=== PATIENT | female | born 1940 ===

== ENCOUNTER 2016-12-21 13:25 | Inpatient (IN) | payer MEDICAID ==
[2016-12-21 13:25] VITALS: BMI 32.8
--- NOTE | 2016-12-21 13:58 | ED PDOC ---
HPI: Female Pain Time Seen by Provider: 12/21/16 13:37 Chief Complaint (Nursing): Female Genitourinary History Per: Patient History/Exam Limitations: no limitations Additional Complaint(s): 76-year-old female, PMHx includes Anemia, Anxiety, Arthritis, Asthma, CAD, CHF, Diabetes, Hypertension, Hypercholesterolemia, Hyperlipidemia, Hypothyroidism, and Peripheral Edema, presents to the emergency department via EMS with complaints of dysuria, and urinary frequency for the past three days. Patient notes a Hx of multiple UTIs in the past. Patient is also complaining of intermittent shortness of breath for the past few days. Denies vomiting, abdominal pain, chest pain, cough, or any other associated symptoms. Past Medical History Reviewed: Historical Data, Nursing Documentation, Vital Signs Vital Signs: Last Vital Signs Temp 99.0 F 12/21/16 13:32 Pulse 63 12/21/16 13:32 Resp 24 12/21/16 13:32 BP 199/77 H 12/21/16 13:32 Pulse Ox 99 12/21/16 13:32 - Medical History PMH: Anemia, Anxiety, Arthritis, Asthma, Back Problems, CAD, CHF, Depression, Diabetes, Gastritis, HTN, Hypercholesterolemia, Hyperlipidemia, Hypothyroidism, Peripheral Edema, Chronic Kidney Disease Denies: COPD, HIV, Rheumatoid Arthritis - Surgical History Surgical History: CABG (x4), Cholecystectomy, Coronary Stent - Family History Family History: States: Unknown Family Hx - Home Medications Home Medications: Ambulatory Orders Medication Instructions Recorded Aspirin [Aspirin EC] 81 mg PO DAILY 12/18/14 Ranolazine [Ranexa] 1,000 mg PO BID 12/18/14 Atorvastatin Calcium [Lipitor] 40 mg PO HS 10/01/15 Nitroglycerin [Nitrostat] 0.4 mg PO Q5MIN PRN 10/01/15 Acetaminophen with Codeine 1 tab PO TID PRN 02/13/16 [Tylenol with Codeine #3 Tablet] Bisacodyl [Correctol] 5 mg PO DAILY 02/13/16 Carvedilol [Coreg] 3.125 mg PO Q12H 02/13/16 Loratadine [Claritin] 10 mg PO DAILY 02/13/16 Levothyroxine [Synthroid] 100 mcg PO DAILY 04/07/16 Lisinopril [Prinivil] 5 mg PO DAILY 04/07/16 ALPRAZolam [Xanax] 0.25 mg PO HS PRN 07/15/16 Albuterol 0.083% [Albuterol 0.083% 3 ml IH Q8H PRN 07/15/16 Inhal Radha (2.5 mg/3 ml) UD] Insulin Human (NPH)/Regular 25 unit SC QAM 07/15/16 [Novolin 70/30 (70/30 units/ml) 10 ml] Torsemide [Demadex] 50 mg PO Q48H 07/15/16 Albuterol/Ipratropium [Duoneb 3 1 ea IH Q4H PRN #0 neb 07/16/16 MG/3 Ml-0.5 MG/3 Ml 3 Ml] Levofloxacin [Levaquin] 500 mg PO DAILY #0 tablet 07/16/16 Promethazine DM [Phenergan DM 5 ml PO Q6H PRN #0 cup 07/16/16 Syrup] Meclizine [Meclizine*] 25 mg PO Q6 PRN #15 tab 11/16/16 Ciprofloxacin HCl [Cipro] 500 mg PO BID #20 tab 12/21/16 - Allergies Allergies/Adverse Reactions: Allergies Allergy/AdvReac Type Severity Reaction Status Date / Time kiwi Allergy Mild RASH Verified 11/16/16 12:14 morphine Allergy Mild RASH Verified 11/16/16 12:14 Penicillins Allergy Mild RASH Verified 11/16/16 12:14 pineapple Allergy Mild RASH Verified 11/16/16 12:14 watermelon Allergy Mild RASH Verified 11/16/16 12:14 Review of Systems ROS Statement: Except As Marked, All Systems Reviewed And Found Negative Constitutional: Negative for: Fever, Chills Cardiovascular: Negative for: Chest Pain Respiratory: Positive for: Shortness of Breath. Negative for: Cough Gastrointestinal: Negative for: Nausea, Vomiting, Abdominal Pain Genitourinary Female: Positive for: Dysuria, Frequency. Negative for: Vaginal Discharge, Vaginal Bleeding Musculoskeletal: Negative for: Back Pain Skin: Negative for: Rash Physical Exam - Reviewed Nursing Documentation Reviewed: Yes Vital Signs Reviewed: Yes - Physical Exam Appears: Positive for: Non-toxic, No Acute Distress Head Exam: Positive for: ATRAUMATIC, NORMOCEPHALIC Skin: Positive for: Warm, Dry. Negative for: Rash Eye Exam: Positive for: Normal appearance Neck: Positive for: Painless ROM Cardiovascular/Chest: Positive for: Regular Rate, Rhythm Respiratory: Positive for: Rales (minimal, B/L bases). Negative for: Accessory Muscle Use, Respiratory Distress Gastrointestinal/Abdominal: Positive for: Soft. Negative for: Tenderness Back: Negative for: L CVA Tenderness, R CVA Tenderness Extremity: Positive for: Normal ROM. Negative for: Pedal Edema Neurologic/Psych: Positive for: Alert, Oriented - ECG O2 Sat by Pulse Oximetry: 99 Medical Decision Making Medical Decision Making: Impression: dysuria, frequency. shortness of breath Plan: * Chest X-Ray * Urinalysis * Reassess and Disposition Scribe Attestation: Documented by Charis Bernal acting as a scribe for Deep De La Garza MD. Provider Attestation: All medical record entries made by the Scribe were at my direction and personally dictated by me. I have reviewed the chart and agree that the record accurately reflects my personal performance of the history, physical exam, medical decision making, and the department course for this patient. I have also personally directed, reviewed, and agree with the discharge instructions and disposition. Disposition - Clinical Impression Clinical Impression: UTI (urinary tract infection) - Patient ED Disposition Is Patient to be Admitted: No Counseled Patient/Family Regarding: Studies Performed, Diagnosis, Need For Followup, Rx Given - Disposition Referrals: Josh Briscoe MD [Medical Doctor] - Disposition: Routine/Home Disposition Time: 16:04 Condition: FAIR Prescriptions: Ciprofloxacin HCl [Cipro] 500 mg PO BID #20 tab Instructions: Urinary Tract Infection in Women (ED)
[2016-12-21] MEDS ORDERED: Ciprofloxacin 400mg/200ml D5W 200 ML IVPB STA (16:23)
--- NOTE | 2016-12-21 16:26 | RAD ---
HISTORY: Shortness of breath COMPARISON: 07/27/2016 TECHNIQUE: Chest PA and lateral FINDINGS: LUNGS: There is mild pulmonary venous congestion. There is no focal consolidation PLEURA: No significant pleural effusion identified. No pneumothorax apparent. CARDIOVASCULAR: The heart is normal in size. Status post CABG. OSSEOUS STRUCTURES: No significant abnormalities. VISUALIZED UPPER ABDOMEN: Normal. OTHER FINDINGS: None. IMPRESSION: Mild pulmonary venous congestion. No active pulmonary disease.
[2016-12-21] MEDS ORDERED: Ciprofloxacin 400mg/200ml D5W 200 ML IVPB ONE (16:50)
[2016-12-21 17:30] LABS: VENOUS BLOOD GAS BASE EXCESS 6.8 mmol/L (0.0-2.0); VENOUS BLOOD GAS MODE ROOM AIR; VENOUS BLOOD GAS PCO2 71 mmHg (40-60); VENOUS BLOOD PH 7.31 (7.32-7.43)
[2016-12-21 17:50] LABS: BASO # 0.1 K/uL (0.0-0.2); BASO % 0.8 % (0.0-2.0); EOS # 0.4 K/uL (0.0-0.7); EOS % 5.4 % (0.0-4.0); HEMATOCRIT 36.5 % (34.0-47.0); LYMPH # 2.1 K/uL (1.0-4.3); LYMPH % 28.6 % (20.0-40.0); MEAN CELL VOLUME 97.3 fl (81.0-99.0); MEAN CORPUSCULAR HEMOGLOBIN 31.6 pg (27.0-31.0); MEAN CORPUSCULAR HGB CONC 32.4 g/dL (33.0-37.0); MONO # 0.5 K/uL (0.0-0.8); NEUT # 4.4 K/uL (1.8-7.0); NEUT % 58.2 % (50.0-75.0); WHITE BLOOD COUNT 7.5 K/uL (4.8-10.8)
[2016-12-21 18:02] LABS: BILIRUBIN,TOTAL 0.7 mg/dl (0.2-1.3); CALCIUM 9.1 mg/dL (8.4-10.2)
[2016-12-21] MEDS ORDERED: Acetaminophen-Codeine 300/30 mg Tab ONE (18:44)
[2016-12-21] MEDS ORDERED: Acetaminophen-Codeine 300/30 mg Tab PO PRN ×3 (18:46→21:36)
[2016-12-21] MEDS ORDERED: Promethazine DM 6.25 mg-15 mg/5 ml Syrup PO PRN (21:01)
[2016-12-21] MEDS ORDERED: Albuterol-Ipratrop 3 mg / 0.5 (3 ml) UD INH PRN (21:06)
[2016-12-21] MEDS: Ciprofloxacin 400mg/200ml D5W 200 ML IVPB SCH (22:27)
[2016-12-22] MEDS: Levothyroxine 100 MCG TAB PO SCH (06:33)
[2016-12-22 07:04] LABS: BILIRUBIN,TOTAL 0.6 mg/dl (0.2-1.3); TOTAL PROTEIN 6.2 G/DL (6.3-8.2)
[2016-12-22 07:05] LABS: HEMATOCRIT 33.9 % (34.0-47.0); MEAN CELL VOLUME 95.8 fl (81.0-99.0); MEAN CORPUSCULAR HGB CONC 33.4 g/dL (33.0-37.0); RED CELL DISTRIBUTION WIDTH 13.9 % (11.5-14.5); WHITE BLOOD COUNT 7.9 K/uL (4.8-10.8)
[2016-12-22 07:23] LABS: T4 9.38 ug/dl (5.5-11.0)
[2016-12-22 07:34] LABS: THYROID STIMULATING HORMONE 3.08 mIU/ML (0.46-4.68)
[2016-12-22 07:42] LABS: POTASSIUM 5.5 MMOL/L (3.6-5.0)
[2016-12-22] MEDS: Albuterol-Ipratrop 3 mg / 0.5 (3 ml) UD INH SCH ×3 (07:48→19:54)
[2016-12-22] MEDS: Bisacodyl 5mg EC Tab PO SCH (08:41)
[2016-12-22] MEDS: Insulin Lispro Mix 75/25 100 units/ml (HumaLog) 10ml SC SCH (08:42)
[2016-12-22] MEDS: Ciprofloxacin 400mg/200ml D5W 200 ML IVPB SCH ×2 (08:51→20:32)
[2016-12-22] MEDS ORDERED: [UNRECOGNIZED DRUG - MIXTURE] SC SCH (09:00)
[2016-12-22] MEDS ORDERED: BISACODYL 5 MG PO SCH (09:00)
[2016-12-22] MEDS ORDERED: Sod Polystyrene Sulf 15 gm/60 ml Oral Susp PO ONE (10:53)
--- NOTE | 2016-12-22 14:09 | CARD ---
APPROVED REPORT EKG Measurement Heart [id number] <Conclusion> Normal sinus rhythm Normal ECG
--- NOTE | 2016-12-22 14:18 | CP.PCM.HP ---
History of Present Illness - History of Present Illness History of Present Illness: CC: Left flank pain. 76y/o F, brought to ER [facility] via EMS for evaluation of L flank pain. As per Pt; Left flank pain associated with pain during urination, feels like burning, pain of moderate to severe intensity 8:10, symptoms have been ongoing for 3 days [employer] with no relief. Aggravated symptoms: Urinary urgency, frequency , weakness, also c/o of intermittent SOB for few days, no cough. Aggravated factor: Pt is wheelchair bound. Pt denied: Fever, chills, n/v/d, syncope, CP,cough, sick contact, recent travel. 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 EKG shows: Normal sinus rhythm. CXR shows: Mild Pulmonary venous congestion. No active disease. U C-S Grand negative jered. In ER: BS= [id number]. Present on Admission - Present on Admission Any Indicators Present on Admission: Yes History of Uncontrolled Diabetes: Yes Review of Systems - Constitutional Constitutional: Weakness (L/E), Other (negative) - EENT Eyes: Loss of Vision (Left) Ears: Decreased Hearing (R side) Nose/Mouth/Throat: Other (negative) - Cardiovascular Cardiovascular: Other (negative) - Respiratory Respiratory: Dyspnea. absent: Cough - Gastrointestinal Gastrointestinal: Other (Left flank pain) - Genitourinary Genitourinary: Dysuria, Urinary Incontinence, Urinary Frequency, Urinary Urgency - Musculoskeletal Musculoskeletal: Back Pain - Integumentary Integumentary: Other (Redness in Sacrum, heels) - Neurological Neurological: Weakness (lower extremities.) - Psychiatric Psychiatric: Anxiety - Endocrine Endocrine: Other (negative) - Hematologic/Lymphatic Hematologic: Other (negative) Past Patient History - Infectious Disease Hx of Infectious Diseases: None - Past Medical History & Family History Past Medical History?: Yes Pertinent Family History: Unknown. 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 - RENAL Hx Chronic Kidney Disease: Yes - ENDOCRINE/METABOLIC Hx Endocrine Disorders: Yes Hx Diabetes Mellitus Type 2: Yes Hx Hypothyroidism: Yes - HEMATOLOGICAL/ONCOLOGICAL Hx Blood Disorders: No Hx AIDS: No Hx Anemia: Yes Hx Human Immunodeficiency Virus (HIV): No - INTEGUMENTARY Hx Dermatological Problems: No - MUSCULOSKELETAL/RHEUMATOLOGICAL Hx Musculoskeletal Disorders: Yes Hx Arthritis: Yes Hx Back Pain: Yes Hx Falls: Yes - GASTROINTESTINAL Hx Gastritis: Yes - GENITOURINARY/GYNECOLOGICAL Hx Genitourinary Disorders: Yes Hx Urinary Tract Infection: Yes - PSYCHIATRIC Hx Psychophysiologic Disorder: Yes Hx Anxiety: Yes Hx Substance Use: No - SURGICAL HISTORY Hx Cholecystectomy: Yes Hx Coronary Artery Bypass Graft: Yes (x4) Hx Coronary Stent: Yes Other/Comment: left TMA - ANESTHESIA Hx Anesthesia: Yes Hx Anesthesia Reactions: No Hx Malignant Hyperthermia: No Meds Home Medications: Home Medication List Medication Instructions Recorded Confirmed Type Ciprofloxacin HCl [Cipro] 500 mg PO BID #20 tab 12/21/16 Rx Allergies/Adverse Reactions: Allergies Allergy/AdvReac Type Severity Reaction Status Date / Time kiwi Allergy Mild RASH Verified 11/16/16 12:14 morphine Allergy Mild RASH Verified 11/16/16 12:14 Penicillins Allergy Mild RASH Verified 11/16/16 12:14 pineapple Allergy Mild RASH Verified 11/16/16 12:14 watermelon Allergy Mild RASH Verified 11/16/16 12:14 Physical Exam - Constitutional Appears: No Acute Distress, Chronically Ill - Head Exam Head Exam: NORMAL INSPECTION - Eye Exam Eye Exam: PERRL (R eye, Left eye legally blind.) - ENT Exam Additional comments: Hard of hearing R side. - Neck Exam Neck exam: Positive for: Normal Inspection - Respiratory Exam Respiratory Exam: Decreased Breath Sounds (at bases) - Cardiovascular Exam Cardiovascular Exam: REGULAR RHYTHM - GI/Abdominal Exam GI & Abdominal Exam: Normal Bowel Sounds, Soft - Extremities Exam Additional comments: L TMA, mild tenderness R-L knee. Redness R-L heel. Ecchymosis U/E. - Back Exam Back exam: tenderness (L-S) Additional comments: Sacrum redness - Neurological Exam Neurological exam: Alert, Oriented x3 Additional comments: Weakness lower extremities, moves well all extremities against gravity, decreased sensation distal legs and feet. - Psychiatric Exam Psychiatric exam: Anxious - Skin Skin Exam: Warm Results - Vital Signs Recent Vital Signs: Last Vital Signs Temp 97.5 F L 12/22/16 09:02 Pulse 61 12/22/16 09:02 Resp 20 12/22/16 09:02 BP 155/67 H 12/22/16 09:02 Pulse Ox 98 12/22/16 09:02 reviewed J.P. - Labs Result Diagrams: 12/23/16 10:05 12/23/16 10:05 Labs: reviewed J.P. - EKG Data EKG comments: Reviewed J.P. - Imaging and Cardiology Chest x-ray Status: Report reviewed by me (Cheryl) Assessment & Plan (1) UTI (urinary tract infection) Status: Acute (2) Diabetes mellitus with hyperglycemia Status: Acute (3) Chronic low back pain Status: Acute (4) COPD (chronic obstructive pulmonary disease) Status: Acute (5) Hypertension Status: Acute (6) Hypothyroidism Status: Acute (7) Hypercholesterolemia Status: Acute (8) Hx of CABG Status: Acute - Assessment and Plan (Free Text) Plan: Continue Cipro, Duoneb, Coreg, Zestril, Humalog Mix 75/25, Lipitor, Lovenox, Synthroid and rest of Tx, f/u Abd/ Pelvis U-s, Renal U-S, Urology consult appreciated. - Date & Time Date: 12/22/16 Time: 11:30
[2016-12-22] MEDS: Enoxaparin 40 mg Syringe SC SCH (14:35)
--- NOTE | 2016-12-22 15:29 | CON ---
DATE: 12/22/2016 A 76-year-old female with recurrent bladder infections. Right now, the patient has a recent culture pending and is on Cipro 500 b.i.d. Because of the recurrent UTIs, CAT scan without contrast was orde red. Awaiting for the results of the culture and the CAT scan and we will follow. Hugh Briscoe MD cc: [id number] TT: 12/22/2016 15:29:03 Confirmation # [id number] Dictation # [id number] tn
--- NOTE | 2016-12-22 15:34 | CT ---
PROCEDURE: CT Abdomen and Pelvis without intravenous contrast HISTORY: Recurrent UTI COMPARISON: Comparison is made to the previous study dated 06/30/2013 TECHNIQUE: Axial and reformatted coronal and sagittal CT images of the abdomen and pelvis were obtained without IV or oral contrast administration.. Contrast Dose: 0 Radiation dose: Total exam DLP = 1105.88 mGy-cm. FINDINGS: LOWER THORAX: Again seen are small opacities at the lung bases may represent scar tissue. LIVER: No significant interval change in the liver noted since the previous exam. GALLBLADDER AND BILE DUCTS: Status post cholecystectomy. PANCREAS: Small size pancreas. No evidence of acute pathology. SPLEEN: Unremarkable. ADRENALS: Unremarkable. No mass. KIDNEYS AND URETERS: No evidence of nephrolithiasis or hydronephrosis. Small vascular calcifications seen in the left side. VASCULATURE: Unremarkable. No aortic aneurysm. BOWEL: Unremarkable. No obstruction. No gross mural thickening. Mild constipation seen. [id number] impacted rectum and sigmoid colon. APPENDIX: There is no evidence of appendicitis. PERITONEUM: Unremarkable. No free fluid. No free air. LYMPH NODES: Unremarkable. No enlarged lymph nodes. BLADDER: Unremarkable. REPRODUCTIVE: The uterus and adnexa are not visualized. BONES: No acute fracture. OTHER FINDINGS: Diffuse vascular calcifications seen. IMPRESSION: No evidence of nephrolithiasis or hydronephrosis. Mildly distended urinary bladder. [id number] constipation. No evidence of acute pathology in the abdomen and pelvis.
[2016-12-22] MEDS: Acetaminophen-Codeine 300/30 mg Tab PO PRN (21:39)
[2016-12-23] MEDS: Albuterol-Ipratrop 3 mg / 0.5 (3 ml) UD INH SCH ×3 (07:44→19:36)
[2016-12-23] MEDS: Levothyroxine 100 MCG TAB PO SCH (07:55)
[2016-12-23] MEDS: Enoxaparin 40 mg Syringe SC SCH (08:46)
[2016-12-23] MEDS: Ciprofloxacin 400mg/200ml D5W 200 ML IVPB SCH ×2 (08:46→22:18)
[2016-12-23] MEDS: Bisacodyl 5mg EC Tab PO SCH (08:47)
[2016-12-23] MEDS: Insulin Lispro Mix 75/25 100 units/ml (HumaLog) 10ml SC SCH (08:52)
--- NOTE | 2016-12-23 09:28 | US ---
HISTORY: Recurrent UTI COMPARISON: None. TECHNIQUE: Sonographic evaluation of the retroperitoneum. FINDINGS: RIGHT KIDNEY:: Measures 9.1 x 4.7cm. Normal echogenicity. No calculus, mass, or hydronephrosis. LEFT KIDNEY:: Measures 8.3 x 3.8cm. Normal echogenicity. No calculus, mass, or hydronephrosis. AORTA:: No aneurysmal dilatation. IVC:: Unremarkable. BLADDER:: Normal wall thickness. Ureteral jets visualized. OTHER FINDINGS: None . IMPRESSION: No significant or acute findings to account for/ related to the clinical presentation.
[2016-12-23 10:24] LABS: MEAN CELL VOLUME 96.4 fl (81.0-99.0); MEAN CORPUSCULAR HEMOGLOBIN 31.6 pg (27.0-31.0); MEAN CORPUSCULAR HGB CONC 32.8 g/dL (33.0-37.0); RED CELL DISTRIBUTION WIDTH 13.9 % (11.5-14.5); WHITE BLOOD COUNT 7.3 K/uL (4.8-10.8)
[2016-12-23 10:34] LABS: CALCIUM 8.6 mg/dL (8.4-10.2); POTASSIUM 4.7 MMOL/L (3.6-5.0)
[2016-12-23] MEDS ORDERED: Dextrose 50% SYRINGE Inj (50 ml) IV PRN (11:10)
[2016-12-23] MEDS ORDERED: Glucagon Recombinant 1 mg Inj IM PRN (11:10)
[2016-12-23] MEDS: Insulin Regular 100 units/ml SC SCH ×3 (12:00→22:27)
--- NOTE | 2016-12-23 12:19 | CP.PCM.PN ---
Subjective - Date & Time of Evaluation Date of Evaluation: 12/23/16 Time of Evaluation: 00:00 - Subjective Subjective: F/U UTI Pt feeling better, still Suprapubic and LLQ discomfort. Objective - Vital Signs/Intake and Output Vital Signs (last 24 hours): Temp Pulse Resp BP Pulse Ox 97.6 F 83 20 149/76 95 12/23/16 08:20 12/23/16 08:47 12/23/16 08:20 12/23/16 08:20 12/23/16 08:20 - Medications Medications: Current Medications Acetaminophen/Codeine Phosphate (Tylenol/Codeine 300 Mg/30 Mg) 1 tab PO Q4 PRN PRN Reason: moderate pain 5-7 Last Admin: 12/22/16 21:39 Dose: 1 tab Acetaminophen/Codeine Phosphate (Tylenol/Codeine 300 Mg/30 Mg) 1 tab PO TID PRN PRN Reason: Pain, severe (8-10) Albuterol/Ipratropium (Duoneb 3 Mg/0.5 Mg (3 Ml) Ud) 3 ml INH RTID [facility] Last Admin: 12/23/16 07:44 Dose: 3 ml Albuterol/Ipratropium (Duoneb 3 Mg/0.5 Mg (3 Ml) Ud) 3 ml INH RQ4 PRN PRN Reason: Shortness of Breath Alprazolam (Xanax) 0.25 mg PO HS PRN PRN Reason: Anxiety Stop: 12/28/16 21:02 Aspirin (Ecotrin) 81 mg PO DAILY [facility] Last Admin: 12/23/16 08:46 Dose: 81 mg Atorvastatin Calcium (Lipitor) 40 mg PO HS [facility] Last Admin: 12/22/16 21:30 Dose: 40 mg Bisacodyl (Dulcolax) 5 mg PO DAILY [facility] Last Admin: 12/23/16 08:47 Dose: 5 mg Carvedilol (Coreg) 3.125 mg PO Q12H [facility] Last Admin: 12/23/16 08:47 Dose: 3.125 mg Dextrose (Glutose 15) 0 gm PO ONCE PRN; Protocol PRN Reason: Hypoglycemia Protocol Dextrose (Dextrose 50% Inj) 0 ml IV STAT PRN; Protocol PRN Reason: Hyglycemia Protocol Enoxaparin Sodium (Lovenox) 40 mg SC DAILY [facility] PRN Reason: Protocol Last Admin: 12/23/16 08:46 Dose: 40 mg Glucagon (Glucagen Diagnostic Kit) 0 mg IM STAT PRN; Protocol PRN Reason: Hypoglycemia Protocol Home Med (Bisacodyl [Correctol]) 5 mg PO DAILY [facility] Home Med (Insulin Human (Nph)/Regular [Novolin 70/30 (70/30 Units/Ml) 10 Ml]) 25 unit SC QAM [facility] Home Med (Ranolazine [Ranexa]) 1,000 mg PO BID [facility] Ciprofloxacin (Cipro 400mg/200ml Dsw) 200 mls @ 200 mls/hr IVPB Q12 [facility] Last Admin: 12/23/16 08:46 Dose: 200 mls/hr Insulin Human Regular (Humulin R) 0 units SC ACHS [facility] PRN Reason: Protocol Last Admin: 12/23/16 12:00 Dose: Not Given Insulin Lispro Protam/Lispro Human (Humalog Mix 75/25) 25 units SC QAM [facility] Last Admin: 12/23/16 08:52 Dose: 25 units Levothyroxine Sodium (Synthroid) 100 mcg PO DAILY@0630 [facility] Last Admin: 12/23/16 07:55 Dose: 100 mcg Lisinopril (Zestril) 5 mg PO DAILY [facility] Last Admin: 12/22/16 08:40 Dose: 5 mg Loratadine (Claritin) 10 mg PO DAILY [facility] Last Admin: 12/23/16 08:46 Dose: 10 mg Meclizine HCl (Antivert) 25 mg PO Q6 PRN PRN Reason: Dizziness Nitroglycerin (Nitrostat Sl Tab) 0.4 mg SL Q5MIN PRN PRN Reason: CHEST PAIN Promethazine HCl/Dextromethorphan (Phenergan Dm Syrup) 5 ml PO Q6H PRN PRN Reason: Cough Torsemide (Demadex) 50 mg PO Q48H [facility] Last Admin: 12/21/16 23:37 Dose: 50 mg - Labs Labs: 12/23/16 10:05 12/23/16 10:05 - Constitutional Appears: No Acute Distress, Chronically Ill - Head Exam Head Exam: NORMAL INSPECTION - Eye Exam Eye Exam: PERRL (R eye. Left eye legally blind) - ENT Exam Additional comments: Hard of hearing R side. - Neck Exam Neck Exam: Normal Inspection - Respiratory Exam Respiratory Exam: Decreased Breath Sounds (at bases) - Cardiovascular Exam Cardiovascular Exam: REGULAR RHYTHM - GI/Abdominal Exam GI & Abdominal Exam: Soft, Normal Bowel Sounds - Extremities Exam Extremities Exam: Tenderness (mid R-L knee.) Additional comments: L TMA, redness R-L heel, Ecchymosis U/E. - Back Exam Back Exam: tenderness (L-S) Additional comments: Sacrum redness. - Neurological Exam Neurological Exam: Alert, Oriented x3 Additional comments: Weakness lower extremities, moves well all extremities against gravity, decreased sensation distal legs and feet. - Psychiatric Exam Psychiatric exam: Anxious - Skin Skin Exam: Warm Assessment and Plan (1) UTI (urinary tract infection) Status: Acute (2) Diabetes mellitus with hyperglycemia Status: Acute (3) Chronic low back pain Status: Acute (4) COPD (chronic obstructive pulmonary disease) Status: Acute (5) Hypertension Status: Acute (6) Hypothyroidism Status: Acute (7) Hypercholesterolemia Status: Acute (8) Hx of CABG Status: Acute - Assessment and Plan (Free Text) Plan: Renal U-S: No abnormal finding. CTAbd/Pelv: Mild distended urinary bladder, no evidence of acute Pathology in abdomen or pelvis. U C-S+ Proteus Mirabilis, continue Cipro, Insulin, Duoneb, Lovenox, Coreg, Zestril and rest of Tx. f/u PT eval
--- NOTE | 2016-12-23 12:56 | US ---
HISTORY: Recurrent UTI COMPARISON: Comparison is made to the previous CT dated 12/22/2016 TECHNIQUE: Transabdominal ultrasound examination of the pelvis was obtained. FINDINGS: This study is suboptimal. The patient's bladder is not full and the patient is complaining of urine incontinence. UTERUS: The uterus was not visualized. . ENDOMETRIUM: The uterus was not visualized. CERVIX: The uterus was not visualized. RIGHT OVARY: Right ovary was not visualized . LEFT OVARY: Left ovary was not visualized. FREE FLUID: No significant free fluid noted. OTHER FINDINGS: None. IMPRESSION: Limited study. The uterus and adnexa were not visualized .
[2016-12-24] MEDS: Levothyroxine 100 MCG TAB PO SCH (06:11)
[2016-12-24] MEDS: Albuterol-Ipratrop 3 mg / 0.5 (3 ml) UD INH SCH ×3 (07:27→19:10)
[2016-12-24] MEDS: Insulin Regular 100 units/ml SC SCH ×4 (07:39→22:56)
[2016-12-24] MEDS: Ciprofloxacin 400mg/200ml D5W 200 ML IVPB SCH ×2 (09:34→20:54)
[2016-12-24] MEDS: Insulin Lispro Mix 75/25 100 units/ml (HumaLog) 10ml SC SCH (09:35)
[2016-12-24] MEDS: Enoxaparin 40 mg Syringe SC SCH (09:35)
[2016-12-24] MEDS: Bisacodyl 5mg EC Tab PO SCH (09:36)
[2016-12-24] MEDS: Acetaminophen-Codeine 300/30 mg Tab PO PRN ×2 (10:08→20:52)
--- NOTE | 2016-12-24 12:31 | CP.PCM.PN ---
Subjective - Date & Time of Evaluation Date of Evaluation: 12/24/16 Time of Evaluation: 11:40 - Subjective Subjective: mild suprapubic pain Objective - Vital Signs/Intake and Output Vital Signs (last 24 hours): Temp Pulse Resp BP Pulse Ox 97.7 F 87 18 111/68 95 12/24/16 08:04 12/24/16 11:17 12/24/16 08:04 12/24/16 09:36 12/24/16 11:17 - Medications Medications: Current Medications Acetaminophen/Codeine Phosphate (Tylenol/Codeine 300 Mg/30 Mg) 1 tab PO Q4 PRN PRN Reason: moderate pain 5-7 Last Admin: 12/24/16 10:08 Dose: 1 tab Acetaminophen/Codeine Phosphate (Tylenol/Codeine 300 Mg/30 Mg) 1 tab PO TID PRN PRN Reason: Pain, severe (8-10) Albuterol/Ipratropium (Duoneb 3 Mg/0.5 Mg (3 Ml) Ud) 3 ml INH RTID [facility] Last Admin: 12/24/16 07:27 Dose: 3 ml Albuterol/Ipratropium (Duoneb 3 Mg/0.5 Mg (3 Ml) Ud) 3 ml INH RQ4 PRN PRN Reason: Shortness of Breath Alprazolam (Xanax) 0.25 mg PO HS PRN PRN Reason: Anxiety Stop: 12/28/16 21:02 Aspirin (Ecotrin) 81 mg PO DAILY [facility] Last Admin: 12/24/16 09:36 Dose: 81 mg Atorvastatin Calcium (Lipitor) 40 mg PO HS [facility] Last Admin: 12/23/16 22:25 Dose: 40 mg Bisacodyl (Dulcolax) 5 mg PO DAILY [facility] Last Admin: 12/24/16 09:36 Dose: 5 mg Carvedilol (Coreg) 3.125 mg PO Q12H [facility] Last Admin: 12/24/16 09:36 Dose: 3.125 mg Dextrose (Glutose 15) 0 gm PO ONCE PRN; Protocol PRN Reason: Hypoglycemia Protocol Dextrose (Dextrose 50% Inj) 0 ml IV STAT PRN; Protocol PRN Reason: Hyglycemia Protocol Enoxaparin Sodium (Lovenox) 40 mg SC DAILY [facility] PRN Reason: Protocol Last Admin: 12/24/16 09:35 Dose: 40 mg Glucagon (Glucagen Diagnostic Kit) 0 mg IM STAT PRN; Protocol PRN Reason: Hypoglycemia Protocol Home Med (Bisacodyl [Correctol]) 5 mg PO DAILY [facility] Home Med (Insulin Human (Nph)/Regular [Novolin 70/30 (70/30 Units/Ml) 10 Ml]) 25 unit SC QAM [facility] Home Med (Ranolazine [Ranexa]) 1,000 mg PO BID [facility] Last Admin: 12/24/16 09:37 Dose: 1,000 mg Ciprofloxacin (Cipro 400mg/200ml Dsw) 200 mls @ 200 mls/hr IVPB Q12 [facility] Last Admin: 12/24/16 09:34 Dose: 200 mls/hr Insulin Human Regular (Humulin R) 0 units SC ACHS [facility] PRN Reason: Protocol Last Admin: 12/24/16 11:37 Dose: Not Given Insulin Lispro Protam/Lispro Human (Humalog Mix 75/25) 25 units SC QAM [facility] Last Admin: 12/24/16 09:35 Dose: 25 units Levothyroxine Sodium (Synthroid) 100 mcg PO DAILY@0630 [facility] Last Admin: 12/24/16 06:11 Dose: 100 mcg Lisinopril (Zestril) 5 mg PO DAILY [facility] Last Admin: 12/22/16 08:40 Dose: 5 mg Loratadine (Claritin) 10 mg PO DAILY [facility] Last Admin: 12/24/16 09:36 Dose: 10 mg Meclizine HCl (Antivert) 25 mg PO Q6 PRN PRN Reason: Dizziness Nitroglycerin (Nitrostat Sl Tab) 0.4 mg SL Q5MIN PRN PRN Reason: CHEST PAIN Promethazine HCl/Dextromethorphan (Phenergan Dm Syrup) 5 ml PO Q6H PRN PRN Reason: Cough Torsemide (Demadex) 50 mg PO Q48H [facility] Last Admin: 12/23/16 22:24 Dose: 50 mg - Labs Labs: 12/23/16 10:05 12/23/16 10:05 - Constitutional Appears: No Acute Distress - Head Exam Head Exam: NORMAL INSPECTION - Eye Exam Eye Exam: PERRL (R Eye , L Eye blind) - ENT Exam ENT Exam: Normal Exam - Neck Exam Neck Exam: Normal Inspection - Respiratory Exam Respiratory Exam: Decreased Breath Sounds (at bases) - Cardiovascular Exam Cardiovascular Exam: REGULAR RHYTHM - GI/Abdominal Exam GI & Abdominal Exam: Soft, Normal Bowel Sounds - Extremities Exam Extremities Exam: Tenderness (mild R L knee , L TMA , ecchymosis U/E) - Back Exam Back Exam: tenderness Additional comments: L-S - Psychiatric Exam Psychiatric exam: Anxious - Skin Skin Exam: Warm Assessment and Plan (1) UTI (urinary tract infection) Status: Acute (2) Diabetes mellitus with hyperglycemia Status: Acute (3) Chronic low back pain Status: Acute (4) COPD (chronic obstructive pulmonary disease) Status: Acute (5) Hypertension Status: Acute (6) Hypothyroidism Status: Acute (7) Hypercholesterolemia Status: Acute (8) Hx of CABG Status: Acute - Assessment and Plan (Free Text) Assessment: Continue Cipro , DuoNeb, Coreg , Demadex and rest of treatment , PT
[2016-12-24] MEDS: Pantoprazole 20 mg EC Tab PO SCH (17:17)
[2016-12-24] MEDS: Lactobacillus Acidophilus 500 MU Cap PO SCH (17:17)
[2016-12-25] MEDS: Levothyroxine 100 MCG TAB PO SCH (06:54)
[2016-12-25] MEDS: Insulin Regular 100 units/ml SC SCH ×4 (06:55→22:00)
[2016-12-25 07:20] LABS: CALCIUM 8.6 mg/dL (8.4-10.2); POTASSIUM 4.5 MMOL/L (3.6-5.0)
[2016-12-25] MEDS: Albuterol-Ipratrop 3 mg / 0.5 (3 ml) UD INH SCH ×3 (07:29→19:52)
[2016-12-25] MEDS: Ciprofloxacin 400mg/200ml D5W 200 ML IVPB SCH ×2 (09:24→23:10)
[2016-12-25] MEDS: Pantoprazole 20 mg EC Tab PO SCH (09:24)
[2016-12-25] MEDS: Lactobacillus Acidophilus 500 MU Cap PO SCH ×2 (09:24→18:42)
[2016-12-25] MEDS: Bisacodyl 5mg EC Tab PO SCH (09:26)
[2016-12-25] MEDS: Enoxaparin 40 mg Syringe SC SCH (09:27)
[2016-12-25] MEDS: Insulin Lispro Mix 75/25 100 units/ml (HumaLog) 10ml SC SCH (09:33)
--- NOTE | 2016-12-25 13:29 | CP.PCM.PN ---
Subjective - Date & Time of Evaluation Date of Evaluation: 12/25/16 Time of Evaluation: 13:20 - Subjective Subjective: F/U UTI Pt with nausea, vomiting today, no able to eat, mild epigastric pain. Objective - Vital Signs/Intake and Output Vital Signs (last 24 hours): Temp Pulse Resp BP Pulse Ox 97.9 F 61 20 96/61 L 100 12/25/16 08:18 12/25/16 09:32 12/25/16 08:18 12/25/16 09:32 12/25/16 08:18 - Medications Medications: Current Medications Acetaminophen/Codeine Phosphate (Tylenol/Codeine 300 Mg/30 Mg) 1 tab PO Q4 PRN PRN Reason: moderate pain 5-7 Last Admin: 12/24/16 20:52 Dose: 1 tab Acetaminophen/Codeine Phosphate (Tylenol/Codeine 300 Mg/30 Mg) 1 tab PO TID PRN PRN Reason: Pain, severe (8-10) Albuterol/Ipratropium (Duoneb 3 Mg/0.5 Mg (3 Ml) Ud) 3 ml INH RTID [facility] Last Admin: 12/25/16 07:29 Dose: 3 ml Albuterol/Ipratropium (Duoneb 3 Mg/0.5 Mg (3 Ml) Ud) 3 ml INH RQ4 PRN PRN Reason: Shortness of Breath Alprazolam (Xanax) 0.25 mg PO HS PRN PRN Reason: Anxiety Stop: 12/28/16 21:02 Aspirin (Ecotrin) 81 mg PO DAILY [facility] Last Admin: 12/25/16 09:24 Dose: 81 mg Atorvastatin Calcium (Lipitor) 40 mg PO HS [facility] Last Admin: 12/24/16 21:01 Dose: 40 mg Bisacodyl (Dulcolax) 5 mg PO DAILY [facility] Last Admin: 12/25/16 09:26 Dose: 5 mg Carvedilol (Coreg) 3.125 mg PO Q12H [facility] Last Admin: 12/25/16 09:32 Dose: Not Given Dextrose (Glutose 15) 0 gm PO ONCE PRN; Protocol PRN Reason: Hypoglycemia Protocol Dextrose (Dextrose 50% Inj) 0 ml IV STAT PRN; Protocol PRN Reason: Hyglycemia Protocol Docusate Sodium (Colace) 100 mg PO BID [facility] Enoxaparin Sodium (Lovenox) 40 mg SC DAILY [facility] PRN Reason: Protocol Last Admin: 12/25/16 09:27 Dose: 40 mg Glucagon (Glucagen Diagnostic Kit) 0 mg IM STAT PRN; Protocol PRN Reason: Hypoglycemia Protocol Home Med (Bisacodyl [Correctol]) 5 mg PO DAILY [facility] Home Med (Insulin Human (Nph)/Regular [Novolin 70/30 (70/30 Units/Ml) 10 Ml]) 25 unit SC QAM [facility] Home Med (Ranolazine [Ranexa]) 1,000 mg PO BID [facility] Last Admin: 12/25/16 09:26 Dose: 1,000 mg Ciprofloxacin (Cipro 400mg/200ml Dsw) 200 mls @ 200 mls/hr IVPB Q12 [facility] Last Admin: 12/25/16 09:24 Dose: 200 mls/hr Insulin Human Regular (Humulin R) 0 units SC ACHS [facility] PRN Reason: Protocol Last Admin: 12/25/16 06:55 Dose: Not Given Insulin Lispro Protam/Lispro Human (Humalog Mix 75/25) 25 units SC QAM [facility] Last Admin: 12/25/16 09:33 Dose: 25 units Lactobacillus Acidophilus (Bacid Acidophilus) 1 cap PO BID [facility] Last Admin: 12/25/16 09:24 Dose: 1 cap Lactulose (Enulose) 10 gm PO DAILY PRN PRN Reason: Constipation Levothyroxine Sodium (Synthroid) 100 mcg PO DAILY@0630 [facility] Last Admin: 12/25/16 06:54 Dose: 100 mcg Lisinopril (Zestril) 5 mg PO DAILY [facility] Last Admin: 12/22/16 08:40 Dose: 5 mg Loratadine (Claritin) 10 mg PO DAILY [facility] Last Admin: 12/25/16 09:31 Dose: 10 mg Meclizine HCl (Antivert) 25 mg PO Q6 PRN PRN Reason: Dizziness Nitroglycerin (Nitrostat Sl Tab) 0.4 mg SL Q5MIN PRN PRN Reason: CHEST PAIN Ondansetron HCl (Zofran Inj) 4 mg IVP Q6 PRN PRN Reason: Nausea/Vomiting Last Admin: 12/25/16 09:38 Dose: 4 mg Pantoprazole Sodium (Protonix Ec Tab) 20 mg PO DAILY [facility] Last Admin: 12/25/16 09:24 Dose: 20 mg Promethazine HCl/Dextromethorphan (Phenergan Dm Syrup) 5 ml PO Q6H PRN PRN Reason: Cough Torsemide (Demadex) 50 mg PO QOD [facility] - Labs Labs: 12/23/16 10:05 12/25/16 05:30 - Constitutional Appears: No Acute Distress - Head Exam Head Exam: NORMAL INSPECTION - Eye Exam Eye Exam: PERRL (R eye, L eye blind) - ENT Exam ENT Exam: Normal Exam - Neck Exam Neck Exam: Normal Inspection - Respiratory Exam Respiratory Exam: Decreased Breath Sounds (at bases) - Cardiovascular Exam Cardiovascular Exam: REGULAR RHYTHM - GI/Abdominal Exam GI & Abdominal Exam: Soft, Tenderness (mild epigastric), Normal Bowel Sounds. absent: Guarding, Rebound - Extremities Exam Extremities Exam: Tenderness (mild R-L knee, L TMA, ecchymosis U/E) - Back Exam Back Exam: tenderness (L-S) - Neurological Exam Neurological Exam: Alert, Oriented x3 - Psychiatric Exam Psychiatric exam: Anxious - Skin Skin Exam: Warm Assessment and Plan (1) UTI (urinary tract infection) Status: Acute (2) Diabetes mellitus with hyperglycemia Status: Acute (3) Chronic low back pain Status: Acute (4) COPD (chronic obstructive pulmonary disease) Status: Acute (5) Hypertension Status: Acute (6) Hypothyroidism Status: Acute (7) Hypercholesterolemia Status: Acute (8) Hx of CABG Status: Acute - Assessment and Plan (Free Text) Plan: Pt begins Zofran, continue Cipro, Duoneb, Coreg, Zestril, Insulin and rest of Tx.
[2016-12-25] MEDS: Lactulose 10 gm/15 ml Syrup PO PRN (14:42)
--- NOTE | 2016-12-25 16:51 | RAD ---
HISTORY: nausea, vomiting COMPARISON: No prior. FINDINGS: BOWEL: No abnormally dilated bowel loops. No evidence of bowel obstruction. Moderate retained feces. BONES: Probable old healed fractures right medial superior and inferior pubic rami. OTHER FINDINGS: None. IMPRESSION: No evidence of bowel obstruction. Retained feces.
[2016-12-26] MEDS: Levothyroxine 100 MCG TAB PO SCH (07:04)
[2016-12-26] MEDS: Insulin Regular 100 units/ml SC SCH ×4 (07:05→22:20)
[2016-12-26] MEDS: Albuterol-Ipratrop 3 mg / 0.5 (3 ml) UD INH SCH ×3 (07:31→19:18)
[2016-12-26] MEDS: Ciprofloxacin 400mg/200ml D5W 200 ML IVPB SCH ×2 (09:25→22:03)
[2016-12-26] MEDS: Lactulose 10 gm/15 ml Syrup PO PRN (09:28)
[2016-12-26] MEDS: Bisacodyl 5mg EC Tab PO SCH (09:28)
[2016-12-26] MEDS: Insulin Lispro Mix 75/25 100 units/ml (HumaLog) 10ml SC SCH (09:28)
[2016-12-26] MEDS: Enoxaparin 40 mg Syringe SC SCH (09:29)
[2016-12-26] MEDS: Pantoprazole 20 mg EC Tab PO SCH (09:29)
[2016-12-26] MEDS: Lactobacillus Acidophilus 500 MU Cap PO SCH ×2 (09:31→17:14)
[2016-12-26] MEDS: Alum-Mag Hydrox-Simethicone Susp (30 mL) PO PRN (18:21)
--- NOTE | 2016-12-26 19:30 | CP.PCM.PN ---
Subjective - Date & Time of Evaluation Date of Evaluation: 12/27/16 Time of Evaluation: 15:30 - Subjective Subjective: Mild suprapubic tenderness Objective - Vital Signs/Intake and Output Vital Signs (last 24 hours): Temp Pulse Resp BP Pulse Ox 98.5 F 65 18 124/67 92 L 12/26/16 17:00 12/26/16 17:00 12/26/16 17:00 12/26/16 17:00 12/26/16 17:00 - Medications Medications: Current Medications Acetaminophen/Codeine Phosphate (Tylenol/Codeine 300 Mg/30 Mg) 1 tab PO Q4 PRN PRN Reason: moderate pain 5-7 Last Admin: 12/24/16 20:52 Dose: 1 tab Acetaminophen/Codeine Phosphate (Tylenol/Codeine 300 Mg/30 Mg) 1 tab PO TID PRN PRN Reason: Pain, severe (8-10) Al Hydrox/Mg Hydrox/Simethicone (Maalox Plus 30 Ml) 30 ml PO Q4 PRN PRN Reason: Indigestion / Heartburn Last Admin: 12/26/16 18:21 Dose: 30 ml Albuterol/Ipratropium (Duoneb 3 Mg/0.5 Mg (3 Ml) Ud) 3 ml INH RTID [facility] Last Admin: 12/26/16 19:18 Dose: Not Given Albuterol/Ipratropium (Duoneb 3 Mg/0.5 Mg (3 Ml) Ud) 3 ml INH RQ4 PRN PRN Reason: Shortness of Breath Alprazolam (Xanax) 0.25 mg PO HS PRN PRN Reason: Anxiety Stop: 12/28/16 21:02 Aspirin (Ecotrin) 81 mg PO DAILY [facility] Last Admin: 12/26/16 09:28 Dose: 81 mg Atorvastatin Calcium (Lipitor) 40 mg PO HS [facility] Last Admin: 12/25/16 23:26 Dose: 40 mg Bisacodyl (Dulcolax) 5 mg PO DAILY [facility] Last Admin: 12/26/16 09:28 Dose: 5 mg Carvedilol (Coreg) 3.125 mg PO Q12H [facility] Last Admin: 12/26/16 12:48 Dose: 3.125 mg Dextrose (Glutose 15) 0 gm PO ONCE PRN; Protocol PRN Reason: Hypoglycemia Protocol Dextrose (Dextrose 50% Inj) 0 ml IV STAT PRN; Protocol PRN Reason: Hyglycemia Protocol Docusate Sodium (Colace) 100 mg PO BID [facility] Last Admin: 12/26/16 17:11 Dose: 100 mg Enoxaparin Sodium (Lovenox) 40 mg SC DAILY [facility] PRN Reason: Protocol Last Admin: 12/26/16 09:29 Dose: 40 mg Glucagon (Glucagen Diagnostic Kit) 0 mg IM STAT PRN; Protocol PRN Reason: Hypoglycemia Protocol Home Med (Bisacodyl [Correctol]) 5 mg PO DAILY [facility] Home Med (Insulin Human (Nph)/Regular [Novolin 70/30 (70/30 Units/Ml) 10 Ml]) 25 unit SC QAM [facility] Home Med (Ranolazine [Ranexa]) 1,000 mg PO BID [facility] Last Admin: 12/26/16 17:12 Dose: 1,000 mg Ciprofloxacin (Cipro 400mg/200ml Dsw) 200 mls @ 200 mls/hr IVPB Q12 [facility] Last Admin: 12/26/16 09:25 Dose: 200 mls/hr Insulin Human Regular (Humulin R) 0 units SC ACHS [facility] PRN Reason: Protocol Last Admin: 12/26/16 17:12 Dose: Not Given Insulin Lispro Protam/Lispro Human (Humalog Mix 75/25) 25 units SC QAM [facility] Last Admin: 12/26/16 09:28 Dose: 25 units Lactobacillus Acidophilus (Bacid Acidophilus) 1 cap PO BID [facility] Last Admin: 12/26/16 17:14 Dose: 1 cap Lactulose (Enulose) 10 gm PO DAILY PRN PRN Reason: Constipation Last Admin: 12/26/16 09:28 Dose: 10 gm Levothyroxine Sodium (Synthroid) 100 mcg PO DAILY@0630 [facility] Last Admin: 12/26/16 07:04 Dose: 100 mcg Lisinopril (Zestril) 5 mg PO DAILY [facility] Last Admin: 12/22/16 08:40 Dose: 5 mg Loratadine (Claritin) 10 mg PO DAILY [facility] Last Admin: 12/26/16 09:26 Dose: 10 mg Meclizine HCl (Antivert) 25 mg PO Q6 PRN PRN Reason: Dizziness Nitroglycerin (Nitrostat Sl Tab) 0.4 mg SL Q5MIN PRN PRN Reason: CHEST PAIN Last Admin: 12/26/16 09:44 Dose: 0.4 mg Ondansetron HCl (Zofran Inj) 4 mg IVP Q6 PRN PRN Reason: Nausea/Vomiting Last Admin: 12/25/16 09:38 Dose: 4 mg Pantoprazole Sodium (Protonix Ec Tab) 20 mg PO DAILY [facility] Last Admin: 12/26/16 09:29 Dose: 20 mg Promethazine HCl/Dextromethorphan (Phenergan Dm Syrup) 5 ml PO Q6H PRN PRN Reason: Cough Torsemide (Demadex) 50 mg PO QOD [facility] - Labs Labs: 12/23/16 10:05 12/25/16 05:30 - Constitutional Appears: No Acute Distress - Head Exam Head Exam: NORMAL INSPECTION - Eye Exam Eye Exam: PERRL (R Eye, L Eye blind) - ENT Exam ENT Exam: Normal Exam - Neck Exam Neck Exam: Normal Inspection - Respiratory Exam Respiratory Exam: Decreased Breath Sounds (at bases), Rhonchi (few at bases) - Cardiovascular Exam Cardiovascular Exam: REGULAR RHYTHM - GI/Abdominal Exam GI & Abdominal Exam: Soft, Normal Bowel Sounds - Extremities Exam Extremities Exam: Tenderness (mild R L knee , L TMA , redness R L heel , ecchymosis U/E) - Back Exam Back Exam: tenderness (L-S , sacrum redness) - Neurological Exam Neurological Exam: Alert, Oriented x3 Additional comments: weakness L/E ,moves well extremities against gravity , decreased sensation distal legs, feet - Psychiatric Exam Psychiatric exam: Anxious - Skin Skin Exam: Warm Assessment and Plan (1) UTI (urinary tract infection) Status: Acute (2) Diabetes mellitus with hyperglycemia Status: Acute (3) Chronic low back pain Status: Acute (4) COPD (chronic obstructive pulmonary disease) Status: Acute (5) Hypertension Status: Acute (6) Hypothyroidism Status: Acute (7) Hypercholesterolemia Status: Acute (8) Hx of CABG Status: Acute - Assessment and Plan (Free Text) Plan: Continue Cipro , Coreg , Torsemide , Duoneb and rest of treatment
[2016-12-27] MEDS: Levothyroxine 100 MCG TAB PO SCH (06:12)
[2016-12-27] MEDS: Albuterol-Ipratrop 3 mg / 0.5 (3 ml) UD INH SCH ×3 (07:51→20:24)
[2016-12-27] MEDS: Ciprofloxacin 400mg/200ml D5W 200 ML IVPB SCH ×2 (09:06→21:13)
[2016-12-27] MEDS: Enoxaparin 40 mg Syringe SC SCH (09:11)
[2016-12-27] MEDS: Bisacodyl 5mg EC Tab PO SCH (09:11)
[2016-12-27] MEDS: Pantoprazole 20 mg EC Tab PO SCH (09:12)
[2016-12-27] MEDS: Lactobacillus Acidophilus 500 MU Cap PO SCH ×2 (09:14→17:00)
[2016-12-27] MEDS: Lactulose 10 gm/15 ml Syrup PO PRN (09:16)
[2016-12-27] MEDS: Insulin Regular 100 units/ml SC SCH ×4 (10:17→21:17)
[2016-12-27] MEDS: Insulin Lispro Mix 75/25 100 units/ml (HumaLog) 10ml SC SCH (10:19)
[2016-12-28] MEDS: Levothyroxine 100 MCG TAB PO SCH (06:35)
[2016-12-28] MEDS: Albuterol-Ipratrop 3 mg / 0.5 (3 ml) UD INH SCH ×2 (08:22→13:17)
[2016-12-28] MEDS ORDERED: Magnesium Hydroxide Susp 30 ml UD PO SCH (09:15)
[2016-12-28] MEDS: Ciprofloxacin 400mg/200ml D5W 200 ML IVPB SCH (09:18)
[2016-12-28] MEDS: Bisacodyl 5mg EC Tab PO SCH (09:18)
[2016-12-28] MEDS: Lactulose 10 gm/15 ml Syrup PO PRN (09:19)
[2016-12-28] MEDS: Insulin Lispro Mix 75/25 100 units/ml (HumaLog) 10ml SC SCH (09:20)
[2016-12-28] MEDS: Enoxaparin 40 mg Syringe SC SCH (09:21)
[2016-12-28] MEDS: Insulin Regular 100 units/ml SC SCH ×2 (09:21→13:07)
[2016-12-28] MEDS: Pantoprazole 20 mg EC Tab PO SCH (09:22)
[2016-12-28] MEDS: Alum-Mag Hydrox-Simethicone Susp (30 mL) PO PRN (09:35)
[2016-12-28] MEDS: Lactobacillus Acidophilus 500 MU Cap PO SCH (09:35)
[2016-12-28 09:36] VITALS: BP 156/67; PULSE 68
[2016-12-28 10:51] LABS: CALCIUM 8.9 mg/dL (8.4-10.2); POTASSIUM 4.6 MMOL/L (3.6-5.0)
[2016-12-28 11:23] VITALS: RESP 18; TEMP 98; O2SAT 97
--- NOTE | 2016-12-28 16:50 | CP.PCM.PN ---
Subjective - Date & Time of Evaluation Date of Evaluation: 12/28/16 Time of Evaluation: 09:00 - Subjective Subjective: F/U UTI. Pt c/o of mild R-L knee pain, minimal suprapubic discomfort. Objective - Vital Signs/Intake and Output Vital Signs (last 24 hours): Temp Pulse Resp BP Pulse Ox 98 F 68 18 156/67 H 97 12/28/16 09:00 12/28/16 09:20 12/28/16 09:00 12/28/16 09:20 12/28/16 09:00 - Medications Medications: Current Medications Acetaminophen/Codeine Phosphate (Tylenol/Codeine 300 Mg/30 Mg) 1 tab PO Q4 PRN PRN Reason: moderate pain 5-7 Last Admin: 12/24/16 20:52 Dose: 1 tab Acetaminophen/Codeine Phosphate (Tylenol/Codeine 300 Mg/30 Mg) 1 tab PO TID PRN PRN Reason: Pain, severe (8-10) Al Hydrox/Mg Hydrox/Simethicone (Maalox Plus 30 Ml) 30 ml PO Q4 PRN PRN Reason: Indigestion / Heartburn Last Admin: 12/28/16 09:35 Dose: 30 ml Albuterol/Ipratropium (Duoneb 3 Mg/0.5 Mg (3 Ml) Ud) 3 ml INH RTID [facility] Last Admin: 12/28/16 13:17 Dose: 3 ml Albuterol/Ipratropium (Duoneb 3 Mg/0.5 Mg (3 Ml) Ud) 3 ml INH RQ4 PRN PRN Reason: Shortness of Breath Alprazolam (Xanax) 0.25 mg PO HS PRN PRN Reason: Anxiety Stop: 12/28/16 21:02 Last Admin: 12/26/16 23:39 Dose: 0.25 mg Aspirin (Ecotrin) 81 mg PO DAILY [facility] Last Admin: 12/28/16 09:19 Dose: 81 mg Atorvastatin Calcium (Lipitor) 40 mg PO HS [facility] Last Admin: 12/27/16 21:18 Dose: 40 mg Bisacodyl (Dulcolax) 5 mg PO DAILY [facility] Last Admin: 12/28/16 09:18 Dose: 5 mg Carvedilol (Coreg) 3.125 mg PO Q12H [facility] Last Admin: 12/28/16 09:20 Dose: 3.125 mg Dextrose (Glutose 15) 0 gm PO ONCE PRN; Protocol PRN Reason: Hypoglycemia Protocol Dextrose (Dextrose 50% Inj) 0 ml IV STAT PRN; Protocol PRN Reason: Hyglycemia Protocol Docusate Sodium (Colace) 100 mg PO BID [facility] Last Admin: 12/28/16 09:20 Dose: 100 mg Enoxaparin Sodium (Lovenox) 40 mg SC DAILY [facility] PRN Reason: Protocol Last Admin: 12/28/16 09:21 Dose: 40 mg Glucagon (Glucagen Diagnostic Kit) 0 mg IM STAT PRN; Protocol PRN Reason: Hypoglycemia Protocol Home Med (Bisacodyl [Correctol]) 5 mg PO DAILY [facility] Home Med (Insulin Human (Nph)/Regular [Novolin 70/30 (70/30 Units/Ml) 10 Ml]) 25 unit SC QAM [facility] Home Med (Ranolazine [Ranexa]) 1,000 mg PO BID [facility] Last Admin: 12/28/16 09:19 Dose: 1,000 mg Ciprofloxacin (Cipro 400mg/200ml Dsw) 200 mls @ 200 mls/hr IVPB Q12 [facility] Last Admin: 12/28/16 09:18 Dose: 200 mls/hr Insulin Human Regular (Humulin R) 0 units SC ACHS [facility] PRN Reason: Protocol Last Admin: 12/28/16 13:07 Dose: Not Given Insulin Lispro Protam/Lispro Human (Humalog Mix 75/25) 25 units SC QAM [facility] Last Admin: 12/28/16 09:20 Dose: 25 units Lactobacillus Acidophilus (Bacid Acidophilus) 1 cap PO BID [facility] Last Admin: 12/28/16 09:35 Dose: 1 cap Lactulose (Enulose) 10 gm PO DAILY PRN PRN Reason: Constipation Last Admin: 12/28/16 09:19 Dose: 10 gm Levothyroxine Sodium (Synthroid) 100 mcg PO DAILY@0630 [facility] Last Admin: 12/28/16 06:35 Dose: 100 mcg Lisinopril (Zestril) 5 mg PO DAILY [facility] Last Admin: 12/22/16 08:40 Dose: 5 mg Loratadine (Claritin) 10 mg PO DAILY [facility] Last Admin: 12/28/16 09:19 Dose: 10 mg Magnesium Hydroxide (Milk Of Magnesia) 30 ml PO DAILY [facility] Last Admin: 12/28/16 09:36 Dose: 30 ml Meclizine HCl (Antivert) 25 mg PO Q6 PRN PRN Reason: Dizziness Nitroglycerin (Nitrostat Sl Tab) 0.4 mg SL Q5MIN PRN PRN Reason: CHEST PAIN Last Admin: 12/26/16 09:44 Dose: 0.4 mg Ondansetron HCl (Zofran Inj) 4 mg IVP Q6 PRN PRN Reason: Nausea/Vomiting Last Admin: 12/26/16 19:35 Dose: 4 mg Pantoprazole Sodium (Protonix Ec Tab) 20 mg PO DAILY [facility] Last Admin: 12/28/16 09:22 Dose: 20 mg Promethazine HCl/Dextromethorphan (Phenergan Dm Syrup) 5 ml PO Q6H PRN PRN Reason: Cough Torsemide (Demadex) 50 mg PO QOD [facility] - Labs Labs: 12/23/16 10:05 12/28/16 10:25 - Constitutional Appears: No Acute Distress - Head Exam Head Exam: NORMAL INSPECTION - Eye Exam Eye Exam: PERRL (R eye, L eye blind.) - ENT Exam ENT Exam: Normal Exam - Neck Exam Neck Exam: Normal Inspection - Respiratory Exam Respiratory Exam: Decreased Breath Sounds (at bases) - Cardiovascular Exam Cardiovascular Exam: REGULAR RHYTHM - GI/Abdominal Exam GI & Abdominal Exam: Soft, Normal Bowel Sounds - Back Exam Back Exam: tenderness (Mild R-L knee, L TMA.) - Neurological Exam Neurological Exam: Alert, Oriented x3 Additional comments: Weakness L/E, moves well all extremities against gravity, decreased sensation distal legs and feet. - Psychiatric Exam Psychiatric exam: Anxious - Skin Skin Exam: Warm Assessment and Plan (1) UTI (urinary tract infection) Assessment & Plan: Improved. Status: Acute (2) Diabetes mellitus with hyperglycemia Status: Acute (3) Chronic low back pain Status: Acute (4) COPD (chronic obstructive pulmonary disease) Status: Acute (5) Hypertension Status: Acute (6) Hypothyroidism Status: Acute (7) Hypercholesterolemia Status: Acute (8) Hx of CABG Status: Acute - Assessment and Plan (Free Text) Plan: Pt improved and stable to be discharged to [facility] at [facility].
== END 2016-12-28 18:39 | DRG 320 ==
LOC: H.ER 13:25 → H.ERHOLD 16:24 → H.MEDSURG1 20:40 → OBSVTOIN 12-22 11:38
PROVIDERS: ADMIT Internal Medicine Pulmonary Disease; ATTEND Internal Medicine Pulmonary Disease
DX: N39.0 Urinary tract infection, site not specified (principal); E11.22 Type 2 diabetes mellitus with diabetic chronic kidney disease; I13.0 Hypertensive heart and chronic kidney disease with heart failure and stage 1 through stage 4 chronic kidney disease, or unspecified chronic kidney disease; E11.65 Type 2 diabetes mellitus with hyperglycemia; I50.9 Heart failure, unspecified; J44.9 Chronic obstructive pulmonary disease, unspecified; N18.9 Chronic kidney disease, unspecified; E03.9 Hypothyroidism, unspecified; E78.00 Pure hypercholesterolemia, unspecified; E78.5 Hyperlipidemia, unspecified; G89.29 Other chronic pain; I25.10 Atherosclerotic heart disease of native coronary artery without angina pectoris; J45.909 Unspecified asthma, uncomplicated; Z95.1 Presence of aortocoronary bypass graft; Z95.5 Presence of coronary angioplasty implant and graft; Z99.3 Dependence on wheelchair; F32.9 Major depressive disorder, single episode, unspecified; K29.70 Gastritis, unspecified, without bleeding; M19.90 Unspecified osteoarthritis, unspecified site; F41.9 Anxiety disorder, unspecified; D64.9 Anemia, unspecified; Z88.5 Allergy status to narcotic agent; Z88.0 Allergy status to penicillin; Z91.018 Allergy to other foods

== ENCOUNTER 2017-01-12 16:47 | Inpatient (IN) | payer MEDICAID ==
[2017-01-12 16:47] VITALS: BMI 32.8
[2017-01-12] MEDS ORDERED: Albuterol-Ipratrop 3 mg / 0.5 (3 ml) UD INH STA (17:28)
--- NOTE | 2017-01-12 17:40 | ED PDOC ---
HPI: General Adult Time Seen by Provider: 01/12/17 17:04 Chief Complaint (Nursing): Female Genitourinary Chief Complaint (Provider): UTI, cough History Per: Patient Additional Complaint(s): Pt. presents with who states pt. was recent admitted to [facility] for UTI. Pt. is currently in [facility]. As per RN report pt. has begun to cough a lot more and developed wheezing. Pt. also c/o back pain and nausea. Denies diarrhea , rash, chest pain. Past Medical History Reviewed: Historical Data, Nursing Documentation, Vital Signs Vital Signs: Last Vital Signs Temp 100.3 F H 01/12/17 16:51 Pulse 87 01/12/17 16:51 Resp 16 01/12/17 16:51 BP 196/76 H 01/12/17 16:51 Pulse Ox 92 L 01/12/17 17:42 - Medical History PMH: Anemia, Anxiety, Arthritis, Asthma, Back Problems, CAD, CHF, Depression, Diabetes, Gastritis, HTN, Hypercholesterolemia, Hyperlipidemia, Hypothyroidism, Peripheral Edema, Chronic Kidney Disease Denies: COPD, HIV, Rheumatoid Arthritis - Surgical History Surgical History: CABG (x4), Cholecystectomy, Coronary Stent - Family History Family History: States: No Known Family Hx - Home Medications Home Medications: Ambulatory Orders Medication Instructions Recorded ALPRAZolam [Xanax] 0.25 mg PO DAILY PRN 01/12/17 Acetaminophen [Tylenol 325mg tab] 650 mg PO Q4H PRN 01/12/17 Acetaminophen [Tylenol 325mg tab] 650 mg PO Q4H PRN 01/12/17 Albuterol/Ipratropium [Duoneb 3 3 ml IH Q4H PRN 01/12/17 mg/0.5 mg (3 ml) UD] Albuterol/Ipratropium [Duoneb 3 3 ml IH TID 01/12/17 mg/0.5 mg (3 ml) UD] Aspirin [Ecotrin] 81 mg PO DAILY 01/12/17 Bisacodyl [Women's Laxative] 5 mg PO DAILY 01/12/17 Carvedilol [Coreg] 3.125 mg PO DAILY 01/12/17 Cefpodoxime [Vantin] 200 mg PO Q12H 01/12/17 Docusate [Colace] 200 mg PO BID 01/12/17 Enoxaparin [Lovenox] 40 unit SC DAILY 01/12/17 Insulin Human (NPH)/Regular 25 unit SC DAILY 01/12/17 [Novolin 70/30 (70/30 units/ml) 10 ml] Insulin Human Regular [HumuLIN R] 2 - 6 unit SC QID 01/12/17 Lactulose [Generlac] 10 gm PO DAILY PRN 01/12/17 Lactulose [Generlac] 30 ml PO DAILY 01/12/17 Levothyroxine [Synthroid] 100 mcg PO DAILY 01/12/17 Meclizine [Meclizine*] 25 mg PO Q6H PRN 01/12/17 Mineral Oil [Fleet Mineral Oil 135 ml TN Q72H PRN 01/12/17 Enema] Nitroglycerin [Nitrostat] 0.4 mg SL Q5MIN PRN 01/12/17 Promethazine DM [Phenergan DM 5 ml PO Q6H PRN 01/12/17 Syrup] Torsemide [Demadex] 40 mg PO TUFR 01/12/17 - Allergies Allergies/Adverse Reactions: Allergies Allergy/AdvReac Type Severity Reaction Status Date / Time kiwi Allergy Mild RASH Verified 01/12/17 16:51 morphine Allergy Mild RASH Verified 01/12/17 16:51 Penicillins Allergy Mild RASH Verified 01/12/17 16:51 pineapple Allergy Mild RASH Verified 01/12/17 16:51 watermelon Allergy Mild RASH Verified 01/12/17 16:51 Review of Systems ROS Statement: Except As Marked, All Systems Reviewed And Found Negative Constitutional: Positive for: Fever Respiratory: Positive for: Cough Physical Exam - Reviewed Nursing Documentation Reviewed: Yes Vital Signs Reviewed: Yes - Physical Exam Appears: Positive for: Well, Non-toxic, No Acute Distress Head Exam: Positive for: ATRAUMATIC, NORMAL INSPECTION, NORMOCEPHALIC Skin: Positive for: Normal Color, Warm. Negative for: Rash Eye Exam: Positive for: EOMI, Normal appearance, PERRL ENT: Positive for: Normal ENT Inspection Neck: Positive for: Normal, Painless ROM Cardiovascular/Chest: Positive for: Regular Rate, Rhythm Respiratory: Positive for: Crackles (LLL), Wheezing (b/l expiratory wheezing). Negative for: Accessory Muscle Use, Rales, Respiratory Distress Gastrointestinal/Abdominal: Positive for: Normal Exam, Bowel Sounds, Soft. Negative for: Tenderness Back: Positive for: Normal Inspection. Negative for: L CVA Tenderness, R CVA Tenderness Extremity: Positive for: Normal ROM Neurologic/Psych: Positive for: Alert, Oriented (x2 (person, place)). Negative for: Aphasia, Facial Droop - Laboratory Results Result Diagrams: 01/12/17 18:25 01/12/17 18:25 - ECG ECG: Positive for: Interpreted By Me ECG Rhythm: Positive for: Sinus Rhythm O2 Sat by Pulse Oximetry: 92 Pulse Ox Interpretation: Abnormal - Radiology X-Ray: Interpreted by Me (CXR; read by PA and Dr. Liu) X-Ray Interpretation: Other (possible LLL infiltrate) - Progress ED Course And Treament: Labs ordered. DuoNeb x 3, solu-medrol 60mg IV, blood culture x 2, urine culture ordered. Case d/w Dr. Oliver and arrangements made for admission. Requests that Rocephin IV, zithromax IV be given. Disposition - Clinical Impression Clinical Impression: Pneumonia - Patient ED Disposition Is Patient to be Admitted: Yes - Disposition Disposition: Routine/Home Disposition Time: 20:10 Condition: STABLE
[2017-01-12 18:32] LABS: BASO # 0.1 K/uL (0.0-0.2); BASO % 0.6 % (0.0-2.0); EOS # 0.5 K/uL (0.0-0.7); EOS % 3.7 % (0.0-4.0); HEMATOCRIT 33.9 % (34.0-47.0); LYMPH % 8.2 % (20.0-40.0); MEAN CELL VOLUME 95.3 fl (81.0-99.0); MEAN CORPUSCULAR HEMOGLOBIN 31.2 pg (27.0-31.0); MEAN CORPUSCULAR HGB CONC 32.7 g/dL (33.0-37.0); MEAN PLATELET VOLUME 7.8 fl (7.2-11.7); MONO # 0.6 K/uL (0.0-0.8); MONO % 4.6 % (0.0-10.0); NEUT # 10.4 K/uL (1.8-7.0); NEUT % 82.9 % (50.0-75.0); PLATELET COUNT 227 K/uL (130-400); RED CELL DISTRIBUTION WIDTH 13.7 % (11.5-14.5); WHITE BLOOD COUNT 12.6 K/uL (4.8-10.8)
[2017-01-12 18:33] LABS: VENOUS BLOOD GAS BASE EXCESS 12.5 mmol/L (0.0-2.0); VENOUS BLOOD GAS PCO2 64 mmHg (40-60)
--- NOTE | 2017-01-12 18:35 | CT ---
PROCEDURE: CT Abdomen and Pelvis without intravenous contrast HISTORY: UTI, back pain COMPARISON: 12/22/2016. TECHNIQUE: Unenhanced study. Neither oral nor intravenous contrast administered. Radiation dose: Total exam DLP = 1038.97 mGy-cm. This CT exam was performed using one or more of the following dose reduction techniques: Automated exposure control, adjustment of the mA and/or kV according to patient size, and/or use of iterative reconstruction technique. FINDINGS: LOWER THORAX: Unremarkable. LIVER: Hepatic steatosis. No focal masses. No intrahepatic bile duct dilatation or perihepatic ascites. GALLBLADDER AND BILE DUCTS: Status post cholecystectomy. No abnormality is seen in the gallbladder fossa. PANCREAS: Unremarkable. No gross lesion or ductal dilatation. SPLEEN: Unremarkable. ADRENALS: Unremarkable. No mass. KIDNEYS AND URETERS: Unremarkable. No hydronephrosis. No solid mass. VASCULATURE: Unremarkable. No aortic aneurysm. BOWEL: Unremarkable. No obstruction. No gross mural thickening. Incidental finding(s):diffuse thickening of the rectal wall. Without an associated inflammatory component. No focal rectal abnormalities. APPENDIX: No abnormalities to suggest acute appendicitis. No right lower quadrant inflammatory processes identified. PERITONEUM: Unremarkable. No free fluid. No free air. LYMPH NODES: Unremarkable. No enlarged lymph nodes. BLADDER: Bladder wall thickening. In part this may be due to decompressed state. However cystitis should also be considered. REPRODUCTIVE: Uterus and adnexa are not visualized presumed prior hysterectomy. BONES: No acute fracture. OTHER FINDINGS: None. IMPRESSION: Bladder wall thickening suspicious for cystitis. No upper tract abnormalities.
[2017-01-12 18:45] LABS: ALB/GLOB RATIO 0.9 (1.0-2.1); ALKALINE PHOSPHATASE 102 U/L (38-126); ALT/SGPT 30 U/L (9-52); AST/SGOT 28 U/L (14-36); BILIRUBIN,TOTAL 0.5 mg/dl (0.2-1.3); BLOOD UREA NITROGEN 16 mg/dl (7-17); CALCIUM 9.2 mg/dL (8.4-10.2); CARBON DIOXIDE 32 mmol/L (22-30); CHLORIDE 99 mmol/L (98-107); GFR AFRICAN-AMERICAN > 60; GLUCOSE,RANDOM 150 mg/dL (65-105); SODIUM 141 mmol/l (132-148)
[2017-01-12] MEDS ORDERED: Albuterol-Ipratrop 3 mg / 0.5 (3 ml) UD ONE (18:58)
[2017-01-12 19:08] LABS: RBC URINE 1 /hpf (0-3); URINE BILIRUBIN NEGATIVE (NEGATIVE); URINE BLOOD NEGATIVE (NEGATIVE); URINE COLOR YELLOW (YELLOW); URINE GLUCOSE (UA) NEG (Normal); URINE KETONE NEGATIVE (NEGATIVE); URINE LEUKOCYTE ESTERASE NEG Leu/uL (Negative); URINE PROTEIN 100 mg/dL (NEGATIVE); URINE UROBILINOGEN 0.2-1.0 mg/dL (0.2-1.0); WBC URINE 1 /hpf (0-5)
[2017-01-12 19:22] LABS: EOSINOPHIL 5 % (0-7); NEUTROPHIL 80 % (42-75); REACTIVE LYMPHOCYTES 1 % (0-0); TOTAL CELLS COUNTED 100
[2017-01-12] MEDS ORDERED: Azithromycin 500 MG in Sodium Chloride 0.9% 250 ML IVPB STA (19:33)
[2017-01-12] MEDS ORDERED: cefTRIAXone (Rocephin) 1 gm Inj ONE (20:07)
[2017-01-12] MEDS ORDERED: Lactulose 10 gm/15 ml (Rectal Use) PR PRN (23:36)
[2017-01-12] MEDS ORDERED: Albuterol-Ipratrop 3 mg / 0.5 (3 ml) UD IH PRN (23:36)
[2017-01-12] MEDS ORDERED: Promethazine DM 6.25 mg-15 mg/5 ml Syrup PO PRN (23:36)
[2017-01-12] MEDS ORDERED: Mineral Oil Enema 135 ml PR PRN (23:36)
[2017-01-13] MEDS: Azithromycin 500 MG in Sodium Chloride 0.9% 250 ML IVPB SCH (00:56)
[2017-01-13] MEDS ORDERED: Lactulose 10 gm/15 ml Syrup PO PRN (03:02)
[2017-01-13] MEDS: Levothyroxine 100 MCG TAB PO SCH (06:11)
[2017-01-13 06:51] LABS: HEMATOCRIT 32.7 % (34.0-47.0); MEAN CELL VOLUME 94.9 fl (81.0-99.0); MEAN CORPUSCULAR HEMOGLOBIN 32.3 pg (27.0-31.0); MEAN CORPUSCULAR HGB CONC 34.1 g/dL (33.0-37.0); RED CELL DISTRIBUTION WIDTH 13.5 % (11.5-14.5); WHITE BLOOD COUNT 10.2 K/uL (4.8-10.8)
[2017-01-13 07:08] LABS: ALB/GLOB RATIO 0.9 (1.0-2.1); ALKALINE PHOSPHATASE 92 U/L (38-126); ALT/SGPT 27 U/L (9-52); AST/SGOT 22 U/L (14-36); BILIRUBIN,TOTAL 0.4 mg/dl (0.2-1.3); BLOOD UREA NITROGEN 20 mg/dl (7-17); CARBON DIOXIDE 30 mmol/L (22-30); CHLORIDE 99 mmol/L (98-107); GFR AFRICAN-AMERICAN > 60; GLUCOSE,RANDOM 270 mg/dL (65-105); PARTIAL THROMBOPLASTIN TIME 29.4 SECONDS (23.3-32.5); SODIUM 142 mmol/l (132-148); TOTAL PROTEIN 6.7 G/DL (6.3-8.2)
[2017-01-13 07:13] LABS: POTASSIUM 5.3 MMOL/L (3.6-5.0)
[2017-01-13] MEDS: Albuterol-Ipratrop 3 mg / 0.5 (3 ml) UD IH SCH ×4 (07:57→19:06)
--- NOTE | 2017-01-13 08:50 | RAD ---
HISTORY: Cough. Portable upright study 18:04. COMPARISON: 12/21/2016. FINDINGS: LUNGS: No active pulmonary disease. PLEURA: No significant pleural effusion identified, no pneumothorax apparent. CARDIOVASCULAR: Cardiomegaly. No evidence of acute, significant cardiovascular disease. Incidental Finding(s): Postoperative changes related to sternotomy. OSSEOUS STRUCTURES: No significant abnormalities. VISUALIZED UPPER ABDOMEN: Normal. OTHER FINDINGS: None. IMPRESSION: No active disease. No significant interval change compared to the prior examination(s).
[2017-01-13] MEDS ORDERED: Lactulose 10 gm/15 ml (Rectal Use) PR SCH (09:00)
[2017-01-13] MEDS ORDERED: [UNRECOGNIZED DRUG - MIXTURE] SC SCH (09:00)
[2017-01-13] MEDS: Patient's Own Med (Ranolazine [Ranexa] 1,000 MG) PO SCH ×2 (09:00→16:36)
[2017-01-13] MEDS: Bisacodyl 5mg EC Tab PO SCH (09:03)
[2017-01-13] MEDS: Insulin Lispro Mix 75/25 100 units/ml (HumaLog) 10ml SC SCH (09:04)
[2017-01-13] MEDS: Enoxaparin 40 mg Syringe SC SCH (09:05)
--- NOTE | 2017-01-13 11:37 | CARD ---
APPROVED REPORT EKG Measurement Heart [id number] <Conclusion> Normal sinus rhythm Normal ECG
--- NOTE | 2017-01-13 13:28 | CP.PCM.HP ---
History of Present Illness - History of Present Illness History of Present Illness: CC: Intractable cough/Chest congestion. 76 y/o F, brought from [facility] to [facility] by EMS to be evaluated for increased cough, non bloody, non productive associated to chest congestion , wheezing for 4-5 days PRODUCTION TECH with no relief. Worsening symptoms: Fever at ER 100.3, nausea, burning pain with urine also begun 4-5 days PRODUCTION TECH, chronic back pain moderate intensity 5:10. Aggravated factor: Pt wheelchair bound, weakness Pt denied: Chills, abdominal pain, vomiting, diarrhea, CP, sick contact. PMHx: Multiple admissions for UTI, last one on 12/22/16, COPD, Asthma, DMII with Hyperglycemia, CAD, CHF, HTN, Hypercholesterolemia, Hypothyroidism, CKD, Gastritis, Chronic back pain 2nd to lumbar disk narrowing at L4-L5 and S1. Anemia, Anxiety. Hx of CABG, Coronary Stent and Left TMA. CT Abd/Pelv shows: Bladder wall thickening, suspicious for Cystitis. No upper track abnormalities. EKG: Normal sinus rhythm. CXR: No active disease. Present on Admission - Present on Admission Any Indicators Present on Admission: Yes History of Uncontrolled Diabetes: Yes Review of Systems - Constitutional Constitutional: Weakness - EENT Eyes: Loss of Vision (left eye) Ears: Decreased Hearing (R side) Nose/Mouth/Throat: Other (negative) - Cardiovascular Cardiovascular: Other - Respiratory Respiratory: Cough, Dyspnea, Wheezing, Chest Congestion - Gastrointestinal Gastrointestinal: Nausea - Genitourinary Genitourinary: Urinary Incontinence - Musculoskeletal Musculoskeletal: Arthralgias, Back Pain, Muscle Weakness - Integumentary Integumentary: Other (Redness Sacral area) - Neurological Neurological: Weakness - Psychiatric Psychiatric: Anxiety - Endocrine Endocrine: Other (negative) - Hematologic/Lymphatic Hematologic: Other Past Patient History - Infectious Disease Hx of Infectious Diseases: None - Past Medical History & Family History Past Medical History?: Yes Pertinent Family History: Unknown - Past Social History Smoking Status: Never Smoked Alcohol: None Drugs: Denies Home Situation {Lives}: With Family - CARDIAC Hx Cardiac Disorders: Yes Hx Angina: Yes Hx Congestive Heart Failure: Yes Hx Hypercholesterolemia: Yes Hx Hypertension: Yes Hx Peripheral Edema: Yes - PULMONARY Hx Respiratory Disorders: Yes Hx Asthma: Yes Hx Chronic Obstructive Pulmonary Disease (COPD): No - NEUROLOGICAL Hx Neurological Disorder: No - HEENT Hx HEENT Problems: Yes Hx Blind: Yes (left eye) Hx Deafness: No - RENAL Hx Chronic Kidney Disease: Yes - ENDOCRINE/METABOLIC Hx Endocrine Disorders: Yes Hx Diabetes Mellitus Type 2: Yes Hx Hypothyroidism: Yes - HEMATOLOGICAL/ONCOLOGICAL Hx Blood Disorders: Yes Hx AIDS: No Hx Anemia: Yes Hx Human Immunodeficiency Virus (HIV): No - INTEGUMENTARY Hx Dermatological Problems: No - MUSCULOSKELETAL/RHEUMATOLOGICAL Hx Musculoskeletal Disorders: Yes Hx Arthritis: Yes Hx Back Pain: Yes Hx Falls: No Hx Rheumatoid Arthritis: No - GASTROINTESTINAL Hx Gastrointestinal Disorders: Yes Hx Gastritis: Yes - GENITOURINARY/GYNECOLOGICAL Hx Genitourinary Disorders: Yes Hx Urinary Tract Infection: Yes - PSYCHIATRIC Hx Psychophysiologic Disorder: Yes Hx Anxiety: Yes Hx Depression: Yes Hx Substance Use: No - SURGICAL HISTORY Hx Surgeries: Yes Hx Cholecystectomy: Yes Hx Coronary Artery Bypass Graft: Yes (x4) Hx Coronary Stent: Yes - ANESTHESIA Hx Anesthesia: Yes Hx Anesthesia Reactions: No Hx Malignant Hyperthermia: No Meds Home Medications: Home Medication List Medication Instructions Recorded Confirmed Type Azithromycin [Zithromax] 500 mg PO DAILY #5 tablet 01/15/17 01/15/17 Rx Enoxaparin [Lovenox] 40 mg SC DAILY syr 01/15/17 01/15/17 Rx cefTRIAXone 1 gm [Rocephin 1 gram 1 gm IVPB DAILY #8 bag 01/15/17 01/15/17 Rx IVPB] levoFLOXacin 750 mg in D5W 750 mg IVPB DAILY #8 bag 01/15/17 01/15/17 Rx [Levaquin 750MG] Allergies/Adverse Reactions: Allergies Allergy/AdvReac Type Severity Reaction Status Date / Time kiwi Allergy Mild RASH Verified 01/12/17 16:51 morphine Allergy Mild RASH Verified 01/12/17 16:51 Penicillins Allergy Mild RASH Verified 01/12/17 16:51 pineapple Allergy Mild RASH Verified 01/12/17 16:51 watermelon Allergy Mild RASH Verified 01/12/17 16:51 Physical Exam - Constitutional Appears: No Acute Distress, Chronically Ill - Head Exam Head Exam: NORMAL INSPECTION - Eye Exam Eye Exam: PERRL (R eye, L eye legally blind) - ENT Exam ENT Exam: Normal Oropharynx Additional comments: Hard of hearing R side - Neck Exam Neck exam: Positive for: Normal Inspection - Respiratory Exam Respiratory Exam: Decreased Breath Sounds (at bases), Rhonchi (scattered), Wheezes - Cardiovascular Exam Cardiovascular Exam: REGULAR RHYTHM - GI/Abdominal Exam GI & Abdominal Exam: Normal Bowel Sounds, Soft - Extremities Exam Extremities exam: Positive for: tenderness (mild R-L knee.) Additional comments: L TMA, Ecchymosis U/E. - Back Exam Additional comments: Sacral redness. - Neurological Exam Additional comments: Oriented , weakness lower extremities, moves well all extremities against gravity, decreased sensation distal legs and feet. - Psychiatric Exam Psychiatric exam: Anxious - Skin Skin Exam: Warm Results - Vital Signs Recent Vital Signs: Last Vital Signs Temp 97.4 F L 01/13/17 13:12 Pulse 89 01/13/17 13:12 Resp 20 01/13/17 13:12 BP 181/76 H 01/13/17 13:12 Pulse Ox 94 L 01/13/17 13:12 reviewed J.P. - Labs Result Diagrams: 01/14/17 04:10 01/14/17 04:10 Labs: Laboratory Results - last 24 hr 01/13/17 01/13/17 01/13/17 04:00 04:45 05:02 WBC 10.2 RBC 3.45 L Hgb 11.2 L Hct 32.7 L MCV 94.9 MCH 32.3 H MCHC 34.1 RDW 13.5 Plt Count 209 PT 10.8 INR 1.04 APTT 29.4 Sodium 142 Potassium 5.3 H Chloride 99 Carbon Dioxide 30 Anion Gap 18 BUN 20 H Creatinine 1.0 Est GFR ( Amer) > 60 Est GFR (Non-Af Amer) 54 POC Glucose (mg/dL) 244 H Random Glucose 270 H Calcium 9.0 Total Bilirubin 0.4 AST 22 ALT 27 Alkaline Phosphatase 92 Total Protein 6.7 Albumin 3.2 L Globulin 3.6 Albumin/Globulin Ratio 0.9 L 01/13/17 11:03 WBC RBC Hgb Hct MCV MCH MCHC RDW Plt Count PT INR APTT Sodium Potassium Chloride Carbon Dioxide Anion Gap BUN Creatinine Est GFR ( Amer) Est GFR (Non-Af Amer) POC Glucose (mg/dL) 448 H* Random Glucose Calcium Total Bilirubin AST ALT Alkaline Phosphatase Total Protein Albumin Globulin Albumin/Globulin Ratio reviewed J.P. - EKG Data EKG comments: reviewed J.P. - Imaging and Cardiology Chest x-ray Status: Report reviewed by me (Cheryl) CT scan - abdomen Status: Report reviewed by me (Cheryl) CT scan - pelvis Status: Report reviewed by me Assessment & Plan (1) COPD exacerbation Status: Acute Priority: High (2) UTI (urinary tract infection) Status: Acute Priority: High (3) Diabetes mellitus with hyperglycemia Status: Chronic Priority: High (4) Chronic low back pain Status: Acute Priority: High (5) Fever Status: Acute (6) Hypercholesterolemia Status: Chronic Priority: Medium (7) Hypertension Status: Chronic Priority: Medium (8) Hypothyroidism Status: Chronic Priority: Medium - Assessment and Plan (Free Text) Plan: F/U CT Chest, Blood and U C-S, continue NC 2 l/m, continue Levaquin IV, Rocephin IV, Zithromax IV, Solumedrol, Duoneb, Promethazine DM, Insulin, Lovenox and rest of Tx. PT eval. - Date & Time Date: 01/13/17 Time: 11:00
[2017-01-13] MEDS: Insulin Lispro (humaLOG) 100 Units/ml Inj SC SCH ×2 (16:37→21:59)
--- NOTE | 2017-01-13 16:44 | CT ---
CT chest without IV contrast Indication: Pneumonia Technique: Contiguous axial images were obtained through the chest without intravenous contrast enhancement. Sagittal and coronal reconstructions were generated and reviewed. This CT exam was performed using 1 or more of the falling dose reduction techniques: Automated exposure control, adjustment of the MAA and/or kV according to patient size, and/or use of iterative reconstruction technique. Radiation dose (DLP): 569.98 MGy-cm. Comparison: Chest x-ray performed 01/12/17 Findings: Limited visualized portions of the inferior thyroid gland appear grossly unremarkable. The unenhanced mediastinal and hilar vascular structures appear grossly unremarkable. Median sternotomy wires. Cardiomegaly. Dense coronary artery calcifications. Atherosclerotic calcifications of the aorta. Sub cm mediastinal/prevascular lymph nodes, nonspecific. Mosaic profusion may be seen in the setting of small vessel/small airways disease. Bilateral dependent consolidations, right greater than left compatible with pneumonia and/or atelectasis. Trace bilateral pleural effusions. No pneumothorax. Small hiatal hernia/distal esophageal wall thickening. Limited visualization of the noncontrast upper abdomen reveals pancreatic atrophy. Cholecystectomy clips. Multilevel degenerative changes. Impression: Mosaic profusion may be seen in the setting of small vessel/small airways disease. Bilateral dependent consolidations, right greater than left compatible with pneumonia and/or atelectasis. Trace bilateral pleural effusions. Cardiomegaly. Median sternotomy wires. Dense coronary artery calcifications. Atherosclerotic calcifications of the aorta. Small hiatal hernia/distal esophageal wall thickening. Pancreatic atrophy. Cholecystectomy clips.
[2017-01-14 05:23] LABS: HEMATOCRIT 29.7 % (34.0-47.0); MEAN CELL VOLUME 95.4 fl (81.0-99.0); MEAN CORPUSCULAR HEMOGLOBIN 31.3 pg (27.0-31.0); MEAN CORPUSCULAR HGB CONC 32.8 g/dL (33.0-37.0); RED CELL DISTRIBUTION WIDTH 13.3 % (11.5-14.5); WHITE BLOOD COUNT 10.7 K/uL (4.8-10.8)
[2017-01-14 05:46] LABS: CALCIUM 9.1 mg/dL (8.4-10.2); POTASSIUM 4.8 MMOL/L (3.6-5.0)
[2017-01-14] MEDS: Levothyroxine 100 MCG TAB PO SCH (06:33)
[2017-01-14] MEDS: Insulin Lispro (humaLOG) 100 Units/ml Inj SC SCH ×4 (06:36→22:00)
[2017-01-14] MEDS: Albuterol-Ipratrop 3 mg / 0.5 (3 ml) UD IH SCH ×3 (09:07→19:00)
[2017-01-14] MEDS: Patient's Own Med (Ranolazine [Ranexa] 1,000 MG) PO SCH ×2 (09:08→16:27)
[2017-01-14] MEDS: Enoxaparin 40 mg Syringe SC SCH (09:09)
[2017-01-14] MEDS: Bisacodyl 5mg EC Tab PO SCH (09:09)
--- NOTE | 2017-01-14 09:09 | PQF CHF ---
This form is a permanent part of the medical record 01/14/17 Please specify the type and acuity of heart failure in your progress notes: Documentation of a history of CHF. Treated with Coreg and Demadex. Clarification of your documentation is requested to better reflect the severity of illness and intensity of treatment of your patient. Indicators present [x] Diagnosis of a history of CHF [] BNP > 200 [] Imaging Finding of Pulmonary Edema /Pleural Effusions [] Fluid/Volume Overload [] Pitting edema [] Ejection Fraction < 40% (Indicative of Systolic Heart Failure) [x] Ejection Fraction > 40% (Indicative of Diastolic Heart Failure) ECHO EF 65-70%, abnormal relaxation pattern [] Dyspnea / Orthopenea / Paroxysmal Nocturnal Dyspnea [] Other: Location in the medical record that reflects the above clinical findings: [x] H& P Treatment Provided: [x]Coreg, Demadex PHYSICIAN'S RESPONSE Based on your medical judgment of the clinical indicators outlined above, are you treating this patient for a known or suspected: [] Acute CHF [] Systolic [] Diastolic [] Combined [] Chronic CHF [] Systolic [] Diastolic [] Combined [] Acute on Chronic CHF []Systolic [] Diastolic [] Combined [] CHF due hypertension [] Acute systolic []Chronic systolic [] Acute /chronic systolic [] Other, please indicate: [] [] If Unable to Determine, please check the box, sign and date. Present On Admission (POA) Indicator: [] Present at the time of admission [] Not present at the time of admission [] Clinically Undetermined In responding to this query, please exercise your independent professional judgment. The fact that a question is asked does not imply that any particular answer is desired or expected. Thank you for your clarification on this documentation. If you have any questions please call:[phone] * Thank you, Vilma Sanon RN CDMP MTDD
[2017-01-14] MEDS: Insulin Lispro Mix 75/25 100 units/ml (HumaLog) 10ml SC SCH (09:10)
--- NOTE | 2017-01-14 12:38 | CP.PCM.PN ---
Subjective - Date & Time of Evaluation Date of Evaluation: 01/14/17 Time of Evaluation: 11:20 - Subjective Subjective: F/U PNA/COPD Exacerbation/UTI/ Cough , chest congestion , Objective - Vital Signs/Intake and Output Vital Signs (last 24 hours): Temp Pulse Resp BP Pulse Ox 97.6 F 92 H 20 162/78 H 94 L 01/14/17 08:07 01/14/17 09:09 01/14/17 08:07 01/14/17 11:06 01/14/17 08:07 - Medications Medications: Current Medications Acetaminophen (Tylenol 325mg Tab) 650 mg PO Q4H PRN PRN Reason: Temp >100 Acetaminophen (Tylenol 325mg Tab) 650 mg PO Q4H PRN PRN Reason: Pain, Mild (1-3) Albuterol/Ipratropium (Duoneb 3 Mg/0.5 Mg (3 Ml) Ud) 3 ml IH Q4H PRN PRN Reason: Shortness of Breath Albuterol/Ipratropium (Duoneb 3 Mg/0.5 Mg (3 Ml) Ud) 3 ml IH TID [facility] Last Admin: 01/13/17 19:06 Dose: 3 ml Alprazolam (Xanax) 0.25 mg PO DAILY PRN PRN Reason: Anxiety Stop: 01/19/17 23:37 Aspirin (Ecotrin) 81 mg PO DAILY [facility] Last Admin: 01/14/17 09:08 Dose: 81 mg Bisacodyl (Dulcolax) 5 mg PO DAILY [facility] Last Admin: 01/14/17 09:09 Dose: 5 mg Carvedilol (Coreg) 3.125 mg PO DAILY [facility] Last Admin: 01/14/17 09:09 Dose: 3.125 mg Docusate Sodium (Colace) 200 mg PO BID [facility] Last Admin: 01/14/17 09:08 Dose: 200 mg Enoxaparin Sodium (Lovenox) 40 mg SC DAILY [facility] PRN Reason: Protocol Last Admin: 01/14/17 09:09 Dose: 40 mg Home Med (Ranolazine [Ranexa]) 1,000 mg PO BID [facility] Last Admin: 01/14/17 09:08 Dose: 1,000 mg Levofloxacin/Dextrose (Levaquin 750mg) 150 mls @ 100 mls/hr IVPB DAILY [facility] Last Admin: 01/14/17 09:11 Dose: 100 mls/hr Ceftriaxone Sodium 1 gm/ (Sodium Chloride) 100 mls @ 100 mls/hr IVPB DAILY [facility] Last Admin: 01/14/17 09:11 Dose: 100 mls/hr Azithromycin 500 mg/ Sodium (Chloride) 250 mls @ 250 mls/hr IVPB Q24H [facility] Last Admin: 01/13/17 00:56 Dose: 250 mls/hr Insulin Human Lispro (Humalog) 0 units SC ACHS [facility] PRN Reason: Protocol Last Admin: 01/14/17 12:27 Dose: 4 units Insulin Lispro Protam/Lispro Human (Humalog Mix 75/25) 25 units SC DAILY [facility] Last Admin: 01/14/17 09:10 Dose: 25 units Lactulose (Enulose) 10 gm PO DAILY PRN PRN Reason: Constipation Levothyroxine Sodium (Synthroid) 100 mcg PO DAILY@0630 [facility] Last Admin: 01/14/17 06:33 Dose: 100 mcg Meclizine HCl (Antivert) 25 mg PO Q6H PRN PRN Reason: Dizziness Last Admin: 01/14/17 09:09 Dose: 25 mg Mineral Oil (Fleet Mineral Oil Enema) 135 ml OR Q72H PRN PRN Reason: Constipation Nitroglycerin (Nitrostat Sl Tab) 0.4 mg SL Q5MIN PRN PRN Reason: chest pain Promethazine HCl/Dextromethorphan (Phenergan Dm Syrup) 5 ml PO Q6H PRN PRN Reason: Cough Torsemide (Demadex) 40 mg PO TUFR [facility] Last Admin: 01/13/17 20:49 Dose: Not Given - Labs Labs: 01/14/17 04:10 01/14/17 04:10 PT 10.8 SECONDS (9.6-11.2) 01/13/17 04:45 INR 1.04 (0.92-1.08) 01/13/17 04:45 APTT 29.4 SECONDS (23.3-32.5) 01/13/17 04:45 - Constitutional Appears: No Acute Distress, Chronically Ill - Head Exam Head Exam: NORMAL INSPECTION - Eye Exam Eye Exam: PERRL (R eye. L eye legally blind) - ENT Exam Additional comments: Hard of hearing R ear - Neck Exam Neck Exam: Normal Inspection - Respiratory Exam Respiratory Exam: Decreased Breath Sounds (at bases), Rhonchi (scattered), Wheezes (few) - Cardiovascular Exam Cardiovascular Exam: REGULAR RHYTHM - GI/Abdominal Exam GI & Abdominal Exam: Soft, Normal Bowel Sounds - Extremities Exam Extremities Exam: Tenderness (Mild R-L knee) Additional comments: L TMA. Ecchymosis U/E. - Back Exam Back Exam: NORMAL INSPECTION - Neurological Exam Additional comments: Oriented, forgetful, weakness lower extremities, moves well all extremities against gravity, decreased sensation distal legs and feet. - Psychiatric Exam Psychiatric exam: Anxious - Skin Skin Exam: Warm Assessment and Plan (1) COPD exacerbation Status: Acute (2) HCAP (healthcare-associated pneumonia) Status: Acute (3) UTI (urinary tract infection) Status: Acute (4) Diabetes mellitus with hyperglycemia Status: Chronic (5) Chronic low back pain Status: Chronic (6) Fever Status: Acute (7) Hypercholesterolemia Status: Chronic (8) Hypertension Status: Chronic (9) Hypothyroidism Status: Chronic - Assessment and Plan (Free Text) Plan: Continue Rocephin , Levaquin , Duo Neb and rest of Tx
[2017-01-15] MEDS: Azithromycin 500 MG in Sodium Chloride 0.9% 250 ML IVPB SCH ×3 (01:44→01:50)
[2017-01-15] MEDS: Levothyroxine 100 MCG TAB PO SCH (06:26)
[2017-01-15] MEDS: Albuterol-Ipratrop 3 mg / 0.5 (3 ml) UD IH SCH ×3 (07:50→21:19)
[2017-01-15] MEDS: Insulin Lispro (humaLOG) 100 Units/ml Inj SC SCH ×3 (08:30→16:45)
[2017-01-15] MEDS: Patient's Own Med (Ranolazine [Ranexa] 1,000 MG) PO SCH ×2 (08:39→16:45)
[2017-01-15] MEDS: Enoxaparin 40 mg Syringe SC SCH (08:40)
[2017-01-15] MEDS: Bisacodyl 5mg EC Tab PO SCH (08:43)
--- NOTE | 2017-01-15 11:55 | CP.PCM.PCO ---
Assessment & Plan - Assessment and Plan (Free Text) Assessment: pneumonia Patient will need 8 days of Levaquin 750 mg iv daily and Rocephin 1gm IVPB Daily
[2017-01-15] MEDS: Insulin Lispro Mix 75/25 100 units/ml (HumaLog) 10ml SC SCH (12:12)
--- NOTE | 2017-01-15 13:07 | CP.PCM.PN ---
Subjective - Date & Time of Evaluation Date of Evaluation: 01/15/17 - Subjective Subjective: F/U PNA, COPD Exacerbation/ UTI Less cough , less Chest congestion Objective - Vital Signs/Intake and Output Vital Signs (last 24 hours): Temp Pulse Resp BP Pulse Ox 98.6 F 92 H 20 130/61 94 L 01/15/17 12:18 01/15/17 12:18 01/15/17 12:18 01/15/17 12:18 01/15/17 12:18 - Medications Medications: Current Medications Acetaminophen (Tylenol 325mg Tab) 650 mg PO Q4H PRN PRN Reason: Temp >100 Acetaminophen (Tylenol 325mg Tab) 650 mg PO Q4H PRN PRN Reason: Pain, Mild (1-3) Albuterol/Ipratropium (Duoneb 3 Mg/0.5 Mg (3 Ml) Ud) 3 ml IH Q4H PRN PRN Reason: Shortness of Breath Albuterol/Ipratropium (Duoneb 3 Mg/0.5 Mg (3 Ml) Ud) 3 ml IH TID [facility] Last Admin: 01/15/17 07:50 Dose: 3 ml Alprazolam (Xanax) 0.25 mg PO DAILY PRN PRN Reason: Anxiety Stop: 01/19/17 23:37 Aspirin (Ecotrin) 81 mg PO DAILY [facility] Last Admin: 01/15/17 08:43 Dose: 81 mg Bisacodyl (Dulcolax) 5 mg PO DAILY [facility] Last Admin: 01/15/17 08:43 Dose: 5 mg Carvedilol (Coreg) 3.125 mg PO DAILY [facility] Last Admin: 01/15/17 08:42 Dose: 3.125 mg Docusate Sodium (Colace) 200 mg PO BID [facility] Last Admin: 01/15/17 08:43 Dose: 200 mg Enoxaparin Sodium (Lovenox) 40 mg SC DAILY [facility] PRN Reason: Protocol Last Admin: 01/15/17 08:40 Dose: 40 mg Home Med (Ranolazine [Ranexa]) 1,000 mg PO BID [facility] Last Admin: 01/15/17 08:39 Dose: 1,000 mg Levofloxacin/Dextrose (Levaquin 750mg) 150 mls @ 100 mls/hr IVPB DAILY [facility] Last Admin: 01/15/17 08:41 Dose: 100 mls/hr Ceftriaxone Sodium 1 gm/ (Sodium Chloride) 100 mls @ 100 mls/hr IVPB DAILY [facility] Last Admin: 01/15/17 08:43 Dose: 100 mls/hr Azithromycin 500 mg/ Sodium (Chloride) 250 mls @ 250 mls/hr IVPB Q24H [facility] Last Admin: 01/15/17 01:50 Dose: 250 mls/hr Insulin Human Lispro (Humalog) 0 units SC ACHS [facility] PRN Reason: Protocol Last Admin: 01/15/17 12:12 Dose: Not Given Insulin Lispro Protam/Lispro Human (Humalog Mix 75/25) 25 units SC DAILY [facility] Last Admin: 01/15/17 12:12 Dose: 25 units Lactulose (Enulose) 10 gm PO DAILY PRN PRN Reason: Constipation Last Admin: 01/15/17 12:14 Dose: 10 gm Lactulose (Enulose) 20 gm PO DAILY PRN PRN Reason: Constipation Levothyroxine Sodium (Synthroid) 100 mcg PO DAILY@0630 [facility] Last Admin: 01/15/17 06:26 Dose: 100 mcg Meclizine HCl (Antivert) 25 mg PO Q6H PRN PRN Reason: Dizziness Last Admin: 01/14/17 09:09 Dose: 25 mg Mineral Oil (Fleet Mineral Oil Enema) 135 ml [place] Q72H PRN PRN Reason: Constipation Nitroglycerin (Nitrostat Sl Tab) 0.4 mg SL Q5MIN PRN PRN Reason: chest pain Promethazine HCl/Dextromethorphan (Phenergan Dm Syrup) 5 ml PO Q6H PRN PRN Reason: Cough Torsemide (Demadex) 40 mg PO TUFR [facility] Last Admin: 01/15/17 08:40 Dose: 40 mg - Labs Labs: 01/14/17 04:10 01/14/17 04:10 PT 10.8 SECONDS (9.6-11.2) 01/13/17 04:45 INR 1.04 (0.92-1.08) 01/13/17 04:45 APTT 29.4 SECONDS (23.3-32.5) 01/13/17 04:45 - Constitutional Appears: No Acute Distress, Chronically Ill (Blind L Eye , ) - Eye Exam Pupil Exam: PERRL (Blind L Eye , AMBROSIO R Eye) - ENT Exam ENT Exam: Normal External Ear Exam Additional comments: hard of hearing R ear - Neck Exam Neck Exam: Normal Inspection - Respiratory Exam Respiratory Exam: Decreased Breath Sounds (at bases), Rhonchi (scattered) - Cardiovascular Exam Cardiovascular Exam: REGULAR RHYTHM - GI/Abdominal Exam GI & Abdominal Exam: Soft, Normal Bowel Sounds - Extremities Exam Extremities Exam: Tenderness (mild R L knee , L TMA ) Additional comments: L TMA - Back Exam Back Exam: NORMAL INSPECTION (mild tenderness) - Neurological Exam Neurological Exam: Alert Additional comments: Alert , no focal motor deficit, moves well extremities against gravity , decreased sensation R L foot - Psychiatric Exam Psychiatric exam: Anxious - Skin Skin Exam: Warm Additional comments: ecchymosis U/E Assessment and Plan (1) HCAP (healthcare-associated pneumonia) Status: Acute (2) COPD exacerbation Status: Acute (3) UTI (urinary tract infection) Status: Acute (4) Diabetes mellitus with hyperglycemia Status: Chronic (5) Chronic low back pain Status: Chronic (6) Fever Status: Acute (7) Hypercholesterolemia Status: Chronic (8) Hypertension Status: Chronic (9) Hypothyroidism Status: Chronic - Assessment and Plan (Free Text) Plan: Continue Rocephin , Levaquin , Duo Neb and rest of medications , evaluate for TCU
[2017-01-15 16:02] VITALS: BP 106/55; PULSE 82; RESP 18; TEMP 97.2; O2SAT 100
--- NOTE | 2017-01-21 10:38 | CP.PCM.DIS ---
Provider - Provider Date of Admission: 01/12/17 19:44 Attending physician: Sridhar Oliver MD Time Spent in preparation of Discharge (in minutes): 25 Diagnosis - Discharge Diagnosis (1) Fever Status: Acute (2) Hypertension Status: Chronic Priority: Medium (3) Diabetes mellitus with hyperglycemia Status: Chronic Priority: High (4) Chronic low back pain Status: Chronic Priority: High (5) Hypothyroidism Status: Chronic Priority: Medium (6) Hypercholesterolemia Status: Chronic Priority: Medium (7) COPD exacerbation Status: Acute Priority: High (8) HCAP (healthcare-associated pneumonia) Status: Acute Hospital Course - Lab Results Lab Results: Most Recent Lab Values WBC 10.7 K/uL (4.8-10.8) 01/14/17 04:10 RBC 3.12 Mil/uL (3.80-5.20) L 01/14/17 04:10 Hgb 9.7 g/dL (12.0-16.0) L 01/14/17 04:10 Hct 29.7 % (34.0-47.0) L 01/14/17 04:10 MCV 95.4 fl (81.0-99.0) 01/14/17 04:10 MCH 31.3 pg (27.0-31.0) H 01/14/17 04:10 MCHC 32.8 g/dL (33.0-37.0) L 01/14/17 04:10 RDW 13.3 % (11.5-14.5) 01/14/17 04:10 Plt Count 221 K/uL (130-400) 01/14/17 04:10 MPV 7.8 fl (7.2-11.7) 01/12/17 18:25 Neut % (Auto) 82.9 % (50.0-75.0) H 01/12/17 18:25 Lymph % (Auto) 8.2 % (20.0-40.0) L 01/12/17 18:25 [place] % (Auto) 4.6 % (0.0-10.0) 01/12/17 18:25 Eos % (Auto) 3.7 % (0.0-4.0) 01/12/17 18:25 Baso % (Auto) 0.6 % (0.0-2.0) 01/12/17 18:25 Neut # 10.4 K/uL (1.8-7.0) H 01/12/17 18:25 Lymph # 1.0 K/uL (1.0-4.3) 01/12/17 18:25 [place] # 0.6 K/uL (0.0-0.8) 01/12/17 18:25 Eos # 0.5 K/uL (0.0-0.7) 01/12/17 18:25 Baso # 0.1 K/uL (0.0-0.2) 01/12/17 18:25 Neutrophils % (Manual) 80 % (42-75) H 01/12/17 18:25 Band Neutrophils % 1 % (0-2) 01/12/17 18:25 Lymphocytes % (Manual) 9 % (20-50) L 01/12/17 18:25 Reactive Lymphs % 1 % (0-0) H 01/12/17 18:25 Monocytes % (Manual) 4 % (0-10) 01/12/17 18:25 Eosinophils % (Manual) 5 % (0-7) 01/12/17 18:25 Platelet Estimate Normal (NORMAL) 01/12/17 18:25 Hypochromasia (manual) Slight 01/12/17 18:25 Anisocytosis (manual) Slight 01/12/17 18:25 Tear Drop Cells Slight 01/12/17 18:25 Ovalocytes Slight 01/12/17 18:25 PT 10.8 SECONDS (9.6-11.2) 01/13/17 04:45 INR 1.04 (0.92-1.08) 01/13/17 04:45 APTT 29.4 SECONDS (23.3-32.5) 01/13/17 04:45 pO2 29 mm/Hg (30-55) L 01/12/17 06:30 VBG pH 7.40 (7.32-7.43) 01/12/17 06:30 VBG pCO2 64 mmHg (40-60) H 01/12/17 06:30 VBG HCO3 33.9 mmol/L 01/12/17 06:30 VBG Total CO2 41.6 mmol/L (22-28) H 01/12/17 06:30 VBG O2 Sat (Calc) 63.1 % (40-65) 01/12/17 06:30 VBG Base Excess 12.5 mmol/L (0.0-2.0) H 01/12/17 06:30 VBG Potassium 4.8 mmol/L (3.6-5.2) 01/12/17 06:30 Sodium 136.0 mmol/L (132-148) 01/12/17 06:30 Chloride 104.0 mmol/L (98-107) 01/12/17 06:30 Glucose 146 mg/dL (65-105) H 01/12/17 06:30 Lactate 0.7 mmol/L (0.7-2.1) 01/12/17 06:30 FiO2 21.0 % 01/12/17 06:30 Sodium 140 mmol/l (132-148) 01/14/17 04:10 Potassium 4.8 MMOL/L (3.6-5.0) 01/14/17 04:10 Chloride 99 mmol/L (98-107) 01/14/17 04:10 Carbon Dioxide 32 mmol/L (22-30) H 01/14/17 04:10 Anion Gap 14 (10-20) 01/14/17 04:10 BUN 30 mg/dl (7-17) H 01/14/17 04:10 Creatinine 1.1 mg/dL (0.7-1.2) 01/14/17 04:10 Est GFR ( Amer) 58 01/14/17 04:10 Est GFR (Non-Af Amer) 48 01/14/17 04:10 POC Glucose (mg/dL) 269 mg/dL (65-110) H 01/15/17 17:45 Random Glucose 235 mg/dL (65-105) H 01/14/17 04:10 Calcium 9.1 mg/dL (8.4-10.2) 01/14/17 04:10 Total Bilirubin 0.4 mg/dl (0.2-1.3) 01/13/17 04:45 AST 22 U/L (14-36) 01/13/17 04:45 ALT 27 U/L (9-52) 01/13/17 04:45 Alkaline Phosphatase 92 U/L (38-126) 01/13/17 04:45 NT-Pro-B Natriuret Pep 1600 pg/ml (0-900) H 01/12/17 18:25 Total Protein 6.7 G/DL (6.3-8.2) 01/13/17 04:45 Albumin 3.2 g/dL (3.5-5.0) L 01/13/17 04:45 Globulin 3.6 gm/dL (2.2-3.9) 01/13/17 04:45 Albumin/Globulin Ratio 0.9 (1.0-2.1) L 01/13/17 04:45 Venous Blood Potassium 4.8 mmol/L (3.6-5.2) 01/12/17 06:30 Urine Color Yellow (YELLOW) 01/12/17 18:45 Urine Clarity Clear (Clear) 01/12/17 18:45 Urine pH 6.0 (5.0-8.0) 01/12/17 18:45 Ur Specific [place] 1.015 (1.003-1.030) 01/12/17 18:45 Urine Protein 100 mg/dL (NEGATIVE) 01/12/17 18:45 Urine Glucose (UA) Neg mg/dL (Normal) 01/12/17 18:45 Urine Ketones Negative mg/dL (NEGATIVE) 01/12/17 18:45 Urine Blood Negative (NEGATIVE) 01/12/17 18:45 Urine Nitrate Negative (NEGATIVE) 01/12/17 18:45 Urine Bilirubin Negative (NEGATIVE) 01/12/17 18:45 Urine Urobilinogen 0.2-1.0 mg/dL (0.2-1.0) 01/12/17 18:45 Ur Leukocyte Esterase Neg [place]/uL (Negative) 01/12/17 18:45 Urine RBC (Auto) 1 /hpf (0-3) 01/12/17 18:45 Urine Microscopic WBC 1 /hpf (0-5) 01/12/17 18:45 Ur Squamous Epith Cells < 1 /hpf (0-5) 01/12/17 18:45 Influenza Typ A,B (EIA) Negative for flu a/b (NEGATIVE) 01/12/17 18:50 - Date & Time of H&P Date of H&P: 01/13/17 Time of H&P: 11:00 Discharge Exam - Head Exam Head Exam: NORMAL INSPECTION Discharge Plan - Discharge Medications Prescriptions: RX: levoFLOXacin 750 mg in D5W [Levaquin 750MG] 750 mg IVPB DAILY #8 bag RX: cefTRIAXone 1 gm [Rocephin 1 gram IVPB] 1 gm IVPB DAILY #8 bag RX: Azithromycin [Zithromax] 500 mg PO DAILY #5 tablet - Follow Up Plan Condition: STABLE Disposition: TRANSF TO SNF Instructions: Pneumonia (DC)
== END 2017-01-15 18:30 | DRG 541 ==
LOC: H.ER 16:47 → H.ERHOLD 19:44 → H.TEL 22:27
PROVIDERS: ADMIT Internal Medicine Pulmonary Disease; ATTEND Internal Medicine Pulmonary Disease
DX: J44.1 Chronic obstructive pulmonary disease with (acute) exacerbation (principal); I50.32 Chronic diastolic (congestive) heart failure; J18.9 Pneumonia, unspecified organism; E11.22 Type 2 diabetes mellitus with diabetic chronic kidney disease; I13.0 Hypertensive heart and chronic kidney disease with heart failure and stage 1 through stage 4 chronic kidney disease, or unspecified chronic kidney disease; E11.65 Type 2 diabetes mellitus with hyperglycemia; N18.9 Chronic kidney disease, unspecified; N39.0 Urinary tract infection, site not specified; J44.0 Chronic obstructive pulmonary disease with (acute) lower respiratory infection; E03.9 Hypothyroidism, unspecified; Y95 Nosocomial condition; E78.00 Pure hypercholesterolemia, unspecified; E78.5 Hyperlipidemia, unspecified; G89.29 Other chronic pain; J45.909 Unspecified asthma, uncomplicated; I25.10 Atherosclerotic heart disease of native coronary artery without angina pectoris; Z95.1 Presence of aortocoronary bypass graft; Z95.5 Presence of coronary angioplasty implant and graft; K29.70 Gastritis, unspecified, without bleeding; F32.9 Major depressive disorder, single episode, unspecified; F41.8 Other specified anxiety disorders

== ENCOUNTER 2017-01-15 16:24 | Inpatient (IN) | payer MEDICAID ==
[2017-01-15 19:03] VITALS: BMI 29.7
[2017-01-15 21:14] VITALS: RESP 20
[2017-01-15] MEDS ORDERED: Mineral Oil Enema 135 ml PR PRN (21:45)
[2017-01-15] MEDS ORDERED: Albuterol-Ipratrop 3 mg / 0.5 (3 ml) UD IH PRN (21:45)
[2017-01-16] MEDS: Levothyroxine 100 MCG TAB PO SCH (05:41)
[2017-01-16] MEDS: Insulin Lispro (humaLOG) 100 Units/ml Inj SC SCH ×2 (06:54→12:23)
[2017-01-16] MEDS: Albuterol-Ipratrop 3 mg / 0.5 (3 ml) UD IH SCH ×4 (07:27→19:37)
[2017-01-16 07:32] LABS: HEMATOCRIT 29.1 % (34.0-47.0); MEAN CELL VOLUME 95.8 fl (81.0-99.0); MEAN CORPUSCULAR HEMOGLOBIN 31.8 pg (27.0-31.0); MEAN CORPUSCULAR HGB CONC 33.2 g/dL (33.0-37.0); RED CELL DISTRIBUTION WIDTH 13.7 % (11.5-14.5); WHITE BLOOD COUNT 8.6 K/uL (4.8-10.8)
[2017-01-16 07:47] LABS: ALB/GLOB RATIO 0.8 (1.0-2.1); BILIRUBIN,TOTAL 0.2 mg/dl (0.2-1.3); CALCIUM 8.6 mg/dL (8.4-10.2); POTASSIUM 4.4 MMOL/L (3.6-5.0); TOTAL PROTEIN 5.9 G/DL (6.3-8.2)
[2017-01-16] MEDS ORDERED: CEFTRIAXONE 1 GM IVPB SCH (09:00)
[2017-01-16] MEDS ORDERED: Enoxaparin 40 mg Syringe SC SCH (09:00)
[2017-01-16] MEDS ORDERED: levoFLOXacin 750 mg in D5W 150 ML BAG IVPB SCH (09:00)
[2017-01-16] MEDS: Enoxaparin 40 mg Syringe SC SCH (09:02)
[2017-01-16] MEDS: Promethazine DM 6.25 mg-15 mg/5 ml Syrup PO PRN (09:03)
[2017-01-16] MEDS: Bisacodyl 5mg EC Tab PO SCH (09:04)
[2017-01-16] MEDS: Insulin Lispro Mix 75/25 100 units/ml (HumaLog) 10ml SC SCH (09:07)
[2017-01-16] MEDS: Patient's Own Med (Ranolazine [Ranexa] 1,000 MG) PO SCH ×2 (09:08→16:13)
[2017-01-16] MEDS ORDERED: Insulin Lispro (humaLOG) 100 Units/ml Inj SC SCH (15:51)
[2017-01-16] MEDS ORDERED: Azithromycin 500 MG in Sodium Chloride 0.9% 250 ML IVPB SCH (17:00)
--- NOTE | 2017-01-16 17:17 | CP.PCM.HP ---
History of Present Illness - History of Present Illness History of Present Illness: 76 y/o F, with multiple chronic medical conditions admitted to [facility] on 01/13/17 for COPD Exacerbation, UTI, DM with Hyperglycemia there after Ct chest showed PNA. On 01/16/17, Blood C-S and Urine C-S negative. Pt condition improved and was transferred to TCU unit to continue abx course, PT,OT. V/S normal, Pt denied: Fever, chills, n/v/d, abdominal pain, CP. Present on Admission - Present on Admission Any Indicators Present on Admission: No Review of Systems - Constitutional Constitutional: Weakness - EENT Eyes: Loss of Vision (L eye) Ears: Decreased Hearing (R ear) Nose/Mouth/Throat: Other (negative) - Cardiovascular Cardiovascular: Other (negative) - Respiratory Respiratory: Cough, Chest Congestion - Gastrointestinal Gastrointestinal: Other (negative) - Genitourinary Genitourinary: Urinary Incontinence - Musculoskeletal Musculoskeletal: Arthralgias, Muscle Weakness - Integumentary Integumentary: Other (Redness sacral area) - Neurological Neurological: Weakness - Psychiatric Psychiatric: Anxiety - Endocrine Endocrine: Other (negative) - Hematologic/Lymphatic Hematologic: Other (negative) Past Patient History - Infectious Disease Hx of Infectious Diseases: None - Past Medical History & Family History Past Medical History?: Yes Pertinent Family History: Unknown - Past Social History Smoking Status: Never Smoked Alcohol: None Drugs: Denies Home Situation {Lives}: With Family - CARDIAC Hx Cardiac Disorders: Yes Hx Angina: Yes Hx Congestive Heart Failure: Yes Hx Hypercholesterolemia: Yes Hx Hypertension: Yes - PULMONARY Hx Respiratory Disorders: Yes Hx Asthma: Yes Hx Chronic Obstructive Pulmonary Disease (COPD): Yes Hx Pneumonia: Yes - NEUROLOGICAL Hx Neurological Disorder: No - HEENT Hx HEENT Problems: Yes Hx Blind: Yes (left eye) Hx Deafness: No - RENAL Hx Chronic Kidney Disease: Yes - ENDOCRINE/METABOLIC Hx Endocrine Disorders: Yes Hx Diabetes Mellitus Type 2: Yes Hx Hypothyroidism: Yes - HEMATOLOGICAL/ONCOLOGICAL Hx Blood Disorders: Yes Hx AIDS: No Hx Anemia: Yes Hx Blood Transfusions: No Hx Human Immunodeficiency Virus (HIV): No - INTEGUMENTARY Hx Dermatological Problems: No - MUSCULOSKELETAL/RHEUMATOLOGICAL Hx Musculoskeletal Disorders: Yes Hx Arthritis: Yes Hx Back Pain: Yes Hx Falls: No - GASTROINTESTINAL Hx Gastrointestinal Disorders: Yes Hx Gastritis: Yes - GENITOURINARY/GYNECOLOGICAL Hx Genitourinary Disorders: Yes Hx Urinary Tract Infection: Yes - PSYCHIATRIC Hx Anxiety: Yes Hx Substance Use: No - SURGICAL HISTORY Hx Surgeries: Yes Hx Cholecystectomy: Yes Hx Coronary Artery Bypass Graft: Yes (x4) Hx Coronary Stent: Yes - ANESTHESIA Hx Anesthesia: Yes Hx Anesthesia Reactions: No Hx Malignant Hyperthermia: No Meds Allergies/Adverse Reactions: Allergies Allergy/AdvReac Type Severity Reaction Status Date / Time kiwi Allergy Mild RASH Verified 01/12/17 16:51 morphine Allergy Mild RASH Verified 01/12/17 16:51 Penicillins Allergy Mild RASH Verified 01/12/17 16:51 pineapple Allergy Mild RASH Verified 01/12/17 16:51 watermelon Allergy Mild RASH Verified 01/12/17 16:51 Physical Exam - Constitutional Appears: No Acute Distress, Chronically Ill - Head Exam Head Exam: NORMAL INSPECTION - Eye Exam Eye Exam: PERRL (R eye, L eye legally blind) - ENT Exam Additional comments: hard of hearing R ear. - Neck Exam Neck exam: Positive for: Normal Inspection - Respiratory Exam Respiratory Exam: Decreased Breath Sounds (at bases), Rhonchi (scattered) - Cardiovascular Exam Cardiovascular Exam: REGULAR RHYTHM - GI/Abdominal Exam GI & Abdominal Exam: Normal Bowel Sounds, Soft - Extremities Exam Extremities exam: Positive for: tenderness (mild R-L knee. L TMA) Additional comments: Ecchymosis U/E. - Back Exam Back exam: NORMAL INSPECTION, tenderness (mild L-S) - Neurological Exam Neurological exam: Alert Additional comments: No focal motor deficit, moves well extremities against gravity, decreased sensation R-L foot , generalized weakness - Psychiatric Exam Psychiatric exam: Anxious - Skin Skin Exam: Warm (Ecchymosis U/E) Results - Vital Signs Recent Vital Signs: Last Vital Signs Temp 97.7 F 01/16/17 16:57 Pulse 82 01/16/17 16:57 Resp 20 01/16/17 16:57 BP 140/73 01/16/17 16:57 Pulse Ox 97 01/16/17 16:57 reviewed Cheryl - Labs Result Diagrams: 01/21/17 14:15 01/22/17 07:43 Labs: Laboratory Results - last 24 hr 01/15/17 01/16/17 01/16/17 21:38 05:56 06:30 WBC 8.6 RBC 3.03 L Hgb 9.7 L Hct 29.1 L MCV 95.8 MCH 31.8 H MCHC 33.2 RDW 13.7 Plt Count 211 Sodium 143 Potassium 4.4 Chloride 103 Carbon Dioxide 32 H Anion Gap 12 BUN 21 H Creatinine 1.3 H Est GFR ( Amer) 48 Est GFR (Non-Af Amer) 40 POC Glucose (mg/dL) 77 99 Random Glucose 107 H Calcium 8.6 Total Bilirubin 0.2 AST 28 ALT 31 Alkaline Phosphatase 71 Total Protein 5.9 L Albumin 2.7 L Globulin 3.2 Albumin/Globulin Ratio 0.8 L 01/16/17 01/16/17 11:04 16:24 WBC RBC Hgb Hct MCV MCH MCHC RDW Plt Count Sodium Potassium Chloride Carbon Dioxide Anion Gap BUN Creatinine Est GFR ( Amer) Est GFR (Non-Af Amer) POC Glucose (mg/dL) 171 H 288 H Random Glucose Calcium Total Bilirubin AST ALT Alkaline Phosphatase Total Protein Albumin Globulin Albumin/Globulin Ratio Reviewed J.P. Assessment & Plan (1) Hypertension Status: Chronic Priority: Medium (2) Chronic low back pain Status: Chronic Priority: High (3) Hypothyroidism Status: Chronic Priority: Medium (4) Hypercholesterolemia Status: Chronic Priority: Medium (5) COPD exacerbation Status: Acute Priority: High (6) HCAP (healthcare-associated pneumonia) Status: Acute (7) Type 2 diabetes mellitus with hyperglycemia Status: Chronic - Assessment and Plan (Free Text) Plan: Continue Levaquin, Rocephin, Duoneb, Phenergan DM, Humalog and rest of Tx, PT, OT. - Date & Time Date: 01/16/17 Time: 17:00
[2017-01-17] MEDS ORDERED: Insulin Lispro (humaLOG) 100 Units/ml Inj SC ONE (00:36)
[2017-01-17] MEDS: Levothyroxine 100 MCG TAB PO SCH (06:10)
[2017-01-17] MEDS: Albuterol-Ipratrop 3 mg / 0.5 (3 ml) UD IH SCH ×3 (07:43→19:12)
[2017-01-17] MEDS: Enoxaparin 40 mg Syringe SC SCH (08:29)
[2017-01-17] MEDS: Patient's Own Med (Ranolazine [Ranexa] 1,000 MG) PO SCH ×2 (08:29→16:51)
[2017-01-17] MEDS: Bisacodyl 5mg EC Tab PO SCH (08:30)
[2017-01-17] MEDS: Insulin Lispro Mix 75/25 100 units/ml (HumaLog) 10ml SC SCH (08:30)
--- NOTE | 2017-01-17 13:48 | CP.PCM.PN ---
Subjective - Date & Time of Evaluation Date of Evaluation: 01/17/17 Time of Evaluation: 12:10 - Subjective Subjective: F/U COPD Exacerbation/ HCAP Dry cough on and off , less chest congestion Objective - Vital Signs/Intake and Output Vital Signs (last 24 hours): Temp Pulse Resp BP Pulse Ox 97.3 F L 77 20 170/77 H 91 L 01/17/17 08:04 01/17/17 08:29 01/17/17 08:04 01/17/17 08:29 01/17/17 08:04 - Medications Medications: Current Medications Acetaminophen (Tylenol 325mg Tab) 650 mg PO Q4H PRN PRN Reason: Temp >100 Acetaminophen (Tylenol 325mg Tab) 650 mg PO Q4H PRN PRN Reason: Pain, Mild (1-3) Last Admin: 01/16/17 21:45 Dose: 650 mg Albuterol/Ipratropium (Duoneb 3 Mg/0.5 Mg (3 Ml) Ud) 3 ml IH RQ4 PRN PRN Reason: Shortness of Breath Albuterol/Ipratropium (Duoneb 3 Mg/0.5 Mg (3 Ml) Ud) 3 ml IH RTID [facility] Last Admin: 01/17/17 07:43 Dose: 3 ml Alprazolam (Xanax) 0.25 mg PO DAILY PRN PRN Reason: Anxiety Stop: 01/22/17 21:46 Aspirin (Ecotrin) 81 mg PO DAILY [facility] Last Admin: 01/17/17 08:29 Dose: 81 mg Bisacodyl (Dulcolax) 5 mg PO DAILY [facility] Last Admin: 01/17/17 08:30 Dose: 5 mg Carvedilol (Coreg) 3.125 mg PO DAILY [facility] Last Admin: 01/17/17 08:29 Dose: 3.125 mg Docusate Sodium (Colace) 200 mg PO BID [facility] Last Admin: 01/17/17 08:29 Dose: 200 mg Enoxaparin Sodium (Lovenox) 40 mg SC DAILY [facility] PRN Reason: Protocol Last Admin: 01/17/17 08:29 Dose: 40 mg Home Med (Ranolazine [Ranexa]) 1,000 mg PO BID [facility] Last Admin: 01/17/17 08:29 Dose: 1,000 mg Ceftriaxone Sodium 1 gm/ (Sodium Chloride) 100 mls @ 100 mls/hr IVPB DAILY@ 0500 [facility] Last Admin: 01/17/17 06:01 Dose: 100 mls/hr Levofloxacin/Dextrose (Levaquin 750mg) 150 mls @ 100 mls/hr IVPB DAILY@1700 [facility] Insulin Lispro Protam/Lispro Human (Humalog Mix 75/25) 25 units SC DAILY [facility] Last Admin: 01/17/17 08:30 Dose: 25 units Lactulose (Enulose) 20 gm PO DAILY PRN PRN Reason: Constipation Levothyroxine Sodium (Synthroid) 100 mcg PO DAILY@0630 [facility] Last Admin: 01/17/17 06:10 Dose: 100 mcg Meclizine HCl (Antivert) 25 mg PO Q6H PRN PRN Reason: Dizziness Mineral Oil (Fleet Mineral Oil Enema) 135 ml [place] Q72H PRN PRN Reason: Constipation Nitroglycerin (Nitrostat Sl Tab) 0.4 mg SL Q5MIN PRN PRN Reason: chest pain Promethazine HCl/Dextromethorphan (Phenergan Dm Syrup) 5 ml PO Q6H PRN PRN Reason: Cough Last Admin: 01/16/17 09:03 Dose: 5 ml Torsemide (Demadex) 40 mg PO TUFR [facility] Last Admin: 01/16/17 00:25 Dose: Not Given - Labs Labs: 01/16/17 06:30 01/16/17 06:30 - Constitutional Appears: No Acute Distress, Chronically Ill - Head Exam Head Exam: NORMAL INSPECTION - Eye Exam Eye Exam: PERRL (R eye, L eye legally blimd.) - ENT Exam Additional comments: Hard of hearing R ear. - Neck Exam Neck Exam: Normal Inspection - Respiratory Exam Respiratory Exam: Decreased Breath Sounds (at bases), Rhonchi (scattered) Additional comments: Crackles at bases. - Cardiovascular Exam Cardiovascular Exam: REGULAR RHYTHM - GI/Abdominal Exam GI & Abdominal Exam: Soft, Normal Bowel Sounds - Extremities Exam Extremities Exam: Tenderness (Mild R-L knee. L TMA) - Back Exam Back Exam: tenderness (mild L-S) - Neurological Exam Neurological Exam: Alert Additional comments: No focal motor deficit, moves well extremities against gravity, decreased sensation R-L foot, generalized weakness - Psychiatric Exam Psychiatric exam: Anxious - Skin Skin Exam: Warm Additional comments: Ecchymosis U/E Assessment and Plan (1) Hypertension Status: Chronic (2) Chronic low back pain Status: Chronic (3) Hypothyroidism Status: Chronic (4) Hypercholesterolemia Status: Chronic (5) COPD exacerbation Status: Acute (6) HCAP (healthcare-associated pneumonia) Status: Acute (7) Type 2 diabetes mellitus with hyperglycemia Status: Chronic - Assessment and Plan (Free Text) Plan: Continue Rocephin , Levaquin , DuoNeb and rest of treatment, Patient very sensitive Insulin with tendency to hypoglicemia , continue Humalog mix 75/35 and accu check coverage
[2017-01-17] MEDS ORDERED: Insulin Regular 100 units/ml SC ONE (23:24)
[2017-01-18] MEDS: Promethazine DM 6.25 mg-15 mg/5 ml Syrup PO PRN (01:11)
[2017-01-18] MEDS: Levothyroxine 100 MCG TAB PO SCH (06:05)
[2017-01-18] MEDS: Albuterol-Ipratrop 3 mg / 0.5 (3 ml) UD IH SCH ×3 (07:31→19:28)
[2017-01-18] MEDS: Insulin Lispro Mix 75/25 100 units/ml (HumaLog) 10ml SC SCH (08:32)
[2017-01-18] MEDS: Enoxaparin 40 mg Syringe SC SCH ×2 (08:34→08:44)
[2017-01-18] MEDS: Patient's Own Med (Ranolazine [Ranexa] 1,000 MG) PO SCH ×2 (08:35→17:19)
[2017-01-18] MEDS: Bisacodyl 5mg EC Tab PO SCH (08:35)
--- NOTE | 2017-01-18 14:53 | CP.PCM.PN ---
Subjective - Date & Time of Evaluation Date of Evaluation: 01/18/17 Time of Evaluation: 12:30 - Subjective Subjective: F/U HCAP Cough and chest congestion improved. Objective - Vital Signs/Intake and Output Vital Signs (last 24 hours): Temp Pulse Resp BP Pulse Ox 98.0 F 74 20 159/71 H 97 01/18/17 08:29 01/18/17 08:35 01/18/17 08:29 01/18/17 08:35 01/18/17 08:29 - Medications Medications: Current Medications Acetaminophen (Tylenol 325mg Tab) 650 mg PO Q4H PRN PRN Reason: Temp >100 Acetaminophen (Tylenol 325mg Tab) 650 mg PO Q4H PRN PRN Reason: Pain, Mild (1-3) Last Admin: 01/16/17 21:45 Dose: 650 mg Albuterol/Ipratropium (Duoneb 3 Mg/0.5 Mg (3 Ml) Ud) 3 ml IH RQ4 PRN PRN Reason: Shortness of Breath Albuterol/Ipratropium (Duoneb 3 Mg/0.5 Mg (3 Ml) Ud) 3 ml IH RTID [facility] Last Admin: 01/18/17 13:33 Dose: 3 ml Alprazolam (Xanax) 0.25 mg PO DAILY PRN PRN Reason: Anxiety Stop: 01/22/17 21:46 Aspirin (Ecotrin) 81 mg PO DAILY [facility] Last Admin: 01/18/17 08:35 Dose: 81 mg Bisacodyl (Dulcolax) 5 mg PO DAILY [facility] Last Admin: 01/18/17 08:35 Dose: 5 mg Carvedilol (Coreg) 3.125 mg PO DAILY [facility] Last Admin: 01/18/17 08:35 Dose: 3.125 mg Docusate Sodium (Colace) 200 mg PO BID [facility] Last Admin: 01/18/17 08:35 Dose: 200 mg Enoxaparin Sodium (Lovenox) 40 mg SC DAILY [facility] PRN Reason: Protocol Last Admin: 01/18/17 08:44 Dose: Not Given Home Med (Ranolazine [Ranexa]) 1,000 mg PO BID [facility] Last Admin: 01/18/17 08:35 Dose: 1,000 mg Ceftriaxone Sodium 1 gm/ (Sodium Chloride) 100 mls @ 100 mls/hr IVPB DAILY@ 0500 [facility] Last Admin: 01/18/17 05:44 Dose: 100 mls/hr Levofloxacin/Dextrose (Levaquin 750mg) 150 mls @ 100 mls/hr IVPB DAILY@1700 [facility] Last Admin: 01/17/17 16:50 Dose: 100 mls/hr Insulin Lispro Protam/Lispro Human (Humalog Mix 75/25) 25 units SC DAILY [facility] Last Admin: 01/18/17 08:32 Dose: 25 units Lactulose (Enulose) 20 gm PO DAILY PRN PRN Reason: Constipation Levothyroxine Sodium (Synthroid) 100 mcg PO DAILY@0630 [facility] Last Admin: 01/18/17 06:05 Dose: 100 mcg Meclizine HCl (Antivert) 25 mg PO Q6H PRN PRN Reason: Dizziness Mineral Oil (Fleet Mineral Oil Enema) 135 ml [place] Q72H PRN PRN Reason: Constipation Nitroglycerin (Nitrostat Sl Tab) 0.4 mg SL Q5MIN PRN PRN Reason: chest pain Promethazine HCl/Dextromethorphan (Phenergan Dm Syrup) 5 ml PO Q6H PRN PRN Reason: Cough Last Admin: 01/18/17 01:11 Dose: 5 ml Torsemide (Demadex) 40 mg PO TUFR [facility] Last Admin: 01/16/17 00:25 Dose: Not Given - Labs Labs: 01/16/17 06:30 01/16/17 06:30 - Constitutional Appears: No Acute Distress, Chronically Ill - Head Exam Head Exam: NORMAL INSPECTION - Eye Exam Eye Exam: PERRL (R eye, L eye legally blind.) - ENT Exam Additional comments: Hard of hearing R ear. - Neck Exam Neck Exam: Normal Inspection - Respiratory Exam Respiratory Exam: Decreased Breath Sounds (at bases), Rhonchi (scattered) Additional comments: Crackles at the bases - Cardiovascular Exam Cardiovascular Exam: REGULAR RHYTHM - GI/Abdominal Exam GI & Abdominal Exam: Soft, Normal Bowel Sounds - Extremities Exam Extremities Exam: Tenderness (mild R-L knee. L TMA) - Back Exam Back Exam: tenderness (mild L-S) - Neurological Exam Neurological Exam: Alert Additional comments: No focal motor deficit, moves well extremities against gravity, decreased sensation R-L foot , generalized weakness. - Psychiatric Exam Psychiatric exam: Anxious - Skin Skin Exam: Warm Assessment and Plan (1) Hypertension Status: Chronic (2) Chronic low back pain Status: Chronic (3) Hypothyroidism Status: Chronic (4) Hypercholesterolemia Status: Chronic (5) COPD exacerbation Status: Acute (6) HCAP (healthcare-associated pneumonia) Status: Acute (7) Type 2 diabetes mellitus with hyperglycemia Status: Chronic - Assessment and Plan (Free Text) Plan: Continue Rocephin, Levaquin, Duoneb and rest of Tx, monitor BS.
[2017-01-18] MEDS ORDERED: Insulin Regular 100 units/ml SC STA (22:54)
[2017-01-19] MEDS: Levothyroxine 100 MCG TAB PO SCH (06:30)
[2017-01-19] MEDS: Albuterol-Ipratrop 3 mg / 0.5 (3 ml) UD IH SCH ×3 (07:34→20:28)
[2017-01-19] MEDS: Patient's Own Med (Ranolazine [Ranexa] 1,000 MG) PO SCH ×2 (08:17→17:42)
[2017-01-19] MEDS: Bisacodyl 5mg EC Tab PO SCH (08:18)
[2017-01-19] MEDS: Enoxaparin 40 mg Syringe SC SCH (08:18)
[2017-01-19] MEDS: Insulin Lispro Mix 75/25 100 units/ml (HumaLog) 10ml SC SCH (08:19)
[2017-01-19 11:14] LABS: MEAN CELL VOLUME 97.4 fl (81.0-99.0); MEAN CORPUSCULAR HEMOGLOBIN 31.8 pg (27.0-31.0); MEAN CORPUSCULAR HGB CONC 32.7 g/dL (33.0-37.0); RED CELL DISTRIBUTION WIDTH 13.6 % (11.5-14.5); WHITE BLOOD COUNT 9.1 K/uL (4.8-10.8)
[2017-01-19 11:21] LABS: BLOOD UREA NITROGEN 15 mg/dl (7-17); CALCIUM 8.9 mg/dL (8.4-10.2); CARBON DIOXIDE 29 mmol/L (22-30); CHLORIDE 104 mmol/L (98-107); GFR AFRICAN-AMERICAN > 60; GLUCOSE,RANDOM 157 mg/dL (65-105); POTASSIUM 4.1 MMOL/L (3.6-5.0); SODIUM 143 mmol/l (132-148)
--- NOTE | 2017-01-19 13:25 | RAD ---
PROCEDURE: Radiographs of the pelvis and bilateral hips HISTORY: pt claims pt fell COMPARISON: None. FINDINGS: BONES: Pelvis: Unremarkable. Right hip:Unremarkable. Left hip:Unremarkable. JOINTS: Right hip: Moderate osteoarthritic changes Left hip: Moderate osteoarthritic changes Sacroiliac Joints: Arthritic changes Pubic symphysis: Arthritic changes SOFT TISSUES: Normal. OTHER FINDINGS: None. IMPRESSION: Moderate osteoarthritic changes.
--- NOTE | 2017-01-19 13:29 | RAD ---
PROCEDURE: Bilateral Knee Radiographs. HISTORY: pt claims pt fell COMPARISON: None. FINDINGS: BONES: Right Knee: No evidence of fracture Left Knee: No evidence of fracture JOINTS: Right Knee: Moderate osteoarthritic change Left knee: Moderate osteoarthritic changes SOFT TISSUES: Right Knee: Soft tissue calcification Left Knee: Soft tissue calcification JOINT EFFUSION: Right Knee: None. Left Knee: None. OTHER FINDINGS: None. IMPRESSION: No evidence of acute fracture or dislocation.
--- NOTE | 2017-01-19 13:44 | CP.PCM.PN ---
Subjective - Date & Time of Evaluation Date of Evaluation: 01/19/17 Time of Evaluation: 12:45 - Subjective Subjective: F/U HCAP Dry cough , chest congestion, Patient slided from chair with her weight full on her L> R knee, She is complaining of pain L knee> R knee , L Hip > R Hip Objective - Vital Signs/Intake and Output Vital Signs (last 24 hours): Temp Pulse Resp BP Pulse Ox 97.7 F 80 20 163/78 H 99 01/19/17 08:12 01/19/17 08:12 01/19/17 08:12 01/19/17 08:12 01/19/17 08:12 - Medications Medications: Current Medications Acetaminophen (Tylenol 325mg Tab) 650 mg PO Q4H PRN PRN Reason: Temp >100 Acetaminophen (Tylenol 325mg Tab) 650 mg PO Q4H PRN PRN Reason: Pain, Mild (1-3) Last Admin: 01/19/17 09:18 Dose: 650 mg Albuterol/Ipratropium (Duoneb 3 Mg/0.5 Mg (3 Ml) Ud) 3 ml IH RQ4 PRN PRN Reason: Shortness of Breath Albuterol/Ipratropium (Duoneb 3 Mg/0.5 Mg (3 Ml) Ud) 3 ml IH RTID [facility] Last Admin: 01/19/17 13:31 Dose: 3 ml Alprazolam (Xanax) 0.25 mg PO DAILY PRN PRN Reason: Anxiety Stop: 01/22/17 21:46 Aspirin (Ecotrin) 81 mg PO DAILY [facility] Last Admin: 01/19/17 08:18 Dose: 81 mg Bisacodyl (Dulcolax) 5 mg PO DAILY [facility] Last Admin: 01/19/17 08:18 Dose: 5 mg Carvedilol (Coreg) 3.125 mg PO DAILY [facility] Last Admin: 01/19/17 08:19 Dose: 3.125 mg Docusate Sodium (Colace) 200 mg PO BID [facility] Last Admin: 01/19/17 08:18 Dose: 200 mg Home Med (Ranolazine [Ranexa]) 1,000 mg PO BID [facility] Last Admin: 01/19/17 08:17 Dose: 1,000 mg Ceftriaxone Sodium 1 gm/ (Sodium Chloride) 100 mls @ 100 mls/hr IVPB DAILY@ 0500 [facility] Last Admin: 01/19/17 05:07 Dose: 100 mls/hr Levofloxacin/Dextrose (Levaquin 750mg) 150 mls @ 100 mls/hr IVPB DAILY@1700 [facility] Last Admin: 01/18/17 17:19 Dose: 100 mls/hr Insulin Lispro Protam/Lispro Human (Humalog Mix 75/25) 25 units SC DAILY [facility] Last Admin: 01/19/17 08:19 Dose: 25 units Lactulose (Enulose) 20 gm PO DAILY PRN PRN Reason: Constipation Levothyroxine Sodium (Synthroid) 100 mcg PO DAILY@0630 [facility] Last Admin: 01/19/17 06:30 Dose: 100 mcg Meclizine HCl (Antivert) 25 mg PO Q6H PRN PRN Reason: Dizziness Mineral Oil (Fleet Mineral Oil Enema) 135 ml [place] Q72H PRN PRN Reason: Constipation Nitroglycerin (Nitrostat Sl Tab) 0.4 mg [place] Q5MIN PRN PRN Reason: chest pain Promethazine HCl/Dextromethorphan (Phenergan Dm Syrup) 5 ml PO Q6H PRN PRN Reason: Cough Last Admin: 01/18/17 01:11 Dose: 5 ml Torsemide (Demadex) 40 mg PO TUFR [facility] Last Admin: 01/16/17 00:25 Dose: Not Given - Labs Labs: 01/19/17 10:56 01/19/17 10:56 PT 11.0 SECONDS (9.6-11.2) 01/19/17 10:56 INR 1.06 (0.92-1.08) 01/19/17 10:56 - Constitutional Appears: No Acute Distress, Chronically Ill - Head Exam Head Exam: NORMAL INSPECTION - Eye Exam Eye Exam: PERRL (R eye, L eye legally blind.) - ENT Exam Additional comments: Hard of hearing R ear.. - Neck Exam Neck Exam: Normal Inspection - Respiratory Exam Respiratory Exam: Decreased Breath Sounds (at bases), Rhonchi, Wheezes (few scattered) Additional comments: Crackles at bases - Cardiovascular Exam Cardiovascular Exam: REGULAR RHYTHM - GI/Abdominal Exam GI & Abdominal Exam: Soft, Normal Bowel Sounds - Extremities Exam Extremities Exam: Tenderness (L knee > R knee , L Hip > R Hip , L TMA) - Back Exam Back Exam: tenderness (L-S) - Neurological Exam Neurological Exam: Awake Additional comments: No focal motor deficit, moves well extremities against gravity, decreased sensation R-L foot , generalized weakness - Psychiatric Exam Psychiatric exam: Anxious - Skin Skin Exam: Abrasion (small L Knee), Warm Assessment and Plan (1) Hypertension Status: Chronic (2) Chronic low back pain Status: Chronic (3) Hypothyroidism Status: Chronic (4) Hypercholesterolemia Status: Chronic (5) COPD exacerbation Status: Acute (6) HCAP (healthcare-associated pneumonia) Status: Acute (7) Type 2 diabetes mellitus with hyperglycemia Status: Chronic - Assessment and Plan (Free Text) Plan: Rocephin , Levaquin, Duoneb , add Mucomyst , Mucinex , and rest of Tx, f/u Hip , Knee X Rays, f/u Sputum C-S, CXR
[2017-01-19] MEDS: Acetylcysteine 10% 4 ML IH SCH (15:45)
[2017-01-19] MEDS ORDERED: Albuterol-Ipratrop 3 mg / 0.5 (3 ml) UD IH SCH (16:00)
[2017-01-19] MEDS: guaiFENesin 600 mg ER Tab PO SCH (22:05)
[2017-01-20] MEDS: Acetaminophen-Codeine 300/30 mg Tab PO PRN ×3 (00:09→18:13)
[2017-01-20] MEDS: Acetylcysteine 10% 4 ML IH SCH ×3 (01:33→19:11)
[2017-01-20] MEDS: Albuterol-Ipratrop 3 mg / 0.5 (3 ml) UD IH SCH ×4 (01:33→19:12)
[2017-01-20] MEDS: Levothyroxine 100 MCG TAB PO SCH (05:43)
[2017-01-20] MEDS: Budesonide 0.5 mg/2 ml Inhal Susp UD IH SCH ×2 (07:38→19:11)
[2017-01-20] MEDS: Insulin Lispro Mix 75/25 100 units/ml (HumaLog) 10ml SC SCH (08:46)
[2017-01-20] MEDS: Patient's Own Med (Ranolazine [Ranexa] 1,000 MG) PO SCH ×3 (08:46→17:48)
[2017-01-20] MEDS: guaiFENesin 600 mg ER Tab PO SCH ×2 (08:46→21:48)
[2017-01-20] MEDS: Bisacodyl 5mg EC Tab PO SCH (08:48)
--- NOTE | 2017-01-20 14:24 | RAD ---
HISTORY: Pneumonia. Portable study 12:25. COMPARISON: 01/12/2017. Single-view chest. 01/13/2017. CT thorax FINDINGS: LUNGS: Atelectatic changes primarily at the right base a new finding. PLEURA: No significant pleural effusion identified, no pneumothorax apparent. CARDIOVASCULAR: No radiographic findings to suggest acute or significant cardiovascular disease. OSSEOUS STRUCTURES: No significant abnormalities. VISUALIZED UPPER ABDOMEN: Normal. OTHER FINDINGS: None. IMPRESSION: New right lower lobe infiltrate/atelectasis.
--- NOTE | 2017-01-20 15:15 | CP.PCM.PN ---
Subjective - Date & Time of Evaluation Date of Evaluation: 01/20/17 Time of Evaluation: 13:00 - Subjective Subjective: F/U COPD Exacerbation. Cough with difficulty to bring up phlegms, chest congestion. Objective - Vital Signs/Intake and Output Vital Signs (last 24 hours): Temp Pulse Resp BP Pulse Ox 97.6 F 74 20 170/76 H 98 01/20/17 07:57 01/20/17 08:45 01/20/17 07:57 01/20/17 08:45 01/20/17 07:57 - Medications Medications: Current Medications Acetaminophen (Tylenol 325mg Tab) 650 mg PO Q4H PRN PRN Reason: Temp >100 Acetaminophen (Tylenol 325mg Tab) 650 mg PO Q4H PRN PRN Reason: Pain, Mild (1-3) Last Admin: 01/19/17 17:48 Dose: 650 mg Acetaminophen/Codeine Phosphate (Tylenol/Codeine 300 Mg/30 Mg) 1 tab PO Q4 PRN PRN Reason: Pain, severe (8-10) Last Admin: 01/20/17 10:48 Dose: 1 tab Acetylcysteine (Mucomyst 10% 4ml) 2 ml IH RQ8 [facility] Last Admin: 01/20/17 07:38 Dose: 2 ml Albuterol/Ipratropium (Duoneb 3 Mg/0.5 Mg (3 Ml) Ud) 3 ml IH RQ4 PRN PRN Reason: Shortness of Breath Last Admin: 01/19/17 15:45 Dose: 3 ml Albuterol/Ipratropium (Duoneb 3 Mg/0.5 Mg (3 Ml) Ud) 3 ml IH RQ6 [facility] Last Admin: 01/20/17 08:48 Dose: Not Given Alprazolam (Xanax) 0.25 mg PO DAILY PRN PRN Reason: Anxiety Stop: 01/22/17 21:46 Aspirin (Ecotrin) 81 mg PO DAILY [facility] Last Admin: 01/20/17 08:46 Dose: 81 mg Bisacodyl (Dulcolax) 5 mg PO DAILY [facility] Last Admin: 01/20/17 08:48 Dose: 5 mg Budesonide (Pulmicort Respules) 0.5 mg IH RBID [facility] Last Admin: 01/20/17 07:38 Dose: 0.5 mg Carvedilol (Coreg) 3.125 mg PO DAILY [facility] Last Admin: 01/20/17 08:45 Dose: 3.125 mg Docusate Sodium (Colace) 200 mg PO BID [facility] Last Admin: 01/20/17 08:45 Dose: 200 mg Guaifenesin (Mucinex La) 600 mg PO Q12 [facility] Last Admin: 01/20/17 08:46 Dose: 600 mg Home Med (Ranolazine [Ranexa]) 1,000 mg PO BID [facility] Last Admin: 01/20/17 08:46 Dose: 1,000 mg Ceftriaxone Sodium 1 gm/ (Sodium Chloride) 100 mls @ 100 mls/hr IVPB DAILY@ 0500 [facility] Last Admin: 01/20/17 04:34 Dose: 100 mls/hr Levofloxacin/Dextrose (Levaquin 750mg) 150 mls @ 100 mls/hr IVPB DAILY@1700 [facility] Last Admin: 01/19/17 17:41 Dose: 100 mls/hr Insulin Lispro Protam/Lispro Human (Humalog Mix 75/25) 25 units SC DAILY [facility] Last Admin: 01/20/17 08:46 Dose: 25 units Lactulose (Enulose) 20 gm PO DAILY PRN PRN Reason: Constipation Levothyroxine Sodium (Synthroid) 100 mcg PO DAILY@0630 [facility] Last Admin: 01/20/17 05:43 Dose: 100 mcg Meclizine HCl (Antivert) 25 mg PO Q6H PRN PRN Reason: Dizziness Mineral Oil (Fleet Mineral Oil Enema) 135 ml [place] Q72H PRN PRN Reason: Constipation Nitroglycerin (Nitrostat Sl Tab) 0.4 mg SL Q5MIN PRN PRN Reason: chest pain Promethazine HCl/Dextromethorphan (Phenergan Dm Syrup) 5 ml PO Q6H PRN PRN Reason: Cough Last Admin: 01/18/17 01:11 Dose: 5 ml Torsemide (Demadex) 40 mg PO TUFR [facility] Last Admin: 01/19/17 22:06 Dose: 40 mg - Labs Labs: 01/19/17 10:56 01/19/17 10:56 PT 11.0 SECONDS (9.6-11.2) 01/19/17 10:56 INR 1.06 (0.92-1.08) 01/19/17 10:56 - Constitutional Appears: No Acute Distress, Chronically Ill - Head Exam Head Exam: NORMAL INSPECTION - Eye Exam Eye Exam: PERRL (R eye. L eye legally blind) - ENT Exam Additional comments: Hard of hearing R ear. - Neck Exam Neck Exam: Normal Inspection - Respiratory Exam Respiratory Exam: Decreased Breath Sounds (at bases), Rhonchi (scattered b/l) Additional comments: crackles at bases - Cardiovascular Exam Cardiovascular Exam: REGULAR RHYTHM - GI/Abdominal Exam GI & Abdominal Exam: Soft, Normal Bowel Sounds - Extremities Exam Extremities Exam: Tenderness (L knee> L knee, L hip > R hip. L TMA. Mild tenderness hands L>R) - Back Exam Back Exam: tenderness (L-S) - Neurological Exam Neurological Exam: Awake Additional comments: No focal motor deficit, moves well extremities against gravity, decreased sensation R-L foot , generalized weakness - Psychiatric Exam Psychiatric exam: Anxious - Skin Skin Exam: Abrasion (small L knee), Warm Assessment and Plan (1) Hypertension Status: Chronic (2) Chronic low back pain Status: Chronic (3) Hypothyroidism Status: Chronic (4) Hypercholesterolemia Status: Chronic (5) COPD exacerbation Status: Acute (6) HCAP (healthcare-associated pneumonia) Status: Acute (7) Type 2 diabetes mellitus with hyperglycemia Status: Chronic - Assessment and Plan (Free Text) Plan: CXR New RLL infiltrate, atelectasis , Hip/Pelv X-Ray: O/A changes, Knees X-Ray : No Fx. or dislocation. Continue Rocephin, Solumedrol, Pulmicort and rest of Tx.
[2017-01-20] MEDS: Artificial Tears Opht Soln OU SCH ×2 (18:11→21:47)
[2017-01-21] MEDS: Albuterol-Ipratrop 3 mg / 0.5 (3 ml) UD IH SCH ×3 (01:09→13:41)
[2017-01-21] MEDS: Acetylcysteine 10% 4 ML IH SCH ×2 (01:10→08:06)
[2017-01-21] MEDS: Levothyroxine 100 MCG TAB PO SCH (05:32)
[2017-01-21] MEDS: Budesonide 0.5 mg/2 ml Inhal Susp UD IH SCH (08:06)
[2017-01-21] MEDS: guaiFENesin 600 mg ER Tab PO SCH ×2 (08:26→20:51)
[2017-01-21] MEDS: Artificial Tears Opht Soln OU SCH ×3 (08:27→16:25)
[2017-01-21] MEDS: Patient's Own Med (Ranolazine [Ranexa] 1,000 MG) PO SCH ×3 (08:27→16:36)
[2017-01-21] MEDS: Bisacodyl 5mg EC Tab PO SCH (08:28)
[2017-01-21] MEDS: Insulin Lispro Mix 75/25 100 units/ml (HumaLog) 10ml SC SCH (08:28)
--- NOTE | 2017-01-21 12:56 | CP.PCM.PN ---
Subjective - Date & Time of Evaluation Date of Evaluation: 01/21/17 Time of Evaluation: 10:30 - Subjective Subjective: F/U COPD Exacerbation Cough with difficulty to bring up phlegms, chest congestion. Objective - Vital Signs/Intake and Output Vital Signs (last 24 hours): Temp Pulse Resp BP Pulse Ox 97.6 F 85 20 139/60 99 01/21/17 08:21 01/21/17 08:28 01/21/17 08:21 01/21/17 08:28 01/21/17 08:21 - Medications Medications: Current Medications Acetaminophen (Tylenol 325mg Tab) 650 mg PO Q4H PRN PRN Reason: Temp >100 Acetaminophen (Tylenol 325mg Tab) 650 mg PO Q4H PRN PRN Reason: Pain, Mild (1-3) Last Admin: 01/21/17 08:39 Dose: 650 mg Acetaminophen/Codeine Phosphate (Tylenol/Codeine 300 Mg/30 Mg) 1 tab PO Q4 PRN PRN Reason: Pain, severe (8-10) Last Admin: 01/20/17 18:13 Dose: 1 tab Acetylcysteine (Mucomyst 10% 4ml) 2 ml IH RQ8 [facility] Last Admin: 01/21/17 08:06 Dose: Not Given Albuterol/Ipratropium (Duoneb 3 Mg/0.5 Mg (3 Ml) Ud) 3 ml IH RQ4 PRN PRN Reason: Shortness of Breath Last Admin: 01/19/17 15:45 Dose: 3 ml Albuterol/Ipratropium (Duoneb 3 Mg/0.5 Mg (3 Ml) Ud) 3 ml IH RQ6 [facility] Last Admin: 01/21/17 08:06 Dose: Not Given Alprazolam (Xanax) 0.25 mg PO DAILY PRN PRN Reason: Anxiety Stop: 01/22/17 21:46 Artificial Tears (Artificial Tears) 2 drop OU TID [facility] Last Admin: 01/21/17 12:19 Dose: 2 drop Aspirin (Ecotrin) 81 mg PO DAILY [facility] Last Admin: 01/21/17 08:27 Dose: 81 mg Bisacodyl (Dulcolax) 5 mg PO DAILY [facility] Last Admin: 01/21/17 08:28 Dose: 5 mg Budesonide (Pulmicort Respules) 0.5 mg IH RBID [facility] Last Admin: 01/21/17 08:06 Dose: Not Given Carvedilol (Coreg) 3.125 mg PO DAILY [facility] Last Admin: 01/21/17 08:28 Dose: 3.125 mg Docusate Sodium (Colace) 200 mg PO BID [facility] Last Admin: 01/21/17 08:27 Dose: 200 mg Guaifenesin (Mucinex La) 600 mg PO Q12 [facility] Last Admin: 01/21/17 08:26 Dose: 600 mg Home Med (Ranolazine [Ranexa]) 1,000 mg PO BID [facility] Last Admin: 01/21/17 08:27 Dose: 1,000 mg Levofloxacin/Dextrose (Levaquin 750mg) 150 mls @ 100 mls/hr IVPB DAILY@1700 [facility] Last Admin: 01/20/17 16:35 Dose: 100 mls/hr Ceftriaxone Sodium 1 gm/ (Sodium Chloride) 100 mls @ 100 mls/hr IVPB 1700 [facility] Insulin Lispro Protam/Lispro Human (Humalog Mix 75/25) 25 units SC DAILY [facility] Last Admin: 01/21/17 08:28 Dose: 25 units Lactulose (Enulose) 20 gm PO DAILY PRN PRN Reason: Constipation Levothyroxine Sodium (Synthroid) 100 mcg PO DAILY@0630 [facility] Last Admin: 01/21/17 05:32 Dose: 100 mcg Meclizine HCl (Antivert) 25 mg PO Q6H PRN PRN Reason: Dizziness Mineral Oil (Fleet Mineral Oil Enema) 135 ml [place] Q72H PRN PRN Reason: Constipation Nitroglycerin (Nitrostat Sl Tab) 0.4 mg SL Q5MIN PRN PRN Reason: chest pain Nystatin (Nystop Topical Powder) 1 applic TOP TID [facility] Ondansetron HCl (Zofran Inj) 4 mg IVP Q4 PRN PRN Reason: Nausea/Vomiting Last Admin: 01/20/17 18:18 Dose: 4 mg Promethazine HCl/Dextromethorphan (Phenergan Dm Syrup) 5 ml PO Q6H PRN PRN Reason: Cough Last Admin: 01/18/17 01:11 Dose: 5 ml Torsemide (Demadex) 40 mg PO TUFR [facility] Last Admin: 01/19/17 22:06 Dose: 40 mg - Labs Labs: 01/19/17 10:56 01/19/17 10:56 PT 11.0 SECONDS (9.6-11.2) 01/19/17 10:56 INR 1.06 (0.92-1.08) 01/19/17 10:56 - Constitutional Appears: No Acute Distress, Chronically Ill - Head Exam Head Exam: NORMAL INSPECTION - Eye Exam Eye Exam: PERRL (R eye, L eye legally blind) - ENT Exam Additional comments: Hard of hearing R ear. - Neck Exam Neck Exam: Normal Inspection - Respiratory Exam Respiratory Exam: Decreased Breath Sounds (at bases), Rales (at bases increased) , Rhonchi (scattered b/l), Wheezes (few scattered) - Cardiovascular Exam Cardiovascular Exam: REGULAR RHYTHM - GI/Abdominal Exam GI & Abdominal Exam: Soft, Normal Bowel Sounds - Extremities Exam Extremities Exam: Tenderness (L knee> R knee, L hip > R hip. L TMA. Mild tenderness hands L> R.) - Back Exam Back Exam: tenderness (L-S) - Neurological Exam Neurological Exam: Awake Additional comments: No focal motor deficit, moves well extremities against gravity, decreased sensation R-L foot , generalized weakness - Psychiatric Exam Psychiatric exam: Anxious - Skin Skin Exam: Warm Assessment and Plan (1) CHF (congestive heart failure) Status: Acute (2) Hypertension Status: Chronic (3) Chronic low back pain Status: Chronic (4) Hypothyroidism Status: Chronic (5) Hypercholesterolemia Status: Chronic (6) COPD exacerbation Status: Acute (7) HCAP (healthcare-associated pneumonia) Status: Acute (8) Type 2 diabetes mellitus with hyperglycemia Status: Chronic (9) CHF (congestive heart failure) Status: Acute - Assessment and Plan (Free Text) Plan: Continue current Tx, feels increased rales at bases 2nd to CHF, f/u Cardiology consult.
[2017-01-21 14:42] LABS: HEMATOCRIT 29.2 % (34.0-47.0); MEAN CELL VOLUME 96.5 fl (81.0-99.0); MEAN CORPUSCULAR HEMOGLOBIN 31.9 pg (27.0-31.0); MEAN CORPUSCULAR HGB CONC 33.1 g/dL (33.0-37.0); RED CELL DISTRIBUTION WIDTH 13.8 % (11.5-14.5); WHITE BLOOD COUNT 9.8 K/uL (4.8-10.8)
[2017-01-21 14:57] LABS: CALCIUM 8.7 mg/dL (8.4-10.2); POTASSIUM 4.5 MMOL/L (3.6-5.0)
[2017-01-22] MEDS: Albuterol-Ipratrop 3 mg / 0.5 (3 ml) UD IH SCH ×3 (01:13→13:03)
[2017-01-22] MEDS: Levothyroxine 100 MCG TAB PO SCH (05:42)
[2017-01-22] MEDS: Budesonide 0.5 mg/2 ml Inhal Susp UD IH SCH (07:50)
[2017-01-22 08:17] VITALS: TEMP 98.1
[2017-01-22 08:22] LABS: CALCIUM 8.6 mg/dL (8.4-10.2); POTASSIUM 4.4 MMOL/L (3.6-5.0)
[2017-01-22] MEDS: Insulin Lispro Mix 75/25 100 units/ml (HumaLog) 10ml SC SCH (09:31)
[2017-01-22] MEDS: Artificial Tears Opht Soln OU SCH ×2 (09:42→12:29)
[2017-01-22] MEDS: Bisacodyl 5mg EC Tab PO SCH (10:28)
[2017-01-22] MEDS: guaiFENesin 600 mg ER Tab PO SCH (10:29)
[2017-01-22] MEDS: Patient's Own Med (Ranolazine [Ranexa] 1,000 MG) PO SCH (11:38)
--- NOTE | 2017-01-22 14:51 | CP.PCM.PN ---
Subjective - Date & Time of Evaluation Date of Evaluation: 01/22/17 Time of Evaluation: 11:30 - Subjective Subjective: F/U COPD Exacerbation Cough,Chest congestion , difficult to bring phlegm , SOB Objective - Vital Signs/Intake and Output Vital Signs (last 24 hours): Temp Pulse Resp BP Pulse Ox 98.1 F 90 20 127/56 L 99 01/22/17 08:16 01/22/17 11:39 01/22/17 08:16 01/22/17 11:39 01/22/17 08:16 - Medications Medications: Current Medications Acetaminophen (Tylenol 325mg Tab) 650 mg PO Q4H PRN PRN Reason: Temp >100 Acetaminophen (Tylenol 325mg Tab) 650 mg PO Q4H PRN PRN Reason: Pain, Mild (1-3) Last Admin: 01/21/17 16:22 Dose: 650 mg Acetaminophen/Codeine Phosphate (Tylenol/Codeine 300 Mg/30 Mg) 1 tab PO Q4 PRN PRN Reason: Pain, severe (8-10) Last Admin: 01/20/17 18:13 Dose: 1 tab Albuterol/Ipratropium (Duoneb 3 Mg/0.5 Mg (3 Ml) Ud) 3 ml IH RQ4 PRN PRN Reason: Shortness of Breath Last Admin: 01/19/17 15:45 Dose: 3 ml Albuterol/Ipratropium (Duoneb 3 Mg/0.5 Mg (3 Ml) Ud) 3 ml IH RQ6 [facility] Last Admin: 01/22/17 07:50 Dose: Not Given Alprazolam (Xanax) 0.25 mg PO DAILY PRN PRN Reason: Anxiety Stop: 01/22/17 21:46 Artificial Tears (Artificial Tears) 2 drop OU TID [facility] Last Admin: 01/22/17 12:29 Dose: 2 drop Aspirin (Ecotrin) 81 mg PO DAILY [facility] Last Admin: 01/22/17 11:40 Dose: 81 mg Bisacodyl (Dulcolax) 5 mg PO DAILY [facility] Last Admin: 01/22/17 10:28 Dose: Not Given Budesonide (Pulmicort Respules) 0.5 mg IH RBID [facility] Last Admin: 01/22/17 07:50 Dose: Not Given Carvedilol (Coreg) 3.125 mg PO DAILY [facility] Last Admin: 01/22/17 11:39 Dose: 3.125 mg Docusate Sodium (Colace) 200 mg PO BID [facility] Last Admin: 01/22/17 10:28 Dose: Not Given Guaifenesin (Mucinex La) 600 mg PO Q12 [facility] Last Admin: 01/22/17 10:29 Dose: Not Given Home Med (Ranolazine [Ranexa]) 1,000 mg PO BID [facility] Last Admin: 01/22/17 11:38 Dose: Not Given Levofloxacin/Dextrose (Levaquin 750mg) 150 mls @ 100 mls/hr IVPB DAILY@1700 [facility] Last Admin: 01/21/17 16:26 Dose: 100 mls/hr Ceftriaxone Sodium 1 gm/ (Sodium Chloride) 100 mls @ 100 mls/hr IVPB 1700 [facility] Last Admin: 01/22/17 05:37 Dose: 100 mls/hr Insulin Lispro Protam/Lispro Human (Humalog Mix 75/25) 25 units SC DAILY [facility] Last Admin: 01/22/17 09:31 Dose: Not Given Lactulose (Enulose) 20 gm PO DAILY PRN PRN Reason: Constipation Levothyroxine Sodium (Synthroid) 100 mcg PO DAILY@0630 [facility] Last Admin: 01/22/17 05:42 Dose: 100 mcg Meclizine HCl (Antivert) 25 mg PO Q6H PRN PRN Reason: Dizziness Mineral Oil (Fleet Mineral Oil Enema) 135 ml [place] Q72H PRN PRN Reason: Constipation Nitroglycerin (Nitrostat Sl Tab) 0.4 mg SL Q5MIN PRN PRN Reason: chest pain Nystatin (Nystop Topical Powder) 1 applic TOP TID [facility] Last Admin: 01/22/17 12:30 Dose: 1 applic Ondansetron HCl (Zofran Inj) 4 mg IVP Q4 PRN PRN Reason: Nausea/Vomiting Last Admin: 01/22/17 09:18 Dose: 4 mg Promethazine HCl/Dextromethorphan (Phenergan Dm Syrup) 5 ml PO Q6H PRN PRN Reason: Cough Last Admin: 01/18/17 01:11 Dose: 5 ml Torsemide (Demadex) 40 mg PO TUFR [facility] Last Admin: 01/19/17 22:06 Dose: 40 mg - Labs Labs: 01/21/17 14:15 01/22/17 07:43 PT 11.0 SECONDS (9.6-11.2) 01/19/17 10:56 INR 1.06 (0.92-1.08) 01/19/17 10:56 - Constitutional Appears: No Acute Distress, Chronically Ill - Head Exam Head Exam: NORMAL INSPECTION - Eye Exam Eye Exam: PERRL (R eye, L eye legally blind.) - ENT Exam ENT Exam: Normal Oropharynx Additional comments: Hard of hearing R ear. - Neck Exam Neck Exam: Normal Inspection - Respiratory Exam Respiratory Exam: Decreased Breath Sounds (at bases), Rales (at bases increased) , Rhonchi, Wheezes (few scattered) - Cardiovascular Exam Cardiovascular Exam: REGULAR RHYTHM - GI/Abdominal Exam GI & Abdominal Exam: Soft, Normal Bowel Sounds - Extremities Exam Extremities Exam: Tenderness (L knee>R knee, L hip > R hip. L TMA. Mild tenderness hands L>R) - Back Exam Back Exam: tenderness (L-S) - Neurological Exam Neurological Exam: Awake Additional comments: No focal motor deficit, moves well extremities agains gravity, decreased sensation R-L foot , generalized weakness - Psychiatric Exam Psychiatric exam: Anxious - Skin Skin Exam: Abrasion (Small L knee), Warm Assessment and Plan (1) CHF (congestive heart failure) Status: Acute (2) Hypertension Status: Chronic (3) Chronic low back pain Status: Chronic (4) Hypothyroidism Status: Chronic (5) Hypercholesterolemia Status: Chronic (6) COPD exacerbation Status: Acute (7) HCAP (healthcare-associated pneumonia) Status: Acute (8) Type 2 diabetes mellitus with hyperglycemia Status: Chronic - Assessment and Plan (Free Text) Plan: I feel PNA is resolved, increased rales at bases with rhonchi , wheezes are 2nd to CHF and COPD, will transfer Patient to ER for further management and treatment
[2017-01-22 15:37] VITALS: BP 139/64; PULSE 83; O2SAT 96
== END 2017-01-22 16:30 | disposition short-term general hospital (02) | DRG 541 ==
LOC: H.TCU 18:45 → UNDOADMIN 19:21
PROVIDERS: ADMIT Internal Medicine Pulmonary Disease; ATTEND Internal Medicine Pulmonary Disease
PROC: F07L0ZZ Range of Motion and Joint Mobility Treatment of Musculoskeletal System - Lower Back / Lower Extremity (ICD-10-PCS; principal; 2017-01-15)
PROC: 5A0955Z Assistance with Respiratory Ventilation, Greater than 96 Consecutive Hours (ICD-10-PCS; 2017-01-15)
PROC: F08Z4ZZ Home Management Treatment (ICD-10-PCS; 2017-01-15)
DX: J44.0 Chronic obstructive pulmonary disease with (acute) lower respiratory infection (principal); J18.9 Pneumonia, unspecified organism; I11.0 Hypertensive heart disease with heart failure; E11.65 Type 2 diabetes mellitus with hyperglycemia; I50.9 Heart failure, unspecified; N39.0 Urinary tract infection, site not specified; J44.1 Chronic obstructive pulmonary disease with (acute) exacerbation; E03.9 Hypothyroidism, unspecified; E78.00 Pure hypercholesterolemia, unspecified; G89.29 Other chronic pain; Z88.5 Allergy status to narcotic agent; Z88.0 Allergy status to penicillin; Z91.018 Allergy to other foods

== ENCOUNTER 2017-01-22 16:40 | Inpatient (IN) | payer MEDICAID ==
[2017-01-22 16:40] VITALS: BMI 29.7
--- NOTE | 2017-01-22 17:10 | ED PDOC ---
HPI: SOB/CHF/COPD Time Seen by Provider: 01/22/17 16:55 Chief Complaint (Nursing): Shortness Of Breath Chief Complaint (Provider): shortness of breath History Per: Patient, Family, Other (medical chart) Current Symptoms Are (Timing): Still Present Associated Symptoms: Productive Cough, Ankle/Leg Swelling. denies: Fever Additional Complaint(s): Pt with shortness of breath for a week, has been hospitalized for pneumonia and then placed in TCU for continued care, but symptoms persist. Sent to ER for further evaluation and management. Past Medical History Reviewed: Historical Data, Nursing Documentation, Vital Signs Vital Signs: Last Vital Signs Temp 99.0 F 01/22/17 16:57 Pulse 83 01/22/17 16:57 Resp 16 01/22/17 16:57 BP 151/70 H 01/22/17 16:57 Pulse Ox 96 01/22/17 16:57 - Medical History PMH: Anemia, Anxiety, Arthritis, Asthma, Back Problems, CAD, CHF, COPD, Depression, Diabetes, Gastritis, HTN, Hypercholesterolemia, Hyperlipidemia, Hypothyroidism, Peripheral Edema, Pneumonia, Chronic Kidney Disease Denies: HIV, Rheumatoid Arthritis - Surgical History Surgical History: CABG (x4), Cholecystectomy, Coronary Stent - Family History Family History: States: Unknown Family Hx - Social History Current smoker - smoking cessation education provided: No - Home Medications Home Medications: Ambulatory Orders Medication Instructions Recorded ALPRAZolam [Xanax] 0.25 mg PO DAILY PRN 01/12/17 Acetaminophen [Tylenol 325mg tab] 650 mg PO Q4H PRN 01/12/17 Acetaminophen [Tylenol 325mg tab] 650 mg PO Q4H PRN 01/12/17 Albuterol/Ipratropium [Duoneb 3 3 ml IH Q4H PRN 01/12/17 mg/0.5 mg (3 ml) UD] Aspirin [Ecotrin] 81 mg PO DAILY 01/12/17 Bisacodyl [Women's Laxative] 5 mg PO DAILY 01/12/17 Carvedilol [Coreg] 3.125 mg PO DAILY 01/12/17 Docusate [Colace] 200 mg PO BID 01/12/17 Insulin Human (NPH)/Regular 25 unit SC DAILY 01/12/17 [Novolin 70/30 (70/30 units/ml) 10 ml] Lactulose [Generlac] 30 ml PO DAILY PRN 01/12/17 Levothyroxine [Synthroid] 100 mcg PO DAILY 01/12/17 Meclizine [Meclizine*] 25 mg PO Q6H PRN 01/12/17 Mineral Oil [Fleet Mineral Oil 135 ml [place] Q72H PRN 01/12/17 Enema] Nitroglycerin [Nitrostat] 0.4 mg SL Q5MIN PRN 01/12/17 Promethazine DM [Phenergan DM 5 ml PO Q6H PRN 01/12/17 Syrup] Ranolazine [Ranexa] 1,000 mg PO BID 01/12/17 Torsemide [Demadex] 40 mg PO TUFR 01/12/17 cefTRIAXone 1 gm [Rocephin 1 gram 1 gm IVPB DAILY #8 bag 01/15/17 IVPB] levoFLOXacin 750 mg in D5W 750 mg IVPB DAILY #8 bag 01/15/17 [Levaquin 750MG] Acetaminophen with Codeine 1 tab PO Q4H PRN 01/22/17 [Tylenol with Codeine #3 Tablet] Albuterol/Ipratropium [Duoneb 3 3 ml IH Q6H 01/22/17 mg/0.5 mg (3 ml) UD] Budesonide [Pulmicort Respules] 2 ml IH BID 01/22/17 Nystatin [Nystop Topical Powder] 1 appl TOP TID 01/22/17 Ondansetron [Zofran Inj] 4 mg IV Q4H PRN 01/22/17 Polyethylene Glycol/Polyvinyl 2 drop OU TID 01/22/17 [Artificial Tears] guaiFENesin [Mucinex LA] 600 mg PO Q12H 01/22/17 - Allergies Allergies/Adverse Reactions: Allergies Allergy/AdvReac Type Severity Reaction Status Date / Time kiwi Allergy Mild RASH Verified 01/12/17 16:51 morphine Allergy Mild RASH Verified 01/12/17 16:51 Penicillins Allergy Mild RASH Verified 01/12/17 16:51 pineapple Allergy Mild RASH Verified 01/12/17 16:51 watermelon Allergy Mild RASH Verified 01/12/17 16:51 Review of Systems ROS Statement: Except As Marked, All Systems Reviewed And Found Negative (and as per HPI) Constitutional: Negative for: Fever, Chills Cardiovascular: Positive for: Edema Respiratory: Positive for: Cough, Shortness of Breath, SOB with Exertion, Sputum Physical Exam - Reviewed Nursing Documentation Reviewed: Yes Vital Signs Reviewed: Yes - Physical Exam Appears: Positive for: Non-toxic (but chronically ill appearing) Skin: Positive for: Warm, Dry, Pallor Eye Exam: Positive for: EOMI, PERRL ENT: Negative for: Pharyngeal Erythema, Tonsillar Exudate Neck: Positive for: Painless ROM, Supple Cardiovascular/Chest: Positive for: Regular Rate, Rhythm, Edema (trace bilateral leg). Negative for: Murmur Respiratory: Positive for: Rales (diffuse). Negative for: Accessory Muscle Use , Respiratory Distress Gastrointestinal/Abdominal: Positive for: Soft. Negative for: Tenderness Back: Positive for: Normal Inspection. Negative for: Muscle Spasm Extremity: Positive for: Normal ROM, Pedal Edema, Other (LEFT foot partial amputation) Lymphatic: Negative for: Adenopathy Neurologic/Psych: Positive for: Alert. Negative for: Motor/Sensory Deficits - ECG ECG: Positive for: Interpreted By Me ECG Rhythm: Positive for: Normal QRS, Normal ST Segment, Sinus Rhythm O2 Sat by Pulse Oximetry: 96 Pulse Ox Interpretation: Normal Disposition - Clinical Impression Clinical Impression: Chr obstructive pulmonary disease w/ acute lower respiratory infxn, CHF ( congestive heart failure) Counseled Patient/Family Regarding: Studies Performed, Diagnosis - Disposition Disposition Time: 17:00 Condition: SERIOUS - POA Present On Arrival: Poor Glycemic Control
[2017-01-22] MEDS ORDERED: Mineral Oil Enema 135 ml PR PRN (22:12)
[2017-01-22] MEDS ORDERED: Acetaminophen-Codeine 300/30 mg Tab PO PRN (22:12)
[2017-01-23 00:19] LABS: BASO # 0.1 K/uL (0.0-0.2); BASO % 1.4 % (0.0-2.0); EOS # 0.3 K/uL (0.0-0.7); EOS % 3.4 % (0.0-4.0); LYMPH # 1.3 K/uL (1.0-4.3); LYMPH % 16.9 % (20.0-40.0); MEAN CELL VOLUME 95.6 fl (81.0-99.0); MEAN CORPUSCULAR HEMOGLOBIN 32.3 pg (27.0-31.0); MEAN CORPUSCULAR HGB CONC 33.8 g/dL (33.0-37.0); MEAN PLATELET VOLUME 7.9 fl (7.2-11.7); MONO # 0.9 K/uL (0.0-0.8); MONO % 11.3 % (0.0-10.0); NEUT # 5.3 K/uL (1.8-7.0); RED CELL DISTRIBUTION WIDTH 13.7 % (11.5-14.5); WHITE BLOOD COUNT 7.9 K/uL (4.8-10.8)
[2017-01-23 00:29] LABS: ALKALINE PHOSPHATASE 99 U/L (38-126); ALT/SGPT 23 U/L (9-52); AST/SGOT 24 U/L (14-36); BILIRUBIN,TOTAL 0.2 mg/dl (0.2-1.3); BLOOD UREA NITROGEN 16 mg/dl (7-17); CALCIUM 8.7 mg/dL (8.4-10.2); CARBON DIOXIDE 31 mmol/L (22-30); CHLORIDE 99 mmol/L (98-107); GFR AFRICAN-AMERICAN 44; GLUCOSE,RANDOM 285 mg/dL (65-105); MAGNESIUM 1.9 MG/DL (1.6-2.3); PHOSPHOROUS 2.8 mg/dl (2.5-4.5); POTASSIUM 4.5 MMOL/L (3.6-5.0); SODIUM 133 mmol/l (132-148); TOTAL PROTEIN 6.2 G/DL (6.3-8.2)
[2017-01-23 00:33] LABS: ALB/GLOB RATIO 0.8 (1.0-2.1)
[2017-01-23 00:42] LABS: PARTIAL THROMBOPLASTIN TIME 31.5 SECONDS (23.3-32.5)
[2017-01-23] MEDS: guaiFENesin 600 mg ER Tab PO SCH ×3 (02:29→21:17)
--- NOTE | 2017-01-23 06:51 | RAD ---
HISTORY: chf copd COMPARISON: No prior. FINDINGS: LUNGS: No active pulmonary disease. PLEURA: No significant pleural effusion identified, no pneumothorax apparent. CARDIOVASCULAR: Normal. Post CABG. OSSEOUS STRUCTURES: No significant abnormalities. VISUALIZED UPPER ABDOMEN: Normal. OTHER FINDINGS: None. IMPRESSION: No active disease.
[2017-01-23 07:03] LABS: HEMATOCRIT 28.3 % (34.0-47.0); MEAN CELL VOLUME 97.2 fl (81.0-99.0); MEAN CORPUSCULAR HEMOGLOBIN 32.3 pg (27.0-31.0); MEAN CORPUSCULAR HGB CONC 33.2 g/dL (33.0-37.0); RED CELL DISTRIBUTION WIDTH 13.5 % (11.5-14.5); WHITE BLOOD COUNT 7.9 K/uL (4.8-10.8)
[2017-01-23 07:56] LABS: ALB/GLOB RATIO 0.8 (1.0-2.1); BILIRUBIN,TOTAL 0.3 mg/dl (0.2-1.3); CALCIUM 8.5 mg/dL (8.4-10.2); POTASSIUM 4.5 MMOL/L (3.6-5.0); TOTAL PROTEIN 5.8 G/DL (6.3-8.2)
[2017-01-23] MEDS: Albuterol-Ipratrop 3 mg / 0.5 (3 ml) UD IH PRN (08:12)
[2017-01-23] MEDS: Budesonide 0.5 mg/2 ml Inhal Susp UD IH SCH ×2 (08:12→19:52)
[2017-01-23] MEDS: Patient's Own Med (Ranolazine [Ranexa] 1,000 MG) PO SCH ×2 (08:33→16:35)
[2017-01-23] MEDS: Artificial Tears Opht Soln OU SCH ×3 (08:33→16:32)
[2017-01-23] MEDS: Levothyroxine 100 MCG TAB PO SCH (08:36)
[2017-01-23] MEDS: Bisacodyl 5mg EC Tab PO SCH (08:39)
[2017-01-23] MEDS: Insulin Lispro Mix 75/25 100 units/ml (HumaLog) 10ml SC SCH (08:41)
--- NOTE | 2017-01-23 11:16 | CARD ---
APPROVED REPORT EXAM: Two-dimensional and M-mode echocardiogram with Doppler and color Doppler. Other Information Quality : AverageRhythm : NSR INDICATION Congestive Heart Failure Surgery/Intervention CABD DIMENSIONS IVSd1.19 (0.7-1.1cm)LVDd3.76 (3.9-5.9cm) LVOT Diameter2.14 (1.8-2.4cm)PWd1.21 (0.7-1.1cm) IVSs1.32 (0.8-1.2cm)LVDs3.03 (2.5-4.0cm) FS (%) 19.5 %PWs1.22 (0.8-1.2cm) M-Mode DIMENSIONS Left Atrium (MM)5.29 (2.5-4.0cm)IVSd1.09 (0.7-1.1cm) Aortic Root3.11 (2.2-3.7cm)LVDd3.94 (4.0-5.6cm) Aortic Cusp Exc.1.52 (1.5-2.0cm)PWd1.03 (0.7-1.1cm) IVSs1.39 cmFS (%) 34 % LVDs2.61 (2.0-3.8cm)PWs1.52 cm Mitral Valve MV E Dlrgmdai13.5cm/sMV DECEL [id number] A Bwvauvdx29.9cm/s MV [id number]/A ratio0.9MVA (PHT)2.33cm2 TDI E/Lateral E'0.0E/Medial E'0.0 Pulmonary Valve PV Peak Yaifelpw51.3cm/s LEFT VENTRICLE The left ventricle is normal size. There is normal left ventricular wall thickness. Left ventricle systolic function is normal. The Ejection Fraction is 60-65%. There is normal LV segmental wall motion. Transmitral Doppler flow pattern is Grade I-abnormal relaxation pattern. RIGHT VENTRICLE The right ventricle is normal size. There is normal right ventricular wall thickness. The right ventricular systolic function is normal. ATRIA The left atrium is mildly dilated. The right atrium size is normal. AORTIC VALVE The aortic valve is normal in structure and function. No aortic regurgitation is present. There is no aortic valvular stenosis. MITRAL VALVE The mitral valve is normal in structure and function. There is no evidence of mitral valve prolapse. There is no mitral valve stenosis. There is no mitral valve regurgitation noted. TRICUSPID VALVE The tricuspid valve is normal in structure and function. There is no tricuspid valve regurgitation noted. PULMONIC VALVE The pulmonary valve is normal in structure and function. There is no pulmonic valvular regurgitation. GREAT VESSELS The aortic root is normal in size. Due to poor image quality, the IVC could not be assessed. PERICARDIAL EFFUSION The pericardium appears normal. <Conclusion> Suboptimal images due to poor window. The left ventricle is normal size. There is normal left ventricular wall thickness. There is normal LV segmental wall motion. Left ventricle systolic function is normal. The Ejection Fraction is 60-65%. Transmitral Doppler flow pattern is Grade I-abnormal relaxation pattern. The left atrium is mildly dilated.
--- NOTE | 2017-01-23 11:23 | CARD ---
APPROVED REPORT EKG Measurement Heart [id number] <Conclusion> Normal sinus rhythm Normal ECG
--- NOTE | 2017-01-23 14:20 | CP.PCM.HP ---
History of Present Illness - History of Present Illness History of Present Illness: CC: SOB. 76 y/o F, with previous admission to [facility] on 01/12/17 Tx for COPD Exacerbation, HCAP, eventually Pt improved and was transferred to TCU unit on 01/16/17 to complete abx Tx. On 01/22/17, while in TCU floor, Pt begins with increased SOB, VILLALOBOS associated to increased dry cough and was sent to ER for evaluation, there after admitted to Telemetry for management of illness. Pt denied: Fever, chills, n/v/d, abdominal pain, CP, sick contact. PMHx: COPD, Asthma, DMII, Hyperglycemia, CHF, CAD, HTN, Hypothyroidism, Hypercholesterolemia, CKD, Gastritis, chronic Back pain, Hx of CABG, Coronary Stent, L TMA, multiple admissions for UTI. CXR shows: No active disease. EKG: Normal sinus rhythm. Echo: LV normal, LVEF 60-65% Present on Admission - Present on Admission Any Indicators Present on Admission: Yes History of Uncontrolled Diabetes: Yes Review of Systems - Constitutional Constitutional: Weakness - EENT Eyes: Loss of Vision (Left eye) Ears: Decreased Hearing (R ear) Nose/Mouth/Throat: Other (negative) - Cardiovascular Cardiovascular: Dyspnea, Leg Edema - Respiratory Respiratory: Cough, Dyspnea, Dyspnea on Exertion, Wheezing - Gastrointestinal Gastrointestinal: Other (negative) - Genitourinary Genitourinary: Urinary Incontinence - Musculoskeletal Musculoskeletal: Arthralgias, Back Pain, Muscle Weakness - Integumentary Integumentary: Other (Sacral redness) - Neurological Neurological: Weakness - Psychiatric Psychiatric: Anxiety - Endocrine Endocrine: Other (negative) - Hematologic/Lymphatic Hematologic: Other ( anemia.) Past Patient History - Infectious Disease Hx of Infectious Diseases: None - Past Medical History & Family History Past Medical History?: Yes Pertinent Family History: Unknown - Past Social History Smoking Status: Never Smoked Alcohol: None Drugs: Denies Home Situation {Lives}: With Family - CARDIAC Hx Cardiac Disorders: Yes Hx Congestive Heart Failure: Yes Hx Hypercholesterolemia: Yes Hx Hypertension: Yes Hx Pacemaker: No Hx Peripheral Edema: Yes Other/Comment: CABG X 4; Stents - PULMONARY Hx Respiratory Disorders: Yes Hx Asthma: Yes Hx Chronic Obstructive Pulmonary Disease (COPD): Yes Hx Pneumonia: Yes - NEUROLOGICAL Hx Neurological Disorder: No - HEENT Hx HEENT Problems: Yes 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) - RENAL Hx Chronic Kidney Disease: Yes - ENDOCRINE/METABOLIC Hx Endocrine Disorders: Yes Hx Diabetes Mellitus Type 2: Yes Hx Hypothyroidism: Yes - HEMATOLOGICAL/ONCOLOGICAL Hx Blood Disorders: Yes Hx Anemia: Yes Hx Human Immunodeficiency Virus (HIV): No - INTEGUMENTARY Hx Dermatological Problems: No - MUSCULOSKELETAL/RHEUMATOLOGICAL Hx Musculoskeletal Disorders: Yes Hx Arthritis: Yes Hx Back Pain: Yes Hx Falls: No Hx Rheumatoid Arthritis: No - GASTROINTESTINAL Hx Gastrointestinal Disorders: Yes Hx Gastritis: Yes - GENITOURINARY/GYNECOLOGICAL Hx Genitourinary Disorders: Yes Hx Incontinence: Yes Hx Urinary Tract Infection: Yes - PSYCHIATRIC Hx Psychophysiologic Disorder: Yes Hx Anxiety: Yes Hx Depression: Yes Hx Substance Use: No - SURGICAL HISTORY Hx Surgeries: Yes Hx Cholecystectomy: Yes Hx Coronary Artery Bypass Graft: Yes (x4) Hx Coronary Stent: Yes - ANESTHESIA Hx Anesthesia: Yes Hx Anesthesia Reactions: No Hx Malignant Hyperthermia: No Meds Home Medications: Home Medication List Medication Instructions Recorded Confirmed Type Furosemide [Lasix] 40 mg PO DAILY #14 [facility] [place] 01/25/17 Rx Allergies/Adverse Reactions: Allergies Allergy/AdvReac Type Severity Reaction Status Date / Time kiwi Allergy Mild RASH Verified 01/12/17 16:51 morphine Allergy Mild RASH Verified 01/12/17 16:51 Penicillins Allergy Mild RASH Verified 01/12/17 16:51 pineapple Allergy Mild RASH Verified 01/12/17 16:51 watermelon Allergy Mild RASH Verified 01/12/17 16:51 Physical Exam - Constitutional Appears: No Acute Distress - Head Exam Head Exam: NORMAL INSPECTION - Eye Exam Eye Exam: PERRL (R eye, L eye blind.) - ENT Exam Additional comments: hard of hearing R ear - Neck Exam Neck exam: Positive for: Normal Inspection - Respiratory Exam Respiratory Exam: Decreased Breath Sounds (at bases), Rhonchi (b/l), Wheezes ( scattered) - Cardiovascular Exam Cardiovascular Exam: REGULAR RHYTHM - GI/Abdominal Exam GI & Abdominal Exam: Normal Bowel Sounds, Soft - Extremities Exam Extremities exam: Positive for: tenderness (Mild R-L knee) Additional comments: Legs trace edema, L TMA - Back Exam Back exam: tenderness (mild L-S) Additional comments: Sacral redness. - Neurological Exam Neurological exam: Alert Additional comments: At times forgetful, moves well all extremities against gravity. decreased sensation R foot. - Psychiatric Exam Psychiatric exam: Anxious - Skin Skin Exam: Warm Additional comments: Ecchymosis U/E Results - Vital Signs Recent Vital Signs: Last Vital Signs Temp 98.5 F 01/23/17 12:35 Pulse 72 01/23/17 12:35 Resp 20 01/23/17 12:35 BP 108/47 L 01/23/17 12:35 Pulse Ox 94 L 01/23/17 12:35 reviewed J.P. - Labs Result Diagrams: 01/25/17 10:00 01/25/17 10:00 Labs: Laboratory Results - last 24 hr 01/23/17 01/23/17 01/23/17 05:00 05:00 05:35 WBC 7.9 RBC 2.91 L Hgb 9.4 L Hct 28.3 L MCV 97.2 MCH 32.3 H MCHC 33.2 RDW 13.5 Plt Count 164 Sodium 134 Potassium 4.5 Chloride 101 Carbon Dioxide 29 Anion Gap 9 L BUN 17 Creatinine 1.3 H Est GFR ( Amer) 48 Est GFR (Non-Af Amer) 40 POC Glucose (mg/dL) 261 H Random Glucose 254 H Calcium 8.5 Total Bilirubin 0.3 AST 37 H D ALT 22 Alkaline Phosphatase 88 NT-Pro-B Natriuret Pep 1190 H Total Protein 5.8 L Albumin 2.7 L Globulin 3.2 Albumin/Globulin Ratio 0.8 L 01/23/17 11:55 WBC RBC Hgb Hct MCV MCH MCHC RDW Plt Count Sodium Potassium Chloride Carbon Dioxide Anion Gap BUN Creatinine Est GFR ( Amer) Est GFR (Non-Af Amer) POC Glucose (mg/dL) 188 H Random Glucose Calcium Total Bilirubin AST ALT Alkaline Phosphatase NT-Pro-B Natriuret Pep Total Protein Albumin Globulin Albumin/Globulin Ratio reviewed J.P. - EKG Data EKG comments: reviewed J.P. - Impressions Impression: Echo= Reviewed J.P. - Imaging and Cardiology Chest x-ray Status: Report reviewed by me (Cheryl) Assessment & Plan (1) COPD exacerbation Status: Acute Priority: High (2) CHF (congestive heart failure) Status: Acute Priority: High (3) Diabetes mellitus with hyperglycemia Status: Chronic Priority: High (4) Hypercholesterolemia Status: Chronic Priority: Medium (5) Hypertension Status: Chronic Priority: Medium (6) Hypothyroidism Status: Chronic Priority: Medium (7) Anxiety Status: Chronic Priority: Medium (8) Chronic low back pain Status: Chronic Priority: Medium (9) Hx of CABG Status: Acute - Assessment and Plan (Free Text) Plan: Continue Duoneb, Phenergan DM, Lasix, Zestril, Lovenox Synthroid and rest of Tx.. Wound care consult. - Date & Time Date: 01/23/17 Time: 12:30
[2017-01-24] MEDS: Budesonide 0.5 mg/2 ml Inhal Susp UD IH SCH (08:10)
[2017-01-24] MEDS: Insulin Lispro Mix 75/25 100 units/ml (HumaLog) 10ml SC SCH (08:42)
[2017-01-24] MEDS: Artificial Tears Opht Soln OU SCH ×3 (08:43→16:22)
[2017-01-24] MEDS: Patient's Own Med (Ranolazine [Ranexa] 1,000 MG) PO SCH ×2 (08:44→16:24)
[2017-01-24] MEDS: Levothyroxine 100 MCG TAB PO SCH (08:46)
[2017-01-24] MEDS: Bisacodyl 5mg EC Tab PO SCH (08:46)
[2017-01-24] MEDS: guaiFENesin 600 mg ER Tab PO SCH ×2 (12:14→21:35)
[2017-01-24] MEDS: Promethazine DM 6.25 mg-15 mg/5 ml Syrup PO PRN ×2 (16:27→22:30)
--- NOTE | 2017-01-24 16:45 | CP.PCM.PN ---
Subjective - Date & Time of Evaluation Date of Evaluation: 01/24/17 - Subjective Subjective: F/U COPD Exacerbation/CHF SOB improved, occasional dry cough, chest congestion, pain in L knee Objective - Vital Signs/Intake and Output Vital Signs (last 24 hours): Temp Pulse Resp BP Pulse Ox 97.7 F 71 20 137/63 95 01/24/17 16:00 01/24/17 16:00 01/24/17 16:00 01/24/17 16:00 01/24/17 16:00 - Medications Medications: Current Medications Acetaminophen (Tylenol 325mg Tab) 650 mg PO Q4H PRN PRN Reason: Temp >100 Last Admin: 01/23/17 02:38 Dose: 650 mg Acetaminophen (Tylenol 325mg Tab) 650 mg PO Q4 PRN PRN Reason: Pain, moderate (4-7) Last Admin: 01/23/17 21:38 Dose: 650 mg Acetaminophen/Codeine Phosphate (Tylenol/Codeine 300 Mg/30 Mg) 1 tab PO Q4H PRN PRN Reason: Pain, severe (8-10) Albuterol/Ipratropium (Duoneb 3 Mg/0.5 Mg (3 Ml) Ud) 3 ml IH Q4H PRN PRN Reason: Shortness of Breath Last Admin: 01/23/17 08:12 Dose: 3 ml Alprazolam (Xanax) 0.25 mg PO DAILY PRN PRN Reason: Anxiety Stop: 01/29/17 22:13 Artificial Tears (Artificial Tears) 2 drop OU TID [facility] Last Admin: 01/24/17 16:22 Dose: 2 drop Aspirin (Ecotrin) 81 mg PO DAILY [facility] Last Admin: 01/24/17 08:46 Dose: 81 mg Bisacodyl (Dulcolax) 5 mg PO DAILY [facility] Last Admin: 01/24/17 08:46 Dose: 5 mg Budesonide (Pulmicort Respules) 0.5 mg IH BID [facility] Last Admin: 01/24/17 08:10 Dose: 0.5 mg Carvedilol (Coreg) 3.125 mg PO Q12 [facility] Last Admin: 01/24/17 08:44 Dose: 3.125 mg Docusate Sodium (Colace) 200 mg PO BID [facility] Last Admin: 01/24/17 16:22 Dose: 200 mg Furosemide (Lasix) 40 mg IVP DAILY [facility] Last Admin: 01/24/17 08:42 Dose: 40 mg Guaifenesin (Mucinex La) 600 mg PO Q12H [facility] Last Admin: 01/24/17 12:14 Dose: 600 mg Home Med (Ranolazine [Ranexa]) 1,000 mg PO BID [facility] Last Admin: 01/24/17 16:24 Dose: 1,000 mg Insulin Lispro Protam/Lispro Human (Humalog Mix 75/25) 25 units SC DAILY [facility] Last Admin: 01/24/17 08:42 Dose: 25 units Lactulose (Enulose) 20 gm PO DAILY PRN PRN Reason: Constipation Levothyroxine Sodium (Synthroid) 100 mcg PO DAILY [facility] Last Admin: 01/24/17 08:46 Dose: 100 mcg Meclizine HCl (Antivert) 25 mg PO Q6H PRN PRN Reason: Dizziness Last Admin: 01/24/17 08:45 Dose: 25 mg Mineral Oil (Fleet Mineral Oil Enema) 135 ml [place] Q72H PRN PRN Reason: Constipation Nitroglycerin (Nitrostat Sl Tab) 0.4 mg SL Q5MIN PRN PRN Reason: chest pain Nystatin (Nystop Topical Powder) 1 applic TOP TID [facility] Last Admin: 01/24/17 16:22 Dose: 1 applic Ondansetron HCl (Zofran Inj) 4 mg IVP Q4H PRN PRN Reason: Nausea/Vomiting Promethazine HCl/Dextromethorphan (Phenergan Dm Syrup) 5 ml PO Q6H PRN PRN Reason: Cough Last Admin: 01/24/17 16:27 Dose: 5 ml - Labs Labs: 01/23/17 05:00 01/23/17 05:00 PT 10.9 SECONDS (9.6-11.2) 01/22/17 00:16 INR 1.05 (0.92-1.08) 01/22/17 00:16 APTT 31.5 SECONDS (23.3-32.5) 01/22/17 00:16 - Constitutional Appears: No Acute Distress - Head Exam Head Exam: NORMAL INSPECTION - Eye Exam Eye Exam: PERRL (R eye, L eye legally blind) - ENT Exam Additional comments: Hard of hearing R ear. - Neck Exam Neck Exam: Normal Inspection - Respiratory Exam Respiratory Exam: Decreased Breath Sounds (at bases), Rhonchi (feaw) Additional comments: Crackles at bases - Cardiovascular Exam Cardiovascular Exam: REGULAR RHYTHM - GI/Abdominal Exam GI & Abdominal Exam: Soft, Normal Bowel Sounds - Extremities Exam Extremities Exam: Tenderness (mild L knee) Additional comments: L TMA - Back Exam Back Exam: tenderness (mild L-S) Additional comments: mild Sacral redness. - Neurological Exam Neurological Exam: Alert Additional comments: Forgetful at times, moves well all extremities against gravity, decreased sensation R foot. - Psychiatric Exam Psychiatric exam: Anxious - Skin Skin Exam: Warm Additional comments: Ecchymosis U/E Assessment and Plan (1) COPD exacerbation Status: Acute (2) CHF (congestive heart failure) Status: Acute (3) Diabetes mellitus with hyperglycemia Status: Chronic (4) Hypercholesterolemia Status: Chronic (5) Hypertension Status: Chronic (6) Hypothyroidism Status: Chronic (7) Anxiety Status: Chronic (8) Left knee pain Status: Acute (9) Hx of CABG Status: Acute - Assessment and Plan (Free Text) Plan: Continue Lasix and rest of tx, agree Pt has Echo in AM,f/u mental health consultant.
[2017-01-25] MEDS: Artificial Tears Opht Soln OU SCH ×3 (08:36→17:16)
[2017-01-25] MEDS: Bisacodyl 5mg EC Tab PO SCH (08:39)
[2017-01-25] MEDS: Levothyroxine 100 MCG TAB PO SCH (08:42)
[2017-01-25] MEDS: Patient's Own Med (Ranolazine [Ranexa] 1,000 MG) PO SCH ×2 (08:42→17:17)
[2017-01-25] MEDS: Insulin Lispro Mix 75/25 100 units/ml (HumaLog) 10ml SC SCH (08:53)
--- NOTE | 2017-01-25 10:16 | CARD ---
APPROVED REPORT EKG Measurement Heart [id number] <Conclusion> Normal sinus rhythm Normal ECG
[2017-01-25 10:19] LABS: HEMATOCRIT 30.5 % (34.0-47.0); MEAN CORPUSCULAR HEMOGLOBIN 31.6 pg (27.0-31.0); MEAN CORPUSCULAR HGB CONC 33.3 g/dL (33.0-37.0); RED CELL DISTRIBUTION WIDTH 13.6 % (11.5-14.5); WHITE BLOOD COUNT 11.3 K/uL (4.8-10.8)
[2017-01-25 10:20] LABS: MEAN CELL VOLUME 94.9 fl (81.0-99.0)
[2017-01-25 10:56] LABS: POTASSIUM 4.3 MMOL/L (3.6-5.0)
[2017-01-25 11:00] LABS: CALCIUM 9.1 mg/dL (8.4-10.2)
[2017-01-25] MEDS: Enoxaparin 30 mg Syringe SC SCH (11:21)
[2017-01-25] MEDS: guaiFENesin 600 mg ER Tab PO SCH ×3 (11:23→22:15)
[2017-01-25] MEDS: Budesonide 0.5 mg/2 ml Inhal Susp UD IH SCH ×2 (13:30→19:19)
--- NOTE | 2017-01-25 16:14 | CP.PCM.PN ---
Subjective - Date & Time of Evaluation Date of Evaluation: 01/25/17 Time of Evaluation: 10:40 - Subjective Subjective: F/U COPD Exacerbation. Pt doing well, no cough, no SOB, no chest congestion. Objective - Vital Signs/Intake and Output Vital Signs (last 24 hours): Temp Pulse Resp BP Pulse Ox 97.6 F 74 20 157/64 H 98 01/25/17 15:45 01/25/17 15:45 01/25/17 15:45 01/25/17 15:45 01/25/17 15:45 - Medications Medications: Current Medications Acetaminophen (Tylenol 325mg Tab) 650 mg PO Q4H PRN PRN Reason: Temp >100 Last Admin: 01/23/17 02:38 Dose: 650 mg Acetaminophen (Tylenol 325mg Tab) 650 mg PO Q4 PRN PRN Reason: Pain, moderate (4-7) Last Admin: 01/24/17 21:42 Dose: 650 mg Acetaminophen/Codeine Phosphate (Tylenol/Codeine 300 Mg/30 Mg) 1 tab PO Q4H PRN PRN Reason: Pain, severe (8-10) Albuterol/Ipratropium (Duoneb 3 Mg/0.5 Mg (3 Ml) Ud) 3 ml IH Q4H PRN PRN Reason: Shortness of Breath Last Admin: 01/23/17 08:12 Dose: 3 ml Alprazolam (Xanax) 0.25 mg PO DAILY PRN PRN Reason: Anxiety Stop: 01/29/17 22:13 Artificial Tears (Artificial Tears) 2 drop OU TID [facility] Last Admin: 01/25/17 13:39 Dose: 2 drop Aspirin (Ecotrin) 81 mg PO DAILY [facility] Last Admin: 01/25/17 08:40 Dose: 81 mg Bisacodyl (Dulcolax) 5 mg PO DAILY [facility] Last Admin: 01/25/17 08:39 Dose: 5 mg Budesonide (Pulmicort Respules) 0.5 mg IH BID [facility] Last Admin: 01/25/17 13:30 Dose: 0.5 mg Carvedilol (Coreg) 3.125 mg PO Q12 [facility] Last Admin: 01/25/17 08:38 Dose: 3.125 mg Docusate Sodium (Colace) 200 mg PO BID [facility] Last Admin: 01/25/17 08:37 Dose: 200 mg Enoxaparin Sodium (Lovenox) 30 mg SC DAILY [facility] PRN Reason: Protocol Last Admin: 01/25/17 11:21 Dose: 30 mg Furosemide (Lasix) 40 mg IVP DAILY [facility] Last Admin: 01/25/17 08:40 Dose: 40 mg Guaifenesin (Mucinex La) 600 mg PO Q12H [facility] Last Admin: 01/25/17 11:23 Dose: 600 mg Home Med (Ranolazine [Ranexa]) 1,000 mg PO BID [facility] Last Admin: 01/25/17 08:42 Dose: 1,000 mg Insulin Lispro Protam/Lispro Human (Humalog Mix 75/25) 25 units SC DAILY [facility] Last Admin: 01/25/17 08:53 Dose: 25 units Lactulose (Enulose) 20 gm PO DAILY PRN PRN Reason: Constipation Levothyroxine Sodium (Synthroid) 100 mcg PO DAILY [facility] Last Admin: 01/25/17 08:42 Dose: 100 mcg Lisinopril (Zestril) 2.5 mg PO DAILY [facility] Last Admin: 01/25/17 11:56 Dose: Not Given Meclizine HCl (Antivert) 25 mg PO Q6H PRN PRN Reason: Dizziness Last Admin: 01/24/17 08:45 Dose: 25 mg Mineral Oil (Fleet Mineral Oil Enema) 135 ml [place] Q72H PRN PRN Reason: Constipation Nitroglycerin (Nitrostat Sl Tab) 0.4 mg SL Q5MIN PRN PRN Reason: chest pain Nystatin (Nystop Topical Powder) 1 applic TOP TID [facility] Last Admin: 01/25/17 13:39 Dose: 1 applic Ondansetron HCl (Zofran Inj) 4 mg IVP Q4H PRN PRN Reason: Nausea/Vomiting Promethazine HCl/Dextromethorphan (Phenergan Dm Syrup) 5 ml PO Q6H PRN PRN Reason: Cough Last Admin: 01/24/17 22:30 Dose: 5 ml - Labs Labs: 01/25/17 10:00 01/25/17 10:00 PT 10.9 SECONDS (9.6-11.2) 01/22/17 00:16 INR 1.05 (0.92-1.08) 01/22/17 00:16 APTT 31.5 SECONDS (23.3-32.5) 01/22/17 00:16 - Constitutional Appears: No Acute Distress - Head Exam Head Exam: NORMAL INSPECTION - Eye Exam Eye Exam: PERRL (R eye, L eye legally blind.) - ENT Exam Additional comments: Hard of hearing R ear. - Neck Exam Neck Exam: Normal Inspection - Respiratory Exam Respiratory Exam: Decreased Breath Sounds (at bases), Rhonchi (few scattered) - Cardiovascular Exam Cardiovascular Exam: REGULAR RHYTHM - GI/Abdominal Exam GI & Abdominal Exam: Soft, Normal Bowel Sounds - Extremities Exam Extremities Exam: Tenderness (L knee) Additional comments: Legs trace edema. L TMA - Back Exam Back Exam: tenderness (mild L-s) - Neurological Exam Neurological Exam: Alert Additional comments: At times forgetful, moves well all extremities against gravity, decreased sensation R foot. - Psychiatric Exam Psychiatric exam: Anxious - Skin Skin Exam: Warm (Ecchymosis U/E) Assessment and Plan (1) COPD exacerbation Status: Acute (2) CHF (congestive heart failure) Status: Acute (3) Diabetes mellitus with hyperglycemia Status: Chronic (4) Hypercholesterolemia Status: Chronic (5) Hypertension Status: Chronic (6) Hypothyroidism Status: Chronic (7) Anxiety Status: Chronic (8) Chronic low back pain Status: Chronic (9) Hx of CABG Status: Acute - Assessment and Plan (Free Text) Plan: PT improved and stable to be discharged, see instruction medication sheet. Addendum: Pt unable to leave hospital due to transportation was not available earlier today.
[2017-01-25] MEDS: Albuterol-Ipratrop 3 mg / 0.5 (3 ml) UD IH PRN (19:19)
[2017-01-25 23:44] VITALS: RESP 18
[2017-01-26] MEDS: Budesonide 0.5 mg/2 ml Inhal Susp UD IH SCH (08:02)
[2017-01-26 08:09] VITALS: TEMP 97.7; O2SAT 96
[2017-01-26] MEDS: Artificial Tears Opht Soln OU SCH (09:10)
[2017-01-26] MEDS: Levothyroxine 100 MCG TAB PO SCH (09:10)
[2017-01-26] MEDS: Patient's Own Med (Ranolazine [Ranexa] 1,000 MG) PO SCH (09:11)
[2017-01-26] MEDS: Enoxaparin 30 mg Syringe SC SCH (09:12)
[2017-01-26] MEDS: Insulin Lispro Mix 75/25 100 units/ml (HumaLog) 10ml SC SCH (09:13)
[2017-01-26] MEDS: Bisacodyl 5mg EC Tab PO SCH (09:14)
[2017-01-26] MEDS: guaiFENesin 600 mg ER Tab PO SCH (09:16)
[2017-01-26 10:25] VITALS: BP 155/69; PULSE 92
--- NOTE | 2017-01-26 17:23 | CP.PCM.PN ---
Subjective - Date & Time of Evaluation Date of Evaluation: 01/26/17 - Subjective Subjective: F/U COPD Exacerbation. Pt with no cough, c/o of chest congestion. Objective - Vital Signs/Intake and Output Vital Signs (last 24 hours): Temp Pulse Resp BP Pulse Ox 97.7 F 92 H 18 155/69 H 96 01/26/17 08:09 01/26/17 10:24 01/26/17 08:09 01/26/17 10:24 01/26/17 08:09 - Labs Labs: 01/25/17 10:00 01/25/17 10:00 PT 10.9 SECONDS (9.6-11.2) 01/22/17 00:16 INR 1.05 (0.92-1.08) 01/22/17 00:16 APTT 31.5 SECONDS (23.3-32.5) 01/22/17 00:16 - Respiratory Exam Respiratory Exam: Rhonchi (b/l) Assessment and Plan (1) COPD exacerbation Status: Acute (2) CHF (congestive heart failure) Status: Acute (3) Diabetes mellitus with hyperglycemia Status: Chronic (4) Hypercholesterolemia Status: Chronic (5) Hypertension Status: Chronic (6) Hypothyroidism Status: Chronic (7) Anxiety Status: Chronic (8) Chronic low back pain Status: Chronic (9) Hx of CABG Status: Acute - Assessment and Plan (Free Text) Plan: Pt improved and stable to be discharged, see instruction medication sheet.
[2017-01-26] MEDS ORDERED: Budesonide 0.5 mg/2 ml Inhal Susp UD IH SCH (20:00)
== END 2017-01-26 12:00 | disposition home health service (06) | DRG 88 ==
LOC: H.ER 16:40 → H.ERHOLD 17:02 → H.TEL 18:22
PROVIDERS: ADMIT Internal Medicine Pulmonary Disease; ATTEND Internal Medicine Pulmonary Disease
PROC: 3E0F73Z Introduction of Anti-inflammatory into Respiratory Tract, Via Natural or Artificial Opening (ICD-10-PCS; principal; 2017-01-22)
DX: J44.0 Chronic obstructive pulmonary disease with (acute) lower respiratory infection (principal); I13.0 Hypertensive heart and chronic kidney disease with heart failure and stage 1 through stage 4 chronic kidney disease, or unspecified chronic kidney disease; I50.9 Heart failure, unspecified; N18.9 Chronic kidney disease, unspecified; E11.22 Type 2 diabetes mellitus with diabetic chronic kidney disease; E11.65 Type 2 diabetes mellitus with hyperglycemia; J44.1 Chronic obstructive pulmonary disease with (acute) exacerbation; E03.9 Hypothyroidism, unspecified; E78.00 Pure hypercholesterolemia, unspecified; E78.5 Hyperlipidemia, unspecified; J45.909 Unspecified asthma, uncomplicated; G89.29 Other chronic pain; M54.5 Low back pain; I25.10 Atherosclerotic heart disease of native coronary artery without angina pectoris; Z95.1 Presence of aortocoronary bypass graft; Z95.5 Presence of coronary angioplasty implant and graft; K29.70 Gastritis, unspecified, without bleeding; Z88.6 Allergy status to analgesic agent; F41.9 Anxiety disorder, unspecified; Z88.0 Allergy status to penicillin; Z91.018 Allergy to other foods; Z79.82 Long term (current) use of aspirin; Z87.440 Personal history of urinary (tract) infections

== ENCOUNTER 2017-02-01 13:48 | Observation (INO) | payer MEDICAID ==
[2017-02-01 13:48] VITALS: BMI 29.7
[2017-02-01] MEDS ORDERED: Sodium Chloride 0.9% 1,000 ML IV STA (14:11)
--- NOTE | 2017-02-01 14:14 | ED PDOC ---
HPI: General Adult Time Seen by Provider: 02/01/17 13:57 Chief Complaint (Nursing): Shortness Of Breath History Per: Patient (Weakness this AM. Checked BP at home found to be low. Also checked glucose at home and was elevated. administered 25 units 70/ 30 Insulin at 9AM. Denies chest pain or SOB.) Onset/Duration Of Symptoms: Days (1) Current Symptoms Are (Timing): Still Present Severity: Mild Pain Scale Rating Of: 0 Past Medical History Vital Signs: Last Vital Signs Temp 98.3 F 02/01/17 14:34 Pulse 73 02/01/17 14:34 Resp 9 L 02/01/17 14:34 BP 134/57 L 02/01/17 14:34 Pulse Ox 100 02/01/17 14:34 - Medical History PMH: Anemia, Anxiety, Arthritis, Asthma, Back Problems, CAD, CHF, COPD, Depression, Diabetes, Gastritis, HTN, Hypercholesterolemia, Hyperlipidemia, Hypothyroidism, Peripheral Edema, Pneumonia, Chronic Kidney Disease Denies: HIV, Rheumatoid Arthritis - Surgical History Surgical History: CABG (x4), Cholecystectomy, Coronary Stent Denies: Pacemaker - Family History Family History: States: Unknown Family Hx - Home Medications Home Medications: Ambulatory Orders Medication Instructions Recorded ALPRAZolam [Xanax] 0.25 mg PO DAILY PRN 01/12/17 Acetaminophen [Tylenol 325mg tab] 650 mg PO Q4H PRN 01/12/17 Acetaminophen [Tylenol 325mg tab] 650 mg PO Q4H PRN 01/12/17 Albuterol/Ipratropium [Duoneb 3 3 ml IH Q4H PRN 01/12/17 mg/0.5 mg (3 ml) UD] Aspirin [Ecotrin] 81 mg PO DAILY 01/12/17 Bisacodyl [Women's Laxative] 5 mg PO DAILY 01/12/17 Carvedilol [Coreg] 3.125 mg PO DAILY 01/12/17 Docusate [Colace] 200 mg PO BID 01/12/17 Insulin Human (NPH)/Regular 25 unit SC DAILY 01/12/17 [Novolin 70/30 (70/30 units/ml) 10 ml] Lactulose [Generlac] 30 ml PO DAILY PRN 01/12/17 Levothyroxine [Synthroid] 100 mcg PO DAILY 01/12/17 Meclizine [Meclizine*] 25 mg PO Q6H PRN 01/12/17 Mineral Oil [Fleet Mineral Oil 135 ml [place] Q72H PRN 01/12/17 Enema] Nitroglycerin [Nitrostat] 0.4 mg SL Q5MIN PRN 01/12/17 Promethazine DM [Phenergan DM 5 ml PO Q6H PRN 01/12/17 Syrup] Ranolazine [Ranexa] 1,000 mg PO BID 01/12/17 Acetaminophen with Codeine 1 tab PO Q4H PRN 01/22/17 [Tylenol with Codeine #3 Tablet] Albuterol/Ipratropium [Duoneb 3 3 ml IH Q6H 01/22/17 mg/0.5 mg (3 ml) UD] Budesonide [Pulmicort Respules] 2 ml IH BID 01/22/17 Nystatin [Nystop Topical Powder] 1 appl TOP TID 01/22/17 Ondansetron [Zofran Inj] 4 mg IV Q4H PRN 01/22/17 Polyethylene Glycol/Polyvinyl 2 drop OU TID 01/22/17 [Artificial Tears] guaiFENesin [Mucinex LA] 600 mg PO Q12H 01/22/17 Furosemide [Lasix] 40 mg PO DAILY [facility]/25/17 - Allergies Allergies/Adverse Reactions: Allergies Allergy/AdvReac Type Severity Reaction Status Date / Time kiwi Allergy Mild RASH Verified 01/12/17 16:51 morphine Allergy Mild RASH Verified 01/12/17 16:51 Penicillins Allergy Mild RASH Verified 01/12/17 16:51 pineapple Allergy Mild RASH Verified 01/12/17 16:51 watermelon Allergy Mild RASH Verified 01/12/17 16:51 Review of Systems ROS Statement: Except As Marked, All Systems Reviewed And Found Negative Constitutional: Positive for: Weakness Physical Exam - Reviewed Nursing Documentation Reviewed: Yes Vital Signs Reviewed: Yes - Physical Exam Appears: Positive for: Non-toxic, No Acute Distress Head Exam: Positive for: ATRAUMATIC, NORMAL INSPECTION, NORMOCEPHALIC Skin: Positive for: Normal Color, Warm, DRY Eye Exam: Positive for: EOMI, Normal appearance, PERRL ENT: Positive for: Normal ENT Inspection Neck: Positive for: Normal, Painless ROM Cardiovascular/Chest: Positive for: Regular Rate, Rhythm Respiratory: Positive for: Rhonchi. Negative for: Accessory Muscle Use, Wheezing, Respiratory Distress Gastrointestinal/Abdominal: Positive for: Normal Exam, Bowel Sounds, Soft Back: Positive for: Normal Inspection Extremity: Negative for: Calf Tenderness, Swelling Neurologic/Psych: Positive for: Alert, Oriented - Laboratory Results Result Diagrams: 02/01/17 14:30 02/01/17 14:30 - ECG O2 Sat by Pulse Oximetry: 96 Disposition - Clinical Impression Clinical Impression: Hypotension, Diabetes mellitus with hyperglycemia - Patient ED Disposition Is Patient to be Admitted: Yes - Disposition Disposition Time: 15:52 Condition: FAIR - Pt Status Changed To: Hospital Disposition Of: Observation - POA Present On Arrival: None
[2017-02-01 14:36] LABS: BASO # 0.1 K/uL (0.0-0.2); BASO % 0.9 % (0.0-2.0); EOS # 0.4 K/uL (0.0-0.7); EOS % 5.7 % (0.0-4.0); HEMATOCRIT 30.6 % (34.0-47.0); LYMPH # 1.9 K/uL (1.0-4.3); MEAN CELL VOLUME 95.1 fl (81.0-99.0); MEAN CORPUSCULAR HGB CONC 33.6 g/dL (33.0-37.0); MEAN PLATELET VOLUME 7.7 fl (7.2-11.7); MONO # 0.8 K/uL (0.0-0.8); MONO % 12.1 % (0.0-10.0); NEUT # 3.5 K/uL (1.8-7.0); NEUT % 52.3 % (50.0-75.0); NRBC % 0.1 % (0.0-0.0); RED CELL DISTRIBUTION WIDTH 13.7 % (11.5-14.5); WHITE BLOOD COUNT 6.7 K/uL (4.8-10.8)
[2017-02-01 14:44] LABS: BILIRUBIN,TOTAL 0.2 mg/dl (0.2-1.3); CALCIUM 8.8 mg/dL (8.4-10.2); POTASSIUM 4.6 MMOL/L (3.6-5.0); TOTAL PROTEIN 6.7 G/DL (6.3-8.2)
--- NOTE | 2017-02-01 15:18 | RAD ---
HISTORY: cough COMPARISON: 01/22/2017 FINDINGS: LUNGS: Poor inspiration with low lung volumes, mild crowded bronchovascular markings and mild bibasilar atelectasis. PLEURA: No significant pleural effusion identified, no pneumothorax apparent. CARDIOVASCULAR: Sternotomy wires and CABG clips. There are coronary artery calcifications are present Heart size appears mildly enlarged. Calcification of the aortic knob. OSSEOUS STRUCTURES: Mild multilevel degenerative spondylosis of the thoracic spine VISUALIZED UPPER ABDOMEN: Normal. OTHER FINDINGS: None. IMPRESSION: Poor inspiration with low lung volumes, mild crowded bronchovascular markings and mild bibasilar atelectasis.
[2017-02-01] MEDS ORDERED: guaiFENesin DM 100 mg-10 mg/5 ml UD PO PRN (23:02)
[2017-02-01] MEDS ORDERED: Albuterol-Ipratrop 3 mg / 0.5 (3 ml) UD IH PRN (23:02)
[2017-02-02 00:23] VITALS: RESP 20
[2017-02-02] MEDS ORDERED: Levothyroxine 100 MCG TAB PO SCH (06:30)
[2017-02-02 06:48] LABS: HEMATOCRIT 32.6 % (34.0-47.0); MEAN CELL VOLUME 96.5 fl (81.0-99.0); MEAN CORPUSCULAR HEMOGLOBIN 31.2 pg (27.0-31.0); MEAN CORPUSCULAR HGB CONC 32.4 g/dL (33.0-37.0); RED CELL DISTRIBUTION WIDTH 13.8 % (11.5-14.5); WHITE BLOOD COUNT 6.9 K/uL (4.8-10.8)
[2017-02-02 06:56] LABS: BILIRUBIN,TOTAL 0.2 mg/dl (0.2-1.3); CALCIUM 8.9 mg/dL (8.4-10.2); POTASSIUM 5.2 MMOL/L (3.6-5.0); TOTAL PROTEIN 6.6 G/DL (6.3-8.2)
[2017-02-02] MEDS ORDERED: [UNRECOGNIZED DRUG - MIXTURE] SC SCH (09:00)
[2017-02-02] MEDS ORDERED: Patient's Own Med (Ranolazine [Ranexa] 1,000 MG) PO SCH (09:00)
[2017-02-02] MEDS ORDERED: Insulin Lispro Mix 75/25 100 units/ml (HumaLog) 10ml SC SCH (09:00)
--- NOTE | 2017-02-02 09:33 | CARD ---
APPROVED REPORT EKG Measurement Heart [id number] [place] [id number] <Conclusion> Normal sinus rhythm Normal ECG
--- NOTE | 2017-02-02 14:35 | CP.PCM.HP ---
History of Present Illness - History of Present Illness History of Present Illness: cC: SOB 76 y/o F, found with respiratory distress by [employer] 1 hr [employer], EMS was called and on field Pt received O2 Treatment with some improvement. Pt was brought to [facility], [place] to be evaluated due to the SOB exacerbation, respiratory rate in 9, associated to intermittent cough non productive, non bloody. Worsening symptoms: Wheezing, weakness. Hx of been discharged in improved and stable condition from [facility] on 01/26/17 after been Tx for COPD Exacerbation. Pt denied: Fever, chills, n/v/d, abdominal pain, CP, palpitation, dizziness, syncope, numbness, sick contact, recent travel. PMHx: COPD, Asthma, DMII with Hyperglycemia, CHF, CAD,HTN, Hx. of CABG, Coronay Stent, L TMA, Hypercholesterolemia, Hypothyroidism, CKD, Gastritis, Chronic back pain, Multiple admissions for UTI, Anxiety. CXR: Normal. EKG: Normal sinus rhythm. BS: 232 BP: 187/71. Present on Admission - Present on Admission Any Indicators Present on Admission: Yes History of Uncontrolled Diabetes: Yes Review of Systems - Constitutional Constitutional: Weakness - EENT Eyes: Loss of Vision (L eye) Ears: Decreased Hearing (R ear) Nose/Mouth/Throat: Other (negative) - Cardiovascular Cardiovascular: Other (negative) - Respiratory Respiratory: Cough, Dyspnea - Gastrointestinal Gastrointestinal: Other (negative) - Genitourinary Genitourinary: Urinary Incontinence - Musculoskeletal Musculoskeletal: Arthralgias, Back Pain, Muscle Weakness - Integumentary Integumentary: Other (ecchymosis U/E) - Neurological Neurological: Other (negative) - Psychiatric Psychiatric: Anxiety - Endocrine Endocrine: Other (negative) - Hematologic/Lymphatic Hematologic: Other (anemia) Past Patient History - Infectious Disease Hx of Infectious Diseases: None - Past Medical History & Family History Past Medical History?: Yes Pertinent Family History: Unknown - Past Social History Smoking Status: Never Smoked Alcohol: None Drugs: Denies Home Situation {Lives}: With Family - CARDIAC Hx Cardiac Disorders: Yes (CHF, Hypercholesterolemia) Hx Congestive Heart Failure: Yes Hx Hypertension: Yes - PULMONARY Hx Respiratory Disorders: Yes (COPD, Hx Pneumonia) Hx Asthma: Yes - NEUROLOGICAL Hx Neurological Disorder: Yes (Vertigo) - HEENT Hx HEENT Problems: Yes Hx Blind: Yes (left eye) - RENAL Hx Chronic Kidney Disease: Yes - ENDOCRINE/METABOLIC Hx Endocrine Disorders: Yes (Type 2 Diabetes) - HEMATOLOGICAL/ONCOLOGICAL Hx AIDS: No Hx Anemia: Yes Hx Human Immunodeficiency Virus (HIV): No - INTEGUMENTARY Hx Dermatological Problems: No - MUSCULOSKELETAL/RHEUMATOLOGICAL Hx Arthritis: Yes Hx Falls: Yes - GASTROINTESTINAL Hx Gastritis: Yes - GENITOURINARY/GYNECOLOGICAL Hx Genitourinary Disorders: Yes (Chronic UTI, Urinary retention) - PSYCHIATRIC Hx Anxiety: Yes Hx Depression: Yes Hx Substance Use: No - SURGICAL HISTORY Hx Cholecystectomy: Yes Hx Coronary Artery Bypass Graft: Yes (x4) Hx Coronary Stent: Yes - ANESTHESIA Hx Anesthesia: Yes Hx Anesthesia Reactions: No Hx Malignant Hyperthermia: No Meds Home Medications: Home Medication List Medication Instructions Recorded Confirmed Type Furosemide [Lasix] 20 mg PO DAILY #0 02/02/17 02/01/17 Rx Allergies/Adverse Reactions: Allergies Allergy/AdvReac Type Severity Reaction Status Date / Time kiwi Allergy Mild RASH Verified 01/12/17 16:51 morphine Allergy Mild RASH Verified 01/12/17 16:51 Penicillins Allergy Mild RASH Verified 01/12/17 16:51 pineapple Allergy Mild RASH Verified 01/12/17 16:51 watermelon Allergy Mild RASH Verified 01/12/17 16:51 Physical Exam - Constitutional Appears: No Acute Distress - Head Exam Head Exam: NORMAL INSPECTION - Eye Exam Eye Exam: PERRL (R eye, L eye blind) - ENT Exam Additional comments: Hard of hearing R ear - Neck Exam Neck exam: Positive for: Normal Inspection - Respiratory Exam Respiratory Exam: Decreased Breath Sounds, Wheezes (few scattered) - Cardiovascular Exam Cardiovascular Exam: REGULAR RHYTHM - GI/Abdominal Exam GI & Abdominal Exam: Normal Bowel Sounds, Soft - Extremities Exam Extremities exam: Positive for: tenderness (mild R-L knee) - Back Exam Back exam: NORMAL INSPECTION - Neurological Exam Neurological exam: Alert, Oriented x3 Additional comments: At times forgetful, moves all extremities against gravity, decreased sensation R foot - Psychiatric Exam Psychiatric exam: Anxious - Skin Skin Exam: Warm (Ecchymosis U/E) Results - Vital Signs Recent Vital Signs: Last Vital Signs Temp 97.5 F L 02/02/17 13:10 Pulse 74 02/02/17 13:10 Resp 20 02/02/17 13:10 BP 165/69 H 02/02/17 13:10 Pulse Ox 96 02/02/17 13:10 reviewed J.P. - Labs Result Diagrams: 02/02/17 05:40 02/02/17 05:40 Labs: Laboratory Results - last 24 hr 02/01/17 02/01/17 02/02/17 16:42 21:11 05:11 WBC RBC Hgb Hct MCV MCH MCHC RDW Plt Count Sodium Potassium Chloride Carbon Dioxide Anion Gap BUN Creatinine Est GFR ( Amer) Est GFR (Non-Af Amer) POC Glucose (mg/dL) 232 H 251 H 211 H Random Glucose Calcium Total Bilirubin AST ALT Alkaline Phosphatase Total Protein Albumin Globulin Albumin/Globulin Ratio 02/02/17 02/02/17 02/02/17 05:40 05:40 11:31 WBC 6.9 RBC 3.38 L Hgb 10.6 L Hct 32.6 L MCV 96.5 MCH 31.2 H MCHC 32.4 L RDW 13.8 Plt Count 248 Sodium 139 Potassium 5.2 H Chloride 106 Carbon Dioxide 28 Anion Gap 10 BUN 18 H Creatinine 1.1 Est GFR ( Amer) 58 Est GFR (Non-Af Amer) 48 POC Glucose (mg/dL) 194 H Random Glucose 216 H Calcium 8.9 Total Bilirubin 0.2 AST 22 ALT 30 Alkaline Phosphatase 119 Total Protein 6.6 Albumin 3.4 L Globulin 3.3 Albumin/Globulin Ratio 1.0 reviewed J.P. - EKG Data EKG comments: reviewed J.P. - Imaging and Cardiology Chest x-ray Status: Report reviewed by me ([email or web address]) Assessment & Plan (1) COPD (chronic obstructive pulmonary disease) Status: Acute Priority: High (2) CHF (congestive heart failure) Status: Chronic Priority: High (3) Diabetes mellitus with hyperglycemia Status: Acute Priority: High - Assessment and Plan (Free Text) Plan: Continue Duoneb, Robitussin DM, Norvasc, Coreg, Lasix, Humalog Mix and rest of Tx. - Date & Time Date: 02/02/17 Time: 11:35
[2017-02-02 16:18] VITALS: BP 133/72; PULSE 67; TEMP 97.6; O2SAT 98
== END 2017-02-02 15:30 | disposition home or self-care (01) ==
LOC: H.ER 13:48 → H.ERHOLD 15:50 → H.TEL 17:51
PROVIDERS: ADMIT Internal Medicine Pulmonary Disease; ATTEND Internal Medicine Pulmonary Disease
DX: J44.9 Chronic obstructive pulmonary disease, unspecified (principal); E03.9 Hypothyroidism, unspecified; E11.22 Type 2 diabetes mellitus with diabetic chronic kidney disease; E78.00 Pure hypercholesterolemia, unspecified; I13.0 Hypertensive heart and chronic kidney disease with heart failure and stage 1 through stage 4 chronic kidney disease, or unspecified chronic kidney disease; I25.10 Atherosclerotic heart disease of native coronary artery without angina pectoris; I50.9 Heart failure, unspecified; N18.9 Chronic kidney disease, unspecified; E11.65 Type 2 diabetes mellitus with hyperglycemia; Z95.1 Presence of aortocoronary bypass graft; Z95.5 Presence of coronary angioplasty implant and graft; G89.29 Other chronic pain; I95.9 Hypotension, unspecified; K29.70 Gastritis, unspecified, without bleeding; E78.5 Hyperlipidemia, unspecified; J45.909 Unspecified asthma, uncomplicated; F41.9 Anxiety disorder, unspecified; Z88.5 Allergy status to narcotic agent; Z88.0 Allergy status to penicillin; Z91.018 Allergy to other foods; D64.9 Anemia, unspecified; F32.9 Major depressive disorder, single episode, unspecified

== ENCOUNTER 2017-03-17 10:24 | Day surgery (SDC) | payer MEDICAID ==
[2017-03-17 11:18] VITALS: RESP 18
[2017-03-17] MEDS ORDERED: Lidocaine 1% Inj (20ml) ONE (11:32)
[2017-03-17] MEDS ORDERED: MethylPREDNISolone Depo 40 mg/ml Inj ONE (11:32)
[2017-03-17] MEDS ORDERED: Bupivacaine HCl 0.25% PF (10 ml) Inj ONE (11:32)
[2017-03-17] MEDS ORDERED: Midazolam 2 MG/2 ML VIAL ONE (11:33)
[2017-03-17] MEDS ORDERED: Iohexol 300 10 ML ONE (11:33)
[2017-03-17] MEDS ORDERED: Lidocaine 1% Inj (20ml) IJ ONE (11:46)
[2017-03-17] MEDS ORDERED: Iohexol 300 10 ML IJ ONE (11:47)
[2017-03-17] MEDS ORDERED: Bupivacaine HCl 0.25% PF (10 ml) Inj IJ ONE (11:50)
[2017-03-17] MEDS ORDERED: MethylPREDNISolone Depo 40 mg/ml Inj IM ONE (11:50)
[2017-03-17] MEDS ORDERED: Naloxone 0.4 mg/ml Inj (Adult) ONE (11:54)
[2017-03-17 11:57] VITALS: BMI 33.6
[2017-03-17] MEDS ORDERED: HYDROmorphone 0.5 mg/0.5 ml ISec IVP PRN (12:06)
[2017-03-17] MEDS ORDERED: Lactated Ringer's 1,000 ML IV SCH (12:06)
[2017-03-17] MEDS ORDERED: Lactated Ringer's 1,000 ML IV ONE (12:08)
--- NOTE | 2017-03-17 13:28 | RAD ---
PROCEDURE: HISTORY: For pain management/pleural epidural spine injection. Please note the physicians nodes performing the procedure COMPARISON: None TECHNIQUE: Total fluoroscopic time utilized during the procedure: 29.0 seconds 8.99 mGy - cumulative dose FINDINGS: Submitted images from the current procedure: 1 IMPRESSION: Less than 1 hour fluoroscopic time utilized during performance of the procedure
[2017-03-17 14:50] VITALS: BP 156/72; PULSE 74; TEMP 97.8; O2SAT 97
--- NOTE | 2017-03-17 16:30 | OP ---
PROCEDURE DATE: 03/17/2017 PREOPERATIVE DIAGNOSIS: Lumbar radiculopathy. POSTOPERATIVE DIAGNOSIS: Lumbar radiculopathy. PROCEDURE: Left L3-L4, L4-L5 transforaminal epidural steroid injection. ANESTHESIOLOGIST: Alessandro Avitia MD SURGEON: Chayito Whiteside MD ANESTHESIA TYPE: Monitored anesthesia care. COMPLICATIONS: None. SPECIMEN: None. PROCEDURE: After re-discussion of the procedure with the patient, including its risks, benefits, alt ernatives, outcome data, possibility of no effect, or increased pain, the patient consented to the pr ocedure. She denies any recent infections, bleeding tendencies, or being on anticoagulants. Decisio n was then made to proceed to the OR. This morning, patient did not receive her usual insulin subcut aneous dosage due to her being n.p.o. As a result, her sugar was at upper 200s this morning. The pa beena's daughter states that with appropriate coverage during the morning, then her sugar is usually in the mid-100s to mid-200s. She would like to proceed and states that she will check her mother's b lood sugar on a regular basis and treat any hyperglycemia accordingly. The patient was then transferred into the OR onto the fluoroscopy bed in a prone position with 2 pill ows underneath her abdomen. The back was prepped and draped in a usual sterile fashion and sterile t echnique used during the entire procedure. The L3 and L4 vertebral levels were first identified in a nterior-posterior view and opened again going towards the left for approximately 20 degrees was obtai maggie to maximize the visualization of the left L3 and L4 pedicles. The skin overlying the 6 o'clock p osition of both pedicles was then infiltrated with 1% lidocaine using a 25-gauge needle. Subsequentl y, a 22-gauge 3-1/2 inch spinal needle was then incrementally advanced under fluoroscopic guidance un til tip of the needle lay within the intervertebral foramen. This was confirmed on the anterior-post erior view and the lateral views. After satisfactory positioning of both needles, approximately 1 mL of Isovue contrast was injected showing appropriate epidural and nerve root spread without any signs of CSF or intravenous involvement. At this point, approximately 3 mL of 0.25% Marcaine and Depo-Med rol mixture was injected. The needle was then removed and the patient's back was cleaned and dried a nd Band-Aids were applied. The patient was then transferred to recovery area in good condition without any signs of [employer] toxicity or any neurological deficits. She will have a followup in the office in approximately 2-4 weeks. En-Vicente Whiteside MD cc: [id number] TT: 03/17/2017 16:29:18 dn
== END 2017-03-17 14:50 | disposition home or self-care (01) ==
LOC: H.OPSURG 10:24
PROVIDERS: ATTEND Anesthesiology
DX: M54.16 Radiculopathy, lumbar region (principal); I11.0 Hypertensive heart disease with heart failure; I50.9 Heart failure, unspecified; E11.9 Type 2 diabetes mellitus without complications; E03.9 Hypothyroidism, unspecified; E78.5 Hyperlipidemia, unspecified

== ENCOUNTER 2017-04-06 12:43 | Inpatient (IN) | payer MEDICAID ==
[2017-04-06 12:43] VITALS: BMI 33.6
--- NOTE | 2017-04-06 13:35 | ED PDOC ---
HPI: Chest Pain Time Seen by Provider: 04/06/17 12:57 Chief Complaint (Nursing): Medical Clearance Chief Complaint (Provider): Chest pain History Per: Patient History/Exam Limitations: no limitations Onset/Duration Of Symptoms: Hrs (Since last night) Current Symptoms Are (Timing): Still Present Additional Complaint(s): Jennifer Crouch is a 76-year-old female with a history of diabetes, CAD, hypertension, hypercholesterolemia, CHF, COPD and anxiety, who was brought to the emergency department via EMS with complaints of chest pain and fatigue, onset last night (04/06/17 at 3 am). Patient denies cough, fever, and shortness of breath. Patient took Nitroglycerin last night, with relief of symptoms, but experienced chest pain again this morning. PMD: Dr. Sridhar Oliver Past Medical History Reviewed: Historical Data, Nursing Documentation, Vital Signs Vital Signs: Last Vital Signs Temp 98.3 F 04/07/17 16:16 Pulse 66 04/07/17 16:16 Resp 20 04/07/17 16:16 BP 148/72 04/07/17 16:16 Pulse Ox 97 04/07/17 16:16 - Medical History PMH: Anemia, Anxiety, Arthritis, Asthma, Back Problems, Bronchitis, CAD, CHF, COPD, Depression, Diabetes, Gastritis, HTN, Hypercholesterolemia, Hyperlipidemia , Hypothyroidism, Peripheral Edema, Pneumonia Denies: HIV, Chronic Kidney Disease, Rheumatoid Arthritis - Surgical History Surgical History: CABG (x4), Cholecystectomy, Coronary Stent Denies: Pacemaker - Family History Family History: States: Unknown Family Hx - Social History Current smoker - smoking cessation education provided: No Alcohol: None Drugs: Denies - Home Medications Home Medications: Ambulatory Orders Medication Instructions Recorded ALPRAZolam [Xanax] 0.25 mg PO HS PRN 01/12/17 Albuterol/Ipratropium [Duoneb 3 3 ml IH Q6H PRN 01/12/17 mg/0.5 mg (3 ml) UD] Aspirin [Ecotrin] 81 mg PO DAILY 01/12/17 Carvedilol [Coreg] 3.125 mg PO Q12H 01/12/17 Insulin Human (NPH)/Regular 25 unit SC DAILY 01/12/17 [Novolin 70/30 (70/30 units/ml) 10 ml] Levothyroxine [Synthroid] 100 mcg PO DAILY 01/12/17 Nitroglycerin [Nitrostat] 0.4 mg SL Q5MIN PRN 01/12/17 Ranolazine [Ranexa] 1,000 mg PO BID 01/12/17 Acetaminophen with Codeine 1 tab PO Q8H PRN 01/22/17 [Tylenol with Codeine #3 Tablet] Atorvastatin [Lipitor] 40 mg PO HS 02/01/17 Loratadine [Claritin] 10 mg PO DAILY 02/01/17 Furosemide [Lasix] 20 mg PO Q48H 03/17/17 Meclizine [Meclizine*] 25 mg PO Q6H PRN 04/06/17 - Allergies Allergies/Adverse Reactions: Allergies Allergy/AdvReac Type Severity Reaction Status Date / Time kiwi Allergy Mild RASH Verified 01/12/17 16:51 morphine Allergy Mild RASH Verified 01/12/17 16:51 Penicillins Allergy Mild RASH Verified 01/12/17 16:51 pineapple Allergy Mild RASH Verified 01/12/17 16:51 watermelon Allergy Mild RASH Verified 01/12/17 16:51 Review of Systems ROS Statement: Except As Marked, All Systems Reviewed And Found Negative Constitutional: Positive for: Other (Fatigue). Negative for: Fever Cardiovascular: Positive for: Chest Pain Respiratory: Negative for: Cough, Shortness of Breath Physical Exam - Reviewed Nursing Documentation Reviewed: Yes Vital Signs Reviewed: Yes - Physical Exam Appears: Positive for: Non-toxic, No Acute Distress Head Exam: Positive for: ATRAUMATIC, NORMAL INSPECTION, NORMOCEPHALIC Skin: Positive for: Normal Color, Warm, Dry Eye Exam: Positive for: Normal appearance Neck: Positive for: Normal, Painless ROM, Supple Cardiovascular/Chest: Positive for: Regular Rate, Rhythm. Negative for: Edema, Murmur Respiratory: Positive for: Crackles (Bibasilar crackles) Gastrointestinal/Abdominal: Positive for: Normal Exam, Bowel Sounds, Soft. Negative for: Tenderness Back: Positive for: Normal Inspection. Negative for: Vertebral Tenderness Rectal: Positive for: Other (No gross blood) Extremity: Positive for: Normal ROM. Negative for: Pedal Edema Neurologic/Psych: Positive for: Alert, Oriented - Laboratory Results Result Diagrams: 04/07/17 05:30 04/07/17 05:30 - ECG Interpretation Of ECG: NSR @ 68, no ST-T changes. O2 Sat by Pulse Oximetry: 98 (NC AB) Pulse Ox Interpretation: Normal - Radiology X-Ray: Read By Radiologist X-Ray Interpretation: No Acute Disease Medical Decision Making Medical Decision Making: Time: 13:02 Initial Impression: Chest pain, Generalized weakness Initial Plan: * EKG * B-type natriuretic peptide * CMP * Troponin I * Urine dipstick * CBC * PTT * Prothrombin time * AccuCheck * Urinalysis * CXR * Reassessment Time: 13:10 Chest X-Ray: FINDINGS: LUNGS: Minimal linear scar/ atelectasis at left base. No focal consolidation. PLEURA: No significant pleural effusion identified, no pneumothorax apparent. CARDIOVASCULAR: Normal heart size. Sternotomy wires peer CABG. OSSEOUS STRUCTURES: No significant abnormalities. VISUALIZED UPPER ABDOMEN: Normal. OTHER FINDINGS: None. IMPRESSION: No active disease. Time: 15:53 * Aspirin 325 mg PO Time: 16:41 * Occult blood stool test stat * ABO/RH type stat * Crossmatch stat * Type and Screen stat * Consulted with patient's PMD Dr. Sridhar Oliver, who agrees with plan for admission and transfusion Scribe Attestation: Documented by Shayla Luna, acting as a scribe for Yissel Liu MD. Provider Scribe Attestation: All medical record entries made by the Scribe were at my direction and personally dictated by me. I have reviewed the chart and agree that the record accurately reflects my personal performance of the history, physical exam, medical decision making, and the department course for this patient. I have also personally directed, reviewed, and agree with the discharge instructions and disposition. Disposition - Clinical Impression Clinical Impression: Chest pain, Symptomatic anemia - Patient ED Disposition Is Patient to be Admitted: Yes - Disposition Disposition Time: 16:43 Condition: STABLE - Pt Status Changed To: Hospital Disposition Of: Inpatient - Admit Certification Admit to Inpatient:: After my assessment, the patient will require hospitalization for at least two midnights. This is because of the severity of symptoms shown, intensity of services needed, and/or the medical risk in this patient being treated as an outpatient. - POA Present On Arrival: None
[2017-04-06 14:19] LABS: PARTIAL THROMBOPLASTIN TIME 21.8 Seconds (25.6-37.1); PROTHROMBIN TIME 11.3 Seconds (9.8-13.1)
[2017-04-06 14:55] LABS: ALB/GLOB RATIO 0.9 (1.0-2.1); ALBUMIN 3.4 g/dL (3.5-5.0); CALCIUM 8.9 mg/dL (8.4-10.2)
--- NOTE | 2017-04-06 15:04 | CARD ---
APPROVED REPORT EKG Measurement Heart [id number] <Conclusion> Normal sinus rhythm Normal ECG
[2017-04-06 15:07] LABS: TROPONIN I 0.012 ng/mL (0.00-0.120)
[2017-04-06 16:16] LABS: BASO # 0.1 K/uL (0.0-0.2); BASO % 1.1 % (0.0-2.0); EOS # 0.4 K/uL (0.0-0.7); EOS % 5.7 % (0.0-4.0); HEMOGLOBIN 8.8 g/dL (12.0-16.0); LYMPH # 1.9 K/uL (1.0-4.3); LYMPH % 29.4 % (20.0-40.0); MEAN CELL VOLUME 92.8 fl (81.0-99.0); MEAN CORPUSCULAR HEMOGLOBIN 29.7 pg (27.0-31.0); MEAN PLATELET VOLUME 8.7 fl (7.2-11.7); MONO # 0.6 K/uL (0.0-0.8); MONO % 9.4 % (0.0-10.0); NEUT # 3.6 K/uL (1.8-7.0); NEUT % 54.4 % (50.0-75.0); NRBC % 0.1 % (0.0-0.0); RBC 2.97 Mil/uL (3.80-5.20); RED CELL DISTRIBUTION WIDTH 14.6 % (11.5-14.5); WHITE BLOOD COUNT 6.6 K/uL (4.8-10.8)
[2017-04-06] MEDS ORDERED: Aspirin 325 mg EC Tablets PO ONE (16:32)
[2017-04-06 18:50] LABS: SQUAMOUS EPITHIAL 4 /hpf (0-5); URINE BACTERIA RARE (<OCC); URINE BILIRUBIN NEGATIVE (NEGATIVE); URINE BLOOD NEGATIVE (NEGATIVE); URINE CLARITY SLIGHTY-CLOUDY (Clear); URINE COLOR YELLOW (YELLOW); URINE GLUCOSE (UA) >=500 mg/dL (Normal); URINE HYALINE CAST 0-2 /hpf (0-2); URINE LEUKOCYTE ESTERASE LARGE Leu/uL (Negative); URINE NITRATE NEGATIVE (NEGATIVE); URINE PROTEIN 30 mg/dL (NEGATIVE); URINE UROBILINOGEN 0.2-1.0 mg/dL (0.2-1.0)
[2017-04-07] MEDS ORDERED: Albuterol-Ipratrop 3 mg / 0.5 (3 ml) UD IH PRN (03:05)
[2017-04-07] MEDS ORDERED: Acetaminophen-Codeine 300/30 mg Tab PO PRN (03:05)
[2017-04-07] MEDS: Levothyroxine 100 MCG TAB PO SCH (06:36)
[2017-04-07 07:11] LABS: BASO % 0.3 % (0.0-2.0); EOS # 0.5 K/uL (0.0-0.7); EOS % 5.5 % (0.0-4.0); LYMPH # 2.1 K/uL (1.0-4.3); LYMPH % 24.8 % (20.0-40.0); MEAN CELL VOLUME 88.9 fl (81.0-99.0); MEAN CORPUSCULAR HEMOGLOBIN 29.6 pg (27.0-31.0); MEAN CORPUSCULAR HGB CONC 33.3 g/dL (33.0-37.0); MEAN PLATELET VOLUME 8.2 fl (7.2-11.7); MONO # 0.6 K/uL (0.0-0.8); MONO % 7.5 % (0.0-10.0); NEUT # 5.3 K/uL (1.8-7.0); NEUT % 61.9 % (50.0-75.0); NRBC % 0.1 % (0.0-0.0); RBC 4.07 Mil/uL (3.80-5.20); RED CELL DISTRIBUTION WIDTH 16.2 % (11.5-14.5); WHITE BLOOD COUNT 8.6 K/uL (4.8-10.8)
[2017-04-07 07:20] LABS: ALB/GLOB RATIO 0.9 (1.0-2.1); ALBUMIN 3.1 g/dL (3.5-5.0); ALT/SGPT 38 U/L (9-52); AST/SGOT 23 U/L (14-36); BLOOD UREA NITROGEN 22 mg/dl (7-17); CALCIUM 8.7 mg/dL (8.4-10.2); GFR AFRICAN-AMERICAN 48; GFR NON-AFRICAN AMERICAN 40
[2017-04-07 07:34] LABS: T4 9.68 ug/dl (5.5-11.0)
[2017-04-07 07:38] LABS: HEMOGLOBIN 12.1 g/dL (12.0-16.0)
[2017-04-07] MEDS ORDERED: [UNRECOGNIZED DRUG - MIXTURE] SC SCH (09:00)
[2017-04-07] MEDS: Patient's Own Med (Ranolazine [Ranexa] 1,000 MG) PO SCH ×2 (09:21→17:45)
[2017-04-07] MEDS: Insulin Lispro Mix 75/25 100 units/ml (HumaLog) 10ml SC SCH (09:22)
--- NOTE | 2017-04-07 10:32 | CARD ---
APPROVED REPORT EKG Measurement Heart [id number] <Conclusion> Sinus bradycardia Otherwise normal ECG
--- NOTE | 2017-04-07 11:07 | CP.PCM.CON ---
History of Present Illness - History of Present Illness History of Present Illness: Jennifer Crouch is a 76-year-old female with a history of diabetes, CAD, hypertension, hypercholesterolemia, CHF, COPD and anxiety, who was brought to the emergency department via EMS with complaints of chest pain and fatigue, onset last night (04/06/17 at 3 am). Patient denies cough, fever, and shortness of breath. Pt's main complaint is fatigue x weeks chest pain is described as tightness/suffocating No pain at present MH: Anemia, Anxiety, Arthritis, Asthma, Back Problems, Bronchitis, CAD, CHF, COPD, Depression, Diabetes, Gastritis, HTN, Hypercholesterolemia, Hyperlipidemia, Hypothyroidism, Pneumonia - Surgical History Surgical History: CABG (x4), Cholecystectomy, Coronary Stent Her Manager Strategy is Dr Rossy Beckett EKG: nnormal Troponin:Neg BNP: 3000 Past Patient History - Infectious Disease Hx of Infectious Diseases: None - Past Medical History & Family History Past Medical History?: Yes - Past Social History Smoking Status: Never Smoked - CARDIAC Hx Cardiac Disorders: Yes Hx Congestive Heart Failure: Yes Hx Hypercholesterolemia: Yes Hx Hypertension: Yes - PULMONARY Hx Respiratory Disorders: Yes Hx Asthma: Yes Hx Bronchitis: Yes Hx Chronic Obstructive Pulmonary Disease (COPD): Yes Hx Pneumonia: Yes - NEUROLOGICAL Hx Neurological Disorder: No - HEENT Hx HEENT Problems: No - RENAL Hx Chronic Kidney Disease: No - ENDOCRINE/METABOLIC Hx Diabetes Mellitus Type 2: Yes Hx Hypothyroidism: Yes - HEMATOLOGICAL/ONCOLOGICAL Hx AIDS: No Hx Anemia: Yes Hx Human Immunodeficiency Virus (HIV): No - INTEGUMENTARY Hx Dermatological Problems: No - MUSCULOSKELETAL/RHEUMATOLOGICAL Hx Arthritis: Yes Hx Falls: Yes (1 year ago) Hx Rheumatoid Arthritis: No - GASTROINTESTINAL Hx Gastritis: Yes - GENITOURINARY/GYNECOLOGICAL Hx Genitourinary Disorders: Yes Hx Incontinence: Yes - PSYCHIATRIC Hx Anxiety: Yes Hx Depression: Yes Hx Substance Use: No - SURGICAL HISTORY Hx Cholecystectomy: Yes Hx Coronary Artery Bypass Graft: Yes (x4) Hx Coronary Stent: Yes - ANESTHESIA Hx Anesthesia: Yes Hx Anesthesia Reactions: No Hx Malignant Hyperthermia: No Has any member of the family had a problem w/ anesthesia?: No Meds Allergies/Adverse Reactions: Allergies Allergy/AdvReac Type Severity Reaction Status Date / Time kiwi Allergy Mild RASH Verified 01/12/17 16:51 morphine Allergy Mild RASH Verified 01/12/17 16:51 Penicillins Allergy Mild RASH Verified 01/12/17 16:51 pineapple Allergy Mild RASH Verified 01/12/17 16:51 watermelon Allergy Mild RASH Verified 01/12/17 16:51 - Medications Medications: Current Medications Acetaminophen/Codeine Phosphate (Tylenol/Codeine 300 Mg/30 Mg) 1 tab PO Q8H PRN PRN Reason: Pain, severe (8-10) Albuterol/Ipratropium (Duoneb 3 Mg/0.5 Mg (3 Ml) Ud) 3 ml IH Q6H PRN PRN Reason: Shortness of Breath Alprazolam (Xanax) 0.25 mg PO HS PRN PRN Reason: Insomnia Stop: 04/14/17 03:06 Aspirin (Ecotrin) 81 mg PO DAILY [facility] Last Admin: 04/07/17 09:21 Dose: 81 mg Atorvastatin Calcium (Lipitor) 40 mg PO [facility] Carvedilol (Coreg) 3.125 mg PO Q12H [facility] Last Admin: 04/07/17 09:22 Dose: 3.125 mg Furosemide (Lasix) 20 mg PO DAILY [facility] Last Admin: 04/07/17 09:21 Dose: 20 mg Home Med (Ranolazine [Ranexa]) 1,000 mg PO BID [facility] Last Admin: 04/07/17 09:21 Dose: 1,000 mg Insulin Lispro Protam/Lispro Human (Humalog Mix 75/25) 25 units SC DAILY [facility] Last Admin: 04/07/17 09:22 Dose: 25 units Levothyroxine Sodium (Synthroid) 100 mcg PO DAILY@0630 [facility] Last Admin: 04/07/17 06:36 Dose: 100 mcg Loratadine (Claritin) 10 mg PO DAILY [facility] Last Admin: 04/07/17 09:21 Dose: 10 mg Meclizine HCl (Antivert) 25 mg PO Q6H PRN PRN Reason: Dizziness Nitroglycerin (Nitrostat Sl Tab) 0.4 mg SL Q5MIN PRN PRN Reason: chest pain Physical Exam - Eye Exam Eye Exam: Normal appearance Pupil Exam: NORMAL ACCOMODATION - ENT Exam ENT Exam: Normal Exam - Neck Exam Neck exam: Positive for: Normal Inspection - Respiratory Exam Respiratory Exam: NORMAL BREATHING PATTERN - Cardiovascular Exam Cardiovascular Exam: REGULAR RHYTHM Results - Vital Signs Recent Vital Signs: Last Vital Signs Temp 97.4 F L 04/07/17 07:51 Pulse 68 04/07/17 09:22 Resp 20 04/07/17 07:51 BP 156/56 H 04/07/17 09:22 Pulse Ox 100 04/07/17 07:51 - Labs Result Diagrams: 04/07/17 05:30 04/07/17 05:30 Labs: Laboratory Results - last 24 hr 04/06/17 04/07/17 04/07/17 18:40 05:15 05:30 WBC 8.6 RBC 4.07 Hgb 12.1 D Hct 36.2 MCV 88.9 D MCH 29.6 MCHC 33.3 RDW 16.2 H Plt Count 203 MPV 8.2 Neut % (Auto) 61.9 Lymph % (Auto) 24.8 [place] % (Auto) 7.5 Eos % (Auto) 5.5 H Baso % (Auto) 0.3 Neut # 5.3 Lymph # 2.1 [place] # 0.6 Eos # 0.5 Baso # 0.0 Sodium Potassium Chloride Carbon Dioxide Anion Gap BUN Creatinine Est GFR ( Amer) Est GFR (Non-Af Amer) POC Glucose (mg/dL) 216 H Random Glucose Calcium Total Bilirubin AST ALT Alkaline Phosphatase Troponin I Total Protein Albumin Globulin Albumin/Globulin Ratio Thyroxine (T4) TSH 3rd Generation Urine Color Yellow Urine Clarity Slighty-cloudy Urine pH 5.0 Ur Specific [place] 1.012 Urine Protein 30 Urine Glucose (UA) >=500 Urine Ketones Negative Urine Blood Negative Urine Nitrate Negative Urine Bilirubin Negative Urine Urobilinogen 0.2-1.0 Ur Leukocyte Esterase Large Urine RBC (Auto) 7 H Urine Microscopic WBC 119 H Ur Squamous Epith Cells 4 Urine Bacteria Rare Hyaline Casts 0-2 04/07/17 05:30 WBC RBC Hgb Hct MCV MCH MCHC RDW Plt Count MPV Neut % (Auto) Lymph % (Auto) [place] % (Auto) Eos % (Auto) Baso % (Auto) Neut # Lymph # [place] # Eos # Baso # Sodium 140 Potassium 5.3 H Chloride 102 Carbon Dioxide 32 H Anion Gap 11 BUN 22 H Creatinine 1.3 H Est GFR ( Amer) 48 Est GFR (Non-Af Amer) 40 POC Glucose (mg/dL) Random Glucose 209 H Calcium 8.7 Total Bilirubin 0.3 AST 23 ALT 38 Alkaline Phosphatase 146 H Troponin I < 0.0120 Total Protein 6.4 Albumin 3.1 L Globulin 3.3 Albumin/Globulin Ratio 0.9 L Thyroxine (T4) 9.68 TSH 3rd Generation 3.10 Urine Color Urine Clarity Urine pH Ur Specific [place] Urine Protein Urine Glucose (UA) Urine Ketones Urine Blood Urine Nitrate Urine Bilirubin Urine Urobilinogen Ur Leukocyte Esterase Urine RBC (Auto) Urine Microscopic WBC Ur Squamous Epith Cells Urine Bacteria Hyaline Casts Assessment & Plan (1) Acute on chronic systolic congestive heart failure Assessment and Plan: Agree with your treatment Status: Acute (2) Chronic chest pain Assessment and Plan: ACS ruled out will follow Status: Acute
--- NOTE | 2017-04-07 12:35 | CP.PCM.HP ---
History of Present Illness - History of Present Illness History of Present Illness: CC: Chest pain. 76 y/o F, brought to ER [facility], [place] by EMS to be evaluated for Chest pain on day [employer]. Pt came to hospital c/o of chest pain while at home on night [employer] associated to fatigue, Pt had NTG s/l with some relief but at 3:00 AM DOA she experienced recurrent moderate chest pain as tightness type and came to hospital for evaluation and Tx, there after Pt was admitted. Worsening symptoms: Anemia, Hgb on 8.8 while evaluated in the ER, after 1 U PRBC and Hgb increased to 12.1, also generalized weakness, Hx of CABG, Coronary stent. Aggravated factor: Non ambulatory. Pt denied: ever, chills, n/v/d, abdominal pain, SOB, cough, palpitations, dizziness, syncope, sick contact, recent travel. PMHx: HTN, CHF, CAD, Hx of CABG x 4, Coronary Stent, COPD, Asthma, L TMA, High Cholesterol, Hypothyroidism, CKD, DMII with Hyperglycemia, Gastritis, Chronic Back pain, Hx UTI, Anxiety. EKG on 04/06 showed: Normal sinus rhythm. In AM today HR was 56 and EKG showed sinus bradycardia but after increased to normal. CXR shows: No active disease. Present on Admission - Present on Admission Any Indicators Present on Admission: No Review of Systems - Constitutional Constitutional: Weakness (generalized), Other (negative.) - EENT Eyes: Requires Corrective Lenses, Loss of Vision (L eye) Ears: Decreased Hearing (R ear) Nose/Mouth/Throat: Other (negative) - Cardiovascular Cardiovascular: Chest Pain - Respiratory Respiratory: Other (negative) - Gastrointestinal Gastrointestinal: Other (negative) - Genitourinary Genitourinary: Urinary Incontinence - Musculoskeletal Musculoskeletal: Arthralgias, Back Pain, Muscle Weakness - Integumentary Integumentary: Other (negative) - Neurological Neurological: Other (negative) - Psychiatric Psychiatric: Anxiety, Depression - Endocrine Endocrine: Other (negative) - Hematologic/Lymphatic Hematologic: Other (anemia.) Past Patient History - Infectious Disease Hx of Infectious Diseases: None - Past Medical History & Family History Past Medical History?: Yes Pertinent Family History: Unknown - Past Social History Smoking Status: Never Smoked Alcohol: None Drugs: Denies Home Situation {Lives}: With Family - CARDIAC Hx Cardiac Disorders: Yes Hx Congestive Heart Failure: Yes Hx Hypercholesterolemia: Yes Hx Hypertension: Yes - PULMONARY Hx Respiratory Disorders: Yes Hx Asthma: Yes Hx Bronchitis: Yes Hx Chronic Obstructive Pulmonary Disease (COPD): Yes Hx Pneumonia: Yes - NEUROLOGICAL Hx Neurological Disorder: No - HEENT Hx HEENT Problems: No - RENAL Hx Chronic Kidney Disease: No - ENDOCRINE/METABOLIC Hx Diabetes Mellitus Type 2: Yes Hx Hypothyroidism: Yes - HEMATOLOGICAL/ONCOLOGICAL Hx AIDS: No Hx Anemia: Yes Hx Human Immunodeficiency Virus (HIV): No - INTEGUMENTARY Hx Dermatological Problems: No - MUSCULOSKELETAL/RHEUMATOLOGICAL Hx Arthritis: Yes Hx Falls: Yes (1 year ago) Hx Rheumatoid Arthritis: No - GASTROINTESTINAL Hx Gastritis: Yes - GENITOURINARY/GYNECOLOGICAL Hx Genitourinary Disorders: Yes Hx Incontinence: Yes - PSYCHIATRIC Hx Anxiety: Yes Hx Depression: Yes Hx Substance Use: No - SURGICAL HISTORY Hx Cholecystectomy: Yes Hx Coronary Artery Bypass Graft: Yes (x4) Hx Coronary Stent: Yes - ANESTHESIA Hx Anesthesia: Yes Hx Anesthesia Reactions: No Hx Malignant Hyperthermia: No Has any member of the family had a problem w/ anesthesia?: No Meds Allergies/Adverse Reactions: Allergies Allergy/AdvReac Type Severity Reaction Status Date / Time kiwi Allergy Mild RASH Verified 01/12/17 16:51 morphine Allergy Mild RASH Verified 01/12/17 16:51 Penicillins Allergy Mild RASH Verified 01/12/17 16:51 pineapple Allergy Mild RASH Verified 01/12/17 16:51 watermelon Allergy Mild RASH Verified 01/12/17 16:51 Physical Exam - Constitutional Appears: No Acute Distress, Chronically Ill - Head Exam Head Exam: NORMAL INSPECTION - Eye Exam Eye Exam: PERRL (R eye, L eye blind.) - ENT Exam ENT Exam: Normal Oropharynx Additional comments: Hard of hearing R ear. - Neck Exam Neck exam: Positive for: Normal Inspection - Respiratory Exam Respiratory Exam: Decreased Breath Sounds (at bases) Additional comments: Crakles R base - Cardiovascular Exam Cardiovascular Exam: REGULAR RHYTHM - GI/Abdominal Exam GI & Abdominal Exam: Normal Bowel Sounds, Soft - Extremities Exam Additional comments: L TMA. - Back Exam Back exam: NORMAL INSPECTION - Neurological Exam Neurological exam: Alert, Oriented x3 Additional comments: At times forgetful, moves all extremities against gravity, generalized weakness. - Psychiatric Exam Psychiatric exam: Anxious - Skin Skin Exam: Warm Results - Vital Signs Recent Vital Signs: Last Vital Signs Temp 97.5 F L 04/07/17 12:32 Pulse 70 04/07/17 12:32 Resp 20 04/07/17 12:32 BP 126/61 04/07/17 12:32 Pulse Ox 97 04/07/17 12:32 Reviewed Cheryl - Labs Result Diagrams: 04/07/17 05:30 04/07/17 05:30 Labs: Laboratory Results - last 24 hr 04/06/17 04/07/17 04/07/17 18:40 05:15 05:30 WBC 8.6 RBC 4.07 Hgb 12.1 D Hct 36.2 MCV 88.9 D MCH 29.6 MCHC 33.3 RDW 16.2 H Plt Count 203 MPV 8.2 Neut % (Auto) 61.9 Lymph % (Auto) 24.8 [place] % (Auto) 7.5 Eos % (Auto) 5.5 H Baso % (Auto) 0.3 Neut # 5.3 Lymph # 2.1 [place] # 0.6 Eos # 0.5 Baso # 0.0 Sodium Potassium Chloride Carbon Dioxide Anion Gap BUN Creatinine Est GFR ( Amer) Est GFR (Non-Af Amer) POC Glucose (mg/dL) 216 H Random Glucose Hemoglobin A1c Calcium Total Bilirubin AST ALT Alkaline Phosphatase Troponin I Total Protein Albumin Globulin Albumin/Globulin Ratio Thyroxine (T4) TSH 3rd Generation Urine Color Yellow Urine Clarity Slighty-cloudy Urine pH 5.0 Ur Specific [place] 1.012 Urine Protein 30 Urine Glucose (UA) >=500 Urine Ketones Negative Urine Blood Negative Urine Nitrate Negative Urine Bilirubin Negative Urine Urobilinogen 0.2-1.0 Ur Leukocyte Esterase Large Urine RBC (Auto) 7 H Urine Microscopic WBC 119 H Ur Squamous Epith Cells 4 Urine Bacteria Rare Hyaline Casts 0-2 04/07/17 04/07/17 04/07/17 05:30 05:30 11:03 WBC RBC Hgb Hct MCV MCH MCHC RDW Plt Count MPV Neut % (Auto) Lymph % (Auto) [place] % (Auto) Eos % (Auto) Baso % (Auto) Neut # Lymph # [place] # Eos # Baso # Sodium 140 Potassium 5.3 H Chloride 102 Carbon Dioxide 32 H Anion Gap 11 BUN 22 H Creatinine 1.3 H Est GFR ( Amer) 48 Est GFR (Non-Af Amer) 40 POC Glucose (mg/dL) 285 H Random Glucose 209 H Hemoglobin A1c 8.3 H Calcium 8.7 Total Bilirubin 0.3 AST 23 ALT 38 Alkaline Phosphatase 146 H Troponin I < 0.0120 Total Protein 6.4 Albumin 3.1 L Globulin 3.3 Albumin/Globulin Ratio 0.9 L Thyroxine (T4) 9.68 TSH 3rd Generation 3.10 Urine Color Urine Clarity Urine pH Ur Specific [place] Urine Protein Urine Glucose (UA) Urine Ketones Urine Blood Urine Nitrate Urine Bilirubin Urine Urobilinogen Ur Leukocyte Esterase Urine RBC (Auto) Urine Microscopic WBC Ur Squamous Epith Cells Urine Bacteria Hyaline Casts reviewed J.P. - EKG Data EKG comments: reviewed J.P. - Imaging and Cardiology Chest x-ray Status: Report reviewed by me (J.P.) Assessment & Plan (1) Acute on chronic systolic congestive heart failure Status: Acute Priority: High (2) Chest pain Status: Chronic Priority: Medium (3) Type 2 diabetes mellitus with hyperglycemia Status: Chronic Priority: High (4) COPD (chronic obstructive pulmonary disease) Status: Chronic Priority: Medium (5) Hypothyroidism Status: Chronic Priority: Medium (6) Anxiety Status: Chronic Priority: Medium - Assessment and Plan (Free Text) Plan: F/U Echo, PT, Continue Coreg, Duoneb Tx prn, Humallog Mix 75/25 and rest of Tx , Cardiology consult appreciated. - Date & Time Date: 04/07/17 Time: 11:00
[2017-04-07 15:35] LABS: IRON 32 ug/dL (37-170)
[2017-04-07 15:48] LABS: % IRON SATURATION 14 % (20-55); TOTAL IRON BINDING CAPACITY 225 ug/dL (250-450)
[2017-04-07 21:55] LABS: FOLATE 6.4 ng/mL
[2017-04-08 02:10] LABS: SQUAMOUS EPITHIAL 1 /hpf (0-5); URINE BACTERIA MANY (<OCC); URINE BILIRUBIN NEGATIVE (NEGATIVE); URINE BLOOD NEGATIVE (NEGATIVE); URINE CLARITY SLIGHTY-CLOUDY (Clear); URINE COLOR YELLOW (YELLOW); URINE GLUCOSE (UA) 50 mg/dL (Normal); URINE LEUKOCYTE ESTERASE TRACE Leu/uL (Negative); URINE NITRATE NEGATIVE (NEGATIVE); URINE PROTEIN NEGATIVE (NEGATIVE); URINE UROBILINOGEN 0.2-1.0 mg/dL (0.2-1.0)
[2017-04-08] MEDS: Levothyroxine 100 MCG TAB PO SCH (06:23)
[2017-04-08 06:30] LABS: HEMOGLOBIN 11.7 g/dL (12.0-16.0); MEAN CELL VOLUME 89.5 fl (81.0-99.0); MEAN CORPUSCULAR HEMOGLOBIN 29.5 pg (27.0-31.0); RBC 3.95 Mil/uL (3.80-5.20); RED CELL DISTRIBUTION WIDTH 15.8 % (11.5-14.5); WHITE BLOOD COUNT 7.9 K/uL (4.8-10.8)
[2017-04-08 07:06] LABS: CALCIUM 8.7 mg/dL (8.4-10.2)
[2017-04-08 08:28] VITALS: RESP 18
[2017-04-08] MEDS: Patient's Own Med (Ranolazine [Ranexa] 1,000 MG) PO SCH ×2 (08:32→16:46)
[2017-04-08] MEDS: Insulin Lispro Mix 75/25 100 units/ml (HumaLog) 10ml SC SCH (08:35)
[2017-04-08] MEDS ORDERED: Insulin Lispro Mix 75/25 100 units/ml (HumaLog) 10ml SC STA (08:35)
--- NOTE | 2017-04-08 10:02 | CARD ---
APPROVED REPORT EXAM: Two-dimensional and M-mode echocardiogram with Doppler and color Doppler. Other Information Quality : AverageRhythm : NSR INDICATION Chest Pain 2D DIMENSIONS IVSd1.47 (0.7-1.1cm)LVDd3.86 (3.9-5.9cm) LVOT Diameter1.97 (1.8-2.4cm)PWd1.11 (0.7-1.1cm) IVSs1.30 (0.8-1.2cm)LVDs2.98 (2.5-4.0cm) FS (%) 22.9 %PWs1.40 (0.8-1.2cm) M-Mode DIMENSIONS Left Atrium (MM)3.85 (2.5-4.0cm)IVSd0.94 (0.7-1.1cm) Aortic Root2.79 (2.2-3.7cm)LVDd5.18 (4.0-5.6cm) Aortic Cusp Exc.1.76 (1.5-2.0cm)PWd1.00 (0.7-1.1cm) IVSs1.47 cmFS (%) 42 % LVDs3.00 (2.0-3.8cm)PWs1.47 cm Mitral Valve MV E Jhvegnpt06.4cm/sMV DECEL [id number] A Cyzictcu49.9cm/s MV [id number]/A ratio0.8MVA (PHT)2.18cm2 TDI E/Lateral E'0.0E/Medial E'0.0 Pulmonary Valve PV Peak Qmhmentr12.3cm/s LEFT VENTRICLE The left ventricle is normal size. There is normal left ventricular wall thickness. Left ventricle systolic function is normal. The Ejection Fraction is 55-60%. There is normal LV segmental wall motion. Transmitral Doppler flow pattern is Grade I-abnormal relaxation pattern. RIGHT VENTRICLE The right ventricle is normal size. There is normal right ventricular wall thickness. The right ventricular systolic function is normal. ATRIA The left atrium size is normal. The right atrium size is normal. AORTIC VALVE The aortic valve is normal in structure and function. No aortic regurgitation is present. There is no aortic valvular stenosis. MITRAL VALVE The mitral valve is normal in structure. There is no evidence of mitral valve prolapse. There is no mitral valve stenosis. Mitral regurgitation is mild. TRICUSPID VALVE The tricuspid valve is normal in structure and function. There is no tricuspid valve regurgitation noted. PULMONIC VALVE The pulmonary valve is normal in structure and function. There is no pulmonic valvular regurgitation. GREAT VESSELS The aortic root is normal in size. The IVC was not visualized. PERICARDIAL EFFUSION The pericardium appears normal. <Conclusion> The left ventricle is normal size. There is normal left ventricular wall thickness. There is normal LV segmental wall motion. Left ventricle systolic function is normal. The Ejection Fraction is 55-60%. Transmitral Doppler flow pattern is Grade I-abnormal relaxation pattern.
[2017-04-08 12:05] VITALS: O2SAT 99
--- NOTE | 2017-04-08 14:29 | PQF GENQUE ---
Dr. Oliver, Current CKD? if in agreement: Please clarify the stage of the chronic kidney disease: Stage 1 Stage 2 (mild) Stage 3 (moderate) Stage 4 (severe) Stage 5 Other (please specify) Clinically unable to determine Unknown OR: Disagree H and P: History of CKD GFR( Amer/Non- Af-Amer): 58/48->48/40->44/36 This form is a permanent part of the medical record Clarification of your documentation is requested to better reflect the severity of illness and intensity of treatment of your patient. Indicators present [] Specify: [] [] Specify: [] [] Specify: [] [] Specify: [] Location in the medical record that reflects the above clinical findings: [] Treatment Provided: [] PHYSICIAN'S RESPONSE Based on your medical judgment of the clinical indicators outlined above please clarify the following: [] Practitioner response [] If unable to determine, please check the box, sign and date. Present On Admission (POA) Indicator: [] Present at the time of admission [] Not present at the time of admission [] Clinically Undetermined In responding to this query, please exercise your independent professional judgment. The fact that a question is asked does not imply that any particular answer is desired or expected. Thank you for your clarification on this documentation. If you have any questions please call. * Thank you, Viji Lopez RN BSN ext. #[phone] MTDD
--- NOTE | 2017-04-08 14:30 | CP.PCM.PN ---
Subjective - Date & Time of Evaluation Date of Evaluation: 04/08/17 Time of Evaluation: 12:20 - Subjective Subjective: F/U Acute on Chronic CHF. Objective - Vital Signs/Intake and Output Vital Signs (last 24 hours): Temp Pulse Resp BP Pulse Ox 97.6 F 65 18 113/72 99 04/08/17 12:04 04/08/17 12:04 04/08/17 12:04 04/08/17 12:04 04/08/17 12:04 - Medications Medications: Current Medications Acetaminophen/Codeine Phosphate (Tylenol/Codeine 300 Mg/30 Mg) 1 tab PO Q8H PRN PRN Reason: Pain, severe (8-10) Albuterol/Ipratropium (Duoneb 3 Mg/0.5 Mg (3 Ml) Ud) 3 ml IH Q6H PRN PRN Reason: Shortness of Breath Alprazolam (Xanax) 0.25 mg PO HS PRN PRN Reason: Insomnia Stop: 04/14/17 03:06 Last Admin: 04/07/17 21:57 Dose: 0.25 mg Aspirin (Ecotrin) 81 mg PO DAILY [facility] Last Admin: 04/08/17 08:31 Dose: 81 mg Atorvastatin Calcium (Lipitor) 40 mg PO HS [facility] Last Admin: 04/07/17 21:08 Dose: 40 mg Carvedilol (Coreg) 3.125 mg PO Q12H [facility] Last Admin: 04/08/17 08:31 Dose: Not Given Furosemide (Lasix) 20 mg IVP BID [facility] Last Admin: 04/08/17 08:32 Dose: 20 mg Home Med (Ranolazine [Ranexa]) 1,000 mg PO BID [facility] Last Admin: 04/08/17 08:32 Dose: 1,000 mg Insulin Lispro Protam/Lispro Human (Humalog Mix 75/25) 25 units SC DAILY [facility] Last Admin: 04/08/17 08:35 Dose: Not Given Levothyroxine Sodium (Synthroid) 100 mcg PO DAILY@0630 [facility] Last Admin: 04/08/17 06:23 Dose: 100 mcg Loratadine (Claritin) 10 mg PO DAILY [facility] Last Admin: 04/08/17 08:30 Dose: 10 mg Meclizine HCl (Antivert) 25 mg PO Q6H PRN PRN Reason: Dizziness Nitroglycerin (Nitrostat Sl Tab) 0.4 mg SL Q5MIN PRN PRN Reason: chest pain - Labs Labs: 04/08/17 05:00 04/08/17 05:00 PT 11.3 Seconds (9.8-13.1) 04/06/17 13:20 INR 1.0 (0.9-1.2) 04/06/17 13:20 APTT 21.8 Seconds (25.6-37.1) L 04/06/17 13:20 - Constitutional Appears: No Acute Distress, Chronically Ill - Head Exam Head Exam: NORMAL INSPECTION - Eye Exam 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 - Neck Exam Neck Exam: Normal Inspection - Respiratory Exam Respiratory Exam: Decreased Breath Sounds (at bases) Additional comments: Crackles R base. - Cardiovascular Exam Cardiovascular Exam: REGULAR RHYTHM - GI/Abdominal Exam GI & Abdominal Exam: Soft, Normal Bowel Sounds - Extremities Exam Additional comments: L TMA - Back Exam Back Exam: NORMAL INSPECTION - Neurological Exam Neurological Exam: Alert, Oriented x3 Additional comments: Forgetful at times, moves all extremities against gravity, generalized weakness. - Psychiatric Exam Psychiatric exam: Anxious - Skin Skin Exam: Warm Assessment and Plan (1) Acute on chronic systolic congestive heart failure Status: Acute (2) Chest pain Status: Chronic (3) Type 2 diabetes mellitus with hyperglycemia Status: Chronic (4) COPD (chronic obstructive pulmonary disease) Status: Chronic (5) Hypothyroidism Status: Chronic (6) Anxiety Status: Chronic
--- NOTE | 2017-04-08 14:43 | PQF GENQUE ---
Dr. Oliver, Please clarify the type of anemia:if known after the work up is completed Blood loss anemia, acute Blood loss anemia, chronic Chronic anemia Deficiency anemia (please specify type) Due to/in/with chronic kidney disease Due to/in/with kidney failure Iron deficiency anemia Macrocytic anemia Microcytic anemia Normocytic anemia Postoperative blood loss anemia Pernicious anemia Other anemia (please specify) Clinically unable to determine Unknown H/H:8.8/27.5->12.1/36.2->11.7/35.4 Stool OB: Negative transfused, iron and TIBC and folate levels pending This form is a permanent part of the medical record Clarification of your documentation is requested to better reflect the severity of illness and intensity of treatment of your patient. Indicators present [] Specify: [] [] Specify: [] [] Specify: [] [] Specify: [] Location in the medical record that reflects the above clinical findings: [] Treatment Provided: [] PHYSICIAN'S RESPONSE Based on your medical judgment of the clinical indicators outlined above please clarify the following: [] Practitioner response [] If unable to determine, please check the box, sign and date. Present On Admission (POA) Indicator: [] Present at the time of admission [] Not present at the time of admission [] Clinically Undetermined In responding to this query, please exercise your independent professional judgment. The fact that a question is asked does not imply that any particular answer is desired or expected. Thank you for your clarification on this documentation. If you have any questions please call. * Thank you, Viji Lopez RN BSN ext. #[phone] MTDD
[2017-04-08 16:27] VITALS: BP 136/90; PULSE 71; TEMP 97.4
--- NOTE | 2017-04-14 12:32 | CP.PCM.DIS ---
Provider - Provider Date of Admission: 04/06/17 16:43 Attending physician: Sridhar Oliver MD Consults: Cardiology Time Spent in preparation of Discharge (in minutes): 25 Diagnosis - Discharge Diagnosis (1) Acute on chronic systolic congestive heart failure Status: Acute Priority: High (2) Chest pain Status: Chronic Priority: Medium (3) Type 2 diabetes mellitus with hyperglycemia Status: Chronic Priority: High (4) COPD (chronic obstructive pulmonary disease) Status: Chronic Priority: Medium (5) Hypothyroidism Status: Chronic Priority: Medium (6) Anxiety Status: Chronic Priority: Medium Hospital Course - Lab Results Lab Results: Most Recent Lab Values WBC 7.9 K/uL (4.8-10.8) 04/08/17 05:00 RBC 3.95 Mil/uL (3.80-5.20) 04/08/17 05:00 Hgb 11.7 g/dL (12.0-16.0) L 04/08/17 05:00 Hct 35.4 % (34.0-47.0) 04/08/17 05:00 MCV 89.5 fl (81.0-99.0) 04/08/17 05:00 MCH 29.5 pg (27.0-31.0) 04/08/17 05:00 MCHC 33.0 g/dL (33.0-37.0) 04/08/17 05:00 RDW 15.8 % (11.5-14.5) H 04/08/17 05:00 Plt Count 199 K/uL (130-400) 04/08/17 05:00 MPV 8.2 fl (7.2-11.7) 04/07/17 05:30 Neut % (Auto) 61.9 % (50.0-75.0) 04/07/17 05:30 Lymph % (Auto) 24.8 % (20.0-40.0) 04/07/17 05:30 Josephine % (Auto) 7.5 % (0.0-10.0) 04/07/17 05:30 Eos % (Auto) 5.5 % (0.0-4.0) H 04/07/17 05:30 Baso % (Auto) 0.3 % (0.0-2.0) 04/07/17 05:30 Neut # 5.3 K/uL (1.8-7.0) 04/07/17 05:30 Lymph # 2.1 K/uL (1.0-4.3) 04/07/17 05:30 Josephine # 0.6 K/uL (0.0-0.8) 04/07/17 05:30 Eos # 0.5 K/uL (0.0-0.7) 04/07/17 05:30 Baso # 0.0 K/uL (0.0-0.2) 04/07/17 05:30 PT 11.3 Seconds (9.8-13.1) 04/06/17 13:20 INR 1.0 (0.9-1.2) 04/06/17 13:20 APTT 21.8 Seconds (25.6-37.1) L 04/06/17 13:20 Sodium 137 mmol/l (132-148) 04/08/17 05:00 Potassium 5.2 MMOL/L (3.6-5.0) H 04/08/17 05:00 Chloride 101 mmol/L (98-107) 04/08/17 05:00 Carbon Dioxide 31 mmol/L (22-30) H 04/08/17 05:00 Anion Gap 10 (10-20) 04/08/17 05:00 BUN 29 mg/dl (7-17) H 04/08/17 05:00 Creatinine 1.4 mg/dL (0.7-1.2) H 04/08/17 05:00 Est GFR ( Amer) 44 04/08/17 05:00 Est GFR (Non-Af Amer) 36 04/08/17 05:00 POC Glucose (mg/dL) 234 mg/dL (65-110) H 04/08/17 16:09 Random Glucose 73 mg/dL (65-105) 04/08/17 05:00 Hemoglobin A1c 8.3 % (4.2-6.5) H 04/07/17 05:30 Calcium 8.7 mg/dL (8.4-10.2) 04/08/17 05:00 Iron 32 ug/dL (37-170) L 04/07/17 15:00 TIBC 225 ug/dL (250-450) L 04/07/17 15:00 % Saturation 14 % (20-55) L 04/07/17 15:00 Ferritin 119.0 ng/mL 04/07/17 15:00 Total Bilirubin 0.3 mg/dl (0.2-1.3) 04/07/17 05:30 AST 23 U/L (14-36) 04/07/17 05:30 ALT 38 U/L (9-52) 04/07/17 05:30 Alkaline Phosphatase 146 U/L (38-126) H 04/07/17 05:30 Troponin I < 0.0120 ng/mL (0.00-0.120) 04/07/17 21:45 NT-Pro-B Natriuret Pep 998 pg/ml (0-900) H 04/08/17 05:00 Total Protein 6.4 G/DL (6.3-8.2) 04/07/17 05:30 Albumin 3.1 g/dL (3.5-5.0) L 04/07/17 05:30 Globulin 3.3 gm/dL (2.2-3.9) 04/07/17 05:30 Albumin/Globulin Ratio 0.9 (1.0-2.1) L 04/07/17 05:30 Vitamin B12 437 pg/mL (239-931) 04/07/17 15:00 Folate 6.4 ng/mL 04/07/17 15:00 Thyroxine (T4) 9.68 ug/dl (5.5-11.0) 04/07/17 05:30 TSH 3rd Generation 3.10 mIU/ML (0.46-4.68) 04/07/17 05:30 Urine Color Yellow (YELLOW) 04/07/17 10:33 Urine Clarity Slighty-cloudy (Clear) 04/07/17 10:33 Urine pH 6.0 (5.0-8.0) 04/07/17 10:33 Ur Specific [place] 1.008 (1.003-1.030) 04/07/17 10:33 Urine Protein Negative mg/dL (NEGATIVE) 04/07/17 10:33 Urine Glucose (UA) 50 mg/dL (Normal) 04/07/17 10:33 Urine Ketones Negative mg/dL (NEGATIVE) 04/07/17 10:33 Urine Blood Negative (NEGATIVE) 04/07/17 10:33 Urine Nitrate Negative (NEGATIVE) 04/07/17 10:33 Urine Bilirubin Negative (NEGATIVE) 04/07/17 10:33 Urine Urobilinogen 0.2-1.0 mg/dL (0.2-1.0) 04/07/17 10:33 Ur Leukocyte Esterase Trace [place]/uL (Negative) 04/07/17 10:33 Urine RBC (Auto) 5 /hpf (0-3) H 04/07/17 10:33 Urine Microscopic WBC 6 /hpf (0-5) H 04/07/17 10:33 Ur Squamous Epith Cells 1 /hpf (0-5) 04/07/17 10:33 Urine Bacteria Many (<OCC) H 04/07/17 10:33 Hyaline Casts 0-2 /hpf (0-2) 04/06/17 18:40 Stool Occult Blood Negative (NEGATIVE) 04/06/17 16:35 Blood Type O POSITIVE 04/06/17 16:35 Antibody Screen Negative 04/06/17 16:35 Crossmatch See Detail 04/06/17 16:35 BBK History Checked Patient has bt 04/06/17 16:35 - Date & Time of H&P Date of H&P: 04/07/17 Time of H&P: 11:00 Discharge Exam - Head Exam Head Exam: NORMAL INSPECTION Discharge Plan - Discharge Medications Prescriptions: ALPRAZolam [Xanax] 0.25 mg PO HS PRN #5 PRN Reason: Insomnia - Follow Up Plan Condition: STABLE Disposition: HOME/ ROUTINE Patient education suggested?: Yes Instructions: Heart Failure (DC), Chest Pain (DC), Anemia (DC) Additional Instructions: patient cleared for discharge to Home today by and Pt. has rx for all meds ( reviewed with patient/ daughter) f/u with , in 1 week Referrals: Sridhar Oliver MD [Family Provider] - Lorelei Trinidad MD [Staff Provider] - Sridhar Beckett MD [Staff Provider] -
== END 2017-04-08 17:42 | disposition home or self-care (01) | DRG 544 ==
LOC: H.ER 12:43 → H.ERHOLD 16:43 → H.TEL 22:54
PROVIDERS: ADMIT Internal Medicine Pulmonary Disease; ATTEND Internal Medicine Pulmonary Disease
PROC: 30233N1 Transfusion of Nonautologous Red Blood Cells into Peripheral Vein, Percutaneous Approach (ICD-10-PCS; principal; 2017-04-07)
DX: I13.0 Hypertensive heart and chronic kidney disease with heart failure and stage 1 through stage 4 chronic kidney disease, or unspecified chronic kidney disease (principal); I50.23 Acute on chronic systolic (congestive) heart failure; E11.65 Type 2 diabetes mellitus with hyperglycemia; J44.9 Chronic obstructive pulmonary disease, unspecified; D50.0 Iron deficiency anemia secondary to blood loss (chronic); N18.3 Chronic kidney disease, stage 3 (moderate); E03.9 Hypothyroidism, unspecified; E78.00 Pure hypercholesterolemia, unspecified; E78.5 Hyperlipidemia, unspecified; F32.9 Major depressive disorder, single episode, unspecified; F41.9 Anxiety disorder, unspecified; G89.29 Other chronic pain; I25.10 Atherosclerotic heart disease of native coronary artery without angina pectoris; K29.70 Gastritis, unspecified, without bleeding; M19.90 Unspecified osteoarthritis, unspecified site; Z95.1 Presence of aortocoronary bypass graft; Z95.5 Presence of coronary angioplasty implant and graft; J45.909 Unspecified asthma, uncomplicated; Z88.5 Allergy status to narcotic agent; Z88.0 Allergy status to penicillin; Z91.018 Allergy to other foods; D50.9 Iron deficiency anemia, unspecified

== ENCOUNTER 2017-05-31 12:05 | Emergency (ER) | payer MEDICAID ==
[2017-05-31 12:05] VITALS: BMI 33.6
[2017-05-31 12:10] VITALS: PULSE 63; RESP 16; TEMP 98.1
[2017-05-31 13:21] LABS: BASO # 0.1 K/uL (0.0-0.2); EOS # 0.4 K/uL (0.0-0.7); EOS % 5.3 % (0.0-4.0); HEMATOCRIT 34.5 % (34.0-47.0); LYMPH # 2.3 K/uL (1.0-4.3); LYMPH % 31.8 % (20.0-40.0); MEAN CELL VOLUME 93.3 fl (81.0-99.0); MEAN CORPUSCULAR HEMOGLOBIN 30.4 pg (27.0-31.0); MEAN CORPUSCULAR HGB CONC 32.6 g/dL (33.0-37.0); MEAN PLATELET VOLUME 8.1 fl (7.2-11.7); MONO # 0.7 K/uL (0.0-0.8); MONO % 9.2 % (0.0-10.0); NEUT # 3.8 K/uL (1.8-7.0); NEUT % 52.7 % (50.0-75.0); RED CELL DISTRIBUTION WIDTH 17.2 % (11.5-14.5); WHITE BLOOD COUNT 7.2 K/uL (4.8-10.8)
[2017-05-31 13:35] LABS: BILIRUBIN,TOTAL 0.5 mg/dl (0.2-1.3); CALCIUM 9.4 mg/dL (8.4-10.2); POTASSIUM 5.2 MMOL/L (3.6-5.0); TOTAL PROTEIN 6.8 G/DL (6.3-8.2)
--- NOTE | 2017-05-31 15:11 | ED PDOC ---
HPI: Female Pain Time Seen by Provider: 05/31/17 12:29 Chief Complaint (Nursing): Female Genitourinary Chief Complaint (Provider): UA History Per: Patient History/Exam Limitations: no limitations Additional Complaint(s): 77yo F in ED for eval of UTI-admits to 2-3 d of suprapubic pain, burning with urniation without fever chills back pain or dizziness. admits to hx of UTI x 1 year and was recently on abx (doens't remember name of ax(). denies vomiting. Past Medical History Reviewed: Historical Data, Nursing Documentation, Vital Signs Vital Signs: Last Vital Signs Temp 98.1 F 05/31/17 12:07 Pulse 63 05/31/17 12:07 Resp 16 05/31/17 12:07 BP 159/62 H 05/31/17 12:07 Pulse Ox 97 05/31/17 12:07 - Medical History PMH: Anemia, Anxiety, Arthritis, Asthma, Back Problems, Bronchitis, CAD, CHF, COPD, Depression, Diabetes, Gastritis, HTN, Hypercholesterolemia, Hyperlipidemia , Hypothyroidism, Peripheral Edema, Pneumonia Denies: HIV, Chronic Kidney Disease, Rheumatoid Arthritis - Surgical History Surgical History: CABG (x4), Cholecystectomy, Coronary Stent Denies: Pacemaker - Family History Family History: States: Unknown Family Hx - Home Medications Home Medications: Ambulatory Orders Medication Instructions Recorded Albuterol/Ipratropium [Duoneb 3 3 ml IH Q6H PRN 01/12/17 mg/0.5 mg (3 ml) UD] Aspirin [Ecotrin] 81 mg PO DAILY 01/12/17 Carvedilol [Coreg] 3.125 mg PO Q12H 01/12/17 Insulin Human (NPH)/Regular 25 unit SC DAILY 01/12/17 [Novolin 70/30 (70/30 units/ml) 10 ml] Levothyroxine [Synthroid] 100 mcg PO DAILY 01/12/17 Nitroglycerin [Nitrostat] 0.4 mg SL Q5MIN PRN 01/12/17 Ranolazine [Ranexa] 1,000 mg PO BID 01/12/17 Acetaminophen with Codeine 1 tab PO Q8H PRN 01/22/17 [Tylenol with Codeine #3 Tablet] Atorvastatin [Lipitor] 40 mg PO HS 02/01/17 Loratadine [Claritin] 10 mg PO DAILY 02/01/17 Furosemide [Lasix] 20 mg PO Q48H 03/17/17 Meclizine [Meclizine*] 25 mg PO Q6H PRN 04/06/17 ALPRAZolam [Xanax] 0.25 mg PO HS PRN #5 04/08/17 Nitrofurantoin Macrocrystals 100 mg PO BID #14 cap 05/31/17 [Macrobid] - Allergies Allergies/Adverse Reactions: Allergies Allergy/AdvReac Type Severity Reaction Status Date / Time kiwi Allergy Mild RASH Verified 01/12/17 16:51 morphine Allergy Mild RASH Verified 01/12/17 16:51 Penicillins Allergy Mild RASH Verified 01/12/17 16:51 pineapple Allergy Mild RASH Verified 01/12/17 16:51 watermelon Allergy Mild RASH Verified 01/12/17 16:51 Review of Systems ROS Statement: Except As Marked, All Systems Reviewed And Found Negative Constitutional: Negative for: Fever, Chills Genitourinary Female: Positive for: Dysuria. Negative for: Hematuria Physical Exam - Reviewed Nursing Documentation Reviewed: Yes Vital Signs Reviewed: Yes - Physical Exam Appears: Positive for: Well, Non-toxic, No Acute Distress Head Exam: Positive for: ATRAUMATIC, NORMAL INSPECTION, NORMOCEPHALIC Skin: Positive for: Normal Color, Warm, DRY Cardiovascular/Chest: Positive for: Regular Rate, Rhythm Respiratory: Positive for: CNT, Normal Breath Sounds Gastrointestinal/Abdominal: Positive for: Bowel Sounds, Soft, Tenderness (mild suprapubic) Back: Positive for: Normal Inspection. Negative for: L CVA Tenderness, R CVA Tenderness Extremity: Positive for: Normal ROM Neurologic/Psych: Positive for: Alert, Oriented - Laboratory Results Result Diagrams: 05/31/17 13:10 05/31/17 13:10 - ECG O2 Sat by Pulse Oximetry: 97 - Progress ED Course And Treament: pt with elevated K+. pt to get EKG. pt with hx of elevated K+. Medical Decision Making Medical Decision Making: UA: shows UTI pt will be d/c on macrobid, but Urine C&S will be sent. Disposition - Clinical Impression Clinical Impression: Urinary tract infection - Patient ED Disposition Is Patient to be Admitted: No Counseled Patient/Family Regarding: Studies Performed, Diagnosis, Need For Followup, Rx Given - Disposition Disposition: Routine/Home Disposition Time: 15:29 Condition: STABLE Prescriptions: Nitrofurantoin Macrocrystals [Macrobid] 100 mg PO BID #14 cap Instructions: Urinary Tract Infection in Women (DC) Forms: [employer] ([place])
[2017-05-31 15:12] LABS: RBC URINE 5 /hpf (0-3); URINE BACTERIA MANY (<OCC); URINE BILIRUBIN NEGATIVE (NEGATIVE); URINE BLOOD NEGATIVE (NEGATIVE); URINE COLOR AMBER (YELLOW); URINE GLUCOSE (UA) 150 mg/dL (Normal); URINE KETONE NEGATIVE (NEGATIVE); URINE LEUKOCYTE ESTERASE MOD Leu/uL (Negative); URINE PROTEIN 30 mg/dL (NEGATIVE); WBC URINE 720 /hpf (0-5)
[2017-05-31 17:21] VITALS: BP 148/88; O2SAT 99
--- NOTE | 2017-06-04 18:40 | CARD ---
APPROVED REPORT EKG Measurement Heart [id number] <Conclusion> Normal sinus rhythm Normal ECG
== END 2017-05-31 17:21 | disposition home or self-care (01) ==
LOC: H.ER 12:05
DX: N39.0 Urinary tract infection, site not specified (principal); E87.5 Hyperkalemia

== ENCOUNTER 2017-06-03 13:40 | Inpatient (IN) | payer MEDICAID ==
[2017-06-03 13:40] VITALS: BMI 33.6
--- NOTE | 2017-06-03 14:48 | ED PDOC ---
HPI: Female Pain Time Seen by Provider: 06/03/17 13:58 Chief Complaint (Nursing): Female Genitourinary Chief Complaint (Provider): Female Genitourinary History Per: Patient History/Exam Limitations: no limitations Onset/Duration Of Symptoms: Persistent (x3 weeks) Current Symptoms Are (Timing): Still Present Additional Complaint(s): Jennifer Crouch is a 77 year old female accompanied by her daughter that presents to the ED with a chief complaint of a UTI that she has been experiencing for the past three weeks. Patient's daughter reports that three weeks ago, patient was diagnosed with a UTI and was started on Bactrim as per Dr. Oliver's nurse practitioner. Patient's urine culture then showed that she was Bactrim-resistant, which prompted her ED visit on 05/31/17. As per the urine culture obtained on 05/31/17, patient showed positive for klebsiella. Additionally , patient's daughter states that they have been changing the patient's diet much more frequently than usual, and that the patient has been complaining of lower back pain, but denies any abdominal pain, vomiting, diarrhea, or fever. Of Note: Patient's daughter was called yesterday, 06/02/17, and was asked to bring patient back to ED, but because the patient had a scheduled MRI of her lower back for today, they came today instead. Past Medical History Reviewed: Historical Data, Nursing Documentation, Vital Signs Vital Signs: Last Vital Signs Temp 96.8 F L 06/03/17 13:51 Pulse 76 06/03/17 14:03 Resp 18 06/03/17 14:03 BP 135/52 L 06/03/17 14:03 Pulse Ox 98 06/03/17 14:03 - Medical History PMH: Anemia, Anxiety, Arthritis, Asthma, Back Problems, Bronchitis, CAD, CHF, COPD, Depression, Diabetes, Gastritis, HTN, Hypercholesterolemia, Hyperlipidemia , Hypothyroidism, Peripheral Edema, Pneumonia Denies: HIV, Chronic Kidney Disease, Rheumatoid Arthritis - Surgical History Surgical History: CABG (x4), Cholecystectomy, Coronary Stent Denies: Pacemaker - Family History Family History: States: Unknown Family Hx - Home Medications Home Medications: Ambulatory Orders Medication Instructions Recorded Albuterol/Ipratropium [Duoneb 3 3 ml IH Q6H PRN 01/12/17 mg/0.5 mg (3 ml) UD] Aspirin [Ecotrin] 81 mg PO DAILY 01/12/17 Carvedilol [Coreg] 3.125 mg PO DAILY 01/12/17 Insulin Human (NPH)/Regular 25 unit SC DAILY 01/12/17 [Novolin 70/30 (70/30 units/ml) 10 ml] Levothyroxine [Synthroid] 100 mcg PO DAILY 01/12/17 Nitroglycerin [Nitrostat] 0.4 mg SL Q5MIN PRN 01/12/17 Ranolazine [Ranexa] 1,000 mg PO BID 01/12/17 Acetaminophen with Codeine 1 tab PO Q8H PRN 01/22/17 [Tylenol with Codeine #3 Tablet] Atorvastatin [Lipitor] 40 mg PO HS 02/01/17 Loratadine [Claritin] 10 mg PO DAILY 02/01/17 Furosemide [Lasix] 20 mg PO Q72H 03/17/17 Meclizine [Meclizine*] 25 mg PO Q6H PRN 04/06/17 ALPRAZolam [Xanax] 0.25 mg PO HS PRN #5 04/08/17 Sulfamethoxazole/Trimethoprim 1 tab PO BID #14 tab 05/31/17 [Bactrim DS 800 mg-160 mg] - Allergies Allergies/Adverse Reactions: Allergies Allergy/AdvReac Type Severity Reaction Status Date / Time kiwi Allergy Mild RASH Verified 01/12/17 16:51 morphine Allergy Mild RASH Verified 01/12/17 16:51 Penicillins Allergy Mild RASH Verified 01/12/17 16:51 pineapple Allergy Mild RASH Verified 01/12/17 16:51 watermelon Allergy Mild RASH Verified 01/12/17 16:51 Review of Systems Constitutional: Negative for: Fever Gastrointestinal: Negative for: Vomiting, Abdominal Pain, Diarrhea Genitourinary Female: Positive for: Other (UTI) Physical Exam - Reviewed Nursing Documentation Reviewed: Yes Vital Signs Reviewed: Yes - Physical Exam Appears: Positive for: Non-toxic, No Acute Distress Head Exam: Positive for: ATRAUMATIC, NORMOCEPHALIC Skin: Positive for: Normal Color, Warm Neck: Positive for: Normal, Painless ROM Cardiovascular/Chest: Positive for: Regular Rate, Rhythm. Negative for: Murmur Respiratory: Positive for: Normal Breath Sounds. Negative for: Wheezing Gastrointestinal/Abdominal: Positive for: Normal Exam, Soft. Negative for: Tenderness Back: Positive for: Normal Inspection. Negative for: L CVA Tenderness, R CVA Tenderness Extremity: Positive for: Normal ROM. Negative for: Tenderness Neurologic/Psych: Positive for: Alert, ruffler II-XII, Oriented. Negative for: Motor/Sensory Deficits - Laboratory Results Result Diagrams: 06/03/17 14:50 06/03/17 14:50 - ECG O2 Sat by Pulse Oximetry: 98 (RA) Pulse Ox Interpretation: Normal Medical Decision Making Medical Decision Making: Impression: UTI Plan: * Chest X-Ray * CT A/P without PO or IV contrast * EKG * CMP * CBC * VBG * Blood Culture * Urine Culture * Urinalysis * Reevaluation 14:20 - Discussed case with Dr. Oliver, stated that patient required admission. He requested Dr. Reilly for Infectious Disease. - Case discussed with Dr. Reilly and reviewed urine C&S report, requested that patient we given Gentamicin 60 mg IV Q12 and that cultures be obtained prior to patient receiving antibiotics. - Dr. Matthews discussed case with Infection Control Jeremie Saldana, patient placed in contact isolation. -Blood culture and urine specimen (straight cath specimen) obtained prior to administration of antibiotics. Scribe Attestation: Documented by Neema Buenrostro, acting as a scribe for Hugh Keita PA-C. Provider Scribe Attestation: All medical record entries made by the Scribe were at my direction and personally dictated by me. I have reviewed the chart and agree that the record accurately reflects my personal performance of the history, physical exam, medical decision making, and the department course for this patient. I have also personally directed, reviewed, and agree with the discharge instructions and disposition. Disposition - Clinical Impression Clinical Impression: UTI (urinary tract infection) - Patient ED Disposition Is Patient to be Admitted: Yes Discussed With DrMelinda: Sridhar Oliver (also dicussed with Dr. Reilly, Dr. Matthews, and Jeremie aSldana Infection Control) - Disposition Disposition Time: 14:31 Condition: STABLE
--- NOTE | 2017-06-03 14:51 | CT ---
PROCEDURE: CT Abdomen and Pelvis without intravenous contrast HISTORY: back pain, UTI COMPARISON: Abdomen pelvis CT examination 01/12/2017. TECHNIQUE: Helical CT of the abdomen pelvis was performed without intravenous contrast as requested per oral contrast also administered. Contrast Dose: None Radiation dose: Total exam DLP = 967 mGy-cm. This CT exam was performed using one or more of the following dose reduction techniques: Automated exposure control, adjustment of the mA and/or kV according to patient size, and/or use of iterative reconstruction technique. FINDINGS: LOWER THORAX: Prior resolution of prior bilateral basilar dependent atelectasis. LIVER: Unremarkable. No gross lesion or ductal dilatation. GALLBLADDER AND BILE DUCTS: Prior cholecystectomy apparent once again. PANCREAS: Unremarkable. No gross lesion or ductal dilatation. SPLEEN: Unremarkable. ADRENALS: Unremarkable. No mass. KIDNEYS AND URETERS: Unremarkable. No hydronephrosis. No solid mass. VASCULATURE: Unremarkable. No aortic aneurysm. BOWEL: The stomach appears mildly distended with retained food. There is relatively prominent AP material scattered throughout the large bowel which is partially compressed the right hemicolon. Consider possible limited constipation. Small bowel loops are grossly nonfocal. Lack of oral contrast limits evaluation the gastrointestinal tract. APPENDIX: It is not identified however there is no definite CT evidence to suggest appendicitis at this time. PERITONEUM: Unremarkable. No free fluid. No free air. LYMPH NODES: Unremarkable. No enlarged lymph nodes. BLADDER: Bladder is poorly distended. The rectal wall appears somewhat thickened, potentially out of the context relatively to the lack of distention of the urinary bladder. Cystitis is not completely excluded as resolved. REPRODUCTIVE: Unremarkable. BONES: Sternotomy wires are incidentally captured the inferior visualized sternum and mild multilevel lumbar spondylosis appreciated. OTHER FINDINGS: Tiny umbilical hernia is again seen containing fat. IMPRESSION: 1. No radiodense urolithiasis or obstructive uropathy bilaterally. Cystitis is not excluded at the urinary bladder however the urine bladder is not fully distended either. Please see discussion above. 2. Prior cholecystectomy. 3. Possible constipation. 4. Prior hysterectomy.
[2017-06-03] MEDS ORDERED: Gentamicin 60mg/50ml NS 60 MG/50 ML BAG IVPB SCH ×2 (15:03→21:00)
[2017-06-03 15:05] LABS: BASO # 0.1 K/uL (0.0-0.2); BASO % 0.8 % (0.0-2.0); EOS # 0.4 K/uL (0.0-0.7); EOS % 3.9 % (0.0-4.0); HEMATOCRIT 35.2 % (34.0-47.0); LYMPH # 2.6 K/uL (1.0-4.3); LYMPH % 28.3 % (20.0-40.0); MEAN CELL VOLUME 93.7 fl (81.0-99.0); MEAN PLATELET VOLUME 8.4 fl (7.2-11.7); MONO # 0.7 K/uL (0.0-0.8); MONO % 7.2 % (0.0-10.0); NEUT # 5.5 K/uL (1.8-7.0); NEUT % 59.8 % (50.0-75.0); RED CELL DISTRIBUTION WIDTH 17.2 % (11.5-14.5); WHITE BLOOD COUNT 9.2 K/uL (4.8-10.8)
[2017-06-03 15:10] LABS: VENOUS BLOOD GAS BASE EXCESS 1.1 mmol/L (0.0-2.0); VENOUS BLOOD GAS PCO2 55 mmHg (40-60); VENOUS BLOOD PH 7.32 (7.32-7.43)
[2017-06-03 15:16] LABS: ALB/GLOB RATIO 1.1 (1.0-2.1); BILIRUBIN,TOTAL 0.5 mg/dl (0.2-1.3); CALCIUM 9.1 mg/dL (8.4-10.2); TOTAL PROTEIN 7.1 G/DL (6.3-8.2)
[2017-06-03 15:22] LABS: RBC URINE 22 /hpf (0-3); URINE BACTERIA MANY (<OCC); URINE BILIRUBIN NEGATIVE (NEGATIVE); URINE BLOOD NEGATIVE (NEGATIVE); URINE COLOR YELLOW (YELLOW); URINE GLUCOSE (UA) NEG (Normal); URINE KETONE NEGATIVE (NEGATIVE); URINE LEUKOCYTE ESTERASE MOD Leu/uL (Negative); URINE PROTEIN 100 mg/dL (NEGATIVE); WBC URINE 4648 /hpf (0-5)
[2017-06-03 15:28] LABS: POTASSIUM 5.5 MMOL/L (3.6-5.0)
--- NOTE | 2017-06-03 15:30 | RAD ---
HISTORY: clearance COMPARISON: 04/06/2017. FINDINGS: LUNGS: No active pulmonary disease. PLEURA: No significant pleural effusion identified, no pneumothorax apparent. CARDIOVASCULAR: No radiographic findings to suggest acute or significant cardiovascular disease. OSSEOUS STRUCTURES: No significant abnormalities. VISUALIZED UPPER ABDOMEN: Normal. OTHER FINDINGS: None. IMPRESSION: No active disease. No significant interval change compared to the prior examination(s).
[2017-06-03] MEDS: Sodium Chloride 0.9% 250 ML IV SCH ×2 (15:45→21:00)
--- NOTE | 2017-06-03 17:37 | CP.PCM.CON ---
History of Present Illness - History of Present Illness History of Present Illness: 77 year old female accompanied by her daughter that presents to the ED with a chief complaint of a UTI that she has been experiencing for the past three weeks. Patient's daughter reports that three weeks ago, patient was diagnosed with a UTI and was started on Bactrim as per Dr. Oliver's nurse practitioner. Patient's urine culture then showed that she was Bactrim-resistant, which prompted her ED visit on 05/31/17. As per the urine culture obtained on 05/31/17, patient showed positive for klebsiella. Additionally, patient's daughter states that they have been changing the patient's diet much more frequently than usual , and that the patient has been complaining of lower back pain, but denies any abdominal pain, vomiting, diarrhea, or fever. Of Note: Patient's daughter was called yesterday, 06/02/17, and was asked to bring patient back to ED, but because the patient had a scheduled MRI of her lower back for today, they came today instead. ID CONSULTED FOR ANTIBIOTIC MANAGEMENT OF ESBL + ECOLI IN A PCN ALLERGIC PT WITH CKD AND RECURRENT UTI - Medical History PMH: Anemia, Anxiety, Arthritis, Asthma, Back Problems, Bronchitis, CAD, CHF, COPD, Depression, Diabetes, Gastritis, HTN, Hypercholesterolemia, Hyperlipidemia , Hypothyroidism, Peripheral Edema, Pneumonia Denies: HIV, Chronic Kidney Disease, Rheumatoid Arthritis - Surgical History Surgical History: CABG (x4), Cholecystectomy, Coronary Stent Denies: Pacemaker Review of Systems - Constitutional Constitutional: As Per HPI - EENT Eyes: absent: As Per HPI, Blind Spots, Blurred Vision, Change in Vision, Decreased Night Vision, Diplopia, Discharge, Dry Eye, Exophthalmos, Floaters, Irritation, Itchy Eyes, Loss of Peripheral Vision, Pain, Photophobia, Requires Corrective Lenses, Sees Flashes, Spots in Vision, Tunnel Vision, Other Visual Disturbances, Loss of Vision, Other Ears: absent: As Per HPI, Decreased Hearing, Ear Discharge, Ear Pain, Tinnitus, Abnormal Hearing, Disequilibrium, Dizziness, Other Nose/Mouth/Throat: absent: As Per HPI, Epistaxis, Nasal Congestion, Nasal Discharge, Nasal Obstruction, Nasal Trauma, Nose Pain, Post Nasal Drip, Sinus Pain, Sinus Pressure, Bleeding Gums, Change in Voice, Dental Pain, Dry Mouth, Dysphagia, Halitosis, Hoarsness, Lip Swelling, Mouth Lesions, Mouth Pain, Odynophagia, Sore Throat, Throat Swelling, Tongue Swelling, Facial Pain, Neck Pain, Neck Mass, Other - Breasts Breasts: absent: As Per HPI, Change in Shape, Mass, Pain, Nipple Discharge, Nipple Inversion, Skin Changes, Swelling, Other - Cardiovascular Cardiovascular: absent: As Per HPI, Acrocyanosis, Chest Pain, Chest Pain at Rest , Chest Pain with Activity, Claudication, Diaphoresis, Dyspnea, Dyspnea on Exertion, Edema, Irregular Heart Rhythm, Pain Radiating to Arm/Neck/Jaw, Leg Edema, Leg Ulcers, Lightheadedness, Orthopnea, Palpitations, Paroxysmal Nocturnal Dyspnea, Pedal Edema, Radiating Pain, Rapid Heart Rate, Slow Heart Rate, Syncope, Other - Respiratory Respiratory: absent: As Per HPI, Cough, Dyspnea, Hemoptysis, Dyspnea on Exertion , Wheezing, Snoring, Stridor, Pain on Inspiration, Chest Congestion, Excessive Mucous Production, Change in Mucous Color, Pain with Coughing, Other - Gastrointestinal Gastrointestinal: absent: As Per HPI, Abdominal Pain, Belching, Bloating, Change in Bowel Habits, Change in Stool Character, Coffee Ground Emesis, Constipation, Cramping, Diarrhea, Dyspepsia, Dysphagia, Early Satiety, Excessive Flatus, Fecal Incontinence, Heartburn, Hematemesis, Hematochezia, Loose Stools, Melena, Nausea, Odynophagia, Temesmus, Vomiting, Other - Genitourinary Genitourinary: As Per HPI - Reproductive: Female Reproductive:Female: absent: As Per HPI, Amenorrhea, Amenorrhea/ Control, Currently Menstual, Cycle <21 Days, Cycle >35 Days, Cycle Variable, Menses 1-7 Days, Menses >/= 8 Days, Menses Variable, Cycle > 4 Weeks Between, No Menses for 6 Months, Heavy Menses, Light Menses, Normal Menses, Spotting Between Cycles , S/P Hysterectomy, Menopausal, Post Menopausal, Premenarche, Abnormal Vaginal Bleeding, Dysmenorrhea, Dyspareunia, Genital Lesions, Genital Pruritis, Pelvic Pain, Prolapse Symptoms, Sexual Dysfunction, Vaginal Discharge, Vaginal Dryness , Vaginal Odor, Vaginal Pruritis, Other - Menstruation Menstruation: absent: As Per HPI, Amenorrhea, Amenorrhea/ Control, Currently Menstual, Cycle <21 Days, Cycle >35 Days, Cycle Variable, Menses 1-7 Days, Menses >/= 8 Days, Menses Variable, Cycle > 4 Weeks Between, No Menses for 6 Months, Heavy Menses, Light Menses, Normal Menses, Spotting Between Cycles , S/P Hysterectomy, Menopausal, Post Menopausal, Premenarche, Abnormal Vaginal Bleeding, Dysmenorrhea, Other - Musculoskeletal Musculoskeletal: absent: As Per HPI, Abnormal Gait, Arthralgias, Atrophy, Back Pain, Deformity, Joint Swelling, Limited Range of Motion, Loss of Height, Muscle Cramps, Muscle Weakness, Myalgias, Neck Pain, Numbness, Radiating Pain into Limb, Stiffness, Tingling, Other - Integumentary Integumentary: absent: As Per HPI, Acne, Alopecia, Bleeding Lesions, Change in Hair, Change in Nails, Change in Pigmentation, Changing Lesions, Dry Skin, Erythema, Furuncle, Hirsutism, Lesions, New Lesions, Non-Healing Lesions, Photosensitivity, Pruritus, Rash, Skin Pain, Skin Ulcer, Sores, Striae, Swelling , Unusual Bruising, Wounds, Jaundice, Other - Neurological Neurological: absent: As Per HPI, Abnormal Gait, Abnormal Hearing, Abnormal Movements, Abnormal Speech, Behavioral Changes, Burning Sensations, Confusion, Convulsions, Disequilibrium, Dizziness, Numbness, Focal Weakness, Frequent Falls , Headaches, Lack of Coordination, Loss of Vision, Memory Loss, Paresthesias, Radicular Pain, Restless Legs, Sensory Deficit, Syncope, Tingling, Tremor, Vertigo, Weakness, Other Visual Disturbances, Other - Psychiatric Psychiatric: absent: As Per HPI, Abnormal Sleep Pattern, Anhedonia, Anxiety, Auditory Hallucinations, Behavioral Changes, Change in Appetite, Change in Libido, Confusion, Depression, Difficulty Concentrating, Hallucinations, Homicidal Ideation, Hopelessness, Irritability, Memory Loss, Mood Swings, Panic Attacks, Paranoia, Suicidal Ideation, Visual Hallucinations, Tactile Hallucinations, Other - Endocrine Endocrine: absent: As Per HPI, Change in Body Appearance, Change in Libido, Cold Intolorance, Deepening of Voice, Excessive Sweating, Fatigue, Flushing, Heat Intolorance, Increase in Ring/Shoe/Hat Size, Palpitations, Polydipsia, Polyphagia, Polyuria, Other - Hematologic/Lymphatic Hematologic: absent: As Per HPI, Easy Bleeding, Easy Bruising, Lymphadenopathy, Other Past Patient History - Infectious Disease Hx of Infectious Diseases: None - Past Medical History & Family History Past Medical History?: Yes - Past Social History Smoking Status: Never Smoked - CARDIAC Hx Cardiac Disorders: Yes (htn,hld,cabgx4, cad,chf) - PULMONARY Hx Respiratory Disorders: Yes (bronchitis,PNA) - NEUROLOGICAL Hx Neurological Disorder: No - HEENT Hx HEENT Problems: No - RENAL Hx Chronic Kidney Disease: No - ENDOCRINE/METABOLIC Hx Endocrine Disorders: Yes (dm,hypothyroid) - HEMATOLOGICAL/ONCOLOGICAL Hx Blood Disorders: Yes (anemia) - INTEGUMENTARY Hx Dermatological Problems: No - MUSCULOSKELETAL/RHEUMATOLOGICAL Hx Musculoskeletal Disorders: Yes (arthritis,backprob) - GASTROINTESTINAL Hx Gastritis: Yes - GENITOURINARY/GYNECOLOGICAL Hx Genitourinary Disorders: No - PSYCHIATRIC Hx Psychophysiologic Disorder: Yes (anxiety) - SURGICAL HISTORY Hx Cholecystectomy: Yes Hx Coronary Artery Bypass Graft: Yes (x4) Hx Coronary Stent: Yes - ANESTHESIA Hx Anesthesia: Yes Hx Anesthesia Reactions: No Hx Malignant Hyperthermia: No Meds Allergies/Adverse Reactions: Allergies Allergy/AdvReac Type Severity Reaction Status Date / Time kiwi Allergy Mild RASH Verified 01/12/17 16:51 morphine Allergy Mild RASH Verified 01/12/17 16:51 Penicillins Allergy Mild RASH Verified 01/12/17 16:51 pineapple Allergy Mild RASH Verified 01/12/17 16:51 watermelon Allergy Mild RASH Verified 01/12/17 16:51 - Medications Medications: Current Medications Gentamicin Sulfate/Sodium Chloride (Gentamicin 60mg/50ml Ns) 60 mg in 50 mls @ 50 mls/hr IVPB Q12 [facility] Last Admin: 06/03/17 15:05 Dose: 50 mls/hr Sodium Chloride (Sodium Chloride 0.9%) 250 mls @ 125 mls/hr IV .Q2H EVA Stop: 06/04/17 15:36 Last Admin: 06/03/17 15:45 Dose: 125 mls/hr Physical Exam - Constitutional Appears: Non-toxic, Chronically Ill - Head Exam Head Exam: NORMOCEPHALIC - Eye Exam Eye Exam: PERRL. absent: Scleral icterus - ENT Exam ENT Exam: Mucous Membranes Dry, Normal External Ear Exam - Neck Exam Neck exam: Negative for: Lymphadenopathy - Respiratory Exam Respiratory Exam: Decreased Breath Sounds - Cardiovascular Exam Cardiovascular Exam: REGULAR RHYTHM - GI/Abdominal Exam GI & Abdominal Exam: Diminished Bowel Sounds - Rectal Exam Rectal Exam: Deferred - Exam Exam: NORMAL INSPECTION - Extremities Exam Extremities exam: Positive for: pedal pulses present. Negative for: calf tenderness, pedal edema, tenderness - Back Exam Back exam: absent: CVA tenderness (L), CVA tenderness (R) - Neurological Exam Neurological exam: Alert, CN II-XII Intact, Oriented x3, Reflexes Normal - Psychiatric Exam Psychiatric exam: Normal Mood - Skin Skin Exam: Dry Results - Vital Signs Recent Vital Signs: Last Vital Signs Temp 97.8 F 06/03/17 17:18 Pulse 74 06/03/17 17:18 Resp 20 06/03/17 17:18 BP 138/78 06/03/17 17:18 Pulse Ox 96 06/03/17 17:18 - Labs Result Diagrams: 06/03/17 14:50 06/03/17 14:50 Labs: Laboratory Results - last 24 hr 06/03/17 06/03/17 06/03/17 14:50 14:50 14:55 WBC 9.2 RBC 3.76 L Hgb 11.6 L Hct 35.2 MCV 93.7 MCH 31.0 MCHC 33.0 RDW 17.2 H Plt Count 176 MPV 8.4 Neut % (Auto) 59.8 Lymph % (Auto) 28.3 [place] % (Auto) 7.2 Eos % (Auto) 3.9 Baso % (Auto) 0.8 Neut # 5.5 Lymph # 2.6 [place] # 0.7 Eos # 0.4 Baso # 0.1 pO2 VBG pH VBG pCO2 VBG HCO3 VBG Total CO2 VBG O2 Sat (Calc) VBG Base Excess VBG Potassium Glucose Lactate FiO2 Sodium 136 Potassium 5.5 H Chloride 104 Carbon Dioxide 22 Anion Gap 16 BUN 37 H Creatinine 1.6 H Est GFR ( Amer) 38 Est GFR (Non-Af Amer) 31 POC Glucose (mg/dL) Random Glucose 214 H Calcium 9.1 Total Bilirubin 0.5 AST 25 ALT 33 Alkaline Phosphatase 122 Total Protein 7.1 Albumin 3.7 Globulin 3.5 Albumin/Globulin Ratio 1.1 Venous Blood Potassium Urine Color Yellow Urine Clarity Turbid Urine pH 5.0 Ur Specific [place] 1.016 Urine Protein 100 Urine Glucose (UA) Neg Urine Ketones Negative Urine Blood Negative Urine Nitrate Negative Urine Bilirubin Negative Urine Urobilinogen 2.0 H Ur Leukocyte Esterase Mod Urine RBC (Auto) 22 H Urine Microscopic WBC 4648 H Ur Squamous Epith Cells 3 Amorphous Sediment Rare H Urine Bacteria Many H 06/03/17 06/03/17 15:00 17:28 WBC RBC Hgb Hct MCV MCH MCHC RDW Plt Count MPV Neut % (Auto) Lymph % (Auto) [place] % (Auto) Eos % (Auto) Baso % (Auto) Neut # Lymph # [place] # Eos # Baso # pO2 34 VBG pH 7.32 VBG pCO2 55 VBG HCO3 24.8 VBG Total CO2 30.0 H VBG O2 Sat (Calc) 68.4 H VBG Base Excess 1.1 VBG Potassium 5.3 H Glucose 229 H Lactate 1.4 FiO2 21.0 Sodium 134.0 Potassium Chloride 103.0 Carbon Dioxide Anion Gap BUN Creatinine Est GFR ( Amer) Est GFR (Non-Af Amer) POC Glucose (mg/dL) 219 H Random Glucose Calcium Total Bilirubin AST ALT Alkaline Phosphatase Total Protein Albumin Globulin Albumin/Globulin Ratio Venous Blood Potassium 5.3 H Urine Color Urine Clarity Urine pH Ur Specific [place] Urine Protein Urine Glucose (UA) Urine Ketones Urine Blood Urine Nitrate Urine Bilirubin Urine Urobilinogen Ur Leukocyte Esterase Urine RBC (Auto) Urine Microscopic WBC Ur Squamous Epith Cells Amorphous Sediment Urine Bacteria Assessment & Plan (1) UTI (urinary tract infection) Status: Acute (2) Acute on chronic systolic congestive heart failure Status: Acute Priority: High (3) CHF (congestive heart failure) Status: Acute (4) CKD (chronic kidney disease) Status: Acute (5) Chr obstructive pulmonary disease w/ acute lower respiratory infxn Status: Acute (6) Chronic chest pain Status: Acute (7) Chronic urinary tract infection Status: Acute (8) DVT prophylaxis Status: Acute (9) Diabetes mellitus with hyperglycemia Status: Acute Priority: High (10) Fever Status: Acute (11) Hx of CABG Status: Acute - Assessment and Plan (Free Text) Assessment: CONT IV GENTA REPEAT CULTURES CONSIDER ICU EVAL FOR MERREM ADMINISTRATION AND OR DESENSITIZATION IF INFECTION DOESNT CLEAR Plan: CONSIDER EVAL / IMAGING
[2017-06-03] MEDS: Gentamicin 80mg/50ml NS 80 MG/50 ML BAG IVPB SCH (17:57)
[2017-06-03] MEDS: Lactobacillus Acidophilus 500 MU Cap PO SCH (18:05)
[2017-06-03] MEDS ORDERED: Acetaminophen-Codeine 300/30 mg Tab PO PRN (20:13)
[2017-06-03] MEDS ORDERED: Albuterol-Ipratrop 3 mg / 0.5 (3 ml) UD IH PRN (20:13)
[2017-06-04] MEDS: Levothyroxine 100 MCG TAB PO SCH (06:31)
[2017-06-04 07:10] LABS: MEAN CELL VOLUME 93.6 fl (81.0-99.0); MEAN CORPUSCULAR HEMOGLOBIN 30.5 pg (27.0-31.0); MEAN CORPUSCULAR HGB CONC 32.6 g/dL (33.0-37.0); RED CELL DISTRIBUTION WIDTH 16.5 % (11.5-14.5); WHITE BLOOD COUNT 7.1 K/uL (4.8-10.8)
[2017-06-04 07:14] LABS: BILIRUBIN,TOTAL 0.4 mg/dl (0.2-1.3); CALCIUM 8.9 mg/dL (8.4-10.2); TOTAL PROTEIN 6.7 G/DL (6.3-8.2)
[2017-06-04 07:30] LABS: POTASSIUM 5.3 MMOL/L (3.6-5.0)
[2017-06-04 07:43] LABS: THYROID STIMULATING HORMONE 2.82 mIU/ML (0.46-4.68)
[2017-06-04] MEDS: Insulin Lispro Mix 75/25 100 units/ml (HumaLog) 10ml SC SCH (09:13)
[2017-06-04] MEDS: Patient's Own Med (Ranolazine [Ranexa] 1,000 MG) PO SCH ×2 (09:16→16:54)
[2017-06-04] MEDS: Lactobacillus Acidophilus 500 MU Cap PO SCH ×2 (09:30→16:51)
--- NOTE | 2017-06-04 11:24 | CARD ---
APPROVED REPORT EKG Measurement Heart [id number] <Conclusion> Normal sinus rhythm Possible Left atrial enlargement Borderline ECG
--- NOTE | 2017-06-04 14:12 | CP.PCM.PN ---
Subjective - Date & Time of Evaluation Date of Evaluation: 06/04/17 Time of Evaluation: 08:00 - Subjective Subjective: ID CONSULTED FOR ANTIBIOTIC MANAGEMENT OF ESBL + ECOLI IN A PCN ALLERGIC PT WITH CKD AND RECURRENT UTI Objective - Vital Signs/Intake and Output Vital Signs (last 24 hours): Temp Pulse Resp BP Pulse Ox 97.5 F L 65 18 148/76 100 06/04/17 07:37 06/04/17 09:12 06/04/17 07:37 06/04/17 09:12 06/04/17 07:37 - Medications Medications: Current Medications Acetaminophen/Codeine Phosphate (Tylenol/Codeine 300 Mg/30 Mg) 1 tab PO Q8H PRN PRN Reason: Pain, severe (8-10) Albuterol/Ipratropium (Duoneb 3 Mg/0.5 Mg (3 Ml) Ud) 3 ml IH Q6H PRN PRN Reason: Shortness of Breath Alprazolam (Xanax) 0.25 mg PO HS PRN PRN Reason: Insomnia Stop: 06/10/17 20:15 Last Admin: 06/03/17 21:40 Dose: 0.25 mg Ascorbic Acid (Vitamin C 500 Mg Tab) 1,000 mg PO BID [facility] Last Admin: 06/04/17 09:16 Dose: 1,000 mg Aspirin (Ecotrin) 81 mg PO DAILY [facility] Last Admin: 06/04/17 09:12 Dose: 81 mg Atorvastatin Calcium (Lipitor) 40 mg PO HS [facility] Last Admin: 06/03/17 22:05 Dose: Not Given Carvedilol (Coreg) 3.125 mg PO DAILY [facility] Last Admin: 06/04/17 09:12 Dose: 3.125 mg Docusate Sodium (Colace) 200 mg PO DAILY [facility] Last Admin: 06/04/17 09:11 Dose: 200 mg Furosemide (Lasix) 20 mg PO Q72H [facility] Heparin Sodium (Porcine) (Heparin) 5,000 units SC Q12 [facility] PRN Reason: Protocol Last Admin: 06/04/17 09:13 Dose: 5,000 units Home Med (Ranolazine [Ranexa]) 1,000 mg PO BID [facility] Last Admin: 06/04/17 09:16 Dose: 1,000 mg Gentamicin Sulfate/Sodium Chloride (Gentamicin 80mg/50ml Ns) 80 mg in 50 mls @ 50 mls/hr IVPB Q24H [facility] Last Admin: 06/03/17 17:57 Dose: Not Given Insulin Lispro Protam/Lispro Human (Humalog Mix 75/25) 25 units SC DAILY [facility] Last Admin: 06/04/17 09:13 Dose: 25 units Lactobacillus Acidophilus (Bacid Acidophilus) 1 cap PO BID [facility] Last Admin: 06/04/17 09:30 Dose: 1 cap Lactulose (Enulose) 20 gm PO DAILY [facility] Last Admin: 06/04/17 09:12 Dose: 20 gm Levothyroxine Sodium (Synthroid) 100 mcg PO DAILY@0630 [facility] Last Admin: 06/04/17 06:31 Dose: 100 mcg Loratadine (Claritin) 10 mg PO DAILY [facility] Last Admin: 06/04/17 09:11 Dose: 10 mg Meclizine HCl (Antivert) 25 mg PO Q6H PRN PRN Reason: Dizziness Nitroglycerin (Nitrostat Sl Tab) 0.4 mg SL Q5MIN PRN PRN Reason: chest pain Nystatin (Nystop Topical Powder) 1 applic TOP TID [facility] Last Admin: 06/04/17 09:15 Dose: 1 applic - Labs Labs: 06/04/17 06:30 06/04/17 07:25 - Constitutional Appears: Non-toxic, Chronically Ill - Head Exam Head Exam: NORMOCEPHALIC - Eye Exam Eye Exam: PERRL - ENT Exam ENT Exam: Mucous Membranes Dry - Neck Exam Neck Exam: absent: Lymphadenopathy - Respiratory Exam Respiratory Exam: Decreased Breath Sounds - Cardiovascular Exam Cardiovascular Exam: REGULAR RHYTHM - GI/Abdominal Exam GI & Abdominal Exam: Distended, Soft - Rectal Exam Rectal Exam: Deferred - Exam Exam: NORMAL INSPECTION - Extremities Exam Extremities Exam: absent: Calf Tenderness, Pedal Edema - Back Exam Back Exam: absent: CVA tenderness (L), CVA tenderness (R) Assessment and Plan (1) UTI (urinary tract infection) Status: Acute (2) Acute on chronic systolic congestive heart failure Status: Acute (3) CHF (congestive heart failure) Status: Acute (4) CKD (chronic kidney disease) Status: Acute (5) Chr obstructive pulmonary disease w/ acute lower respiratory infxn Status: Acute (6) Chronic chest pain Status: Acute (7) Chronic urinary tract infection Status: Acute (8) DVT prophylaxis Status: Acute (9) Diabetes mellitus with hyperglycemia Status: Acute (10) Fever Status: Acute (11) Hx of CABG Status: Acute - Assessment and Plan (Free Text) Assessment: ID CONSULTED FOR ANTIBIOTIC MANAGEMENT OF ESBL + ECOLI IN A PCN ALLERGIC PT WITH CKD AND RECURRENT UTI cont iv antibiotics gu eval recommended
[2017-06-04] MEDS: Gentamicin 80mg/50ml NS 80 MG/50 ML BAG IVPB SCH (16:52)
--- NOTE | 2017-06-04 18:06 | CP.PCM.HP ---
History of Present Illness - History of Present Illness History of Present Illness: CC: UTI 77 y/o F, brought to ER [facility] on 06/03/17 to be admitted for UTI treatment after be found on 06/02/17 with + ESBL Pt with multiple chronic medical condition and with Hx of UTI 3 weeks PEDORTHIST, Tx with Bactrim with no improvement, infection symptoms continue that prompted Pt to ED visit for evaluation on 05/31/17, Pt was Dx. with UTI with resistance to Bactrim, Pt was discharge same day on [facility] and had U C-S done. 2 days after , on 06/02/17, Pt was called to return to hospital to receive IV abx after lab result of U C-S result was positive Klebsiella Pneumoniae. Worsening symptoms: Chronic low back pain, moderate insensitive 4:10, weakness. Aggravating factor: Non ambulatory. Pt denied: Fever, chills, abdominal pain, n/v/d, CP, palpitation, SOB, cough, syncope, sick contact, recent travel. PMHx: Hx of UTI, HTN, CHF, CAD, Hx CABG, Coronary Stent, Anemia, COPD, Asthma, L TMA, Hyperglycemia, Hypothyroidism, CKD, DMII with hyperglycemia, Gastritis, Chronic Lumbago with Radiculopathy, Hx Hysterectomy. CXR shows: No active disease. EKG: Normal sinus rhythm. Possible L atrial enlargement. Abd/Pelv CT shows: Cystitis. Present on Admission - Present on Admission Any Indicators Present on Admission: Yes History of Uncontrolled Diabetes: Yes Review of Systems - Constitutional Constitutional: Weakness - EENT Eyes: Requires Corrective Lenses Ears: Decreased Hearing (R ear) Nose/Mouth/Throat: Other (negative) - Cardiovascular Cardiovascular: Other (negative) - Respiratory Respiratory: Other (negative) - Gastrointestinal Gastrointestinal: Dysphagia - Genitourinary Genitourinary: Dysuria, Urinary Incontinence - Musculoskeletal Musculoskeletal: Arthralgias, Back Pain, Muscle Weakness - Integumentary Integumentary: Other (negative) - Neurological Neurological: Other (negative) - Psychiatric Psychiatric: Anxiety - Endocrine Endocrine: Other (negative) - Hematologic/Lymphatic Hematologic: Other (negative) Past Patient History - Infectious Disease Hx of Infectious Diseases: None - Past Medical History & Family History Past Medical History?: Yes Pertinent Family History: Unknown - Past Social History Smoking Status: Never Smoked Alcohol: None Drugs: Denies Home Situation {Lives}: With Family - CARDIAC Hx Cardiac Disorders: Yes Hx Congestive Heart Failure: Yes Hx Hypercholesterolemia: Yes Hx Hypertension: Yes Hx Pacemaker: No Hx Peripheral Edema: Yes - PULMONARY Hx Respiratory Disorders: Yes Hx Asthma: Yes Hx Bronchitis: Yes Hx Chronic Obstructive Pulmonary Disease (COPD): Yes Hx Pneumonia: Yes - NEUROLOGICAL Hx Neurological Disorder: No - HEENT Hx HEENT Problems: Yes (wear eyeglasses) Other/Comment: Hard of hear R ear. - RENAL Hx Chronic Kidney Disease: No - ENDOCRINE/METABOLIC Hx Endocrine Disorders: Yes Hx Hypothyroidism: Yes - HEMATOLOGICAL/ONCOLOGICAL Hx Blood Disorders: Yes Hx Anemia: Yes Hx Human Immunodeficiency Virus (HIV): No - INTEGUMENTARY Hx Dermatological Problems: No - MUSCULOSKELETAL/RHEUMATOLOGICAL Hx Musculoskeletal Disorders: Yes Hx Arthritis: Yes Hx Back Pain: Yes Hx Falls: Yes Hx Rheumatoid Arthritis: No - GASTROINTESTINAL Hx Gastrointestinal Disorders: Yes Hx Gastritis: Yes - GENITOURINARY/GYNECOLOGICAL Hx Genitourinary Disorders: Yes Hx Incontinence: Yes Hx Urinary Tract Infection: Yes - PSYCHIATRIC Hx Psychophysiologic Disorder: Yes Hx Anxiety: Yes Hx Depression: Yes - SURGICAL HISTORY Hx Surgeries: Yes Hx Cholecystectomy: Yes Hx Coronary Artery Bypass Graft: Yes (x4) Hx Coronary Stent: Yes - ANESTHESIA Hx Anesthesia: Yes Hx Anesthesia Reactions: No Hx Malignant Hyperthermia: No Meds Home Medications: Home Medication List Medication Instructions Recorded Confirmed Type Ascorbic Acid [Vitamin C 500 mg 1,000 mg PO BID tab 06/07/17 Rx Tab] Docusate [Colace] 200 mg PO DAILY cap 06/07/17 Rx Gentamicin 80 mg in 0.9% NS 80 mg IVPB QOTHERDAY #4 bag 06/07/17 Rx [Gentamicin IV 80 mg PREMIX] Lactobacillus Acidophilus [Bacid 1 cap PO BID cap 06/07/17 Rx Acidophilus] Lactulose [Enulose] 20 gm PO DAILY 06/07/17 Rx Nystatin [Nystop Topical Powder] 1 applic TOP TID bottle 06/07/17 Rx Allergies/Adverse Reactions: Allergies Allergy/AdvReac Type Severity Reaction Status Date / Time kiwi Allergy Mild RASH Verified 06/07/17 17:54 morphine Allergy Mild RASH Verified 06/07/17 17:54 Penicillins Allergy Mild RASH Verified 06/07/17 17:54 pineapple Allergy Mild RASH Verified 06/07/17 17:54 watermelon Allergy Mild RASH Verified 06/07/17 17:54 Physical Exam - Constitutional Appears: No Acute Distress, Chronically Ill - Head Exam Head Exam: NORMAL INSPECTION - Eye Exam Eye Exam: PERRL Additional comments: L eye blind - ENT Exam Additional comments: Hard of hear R ear - Neck Exam Neck exam: Positive for: Normal Inspection - Respiratory Exam Respiratory Exam: Decreased Breath Sounds (at bases) - Cardiovascular Exam Cardiovascular Exam: REGULAR RHYTHM - GI/Abdominal Exam GI & Abdominal Exam: Normal Bowel Sounds, Soft - Extremities Exam Additional comments: L TMA - Back Exam Back exam: NORMAL INSPECTION - Neurological Exam Neurological exam: Alert, Oriented x3 Additional comments: Forgetful at times, moves all extremities against gravity, generalized weakness. - Psychiatric Exam Psychiatric exam: Anxious - Skin Skin Exam: Warm Results - Vital Signs Recent Vital Signs: Last Vital Signs Temp 97 F L 06/04/17 16:39 Pulse 72 06/04/17 16:39 Resp 20 06/04/17 16:39 BP 151/73 H 06/04/17 16:39 Pulse Ox 96 06/04/17 16:39 reviewed Cheryl - Labs Result Diagrams: 06/06/17 05:30 06/06/17 04:00 Labs: Laboratory Results - last 24 hr 06/03/17 06/03/17 06/04/17 18:45 21:17 06:14 WBC RBC Hgb Hct MCV MCH MCHC RDW Plt Count Sodium Potassium Chloride Carbon Dioxide Anion Gap BUN Creatinine Est GFR ( Amer) Est GFR (Non-Af Amer) POC Glucose (mg/dL) 286 H 193 H Random Glucose Hemoglobin A1c Calcium Total Bilirubin AST ALT Alkaline Phosphatase Total Protein Albumin Globulin Albumin/Globulin Ratio Triglycerides Cholesterol LDL Cholesterol Direct HDL Cholesterol Procalcitonin 0.06 L Thyroxine (T4) TSH 3rd Generation 06/04/17 06/04/17 06/04/17 06:30 06:30 07:25 WBC 7.1 RBC 3.74 L Hgb 11.4 L Hct 35.0 MCV 93.6 MCH 30.5 MCHC 32.6 L RDW 16.5 H Plt Count 176 Sodium 138 Potassium 5.3 H Chloride 105 Carbon Dioxide 25 Anion Gap 13 BUN 32 H Creatinine 1.5 H Est GFR ( Amer) 41 Est GFR (Non-Af Amer) 33 POC Glucose (mg/dL) Random Glucose 203 H Hemoglobin A1c 8.1 H Calcium 8.9 Total Bilirubin 0.4 AST 21 ALT 31 Alkaline Phosphatase 129 H Total Protein 6.7 Albumin 3.4 L Globulin 3.3 Albumin/Globulin Ratio 1.0 Triglycerides 222 H D Cholesterol 177 LDL Cholesterol Direct 87 HDL Cholesterol 34 Procalcitonin Thyroxine (T4) 10.0 TSH 3rd Generation 2.82 06/04/17 06/04/17 10:50 16:19 WBC RBC Hgb Hct MCV MCH MCHC RDW Plt Count Sodium Potassium Chloride Carbon Dioxide Anion Gap BUN Creatinine Est GFR ( Amer) Est GFR (Non-Af Amer) POC Glucose (mg/dL) 226 H 139 H Random Glucose Hemoglobin A1c Calcium Total Bilirubin AST ALT Alkaline Phosphatase Total Protein Albumin Globulin Albumin/Globulin Ratio Triglycerides Cholesterol LDL Cholesterol Direct HDL Cholesterol Procalcitonin Thyroxine (T4) TSH 3rd Generation reviewed J.P. - EKG Data EKG comments: reviewed J.P. - Imaging and Cardiology Chest x-ray Status: Report reviewed by me (J.P.) CT scan - abdomen Status: Report reviewed by me (J.P.) CT scan - pelvis Status: Report reviewed by me (J.P.) Assessment & Plan (1) UTI (urinary tract infection) Status: Deleted Priority: High Comment: Klebsiella Pneumoniae. (2) Chronic urinary tract infection Status: Acute Priority: High (3) Diabetes mellitus with hyperglycemia Status: Chronic Priority: High (4) CKD (chronic kidney disease) Status: Chronic Priority: Medium (5) COPD (chronic obstructive pulmonary disease) Status: Chronic Priority: Medium (6) Chronic low back pain Status: Chronic Priority: Medium (7) Hx of CABG Status: Chronic Priority: Medium (8) Hypothyroidism Status: Chronic Priority: Medium (9) DVT prophylaxis Status: Chronic Priority: Medium (10) Anxiety Status: Chronic Priority: Medium - Assessment and Plan (Free Text) Plan: Continue Gentamicin and rest of Tx, ID consult appreciated, f/u Nephrology consult. - Date & Time Date: 06/04/17 Time: 11:00
[2017-06-05] MEDS: Levothyroxine 100 MCG TAB PO SCH (06:45)
[2017-06-05] MEDS: Patient's Own Med (Ranolazine [Ranexa] 1,000 MG) PO SCH ×2 (09:17→16:43)
[2017-06-05] MEDS: Lactobacillus Acidophilus 500 MU Cap PO SCH ×2 (09:30→16:41)
[2017-06-05] MEDS: Insulin Lispro Mix 75/25 100 units/ml (HumaLog) 10ml SC SCH (09:31)
--- NOTE | 2017-06-05 13:05 | CP.PCM.PN ---
Subjective - Date & Time of Evaluation Date of Evaluation: 06/05/17 Time of Evaluation: 11:40 - Subjective Subjective: F/U UTI Pt c/o of dysphagia, no c/o of abdominal pain or burning urine. Objective - Vital Signs/Intake and Output Vital Signs (last 24 hours): Temp Pulse Resp BP Pulse Ox 97.5 F L 65 20 136/60 99 06/05/17 07:45 06/05/17 09:22 06/05/17 07:45 06/05/17 09:22 06/05/17 07:45 - Medications Medications: Current Medications Acetaminophen/Codeine Phosphate (Tylenol/Codeine 300 Mg/30 Mg) 1 tab PO Q8H PRN PRN Reason: Pain, severe (8-10) Albuterol/Ipratropium (Duoneb 3 Mg/0.5 Mg (3 Ml) Ud) 3 ml IH Q6H PRN PRN Reason: Shortness of Breath Alprazolam (Xanax) 0.25 mg PO HS PRN PRN Reason: Insomnia Stop: 06/10/17 20:15 Last Admin: 06/04/17 22:23 Dose: 0.25 mg Ascorbic Acid (Vitamin C 500 Mg Tab) 1,000 mg PO BID [facility] Last Admin: 06/05/17 09:17 Dose: 1,000 mg Aspirin (Ecotrin) 81 mg PO DAILY [facility] Last Admin: 06/05/17 09:17 Dose: 81 mg Atorvastatin Calcium (Lipitor) 40 mg PO HS [facility] Last Admin: 06/04/17 22:19 Dose: 40 mg Carvedilol (Coreg) 3.125 mg PO DAILY [facility] Last Admin: 06/05/17 09:22 Dose: 3.125 mg Docusate Sodium (Colace) 200 mg PO DAILY [facility] Last Admin: 06/05/17 09:22 Dose: 200 mg Furosemide (Lasix) 20 mg PO Q72H [facility] Last Admin: 06/05/17 09:20 Dose: 20 mg Heparin Sodium (Porcine) (Heparin) 5,000 units SC Q12 [facility] PRN Reason: Protocol Last Admin: 06/05/17 09:44 Dose: Not Given Home Med (Ranolazine [Ranexa]) 1,000 mg PO BID [facility] Last Admin: 06/05/17 09:17 Dose: 1,000 mg Insulin Lispro Protam/Lispro Human (Humalog Mix 75/25) 25 units SC DAILY [facility] Last Admin: 06/05/17 09:31 Dose: 25 units Lactobacillus Acidophilus (Bacid Acidophilus) 1 cap PO BID [facility] Last Admin: 06/05/17 09:30 Dose: 1 cap Lactulose (Enulose) 20 gm PO DAILY [facility] Last Admin: 06/05/17 09:22 Dose: 20 gm Levothyroxine Sodium (Synthroid) 100 mcg PO DAILY@0630 [facility] Last Admin: 06/05/17 06:45 Dose: 100 mcg Loratadine (Claritin) 10 mg PO DAILY [facility] Last Admin: 06/05/17 09:17 Dose: 10 mg Meclizine HCl (Antivert) 25 mg PO Q6H PRN PRN Reason: Dizziness Nitroglycerin (Nitrostat Sl Tab) 0.4 mg SL Q5MIN PRN PRN Reason: chest pain Nystatin (Nystop Topical Powder) 1 applic TOP TID [facility] Last Admin: 06/05/17 09:16 Dose: 1 applic - Labs Labs: 06/04/17 06:30 06/04/17 07:25 - Constitutional Appears: No Acute Distress, Chronically Ill - Head Exam Head Exam: NORMAL INSPECTION - Eye Exam Eye Exam: PERRL Additional comments: L eye blind - ENT Exam Additional comments: Hard of hear R ear - Neck Exam Neck Exam: Normal Inspection - Respiratory Exam Respiratory Exam: Decreased Breath Sounds (at bases) - Cardiovascular Exam Cardiovascular Exam: REGULAR RHYTHM - GI/Abdominal Exam GI & Abdominal Exam: Soft, Normal Bowel Sounds - Extremities Exam Additional comments: L TMA - Back Exam Back Exam: NORMAL INSPECTION - Neurological Exam Neurological Exam: Alert, Awake, Oriented x3 Additional comments: Forgetful at times, moves all extremities agains gravity, generalized weakness. - Psychiatric Exam Psychiatric exam: Anxious - Skin Skin Exam: Warm Assessment and Plan (1) UTI due to Klebsiella species Status: Acute (2) Chronic urinary tract infection Status: Acute (3) Diabetes mellitus with hyperglycemia Status: Acute (4) Diabetes mellitus with hyperglycemia Status: Chronic (5) Chronic low back pain Status: Chronic (6) CHF (congestive heart failure) Status: Acute (7) Hypothyroidism Status: Chronic (8) COPD (chronic obstructive pulmonary disease) Status: Chronic (9) CKD (chronic kidney disease) Status: Chronic (10) Hx of CABG Status: Chronic (11) Anxiety Status: Chronic (12) DVT prophylaxis Status: Chronic - Assessment and Plan (Free Text) Plan: Ozzy was DC 2nd to high level, U C-S Bacteremia, F/U ID consult.
[2017-06-05 16:00] LABS: ALB/GLOB RATIO 1.1 (1.0-2.1); BILIRUBIN,TOTAL 0.4 mg/dl (0.2-1.3); CALCIUM 9.1 mg/dL (8.4-10.2); TOTAL PROTEIN 6.7 G/DL (6.3-8.2)
[2017-06-05 16:01] LABS: BASO % 0.7 % (0.0-2.0); EOS # 0.3 K/uL (0.0-0.7); HEMATOCRIT 32.5 % (34.0-47.0); LYMPH # 1.6 K/uL (1.0-4.3); MEAN CELL VOLUME 93.6 fl (81.0-99.0); MEAN CORPUSCULAR HEMOGLOBIN 30.5 pg (27.0-31.0); MEAN CORPUSCULAR HGB CONC 32.6 g/dL (33.0-37.0); MEAN PLATELET VOLUME 8.4 fl (7.2-11.7); MONO # 0.6 K/uL (0.0-0.8); MONO % 10.7 % (0.0-10.0); NEUT # 3.3 K/uL (1.8-7.0); NEUT % 56.6 % (50.0-75.0); RED CELL DISTRIBUTION WIDTH 16.9 % (11.5-14.5); WHITE BLOOD COUNT 5.7 K/uL (4.8-10.8)
[2017-06-05] MEDS ORDERED: Sod Polystyrene Sulf 15 gm/60 ml Oral Susp PO ONE (17:00)
[2017-06-05] MEDS: Sodium Chloride 0.45% 1,000 ML IV SCH (17:41)
[2017-06-06] MEDS ORDERED: Sod Polystyrene Sulf 15 gm/60 ml Oral Susp PO ONE (01:00)
[2017-06-06 06:37] LABS: BASO # 0.1 K/uL (0.0-0.2); BASO % 0.8 % (0.0-2.0); EOS # 0.4 K/uL (0.0-0.7); EOS % 5.5 % (0.0-4.0); HEMATOCRIT 33.1 % (34.0-47.0); LYMPH % 30.1 % (20.0-40.0); MEAN CELL VOLUME 93.9 fl (81.0-99.0); MEAN CORPUSCULAR HEMOGLOBIN 31.2 pg (27.0-31.0); MEAN CORPUSCULAR HGB CONC 33.2 g/dL (33.0-37.0); MEAN PLATELET VOLUME 8.3 fl (7.2-11.7); MONO # 0.6 K/uL (0.0-0.8); MONO % 9.3 % (0.0-10.0); NEUT # 3.6 K/uL (1.8-7.0); NEUT % 54.3 % (50.0-75.0); NRBC % 0.1 % (0.0-0.0); RED CELL DISTRIBUTION WIDTH 16.7 % (11.5-14.5); WHITE BLOOD COUNT 6.6 K/uL (4.8-10.8)
[2017-06-06] MEDS: Levothyroxine 100 MCG TAB PO SCH (06:37)
[2017-06-06] MEDS: Sodium Chloride 0.45% 1,000 ML IV SCH (06:37)
[2017-06-06 06:49] LABS: BILIRUBIN,TOTAL 0.4 mg/dl (0.2-1.3); CALCIUM 9.1 mg/dL (8.4-10.2); POTASSIUM 4.6 MMOL/L (3.6-5.0); TOTAL PROTEIN 6.9 G/DL (6.3-8.2)
[2017-06-06] MEDS: Lactobacillus Acidophilus 500 MU Cap PO SCH ×2 (08:33→16:08)
[2017-06-06] MEDS: Patient's Own Med (Ranolazine [Ranexa] 1,000 MG) PO SCH ×2 (08:34→16:09)
[2017-06-06] MEDS: Insulin Lispro Mix 75/25 100 units/ml (HumaLog) 10ml SC SCH (08:36)
[2017-06-06] MEDS ORDERED: Insulin Regular 100 units/ml SC ONE (10:19)
--- NOTE | 2017-06-06 10:55 | CP.PCM.PN ---
Subjective - Date & Time of Evaluation Date of Evaluation: 06/04/17 Time of Evaluation: 18:00 - Subjective Subjective: urology. patient seen for eval of recurrent uti. she said about3 to 4 this year. she siad that she was evaluated by a urogyn and might have been advised of some surgical intervention but was never realized. At this time she has a Klebsiella uti and is being treated with IV gentamycin. She is voiding freely with no dysuria. Post tx she can follow up as an outpatient for continued monitoring Objective - Vital Signs/Intake and Output Vital Signs (last 24 hours): Temp Pulse Resp BP Pulse Ox 98.1 F 78 20 139/73 99 06/06/17 07:56 06/06/17 08:35 06/06/17 07:56 06/06/17 07:56 06/06/17 07:56 - Medications Medications: Current Medications Acetaminophen/Codeine Phosphate (Tylenol/Codeine 300 Mg/30 Mg) 1 tab PO Q8H PRN PRN Reason: Pain, severe (8-10) Albuterol/Ipratropium (Duoneb 3 Mg/0.5 Mg (3 Ml) Ud) 3 ml IH Q6H PRN PRN Reason: Shortness of Breath Alprazolam (Xanax) 0.25 mg PO HS PRN PRN Reason: Insomnia Stop: 06/10/17 20:15 Last Admin: 06/04/17 22:23 Dose: 0.25 mg Ascorbic Acid (Vitamin C 500 Mg Tab) 1,000 mg PO BID [facility] Last Admin: 06/06/17 08:35 Dose: 1,000 mg Aspirin (Ecotrin) 81 mg PO DAILY [facility] Last Admin: 06/06/17 08:34 Dose: 81 mg Atorvastatin Calcium (Lipitor) 40 mg PO HS [facility] Last Admin: 06/05/17 22:39 Dose: 40 mg Carvedilol (Coreg) 3.125 mg PO DAILY [facility] Last Admin: 06/06/17 08:35 Dose: 3.125 mg Docusate Sodium (Colace) 200 mg PO DAILY [facility] Last Admin: 06/06/17 08:34 Dose: Not Given Furosemide (Lasix) 20 mg PO Q72H [facility] Last Admin: 06/05/17 09:20 Dose: 20 mg Heparin Sodium (Porcine) (Heparin) 5,000 units SC Q12 [facility] PRN Reason: Protocol Last Admin: 06/06/17 08:33 Dose: 5,000 units Home Med (Ranolazine [Ranexa]) 1,000 mg PO BID [facility] Last Admin: 06/06/17 08:34 Dose: 1,000 mg Sodium Chloride (Sodium Chloride 0.45%) 1,000 mls @ 80 mls/hr IV .[id number] [facility] Stop: 06/06/17 17:01 Last Admin: 06/06/17 06:37 Dose: 80 mls/hr Insulin Lispro Protam/Lispro Human (Humalog Mix 75/25) 25 units SC DAILY [facility] Last Admin: 06/06/17 08:36 Dose: 25 units Lactobacillus Acidophilus (Bacid Acidophilus) 1 cap PO BID [facility] Last Admin: 06/06/17 08:33 Dose: 1 cap Lactulose (Enulose) 20 gm PO DAILY [facility] Last Admin: 06/06/17 08:35 Dose: Not Given Levothyroxine Sodium (Synthroid) 100 mcg PO DAILY@0630 [facility] Last Admin: 06/06/17 06:37 Dose: 100 mcg Loratadine (Claritin) 10 mg PO DAILY [facility] Last Admin: 06/06/17 08:33 Dose: 10 mg Meclizine HCl (Antivert) 25 mg PO Q6H PRN PRN Reason: Dizziness Nitroglycerin (Nitrostat Sl Tab) 0.4 mg SL Q5MIN PRN PRN Reason: chest pain Nystatin (Nystop Topical Powder) 1 applic TOP TID [facility] Last Admin: 06/06/17 08:34 Dose: 1 applic - Labs Labs: 06/06/17 05:30 06/06/17 04:00
--- NOTE | 2017-06-06 12:30 | CP.PCM.CON ---
History of Present Illness - History of Present Illness History of Present Illness: 77 y/o female with Hx/o recent recurrent UTIs, CAD/CABG,HTN,HLD,Hypothyroidism was admitted for UTI, As an outpatient Pt was treated for UTI with Bactrim. However results of C&S showed Klebsiella that was resistent to Bactrim Since then Pt hs developed Hypekalemia with Creat of 1.6 There is no Hx/o CKD Past Patient History - Infectious Disease Hx of Infectious Diseases: None - Past Medical History & Family History Past Medical History?: Yes - Past Social History Smoking Status: Never Smoked Alcohol: None Drugs: Denies Home Situation {Lives}: With Family - CARDIAC Hx Cardiac Disorders: Yes Hx Congestive Heart Failure: Yes Hx Hypercholesterolemia: Yes Hx Hypertension: Yes Hx Pacemaker: No Hx Peripheral Edema: Yes - PULMONARY Hx Respiratory Disorders: Yes Hx Asthma: Yes Hx Bronchitis: Yes Hx Chronic Obstructive Pulmonary Disease (COPD): Yes Hx Pneumonia: Yes - NEUROLOGICAL Hx Neurological Disorder: No - HEENT Hx HEENT Problems: Yes (wear eyeglasses) Other/Comment: Hard of hear R ear. - RENAL Hx Chronic Kidney Disease: No - ENDOCRINE/METABOLIC Hx Endocrine Disorders: Yes Hx Hypothyroidism: Yes - HEMATOLOGICAL/ONCOLOGICAL Hx Blood Disorders: Yes Hx Anemia: Yes Hx Human Immunodeficiency Virus (HIV): No - INTEGUMENTARY Hx Dermatological Problems: No - MUSCULOSKELETAL/RHEUMATOLOGICAL Hx Musculoskeletal Disorders: Yes Hx Arthritis: Yes Hx Back Pain: Yes Hx Falls: Yes Hx Rheumatoid Arthritis: No - GASTROINTESTINAL Hx Gastrointestinal Disorders: Yes Hx Gastritis: Yes - GENITOURINARY/GYNECOLOGICAL Hx Genitourinary Disorders: Yes Hx Incontinence: Yes Hx Urinary Tract Infection: Yes - PSYCHIATRIC Hx Psychophysiologic Disorder: Yes Hx Anxiety: Yes Hx Depression: Yes - SURGICAL HISTORY Hx Surgeries: Yes Hx Cholecystectomy: Yes Hx Coronary Artery Bypass Graft: Yes (x4) Hx Coronary Stent: Yes - ANESTHESIA Hx Anesthesia: Yes Hx Anesthesia Reactions: No Hx Malignant Hyperthermia: No Meds Allergies/Adverse Reactions: Allergies Allergy/AdvReac Type Severity Reaction Status Date / Time kiwi Allergy Mild RASH Verified 01/12/17 16:51 morphine Allergy Mild RASH Verified 01/12/17 16:51 Penicillins Allergy Mild RASH Verified 01/12/17 16:51 pineapple Allergy Mild RASH Verified 01/12/17 16:51 watermelon Allergy Mild RASH Verified 01/12/17 16:51 - Medications Medications: Current Medications Acetaminophen/Codeine Phosphate (Tylenol/Codeine 300 Mg/30 Mg) 1 tab PO Q8H PRN PRN Reason: Pain, severe (8-10) Albuterol/Ipratropium (Duoneb 3 Mg/0.5 Mg (3 Ml) Ud) 3 ml IH Q6H PRN PRN Reason: Shortness of Breath Alprazolam (Xanax) 0.25 mg PO HS PRN PRN Reason: Insomnia Stop: 06/10/17 20:15 Last Admin: 06/04/17 22:23 Dose: 0.25 mg Ascorbic Acid (Vitamin C 500 Mg Tab) 1,000 mg PO BID [facility] Last Admin: 06/06/17 08:35 Dose: 1,000 mg Aspirin (Ecotrin) 81 mg PO DAILY [facility] Last Admin: 06/06/17 08:34 Dose: 81 mg Atorvastatin Calcium (Lipitor) 40 mg PO HS [facility] Last Admin: 06/05/17 22:39 Dose: 40 mg Carvedilol (Coreg) 3.125 mg PO DAILY [facility] Last Admin: 06/06/17 08:35 Dose: 3.125 mg Docusate Sodium (Colace) 200 mg PO DAILY [facility] Last Admin: 06/06/17 08:34 Dose: Not Given Furosemide (Lasix) 20 mg PO Q72H [facility] Last Admin: 06/05/17 09:20 Dose: 20 mg Heparin Sodium (Porcine) (Heparin) 5,000 units SC Q12 [facility] PRN Reason: Protocol Last Admin: 06/06/17 08:33 Dose: 5,000 units Home Med (Ranolazine [Ranexa]) 1,000 mg PO BID [facility] Last Admin: 06/06/17 08:34 Dose: 1,000 mg Sodium Chloride (Sodium Chloride 0.45%) 1,000 mls @ 80 mls/hr IV .[id number] [facility] Stop: 06/06/17 17:01 Last Admin: 06/06/17 06:37 Dose: 80 mls/hr Insulin Lispro Protam/Lispro Human (Humalog Mix 75/25) 25 units SC DAILY [facility] Last Admin: 06/06/17 08:36 Dose: 25 units Lactobacillus Acidophilus (Bacid Acidophilus) 1 cap PO BID [facility] Last Admin: 06/06/17 08:33 Dose: 1 cap Lactulose (Enulose) 20 gm PO DAILY [facility] Last Admin: 06/06/17 08:35 Dose: Not Given Levothyroxine Sodium (Synthroid) 100 mcg PO DAILY@0630 [facility] Last Admin: 06/06/17 06:37 Dose: 100 mcg Loratadine (Claritin) 10 mg PO DAILY [facility] Last Admin: 06/06/17 08:33 Dose: 10 mg Meclizine HCl (Antivert) 25 mg PO Q6H PRN PRN Reason: Dizziness Nitroglycerin (Nitrostat Sl Tab) 0.4 mg SL Q5MIN PRN PRN Reason: chest pain Nystatin (Nystop Topical Powder) 1 applic TOP TID [facility] Last Admin: 06/06/17 12:06 Dose: 1 applic Physical Exam - Constitutional Appears: No Acute Distress - Head Exam Head Exam: ATRAUMATIC, NORMOCEPHALIC - Eye Exam Additional comments: Sclera anicteric - ENT Exam ENT Exam: Mucous Membranes Moist - Neck Exam Additional comments: JVD negative @ 40 deg - Respiratory Exam Additional comments: Lungs clear - Cardiovascular Exam Cardiovascular Exam: REGULAR RHYTHM - GI/Abdominal Exam GI & Abdominal Exam: Firm Additional comments: No guarding or rebound - Extremities Exam Additional comments: No edema Results - Vital Signs Recent Vital Signs: Last Vital Signs Temp 98.1 F 06/06/17 07:56 Pulse 78 06/06/17 08:35 Resp 20 06/06/17 07:56 BP 139/73 06/06/17 07:56 Pulse Ox 99 06/06/17 07:56 - Labs Result Diagrams: 06/06/17 05:30 06/06/17 04:00 Labs: Laboratory Results - last 24 hr 06/05/17 06/05/17 06/05/17 15:20 15:30 16:13 WBC 5.7 RBC 3.47 L Hgb 10.6 L Hct 32.5 L MCV 93.6 MCH 30.5 MCHC 32.6 L RDW 16.9 H Plt Count 170 MPV 8.4 Neut % (Auto) 56.6 Lymph % (Auto) 27.0 [place] % (Auto) 10.7 H Eos % (Auto) 5.0 H Baso % (Auto) 0.7 Neut # 3.3 Lymph # 1.6 [place] # 0.6 Eos # 0.3 Baso # 0.0 Sodium 134 Potassium 6.0 H Chloride 99 Carbon Dioxide 28 Anion Gap 13 BUN 32 H Creatinine 1.8 H Est GFR ( Amer) 33 Est GFR (Non-Af Amer) 27 POC Glucose (mg/dL) 223 H Random Glucose 219 H Calcium 9.1 Total Bilirubin 0.4 AST 27 ALT 31 Alkaline Phosphatase 113 Total Protein 6.7 Albumin 3.5 Globulin 3.2 Albumin/Globulin Ratio 1.1 06/05/17 06/06/17 06/06/17 20:46 04:00 05:30 WBC 6.6 RBC 3.53 L Hgb 11.0 L Hct 33.1 L MCV 93.9 MCH 31.2 H MCHC 33.2 RDW 16.7 H Plt Count 180 MPV 8.3 Neut % (Auto) 54.3 Lymph % (Auto) 30.1 [place] % (Auto) 9.3 Eos % (Auto) 5.5 H Baso % (Auto) 0.8 Neut # 3.6 Lymph # 2.0 [place] # 0.6 Eos # 0.4 Baso # 0.1 Sodium 139 Potassium 4.6 Chloride 103 Carbon Dioxide 31 H Anion Gap 10 BUN 28 H Creatinine 1.5 H Est GFR ( Amer) 41 Est GFR (Non-Af Amer) 33 POC Glucose (mg/dL) 241 H Random Glucose 239 H Calcium 9.1 Total Bilirubin 0.4 AST 24 ALT 26 Alkaline Phosphatase 114 Total Protein 6.9 Albumin 3.5 Globulin 3.4 Albumin/Globulin Ratio 1.0 06/06/17 06/06/17 06:26 10:41 WBC RBC Hgb Hct MCV MCH MCHC RDW Plt Count MPV Neut % (Auto) Lymph % (Auto) [place] % (Auto) Eos % (Auto) Baso % (Auto) Neut # Lymph # [place] # Eos # Baso # Sodium Potassium Chloride Carbon Dioxide Anion Gap BUN Creatinine Est GFR ( Amer) Est GFR (Non-Af Amer) POC Glucose (mg/dL) 238 H 346 H Random Glucose Calcium Total Bilirubin AST ALT Alkaline Phosphatase Total Protein Albumin Globulin Albumin/Globulin Ratio Assessment & Plan - Assessment and Plan (Free Text) Assessment: [facility] to Bactrim &/or UTI Hyperkalemia secondary to Bactrim use Recurrent UTI CAD HTN Plan: Bactrim is stopped K+ is normal today. Was treated with Kayexalate yesterday Maintain on 2 g K+ diet Continue Lasix which will also help with Kaliuresis
--- NOTE | 2017-06-06 12:33 | CP.PCM.PN ---
Subjective - Date & Time of Evaluation Date of Evaluation: 06/06/17 Time of Evaluation: 05:00 - Subjective Subjective: ID CONSULTED FOR ANTIBIOTIC MANAGEMENT OF ESBL + ECOLI IN A PCN ALLERGIC PT WITH CKD AND RECURRENT UTI latest genta level high bun/creat improving on board IV rx to cont Objective - Vital Signs/Intake and Output Vital Signs (last 24 hours): Temp Pulse Resp BP Pulse Ox 98.1 F 78 20 139/73 99 06/06/17 07:56 06/06/17 08:35 06/06/17 07:56 06/06/17 07:56 06/06/17 07:56 - Medications Medications: Current Medications Acetaminophen/Codeine Phosphate (Tylenol/Codeine 300 Mg/30 Mg) 1 tab PO Q8H PRN PRN Reason: Pain, severe (8-10) Albuterol/Ipratropium (Duoneb 3 Mg/0.5 Mg (3 Ml) Ud) 3 ml IH Q6H PRN PRN Reason: Shortness of Breath Alprazolam (Xanax) 0.25 mg PO HS PRN PRN Reason: Insomnia Stop: 06/10/17 20:15 Last Admin: 06/04/17 22:23 Dose: 0.25 mg Ascorbic Acid (Vitamin C 500 Mg Tab) 1,000 mg PO BID [facility] Last Admin: 06/06/17 08:35 Dose: 1,000 mg Aspirin (Ecotrin) 81 mg PO DAILY [facility] Last Admin: 06/06/17 08:34 Dose: 81 mg Atorvastatin Calcium (Lipitor) 40 mg PO HS [facility] Last Admin: 06/05/17 22:39 Dose: 40 mg Carvedilol (Coreg) 3.125 mg PO DAILY [facility] Last Admin: 06/06/17 08:35 Dose: 3.125 mg Docusate Sodium (Colace) 200 mg PO DAILY [facility] Last Admin: 06/06/17 08:34 Dose: Not Given Furosemide (Lasix) 20 mg PO Q72H [facility] Last Admin: 06/05/17 09:20 Dose: 20 mg Heparin Sodium (Porcine) (Heparin) 5,000 units SC Q12 [facility] PRN Reason: Protocol Last Admin: 06/06/17 08:33 Dose: 5,000 units Home Med (Ranolazine [Ranexa]) 1,000 mg PO BID [facility] Last Admin: 06/06/17 08:34 Dose: 1,000 mg Sodium Chloride (Sodium Chloride 0.45%) 1,000 mls @ 80 mls/hr IV .[id number] [facility] Stop: 06/06/17 17:01 Last Admin: 06/06/17 06:37 Dose: 80 mls/hr Insulin Lispro Protam/Lispro Human (Humalog Mix 75/25) 25 units SC DAILY [facility] Last Admin: 06/06/17 08:36 Dose: 25 units Lactobacillus Acidophilus (Bacid Acidophilus) 1 cap PO BID [facility] Last Admin: 06/06/17 08:33 Dose: 1 cap Lactulose (Enulose) 20 gm PO DAILY [facility] Last Admin: 06/06/17 08:35 Dose: Not Given Levothyroxine Sodium (Synthroid) 100 mcg PO DAILY@0630 [facility] Last Admin: 06/06/17 06:37 Dose: 100 mcg Loratadine (Claritin) 10 mg PO DAILY [facility] Last Admin: 06/06/17 08:33 Dose: 10 mg Meclizine HCl (Antivert) 25 mg PO Q6H PRN PRN Reason: Dizziness Nitroglycerin (Nitrostat Sl Tab) 0.4 mg SL Q5MIN PRN PRN Reason: chest pain Nystatin (Nystop Topical Powder) 1 applic TOP TID [facility] Last Admin: 06/06/17 12:06 Dose: 1 applic - Labs Labs: 06/06/17 05:30 06/06/17 04:00 - Constitutional Appears: Non-toxic, Chronically Ill - Head Exam Head Exam: NORMOCEPHALIC - Eye Exam Eye Exam: PERRL. absent: Scleral icterus - ENT Exam ENT Exam: Mucous Membranes Dry, Normal External Ear Exam - Neck Exam Neck Exam: absent: Lymphadenopathy - Respiratory Exam Respiratory Exam: Decreased Breath Sounds, Clear to Ausculation Bilateral - Cardiovascular Exam Cardiovascular Exam: REGULAR RHYTHM, +S1, +S2 - GI/Abdominal Exam GI & Abdominal Exam: Distended, Soft. absent: Tenderness - Rectal Exam Rectal Exam: Deferred - Exam Exam: NORMAL INSPECTION - Extremities Exam Extremities Exam: absent: Calf Tenderness, Pedal Edema - Back Exam Back Exam: absent: CVA tenderness (L), CVA tenderness (R), paraspinal tenderness - Neurological Exam Neurological Exam: Alert, Awake, Oriented x3 - Psychiatric Exam Psychiatric exam: Depressed - Skin Skin Exam: Dry, Intact Assessment and Plan (1) Acute on chronic systolic congestive heart failure Status: Acute (2) CHF (congestive heart failure) Status: Acute (3) CKD (chronic kidney disease) Status: Chronic (4) Chr obstructive pulmonary disease w/ acute lower respiratory infxn Status: Acute (5) Chronic chest pain Status: Acute (6) Chronic urinary tract infection Status: Acute (7) DVT prophylaxis Status: Chronic (8) Diabetes mellitus with hyperglycemia Status: Acute (9) Fever Status: Acute (10) Hx of CABG Status: Chronic
--- NOTE | 2017-06-06 13:44 | CP.PCM.PN ---
Subjective - Date & Time of Evaluation Date of Evaluation: 06/06/17 Time of Evaluation: 10:40 - Subjective Subjective: F/U UTI Pt c/o of L-S pain radiated to L lower extremity, no abdominal pain. Objective - Vital Signs/Intake and Output Vital Signs (last 24 hours): Temp Pulse Resp BP Pulse Ox 98.1 F 78 20 139/73 99 06/06/17 07:56 06/06/17 08:35 06/06/17 07:56 06/06/17 07:56 06/06/17 07:56 - Medications Medications: Current Medications Acetaminophen/Codeine Phosphate (Tylenol/Codeine 300 Mg/30 Mg) 1 tab PO Q8H PRN PRN Reason: Pain, severe (8-10) Albuterol/Ipratropium (Duoneb 3 Mg/0.5 Mg (3 Ml) Ud) 3 ml IH Q6H PRN PRN Reason: Shortness of Breath Alprazolam (Xanax) 0.25 mg PO HS PRN PRN Reason: Insomnia Stop: 06/10/17 20:15 Last Admin: 06/04/17 22:23 Dose: 0.25 mg Ascorbic Acid (Vitamin C 500 Mg Tab) 1,000 mg PO BID [facility] Last Admin: 06/06/17 08:35 Dose: 1,000 mg Aspirin (Ecotrin) 81 mg PO DAILY [facility] Last Admin: 06/06/17 08:34 Dose: 81 mg Atorvastatin Calcium (Lipitor) 40 mg PO HS [facility] Last Admin: 06/05/17 22:39 Dose: 40 mg Carvedilol (Coreg) 3.125 mg PO DAILY [facility] Last Admin: 06/06/17 08:35 Dose: 3.125 mg Docusate Sodium (Colace) 200 mg PO DAILY [facility] Last Admin: 06/06/17 08:34 Dose: Not Given Furosemide (Lasix) 20 mg PO Q72H [facility] Last Admin: 06/05/17 09:20 Dose: 20 mg Heparin Sodium (Porcine) (Heparin) 5,000 units SC Q12 [facility] PRN Reason: Protocol Last Admin: 06/06/17 08:33 Dose: 5,000 units Home Med (Ranolazine [Ranexa]) 1,000 mg PO BID [facility] Last Admin: 06/06/17 08:34 Dose: 1,000 mg Sodium Chloride (Sodium Chloride 0.45%) 1,000 mls @ 80 mls/hr IV .[id number] [facility] Stop: 06/06/17 17:01 Last Admin: 06/06/17 06:37 Dose: 80 mls/hr Insulin Lispro Protam/Lispro Human (Humalog Mix 75/25) 25 units SC DAILY [facility] Last Admin: 06/06/17 08:36 Dose: 25 units Lactobacillus Acidophilus (Bacid Acidophilus) 1 cap PO BID [facility] Last Admin: 06/06/17 08:33 Dose: 1 cap Lactulose (Enulose) 20 gm PO DAILY [facility] Last Admin: 06/06/17 08:35 Dose: Not Given Levothyroxine Sodium (Synthroid) 100 mcg PO DAILY@0630 [facility] Last Admin: 06/06/17 06:37 Dose: 100 mcg Loratadine (Claritin) 10 mg PO DAILY [facility] Last Admin: 06/06/17 08:33 Dose: 10 mg Meclizine HCl (Antivert) 25 mg PO Q6H PRN PRN Reason: Dizziness Nitroglycerin (Nitrostat Sl Tab) 0.4 mg SL Q5MIN PRN PRN Reason: chest pain Nystatin (Nystop Topical Powder) 1 applic TOP TID [facility] Last Admin: 06/06/17 12:06 Dose: 1 applic - Labs Labs: 06/06/17 05:30 06/06/17 04:00 Assessment and Plan (1) UTI due to Klebsiella species Status: Acute (2) Chronic urinary tract infection Status: Acute (3) Diabetes mellitus with hyperglycemia Status: Acute (4) Chronic low back pain Status: Chronic (5) CHF (congestive heart failure) Status: Acute (6) Hypothyroidism Status: Chronic (7) COPD (chronic obstructive pulmonary disease) Status: Chronic (8) Acute kidney injury superimposed on chronic kidney disease Status: Acute (9) Hx of CABG Status: Chronic (10) Anxiety Status: Chronic (11) DVT prophylaxis Status: Chronic - Assessment and Plan (Free Text) Plan: F/U Renal U-S, 24 hrs urine for total protein and creatinine, , f/u with Genta level, Urology consult appreciated.
--- NOTE | 2017-06-06 14:15 | US ---
PROCEDURE: Ultrasound of the Kidneys HISTORY: abnormal labs COMPARISON: 12/22/2016. TECHNIQUE: Sonogram of the kidneys. FINDINGS: RIGHT KIDNEY: Measures: 4 x 4.6 x 9.3 cm. Normal in size, contour and echogenicity. No stone, solid mass lesion or hydronephrosis visualized. LEFT KIDNEY: Measures: 3.5 x 4.4 x 9.6 cm. Normal in size, contour and echogenicity. No stone, solid mass lesion or hydronephrosis visualized. OTHER FINDINGS: None. IMPRESSION: Unremarkable renal sonogram.No significant interval change compared to the prior examination(s).
[2017-06-06] MEDS ORDERED: Gentamicin 80mg/50ml NS 80 MG/50 ML BAG IVPB ONE (20:00)
[2017-06-06] MEDS ORDERED: Insulin NPH Human 100 Units/ml Inj SC ONE (21:44)
[2017-06-07] MEDS: Levothyroxine 100 MCG TAB PO SCH (06:13)
[2017-06-07 07:55] VITALS: RESP 20
[2017-06-07] MEDS: Insulin Lispro Mix 75/25 100 units/ml (HumaLog) 10ml SC SCH (09:01)
[2017-06-07] MEDS: Patient's Own Med (Ranolazine [Ranexa] 1,000 MG) PO SCH ×2 (09:04→17:08)
[2017-06-07] MEDS: Lactobacillus Acidophilus 500 MU Cap PO SCH ×2 (09:14→17:11)
--- NOTE | 2017-06-07 12:11 | PQF GENQUE ---
Dr. Oliver (1) Acute CHF ruled in or ruled out? (2) COPD with Acute Respiratory Infection ruled in or ruled out? (3) COPD Stable ----- Acute CHF in the ID consult note of 06/03 and the attending progress note of 06/05. H and P and progress note of 06/05/17: PE: Respiratory Exam: Decreased Breath Sounds (at bases) ----- H and P: COPD: Chronic versus ID consult: Chr obstructive pulmonary disease w/ acute lower respiratory infxn Status: Acute CXR:Report: No Active Disease oral Lasix Q 72 hrs and coreg nebs:PRN This form is a permanent part of the medical record Clarification of your documentation is requested to better reflect the severity of illness and intensity of treatment of your patient. Indicators present [] Specify: [] [] Specify: [] [] Specify: [] [] Specify: [] Location in the medical record that reflects the above clinical findings: [] Treatment Provided: [] PHYSICIAN'S RESPONSE Based on your medical judgment of the clinical indicators outlined above please clarify the following: [] Practitioner response [] If unable to determine, please check the box, sign and date. Present On Admission (POA) Indicator: [] Present at the time of admission [] Not present at the time of admission [] Clinically Undetermined In responding to this query, please exercise your independent professional judgment. The fact that a question is asked does not imply that any particular answer is desired or expected. Thank you for your clarification on this documentation. If you have any questions please call. * Thank you, Viji Lopez RN BSN ext. #[phone] MTDD
--- NOTE | 2017-06-07 12:13 | CP.PCM.PN ---
Subjective - Date & Time of Evaluation Date of Evaluation: 06/07/17 Time of Evaluation: 12:10 - Subjective Subjective: Patient and bed No new events reported Daughter and the bedside Objective - Vital Signs/Intake and Output Vital Signs (last 24 hours): Temp Pulse Resp BP Pulse Ox 98.1 F 80 20 125/78 100 06/07/17 07:55 06/07/17 09:05 06/07/17 07:55 06/07/17 09:05 06/07/17 07:55 - Medications Medications: Current Medications Acetaminophen/Codeine Phosphate (Tylenol/Codeine 300 Mg/30 Mg) 1 tab PO Q8H PRN PRN Reason: Pain, severe (8-10) Albuterol/Ipratropium (Duoneb 3 Mg/0.5 Mg (3 Ml) Ud) 3 ml IH Q6H PRN PRN Reason: Shortness of Breath Alprazolam (Xanax) 0.25 mg PO HS PRN PRN Reason: Insomnia Stop: 06/10/17 20:15 Last Admin: 06/06/17 21:46 Dose: 0.25 mg Ascorbic Acid (Vitamin C 500 Mg Tab) 1,000 mg PO BID [facility] Last Admin: 06/07/17 09:03 Dose: 1,000 mg Aspirin (Ecotrin) 81 mg PO DAILY [facility] Last Admin: 06/07/17 09:06 Dose: 81 mg Atorvastatin Calcium (Lipitor) 40 mg PO HS [facility] Last Admin: 06/06/17 20:59 Dose: 40 mg Carvedilol (Coreg) 3.125 mg PO DAILY [facility] Last Admin: 06/07/17 09:05 Dose: 3.125 mg Docusate Sodium (Colace) 200 mg PO DAILY [facility] Last Admin: 06/07/17 09:06 Dose: 200 mg Furosemide (Lasix) 20 mg PO Q72H [facility] Last Admin: 06/05/17 09:20 Dose: 20 mg Heparin Sodium (Porcine) (Heparin) 5,000 units SC Q12 [facility] PRN Reason: Protocol Last Admin: 06/07/17 09:04 Dose: 5,000 units Home Med (Ranolazine [Ranexa]) 1,000 mg PO BID [facility] Last Admin: 06/07/17 09:04 Dose: 1,000 mg Insulin Lispro Protam/Lispro Human (Humalog Mix 75/25) 25 units SC DAILY [facility] Last Admin: 06/07/17 09:01 Dose: 25 units Lactobacillus Acidophilus (Bacid Acidophilus) 1 cap PO BID [facility] Last Admin: 06/07/17 09:14 Dose: 1 cap Lactulose (Enulose) 20 gm PO DAILY [facility] Last Admin: 06/07/17 09:04 Dose: Not Given Levothyroxine Sodium (Synthroid) 100 mcg PO DAILY@0630 [facility] Last Admin: 06/07/17 06:13 Dose: 100 mcg Loratadine (Claritin) 10 mg PO DAILY [facility] Last Admin: 06/07/17 09:07 Dose: 10 mg Meclizine HCl (Antivert) 25 mg PO Q6H PRN PRN Reason: Dizziness Nitroglycerin (Nitrostat Sl Tab) 0.4 mg SL Q5MIN PRN PRN Reason: chest pain Nystatin (Nystop Topical Powder) 1 applic TOP TID [facility] Last Admin: 06/07/17 09:07 Dose: 1 applic - Labs Labs: 06/06/17 05:30 06/06/17 04:00 - Constitutional Appears: No Acute Distress - ENT Exam ENT Exam: Mucous Membranes Moist - Cardiovascular Exam Cardiovascular Exam: absent: JVD, Rubs - GI/Abdominal Exam GI & Abdominal Exam: Soft, Normal Bowel Sounds - Extremities Exam Extremities Exam: absent: Calf Tenderness - Back Exam Back Exam: absent: CVA tenderness (L), CVA tenderness (R) - Neurological Exam Neurological Exam: Alert Assessment and Plan (1) Acute kidney failure, unspecified Assessment & Plan: Acute kidney injury Serum creatinine remains stable about 1.5 not taking Bactrim now Continue monitoring Monitor and adjust antibiotics per renal dose Status: Acute (2) UTI due to Klebsiella species Status: Acute
--- NOTE | 2017-06-07 12:14 | PQF GENQUE ---
Dr. Oliver, Please clarify the stage of the chronic kidney disease: Stage 1 Stage 2 (mild) Stage 3 (moderate) Stage 4 (severe) Stage 5 Other (please specify) Clinically unable to determine Unknown BUN:37->32->28 Creatinine:1.6->1.5->1.8 GFR (/Amer/Non-Af Amer):38/31->41/33->33/ This form is a permanent part of the medical record Clarification of your documentation is requested to better reflect the severity of illness and intensity of treatment of your patient. Indicators present [] Specify: [] [] Specify: [] [] Specify: [] [] Specify: [] Location in the medical record that reflects the above clinical findings: [] Treatment Provided: [] PHYSICIAN'S RESPONSE Based on your medical judgment of the clinical indicators outlined above please clarify the following: [] Practitioner response [] If unable to determine, please check the box, sign and date. Present On Admission (POA) Indicator: [] Present at the time of admission [] Not present at the time of admission [] Clinically Undetermined In responding to this query, please exercise your independent professional judgment. The fact that a question is asked does not imply that any particular answer is desired or expected. Thank you for your clarification on this documentation. If you have any questions please call. * Thank you, Viji Lopez RN BSN ext. #[phone] MTDD
--- NOTE | 2017-06-07 12:51 | CP.PCM.PCO ---
Physician Communication Note - Physician Communication Note Physician Communication Note: Per Dr Reilly, pt to continue IV gentamicin x 7 more days
--- NOTE | 2017-06-07 15:42 | CP.PCM.PN ---
Subjective - Date & Time of Evaluation Date of Evaluation: 06/07/17 Time of Evaluation: 12:20 - Subjective Subjective: F/U UTI Pt c/o of mild suprapubic pain and dysuria. Objective - Vital Signs/Intake and Output Vital Signs (last 24 hours): Temp Pulse Resp BP Pulse Ox 98.1 F 80 20 125/78 100 06/07/17 07:55 06/07/17 09:05 06/07/17 07:55 06/07/17 09:05 06/07/17 07:55 - Medications Medications: Current Medications Acetaminophen/Codeine Phosphate (Tylenol/Codeine 300 Mg/30 Mg) 1 tab PO Q8H PRN PRN Reason: Pain, severe (8-10) Albuterol/Ipratropium (Duoneb 3 Mg/0.5 Mg (3 Ml) Ud) 3 ml IH Q6H PRN PRN Reason: Shortness of Breath Alprazolam (Xanax) 0.25 mg PO HS PRN PRN Reason: Insomnia Stop: 06/10/17 20:15 Last Admin: 06/06/17 21:46 Dose: 0.25 mg Ascorbic Acid (Vitamin C 500 Mg Tab) 1,000 mg PO BID [facility] Last Admin: 06/07/17 09:03 Dose: 1,000 mg Aspirin (Ecotrin) 81 mg PO DAILY [facility] Last Admin: 06/07/17 09:06 Dose: 81 mg Atorvastatin Calcium (Lipitor) 40 mg PO HS [facility] Last Admin: 06/06/17 20:59 Dose: 40 mg Carvedilol (Coreg) 3.125 mg PO DAILY [facility] Last Admin: 06/07/17 09:05 Dose: 3.125 mg Docusate Sodium (Colace) 200 mg PO DAILY [facility] Last Admin: 06/07/17 09:06 Dose: 200 mg Furosemide (Lasix) 20 mg PO Q72H [facility] Last Admin: 06/05/17 09:20 Dose: 20 mg Heparin Sodium (Porcine) (Heparin) 5,000 units SC Q12 [facility] PRN Reason: Protocol Last Admin: 06/07/17 09:04 Dose: 5,000 units Home Med (Ranolazine [Ranexa]) 1,000 mg PO BID [facility] Last Admin: 06/07/17 09:04 Dose: 1,000 mg Insulin Human Lispro (Humalog) 0 units SC [facility] PRN Reason: Protocol Insulin Lispro Protam/Lispro Human (Humalog Mix 75/25) 30 units SC [facility] Insulin Lispro Protam/Lispro Human (Humalog Mix 75/25) 20 units SC [facility] Lactobacillus Acidophilus (Bacid Acidophilus) 1 cap PO BID [facility] Last Admin: 06/07/17 09:14 Dose: 1 cap Lactulose (Enulose) 20 gm PO DAILY [facility] Last Admin: 06/07/17 09:04 Dose: Not Given Levothyroxine Sodium (Synthroid) 100 mcg PO DAILY@0630 [facility] Last Admin: 06/07/17 06:13 Dose: 100 mcg Loratadine (Claritin) 10 mg PO DAILY [facility] Last Admin: 06/07/17 09:07 Dose: 10 mg Meclizine HCl (Antivert) 25 mg PO Q6H PRN PRN Reason: Dizziness Nitroglycerin (Nitrostat Sl Tab) 0.4 mg SL Q5MIN PRN PRN Reason: chest pain Nystatin (Nystop Topical Powder) 1 applic TOP TID [facility] Last Admin: 06/07/17 09:07 Dose: 1 applic - Labs Labs: 06/06/17 05:30 06/06/17 04:00 - Constitutional Appears: No Acute Distress, Chronically Ill - Head Exam Head Exam: NORMAL INSPECTION - Eye Exam Eye Exam: PERRL Additional comments: L eye blind - ENT Exam Additional comments: Hard of hear R ear - Neck Exam Neck Exam: Normal Inspection - Respiratory Exam Respiratory Exam: Decreased Breath Sounds (at bases) - Cardiovascular Exam Cardiovascular Exam: REGULAR RHYTHM - GI/Abdominal Exam GI & Abdominal Exam: Soft, Tenderness (mils suprapubic area.), Normal Bowel Sounds. absent: Guarding, Rebound - Extremities Exam Additional comments: L TMA - Back Exam Back Exam: NORMAL INSPECTION - Neurological Exam Neurological Exam: Alert, Awake, Oriented x3 Additional comments: Forgetful at times, moves all extremities against gravity, generalized weakness. - Psychiatric Exam Psychiatric exam: Anxious - Skin Skin Exam: Warm Assessment and Plan (1) UTI due to Klebsiella species Status: Acute (2) Chronic urinary tract infection Status: Acute (3) Diabetes mellitus with hyperglycemia Status: Acute (4) Chronic low back pain Status: Chronic (5) CHF (congestive heart failure) Status: Acute (6) Hypothyroidism Status: Chronic (7) COPD (chronic obstructive pulmonary disease) Status: Chronic (8) Hx of CABG Status: Chronic (9) Anxiety Status: Chronic (10) DVT prophylaxis Status: Chronic - Assessment and Plan (Free Text) Plan: Pt to be transferred to TCU to complete 7 days of IV Gentamycin. Urology and Nephrology consult appreciated. Endocrinology consult.
[2017-06-07 16:05] VITALS: BP 163/78; PULSE 74; TEMP 97.6; O2SAT 99
[2017-06-07] MEDS ORDERED: Insulin Lispro (humaLOG) 100 Units/ml Inj SC SCH ×2 (16:30)
[2017-06-07] MEDS ORDERED: Insulin Lispro Mix 75/25 100 units/ml (HumaLog) 10ml SC SCH (16:30)
--- NOTE | 2017-06-08 06:34 | CON ---
DATE: ENDOCRINOLOGY CONSULT LOCATION: Room 654. HISTORY OF PRESENT ILLNESS: This is a 77-year-old female admitted with recurrent UTI and now has Klebsiella UTI as noted and is now being referred for endocrine evaluation because of persistent hyperglycemic accelerations as noted thereof. PAST MEDICAL HISTORY: As mentioned above. History of type 2 diabetes and hypertension. Previously on basal and bolus insulin regimen as given. History of diabetic retinopathy, polyneuropathy, and nephropathy as mentioned. Also history of coronary artery disease with previous coronary artery bypass graft surgery with subsequent coronary stent placement as noted. History of chronic obstructive lung disease and previous admission for the same. She also has significant history of peripheral arterial disease and vasculopathy and had prior left transmetatarsal amputation. History of hypothyroidism on low dose levothyroxine replacement therapy. History of lumbar disk disease with chronic lower back pain and radiculopathy as mentioned. FAMILY HISTORY: Positive for hypertension and diabetes. SOCIAL HISTORY: The patient has a supportive family. No known substance use. REVIEW OF SYSTEMS: As mentioned above. Admits to generalized body weakness with easy fatigability and tiredness and suboptimal energy level. Also admits to episodic bouts of dizziness and lightheadedness worse on the day of admission. No chest pain or palpitations, but admits progressive shortness of breath, especially on exertion. Her oral intake is variable and suboptimal with nausea, dyspepsia and episodic vague upper abdominal pain. PHYSICAL EXAMINATION GENERAL: This is an average built female, in no apparent distress. VITAL SIGNS: Blood pressure 140/80, pulse of 70 beats per minute and regular, temperature 98, respirations 20. Height is 5 feet and weight is 183 pounds. HEENT: Head is normocephalic. Eyes; anicteric with pink conjunctivae. Funduscopy not possible at this time. Ears, nose, and throat otherwise normal. NECK: Neck is supple. Thyroid gland is normal in size, no carotid bruits or cervical adenopathy. CARDIOPULMONARY: Adynamic precordium. S1 and S2 is rapid and regular. LUNGS: Clear to auscultation. ABDOMEN: Flat, soft with positive bowel sounds. EXTREMITIES: No peripheral edema. Pulses are +2 bilaterally. LABORATORY DATA: Chemistries shows BUN of 28, sodium 139, potassium 4.6, chloride 103, CO2 is 31, glucose is 239 and creatinine 1.5. Her glucose levels have ranged from 238, 346 and 301 mg/dL. ASSESSMENT: This is a 77-year-old female with recurrent urinary tract infection, currently with Klebsiella infection and also now has uncontrolled type 2 insulin requiring diabetes with subtherapeutic insulin regimen given. She also has diabetic microvascular complications of retinopathy, polyneuropathy, and nephropathy with underlying chronic kidney disease. She also has diabetic macrovascular complications of coronary artery disease with previous coronary artery bypass graft surgery and peripheral arterial disease with prior left transmetatarsal amputation as noted. PLAN OF MANAGEMENT: As discussed with the patient and staff, we will modify her current insulin regimen and switch her over to premixed insulin regimen given twice daily as ordered. We will add Humalog mix 75/25 given as 30 units before breakfast and 20 units before dinner start today. We will also modify the coverage scale to kerry hypoglycemia and low dose Humalog correction scale as given. We will also adjust her levothyroxine dosing with the pending thyroid studies as ordered. We will titrate incrementally as indicated to optimize metabolic control. We will follow and advice accordingly. Nicolette Francis MD
[2017-06-08] MEDS ORDERED: Insulin Lispro Mix 75/25 100 units/ml (HumaLog) 10ml SC SCH (07:30)
[2017-06-08 08:24] LABS: CREATININE, 24 HOUR URINE 0.74 g/24 h (0.63-2.50)
--- NOTE | 2017-06-09 10:11 | CARD ---
APPROVED REPORT EKG Measurement Heart [id number] <Conclusion> Poor data quality, interpretation may be adversely affected Normal sinus rhythm Normal ECG
[2017-06-09 14:54] LABS: GAMMA GLOBULIN 25.5 Relative %
--- NOTE | 2017-06-10 14:00 | CP.PCM.DIS ---
Provider - Provider Date of Admission: 06/03/17 14:31 Attending physician: Sridhar Oliver MD Consults: ID, Endocrinology, Nephrology and Urology. Time Spent in preparation of Discharge (in minutes): 25 Diagnosis - Discharge Diagnosis (1) UTI due to Klebsiella species Status: Acute (2) Chronic urinary tract infection Status: Acute Priority: High (3) Diabetes mellitus with hyperglycemia Status: Acute Priority: High (4) Chronic low back pain Status: Chronic Priority: Medium (5) CHF (congestive heart failure) Status: Acute (6) Hypothyroidism Status: Chronic Priority: Medium (7) COPD (chronic obstructive pulmonary disease) Status: Chronic Priority: Medium (8) Hx of CABG Status: Chronic Priority: Medium (9) Anxiety Status: Chronic Priority: Medium (10) DVT prophylaxis Status: Chronic Priority: Medium Hospital Course - Lab Results Lab Results: Micro Results 06/03/17 15:20 Blood-Venous Blood Culture - Final NO GROWTH AFTER 5 DAYS 06/03/17 15:20 Blood-Venous Gram Stain - Final TEST NOT PERFORMED 06/03/17 14:50 Blood-Venous Blood Culture - Final NO GROWTH AFTER 5 DAYS 06/03/17 14:50 Blood-Venous Gram Stain - Final TEST NOT PERFORMED 06/03/17 14:55 Urine,Catheterized Urine Culture - Final Klebsiella Pneumoniae Ssp Pneu Most Recent Lab Values WBC 6.6 K/uL (4.8-10.8) 06/06/17 05:30 RBC 3.53 Mil/uL (3.80-5.20) L 06/06/17 05:30 Hgb 11.0 g/dL (12.0-16.0) L 06/06/17 05:30 Hct 33.1 % (34.0-47.0) L 06/06/17 05:30 MCV 93.9 fl (81.0-99.0) 06/06/17 05:30 MCH 31.2 pg (27.0-31.0) H 06/06/17 05:30 MCHC 33.2 g/dL (33.0-37.0) 06/06/17 05:30 RDW 16.7 % (11.5-14.5) H 06/06/17 05:30 Plt Count 180 K/uL (130-400) 06/06/17 05:30 MPV 8.3 fl (7.2-11.7) 06/06/17 05:30 Neut % (Auto) 54.3 % (50.0-75.0) 06/06/17 05:30 Lymph % (Auto) 30.1 % (20.0-40.0) 06/06/17 05:30 [place] % (Auto) 9.3 % (0.0-10.0) 06/06/17 05:30 Eos % (Auto) 5.5 % (0.0-4.0) H 06/06/17 05:30 Baso % (Auto) 0.8 % (0.0-2.0) 06/06/17 05:30 Neut # 3.6 K/uL (1.8-7.0) 06/06/17 05:30 Lymph # 2.0 K/uL (1.0-4.3) 06/06/17 05:30 [place] # 0.6 K/uL (0.0-0.8) 06/06/17 05:30 Eos # 0.4 K/uL (0.0-0.7) 06/06/17 05:30 Baso # 0.1 K/uL (0.0-0.2) 06/06/17 05:30 pO2 34 mm/Hg (30-55) 06/03/17 15:00 VBG pH 7.32 (7.32-7.43) 06/03/17 15:00 VBG pCO2 55 mmHg (40-60) 06/03/17 15:00 VBG HCO3 24.8 mmol/L 06/03/17 15:00 VBG Total CO2 30.0 mmol/L (22-28) H 06/03/17 15:00 VBG O2 Sat (Calc) 68.4 % (40-65) H 06/03/17 15:00 VBG Base Excess 1.1 mmol/L (0.0-2.0) 06/03/17 15:00 VBG Potassium 5.3 mmol/L (3.6-5.2) H 06/03/17 15:00 Sodium 134.0 mmol/L (132-148) 06/03/17 15:00 Chloride 103.0 mmol/L (98-107) 06/03/17 15:00 Glucose 229 mg/dL (65-105) H 06/03/17 15:00 Lactate 1.4 mmol/L (0.7-2.1) 06/03/17 15:00 FiO2 21.0 % 06/03/17 15:00 Sodium 139 mmol/l (132-148) 06/06/17 04:00 Potassium 4.6 MMOL/L (3.6-5.0) 06/06/17 04:00 Chloride 103 mmol/L (98-107) 06/06/17 04:00 Carbon Dioxide 31 mmol/L (22-30) H 06/06/17 04:00 Anion Gap 10 (10-20) 06/06/17 04:00 BUN 28 mg/dl (7-17) H 06/06/17 04:00 Creatinine 1.5 mg/dL (0.7-1.2) H 06/06/17 04:00 Est GFR ( Amer) 41 06/06/17 04:00 Est GFR (Non-Af Amer) 33 06/06/17 04:00 POC Glucose (mg/dL) 161 mg/dL (65-110) H 06/07/17 15:27 Random Glucose 239 mg/dL (65-105) H 06/06/17 04:00 Hemoglobin A1c 8.1 % (4.2-6.5) H 06/04/17 06:30 Calcium 9.1 mg/dL (8.4-10.2) 06/06/17 04:00 Total Bilirubin 0.4 mg/dl (0.2-1.3) 06/06/17 04:00 AST 24 U/L (14-36) 06/06/17 04:00 ALT 26 U/L (9-52) 06/06/17 04:00 Alkaline Phosphatase 114 U/L (38-126) 06/06/17 04:00 Total Protein 6.9 G/DL (6.3-8.2) 06/06/17 04:00 Albumin 3.5 g/dL (3.5-5.0) 06/06/17 04:00 Globulin 3.4 gm/dL (2.2-3.9) 06/06/17 04:00 Albumin/Globulin Ratio 1.0 (1.0-2.1) 06/06/17 04:00 Wfoav-1-Skcsvutsu 3.7 Relative % 06/05/17 06:30 Qfaty-6-Ycnnxonni 0.0 Relative % 06/05/17 06:30 Beta Globulins 15.1 Relative % 06/05/17 06:30 Gamma Globulins 25.5 Relative % 06/05/17 06:30 Triglycerides 222 mg/DL (0-149) H D 06/04/17 07:25 Cholesterol 177 mg/dL (0-199) 06/04/17 07:25 LDL Cholesterol Direct 87 mg/dL (0-129) 06/04/17 07:25 HDL Cholesterol 34 MG/DL (30-70) 06/04/17 07:25 Procalcitonin 0.06 NG/ML (0.19-0.49) L 06/03/17 18:45 Thyroxine (T4) 10.0 ug/dl (5.5-11.0) 06/04/17 07:25 TSH 3rd Generation 2.82 mIU/ML (0.46-4.68) 06/04/17 07:25 PTH Intact Whole Molec 113 pg/mL (14-64) H 06/05/17 17:00 Venous Blood Potassium 5.3 mmol/L (3.6-5.2) H 06/03/17 15:00 Urine Color Yellow (YELLOW) 06/03/17 14:55 Urine Clarity Turbid (Clear) 06/03/17 14:55 Urine pH 5.0 (5.0-8.0) 06/03/17 14:55 Ur Specific [place] 1.016 (1.003-1.030) 06/03/17 14:55 Urine Protein 100 mg/dL (NEGATIVE) 06/03/17 14:55 Urine Glucose (UA) Neg mg/dL (Normal) 06/03/17 14:55 Urine Ketones Negative mg/dL (NEGATIVE) 06/03/17 14:55 Urine Blood Negative (NEGATIVE) 06/03/17 14:55 Urine Nitrate Negative (NEGATIVE) 06/03/17 14:55 Urine Bilirubin Negative (NEGATIVE) 06/03/17 14:55 Urine Urobilinogen 2.0 mg/dL (0.2-1.0) H 06/03/17 14:55 Ur Leukocyte Esterase Mod [place]/uL (Negative) 06/03/17 14:55 Urine RBC (Auto) 22 /hpf (0-3) H 06/03/17 14:55 Urine Microscopic WBC 4648 /hpf (0-5) H 06/03/17 14:55 Ur Squamous Epith Cells 3 /hpf (0-5) 06/03/17 14:55 Amorphous Sediment Rare /ul (<OCC) H 06/03/17 14:55 Urine Bacteria Many (<OCC) H 06/03/17 14:55 Urine Osmolality 196 mosm/kg (300-1000) L 06/06/17 18:15 Ur Random Sodium 57 meq/L 06/06/17 18:15 Ur Random Potassium 9.5 mmol/L 06/06/17 18:15 Urine Creatinine 0.30 g/L 06/05/17 06:30 Ur Creatinine 24 Hour 0.74 g/24 h (0.63-2.50) 06/05/17 06:30 Ur Total Protein 24 Hr 713 mg/24 h (<150) H 06/05/17 06:30 Protein/Creat Ratio 24h 957 mg/g creat (</=84) H 06/05/17 06:30 Urine Total Protein 291 mg/L (50-240) H 06/05/17 06:30 Urine Albumin (PEP) 55.7 Relative % 06/05/17 06:30 Ur Protein Fractions See note 06/05/17 06:30 Gentamicin Trough 0.7 ug/mL (0.0-0.9) 06/06/17 05:30 - Date & Time of H&P Date of H&P: 06/04/17 Time of H&P: 11:00 Discharge Exam - Head Exam Head Exam: NORMAL INSPECTION Discharge Plan - Discharge Medications Prescriptions: Gentamicin 80 mg in 0.9% NS [Gentamicin IV 80 mg PREMIX] 80 mg IVPB QOTHERDAY # 4 bag - Follow Up Plan Condition: STABLE Disposition: REHAB FACILITY/REHAB UNIT Instructions: Urinary Tract Infection in Women (GEN), How To Wash Your Hands ( GEN)
== END 2017-06-07 17:39 | DRG 569 ==
LOC: H.ER 13:40 → H.ERHOLD 14:31 → H.MEDSURG1 16:53
PROVIDERS: ADMIT Internal Medicine Pulmonary Disease; ATTEND Internal Medicine Pulmonary Disease
DX: N39.0 Urinary tract infection, site not specified (principal); I50.23 Acute on chronic systolic (congestive) heart failure; N17.9 Acute kidney failure, unspecified; J44.9 Chronic obstructive pulmonary disease, unspecified; E11.42 Type 2 diabetes mellitus with diabetic polyneuropathy; E11.51 Type 2 diabetes mellitus with diabetic peripheral angiopathy without gangrene; E11.319 Type 2 diabetes mellitus with unspecified diabetic retinopathy without macular edema; E11.21 Type 2 diabetes mellitus with diabetic nephropathy; N18.9 Chronic kidney disease, unspecified; B96.1 Klebsiella pneumoniae [K. pneumoniae] as the cause of diseases classified elsewhere; E87.5 Hyperkalemia; T37.0X5A Adverse effect of sulfonamides, initial encounter; H54.42 Blindness, left eye, normal vision right eye; E11.65 Type 2 diabetes mellitus with hyperglycemia; E03.9 Hypothyroidism, unspecified; F41.9 Anxiety disorder, unspecified; I25.10 Atherosclerotic heart disease of native coronary artery without angina pectoris; E78.5 Hyperlipidemia, unspecified; E78.00 Pure hypercholesterolemia, unspecified; M19.90 Unspecified osteoarthritis, unspecified site; K29.70 Gastritis, unspecified, without bleeding; M51.16 Intervertebral disc disorders with radiculopathy, lumbar region; F32.9 Major depressive disorder, single episode, unspecified; D64.9 Anemia, unspecified; Z95.5 Presence of coronary angioplasty implant and graft; Z95.1 Presence of aortocoronary bypass graft; Z79.4 Long term (current) use of insulin; Z79.82 Long term (current) use of aspirin; Z88.0 Allergy status to penicillin

== ENCOUNTER 2017-06-07 14:02 | Inpatient (IN) | payer MEDICAID ==
[2017-06-07 17:55] VITALS: BMI 29.7
[2017-06-07] MEDS ORDERED: Acetaminophen-Codeine 300/30 mg Tab PO PRN (19:59)
[2017-06-07] MEDS ORDERED: Albuterol-Ipratrop 3 mg / 0.5 (3 ml) UD IH PRN (19:59)
[2017-06-08] MEDS: Levothyroxine 100 MCG TAB PO SCH ×2 (05:40→10:25)
[2017-06-08 07:55] LABS: HEMATOCRIT 30.5 % (34.0-47.0); MEAN CELL VOLUME 94.1 fl (81.0-99.0); MEAN CORPUSCULAR HEMOGLOBIN 30.8 pg (27.0-31.0); MEAN CORPUSCULAR HGB CONC 32.7 g/dL (33.0-37.0); RED CELL DISTRIBUTION WIDTH 16.7 % (11.5-14.5); WHITE BLOOD COUNT 7.3 K/uL (4.8-10.8)
[2017-06-08] MEDS: Patient's Own Med (Ranolazine [Ranexa] 1,000 MG) PO SCH ×2 (08:34→16:30)
[2017-06-08 08:36] LABS: BILIRUBIN,TOTAL 0.3 mg/dl (0.2-1.3); CALCIUM 8.7 mg/dL (8.4-10.2); POTASSIUM 4.3 MMOL/L (3.6-5.0); TOTAL PROTEIN 5.9 G/DL (6.3-8.2)
[2017-06-08] MEDS: Lactobacillus Acidophilus 500 MU Cap PO SCH ×2 (08:40→16:29)
[2017-06-08] MEDS ORDERED: Insulin Lispro Mix 75/25 100 units/ml (HumaLog) 10ml SC SCH (09:00)
[2017-06-08] MEDS ORDERED: Apap-Butalbital-Caffeine 325-50-40mg Tab PO PRN (12:08)
--- NOTE | 2017-06-08 13:19 | CP.PCM.PN ---
Subjective - Date & Time of Evaluation Date of Evaluation: 06/08/17 Time of Evaluation: 13:17 - Subjective Subjective: Mrs. Pederson was transferred from the floor to subacute rehabilitation with urinary tract infection and acute kidney injury which has been improving and recovering slowly. Her initial admission and the floor as [id number] y/o female with Hx/o recent recurrent UTIs, CAD/CABG,HTN,HLD,Hypothyroidism was admitted for UTI, As an outpatient Pt was treated for UTI with Bactrim. However results of C&S showed Klebsiella that was resistent to Bactrim Since then Pt hs developed Hypekalemia with Creat of 1.6 There is no Hx/o CKD Objective - Vital Signs/Intake and Output Vital Signs (last 24 hours): Temp Pulse Resp BP Pulse Ox 97.7 F 81 20 139/47 L 100 06/08/17 07:55 06/08/17 08:35 06/08/17 07:55 06/08/17 08:35 06/08/17 07:55 - Medications Medications: Current Medications Acetaminophen/Butalbital/Caffeine (Fioricet) 1 tab PO Q4 PRN PRN Reason: Headache Last Admin: 06/08/17 13:12 Dose: 1 tab Acetaminophen/Codeine Phosphate (Tylenol/Codeine 300 Mg/30 Mg) 1 tab PO Q8H PRN PRN Reason: Pain, severe (8-10) Albuterol/Ipratropium (Duoneb 3 Mg/0.5 Mg (3 Ml) Ud) 3 ml IH Q6H PRN PRN Reason: Shortness of Breath Alprazolam (Xanax) 0.25 mg PO HS PRN PRN Reason: Insomnia Stop: 06/14/17 20:00 Ascorbic Acid (Vitamin C 500 Mg Tab) 1,000 mg PO BID [facility] Last Admin: 06/08/17 08:34 Dose: 1,000 mg Aspirin (Ecotrin) 81 mg PO DAILY [facility] Last Admin: 06/08/17 08:36 Dose: 81 mg Atorvastatin Calcium (Lipitor) 40 mg PO HS [facility] Last Admin: 06/07/17 21:25 Dose: 40 mg Carvedilol (Coreg) 3.125 mg PO DAILY [facility] Last Admin: 06/08/17 08:35 Dose: 3.125 mg Docusate Sodium (Colace) 200 mg PO DAILY [facility] Last Admin: 06/08/17 08:34 Dose: 200 mg Furosemide (Lasix) 20 mg PO Q72H [facility] Last Admin: 06/08/17 08:35 Dose: 20 mg Heparin Sodium (Porcine) (Heparin) 5,000 units SC Q12 [facility] PRN Reason: Protocol Last Admin: 06/08/17 08:36 Dose: 5,000 units Home Med (Ranolazine [Ranexa]) 1,000 mg PO BID [facility] Last Admin: 06/08/17 08:34 Dose: 1,000 mg Insulin Lispro Protam/Lispro Human (Humalog Mix 75/25) 25 units SC DAILY [facility] Last Admin: 06/08/17 08:37 Dose: 25 units Lactobacillus Acidophilus (Bacid Acidophilus) 1 cap PO BID [facility] Last Admin: 06/08/17 08:40 Dose: 1 cap Lactulose (Enulose) 20 gm PO DAILY [facility] Last Admin: 06/08/17 08:36 Dose: 20 gm Levothyroxine Sodium (Synthroid) 100 mcg PO DAILY [facility] Last Admin: 06/08/17 10:25 Dose: Not Given Loratadine (Claritin) 10 mg PO DAILY [facility] Last Admin: 06/08/17 08:36 Dose: 10 mg Meclizine HCl (Antivert) 25 mg PO Q6H PRN PRN Reason: Dizziness Nitroglycerin (Nitrostat Sl Tab) 0.4 mg SL Q5MIN PRN PRN Reason: chest pain Nystatin (Nystop Topical Powder) 1 applic TOP TID [facility] Last Admin: 06/08/17 13:13 Dose: 1 applic - Labs Labs: 06/08/17 07:30 06/08/17 07:30 - Constitutional Appears: No Acute Distress - Respiratory Exam Respiratory Exam: NORMAL BREATHING PATTERN. absent: Chest Wall Tenderness - Cardiovascular Exam Cardiovascular Exam: absent: Rubs - Extremities Exam Extremities Exam: absent: Calf Tenderness - Back Exam Back Exam: absent: CVA tenderness (L), CVA tenderness (R) - Neurological Exam Neurological Exam: Alert Assessment and Plan (1) Acute kidney failure, unspecified Assessment & Plan: Kidney function continued to improve patient is what appeared to be recovering from acute kidney injury Continue monitoring Status: Acute
--- NOTE | 2017-06-08 14:38 | CP.PCM.HP ---
History of Present Illness - History of Present Illness History of Present Illness: cc: dysuria This is a 77-year-old female with a past medical history significant for recurrent urinary tract infections, coronary artery disease status post CABG, hypertension, hyperlipidemia, and hypothyroidism. The patient was diagnosed with a urinary tract infection 3 weeks prior to admission on 06/03/2017 and was given Bactrim at that time. However the patient failed outpatient therapy and was admitted to the hospital for IV anti-biotics and further management on 06/03. She improved during her stay and was transferred to TCU on 06/07/2017 for further IV antibiotics. Today, the patient denies any fever, chills, weakness, nausea, vomiting, diarrhea, or constipation. She is complaining of occipital headache, along with some mild suprapubic pain and dysuria. The patient is to complete 7 days of IV Gentamycin in TCU. Present on Admission - Present on Admission Any Indicators Present on Admission: No Review of Systems - Constitutional Constitutional: Headache. absent: Anorexia, Chills, Fever, Frequent Falls - EENT Eyes: absent: Diplopia, Discharge, Loss of Peripheral Vision, Requires Corrective Lenses Nose/Mouth/Throat: absent: Nasal Congestion, Post Nasal Drip, Sinus Pressure, Bleeding Gums - Respiratory Respiratory: absent: Cough, Dyspnea, Wheezing - Gastrointestinal Gastrointestinal: absent: Abdominal Pain, Belching, Change in Stool Character, Cramping, Diarrhea, Dyspepsia, Excessive Flatus - Genitourinary Genitourinary: Difficulty Urinating, Dysuria. absent: Change in Urinary Stream , Flank Pain, Hematuria - Musculoskeletal Musculoskeletal: absent: Joint Swelling, Limited Range of Motion, Myalgias, Neck Pain, Numbness - Neurological Neurological: Vertigo. absent: Abnormal Gait, Abnormal Hearing, Behavioral Changes, Burning Sensations, Confusion, Numbness, Focal Weakness - Endocrine Endocrine: absent: Deepening of Voice, Excessive Sweating, Heat Intolorance, Increase in Ring/Shoe/Hat Size Past Patient History - Infectious Disease Hx of Infectious Diseases: None - Past Medical History & Family History Past Medical History?: Yes - Past Social History Smoking Status: Never Smoked - CARDIAC Hx Cardiac Disorders: Yes Hx Congestive Heart Failure: Yes Hx Hypercholesterolemia: Yes Hx Hypertension: Yes Hx Pacemaker: No Hx Peripheral Edema: Yes - PULMONARY Hx Respiratory Disorders: Yes Hx Asthma: Yes Hx Bronchitis: Yes Hx Chronic Obstructive Pulmonary Disease (COPD): Yes Hx Pneumonia: Yes - NEUROLOGICAL Hx Neurological Disorder: No - HEENT Hx HEENT Problems: Yes (wear eyeglasses) Other/Comment: Hard of hear R ear., left eye blind - RENAL Hx Chronic Kidney Disease: No - ENDOCRINE/METABOLIC Hx Endocrine Disorders: Yes Hx Hypothyroidism: Yes - HEMATOLOGICAL/ONCOLOGICAL Hx Blood Disorders: Yes Hx AIDS: No Hx Anemia: Yes Hx Human Immunodeficiency Virus (HIV): No - INTEGUMENTARY Hx Dermatological Problems: No - MUSCULOSKELETAL/RHEUMATOLOGICAL Hx Musculoskeletal Disorders: Yes Hx Arthritis: Yes Hx Back Pain: Yes Hx Falls: Yes Hx Rheumatoid Arthritis: No - GASTROINTESTINAL Hx Gastrointestinal Disorders: Yes Hx Gastritis: Yes - GENITOURINARY/GYNECOLOGICAL Hx Genitourinary Disorders: Yes Hx Incontinence: Yes Hx Urinary Tract Infection: Yes - PSYCHIATRIC Hx Psychophysiologic Disorder: Yes Hx Anxiety: Yes Hx Depression: Yes Hx Substance Use: No - SURGICAL HISTORY Hx Surgeries: Yes Hx Cholecystectomy: Yes Hx Coronary Artery Bypass Graft: Yes (x4) Hx Coronary Stent: Yes Other/Comment: left foot tma - ANESTHESIA Hx Anesthesia: Yes Hx Anesthesia Reactions: No Hx Malignant Hyperthermia: No Meds Allergies/Adverse Reactions: Allergies Allergy/AdvReac Type Severity Reaction Status Date / Time kiwi Allergy Mild RASH Verified 06/07/17 17:54 morphine Allergy Mild RASH Verified 06/07/17 17:54 Penicillins Allergy Mild RASH Verified 06/07/17 17:54 pineapple Allergy Mild RASH Verified 06/07/17 17:54 watermelon Allergy Mild RASH Verified 06/07/17 17:54 Physical Exam - Additional Findings Additional findings: EXAM: Vitals stable and reviewed GEN: WDWN, alert, chronically ill-appearing,cooperative HEENT: NCAT, PERRL, EOMI Neck: supple, no lymphadenopathy CARDIO: +S1S2, RRR, NO M/R/G LUNG: CTAB, NO W/R/R ABD: soft, NT, ND, no masses, no HSM EXT: no edema, pedal pulses Neuro: AAOx3, Strength equal, bilateral UE/LE Psych: normal mood, normal affect Results - Vital Signs Recent Vital Signs: Last Vital Signs Temp 97.7 F 06/08/17 07:55 Pulse 81 06/08/17 08:35 Resp 20 06/08/17 07:55 BP 139/47 L 06/08/17 08:35 Pulse Ox 100 06/08/17 07:55 - Labs Result Diagrams: 06/08/17 07:30 06/08/17 07:30 Labs: Laboratory Results - last 24 hr 06/07/17 06/08/17 06/08/17 21:16 05:24 07:30 WBC RBC Hgb Hct MCV MCH MCHC RDW Plt Count Sodium 142 Potassium 4.3 Chloride 103 Carbon Dioxide 31 H Anion Gap 12 BUN 29 H Creatinine 1.4 H Est GFR ( Amer) 44 Est GFR (Non-Af Amer) 36 POC Glucose (mg/dL) 145 H 178 H Random Glucose 147 H Calcium 8.7 Total Bilirubin 0.3 AST 21 ALT 28 Alkaline Phosphatase 110 Total Protein 5.9 L Albumin 3.0 L Globulin 2.9 Albumin/Globulin Ratio 1.0 06/08/17 06/08/17 06/08/17 07:30 09:36 10:45 WBC 7.3 RBC 3.25 L Hgb 10.0 L Hct 30.5 L MCV 94.1 MCH 30.8 MCHC 32.7 L RDW 16.7 H Plt Count 171 Sodium Potassium Chloride Carbon Dioxide Anion Gap BUN Creatinine Est GFR ( Amer) Est GFR (Non-Af Amer) POC Glucose (mg/dL) 290 H 304 H Random Glucose Calcium Total Bilirubin AST ALT Alkaline Phosphatase Total Protein Albumin Globulin Albumin/Globulin Ratio Assessment & Plan - Assessment and Plan (Free Text) Plan: 1) Complicated UTI due to Klebsiella 2) Diabetes mellitus with hyperglycemia 3) Acute kidney injury, improving 4) CHF 6) Hypothyroidism 7) COPD 8) HX of CABG 9) Anxiety 10)DVT prophylaxis - continue Gentamycin for total of 7 days as per ID - Urology and Nephrology consultations appreciated - Endocrinology consultation - Infectious disease consultation - Continue Lasix 20 mg po q 72 hours - Continue ASA - Coreg 3.125 mg po daily - Continue insulin regimen - Continue Synthroid - Added Fioricet PRN for headache - Lipitor 40 mg po HS - DVT prophylaxis with heparin - Date & Time Date: 06/08/17 Time: 10:10
[2017-06-08] MEDS: Insulin Lispro Mix 75/25 100 units/ml (HumaLog) 10ml SC SCH (16:14)
[2017-06-08] MEDS: Insulin Lispro (humaLOG) 100 Units/ml Inj SC SCH ×2 (16:15→22:28)
--- NOTE | 2017-06-08 23:47 | PN ---
ENDOCRINOLOGY FOLLOWUP NOTE LOCATION: She is in room #706, TCU. This is a 77-year-old female with Klebsiella UTI and bacteremia and is now being referred for diabetic evaluation and management because of persistent hyperglycemic accelerations as noted thereof. Her glycemic levels are fluctuating today as noted with glucose values ranging from 290 to 304 mg/dL. The latest chemistry showed a BUN of 29, sodium 142, potassium 4.3, chloride 103, CO2 of 31, glucose 147 and creatinine 1.4. So, at this time, we will modify her current insulin regimen and change the Humalog 75/25, 30 units a.c. breakfast and 20 units a.c. dinner, to start today. We will also modify the coverage scale to kerry hypoglycemia and detailed orders have been given. We will also repeat thyroid studies and adjust her levothyroxine dose accordingly. For now, we will continue the levothyroxine at 100 mcg once daily as ordered. We will obtain serum chemistries and supplement accordingly as needed. We will follow. Nicolette Francis MD
[2017-06-09] MEDS: Levothyroxine 100 MCG TAB PO SCH (05:54)
[2017-06-09] MEDS: Insulin Lispro (humaLOG) 100 Units/ml Inj SC SCH ×4 (06:53→21:47)
[2017-06-09] MEDS: Patient's Own Med (Ranolazine [Ranexa] 1,000 MG) PO SCH ×2 (08:42→16:25)
[2017-06-09] MEDS: Insulin Lispro Mix 75/25 100 units/ml (HumaLog) 10ml SC SCH ×4 (08:45→16:25)
[2017-06-09] MEDS: Lactobacillus Acidophilus 500 MU Cap PO SCH ×2 (08:46→16:22)
--- NOTE | 2017-06-09 12:46 | CP.PCM.CON ---
History of Present Illness - History of Present Illness History of Present Illness: 7-year-old female with a past medical history significant for recurrent urinary tract infections, coronary artery disease status post CABG, hypertension, hyperlipidemia, and hypothyroidism. The patient was diagnosed with a urinary tract infection 3 weeks prior to admission on 06/03/2017 and was given Bactrim at that time. However the patient failed outpatient therapy and was admitted to the hospital for IV anti-biotics and further management on 06/03/2017. She improved during her stay and was transferred to TCU on 06/07/2017 for further IV antibiotics patient allergic to PCN and has CKD Renal on board IV Genta to continue Needs eval Review of Systems - Review of Systems Systems not reviewed;Unavailable: Language Barrier - Constitutional Constitutional: As Per HPI - EENT Eyes: absent: As Per HPI, Blind Spots, Blurred Vision, Change in Vision, Decreased Night Vision, Diplopia, Discharge, Dry Eye, Exophthalmos, Floaters, Irritation, Itchy Eyes, Loss of Peripheral Vision, Pain, Photophobia, Requires Corrective Lenses, Sees Flashes, Spots in Vision, Tunnel Vision, Other Visual Disturbances, Loss of Vision, Other Ears: absent: As Per HPI, Decreased Hearing, Ear Discharge, Ear Pain, Tinnitus, Abnormal Hearing, Disequilibrium, Dizziness, Other Nose/Mouth/Throat: absent: As Per HPI, Epistaxis, Nasal Congestion, Nasal Discharge, Nasal Obstruction, Nasal Trauma, Nose Pain, Post Nasal Drip, Sinus Pain, Sinus Pressure, Bleeding Gums, Change in Voice, Dental Pain, Dry Mouth, Dysphagia, Halitosis, Hoarsness, Lip Swelling, Mouth Lesions, Mouth Pain, Odynophagia, Sore Throat, Throat Swelling, Tongue Swelling, Facial Pain, Neck Pain, Neck Mass, Other - Breasts Breasts: absent: As Per HPI, Change in Shape, Mass, Pain, Nipple Discharge, Nipple Inversion, Skin Changes, Swelling, Other - Cardiovascular Cardiovascular: absent: As Per HPI, Acrocyanosis, Chest Pain, Chest Pain at Rest , Chest Pain with Activity, Claudication, Diaphoresis, Dyspnea, Dyspnea on Exertion, Edema, Irregular Heart Rhythm, Pain Radiating to Arm/Neck/Jaw, Leg Edema, Leg Ulcers, Lightheadedness, Orthopnea, Palpitations, Paroxysmal Nocturnal Dyspnea, Pedal Edema, Radiating Pain, Rapid Heart Rate, Slow Heart Rate, Syncope, Other - Respiratory Respiratory: As Per HPI - Gastrointestinal Gastrointestinal: absent: As Per HPI, Abdominal Pain, Belching, Bloating, Change in Bowel Habits, Change in Stool Character, Coffee Ground Emesis, Constipation, Cramping, Diarrhea, Dyspepsia, Dysphagia, Early Satiety, Excessive Flatus, Fecal Incontinence, Heartburn, Hematemesis, Hematochezia, Loose Stools, Melena, Nausea, Odynophagia, Temesmus, Vomiting, Other - Genitourinary Genitourinary: absent: As Per HPI, Change in Urinary Stream, Difficulty Urinating, Dysuria, Flank Pain, Hematuria, Pyuria, Nocturia, Urinary Incontinence, Urinary Frequency, Urinary Hesitance, Urinary Urgency, Voiding Freq/Small Amts, Freq UTI, Hx Renal/Bladder Calculi, Hx /Renal Surgery, Bladder Distension, Other - Reproductive: Female Reproductive:Female: absent: As Per HPI, Amenorrhea, Amenorrhea/ Control, Currently Menstual, Cycle <21 Days, Cycle >35 Days, Cycle Variable, Menses 1-7 Days, Menses >/= 8 Days, Menses Variable, Cycle > 4 Weeks Between, No Menses for 6 Months, Heavy Menses, Light Menses, Normal Menses, Spotting Between Cycles , S/P Hysterectomy, Menopausal, Post Menopausal, Premenarche, Abnormal Vaginal Bleeding, Dysmenorrhea, Dyspareunia, Genital Lesions, Genital Pruritis, Pelvic Pain, Prolapse Symptoms, Sexual Dysfunction, Vaginal Discharge, Vaginal Dryness , Vaginal Odor, Vaginal Pruritis, Other - Menstruation Menstruation: absent: As Per HPI, Amenorrhea, Amenorrhea/ Control, Currently Menstual, Cycle <21 Days, Cycle >35 Days, Cycle Variable, Menses 1-7 Days, Menses >/= 8 Days, Menses Variable, Cycle > 4 Weeks Between, No Menses for 6 Months, Heavy Menses, Light Menses, Normal Menses, Spotting Between Cycles , S/P Hysterectomy, Menopausal, Post Menopausal, Premenarche, Abnormal Vaginal Bleeding, Dysmenorrhea, Other - Musculoskeletal Musculoskeletal: absent: As Per HPI, Abnormal Gait, Arthralgias, Atrophy, Back Pain, Deformity, Joint Swelling, Limited Range of Motion, Loss of Height, Muscle Cramps, Muscle Weakness, Myalgias, Neck Pain, Numbness, Radiating Pain into Limb, Stiffness, Tingling, Other - Integumentary Integumentary: absent: As Per HPI, Acne, Alopecia, Bleeding Lesions, Change in Hair, Change in Nails, Change in Pigmentation, Changing Lesions, Dry Skin, Erythema, Furuncle, Hirsutism, Lesions, New Lesions, Non-Healing Lesions, Photosensitivity, Pruritus, Rash, Skin Pain, Skin Ulcer, Sores, Striae, Swelling , Unusual Bruising, Wounds, Jaundice, Other - Neurological Neurological: absent: As Per HPI, Abnormal Gait, Abnormal Hearing, Abnormal Movements, Abnormal Speech, Behavioral Changes, Burning Sensations, Confusion, Convulsions, Disequilibrium, Dizziness, Numbness, Focal Weakness, Frequent Falls , Headaches, Lack of Coordination, Loss of Vision, Memory Loss, Paresthesias, Radicular Pain, Restless Legs, Sensory Deficit, Syncope, Tingling, Tremor, Vertigo, Weakness, Other Visual Disturbances, Other - Psychiatric Psychiatric: absent: As Per HPI, Abnormal Sleep Pattern, Anhedonia, Anxiety, Auditory Hallucinations, Behavioral Changes, Change in Appetite, Change in Libido, Confusion, Depression, Difficulty Concentrating, Hallucinations, Homicidal Ideation, Hopelessness, Irritability, Memory Loss, Mood Swings, Panic Attacks, Paranoia, Suicidal Ideation, Visual Hallucinations, Tactile Hallucinations, Other - Endocrine Endocrine: absent: As Per HPI, Change in Body Appearance, Change in Libido, Cold Intolorance, Deepening of Voice, Excessive Sweating, Fatigue, Flushing, Heat Intolorance, Increase in Ring/Shoe/Hat Size, Palpitations, Polydipsia, Polyphagia, Polyuria, Other - Hematologic/Lymphatic Hematologic: absent: As Per HPI, Easy Bleeding, Easy Bruising, Lymphadenopathy, Other Past Patient History - Infectious Disease Hx of Infectious Diseases: None - Past Medical History & Family History Past Medical History?: Yes - Past Social History Smoking Status: Never Smoked - CARDIAC Hx Cardiac Disorders: Yes Hx Congestive Heart Failure: Yes Hx Hypercholesterolemia: Yes Hx Hypertension: Yes - PULMONARY Hx Chronic Obstructive Pulmonary Disease (COPD): Yes Hx Pneumonia: Yes - NEUROLOGICAL Hx Neurological Disorder: No - HEENT Hx HEENT Problems: Yes (wear eyeglasses) Other/Comment: Hard of hear R ear., left eye blind - RENAL Hx Chronic Kidney Disease: No - ENDOCRINE/METABOLIC Hx Hypothyroidism: Yes - HEMATOLOGICAL/ONCOLOGICAL Hx Blood Disorders: Yes Hx AIDS: No Hx Anemia: Yes Hx Human Immunodeficiency Virus (HIV): No - INTEGUMENTARY Hx Dermatological Problems: No - MUSCULOSKELETAL/RHEUMATOLOGICAL Hx Arthritis: Yes Hx Rheumatoid Arthritis: No - GASTROINTESTINAL Hx Gastrointestinal Disorders: Yes Hx Gastritis: Yes - GENITOURINARY/GYNECOLOGICAL Hx Genitourinary Disorders: Yes Hx Incontinence: Yes Hx Urinary Tract Infection: Yes - PSYCHIATRIC Hx Psychophysiologic Disorder: Yes Hx Anxiety: Yes Hx Depression: Yes Hx Substance Use: No - SURGICAL HISTORY Hx Surgeries: Yes Hx Cholecystectomy: Yes Hx Coronary Artery Bypass Graft: Yes (x4) Hx Coronary Stent: Yes Other/Comment: left foot tma - ANESTHESIA Hx Anesthesia: Yes Hx Anesthesia Reactions: No Hx Malignant Hyperthermia: No Meds Allergies/Adverse Reactions: Allergies Allergy/AdvReac Type Severity Reaction Status Date / Time kiwi Allergy Mild RASH Verified 06/07/17 17:54 morphine Allergy Mild RASH Verified 06/07/17 17:54 Penicillins Allergy Mild RASH Verified 06/07/17 17:54 pineapple Allergy Mild RASH Verified 06/07/17 17:54 watermelon Allergy Mild RASH Verified 06/07/17 17:54 - Medications Medications: Current Medications Acetaminophen/Butalbital/Caffeine (Fioricet) 1 tab PO Q4 PRN PRN Reason: Headache Last Admin: 06/08/17 13:12 Dose: 1 tab Acetaminophen/Codeine Phosphate (Tylenol/Codeine 300 Mg/30 Mg) 1 tab PO Q8H PRN PRN Reason: Pain, severe (8-10) Albuterol/Ipratropium (Duoneb 3 Mg/0.5 Mg (3 Ml) Ud) 3 ml IH Q6H PRN PRN Reason: Shortness of Breath Alprazolam (Xanax) 0.25 mg PO HS PRN PRN Reason: Insomnia Stop: 06/14/17 20:00 Ascorbic Acid (Vitamin C 500 Mg Tab) 1,000 mg PO BID [facility] Last Admin: 06/09/17 08:43 Dose: 1,000 mg Aspirin (Ecotrin) 81 mg PO DAILY [facility] Last Admin: 06/09/17 08:44 Dose: 81 mg Atorvastatin Calcium (Lipitor) 40 mg PO HS [facility] Last Admin: 06/08/17 22:32 Dose: 40 mg Carvedilol (Coreg) 3.125 mg PO DAILY [facility] Last Admin: 06/09/17 08:44 Dose: 3.125 mg Docusate Sodium (Colace) 200 mg PO DAILY [facility] Last Admin: 06/09/17 08:43 Dose: 200 mg Furosemide (Lasix) 20 mg PO Q72H [facility] Last Admin: 06/08/17 08:35 Dose: 20 mg Heparin Sodium (Porcine) (Heparin) 5,000 units SC Q12 [facility] PRN Reason: Protocol Last Admin: 06/09/17 08:44 Dose: 5,000 units Home Med (Ranolazine [Ranexa]) 1,000 mg PO BID [facility] Last Admin: 06/09/17 08:42 Dose: 1,000 mg Insulin Human Lispro (Humalog) 0 units SC ACHS [facility] PRN Reason: Protocol Last Admin: 06/09/17 12:41 Dose: Not Given Insulin Lispro Protam/Lispro Human (Humalog Mix 75/25) 30 units SC ACB [facility] Last Admin: 06/09/17 11:20 Dose: 30 units Insulin Lispro Protam/Lispro Human (Humalog Mix 75/25) 20 units SC ACD [facility] Last Admin: 06/08/17 16:14 Dose: 20 units Lactobacillus Acidophilus (Bacid Acidophilus) 1 cap PO BID [facility] Last Admin: 06/09/17 08:46 Dose: 1 cap Lactulose (Enulose) 20 gm PO DAILY [facility] Last Admin: 06/09/17 08:44 Dose: 20 gm Levothyroxine Sodium (Synthroid) 100 mcg PO DAILY@0630 [facility] Last Admin: 06/09/17 05:54 Dose: 100 mcg Loratadine (Claritin) 10 mg PO DAILY [facility] Last Admin: 06/09/17 08:44 Dose: 10 mg Meclizine HCl (Antivert) 25 mg PO Q6H PRN PRN Reason: Dizziness Nitroglycerin (Nitrostat Sl Tab) 0.4 mg SL Q5MIN PRN PRN Reason: chest pain Nystatin (Nystop Topical Powder) 1 applic TOP TID [facility] Last Admin: 06/09/17 12:42 Dose: 1 applic Physical Exam - Constitutional Appears: Non-toxic, Chronically Ill - Head Exam Head Exam: ATRAUMATIC, NORMOCEPHALIC - Eye Exam Eye Exam: PERRL - ENT Exam ENT Exam: Mucous Membranes Dry, Normal External Ear Exam - Neck Exam Neck exam: Negative for: Lymphadenopathy, Thyromegaly - Respiratory Exam Respiratory Exam: Decreased Breath Sounds, Clear to Auscultation Bilateral - Cardiovascular Exam Cardiovascular Exam: REGULAR RHYTHM - GI/Abdominal Exam GI & Abdominal Exam: Diminished Bowel Sounds, Soft. absent: Tenderness - Rectal Exam Rectal Exam: Deferred - Exam Exam: NORMAL INSPECTION - Extremities Exam Extremities exam: Positive for: pedal pulses present. Negative for: calf tenderness, pedal edema, tenderness - Back Exam Back exam: absent: CVA tenderness (L), CVA tenderness (R), paraspinal tenderness - Neurological Exam Neurological exam: Alert, CN II-XII Intact, Oriented x3, Reflexes Normal - Psychiatric Exam Psychiatric exam: Normal Mood - Skin Skin Exam: Dry, Intact Results - Vital Signs Recent Vital Signs: Last Vital Signs Temp 98.1 F 06/09/17 08:06 Pulse 89 06/09/17 08:44 Resp 18 06/09/17 08:06 BP 129/60 06/09/17 08:44 Pulse Ox 100 06/09/17 08:06 - Labs Result Diagrams: 06/08/17 07:30 06/08/17 07:30 Labs: Laboratory Results - last 24 hr 06/08/17 06/08/17 06/08/17 07:30 16:08 20:53 POC Glucose (mg/dL) 364 H 99 Gentamicin Trough 0.6 06/09/17 06/09/17 05:16 09:53 POC Glucose (mg/dL) 80 209 H Gentamicin Trough Assessment & Plan (1) Acute kidney failure, unspecified Status: Acute (2) Acute kidney injury superimposed on chronic kidney disease Status: Acute (3) CHF (congestive heart failure) Status: Acute (4) Chr obstructive pulmonary disease w/ acute lower respiratory infxn Status: Acute (5) Chronic urinary tract infection Status: Acute Priority: High (6) Urinary retention Status: Acute (7) Urinary tract infection Status: Acute - Assessment and Plan (Free Text) Assessment: renal function improving on IV antibiotics cont same will monitor genta levels consider eval and follow up
[2017-06-09] MEDS ORDERED: Gentamicin 80mg/50ml NS 80 MG/50 ML BAG IVPB STA (12:48)
--- NOTE | 2017-06-09 16:10 | CP.PCM.PN ---
Subjective - Date & Time of Evaluation Date of Evaluation: 06/09/17 Time of Evaluation: 16:09 - Subjective Subjective: No new events reported Patient seen and the subacute rehabilitation Vital signs stable Blood work reviewed serum creatinine stable Patient receiving antibiotics as recommended Suggest to adjust to the renal dose Objective - Vital Signs/Intake and Output Vital Signs (last 24 hours): Temp Pulse Resp BP Pulse Ox 97.0 F L 74 20 128/58 L 99 06/09/17 15:52 06/09/17 15:52 06/09/17 15:52 06/09/17 15:52 06/09/17 15:52 - Medications Medications: Current Medications Acetaminophen/Butalbital/Caffeine (Fioricet) 1 tab PO Q4 PRN PRN Reason: Headache Last Admin: 06/08/17 13:12 Dose: 1 tab Acetaminophen/Codeine Phosphate (Tylenol/Codeine 300 Mg/30 Mg) 1 tab PO Q8H PRN PRN Reason: Pain, severe (8-10) Albuterol/Ipratropium (Duoneb 3 Mg/0.5 Mg (3 Ml) Ud) 3 ml IH Q6H PRN PRN Reason: Shortness of Breath Alprazolam (Xanax) 0.25 mg PO HS PRN PRN Reason: Insomnia Stop: 06/14/17 20:00 Ascorbic Acid (Vitamin C 500 Mg Tab) 1,000 mg PO BID [facility] Last Admin: 06/09/17 08:43 Dose: 1,000 mg Aspirin (Ecotrin) 81 mg PO DAILY [facility] Last Admin: 06/09/17 08:44 Dose: 81 mg Atorvastatin Calcium (Lipitor) 40 mg PO HS [facility] Last Admin: 06/08/17 22:32 Dose: 40 mg Carvedilol (Coreg) 3.125 mg PO DAILY [facility] Last Admin: 06/09/17 08:44 Dose: 3.125 mg Docusate Sodium (Colace) 200 mg PO DAILY [facility] Last Admin: 06/09/17 08:43 Dose: 200 mg Furosemide (Lasix) 20 mg PO Q72H [facility] Last Admin: 06/08/17 08:35 Dose: 20 mg Heparin Sodium (Porcine) (Heparin) 5,000 units SC Q12 [facility] PRN Reason: Protocol Last Admin: 06/09/17 08:44 Dose: 5,000 units Home Med (Ranolazine [Ranexa]) 1,000 mg PO BID [facility] Last Admin: 06/09/17 08:42 Dose: 1,000 mg Insulin Human Lispro (Humalog) 0 units SC ACHS [facility] PRN Reason: Protocol Last Admin: 06/09/17 12:41 Dose: Not Given Insulin Lispro Protam/Lispro Human (Humalog Mix 75/25) 30 units SC ACB [facility] Last Admin: 06/09/17 11:20 Dose: 30 units Insulin Lispro Protam/Lispro Human (Humalog Mix 75/25) 20 units SC ACD [facility] Last Admin: 06/08/17 16:14 Dose: 20 units Lactobacillus Acidophilus (Bacid Acidophilus) 1 cap PO BID [facility] Last Admin: 06/09/17 08:46 Dose: 1 cap Lactulose (Enulose) 20 gm PO DAILY [facility] Last Admin: 06/09/17 08:44 Dose: 20 gm Levothyroxine Sodium (Synthroid) 100 mcg PO DAILY@0630 [facility] Last Admin: 06/09/17 05:54 Dose: 100 mcg Loratadine (Claritin) 10 mg PO DAILY [facility] Last Admin: 06/09/17 08:44 Dose: 10 mg Meclizine HCl (Antivert) 25 mg PO Q6H PRN PRN Reason: Dizziness Nitroglycerin (Nitrostat Sl Tab) 0.4 mg SL Q5MIN PRN PRN Reason: chest pain Nystatin (Nystop Topical Powder) 1 applic TOP TID [facility] Last Admin: 06/09/17 12:42 Dose: 1 applic - Labs Labs: 06/08/17 07:30 06/08/17 07:30 Assessment and Plan (1) Acute kidney failure, unspecified Status: Acute
--- NOTE | 2017-06-09 21:31 | PN ---
ENDO FOLLOWUP NOTE LOCATION: In TCU, room 706. SUBJECTIVE: This is a 77-year-old female with recent uncontrolled type 2 insulin-requiring diabetes with recent hyperglycemic accelerations and is now being followed closely for metabolic management. She is also undergoing IV antibiotic therapy for resistant UTI as noted. Her glucose values today have ranged from 80 to 177 and 209 mg/dL. It was 99 to 364 at bedtime last night. The latest chemistries showed a BUN of 29, sodium 142, potassium 4.3, chloride 103, CO2 of 31, glucose 147 and creatinine 1.4. So at this time, we will continue the modified basal and premixed insulin regimen to allow for dose equilibration. We will continue the Humalog 75/25 given as 30 units a.c. breakfast and 20 units a.c. dinner as ordered. We will continue the low-dose correction scale using Humalog insulin as given. We will obtain serial chemistries and supplement accordingly needed. We will follow with you. Nicolette Francis MD
[2017-06-10] MEDS: Levothyroxine 100 MCG TAB PO SCH (06:14)
[2017-06-10] MEDS: Insulin Lispro (humaLOG) 100 Units/ml Inj SC SCH ×4 (06:51→21:50)
[2017-06-10] MEDS: Insulin Lispro Mix 75/25 100 units/ml (HumaLog) 10ml SC SCH ×3 (08:14→17:35)
[2017-06-10] MEDS: Patient's Own Med (Ranolazine [Ranexa] 1,000 MG) PO SCH ×2 (09:31→17:34)
[2017-06-10] MEDS: Lactobacillus Acidophilus 500 MU Cap PO SCH ×2 (09:31→17:29)
--- NOTE | 2017-06-10 11:27 | CP.PCM.PN ---
Subjective - Date & Time of Evaluation Date of Evaluation: 06/10/17 Time of Evaluation: 11:26 - Subjective Subjective: Patient and bed Appeared to be comfortable and the daughter at the bedside Kidney function stable and continued to improve slowly The plan To repeat BNP tomorrow and follow-up on kidney function Objective - Vital Signs/Intake and Output Vital Signs (last 24 hours): Temp Pulse Resp BP Pulse Ox 97.9 F 80 20 154/68 H 99 06/10/17 07:56 06/10/17 07:56 06/10/17 07:56 06/10/17 09:33 06/10/17 07:56 - Medications Medications: Current Medications Acetaminophen/Butalbital/Caffeine (Fioricet) 1 tab PO Q4 PRN PRN Reason: Headache Last Admin: 06/08/17 13:12 Dose: 1 tab Acetaminophen/Codeine Phosphate (Tylenol/Codeine 300 Mg/30 Mg) 1 tab PO Q8H PRN PRN Reason: Pain, severe (8-10) Albuterol/Ipratropium (Duoneb 3 Mg/0.5 Mg (3 Ml) Ud) 3 ml IH Q6H PRN PRN Reason: Shortness of Breath Alprazolam (Xanax) 0.25 mg PO HS PRN PRN Reason: Insomnia Stop: 06/14/17 20:00 Last Admin: 06/09/17 22:30 Dose: 0.25 mg Ascorbic Acid (Vitamin C 500 Mg Tab) 1,000 mg PO BID [facility] Last Admin: 06/10/17 09:31 Dose: 1,000 mg Aspirin (Ecotrin) 81 mg PO DAILY [facility] Last Admin: 06/10/17 09:33 Dose: 81 mg Atorvastatin Calcium (Lipitor) 40 mg PO HS [facility] Last Admin: 06/09/17 21:31 Dose: 40 mg Carvedilol (Coreg) 3.125 mg PO DAILY [facility] Last Admin: 06/10/17 09:33 Dose: 3.125 mg Clotrimazole (Lotrimin Af 1%) 1 applic TOP BID [facility] Last Admin: 06/10/17 09:34 Dose: 1 u Docusate Sodium (Colace) 200 mg PO DAILY [facility] Last Admin: 06/10/17 09:33 Dose: 200 mg Furosemide (Lasix) 20 mg PO Q72H [facility] Last Admin: 06/08/17 08:35 Dose: 20 mg Heparin Sodium (Porcine) (Heparin) 5,000 units SC Q12 [facility] PRN Reason: Protocol Last Admin: 06/10/17 09:34 Dose: 5,000 units Home Med (Ranolazine [Ranexa]) 1,000 mg PO BID [facility] Last Admin: 06/10/17 09:31 Dose: 1,000 mg Insulin Human Lispro (Humalog) 0 units SC ACHS [facility] PRN Reason: Protocol Last Admin: 06/10/17 06:51 Dose: Not Given Insulin Lispro Protam/Lispro Human (Humalog Mix 75/25) 30 units SC ACB [facility] Last Admin: 06/10/17 08:14 Dose: 30 units Insulin Lispro Protam/Lispro Human (Humalog Mix 75/25) 20 units SC ACD [facility] Last Admin: 06/09/17 16:25 Dose: 20 units Lactobacillus Acidophilus (Bacid Acidophilus) 1 cap PO BID [facility] Last Admin: 06/10/17 09:31 Dose: 1 cap Lactulose (Enulose) 20 gm PO DAILY [facility] Last Admin: 06/10/17 09:34 Dose: 20 gm Levothyroxine Sodium (Synthroid) 100 mcg PO DAILY@0630 [facility] Last Admin: 06/10/17 06:14 Dose: 100 mcg Loratadine (Claritin) 10 mg PO DAILY [facility] Last Admin: 06/10/17 09:33 Dose: 10 mg Meclizine HCl (Antivert) 25 mg PO Q6H PRN PRN Reason: Dizziness Nitroglycerin (Nitrostat Sl Tab) 0.4 mg SL Q5MIN PRN PRN Reason: chest pain - Labs Labs: 06/08/17 07:30 06/08/17 07:30 Assessment and Plan (1) Acute kidney failure, unspecified Status: Acute
[2017-06-10 12:46] LABS: CALCIUM 8.9 mg/dL (8.4-10.2); POTASSIUM 4.2 MMOL/L (3.6-5.0)
--- NOTE | 2017-06-10 14:28 | CP.PCM.PN ---
Subjective - Date & Time of Evaluation Date of Evaluation: 06/10/17 Time of Evaluation: 14:00 - Subjective Subjective: Pt seen and examined. Noted to be sleeping, but as per her daughter did not have any complaint. Objective - Vital Signs/Intake and Output Vital Signs (last 24 hours): Temp Pulse Resp BP Pulse Ox 97.9 F 80 20 154/68 H 80 L 06/10/17 07:56 06/10/17 07:56 06/10/17 07:56 06/10/17 09:33 06/10/17 12:42 - Medications Medications: Current Medications Acetaminophen/Butalbital/Caffeine (Fioricet) 1 tab PO Q4 PRN PRN Reason: Headache Last Admin: 06/08/17 13:12 Dose: 1 tab Acetaminophen/Codeine Phosphate (Tylenol/Codeine 300 Mg/30 Mg) 1 tab PO Q8H PRN PRN Reason: Pain, severe (8-10) Albuterol/Ipratropium (Duoneb 3 Mg/0.5 Mg (3 Ml) Ud) 3 ml IH Q6H PRN PRN Reason: Shortness of Breath Alprazolam (Xanax) 0.25 mg PO HS PRN PRN Reason: Insomnia Stop: 06/14/17 20:00 Last Admin: 06/09/17 22:30 Dose: 0.25 mg Ascorbic Acid (Vitamin C 500 Mg Tab) 1,000 mg PO BID [facility] Last Admin: 06/10/17 09:31 Dose: 1,000 mg Aspirin (Ecotrin) 81 mg PO DAILY [facility] Last Admin: 06/10/17 09:33 Dose: 81 mg Atorvastatin Calcium (Lipitor) 40 mg PO HS [facility] Last Admin: 06/09/17 21:31 Dose: 40 mg Carvedilol (Coreg) 3.125 mg PO DAILY [facility] Last Admin: 06/10/17 09:33 Dose: 3.125 mg Clotrimazole (Lotrimin Af 1%) 1 applic TOP BID [facility] Last Admin: 06/10/17 09:34 Dose: 1 u Docusate Sodium (Colace) 200 mg PO DAILY [facility] Last Admin: 06/10/17 09:33 Dose: 200 mg Furosemide (Lasix) 20 mg PO Q72H [facility] Last Admin: 06/08/17 08:35 Dose: 20 mg Heparin Sodium (Porcine) (Heparin) 5,000 units SC Q12 [facility] PRN Reason: Protocol Last Admin: 06/10/17 09:34 Dose: 5,000 units Home Med (Ranolazine [Ranexa]) 1,000 mg PO BID [facility] Last Admin: 06/10/17 09:31 Dose: 1,000 mg Gentamicin Sulfate 80 mg/ (Sterile Water) 7 mls @ 5 mls/hr IVPB ONCE ONE Stop: 06/11/17 10:23 Gentamicin Sulfate 80 mg/ (Sterile Water) 7 mls @ 5 mls/hr IVPB ONCE ONE Stop: 06/13/17 10:23 Insulin Human Lispro (Humalog) 0 units SC ACHS [facility] PRN Reason: Protocol Last Admin: 06/10/17 12:13 Dose: Not Given Insulin Lispro Protam/Lispro Human (Humalog Mix 75/25) 30 units SC ACB [facility] Last Admin: 06/10/17 08:14 Dose: 30 units Insulin Lispro Protam/Lispro Human (Humalog Mix 75/25) 20 units SC ACD [facility] Last Admin: 06/09/17 16:25 Dose: 20 units Lactobacillus Acidophilus (Bacid Acidophilus) 1 cap PO BID [facility] Last Admin: 06/10/17 09:31 Dose: 1 cap Lactulose (Enulose) 20 gm PO DAILY [facility] Last Admin: 06/10/17 09:34 Dose: 20 gm Levothyroxine Sodium (Synthroid) 100 mcg PO DAILY@0630 [facility] Last Admin: 06/10/17 06:14 Dose: 100 mcg Loratadine (Claritin) 10 mg PO DAILY [facility] Last Admin: 06/10/17 09:33 Dose: 10 mg Meclizine HCl (Antivert) 25 mg PO Q6H PRN PRN Reason: Dizziness Nitroglycerin (Nitrostat Sl Tab) 0.4 mg SL Q5MIN PRN PRN Reason: chest pain - Labs Labs: 06/08/17 07:30 06/10/17 12:20 - Constitutional Appears: No Acute Distress - Head Exam Head Exam: ATRAUMATIC - Eye Exam Eye Exam: absent: Scleral icterus - ENT Exam ENT Exam: Mucous Membranes Moist - Neck Exam Neck Exam: absent: Meningismus - Respiratory Exam Respiratory Exam: absent: Rhonchi, Wheezes, Respiratory Distress - Cardiovascular Exam Cardiovascular Exam: REGULAR RHYTHM, +S1, +S2 - GI/Abdominal Exam GI & Abdominal Exam: Soft. absent: Tenderness - Rectal Exam Rectal Exam: Deferred - Skin Skin Exam: Dry, Intact Assessment and Plan - Assessment and Plan (Free Text) Assessment: 77 yo female with history of recurrent UTI, CAD (post CABG), HTN, HLD and Hypothyroidsim had another UTI which was treated with Bactrim as outpatient. Her condition did not improve. She was then admitted and started on IV antibiotics. Urine culture grew Klesiella Pneumonia sensitive to Gentamycin. She improved but had to be transferred to TCU for continuation of IV antibiotics and PT. 1. UTI spoke with Dr Reilly, ID consult. He advised to continue one dose of Gentamycin 80mg IVPB tomorrow (Wednesday) and last one on Wednesday. random Gentamycin level on Wednesday repeat urinalysis 2. DM2 BS relatively controlled Humulog Mix 75/25 30 units SC ACB Humulog Mix 75/25 20 units SC ACD 3. CAD denied SOB and Chest Pain continue Coreg, statin and ASA 4. Acute Kidney Injury renal function improving probably secondary to CHF continue Lasix 20mg PO q 72hrs 5. HTN slightly elevated BP continue Coreg and Lasix
--- NOTE | 2017-06-10 17:31 | CARD ---
APPROVED REPORT EKG Measurement Heart [id number] <Conclusion> Normal sinus rhythm Normal ECG
[2017-06-10 22:46] LABS: RBC URINE 1 /hpf (0-3); URINE BILIRUBIN NEGATIVE (NEGATIVE); URINE BLOOD NEGATIVE (NEGATIVE); URINE COLOR YELLOW (YELLOW); URINE GLUCOSE (UA) NEG (Normal); URINE KETONE NEGATIVE (NEGATIVE); URINE LEUKOCYTE ESTERASE SMALL Leu/uL (Negative); URINE PROTEIN 30 mg/dL (NEGATIVE); URINE UROBILINOGEN 0.2-1.0 mg/dL (0.2-1.0); WBC URINE 8 /hpf (0-5)
[2017-06-11] MEDS: Levothyroxine 100 MCG TAB PO SCH (06:14)
[2017-06-11] MEDS: Insulin Lispro (humaLOG) 100 Units/ml Inj SC SCH ×4 (06:29→21:57)
--- NOTE | 2017-06-11 08:14 | PN ---
ENDO FOLLOWUP NOTE DATE: LOCATION: Room [address] [place] [address] SUBJECTIVE: This is a 77-year-old female with recent uncontrolled type 2 insulin-requiring diabetes, now being followed closely for metabolic management. Her oral intake remains quite variable with preferential food intake from home as noted. Her glycemic levels are fluctuating but improved and have ranged from 141-195 and 253 mg/dL. Her latest chemistry showed a BUN of 29, sodium 142, potassium 4.2, chloride 104, CO2 31, glucose 104 and creatinine 1.3. So at this time, we will continue the same premixed insulin regimen to allow for dose equilibration and keep her on the Humalog 75/25 given as 30 units a.c. breakfast and 20 units a.c. dinner as ordered. We will continue the low-dose correction scale using Humalog insulin as given. We will also continue the same dose of the levothyroxine given as 100 mcg daily as ordered. We will obtain serial chemistries and serial thyroid studies and adjust her dose regimen accordingly. We will follow. Nicolette Francis MD
[2017-06-11] MEDS: Insulin Lispro Mix 75/25 100 units/ml (HumaLog) 10ml SC SCH ×2 (08:56→16:51)
[2017-06-11] MEDS ORDERED: Gentamicin 80mg/50ml NS 80 MG/50 ML BAG IVPB ONE (09:00)
[2017-06-11] MEDS: Patient's Own Med (Ranolazine [Ranexa] 1,000 MG) PO SCH ×2 (09:01→16:56)
[2017-06-11] MEDS: Lactobacillus Acidophilus 500 MU Cap PO SCH ×2 (09:06→16:59)
--- NOTE | 2017-06-11 12:44 | CP.PCM.PN ---
Subjective - Date & Time of Evaluation Date of Evaluation: 06/11/17 Time of Evaluation: 08:00 - Subjective Subjective: tolerating iv rx less bladder pain Objective - Vital Signs/Intake and Output Vital Signs (last 24 hours): Temp Pulse Resp BP Pulse Ox 97.2 F L 71 20 135/72 99 06/11/17 08:05 06/11/17 09:01 06/11/17 08:05 06/11/17 09:01 06/11/17 08:05 - Medications Medications: Current Medications Acetaminophen/Butalbital/Caffeine (Fioricet) 1 tab PO Q4 PRN PRN Reason: Headache Last Admin: 06/08/17 13:12 Dose: 1 tab Acetaminophen/Codeine Phosphate (Tylenol/Codeine 300 Mg/30 Mg) 1 tab PO Q8H PRN PRN Reason: Pain, severe (8-10) Albuterol/Ipratropium (Duoneb 3 Mg/0.5 Mg (3 Ml) Ud) 3 ml IH Q6H PRN PRN Reason: Shortness of Breath Alprazolam (Xanax) 0.25 mg PO HS PRN PRN Reason: Insomnia Stop: 06/14/17 20:00 Last Admin: 06/09/17 22:30 Dose: 0.25 mg Ascorbic Acid (Vitamin C 500 Mg Tab) 1,000 mg PO BID [facility] Last Admin: 06/11/17 09:01 Dose: 1,000 mg Aspirin (Ecotrin) 81 mg PO DAILY [facility] Last Admin: 06/11/17 09:01 Dose: 81 mg Atorvastatin Calcium (Lipitor) 40 mg PO HS [facility] Last Admin: 06/10/17 21:42 Dose: 40 mg Carvedilol (Coreg) 3.125 mg PO DAILY [facility] Last Admin: 06/11/17 09:01 Dose: 3.125 mg Clotrimazole (Lotrimin Af 1%) 1 applic TOP BID [facility] Last Admin: 06/11/17 09:22 Dose: 1 u Docusate Sodium (Colace) 200 mg PO DAILY [facility] Last Admin: 06/11/17 09:00 Dose: 200 mg Furosemide (Lasix) 20 mg PO Q72H [facility] Last Admin: 06/11/17 09:00 Dose: 20 mg Heparin Sodium (Porcine) (Heparin) 5,000 units SC Q12 [facility] PRN Reason: Protocol Last Admin: 06/11/17 08:58 Dose: 5,000 units Home Med (Ranolazine [Ranexa]) 1,000 mg PO BID [facility] Last Admin: 06/11/17 09:01 Dose: 1,000 mg Gentamicin Sulfate/Sodium Chloride (Gentamicin 80mg/50ml Ns) 80 mg in 50 mls @ 50 mls/hr IVPB ONCE ONE Stop: 06/13/17 09:59 Insulin Human Lispro (Humalog) 0 units SC ACHS [facility] PRN Reason: Protocol Last Admin: 06/11/17 12:33 Dose: Not Given Insulin Lispro Protam/Lispro Human (Humalog Mix 75/25) 30 units SC ACB [facility] Last Admin: 06/11/17 08:56 Dose: 30 units Insulin Lispro Protam/Lispro Human (Humalog Mix 75/25) 20 units SC ACD [facility] Last Admin: 06/10/17 17:00 Dose: Not Given Lactobacillus Acidophilus (Bacid Acidophilus) 1 cap PO BID [facility] Last Admin: 06/11/17 09:06 Dose: 1 cap Lactulose (Enulose) 20 gm PO DAILY [facility] Last Admin: 06/11/17 08:58 Dose: 20 gm Levothyroxine Sodium (Synthroid) 100 mcg PO DAILY@0630 [facility] Last Admin: 06/11/17 06:14 Dose: 100 mcg Loratadine (Claritin) 10 mg PO DAILY [facility] Last Admin: 06/11/17 09:01 Dose: 10 mg Meclizine HCl (Antivert) 25 mg PO Q6H PRN PRN Reason: Dizziness Nitroglycerin (Nitrostat Sl Tab) 0.4 mg SL Q5MIN PRN PRN Reason: chest pain - Labs Labs: 06/08/17 07:30 06/10/17 12:20 - Constitutional Appears: Non-toxic, Chronically Ill - Head Exam Head Exam: NORMOCEPHALIC - Eye Exam Eye Exam: absent: Scleral icterus - ENT Exam ENT Exam: Mucous Membranes Dry - Neck Exam Neck Exam: absent: Lymphadenopathy - Respiratory Exam Respiratory Exam: Decreased Breath Sounds, Clear to Ausculation Bilateral - Cardiovascular Exam Cardiovascular Exam: REGULAR RHYTHM - GI/Abdominal Exam GI & Abdominal Exam: Distended, Soft - Rectal Exam Rectal Exam: Deferred - Exam Exam: NORMAL INSPECTION - Extremities Exam Extremities Exam: absent: Calf Tenderness, Pedal Edema - Back Exam Back Exam: absent: CVA tenderness (L), CVA tenderness (R) Assessment and Plan (1) Acute kidney failure, unspecified Status: Acute (2) Acute kidney injury superimposed on chronic kidney disease Status: Acute (3) CHF (congestive heart failure) Status: Acute (4) Chr obstructive pulmonary disease w/ acute lower respiratory infxn Status: Acute (5) Chronic urinary tract infection Status: Acute (6) Urinary retention Status: Acute (7) Urinary tract infection Status: Acute
--- NOTE | 2017-06-11 15:23 | CP.PCM.PN ---
Subjective - Date & Time of Evaluation Date of Evaluation: 06/11/17 Time of Evaluation: 15:22 - Subjective Subjective: No new event reported Vital signs stable Less bladder pain She appeared to respond to antibiotics recovering from acute kidney injury Objective - Vital Signs/Intake and Output Vital Signs (last 24 hours): Temp Pulse Resp BP Pulse Ox 97.2 F L 71 20 135/72 99 06/11/17 08:05 06/11/17 09:01 06/11/17 08:05 06/11/17 09:01 06/11/17 08:05 - Medications Medications: Current Medications Acetaminophen/Butalbital/Caffeine (Fioricet) 1 tab PO Q4 PRN PRN Reason: Headache Last Admin: 06/08/17 13:12 Dose: 1 tab Acetaminophen/Codeine Phosphate (Tylenol/Codeine 300 Mg/30 Mg) 1 tab PO Q8H PRN PRN Reason: Pain, severe (8-10) Albuterol/Ipratropium (Duoneb 3 Mg/0.5 Mg (3 Ml) Ud) 3 ml IH Q6H PRN PRN Reason: Shortness of Breath Alprazolam (Xanax) 0.25 mg PO HS PRN PRN Reason: Insomnia Stop: 06/14/17 20:00 Last Admin: 06/09/17 22:30 Dose: 0.25 mg Ascorbic Acid (Vitamin C 500 Mg Tab) 1,000 mg PO BID [facility] Last Admin: 06/11/17 09:01 Dose: 1,000 mg Aspirin (Ecotrin) 81 mg PO DAILY [facility] Last Admin: 06/11/17 09:01 Dose: 81 mg Atorvastatin Calcium (Lipitor) 40 mg PO HS [facility] Last Admin: 06/10/17 21:42 Dose: 40 mg Carvedilol (Coreg) 3.125 mg PO DAILY [facility] Last Admin: 06/11/17 09:01 Dose: 3.125 mg Clotrimazole (Lotrimin Af 1%) 1 applic TOP BID [facility] Last Admin: 06/11/17 09:22 Dose: 1 u Docusate Sodium (Colace) 200 mg PO DAILY [facility] Last Admin: 06/11/17 09:00 Dose: 200 mg Furosemide (Lasix) 20 mg PO Q72H [facility] Last Admin: 06/11/17 09:00 Dose: 20 mg Heparin Sodium (Porcine) (Heparin) 5,000 units SC Q12 [facility] PRN Reason: Protocol Last Admin: 06/11/17 08:58 Dose: 5,000 units Home Med (Ranolazine [Ranexa]) 1,000 mg PO BID [facility] Last Admin: 06/11/17 09:01 Dose: 1,000 mg Gentamicin Sulfate/Sodium Chloride (Gentamicin 80mg/50ml Ns) 80 mg in 50 mls @ 50 mls/hr IVPB ONCE ONE Stop: 06/13/17 09:59 Insulin Human Lispro (Humalog) 0 units SC ACHS [facility] PRN Reason: Protocol Last Admin: 06/11/17 12:33 Dose: Not Given Insulin Lispro Protam/Lispro Human (Humalog Mix 75/25) 30 units SC ACB [facility] Last Admin: 06/11/17 08:56 Dose: 30 units Insulin Lispro Protam/Lispro Human (Humalog Mix 75/25) 20 units SC ACD [facility] Last Admin: 06/10/17 17:00 Dose: Not Given Lactobacillus Acidophilus (Bacid Acidophilus) 1 cap PO BID [facility] Last Admin: 06/11/17 09:06 Dose: 1 cap Lactulose (Enulose) 20 gm PO DAILY [facility] Last Admin: 06/11/17 08:58 Dose: 20 gm Levothyroxine Sodium (Synthroid) 100 mcg PO DAILY@0630 [facility] Last Admin: 06/11/17 06:14 Dose: 100 mcg Loratadine (Claritin) 10 mg PO DAILY [facility] Last Admin: 06/11/17 09:01 Dose: 10 mg Meclizine HCl (Antivert) 25 mg PO Q6H PRN PRN Reason: Dizziness Nitroglycerin (Nitrostat Sl Tab) 0.4 mg SL Q5MIN PRN PRN Reason: chest pain - Labs Labs: 06/08/17 07:30 06/10/17 12:20 Assessment and Plan (1) Acute kidney failure, unspecified Status: Acute
--- NOTE | 2017-06-12 02:10 | PN ---
ENDOCRINOLOGY FOLLOWUP NOTE DATE: LOCATION: Room 706 SUBJECTIVE: This is a 77-year-old female with recent uncontrolled type 2 insulin-requiring diabetes, now being followed closely for metabolic management. Her glycemic levels are fluctuating, but improved and the latest glucose levels have ranged from 172-200 and 221 mg/dL. Her latest chemistries include a BUN of 29, sodium 142, potassium 4.2, chloride 104, CO2 of 31, glucose 104, and creatinine 1.3. So, at this time, we will continue the same low-dose premixed insulin regimen as given with Humalog 75/25 given as 30 units before breakfast and 20 units before dinner as ordered. We will titrate incrementally as indicated to optimize metabolic control. We will follow and advise accordingly. Nicolette Francis MD
[2017-06-12] MEDS: Levothyroxine 100 MCG TAB PO SCH (06:20)
[2017-06-12] MEDS: Insulin Lispro (humaLOG) 100 Units/ml Inj SC SCH ×4 (06:38→21:40)
[2017-06-12] MEDS: Lactobacillus Acidophilus 500 MU Cap PO SCH ×2 (09:08→17:13)
[2017-06-12] MEDS: Insulin Lispro Mix 75/25 100 units/ml (HumaLog) 10ml SC SCH ×3 (09:10→17:13)
[2017-06-12] MEDS: Patient's Own Med (Ranolazine [Ranexa] 1,000 MG) PO SCH ×2 (09:11→17:14)
--- NOTE | 2017-06-12 20:21 | PN ---
DATE: ENDO FOLLOWUP NOTE LOCATION: Room 706, [facility]. This is a 77-year-old female with recent uncontrolled type 2 insulin-requiring diabetes, now being followed closely for metabolic management. Her oral intake remains quite variable at this time as per the nursing staff and the latest glucose levels have ranged from 110-279 and 312 mg/dL. Her latest chemistry shows a BUN of 29, sodium 142, potassium 4.2, chloride 104, CO2 of 31, glucose 104 and creatinine 1.3. So at this time, we will continue the same basal and bolus insulin regimen because of the variability of her oral intake and keep her on the Humalog 75/25, given as 30 units before breakfast and 20 units before dinner as ordered. We will titrate incremental as indicated to optimize metabolic control. We will follow and advise accordingly. Nicolette Francis MD
[2017-06-13] MEDS: Levothyroxine 100 MCG TAB PO SCH (05:59)
[2017-06-13] MEDS: Insulin Lispro (humaLOG) 100 Units/ml Inj SC SCH ×4 (06:51→21:35)
[2017-06-13] MEDS: Insulin Lispro Mix 75/25 100 units/ml (HumaLog) 10ml SC SCH (07:09)
[2017-06-13 07:13] LABS: BASO % 0.7 % (0.0-2.0); EOS # 0.4 K/uL (0.0-0.7); EOS % 6.1 % (0.0-4.0); HEMATOCRIT 28.4 % (34.0-47.0); LYMPH # 1.6 K/uL (1.0-4.3); LYMPH % 27.1 % (20.0-40.0); MEAN CORPUSCULAR HEMOGLOBIN 31.5 pg (27.0-31.0); MEAN CORPUSCULAR HGB CONC 33.2 g/dL (33.0-37.0); MEAN PLATELET VOLUME 8.5 fl (7.2-11.7); MONO # 0.6 K/uL (0.0-0.8); MONO % 10.4 % (0.0-10.0); NEUT # 3.3 K/uL (1.8-7.0); NEUT % 55.7 % (50.0-75.0); RED CELL DISTRIBUTION WIDTH 16.5 % (11.5-14.5)
[2017-06-13 07:15] LABS: BILIRUBIN,TOTAL 0.3 mg/dl (0.2-1.3); CALCIUM 8.9 mg/dL (8.4-10.2); TOTAL PROTEIN 5.9 G/DL (6.3-8.2)
[2017-06-13 07:32] LABS: POTASSIUM 5.1 MMOL/L (3.6-5.0)
[2017-06-13] MEDS: Lactobacillus Acidophilus 500 MU Cap PO SCH ×2 (08:42→16:56)
[2017-06-13] MEDS: Acetaminophen-Codeine 300/30 mg Tab PO PRN (08:42)
[2017-06-13] MEDS: Patient's Own Med (Ranolazine [Ranexa] 1,000 MG) PO SCH ×2 (08:43→16:54)
[2017-06-13] MEDS ORDERED: Gentamicin 80mg/50ml NS 80 MG/50 ML BAG IVPB ONE (09:00)
--- NOTE | 2017-06-13 14:05 | PN ---
DATE: ENDO FOLLOWUP NOTE LOCATION: Room 706. This is a 77-year-old female with recent uncontrolled type 2 insulin-requiring diabetes now being followed closely for metabolic management. Her oral intake remains quite variable at this time with supervening hyperglycemic accelerations as noted thereof. Her latest glucose levels have ranged from 292 to 293 mg/dL. The latest chemistry showed a BUN of 24, sodium 139, potassium 5.1, chloride 102, CO2 of 31, glucose 266 and creatinine 1.2. So at this time we will continue the low-dose correction scale using Humalog insulin as given. However, we will titrate her premixed insulin regimen and increase the Humalog 75/25 to 34 units before breakfast and 24 units before dinner as ordered. We will also consider the addition of basal insulin with Levemir to be given as 6 units subcu at bedtime daily as given. We will obtain serial chemistry and supplement accordingly as needed. We will follow. Nicolette Francis MD
[2017-06-13] MEDS ORDERED: Insulin Lispro Mix 75/25 100 units/ml (HumaLog) 10ml SC SCH (16:30)
[2017-06-13] MEDS ORDERED: Insulin Detemir 100 Units/ml Inj SC SCH (22:00)
[2017-06-14] MEDS: Levothyroxine 100 MCG TAB PO SCH (06:31)
[2017-06-14] MEDS: Insulin Lispro (humaLOG) 100 Units/ml Inj SC SCH ×4 (06:32→21:47)
[2017-06-14 06:59] LABS: BASO # 0.1 K/uL (0.0-0.2); BASO % 0.8 % (0.0-2.0); EOS # 0.4 K/uL (0.0-0.7); EOS % 6.4 % (0.0-4.0); LYMPH # 2.4 K/uL (1.0-4.3); LYMPH % 34.8 % (20.0-40.0); MEAN CELL VOLUME 95.6 fl (81.0-99.0); MEAN CORPUSCULAR HEMOGLOBIN 31.4 pg (27.0-31.0); MEAN CORPUSCULAR HGB CONC 32.8 g/dL (33.0-37.0); MEAN PLATELET VOLUME 8.6 fl (7.2-11.7); MONO # 0.8 K/uL (0.0-0.8); MONO % 10.8 % (0.0-10.0); NEUT # 3.3 K/uL (1.8-7.0); NEUT % 47.2 % (50.0-75.0); RED CELL DISTRIBUTION WIDTH 16.3 % (11.5-14.5)
[2017-06-14 07:07] LABS: ALB/GLOB RATIO 1.1 (1.0-2.1); BILIRUBIN,TOTAL 0.3 mg/dl (0.2-1.3); CALCIUM 9.2 mg/dL (8.4-10.2)
[2017-06-14 07:08] LABS: POTASSIUM 5.4 MMOL/L (3.6-5.0)
[2017-06-14] MEDS ORDERED: Insulin Lispro Mix 75/25 100 units/ml (HumaLog) 10ml SC SCH (07:30)
[2017-06-14] MEDS: Patient's Own Med (Ranolazine [Ranexa] 1,000 MG) PO SCH ×3 (08:55→16:24)
[2017-06-14] MEDS: Lactobacillus Acidophilus 500 MU Cap PO SCH ×2 (08:57→16:20)
--- NOTE | 2017-06-14 11:40 | CP.PCM.PN ---
Subjective - Date & Time of Evaluation Date of Evaluation: 06/14/17 Time of Evaluation: 11:38 - Subjective Subjective: No significant changes clinically Although serum potassium gone up to 5.4 Suggest to give Kayexalate and discontinue gentamicin Serum creatinine noted Rule out perhaps a fairly acute kidney injury again As noted above DC gentamicin and adjust the medication as per renal function Objective - Vital Signs/Intake and Output Vital Signs (last 24 hours): Temp Pulse Resp BP Pulse Ox 96.4 F L 72 20 139/58 L 97 06/14/17 08:18 06/14/17 08:52 06/14/17 08:18 06/14/17 08:53 06/14/17 08:18 - Medications Medications: Current Medications Acetaminophen/Butalbital/Caffeine (Fioricet) 1 tab PO Q4 PRN PRN Reason: Headache Last Admin: 06/08/17 13:12 Dose: 1 tab Acetaminophen/Codeine Phosphate (Tylenol/Codeine 300 Mg/30 Mg) 1 tab PO Q8H PRN PRN Reason: Pain, moderate (4-7) Last Admin: 06/13/17 08:42 Dose: 1 tab Albuterol/Ipratropium (Duoneb 3 Mg/0.5 Mg (3 Ml) Ud) 3 ml IH Q6H PRN PRN Reason: Shortness of Breath Alprazolam (Xanax) 0.25 mg PO HS PRN PRN Reason: Insomnia Stop: 06/19/17 17:39 Last Admin: 06/13/17 21:42 Dose: 0.25 mg Ascorbic Acid (Vitamin C 500 Mg Tab) 1,000 mg PO BID [facility] Last Admin: 06/14/17 08:52 Dose: 1,000 mg Aspirin (Ecotrin) 81 mg PO DAILY [facility] Last Admin: 06/14/17 08:53 Dose: 81 mg Atorvastatin Calcium (Lipitor) 40 mg PO HS [facility]S [facility] Last Admin: 06/13/17 21:38 Dose: 40 mg Carvedilol (Coreg) 3.125 mg PO DAILY [facility] Last Admin: 06/14/17 08:52 Dose: 3.125 mg Clotrimazole (Lotrimin Af 1%) 1 applic TOP BID [facility]S [facility] Last Admin: 06/14/17 08:54 Dose: 1 u Docusate Sodium (Colace) 200 mg PO DAILY [facility] Last Admin: 06/14/17 08:53 Dose: 200 mg Furosemide (Lasix) 20 mg PO Q72H [facility]S [facility] Last Admin: 06/14/17 08:53 Dose: 20 mg Heparin Sodium (Porcine) (Heparin) 5,000 units SC Q12 [facility] PRN Reason: Protocol Last Admin: 06/14/17 08:54 Dose: Not Given Home Med (Ranolazine [Ranexa]) 1,000 mg PO BID [facility] Insulin Detemir (Levemir) 6 units SC HS [facility] Last Admin: 06/13/17 21:47 Dose: Not Given Insulin Human Lispro (Humalog) 0 units SC ACHS [facility] PRN Reason: Protocol Last Admin: 06/14/17 06:32 Dose: Not Given Insulin Lispro Protam/Lispro Human (Humalog Mix 75/25) 34 units SC ACB [facility] Last Admin: 06/14/17 08:52 Dose: 34 units Insulin Lispro Protam/Lispro Human (Humalog Mix 75/25) 24 units SC ACD [facility] Last Admin: 06/13/17 16:53 Dose: Not Given Lactobacillus Acidophilus (Bacid Acidophilus) 1 cap PO BID [facility] Last Admin: 06/14/17 08:57 Dose: 1 cap Lactulose (Enulose) 20 gm PO DAILY [facility] Last Admin: 06/14/17 08:54 Dose: Not Given Levothyroxine Sodium (Synthroid) 100 mcg PO DAILY@0630 [facility] 234 [facility] Last Admin: 06/14/17 06:31 Dose: 100 mcg Loratadine (Claritin) 10 mg PO DAILY [facility] Last Admin: 06/14/17 08:53 Dose: 10 mg Meclizine HCl (Antivert) 25 mg PO Q6H PRN PRN Reason: Dizziness Nitroglycerin (Nitrostat Sl Tab) 0.4 mg SL Q5MIN PRN PRN Reason: chest pain - Labs Labs: 06/14/17 06:48 06/14/17 06:48 Assessment and Plan (1) Acute kidney failure, unspecified Status: Acute
--- NOTE | 2017-06-14 15:26 | CP.PCM.PN ---
Subjective - Date & Time of Evaluation Date of Evaluation: 06/14/17 Time of Evaluation: 12:00 - Subjective Subjective: RF/U UTI Pt with no c/o, no pain. Objective - Vital Signs/Intake and Output Vital Signs (last 24 hours): Temp Pulse Resp BP Pulse Ox 96.4 F L 72 20 139/58 L 97 06/14/17 08:18 06/14/17 08:52 06/14/17 08:18 06/14/17 08:53 06/14/17 08:18 - Medications Medications: Current Medications Acetaminophen/Butalbital/Caffeine (Fioricet) 1 tab PO Q4 PRN PRN Reason: Headache Last Admin: 06/08/17 13:12 Dose: 1 tab Acetaminophen/Codeine Phosphate (Tylenol/Codeine 300 Mg/30 Mg) 1 tab PO Q8H PRN PRN Reason: Pain, moderate (4-7) Last Admin: 06/13/17 08:42 Dose: 1 tab Albuterol/Ipratropium (Duoneb 3 Mg/0.5 Mg (3 Ml) Ud) 3 ml IH Q6H PRN PRN Reason: Shortness of Breath Alprazolam (Xanax) 0.25 mg PO HS PRN PRN Reason: Insomnia Stop: 06/19/17 17:39 Last Admin: 06/13/17 21:42 Dose: 0.25 mg Ascorbic Acid (Vitamin C 500 Mg Tab) 1,000 mg PO BID [facility] Last Admin: 06/14/17 08:52 Dose: 1,000 mg Aspirin (Ecotrin) 81 mg PO DAILY [facility] Last Admin: 06/14/17 08:53 Dose: 81 mg Atorvastatin Calcium (Lipitor) 40 mg PO HS [facility] Last Admin: 06/13/17 21:38 Dose: 40 mg Carvedilol (Coreg) 3.125 mg PO DAILY [facility] Last Admin: 06/14/17 08:52 Dose: 3.125 mg Clotrimazole (Lotrimin Af 1%) 1 applic TOP BID [facility] Last Admin: 06/14/17 08:54 Dose: 1 u Docusate Sodium (Colace) 200 mg PO DAILY [facility] Last Admin: 06/14/17 08:53 Dose: 200 mg Furosemide (Lasix) 20 mg PO Q72H [facility] Last Admin: 06/14/17 08:53 Dose: 20 mg Heparin Sodium (Porcine) (Heparin) 5,000 units SC Q12 [facility] PRN Reason: Protocol Last Admin: 06/14/17 08:54 Dose: Not Given Home Med (Ranolazine [Ranexa]) 1,000 mg PO BID [facility] Insulin Detemir (Levemir) 8 units SC HS [facility] Insulin Human Lispro (Humalog) 0 units SC ACHS [facility] PRN Reason: Protocol Last Admin: 06/14/17 13:25 Dose: Not Given Insulin Lispro Protam/Lispro Human (Humalog Mix 75/25) 26 units SC ACD [facility] Insulin Lispro Protam/Lispro Human (Humalog Mix 75/25) 38 units SC ACB [facility] Lactobacillus Acidophilus (Bacid Acidophilus) 1 cap PO BID [facility] Last Admin: 06/14/17 08:57 Dose: 1 cap Lactulose (Enulose) 20 gm PO DAILY [facility] Last Admin: 06/14/17 08:54 Dose: Not Given Levothyroxine Sodium (Synthroid) 100 mcg PO DAILY@0630 [facility] Last Admin: 06/14/17 06:31 Dose: 100 mcg Loratadine (Claritin) 10 mg PO DAILY [facility] Last Admin: 06/14/17 08:53 Dose: 10 mg Meclizine HCl (Antivert) 25 mg PO Q6H PRN PRN Reason: Dizziness Nitroglycerin (Nitrostat Sl Tab) 0.4 mg SL Q5MIN PRN PRN Reason: chest pain - Labs Labs: 06/14/17 06:48 06/14/17 06:48 - Constitutional Appears: No Acute Distress, Chronically Ill - Head Exam Head Exam: NORMAL INSPECTION - Eye Exam Eye Exam: PERRL Additional comments: L eye blind - ENT Exam Additional comments: Hard of hear R ear. - Neck Exam Neck Exam: Normal Inspection - Respiratory Exam Respiratory Exam: Decreased Breath Sounds (at bases) - Cardiovascular Exam Cardiovascular Exam: REGULAR RHYTHM - GI/Abdominal Exam GI & Abdominal Exam: Soft, Normal Bowel Sounds. absent: Guarding, Rebound - Extremities Exam Additional comments: L TMA - Back Exam Back Exam: NORMAL INSPECTION - Neurological Exam Neurological Exam: Alert, Awake, Oriented x3 Additional comments: Forgetful at times, moves well all extremities against gravity, generalized weakness. - Psychiatric Exam Psychiatric exam: Anxious - Skin Skin Exam: Warm Assessment and Plan (1) UTI due to Klebsiella species Status: Acute (2) Acute kidney failure, unspecified Status: Acute (3) COPD (chronic obstructive pulmonary disease) Status: Chronic (4) Chronic low back pain Status: Chronic (5) Hypothyroidism Status: Chronic (6) Type 2 diabetes mellitus with hyperglycemia Status: Chronic (7) CHF (congestive heart failure) Status: Acute (8) Hx of CABG Status: Chronic (9) Anxiety Status: Chronic - Assessment and Plan (Free Text) Plan: U/A, U C-S, CBC, CMP, continue Gentamicin, f/u ID.
[2017-06-14] MEDS: Acetaminophen-Codeine 300/30 mg Tab PO PRN (16:20)
[2017-06-14] MEDS: Insulin Lispro Mix 75/25 100 units/ml (HumaLog) 10ml SC SCH (16:22)
--- NOTE | 2017-06-14 18:13 | PN ---
DATE: ENDO FOLLOWUP NOTE In room 706, [facility]. SUBJECTIVE: This is a 77-year-old female with recent uncontrolled type 2 insulin-requiring diabetes now being followed closely for metabolic management. Her glycemic levels are fluctuating, but much improved at this time and the latest glucose levels have ranged from 170-299 mg/dL. Her latest chemistry showed a BUN of 24, sodium 141, potassium 5.4, chloride 104, CO2 of 34, glucose 154, and creatinine 1.3. So at this time we will modify once again her basal and bolus insulin regimen and increase the Humalog 75/25 to 38 units a.c. breakfast and 26 units a.c. dinner to start today. We will also increase her basal insulin with Levemir to be given as 8 units subcu at bedtime daily to start tonight. We will titrate incremental as indicated to optimize metabolic control. We will follow with you. Nicolette Francis MD
[2017-06-14] MEDS: Insulin Detemir 100 Units/ml Inj SC SCH (21:48)
[2017-06-15] MEDS ORDERED: Levothyroxine 100 MCG TAB ONE (05:00)
[2017-06-15] MEDS: Insulin Lispro (humaLOG) 100 Units/ml Inj SC SCH ×3 (06:48→16:22)
[2017-06-15] MEDS: Insulin Lispro Mix 75/25 100 units/ml (HumaLog) 10ml SC SCH ×2 (08:32→16:32)
[2017-06-15] MEDS: Patient's Own Med (Ranolazine [Ranexa] 1,000 MG) PO SCH ×2 (08:35→16:33)
[2017-06-15 09:02] VITALS: RESP 20
[2017-06-15] MEDS: Lactobacillus Acidophilus 500 MU Cap PO SCH ×2 (09:14→16:36)
[2017-06-15] MEDS: Acetaminophen-Codeine 300/30 mg Tab PO PRN (12:13)
--- NOTE | 2017-06-15 13:13 | CP.PCM.PN ---
Subjective - Date & Time of Evaluation Date of Evaluation: 06/15/17 Time of Evaluation: 11:30 - Subjective Subjective: F/U UTI Pt c/o of thoracic and L-S pain, requesting pain medication, no abdominal pain, no dysuria. Objective - Vital Signs/Intake and Output Vital Signs (last 24 hours): Temp Pulse Resp BP Pulse Ox 97.0 F L 74 20 120/70 99 06/15/17 09:01 06/15/17 09:01 06/15/17 09:01 06/15/17 09:01 06/15/17 09:01 - Medications Medications: Current Medications Acetaminophen/Butalbital/Caffeine (Fioricet) 1 tab PO Q4 PRN PRN Reason: Headache Last Admin: 06/08/17 13:12 Dose: 1 tab Acetaminophen/Codeine Phosphate (Tylenol/Codeine 300 Mg/30 Mg) 1 tab PO Q8H PRN PRN Reason: Pain, moderate (4-7) Last Admin: 06/15/17 12:13 Dose: 1 tab Albuterol/Ipratropium (Duoneb 3 Mg/0.5 Mg (3 Ml) Ud) 3 ml IH Q6H PRN PRN Reason: Shortness of Breath Alprazolam (Xanax) 0.25 mg PO HS PRN PRN Reason: Insomnia Stop: 06/19/17 17:39 Last Admin: 06/13/17 21:42 Dose: 0.25 mg Ascorbic Acid (Vitamin C 500 Mg Tab) 1,000 mg PO BID [facility] Last Admin: 06/15/17 08:29 Dose: 1,000 mg Aspirin (Ecotrin) 81 mg PO DAILY [facility] Last Admin: 06/15/17 08:31 Dose: 81 mg Atorvastatin Calcium (Lipitor) 40 mg PO HS [facility] Last Admin: 06/14/17 22:06 Dose: 40 mg Carvedilol (Coreg) 3.125 mg PO DAILY [facility] Last Admin: 06/15/17 08:33 Dose: 3.125 mg Clotrimazole (Lotrimin Af 1%) 1 applic TOP BID [facility] Last Admin: 06/15/17 08:33 Dose: 1 u Docusate Sodium (Colace) 200 mg PO DAILY [facility] Last Admin: 06/15/17 08:29 Dose: 200 mg Furosemide (Lasix) 20 mg PO Q72H [facility] Last Admin: 06/14/17 08:53 Dose: 20 mg Heparin Sodium (Porcine) (Heparin) 5,000 units SC Q12 [facility] PRN Reason: Protocol Last Admin: 06/15/17 08:32 Dose: Not Given Home Med (Ranolazine [Ranexa]) 1,000 mg PO BID [facility] Last Admin: 06/15/17 08:35 Dose: Not Given Insulin Detemir (Levemir) 8 units SC HS [facility] Last Admin: 06/14/17 21:48 Dose: Not Given Insulin Human Lispro (Humalog) 0 units SC ACHS [facility] PRN Reason: Protocol Last Admin: 06/15/17 11:36 Dose: Not Given Insulin Lispro Protam/Lispro Human (Humalog Mix 75/25) 26 units SC ACD [facility] Last Admin: 06/14/17 16:22 Dose: Not Given Insulin Lispro Protam/Lispro Human (Humalog Mix 75/25) 38 units SC ACB [facility] Last Admin: 06/15/17 08:32 Dose: 38 units Lactobacillus Acidophilus (Bacid Acidophilus) 1 cap PO BID [facility] Last Admin: 06/15/17 09:14 Dose: 1 cap Lactulose (Enulose) 20 gm PO DAILY [facility] Last Admin: 06/15/17 08:33 Dose: 20 gm Levothyroxine Sodium (Synthroid) 100 mcg PO DAILY@0630 [facility] Last Admin: 06/14/17 06:31 Dose: 100 mcg Loratadine (Claritin) 10 mg PO DAILY [facility] Last Admin: 06/15/17 08:29 Dose: 10 mg Meclizine HCl (Antivert) 25 mg PO Q6H PRN PRN Reason: Dizziness Nitroglycerin (Nitrostat Sl Tab) 0.4 mg SL Q5MIN PRN PRN Reason: chest pain - Labs Labs: 06/14/17 06:48 06/14/17 06:48 - Constitutional Appears: No Acute Distress, Chronically Ill - Head Exam Head Exam: NORMAL INSPECTION - Eye Exam Eye Exam: PERRL Additional comments: L eye bind. - ENT Exam Additional comments: Hard of hear R ear. - Neck Exam Neck Exam: Normal Inspection - Respiratory Exam Respiratory Exam: Decreased Breath Sounds (at bases) - Cardiovascular Exam Cardiovascular Exam: REGULAR RHYTHM - GI/Abdominal Exam GI & Abdominal Exam: Soft, Normal Bowel Sounds. absent: Guarding, Rebound - Extremities Exam Additional comments: L TMA - Back Exam Back Exam: NORMAL INSPECTION - Neurological Exam Neurological Exam: Awake, Oriented x3 Additional comments: Forgetful at times, moves all extremities against gravity, generalized weakness. - Psychiatric Exam Psychiatric exam: Anxious - Skin Skin Exam: Warm Assessment and Plan (1) UTI due to Klebsiella species Status: Acute (2) Acute kidney failure, unspecified Status: Acute (3) Type 2 diabetes mellitus with hyperglycemia Status: Chronic (4) CHF (congestive heart failure) Status: Acute (5) Chronic low back pain Status: Chronic (6) COPD (chronic obstructive pulmonary disease) Status: Chronic (7) Hypothyroidism Status: Chronic (8) Anxiety Status: Chronic (9) Hx of CABG Status: Chronic - Assessment and Plan (Free Text) Plan: F/U U C-S from yesterday, Renal cardiology consultants recommended DC Gentamicin, f/u with ID.
--- NOTE | 2017-06-15 13:13 | CP.PCM.PN ---
Subjective - Date & Time of Evaluation Date of Evaluation: 06/15/17 Time of Evaluation: 13:12 - Subjective Subjective: Patient is out of bed Appeared to be comfortable Vital signs stable Chest no rales Heart no rubs Abdomen soft Extremity no edema Impression and plan Status post acute kidney injury recovering Follow-up serum potassium and repeat BMP now Objective - Vital Signs/Intake and Output Vital Signs (last 24 hours): Temp Pulse Resp BP Pulse Ox 97.0 F L 74 20 120/70 99 06/15/17 09:01 06/15/17 09:01 06/15/17 09:01 06/15/17 09:01 06/15/17 09:01 - Medications Medications: Current Medications Acetaminophen/Butalbital/Caffeine (Fioricet) 1 tab PO Q4 PRN PRN Reason: Headache Last Admin: 06/08/17 13:12 Dose: 1 tab Acetaminophen/Codeine Phosphate (Tylenol/Codeine 300 Mg/30 Mg) 1 tab PO Q8H PRN PRN Reason: Pain, moderate (4-7) Last Admin: 06/15/17 12:13 Dose: 1 tab Albuterol/Ipratropium (Duoneb 3 Mg/0.5 Mg (3 Ml) Ud) 3 ml IH Q6H PRN PRN Reason: Shortness of Breath Alprazolam (Xanax) 0.25 mg PO HS PRN PRN Reason: Insomnia Stop: 06/19/17 17:39 Last Admin: 06/13/17 21:42 Dose: 0.25 mg Ascorbic Acid (Vitamin C 500 Mg Tab) 1,000 mg PO BID [facility] Last Admin: 06/15/17 08:29 Dose: 1,000 mg Aspirin (Ecotrin) 81 mg PO DAILY [facility] Last Admin: 06/15/17 08:31 Dose: 81 mg Atorvastatin Calcium (Lipitor) 40 mg PO HS [facility] Last Admin: 06/14/17 22:06 Dose: 40 mg Carvedilol (Coreg) 3.125 mg PO DAILY [facility] Last Admin: 06/15/17 08:33 Dose: 3.125 mg Clotrimazole (Lotrimin Af 1%) 1 applic TOP BID [facility] Last Admin: 06/15/17 08:33 Dose: 1 u Docusate Sodium (Colace) 200 mg PO DAILY [facility] Last Admin: 06/15/17 08:29 Dose: 200 mg Furosemide (Lasix) 20 mg PO Q72H [facility] Last Admin: 06/14/17 08:53 Dose: 20 mg Heparin Sodium (Porcine) (Heparin) 5,000 units SC Q12 [facility] PRN Reason: Protocol Last Admin: 06/15/17 08:32 Dose: Not Given Home Med (Ranolazine [Ranexa]) 1,000 mg PO BID [facility] Last Admin: 06/15/17 08:35 Dose: Not Given Insulin Detemir (Levemir) 8 units SC HS [facility] Last Admin: 06/14/17 21:48 Dose: Not Given Insulin Human Lispro (Humalog) 0 units SC ACHS [facility] PRN Reason: Protocol Last Admin: 06/15/17 11:36 Dose: Not Given Insulin Lispro Protam/Lispro Human (Humalog Mix 75/25) 26 units SC ACD [facility] Last Admin: 06/14/17 16:22 Dose: Not Given Insulin Lispro Protam/Lispro Human (Humalog Mix 75/25) 38 units SC ACB [facility] Last Admin: 06/15/17 08:32 Dose: 38 units Lactobacillus Acidophilus (Bacid Acidophilus) 1 cap PO BID [facility] Last Admin: 06/15/17 09:14 Dose: 1 cap Lactulose (Enulose) 20 gm PO DAILY [facility] Last Admin: 06/15/17 08:33 Dose: 20 gm Levothyroxine Sodium (Synthroid) 100 mcg PO DAILY@0630 [facility] Last Admin: 06/14/17 06:31 Dose: 100 mcg Loratadine (Claritin) 10 mg PO DAILY [facility] Last Admin: 06/15/17 08:29 Dose: 10 mg Meclizine HCl (Antivert) 25 mg PO Q6H PRN PRN Reason: Dizziness Nitroglycerin (Nitrostat Sl Tab) 0.4 mg SL Q5MIN PRN PRN Reason: chest pain - Labs Labs: 06/14/17 06:48 06/14/17 06:48 Assessment and Plan (1) Acute kidney failure, unspecified Status: Acute
[2017-06-15 17:44] LABS: CALCIUM 9.5 mg/dL (8.4-10.2)
[2017-06-15 17:56] LABS: POTASSIUM 6.3 MMOL/L (3.6-5.0)
[2017-06-15] MEDS ORDERED: Sod Polystyrene Sulf 15 gm/60 ml Oral Susp PO STA (18:05)
[2017-06-15] MEDS: Insulin Detemir 100 Units/ml Inj SC SCH (20:59)
[2017-06-16] MEDS ORDERED: Sod Polystyrene Sulf 15 gm/60 ml Oral Susp PO ONE (00:01)
[2017-06-16] MEDS: Insulin Lispro (humaLOG) 100 Units/ml Inj SC SCH ×2 (02:09→08:59)
[2017-06-16 06:38] LABS: CALCIUM 8.9 mg/dL (8.4-10.2)
[2017-06-16] MEDS: Levothyroxine 100 MCG TAB PO SCH (06:46)
[2017-06-16 07:46] VITALS: BP 130/54; PULSE 69; TEMP 97.6; O2SAT 99
--- NOTE | 2017-06-16 08:28 | PN ---
ENDOCRINOLOGY FOLLOWUP NOTE LOCATION: [facility] Room 706. The patient is a 77-year-old female with recently uncontrolled type 2 diabetes mellitus followed closely for metabolic management . The latest chemistries showed a BUN of 24 basal and premixed insulin regimen to allow for dose equilibration insulin with Humalog 75/25 given as 30 units a.c. breakfast and 20 units a.c. dinner as ordered. We will continue the low-dose correction scale using Humalog insulin as given. We will titrate incrementally as indicated to optimize metabolic control. . We will follow with you. Nicolette Francis MD
--- NOTE | 2017-06-16 08:54 | CP.PCM.PN ---
Subjective - Date & Time of Evaluation Date of Evaluation: 06/16/17 Time of Evaluation: 08:52 - Subjective Subjective: Patient out of bed Doing much better Vital signs stable Serum potassium was high yesterday patient required to be given 2 doses of Kayexalate Repeat potassium this morning 5.0 Kidney function stable Impression and plan Most likely status post acute kidney injury perhaps from the antibiotics gentamicin which has been discontinued Low potassium diet Repeat BNP as outpatient if she is going home in the day or 2. Objective - Vital Signs/Intake and Output Vital Signs (last 24 hours): Temp Pulse Resp BP Pulse Ox 97.6 F 69 20 130/54 L 99 06/16/17 07:44 06/16/17 07:44 06/16/17 07:44 06/16/17 07:44 06/16/17 07:44 - Medications Medications: Current Medications Acetaminophen/Butalbital/Caffeine (Fioricet) 1 tab PO Q4 PRN PRN Reason: Headache Last Admin: 06/08/17 13:12 Dose: 1 tab Acetaminophen/Codeine Phosphate (Tylenol/Codeine 300 Mg/30 Mg) 1 tab PO Q8H PRN PRN Reason: Pain, moderate (4-7) Last Admin: 06/15/17 12:13 Dose: 1 tab Albuterol/Ipratropium (Duoneb 3 Mg/0.5 Mg (3 Ml) Ud) 3 ml IH Q6H PRN PRN Reason: Shortness of Breath Alprazolam (Xanax) 0.25 mg PO HS PRN PRN Reason: Insomnia Stop: 06/19/17 17:39 Last Admin: 06/15/17 20:52 Dose: 0.25 mg Ascorbic Acid (Vitamin C 500 Mg Tab) 1,000 mg PO BID [facility] Last Admin: 06/15/17 16:34 Dose: 1,000 mg Aspirin (Ecotrin) 81 mg PO DAILY [facility] Last Admin: 06/15/17 08:31 Dose: 81 mg Atorvastatin Calcium (Lipitor) 40 mg PO HS [facility] Last Admin: 06/15/17 22:27 Dose: 40 mg Carvedilol (Coreg) 3.125 mg PO DAILY [facility] Last Admin: 06/15/17 08:33 Dose: 3.125 mg Clotrimazole (Lotrimin Af 1%) 1 applic TOP BID [facility] Last Admin: 06/15/17 16:32 Dose: 1 u Docusate Sodium (Colace) 200 mg PO DAILY [facility] Last Admin: 06/15/17 08:29 Dose: 200 mg Furosemide (Lasix) 20 mg PO Q72H [facility] Last Admin: 06/14/17 08:53 Dose: 20 mg Heparin Sodium (Porcine) (Heparin) 5,000 units SC Q12 [facility] PRN Reason: Protocol Last Admin: 06/15/17 20:58 Dose: Not Given Home Med (Ranolazine [Ranexa]) 1,000 mg PO BID [facility] Last Admin: 06/15/17 16:33 Dose: Not Given Insulin Detemir (Levemir) 8 units SC HS [facility] Last Admin: 06/15/17 20:59 Dose: Not Given Insulin Human Lispro (Humalog) 0 units SC ACHS [facility] PRN Reason: Protocol Last Admin: 06/16/17 02:09 Dose: Not Given Insulin Lispro Protam/Lispro Human (Humalog Mix 75/25) 26 units SC ACD [facility] Last Admin: 06/15/17 16:32 Dose: Not Given Insulin Lispro Protam/Lispro Human (Humalog Mix 75/25) 38 units SC ACB [facility] Last Admin: 06/15/17 08:32 Dose: 38 units Lactobacillus Acidophilus (Bacid Acidophilus) 1 cap PO BID [facility] Last Admin: 06/15/17 16:36 Dose: 1 cap Lactulose (Enulose) 20 gm PO DAILY [facility] Last Admin: 06/15/17 08:33 Dose: 20 gm Levothyroxine Sodium (Synthroid) 100 mcg PO DAILY@0630 [facility] Last Admin: 06/16/17 06:46 Dose: 100 mcg Loratadine (Claritin) 10 mg PO DAILY [facility] Last Admin: 06/15/17 08:29 Dose: 10 mg Meclizine HCl (Antivert) 25 mg PO Q6H PRN PRN Reason: Dizziness Nitroglycerin (Nitrostat Sl Tab) 0.4 mg SL Q5MIN PRN PRN Reason: chest pain - Labs Labs: 06/14/17 06:48 06/16/17 06:10 Assessment and Plan (1) Acute kidney failure, unspecified Status: Acute
[2017-06-16] MEDS: Lactobacillus Acidophilus 500 MU Cap PO SCH (08:58)
[2017-06-16] MEDS: Patient's Own Med (Ranolazine [Ranexa] 1,000 MG) PO SCH (09:00)
[2017-06-16] MEDS: Insulin Lispro Mix 75/25 100 units/ml (HumaLog) 10ml SC SCH (09:02)
--- NOTE | 2017-06-16 16:04 | CP.PCM.PN ---
Subjective - Date & Time of Evaluation Date of Evaluation: 06/16/17 Time of Evaluation: 10:40 - Subjective Subjective: F/U UTI No A/D, VS normal, c/o of constipation. Objective - Vital Signs/Intake and Output Vital Signs (last 24 hours): Temp Pulse Resp BP Pulse Ox 97.6 F 69 20 130/54 L 99 06/16/17 07:44 06/16/17 09:00 06/16/17 07:44 06/16/17 09:00 06/16/17 07:44 - Labs Labs: 06/14/17 06:48 06/16/17 06:10 - Constitutional Appears: No Acute Distress, Chronically Ill - Head Exam Head Exam: NORMAL INSPECTION - Eye Exam Eye Exam: PERRL Additional comments: L eye blind - ENT Exam Additional comments: Hard of hear R ear - Neck Exam Neck Exam: Normal Inspection - Respiratory Exam Respiratory Exam: Decreased Breath Sounds (at bases) - Cardiovascular Exam Cardiovascular Exam: REGULAR RHYTHM - GI/Abdominal Exam GI & Abdominal Exam: Soft, Normal Bowel Sounds - Extremities Exam Additional comments: L TMA - Back Exam Back Exam: NORMAL INSPECTION - Neurological Exam Neurological Exam: Alert, Awake, Oriented x3 Additional comments: Forgetful at times, moves all extremities against gravity, generalized weakness. - Psychiatric Exam Psychiatric exam: Anxious - Skin Skin Exam: Warm Assessment and Plan (1) UTI due to Klebsiella species Status: Acute (2) Acute kidney failure, unspecified Status: Acute (3) Type 2 diabetes mellitus with hyperglycemia Status: Chronic (4) CHF (congestive heart failure) Status: Acute (5) Chronic low back pain Status: Chronic (6) COPD (chronic obstructive pulmonary disease) Status: Chronic (7) Hypothyroidism Status: Chronic (8) Anxiety Status: Chronic (9) Hx of CABG Status: Chronic - Assessment and Plan (Free Text) Plan: Pt improved and stable to be discharged, see instruction medication sheet, f/u PMD in a week and f/u with Nephrology.
--- NOTE | 2017-06-16 19:12 | PN ---
DATE: Location: In room 706. SUBJECTIVE: This is a 77-year-old female with recent uncontrolled type 2 insulin-requiring diabetes now being followed closely for metabolic management. Her glycemic levels are fluctuating, but improved at this time and the latest glucose levels have ranged from 134-147 and 281 mg/dL. Her latest chemistry showed a BUN of 24, sodium 142, potassium 5.0, chloride 105, CO2 of 32, glucose 180 and creatinine 1.3. So at this time, we will continue the same basal and premixed insulin regimen as given with Humalog 75/25 given as 38 units a.c. breakfast and 26 units a.c. dinner as ordered. We will also continue the basal insulin given as Levemir at 8 units subcu at bedtime daily as given. We will titrate incremental as indicated to optimize metabolic control. We will follow and advise accordingly. Nicolette Francis MD
== END 2017-06-16 11:40 | disposition home or self-care (01) | DRG 569 ==
LOC: H.TCU 17:57 → UNDODISIN 06-16 11:40
PROVIDERS: ADMIT Internal Medicine Pulmonary Disease; ATTEND Internal Medicine Pulmonary Disease
PROC: F07Z9FZ Gait Training/Functional Ambulation Treatment using Assistive, Adaptive, Supportive or Protective Equipment (ICD-10-PCS; principal; 2017-06-08)
PROC: F08Z4FZ Home Management Treatment using Assistive, Adaptive, Supportive or Protective Equipment (ICD-10-PCS; 2017-06-08)
DX: N39.0 Urinary tract infection, site not specified (principal); B96.1 Klebsiella pneumoniae [K. pneumoniae] as the cause of diseases classified elsewhere; N17.9 Acute kidney failure, unspecified; Z79.2 Long term (current) use of antibiotics; E11.22 Type 2 diabetes mellitus with diabetic chronic kidney disease; E11.65 Type 2 diabetes mellitus with hyperglycemia; I13.0 Hypertensive heart and chronic kidney disease with heart failure and stage 1 through stage 4 chronic kidney disease, or unspecified chronic kidney disease; I50.9 Heart failure, unspecified; N18.9 Chronic kidney disease, unspecified; J44.9 Chronic obstructive pulmonary disease, unspecified; E03.9 Hypothyroidism, unspecified; F41.9 Anxiety disorder, unspecified; I25.10 Atherosclerotic heart disease of native coronary artery without angina pectoris; E78.5 Hyperlipidemia, unspecified; G89.29 Other chronic pain; M54.5 Low back pain; H54.42 Blindness, left eye, normal vision right eye; Z79.4 Long term (current) use of insulin; Z87.440 Personal history of urinary (tract) infections; Z87.01 Personal history of pneumonia (recurrent); Z95.1 Presence of aortocoronary bypass graft; Z95.5 Presence of coronary angioplasty implant and graft; Z88.0 Allergy status to penicillin

== ENCOUNTER 2017-08-30 06:41 | Inpatient (IN) | payer MEDICAID ==
[2017-08-30 07:02] VITALS: BMI 32.2
--- NOTE | 2017-08-30 07:26 | ED PDOC ---
HPI:STROKE - Time Time: 07:15 - Historian Historian: Patient - Onset Date: 08/30/17 Time: 06:00 Onset: Hours (x2) - Timing Timing: Resolved - Context Context: Home - Location Locate right:: Upper extremity, Lower extremity - Notes: Notes:: Jennifer Crouch is a 77 year old female with a past medical history of anemia, brain tumor, and diabetes who presents to the ED due to numbness and tingling of her RUE and RLE at 06:00 today. Reports symptoms lasted 30 minutes and then resolved. Denies associated headache, weakness, or changes in vision. Patient states she had a similar episode February 2017 and was evaluated at [facility] where she was told she had a mini stroke. Patient says she followed up with her neurologist who told her it wasn't a stroke and the cause of her symptoms was undetermined. Patient has had 3 normal MRIs in February, March, and May. Also had a brain tumor resection in 2001. PMD: Sridhar Oliver MD Past Medical History Reviewed: Historical Data, Nursing Documentation, Vital Signs Vital Signs: Last Vital Signs Temp 97.5 F L 08/30/17 07:03 Pulse 76 08/30/17 07:03 Resp 16 08/30/17 07:03 BP 130/82 08/30/17 07:03 Pulse Ox 96 08/30/17 07:03 - Medical History PMH: Anemia, Anxiety, Arthritis, Asthma, Back Problems, Bronchitis, CAD, CHF, COPD, Depression, Diabetes, Gastritis, HTN, Hypercholesterolemia, Hyperlipidemia , Hypothyroidism, Peripheral Edema, Pneumonia Denies: HIV, Chronic Kidney Disease, Rheumatoid Arthritis - Surgical History Surgical History: CABG (x4), Cholecystectomy, Coronary Stent Denies: Pacemaker Other surgeries: Brain tumor resection (2001) - Family History Family History: States: Unknown Family Hx - Social History Current smoker - smoking cessation education provided: No Alcohol: None Drugs: Denies - Home Medications Home Medications: Ambulatory Orders Medication Instructions Recorded Aspirin [Ecotrin] 81 mg PO DAILY 01/12/17 Carvedilol [Coreg] 3.125 mg PO DAILY 01/12/17 Insulin Human (NPH)/Regular 25 unit SC DAILY 01/12/17 [Novolin 70/30 (70/30 units/ml) 10 ml] Levothyroxine [Synthroid] 100 mcg PO DAILY 01/12/17 Ranolazine [Ranexa] 1,000 mg PO BID 01/12/17 Acetaminophen with Codeine 1 tab PO Q8H PRN 01/22/17 [Tylenol with Codeine #3 Tablet] Atorvastatin [Lipitor] 40 mg PO HS 02/01/17 Loratadine [Claritin] 10 mg PO DAILY 02/01/17 Furosemide [Lasix] 20 mg PO Q72H 03/17/17 ALPRAZolam [Xanax] 0.25 mg PO HS PRN #5 04/08/17 Ascorbic Acid [Vitamin C 500 mg 1,000 mg PO BID tab 06/07/17 Tab] Docusate [Colace] 200 mg PO DAILY cap 06/07/17 Lactulose [Enulose] 20 gm PO DAILY 06/07/17 Nystatin [Nystop Topical Powder] 1 applic TOP TID bottle 06/07/17 ALPRAZolam [Xanax] 0.25 mg PO HS PRN tab 06/16/17 Clotrimazole 1% [Lotrimin AF 1%] 1 applic TOP BID bottle 06/16/17 Insulin Detemir [Levemir] 8 units SC HS vial 06/16/17 Insulin Lispro Mix 75/25 [HumaLog 26 units SC ACD vial 06/16/17 MIX 75/25] Insulin Lispro Mix 75/25 [HumaLog 38 units SC ACB vial 06/16/17 MIX 75/25] - Allergies Allergies/Adverse Reactions: Allergies Allergy/AdvReac Type Severity Reaction Status Date / Time kiwi Allergy Mild RASH Verified 08/30/17 07:04 morphine Allergy Mild RASH Verified 08/30/17 07:04 Penicillins Allergy Mild RASH Verified 08/30/17 07:04 pineapple Allergy Mild RASH Verified 08/30/17 07:04 watermelon Allergy Mild RASH Verified 08/30/17 07:04 Review of Systems ROS Statement: Except As Marked, All Systems Reviewed And Found Negative Eyes: Negative for: Vision Change Neurological: Positive for: Numbness, Other (Tingling). Negative for: Weakness , Headache Physical Exam - Reviewed Nursing Documentation Reviewed: Yes Vital Signs Reviewed: Yes - Physical Exam Appears: Positive for: Well, Non-toxic, No Acute Distress Head Exam: Positive for: ATRAUMATIC, NORMAL INSPECTION, NORMOCEPHALIC Skin: Positive for: Normal Color, Warm, Dry Eye Exam: Positive for: EOMI, Normal appearance, PERRL Neck: Positive for: Normal, Painless ROM, Supple Cardiovascular/Chest: Positive for: Regular Rate, Rhythm. Negative for: Murmur Respiratory: Positive for: Normal Breath Sounds. Negative for: Respiratory Distress Gastrointestinal/Abdominal: Positive for: Normal Exam, Bowel Sounds, Soft. Negative for: Tenderness Back: Positive for: Normal Inspection. Negative for: L CVA Tenderness, R CVA Tenderness, Vertebral Tenderness Extremity: Positive for: Normal ROM. Negative for: Pedal Edema, Deformity Neurologic/Psych: Positive for: Alert, Oriented. Negative for: Motor/Sensory Deficits - ECG O2 Sat by Pulse Oximetry: 96 (RA) Pulse Ox Interpretation: Normal Medical Decision Making Medical Decision Making: Time: 07:20 Initial Impression: Resolved paresthesia Plan: --Reevaluation Scribe Attestation: Documented by Jose Kent acting as a scribe for Yissel Liu MD. Scribe Attestation: All medical record entries made by the Scribe were at my direction and personally dictated by me. I have reviewed the chart and agree that the record accurately reflects my personal performance of the history, physical exam, medical decision making, and the department course for this patient. I have also personally directed, reviewed, and agree with the discharge instructions and disposition. Disposition - Disposition
--- NOTE | 2017-08-30 08:06 | ED PDOC ---
Syncope/Near Syncope/Dizziness Time Seen by Provider: 08/30/17 07:07 Chief Complaint (Nursing): Syncope Chief Complaint (Provider): Syncope History Per: Patient, Family History/Exam Limitations: no limitations Onset/Duration Of Symptoms: Mins (prior to arrival) Current Symptoms Are (Timing): Still Present Additional Complaint(s): Jennifer Crouch is a 77 year old female with a past medical history of dementia who was brought to the ED by family after having a syncopal episode prior to arrival. Patient's states he placed her on a commode to have a bowel movement and she then had a syncopal episode lasting 40 minutes. Patient in ER with baseline mental status. Reports chest pain when she takes a deep breath. Family states patient did not suffer head trauma or fall to the ground. PMD: Sridhar Oliver MD Past Medical History Reviewed: Historical Data, Nursing Documentation, Vital Signs Vital Signs: Last Vital Signs Temp 97.5 F L 08/30/17 07:03 Pulse 76 08/30/17 07:03 Resp 16 08/30/17 07:03 BP 130/82 08/30/17 07:03 Pulse Ox 96 08/30/17 07:03 - Medical History PMH: Anemia, Anxiety, Arthritis, Asthma, Back Problems, Bronchitis, CAD, CHF, COPD, Depression, Diabetes, Gastritis, HTN, Hypercholesterolemia, Hyperlipidemia , Hypothyroidism, Peripheral Edema, Pneumonia Denies: HIV, Chronic Kidney Disease, Rheumatoid Arthritis - Surgical History Surgical History: CABG (x4), Cholecystectomy, Coronary Stent Denies: Pacemaker - Family History Family History: States: Unknown Family Hx - Home Medications Home Medications: Ambulatory Orders Medication Instructions Recorded Aspirin [Ecotrin] 81 mg PO DAILY 01/12/17 Carvedilol [Coreg] 3.125 mg PO DAILY 01/12/17 Levothyroxine [Synthroid] 100 mcg PO DAILY 01/12/17 Ranolazine [Ranexa] 1,000 mg PO BID 01/12/17 Acetaminophen with Codeine 1 tab PO Q8H PRN 01/22/17 [Tylenol with Codeine #3 Tablet] Atorvastatin [Lipitor] 40 mg PO HS 02/01/17 Loratadine [Claritin] 10 mg PO DAILY 02/01/17 Furosemide [Lasix] 20 mg PO Q72H 03/17/17 ALPRAZolam [Xanax] 0.25 mg PO HS PRN tab 06/16/17 Calcium Carbonate/Vitamin D3 1 tab PO DAILY 08/30/17 [Calcium 600 + Vit D Tablet] Docusate [Colace] 100 mg PO DAILY PRN 08/30/17 Gabapentin [Neurontin] 100 mg PO BID PRN 08/30/17 Insulin Human NPH/Reg [HumuLIN 20 - 25 unit SC DAILY 08/30/17 70/30 (NPH/Reg)] Phenazopyridine [Pyridium] 200 mg PO BID PRN 08/30/17 - Allergies Allergies/Adverse Reactions: Allergies Allergy/AdvReac Type Severity Reaction Status Date / Time kiwi Allergy Mild RASH Verified 08/30/17 07:04 morphine Allergy Mild RASH Verified 08/30/17 07:04 Penicillins Allergy Mild RASH Verified 08/30/17 07:04 pineapple Allergy Mild RASH Verified 08/30/17 07:04 watermelon Allergy Mild RASH Verified 08/30/17 07:04 Review of Systems Review Of Systems: ROS cannot be obtained secondary to pt's inabilty to answer questions. (dementia) Physical Exam - Reviewed Nursing Documentation Reviewed: Yes Vital Signs Reviewed: Yes - Physical Exam Appears: Positive for: Well, Non-toxic, No Acute Distress Head Exam: Positive for: ATRAUMATIC, NORMAL INSPECTION, NORMOCEPHALIC Skin: Positive for: Normal Color, Warm, Dry Eye Exam: Positive for: EOMI, Normal appearance, PERRL Neck: Positive for: Normal, Painless ROM, Supple Cardiovascular/Chest: Positive for: Regular Rate, Rhythm. Negative for: Murmur Respiratory: Positive for: Crackles (bilateral) Gastrointestinal/Abdominal: Positive for: Normal Exam, Bowel Sounds, Soft. Negative for: Tenderness Back: Positive for: Normal Inspection. Negative for: L CVA Tenderness, R CVA Tenderness, Vertebral Tenderness Extremity: Positive for: Normal ROM. Negative for: Pedal Edema, Deformity Neurologic/Psych: Negative for: Alert, Oriented, Facial Droop, Other (AAO x3) - Laboratory Results Result Diagrams: 08/31/17 05:00 08/31/17 05:00 - ECG O2 Sat by Pulse Oximetry: 96 (RA) Pulse Ox Interpretation: Normal Medical Decision Making Medical Decision Making: Time: 07:54 Initial Impression: Syncope, CHF Plan: --CT head w/o contrast --EKG --CMP --Troponin I --ED urine dipstick --CBC w/ differential --Partial thromboplastin time --Prothrombin time --X-Ray chest portable --Glucose, Blood, POC --Urinalysis --Reevaluation Time: 09:02 CT Head Findings: HEMORRHAGE: No intracranial hemorrhage. BRAIN: There are severe chronic microangiopathic changes. There is no mass, mass effect or abnormal extra-axial fluid collection. There are coarse atherosclerotic calcifications in the cavernous carotid arteries. VENTRICLES: There is mild age-related global parenchymal volume loss and proportionate enlargement of the ventricles and cortical sulci. CALVARIUM: The skull base and calvarium are normal. PARANASAL SINUSES: There is chronic right posterior ethmoid and left maxillary sinusitis. MASTOID AIR CELLS: Predominantly clear. OTHER FINDINGS: None. IMPRESSION: No acute intracranial abnormality. Severe chronic microangiopathic changes and mild age-related global parenchymal volume loss. Chronic right posterior ethmoid and left maxillary sinusitis. Scribe Attestation: Documented by Jose Kent acting as a scribe for Yissel Liu MD. Scribe Attestation: All medical record entries made by the Scribe were at my direction and personally dictated by me. I have reviewed the chart and agree that the record accurately reflects my personal performance of the history, physical exam, medical decision making, and the department course for this patient. I have also personally directed, reviewed, and agree with the discharge instructions and disposition. Disposition - Clinical Impression Clinical Impression: Syncope, Chest pain - Patient ED Disposition Is Patient to be Admitted: Yes - Disposition Disposition Time: 10:00 Condition: STABLE - Pt Status Changed To: Hospital Disposition Of: Inpatient - Admit Certification Admit to Inpatient:: After my assessment, the patient will require hospitalization for at least two midnights. This is because of the severity of symptoms shown, intensity of services needed, and/or the medical risk in this patient being treated as an outpatient. - POA Present On Arrival: None
[2017-08-30 08:33] LABS: BASO % 0.5 % (0.0-2.0); EOS # 0.3 K/uL (0.0-0.7); EOS % 2.5 % (0.0-4.0); HEMATOCRIT 37.9 % (34.0-47.0); LYMPH # 1.9 K/uL (1.0-4.3); LYMPH % 18.7 % (20.0-40.0); MEAN CELL VOLUME 94.3 fl (81.0-99.0); MEAN CORPUSCULAR HGB CONC 32.9 g/dL (33.0-37.0); MEAN PLATELET VOLUME 8.9 fl (7.2-11.7); MONO # 0.8 K/uL (0.0-0.8); MONO % 8.4 % (0.0-10.0); NEUT % 69.9 % (50.0-75.0); NRBC % 0.1 % (0.0-0.0); RED CELL DISTRIBUTION WIDTH 13.3 % (11.5-14.5)
[2017-08-30 08:55] LABS: ALKALINE PHOSPHATASE 99 U/L (38-126); ALT/SGPT 30 U/L (9-52); AST/SGOT 25 U/L (14-36); BILIRUBIN,TOTAL 0.4 mg/dl (0.2-1.3); BLOOD UREA NITROGEN 23 mg/dl (7-17); CALCIUM 8.6 mg/dL (8.4-10.2); CARBON DIOXIDE 33 mmol/L (22-30); CHLORIDE 105 mmol/L (98-107); GFR AFRICAN-AMERICAN 48; GLUCOSE,RANDOM 199 mg/dL (65-105); POTASSIUM 4.5 MMOL/L (3.6-5.0); SODIUM 143 mmol/l (132-148); TOTAL PROTEIN 6.9 G/DL (6.3-8.2)
--- NOTE | 2017-08-30 09:03 | CT ---
PROCEDURE: CT HEAD WITHOUT CONTRAST. HISTORY: Syncope COMPARISON: 11/16/2016. TECHNIQUE: Axial computed tomography images were obtained through the head/brain without intravenous contrast. Radiation dose: Total exam DLP = 833.42 mGy-cm. This CT exam was performed using one or more of the following dose reduction techniques: Automated exposure control, adjustment of the mA and/or kV according to patient size, and/or use of iterative reconstruction technique. FINDINGS: HEMORRHAGE: No intracranial hemorrhage. BRAIN: There are severe chronic microangiopathic changes. There is no mass, mass effect or abnormal extra-axial fluid collection. There are coarse atherosclerotic calcifications in the cavernous carotid arteries. VENTRICLES: There is mild age-related global parenchymal volume loss and proportionate enlargement of the ventricles and cortical sulci. CALVARIUM: The skull base and calvarium are normal. PARANASAL SINUSES: There is chronic right posterior ethmoid and left maxillary sinusitis. MASTOID AIR CELLS: Predominantly clear. OTHER FINDINGS: None. IMPRESSION: No acute intracranial abnormality. Severe chronic microangiopathic changes and mild age-related global parenchymal volume loss. Chronic right posterior ethmoid and left maxillary sinusitis.
--- NOTE | 2017-08-30 11:56 | RAD ---
HISTORY: Syncope COMPARISON: 06/03/2017. FINDINGS: LUNGS: No active pulmonary disease. PLEURA: No significant pleural effusion identified, no pneumothorax apparent. CARDIOVASCULAR: No radiographic findings to suggest acute or significant cardiovascular disease. Incidental Finding(s): Postoperative changes related to sternotomy. OSSEOUS STRUCTURES: No significant abnormalities. VISUALIZED UPPER ABDOMEN: Normal. OTHER FINDINGS: None. IMPRESSION: No active disease. No significant interval change compared to the prior examination(s).
--- NOTE | 2017-08-30 13:43 | CARD ---
APPROVED REPORT EKG Measurement Heart [id number] <Conclusion> Normal sinus rhythm Normal ECG
--- NOTE | 2017-08-30 16:03 | CT ---
PROCEDURE: CT chest and abdomen HISTORY: chills, cough, fevers of unknown etiology COMPARISON: 06/03/2017 CT abdomen and pelvis 06/06/2017 renal ultrasound. TECHNIQUE: Unenhanced study. Neither oral nor intravenous contrast administered. Radiation dose: Total exam DLP = 1015.70 mGy-cm. This CT exam was performed using one or more of the following dose reduction techniques: Automated exposure control, adjustment of the mA and/or kV according to patient size, and/or use of iterative reconstruction technique. Contrast dose: FINDINGS: CT CHEST WITH CONTRAST: LUNGS: Subsegmental infiltrates/atelectasis lower lung matthew not seen previously. MEDIASTINUM: Unremarkable. Normal caliber aorta and pulmonary arterial trunk. No aortic dissection. Normal size heart. LYMPH NODES: Unremarkable. PLEURA: Unremarkable. No pneumothorax. No pleural fluid. BONES: Unremarkable. OTHER FINDINGS: None. CT ABDOMEN: LIVER: Unremarkable. No gross lesion or ductal dilatation. GALLBLADDER AND BILE DUCTS: Status post cholecystectomy. No abnormality is seen in the gallbladder fossa. PANCREAS: Unremarkable. No gross lesion or ductal dilatation. SPLEEN: Unremarkable. ADRENALS: Unremarkable. No mass. KIDNEYS AND URETERS: Unremarkable. No hydronephrosis. No solid mass. VASCULATURE: Unremarkable. No aortic aneurysm. BOWEL: Constipation without fecal impaction or obstruction. Pelvic loops of small bowel and colon are not visualized, this study was performed of the abdomen APPENDIX: Normal appendix. PERITONEUM: Unremarkable. No free fluid. No free air. LYMPH NODES: Unremarkable. No enlarged lymph nodes. BONES: No acute fracture. OTHER FINDINGS: None. IMPRESSION: Subsegmental infiltrate/atelectasis at the lung bases. The overall pattern in distribution can also be seen with aspiration pneumonia. Additional benign and/or incidental findings described above.
[2017-08-30] MEDS ORDERED: Sodium Chloride 0.45% 1,000 ML IV SCH (16:45)
--- NOTE | 2017-08-30 16:48 | CP.PCM.CON ---
History of Present Illness - History of Present Illness History of Present Illness: Consultation for syncope HPI: 77-year-old female with past medical history significant for hypertension coronary artery disease status post CABG about 10 years ago in 2007 at [facility] who was brought in after she was noted to have a syncopal episode while she was having defecation on the commode. Patient apparently passed out which lasted for about 40 minutes on arrival of the EMS she was noted to have a normal pulse normotensive apparently patient's eat in the ER return her baseline mental status according to the daughter and family at bedside she has been having ongoing episodes of intermittent chest pain described as a pressure-like sensation with relieved by sublingual nitroglycerin she also gets these pains related to arthritis involving the joints of the feet the family says they can differentiate the 2 pains. Patient was apparently supposed to undergo stress test as an outpatient but due to scheduling the daughter could not keep up with that appointment on the last 3 visits. She now complains with these above episodes of chest discomfort she is minimally active over the course of last 2 years and can barely walk with the help of a walker. Past medical history as stated above significant for arthritis asthma anxiety anemia back problem bronchitis CAD status post angioplasty stenting congestive heart failure diastolic dysfunction COPD depression diabetes gastritis hypertension hyperlipidemia hypothyroidism peripheral vascular disease pneumonia. Surgical history significant for CABG 4 cholecystectomy coronary artery stenting. Patient's home medications include aspirin 81 mg daily Coreg 3.125 mg p.o. daily Synthroid 100 mcg p.o. daily Ranexa thousand milligrams p.o. twice daily Lipitor 40 mg p.o. nightly Claritin 10 mg p.o. daily Lasix 20 mg p.o. every other day Xanax 0.25 mg nightly as needed calcium and vitamin D tablets Colace 100 mg p.o. daily Neurontin 100 p.o. twice daily insulin 70 3020 units in the morning and 20 mg in the knee and by edema 200 mg p.o. twice daily as needed. Allergies patient is allergic to kiwi morphine penicillin pineapples and watermelon. . In the emergency room patient underwent a CT of the head which showed severe microangiopathic changes with no acute changes. There was no intra-or acute intracranial abnormality noted. Review of Systems - Review of Systems Systems not reviewed;Unavailable: Acuity of Condition - Constitutional Constitutional: As Per HPI - EENT Eyes: As Per HPI Ears: As Per HPI Nose/Mouth/Throat: As Per HPI - Breasts Breasts: As Per HPI - Cardiovascular Cardiovascular: As Per HPI - Respiratory Respiratory: As Per HPI - Gastrointestinal Gastrointestinal: As Per HPI - Genitourinary Genitourinary: As Per HPI - Reproductive: Female Reproductive:Female: As Per HPI - Menstruation Menstruation: As Per HPI - Musculoskeletal Musculoskeletal: As Per HPI - Integumentary Integumentary: As Per HPI - Neurological Neurological: As Per HPI - Psychiatric Psychiatric: As Per HPI - Endocrine Endocrine: As Per HPI - Hematologic/Lymphatic Hematologic: As Per HPI Past Patient History - Infectious Disease Hx of Infectious Diseases: None - Past Medical History & Family History Past Medical History?: Yes - Past Social History Smoking Status: Never Smoked - CARDIAC Hx Congestive Heart Failure: Yes Hx Hypercholesterolemia: Yes Hx Hypertension: Yes Hx Pacemaker: No Hx Peripheral Edema: Yes - PULMONARY Hx Asthma: Yes Hx Bronchitis: Yes Hx Chronic Obstructive Pulmonary Disease (COPD): Yes Hx Pneumonia: Yes - NEUROLOGICAL Hx Neurological Disorder: No - HEENT Other/Comment: Hard of hear R ear., left eye blind - RENAL Hx Chronic Kidney Disease: No - ENDOCRINE/METABOLIC Hx Hypothyroidism: Yes - HEMATOLOGICAL/ONCOLOGICAL Hx Anemia: Yes Hx Human Immunodeficiency Virus (HIV): No - INTEGUMENTARY Hx Dermatological Problems: No - MUSCULOSKELETAL/RHEUMATOLOGICAL Hx Arthritis: Yes Hx Rheumatoid Arthritis: No - GASTROINTESTINAL Hx Gastritis: Yes - GENITOURINARY/GYNECOLOGICAL Hx Genitourinary Disorders: Yes Hx Incontinence: Yes Hx Urinary Tract Infection: Yes - PSYCHIATRIC Hx Anxiety: Yes Hx Depression: Yes - SURGICAL HISTORY Hx Cholecystectomy: Yes Hx Coronary Artery Bypass Graft: Yes (x4) Hx Coronary Stent: Yes - ANESTHESIA Hx Anesthesia: Yes Hx Anesthesia Reactions: No Hx Malignant Hyperthermia: No Meds Allergies/Adverse Reactions: Allergies Allergy/AdvReac Type Severity Reaction Status Date / Time kiwi Allergy Mild RASH Verified 08/30/17 07:04 morphine Allergy Mild RASH Verified 08/30/17 07:04 Penicillins Allergy Mild RASH Verified 08/30/17 07:04 pineapple Allergy Mild RASH Verified 08/30/17 07:04 watermelon Allergy Mild RASH Verified 08/30/17 07:04 - Medications Medications: Current Medications Acetaminophen (Tylenol 325mg Tab) 650 mg PO Q6 PRN PRN Reason: Fever >100.4 F Alprazolam (Xanax) 0.25 mg PO HS PRN PRN Reason: Insomnia Stop: 09/06/17 12:21 Aspirin (Ecotrin) 81 mg PO DAILY [facility] Atorvastatin Calcium (Lipitor) 40 mg PO HS [facility] Docusate Sodium (Colace) 100 mg PO DAILY PRN PRN Reason: Constipation Enoxaparin Sodium (Lovenox) 30 mg SC DAILY [facility] PRN Reason: Protocol Gabapentin (Neurontin) 100 mg PO BID PRN PRN Reason: Nerve pain/neuropathy Sodium Chloride (Sodium Chloride 0.45%) 1,000 mls @ 80 mls/hr IV .[id number] [facility] Stop: 08/31/17 16:35 Clindamycin Phosphate 600 mg/ (Sodium Chloride) 54 mls @ 50 mls/hr IVPB Q8 VEA PRN Reason: Protocol Insulin Human Regular (Humulin R) 0 units SC ACHS EVA PRN Reason: Protocol Insulin Lispro Protam/Lispro Human (Humalog Mix 75/25) 20 units SC DAILY [facility] Levofloxacin/Dextrose (Levaquin 750mg) 750 mg IVPB DAILY [facility] Levothyroxine Sodium (Synthroid) 100 mcg PO DAILY [facility] Loratadine (Claritin) 10 mg PO DAILY [facility] Ondansetron HCl (Zofran Inj) 4 mg IVP Q6 PRN PRN Reason: Nausea/Vomiting Last Admin: 08/30/17 12:55 Dose: 4 mg Phenazopyridine HCl (Pyridium) 200 mg PO BID PRN PRN Reason: Urinary discomt Physical Exam - Constitutional Appears: Well - Head Exam Head Exam: ATRAUMATIC, NORMAL INSPECTION, NORMOCEPHALIC - Eye Exam Eye Exam: EOMI, Normal appearance, PERRL Pupil Exam: NORMAL ACCOMODATION, PERRL - ENT Exam ENT Exam: Mucous Membranes Moist, Normal Exam - Neck Exam Neck exam: Positive for: Normal Inspection - Respiratory Exam Respiratory Exam: Clear to Auscultation Bilateral, NORMAL BREATHING PATTERN - Cardiovascular Exam Cardiovascular Exam: REGULAR RHYTHM, RRR, +S1, +S2, Systolic Murmur - GI/Abdominal Exam GI & Abdominal Exam: Normal Bowel Sounds, Soft. absent: Tenderness - Extremities Exam Extremities exam: Positive for: normal inspection - Back Exam Back exam: NORMAL INSPECTION - Neurological Exam Neurological exam: Alert, CN II-XII Intact, Normal Gait, Oriented x3, Reflexes Normal - Psychiatric Exam Psychiatric exam: Normal Affect, Normal Mood - Skin Skin Exam: Dry, Intact, Normal Color, Warm Results - Vital Signs Recent Vital Signs: Last Vital Signs Temp 100.3 F H 08/30/17 16:17 Pulse 97 H 08/30/17 16:17 Resp 20 08/30/17 16:17 BP 148/70 08/30/17 16:17 Pulse Ox 96 08/30/17 16:17 - Labs Result Diagrams: 08/31/17 05:00 08/31/17 05:00 Labs: Laboratory Results - last 24 hr 08/30/17 08/30/17 08/30/17 06:45 08:14 08:14 WBC 10.0 RBC 4.02 Hgb 12.5 D Hct 37.9 MCV 94.3 MCH 31.0 MCHC 32.9 L RDW 13.3 Plt Count 180 MPV 8.9 Neut % (Auto) 69.9 Lymph % (Auto) 18.7 L Ransom % (Auto) 8.4 Eos % (Auto) 2.5 Baso % (Auto) 0.5 Neut # 7.0 Lymph # 1.9 Ransom # 0.8 Eos # 0.3 Baso # 0.0 PT INR APTT Sodium 143 Potassium 4.5 Chloride 105 Carbon Dioxide 33 H Anion Gap 10 BUN 23 H Creatinine 1.3 H Est GFR ( Amer) 48 Est GFR (Non-Af Amer) 40 POC Glucose (mg/dL) 206 H Random Glucose 199 H Calcium 8.6 Total Bilirubin 0.4 AST 25 ALT 30 Alkaline Phosphatase 99 Troponin I < 0.0120 Total Protein 6.9 Albumin 3.4 L Globulin 3.5 Albumin/Globulin Ratio 1.0 08/30/17 08/30/17 08:14 12:26 WBC RBC Hgb Hct MCV MCH MCHC RDW Plt Count MPV Neut % (Auto) Lymph % (Auto) Ransom % (Auto) Eos % (Auto) Baso % (Auto) Neut # Lymph # Ransom # Eos # Baso # PT 11.7 INR 1.1 APTT 32.0 Sodium Potassium Chloride Carbon Dioxide Anion Gap BUN Creatinine Est GFR ( Amer) Est GFR (Non-Af Amer) POC Glucose (mg/dL) 276 H Random Glucose Calcium Total Bilirubin AST ALT Alkaline Phosphatase Troponin I Total Protein Albumin Globulin Albumin/Globulin Ratio Assessment & Plan (1) Syncope Assessment and Plan: etiology ? ischemic vs. arrhythmic monitor on telemetry IVF hydration Status: Acute Priority: High (2) Chest pain Assessment and Plan: further w/u with stress test cont home cardiac meds Status: Chronic Priority: Medium (3) CHF (congestive heart failure) Assessment and Plan: cont coreg and lasix Status: Acute (4) Dehydration Status: Acute (5) Dizziness Status: Acute (6) Hx of CABG Status: Chronic Priority: Medium (7) Hypercholesterolemia Assessment and Plan: cont lipitor Status: Chronic Priority: Medium (8) Type 2 diabetes mellitus with hyperglycemia Status: Chronic Priority: High
--- NOTE | 2017-08-30 16:56 | CP.PCM.HP ---
History of Present Illness - History of Present Illness History of Present Illness: CC: Syncope. 77 y/o F with multiple chronic medical conditions was brought to ER [facility], [place] by EMS to be evaluated for syncope, onset 5:30 to 6:00 AM DOA As per , he placed her in the commode to have a BM very early in AM when suddenly she had a witnessed syncope lasting for 35-40 minutes, non injury associated, Pt did not fell in the floor. Worsening symptoms: LOC, after syncope, Pt did not recall Hx of episode, multiple yellowish vomiting/nausea. Aggravated factor: intermittent C/P past several weeks , Pt non ambulatory. Denied: palpitations, SOB, cough, sick contact. CT Head: No acute intracranial abnormality. Present on Admission - Present on Admission Any Indicators Present on Admission: No Review of Systems - Review of Systems Systems not reviewed;Unavailable: Acuity of Condition, Other (forgetful, unable to give reliable answer questions.) Past Patient History - Infectious Disease Hx of Infectious Diseases: None - Past Medical History & Family History Past Medical History?: Yes Pertinent Family History: Unknown - Past Social History Smoking Status: Never Smoked Alcohol: None Drugs: Denies Home Situation {Lives}: With Family - CARDIAC Hx Cardiac Disorders: Yes Hx Congestive Heart Failure: Yes Hx Hypercholesterolemia: Yes Hx Hypertension: Yes Hx Pacemaker: No Hx Peripheral Edema: Yes Hx Peripheral Vascular Disease: Yes Other/Comment: CABG - PULMONARY Hx Respiratory Disorders: Yes Hx Asthma: Yes Hx Bronchitis: Yes Hx Chronic Obstructive Pulmonary Disease (COPD): Yes Hx Pneumonia: Yes - NEUROLOGICAL Hx Neurological Disorder: Yes Other/Comment: Dementia - HEENT Hx HEENT Problems: Yes Other/Comment: Hard of hear R ear., left eye blind - RENAL Hx Chronic Kidney Disease: No - ENDOCRINE/METABOLIC Hx Endocrine Disorders: Yes Hx Diabetes Mellitus Type 2: Yes Hx Hypothyroidism: Yes - HEMATOLOGICAL/ONCOLOGICAL Hx Blood Disorders: Yes Hx Anemia: Yes Hx Human Immunodeficiency Virus (HIV): No - INTEGUMENTARY Hx Dermatological Problems: No - MUSCULOSKELETAL/RHEUMATOLOGICAL Hx Musculoskeletal Disorders: Yes Hx Arthritis: Yes Hx Back Pain: Yes Hx Falls: Yes Hx Rheumatoid Arthritis: No - GASTROINTESTINAL Hx Gastrointestinal Disorders: Yes Hx Gastritis: Yes - GENITOURINARY/GYNECOLOGICAL Hx Genitourinary Disorders: Yes Hx Incontinence: Yes Hx Urinary Tract Infection: Yes - PSYCHIATRIC Hx Psychophysiologic Disorder: Yes Hx Anxiety: Yes Hx Depression: Yes - SURGICAL HISTORY Hx Surgeries: Yes Hx Cholecystectomy: Yes Hx Coronary Artery Bypass Graft: Yes (x4) Hx Coronary Stent: Yes - ANESTHESIA Hx Anesthesia: Yes Hx Anesthesia Reactions: No Hx Malignant Hyperthermia: No Meds Allergies/Adverse Reactions: Allergies Allergy/AdvReac Type Severity Reaction Status Date / Time kiwi Allergy Mild RASH Verified 08/30/17 07:04 morphine Allergy Mild RASH Verified 08/30/17 07:04 Penicillins Allergy Mild RASH Verified 08/30/17 07:04 pineapple Allergy Mild RASH Verified 08/30/17 07:04 watermelon Allergy Mild RASH Verified 08/30/17 07:04 Physical Exam - Constitutional Appears: No Acute Distress, Chronically Ill - Head Exam Head Exam: NORMAL INSPECTION - Eye Exam Eye Exam: PERRL (R eye, L eye blind) - ENT Exam ENT Exam: Normal Exam Additional comments: Hard of hearing R ear - Neck Exam Neck exam: Positive for: Normal Inspection - Respiratory Exam Respiratory Exam: Decreased Breath Sounds (at bases) - Cardiovascular Exam Cardiovascular Exam: REGULAR RHYTHM, Systolic Murmur - GI/Abdominal Exam GI & Abdominal Exam: Normal Bowel Sounds, Soft. absent: Guarding, Rebound - Extremities Exam Additional comments: L TMA - Back Exam Back exam: tenderness - Neurological Exam Additional comments: Forgetful, follows commands, generalized weakness, - Psychiatric Exam Psychiatric exam: Anxious - Skin Skin Exam: Warm Results - Vital Signs Recent Vital Signs: Last Vital Signs Temp 100.3 F H 08/30/17 16:17 Pulse 97 H 08/30/17 16:17 Resp 20 08/30/17 16:17 BP 148/70 08/30/17 16:17 Pulse Ox 96 08/30/17 16:17 reviewed Cheryl - Labs Result Diagrams: 09/03/17 05:40 09/03/17 05:40 Labs: Laboratory Results - last 24 hr 08/30/17 08/30/17 08/30/17 06:45 08:14 08:14 WBC 10.0 RBC 4.02 Hgb 12.5 D Hct 37.9 MCV 94.3 MCH 31.0 MCHC 32.9 L RDW 13.3 Plt Count 180 MPV 8.9 Neut % (Auto) 69.9 Lymph % (Auto) 18.7 L Rabun % (Auto) 8.4 Eos % (Auto) 2.5 Baso % (Auto) 0.5 Neut # 7.0 Lymph # 1.9 Rabun # 0.8 Eos # 0.3 Baso # 0.0 PT INR APTT Sodium 143 Potassium 4.5 Chloride 105 Carbon Dioxide 33 H Anion Gap 10 BUN 23 H Creatinine 1.3 H Est GFR ( Amer) 48 Est GFR (Non-Af Amer) 40 POC Glucose (mg/dL) 206 H Random Glucose 199 H Calcium 8.6 Total Bilirubin 0.4 AST 25 ALT 30 Alkaline Phosphatase 99 Troponin I < 0.0120 Total Protein 6.9 Albumin 3.4 L Globulin 3.5 Albumin/Globulin Ratio 1.0 08/30/17 08/30/17 08/30/17 08:14 12:26 16:39 WBC RBC Hgb Hct MCV MCH MCHC RDW Plt Count MPV Neut % (Auto) Lymph % (Auto) Rabun % (Auto) Eos % (Auto) Baso % (Auto) Neut # Lymph # Rabun # Eos # Baso # PT 11.7 INR 1.1 APTT 32.0 Sodium Potassium Chloride Carbon Dioxide Anion Gap BUN Creatinine Est GFR ( Amer) Est GFR (Non-Af Amer) POC Glucose (mg/dL) 276 H 303 H Random Glucose Calcium Total Bilirubin AST ALT Alkaline Phosphatase Troponin I Total Protein Albumin Globulin Albumin/Globulin Ratio reviewed J.P. - Imaging and Cardiology CT scan - head Status: Report reviewed by me ([email or web address]) Assessment & Plan (1) Syncope Status: Acute Priority: High (2) Aspiration pneumonia Status: Acute (3) Chest pain Status: Acute Priority: Medium (4) CHF (congestive heart failure) Status: Chronic (5) Headache Status: Acute (6) Type 2 diabetes mellitus with hyperglycemia Status: Chronic Priority: High (7) COPD (chronic obstructive pulmonary disease) Status: Chronic Priority: Medium (8) Hypothyroidism Status: Chronic Priority: Medium (9) Anxiety Status: Chronic Priority: Medium (10) Hx of CABG Status: Chronic Priority: Medium (11) Osteoarthritis Status: Chronic (12) Diabetes mellitus Status: Chronic - Assessment and Plan (Free Text) Plan: F/U CT Chest shows Aspiation PNA, Levaquin, Clinda, Neurontin , Zofan, Synthroid, IV fluid and rest of Tx. Cardiology and neuro consult. - Date & Time Date: 08/30/17 Time: 09:00
[2017-08-30] MEDS ORDERED: Clindamycin 600mg/50ml NS 600 MG/50 ML BAG IVPB SCH ×2 (17:00→17:15)
--- NOTE | 2017-08-30 18:44 | US ---
PROCEDURE: Duplex ultrasound of the carotid and vertebral arteries. HISTORY: syncope COMPARISON: 10/06/2013 TECHNIQUE: Grayscale and duplex Doppler evaluation of the cervical carotid and vertebral arteries were performed. The common carotid, carotid bifurcations and cervical ICA and proximal ECA were evaluated. The vertebral arteries were evaluated for gross patency and direction. FINDINGS: RIGHT CAROTID ARTERIES: Common Carotid Artery: Intimal thickening is present Maximal flow velocity of 88.6 cm/s. Carotid Bifurcation: Normal. Internal Carotid Artery:Heterogeneous plaque formation. Maximal flow velocity of 135.2 cm/s. External Carotid Artery (proximal branches): Normal. Maximal flow velocity of 129.8 cm/s. ICA/CCA Ratio: 1.5 LEFT CAROTID ARTERIES: Common Carotid Artery: Intimal thickening is present Maximal flow velocity of 119.4 cm/s. Carotid Bifurcation: Normal. Internal Carotid Artery:Heterogeneous plaque formation. Maximal flow velocity of 106.6 cm/s. External Carotid Artery (proximal branches): Normal. Maximal flow velocity of 206.0 cm/s. ICA/CCA Ratio: 0.9 VERTEBRAL ARTERIES: Right Vertebral Artery: Patent. Antegrade flow. Left Vertebral Artery: Patent. Antegrade flow. OTHER FINDINGS: None. IMPRESSION: Right ICA degree of stenosis: 50- 69%. Left ICA degree of stenosis: Less than 50% Elevated peak systolic velocities in the left external carotid artery. Reference Internal Carotid Artery (ICA) Peak Systolic Velocity (PSV) for above: 1. Less than 50% stenosis less than 125 cm/s peak systolic velocity 2. 50-69% stenosis 125-230cm/s peak systolic velocity 3. Greater than 70% but less than near occlusion greater than 230 cm/s peak systolic velocity
[2017-08-30] MEDS: Insulin Regular 100 units/ml SC SCH ×2 (18:50→22:33)
[2017-08-30] MEDS: Clindamycin 600mg/50ml NS 600 MG/50 ML BAG IVPB SCH (20:00)
[2017-08-30] MEDS: levoFLOXacin 750 mg in D5W 750 MG/150 ML BAG IVPB SCH (21:00)
[2017-08-30] MEDS ORDERED: levoFLOXacin 750 mg in D5W 150 ML BAG IVPB SCH (21:00)
--- NOTE | 2017-08-31 00:26 | CP.PCM.CON ---
History of Present Illness - History of Present Illness History of Present Illness: Evaluated for syncope, She was out of it for 40 minutes. Onset 5:30 to 6:00 AM HIRA Crouch is a 77 year old female with a past medical history of dementia who was brought to the ED by family after having a syncopal episode prior to arrival. Patient's states he placed her on a commode to have a bowel movement and she then had a syncopal episode lasting 40 minutes. She was shaking the whole body and her 4 extremities for 30 min to 40 minutes and they thought she was feeling cold. This was followed by a fever and sleepiness. Patient in ER with baseline mental status. Reports chest pain when she takes a deep breath. Family states patient did not suffer head trauma or fall to the ground. ABG is showing a significant hypercarbia and Hypoxia His was told that there are plans to increase the O2 administered to him. 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 she is not walking since several months and has low back Pain. Denies: HIV, Chronic Kidney Disease, Rheumatoid Arthritis, Cardiac Pacemaker - Surgical History Surgical History: CABG (x4), Cholecystectomy, Coronary Stent Denies: Pacemaker - Family History Family History: States: Unknown Family Hx - Home Medications Home Medications: Ambulatory Orders Medication Instructions Recorded Aspirin [Ecotrin] 81 mg PO DAILY 01/12/17 Carvedilol [Coreg] 3.125 mg PO DAILY 01/12/17 Levothyroxine [Synthroid] 100 mcg PO DAILY 01/12/17 Ranolazine [Ranexa] 1,000 mg PO BID 01/12/17 Acetaminophen with Codeine 1 tab PO Q8H PRN 01/22/17 [Tylenol with Codeine #3 Tablet] Atorvastatin [Lipitor] 40 mg PO HS 02/01/17 Loratadine [Claritin] 10 mg PO DAILY 02/01/17 Furosemide [Lasix] 20 mg PO Q72H 03/17/17 ALPRAZolam [Xanax] 0.25 mg PO HS PRN tab 06/16/17 Calcium Carbonate/Vitamin D3 1 tab PO DAILY 08/30/17 [Calcium 600 + Vit D Tablet] Docusate [Colace] 100 mg PO DAILY PRN 08/30/17 Gabapentin [Neurontin] 100 mg PO BID PRN 08/30/17 Insulin Human NPH/Reg [HumuLIN 20 - 25 unit SC DAILY 08/30/17 70/30 (NPH/Reg)] Phenazopyridine [Pyridium] 200 mg PO BID PRN 08/30/17 - Allergies Allergies/Adverse Reactions: Allergies Allergy/AdvReac Type Severity Reaction Status Date / Time kiwi Allergy Mild RASH Verified 08/30/17 07:04 morphine Allergy Mild RASH Verified 08/30/17 07:04 Penicillins Allergy Mild RASH Verified 08/30/17 07:04 pineapple Allergy Mild RASH Verified 08/30/17 07:04 watermelon Allergy Mild RASH Verified 08/30/17 07:04 Review of Systems Review Of Systems: ROS cannot be obtained secondary to pt's inabilty to answer questions. (dementia) Physical Exam - Reviewed Nursing Documentation Reviewed: Yes Vital Signs Reviewed: Yes - Physical Exam Appears: Positive for: Well, Non-toxic, No Acute Distress Head Exam: Positive for: ATRAUMATIC, NORMAL INSPECTION, NORMOCEPHALIC Skin: Positive for: Normal Color, Warm, Dry Eye Exam: Positive for: EOMI, Normal appearance, PERRL Neck: Positive for: Normal, Painless ROM, Supple Cardiovascular/Chest: Positive for: Regular Rate, Rhythm. Negative for: Murmur Respiratory: Positive for: Crackles (bilateral) Gastrointestinal/Abdominal: Positive for: Normal Exam, Bowel Sounds, Soft. Negative for: Tenderness Back: Positive for: Normal Inspection. Negative for: L CVA Tenderness, R CVA Tenderness, Vertebral Tenderness Extremity: Positive for: Normal ROM. Negative for: Pedal Edema, Deformity Neurologic/Psych: Negative for: Alert, Oriented, Facial Droop, Other (AAO x3) IMPRESSION of CT Brain: No acute intracranial abnormality. Severe chronic microangiopathic changes and mild age-related global parenchymal volume loss. Chronic right posterior ethmoid and left maxillary sinusitis. Past Patient History - Infectious Disease Hx of Infectious Diseases: None - Past Medical History & Family History Past Medical History?: Yes - Past Social History Smoking Status: Never Smoked Alcohol: None Drugs: Denies Home Situation {Lives}: With Family - CARDIAC Hx Cardiac Disorders: Yes Hx Congestive Heart Failure: Yes Hx Hypercholesterolemia: Yes Hx Hypertension: Yes Hx Pacemaker: No Hx Peripheral Edema: Yes - PULMONARY Hx Respiratory Disorders: Yes Hx Asthma: Yes Hx Bronchitis: Yes Hx Chronic Obstructive Pulmonary Disease (COPD): Yes Hx Pneumonia: Yes - NEUROLOGICAL Hx Neurological Disorder: No - HEENT Hx HEENT Problems: Yes Other/Comment: Hard of hear R ear., left eye blind - RENAL Hx Chronic Kidney Disease: No - ENDOCRINE/METABOLIC Hx Endocrine Disorders: Yes Hx Hypothyroidism: Yes - HEMATOLOGICAL/ONCOLOGICAL Hx Blood Disorders: Yes Hx Anemia: Yes Hx Human Immunodeficiency Virus (HIV): No - INTEGUMENTARY Hx Dermatological Problems: No - MUSCULOSKELETAL/RHEUMATOLOGICAL Hx Musculoskeletal Disorders: Yes Hx Arthritis: Yes Hx Falls: Yes Hx Rheumatoid Arthritis: No - GASTROINTESTINAL Hx Gastrointestinal Disorders: Yes Hx Gastritis: Yes - GENITOURINARY/GYNECOLOGICAL Hx Genitourinary Disorders: Yes Hx Incontinence: Yes Hx Urinary Tract Infection: Yes - PSYCHIATRIC Hx Psychophysiologic Disorder: Yes Hx Anxiety: Yes Hx Depression: Yes - SURGICAL HISTORY Hx Surgeries: Yes Hx Cholecystectomy: Yes Hx Coronary Artery Bypass Graft: Yes (x4) Hx Coronary Stent: Yes - ANESTHESIA Hx Anesthesia: Yes Hx Anesthesia Reactions: No Hx Malignant Hyperthermia: No Meds Allergies/Adverse Reactions: Allergies Allergy/AdvReac Type Severity Reaction Status Date / Time kiwi Allergy Mild RASH Verified 08/30/17 07:04 morphine Allergy Mild RASH Verified 08/30/17 07:04 Penicillins Allergy Mild RASH Verified 08/30/17 07:04 pineapple Allergy Mild RASH Verified 08/30/17 07:04 watermelon Allergy Mild RASH Verified 08/30/17 07:04 - Medications Medications: Current Medications Acetaminophen (Tylenol 325mg Tab) 650 mg PO Q6 PRN PRN Reason: Fever >100.4 F Last Admin: 08/30/17 17:18 Dose: 650 mg Alprazolam (Xanax) 0.25 mg PO HS PRN PRN Reason: Insomnia Stop: 09/06/17 12:21 Aspirin (Ecotrin) 81 mg PO DAILY [facility] Atorvastatin Calcium (Lipitor) 40 mg PO HS [facility] Last Admin: 08/30/17 22:30 Dose: 40 mg Docusate Sodium (Colace) 100 mg PO DAILY PRN PRN Reason: Constipation Enoxaparin Sodium (Lovenox) 30 mg SC DAILY [facility] PRN Reason: Protocol Gabapentin (Neurontin) 100 mg PO BID PRN PRN Reason: Nerve pain/neuropathy Sodium Chloride (Sodium Chloride 0.45%) 1,000 mls @ 80 mls/hr IV .[id number] [facility] Stop: 08/31/17 16:35 Last Admin: 08/30/17 17:19 Dose: 80 mls/hr Levofloxacin/Dextrose (Levaquin 750mg) 750 mg in 150 mls @ 150 mls/hr IVPB DAILY [facility] Last Admin: 08/30/17 21:00 Dose: 150 mls/hr Clindamycin Phosphate (Cleocin In Normal Saline) 600 mg in 50 mls @ 50 mls/hr IVPB Q8 [facility] PRN Reason: Protocol Last Admin: 08/30/17 20:00 Dose: 50 mls/hr Insulin Human Regular (Humulin R) 0 units SC ACHS [facility] PRN Reason: Protocol Last Admin: 08/30/17 22:33 Dose: 4 u Insulin Lispro Protam/Lispro Human (Humalog Mix 75/25) 20 units SC DAILY [facility] Levothyroxine Sodium (Synthroid) 100 mcg PO DAILY [facility] Loratadine (Claritin) 10 mg PO DAILY [facility] Ondansetron HCl (Zofran Inj) 4 mg IVP Q6 PRN PRN Reason: Nausea/Vomiting Last Admin: 08/30/17 12:55 Dose: 4 mg Phenazopyridine HCl (Pyridium) 200 mg PO BID PRN PRN Reason: Urinary discomt Physical Exam - Neurological Exam Additional comments: Mental status: Awake alert, did not talk much smiley, her daughter is sitting next to her. She did not answer many questions to test her Orientation or memory Speech: Unable to assess. Cranial Nerves II to XII: Left eye blindness, lost her left eye 17 years ago in a surgery at [facility] for Retinal Detachment according to her daughter Chela Left eye is artificial Right eye pupil is R R 2 to 3 mm Reactive to light Normal Right EOM No facial asymmetry Central tongue Reported to have a scheduled swallowing evaluation. Motor: Normal Tone Power is 4/5 Symmetrically equal. left foot amputation. DTR is 0/4 Right Toes are down going Left Toes are absent Sensory: Reduced sensation peripherally to pain and touch in a glove and stoke Tested by facial reaction to youch Cerebellar: Unable to assess. Results - Vital Signs Recent Vital Signs: Last Vital Signs Temp 98 F 08/30/17 19:55 Pulse 82 08/30/17 19:55 Resp 20 08/30/17 19:55 BP 115/63 08/30/17 19:55 Pulse Ox 95 08/30/17 19:55 - Labs Result Diagrams: 08/30/17 08:14 08/30/17 08:14 Labs: Laboratory Results - last 24 hr 08/30/17 08/30/17 08/30/17 06:45 08:14 08:14 WBC 10.0 RBC 4.02 Hgb 12.5 D Hct 37.9 MCV 94.3 MCH 31.0 MCHC 32.9 L RDW 13.3 Plt Count 180 MPV 8.9 Neut % (Auto) 69.9 Lymph % (Auto) 18.7 L O'Brien % (Auto) 8.4 Eos % (Auto) 2.5 Baso % (Auto) 0.5 Neut # 7.0 Lymph # 1.9 O'Brien # 0.8 Eos # 0.3 Baso # 0.0 PT INR APTT Sodium 143 Potassium 4.5 Chloride 105 Carbon Dioxide 33 H Anion Gap 10 BUN 23 H Creatinine 1.3 H Est GFR ( Amer) 48 Est GFR (Non-Af Amer) 40 POC Glucose (mg/dL) 206 H Random Glucose 199 H Calcium 8.6 Total Bilirubin 0.4 AST 25 ALT 30 Alkaline Phosphatase 99 Troponin I < 0.0120 Total Protein 6.9 Albumin 3.4 L Globulin 3.5 Albumin/Globulin Ratio 1.0 08/30/17 08/30/17 08/30/17 08:14 12:26 16:39 WBC RBC Hgb Hct MCV MCH MCHC RDW Plt Count MPV Neut % (Auto) Lymph % (Auto) O'Brien % (Auto) Eos % (Auto) Baso % (Auto) Neut # Lymph # O'Brien # Eos # Baso # PT 11.7 INR 1.1 APTT 32.0 Sodium Potassium Chloride Carbon Dioxide Anion Gap BUN Creatinine Est GFR ( Amer) Est GFR (Non-Af Amer) POC Glucose (mg/dL) 276 H 303 H Random Glucose Calcium Total Bilirubin AST ALT Alkaline Phosphatase Troponin I Total Protein Albumin Globulin Albumin/Globulin Ratio 08/30/17 21:38 WBC RBC Hgb Hct MCV MCH MCHC RDW Plt Count MPV Neut % (Auto) Lymph % (Auto) O'Brien % (Auto) Eos % (Auto) Baso % (Auto) Neut # Lymph # O'Brien # Eos # Baso # PT INR APTT Sodium Potassium Chloride Carbon Dioxide Anion Gap BUN Creatinine Est GFR ( Amer) Est GFR (Non-Af Amer) POC Glucose (mg/dL) 420 H* Random Glucose Calcium Total Bilirubin AST ALT Alkaline Phosphatase Troponin I Total Protein Albumin Globulin Albumin/Globulin Ratio Assessment & Plan (1) Syncope Assessment and Plan: R/O Cardiac Syncope versus a spell of Seizure Miscellaneous causes of Syncope as SHANNAN, Anemia, Infection are to be ruled out. Status: Acute Priority: High (2) CHF (congestive heart failure) Status: Acute (3) Chr obstructive pulmonary disease w/ acute lower respiratory infxn Status: Acute (4) Chronic chest pain Assessment and Plan: Might be a factor in her Syncope Status: Acute (5) Chronic urinary tract infection Status: Acute Priority: High (6) Seizure Assessment and Plan: Seizures are to be ruled out Status: Acute (7) CVA (cerebral vascular accident) Assessment and Plan: Negative CT Brain. CVA work up is needed due to her preexisting condition. She has CHF, Coronary heart, 4 vessels CABG, high lipid profile, inactivity, dementia. Status: Acute
[2017-08-31] MEDS: Clindamycin 600mg/50ml NS 600 MG/50 ML BAG IVPB SCH ×3 (02:00→17:00)
[2017-08-31 05:30] LABS: HEMATOCRIT 32.4 % (34.0-47.0); MEAN CELL VOLUME 94.5 fl (81.0-99.0); MEAN CORPUSCULAR HEMOGLOBIN 30.6 pg (27.0-31.0); MEAN CORPUSCULAR HGB CONC 32.4 g/dL (33.0-37.0); RED CELL DISTRIBUTION WIDTH 13.2 % (11.5-14.5); WHITE BLOOD COUNT 11.9 K/uL (4.8-10.8)
[2017-08-31 05:37] LABS: POTASSIUM 4.8 MMOL/L (3.6-5.0); URIC ACID 5.9 mg/Dl (2.2-7.5)
[2017-08-31] MEDS: Insulin Regular 100 units/ml SC SCH ×5 (06:57→22:00)
[2017-08-31] MEDS ORDERED: Aminophylline 25 mg/ml Inj ONE (09:37)
[2017-08-31] MEDS: Levothyroxine 100 MCG TAB PO SCH (11:39)
[2017-08-31] MEDS: Enoxaparin 30 mg Syringe SC SCH (11:41)
[2017-08-31] MEDS: levoFLOXacin 750 mg in D5W 750 MG/150 ML BAG IVPB SCH (11:42)
[2017-08-31] MEDS: Insulin Lispro Mix 75/25 100 units/ml (HumaLog) 10ml SC SCH (11:43)
--- NOTE | 2017-08-31 11:57 | MRI ---
PROCEDURE: MRI BRAIN WITHOUT CONTRAST HISTORY: R/O Seizures COMPARISON: Noncontrast head CT from 08/30/2017 TECHNIQUE: Multiplanar, multisequence MR images of the brain were obtained without intravenous contrast enhancement. FINDINGS: HEMORRHAGE: None DWI: No evidence of an acute or early subacute infarction. BRAIN PARENCHYMA: There are severe chronic microangiopathic changes. There is no mass, mass effect or abnormal extra-axial fluid collection. The midline sagittal structures are normal. VENTRICLES: There is moderate age-related global parenchymal volume loss and proportionate enlargement of the ventricles and cortical sulci. CRANIUM: There is normal bone marrow signal pattern. ORBITS: The right orbit is normal in appearance. 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 PARANASAL SINUSES/MASTOIDS: There is chronic pansinusitis, worst in the left maxillary sinus. There is a left mastoid effusion. VASCULAR SYSTEM: Skull base flow voids intact. OTHER FINDINGS: None. IMPRESSION: No acute intracranial abnormality. Severe chronic microangiopathic changes and moderate age-related global parenchymal volume loss.
--- NOTE | 2017-08-31 14:45 | PCM.EEG ---
Electroencephalogram Report - Electroencephalogram Report Procedure Date: 08/30/17 Interpretation: Indication: Syncope. Medications were reviewed. Technical: This is a digitally recorded electroencephalogram. The international 10-20 electrode placement system is used for scalp electrode placement. Eighteen channels of scalp EEG are recorded Another channel was used for for ECG. The data are stored digitally and reviewed in reformatted montages for optimal display. Background: 9 to 10 hertz alpha activity was seen. Maximal over the posterior head region. These activities are symmetric on both sides. Small amount of beta activities are seen. Focal abnormality: Multiple left temporal lobe sharp wave discharges were noted periodically. Mainly over the Left temporal area. Impression: This EEG is abnormal. Epileptiform discharge was seen. This can represent a potential seizure focus. Clinical correlation is needed.
--- NOTE | 2017-08-31 16:43 | CP.PCM.PN ---
Subjective - Date & Time of Evaluation Date of Evaluation: 08/31/17 Time of Evaluation: 11:00 - Subjective Subjective: F/U Syncope/ Asp PNA Pt with no c/o today, returned from Stress Test. Objective - Vital Signs/Intake and Output Vital Signs (last 24 hours): Temp Pulse Resp BP Pulse Ox 98.2 F 74 16 151/67 H 100 08/31/17 15:40 08/31/17 15:40 08/31/17 15:40 08/31/17 15:40 08/31/17 15:40 - Medications Medications: Current Medications Acetaminophen (Tylenol 325mg Tab) 650 mg PO Q6 PRN PRN Reason: Fever >100.4 F Last Admin: 08/30/17 17:18 Dose: 650 mg Alprazolam (Xanax) 0.25 mg PO HS PRN PRN Reason: Insomnia Stop: 09/06/17 12:21 Aspirin (Ecotrin) 81 mg PO DAILY [facility] Last Admin: 08/31/17 11:40 Dose: 81 mg Atorvastatin Calcium (Lipitor) 40 mg PO HS [facility] Last Admin: 08/30/17 22:30 Dose: 40 mg Carvedilol (Coreg) 3.125 mg PO DAILY [facility] Docusate Sodium (Colace) 100 mg PO DAILY PRN PRN Reason: Constipation Enoxaparin Sodium (Lovenox) 30 mg SC DAILY [facility] PRN Reason: Protocol Last Admin: 08/31/17 11:41 Dose: 30 mg Furosemide (Lasix) 20 mg PO Q72H [facility] Gabapentin (Neurontin) 100 mg PO BID PRN PRN Reason: Nerve pain/neuropathy Levofloxacin/Dextrose (Levaquin 750mg) 750 mg in 150 mls @ 150 mls/hr IVPB DAILY [facility] Last Admin: 08/31/17 11:42 Dose: 150 mls/hr Clindamycin Phosphate (Cleocin In Normal Saline) 600 mg in 50 mls @ 50 mls/hr IVPB Q8 [facility] PRN Reason: Protocol Last Admin: 08/31/17 11:41 Dose: 50 mls/hr Insulin Human Regular (Humulin R) 0 units SC ACHS [facility] PRN Reason: Protocol Last Admin: 08/31/17 12:30 Dose: 3 u Insulin Lispro Protam/Lispro Human (Humalog Mix 75/25) 20 units SC DAILY [facility] Last Admin: 08/31/17 11:43 Dose: 20 units Lamotrigine (Lamictal) 25 mg PO BID [facility] Last Admin: 08/31/17 11:40 Dose: 25 mg Levothyroxine Sodium (Synthroid) 100 mcg PO DAILY [facility] Last Admin: 08/31/17 11:39 Dose: 100 mcg Loratadine (Claritin) 10 mg PO DAILY [facility] Last Admin: 08/31/17 11:40 Dose: 10 mg Ondansetron HCl (Zofran Inj) 4 mg IVP Q6 PRN PRN Reason: Nausea/Vomiting Last Admin: 08/30/17 12:55 Dose: 4 mg Phenazopyridine HCl (Pyridium) 200 mg PO BID PRN PRN Reason: Urinary discomt - Labs Labs: 08/31/17 05:00 08/31/17 05:00 PT 11.7 Seconds (9.8-13.1) 08/30/17 08:14 INR 1.1 (0.9-1.2) 08/30/17 08:14 APTT 32.0 Seconds (25.6-37.1) 08/30/17 08:14 - Constitutional Appears: No Acute Distress, Chronically Ill - Head Exam Head Exam: NORMAL INSPECTION - Eye Exam Eye Exam: PERRL (R eye, L eye blind.) - ENT Exam Additional comments: Hard of hearing R ear - Neck Exam Neck Exam: Normal Inspection - Respiratory Exam Respiratory Exam: Decreased Breath Sounds (at bases) - Cardiovascular Exam Cardiovascular Exam: REGULAR RHYTHM, Murmur - GI/Abdominal Exam GI & Abdominal Exam: Soft, Normal Bowel Sounds. absent: Guarding, Rebound - Extremities Exam Additional comments: L TMA - Back Exam Back Exam: NORMAL INSPECTION, tenderness - Neurological Exam Neurological Exam: Awake Additional comments: Forgetful, follows commands, generalized weakness. - Psychiatric Exam Psychiatric exam: Anxious - Skin Skin Exam: Warm Assessment and Plan (1) Syncope Status: Acute (2) Aspiration pneumonia Status: Acute (3) Chest pain Status: Acute (4) CHF (congestive heart failure) Status: Chronic (5) Type 2 diabetes mellitus with hyperglycemia Status: Chronic (6) COPD (chronic obstructive pulmonary disease) Status: Chronic (7) Hypothyroidism Status: Chronic (8) Anxiety Status: Chronic (9) Hx of CABG Status: Chronic (10) Diabetes mellitus Status: Chronic (11) Osteoarthritis Status: Chronic (12) Headache Status: Acute (13) Osteoarthritis Status: Acute (14) Carotid stenosis Status: Acute - Assessment and Plan (Free Text) Plan: F/U Stress test, continue Clinda, Levaquin and rest of Tx., Vascular consult.
[2017-08-31 17:15] LABS: RBC URINE < 1 /hpf (0-3); URINE BILIRUBIN NEGATIVE (NEGATIVE); URINE BLOOD NEGATIVE (NEGATIVE); URINE COLOR YELLOW (YELLOW); URINE GLUCOSE (UA) 150 mg/dL (Normal); URINE KETONE NEGATIVE (NEGATIVE); URINE LEUKOCYTE ESTERASE NEG Leu/uL (Negative); URINE PROTEIN 30 mg/dL (NEGATIVE); URINE UROBILINOGEN 0.2-1.0 mg/dL (0.2-1.0); WBC URINE < 1 /hpf (0-5)
--- NOTE | 2017-08-31 20:19 | CP.PCM.PN ---
Subjective - Date & Time of Evaluation Date of Evaluation: 08/31/17 Time of Evaluation: 20:18 - Subjective Subjective: stress test today Objective - Vital Signs/Intake and Output Vital Signs (last 24 hours): Temp Pulse Resp BP Pulse Ox 98.3 F 72 17 174/96 H 99 08/31/17 18:49 08/31/17 18:49 08/31/17 18:49 08/31/17 18:49 08/31/17 18:49 - Medications Medications: Current Medications Acetaminophen (Tylenol 325mg Tab) 650 mg PO Q6 PRN PRN Reason: Fever >100.4 F Last Admin: 08/30/17 17:18 Dose: 650 mg Alprazolam (Xanax) 0.25 mg PO HS PRN PRN Reason: Insomnia Stop: 09/06/17 12:21 Aspirin (Ecotrin) 81 mg PO DAILY [facility] Last Admin: 08/31/17 11:40 Dose: 81 mg Atorvastatin Calcium (Lipitor) 40 mg PO HS [facility] Last Admin: 08/30/17 22:30 Dose: 40 mg Carvedilol (Coreg) 3.125 mg PO DAILY [facility] Last Admin: 08/31/17 18:48 Dose: 3.125 mg Docusate Sodium (Colace) 100 mg PO DAILY PRN PRN Reason: Constipation Enoxaparin Sodium (Lovenox) 30 mg SC DAILY [facility] PRN Reason: Protocol Last Admin: 08/31/17 11:41 Dose: 30 mg Furosemide (Lasix) 20 mg PO Q72H [facility] Last Admin: 08/31/17 18:48 Dose: 20 mg Gabapentin (Neurontin) 100 mg PO BID PRN PRN Reason: Nerve pain/neuropathy Levofloxacin/Dextrose (Levaquin 750mg) 750 mg in 150 mls @ 150 mls/hr IVPB DAILY [facility] Last Admin: 08/31/17 11:42 Dose: 150 mls/hr Clindamycin Phosphate (Cleocin In Normal Saline) 600 mg in 50 mls @ 50 mls/hr IVPB Q8 [facility] PRN Reason: Protocol Last Admin: 08/31/17 17:00 Dose: 50 mls/hr Insulin Human Regular (Humulin R) 0 units SC ACHS [facility] PRN Reason: Protocol Last Admin: 08/31/17 17:00 Dose: Not Given Insulin Lispro Protam/Lispro Human (Humalog Mix 75/25) 20 units SC DAILY [facility] Last Admin: 08/31/17 11:43 Dose: 20 units Lamotrigine (Lamictal) 25 mg PO BID [facility] Last Admin: 08/31/17 18:45 Dose: 25 mg Levothyroxine Sodium (Synthroid) 100 mcg PO DAILY [facility] Last Admin: 08/31/17 11:39 Dose: 100 mcg Loratadine (Claritin) 10 mg PO DAILY [facility] Last Admin: 08/31/17 11:40 Dose: 10 mg Ondansetron HCl (Zofran Inj) 4 mg IVP Q6 PRN PRN Reason: Nausea/Vomiting Last Admin: 08/30/17 12:55 Dose: 4 mg Phenazopyridine HCl (Pyridium) 200 mg PO BID PRN PRN Reason: Urinary discomt - Labs Labs: 08/31/17 05:00 08/31/17 05:00 PT 11.7 Seconds (9.8-13.1) 08/30/17 08:14 INR 1.1 (0.9-1.2) 08/30/17 08:14 APTT 32.0 Seconds (25.6-37.1) 08/30/17 08:14 - Constitutional Appears: Well - Head Exam Head Exam: ATRAUMATIC, NORMAL INSPECTION, NORMOCEPHALIC - Eye Exam Eye Exam: EOMI, Normal appearance, PERRL Pupil Exam: NORMAL ACCOMODATION, PERRL - ENT Exam ENT Exam: Mucous Membranes Moist, Normal Exam - Neck Exam Neck Exam: Full ROM, Normal Inspection. absent: Lymphadenopathy - Respiratory Exam Respiratory Exam: Clear to Ausculation Bilateral, NORMAL BREATHING PATTERN - Cardiovascular Exam Cardiovascular Exam: REGULAR RHYTHM, RRR, +S1, +S2, Murmur - GI/Abdominal Exam GI & Abdominal Exam: Soft, Normal Bowel Sounds. absent: Tenderness - Extremities Exam Extremities Exam: Full ROM, Normal Capillary Refill, Normal Inspection. absent : Joint Swelling, Pedal Edema - Back Exam Back Exam: NORMAL INSPECTION - Neurological Exam Neurological Exam: Alert, Awake, CN II-XII Intact, Oriented x3 - Psychiatric Exam Psychiatric exam: Normal Affect, Normal Mood - Skin Skin Exam: Dry, Intact, Normal Color, Warm Assessment and Plan (1) Syncope Status: Acute (2) Chest pain Status: Chronic (3) CHF (congestive heart failure) Status: Acute (4) Dehydration Status: Acute (5) Dizziness Status: Acute (6) Hx of CABG Status: Chronic (7) Hypercholesterolemia Status: Chronic (8) Type 2 diabetes mellitus with hyperglycemia Status: Chronic
--- NOTE | 2017-08-31 22:41 | CP.PCM.PN ---
Subjective - Date & Time of Evaluation Date of Evaluation: 08/31/17 Time of Evaluation: 20:00 - Subjective Subjective: Carotid DOPPLER: IS SIGNIFICANT FOR RIGHT INTERNAL CAROTID ARTERY STENOSIS 50 [address]% CT CHEST: SHOWS FINDINGS C/W LUNG ATELECTASIS BILATERALLY. THIS MIGHT BE CONSISTENT WITH ASPIRATION PNEUMONIA. Patient is doing better She is awake alert Oriented X [address], disoriented to time She needs to have Vascular Surgery consult due to Carotid Artery Stenosis. VS are showing high Systolic pressure. IMPRESSION of MRI Brain: No acute intracranial abnormality. Severe chronic microangiopathic changes and moderate age-related global parenchymal volume loss. Objective - Vital Signs/Intake and Output Vital Signs (last 24 hours): Temp Pulse Resp BP Pulse Ox 98.3 F 72 17 174/96 H 99 08/31/17 18:49 08/31/17 21:00 08/31/17 18:49 08/31/17 18:49 08/31/17 18:49 - Medications Medications: Current Medications Acetaminophen (Tylenol 325mg Tab) 650 mg PO Q6 PRN PRN Reason: Fever >100.4 F Last Admin: 08/30/17 17:18 Dose: 650 mg Alprazolam (Xanax) 0.25 mg PO HS PRN PRN Reason: Insomnia Stop: 09/06/17 12:21 Aspirin (Ecotrin) 81 mg PO DAILY [facility] Last Admin: 08/31/17 11:40 Dose: 81 mg Atorvastatin Calcium (Lipitor) 40 mg PO HS [facility] Last Admin: 08/31/17 21:30 Dose: 40 mg Carvedilol (Coreg) 3.125 mg PO DAILY [facility] Last Admin: 08/31/17 18:48 Dose: 3.125 mg Docusate Sodium (Colace) 100 mg PO DAILY PRN PRN Reason: Constipation Enoxaparin Sodium (Lovenox) 30 mg SC DAILY [facility] PRN Reason: Protocol Last Admin: 08/31/17 11:41 Dose: 30 mg Furosemide (Lasix) 20 mg PO Q72H [facility] Last Admin: 08/31/17 18:48 Dose: 20 mg Gabapentin (Neurontin) 100 mg PO BID PRN PRN Reason: Nerve pain/neuropathy Levofloxacin/Dextrose (Levaquin 750mg) 750 mg in 150 mls @ 150 mls/hr IVPB DAILY [facility] Last Admin: 08/31/17 11:42 Dose: 150 mls/hr Clindamycin Phosphate (Cleocin In Normal Saline) 600 mg in 50 mls @ 50 mls/hr IVPB Q8 EVA PRN Reason: Protocol Last Admin: 08/31/17 17:00 Dose: 50 mls/hr Insulin Human Regular (Humulin R) 0 units SC ACHS EVA PRN Reason: Protocol Last Admin: 08/31/17 17:00 Dose: Not Given Insulin Lispro Protam/Lispro Human (Humalog Mix 75/25) 20 units SC DAILY [facility] Last Admin: 08/31/17 11:43 Dose: 20 units Lamotrigine (Lamictal) 25 mg PO BID [facility] Last Admin: 08/31/17 18:45 Dose: 25 mg Levothyroxine Sodium (Synthroid) 100 mcg PO DAILY [facility] Last Admin: 08/31/17 11:39 Dose: 100 mcg Loratadine (Claritin) 10 mg PO DAILY [facility] Last Admin: 08/31/17 11:40 Dose: 10 mg Ondansetron HCl (Zofran Inj) 4 mg IVP Q6 PRN PRN Reason: Nausea/Vomiting Last Admin: 08/30/17 12:55 Dose: 4 mg Phenazopyridine HCl (Pyridium) 200 mg PO BID PRN PRN Reason: Urinary discomt - Labs Labs: 08/31/17 05:00 08/31/17 05:00 PT 11.7 Seconds (9.8-13.1) 08/30/17 08:14 INR 1.1 (0.9-1.2) 08/30/17 08:14 APTT 32.0 Seconds (25.6-37.1) 08/30/17 08:14 Assessment and Plan (1) Syncope Status: Acute (2) CHF (congestive heart failure) Status: Acute (3) Chr obstructive pulmonary disease w/ acute lower respiratory infxn Status: Acute (4) Chronic chest pain Status: Acute (5) Chronic urinary tract infection Status: Acute (6) Seizure Status: Acute (7) CVA (cerebral vascular accident) Status: Acute
[2017-09-01] MEDS: Clindamycin 600mg/50ml NS 600 MG/50 ML BAG IVPB SCH ×3 (00:14→19:08)
[2017-09-01] MEDS: levoFLOXacin 750 mg in D5W 750 MG/150 ML BAG IVPB SCH (08:50)
[2017-09-01] MEDS: Enoxaparin 30 mg Syringe SC SCH (08:55)
[2017-09-01] MEDS: Levothyroxine 100 MCG TAB PO SCH (08:55)
[2017-09-01] MEDS: Insulin Regular 100 units/ml SC SCH ×4 (08:57→22:03)
[2017-09-01] MEDS: Insulin Lispro Mix 75/25 100 units/ml (HumaLog) 10ml SC SCH (08:57)
--- NOTE | 2017-09-01 10:51 | RAD ---
HISTORY: f/u COMPARISON: 08/30/2017. FINDINGS: LUNGS: There is mild pulmonary venous congestion. There is bibasilar atelectasis. No focal consolidation. PLEURA: No significant pleural effusion identified, no pneumothorax apparent. CARDIOVASCULAR: The heart is normal in size. Status post CABG. OSSEOUS STRUCTURES: No significant abnormalities. VISUALIZED UPPER ABDOMEN: Normal. OTHER FINDINGS: None. IMPRESSION: Mild pulmonary venous congestion and bibasilar atelectasis.
[2017-09-01 11:15] LABS: HEMATOCRIT 32.9 % (34.0-47.0); MEAN CELL VOLUME 96.1 fl (81.0-99.0); MEAN CORPUSCULAR HEMOGLOBIN 30.7 pg (27.0-31.0); MEAN CORPUSCULAR HGB CONC 31.9 g/dL (33.0-37.0); WHITE BLOOD COUNT 7.5 K/uL (4.8-10.8)
[2017-09-01 11:31] LABS: CALCIUM 8.1 mg/dL (8.4-10.2)
--- NOTE | 2017-09-01 11:32 | PQF GENQUE ---
, CVA ruled in or ruled out? OR: Other explanation of clinical finding OR: Unable to determine 08/30 Neurology consult diagnoses include: : 7) CVA (cerebral vascular accident) Assessment and Plan: Negative CT Brain. CVA work up is needed due to her preexisting condition. She has CHF, Coronary heart, 4 vessels CABG, high lipid profile, inactivity, dementia. Status: Acute 08/31 Neurology note; (7) CVA (cerebral vascular accident) Status: Acute This form is a permanent part of the medical record Clarification of your documentation is requested to better reflect the severity of illness and intensity of treatment of your patient. Indicators present [] Specify: [] [] Specify: [] [] Specify: [] [] Specify: [] Location in the medical record that reflects the above clinical findings: [] Treatment Provided: [] PHYSICIAN'S RESPONSE Based on your medical judgment of the clinical indicators outlined above please clarify the following: [] Practitioner response [] If unable to determine, please check the box, sign and date. Present On Admission (POA) Indicator: [] Present at the time of admission [] Not present at the time of admission [] Clinically Undetermined In responding to this query, please exercise your independent professional judgment. The fact that a question is asked does not imply that any particular answer is desired or expected. Thank you for your clarification on this documentation. If you have any questions please call. * Thank you, Viji Lopez RN ext. #[phone] MTDH
--- NOTE | 2017-09-01 11:41 | PQF GENQUE ---
Dr. Oliver, Etiology of Syncope? if known after the work up is completed OR: Unable to determine OR:Other explanation of clinical finding CVA ruled in or ruled out? OR: Other explanation of clinical finding OR: Unable to determine 08/30 Neurology consult: Assessment and Plan: (1) Syncope; R/O Cardiac Syncope versus a spell of Seizure Miscellaneous causes of Syncope as SHANNAN, Anemia, Infection are to be ruled out. Assessment and Plan:Might be a factor in her Syncope 08/30 Cardiology consult: (1) Syncope Assessment and Plan: etiology ? ischemic vs. arrhythmic monitor on telemetry IVF hydration Status: Acute This form is a permanent part of the medical record Clarification of your documentation is requested to better reflect the severity of illness and intensity of treatment of your patient. Indicators present [] Specify: [] [] Specify: [] [] Specify: [] [] Specify: [] Location in the medical record that reflects the above clinical findings: [] Treatment Provided: [] PHYSICIAN'S RESPONSE Based on your medical judgment of the clinical indicators outlined above please clarify the following: [] Practitioner response [] If unable to determine, please check the box, sign and date. Present On Admission (POA) Indicator: [] Present at the time of admission [] Not present at the time of admission [] Clinically Undetermined In responding to this query, please exercise your independent professional judgment. The fact that a question is asked does not imply that any particular answer is desired or expected. Thank you for your clarification on this documentation. If you have any questions please call * Thank you, Viji Lopez RN ext. #[phone] MTDD
--- NOTE | 2017-09-01 11:52 | PQF GENQUE ---
Dr. Oliver, Please specify the type and acuity of heart failure in your progress notes: 1. TYPE: Combined systolic and diastolic Diastolic Systolic Other (please specify) Clinically unable to determine Unknown 2. ACUITY: Acute Chronic Acute on chronic Other (please specify) Clinically unable to determine Unknown Cardiology consult 08/30: PMH: CAD status post angioplasty stenting congestive heart failure diastolic dysfunction Asssessment includes: (3) CHF (congestive heart failure) Assessment and Plan:cont coreg and lasix Status: Acute Physician orders include: Lasix 20 mg PO Q 72 hrs and coreg 3.125 mg PO daily 08/30 CXR: IMPRESSION: No active disease. No significant interval change compared to the prior examination(s). 08/30 CT Chest: Impression: Subsegmental infiltrate/atelectasis at the lung bases. The overall pattern in distribution can also be seen with aspiration pneumonia. This form is a permanent part of the medical record Clarification of your documentation is requested to better reflect the severity of illness and intensity of treatment of your patient. Indicators present [] Specify: [] [] Specify: [] [] Specify: [] [] Specify: [] Location in the medical record that reflects the above clinical findings: [] Treatment Provided: [] PHYSICIAN'S RESPONSE Based on your medical judgment of the clinical indicators outlined above please clarify the following: [] Practitioner response [] If unable to determine, please check the box, sign and date. Present On Admission (POA) Indicator: [] Present at the time of admission [] Not present at the time of admission [] Clinically Undetermined In responding to this query, please exercise your independent professional judgment. The fact that a question is asked does not imply that any particular answer is desired or expected. Thank you for your clarification on this documentation. If you have any questions please call. * Thank you, Viji Lopez RN ext. #[phone] MTDD
--- NOTE | 2017-09-01 12:07 | CP.PCM.PN ---
Subjective - Date & Time of Evaluation Date of Evaluation: 09/01/17 Time of Evaluation: 11:20 - Subjective Subjective: F/U Aspiration PNA/ Syncope. no AD Objective - Vital Signs/Intake and Output Vital Signs (last 24 hours): Temp Pulse Resp BP Pulse Ox 96.7 F L 73 20 143/69 98 09/01/17 08:00 09/01/17 08:52 09/01/17 08:00 09/01/17 08:52 09/01/17 08:00 - Medications Medications: Current Medications Acetaminophen (Tylenol 325mg Tab) 650 mg PO Q6 PRN PRN Reason: Fever >100.4 F Last Admin: 08/30/17 17:18 Dose: 650 mg Alprazolam (Xanax) 0.25 mg PO HS PRN PRN Reason: Insomnia Stop: 09/06/17 12:21 Aspirin (Ecotrin) 81 mg PO DAILY [facility] Last Admin: 09/01/17 08:53 Dose: 81 mg Atorvastatin Calcium (Lipitor) 40 mg PO HS [facility] Last Admin: 08/31/17 21:30 Dose: 40 mg Carvedilol (Coreg) 3.125 mg PO DAILY [facility] Last Admin: 09/01/17 08:52 Dose: 3.125 mg Docusate Sodium (Colace) 100 mg PO DAILY PRN PRN Reason: Constipation Enoxaparin Sodium (Lovenox) 30 mg SC DAILY [facility] PRN Reason: Protocol Last Admin: 09/01/17 08:55 Dose: 30 mg Furosemide (Lasix) 20 mg PO Q72H [facility] Last Admin: 08/31/17 18:48 Dose: 20 mg Gabapentin (Neurontin) 100 mg PO BID PRN PRN Reason: Nerve pain/neuropathy Levofloxacin/Dextrose (Levaquin 750mg) 750 mg in 150 mls @ 150 mls/hr IVPB DAILY [facility] Last Admin: 09/01/17 08:50 Dose: 150 mls/hr Clindamycin Phosphate (Cleocin In Normal Saline) 600 mg in 50 mls @ 50 mls/hr IVPB Q8 EVA PRN Reason: Protocol Last Admin: 09/01/17 08:51 Dose: 50 mls/hr Insulin Human Regular (Humulin R) 0 units SC ACHS EVA PRN Reason: Protocol Last Admin: 09/01/17 08:57 Dose: Not Given Insulin Lispro Protam/Lispro Human (Humalog Mix 75/25) 20 units SC DAILY [facility] Last Admin: 09/01/17 08:57 Dose: Not Given Lamotrigine (Lamictal) 25 mg PO BID [facility] Last Admin: 09/01/17 08:55 Dose: 25 mg Levothyroxine Sodium (Synthroid) 100 mcg PO DAILY [facility] Last Admin: 09/01/17 08:55 Dose: 100 mcg Loratadine (Claritin) 10 mg PO DAILY [facility] Last Admin: 09/01/17 08:51 Dose: 10 mg Ondansetron HCl (Zofran Inj) 4 mg IVP Q6 PRN PRN Reason: Nausea/Vomiting Last Admin: 08/30/17 12:55 Dose: 4 mg Phenazopyridine HCl (Pyridium) 200 mg PO BID PRN PRN Reason: Urinary discomt - Labs Labs: 09/01/17 10:40 09/01/17 10:40 PT 11.7 Seconds (9.8-13.1) 08/30/17 08:14 INR 1.1 (0.9-1.2) 08/30/17 08:14 APTT 32.0 Seconds (25.6-37.1) 08/30/17 08:14 - Constitutional Appears: No Acute Distress, Chronically Ill - Head Exam Head Exam: NORMAL INSPECTION - Eye Exam Eye Exam: PERRL (r eye, L eye blind) - ENT Exam Additional comments: Hard of hearing R ear - Neck Exam Neck Exam: Normal Inspection - Respiratory Exam Respiratory Exam: Decreased Breath Sounds (at bases) - Cardiovascular Exam Cardiovascular Exam: REGULAR RHYTHM, Murmur - GI/Abdominal Exam GI & Abdominal Exam: Soft, Normal Bowel Sounds. absent: Guarding, Rebound - Extremities Exam Additional comments: L TMA - Back Exam Back Exam: NORMAL INSPECTION, tenderness - Neurological Exam Neurological Exam: Awake Additional comments: Forgetful, follows commands, generalized weakness. - Psychiatric Exam Psychiatric exam: Anxious - Skin Skin Exam: Warm Assessment and Plan (1) Syncope Status: Acute (2) Aspiration pneumonia Status: Acute (3) Chest pain Status: Acute (4) CHF (congestive heart failure) Status: Chronic (5) Type 2 diabetes mellitus with hyperglycemia Status: Chronic (6) COPD (chronic obstructive pulmonary disease) Status: Chronic (7) Hypothyroidism Status: Chronic (8) Anxiety Status: Chronic (9) Hx of CABG Status: Chronic (10) Diabetes mellitus Status: Chronic (11) Headache Status: Acute (12) PVD (peripheral vascular disease) Status: Chronic (13) Carotid stenosis Status: Chronic - Assessment and Plan (Free Text) Plan: f/u STT , f/u Vascular consult , continue current treatment
--- NOTE | 2017-09-01 13:24 | CARD ---
APPROVED REPORT Protocol: LEXISCAN Test Type: Stress Nuclear Medications: ASA 81mg, Carvedilol 3.125mg, Levothyroxine 100 mcg, Ranexa 1000mg, Tylenol with Codeine #3, Atorfastatin 40mg, Loratadine 10mg, Furosemide 20mg, Alprazolam 0.25mg Calcium/Vitamin D 1 tab, Levenox 30mg, Insulin , Neurontin 100mg, lamictal 25mg, Medical History: [place], PTCA, Hypertension, CABG 17 yrs in [place], CHF, Asthma, COPD, Cholesterol , Diabetes, Anxiety, Brochitis, CAD, Depression, Hyperlipidemia, Hypothyroidism, Peripheral Edema, UTI, Left eye blind, Heraing difficulty in right ear. 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 Target HR: 141 bpm Resting ECG: normal Resting Heart Rate: 82 bpm Resting Blood Pressure: 158/83mmHg submaximum (85%): 120 bpm TEST SUMMARY PREINJECTPRE-[id number]. [id number]. INJECTIONNS FLUSH00:[id number]/83.0. INJECTIONNUC MED00:[id number]/80.0. [id number]/63.0. PROCEDURE Pharmacologic stress testing was performed using 0.4mg per 5ml of regadenoson given intravenously over 7-10 seconds. Reversal agent aminophyline 50 mg, given intravenously for Headache. POST EXERCISE Reason for Termination: completed protocol Target HR: No Max HR: 86 bpm 62% of Maximum Predicted HR: 141 bpm Exercise duration: 00:47 min:sec, 0 Stage Exercise capacity: 1.0METs Max Blood Pressure: 168/80mmHg Blood Pressure response to exercise: n/a Heart Rate response to exercise: n/a Chest Pain: Yes, limiting Angina index: 0 Arrhythmia: No, none ST Change: No, none Deviation: 0 mm EXAM: Myocardial Perfusion REST/STRESS Image QualityGood Imaging Protocol The imaging protocol used to acquire images was Rest Tc-99m/stress Tc-99m 1 day Rest Spect myocardial perfusion imaging was performed in supine position 90 minutes following the injection of 10 mCi of Tc-99 Myoview. Time of rest injection: 7:54 Time of rest imagin:30 At peak stress, the patient was injected intravenously with 30mCi of Tc-99 tetrofosmin after an infusion time of minutes and seconds. Time of stress injection: 10:50 Time of stress imagin:20 Gated Stress Spect was performed 90 minutes after intravenous Tc-99 Myoview injection. The images were gated to evaluate regional wall motion and calculate ventricular ejection fraction. NUCLEAR IMAGE INTERPRETATION Study quality was good. Left Ventricular size was Normal at Rest and Stress. LV Perfusion 1 Perfusion Defect Location: basal anterolateral,basal anterolateral, mid inferolateral Perfusion Defect Size: Medium (3-4 segments) Perfusion Defect Severity: Severe Type of Perfusion Defect: Reversible TCD/TID: Yes CONCLUSION 1. - Medium sized severe intensity reversible defect involving the basal,mid and apical anterolateral segments 2. - Normal LVEF Recommendation - Further evaluation with invasive w/u is needed.
--- NOTE | 2017-09-01 14:43 | CP.PCM.PN ---
Subjective - Date & Time of Evaluation Date of Evaluation: 09/01/17 Time of Evaluation: 14:41 - Subjective Subjective: s/p stress test yesterday showing c/w ischemia Objective - Vital Signs/Intake and Output Vital Signs (last 24 hours): Temp Pulse Resp BP Pulse Ox 98.5 F 64 18 167/74 H 99 09/01/17 12:47 09/01/17 12:47 09/01/17 12:47 09/01/17 12:47 09/01/17 12:47 - Medications Medications: Current Medications Acetaminophen (Tylenol 325mg Tab) 650 mg PO Q6 PRN PRN Reason: Fever >100.4 F Last Admin: 08/30/17 17:18 Dose: 650 mg Alprazolam (Xanax) 0.25 mg PO HS PRN PRN Reason: Insomnia Stop: 09/06/17 12:21 Aspirin (Ecotrin) 81 mg PO DAILY [facility] Last Admin: 09/01/17 08:53 Dose: 81 mg Atorvastatin Calcium (Lipitor) 40 mg PO HS [facility] Last Admin: 08/31/17 21:30 Dose: 40 mg Carvedilol (Coreg) 3.125 mg PO DAILY [facility] Last Admin: 09/01/17 08:52 Dose: 3.125 mg Docusate Sodium (Colace) 100 mg PO DAILY PRN PRN Reason: Constipation Enoxaparin Sodium (Lovenox) 30 mg SC DAILY [facility] PRN Reason: Protocol Last Admin: 09/01/17 08:55 Dose: 30 mg Furosemide (Lasix) 20 mg PO Q72H [facility] Last Admin: 08/31/17 18:48 Dose: 20 mg Gabapentin (Neurontin) 100 mg PO BID PRN PRN Reason: Nerve pain/neuropathy Levofloxacin/Dextrose (Levaquin 750mg) 750 mg in 150 mls @ 150 mls/hr IVPB DAILY [facility] Last Admin: 09/01/17 08:50 Dose: 150 mls/hr Clindamycin Phosphate (Cleocin In Normal Saline) 600 mg in 50 mls @ 50 mls/hr IVPB Q8 EVA PRN Reason: Protocol Last Admin: 09/01/17 08:51 Dose: 50 mls/hr Insulin Human Regular (Humulin R) 0 units SC ACHS [facility] PRN Reason: Protocol Last Admin: 09/01/17 08:57 Dose: Not Given Insulin Lispro Protam/Lispro Human (Humalog Mix 75/25) 20 units SC DAILY [facility] Last Admin: 09/01/17 08:57 Dose: Not Given Lamotrigine (Lamictal) 25 mg PO BID [facility] Last Admin: 09/01/17 08:55 Dose: 25 mg Levothyroxine Sodium (Synthroid) 100 mcg PO DAILY [facility] Last Admin: 09/01/17 08:55 Dose: 100 mcg Loratadine (Claritin) 10 mg PO DAILY [facility] Last Admin: 09/01/17 08:51 Dose: 10 mg Ondansetron HCl (Zofran Inj) 4 mg IVP Q6 PRN PRN Reason: Nausea/Vomiting Last Admin: 08/30/17 12:55 Dose: 4 mg Phenazopyridine HCl (Pyridium) 200 mg PO BID PRN PRN Reason: Urinary discomt - Labs Labs: 09/01/17 10:40 09/01/17 10:40 PT 11.7 Seconds (9.8-13.1) 08/30/17 08:14 INR 1.1 (0.9-1.2) 08/30/17 08:14 APTT 32.0 Seconds (25.6-37.1) 08/30/17 08:14 - Constitutional Appears: Well - Head Exam Head Exam: ATRAUMATIC, NORMAL INSPECTION, NORMOCEPHALIC - Eye Exam Eye Exam: EOMI, Normal appearance, PERRL Pupil Exam: NORMAL ACCOMODATION, PERRL - ENT Exam ENT Exam: Mucous Membranes Moist, Normal Exam - Neck Exam Neck Exam: Full ROM, Normal Inspection. absent: Lymphadenopathy - Respiratory Exam Respiratory Exam: Clear to Ausculation Bilateral, NORMAL BREATHING PATTERN - Cardiovascular Exam Cardiovascular Exam: REGULAR RHYTHM, +S1, +S2, Murmur - GI/Abdominal Exam GI & Abdominal Exam: Soft, Normal Bowel Sounds. absent: Tenderness - Extremities Exam Extremities Exam: Full ROM, Normal Capillary Refill, Normal Inspection. absent : Joint Swelling, Pedal Edema - Back Exam Back Exam: NORMAL INSPECTION - Neurological Exam Neurological Exam: Alert, Awake, CN II-XII Intact, Normal Gait, Oriented x3 - Psychiatric Exam Psychiatric exam: Normal Affect, Normal Mood - Skin Skin Exam: Dry, Intact, Normal Color, Warm Assessment and Plan (1) Syncope Assessment & Plan: etiology ? ischemic event vs. arrhythmia induced nothing noted on telemetry stress test abnormal Status: Acute (2) Chest pain Assessment & Plan: further invasive w/u will plan for cath after discussing with and family keep pt on asa, bb, statins and nitrates Status: Chronic (3) CHF (congestive heart failure) Assessment & Plan: diastolic CHF etiology ? ischemic heart disease BP control Status: Acute (4) Dehydration Status: Acute (5) Dizziness Status: Acute (6) Hx of CABG Status: Chronic (7) Hypercholesterolemia Status: Chronic (8) Type 2 diabetes mellitus with hyperglycemia Status: Chronic
--- NOTE | 2017-09-01 16:16 | CP.PCM.CON ---
History of Present Illness - History of Present Illness History of Present Illness: Vascular surgery consult for Dr. Fely Pedroza, PGY-1 Pt S & E at bedside. 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 Pt had syncopal episode which prompted hospitalization, work up included carotid U/s, which was positive for R ICA stenosis of 50-69%. L ICA stenosis <50% w/elevated peak systolic velocities in L external carotid Artery. Pt reports hospitalization for syncopal episode with dizziness while moving her bowels at home. Admits to previous episodes of dizziness (w/o syncope) when moving her bowels, chronic constipation, R eye with spots in vision, headaches, occasional nausea, streaks of blood in stool. Denies F & C, PMH: Hx syncope, diastolic CHF, HTN, HLD, DM, CAD, arthritis, anxiety, anemia, back pain, hx bronchitis, COPD, asthma, depression, hearing loss R ear, L eye blind, hypothyroidism, gastritis, peripheral edema, urinary incontinence, hemorrhoids PSH: CABG 4 vessel (2007), CAD w/stents, cholecystectomy, L foot amputation, retina surgery (1999) due to detachment All: Morphine, PCN, pineapple, watermelon SH: Walks w/walker, denies ETOH, tobacco or illicit drug use Review of Systems - Review of Systems All systems: reviewed and no additional remarkable complaints except - Constitutional Constitutional: absent: Chills, Fever - EENT Eyes: Blind Spots (R eye, 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 absent: Vomiting - Genitourinary Genitourinary: Urinary Incontinence - Musculoskeletal Musculoskeletal: Back Pain (chronic) - Integumentary Integumentary: absent: Unusual Bruising - Neurological Neurological: Dizziness, Headaches, Weakness Past Patient History - Infectious Disease Hx of Infectious Diseases: None - Past Medical History & Family History Past Medical History?: Yes - Past Social History Smoking Status: Never Smoked Alcohol: None Drugs: Denies Home Situation {Lives}: With Family - CARDIAC Hx Cardiac Disorders: Yes Hx Congestive Heart Failure: Yes Hx Hypercholesterolemia: Yes Hx Hypertension: Yes Hx Pacemaker: No Hx Peripheral Edema: Yes - PULMONARY Hx Respiratory Disorders: Yes Hx Asthma: Yes Hx Bronchitis: Yes Hx Chronic Obstructive Pulmonary Disease (COPD): Yes Hx Pneumonia: Yes - NEUROLOGICAL Hx Neurological Disorder: No - HEENT Hx HEENT Problems: Yes Other/Comment: Hard of hear R ear., left eye blind - RENAL Hx Chronic Kidney Disease: No - ENDOCRINE/METABOLIC Hx Endocrine Disorders: Yes Hx Hypothyroidism: Yes - HEMATOLOGICAL/ONCOLOGICAL Hx Blood Disorders: Yes Hx Anemia: Yes Hx Human Immunodeficiency Virus (HIV): No - INTEGUMENTARY Hx Dermatological Problems: No - MUSCULOSKELETAL/RHEUMATOLOGICAL Hx Musculoskeletal Disorders: Yes Hx Arthritis: Yes Hx Falls: Yes Hx Rheumatoid Arthritis: No - GASTROINTESTINAL Hx Gastrointestinal Disorders: Yes Hx Gastritis: Yes - GENITOURINARY/GYNECOLOGICAL Hx Genitourinary Disorders: Yes Hx Incontinence: Yes Hx Urinary Tract Infection: Yes - PSYCHIATRIC Hx Psychophysiologic Disorder: Yes Hx Anxiety: Yes Hx Depression: Yes - SURGICAL HISTORY Hx Surgeries: Yes Hx Cholecystectomy: Yes Hx Coronary Artery Bypass Graft: Yes (x4) Hx Coronary Stent: Yes - ANESTHESIA Hx Anesthesia: Yes Hx Anesthesia Reactions: No Hx Malignant Hyperthermia: No Meds Allergies/Adverse Reactions: Allergies Allergy/AdvReac Type Severity Reaction Status Date / Time kiwi Allergy Mild RASH Verified 08/30/17 07:04 morphine Allergy Mild RASH Verified 08/30/17 07:04 Penicillins Allergy Mild RASH Verified 08/30/17 07:04 pineapple Allergy Mild RASH Verified 08/30/17 07:04 watermelon Allergy Mild RASH Verified 08/30/17 07:04 - Medications Medications: Current Medications Acetaminophen (Tylenol 325mg Tab) 650 mg PO Q6 PRN PRN Reason: Fever >100.4 F Last Admin: 08/30/17 17:18 Dose: 650 mg Alprazolam (Xanax) 0.25 mg PO HS PRN PRN Reason: Insomnia Stop: 09/06/17 12:21 Aspirin (Ecotrin) 81 mg PO DAILY [facility] Last Admin: 09/01/17 08:53 Dose: 81 mg Atorvastatin Calcium (Lipitor) 40 mg PO HS [facility] Last Admin: 08/31/17 21:30 Dose: 40 mg Carvedilol (Coreg) 3.125 mg PO DAILY [facility] Last Admin: 09/01/17 08:52 Dose: 3.125 mg Docusate Sodium (Colace) 100 mg PO DAILY PRN PRN Reason: Constipation Enoxaparin Sodium (Lovenox) 30 mg SC DAILY [facility] PRN Reason: Protocol Last Admin: 09/01/17 08:55 Dose: 30 mg Furosemide (Lasix) 20 mg PO Q72H [facility] Last Admin: 08/31/17 18:48 Dose: 20 mg Gabapentin (Neurontin) 100 mg PO BID PRN PRN Reason: Nerve pain/neuropathy Levofloxacin/Dextrose (Levaquin 750mg) 750 mg in 150 mls @ 150 mls/hr IVPB DAILY [facility] Last Admin: 09/01/17 08:50 Dose: 150 mls/hr Clindamycin Phosphate (Cleocin In Normal Saline) 600 mg in 50 mls @ 50 mls/hr IVPB Q8 [facility] PRN Reason: Protocol Last Admin: 09/01/17 08:51 Dose: 50 mls/hr Insulin Human Regular (Humulin R) 0 units SC ACHS [facility] PRN Reason: Protocol Last Admin: 09/01/17 15:58 Dose: 4 u Insulin Lispro Protam/Lispro Human (Humalog Mix 75/25) 20 units SC DAILY [facility] Last Admin: 09/01/17 08:57 Dose: Not Given Lamotrigine (Lamictal) 25 mg PO BID [facility] Last Admin: 09/01/17 16:00 Dose: 25 mg Levothyroxine Sodium (Synthroid) 100 mcg PO DAILY [facility] Last Admin: 09/01/17 08:55 Dose: 100 mcg Loratadine (Claritin) 10 mg PO DAILY [facility] Last Admin: 09/01/17 08:51 Dose: 10 mg Ondansetron HCl (Zofran Inj) 4 mg IVP Q6 PRN PRN Reason: Nausea/Vomiting Last Admin: 08/30/17 12:55 Dose: 4 mg Phenazopyridine HCl (Pyridium) 200 mg PO BID PRN PRN Reason: Urinary discomt Physical Exam - Constitutional Appears: Non-toxic, No Acute Distress - Head Exam Head Exam: ATRAUMATIC, NORMAL INSPECTION, NORMOCEPHALIC - Eye Exam Eye Exam: EOMI (R eye, not L), Normal appearance - ENT Exam ENT Exam: Mucous Membranes Moist, Normal Exam - Neck Exam Neck exam: Positive for: Full Rom, Normal Inspection Additional comments: no audible bruit bilaterally - Respiratory Exam Respiratory Exam: Clear to Auscultation Bilateral, NORMAL BREATHING PATTERN - Cardiovascular Exam Cardiovascular Exam: REGULAR RHYTHM, +S1, +S2 - GI/Abdominal Exam GI & Abdominal Exam: Normal Bowel Sounds, Soft. absent: Tenderness - Extremities Exam Extremities exam: Negative for: normal inspection (Left toe amputation - well healed) - Neurological Exam Neurological exam: Alert, Oriented x3 - Psychiatric Exam Psychiatric exam: Normal Affect, Normal Mood - Skin Skin Exam: Dry, Intact, Normal Color, Warm Results - Vital Signs Recent Vital Signs: Last Vital Signs Temp 98.3 F 09/01/17 15:57 Pulse 64 09/01/17 15:57 Resp 17 09/01/17 15:57 BP 199/72 H 09/01/17 15:57 Pulse Ox 99 09/01/17 15:57 - Labs Result Diagrams: 09/01/17 10:40 09/01/17 10:40 Labs: Laboratory Results - last 24 hr 08/31/17 08/31/17 08/31/17 05:00 05:00 16:17 WBC RBC Hgb Hct MCV MCH MCHC RDW Plt Count Sodium Potassium Chloride Carbon Dioxide Anion Gap BUN Creatinine Est GFR ( Amer) Est GFR (Non-Af Amer) POC Glucose (mg/dL) 128 H Random Glucose Calcium C-React Prot High Sens > 15.00 H Urine Color Urine Clarity Urine pH Ur Specific Orange Urine Protein Urine Glucose (UA) Urine Ketones Urine Blood Urine Nitrate Urine Bilirubin Urine Urobilinogen Ur Leukocyte Esterase Urine RBC (Auto) Urine Microscopic WBC ZOFIA Screen Negative 08/31/17 08/31/17 09/01/17 17:04 22:21 05:57 WBC RBC Hgb Hct MCV MCH MCHC RDW Plt Count Sodium Potassium Chloride Carbon Dioxide Anion Gap BUN Creatinine Est GFR ( Amer) Est GFR (Non-Af Amer) POC Glucose (mg/dL) 134 H 129 H Random Glucose Calcium C-React Prot High Sens Urine Color Yellow Urine Clarity Clear Urine pH 5.0 Ur Specific Orange 1.011 Urine Protein 30 Urine Glucose (UA) 150 Urine Ketones Negative Urine Blood Negative Urine Nitrate Negative Urine Bilirubin Negative Urine Urobilinogen 0.2-1.0 Ur Leukocyte Esterase Neg Urine RBC (Auto) < 1 Urine Microscopic WBC < 1 ZOFIA Screen 09/01/17 09/01/17 09/01/17 10:40 10:40 11:24 WBC 7.5 RBC 3.42 L Hgb 10.5 L Hct 32.9 L MCV 96.1 MCH 30.7 MCHC 31.9 L RDW 13.0 Plt Count 140 Sodium 140 Potassium 4.0 Chloride 104 Carbon Dioxide 27 Anion Gap 13 BUN 19 H Creatinine 1.2 Est GFR ( Amer) 52 Est GFR (Non-Af Amer) 43 POC Glucose (mg/dL) 210 H Random Glucose 196 H Calcium 8.1 L C-React Prot High Sens Urine Color Urine Clarity Urine pH Ur Specific Orange Urine Protein Urine Glucose (UA) Urine Ketones Urine Blood Urine Nitrate Urine Bilirubin Urine Urobilinogen Ur Leukocyte Esterase Urine RBC (Auto) Urine Microscopic WBC ZOFIA Screen 09/01/17 15:54 WBC RBC Hgb Hct MCV MCH MCHC RDW Plt Count Sodium Potassium Chloride Carbon Dioxide Anion Gap BUN Creatinine Est GFR ( Amer) Est GFR (Non-Af Amer) POC Glucose (mg/dL) 269 H Random Glucose Calcium C-React Prot High Sens Urine Color Urine Clarity Urine pH Ur Specific Orange Urine Protein Urine Glucose (UA) Urine Ketones Urine Blood Urine Nitrate Urine Bilirubin Urine Urobilinogen Ur Leukocyte Esterase Urine RBC (Auto) Urine Microscopic WBC ZOFIA Screen Assessment & Plan - Assessment and Plan (Free Text) Assessment: 77F w/multiple co-morbidities consulted for carotid stenosis Plan: Recommend follow up with doppler ultrasound in 6 mos to re-evaluate No surgical intervention at this time Thank you for this consult Please re-consult as needed MAGDIEL attending Kasia, PGY-1 - Date & Time Date: 09/01/17 Time: 16:37
[2017-09-01] MEDS: Nitroglycerin 2% Ointment Foilpak UD TOP SCH ×2 (17:54→22:19)
--- NOTE | 2017-09-02 00:13 | CP.PCM.PN ---
Subjective - Date & Time of Evaluation Date of Evaluation: 09/01/17 Time of Evaluation: 21:40 - Subjective Subjective: Left foot amputation. High Serum Glucose up to above 200 Vascular surgery consult is appreciated and is Ruling out any surgical intervention for the time being for Carotid artery Stenosis. She is receiving treatment for her Aspiration Pneumonia. IMPRESSION of CXR: Mild pulmonary venous congestion and bibasilar atelectasis. Objective - Vital Signs/Intake and Output Vital Signs (last 24 hours): Temp Pulse Resp BP Pulse Ox 97.8 F 63 19 178/71 H 99 09/01/17 18:38 09/01/17 22:19 09/01/17 18:38 09/01/17 22:19 09/01/17 18:38 - Medications Medications: Current Medications Acetaminophen (Tylenol 325mg Tab) 650 mg PO Q6 PRN PRN Reason: Fever >100.4 F Last Admin: 08/30/17 17:18 Dose: 650 mg Alprazolam (Xanax) 0.25 mg PO HS PRN PRN Reason: Insomnia Stop: 09/06/17 12:21 Aspirin (Ecotrin) 81 mg PO DAILY [facility] Last Admin: 09/01/17 08:53 Dose: 81 mg Atorvastatin Calcium (Lipitor) 40 mg PO HS [facility] Last Admin: 09/01/17 22:04 Dose: 40 mg Carvedilol (Coreg) 25 mg PO BID [facility] Docusate Sodium (Colace) 100 mg PO DAILY PRN PRN Reason: Constipation Enoxaparin Sodium (Lovenox) 30 mg SC DAILY [facility] PRN Reason: Protocol Last Admin: 09/01/17 08:55 Dose: 30 mg Furosemide (Lasix) 20 mg PO Q72H [facility] Last Admin: 08/31/17 18:48 Dose: 20 mg Gabapentin (Neurontin) 100 mg PO BID PRN PRN Reason: Nerve pain/neuropathy Levofloxacin/Dextrose (Levaquin 750mg) 750 mg in 150 mls @ 150 mls/hr IVPB DAILY [facility] Last Admin: 09/01/17 08:50 Dose: 150 mls/hr Clindamycin Phosphate (Cleocin In Normal Saline) 600 mg in 50 mls @ 50 mls/hr IVPB Q8 [facility] PRN Reason: Protocol Last Admin: 09/01/17 19:08 Dose: 50 mls/hr Insulin Human Regular (Humulin R) 0 units SC ACHS [facility] PRN Reason: Protocol Last Admin: 09/01/17 22:03 Dose: Not Given Insulin Lispro Protam/Lispro Human (Humalog Mix 75/25) 20 units SC DAILY [facility] Last Admin: 09/01/17 08:57 Dose: Not Given Lamotrigine (Lamictal) 25 mg PO BID [facility] Last Admin: 09/01/17 16:00 Dose: 25 mg Levothyroxine Sodium (Synthroid) 100 mcg PO DAILY [facility] Last Admin: 09/01/17 08:55 Dose: 100 mcg Loratadine (Claritin) 10 mg PO DAILY [facility] Last Admin: 09/01/17 08:51 Dose: 10 mg Nitroglycerin (Nitro-Bid 2% Oint) 1 ea TOP Q6 [facility] Last Admin: 09/01/17 22:19 Dose: 1 ea Ondansetron HCl (Zofran Inj) 4 mg IVP Q6 PRN PRN Reason: Nausea/Vomiting Last Admin: 08/30/17 12:55 Dose: 4 mg Phenazopyridine HCl (Pyridium) 200 mg PO BID PRN PRN Reason: Urinary discomt - Labs Labs: 09/01/17 10:40 09/01/17 10:40 PT 11.7 Seconds (9.8-13.1) 08/30/17 08:14 INR 1.1 (0.9-1.2) 08/30/17 08:14 APTT 32.0 Seconds (25.6-37.1) 08/30/17 08:14 Assessment and Plan (1) Syncope Status: Acute (2) CHF (congestive heart failure) Status: Acute (3) Chr obstructive pulmonary disease w/ acute lower respiratory infxn Status: Acute (4) Chronic chest pain Status: Acute (5) Chronic urinary tract infection Status: Acute (6) Seizure Status: Acute (7) CVA (cerebral vascular accident) Status: Acute
[2017-09-02] MEDS: Clindamycin 600mg/50ml NS 600 MG/50 ML BAG IVPB SCH ×3 (00:41→17:37)
[2017-09-02] MEDS: Nitroglycerin 2% Ointment Foilpak UD TOP SCH ×2 (04:30→09:55)
[2017-09-02] MEDS: Insulin Lispro Mix 75/25 100 units/ml (HumaLog) 10ml SC SCH (09:40)
[2017-09-02] MEDS: Insulin Regular 100 units/ml SC SCH ×5 (09:40→21:09)
[2017-09-02] MEDS: Levothyroxine 100 MCG TAB PO SCH (09:41)
[2017-09-02] MEDS: Enoxaparin 30 mg Syringe SC SCH (09:41)
[2017-09-02] MEDS: levoFLOXacin 750 mg in D5W 750 MG/150 ML BAG IVPB SCH (09:58)
--- NOTE | 2017-09-02 15:15 | CP.PCM.PN ---
Subjective - Date & Time of Evaluation Date of Evaluation: 09/02/17 Time of Evaluation: 10:20 - Subjective Subjective: F/U Syncope/ PNA. No A/D, c/o of thoracic, low back and knee pain. Objective - Vital Signs/Intake and Output Vital Signs (last 24 hours): Temp Pulse Resp BP Pulse Ox 97.8 F 66 18 94/59 L 100 09/02/17 12:32 09/02/17 12:32 09/02/17 12:32 09/02/17 12:32 09/02/17 12:32 - Medications Medications: Current Medications Acetaminophen (Tylenol 325mg Tab) 650 mg PO Q6 PRN PRN Reason: Fever >100.4 F Last Admin: 08/30/17 17:18 Dose: 650 mg Acetaminophen (Tylenol 325mg Tab) 650 mg PO Q6 PRN PRN Reason: Pain, Mild (1-3) Last Admin: 09/02/17 14:25 Dose: 650 mg Alprazolam (Xanax) 0.25 mg PO HS PRN PRN Reason: Insomnia Stop: 09/06/17 12:21 Aspirin (Ecotrin) 81 mg PO DAILY [facility] Last Admin: 09/02/17 09:39 Dose: 81 mg Atorvastatin Calcium (Lipitor) 40 mg PO HS [facility] Last Admin: 09/01/17 22:04 Dose: 40 mg Carvedilol (Coreg) 25 mg PO BID [facility] Last Admin: 09/02/17 09:38 Dose: Not Given Docusate Sodium (Colace) 100 mg PO DAILY PRN PRN Reason: Constipation Enoxaparin Sodium (Lovenox) 30 mg SC DAILY [facility] PRN Reason: Protocol Last Admin: 09/02/17 09:41 Dose: 30 mg Furosemide (Lasix) 20 mg PO Q72H [facility] Last Admin: 08/31/17 18:48 Dose: 20 mg Gabapentin (Neurontin) 100 mg PO BID PRN PRN Reason: Nerve pain/neuropathy Levofloxacin/Dextrose (Levaquin 750mg) 750 mg in 150 mls @ 150 mls/hr IVPB DAILY [facility] Last Admin: 09/02/17 09:58 Dose: 150 mls/hr Clindamycin Phosphate (Cleocin In Normal Saline) 600 mg in 50 mls @ 50 mls/hr IVPB Q8 [facility] PRN Reason: Protocol Last Admin: 09/02/17 13:01 Dose: 50 mls/hr Insulin Human Regular (Humulin R) 0 units SC ACHS [facility] PRN Reason: Protocol Last Admin: 09/02/17 11:30 Dose: 4 u Insulin Lispro Protam/Lispro Human (Humalog Mix 75/25) 20 units SC DAILY [facility] Last Admin: 09/02/17 09:40 Dose: 20 units Lamotrigine (Lamictal) 25 mg PO BID [facility] Last Admin: 09/02/17 09:41 Dose: 25 mg Levothyroxine Sodium (Synthroid) 100 mcg PO DAILY [facility] Last Admin: 09/02/17 09:41 Dose: 100 mcg Loratadine (Claritin) 10 mg PO DAILY [facility] Last Admin: 09/02/17 09:38 Dose: 10 mg Nitroglycerin (Nitro-Bid 2% Oint) 1 ea TOP Q6 [facility] Last Admin: 09/02/17 09:55 Dose: 1 ea Ondansetron HCl (Zofran Inj) 4 mg IVP Q6 PRN PRN Reason: Nausea/Vomiting Last Admin: 08/30/17 12:55 Dose: 4 mg Phenazopyridine HCl (Pyridium) 200 mg PO BID PRN PRN Reason: Urinary discomt - Labs Labs: 09/01/17 10:40 09/01/17 10:40 PT 11.7 Seconds (9.8-13.1) 08/30/17 08:14 INR 1.1 (0.9-1.2) 08/30/17 08:14 APTT 32.0 Seconds (25.6-37.1) 08/30/17 08:14 - Constitutional Appears: No Acute Distress, Chronically Ill - Head Exam Head Exam: NORMAL INSPECTION - Eye Exam Eye Exam: PERRL (R eye, L eye blind) - ENT Exam Additional comments: Hard of hearing on R. - Neck Exam Neck Exam: Normal Inspection - Respiratory Exam Respiratory Exam: Decreased Breath Sounds (at bases) - Cardiovascular Exam Cardiovascular Exam: REGULAR RHYTHM, Murmur - GI/Abdominal Exam GI & Abdominal Exam: Soft, Normal Bowel Sounds. absent: Guarding, Rebound - Extremities Exam Additional comments: L TMA, Tremors LUE. - Back Exam Back Exam: NORMAL INSPECTION - Neurological Exam Neurological Exam: Awake Additional comments: Forgetful, follows commands, generalized weakness., tremor L hand - Psychiatric Exam Psychiatric exam: Anxious - Skin Skin Exam: Warm Assessment and Plan (1) Aspiration pneumonia Status: Acute (2) Syncope Status: Acute (3) Chest pain Status: Acute (4) CHF (congestive heart failure) Status: Chronic (5) Headache Status: Acute (6) Type 2 diabetes mellitus with hyperglycemia Status: Chronic (7) COPD (chronic obstructive pulmonary disease) Status: Chronic (8) Hypothyroidism Status: Chronic (9) Anxiety Status: Chronic (10) Hx of CABG Status: Chronic (11) PVD (peripheral vascular disease) Status: Acute (12) Carotid stenosis Status: Acute - Assessment and Plan (Free Text) Plan: Pt had Stress Test (+) ischemia LAD , Cardiology will discuses with Pt's family about Cardiac Catheterization continue current Tx. , tremor L hand , f/ u Neurology consult.
[2017-09-02] MEDS ORDERED: Dextrose 5%/0.45% NS 1,000 ML IV SCH (23:45)
--- NOTE | 2017-09-02 23:57 | CP.PCM.PN ---
Subjective - Date & Time of Evaluation Date of Evaluation: 09/02/17 Time of Evaluation: 21:20 - Subjective Subjective: Patient had a stress test and may have a cardiac catheterization, pending family consent. No Syncopal spells. Objective - Vital Signs/Intake and Output Vital Signs (last 24 hours): Temp Pulse Resp BP Pulse Ox 98.4 F 68 18 176/75 H 100 09/02/17 19:20 09/02/17 19:20 09/02/17 19:20 09/02/17 19:20 09/02/17 19:20 - Medications Medications: Current Medications Acetaminophen (Tylenol 325mg Tab) 650 mg PO Q6 PRN PRN Reason: Fever >100.4 F Last Admin: 08/30/17 17:18 Dose: 650 mg Acetaminophen (Tylenol 325mg Tab) 650 mg PO Q6 PRN PRN Reason: Pain, Mild (1-3) Last Admin: 09/02/17 14:25 Dose: 650 mg Alprazolam (Xanax) 0.25 mg PO HS PRN PRN Reason: Insomnia Stop: 09/06/17 12:21 Aspirin (Ecotrin) 81 mg PO DAILY [facility] Last Admin: 09/02/17 09:39 Dose: 81 mg Atorvastatin Calcium (Lipitor) 40 mg PO HS [facility] Last Admin: 09/02/17 21:11 Dose: 40 mg Carvedilol (Coreg) 25 mg PO BID [facility] Last Admin: 09/02/17 17:39 Dose: 25 mg Docusate Sodium (Colace) 100 mg PO DAILY PRN PRN Reason: Constipation Enoxaparin Sodium (Lovenox) 30 mg SC DAILY [facility] PRN Reason: Protocol Last Admin: 09/02/17 09:41 Dose: 30 mg Furosemide (Lasix) 20 mg PO Q72H [facility] Last Admin: 08/31/17 18:48 Dose: 20 mg Gabapentin (Neurontin) 100 mg PO BID PRN PRN Reason: Nerve pain/neuropathy Levofloxacin/Dextrose (Levaquin 750mg) 750 mg in 150 mls @ 150 mls/hr IVPB DAILY [facility] Last Admin: 09/02/17 09:58 Dose: 150 mls/hr Clindamycin Phosphate (Cleocin In Normal Saline) 600 mg in 50 mls @ 50 mls/hr IVPB Q8 [facility] PRN Reason: Protocol Last Admin: 09/02/17 17:37 Dose: Not Given Insulin Human Regular (Humulin R) 0 units SC ACHS [facility] PRN Reason: Protocol Last Admin: 09/02/17 21:09 Dose: Not Given Insulin Lispro Protam/Lispro Human (Humalog Mix 75/25) 20 units SC DAILY [facility] Last Admin: 09/02/17 09:40 Dose: 20 units Lamotrigine (Lamictal) 25 mg PO BID [facility] Last Admin: 09/02/17 17:41 Dose: 25 mg Levothyroxine Sodium (Synthroid) 100 mcg PO DAILY [facility] Last Admin: 09/02/17 09:41 Dose: 100 mcg Loratadine (Claritin) 10 mg PO DAILY [facility] Last Admin: 09/02/17 09:38 Dose: 10 mg Ondansetron HCl (Zofran Inj) 4 mg IVP Q6 PRN PRN Reason: Nausea/Vomiting Last Admin: 08/30/17 12:55 Dose: 4 mg Phenazopyridine HCl (Pyridium) 200 mg PO BID PRN PRN Reason: Urinary discomt - Labs Labs: 09/01/17 10:40 09/01/17 10:40 PT 11.7 Seconds (9.8-13.1) 08/30/17 08:14 INR 1.1 (0.9-1.2) 08/30/17 08:14 APTT 32.0 Seconds (25.6-37.1) 08/30/17 08:14 Assessment and Plan (1) Syncope Status: Acute (2) CHF (congestive heart failure) Status: Acute (3) Chr obstructive pulmonary disease w/ acute lower respiratory infxn Status: Acute (4) Chronic chest pain Status: Acute (5) Chronic urinary tract infection Status: Acute (6) Seizure Status: Acute (7) CVA (cerebral vascular accident) Status: Acute
[2017-09-03] MEDS: Clindamycin 600mg/50ml NS 600 MG/50 ML BAG IVPB SCH ×2 (00:15→08:41)
--- NOTE | 2017-09-03 00:25 | CP.PCM.PN ---
Subjective - Date & Time of Evaluation Date of Evaluation: 09/02/17 Time of Evaluation: 18:00 - Subjective Subjective: s/p stress test with anterior wall / LAD territory ischemia feeling fine Objective - Vital Signs/Intake and Output Vital Signs (last 24 hours): Temp Pulse Resp BP Pulse Ox 98.4 F 68 18 176/75 H 100 09/02/17 19:20 09/02/17 19:20 09/02/17 19:20 09/02/17 19:20 09/02/17 19:20 - Medications Medications: Current Medications Acetaminophen (Tylenol 325mg Tab) 650 mg PO Q6 PRN PRN Reason: Fever >100.4 F Last Admin: 08/30/17 17:18 Dose: 650 mg Acetaminophen (Tylenol 325mg Tab) 650 mg PO Q6 PRN PRN Reason: Pain, Mild (1-3) Last Admin: 09/02/17 14:25 Dose: 650 mg Alprazolam (Xanax) 0.25 mg PO HS PRN PRN Reason: Insomnia Stop: 09/06/17 12:21 Aspirin (Ecotrin) 81 mg PO DAILY [facility] Last Admin: 09/02/17 09:39 Dose: 81 mg Atorvastatin Calcium (Lipitor) 40 mg PO HS [facility] Last Admin: 09/02/17 21:11 Dose: 40 mg Carvedilol (Coreg) 25 mg PO BID [facility] Last Admin: 09/02/17 17:39 Dose: 25 mg Docusate Sodium (Colace) 100 mg PO DAILY PRN PRN Reason: Constipation Enoxaparin Sodium (Lovenox) 30 mg SC DAILY [facility] PRN Reason: Protocol Last Admin: 09/02/17 09:41 Dose: 30 mg Furosemide (Lasix) 20 mg PO Q72H [facility] Last Admin: 08/31/17 18:48 Dose: 20 mg Gabapentin (Neurontin) 100 mg PO BID PRN PRN Reason: Nerve pain/neuropathy Levofloxacin/Dextrose (Levaquin 750mg) 750 mg in 150 mls @ 150 mls/hr IVPB DAILY [facility] Last Admin: 09/02/17 09:58 Dose: 150 mls/hr Clindamycin Phosphate (Cleocin In Normal Saline) 600 mg in 50 mls @ 50 mls/hr IVPB Q8 [facility] PRN Reason: Protocol Last Admin: 09/03/17 00:15 Dose: 50 mls/hr Dextrose/Sodium Chloride (Dextrose 5%/0.45% Ns 1000 Ml) 1,000 mls @ 60 mls/hr IV .[id number] [facility] Stop: 09/03/17 23:54 Last Admin: 09/03/17 00:15 Dose: 60 mls/hr Insulin Human Regular (Humulin R) 0 units SC ACHS [facility] PRN Reason: Protocol Last Admin: 09/02/17 21:09 Dose: Not Given Insulin Lispro Protam/Lispro Human (Humalog Mix 75/25) 20 units SC DAILY [facility] Last Admin: 09/02/17 09:40 Dose: 20 units Lamotrigine (Lamictal) 25 mg PO BID [facility] Last Admin: 09/02/17 17:41 Dose: 25 mg Levothyroxine Sodium (Synthroid) 100 mcg PO DAILY [facility] Last Admin: 09/02/17 09:41 Dose: 100 mcg Loratadine (Claritin) 10 mg PO DAILY [facility] Last Admin: 09/02/17 09:38 Dose: 10 mg Ondansetron HCl (Zofran Inj) 4 mg IVP Q6 PRN PRN Reason: Nausea/Vomiting Last Admin: 08/30/17 12:55 Dose: 4 mg Phenazopyridine HCl (Pyridium) 200 mg PO BID PRN PRN Reason: Urinary discomt - Labs Labs: 09/01/17 10:40 09/01/17 10:40 PT 11.7 Seconds (9.8-13.1) 08/30/17 08:14 INR 1.1 (0.9-1.2) 08/30/17 08:14 APTT 32.0 Seconds (25.6-37.1) 08/30/17 08:14 - Constitutional Appears: Well - Head Exam Head Exam: ATRAUMATIC, NORMAL INSPECTION, NORMOCEPHALIC - Eye Exam Eye Exam: EOMI, Normal appearance, PERRL Pupil Exam: NORMAL ACCOMODATION, PERRL - ENT Exam ENT Exam: Mucous Membranes Moist, Normal Exam - Neck Exam Neck Exam: Full ROM, Normal Inspection. absent: Lymphadenopathy - Respiratory Exam Respiratory Exam: Clear to Ausculation Bilateral, NORMAL BREATHING PATTERN - Cardiovascular Exam Cardiovascular Exam: REGULAR RHYTHM, +S1, +S2, Murmur - GI/Abdominal Exam GI & Abdominal Exam: Soft, Normal Bowel Sounds. absent: Tenderness - Extremities Exam Extremities Exam: Full ROM, Normal Capillary Refill, Normal Inspection. absent : Joint Swelling, Pedal Edema - Back Exam Back Exam: NORMAL INSPECTION - Neurological Exam Neurological Exam: Alert, Awake, CN II-XII Intact, Oriented x3 - Psychiatric Exam Psychiatric exam: Normal Affect, Normal Mood - Skin Skin Exam: Dry, Intact, Normal Color, Warm Assessment and Plan (1) Syncope Assessment & Plan: etiology ? cardiac in nature Status: Acute (2) Chest pain Assessment & Plan: +ve stress test Due to hx of dementia pt to be transferred [facility] for cardiac cath by ( her primary epic kaleidoscope analyst ) cath scheduled for 3 pm ( informed ) cont current meds for now Status: Chronic (3) CHF (congestive heart failure) Status: Acute (4) Dehydration Status: Acute (5) Dizziness Status: Acute (6) Hx of CABG Status: Chronic (7) Hypercholesterolemia Status: Chronic (8) Type 2 diabetes mellitus with hyperglycemia Status: Chronic
[2017-09-03 06:13] LABS: BASO % 0.5 % (0.0-2.0); EOS # 0.3 K/uL (0.0-0.7); EOS % 4.1 % (0.0-4.0); HEMATOCRIT 31.5 % (34.0-47.0); LYMPH # 1.7 K/uL (1.0-4.3); LYMPH % 25.9 % (20.0-40.0); MEAN CELL VOLUME 94.8 fl (81.0-99.0); MEAN CORPUSCULAR HEMOGLOBIN 31.2 pg (27.0-31.0); MEAN CORPUSCULAR HGB CONC 32.9 g/dL (33.0-37.0); MEAN PLATELET VOLUME 8.9 fl (7.2-11.7); MONO # 0.6 K/uL (0.0-0.8); MONO % 8.6 % (0.0-10.0); NEUT % 60.9 % (50.0-75.0); WHITE BLOOD COUNT 6.7 K/uL (4.8-10.8)
[2017-09-03] MEDS: Insulin Regular 100 units/ml SC SCH ×2 (06:36→12:05)
[2017-09-03 06:49] LABS: ALB/GLOB RATIO 0.9 (1.0-2.1); BILIRUBIN,TOTAL 0.3 mg/dl (0.2-1.3); CALCIUM 8.5 mg/dL (8.4-10.2); POTASSIUM 4.4 MMOL/L (3.6-5.0)
[2017-09-03] MEDS: levoFLOXacin 750 mg in D5W 750 MG/150 ML BAG IVPB SCH (08:42)
[2017-09-03] MEDS: Insulin Lispro Mix 75/25 100 units/ml (HumaLog) 10ml SC SCH (08:42)
[2017-09-03] MEDS: Levothyroxine 100 MCG TAB PO SCH (08:43)
[2017-09-03 13:34] VITALS: BP 190/67; PULSE 58; RESP 20; TEMP 97.3; O2SAT 100
--- NOTE | 2017-09-03 19:06 | CP.PCM.PN ---
Subjective - Date & Time of Evaluation Date of Evaluation: 09/03/17 - Subjective Subjective: F/U PNA/Syncope. Objective - Vital Signs/Intake and Output Vital Signs (last 24 hours): Temp Pulse Resp BP Pulse Ox 97.3 F L 58 L 20 190/67 H 100 09/03/17 13:34 09/03/17 13:34 09/03/17 13:34 09/03/17 13:34 09/03/17 13:34 - Medications Medications: Current Medications Acetaminophen (Tylenol 325mg Tab) 650 mg PO Q6 PRN PRN Reason: Fever >100.4 F Last Admin: 08/30/17 17:18 Dose: 650 mg Acetaminophen (Tylenol 325mg Tab) 650 mg PO Q6 PRN PRN Reason: Pain, Mild (1-3) Last Admin: 09/02/17 14:25 Dose: 650 mg Alprazolam (Xanax) 0.25 mg PO HS PRN PRN Reason: Insomnia Stop: 09/06/17 12:21 Aspirin (Ecotrin) 81 mg PO DAILY [facility] Last Admin: 09/03/17 08:43 Dose: 81 mg Atorvastatin Calcium (Lipitor) 40 mg PO HS [facility] Last Admin: 09/02/17 21:11 Dose: 40 mg Carvedilol (Coreg) 25 mg PO BID [facility] Last Admin: 09/03/17 08:45 Dose: Not Given Docusate Sodium (Colace) 100 mg PO DAILY PRN PRN Reason: Constipation Enoxaparin Sodium (Lovenox) 30 mg SC DAILY [facility] PRN Reason: Protocol Last Admin: 09/02/17 09:41 Dose: 30 mg Ergocalciferol (Drisdol 50,000 Intl Units Cap) 1 cap PO Q7D [facility] Furosemide (Lasix) 20 mg PO Q72H [facility] Last Admin: 08/31/17 18:48 Dose: 20 mg Gabapentin (Neurontin) 100 mg PO BID PRN PRN Reason: Nerve pain/neuropathy Levofloxacin/Dextrose (Levaquin 750mg) 750 mg in 150 mls @ 150 mls/hr IVPB DAILY [facility] Last Admin: 09/03/17 08:42 Dose: 150 mls/hr Clindamycin Phosphate (Cleocin In Normal Saline) 600 mg in 50 mls @ 50 mls/hr IVPB Q8 [facility] PRN Reason: Protocol Last Admin: 09/03/17 08:41 Dose: 50 mls/hr Dextrose/Sodium Chloride (Dextrose 5%/0.45% Ns 1000 Ml) 1,000 mls @ 60 mls/hr IV .[id number] [facility] Stop: 09/03/17 23:54 Last Admin: 09/03/17 00:15 Dose: 60 mls/hr Insulin Human Regular (Humulin R) 0 units SC ACHS [facility] PRN Reason: Protocol Last Admin: 09/03/17 12:05 Dose: 2 u Insulin Lispro Protam/Lispro Human (Humalog Mix 75/25) 20 units SC DAILY [facility] Last Admin: 09/03/17 08:42 Dose: Not Given Lamotrigine (Lamictal) 25 mg PO BID [facility] Last Admin: 09/03/17 08:45 Dose: 25 mg Levothyroxine Sodium (Synthroid) 100 mcg PO DAILY [facility] Last Admin: 09/03/17 08:43 Dose: 100 mcg Loratadine (Claritin) 10 mg PO DAILY [facility] Last Admin: 09/03/17 11:52 Dose: Not Given Ondansetron HCl (Zofran Inj) 4 mg IVP Q6 PRN PRN Reason: Nausea/Vomiting Last Admin: 08/30/17 12:55 Dose: 4 mg Phenazopyridine HCl (Pyridium) 200 mg PO BID PRN PRN Reason: Urinary discomt - Labs Labs: 09/03/17 05:40 09/03/17 05:40 PT 11.7 Seconds (9.8-13.1) 08/30/17 08:14 INR 1.1 (0.9-1.2) 08/30/17 08:14 APTT 32.0 Seconds (25.6-37.1) 08/30/17 08:14 - Constitutional Appears: No Acute Distress, Chronically Ill - Head Exam Head Exam: NORMAL INSPECTION - Eye Exam Eye Exam: PERRL (R eye, L eye blind.) - ENT Exam Additional comments: Hard of hearing on R - Neck Exam Neck Exam: Normal Inspection - Respiratory Exam Respiratory Exam: Decreased Breath Sounds (at bases) - Cardiovascular Exam Cardiovascular Exam: REGULAR RHYTHM, Murmur - GI/Abdominal Exam GI & Abdominal Exam: Soft, Normal Bowel Sounds - Extremities Exam Additional comments: L TMA, tremors LUE - Back Exam Back Exam: NORMAL INSPECTION - Neurological Exam Neurological Exam: Awake Additional comments: Forgetful, follows commands, generalized weakness, tremor L hand. - Psychiatric Exam Psychiatric exam: Anxious - Skin Skin Exam: Warm Assessment and Plan (1) Aspiration pneumonia Status: Acute (2) Syncope Status: Acute (3) Chest pain Status: Acute (4) CHF (congestive heart failure) Status: Chronic (5) Headache Status: Acute (6) Type 2 diabetes mellitus with hyperglycemia Status: Chronic (7) COPD (chronic obstructive pulmonary disease) Status: Chronic (8) Hypothyroidism Status: Chronic (9) Anxiety Status: Chronic (10) Hx of CABG Status: Chronic (11) PVD (peripheral vascular disease) Status: Acute (12) Carotid stenosis Status: Acute
--- NOTE | 2017-09-04 01:10 | CP.PCM.PN ---
Subjective - Date & Time of Evaluation Date of Evaluation: 09/03/17 Time of Evaluation: 09:00 - Subjective Subjective: Patient is transferred to [place] for a cardiac Catheterization. She will not come back and will stay there at [facility]. No seizures were seen. Objective - Vital Signs/Intake and Output Vital Signs (last 24 hours): Temp Pulse Resp BP Pulse Ox 97.3 F L 58 L 20 190/67 H 100 09/03/17 13:34 09/03/17 13:34 09/03/17 13:34 09/03/17 13:34 09/03/17 13:34 - Labs Labs: 09/03/17 05:40 09/03/17 05:40 PT 11.7 Seconds (9.8-13.1) 08/30/17 08:14 INR 1.1 (0.9-1.2) 08/30/17 08:14 APTT 32.0 Seconds (25.6-37.1) 08/30/17 08:14 Assessment and Plan (1) Syncope Status: Acute (2) CHF (congestive heart failure) Status: Acute (3) Chr obstructive pulmonary disease w/ acute lower respiratory infxn Status: Acute (4) Chronic chest pain Status: Acute (5) Chronic urinary tract infection Status: Acute (6) Seizure Status: Acute (7) CVA (cerebral vascular accident) Status: Acute
[2017-09-04] MEDS ORDERED: Ergocalciferol 50,000 Intl Units Cap PO SCH (09:45)
== END 2017-09-03 20:00 | disposition short-term general hospital (02) | DRG 540 ==
LOC: H.ER 06:41 → H.ERHOLD 10:14 → H.TEL 11:38
PROVIDERS: ADMIT Internal Medicine Pulmonary Disease; ATTEND Internal Medicine Pulmonary Disease
DX: J69.0 Pneumonitis due to inhalation of food and vomit (principal); I50.33 Acute on chronic diastolic (congestive) heart failure; E11.51 Type 2 diabetes mellitus with diabetic peripheral angiopathy without gangrene; E11.65 Type 2 diabetes mellitus with hyperglycemia; J44.0 Chronic obstructive pulmonary disease with (acute) lower respiratory infection; I11.0 Hypertensive heart disease with heart failure; N39.0 Urinary tract infection, site not specified; R09.02 Hypoxemia; J98.11 Atelectasis; F03.90 Unspecified dementia, unspecified severity, without behavioral disturbance, psychotic disturbance, mood disturbance, and anxiety; I65.21 Occlusion and stenosis of right carotid artery; Z88.5 Allergy status to narcotic agent; Z88.0 Allergy status to penicillin; Z91.018 Allergy to other foods; E03.9 Hypothyroidism, unspecified; I25.10 Atherosclerotic heart disease of native coronary artery without angina pectoris; Z95.1 Presence of aortocoronary bypass graft; Z95.5 Presence of coronary angioplasty implant and graft; E78.00 Pure hypercholesterolemia, unspecified; E78.5 Hyperlipidemia, unspecified; E86.0 Dehydration; F41.9 Anxiety disorder, unspecified; F32.9 Major depressive disorder, single episode, unspecified; J45.909 Unspecified asthma, uncomplicated; J32.0 Chronic maxillary sinusitis; M19.90 Unspecified osteoarthritis, unspecified site; J32.2 Chronic ethmoidal sinusitis; K29.70 Gastritis, unspecified, without bleeding; Z89.432 Acquired absence of left foot; R55 Syncope and collapse

== ENCOUNTER 2017-10-10 17:13 | Inpatient (IN) | payer MEDICAID ==
[2017-10-10 17:13] VITALS: BMI 32.2
[2017-10-10 17:36] LABS: BASO # 0.1 K/uL (0.0-0.2); BASO % 0.7 % (0.0-2.0); EOS # 0.4 K/uL (0.0-0.7); LYMPH # 1.3 K/uL (1.0-4.3); LYMPH % 10.6 % (20.0-40.0); MEAN CELL VOLUME 92.1 fl (81.0-99.0); MEAN CORPUSCULAR HEMOGLOBIN 30.2 pg (27.0-31.0); MEAN CORPUSCULAR HGB CONC 32.7 g/dL (33.0-37.0); MEAN PLATELET VOLUME 8.7 fl (7.2-11.7); MONO # 0.8 K/uL (0.0-0.8); MONO % 6.3 % (0.0-10.0); NEUT # 9.8 K/uL (1.8-7.0); NEUT % 79.4 % (50.0-75.0); NRBC % 0.1 % (0.0-0.0); RBC 3.99 Mil/uL (3.80-5.20); WHITE BLOOD COUNT 12.4 K/uL (4.8-10.8)
[2017-10-10 17:39] LABS: VENOUS BLOOD GAS BASE EXCESS 10.2 mmol/L (0.0-2.0); VENOUS BLOOD GAS PCO2 66 mmHg (40-60); VENOUS BLOOD GAS PO2 27 mm/Hg (30-55); VENOUS BLOOD PH 7.37 (7.32-7.43)
--- NOTE | 2017-10-10 17:44 | ED PDOC ---
HPI: Chest Pain Time Seen by Provider: 10/10/17 17:15 Chief Complaint (Nursing): Chest Pain Chief Complaint (Provider): Chest Pain History Per: Patient, Family (daughter) History/Exam Limitations: no limitations Onset/Duration Of Symptoms: Days Current Symptoms Are (Timing): Still Present Quality: "Pain" Modifying Factors: None Exacerbating Factors: None Additional Complaint(s): 77 year old female brought into the ED by her daughter for chest pain and shortness of breath which began last night. The daughter states that the patients symptoms persisted throughout today and so she brought him into the emergency department. Daughter further reports that the patient is more confused than usual and also notes some foul smelling urine. Denies cough, fever. PMD: Sridhar Barbosa Past Medical History Reviewed: Historical Data, Nursing Documentation, Vital Signs Vital Signs: Last Vital Signs Temp 97.9 F 10/10/17 17:17 Pulse 87 10/10/17 17:17 Resp 16 10/10/17 17:17 BP 186/93 H 10/10/17 17:17 Pulse Ox 98 10/10/17 17:55 - Medical History PMH: Anemia, Anxiety, Arthritis, Asthma, Back Problems, Bronchitis, CAD, CHF, COPD, Depression, Diabetes, Gastritis, HTN, Hypercholesterolemia, Hyperlipidemia , Hypothyroidism, Peripheral Edema, Pneumonia Denies: HIV, Chronic Kidney Disease, Rheumatoid Arthritis - Surgical History Surgical History: CABG (x4), Cholecystectomy, Coronary Stent Denies: Pacemaker - Family History Family History: States: Unknown Family Hx - Home Medications Home Medications: Ambulatory Orders Medication Instructions Recorded Aspirin [Ecotrin] 81 mg PO DAILY 01/12/17 Carvedilol [Coreg] 3.125 mg PO DAILY 01/12/17 Levothyroxine [Synthroid] 100 mcg PO DAILY 01/12/17 Ranolazine [Ranexa] 1,000 mg PO BID 01/12/17 Acetaminophen with Codeine 1 tab PO Q8H PRN 01/22/17 [Tylenol with Codeine #3 Tablet] Atorvastatin [Lipitor] 40 mg PO HS 02/01/17 Loratadine [Claritin] 10 mg PO DAILY 02/01/17 Furosemide [Lasix] 20 mg PO Q72H 03/17/17 ALPRAZolam [Xanax] 0.25 mg PO HS PRN tab 06/16/17 Calcium Carbonate/Vitamin D3 1 tab PO DAILY 08/30/17 [Calcium 600 + Vit D Tablet] Docusate [Colace] 100 mg PO DAILY PRN 08/30/17 Gabapentin [Neurontin] 100 mg PO BID PRN 08/30/17 Insulin Human NPH/Reg [HumuLIN 20 - 25 unit SC DAILY 08/30/17 70/30 (NPH/Reg)] Phenazopyridine [Pyridium] 200 mg PO BID PRN 08/30/17 - Allergies Allergies/Adverse Reactions: Allergies Allergy/AdvReac Type Severity Reaction Status Date / Time kiwi Allergy Mild RASH Verified 08/30/17 07:04 morphine Allergy Mild RASH Verified 08/30/17 07:04 Penicillins Allergy Mild RASH Verified 08/30/17 07:04 pineapple Allergy Mild RASH Verified 08/30/17 07:04 watermelon Allergy Mild RASH Verified 08/30/17 07:04 Review of Systems ROS Statement: Except As Marked, All Systems Reviewed And Found Negative Constitutional: Negative for: Fever Cardiovascular: Positive for: Chest Pain Respiratory: Positive for: Shortness of Breath. Negative for: Cough Physical Exam - Reviewed Nursing Documentation Reviewed: Yes Vital Signs Reviewed: Yes - Physical Exam Appears: Positive for: Non-toxic, No Acute Distress Head Exam: Positive for: ATRAUMATIC, NORMAL INSPECTION, NORMOCEPHALIC Skin: Positive for: Normal Color, Warm, Dry. Negative for: Rash Eye Exam: Positive for: Normal appearance, EOMI, PERRL ENT: Positive for: Normal ENT Inspection Cardiovascular/Chest: Positive for: Regular Rate, Rhythm, Chest Non Tender. Negative for: Tachycardia Respiratory: Positive for: Rhonchi (scattered). Negative for: Normal Breath Sounds, Wheezing, Respiratory Distress Gastrointestinal/Abdominal: Positive for: Normal Exam, Bowel Sounds, Soft. Negative for: Tenderness, Guarding Back: Positive for: Normal Inspection. 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 Negative for: Tenderness, Deformity, Swelling Lymphatic: Positive for: Normal Exam. Negative for: Adenopathy Neurologic/Psych: Positive for: Alert (A&O x2), Oriented, Gait. Negative for: Motor/Sensory Deficits - Laboratory Results Result Diagrams: 10/10/17 17:32 10/10/17 17:32 - ECG O2 Sat by Pulse Oximetry: 98 (RA) Pulse Ox Interpretation: Normal Medical Decision Making Medical Decision Makin Initial Impression 77 year old female presenting with chest pain Initial Plan: * VBG shock panel * EKG * CMP * Troponin * Udip * CBC * CXR * Blood Culture * Urine Culture * Urinalysis * Reevaluation Documented by Piper Manzo acting as a scribe for Deep De La Garza MD. All medical record entries made by the Scribe were at my direction and personally dictated by me. I have reviewed the chart and agree that the record accurately reflects my personal performance of the history, physical exam, medical decision making, and the department course for this patient. I have also personally directed, reviewed, and agree with the discharge instructions and disposition. Disposition - Clinical Impression Clinical Impression: Chest pain - Patient ED Disposition Is Patient to be Admitted: Yes - Disposition Disposition Time: 17:58 Condition: FAIR Forms: [facility] (Lao) - Pt Status Changed To: Hospital Disposition Of: Observation - POA Present On Arrival: None
[2017-10-10 17:46] LABS: ALB/GLOB RATIO 0.9 (1.0-2.1); ALBUMIN 3.5 g/dL (3.5-5.0); ALT/SGPT 32 U/L (9-52); AST/SGOT 26 U/L (14-36); BLOOD UREA NITROGEN 26 mg/dl (7-17); CALCIUM 9.5 mg/dL (8.4-10.2); GFR AFRICAN-AMERICAN 48; GFR NON-AFRICAN AMERICAN 40
[2017-10-10 18:30] LABS: URINE BACTERIA MANY (<OCC); URINE BILIRUBIN NEGATIVE (NEGATIVE); URINE BLOOD NEGATIVE (NEGATIVE); URINE CLARITY TURBID (Clear); URINE GLUCOSE (UA) 50 mg/dL (Normal); URINE LEUKOCYTE ESTERASE LARGE Leu/uL (Negative); URINE NITRATE POSITIVE (NEGATIVE); URINE PROTEIN 100 mg/dL (NEGATIVE); URINE UROBILINOGEN 0.2-1.0 mg/dL (0.2-1.0); WBC CLUMPS MANY /hpf
[2017-10-10 18:31] LABS: URINE COLOR YELLOW (YELLOW)
[2017-10-10] MEDS: Ciprofloxacin 400mg/200ml D5W 400 MG/200 ML BAG IVPB SCH (18:55)
[2017-10-10] MEDS ORDERED: Acetaminophen-Codeine 300/30 mg Tab PO PRN (21:32)
[2017-10-11 05:32] LABS: MEAN CELL VOLUME 92.4 fl (81.0-99.0); MEAN CORPUSCULAR HEMOGLOBIN 30.6 pg (27.0-31.0); MEAN CORPUSCULAR HGB CONC 33.2 g/dL (33.0-37.0); RBC 3.59 Mil/uL (3.80-5.20); RED CELL DISTRIBUTION WIDTH 13.8 % (11.5-14.5); WHITE BLOOD COUNT 10.8 K/uL (4.8-10.8)
[2017-10-11 05:54] LABS: ALB/GLOB RATIO 0.9 (1.0-2.1); ALT/SGPT 29 U/L (9-52); AST/SGOT 19 U/L (14-36); BLOOD UREA NITROGEN 26 mg/dl (7-17); CALCIUM 8.9 mg/dL (8.4-10.2); GFR AFRICAN-AMERICAN 48; GFR NON-AFRICAN AMERICAN 40; HDL CHOLESTEROL 36 MG/DL (30-70)
[2017-10-11 05:55] LABS: T4 8.85 ug/dl (5.5-11.0)
[2017-10-11 06:01] LABS: LDL CHOLESTEROL < 30 mg/dL (0-129)
[2017-10-11] MEDS: Insulin Lispro Mix 75/25 100 units/ml (HumaLog) 10ml SC SCH ×2 (08:41→16:59)
[2017-10-11] MEDS: Patient's Own Med (Ranolazine [Ranexa] 1,000 MG) PO SCH ×2 (08:42→17:00)
[2017-10-11] MEDS: Levothyroxine 100 MCG TAB PO SCH ×2 (08:43→09:00)
[2017-10-11] MEDS ORDERED: INSULIN ISOPHANE SC SCH (09:00)
[2017-10-11] MEDS ORDERED: INSULIN REGULAR SC SCH (09:00)
[2017-10-11] MEDS ORDERED: [UNRECOGNIZED DRUG - OTHER] SC SCH (09:00)
[2017-10-11] MEDS: Ciprofloxacin 400mg/200ml D5W 400 MG/200 ML BAG IVPB SCH ×2 (10:00→20:18)
--- NOTE | 2017-10-11 11:00 | RAD ---
HISTORY: cough COMPARISON: Portable chest 09/01/2017. FINDINGS: LUNGS: No acute infiltrate identified bilaterally. Bilateral lung bases are improved in overall aeration in the interval. Limited scarring or linear atelectasis again seen the left base. PLEURA: No significant pleural effusion identified, no pneumothorax apparent. CARDIOVASCULAR: Borderline cardiomegaly is identified without pulmonary vascular derangement. Sternotomy wires again seen. OSSEOUS STRUCTURES: No significant abnormalities. VISUALIZED UPPER ABDOMEN: Normal. OTHER FINDINGS: None. IMPRESSION: No interval acute cardiopulmonary disease appreciated.Stable prominent cardiac silhouette again noted. No pulmonary vascular derangement identified.
[2017-10-11] MEDS: Enoxaparin 30 mg Syringe SC SCH (12:35)
--- NOTE | 2017-10-11 15:53 | CP.PCM.CON ---
History of Present Illness - History of Present Illness History of Present Illness: I was requested by Dr. Oliver to evaluate Mrs. Pederson who is a 77 y/o female with past medical history of HTN, DM, CAD s/p CABG 18 years ago, PVD, CRI,CHF and mild dementia presented to ED for evaluation of chest pain and confusion. Information obtained by daughter who stated that she was concern because her mother was confused and was c/o chest pain. At this time patient is resting in NAD and still c/o mild chest pain which reproduce by palpation. Patient denies palpitations , PND ,dizziness or swelling of lower extremities. Patient admit occasional episodes of dyspnea. Review of Systems - Constitutional Constitutional: As Per HPI - EENT Eyes: Loss of Vision Ears: Abnormal Hearing - Cardiovascular Cardiovascular: Chest Pain, Dyspnea - Respiratory Respiratory: Cough, Dyspnea, Pain with Coughing - Gastrointestinal Gastrointestinal: Change in Bowel Habits, Constipation - Genitourinary Genitourinary: Urinary Frequency - Musculoskeletal Musculoskeletal: Arthralgias, Myalgias, Numbness - Neurological Neurological: Abnormal Hearing, Confusion, Loss of Vision - Psychiatric Psychiatric: Anxiety, Confusion Past Patient History - Infectious Disease Hx of Infectious Diseases: None - Tetanus Immunizations Tetanus Immunization: Unknown - Past Medical History & Family History Past Medical History?: Yes Past Family History: Reviewed and not pertinent - Past Social History Smoking Status: Never Smoked Alcohol: None Drugs: Denies - CARDIAC Hx Cardiac Disorders: Yes Hx Circulatory Problems: Yes Hx Congestive Heart Failure: Yes Hx Hypercholesterolemia: Yes Hx Hypertension: Yes - PULMONARY Hx Respiratory Disorders: Yes Hx Bronchitis: Yes Hx Chronic Obstructive Pulmonary Disease (COPD): Yes - NEUROLOGICAL Hx Neurological Disorder: Yes Hx Dementia: Yes Other/Comment: Dementia - HEENT Hx HEENT Problems: Yes 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., left eye blind - RENAL Hx Chronic Kidney Disease: Yes (mild renal insufficiecy.) - ENDOCRINE/METABOLIC Hx Diabetes Mellitus Type 2: Yes Hx Hypothyroidism: Yes - HEMATOLOGICAL/ONCOLOGICAL Hx AIDS: No Hx Anemia: Yes Hx Human Immunodeficiency Virus (HIV): No - INTEGUMENTARY Hx Dermatological Problems: No - MUSCULOSKELETAL/RHEUMATOLOGICAL Hx Arthritis: Yes Hx Falls: Yes Hx Rheumatoid Arthritis: No - GASTROINTESTINAL Hx Constipation: Yes Hx Gastritis: Yes - GENITOURINARY/GYNECOLOGICAL Hx Genitourinary Disorders: Yes Hx Incontinence: Yes Hx Urinary Tract Infection: Yes - PSYCHIATRIC Hx Anxiety: Yes Hx Depression: Yes Hx Substance Use: No - SURGICAL HISTORY Hx Surgeries: Yes Hx Amputation: Yes (Left toes) Hx Angiogram: Yes Hx Cardiac Catheterization: Yes Hx Cholecystectomy: Yes Hx Coronary Artery Bypass Graft: Yes (x4) Hx Coronary Stent: Yes Hx Eye Surgery: Yes - ANESTHESIA Hx Anesthesia: Yes Hx Anesthesia Reactions: No Hx Malignant Hyperthermia: No Has any member of the family had a problem w/ anesthesia?: No Meds Allergies/Adverse Reactions: Allergies Allergy/AdvReac Type Severity Reaction Status Date / Time kiwi Allergy Mild RASH Verified 10/10/17 18:29 morphine Allergy Mild RASH Verified 10/10/17 18:29 Penicillins Allergy Mild RASH Verified 10/10/17 18:29 pineapple Allergy Mild RASH Verified 10/10/17 18:29 watermelon Allergy Mild RASH Verified 10/10/17 18:29 - Medications Medications: Current Medications Acetaminophen/Codeine Phosphate (Tylenol/Codeine 300 Mg/30 Mg) 1 tab PO Q8H PRN PRN Reason: Pain, severe (8-10) Alprazolam (Xanax) 0.25 mg PO HS PRN PRN Reason: Insomnia Stop: 10/17/17 21:33 Aspirin (Ecotrin) 81 mg PO DAILY [facility] Last Admin: 10/11/17 08:41 Dose: 81 mg Atorvastatin Calcium (Lipitor) 40 mg PO HS [facility] Last Admin: 10/10/17 22:44 Dose: 40 mg Carvedilol (Coreg) 3.125 mg PO DAILY [facility] Last Admin: 10/11/17 08:41 Dose: 3.125 mg Docusate Sodium (Colace) 100 mg PO DAILY PRN PRN Reason: Constipation Enoxaparin Sodium (Lovenox) 30 mg SC DAILY [facility] PRN Reason: Protocol Last Admin: 10/11/17 12:35 Dose: 30 mg Furosemide (Lasix) 20 mg PO Q48H [facility] Last Admin: 10/10/17 22:47 Dose: 20 mg Gabapentin (Neurontin) 100 mg PO BID [facility] Last Admin: 10/11/17 08:42 Dose: 100 mg Home Med (Ranolazine [Ranexa]) 1,000 mg PO BID [facility] Last Admin: 10/11/17 08:42 Dose: 1,000 mg Ciprofloxacin (Cipro 400mg/200ml Dsw) 400 mg in 200 mls @ 200 mls/hr IVPB Q12 [facility] PRN Reason: Protocol Last Admin: 10/11/17 10:00 Dose: 200 mls/hr Insulin Lispro Protam/Lispro Human (Humalog Mix 75/25) 15 units SC BID [facility] Last Admin: 10/11/17 08:41 Dose: 15 units Levothyroxine Sodium (Synthroid) 100 mcg PO DAILY [facility] Last Admin: 10/11/17 09:00 Dose: Not Given Nitroglycerin (Nitrostat Sl Tab) 0.4 mg SL Q5M PRN PRN Reason: Chest Pain Physical Exam - Constitutional Appears: Non-toxic, No Acute Distress, Confused - Head Exam Head Exam: ATRAUMATIC, NORMOCEPHALIC (eye surgery) - Neck Exam Neck exam: Positive for: Full Rom, Normal Inspection - Respiratory Exam Respiratory Exam: Rales (none), Rhonchi (bilateral) - Cardiovascular Exam Cardiovascular Exam: REGULAR RHYTHM, Systolic Murmur (2/6 LSB) - GI/Abdominal Exam GI & Abdominal Exam: Normal Bowel Sounds, Soft - Rectal Exam Rectal Exam: Deferred - Extremities Exam Extremities exam: Positive for: pedal edema Additional comments: Amputation left toes. - Neurological Exam Neurological exam: Alert (but occasionally confused) - Psychiatric Exam Psychiatric exam: Anxious, Flat Affect - Skin Skin Exam: Normal Color Results - Vital Signs Recent Vital Signs: Last Vital Signs Temp 98.0 F 10/11/17 12:00 Pulse 60 10/11/17 12:00 Resp 18 10/11/17 12:00 BP 129/63 10/11/17 12:00 Pulse Ox 97 10/11/17 12:00 - Labs Result Diagrams: 10/11/17 04:20 10/11/17 04:20 Labs: Laboratory Results - last 24 hr 10/10/17 10/10/17 10/10/17 17:19 17:32 17:32 WBC 12.4 H D RBC 3.99 Hgb 12.0 Hct 36.7 MCV 92.1 D MCH 30.2 MCHC 32.7 L RDW 14.0 Plt Count 164 MPV 8.7 Neut % (Auto) 79.4 H Lymph % (Auto) 10.6 L [place] % (Auto) 6.3 Eos % (Auto) 3.0 Baso % (Auto) 0.7 Neut # 9.8 H Lymph # 1.3 [place] # 0.8 Eos # 0.4 Baso # 0.1 pO2 VBG pH VBG pCO2 VBG HCO3 VBG Total CO2 VBG O2 Sat (Calc) VBG Base Excess VBG Potassium Glucose Lactate FiO2 Sodium 135 Potassium 4.6 Chloride 97 L Carbon Dioxide 37 H Anion Gap 6 L BUN 26 H Creatinine 1.3 H Est GFR ( Amer) 48 Est GFR (Non-Af Amer) 40 POC Glucose (mg/dL) 167 H Random Glucose 194 H Calcium 9.5 Total Bilirubin 0.4 AST 26 ALT 32 Alkaline Phosphatase 104 Troponin I < 0.0120 Total Protein 7.3 Albumin 3.5 D Globulin 3.8 Albumin/Globulin Ratio 0.9 L Triglycerides Cholesterol LDL Cholesterol Direct HDL Cholesterol Thyroxine (T4) TSH 3rd Generation Venous Blood Potassium Urine Color Urine Clarity Urine pH Ur Specific [place] Urine Protein Urine Glucose (UA) Urine Ketones Urine Blood Urine Nitrate Urine Bilirubin Urine Urobilinogen Ur Leukocyte Esterase Urine WBC Clumps (Auto) Urine Microscopic WBC Urine Bacteria 10/10/17 10/10/17 10/10/17 17:33 18:21 21:29 WBC RBC Hgb Hct MCV MCH MCHC RDW Plt Count MPV Neut % (Auto) Lymph % (Auto) [place] % (Auto) Eos % (Auto) Baso % (Auto) Neut # Lymph # [place] # Eos # Baso # pO2 27 L VBG pH 7.37 VBG pCO2 66 H* VBG HCO3 31.5 VBG Total CO2 40.2 H VBG O2 Sat (Calc) 57.8 VBG Base Excess 10.2 H VBG Potassium 4.7 Glucose 191 H Lactate 1.2 FiO2 28.0 Sodium 138.0 Potassium Chloride 101.0 Carbon Dioxide Anion Gap BUN Creatinine Est GFR ( Amer) Est GFR (Non-Af Amer) POC Glucose (mg/dL) 145 H Random Glucose Calcium Total Bilirubin AST ALT Alkaline Phosphatase Troponin I Total Protein Albumin Globulin Albumin/Globulin Ratio Triglycerides Cholesterol LDL Cholesterol Direct HDL Cholesterol Thyroxine (T4) TSH 3rd Generation Venous Blood Potassium 4.7 Urine Color Yellow Urine Clarity Turbid Urine pH 5.0 Ur Specific [place] 1.014 Urine Protein 100 Urine Glucose (UA) 50 Urine Ketones Negative Urine Blood Negative Urine Nitrate Positive H Urine Bilirubin Negative Urine Urobilinogen 0.2-1.0 Ur Leukocyte Esterase Large Urine WBC Clumps (Auto) Many H Urine Microscopic WBC 1764 H Urine Bacteria Many H 10/11/17 10/11/17 10/11/17 01:27 04:20 04:20 WBC 10.8 RBC 3.59 L Hgb 11.0 L Hct 33.2 L MCV 92.4 MCH 30.6 MCHC 33.2 RDW 13.8 Plt Count 145 MPV Neut % (Auto) Lymph % (Auto) [place] % (Auto) Eos % (Auto) Baso % (Auto) Neut # Lymph # [place] # Eos # Baso # pO2 VBG pH VBG pCO2 VBG HCO3 VBG Total CO2 VBG O2 Sat (Calc) VBG Base Excess VBG Potassium Glucose Lactate FiO2 Sodium 138 Potassium 4.8 Chloride 100 Carbon Dioxide 32 H Anion Gap 11 BUN 26 H Creatinine 1.3 H Est GFR ( Amer) 48 Est GFR (Non-Af Amer) 40 POC Glucose (mg/dL) Random Glucose 158 H Calcium 8.9 Total Bilirubin 0.4 AST 19 ALT 29 Alkaline Phosphatase 80 Troponin I < 0.0120 Total Protein 6.5 Albumin 3.0 L Globulin 3.5 Albumin/Globulin Ratio 0.9 L Triglycerides 103 D Cholesterol 99 LDL Cholesterol Direct < 30 HDL Cholesterol 36 Thyroxine (T4) 8.85 TSH 3rd Generation 4.59 Venous Blood Potassium Urine Color Urine Clarity Urine pH Ur Specific [place] Urine Protein Urine Glucose (UA) Urine Ketones Urine Blood Urine Nitrate Urine Bilirubin Urine Urobilinogen Ur Leukocyte Esterase Urine WBC Clumps (Auto) Urine Microscopic WBC Urine Bacteria 10/11/17 10/11/17 05:28 09:32 WBC RBC Hgb Hct MCV MCH MCHC RDW Plt Count MPV Neut % (Auto) Lymph % (Auto) [place] % (Auto) Eos % (Auto) Baso % (Auto) Neut # Lymph # [place] # Eos # Baso # pO2 VBG pH VBG pCO2 VBG HCO3 VBG Total CO2 VBG O2 Sat (Calc) VBG Base Excess VBG Potassium Glucose Lactate FiO2 Sodium Potassium Chloride Carbon Dioxide Anion Gap BUN Creatinine Est GFR ( Amer) Est GFR (Non-Af Amer) POC Glucose (mg/dL) 163 H Random Glucose Calcium Total Bilirubin AST ALT Alkaline Phosphatase Troponin I < 0.0120 Total Protein Albumin Globulin Albumin/Globulin Ratio Triglycerides Cholesterol LDL Cholesterol Direct HDL Cholesterol Thyroxine (T4) TSH 3rd Generation Venous Blood Potassium Urine Color Urine Clarity Urine pH Ur Specific [place] Urine Protein Urine Glucose (UA) Urine Ketones Urine Blood Urine Nitrate Urine Bilirubin Urine Urobilinogen Ur Leukocyte Esterase Urine WBC Clumps (Auto) Urine Microscopic WBC Urine Bacteria - EKG Data EKG Interpreted by: Other (SR NSST changes) - Imaging and Cardiology Chest x-ray Status: Report reviewed by me (NATHAN) Assessment & Plan - Assessment and Plan (Free Text) Assessment: 1 Atypical chest pain 2 CAD s/p CABG 3 HTN 4 Dementia 5 DM 6 PVD 7 CRI PLAN: 1 I will review old chart 2 Adjust cardiac medicines. 3 Analgesic/ anti-inflammatory for possible costocondrities 4 Stable Cardiac rodgers ,I will discuss with Dr. Oliver. - Date & Time Date: 10/11/17 Time: 16:08
--- NOTE | 2017-10-11 16:54 | CARD ---
APPROVED REPORT EKG Measurement Heart [id number] <Conclusion> Normal sinus rhythm Normal ECG
--- NOTE | 2017-10-11 17:55 | CP.PCM.HP ---
History of Present Illness - History of Present Illness History of Present Illness: CC: CP 77 y/o F, Hx of HTN, CABG, COPD, brought to ER [facility], [place] accompany by daughter to be evaluated for L Chest pain sustained since a week [employer], Pt taking ASA at home with no relief. As per daugther, Pt c/o of L chest pain on DOA of moderate severity 5:10, non radiated, associated to mild SOB, occasional dry cough and confusion. Aggravated symptoms: As per Daughter, Pt with foul smelling urine, generalized weakness. Aggravated facto: Pt poor historian. Denied: Fever, chills, n/v/d, abdominal pain, syncope, dizziness, LOC, numbness , sick contact, recent travel out of [facility]. CXR shows no acute infiltrates. EKG: Normal sinus rythm. Present on Admission - Present on Admission Any Indicators Present on Admission: No Review of Systems - Constitutional Constitutional: Weakness (generalized) - EENT Eyes: Loss of Vision (L eye blind) Ears: Decreased Hearing (Right) Nose/Mouth/Throat: Other (negative) - Cardiovascular Cardiovascular: Chest Pain, Dyspnea - Respiratory Respiratory: Cough, Dyspnea - Gastrointestinal Gastrointestinal: Constipation - Genitourinary Genitourinary: Urinary Incontinence, Urinary Frequency - Musculoskeletal Musculoskeletal: Arthralgias - Integumentary Integumentary: Other - Neurological Neurological: Confusion, Memory Loss (mild) - Psychiatric Psychiatric: Anxiety - Endocrine Endocrine: Other (negative) - Hematologic/Lymphatic Hematologic: Other (negative) Past Patient History - Infectious Disease Hx of Infectious Diseases: None - Tetanus Immunizations Tetanus Immunization: Unknown - Past Medical History & Family History Past Medical History?: Yes Past Family History: Reviewed and not pertinent - Past Social History Smoking Status: Never Smoked Alcohol: None Drugs: Denies Home Situation {Lives}: With Family - CARDIAC Hx Cardiac Disorders: Yes Hx Circulatory Problems: Yes Hx Congestive Heart Failure: Yes Hx Hypercholesterolemia: Yes Hx Hypertension: Yes - PULMONARY Hx Respiratory Disorders: Yes Hx Bronchitis: Yes Hx Chronic Obstructive Pulmonary Disease (COPD): Yes - NEUROLOGICAL Hx Neurological Disorder: Yes Hx Dementia: Yes Other/Comment: Dementia - HEENT Hx HEENT Problems: Yes 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., left eye blind - RENAL Hx Chronic Kidney Disease: Yes (mild renal insufficiecy.) - ENDOCRINE/METABOLIC Hx Diabetes Mellitus Type 2: Yes Hx Hypothyroidism: Yes - HEMATOLOGICAL/ONCOLOGICAL Hx AIDS: No Hx Anemia: Yes Hx Human Immunodeficiency Virus (HIV): No - INTEGUMENTARY Hx Dermatological Problems: No - MUSCULOSKELETAL/RHEUMATOLOGICAL Hx Arthritis: Yes Hx Falls: Yes Hx Rheumatoid Arthritis: No - GASTROINTESTINAL Hx Constipation: Yes Hx Gastritis: Yes - GENITOURINARY/GYNECOLOGICAL Hx Genitourinary Disorders: Yes Hx Incontinence: Yes Hx Urinary Tract Infection: Yes - PSYCHIATRIC Hx Anxiety: Yes Hx Depression: Yes Hx Substance Use: No - SURGICAL HISTORY Hx Surgeries: Yes Hx Amputation: Yes (Left toes) Hx Angiogram: Yes Hx Cardiac Catheterization: Yes Hx Cholecystectomy: Yes Hx Coronary Artery Bypass Graft: Yes (x4) Hx Coronary Stent: Yes Hx Eye Surgery: Yes - ANESTHESIA Hx Anesthesia: Yes Hx Anesthesia Reactions: No Hx Malignant Hyperthermia: No Has any member of the family had a problem w/ anesthesia?: No Meds Allergies/Adverse Reactions: Allergies Allergy/AdvReac Type Severity Reaction Status Date / Time kiwi Allergy Mild RASH Verified 10/10/17 18:29 morphine Allergy Mild RASH Verified 10/10/17 18:29 Penicillins Allergy Mild RASH Verified 10/10/17 18:29 pineapple Allergy Mild RASH Verified 10/10/17 18:29 watermelon Allergy Mild RASH Verified 10/10/17 18:29 Physical Exam - Constitutional Appears: Chronically Ill - Head Exam Head Exam: NORMAL INSPECTION - Eye Exam Eye Exam: PERRL (R eye, L eye blind) - ENT Exam Additional comments: Hard of hearing R - Neck Exam Neck exam: Positive for: Normal Inspection - Respiratory Exam Respiratory Exam: Decreased Breath Sounds (at bases), Rhonchi (b/l) - Cardiovascular Exam Cardiovascular Exam: REGULAR RHYTHM, Systolic Murmur (2/6 LSB) - GI/Abdominal Exam GI & Abdominal Exam: Normal Bowel Sounds, Soft - Extremities Exam Additional comments: L TMA - Back Exam Back exam: tenderness - Neurological Exam Neurological exam: Alert (x2) Additional comments: Confused, follows commands, generalized weakness - Psychiatric Exam Psychiatric exam: Anxious - Skin Skin Exam: Warm Results - Vital Signs Recent Vital Signs: Last Vital Signs Temp 97.9 F 10/11/17 15:51 Pulse 80 10/11/17 15:51 Resp 18 10/11/17 15:51 BP 115/61 10/11/17 15:51 Pulse Ox 98 10/11/17 15:51 reviewed Cheryl - Labs Result Diagrams: 10/11/17 04:20 10/11/17 04:20 Labs: Laboratory Results - last 24 hr 10/10/17 10/10/17 10/10/17 17:32 18:21 21:29 WBC RBC Hgb Hct MCV MCH MCHC RDW Plt Count Sodium Potassium Chloride Carbon Dioxide Anion Gap BUN Creatinine Est GFR ( Amer) Est GFR (Non-Af Amer) POC Glucose (mg/dL) 145 H Random Glucose Calcium Total Bilirubin AST ALT Alkaline Phosphatase Troponin I < 0.0120 Total Protein Albumin Globulin Albumin/Globulin Ratio Triglycerides Cholesterol LDL Cholesterol Direct HDL Cholesterol Thyroxine (T4) TSH 3rd Generation Urine Color Yellow Urine Clarity Turbid Urine pH 5.0 Ur Specific [place] 1.014 Urine Protein 100 Urine Glucose (UA) 50 Urine Ketones Negative Urine Blood Negative Urine Nitrate Positive H Urine Bilirubin Negative Urine Urobilinogen 0.2-1.0 Ur Leukocyte Esterase Large Urine WBC Clumps (Auto) Many H Urine Microscopic WBC 1764 H Urine Bacteria Many H 10/11/17 10/11/17 10/11/17 01:27 04:20 04:20 WBC 10.8 RBC 3.59 L Hgb 11.0 L Hct 33.2 L MCV 92.4 MCH 30.6 MCHC 33.2 RDW 13.8 Plt Count 145 Sodium 138 Potassium 4.8 Chloride 100 Carbon Dioxide 32 H Anion Gap 11 BUN 26 H Creatinine 1.3 H Est GFR ( Amer) 48 Est GFR (Non-Af Amer) 40 POC Glucose (mg/dL) Random Glucose 158 H Calcium 8.9 Total Bilirubin 0.4 AST 19 ALT 29 Alkaline Phosphatase 80 Troponin I < 0.0120 Total Protein 6.5 Albumin 3.0 L Globulin 3.5 Albumin/Globulin Ratio 0.9 L Triglycerides 103 D Cholesterol 99 LDL Cholesterol Direct < 30 HDL Cholesterol 36 Thyroxine (T4) 8.85 TSH 3rd Generation 4.59 Urine Color Urine Clarity Urine pH Ur Specific [place] Urine Protein Urine Glucose (UA) Urine Ketones Urine Blood Urine Nitrate Urine Bilirubin Urine Urobilinogen Ur Leukocyte Esterase Urine WBC Clumps (Auto) Urine Microscopic WBC Urine Bacteria 10/11/17 10/11/17 10/11/17 05:28 09:32 11:24 WBC RBC Hgb Hct MCV MCH MCHC RDW Plt Count Sodium Potassium Chloride Carbon Dioxide Anion Gap BUN Creatinine Est GFR ( Amer) Est GFR (Non-Af Amer) POC Glucose (mg/dL) 163 H 108 Random Glucose Calcium Total Bilirubin AST ALT Alkaline Phosphatase Troponin I < 0.0120 Total Protein Albumin Globulin Albumin/Globulin Ratio Triglycerides Cholesterol LDL Cholesterol Direct HDL Cholesterol Thyroxine (T4) TSH 3rd Generation Urine Color Urine Clarity Urine pH Ur Specific [place] Urine Protein Urine Glucose (UA) Urine Ketones Urine Blood Urine Nitrate Urine Bilirubin Urine Urobilinogen Ur Leukocyte Esterase Urine WBC Clumps (Auto) Urine Microscopic WBC Urine Bacteria 10/11/17 10/11/17 14:54 16:30 WBC RBC Hgb Hct MCV MCH MCHC RDW Plt Count Sodium Potassium Chloride Carbon Dioxide Anion Gap BUN Creatinine Est GFR ( Amer) Est GFR (Non-Af Amer) POC Glucose (mg/dL) 151 H 170 H Random Glucose Calcium Total Bilirubin AST ALT Alkaline Phosphatase Troponin I Total Protein Albumin Globulin Albumin/Globulin Ratio Triglycerides Cholesterol LDL Cholesterol Direct HDL Cholesterol Thyroxine (T4) TSH 3rd Generation Urine Color Urine Clarity Urine pH Ur Specific [place] Urine Protein Urine Glucose (UA) Urine Ketones Urine Blood Urine Nitrate Urine Bilirubin Urine Urobilinogen Ur Leukocyte Esterase Urine WBC Clumps (Auto) Urine Microscopic WBC Urine Bacteria reviewed J.P. - EKG Data EKG comments: reviewed J.P. - Imaging and Cardiology Chest x-ray Status: Report reviewed by me ([email or web address]) Assessment & Plan (1) Chest pain, atypical Status: Acute Priority: High (2) UTI (urinary tract infection) Status: Acute Priority: High (3) COPD (chronic obstructive pulmonary disease) Status: Chronic Priority: Medium (4) Diabetes mellitus Status: Chronic Priority: High (5) CHF (congestive heart failure) Status: Chronic Priority: Medium (6) Hx of CABG Status: Chronic Priority: Medium (7) Hypercholesterolemia Status: Chronic Priority: Low (8) Hypothyroidism Status: Chronic Priority: Medium (9) Osteoarthritis Status: Chronic Priority: Medium - Assessment and Plan (Free Text) Plan: U C-S: Gram negative jered. Pt was seen by information security consultant with Imp. Atypical CP, Continue Cipro, Lovenox, Coreg, Ecotrin, Nitroglycerin, Lipitor, Humalog Mix,Tylenol with Co and rest of Tx. PT, OT, Cardiology consult appreciated. - Date & Time Date: 10/11/17 Time: 11:20
[2017-10-12 05:16] LABS: HEMOGLOBIN 10.6 g/dL (12.0-16.0); MEAN CELL VOLUME 92.8 fl (81.0-99.0); MEAN CORPUSCULAR HEMOGLOBIN 30.3 pg (27.0-31.0); MEAN CORPUSCULAR HGB CONC 32.6 g/dL (33.0-37.0); RBC 3.49 Mil/uL (3.80-5.20); RED CELL DISTRIBUTION WIDTH 14.2 % (11.5-14.5); WHITE BLOOD COUNT 7.6 K/uL (4.8-10.8)
[2017-10-12 05:34] LABS: CALCIUM 8.8 mg/dL (8.4-10.2)
[2017-10-12] MEDS: Ciprofloxacin 400mg/200ml D5W 400 MG/200 ML BAG IVPB SCH (08:43)
[2017-10-12] MEDS: Levothyroxine 100 MCG TAB PO SCH (08:44)
[2017-10-12] MEDS: Patient's Own Med (Ranolazine [Ranexa] 1,000 MG) PO SCH ×2 (08:46→16:11)
[2017-10-12] MEDS: Enoxaparin 30 mg Syringe SC SCH (08:46)
[2017-10-12] MEDS: Insulin Lispro Mix 75/25 100 units/ml (HumaLog) 10ml SC SCH ×2 (08:51→16:16)
--- NOTE | 2017-10-12 16:00 | CP.PCM.PN ---
Subjective - Date & Time of Evaluation Date of Evaluation: 10/12/17 Time of Evaluation: 12:30 - Subjective Subjective: F/U UTI Pt awake, no A/D, mild suprapubic discomfort, pain R-L knee, L-S Objective - Vital Signs/Intake and Output Vital Signs (last 24 hours): Temp Pulse Resp BP Pulse Ox 98.4 F 57 L 18 122/69 100 10/12/17 11:59 10/12/17 11:59 10/12/17 11:59 10/12/17 11:59 10/12/17 11:59 - Medications Medications: Current Medications Acetaminophen/Codeine Phosphate (Tylenol/Codeine 300 Mg/30 Mg) 1 tab PO Q8H PRN PRN Reason: Pain, severe (8-10) Alprazolam (Xanax) 0.25 mg PO HS PRN PRN Reason: Insomnia Stop: 10/17/17 21:33 Last Admin: 10/11/17 21:32 Dose: 0.25 mg Aspirin (Ecotrin) 81 mg PO DAILY [facility] Last Admin: 10/12/17 08:45 Dose: 81 mg Atorvastatin Calcium (Lipitor) 40 mg PO HS [facility] Last Admin: 10/11/17 21:31 Dose: 40 mg Carvedilol (Coreg) 3.125 mg PO DAILY [facility] Last Admin: 10/12/17 08:45 Dose: 3.125 mg Docusate Sodium (Colace) 100 mg PO DAILY PRN PRN Reason: Constipation Enoxaparin Sodium (Lovenox) 30 mg SC DAILY [facility] PRN Reason: Protocol Last Admin: 10/12/17 08:46 Dose: 30 mg Furosemide (Lasix) 20 mg PO Q48H [facility] Last Admin: 10/10/17 22:47 Dose: 20 mg Gabapentin (Neurontin) 100 mg PO BID [facility] Last Admin: 10/12/17 08:44 Dose: 100 mg Home Med (Ranolazine [Ranexa]) 1,000 mg PO BID [facility] Last Admin: 10/12/17 08:46 Dose: 1,000 mg Ciprofloxacin (Cipro 400mg/200ml Dsw) 400 mg in 200 mls @ 200 mls/hr IVPB Q12 [facility] PRN Reason: Protocol Last Admin: 10/12/17 08:43 Dose: 200 mls/hr Insulin Lispro Protam/Lispro Human (Humalog Mix 75/25) 15 units SC BID [facility] Last Admin: 10/12/17 08:51 Dose: 15 units Levothyroxine Sodium (Synthroid) 100 mcg PO DAILY [facility] Last Admin: 10/12/17 08:44 Dose: 100 mcg Nitroglycerin (Nitrostat Sl Tab) 0.4 mg SL Q5M PRN PRN Reason: Chest Pain - Labs Labs: 10/12/17 04:30 10/12/17 04:30 - Constitutional Appears: No Acute Distress, Chronically Ill - Head Exam Head Exam: NORMAL INSPECTION - Eye Exam Eye Exam: PERRL (R eye, L eye blind) - ENT Exam Additional comments: Hard of hearing R - Neck Exam Neck Exam: Normal Inspection - Respiratory Exam Respiratory Exam: Decreased Breath Sounds (at bases), Rhonchi (b/l) - Cardiovascular Exam Cardiovascular Exam: REGULAR RHYTHM, Murmur (systolic) - GI/Abdominal Exam GI & Abdominal Exam: Soft, Normal Bowel Sounds. absent: Guarding, Rebound - Extremities Exam Additional comments: L TMA - Back Exam Back Exam: tenderness - Neurological Exam Neurological Exam: Awake Additional comments: Forgetful, follows commands, generalized weakness. - Psychiatric Exam Psychiatric exam: Anxious - Skin Skin Exam: Warm Assessment and Plan (1) Chest pain, atypical Status: Acute (2) UTI (urinary tract infection) Assessment & Plan: Klebsiella. Status: Acute (3) COPD (chronic obstructive pulmonary disease) Status: Chronic (4) Diabetes mellitus Status: Chronic (5) CHF (congestive heart failure) Status: Chronic (6) Hx of CABG Status: Chronic (7) Hypercholesterolemia Status: Chronic (8) Hypothyroidism Status: Chronic (9) Osteoarthritis Status: Chronic - Assessment and Plan (Free Text) Plan: U C-S final: Klebsiella Pneumoniae. Continue Cipro, rest of Tx, ID consult.
[2017-10-13 05:30] LABS: HEMOGLOBIN 10.5 g/dL (12.0-16.0); MEAN CELL VOLUME 91.9 fl (81.0-99.0); MEAN CORPUSCULAR HEMOGLOBIN 30.3 pg (27.0-31.0); RBC 3.47 Mil/uL (3.80-5.20); RED CELL DISTRIBUTION WIDTH 13.7 % (11.5-14.5); WHITE BLOOD COUNT 8.9 K/uL (4.8-10.8)
[2017-10-13 06:22] LABS: CALCIUM 8.9 mg/dL (8.4-10.2)
[2017-10-13] MEDS: Enoxaparin 30 mg Syringe SC SCH (09:54)
[2017-10-13] MEDS: Patient's Own Med (Ranolazine [Ranexa] 1,000 MG) PO SCH ×2 (09:54→17:30)
[2017-10-13] MEDS: Levothyroxine 100 MCG TAB PO SCH (09:56)
[2017-10-13] MEDS: Insulin Lispro Mix 75/25 100 units/ml (HumaLog) 10ml SC SCH ×2 (10:00→17:30)
--- NOTE | 2017-10-13 10:12 | PQF GENQUE ---
This form is a permanent part of the medical record 10/13/17 Dr. Oliver, Please clarify the Type and Acuity of Heart Failure if known. Admitted with chest pain and UTI. History of CHF. Medication includes: Coreg, Lasix. Clarification of your documentation is requested to better reflect the severity of illness and intensity of treatment of your patient. Indicators present [] Specify: [] [] Specify: [] [] Specify: [] [] Specify: [] Location in the medical record that reflects the above clinical findings: [] Treatment Provided: [] PHYSICIAN'S RESPONSE Based on your medical judgment of the clinical indicators outlined above please clarify the following: [] Practitioner response [] If unable to determine, please check the box, sign and date. Present On Admission (POA) Indicator: [] Present at the time of admission [] Not present at the time of admission [] Clinically Undetermined In responding to this query, please exercise your independent professional judgment. The fact that a question is asked does not imply that any particular answer is desired or expected. Thank you for your clarification on this documentation. If you have any questions please call:ext [phone] * Thank you, Vilma Sanon RN CDMP [facility]
--- NOTE | 2017-10-13 10:17 | PQF GENQUE ---
This form is a permanent part of the medical record 10/13/17 Dr. Oliver, Would you please clarify if there is an associated diagnosis or not to go along with the following lab findings. Admitted with chest pain and UTI. BUN 26--> 41, Creatinine 1.3--> 2.0, GFR 40-- > 24. Clarification of your documentation is requested to better reflect the severity of illness and intensity of treatment of your patient. Indicators present [] Specify: [] [] Specify: [] [] Specify: [] [] Specify: [] Location in the medical record that reflects the above clinical findings: [] Treatment Provided: [] PHYSICIAN'S RESPONSE Based on your medical judgment of the clinical indicators outlined above please clarify the following: [] Practitioner response [] If unable to determine, please check the box, sign and date. Present On Admission (POA) Indicator: [] Present at the time of admission [] Not present at the time of admission [] Clinically Undetermined In responding to this query, please exercise your independent professional judgment. The fact that a question is asked does not imply that any particular answer is desired or expected. Thank you for your clarification on this documentation. If you have any questions please call:ext [phone] * Thank you, Vilma Sanon RN CDMP [facility]
--- NOTE | 2017-10-13 11:34 | CP.PCM.CON ---
History of Present Illness - History of Present Illness History of Present Illness: Infectious Disease Consultation Note- asked to see this patient at the request of for ESBL UTI. HPI- History obtained mostly from the medical chart, Kristy and patient's son and daughter. Patient is a 77 year old female with pmh of COPD, CABG, HTN, who was brought to ED for c/o chest pain and as per pt's daughter she has also been having foul smelling urine and c/o suprapubic pain as well. In the ED she was found to have Normal EKG . she was found to have positive UA and urine cx- klebsiella ESBL. as per patient's family , patient has h/o recurrent UTI's and renal insufficiency. I'm asked to evaluate to help with ESBL UTI in PCN allergic patient. as per patient's daughter she has tolerated meropenem well in the past. Patient currently is resting in bed and denies any complaints. Review of Systems - Review of Systems Review of Systems: ROS- denies any fever or chills, denies any cough or sob, denie any chest pain now, denies any abd. pain , as per pt's daughter pt. had lower abd/suprapubic pain at home , denies any dysurea, had foul smelling urine at home. Past Patient History - Infectious Disease Hx of Infectious Diseases: None - Tetanus Immunizations Tetanus Immunization: Unknown - Past Medical History & Family History Past Medical History?: Yes Past Family History: Reviewed and not pertinent - Past Social History Smoking Status: Never Smoked Alcohol: None Drugs: Denies Home Situation {Lives}: With Family - CARDIAC Hx Cardiac Disorders: Yes Hx Circulatory Problems: Yes Hx Congestive Heart Failure: Yes Hx Hypercholesterolemia: Yes Hx Hypertension: Yes - PULMONARY Hx Respiratory Disorders: Yes Hx Bronchitis: Yes Hx Chronic Obstructive Pulmonary Disease (COPD): Yes - NEUROLOGICAL Hx Neurological Disorder: Yes Hx Dementia: Yes Other/Comment: Dementia - HEENT Hx HEENT Problems: Yes 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., left eye blind - RENAL Hx Chronic Kidney Disease: Yes (mild renal insufficiecy.) - ENDOCRINE/METABOLIC Hx Diabetes Mellitus Type 2: Yes Hx Hypothyroidism: Yes - HEMATOLOGICAL/ONCOLOGICAL Hx Anemia: Yes - INTEGUMENTARY Hx Dermatological Problems: No - MUSCULOSKELETAL/RHEUMATOLOGICAL Hx Arthritis: Yes Hx Falls: Yes Hx Rheumatoid Arthritis: No - GASTROINTESTINAL Hx Constipation: Yes Hx Gastritis: Yes - GENITOURINARY/GYNECOLOGICAL Hx Genitourinary Disorders: Yes Hx Incontinence: Yes Hx Urinary Tract Infection: Yes - PSYCHIATRIC Hx Anxiety: Yes Hx Depression: Yes Hx Substance Use: No - SURGICAL HISTORY Hx Surgeries: Yes Hx Amputation: Yes (Left toes) Hx Angiogram: Yes Hx Cardiac Catheterization: Yes Hx Cholecystectomy: Yes Hx Coronary Artery Bypass Graft: Yes (x4) Hx Coronary Stent: Yes Hx Eye Surgery: Yes - ANESTHESIA Hx Anesthesia: Yes Hx Anesthesia Reactions: No Hx Malignant Hyperthermia: No Has any member of the family had a problem w/ anesthesia?: No Meds Allergies/Adverse Reactions: Allergies Allergy/AdvReac Type Severity Reaction Status Date / Time kiwi Allergy Mild RASH Verified 10/10/17 18:29 morphine Allergy Mild RASH Verified 10/10/17 18:29 Penicillins Allergy Mild RASH Verified 10/10/17 18:29 pineapple Allergy Mild RASH Verified 10/10/17 18:29 watermelon Allergy Mild RASH Verified 10/10/17 18:29 - Medications Medications: Current Medications Acetaminophen/Codeine Phosphate (Tylenol/Codeine 300 Mg/30 Mg) 1 tab PO Q8H PRN PRN Reason: Pain, severe (8-10) Alprazolam (Xanax) 0.25 mg PO HS PRN PRN Reason: Insomnia Stop: 10/17/17 21:33 Last Admin: 10/11/17 21:32 Dose: 0.25 mg Aspirin (Ecotrin) 81 mg PO DAILY [facility] Last Admin: 10/13/17 09:58 Dose: 81 mg Atorvastatin Calcium (Lipitor) 40 mg PO HS [facility] Last Admin: 10/12/17 23:23 Dose: 40 mg Carvedilol (Coreg) 3.125 mg PO DAILY [facility] Last Admin: 10/13/17 09:57 Dose: 3.125 mg Docusate Sodium (Colace) 100 mg PO DAILY PRN PRN Reason: Constipation Last Admin: 10/13/17 09:55 Dose: 100 mg Enoxaparin Sodium (Lovenox) 30 mg SC DAILY [facility] PRN Reason: Protocol Last Admin: 10/13/17 09:54 Dose: 30 mg Furosemide (Lasix) 20 mg PO Q48H [facility] Last Admin: 10/12/17 23:24 Dose: 20 mg Gabapentin (Neurontin) 100 mg PO BID [facility] Last Admin: 10/13/17 09:57 Dose: Not Given Home Med (Ranolazine [Ranexa]) 1,000 mg PO BID [facility] Last Admin: 10/13/17 09:54 Dose: 1,000 mg Insulin Lispro Protam/Lispro Human (Humalog Mix 75/25) 15 units SC BID [facility] Last Admin: 10/13/17 10:00 Dose: Not Given Levothyroxine Sodium (Synthroid) 100 mcg PO DAILY [facility] Last Admin: 10/13/17 09:56 Dose: 100 mcg Nitroglycerin (Nitrostat Sl Tab) 0.4 mg SL Q5M PRN PRN Reason: Chest Pain Physical Exam - Constitutional Appears: No Acute Distress - Head Exam Head Exam: ATRAUMATIC - ENT Exam ENT Exam: Normal Oropharynx - Neck Exam Neck exam: Positive for: Full Rom Additional comments: supple - Respiratory Exam Respiratory Exam: Clear to Auscultation Bilateral, NORMAL BREATHING PATTERN - Cardiovascular Exam Cardiovascular Exam: RRR, +S1, +S2 - GI/Abdominal Exam GI & Abdominal Exam: Normal Bowel Sounds, Soft Additional comments: No distention, No tenderness with palpation no guarding, no rebound - Extremities Exam Extremities exam: Positive for: normal inspection - Neurological Exam Neurological exam: Alert Results - Vital Signs Recent Vital Signs: Last Vital Signs Temp 98.6 F 10/13/17 08:04 Pulse 76 10/13/17 09:57 Resp 18 10/13/17 08:04 BP 119/69 10/13/17 09:57 Pulse Ox 95 10/13/17 08:04 - Labs Result Diagrams: 10/13/17 04:45 10/13/17 04:45 Labs: Laboratory Results - last 24 hr 10/12/17 10/12/17 10/13/17 15:59 21:17 04:45 WBC 8.9 RBC 3.47 L Hgb 10.5 L Hct 31.9 L MCV 91.9 MCH 30.3 MCHC 33.0 RDW 13.7 Plt Count 165 Sodium Potassium Chloride Carbon Dioxide Anion Gap BUN Creatinine Est GFR ( Amer) Est GFR (Non-Af Amer) POC Glucose (mg/dL) 305 H 201 H Random Glucose Calcium 10/13/17 10/13/17 10/13/17 04:45 05:41 11:10 WBC RBC Hgb Hct MCV MCH MCHC RDW Plt Count Sodium 139 Potassium 5.4 H Chloride 97 L Carbon Dioxide 34 H Anion Gap 13 BUN 41 H Creatinine 2.0 H Est GFR ( Amer) 29 Est GFR (Non-Af Amer) 24 POC Glucose (mg/dL) 124 H 205 H Random Glucose 117 H Calcium 8.9 Laboratory Results - last 72 hr 10/10/17 10/10/17 10/10/17 17:19 17:32 17:32 WBC 12.4 H D RBC 3.99 Hgb 12.0 Hct 36.7 MCV 92.1 D MCH 30.2 MCHC 32.7 L RDW 14.0 Plt Count 164 MPV 8.7 Neut % (Auto) 79.4 H Lymph % (Auto) 10.6 L Schley % (Auto) 6.3 Eos % (Auto) 3.0 Baso % (Auto) 0.7 Neut # 9.8 H Lymph # 1.3 Schley # 0.8 Eos # 0.4 Baso # 0.1 pO2 VBG pH VBG pCO2 VBG HCO3 VBG Total CO2 VBG O2 Sat (Calc) VBG Base Excess VBG Potassium Glucose Lactate FiO2 Sodium 135 Potassium 4.6 Chloride 97 L Carbon Dioxide 37 H Anion Gap 6 L BUN 26 H Creatinine 1.3 H Est GFR ( Amer) 48 Est GFR (Non-Af Amer) 40 POC Glucose (mg/dL) 167 H Random Glucose 194 H Calcium 9.5 Total Bilirubin 0.4 AST 26 ALT 32 Alkaline Phosphatase 104 Troponin I < 0.0120 Total Protein 7.3 Albumin 3.5 D Globulin 3.8 Albumin/Globulin Ratio 0.9 L Triglycerides Cholesterol LDL Cholesterol Direct HDL Cholesterol Thyroxine (T4) TSH 3rd Generation Venous Blood Potassium Urine Color Urine Clarity Urine pH Ur Specific [place] Urine Protein Urine Glucose (UA) Urine Ketones Urine Blood Urine Nitrate Urine Bilirubin Urine Urobilinogen Ur Leukocyte Esterase Urine WBC Clumps (Auto) Urine Microscopic WBC Urine Bacteria 10/10/17 10/10/17 10/10/17 17:33 18:21 21:29 WBC RBC Hgb Hct MCV MCH MCHC RDW Plt Count MPV Neut % (Auto) Lymph % (Auto) Schley % (Auto) Eos % (Auto) Baso % (Auto) Neut # Lymph # Schley # Eos # Baso # pO2 27 L VBG pH 7.37 VBG pCO2 66 H* VBG HCO3 31.5 VBG Total CO2 40.2 H VBG O2 Sat (Calc) 57.8 VBG Base Excess 10.2 H VBG Potassium 4.7 Glucose 191 H Lactate 1.2 FiO2 28.0 Sodium 138.0 Potassium Chloride 101.0 Carbon Dioxide Anion Gap BUN Creatinine Est GFR ( Amer) Est GFR (Non-Af Amer) POC Glucose (mg/dL) 145 H Random Glucose Calcium Total Bilirubin AST ALT Alkaline Phosphatase Troponin I Total Protein Albumin Globulin Albumin/Globulin Ratio Triglycerides Cholesterol LDL Cholesterol Direct HDL Cholesterol Thyroxine (T4) TSH 3rd Generation Venous Blood Potassium 4.7 Urine Color Yellow Urine Clarity Turbid Urine pH 5.0 Ur Specific [place] 1.014 Urine Protein 100 Urine Glucose (UA) 50 Urine Ketones Negative Urine Blood Negative Urine Nitrate Positive H Urine Bilirubin Negative Urine Urobilinogen 0.2-1.0 Ur Leukocyte Esterase Large Urine WBC Clumps (Auto) Many H Urine Microscopic WBC 1764 H Urine Bacteria Many H 10/11/17 10/11/17 10/11/17 01:27 04:20 04:20 WBC 10.8 RBC 3.59 L Hgb 11.0 L Hct 33.2 L MCV 92.4 MCH 30.6 MCHC 33.2 RDW 13.8 Plt Count 145 MPV Neut % (Auto) Lymph % (Auto) Schley % (Auto) Eos % (Auto) Baso % (Auto) Neut # Lymph # Schley # Eos # Baso # pO2 VBG pH VBG pCO2 VBG HCO3 VBG Total CO2 VBG O2 Sat (Calc) VBG Base Excess VBG Potassium Glucose Lactate FiO2 Sodium 138 Potassium 4.8 Chloride 100 Carbon Dioxide 32 H Anion Gap 11 BUN 26 H Creatinine 1.3 H Est GFR ( Amer) 48 Est GFR (Non-Af Amer) 40 POC Glucose (mg/dL) Random Glucose 158 H Calcium 8.9 Total Bilirubin 0.4 AST 19 ALT 29 Alkaline Phosphatase 80 Troponin I < 0.0120 Total Protein 6.5 Albumin 3.0 L Globulin 3.5 Albumin/Globulin Ratio 0.9 L Triglycerides 103 D Cholesterol 99 LDL Cholesterol Direct < 30 HDL Cholesterol 36 Thyroxine (T4) 8.85 TSH 3rd Generation 4.59 Venous Blood Potassium Urine Color Urine Clarity Urine pH Ur Specific [place] Urine Protein Urine Glucose (UA) Urine Ketones Urine Blood Urine Nitrate Urine Bilirubin Urine Urobilinogen Ur Leukocyte Esterase Urine WBC Clumps (Auto) Urine Microscopic WBC Urine Bacteria 10/11/17 10/11/17 10/11/17 05:28 09:32 11:24 WBC RBC Hgb Hct MCV MCH MCHC RDW Plt Count MPV Neut % (Auto) Lymph % (Auto) Schley % (Auto) Eos % (Auto) Baso % (Auto) Neut # Lymph # Schley # Eos # Baso # pO2 VBG pH VBG pCO2 VBG HCO3 VBG Total CO2 VBG O2 Sat (Calc) VBG Base Excess VBG Potassium Glucose Lactate FiO2 Sodium Potassium Chloride Carbon Dioxide Anion Gap BUN Creatinine Est GFR ( Amer) Est GFR (Non-Af Amer) POC Glucose (mg/dL) 163 H 108 Random Glucose Calcium Total Bilirubin AST ALT Alkaline Phosphatase Troponin I < 0.0120 Total Protein Albumin Globulin Albumin/Globulin Ratio Triglycerides Cholesterol LDL Cholesterol Direct HDL Cholesterol Thyroxine (T4) TSH 3rd Generation Venous Blood Potassium Urine Color Urine Clarity Urine pH Ur Specific [place] Urine Protein Urine Glucose (UA) Urine Ketones Urine Blood Urine Nitrate Urine Bilirubin Urine Urobilinogen Ur Leukocyte Esterase Urine WBC Clumps (Auto) Urine Microscopic WBC Urine Bacteria 10/11/17 10/11/17 10/11/17 14:54 16:30 21:23 WBC RBC Hgb Hct MCV MCH MCHC RDW Plt Count MPV Neut % (Auto) Lymph % (Auto) Schley % (Auto) Eos % (Auto) Baso % (Auto) Neut # Lymph # Schley # Eos # Baso # pO2 VBG pH VBG pCO2 VBG HCO3 VBG Total CO2 VBG O2 Sat (Calc) VBG Base Excess VBG Potassium Glucose Lactate FiO2 Sodium Potassium Chloride Carbon Dioxide Anion Gap BUN Creatinine Est GFR ( Amer) Est GFR (Non-Af Amer) POC Glucose (mg/dL) 151 H 170 H 218 H Random Glucose Calcium Total Bilirubin AST ALT Alkaline Phosphatase Troponin I Total Protein Albumin Globulin Albumin/Globulin Ratio Triglycerides Cholesterol LDL Cholesterol Direct HDL Cholesterol Thyroxine (T4) TSH 3rd Generation Venous Blood Potassium Urine Color Urine Clarity Urine pH Ur Specific [place] Urine Protein Urine Glucose (UA) Urine Ketones Urine Blood Urine Nitrate Urine Bilirubin Urine Urobilinogen Ur Leukocyte Esterase Urine WBC Clumps (Auto) Urine Microscopic WBC Urine Bacteria 10/12/17 10/12/17 10/12/17 04:30 04:30 05:16 WBC 7.6 RBC 3.49 L Hgb 10.6 L Hct 32.4 L MCV 92.8 MCH 30.3 MCHC 32.6 L RDW 14.2 Plt Count 149 MPV Neut % (Auto) Lymph % (Auto) Schley % (Auto) Eos % (Auto) Baso % (Auto) Neut # Lymph # Schley # Eos # Baso # pO2 VBG pH VBG pCO2 VBG HCO3 VBG Total CO2 VBG O2 Sat (Calc) VBG Base Excess VBG Potassium Glucose Lactate FiO2 Sodium 138 Potassium 4.8 Chloride 97 L Carbon Dioxide 35 H Anion Gap 11 BUN 31 H Creatinine 1.7 H Est GFR ( Amer) 35 Est GFR (Non-Af Amer) 29 POC Glucose (mg/dL) 273 H Random Glucose 294 H Calcium 8.8 Total Bilirubin AST ALT Alkaline Phosphatase Troponin I Total Protein Albumin Globulin Albumin/Globulin Ratio Triglycerides Cholesterol LDL Cholesterol Direct HDL Cholesterol Thyroxine (T4) TSH 3rd Generation Venous Blood Potassium Urine Color Urine Clarity Urine pH Ur Specific [place] Urine Protein Urine Glucose (UA) Urine Ketones Urine Blood Urine Nitrate Urine Bilirubin Urine Urobilinogen Ur Leukocyte Esterase Urine WBC Clumps (Auto) Urine Microscopic WBC Urine Bacteria 10/12/17 10/12/17 10/12/17 10:36 15:59 21:17 WBC RBC Hgb Hct MCV MCH MCHC RDW Plt Count MPV Neut % (Auto) Lymph % (Auto) Schley % (Auto) Eos % (Auto) Baso % (Auto) Neut # Lymph # Schley # Eos # Baso # pO2 VBG pH VBG pCO2 VBG HCO3 VBG Total CO2 VBG O2 Sat (Calc) VBG Base Excess VBG Potassium Glucose Lactate FiO2 Sodium Potassium Chloride Carbon Dioxide Anion Gap BUN Creatinine Est GFR ( Amer) Est GFR (Non-Af Amer) POC Glucose (mg/dL) 306 H 305 H 201 H Random Glucose Calcium Total Bilirubin AST ALT Alkaline Phosphatase Troponin I Total Protein Albumin Globulin Albumin/Globulin Ratio Triglycerides Cholesterol LDL Cholesterol Direct HDL Cholesterol Thyroxine (T4) TSH 3rd Generation Venous Blood Potassium Urine Color Urine Clarity Urine pH Ur Specific [place] Urine Protein Urine Glucose (UA) Urine Ketones Urine Blood Urine Nitrate Urine Bilirubin Urine Urobilinogen Ur Leukocyte Esterase Urine WBC Clumps (Auto) Urine Microscopic WBC Urine Bacteria 10/13/17 10/13/17 10/13/17 04:45 04:45 05:41 WBC 8.9 RBC 3.47 L Hgb 10.5 L Hct 31.9 L MCV 91.9 MCH 30.3 MCHC 33.0 RDW 13.7 Plt Count 165 MPV Neut % (Auto) Lymph % (Auto) Schley % (Auto) Eos % (Auto) Baso % (Auto) Neut # Lymph # Schley # Eos # Baso # pO2 VBG pH VBG pCO2 VBG HCO3 VBG Total CO2 VBG O2 Sat (Calc) VBG Base Excess VBG Potassium Glucose Lactate FiO2 Sodium 139 Potassium 5.4 H Chloride 97 L Carbon Dioxide 34 H Anion Gap 13 BUN 41 H Creatinine 2.0 H Est GFR ( Amer) 29 Est GFR (Non-Af Amer) 24 POC Glucose (mg/dL) 124 H Random Glucose 117 H Calcium 8.9 Total Bilirubin AST ALT Alkaline Phosphatase Troponin I Total Protein Albumin Globulin Albumin/Globulin Ratio Triglycerides Cholesterol LDL Cholesterol Direct HDL Cholesterol Thyroxine (T4) TSH 3rd Generation Venous Blood Potassium Urine Color Urine Clarity Urine pH Ur Specific [place] Urine Protein Urine Glucose (UA) Urine Ketones Urine Blood Urine Nitrate Urine Bilirubin Urine Urobilinogen Ur Leukocyte Esterase Urine WBC Clumps (Auto) Urine Microscopic WBC Urine Bacteria 10/13/17 11:10 WBC RBC Hgb Hct MCV MCH MCHC RDW Plt Count MPV Neut % (Auto) Lymph % (Auto) Schley % (Auto) Eos % (Auto) Baso % (Auto) Neut # Lymph # Schley # Eos # Baso # pO2 VBG pH VBG pCO2 VBG HCO3 VBG Total CO2 VBG O2 Sat (Calc) VBG Base Excess VBG Potassium Glucose Lactate FiO2 Sodium Potassium Chloride Carbon Dioxide Anion Gap BUN Creatinine Est GFR ( Amer) Est GFR (Non-Af Amer) POC Glucose (mg/dL) 205 H Random Glucose Calcium Total Bilirubin AST ALT Alkaline Phosphatase Troponin I Total Protein Albumin Globulin Albumin/Globulin Ratio Triglycerides Cholesterol LDL Cholesterol Direct HDL Cholesterol Thyroxine (T4) TSH 3rd Generation Venous Blood Potassium Urine Color Urine Clarity Urine pH Ur Specific [place] Urine Protein Urine Glucose (UA) Urine Ketones Urine Blood Urine Nitrate Urine Bilirubin Urine Urobilinogen Ur Leukocyte Esterase Urine WBC Clumps (Auto) Urine Microscopic WBC Urine Bacteria Microbiology 10/10/17 17:30 Blood-Venous Blood Culture - Preliminary NO GROWTH AFTER 48 HOURS 10/10/17 18:39 Urine,Catheterized Urine Culture - Final Klebsiella Pneumoniae Ssp Pneu Microbiology 08/30/17 17:04 Urine,Catheterized Urine Culture - Final No Growth (<1,000 CFU/ML) 08/30/17 16:58 Blood-Venous Blood Culture - Final 08/30/17 16:58 Blood-Venous Gram Stain - Final NO GROWTH AFTER 5 DAYS TEST NOT PERFORMED 06/14/17 01:35 Urine,Catheterized Urine Culture - Final No Growth (<1,000 CFU/ML) 06/03/17 15:20 Blood-Venous Blood Culture - Final 06/03/17 15:20 Blood-Venous Gram Stain - Final NO GROWTH AFTER 5 DAYS TEST NOT PERFORMED 06/03/17 14:55 Urine,Catheterized Urine Culture - Final Klebsiella Pneumoniae Ssp Pneu 06/03/17 14:50 Blood-Venous Blood Culture - Final 06/03/17 14:50 Blood-Venous Gram Stain - Final NO GROWTH AFTER 5 DAYS TEST NOT PERFORMED Accession No. : [id number] Patient Name / ID : RAMONITA BERUMEN / [id number] Exam Date : 10/10/2017 18:02:49 ( Approved ) Study Comment : Sex / Age : F / [id number] Creator : Jakob Reis MD Dictator : Jakob Reis MD Animal Control Officer : Alarm Technician : Jakob Reis MD Approver2 : Report Date : 10/11/2017 10:58:29 My Comment : HISTORY: cough COMPARISON: Portable chest 09/01/2017. FINDINGS: LUNGS: No acute infiltrate identified bilaterally. Bilateral lung bases are improved in overall aeration in the interval. Limited scarring or linear atelectasis again seen the left base. PLEURA: No significant pleural effusion identified, no pneumothorax apparent. CARDIOVASCULAR: Borderline cardiomegaly is identified without pulmonary vascular derangement. Sternotomy wires again seen. OSSEOUS STRUCTURES: No significant abnormalities. VISUALIZED UPPER ABDOMEN: Normal. OTHER FINDINGS: None. IMPRESSION: No interval acute cardiopulmonary disease appreciated.Stable prominent cardiac silhouette again noted. No pulmonary vascular derangement identified. Assessment & Plan (1) UTI (urinary tract infection) Status: Acute Priority: High (2) Chronic urinary tract infection Status: Acute Priority: High (3) Renal failure (ARF), acute on chronic Status: Acute (4) COPD (chronic obstructive pulmonary disease) Status: Chronic Priority: Medium - Assessment and Plan (Free Text) Assessment: A/P- 77 year old female with multiple medical conditions including COPD, CAD , chronic recurrent ESBL UTI's who was admitted for chest pain adn weakness and was found to have + UA and ESBL klebsiella Urine culture. currently patient is afebrile and has normal wbc but had slight leukocytosis with left shift on admission. acute on chronic renal insufficiency. UA- pos Urine cx- Klebsiella ESBL as per med records pt. has had multiple ESBL urine infections in past and has been on Genta on last admission as per last ID specialsit's recommendation and as per pt's daughter she has also been on meropneme in past and has tolerated that well . plan- patietn is most likely colonized with ESBl klebsille in her urine , however, in light of foul smelling urine and mild leukocytosis on admission in an elderly female with multiple comorbidities advise to start either meropenem ( renal dose) or ertapenem for 5-7 days to treat the ESBL UTI. pt. to be observed closely while on the carbapenem. also would advise to get renal US as well. all above d/w patient and her daughter and her son and and they verbalize full understanding of all above and agree with above plan of care. Thank you for allowing me to take part in the care of this patient.
[2017-10-13] MEDS ORDERED: Sodium Chloride 0.9% 1,000 ML IV SCH (12:00)
--- NOTE | 2017-10-13 15:04 | CP.PCM.PN ---
Subjective - Date & Time of Evaluation Date of Evaluation: 10/13/17 Time of Evaluation: 10:20 - Subjective Subjective: F/U CP/UTI Pt awake, no A/D, mild suprapubic discomfort, pain L-S R-L knee. Objective - Vital Signs/Intake and Output Vital Signs (last 24 hours): Temp Pulse Resp BP Pulse Ox 98.6 F 63 18 143/64 95 10/13/17 12:36 10/13/17 12:36 10/13/17 12:36 10/13/17 12:36 10/13/17 12:36 Intake and Output: 10/13/17 10/13/17 06:59 18:59 Intake Total 100 Balance 100 - Medications Medications: Current Medications Acetaminophen/Codeine Phosphate (Tylenol/Codeine 300 Mg/30 Mg) 1 tab PO Q8H PRN PRN Reason: Pain, severe (8-10) Alprazolam (Xanax) 0.25 mg PO HS PRN PRN Reason: Insomnia Stop: 10/17/17 21:33 Last Admin: 10/11/17 21:32 Dose: 0.25 mg Aspirin (Ecotrin) 81 mg PO DAILY REPLACED BY [facility] Last Admin: 10/13/17 09:58 Dose: 81 mg Atorvastatin Calcium (Lipitor) 40 mg PO HS REPLACED BY [facility] Last Admin: 10/12/17 23:23 Dose: 40 mg Carvedilol (Coreg) 3.125 mg PO DAILY REPLACED BY [facility] Last Admin: 10/13/17 09:57 Dose: 3.125 mg Docusate Sodium (Colace) 100 mg PO DAILY PRN PRN Reason: Constipation Last Admin: 10/13/17 09:55 Dose: 100 mg Enoxaparin Sodium (Lovenox) 30 mg SC DAILY REPLACED BY [facility] PRN Reason: Protocol Last Admin: 10/13/17 09:54 Dose: 30 mg Furosemide (Lasix) 20 mg PO Q48H REPLACED BY [facility] Last Admin: 10/12/17 23:24 Dose: 20 mg Gabapentin (Neurontin) 100 mg PO BID REPLACED BY [facility] Last Admin: 10/13/17 09:57 Dose: Not Given Home Med (Ranolazine [Ranexa]) 1,000 mg PO BID REPLACED BY [facility] Last Admin: 10/13/17 09:54 Dose: 1,000 mg Sodium Chloride (Sodium Chloride 0.9%) 1,000 mls @ 50 mls/hr IV .Q20H REPLACED BY [facility] Stop: 10/14/17 11:58 Last Admin: 10/13/17 12:52 Dose: 50 mls/hr Meropenem 500 mg/ Sodium (Chloride) 100 mls @ 100 mls/hr IVPB Q8 [facility] PRN Reason: Protocol Insulin Lispro Protam/Lispro Human (Humalog Mix 75/25) 15 units SC BID REPLACED BY [facility] Last Admin: 10/13/17 10:00 Dose: Not Given Levothyroxine Sodium (Synthroid) 100 mcg PO DAILY REPLACED BY [facility] Last Admin: 10/13/17 09:56 Dose: 100 mcg Nitroglycerin (Nitrostat Sl Tab) 0.4 mg SL Q5M PRN PRN Reason: Chest Pain - Labs Labs: 10/13/17 04:45 10/13/17 04:45 - Constitutional Appears: No Acute Distress, Chronically Ill - Head Exam Head Exam: NORMAL INSPECTION - Eye Exam Eye Exam: PERRL (R eye, L eye blind) - ENT Exam Additional comments: Hard of hearing R - Neck Exam Neck Exam: Normal Inspection - Respiratory Exam Respiratory Exam: Decreased Breath Sounds (at bases), Rhonchi (b/l) - Cardiovascular Exam Cardiovascular Exam: REGULAR RHYTHM, Murmur (systolic) - GI/Abdominal Exam GI & Abdominal Exam: Soft, Normal Bowel Sounds. absent: Guarding, Rebound - Extremities Exam Additional comments: L TMA - Back Exam Back Exam: tenderness - Neurological Exam Neurological Exam: Awake Additional comments: Forgetful, follows commands, generalized weakness. - Psychiatric Exam Psychiatric exam: Anxious - Skin Skin Exam: Warm Assessment and Plan (1) Chest pain, atypical Status: Acute (2) UTI (urinary tract infection) Assessment & Plan: Klebsiella Status: Acute (3) COPD (chronic obstructive pulmonary disease) Status: Chronic (4) Diabetes mellitus Status: Chronic (5) CHF (congestive heart failure) Status: Chronic (6) Hx of CABG Status: Chronic (7) Hypercholesterolemia Status: Chronic (8) Hypothyroidism Status: Chronic (9) Osteoarthritis Status: Chronic - Assessment and Plan (Free Text) Plan: Pt had used Merren one year ago with no reaction. Continue with Clinda, Merrem and rest of Tx.
[2017-10-13] MEDS: Meropenem 500 MG in Sodium Chloride 0.9% 100 ML IVPB SCH (17:29)
--- NOTE | 2017-10-13 18:39 | US ---
PROCEDURE: Ultrasound of the Kidneys HISTORY: acute on CR[facility] COMPARISON: CT chest, abdomen performed 08/30/17 TECHNIQUE: Sonogram of the kidneys. FINDINGS: RIGHT KIDNEY: Measures: 9.6 x 4.0 x 4.3 cm. No obstructing calculus, hydronephrosis, or renal cyst identified. LEFT KIDNEY: Limited visualization. Measures: 9.3 x 4.9 x 4.5 cm. No obstructing calculus, hydronephrosis, or renal cyst identified. OTHER FINDINGS: None. IMPRESSION: Limited study. Unremarkable renal sonogram as above.
[2017-10-13 20:12] LABS: ABG ALLEN TEST YES; ARTERIAL BLOOD GAS HCO3 31.2 mmol/L (21-28); ARTERIAL BLOOD GAS HEMOGLOBIN 10.8 g/dL (11.7-17.4); ARTERIAL BLOOD GAS O2 CAPACITY 14.8 mL/dL (16-24); ARTERIAL BLOOD GAS O2 SAT 87.8 % (95-98); ARTERIAL BLOOD GAS PCO2 71 mm/Hg (35-45); ARTERIAL BLOOD GAS PH 7.32 (7.35-7.45); ARTERIAL BLOOD GAS PO2 49 mm/Hg (80-100); ARTERIAL BLOOD GAS TCO2 38.8 mmol/L (22-28)
[2017-10-13] MEDS ORDERED: Albuterol-Ipratrop 3 mg / 0.5 (3 ml) UD INH STA (20:12)
[2017-10-13 20:35] LABS: BASO % 0.4 % (0.0-2.0); EOS # 0.1 K/uL (0.0-0.7); EOS % 1.7 % (0.0-4.0); HEMOGLOBIN 10.8 g/dL (12.0-16.0); LYMPH % 12.3 % (20.0-40.0); MEAN CELL VOLUME 92.3 fl (81.0-99.0); MEAN CORPUSCULAR HEMOGLOBIN 30.1 pg (27.0-31.0); MEAN CORPUSCULAR HGB CONC 32.6 g/dL (33.0-37.0); MEAN PLATELET VOLUME 8.9 fl (7.2-11.7); MONO # 0.9 K/uL (0.0-0.8); MONO % 10.7 % (0.0-10.0); NEUT # 6.3 K/uL (1.8-7.0); NEUT % 74.9 % (50.0-75.0); RBC 3.59 Mil/uL (3.80-5.20); RED CELL DISTRIBUTION WIDTH 14.3 % (11.5-14.5); WHITE BLOOD COUNT 8.4 K/uL (4.8-10.8)
[2017-10-13 20:41] LABS: ALB/GLOB RATIO 0.9 (1.0-2.1); ALBUMIN 3.2 g/dL (3.5-5.0); ALT/SGPT 31 U/L (9-52); AST/SGOT 29 U/L (14-36); BLOOD UREA NITROGEN 43 mg/dl (7-17); CALCIUM 9.1 mg/dL (8.4-10.2); GFR AFRICAN-AMERICAN 25; GFR NON-AFRICAN AMERICAN 20
[2017-10-13] MEDS ORDERED: Dextrose 50% SYRINGE Inj (50 ml) ONE (21:26)
[2017-10-13] MEDS ORDERED: Dextrose 50% SYRINGE Inj (50 ml) IVP ONE (21:42)
--- NOTE | 2017-10-13 22:01 | PCM.RRT ---
<Parvin Coffman - Last Filed: 10/14/17 00:48> [employer] Nurse Assessment - Situation [employer] Responder Arrival Time: 19:54 Location: tele Room Number: [id number] [employer] Reason for Call: O2 Saturation below 90% [employer] Called By: RN - IV IV Inserted during [employer]?: No - Respiratory Oxygen Delivery Method: Mask Received Nebulizer Treatments: Yes (DUONEB once) Was the Patient Ventilated with Bag/Mask 100% O2?: Yes Secretions Suctioned?: Yes Was the Patient Intubated?: No Was the Patient Placed on a Ventilator?: No - Ventilator Settings Peak Flow: 150 - Medication Medications Administered During [employer]: Duoneb. Mucomyst - Diagnostic Test Ordered EKG: Yes Chest X-Ray: Yes - Stat Labs Ordered [employer] Stat Labs Ordered: CBC, BMP, TROPONIN, ABG - Vital Signs Vital Signs: BP 11/42 HR 72 RR 18 O2sat 66 - Time [employer] Ended Time [employer] Ended: 20:20 - Vital Signs at end of [employer] Vital Signs at end of [employer]: BP 127/69 HR 72 RR 18 O2sat 99 - Recommendations [employer] Level of Care Recommendations: Remain in current setting Notifications: Attending Physician - Respiratory Oxygen Delivery Method: Face Mask @% - Constitutional Appears: No Acute Distress - Head Head Exam: NORMAL INSPECTION - Eyes Eye Exam: EOMI, PERRL - Respiratory Exam Respiratory Exam: Decreased Breath Sounds. absent: Accessory Muscle Use - Cardiovascular Exam Cardiovascular Exam: REGULAR RHYTHM, +S1, +S2. absent: Tachycardia, Murmur - GI/Abdominal Exam GI & Abdominal Exam: Soft, Normal Bowel Sounds. absent: Distended - Neurological Exam Neurological Exam: absent: Alert Plan - Assessment of Findings&Treatment Plan [employer] called by RN for O2 sat bellow 90% 77 y/o F, Hx of HTN, CABG, COPD with desaturation of 66%, unresponsive, no cooperative with examination. Associated cough. Secretions were suctioned. No fever, vomiting, tachycardia. Impression: Desaturation bellow 90%, r/o aspiration. CBC CMP Troponin ABG CXR EKG Duoneb once Mucomyst. Repeat ABG in 1 hour <Jarrett Bledsoe - Last Filed: 10/14/17 03:15> [employer] Nurse Assessment - Vital Signs Vital Signs: Rapid Response Vital Sign Blood Pressure 113/42 Pulse Rate 73 Respiratory Rate 28 Temperature 98.2 F Oxygen Saturation 77 - Vital Signs at end of [employer] Vital Signs at end of [employer]: Rapid Response End Vital Sign Blood Pressure 119/47 Pulse Rate 76 Respiratory Rate 25 Temperature 98.2 F O2 Sat by Pulse Oximetry 98 Plan - Assessment of Findings&Treatment Plan Agree with assessment and plan. 77 yo female admitted for pneumonia and CHF, with acute on chronic respiratory failure, who likely aspirated and desaturated to 66%. After aggressive nasal and oropharyngeal suctioning, during [employer], patient 's respiratory status improved. F/u ABG an hour later shows improvement in her hypercapnea. Will place on Venti mask at 50% overnight. Family and Attending physician, Dr. Oliver, notified. CT chest without contrast was ordered. Dr. Bledsoe
[2017-10-13 22:04] LABS: ABG ALLEN TEST YES; ARTERIAL BLOOD GAS HCO3 31.9 mmol/L (21-28); ARTERIAL BLOOD GAS HEMOGLOBIN 10.9 g/dL (11.7-17.4); ARTERIAL BLOOD GAS O2 CAPACITY 15.2 mL/dL (16-24); ARTERIAL BLOOD GAS O2 CONTENT 14.8 ML/dL (15-23); ARTERIAL BLOOD GAS O2 SAT 97.6 % (95-98); ARTERIAL BLOOD GAS PCO2 59 mm/Hg (35-45); ARTERIAL BLOOD GAS PH 7.39 (7.35-7.45); ARTERIAL BLOOD GAS PO2 95 mm/Hg (80-100); ARTERIAL BLOOD GAS TCO2 37.5 mmol/L (22-28)
[2017-10-13] MEDS: Artificial Tears Opht Soln OU PRN (22:48)
--- NOTE | 2017-10-14 00:14 | CT ---
EXAM: CT Head Without Intravenous Contrast CLINICAL HISTORY: 77 years old, female; Signs and symptoms; Altered mental status/memory loss TECHNIQUE: Axial computed tomography images of the head/brain without intravenous contrast. All CT scans at this facility use one or more dose reduction techniques, viz.: automated exposure control; ma/kV adjustment per patient size (including targeted exams where dose is matched to indication; i.e. head); or iterative reconstruction technique. Coronal and sagittal reformatted images were created and reviewed. COMPARISON: CT - HEAD W/O CONTRAST 2017-08-30 08:31 FINDINGS: Brain: Prominence of the sulci and ventricular system consistent with atrophy. Hypodensity within the white matter consistent with chronic small vessel ischemic change. No hemorrhage. Ventricles: No hydrocephalus. Bones/joints: Unremarkable. No acute fracture. Soft tissues: Unremarkable. Sinuses: Complete opacification left maxillary sinus. Partial opacification ethmoid air cells. Mucosal thickening versus small air fluid level sphenoid sinus. Mastoid air cells: Unremarkable as visualized. No mastoid effusion. IMPRESSION: No acute intracranial abnormality.
--- NOTE | 2017-10-14 00:26 | CT ---
EXAM: CT Chest Without Intravenous Contrast CLINICAL HISTORY: 77 years old, female; Condition or disease; Other: Pneumonia TECHNIQUE: Axial computed tomography images of the chest without intravenous contrast. All CT scans at this facility use one or more dose reduction techniques, viz.: automated exposure control; ma/kV adjustment per patient size (including targeted exams where dose is matched to indication; i.e. head); or iterative reconstruction technique. Coronal and sagittal reformatted images were created and reviewed. COMPARISON: CT - CHEST, ABDOMEN W/O CONTRAST 2017-08-30 14:15 FINDINGS: Lungs: Small opacities in the lung bases, left greater than right. Air bronchograms noted. Pleural space: Trace bilateral pleural effusions. No pneumothorax. Heart: Mild cardiomegaly. No significant pericardial effusion. Bones/joints: Median sternotomy wires. Kyphosis. Diffuse thoracic spinal degenerative changes. No acute fracture. No dislocation. Soft tissues: Unremarkable. Vasculature: Atherosclerotic vascular disease. No thoracic aortic aneurysm. Lymph nodes: Unremarkable. No enlarged lymph nodes. Gallbladder and bile ducts: Cholecystectomy. IMPRESSION: 1. Consolidation at lung bases, left greater than right. 2. Trace bilateral pleural effusions. 3. Remainder of findings as above.
[2017-10-14] MEDS: Clindamycin 600mg/50ml NS 600 MG/50 ML BAG IVPB SCH ×3 (00:41→16:21)
[2017-10-14] MEDS: Meropenem 500 MG in Sodium Chloride 0.9% 100 ML IVPB SCH ×3 (00:42→16:27)
[2017-10-14 06:23] LABS: CALCIUM 8.8 mg/dL (8.4-10.2)
[2017-10-14] MEDS: Levothyroxine 100 MCG TAB PO SCH (06:47)
[2017-10-14] MEDS: Insulin Lispro Mix 75/25 100 units/ml (HumaLog) 10ml SC SCH ×2 (08:39→16:28)
[2017-10-14] MEDS: Enoxaparin 30 mg Syringe SC SCH (08:40)
[2017-10-14] MEDS: Patient's Own Med (Ranolazine [Ranexa] 1,000 MG) PO SCH ×2 (08:42→16:30)
[2017-10-14] MEDS: Acetylcysteine 10% 4 ML IH SCH ×3 (08:45→20:30)
[2017-10-14] MEDS: Albuterol-Ipratrop 3 mg / 0.5 (3 ml) UD INH SCH ×4 (08:45→20:30)
--- NOTE | 2017-10-14 11:37 | RAD ---
HISTORY: desaturation COMPARISON: 10/10/2017 FINDINGS: LUNGS: No pulmonary infiltrate. Linear opacity mid left lung, likely atelectasis. Possible left upper lobe linear atelectasis. PLEURA: Minimal blunting left costophrenic angle possible small pleural effusion. No pneumothorax. CARDIOVASCULAR: Normal heart size. Sternotomy wires. OSSEOUS STRUCTURES: No significant abnormalities. VISUALIZED UPPER ABDOMEN: Normal. OTHER FINDINGS: None. IMPRESSION: No acute infiltrate. Left sided linear atelectasis. Questionable very small left pleural effusion.
[2017-10-14] MEDS: Bacitracin OINT 15GM TOP SCH ×2 (12:04→16:27)
[2017-10-14 12:12] LABS: RENAL EPITHELIAL 1 /hpf (0-3); URINE BACTERIA OCC (<OCC); URINE BILIRUBIN NEGATIVE (NEGATIVE); URINE BLOOD SMALL (NEGATIVE); URINE CLARITY TURBID (Clear); URINE COLOR AMBER (YELLOW); URINE GLUCOSE (UA) NEG (Normal); URINE LEUKOCYTE ESTERASE LARGE Leu/uL (Negative); URINE NITRATE POSITIVE (NEGATIVE); URINE PROTEIN 100 mg/dL (NEGATIVE); URINE UROBILINOGEN 0.2-1.0 mg/dL (0.2-1.0); WBC CLUMPS MANY /hpf
--- NOTE | 2017-10-14 14:20 | CARD ---
APPROVED REPORT EKG Measurement Heart [id number] <Conclusion> Sinus rhythm with 1st degree AV block Otherwise normal ECG
--- NOTE | 2017-10-14 14:26 | CP.PCM.PN ---
Subjective - Date & Time of Evaluation Date of Evaluation: 10/14/17 Time of Evaluation: 10:00 - Subjective Subjective: F/U PNA/UTI Pt c/o suprapubic pain. Objective - Vital Signs/Intake and Output Vital Signs (last 24 hours): Temp Pulse Resp BP Pulse Ox 98.6 F 69 18 133/67 100 10/14/17 12:49 10/14/17 12:49 10/14/17 12:49 10/14/17 12:49 10/14/17 12:49 Intake and Output: 10/14/17 10/14/17 06:59 18:59 Intake Total 950 Balance 950 - Medications Medications: Current Medications Acetaminophen/Codeine Phosphate (Tylenol/Codeine 300 Mg/30 Mg) 1 tab PO Q8H PRN PRN Reason: Pain, severe (8-10) Acetylcysteine (Mucomyst 10% 4ml) 2 ml IH RBID [facility] Last Admin: 10/14/17 11:57 Dose: 2 ml Albuterol/Ipratropium (Duoneb 3 Mg/0.5 Mg (3 Ml) Ud) 3 ml INH RQID [facility] Last Admin: 10/14/17 11:58 Dose: 3 ml Alprazolam (Xanax) 0.25 mg PO HS PRN PRN Reason: Insomnia Stop: 10/17/17 21:33 Last Admin: 10/11/17 21:32 Dose: 0.25 mg Artificial Tears (Artificial Tears) 2 drop OU Q4 PRN PRN Reason: Dry eyes Last Admin: 10/13/17 22:48 Dose: 2 drop Aspirin (Ecotrin) 81 mg PO DAILY [facility] Last Admin: 10/14/17 08:39 Dose: Not Given Atorvastatin Calcium (Lipitor) 40 mg PO HS [facility] Last Admin: 10/13/17 22:47 Dose: Not Given Bacitracin (Bacitracin Oint) 1 applic TOP BID [facility] Last Admin: 10/14/17 12:04 Dose: 1 applic Carvedilol (Coreg) 3.125 mg PO DAILY [facility] Last Admin: 10/14/17 08:39 Dose: Not Given Docusate Sodium (Colace) 100 mg PO DAILY PRN PRN Reason: Constipation Last Admin: 10/13/17 09:55 Dose: 100 mg Enoxaparin Sodium (Lovenox) 30 mg SC DAILY [facility] PRN Reason: Protocol Last Admin: 10/14/17 08:40 Dose: 30 mg Furosemide (Lasix) 20 mg PO Q48H [facility] Last Admin: 10/12/17 23:24 Dose: 20 mg Gabapentin (Neurontin) 100 mg PO BID [facility] Last Admin: 10/13/17 09:57 Dose: Not Given Home Med (Ranolazine [Ranexa]) 1,000 mg PO BID [facility] Last Admin: 10/14/17 08:42 Dose: Not Given Meropenem 500 mg/ Sodium (Chloride) 100 mls @ 100 mls/hr IVPB Q8 [facility] PRN Reason: Protocol Last Admin: 10/14/17 08:41 Dose: 100 mls/hr Dextrose/Sodium Chloride (Dextrose 5%-0.9% Ns 500 Ml) 500 mls @ 75 mls/hr IV .Q6H40M [facility] Stop: 10/14/17 20:49 Last Admin: 10/14/17 05:34 Dose: Not Given Clindamycin Phosphate (Cleocin In Normal Saline) 600 mg in 50 mls @ 50 mls/hr IVPB Q8 [facility] PRN Reason: Protocol Last Admin: 10/14/17 08:38 Dose: 50 mls/hr Insulin Lispro Protam/Lispro Human (Humalog Mix 75/25) 15 units SC BID [facility] Last Admin: 10/14/17 08:39 Dose: Not Given Levothyroxine Sodium (Synthroid) 100 mcg PO DAILY@0630 [facility] Last Admin: 10/14/17 06:47 Dose: Not Given Nitroglycerin (Nitrostat Sl Tab) 0.4 mg SL Q5M PRN PRN Reason: Chest Pain - Labs Labs: 10/13/17 20:15 10/14/17 05:35 - Constitutional Appears: Chronically Ill - Head Exam Head Exam: NORMAL INSPECTION - Eye Exam Eye Exam: PERRL (R eye, L eye blind) - ENT Exam Additional comments: Hard of hearing R - Respiratory Exam Respiratory Exam: Decreased Breath Sounds (at bases), Rhonchi (at bases) - Cardiovascular Exam Cardiovascular Exam: REGULAR RHYTHM, Murmur (systolic) - GI/Abdominal Exam GI & Abdominal Exam: Soft, Normal Bowel Sounds. absent: Guarding, Rebound - Extremities Exam Additional comments: L TMA - Back Exam Back Exam: tenderness - Neurological Exam Neurological Exam: Awake Additional comments: Confused, forgetful, follows simple commands, generalized weakness. - Psychiatric Exam Psychiatric exam: Anxious - Skin Skin Exam: Warm Assessment and Plan (1) Chest pain, atypical Status: Acute (2) UTI (urinary tract infection) Status: Acute (3) COPD (chronic obstructive pulmonary disease) Status: Chronic (4) Diabetes mellitus Status: Chronic (5) CHF (congestive heart failure) Status: Chronic (6) Hx of CABG Status: Chronic (7) Hypercholesterolemia Status: Chronic (8) Hypothyroidism Status: Chronic (9) Osteoarthritis Status: Chronic - Assessment and Plan (Free Text) Plan: CXR shows b/l PNA. Continue Merren, Clinda, Duoneb and rest of Tx.
--- NOTE | 2017-10-14 14:54 | CP.PCM.PN ---
Subjective - Date & Time of Evaluation Date of Evaluation: 10/14/17 Time of Evaluation: 14:54 - Subjective Subjective: ID Note- Patient seen and examined today . 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 no fever. patient sitting up in bed in NAD. denies any pain. as per nurse also tolerating meropenem w/o any problems. Objective - Vital Signs/Intake and Output Vital Signs (last 24 hours): Temp Pulse Resp BP Pulse Ox 98.6 F 69 18 133/67 100 10/14/17 12:49 10/14/17 12:49 10/14/17 12:49 10/14/17 12:49 10/14/17 12:49 Intake and Output: 10/14/17 10/14/17 06:59 18:59 Intake Total 950 Balance 950 - Medications Medications: Current Medications Acetaminophen/Codeine Phosphate (Tylenol/Codeine 300 Mg/30 Mg) 1 tab PO Q8H PRN PRN Reason: Pain, severe (8-10) Acetylcysteine (Mucomyst 10% 4ml) 2 ml IH RBID [facility] Last Admin: 10/14/17 11:57 Dose: 2 ml Albuterol/Ipratropium (Duoneb 3 Mg/0.5 Mg (3 Ml) Ud) 3 ml INH RQID [facility] Last Admin: 10/14/17 11:58 Dose: 3 ml Alprazolam (Xanax) 0.25 mg PO HS PRN PRN Reason: Insomnia Stop: 10/17/17 21:33 Last Admin: 10/11/17 21:32 Dose: 0.25 mg Artificial Tears (Artificial Tears) 2 drop OU Q4 PRN PRN Reason: Dry eyes Last Admin: 10/13/17 22:48 Dose: 2 drop Aspirin (Ecotrin) 81 mg PO DAILY [facility] Last Admin: 10/14/17 08:39 Dose: Not Given Atorvastatin Calcium (Lipitor) 40 mg PO HS [facility] Last Admin: 10/13/17 22:47 Dose: Not Given Bacitracin (Bacitracin Oint) 1 applic TOP BID [facility] Last Admin: 10/14/17 12:04 Dose: 1 applic Carvedilol (Coreg) 3.125 mg PO DAILY [facility] Last Admin: 10/14/17 08:39 Dose: Not Given Docusate Sodium (Colace) 100 mg PO DAILY PRN PRN Reason: Constipation Last Admin: 10/13/17 09:55 Dose: 100 mg Enoxaparin Sodium (Lovenox) 30 mg SC DAILY [facility] PRN Reason: Protocol Last Admin: 10/14/17 08:40 Dose: 30 mg Furosemide (Lasix) 20 mg PO Q48H [facility] Last Admin: 10/12/17 23:24 Dose: 20 mg Gabapentin (Neurontin) 100 mg PO BID [facility] Last Admin: 10/13/17 09:57 Dose: Not Given Home Med (Ranolazine [Ranexa]) 1,000 mg PO BID [facility] Last Admin: 10/14/17 08:42 Dose: Not Given Meropenem 500 mg/ Sodium (Chloride) 100 mls @ 100 mls/hr IVPB Q8 [facility] PRN Reason: Protocol Last Admin: 10/14/17 08:41 Dose: 100 mls/hr Dextrose/Sodium Chloride (Dextrose 5%-0.9% Ns 500 Ml) 500 mls @ 75 mls/hr IV .Q6H40M [facility] Stop: 10/14/17 20:49 Last Admin: 10/14/17 05:34 Dose: Not Given Clindamycin Phosphate (Cleocin In Normal Saline) 600 mg in 50 mls @ 50 mls/hr IVPB Q8 [facility] PRN Reason: Protocol Last Admin: 10/14/17 08:38 Dose: 50 mls/hr Insulin Lispro Protam/Lispro Human (Humalog Mix 75/25) 15 units SC BID [facility] Last Admin: 10/14/17 08:39 Dose: Not Given Levothyroxine Sodium (Synthroid) 100 mcg PO DAILY@0630 [facility] Last Admin: 10/14/17 06:47 Dose: Not Given Nitroglycerin (Nitrostat Sl Tab) 0.4 mg SL Q5M PRN PRN Reason: Chest Pain - Labs Labs: - Additional Findings Additional findings: - Constitutional Appears: No Acute Distress - Head Exam Head Exam: ATRAUMATIC - ENT Exam ENT Exam: Normal Oropharynx - Neck Exam Neck exam: Positive for: Full Rom Additional comments: supple - Respiratory Exam Respiratory Exam: Clear to Auscultation Bilateral, NORMAL BREATHING PATTERN - Cardiovascular Exam Cardiovascular Exam: RRR, +S1, +S2 - GI/Abdominal Exam GI & Abdominal Exam: Normal Bowel Sounds, Soft Additional comments: No distention, No tenderness with palpation no guarding, no rebound - Extremities Exam Extremities exam: Positive for: normal inspection - Neurological Exam Neurological exam: Awake Laboratory Results - last 72 hr 10/11/17 10/11/17 10/11/17 11:24 14:54 16:30 WBC RBC Hgb Hct MCV MCH MCHC RDW Plt Count MPV Neut % (Auto) Lymph % (Auto) [place] % (Auto) Eos % (Auto) Baso % (Auto) Neut # Lymph # [place] # Eos # Baso # pCO2 pO2 HCO3 ABG pH ABG Total CO2 ABG O2 Saturation ABG O2 Content ABG Base Excess ABG Hemoglobin ABG Carboxyhemoglobin POC ABG HHb (Measured) ABG Methemoglobin ABG O2 Capacity August Test A-a O2 Difference Hgb O2 Saturation Vent Mode FiO2 Crit Value Called To Crit Value Called By Crit Value Read Back Blood Gas Notified Time Sodium Potassium Chloride Carbon Dioxide Anion Gap BUN Creatinine Est GFR ( Amer) Est GFR (Non-Af Amer) POC Glucose (mg/dL) 108 151 H 170 H Random Glucose Calcium Total Bilirubin AST ALT Alkaline Phosphatase Troponin I Total Protein Albumin Globulin Albumin/Globulin Ratio Urine Color Urine Clarity Urine pH Ur Specific Garvin Urine Protein Urine Glucose (UA) Urine Ketones Urine Blood Urine Nitrate Urine Bilirubin Urine Urobilinogen Ur Leukocyte Esterase Urine RBC (Auto) Urine WBC Clumps (Auto) Urine Microscopic WBC Ur Renal Epithelial Cell Urine Bacteria 10/11/17 10/12/17 10/12/17 21:23 04:30 04:30 WBC 7.6 RBC 3.49 L Hgb 10.6 L Hct 32.4 L MCV 92.8 MCH 30.3 MCHC 32.6 L RDW 14.2 Plt Count 149 MPV Neut % (Auto) Lymph % (Auto) [place] % (Auto) Eos % (Auto) Baso % (Auto) Neut # Lymph # [place] # Eos # Baso # pCO2 pO2 HCO3 ABG pH ABG Total CO2 ABG O2 Saturation ABG O2 Content ABG Base Excess ABG Hemoglobin ABG Carboxyhemoglobin POC ABG HHb (Measured) ABG Methemoglobin ABG O2 Capacity August Test A-a O2 Difference Hgb O2 Saturation Vent Mode FiO2 Crit Value Called To Crit Value Called By Crit Value Read Back Blood Gas Notified Time Sodium 138 Potassium 4.8 Chloride 97 L Carbon Dioxide 35 H Anion Gap 11 BUN 31 H Creatinine 1.7 H Est GFR ( Amer) 35 Est GFR (Non-Af Amer) 29 POC Glucose (mg/dL) 218 H Random Glucose 294 H Calcium 8.8 Total Bilirubin AST ALT Alkaline Phosphatase Troponin I Total Protein Albumin Globulin Albumin/Globulin Ratio Urine Color Urine Clarity Urine pH Ur Specific Garvin Urine Protein Urine Glucose (UA) Urine Ketones Urine Blood Urine Nitrate Urine Bilirubin Urine Urobilinogen Ur Leukocyte Esterase Urine RBC (Auto) Urine WBC Clumps (Auto) Urine Microscopic WBC Ur Renal Epithelial Cell Urine Bacteria 10/12/17 10/12/17 10/12/17 05:16 10:36 15:59 WBC RBC Hgb Hct MCV MCH MCHC RDW Plt Count MPV Neut % (Auto) Lymph % (Auto) [place] % (Auto) Eos % (Auto) Baso % (Auto) Neut # Lymph # [place] # Eos # Baso # pCO2 pO2 HCO3 ABG pH ABG Total CO2 ABG O2 Saturation ABG O2 Content ABG Base Excess ABG Hemoglobin ABG Carboxyhemoglobin POC ABG HHb (Measured) ABG Methemoglobin ABG O2 Capacity August Test A-a O2 Difference Hgb O2 Saturation Vent Mode FiO2 Crit Value Called To Crit Value Called By Crit Value Read Back Blood Gas Notified Time Sodium Potassium Chloride Carbon Dioxide Anion Gap BUN Creatinine Est GFR ( Amer) Est GFR (Non-Af Amer) POC Glucose (mg/dL) 273 H 306 H 305 H Random Glucose Calcium Total Bilirubin AST ALT Alkaline Phosphatase Troponin I Total Protein Albumin Globulin Albumin/Globulin Ratio Urine Color Urine Clarity Urine pH Ur Specific Garvin Urine Protein Urine Glucose (UA) Urine Ketones Urine Blood Urine Nitrate Urine Bilirubin Urine Urobilinogen Ur Leukocyte Esterase Urine RBC (Auto) Urine WBC Clumps (Auto) Urine Microscopic WBC Ur Renal Epithelial Cell Urine Bacteria 10/12/17 10/13/17 10/13/17 21:17 04:45 04:45 WBC 8.9 RBC 3.47 L Hgb 10.5 L Hct 31.9 L MCV 91.9 MCH 30.3 MCHC 33.0 RDW 13.7 Plt Count 165 MPV Neut % (Auto) Lymph % (Auto) [place] % (Auto) Eos % (Auto) Baso % (Auto) Neut # Lymph # [place] # Eos # Baso # pCO2 pO2 HCO3 ABG pH ABG Total CO2 ABG O2 Saturation ABG O2 Content ABG Base Excess ABG Hemoglobin ABG Carboxyhemoglobin POC ABG HHb (Measured) ABG Methemoglobin ABG O2 Capacity August Test A-a O2 Difference Hgb O2 Saturation Vent Mode FiO2 Crit Value Called To Crit Value Called By Crit Value Read Back Blood Gas Notified Time Sodium 139 Potassium 5.4 H Chloride 97 L Carbon Dioxide 34 H Anion Gap 13 BUN 41 H Creatinine 2.0 H Est GFR ( Amer) 29 Est GFR (Non-Af Amer) 24 POC Glucose (mg/dL) 201 H Random Glucose 117 H Calcium 8.9 Total Bilirubin AST ALT Alkaline Phosphatase Troponin I Total Protein Albumin Globulin Albumin/Globulin Ratio Urine Color Urine Clarity Urine pH Ur Specific Garvin Urine Protein Urine Glucose (UA) Urine Ketones Urine Blood Urine Nitrate Urine Bilirubin Urine Urobilinogen Ur Leukocyte Esterase Urine RBC (Auto) Urine WBC Clumps (Auto) Urine Microscopic WBC Ur Renal Epithelial Cell Urine Bacteria 10/13/17 10/13/17 10/13/17 05:41 11:10 15:15 WBC RBC Hgb Hct MCV MCH MCHC RDW Plt Count MPV Neut % (Auto) Lymph % (Auto) [place] % (Auto) Eos % (Auto) Baso % (Auto) Neut # Lymph # [place] # Eos # Baso # pCO2 pO2 HCO3 ABG pH ABG Total CO2 ABG O2 Saturation ABG O2 Content ABG Base Excess ABG Hemoglobin ABG Carboxyhemoglobin POC ABG HHb (Measured) ABG Methemoglobin ABG O2 Capacity August Test A-a O2 Difference Hgb O2 Saturation Vent Mode FiO2 Crit Value Called To Crit Value Called By Crit Value Read Back Blood Gas Notified Time Sodium Potassium Chloride Carbon Dioxide Anion Gap BUN Creatinine Est GFR ( Amer) Est GFR (Non-Af Amer) POC Glucose (mg/dL) 124 H 205 H 207 H Random Glucose Calcium Total Bilirubin AST ALT Alkaline Phosphatase Troponin I Total Protein Albumin Globulin Albumin/Globulin Ratio Urine Color Urine Clarity Urine pH Ur Specific Garvin Urine Protein Urine Glucose (UA) Urine Ketones Urine Blood Urine Nitrate Urine Bilirubin Urine Urobilinogen Ur Leukocyte Esterase Urine RBC (Auto) Urine WBC Clumps (Auto) Urine Microscopic WBC Ur Renal Epithelial Cell Urine Bacteria 10/13/17 10/13/17 10/13/17 17:52 20:04 20:15 WBC 8.4 RBC 3.59 L Hgb 10.8 L Hct 33.1 L MCV 92.3 MCH 30.1 MCHC 32.6 L RDW 14.3 Plt Count 183 MPV 8.9 Neut % (Auto) 74.9 Lymph % (Auto) 12.3 L [place] % (Auto) 10.7 H Eos % (Auto) 1.7 Baso % (Auto) 0.4 Neut # 6.3 Lymph # 1.0 [place] # 0.9 H Eos # 0.1 Baso # 0.0 pCO2 71 H* pO2 49 L HCO3 31.2 H ABG pH 7.32 L ABG Total CO2 38.8 H ABG O2 Saturation 87.8 L ABG O2 Content 13.0 L ABG Base Excess 8.4 H ABG Hemoglobin 10.8 L ABG Carboxyhemoglobin 1.3 POC ABG HHb (Measured) 11.9 H ABG Methemoglobin 0.9 ABG O2 Capacity 14.8 L August Test Yes A-a O2 Difference 575.0 Hgb O2 Saturation 85.9 L Vent Mode 100% nrb FiO2 100.0 Crit Value Called To neeta Coffman md Crit Value Called By Paul garcia Crit Value Read Back Y Blood Gas Notified Time 2007 Sodium Potassium Chloride Carbon Dioxide Anion Gap BUN Creatinine Est GFR ( Amer) Est GFR (Non-Af Amer) POC Glucose (mg/dL) 124 H Random Glucose Calcium Total Bilirubin AST ALT Alkaline Phosphatase Troponin I Total Protein Albumin Globulin Albumin/Globulin Ratio Urine Color Urine Clarity Urine pH Ur Specific Garvin Urine Protein Urine Glucose (UA) Urine Ketones Urine Blood Urine Nitrate Urine Bilirubin Urine Urobilinogen Ur Leukocyte Esterase Urine RBC (Auto) Urine WBC Clumps (Auto) Urine Microscopic WBC Ur Renal Epithelial Cell Urine Bacteria 10/13/17 10/13/17 10/13/17 20:15 20:36 20:50 WBC RBC Hgb Hct MCV MCH MCHC RDW Plt Count MPV Neut % (Auto) Lymph % (Auto) [place] % (Auto) Eos % (Auto) Baso % (Auto) Neut # Lymph # [place] # Eos # Baso # pCO2 59 H pO2 95 HCO3 31.9 H ABG pH 7.39 ABG Total CO2 37.5 H ABG O2 Saturation 97.6 ABG O2 Content 14.8 L ABG Base Excess 9.0 H ABG Hemoglobin 10.9 L ABG Carboxyhemoglobin 0.9 POC ABG HHb (Measured) 2.3 ABG Methemoglobin 1.3 ABG O2 Capacity 15.2 L August Test Yes A-a O2 Difference 544.0 Hgb O2 Saturation 95.5 Vent Mode 100% nrb FiO2 100.0 Crit Value Called To Crit Value Called By Crit Value Read Back Blood Gas Notified Time Sodium 137 Potassium 4.7 Chloride 97 L Carbon Dioxide 33 H Anion Gap 12 BUN 43 H Creatinine 2.3 H Est GFR ( Amer) 25 Est GFR (Non-Af Amer) 20 POC Glucose (mg/dL) 77 Random Glucose 87 Calcium 9.1 Total Bilirubin 0.5 AST 29 ALT 31 Alkaline Phosphatase 72 Troponin I < 0.0120 Total Protein 6.7 Albumin 3.2 L Globulin 3.5 Albumin/Globulin Ratio 0.9 L Urine Color Urine Clarity Urine pH Ur Specific Garvin Urine Protein Urine Glucose (UA) Urine Ketones Urine Blood Urine Nitrate Urine Bilirubin Urine Urobilinogen Ur Leukocyte Esterase Urine RBC (Auto) Urine WBC Clumps (Auto) Urine Microscopic WBC Ur Renal Epithelial Cell Urine Bacteria 10/13/17 10/13/17 10/14/17 21:21 22:00 05:35 WBC RBC Hgb Hct MCV MCH MCHC RDW Plt Count MPV Neut % (Auto) Lymph % (Auto) [place] % (Auto) Eos % (Auto) Baso % (Auto) Neut # Lymph # [place] # Eos # Baso # pCO2 pO2 HCO3 ABG pH ABG Total CO2 ABG O2 Saturation ABG O2 Content ABG Base Excess ABG Hemoglobin ABG Carboxyhemoglobin POC ABG HHb (Measured) ABG Methemoglobin ABG O2 Capacity August Test A-a O2 Difference Hgb O2 Saturation Vent Mode FiO2 Crit Value Called To Crit Value Called By Crit Value Read Back Blood Gas Notified Time Sodium 138 Potassium 4.7 Chloride 100 Carbon Dioxide 31 H Anion Gap 12 BUN 43 H Creatinine 2.3 H Est GFR ( Amer) 25 Est GFR (Non-Af Amer) 20 POC Glucose (mg/dL) 64 L 212 H Random Glucose 204 H Calcium 8.8 Total Bilirubin AST ALT Alkaline Phosphatase Troponin I Total Protein Albumin Globulin Albumin/Globulin Ratio Urine Color Urine Clarity Urine pH Ur Specific Garvin Urine Protein Urine Glucose (UA) Urine Ketones Urine Blood Urine Nitrate Urine Bilirubin Urine Urobilinogen Ur Leukocyte Esterase Urine RBC (Auto) Urine WBC Clumps (Auto) Urine Microscopic WBC Ur Renal Epithelial Cell Urine Bacteria 10/14/17 10/14/17 10/14/17 05:50 11:15 11:34 WBC RBC Hgb Hct MCV MCH MCHC RDW Plt Count MPV Neut % (Auto) Lymph % (Auto) [place] % (Auto) Eos % (Auto) Baso % (Auto) Neut # Lymph # [place] # Eos # Baso # pCO2 pO2 HCO3 ABG pH ABG Total CO2 ABG O2 Saturation ABG O2 Content ABG Base Excess ABG Hemoglobin ABG Carboxyhemoglobin POC ABG HHb (Measured) ABG Methemoglobin ABG O2 Capacity August Test A-a O2 Difference Hgb O2 Saturation Vent Mode FiO2 Crit Value Called To Crit Value Called By Crit Value Read Back Blood Gas Notified Time Sodium Potassium Chloride Carbon Dioxide Anion Gap BUN Creatinine Est GFR ( Amer) Est GFR (Non-Af Amer) POC Glucose (mg/dL) 208 H 238 H Random Glucose Calcium Total Bilirubin AST ALT Alkaline Phosphatase Troponin I Total Protein Albumin Globulin Albumin/Globulin Ratio Urine Color Sarah Urine Clarity Turbid Urine pH 6.0 Ur Specific Garvin 1.012 Urine Protein 100 Urine Glucose (UA) Neg Urine Ketones Negative Urine Blood Small Urine Nitrate Positive H Urine Bilirubin Negative Urine Urobilinogen 0.2-1.0 Ur Leukocyte Esterase Large Urine RBC (Auto) 36 H Urine WBC Clumps (Auto) Many H Urine Microscopic WBC 1820 H Ur Renal Epithelial Cell 1 Urine Bacteria Occ H Microbiology 10/10/17 17:30 Blood-Venous Blood Culture - Preliminary NO GROWTH AFTER 3 DAYS 10/10/17 18:39 Urine,Catheterized Urine Culture - Final Klebsiella Pneumoniae Ssp Pneu Accession No. : [id number] Patient Name / ID : RAMONITA BERUMEN / [id number] Exam Date : 10/13/2017 23:39:13 ( Approved ) Study Comment : Sex / Age : F / 77Y Creator : JOSE MANUEL SAWYER Dictator : Cardiopulmonary Technician And Eeg Tech : Hat Presser : JOSE MANUEL SAWYER Approver2 : Report Date : 10/14/2017 00:14:00 My Comment : [facility] Division of Radiology [address] [address] Tel. no. Patient Name: JAMAICA HAMILTON Pt. Address: [address] [place] [address] Rec #: [id number] [place] [address]: Florin Bledsoe DO Pt CELL Order Location: H.TEL : 1940 Female Age: 77 Order #: [id number] Reason for exam: altered mental status CT Scan HEAD W/O CONTRAST Exam Date: 10/13/17 This imaging exam was performed at [facility] EXAM: CT Head Without Intravenous Contrast CLINICAL HISTORY: 77 years old, female; Signs and symptoms; Altered mental status/memory loss TECHNIQUE: Axial computed tomography images of the head/brain without intravenous contrast. All CT scans at this facility use one or more dose reduction techniques, viz.: automated exposure control; ma/kV adjustment per patient size (including targeted exams where dose is matched to indication; i.e. head); or iterative reconstruction technique. Coronal and sagittal reformatted images were created and reviewed. COMPARISON: CT - HEAD W/O CONTRAST 2017-08-30 08:31 FINDINGS: Brain: Prominence of the sulci and ventricular system consistent with atrophy. Hypodensity within the white matter consistent with chronic small vessel ischemic change. No hemorrhage. Ventricles: No hydrocephalus. Bones/joints: Unremarkable. No acute fracture. Soft tissues: Unremarkable. Sinuses: Complete opacification left maxillary sinus. Partial opacification ethmoid air cells. Mucosal thickening versus small air fluid level sphenoid sinus. Mastoid air cells: Unremarkable as visualized. No mastoid effusion. IMPRESSION: No acute intracranial abnormality. Dictated By: Jose Manuel Sawyer MD Dictated Date/Time: 10/14/1713 Signed By: Jose Manuel Sawyer MD Date Signed: 13 Transcribed By: BEN Transcribe Date/Time : 10/14/17 0014 [id number] Accession No. : [id number] Patient Name / ID : RAMONITA BERUMEN / [id number] Exam Date : 10/13/2017 23:41:30 ( Approved ) Study Comment : Sex / Age : F / 77Y Creator : JOSE MANUEL SAWYER Dictator : Cardiopulmonary Technician And Eeg Tech : Hat Presser : JOSE MANUEL SAWYER Approver2 : Report Date : 10/14/2017 00:26:00 My Comment : [facility] Division of Radiology [address] [place] [address] Tel. no. Patient Name: JAMAICA HAMILTON Pt. Address: [address] [place] [address] Rec #: [id number] [place] [address]: Florin Bledsoe DO Pt CELL Order Location: H.TEL : 1940 Female Age: 77 Order #: [id number] Reason for exam: pneumonia CT Scan CHEST W/O CONTRAST Exam Date: 10/13/17 This imaging exam was performed at [facility] EXAM: CT Chest Without Intravenous Contrast CLINICAL HISTORY: 77 years old, female; Condition or disease; Other: Pneumonia TECHNIQUE: Axial computed tomography images of the chest without intravenous contrast. All CT scans at this facility use one or more dose reduction techniques, viz.: automated exposure control; ma/kV adjustment per patient size (including targeted exams where dose is matched to indication; i.e. head); or iterative reconstruction technique. Coronal and sagittal reformatted images were created and reviewed. COMPARISON: CT - CHEST, ABDOMEN W/O CONTRAST 2017-08-30 14:15 FINDINGS: Lungs: Small opacities in the lung bases, left greater than right. Air bronchograms noted. Pleural space: Trace bilateral pleural effusions. No pneumothorax. Heart: Mild cardiomegaly. No significant pericardial effusion. Bones/joints: Median sternotomy wires. Kyphosis. Diffuse thoracic spinal degenerative changes. No acute fracture. No dislocation. Soft tissues: Unremarkable. Vasculature: Atherosclerotic vascular disease. No thoracic aortic aneurysm. Lymph nodes: Unremarkable. No enlarged lymph nodes. Gallbladder and bile ducts: Cholecystectomy. IMPRESSION: 1. Consolidation at lung bases, left greater than right. 2. Trace bilateral pleural effusions. 3. Remainder of findings as above. Dictated By: Jose Manuel Sawyer MD Dictated Date/Time: 10/14/1725 Signed By: Jose Manuel Sawyer MD Date Signed: 25 Transcribed By: BEN Transcribe Date/Time : 10/14/1725 HOMER/SIXTO Assessment and Plan (1) UTI (urinary tract infection) Status: Acute (2) Chronic urinary tract infection Status: Acute (3) Renal failure (ARF), acute on chronic Status: Acute (4) COPD (chronic obstructive pulmonary disease) Status: Chronic - Assessment and Plan (Free Text) Assessment: A/P- 77 year old female with multiple medical conditions including COPD, CAD , chronic recurrent ESBL UTI's who was admitted for chest pain adn weakness and was found to have + UA and ESBL klebsiella Urine culture. 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 asp pneumonitis chect Ct report- consolidations on b/l bases left greater than right and mild pleural effusion. currently patient is afebrile and has normal wbc acute on chronic renal insufficiency. UA- pos Urine cx- Klebsiella ESBL 10/10/2017 plan- advise to continue with IV meropenem for ESBL UTI day #2. await repeat urine cx from yesterday. check blood cx x 2. monitor aspiration precautions. no objection to continuing with IV clindamycin which was initiated by PMD for asp penumonitis.
[2017-10-14] MEDS: Dextrose 5%/0.9% NS 1,000 ML IV SCH (16:28)
[2017-10-15] MEDS: Clindamycin 600mg/50ml NS 600 MG/50 ML BAG IVPB SCH ×3 (00:14→16:09)
[2017-10-15] MEDS: Meropenem 500 MG in Sodium Chloride 0.9% 100 ML IVPB SCH ×3 (01:19→16:13)
[2017-10-15] MEDS: Dextrose 5%/0.9% NS 1,000 ML IV SCH (05:15)
[2017-10-15 06:33] LABS: HEMOGLOBIN 9.1 g/dL (12.0-16.0); MEAN CELL VOLUME 93.1 fl (81.0-99.0); MEAN CORPUSCULAR HEMOGLOBIN 30.2 pg (27.0-31.0); MEAN CORPUSCULAR HGB CONC 32.5 g/dL (33.0-37.0); RBC 3.01 Mil/uL (3.80-5.20); WHITE BLOOD COUNT 4.6 K/uL (4.8-10.8)
[2017-10-15] MEDS: Levothyroxine 100 MCG TAB PO SCH (06:52)
[2017-10-15 07:01] LABS: CALCIUM 8.4 mg/dL (8.4-10.2)
[2017-10-15] MEDS: Albuterol-Ipratrop 3 mg / 0.5 (3 ml) UD INH SCH ×4 (08:12→19:03)
[2017-10-15] MEDS: Acetylcysteine 10% 4 ML IH SCH ×2 (08:12→19:02)
[2017-10-15] MEDS ORDERED: Glucagon Recombinant 1 mg Inj IM PRN (08:13)
[2017-10-15] MEDS ORDERED: Dextrose 50% SYRINGE Inj (50 ml) IV PRN (08:13)
[2017-10-15] MEDS: Insulin Lispro Mix 75/25 100 units/ml (HumaLog) 10ml SC SCH ×2 (08:22→17:13)
[2017-10-15] MEDS: Enoxaparin 30 mg Syringe SC SCH (08:29)
[2017-10-15] MEDS: Patient's Own Med (Ranolazine [Ranexa] 1,000 MG) PO SCH ×2 (08:30→16:12)
[2017-10-15] MEDS: Bacitracin OINT 15GM TOP SCH ×2 (08:31→16:12)
[2017-10-15] MEDS: Sodium Chloride 0.9% 1,000 ML IV SCH ×2 (08:40→21:59)
[2017-10-15 09:00] LABS: ABG ALLEN TEST YES; ARTERIAL BLOOD GAS HCO3 28.3 mmol/L (21-28); ARTERIAL BLOOD GAS HEMOGLOBIN 9.8 g/dL (11.7-17.4); ARTERIAL BLOOD GAS O2 CAPACITY 13.5 mL/dL (16-24); ARTERIAL BLOOD GAS O2 CONTENT 12.4 ML/dL (15-23); ARTERIAL BLOOD GAS O2 SAT 91.7 % (95-98); ARTERIAL BLOOD GAS PCO2 58 mm/Hg (35-45); ARTERIAL BLOOD GAS PH 7.34 (7.35-7.45); ARTERIAL BLOOD GAS PO2 55 mm/Hg (80-100); ARTERIAL BLOOD GAS TCO2 33.1 mmol/L (22-28)
--- NOTE | 2017-10-15 12:15 | CP.PCM.PCO ---
Assessment and Plan - Assessment and Plan (Free Text) Assessment: patient will require 1 week of Merrem 500 mg q8 and clindamycin 600mg iv q8 for 1 week as per and
[2017-10-15] MEDS: Insulin Regular 100 units/ml SC SCH ×4 (12:38→21:50)
[2017-10-15] MEDS: Artificial Tears Opht Soln OU PRN (13:30)
--- NOTE | 2017-10-15 15:51 | CP.PCM.PN ---
Subjective - Date & Time of Evaluation Date of Evaluation: 10/15/17 Time of Evaluation: 13:00 - Subjective Subjective: F/U PNA/ UTI Pt confused, at times did not recognizing family's members. Objective - Vital Signs/Intake and Output Vital Signs (last 24 hours): Temp Pulse Resp BP Pulse Ox 98.6 F 67 18 117/55 L 99 10/15/17 12:34 10/15/17 12:34 10/15/17 12:34 10/15/17 12:34 10/15/17 12:34 - Medications Medications: Current Medications Acetaminophen/Codeine Phosphate (Tylenol/Codeine 300 Mg/30 Mg) 1 tab PO Q8H PRN PRN Reason: Pain, severe (8-10) Acetylcysteine (Mucomyst 10% 4ml) 2 ml IH RBID [facility] Last Admin: 10/15/17 08:12 Dose: 2 ml Albuterol/Ipratropium (Duoneb 3 Mg/0.5 Mg (3 Ml) Ud) 3 ml INH RQID [facility] Last Admin: 10/15/17 15:36 Dose: 3 ml Alprazolam (Xanax) 0.25 mg PO HS PRN PRN Reason: Insomnia Stop: 10/17/17 21:33 Last Admin: 10/11/17 21:32 Dose: 0.25 mg Artificial Tears (Artificial Tears) 2 drop OU Q4 PRN PRN Reason: Dry eyes Last Admin: 10/15/17 13:30 Dose: 2 drop Aspirin (Ecotrin) 81 mg PO DAILY [facility] Last Admin: 10/15/17 08:29 Dose: 81 mg Atorvastatin Calcium (Lipitor) 40 mg PO HS [facility] Last Admin: 10/14/17 21:47 Dose: Not Given Bacitracin (Bacitracin Oint) 1 applic TOP BID [facility] Last Admin: 10/15/17 08:31 Dose: 1 applic Carvedilol (Coreg) 3.125 mg PO DAILY [facility] Last Admin: 10/15/17 08:31 Dose: 3.125 mg Dextrose (Dextrose 50% Inj) 0 ml IV STAT PRN; Protocol PRN Reason: Hypoglycemia Protocol Dextrose (Glutose 15) 0 gm PO ONCE PRN; Protocol PRN Reason: Hypoglycemia Protocol Docusate Sodium (Colace) 100 mg PO DAILY PRN PRN Reason: Constipation Last Admin: 10/13/17 09:55 Dose: 100 mg Enoxaparin Sodium (Lovenox) 30 mg SC DAILY [facility] PRN Reason: Protocol Last Admin: 10/15/17 08:29 Dose: 30 mg Furosemide (Lasix) 20 mg PO Q48H [facility] Last Admin: 10/12/17 23:24 Dose: 20 mg Gabapentin (Neurontin) 100 mg PO BID [facility] Last Admin: 10/13/17 09:57 Dose: Not Given Glucagon (Glucagen Diagnostic Kit) 0 mg IM STAT PRN; Protocol PRN Reason: Hypoglycemia Protocol Home Med (Ranolazine [Ranexa]) 1,000 mg PO BID [facility] Last Admin: 10/15/17 08:30 Dose: 1,000 mg Meropenem 500 mg/ Sodium (Chloride) 100 mls @ 100 mls/hr IVPB Q8 [facility] PRN Reason: Protocol Last Admin: 10/15/17 11:43 Dose: 100 mls/hr Clindamycin Phosphate (Cleocin In Normal Saline) 600 mg in 50 mls @ 50 mls/hr IVPB Q8 [facility] PRN Reason: Protocol Last Admin: 10/15/17 08:32 Dose: 50 mls/hr Sodium Chloride (Sodium Chloride 0.9%) 1,000 mls @ 75 mls/hr IV .[id number] [facility] Last Admin: 10/15/17 08:40 Dose: 75 mls/hr Insulin Human Regular (Humulin R) 0 units SC ACHS [facility] PRN Reason: Protocol Last Admin: 10/15/17 12:42 Dose: Not Given Insulin Lispro Protam/Lispro Human (Humalog Mix 75/25) 15 units SC BID [facility] Last Admin: 10/15/17 08:22 Dose: 15 units Levothyroxine Sodium (Synthroid) 100 mcg PO DAILY@0630 [facility] Last Admin: 10/15/17 06:52 Dose: 100 mcg Nitroglycerin (Nitrostat Sl Tab) 0.4 mg SL Q5M PRN PRN Reason: Chest Pain Ondansetron HCl (Zofran Inj) 4 mg IVP Q4 PRN PRN Reason: Nausea/Vomiting Last Admin: 10/14/17 20:53 Dose: 4 mg - Labs Labs: 10/15/17 05:19 10/15/17 05:19 - Constitutional Appears: No Acute Distress, Chronically Ill - Head Exam Head Exam: NORMAL INSPECTION - Eye Exam Eye Exam: PERRL (R eye. L eye blind.) - ENT Exam Additional comments: Hard of hearing R. - Neck Exam Neck Exam: Normal Inspection - Respiratory Exam Respiratory Exam: Decreased Breath Sounds (at bases), Rhonchi (b/l) - Cardiovascular Exam Cardiovascular Exam: REGULAR RHYTHM, Murmur (systolic) - GI/Abdominal Exam GI & Abdominal Exam: Soft, Normal Bowel Sounds. absent: Guarding, Rebound - Extremities Exam Additional comments: L TMA - Back Exam Back Exam: tenderness - Neurological Exam Neurological Exam: Awake Additional comments: Forgetful, follows commands, generalized weakness. - Psychiatric Exam Psychiatric exam: Anxious - Skin Skin Exam: Warm Assessment and Plan (1) PNA (pneumonia) Status: Acute (2) Chest pain, atypical Status: Acute (3) UTI (urinary tract infection) Status: Acute (4) COPD (chronic obstructive pulmonary disease) Status: Chronic (5) Diabetes mellitus Status: Chronic (6) CHF (congestive heart failure) Status: Chronic (7) Hx of CABG Status: Chronic (8) Hypercholesterolemia Status: Chronic (9) Hypothyroidism Status: Chronic (10) Osteoarthritis Status: Chronic - Assessment and Plan (Free Text) Plan: Continue Clinda, Merren, Duoneb and rest of Tx.
--- NOTE | 2017-10-15 18:01 | CP.PCM.PN ---
Subjective - Date & Time of Evaluation Date of Evaluation: 10/15/17 Time of Evaluation: 15:00 - Subjective Subjective: ID Note- patient seen and examined today. pt's daughters are at her bedside. pt. awake but as per pt's daughter she seems somewhat confused and she states each time her mother gets an UTI she gets like this. no new events overnight. afebrile. Objective - Vital Signs/Intake and Output Vital Signs (last 24 hours): Temp Pulse Resp BP Pulse Ox 99.1 F 76 20 109/64 99 10/15/17 16:31 10/15/17 16:31 10/15/17 16:31 10/15/17 16:31 10/15/17 16:31 - Medications Medications: Current Medications Acetaminophen/Codeine Phosphate (Tylenol/Codeine 300 Mg/30 Mg) 1 tab PO Q8H PRN PRN Reason: Pain, severe (8-10) Acetylcysteine (Mucomyst 10% 4ml) 2 ml IH RBID [facility] Last Admin: 10/15/17 08:12 Dose: 2 ml Albuterol/Ipratropium (Duoneb 3 Mg/0.5 Mg (3 Ml) Ud) 3 ml INH RQID [facility] Last Admin: 10/15/17 15:36 Dose: 3 ml Alprazolam (Xanax) 0.25 mg PO HS PRN PRN Reason: Insomnia Stop: 10/17/17 21:33 Last Admin: 10/11/17 21:32 Dose: 0.25 mg Artificial Tears (Artificial Tears) 2 drop OU Q4 PRN PRN Reason: Dry eyes Last Admin: 10/15/17 13:30 Dose: 2 drop Aspirin (Ecotrin) 81 mg PO DAILY [facility] Last Admin: 10/15/17 08:29 Dose: 81 mg Atorvastatin Calcium (Lipitor) 40 mg PO HS [facility] Last Admin: 10/14/17 21:47 Dose: Not Given Bacitracin (Bacitracin Oint) 1 applic TOP BID [facility] Last Admin: 10/15/17 16:12 Dose: 1 applic Carvedilol (Coreg) 3.125 mg PO DAILY [facility] Last Admin: 10/15/17 08:31 Dose: 3.125 mg Dextrose (Dextrose 50% Inj) 0 ml IV STAT PRN; Protocol PRN Reason: Hypoglycemia Protocol Dextrose (Glutose 15) 0 gm PO ONCE PRN; Protocol PRN Reason: Hypoglycemia Protocol Docusate Sodium (Colace) 100 mg PO DAILY PRN PRN Reason: Constipation Last Admin: 10/13/17 09:55 Dose: 100 mg Enoxaparin Sodium (Lovenox) 30 mg SC DAILY [facility] PRN Reason: Protocol Last Admin: 10/15/17 08:29 Dose: 30 mg Furosemide (Lasix) 20 mg PO Q48H [facility] Last Admin: 10/12/17 23:24 Dose: 20 mg Gabapentin (Neurontin) 100 mg PO BID [facility] Last Admin: 10/13/17 09:57 Dose: Not Given Glucagon (Glucagen Diagnostic Kit) 0 mg IM STAT PRN; Protocol PRN Reason: Hypoglycemia Protocol Home Med (Ranolazine [Ranexa]) 1,000 mg PO BID [facility] Last Admin: 10/15/17 16:12 Dose: 1,000 mg Meropenem 500 mg/ Sodium (Chloride) 100 mls @ 100 mls/hr IVPB Q8 [facility] PRN Reason: Protocol Last Admin: 10/15/17 16:13 Dose: 100 mls/hr Clindamycin Phosphate (Cleocin In Normal Saline) 600 mg in 50 mls @ 50 mls/hr IVPB Q8 [facility] PRN Reason: Protocol Last Admin: 10/15/17 16:09 Dose: 50 mls/hr Sodium Chloride (Sodium Chloride 0.9%) 1,000 mls @ 75 mls/hr IV .[id number] [facility] Last Admin: 10/15/17 08:40 Dose: 75 mls/hr Insulin Human Regular (Humulin R) 0 units SC ACHS [facility] PRN Reason: Protocol Last Admin: 10/15/17 17:14 Dose: Not Given Insulin Lispro Protam/Lispro Human (Humalog Mix 75/25) 15 units SC BID [facility] Last Admin: 10/15/17 17:13 Dose: 15 units Levothyroxine Sodium (Synthroid) 100 mcg PO DAILY@0630 [facility] Last Admin: 10/15/17 06:52 Dose: 100 mcg Nitroglycerin (Nitrostat Sl Tab) 0.4 mg SL Q5M PRN PRN Reason: Chest Pain Ondansetron HCl (Zofran Inj) 4 mg IVP Q4 PRN PRN Reason: Nausea/Vomiting Last Admin: 10/14/17 20:53 Dose: 4 mg - Labs Labs: - Additional Findings Additional findings: - Constitutional Appears: No Acute Distress - Head Exam Head Exam: ATRAUMATIC - ENT Exam ENT Exam: Normal Oropharynx - Neck Exam Neck exam: Positive for: Full Rom Additional comments: supple - Respiratory Exam Respiratory Exam: Clear to Auscultation Bilateral, NORMAL BREATHING PATTERN - Cardiovascular Exam Cardiovascular Exam: RRR, +S1, +S2 - GI/Abdominal Exam GI & Abdominal Exam: Normal Bowel Sounds, Soft Additional comments: No distention, No tenderness with palpation no guarding, no rebound - Extremities Exam Extremities exam: Positive for: normal inspection - Neurological Exam Neurological exam: Awake Laboratory Results - last 72 hr 10/12/17 10/13/17 10/13/17 21:17 04:45 04:45 WBC 8.9 RBC 3.47 L Hgb 10.5 L Hct 31.9 L MCV 91.9 MCH 30.3 MCHC 33.0 RDW 13.7 Plt Count 165 MPV Neut % (Auto) Lymph % (Auto) Parmer % (Auto) Eos % (Auto) Baso % (Auto) Neut # Lymph # Parmer # Eos # Baso # pCO2 pO2 HCO3 ABG pH ABG Total CO2 ABG O2 Saturation ABG O2 Content ABG Base Excess ABG Hemoglobin ABG Carboxyhemoglobin POC ABG HHb (Measured) ABG Methemoglobin ABG O2 Capacity August Test A-a O2 Difference Hgb O2 Saturation Vent Mode FiO2 Blood Gas Comments Crit Value Called To Crit Value Called By Crit Value Read Back Blood Gas Notified Time Sodium 139 Potassium 5.4 H Chloride 97 L Carbon Dioxide 34 H Anion Gap 13 BUN 41 H Creatinine 2.0 H Est GFR ( Amer) 29 Est GFR (Non-Af Amer) 24 POC Glucose (mg/dL) 201 H Random Glucose 117 H Calcium 8.9 Total Bilirubin AST ALT Alkaline Phosphatase Troponin I Total Protein Albumin Globulin Albumin/Globulin Ratio Urine Color Urine Clarity Urine pH Ur Specific Drake Urine Protein Urine Glucose (UA) Urine Ketones Urine Blood Urine Nitrate Urine Bilirubin Urine Urobilinogen Ur Leukocyte Esterase Urine RBC (Auto) Urine WBC Clumps (Auto) Urine Microscopic WBC Ur Renal Epithelial Cell Urine Bacteria Urine Creatinine Urine Microalbumin Microalb/Creat Ratio 10/13/17 10/13/17 10/13/17 05:41 11:10 15:15 WBC RBC Hgb Hct MCV MCH MCHC RDW Plt Count MPV Neut % (Auto) Lymph % (Auto) Parmer % (Auto) Eos % (Auto) Baso % (Auto) Neut # Lymph # Parmer # Eos # Baso # pCO2 pO2 HCO3 ABG pH ABG Total CO2 ABG O2 Saturation ABG O2 Content ABG Base Excess ABG Hemoglobin ABG Carboxyhemoglobin POC ABG HHb (Measured) ABG Methemoglobin ABG O2 Capacity August Test A-a O2 Difference Hgb O2 Saturation Vent Mode FiO2 Blood Gas Comments Crit Value Called To Crit Value Called By Crit Value Read Back Blood Gas Notified Time Sodium Potassium Chloride Carbon Dioxide Anion Gap BUN Creatinine Est GFR ( Amer) Est GFR (Non-Af Amer) POC Glucose (mg/dL) 124 H 205 H 207 H Random Glucose Calcium Total Bilirubin AST ALT Alkaline Phosphatase Troponin I Total Protein Albumin Globulin Albumin/Globulin Ratio Urine Color Urine Clarity Urine pH Ur Specific Drake Urine Protein Urine Glucose (UA) Urine Ketones Urine Blood Urine Nitrate Urine Bilirubin Urine Urobilinogen Ur Leukocyte Esterase Urine RBC (Auto) Urine WBC Clumps (Auto) Urine Microscopic WBC Ur Renal Epithelial Cell Urine Bacteria Urine Creatinine Urine Microalbumin Microalb/Creat Ratio 10/13/17 10/13/17 10/13/17 17:52 20:04 20:15 WBC 8.4 RBC 3.59 L Hgb 10.8 L Hct 33.1 L MCV 92.3 MCH 30.1 MCHC 32.6 L RDW 14.3 Plt Count 183 MPV 8.9 Neut % (Auto) 74.9 Lymph % (Auto) 12.3 L Parmer % (Auto) 10.7 H Eos % (Auto) 1.7 Baso % (Auto) 0.4 Neut # 6.3 Lymph # 1.0 Parmer # 0.9 H Eos # 0.1 Baso # 0.0 pCO2 71 H* pO2 49 L HCO3 31.2 H ABG pH 7.32 L ABG Total CO2 38.8 H ABG O2 Saturation 87.8 L ABG O2 Content 13.0 L ABG Base Excess 8.4 H ABG Hemoglobin 10.8 L ABG Carboxyhemoglobin 1.3 POC ABG HHb (Measured) 11.9 H ABG Methemoglobin 0.9 ABG O2 Capacity 14.8 L August Test Yes A-a O2 Difference 575.0 Hgb O2 Saturation 85.9 L Vent Mode 100% nrb FiO2 100.0 Blood Gas Comments Crit Value Called To neeta Coffman md Crit Value Called By Paul garcia Crit Value Read Back Y Blood Gas Notified Time 2007 Sodium Potassium Chloride Carbon Dioxide Anion Gap BUN Creatinine Est GFR ( Amer) Est GFR (Non-Af Amer) POC Glucose (mg/dL) 124 H Random Glucose Calcium Total Bilirubin AST ALT Alkaline Phosphatase Troponin I Total Protein Albumin Globulin Albumin/Globulin Ratio Urine Color Urine Clarity Urine pH Ur Specific Drake Urine Protein Urine Glucose (UA) Urine Ketones Urine Blood Urine Nitrate Urine Bilirubin Urine Urobilinogen Ur Leukocyte Esterase Urine RBC (Auto) Urine WBC Clumps (Auto) Urine Microscopic WBC Ur Renal Epithelial Cell Urine Bacteria Urine Creatinine Urine Microalbumin Microalb/Creat Ratio 10/13/17 10/13/17 10/13/17 20:15 20:36 20:50 WBC RBC Hgb Hct MCV MCH MCHC RDW Plt Count MPV Neut % (Auto) Lymph % (Auto) Parmer % (Auto) Eos % (Auto) Baso % (Auto) Neut # Lymph # Parmer # Eos # Baso # pCO2 59 H pO2 95 HCO3 31.9 H ABG pH 7.39 ABG Total CO2 37.5 H ABG O2 Saturation 97.6 ABG O2 Content 14.8 L ABG Base Excess 9.0 H ABG Hemoglobin 10.9 L ABG Carboxyhemoglobin 0.9 POC ABG HHb (Measured) 2.3 ABG Methemoglobin 1.3 ABG O2 Capacity 15.2 L August Test Yes A-a O2 Difference 544.0 Hgb O2 Saturation 95.5 Vent Mode 100% nrb FiO2 100.0 Blood Gas Comments Crit Value Called To Crit Value Called By Crit Value Read Back Blood Gas Notified Time Sodium 137 Potassium 4.7 Chloride 97 L Carbon Dioxide 33 H Anion Gap 12 BUN 43 H Creatinine 2.3 H Est GFR ( Amer) 25 Est GFR (Non-Af Amer) 20 POC Glucose (mg/dL) 77 Random Glucose 87 Calcium 9.1 Total Bilirubin 0.5 AST 29 ALT 31 Alkaline Phosphatase 72 Troponin I < 0.0120 Total Protein 6.7 Albumin 3.2 L Globulin 3.5 Albumin/Globulin Ratio 0.9 L Urine Color Urine Clarity Urine pH Ur Specific Drake Urine Protein Urine Glucose (UA) Urine Ketones Urine Blood Urine Nitrate Urine Bilirubin Urine Urobilinogen Ur Leukocyte Esterase Urine RBC (Auto) Urine WBC Clumps (Auto) Urine Microscopic WBC Ur Renal Epithelial Cell Urine Bacteria Urine Creatinine Urine Microalbumin Microalb/Creat Ratio 10/13/17 10/13/17 10/14/17 21:21 22:00 05:35 WBC RBC Hgb Hct MCV MCH MCHC RDW Plt Count MPV Neut % (Auto) Lymph % (Auto) Parmer % (Auto) Eos % (Auto) Baso % (Auto) Neut # Lymph # Parmer # Eos # Baso # pCO2 pO2 HCO3 ABG pH ABG Total CO2 ABG O2 Saturation ABG O2 Content ABG Base Excess ABG Hemoglobin ABG Carboxyhemoglobin POC ABG HHb (Measured) ABG Methemoglobin ABG O2 Capacity August Test A-a O2 Difference Hgb O2 Saturation Vent Mode FiO2 Blood Gas Comments Crit Value Called To Crit Value Called By Crit Value Read Back Blood Gas Notified Time Sodium 138 Potassium 4.7 Chloride 100 Carbon Dioxide 31 H Anion Gap 12 BUN 43 H Creatinine 2.3 H Est GFR ( Amer) 25 Est GFR (Non-Af Amer) 20 POC Glucose (mg/dL) 64 L 212 H Random Glucose 204 H Calcium 8.8 Total Bilirubin AST ALT Alkaline Phosphatase Troponin I Total Protein Albumin Globulin Albumin/Globulin Ratio Urine Color Urine Clarity Urine pH Ur Specific Drake Urine Protein Urine Glucose (UA) Urine Ketones Urine Blood Urine Nitrate Urine Bilirubin Urine Urobilinogen Ur Leukocyte Esterase Urine RBC (Auto) Urine WBC Clumps (Auto) Urine Microscopic WBC Ur Renal Epithelial Cell Urine Bacteria Urine Creatinine Urine Microalbumin Microalb/Creat Ratio 10/14/17 10/14/17 10/14/17 05:50 11:15 11:34 WBC RBC Hgb Hct MCV MCH MCHC RDW Plt Count MPV Neut % (Auto) Lymph % (Auto) Parmer % (Auto) Eos % (Auto) Baso % (Auto) Neut # Lymph # Parmer # Eos # Baso # pCO2 pO2 HCO3 ABG pH ABG Total CO2 ABG O2 Saturation ABG O2 Content ABG Base Excess ABG Hemoglobin ABG Carboxyhemoglobin POC ABG HHb (Measured) ABG Methemoglobin ABG O2 Capacity August Test A-a O2 Difference Hgb O2 Saturation Vent Mode FiO2 Blood Gas Comments Crit Value Called To Crit Value Called By Crit Value Read Back Blood Gas Notified Time Sodium Potassium Chloride Carbon Dioxide Anion Gap BUN Creatinine Est GFR ( Amer) Est GFR (Non-Af Amer) POC Glucose (mg/dL) 208 H 238 H Random Glucose Calcium Total Bilirubin AST ALT Alkaline Phosphatase Troponin I Total Protein Albumin Globulin Albumin/Globulin Ratio Urine Color Sarah Urine Clarity Turbid Urine pH 6.0 Ur Specific Drake 1.012 Urine Protein 100 Urine Glucose (UA) Neg Urine Ketones Negative Urine Blood Small Urine Nitrate Positive H Urine Bilirubin Negative Urine Urobilinogen 0.2-1.0 Ur Leukocyte Esterase Large Urine RBC (Auto) 36 H Urine WBC Clumps (Auto) Many H Urine Microscopic WBC 1820 H Ur Renal Epithelial Cell 1 Urine Bacteria Occ H Urine Creatinine Urine Microalbumin Microalb/Creat Ratio 10/14/17 10/14/17 10/14/17 11:34 15:56 20:05 WBC RBC Hgb Hct MCV MCH MCHC RDW Plt Count MPV Neut % (Auto) Lymph % (Auto) Parmer % (Auto) Eos % (Auto) Baso % (Auto) Neut # Lymph # Parmer # Eos # Baso # pCO2 pO2 HCO3 ABG pH ABG Total CO2 ABG O2 Saturation ABG O2 Content ABG Base Excess ABG Hemoglobin ABG Carboxyhemoglobin POC ABG HHb (Measured) ABG Methemoglobin ABG O2 Capacity August Test A-a O2 Difference Hgb O2 Saturation Vent Mode FiO2 Blood Gas Comments Crit Value Called To Crit Value Called By Crit Value Read Back Blood Gas Notified Time Sodium Potassium Chloride Carbon Dioxide Anion Gap BUN Creatinine Est GFR ( Amer) Est GFR (Non-Af Amer) POC Glucose (mg/dL) 384 H 400 H* Random Glucose Calcium Total Bilirubin AST ALT Alkaline Phosphatase Troponin I Total Protein Albumin Globulin Albumin/Globulin Ratio Urine Color Urine Clarity Urine pH Ur Specific Drake Urine Protein Urine Glucose (UA) Urine Ketones Urine Blood Urine Nitrate Urine Bilirubin Urine Urobilinogen Ur Leukocyte Esterase Urine RBC (Auto) Urine WBC Clumps (Auto) Urine Microscopic WBC Ur Renal Epithelial Cell Urine Bacteria Urine Creatinine 56 Urine Microalbumin 87.7 Microalb/Creat Ratio 1561 H 10/14/17 10/15/17 10/15/17 22:36 05:19 05:19 WBC 4.6 L RBC 3.01 L Hgb 9.1 L Hct 28.0 L MCV 93.1 MCH 30.2 MCHC 32.5 L RDW 14.0 Plt Count 137 MPV Neut % (Auto) Lymph % (Auto) Parmer % (Auto) Eos % (Auto) Baso % (Auto) Neut # Lymph # Parmer # Eos # Baso # pCO2 pO2 HCO3 ABG pH ABG Total CO2 ABG O2 Saturation ABG O2 Content ABG Base Excess ABG Hemoglobin ABG Carboxyhemoglobin POC ABG HHb (Measured) ABG Methemoglobin ABG O2 Capacity August Test A-a O2 Difference Hgb O2 Saturation Vent Mode FiO2 Blood Gas Comments Crit Value Called To Crit Value Called By Crit Value Read Back Blood Gas Notified Time Sodium 139 Potassium 4.7 Chloride 98 Carbon Dioxide 33 H Anion Gap 13 BUN 44 H Creatinine 2.0 H Est GFR ( Amer) 29 Est GFR (Non-Af Amer) 24 POC Glucose (mg/dL) 374 H Random Glucose 344 H Calcium 8.4 Total Bilirubin AST ALT Alkaline Phosphatase Troponin I Total Protein Albumin Globulin Albumin/Globulin Ratio Urine Color Urine Clarity Urine pH Ur Specific Drake Urine Protein Urine Glucose (UA) Urine Ketones Urine Blood Urine Nitrate Urine Bilirubin Urine Urobilinogen Ur Leukocyte Esterase Urine RBC (Auto) Urine WBC Clumps (Auto) Urine Microscopic WBC Ur Renal Epithelial Cell Urine Bacteria Urine Creatinine Urine Microalbumin Microalb/Creat Ratio 10/15/17 10/15/17 10/15/17 05:58 08:57 11:51 WBC RBC Hgb Hct MCV MCH MCHC RDW Plt Count MPV Neut % (Auto) Lymph % (Auto) Parmer % (Auto) Eos % (Auto) Baso % (Auto) Neut # Lymph # Parmer # Eos # Baso # pCO2 58 H pO2 55 L HCO3 28.3 H ABG pH 7.34 L ABG Total CO2 33.1 H ABG O2 Saturation 91.7 L ABG O2 Content 12.4 L ABG Base Excess 4.5 H ABG Hemoglobin 9.8 L ABG Carboxyhemoglobin 0.8 POC ABG HHb (Measured) 8.1 H ABG Methemoglobin 1.0 ABG O2 Capacity 13.5 L August Test Yes A-a O2 Difference 108.0 Hgb O2 Saturation 90.0 L Vent Mode FiO2 33.0 Blood Gas Comments 3l/m nc,rt radial Crit Value Called To Crit Value Called By Crit Value Read Back N Blood Gas Notified Time Sodium Potassium Chloride Carbon Dioxide Anion Gap BUN Creatinine Est GFR ( Amer) Est GFR (Non-Af Amer) POC Glucose (mg/dL) 328 H 271 H Random Glucose Calcium Total Bilirubin AST ALT Alkaline Phosphatase Troponin I Total Protein Albumin Globulin Albumin/Globulin Ratio Urine Color Urine Clarity Urine pH Ur Specific Drake Urine Protein Urine Glucose (UA) Urine Ketones Urine Blood Urine Nitrate Urine Bilirubin Urine Urobilinogen Ur Leukocyte Esterase Urine RBC (Auto) Urine WBC Clumps (Auto) Urine Microscopic WBC Ur Renal Epithelial Cell Urine Bacteria Urine Creatinine Urine Microalbumin Microalb/Creat Ratio 10/15/17 16:02 WBC RBC Hgb Hct MCV MCH MCHC RDW Plt Count MPV Neut % (Auto) Lymph % (Auto) Parmer % (Auto) Eos % (Auto) Baso % (Auto) Neut # Lymph # Parmer # Eos # Baso # pCO2 pO2 HCO3 ABG pH ABG Total CO2 ABG O2 Saturation ABG O2 Content ABG Base Excess ABG Hemoglobin ABG Carboxyhemoglobin POC ABG HHb (Measured) ABG Methemoglobin ABG O2 Capacity August Test A-a O2 Difference Hgb O2 Saturation Vent Mode FiO2 Blood Gas Comments Crit Value Called To Crit Value Called By Crit Value Read Back Blood Gas Notified Time Sodium Potassium Chloride Carbon Dioxide Anion Gap BUN Creatinine Est GFR ( Amer) Est GFR (Non-Af Amer) POC Glucose (mg/dL) 297 H Random Glucose Calcium Total Bilirubin AST ALT Alkaline Phosphatase Troponin I Total Protein Albumin Globulin Albumin/Globulin Ratio Urine Color Urine Clarity Urine pH Ur Specific Drake Urine Protein Urine Glucose (UA) Urine Ketones Urine Blood Urine Nitrate Urine Bilirubin Urine Urobilinogen Ur Leukocyte Esterase Urine RBC (Auto) Urine WBC Clumps (Auto) Urine Microscopic WBC Ur Renal Epithelial Cell Urine Bacteria Urine Creatinine Urine Microalbumin Microalb/Creat Ratio Microbiology 10/10/17 17:30 Blood-Venous Blood Culture - Final NO GROWTH AFTER 5 DAYS 10/10/17 17:30 Blood-Venous Gram Stain - Final TEST NOT PERFORMED 10/14/17 11:34 Urine,Catheterized Urine Culture - Preliminary Gram Negative Luis 10/10/17 18:39 Urine,Catheterized Urine Culture - Final Klebsiella Pneumoniae Ssp Pneu Assessment and Plan (1) UTI (urinary tract infection) Status: Acute (2) Chronic urinary tract infection Status: Acute (3) Renal failure (ARF), acute on chronic Status: Acute (4) COPD (chronic obstructive pulmonary disease) Status: Chronic - Assessment and Plan (Free Text) Assessment: A/P- 77 year old female with multiple medical conditions including COPD, CAD , chronic recurrent ESBL UTI's who was admitted for chest pain adn weakness and was found to have + UA and ESBL klebsiella Urine culture. afebrile normal wbc count chect Ct report- consolidations on b/l bases left greater than right and mild pleural effusion. acute on chronic renal insufficiency. UA- pos Urine cx- > 100,000 Klebsiella ESBL 10/10/2017 repeat urine cx- <10,000 GNR on 10/14/2017 Blood cx- negative x 1 plan- advise to continue with IV meropenem for ESBL UTI day #3 ( renal dose). await Id of the repeat urine cx. monitor aspiration precautions. no objection to continuing with IV clindamycin which was initiated by PMD for asp penumonitis. day #2 all above d/w patient's daughter at length and all her questions were answered.
[2017-10-16] MEDS: Clindamycin 600mg/50ml NS 600 MG/50 ML BAG IVPB SCH ×3 (01:00→16:26)
[2017-10-16] MEDS: Meropenem 500 MG in Sodium Chloride 0.9% 100 ML IVPB SCH ×3 (01:01→16:25)
[2017-10-16] MEDS: Levothyroxine 100 MCG TAB PO SCH (07:01)
[2017-10-16] MEDS: Albuterol-Ipratrop 3 mg / 0.5 (3 ml) UD INH SCH ×4 (07:21→19:50)
[2017-10-16] MEDS: Acetylcysteine 10% 4 ML IH SCH ×2 (07:21→19:50)
[2017-10-16 08:24] LABS: CALCIUM 8.7 mg/dL (8.4-10.2)
[2017-10-16] MEDS: Enoxaparin 30 mg Syringe SC SCH (09:20)
[2017-10-16] MEDS: Patient's Own Med (Ranolazine [Ranexa] 1,000 MG) PO SCH ×2 (09:20→16:28)
[2017-10-16] MEDS: Insulin Regular 100 units/ml SC SCH ×4 (09:21→22:05)
[2017-10-16] MEDS: Insulin Lispro Mix 75/25 100 units/ml (HumaLog) 10ml SC SCH ×2 (09:21→16:26)
[2017-10-16] MEDS: Bacitracin OINT 15GM TOP SCH ×2 (09:23→16:25)
[2017-10-16] MEDS: Sodium Chloride 0.9% 1,000 ML IV SCH (16:29)
--- NOTE | 2017-10-16 18:22 | CP.PCM.PN ---
Subjective - Date & Time of Evaluation Date of Evaluation: 10/16/17 Time of Evaluation: 17:00 - Subjective Subjective: F/U PNA/UTI Pt less confused today, more alert, recognized family, suprapubic pain. Objective - Vital Signs/Intake and Output Vital Signs (last 24 hours): Temp Pulse Resp BP Pulse Ox 99.1 F 75 20 174/75 H 95 10/16/17 16:12 10/16/17 17:07 10/16/17 16:12 10/16/17 17:07 10/16/17 16:12 Intake and Output: 10/16/17 10/16/17 06:59 18:59 Intake Total 1200 Balance 1200 - Medications Medications: Current Medications Acetaminophen/Codeine Phosphate (Tylenol/Codeine 300 Mg/30 Mg) 1 tab PO Q8H PRN PRN Reason: Pain, severe (8-10) Acetylcysteine (Mucomyst 10% 4ml) 2 ml IH RBID [facility] Last Admin: 10/16/17 07:21 Dose: 2 ml Albuterol/Ipratropium (Duoneb 3 Mg/0.5 Mg (3 Ml) Ud) 3 ml INH RQID [facility] Last Admin: 10/16/17 15:51 Dose: 3 ml Alprazolam (Xanax) 0.25 mg PO HS PRN PRN Reason: Insomnia Stop: 10/17/17 21:33 Last Admin: 10/16/17 04:54 Dose: 0.25 mg Amlodipine Besylate (Norvasc) 5 mg PO DAILY [facility] Last Admin: 10/16/17 17:07 Dose: 5 mg Artificial Tears (Artificial Tears) 2 drop OU Q4 PRN PRN Reason: Dry eyes Last Admin: 10/15/17 13:30 Dose: 2 drop Aspirin (Ecotrin) 81 mg PO DAILY [facility] Last Admin: 10/16/17 09:23 Dose: 81 mg Atorvastatin Calcium (Lipitor) 40 mg PO HS [facility] Last Admin: 10/15/17 21:58 Dose: 40 mg Bacitracin (Bacitracin Oint) 1 applic TOP BID [facility] Last Admin: 10/16/17 16:25 Dose: 1 applic Carvedilol (Coreg) 3.125 mg PO DAILY [facility] Last Admin: 10/16/17 09:22 Dose: 3.125 mg Clotrimazole (Lotrimin 1% Cream) 1 applic TOP BID [facility] Dextrose (Dextrose 50% Inj) 0 ml IV STAT PRN; Protocol PRN Reason: Hypoglycemia Protocol Dextrose (Glutose 15) 0 gm PO ONCE PRN; Protocol PRN Reason: Hypoglycemia Protocol Docusate Sodium (Colace) 100 mg PO DAILY PRN PRN Reason: Constipation Last Admin: 10/13/17 09:55 Dose: 100 mg Enoxaparin Sodium (Lovenox) 30 mg SC DAILY [facility] PRN Reason: Protocol Last Admin: 10/16/17 09:20 Dose: 30 mg Furosemide (Lasix) 20 mg PO Q48H [facility] Last Admin: 10/12/17 23:24 Dose: 20 mg Gabapentin (Neurontin) 100 mg PO BID [facility] Last Admin: 10/13/17 09:57 Dose: Not Given Glucagon (Glucagen Diagnostic Kit) 0 mg IM STAT PRN; Protocol PRN Reason: Hypoglycemia Protocol Home Med (Ranolazine [Ranexa]) 1,000 mg PO BID [facility] Last Admin: 10/16/17 16:28 Dose: 1,000 mg Meropenem 500 mg/ Sodium (Chloride) 100 mls @ 100 mls/hr IVPB Q8 [facility] PRN Reason: Protocol Last Admin: 10/16/17 16:25 Dose: 100 mls/hr Clindamycin Phosphate (Cleocin In Normal Saline) 600 mg in 50 mls @ 50 mls/hr IVPB Q8 [facility] PRN Reason: Protocol Last Admin: 10/16/17 16:26 Dose: 50 mls/hr Sodium Chloride (Sodium Chloride 0.9%) 1,000 mls @ 75 mls/hr IV .[id number] [facility] Last Admin: 10/16/17 16:29 Dose: 75 mls/hr Insulin Human Regular (Humulin R) 0 units SC ACHS [facility] PRN Reason: Protocol Last Admin: 10/16/17 16:27 Dose: 4 unit Insulin Lispro Protam/Lispro Human (Humalog Mix 75/25) 15 units SC BID [facility] Last Admin: 10/16/17 16:26 Dose: 15 units Lactulose (Enulose) 20 gm PO BID PRN PRN Reason: Constipation Levothyroxine Sodium (Synthroid) 100 mcg PO DAILY@0630 [facility] Last Admin: 10/16/17 07:01 Dose: 100 mcg Nitroglycerin (Nitrostat Sl Tab) 0.4 mg SL Q5M PRN PRN Reason: Chest Pain Last Admin: 10/16/17 16:39 Dose: 0.4 mg Ondansetron HCl (Zofran Inj) 4 mg IVP Q4 PRN PRN Reason: Nausea/Vomiting Last Admin: 10/14/17 20:53 Dose: 4 mg - Labs Labs: 10/15/17 05:19 10/16/17 06:42 - Constitutional Appears: Chronically Ill - Head Exam Head Exam: NORMAL INSPECTION - Eye Exam Eye Exam: PERRL (R eye, L eye blind.) - ENT Exam Additional comments: Hard of hearing R - Neck Exam Neck Exam: Normal Inspection - Respiratory Exam Respiratory Exam: Decreased Breath Sounds (at bases), Rhonchi (b/l scattered) - Cardiovascular Exam Cardiovascular Exam: REGULAR RHYTHM, Murmur (systolic) - GI/Abdominal Exam GI & Abdominal Exam: Soft, Normal Bowel Sounds. absent: Guarding, Rebound - Extremities Exam Additional comments: L TMA - Back Exam Back Exam: tenderness (mild) - Neurological Exam Neurological Exam: Awake Additional comments: Forgetful, confused, follows simple commands, generalized weakness. - Psychiatric Exam Psychiatric exam: Anxious - Skin Skin Exam: Warm Assessment and Plan (1) Aspiration pneumonia Status: Acute (2) Chest pain, atypical Status: Acute (3) UTI (urinary tract infection) Status: Acute (4) COPD (chronic obstructive pulmonary disease) Status: Chronic (5) Diabetes mellitus Status: Chronic (6) CHF (congestive heart failure) Status: Chronic (7) Hx of CABG Status: Chronic (8) Hypercholesterolemia Status: Chronic (9) Hypothyroidism Status: Chronic (10) Osteoarthritis Status: Chronic - Assessment and Plan (Free Text) Plan: Continue Clinda, Duoneb, Merren and rest of Tx.
[2017-10-17] MEDS: Sodium Chloride 0.9% 1,000 ML IV SCH ×3 (00:27→21:25)
[2017-10-17] MEDS: Clindamycin 600mg/50ml NS 600 MG/50 ML BAG IVPB SCH ×3 (00:34→16:22)
[2017-10-17] MEDS: Meropenem 500 MG in Sodium Chloride 0.9% 100 ML IVPB SCH ×3 (00:35→16:22)
[2017-10-17] MEDS: Levothyroxine 100 MCG TAB PO SCH (05:59)
[2017-10-17] MEDS: Acetylcysteine 10% 4 ML IH SCH ×2 (07:27→19:07)
[2017-10-17] MEDS: Albuterol-Ipratrop 3 mg / 0.5 (3 ml) UD INH SCH ×4 (07:27→19:07)
[2017-10-17] MEDS: Enoxaparin 30 mg Syringe SC SCH (09:03)
[2017-10-17] MEDS: Patient's Own Med (Ranolazine [Ranexa] 1,000 MG) PO SCH ×2 (09:04→16:21)
[2017-10-17] MEDS: Bacitracin OINT 15GM TOP SCH ×2 (09:05→16:22)
[2017-10-17] MEDS: Insulin Lispro Mix 75/25 100 units/ml (HumaLog) 10ml SC SCH ×2 (09:06→17:23)
[2017-10-17] MEDS: Insulin Regular 100 units/ml SC SCH ×4 (09:06→22:17)
[2017-10-17 10:54] LABS: BASO % 0.7 % (0.0-2.0); EOS # 0.4 K/uL (0.0-0.7); HEMOGLOBIN 9.4 g/dL (12.0-16.0); LYMPH # 1.3 K/uL (1.0-4.3); LYMPH % 22.3 % (20.0-40.0); MEAN CELL VOLUME 91.7 fl (81.0-99.0); MEAN CORPUSCULAR HGB CONC 32.7 g/dL (33.0-37.0); MEAN PLATELET VOLUME 8.6 fl (7.2-11.7); MONO # 0.7 K/uL (0.0-0.8); MONO % 11.9 % (0.0-10.0); NEUT # 3.5 K/uL (1.8-7.0); NEUT % 58.1 % (50.0-75.0); RBC 3.13 Mil/uL (3.80-5.20); WHITE BLOOD COUNT 5.9 K/uL (4.8-10.8)
--- NOTE | 2017-10-17 15:28 | CP.PCM.PN ---
Subjective - Date & Time of Evaluation Date of Evaluation: 10/17/17 Time of Evaluation: 10:30 - Subjective Subjective: F/U PNA/UTI Pt awake, confused at times, c/o of suprapubic pain. Objective - Vital Signs/Intake and Output Vital Signs (last 24 hours): Temp Pulse Resp BP Pulse Ox 98.2 F 69 18 158/67 H 99 10/17/17 11:55 10/17/17 11:55 10/17/17 11:55 10/17/17 11:55 10/17/17 11:55 - Medications Medications: Current Medications Acetaminophen/Codeine Phosphate (Tylenol/Codeine 300 Mg/30 Mg) 1 tab PO Q8H PRN PRN Reason: Pain, severe (8-10) Last Admin: 10/16/17 20:18 Dose: 1 tab Acetylcysteine (Mucomyst 10% 4ml) 2 ml IH RBID [facility] Last Admin: 10/17/17 07:27 Dose: 2 ml Albuterol/Ipratropium (Duoneb 3 Mg/0.5 Mg (3 Ml) Ud) 3 ml INH RQID [facility] Last Admin: 10/17/17 15:25 Dose: 3 ml Alprazolam (Xanax) 0.25 mg PO HS PRN PRN Reason: Insomnia Stop: 10/17/17 21:33 Last Admin: 10/17/17 01:38 Dose: 0.25 mg Amlodipine Besylate (Norvasc) 5 mg PO DAILY [facility] Last Admin: 10/17/17 09:03 Dose: 5 mg Artificial Tears (Artificial Tears) 2 drop OU Q4 PRN PRN Reason: Dry eyes Last Admin: 10/15/17 13:30 Dose: 2 drop Aspirin (Ecotrin) 81 mg PO DAILY [facility] Last Admin: 10/17/17 09:03 Dose: 81 mg Atorvastatin Calcium (Lipitor) 40 mg PO HS [facility] Last Admin: 10/16/17 22:05 Dose: 40 mg Bacitracin (Bacitracin Oint) 1 applic TOP BID [facility] Last Admin: 10/17/17 09:05 Dose: 1 applic Carvedilol (Coreg) 3.125 mg PO DAILY [facility] Last Admin: 10/17/17 09:03 Dose: 3.125 mg Clotrimazole (Lotrimin 1% Cream) 1 applic TOP BID [facility] Last Admin: 10/17/17 09:07 Dose: 1 applic Dextrose (Dextrose 50% Inj) 0 ml IV STAT PRN; Protocol PRN Reason: Hypoglycemia Protocol Dextrose (Glutose 15) 0 gm PO ONCE PRN; Protocol PRN Reason: Hypoglycemia Protocol Docusate Sodium (Colace) 100 mg PO DAILY PRN PRN Reason: Constipation Last Admin: 10/13/17 09:55 Dose: 100 mg Enoxaparin Sodium (Lovenox) 30 mg SC DAILY [facility] PRN Reason: Protocol Last Admin: 10/17/17 09:03 Dose: 30 mg Furosemide (Lasix) 20 mg PO Q48H [facility] Last Admin: 10/12/17 23:24 Dose: 20 mg Gabapentin (Neurontin) 100 mg PO BID [facility] Last Admin: 10/13/17 09:57 Dose: Not Given Glucagon (Glucagen Diagnostic Kit) 0 mg IM STAT PRN; Protocol PRN Reason: Hypoglycemia Protocol Home Med (Ranolazine [Ranexa]) 1,000 mg PO BID [facility] Last Admin: 10/17/17 09:04 Dose: 1,000 mg Meropenem 500 mg/ Sodium (Chloride) 100 mls @ 100 mls/hr IVPB Q8 [facility] PRN Reason: Protocol Last Admin: 10/17/17 09:04 Dose: 100 mls/hr Clindamycin Phosphate (Cleocin In Normal Saline) 600 mg in 50 mls @ 50 mls/hr IVPB Q8 [facility] PRN Reason: Protocol Last Admin: 10/17/17 09:05 Dose: 50 mls/hr Sodium Chloride (Sodium Chloride 0.9%) 1,000 mls @ 50 mls/hr IV .Q20H [facility] Last Admin: 10/17/17 01:39 Dose: 50 mls/hr Insulin Human Regular (Humulin R) 0 units SC ACHS [facility] PRN Reason: Protocol Last Admin: 10/17/17 12:31 Dose: Not Given Insulin Lispro Protam/Lispro Human (Humalog Mix 75/25) 15 units SC BID [facility] Last Admin: 10/17/17 09:06 Dose: Not Given Lactulose (Enulose) 20 gm PO BID PRN PRN Reason: Constipation Last Admin: 10/17/17 12:45 Dose: 20 gm Levothyroxine Sodium (Synthroid) 100 mcg PO DAILY@0630 [facility] Last Admin: 10/17/17 05:59 Dose: 100 mcg Nitroglycerin (Nitrostat Sl Tab) 0.4 mg SL Q5M PRN PRN Reason: Chest Pain Last Admin: 10/16/17 16:39 Dose: 0.4 mg Ondansetron HCl (Zofran Inj) 4 mg IVP Q4 PRN PRN Reason: Nausea/Vomiting Last Admin: 10/14/17 20:53 Dose: 4 mg - Labs Labs: 10/17/17 10:43 10/17/17 10:43 - Constitutional Appears: Chronically Ill - Head Exam Head Exam: NORMAL INSPECTION - Eye Exam Eye Exam: PERRL (R eye, L eye blind.) - ENT Exam Additional comments: Hard of hearing R - Respiratory Exam Respiratory Exam: Decreased Breath Sounds (at bases), Rhonchi (b/l scattered) - Cardiovascular Exam Cardiovascular Exam: REGULAR RHYTHM, Murmur (systolic) - GI/Abdominal Exam GI & Abdominal Exam: Soft, Normal Bowel Sounds. absent: Guarding, Rebound - Extremities Exam Additional comments: L TMA - Back Exam Back Exam: tenderness (mild) - Neurological Exam Neurological Exam: Awake Additional comments: Forgetful, confused, follows simple commands, generalized weakness. - Psychiatric Exam Psychiatric exam: Anxious - Skin Skin Exam: Warm Assessment and Plan (1) Aspiration pneumonia Status: Acute (2) Chest pain, atypical Status: Acute (3) UTI (urinary tract infection) Status: Acute (4) COPD (chronic obstructive pulmonary disease) Status: Chronic (5) Diabetes mellitus Status: Chronic (6) CHF (congestive heart failure) Status: Chronic (7) Hx of CABG Status: Chronic (8) Hypercholesterolemia Status: Chronic (9) Hypothyroidism Status: Chronic (10) Osteoarthritis Status: Chronic - Assessment and Plan (Free Text) Plan: Continue Clinda, Duoneb, Vanco and rest of Tx.
[2017-10-17] MEDS: Phenylephrine 0.25 % Supp PR SCH ×2 (21:25→21:37)
[2017-10-18] MEDS: Meropenem 500 MG in Sodium Chloride 0.9% 100 ML IVPB SCH ×3 (01:18→16:15)
[2017-10-18] MEDS: Clindamycin 600mg/50ml NS 600 MG/50 ML BAG IVPB SCH ×3 (01:19→16:17)
[2017-10-18] MEDS: Insulin Regular 100 units/ml SC SCH ×3 (06:47→17:53)
--- NOTE | 2017-10-18 07:15 | PQF GENQUE ---
This form is a permanent part of the medical record 10/18/17 Dr. Oliver Please clarify if the Aspiration Pneumonia was present on admission or not present on admission. Admitted with L sided chest pain, mild SOB and occasional dry cough. CXR on admission no acute infiltrates on 10/10/17. 10/13 FIELD OPERATIONS TECHNICIAN called for o2 saturation of 66%. PN 10/16 Aspiration Pneumonia. Clarification of your documentation is requested to better reflect the severity of illness and intensity of treatment of your patient. Indicators present [] Specify: [] [] Specify: [] [] Specify: [] [] Specify: [] Location in the medical record that reflects the above clinical findings: [] Treatment Provided: [] PHYSICIAN'S RESPONSE Based on your medical judgment of the clinical indicators outlined above please clarify the following: [] Practitioner response [] If unable to determine, please check the box, sign and date. Present On Admission (POA) Indicator: [] Present at the time of admission [] Not present at the time of admission [] Clinically Undetermined In responding to this query, please exercise your independent professional judgment. The fact that a question is asked does not imply that any particular answer is desired or expected. Thank you for your clarification on this documentation. If you have any questions please call:Ext [phone] * Thank you, Vilma Sanon RN [facility]
[2017-10-18] MEDS: Acetylcysteine 10% 4 ML IH SCH (07:35)
[2017-10-18] MEDS: Albuterol-Ipratrop 3 mg / 0.5 (3 ml) UD INH SCH ×3 (07:35→15:22)
[2017-10-18] MEDS: Phenylephrine 0.25 % Supp PR SCH ×2 (09:31→16:20)
[2017-10-18] MEDS: Patient's Own Med (Ranolazine [Ranexa] 1,000 MG) PO SCH ×2 (09:31→16:18)
[2017-10-18] MEDS: Bacitracin OINT 15GM TOP SCH ×2 (09:32→16:18)
[2017-10-18] MEDS: Enoxaparin 30 mg Syringe SC SCH (09:36)
[2017-10-18] MEDS: Insulin Lispro Mix 75/25 100 units/ml (HumaLog) 10ml SC SCH ×2 (09:37→17:54)
[2017-10-18] MEDS: Levothyroxine 100 MCG TAB PO SCH (09:47)
[2017-10-18 12:22] VITALS: O2SAT 100
--- NOTE | 2017-10-18 16:07 | CP.PCM.PN ---
Subjective - Date & Time of Evaluation Date of Evaluation: 10/18/17 Time of Evaluation: 10:30 - Subjective Subjective: F/U PNA/UTI Objective - Vital Signs/Intake and Output Vital Signs (last 24 hours): Temp Pulse Resp BP Pulse Ox 98.1 F 72 18 112/66 100 10/18/17 13:00 10/18/17 13:00 10/18/17 13:00 10/18/17 13:00 10/18/17 13:00 - Medications Medications: Current Medications Acetaminophen/Codeine Phosphate (Tylenol/Codeine 300 Mg/30 Mg) 1 tab PO Q8H PRN PRN Reason: Pain, severe (8-10) Last Admin: 10/16/17 20:18 Dose: 1 tab Acetylcysteine (Mucomyst 10% 4ml) 2 ml IH RBID [facility] Last Admin: 10/18/17 07:35 Dose: 2 ml Albuterol/Ipratropium (Duoneb 3 Mg/0.5 Mg (3 Ml) Ud) 3 ml INH RQID [facility] Last Admin: 10/18/17 15:22 Dose: 3 ml Alprazolam (Xanax) 0.25 mg PO HS PRN PRN Reason: Anxiety Stop: 10/24/17 22:17 Last Admin: 10/17/17 22:37 Dose: 0.25 mg Amlodipine Besylate (Norvasc) 5 mg PO DAILY [facility] Last Admin: 10/18/17 09:31 Dose: 5 mg Artificial Tears (Artificial Tears) 2 drop OU Q4 PRN PRN Reason: Dry eyes Last Admin: 10/15/17 13:30 Dose: 2 drop Aspirin (Ecotrin) 81 mg PO DAILY [facility] Last Admin: 10/18/17 09:53 Dose: 81 mg Atorvastatin Calcium (Lipitor) 40 mg PO HS [facility] Last Admin: 10/17/17 21:24 Dose: 40 mg Bacitracin (Bacitracin Oint) 1 applic TOP BID [facility] Last Admin: 10/18/17 09:32 Dose: 1 applic Carvedilol (Coreg) 3.125 mg PO DAILY [facility] Last Admin: 10/18/17 09:30 Dose: 3.125 mg Clotrimazole (Lotrimin 1% Cream) 1 applic TOP BID [facility] Last Admin: 10/18/17 09:37 Dose: 1 applic Dextrose (Dextrose 50% Inj) 0 ml IV STAT PRN; Protocol PRN Reason: Hypoglycemia Protocol Dextrose (Glutose 15) 0 gm PO ONCE PRN; Protocol PRN Reason: Hypoglycemia Protocol Docusate Sodium (Colace) 100 mg PO DAILY PRN PRN Reason: Constipation Last Admin: 10/13/17 09:55 Dose: 100 mg Furosemide (Lasix) 20 mg PO Q48H [facility] Last Admin: 10/12/17 23:24 Dose: 20 mg Gabapentin (Neurontin) 100 mg PO BID [facility] Last Admin: 10/13/17 09:57 Dose: Not Given Glucagon (Glucagen Diagnostic Kit) 0 mg IM STAT PRN; Protocol PRN Reason: Hypoglycemia Protocol Home Med (Ranolazine [Ranexa]) 1,000 mg PO BID [facility] Last Admin: 10/18/17 09:31 Dose: 1,000 mg Meropenem 500 mg/ Sodium (Chloride) 100 mls @ 100 mls/hr IVPB Q8 [facility] PRN Reason: Protocol Last Admin: 10/18/17 09:38 Dose: 100 mls/hr Clindamycin Phosphate (Cleocin In Normal Saline) 600 mg in 50 mls @ 50 mls/hr IVPB Q8 [facility] PRN Reason: Protocol Last Admin: 10/18/17 09:32 Dose: 50 mls/hr Sodium Chloride (Sodium Chloride 0.9%) 1,000 mls @ 50 mls/hr IV .Q20H [facility] Last Admin: 10/17/17 21:25 Dose: Not Given Insulin Human Regular (Humulin R) 0 units SC ACHS [facility] PRN Reason: Protocol Last Admin: 10/18/17 12:51 Dose: Not Given Insulin Lispro Protam/Lispro Human (Humalog Mix 75/25) 15 units SC BID [facility] Last Admin: 10/18/17 09:37 Dose: 15 units Lactulose (Enulose) 20 gm PO BID PRN PRN Reason: Constipation Last Admin: 10/17/17 12:45 Dose: 20 gm Levothyroxine Sodium (Synthroid) 100 mcg PO DAILY@0630 [facility] Last Admin: 10/18/17 09:47 Dose: 100 mcg Nitroglycerin (Nitrostat Sl Tab) 0.4 mg SL Q5M PRN PRN Reason: Chest Pain Last Admin: 10/16/17 16:39 Dose: 0.4 mg Ondansetron HCl (Zofran Inj) 4 mg IVP Q4 PRN PRN Reason: Nausea/Vomiting Last Admin: 10/14/17 20:53 Dose: 4 mg Phenylephrine HCl (Preparation H Suppositories) 1 supp PA BID [facility] Last Admin: 10/18/17 09:31 Dose: 1 supp - Labs Labs: 10/17/17 10:43 10/17/17 10:43 - Constitutional Appears: Chronically Ill - Head Exam Head Exam: NORMAL INSPECTION - Eye Exam Eye Exam: PERRL (R eye, L eye blidness) - ENT Exam Additional comments: Hard of hearing R - Neck Exam Neck Exam: Normal Inspection - Respiratory Exam Respiratory Exam: Decreased Breath Sounds (at bases), Rhonchi - Cardiovascular Exam Cardiovascular Exam: REGULAR RHYTHM, Murmur (systolic) - GI/Abdominal Exam GI & Abdominal Exam: Soft, Normal Bowel Sounds. absent: Guarding, Rebound - Extremities Exam Additional comments: TMA L - Back Exam Back Exam: tenderness (mild) - Neurological Exam Neurological Exam: Awake Additional comments: Forgetful, confused, follows simple commands, generalized weakness. - Psychiatric Exam Psychiatric exam: Anxious - Skin Skin Exam: Warm Assessment and Plan (1) Aspiration pneumonia Status: Acute (2) Chest pain, atypical Status: Acute (3) UTI (urinary tract infection) Status: Acute (4) COPD (chronic obstructive pulmonary disease) Status: Chronic (5) Diabetes mellitus Status: Chronic (6) CHF (congestive heart failure) Status: Chronic (7) Hx of CABG Status: Chronic (8) Hypercholesterolemia Status: Chronic (9) Hypothyroidism Status: Chronic (10) Osteoarthritis Status: Chronic
[2017-10-18 16:08] VITALS: PULSE 59; RESP 20; TEMP 98.4
[2017-10-18] MEDS ORDERED: Nystatin 100,000 Units/ml Oral Susp 5 ml UD PO SCH (17:00)
[2017-10-18 17:30] VITALS: BP 109/54
[2017-10-18] MEDS: Sodium Chloride 0.9% 1,000 ML IV SCH (18:04)
--- NOTE | 2017-10-18 22:29 | CP.PCM.DIS ---
Provider - Provider Date of Admission: 10/12/17 12:41 Attending physician: Sridhar Oliver MD Consults: ID and Wound Care. Time Spent in preparation of Discharge (in minutes): 35 Diagnosis - Discharge Diagnosis (1) Aspiration pneumonia Status: Acute (2) Chest pain, atypical Status: Acute Priority: High (3) UTI (urinary tract infection) Status: Acute Priority: High (4) COPD (chronic obstructive pulmonary disease) Status: Chronic Priority: Medium (5) Diabetes mellitus Status: Chronic Priority: Medium (6) CHF (congestive heart failure) Status: Chronic Priority: Medium (7) Hx of CABG Status: Chronic Priority: Medium (8) Hypercholesterolemia Status: Chronic Priority: Low (9) Hypothyroidism Status: Chronic Priority: Medium (10) Osteoarthritis Status: Chronic Priority: Medium Hospital Course - Lab Results Lab Results: Micro Results 10/14/17 18:12 Blood-Venous Blood Culture - Preliminary NO GROWTH AFTER 4 DAYS 10/14/17 18:02 Blood-Venous Blood Culture - Preliminary NO GROWTH AFTER 4 DAYS 10/14/17 11:34 Urine,Catheterized Urine Culture - Final Klebsiella Pneumoniae Ssp Pneu 10/10/17 17:30 Blood-Venous Blood Culture - Final NO GROWTH AFTER 5 DAYS 10/10/17 17:30 Blood-Venous Gram Stain - Final TEST NOT PERFORMED 10/10/17 18:39 Urine,Catheterized Urine Culture - Final Klebsiella Pneumoniae Ssp Pneu Most Recent Lab Values WBC 5.9 K/uL (4.8-10.8) 10/17/17 10:43 RBC 3.13 Mil/uL (3.80-5.20) L 10/17/17 10:43 Hgb 9.4 g/dL (12.0-16.0) L 10/17/17 10:43 Hct 28.7 % (34.0-47.0) L 10/17/17 10:43 MCV 91.7 fl (81.0-99.0) 10/17/17 10:43 MCH 30.0 pg (27.0-31.0) 10/17/17 10:43 MCHC 32.7 g/dL (33.0-37.0) L 10/17/17 10:43 RDW 14.0 % (11.5-14.5) 10/17/17 10:43 Plt Count 176 K/uL (130-400) 10/17/17 10:43 MPV 8.6 fl (7.2-11.7) 10/17/17 10:43 Neut % (Auto) 58.1 % (50.0-75.0) 10/17/17 10:43 Lymph % (Auto) 22.3 % (20.0-40.0) 10/17/17 10:43 Mcdonald % (Auto) 11.9 % (0.0-10.0) H 10/17/17 10:43 Eos % (Auto) 7.0 % (0.0-4.0) H 10/17/17 10:43 Baso % (Auto) 0.7 % (0.0-2.0) 10/17/17 10:43 Neut # 3.5 K/uL (1.8-7.0) 10/17/17 10:43 Lymph # 1.3 K/uL (1.0-4.3) 10/17/17 10:43 Mcdonald # 0.7 K/uL (0.0-0.8) 10/17/17 10:43 Eos # 0.4 K/uL (0.0-0.7) 10/17/17 10:43 Baso # 0.0 K/uL (0.0-0.2) 10/17/17 10:43 pCO2 58 mm/Hg (35-45) H 10/15/17 08:57 pO2 55 mm/Hg (80-100) L 10/15/17 08:57 HCO3 28.3 mmol/L (21-28) H 10/15/17 08:57 ABG pH 7.34 (7.35-7.45) L 10/15/17 08:57 ABG Total CO2 33.1 mmol/L (22-28) H 10/15/17 08:57 ABG O2 Saturation 91.7 % (95-98) L 10/15/17 08:57 ABG O2 Content 12.4 ML/dL (15-23) L 10/15/17 08:57 ABG Base Excess 4.5 mmol/L (-2.0-3.0) H 10/15/17 08:57 ABG Hemoglobin 9.8 g/dL (11.7-17.4) L 10/15/17 08:57 ABG Carboxyhemoglobin 0.8 % (0.5-1.5) 10/15/17 08:57 POC ABG HHb (Measured) 8.1 % (0.0-5.0) H 10/15/17 08:57 ABG Methemoglobin 1.0 % (0.0-3.0) 10/15/17 08:57 ABG O2 Capacity 13.5 mL/dL (16-24) L 10/15/17 08:57 August Test Yes 10/15/17 08:57 VBG pH 7.37 (7.32-7.43) 10/10/17 17:33 VBG pCO2 66 mmHg (40-60) H* 10/10/17 17:33 VBG HCO3 31.5 mmol/L 10/10/17 17:33 VBG Total CO2 40.2 mmol/L (22-28) H 10/10/17 17:33 VBG O2 Sat (Calc) 57.8 % (40-65) 10/10/17 17:33 VBG Base Excess 10.2 mmol/L (0.0-2.0) H 10/10/17 17:33 VBG Potassium 4.7 mmol/L (3.6-5.2) 10/10/17 17:33 A-a O2 Difference 108.0 mm/Hg 10/15/17 08:57 Hgb O2 Saturation 90.0 % (95.0-98.0) L 10/15/17 08:57 Sodium 138.0 mmol/L (132-148) 10/10/17 17:33 Chloride 101.0 mmol/L (98-107) 10/10/17 17:33 Glucose 191 mg/dL (65-105) H 10/10/17 17:33 Lactate 1.2 mmol/L (0.7-2.1) 10/10/17 17:33 Vent Mode 100% nrb 10/13/17 20:50 FiO2 33.0 % 10/15/17 08:57 Blood Gas Comments 3l/m nc,rt radial 10/15/17 08:57 Crit Value Called To neeta Coffman md 10/13/17 20:04 Crit Value Called By Paul garcia 10/13/17 20:04 Crit Value Read Back N 10/15/17 08:57 Blood Gas Notified Time 200710/13/17 20:04 Sodium 139 mmol/l (132-148) 10/17/17 10:43 Potassium 4.7 MMOL/L (3.6-5.0) 10/17/17 10:43 Chloride 104 mmol/L (98-107) 10/17/17 10:43 Carbon Dioxide 27 mmol/L (22-30) 10/17/17 10:43 Anion Gap 13 (10-20) 10/17/17 10:43 BUN 24 mg/dl (7-17) H 10/17/17 10:43 Creatinine 1.2 mg/dl (0.7-1.2) 10/17/17 10:43 Est GFR ( Amer) 52 10/17/17 10:43 Est GFR (Non-Af Amer) 43 10/17/17 10:43 POC Glucose (mg/dL) 94 mg/dL (65-110) 10/18/17 16:42 Random Glucose 160 mg/dL (65-105) H 10/17/17 10:43 Calcium 8.0 mg/dL (8.4-10.2) L 10/17/17 10:43 Total Bilirubin 0.5 mg/dl (0.2-1.3) 10/13/17 20:15 AST 29 U/L (14-36) 10/13/17 20:15 ALT 31 U/L (9-52) 10/13/17 20:15 Alkaline Phosphatase 72 U/L (38-126) 10/13/17 20:15 Troponin I < 0.0120 ng/mL (0.00-0.120) 10/13/17 20:15 Total Protein 6.7 G/DL (6.3-8.2) 10/13/17 20:15 Albumin 3.2 g/dL (3.5-5.0) L 10/13/17 20:15 Globulin 3.5 gm/dL (2.2-3.9) 10/13/17 20:15 Albumin/Globulin Ratio 0.9 (1.0-2.1) L 10/13/17 20:15 Triglycerides 103 mg/DL (0-149) D 10/11/17 04:20 Cholesterol 99 mg/dL (0-199) 10/11/17 04:20 LDL Cholesterol Direct < 30 mg/dL (0-129) 10/11/17 04:20 HDL Cholesterol 36 MG/DL (30-70) 10/11/17 04:20 Thyroxine (T4) 8.85 ug/dl (5.5-11.0) 10/11/17 04:20 TSH 3rd Generation 4.59 mIU/ML (0.46-4.68) 10/11/17 04:20 Venous Blood Potassium 4.7 mmol/L (3.6-5.2) 10/10/17 17:33 Urine Color Sarah (YELLOW) 10/14/17 11:34 Urine Clarity Turbid (Clear) 10/14/17 11:34 Urine pH 6.0 (5.0-8.0) 10/14/17 11:34 Ur Specific [place] 1.012 (1.003-1.030) 10/14/17 11:34 Urine Protein 100 mg/dL (NEGATIVE) 10/14/17 11:34 Urine Glucose (UA) Neg mg/dL (Normal) 10/14/17 11:34 Urine Ketones Negative mg/dL (NEGATIVE) 10/14/17 11:34 Urine Blood Small (NEGATIVE) 10/14/17 11:34 Urine Nitrate Positive (NEGATIVE) H 10/14/17 11:34 Urine Bilirubin Negative (NEGATIVE) 10/14/17 11:34 Urine Urobilinogen 0.2-1.0 mg/dL (0.2-1.0) 10/14/17 11:34 Ur Leukocyte Esterase [place]/uL (Negative) 10/14/17 11:34 Urine RBC (Auto) 36 /hpf (0-3) H 10/14/17 11:34 Urine WBC Clumps (Auto) Many /hpf (NONE) H 10/14/17 11:34 Urine Microscopic WBC 1820 /hpf (0-5) H 10/14/17 11:34 Ur Renal Epithelial Cell 1 /hpf (0-3) 10/14/17 11:34 Urine Bacteria Occ (<OCC) H 10/14/17 11:34 Urine Creatinine 56 mg/dL (20-320) 10/14/17 11:34 Urine Microalbumin 87.7 mg/dL 10/14/17 11:34 Microalb/Creat Ratio 1561 (<30) H 01/18/18 11:34 - Hospital Course Hospital Course: dictated [id number] - Date & Time of H&P Date of H&P: 10/11/17 Time of H&P: 11:20 Discharge Exam - Head Exam Head Exam: NORMAL INSPECTION Discharge Plan - Follow Up Plan Condition: FAIR Disposition: TRANSF TO SNF Instructions: Urinary Tract Infection in Women (DC), Urinary Tract Infection in Men (DC), Dysuria (GEN) Additional Instructions: pt. cleared for discharge to TCU today by and cont. IV Abx/ PT cont. bipap at night f/u with and Referrals: Igor Wren MD [Staff Provider] - Sridhar Oliver MD [Family Provider] -
== END 2017-10-18 18:30 | DRG 569 ==
LOC: H.ER 17:13 → H.ERHOLD 17:54 → H.TEL 20:24 → OBSVTOIN 10-12 12:41
PROVIDERS: ADMIT Internal Medicine Pulmonary Disease; ATTEND Internal Medicine Pulmonary Disease
DX: N39.0 Urinary tract infection, site not specified (principal); J69.0 Pneumonitis due to inhalation of food and vomit; J96.20 Acute and chronic respiratory failure, unspecified whether with hypoxia or hypercapnia; N17.9 Acute kidney failure, unspecified; I50.32 Chronic diastolic (congestive) heart failure; E11.22 Type 2 diabetes mellitus with diabetic chronic kidney disease; R32 Unspecified urinary incontinence; E11.51 Type 2 diabetes mellitus with diabetic peripheral angiopathy without gangrene; N18.9 Chronic kidney disease, unspecified; F03.90 Unspecified dementia, unspecified severity, without behavioral disturbance, psychotic disturbance, mood disturbance, and anxiety; I13.0 Hypertensive heart and chronic kidney disease with heart failure and stage 1 through stage 4 chronic kidney disease, or unspecified chronic kidney disease; J44.9 Chronic obstructive pulmonary disease, unspecified; R07.89 Other chest pain; D64.9 Anemia, unspecified; Z16.12 Extended spectrum beta lactamase (ESBL) resistance; Z87.440 Personal history of urinary (tract) infections; Z90.49 Acquired absence of other specified parts of digestive tract; Z95.1 Presence of aortocoronary bypass graft; Z95.5 Presence of coronary angioplasty implant and graft; F32.9 Major depressive disorder, single episode, unspecified; F41.9 Anxiety disorder, unspecified; K29.70 Gastritis, unspecified, without bleeding; K59.00 Constipation, unspecified; E03.9 Hypothyroidism, unspecified; E78.00 Pure hypercholesterolemia, unspecified; H54.62 Unqualified visual loss, left eye, normal vision right eye; I25.10 Atherosclerotic heart disease of native coronary artery without angina pectoris; M19.90 Unspecified osteoarthritis, unspecified site; Z88.0 Allergy status to penicillin

== ENCOUNTER 2017-10-18 14:36 | Inpatient (IN) | payer MEDICAID ==
[2017-10-18 18:48] VITALS: BMI 32.4
[2017-10-18] MEDS ORDERED: Artificial Tears Opht Soln OU PRN (20:30)
[2017-10-18] MEDS: Insulin Regular 100 units/ml SC SCH (21:52)
[2017-10-18] MEDS: Nystatin 100,000 Units/ml Oral Susp 5 ml UD PO SCH (21:54)
[2017-10-18] MEDS ORDERED: Albuterol-Ipratrop 3 mg / 0.5 (3 ml) UD INH SCH (22:00)
[2017-10-19] MEDS: Albuterol-Ipratrop 3 mg / 0.5 (3 ml) UD INH SCH ×4 (01:07→19:31)
[2017-10-19] MEDS: Meropenem 500 MG in Sodium Chloride 0.9% 100 ML IVPB SCH ×3 (04:55→22:44)
[2017-10-19] MEDS: Levothyroxine 100 MCG TAB PO SCH (06:45)
[2017-10-19] MEDS: Insulin Regular 100 units/ml SC SCH ×4 (06:45→22:00)
[2017-10-19] MEDS: Acetylcysteine 10% 4 ML IH SCH ×2 (07:40→19:31)
[2017-10-19] MEDS: Enoxaparin 30 mg Syringe SC SCH (08:35)
[2017-10-19] MEDS: Nystatin 100,000 Units/ml Oral Susp 5 ml UD PO SCH ×4 (08:35→21:58)
[2017-10-19] MEDS: Insulin Lispro Mix 75/25 100 units/ml (HumaLog) 10ml SC SCH ×2 (08:37→17:08)
[2017-10-19] MEDS: Patient's Own Med (Ranolazine [Ranexa] 1,000 MG) PO SCH ×2 (08:39→17:11)
[2017-10-19] MEDS: Lactobacillus Acidophilus 500 MU Cap PO SCH ×2 (08:41→17:07)
[2017-10-19] MEDS: Bacitracin OINT 15GM TOP SCH ×2 (08:52→17:10)
[2017-10-19] MEDS: Phenylephrine 0.25 % Supp PR SCH ×2 (08:53→17:13)
[2017-10-19 13:08] LABS: HEMOGLOBIN 9.8 g/dL (12.0-16.0); MEAN CELL VOLUME 91.4 fl (81.0-99.0); MEAN CORPUSCULAR HEMOGLOBIN 30.2 pg (27.0-31.0); RBC 3.23 Mil/uL (3.80-5.20); WHITE BLOOD COUNT 7.4 K/uL (4.8-10.8)
[2017-10-19 13:26] LABS: INR 1.1 (0.9-1.2); PROTHROMBIN TIME 12.5 Seconds (9.8-13.1)
[2017-10-19 13:29] LABS: CALCIUM 8.8 mg/dL (8.4-10.2)
--- NOTE | 2017-10-19 19:46 | CP.PCM.HP ---
History of Present Illness - History of Present Illness History of Present Illness: CC: UTI, Generalized weakness. Pt transferred to TCU [facility] to continue antibiotic coverage for UTI and to have PT, OT due to mobility Impairment, weaknesses. Pt with prior admission to [facility] on 10/11/17 for CP that was resolved and UTI, Tx also for other chronic medical conditions likely generalized weakness with mobility impairment, COPD, DM, CHF, Hypercholesterolemia, Hypothyroidism. Present on Admission - Present on Admission Any Indicators Present on Admission: No Review of Systems - Constitutional Constitutional: Weakness (generalized) - EENT Eyes: Loss of Vision (L eye) Ears: Decreased Hearing (R ear) - Cardiovascular Cardiovascular: Other (negative) - Respiratory Respiratory: Other (negative) - Gastrointestinal Gastrointestinal: Constipation - Genitourinary Genitourinary: Urinary Incontinence, Urinary Frequency - Musculoskeletal Musculoskeletal: Arthralgias - Integumentary Integumentary: Other (negative) - Neurological Neurological: Confusion - Psychiatric Psychiatric: Anxiety - Endocrine Endocrine: Other (negative) - Hematologic/Lymphatic Hematologic: Other (negative) Past Patient History - Infectious Disease Hx of Infectious Diseases: None - Tetanus Immunizations Tetanus Immunization: Unknown - Past Medical History & Family History Past Medical History?: Yes Pertinent Family History: Unknown - Past Social History Smoking Status: Never Smoked Alcohol: None Drugs: Denies Home Situation {Lives}: With Family - CARDIAC Hx Cardiac Disorders: Yes Hx Congestive Heart Failure: Yes Hx Hypercholesterolemia: Yes Hx Hypertension: Yes Hx Peripheral Vascular Disease: Yes - PULMONARY Hx Respiratory Disorders: Yes Hx Bronchitis: Yes Hx Chronic Obstructive Pulmonary Disease (COPD): Yes - NEUROLOGICAL Hx Neurological Disorder: Yes Hx Dementia: Yes Hx Seizures: Yes Other/Comment: Dementia - HEENT Hx HEENT Problems: Yes Hx Blind: Yes (left eye) Other/Comment: Hard of hear R ear., left eye blind - RENAL Hx Chronic Kidney Disease: Yes (mild renal insufficiecy.) - ENDOCRINE/METABOLIC Hx Diabetes Mellitus Type 2: Yes Hx Hypothyroidism: Yes - HEMATOLOGICAL/ONCOLOGICAL Hx Anemia: Yes - INTEGUMENTARY Hx Dermatological Problems: No - MUSCULOSKELETAL/RHEUMATOLOGICAL Hx Arthritis: Yes Hx Falls: No - GASTROINTESTINAL Hx Constipation: Yes Hx Gastritis: Yes Hx Hemorrhoids: Yes - GENITOURINARY/GYNECOLOGICAL Hx Genitourinary Disorders: Yes Hx Incontinence: Yes Hx Urinary Tract Infection: Yes - PSYCHIATRIC Hx Anxiety: Yes Hx Depression: Yes Hx Substance Use: No - SURGICAL HISTORY Hx Surgeries: Yes Hx Amputation: Yes (Left toes) Hx Angiogram: Yes Hx Cardiac Catheterization: Yes Hx Cholecystectomy: Yes Hx Coronary Artery Bypass Graft: Yes (x4) Hx Coronary Stent: Yes Hx Eye Surgery: Yes - ANESTHESIA Hx Anesthesia: Yes Hx Anesthesia Reactions: No Hx Malignant Hyperthermia: No Meds Allergies/Adverse Reactions: Allergies Allergy/AdvReac Type Severity Reaction Status Date / Time kiwi Allergy Mild RASH Verified 10/18/17 18:48 morphine Allergy Mild RASH Verified 10/18/17 18:48 Penicillins Allergy Mild RASH Verified 10/18/17 18:48 pineapple Allergy Mild RASH Verified 10/18/17 18:48 watermelon Allergy Mild RASH Verified 10/18/17 18:48 Physical Exam - Constitutional Appears: Chronically Ill - Head Exam Head Exam: NORMAL INSPECTION - Eye Exam Eye Exam: PERRL (R eye, L eye blind) - ENT Exam Additional comments: Hard of hearing R ear - Neck Exam Neck exam: Positive for: Normal Inspection - Respiratory Exam Respiratory Exam: Decreased Breath Sounds (at bases) - Cardiovascular Exam Cardiovascular Exam: REGULAR RHYTHM, Systolic Murmur (2/6 LSB) - GI/Abdominal Exam GI & Abdominal Exam: Normal Bowel Sounds, Soft - Extremities Exam Additional comments: L TMA - Back Exam Back exam: tenderness (mild) - Neurological Exam Neurological exam: Alert (x2) Additional comments: Confused, follows commands, generalized weakness - Psychiatric Exam Psychiatric exam: Anxious - Skin Skin Exam: Warm Results - Vital Signs Recent Vital Signs: Last Vital Signs Temp 97.5 F L 10/19/17 16:21 Pulse 70 10/19/17 16:21 Resp 20 10/19/17 16:21 BP 137/64 10/19/17 17:15 Pulse Ox 98 10/19/17 16:21 reviewed J.PMelinda - Labs Result Diagrams: 10/19/17 12:30 10/19/17 12:30 Labs: Laboratory Results - last 24 hr 10/18/17 10/19/17 10/19/17 21:13 06:06 11:09 WBC RBC Hgb Hct MCV MCH MCHC RDW Plt Count PT INR Sodium Potassium Chloride Carbon Dioxide Anion Gap BUN Creatinine Est GFR ( Amer) Est GFR (Non-Af Amer) POC Glucose (mg/dL) 125 H 118 H 171 H Random Glucose Calcium 10/19/17 10/19/17 10/19/17 12:30 12:30 12:30 WBC 7.4 RBC 3.23 L Hgb 9.8 L Hct 29.5 L MCV 91.4 MCH 30.2 MCHC 33.0 RDW 14.0 Plt Count 193 PT 12.5 INR 1.1 Sodium 138 Potassium 4.8 Chloride 102 Carbon Dioxide 29 Anion Gap 12 BUN 19 H Creatinine 1.1 Est GFR ( Amer) 58 Est GFR (Non-Af Amer) 48 POC Glucose (mg/dL) Random Glucose 153 H Calcium 8.8 10/19/17 16:16 WBC RBC Hgb Hct MCV MCH MCHC RDW Plt Count PT INR Sodium Potassium Chloride Carbon Dioxide Anion Gap BUN Creatinine Est GFR ( Amer) Est GFR (Non-Af Amer) POC Glucose (mg/dL) 185 H Random Glucose Calcium reviewed J.P. Assessment & Plan (1) UTI (urinary tract infection) Status: Acute Priority: High (2) Generalized weakness Status: Chronic Priority: High (3) CHF (congestive heart failure) Status: Chronic Priority: Medium (4) Hx of CABG Status: Chronic Priority: Medium (5) Hypercholesterolemia Status: Chronic Priority: Low (6) Hypothyroidism Status: Chronic Priority: Medium (7) Osteoarthritis Status: Chronic (8) COPD (chronic obstructive pulmonary disease) Status: Chronic Priority: Medium - Assessment and Plan (Free Text) Plan: Continue Merrem, Clinda, Duoneb, Tylenol with Co, Insulin, Synthroid and rest of Tx, OT, PT. - Date & Time Date: 10/19/17 Time: 13:00
[2017-10-19] MEDS: Acetaminophen-Codeine 300/30 mg Tab PO PRN (19:59)
[2017-10-20] MEDS: Albuterol-Ipratrop 3 mg / 0.5 (3 ml) UD INH SCH ×4 (00:59→19:26)
[2017-10-20] MEDS: Meropenem 500 MG in Sodium Chloride 0.9% 100 ML IVPB SCH ×3 (04:28→23:26)
[2017-10-20] MEDS: Levothyroxine 100 MCG TAB PO SCH (05:34)
[2017-10-20] MEDS: Insulin Regular 100 units/ml SC SCH ×4 (06:51→22:30)
[2017-10-20] MEDS: Acetylcysteine 10% 4 ML IH SCH ×2 (07:42→19:26)
[2017-10-20] MEDS: Phenylephrine 0.25 % Supp PR SCH ×2 (08:47→17:34)
[2017-10-20] MEDS: Lactobacillus Acidophilus 500 MU Cap PO SCH ×2 (08:55→17:33)
[2017-10-20] MEDS: Insulin Lispro Mix 75/25 100 units/ml (HumaLog) 10ml SC SCH ×2 (08:55→16:24)
[2017-10-20] MEDS: Nystatin 100,000 Units/ml Oral Susp 5 ml UD PO SCH ×4 (08:58→22:31)
[2017-10-20] MEDS: Patient's Own Med (Ranolazine [Ranexa] 1,000 MG) PO SCH ×2 (08:58→17:34)
[2017-10-20] MEDS: Enoxaparin 30 mg Syringe SC SCH (08:58)
--- NOTE | 2017-10-20 10:54 | RAD ---
HISTORY: md COMPARISON: Chest radiograph dated 10/13/2017. FINDINGS: LUNGS: Left mid/ lower lung platelike atelectasis, unchanged. PLEURA: No significant pleural effusion identified, no pneumothorax apparent. CARDIOVASCULAR: Prior sternotomy with sternal wires and surgical clips redemonstrated. Cardiomediastinal silhouette stably enlarged. OSSEOUS STRUCTURES: No significant abnormalities. VISUALIZED UPPER ABDOMEN: Normal. OTHER FINDINGS: Right upper extremity PICC with catheter tip at the cavoatrial junction. IMPRESSION: Left mid/lower lung platelike atelectasis, unchanged.
[2017-10-20] MEDS: Clindamycin 600mg/50ml NS 600 MG/50 ML BAG IVPB SCH ×2 (12:25→22:29)
--- NOTE | 2017-10-20 13:05 | CP.PCM.PN ---
Subjective - Date & Time of Evaluation Date of Evaluation: 10/20/17 Time of Evaluation: 11:00 - Subjective Subjective: F/U UTI, Generalized weakness. Pt c/o of suprapubic pain, burning urine, still with periods of confusion as per daughter at bedside., Objective - Vital Signs/Intake and Output Vital Signs (last 24 hours): Temp Pulse Resp BP Pulse Ox 97.9 F 60 18 134/62 100 10/20/17 08:28 10/20/17 08:57 10/20/17 08:28 10/20/17 08:57 10/20/17 08:28 - Medications Medications: Current Medications Acetaminophen/Codeine Phosphate (Tylenol/Codeine 300 Mg/30 Mg) 1 tab PO Q8H PRN PRN Reason: Pain, severe (8-10) Last Admin: 10/19/17 19:59 Dose: 1 tab Acetylcysteine (Mucomyst 10% 4ml) 2 ml IH RBID [facility] Last Admin: 10/20/17 07:42 Dose: 2 ml Albuterol/Ipratropium (Duoneb 3 Mg/0.5 Mg (3 Ml) Ud) 3 ml INH RQ6 [facility] Last Admin: 10/20/17 07:42 Dose: 3 ml Alprazolam (Xanax) 0.25 mg PO HS PRN PRN Reason: Insomnia Stop: 10/25/17 20:31 Last Admin: 10/19/17 21:58 Dose: 0.25 mg Artificial Tears (Artificial Tears) 2 drop OU Q4 PRN PRN Reason: Dry eyes Aspirin (Ecotrin) 81 mg PO DAILY [facility] Last Admin: 10/20/17 08:57 Dose: 81 mg Atorvastatin Calcium (Lipitor) 40 mg PO HS [facility] Last Admin: 10/19/17 22:15 Dose: 40 mg Carvedilol (Coreg) 3.125 mg PO DAILY [facility] Last Admin: 10/20/17 08:57 Dose: 3.125 mg Clotrimazole (Lotrimin 1% Cream) 1 applic TOP BID [facility] Last Admin: 10/20/17 08:55 Dose: 1 units Docusate Sodium (Colace) 100 mg PO DAILY PRN PRN Reason: Constipation Last Admin: 10/19/17 08:36 Dose: 100 mg Enoxaparin Sodium (Lovenox) 30 mg SC DAILY [facility] PRN Reason: Protocol Last Admin: 10/20/17 08:58 Dose: 30 mg Furosemide (Lasix) 20 mg PO Q48H [facility] Last Admin: 10/19/17 08:38 Dose: 20 mg Furosemide (Lasix) 20 mg IVP ONCE ONE Stop: 10/21/17 11:49 Gabapentin (Neurontin) 100 mg PO BID PRN PRN Reason: Pain, moderate (4-7) Last Admin: 10/19/17 08:36 Dose: 100 mg Home Med (Ranolazine [Ranexa]) 1,000 mg PO BID [facility] Last Admin: 10/20/17 08:58 Dose: 1,000 mg Meropenem 500 mg/ Sodium (Chloride) 100 mls @ 100 mls/hr IVPB Q8@0500,1300, 2100 [facility] PRN Reason: Protocol Last Admin: 10/20/17 12:25 Dose: 100 mls/hr Clindamycin Phosphate (Cleocin In Normal Saline) 600 mg in 50 mls @ 50 mls/hr IVPB Q8@0500,1300,2100 [facility] PRN Reason: Protocol Last Admin: 10/20/17 12:25 Dose: 50 mls/hr Insulin Human Regular (Humulin R) 0 units SC ACHS EVA PRN Reason: Protocol Last Admin: 10/20/17 12:26 Dose: 2 units Insulin Lispro Protam/Lispro Human (Humalog Mix 75/25) 15 units SC BID [facility] Last Admin: 10/20/17 08:55 Dose: Not Given Lactobacillus Acidophilus (Bacid Acidophilus) 1 cap PO BID [facility] Last Admin: 10/20/17 08:55 Dose: 1 cap Lactulose (Enulose) 20 gm PO BID PRN PRN Reason: Constipation Last Admin: 10/19/17 08:37 Dose: 20 gm Levothyroxine Sodium (Synthroid) 100 mcg PO DAILY@0630 [facility] Last Admin: 10/20/17 05:34 Dose: 100 mcg Nitroglycerin (Nitrostat Sl Tab) 0.4 mg SL PRN PRN PRN Reason: Other CHEST PAIN Nystatin (Nystatin Oral Susp) 5 ml PO QID [facility] Last Admin: 10/20/17 12:25 Dose: 5 ml Phenazopyridine HCl (Pyridium) 200 mg PO TID [facility] Phenylephrine HCl (Preparation H Suppositories) 1 supp AR BID [facility] Last Admin: 10/20/17 08:47 Dose: Not Given - Labs Labs: 10/19/17 12:30 10/19/17 12:30 PT 12.5 Seconds (9.8-13.1) 10/19/17 12:30 INR 1.1 (0.9-1.2) 10/19/17 12:30 - Constitutional Appears: No Acute Distress - Head Exam Head Exam: NORMAL INSPECTION - Eye Exam Eye Exam: PERRL (R eye, L eye blind) - ENT Exam Additional comments: Hard of hearing R - Neck Exam Neck Exam: Normal Inspection - Respiratory Exam Respiratory Exam: Decreased Breath Sounds (at bases) - Cardiovascular Exam Cardiovascular Exam: REGULAR RHYTHM, Murmur (systolic 2/6 LSB) - GI/Abdominal Exam GI & Abdominal Exam: Soft, Normal Bowel Sounds - Extremities Exam Additional comments: L TMA - Back Exam Back Exam: tenderness - Neurological Exam Neurological Exam: Alert (X2, CONFUSED, FOLLOWS COMMANDS, GENERALIZED WEAKNESS.) - Psychiatric Exam Psychiatric exam: Anxious - Skin Skin Exam: Warm Assessment and Plan (1) UTI (urinary tract infection) Status: Acute (2) Generalized weakness Status: Chronic (3) CHF (congestive heart failure) Status: Chronic (4) COPD (chronic obstructive pulmonary disease) Status: Chronic (5) Diabetes mellitus Status: Chronic (6) Hx of CABG Status: Chronic (7) Hypercholesterolemia Status: Chronic (8) Hypothyroidism Status: Chronic (9) Osteoarthritis Status: Chronic - Assessment and Plan (Free Text) Plan: Repeat U C-S, Add Pyridium, continue Clinda, Merrem and rest of Tx.
[2017-10-20 13:57] LABS: SQUAMOUS EPITHIAL 1 /hpf (0-5); URINE BACTERIA RARE (<OCC); URINE BILIRUBIN NEGATIVE (NEGATIVE); URINE BLOOD NEGATIVE (NEGATIVE); URINE CLARITY CLEAR (Clear); URINE COLOR YELLOW (YELLOW); URINE GLUCOSE (UA) 50 mg/dL (Normal); URINE LEUKOCYTE ESTERASE TRACE Leu/uL (Negative); URINE NITRATE NEGATIVE (NEGATIVE); URINE PROTEIN 30 mg/dL (NEGATIVE); URINE UROBILINOGEN 0.2-1.0 mg/dL (0.2-1.0)
[2017-10-20 16:21] VITALS: RESP 20
[2017-10-20] MEDS: Acetaminophen-Codeine 300/30 mg Tab PO PRN (18:18)
[2017-10-21] MEDS: Albuterol-Ipratrop 3 mg / 0.5 (3 ml) UD INH SCH ×3 (01:01→13:55)
[2017-10-21] MEDS: Clindamycin 600mg/50ml NS 600 MG/50 ML BAG IVPB SCH ×3 (04:39→21:23)
[2017-10-21] MEDS: Meropenem 500 MG in Sodium Chloride 0.9% 100 ML IVPB SCH ×3 (06:05→21:33)
[2017-10-21] MEDS: Levothyroxine 100 MCG TAB PO SCH (06:06)
[2017-10-21] MEDS: Insulin Regular 100 units/ml SC SCH ×4 (07:30→21:47)
[2017-10-21] MEDS: Acetylcysteine 10% 4 ML IH SCH (07:36)
[2017-10-21] MEDS: Enoxaparin 30 mg Syringe SC SCH (08:26)
[2017-10-21] MEDS: Lactobacillus Acidophilus 500 MU Cap PO SCH ×2 (08:26→16:56)
[2017-10-21] MEDS: Patient's Own Med (Ranolazine [Ranexa] 1,000 MG) PO SCH ×2 (08:26→16:53)
[2017-10-21] MEDS: Nystatin 100,000 Units/ml Oral Susp 5 ml UD PO SCH ×4 (08:26→21:35)
[2017-10-21] MEDS: Phenylephrine 0.25 % Supp PR SCH ×2 (08:27→16:53)
[2017-10-21] MEDS: Insulin Lispro Mix 75/25 100 units/ml (HumaLog) 10ml SC SCH ×2 (08:30→16:52)
--- NOTE | 2017-10-21 14:08 | CP.PCM.PN ---
Subjective - Date & Time of Evaluation Date of Evaluation: 10/21/17 - Subjective Subjective: F/U UTI. Generalized Weakness. confused , mild suprapubic pain Objective - Vital Signs/Intake and Output Vital Signs (last 24 hours): Temp Pulse Resp BP Pulse Ox 98.0 F 58 L 20 134/69 99 10/21/17 07:53 10/21/17 08:30 10/21/17 07:53 10/21/17 08:30 10/21/17 07:53 - Medications Medications: Current Medications Acetaminophen/Codeine Phosphate (Tylenol/Codeine 300 Mg/30 Mg) 1 tab PO Q8H PRN PRN Reason: Pain, severe (8-10) Last Admin: 10/20/17 18:18 Dose: 1 tab Acetylcysteine (Mucomyst 10% 4ml) 2 ml IH RBID [facility] Last Admin: 10/21/17 07:36 Dose: 2 ml Albuterol/Ipratropium (Duoneb 3 Mg/0.5 Mg (3 Ml) Ud) 3 ml INH RQ6 [facility] Last Admin: 10/21/17 13:55 Dose: 3 ml Alprazolam (Xanax) 0.25 mg PO HS PRN PRN Reason: Insomnia Stop: 10/25/17 20:31 Last Admin: 10/19/17 21:58 Dose: 0.25 mg Artificial Tears (Artificial Tears) 2 drop OU Q4 PRN PRN Reason: Dry eyes Aspirin (Ecotrin) 81 mg PO DAILY [facility] Last Admin: 10/21/17 08:27 Dose: 81 mg Atorvastatin Calcium (Lipitor) 40 mg PO HS [facility] Last Admin: 10/20/17 22:30 Dose: 40 mg Carvedilol (Coreg) 3.125 mg PO DAILY [facility] Last Admin: 10/21/17 08:30 Dose: 3.125 mg Clotrimazole (Lotrimin 1% Cream) 1 applic TOP BID [facility] Last Admin: 10/21/17 08:30 Dose: 1 units Docusate Sodium (Colace) 100 mg PO DAILY PRN PRN Reason: Constipation Last Admin: 10/19/17 08:36 Dose: 100 mg Enoxaparin Sodium (Lovenox) 30 mg SC DAILY [facility] PRN Reason: Protocol Last Admin: 10/21/17 08:26 Dose: 30 mg Furosemide (Lasix) 20 mg PO Q48H [facility] Last Admin: 10/21/17 08:28 Dose: 20 mg Gabapentin (Neurontin) 100 mg PO BID PRN PRN Reason: Pain, moderate (4-7) Last Admin: 10/19/17 08:36 Dose: 100 mg Home Med (Ranolazine [Ranexa]) 1,000 mg PO BID [facility] Last Admin: 10/21/17 08:26 Dose: 1,000 mg Meropenem 500 mg/ Sodium (Chloride) 100 mls @ 100 mls/hr IVPB Q8@0500,1300, 2100 [facility] PRN Reason: Protocol Last Admin: 10/21/17 12:47 Dose: 100 mls/hr Clindamycin Phosphate (Cleocin In Normal Saline) 600 mg in 50 mls @ 50 mls/hr IVPB Q8@0500,1300,2100 [facility] PRN Reason: Protocol Last Admin: 10/21/17 12:32 Dose: 50 mls/hr Insulin Human Regular (Humulin R) 0 units SC ACHS [facility] PRN Reason: Protocol Last Admin: 10/21/17 12:33 Dose: 3 units Insulin Lispro Protam/Lispro Human (Humalog Mix 75/25) 15 units SC BID [facility] Last Admin: 10/21/17 08:30 Dose: Not Given Lactobacillus Acidophilus (Bacid Acidophilus) 1 cap PO BID [facility] Last Admin: 10/21/17 08:26 Dose: 1 cap Lactulose (Enulose) 20 gm PO BID PRN PRN Reason: Constipation Last Admin: 10/19/17 08:37 Dose: 20 gm Levothyroxine Sodium (Synthroid) 100 mcg PO DAILY@0630 [facility] Last Admin: 10/21/17 06:06 Dose: 100 mcg Nitroglycerin (Nitrostat Sl Tab) 0.4 mg SL PRN PRN PRN Reason: Other CHEST PAIN Nystatin (Nystatin Oral Susp) 5 ml PO QID [facility] Last Admin: 10/21/17 12:34 Dose: 5 ml Phenazopyridine HCl (Pyridium) 200 mg PO TID [facility] Last Admin: 10/21/17 12:35 Dose: 200 mg Phenylephrine HCl (Preparation H Suppositories) 1 supp MD BID [facility] Last Admin: 10/21/17 08:27 Dose: Not Given - Labs Labs: 10/19/17 12:30 10/19/17 12:30 PT 12.5 Seconds (9.8-13.1) 10/19/17 12:30 INR 1.1 (0.9-1.2) 10/19/17 12:30 - Constitutional Appears: No Acute Distress - Head Exam Head Exam: NORMAL INSPECTION - Eye Exam Eye Exam: PERRL (R eye, L eye blind) - ENT Exam Additional comments: Hard of hearing R side - Neck Exam Neck Exam: Normal Inspection - Respiratory Exam Respiratory Exam: Decreased Breath Sounds (at bases) - Cardiovascular Exam Cardiovascular Exam: REGULAR RHYTHM, Murmur (systolic 2/6 LSB) - GI/Abdominal Exam GI & Abdominal Exam: Soft, Tenderness (mild suprapubic), Normal Bowel Sounds - Extremities Exam Additional comments: L TMA - Back Exam Back Exam: tenderness - Neurological Exam Neurological Exam: Awake Additional comments: O x2, confused, follows commands, generalized weakness. - Psychiatric Exam Psychiatric exam: Anxious - Skin Skin Exam: Warm Additional comments: R Breast fold redness Assessment and Plan (1) UTI (urinary tract infection) Status: Acute (2) Generalized weakness Status: Chronic (3) CHF (congestive heart failure) Status: Chronic (4) COPD (chronic obstructive pulmonary disease) Status: Chronic (5) Diabetes mellitus Status: Chronic (6) Hx of CABG Status: Chronic (7) Hypercholesterolemia Status: Chronic (8) Hypothyroidism Status: Chronic (9) Osteoarthritis Status: Chronic - Assessment and Plan (Free Text) Plan: continue Merren , Clinda , PT and rest of treatment
--- NOTE | 2017-10-21 16:14 | CP.PCM.CON ---
History of Present Illness - History of Present Illness History of Present Illness: 77 year old female with multiple medical conditions including COPD, CAD , chronic recurrent ESBL UTI's who was admitted for chest pain and weakness and was found to have + UA and ESBL klebsiella Urine culture. has been doing well on Iv antibiotics for UTI and is doing better and is transferred to TCU to complete abx regimen. pt. currently awake and in good spirit with her family at her bedside. denies any complaints. no new events overnight. Review of Systems - Review of Systems Review of Systems: ROS- denies any fever or chills, denies any MACDONALD, denies any cough, denies any sob, denies any chest pain, denies any abd. pain, denies any nausea or vomiting, denies any diarrhea, no dysurea Past Patient History - Infectious Disease Hx of Infectious Diseases: None - Tetanus Immunizations Tetanus Immunization: Unknown - Past Medical History & Family History Past Medical History?: Yes - Past Social History Smoking Status: Never Smoked Alcohol: None Drugs: Denies Home Situation {Lives}: With Family - CARDIAC Hx Cardiac Disorders: Yes Hx Congestive Heart Failure: Yes Hx Hypercholesterolemia: Yes Hx Hypertension: Yes Hx Peripheral Vascular Disease: Yes - PULMONARY Hx Respiratory Disorders: Yes Hx Bronchitis: Yes Hx Chronic Obstructive Pulmonary Disease (COPD): Yes - NEUROLOGICAL Hx Neurological Disorder: Yes Hx Dementia: Yes Hx Seizures: Yes Other/Comment: Dementia - HEENT Hx HEENT Problems: Yes Hx Blind: Yes (left eye) Other/Comment: Hard of hear R ear., left eye blind - RENAL Hx Chronic Kidney Disease: Yes (mild renal insufficiecy.) - ENDOCRINE/METABOLIC Hx Diabetes Mellitus Type 2: Yes Hx Hypothyroidism: Yes - HEMATOLOGICAL/ONCOLOGICAL Hx Anemia: Yes - INTEGUMENTARY Hx Dermatological Problems: No - MUSCULOSKELETAL/RHEUMATOLOGICAL Hx Arthritis: Yes Hx Falls: No - GASTROINTESTINAL Hx Constipation: Yes Hx Gastritis: Yes Hx Hemorrhoids: Yes - GENITOURINARY/GYNECOLOGICAL Hx Genitourinary Disorders: Yes Hx Incontinence: Yes Hx Urinary Tract Infection: Yes - PSYCHIATRIC Hx Anxiety: Yes Hx Depression: Yes Hx Substance Use: No - SURGICAL HISTORY Hx Surgeries: Yes Hx Amputation: Yes (Left toes) Hx Angiogram: Yes Hx Cardiac Catheterization: Yes Hx Cholecystectomy: Yes Hx Coronary Artery Bypass Graft: Yes (x4) Hx Coronary Stent: Yes Hx Eye Surgery: Yes - ANESTHESIA Hx Anesthesia: Yes Hx Anesthesia Reactions: No Hx Malignant Hyperthermia: No Meds Allergies/Adverse Reactions: Allergies Allergy/AdvReac Type Severity Reaction Status Date / Time kiwi Allergy Mild RASH Verified 10/18/17 18:48 morphine Allergy Mild RASH Verified 10/18/17 18:48 Penicillins Allergy Mild RASH Verified 10/18/17 18:48 pineapple Allergy Mild RASH Verified 10/18/17 18:48 watermelon Allergy Mild RASH Verified 10/18/17 18:48 - Medications Medications: Current Medications Acetaminophen/Codeine Phosphate (Tylenol/Codeine 300 Mg/30 Mg) 1 tab PO Q8H PRN PRN Reason: Pain, severe (8-10) Last Admin: 10/20/17 18:18 Dose: 1 tab Acetylcysteine (Mucomyst 10% 4ml) 2 ml IH RBID [facility] Last Admin: 10/21/17 07:36 Dose: 2 ml Albuterol/Ipratropium (Duoneb 3 Mg/0.5 Mg (3 Ml) Ud) 3 ml INH RQ6 [facility] Last Admin: 10/21/17 13:55 Dose: 3 ml Alprazolam (Xanax) 0.25 mg PO HS PRN PRN Reason: Insomnia Stop: 10/25/17 20:31 Last Admin: 10/19/17 21:58 Dose: 0.25 mg Artificial Tears (Artificial Tears) 2 drop OU Q4 PRN PRN Reason: Dry eyes Aspirin (Ecotrin) 81 mg PO DAILY [facility] Last Admin: 10/21/17 08:27 Dose: 81 mg Atorvastatin Calcium (Lipitor) 40 mg PO HS [facility] Last Admin: 10/20/17 22:30 Dose: 40 mg Carvedilol (Coreg) 3.125 mg PO DAILY [facility] Last Admin: 10/21/17 08:30 Dose: 3.125 mg Clotrimazole (Lotrimin 1% Cream) 1 applic TOP BID [facility] Last Admin: 10/21/17 08:30 Dose: 1 units Docusate Sodium (Colace) 100 mg PO DAILY PRN PRN Reason: Constipation Last Admin: 10/19/17 08:36 Dose: 100 mg Enoxaparin Sodium (Lovenox) 30 mg SC DAILY [facility] PRN Reason: Protocol Last Admin: 10/21/17 08:26 Dose: 30 mg Furosemide (Lasix) 20 mg IVP DAILY [facility] Gabapentin (Neurontin) 100 mg PO BID PRN PRN Reason: Pain, moderate (4-7) Last Admin: 10/19/17 08:36 Dose: 100 mg Home Med (Ranolazine [Ranexa]) 1,000 mg PO BID [facility] Last Admin: 10/21/17 08:26 Dose: 1,000 mg Meropenem 500 mg/ Sodium (Chloride) 100 mls @ 100 mls/hr IVPB Q8@0500,1300, 2100 [facility] PRN Reason: Protocol Last Admin: 10/21/17 12:47 Dose: 100 mls/hr Clindamycin Phosphate (Cleocin In Normal Saline) 600 mg in 50 mls @ 50 mls/hr IVPB Q8@0500,1300,2100 [facility] PRN Reason: Protocol Last Admin: 10/21/17 12:32 Dose: 50 mls/hr Insulin Human Regular (Humulin R) 0 units SC ACHS [facility] PRN Reason: Protocol Last Admin: 10/21/17 12:33 Dose: 3 units Insulin Lispro Protam/Lispro Human (Humalog Mix 75/25) 15 units SC BID [facility] Last Admin: 10/21/17 08:30 Dose: Not Given Lactobacillus Acidophilus (Bacid Acidophilus) 1 cap PO BID [facility] Last Admin: 10/21/17 08:26 Dose: 1 cap Lactulose (Enulose) 20 gm PO BID PRN PRN Reason: Constipation Last Admin: 10/19/17 08:37 Dose: 20 gm Levothyroxine Sodium (Synthroid) 100 mcg PO DAILY@0630 [facility] Last Admin: 10/21/17 06:06 Dose: 100 mcg Nitroglycerin (Nitrostat Sl Tab) 0.4 mg SL PRN PRN PRN Reason: Other CHEST PAIN Nystatin (Nystatin Oral Susp) 5 ml PO QID [facility] Last Admin: 10/21/17 12:34 Dose: 5 ml Phenazopyridine HCl (Pyridium) 200 mg PO TID [facility] Last Admin: 10/21/17 12:35 Dose: 200 mg Phenylephrine HCl (Preparation H Suppositories) 1 supp [place] BID [facility] Last Admin: 10/21/17 08:27 Dose: Not Given Physical Exam - Additional Findings Additional findings: - Constitutional Appears: No Acute Distress - Head Exam Head Exam: ATRAUMATIC - ENT Exam ENT Exam: Normal Oropharynx - Neck Exam Neck exam: Positive for: Full Rom Additional comments: supple - Respiratory Exam Respiratory Exam: Clear to Auscultation Bilateral, NORMAL BREATHING PATTERN - Cardiovascular Exam Cardiovascular Exam: RRR, +S1, +S2 - GI/Abdominal Exam GI & Abdominal Exam: Normal Bowel Sounds, Soft Additional comments: No distention, No tenderness with palpation no guarding, no rebound - Extremities Exam Extremities exam: Positive for: normal inspection - Neurological Exam Neurological exam: Awake Results - Vital Signs Recent Vital Signs: Last Vital Signs Temp 98.0 F 10/21/17 07:53 Pulse 58 L 10/21/17 08:30 Resp 20 10/21/17 07:53 BP 134/69 10/21/17 08:30 Pulse Ox 99 10/21/17 07:53 - Labs Result Diagrams: 10/19/17 12:30 10/19/17 12:30 Labs: Laboratory Results - last 24 hr 10/20/17 10/21/17 10/21/17 21:31 07:12 10:42 POC Glucose (mg/dL) 304 H 232 H 254 H Microbiology 10/20/17 13:10 Urine,Clean Catch Urine Culture - Final No Growth (<1,000 CFU/ML) Microbiology 10/20/17 13:10 Urine,Clean Catch Urine Culture - Final No Growth (<1,000 CFU/ML) 10/14/17 18:12 Blood-Venous Blood Culture - Final 10/14/17 18:12 Blood-Venous Gram Stain - Final NO GROWTH AFTER 5 DAYS TEST NOT PERFORMED 10/14/17 18:02 Blood-Venous Blood Culture - Final 10/14/17 18:02 Blood-Venous Gram Stain - Final NO GROWTH AFTER 5 DAYS TEST NOT PERFORMED 10/14/17 11:34 Urine,Catheterized Urine Culture - Final Klebsiella Pneumoniae Ssp Pneu Accession No. : [id number] Patient Name / ID : RAMONITA BERUMEN / [id number] Exam Date : 10/19/2017 15:31:26 ( Approved ) Study Comment : Sex / Age : F / 77Y Creator : Jai Lorenzo MD Dictator : Jai Lorenzo MD Bed Spring Maker : Head Of Marketing : Jai Lorenzo MD Approver2 : Report Date : 10/20/2017 10:46:39 My Comment : HISTORY: md COMPARISON: Chest radiograph dated 10/13/2017. FINDINGS: LUNGS: Left mid/ lower lung platelike atelectasis, unchanged. PLEURA: No significant pleural effusion identified, no pneumothorax apparent. CARDIOVASCULAR: Prior sternotomy with sternal wires and surgical clips redemonstrated. Cardiomediastinal silhouette stably enlarged. OSSEOUS STRUCTURES: No significant abnormalities. VISUALIZED UPPER ABDOMEN: Normal. OTHER FINDINGS: Right upper extremity PICC with catheter tip at the cavoatrial junction. IMPRESSION: Left mid/lower lung platelike atelectasis, unchanged. Assessment & Plan - Assessment and Plan (Free Text) Assessment: 77 year old female with multiple medical conditions including COPD, CAD , chronic recurrent ESBL UTI's who was admitted for chest pain adn weakness and was found to have + UA and ESBL klebsiella Urine culture. clinically much better. afebrile normal wbc count acute on chronic renal insufficiency has resolved. repeat UA and urine cx from 10/20/2017- negative initial admission Urine cx- > 100,000 Klebsiella ESBL 10/10/2017 Blood cx- negative x 3 plan- advise to continue with IV meropenem for ESBL UTI day #8 ( renal dose). continue Iv meropnem for 2 more days and then d/c it. monitor aspiration precautions. All above d/w patient's daughter who is at her bedside. Thank you for allowing me to take part in the care of this patient.
[2017-10-22] MEDS ORDERED: Anusol Suppository PR ONE (00:06)
[2017-10-22] MEDS: Albuterol-Ipratrop 3 mg / 0.5 (3 ml) UD INH SCH ×4 (01:54→19:44)
[2017-10-22] MEDS: Clindamycin 600mg/50ml NS 600 MG/50 ML BAG IVPB SCH ×3 (04:17→20:53)
[2017-10-22] MEDS: Meropenem 500 MG in Sodium Chloride 0.9% 100 ML IVPB SCH ×3 (05:23→21:06)
[2017-10-22] MEDS: Levothyroxine 100 MCG TAB PO SCH (06:43)
[2017-10-22] MEDS: Acetylcysteine 10% 4 ML IH SCH ×2 (07:55→19:44)
[2017-10-22] MEDS: Insulin Regular 100 units/ml SC SCH ×4 (09:38→21:26)
[2017-10-22] MEDS: Nystatin 100,000 Units/ml Oral Susp 5 ml UD PO SCH ×4 (09:41→21:00)
[2017-10-22] MEDS: Insulin Lispro Mix 75/25 100 units/ml (HumaLog) 10ml SC SCH ×2 (09:42→17:36)
[2017-10-22] MEDS: Enoxaparin 30 mg Syringe SC SCH (09:43)
[2017-10-22] MEDS: Patient's Own Med (Ranolazine [Ranexa] 1,000 MG) PO SCH ×2 (09:45→17:35)
[2017-10-22] MEDS: Phenylephrine 0.25 % Supp PR SCH ×2 (09:45→17:35)
[2017-10-22] MEDS: Lactobacillus Acidophilus 500 MU Cap PO SCH ×2 (10:01→17:34)
--- NOTE | 2017-10-22 17:21 | CP.PCM.PN ---
Subjective - Date & Time of Evaluation Date of Evaluation: 10/22/17 - Subjective Subjective: F/U UTI. Generalized weakness. more alert , occasional periods of confusion as per Patient's family at bedside, chest pain retrosternal no radiation Objective - Vital Signs/Intake and Output Vital Signs (last 24 hours): Temp Pulse Resp BP Pulse Ox 97.7 F 68 20 127/57 L 93 L 10/22/17 16:30 10/22/17 16:30 10/22/17 16:30 10/22/17 16:30 10/22/17 16:30 - Medications Medications: Current Medications Acetaminophen/Codeine Phosphate (Tylenol/Codeine 300 Mg/30 Mg) 1 tab PO Q8H PRN PRN Reason: Pain, severe (8-10) Last Admin: 10/20/17 18:18 Dose: 1 tab Acetylcysteine (Mucomyst 10% 4ml) 2 ml IH RBID [facility] Last Admin: 10/22/17 07:55 Dose: 2 ml Albuterol/Ipratropium (Duoneb 3 Mg/0.5 Mg (3 Ml) Ud) 3 ml INH RQ6 [facility] Last Admin: 10/22/17 14:40 Dose: 3 ml Alprazolam (Xanax) 0.25 mg PO HS PRN PRN Reason: Insomnia Stop: 10/25/17 20:31 Last Admin: 10/19/17 21:58 Dose: 0.25 mg Artificial Tears (Artificial Tears) 2 drop OU Q4 PRN PRN Reason: Dry eyes Aspirin (Ecotrin) 81 mg PO DAILY [facility] Last Admin: 10/22/17 09:42 Dose: 81 mg Atorvastatin Calcium (Lipitor) 40 mg PO HS [facility] Last Admin: 10/21/17 21:35 Dose: 40 mg Carvedilol (Coreg) 3.125 mg PO DAILY [facility] Last Admin: 10/22/17 09:40 Dose: 3.125 mg Clotrimazole (Lotrimin 1% Cream) 1 applic TOP BID [facility] Last Admin: 10/22/17 09:44 Dose: 1 units Docusate Sodium (Colace) 100 mg PO DAILY PRN PRN Reason: Constipation Last Admin: 10/22/17 10:05 Dose: 100 mg Enoxaparin Sodium (Lovenox) 30 mg SC DAILY [facility] PRN Reason: Protocol Last Admin: 10/22/17 09:43 Dose: 30 mg Furosemide (Lasix) 20 mg IVP DAILY [facility] Last Admin: 10/22/17 09:46 Dose: 20 mg Gabapentin (Neurontin) 100 mg PO BID PRN PRN Reason: Pain, moderate (4-7) Last Admin: 10/19/17 08:36 Dose: 100 mg Home Med (Ranolazine [Ranexa]) 1,000 mg PO BID [facility] Last Admin: 10/22/17 09:45 Dose: 1,000 mg Meropenem 500 mg/ Sodium (Chloride) 100 mls @ 100 mls/hr IVPB Q8@0500,1300, 2100 [facility] PRN Reason: Protocol Last Admin: 10/22/17 12:33 Dose: 100 mls/hr Clindamycin Phosphate (Cleocin In Normal Saline) 600 mg in 50 mls @ 50 mls/hr IVPB Q8@0500,1300,2100 [facility] PRN Reason: Protocol Last Admin: 10/22/17 12:39 Dose: 50 mls/hr Insulin Human Regular (Humulin R) 0 units SC ACHS [facility] PRN Reason: Protocol Last Admin: 10/22/17 12:34 Dose: 2 units Insulin Lispro Protam/Lispro Human (Humalog Mix 75/25) 15 units SC BID [facility] Last Admin: 10/22/17 09:42 Dose: Not Given Lactobacillus Acidophilus (Bacid Acidophilus) 1 cap PO BID [facility] Last Admin: 10/22/17 10:01 Dose: 1 cap Lactulose (Enulose) 20 gm PO BID PRN PRN Reason: Constipation Last Admin: 10/19/17 08:37 Dose: 20 gm Levothyroxine Sodium (Synthroid) 100 mcg PO DAILY@0630 [facility] Last Admin: 10/22/17 06:43 Dose: 100 mcg Nitroglycerin (Nitrostat Sl Tab) 0.4 mg SL PRN PRN PRN Reason: Other CHEST PAIN Nystatin (Nystatin Oral Susp) 5 ml PO QID [facility] Last Admin: 10/22/17 12:39 Dose: 5 ml Nystatin (Nystop Topical Powder) 1 applic TOP TID [facility] Last Admin: 10/22/17 12:35 Dose: 1 units Phenazopyridine HCl (Pyridium) 200 mg PO TID [facility] Last Admin: 10/22/17 12:34 Dose: 200 mg Phenylephrine HCl (Preparation H Suppositories) 1 supp [place] BID [facility] Last Admin: 10/22/17 09:45 Dose: Not Given - Labs Labs: 10/19/17 12:30 10/19/17 12:30 PT 12.5 Seconds (9.8-13.1) 10/19/17 12:30 INR 1.1 (0.9-1.2) 10/19/17 12:30 - Constitutional Appears: No Acute Distress - Head Exam Head Exam: NORMAL INSPECTION - Eye Exam Eye Exam: PERRL (R eye, L eye blind) - ENT Exam Additional comments: Hard of hearing R side. - Neck Exam Neck Exam: Normal Inspection - Respiratory Exam Respiratory Exam: Decreased Breath Sounds (at bases) - Cardiovascular Exam Cardiovascular Exam: REGULAR RHYTHM, Murmur (systolic 2/6 LSB) - GI/Abdominal Exam GI & Abdominal Exam: Soft, Normal Bowel Sounds - Extremities Exam Additional comments: L TMA - Back Exam Back Exam: tenderness - Neurological Exam Neurological Exam: Awake Additional comments: Ox2, follows commands, generalized weakness. - Psychiatric Exam Psychiatric exam: Anxious - Skin Skin Exam: Warm Assessment and Plan (1) UTI (urinary tract infection) Status: Acute (2) Generalized weakness Status: Chronic (3) CHF (congestive heart failure) Status: Chronic (4) COPD (chronic obstructive pulmonary disease) Status: Chronic (5) Diabetes mellitus Status: Chronic (6) Hx of CABG Status: Chronic (7) Hypercholesterolemia Status: Chronic (8) Hypothyroidism Status: Chronic (9) Osteoarthritis Status: Chronic (10) Chest pain Status: Acute - Assessment and Plan (Free Text) Plan: UTI ESBL Klebsiella , repeated , U C-S 10-21-16 neg continue Merren for 2 days , ID consult appreciated , Chest pain f/u EKG
[2017-10-23] MEDS: Albuterol-Ipratrop 3 mg / 0.5 (3 ml) UD INH SCH ×4 (01:06→19:11)
[2017-10-23] MEDS: Clindamycin 600mg/50ml NS 600 MG/50 ML BAG IVPB SCH ×3 (04:24→20:38)
[2017-10-23] MEDS: Meropenem 500 MG in Sodium Chloride 0.9% 100 ML IVPB SCH ×3 (04:32→20:38)
[2017-10-23] MEDS: Levothyroxine 100 MCG TAB PO SCH (06:59)
[2017-10-23] MEDS: Insulin Regular 100 units/ml SC SCH ×4 (07:07→22:03)
[2017-10-23] MEDS: Acetylcysteine 10% 4 ML IH SCH ×3 (08:06→19:11)
[2017-10-23] MEDS: Insulin Lispro Mix 75/25 100 units/ml (HumaLog) 10ml SC SCH ×2 (09:20→16:46)
[2017-10-23] MEDS: Nystatin 100,000 Units/ml Oral Susp 5 ml UD PO SCH ×4 (09:21→21:20)
[2017-10-23] MEDS: Enoxaparin 30 mg Syringe SC SCH (09:21)
[2017-10-23] MEDS: Lactobacillus Acidophilus 500 MU Cap PO SCH ×2 (09:23→16:44)
[2017-10-23] MEDS: Phenylephrine 0.25 % Supp PR SCH ×2 (09:24→17:00)
[2017-10-23] MEDS: Patient's Own Med (Ranolazine [Ranexa] 1,000 MG) PO SCH ×2 (09:25→16:49)
--- NOTE | 2017-10-23 14:12 | CP.PCM.PN ---
Subjective - Date & Time of Evaluation Date of Evaluation: 10/23/17 - Subjective Subjective: F/U UTI. Generalized Weakness. no C/P , N/C , more alert , not confused now Objective - Vital Signs/Intake and Output Vital Signs (last 24 hours): Temp Pulse Resp BP Pulse Ox 97.9 F 71 20 120/49 L 96 10/23/17 09:29 10/23/17 09:29 10/23/17 09:29 10/23/17 09:29 10/23/17 09:29 - Medications Medications: Current Medications Acetaminophen/Codeine Phosphate (Tylenol/Codeine 300 Mg/30 Mg) 1 tab PO Q8H PRN PRN Reason: Pain, severe (8-10) Last Admin: 10/20/17 18:18 Dose: 1 tab Acetylcysteine (Mucomyst 10% 4ml) 2 ml IH RBID [facility] Last Admin: 10/23/17 08:07 Dose: 2 ml Albuterol/Ipratropium (Duoneb 3 Mg/0.5 Mg (3 Ml) Ud) 3 ml INH RQ6 [facility] Last Admin: 10/23/17 14:00 Dose: 3 ml Alprazolam (Xanax) 0.25 mg PO HS PRN PRN Reason: Insomnia Stop: 10/25/17 20:31 Last Admin: 10/19/17 21:58 Dose: 0.25 mg Artificial Tears (Artificial Tears) 2 drop OU Q4 PRN PRN Reason: Dry eyes Aspirin (Ecotrin) 81 mg PO DAILY [facility] Last Admin: 10/23/17 09:24 Dose: 81 mg Atorvastatin Calcium (Lipitor) 40 mg PO HS [facility] Last Admin: 10/22/17 21:00 Dose: 40 mg Carvedilol (Coreg) 3.125 mg PO DAILY [facility] Last Admin: 10/23/17 09:23 Dose: 3.125 mg Clotrimazole (Lotrimin 1% Cream) 1 applic TOP BID [facility] Last Admin: 10/23/17 09:21 Dose: 1 units Docusate Sodium (Colace) 100 mg PO DAILY PRN PRN Reason: Constipation Last Admin: 10/23/17 09:25 Dose: 100 mg Enoxaparin Sodium (Lovenox) 30 mg SC DAILY [facility] PRN Reason: Protocol Last Admin: 10/23/17 09:21 Dose: 30 mg Furosemide (Lasix) 20 mg IVP DAILY [facility] Last Admin: 10/23/17 09:21 Dose: 20 mg Gabapentin (Neurontin) 100 mg PO BID PRN PRN Reason: Pain, moderate (4-7) Last Admin: 10/19/17 08:36 Dose: 100 mg Home Med (Ranolazine [Ranexa]) 1,000 mg PO BID [facility] Last Admin: 10/23/17 09:25 Dose: Not Given Meropenem 500 mg/ Sodium (Chloride) 100 mls @ 100 mls/hr IVPB Q8@0500,1300, 2100 [facility] PRN Reason: Protocol Last Admin: 10/23/17 12:41 Dose: 100 mls/hr Clindamycin Phosphate (Cleocin In Normal Saline) 600 mg in 50 mls @ 50 mls/hr IVPB Q8@0500,1300,2100 [facility] PRN Reason: Protocol Last Admin: 10/23/17 12:40 Dose: 50 mls/hr Insulin Human Regular (Humulin R) 0 units SC ACHS [facility] PRN Reason: Protocol Last Admin: 10/23/17 12:42 Dose: 3 units Insulin Lispro Protam/Lispro Human (Humalog Mix 75/25) 15 units SC BID [facility] Last Admin: 10/23/17 09:20 Dose: Not Given Lactobacillus Acidophilus (Bacid Acidophilus) 1 cap PO BID [facility] Last Admin: 10/23/17 09:23 Dose: 1 cap Lactulose (Enulose) 20 gm PO BID PRN PRN Reason: Constipation Last Admin: 10/19/17 08:37 Dose: 20 gm Levothyroxine Sodium (Synthroid) 100 mcg PO DAILY@0630 [facility] Last Admin: 10/23/17 06:59 Dose: 100 mcg Nitroglycerin (Nitrostat Sl Tab) 0.4 mg SL PRN PRN PRN Reason: Other CHEST PAIN Last Admin: 10/23/17 01:27 Dose: 0.4 mg Nystatin (Nystatin Oral Susp) 5 ml PO QID [facility] Last Admin: 10/23/17 12:44 Dose: 5 ml Nystatin (Nystop Topical Powder) 1 applic TOP TID [facility] Last Admin: 10/23/17 12:43 Dose: 1 units Phenazopyridine HCl (Pyridium) 200 mg PO TID [facility] Last Admin: 10/23/17 09:20 Dose: 200 mg Phenylephrine HCl (Preparation H Suppositories) 1 supp [place] BID [facility] Last Admin: 10/23/17 09:24 Dose: Not Given - Labs Labs: 10/19/17 12:30 10/19/17 12:30 PT 12.5 Seconds (9.8-13.1) 10/19/17 12:30 INR 1.1 (0.9-1.2) 10/19/17 12:30 - Constitutional Appears: Chronically Ill - Head Exam Head Exam: NORMAL INSPECTION - Eye Exam Eye Exam: PERRL (R eye, L eye blind.) - ENT Exam Additional comments: Hard of hearing R side - Neck Exam Neck Exam: Normal Inspection - Respiratory Exam Respiratory Exam: Decreased Breath Sounds (at bases) - Cardiovascular Exam Cardiovascular Exam: REGULAR RHYTHM, Murmur (systolic 2/6 LSB) - GI/Abdominal Exam GI & Abdominal Exam: Soft, Normal Bowel Sounds - Extremities Exam Additional comments: L TMA - Back Exam Back Exam: tenderness - Neurological Exam Neurological Exam: Awake Additional comments: Ox2, follows commands, generalized weakness. - Psychiatric Exam Psychiatric exam: Anxious - Skin Additional comments: R breast fold redness Assessment and Plan (1) UTI (urinary tract infection) Status: Acute (2) Generalized weakness Status: Chronic (3) CHF (congestive heart failure) Status: Chronic (4) COPD (chronic obstructive pulmonary disease) Status: Chronic (5) Diabetes mellitus Status: Chronic (6) Hx of CABG Status: Chronic (7) Hypercholesterolemia Status: Chronic (8) Hypothyroidism Status: Chronic (9) Osteoarthritis Status: Chronic (10) Dermatitis Assessment & Plan: R Breast Status: Acute - Assessment and Plan (Free Text) Plan: EKG RSR, continue Merren , Lotrimin, PT and rest of treatment
[2017-10-23] MEDS ORDERED: Alum-Mag Hydrox-Simethicone Susp (30 mL) PO PRN (15:50)
[2017-10-23] MEDS: Pantoprazole 40 mg EC Tab PO SCH (16:48)
[2017-10-24] MEDS: Albuterol-Ipratrop 3 mg / 0.5 (3 ml) UD INH SCH ×4 (01:06→19:36)
[2017-10-24] MEDS: Levothyroxine 100 MCG TAB PO SCH (05:45)
[2017-10-24] MEDS: Insulin Regular 100 units/ml SC SCH ×4 (06:36→21:22)
[2017-10-24] MEDS: Acetylcysteine 10% 4 ML IH SCH ×2 (08:11→19:35)
[2017-10-24] MEDS: Insulin Lispro Mix 75/25 100 units/ml (HumaLog) 10ml SC SCH ×2 (09:07→17:02)
[2017-10-24] MEDS: Phenylephrine 0.25 % Supp PR SCH ×2 (09:08→17:05)
[2017-10-24] MEDS: Enoxaparin 30 mg Syringe SC SCH (09:09)
[2017-10-24] MEDS: Nystatin 100,000 Units/ml Oral Susp 5 ml UD PO SCH ×4 (09:10→21:21)
[2017-10-24] MEDS: Patient's Own Med (Ranolazine [Ranexa] 1,000 MG) PO SCH ×2 (09:10→17:06)
[2017-10-24] MEDS: Pantoprazole 40 mg EC Tab PO SCH ×2 (09:11→17:11)
[2017-10-24] MEDS: Lactobacillus Acidophilus 500 MU Cap PO SCH ×2 (09:32→17:11)
[2017-10-25] MEDS: Albuterol-Ipratrop 3 mg / 0.5 (3 ml) UD INH SCH ×3 (01:13→13:08)
[2017-10-25] MEDS: Levothyroxine 100 MCG TAB PO SCH (05:52)
[2017-10-25] MEDS: Insulin Regular 100 units/ml SC SCH ×2 (06:33→13:28)
[2017-10-25] MEDS: Acetylcysteine 10% 4 ML IH SCH (07:57)
[2017-10-25 08:13] VITALS: PULSE 85
[2017-10-25] MEDS: Insulin Lispro Mix 75/25 100 units/ml (HumaLog) 10ml SC SCH (09:18)
[2017-10-25] MEDS: Pantoprazole 40 mg EC Tab PO SCH (09:21)
[2017-10-25] MEDS: Patient's Own Med (Ranolazine [Ranexa] 1,000 MG) PO SCH (09:21)
[2017-10-25] MEDS: Nystatin 100,000 Units/ml Oral Susp 5 ml UD PO SCH ×2 (09:21→13:29)
[2017-10-25] MEDS: Lactobacillus Acidophilus 500 MU Cap PO SCH (09:22)
[2017-10-25] MEDS: Enoxaparin 30 mg Syringe SC SCH (09:22)
[2017-10-25] MEDS: Phenylephrine 0.25 % Supp PR SCH (09:24)
--- NOTE | 2017-10-25 15:40 | CP.PCM.DIS ---
Provider - Provider Date of Admission: 10/18/17 18:49 Attending physician: Sridhar Oliver MD Diagnosis - Discharge Diagnosis (1) UTI (urinary tract infection) Status: Acute Priority: High (2) Generalized weakness Status: Chronic Priority: High (3) CHF (congestive heart failure) Status: Chronic Priority: High (4) COPD (chronic obstructive pulmonary disease) Status: Chronic Priority: Medium (5) Diabetes mellitus Status: Chronic Priority: High (6) Hx of CABG Status: Chronic Priority: Medium (7) Hypercholesterolemia Status: Chronic Priority: Low (8) Hypothyroidism Status: Chronic Priority: Medium (9) Osteoarthritis Status: Chronic Hospital Course - Lab Results Lab Results: Micro Results 10/20/17 13:10 Urine,Clean Catch Urine Culture - Final No Growth (<1,000 CFU/ML) Most Recent Lab Values WBC 7.4 K/uL (4.8-10.8) 10/19/17 12:30 RBC 3.23 Mil/uL (3.80-5.20) L 10/19/17 12:30 Hgb 9.8 g/dL (12.0-16.0) L 10/19/17 12:30 Hct 29.5 % (34.0-47.0) L 10/19/17 12:30 MCV 91.4 fl (81.0-99.0) 10/19/17 12:30 MCH 30.2 pg (27.0-31.0) 10/19/17 12:30 MCHC 33.0 g/dL (33.0-37.0) 10/19/17 12:30 RDW 14.0 % (11.5-14.5) 10/19/17 12:30 Plt Count 193 K/uL (130-400) 10/19/17 12:30 PT 12.5 Seconds (9.8-13.1) 10/19/17 12:30 INR 1.1 (0.9-1.2) 10/19/17 12:30 Sodium 138 mmol/l (132-148) 10/19/17 12:30 Potassium 4.8 MMOL/L (3.6-5.0) 10/19/17 12:30 Chloride 102 mmol/L (98-107) 10/19/17 12:30 Carbon Dioxide 29 mmol/L (22-30) 10/19/17 12:30 Anion Gap 12 (10-20) 10/19/17 12:30 BUN 19 mg/dl (7-17) H 10/19/17 12:30 Creatinine 1.1 mg/dl (0.7-1.2) 10/19/17 12:30 Est GFR ( Amer) 58 10/19/17 12:30 Est GFR (Non-Af Amer) 48 10/19/17 12:30 POC Glucose (mg/dL) 373 mg/dL (65-110) H 10/25/17 15:31 Random Glucose 153 mg/dL (65-105) H 10/19/17 12:30 Calcium 8.8 mg/dL (8.4-10.2) 10/19/17 12:30 Urine Color Yellow (YELLOW) 10/20/17 13:10 Urine Clarity Clear (Clear) 10/20/17 13:10 Urine pH 6.0 (5.0-8.0) 10/20/17 13:10 Ur Specific [place] 1.010 (1.003-1.030) 10/20/17 13:10 Urine Protein 30 mg/dL (NEGATIVE) 10/20/17 13:10 Urine Glucose (UA) 50 mg/dL (Normal) 10/20/17 13:10 Urine Ketones Negative mg/dL (NEGATIVE) 10/20/17 13:10 Urine Blood Negative (NEGATIVE) 10/20/17 13:10 Urine Nitrate Negative (NEGATIVE) 10/20/17 13:10 Urine Bilirubin Negative (NEGATIVE) 10/20/17 13:10 Urine Urobilinogen 0.2-1.0 mg/dL (0.2-1.0) 10/20/17 13:10 Ur Leukocyte Esterase Trace Kong/uL (Negative) 10/20/17 13:10 Ur Squamous Epith Cells 1 /hpf (0-5) 10/20/17 13:10 Urine Bacteria Rare (<OCC) 10/20/17 13:10 Hyaline Casts 3-5 /hpf (0-2) H 10/20/17 13:10 - Hospital Course Hospital Course: 77 yrs old female transferred to TCU to complete antibiotic treatment for UTI ESBL Klebsiella and have PT due to mobility impairement and weakness MHx recurrent UTI ,DM ,,CHF , Hypothyroidism, CAD , HCL , PVD , COPD , Dementia Seizure , CKD , OA Depression, Cholecystectomy, CABG, ,Coronary stent , L TMA Patient was treated with Merren , Clinda , ID urban design consultant , f/u UC-S was negative , also patient developed R breast fold Dermatitis that responded to local treatment, one episode of chest pain , EKG RSR. Patient was discharge in improved and stable condition, see NOV inst/med , f/u PMD next week Discharge Exam - Head Exam Head Exam: NORMAL INSPECTION - Eye Exam Pupil Exam: PERRL (R Eye , L Eye blind) - ENT Exam Additional comments: hard of hearing R Ear - Neck Exam Neck exam: Normal Inspection - Respiratory Exam Respiratory Exam: Decreased Breath Sounds (at bases) - Cardiovascular Exam Cardiovascular Exam: REGULAR RHYTHM, Systolic Murmur (2/6 LSB Ao) - GI/Abdominal Exam GI & Abdominal Exam: Normal Bowel Sounds, Soft - Extremities Exam Additional comments: L TMA - Back Exam Back exam: tenderness - Neurological Exam Additional comments: AOx2, follows commands, generalized weakness - Skin Skin Exam: Erythema (R Breast fold) Discharge Plan - Follow Up Plan Condition: GOOD Disposition: HOME/ ROUTINE Instructions: Chest Pain (DC), Urinary Tract Infection in Women (DC), Fall Prevention (DC) Additional Instructions: discharge patient home. followup with PMD, call for appointment. cleanse underneath breast fold with warm soap and water. pat dry. apply bacitracin daily
[2017-10-25 16:06] VITALS: BP 134/60; TEMP 97.2; O2SAT 96
== END 2017-10-25 16:30 | disposition home or self-care (01) | DRG 320 ==
LOC: H.TCU 18:49
PROVIDERS: ADMIT Internal Medicine Pulmonary Disease; ATTEND Internal Medicine Pulmonary Disease
PROC: 3E03329 Introduction of Other Anti-infective into Peripheral Vein, Percutaneous Approach (ICD-10-PCS; principal; 2017-10-18)
PROC: F07M6FZ Therapeutic Exercise Treatment of Musculoskeletal System - Whole Body using Assistive, Adaptive, Supportive or Protective Equipment (ICD-10-PCS; 2017-10-18)
DX: N39.0 Urinary tract infection, site not specified (principal); R32 Unspecified urinary incontinence; E11.22 Type 2 diabetes mellitus with diabetic chronic kidney disease; E11.51 Type 2 diabetes mellitus with diabetic peripheral angiopathy without gangrene; R56.9 Unspecified convulsions; F03.90 Unspecified dementia, unspecified severity, without behavioral disturbance, psychotic disturbance, mood disturbance, and anxiety; I13.0 Hypertensive heart and chronic kidney disease with heart failure and stage 1 through stage 4 chronic kidney disease, or unspecified chronic kidney disease; I50.9 Heart failure, unspecified; J44.9 Chronic obstructive pulmonary disease, unspecified; J98.11 Atelectasis; N18.9 Chronic kidney disease, unspecified; D64.9 Anemia, unspecified; I25.10 Atherosclerotic heart disease of native coronary artery without angina pectoris; Z16.12 Extended spectrum beta lactamase (ESBL) resistance; Z74.09 Other reduced mobility; Z87.440 Personal history of urinary (tract) infections; Z90.49 Acquired absence of other specified parts of digestive tract; Z95.1 Presence of aortocoronary bypass graft; Z95.5 Presence of coronary angioplasty implant and graft; F32.9 Major depressive disorder, single episode, unspecified; F41.9 Anxiety disorder, unspecified; K29.70 Gastritis, unspecified, without bleeding; K59.00 Constipation, unspecified; K64.9 Unspecified hemorrhoids; R53.1 Weakness; E03.9 Hypothyroidism, unspecified; E78.00 Pure hypercholesterolemia, unspecified; H54.62 Unqualified visual loss, left eye, normal vision right eye; L30.9 Dermatitis, unspecified; M19.90 Unspecified osteoarthritis, unspecified site

== ENCOUNTER 2017-10-19 13:17 | Day surgery (SDC) | payer MEDICAID ==
[2017-10-19 13:48] VITALS: BMI 32.1
[2017-10-19] MEDS ORDERED: Lidocaine 1% Inj (20ml) ONE (15:00)
[2017-10-19 15:26] VITALS: PULSE 71
--- NOTE | 2017-10-19 15:30 | CP.SDSHP ---
Same Day Surgery H & P - History Proposed Procedure: PICC Insertion Pre-Op Diagnosis: IV ABX - Allergies Allergies: Allergies kiwi Allergy (Mild, Verified 10/18/17 18:48) RASH morphine Allergy (Mild, Verified 10/18/17 18:48) RASH Penicillins Allergy (Mild, Verified 10/18/17 18:48) RASH pineapple Allergy (Mild, Verified 10/18/17 18:48) RASH watermelon Allergy (Mild, Verified 10/18/17 18:48) RASH - Physical Exam Vital Signs: Vital Signs 10/19/17 10/19/17 10/19/17 13:23 14:00 15:26 Temperature 97.5 F L 98.7 F Pulse Rate 73 73 71 Respiratory 20 19 Rate Blood Pressure 128/57 L 151/72 H O2 Sat by Pulse 83 L 99 Oximetry - Impression Impression: 77 yo female requiring IV Abx; plan PICC insertion - Date & Time Date: 10/19/17 Time: 15:10 Short Stay Discharge - Short Stay Discharge Admitting Diagnosis/Reason for Visit: UTI Disposition: HOME/ ROUTINE
--- NOTE | 2017-10-19 15:31 | PCM.SURG1 ---
Surgeon's Initial Post Op Note - Surgeon's Notes Surgeon: Jai Kelly MD Hand Silvering Supervisor: None Type of Anesthesia: Local Pre-Operative Diagnosis: needs IV Abx Operative Findings: patent right basilic vein. catheter length: 38 cm. catheter tip: cavoatrial junction Post-Operative Diagnosis: same Operation Performed: RUE PICC Insertion Specimen/Specimens Removed: n/a Estimated Blood Loss: EBL {In ML}: 0 Date of Surgery/Procedure: 10/19/17 Time of Surgery/Procedure: 15:20
[2017-10-19 16:22] VITALS: BP 137/64; RESP 20; TEMP 97.5; O2SAT 96
--- NOTE | 2017-10-20 14:57 | VASCULAR ---
PROCEDURE: PERIPHERALLY INSERTED CENTRAL VENOUS CATHETER INSERTION CLINICAL HISTORY: 77-year-old female requiring penitentiary intravenous antibiotics is referred to Interventional Radiology for PICC insertion. PROCEDURE: 1. Focused ultrasound of the right upper extremity vasculature. 2. Ultrasound-guided access. 3. Insertion of peripherally inserted central venous catheter. 4. Fluoroscopic localization of catheter tip. PRE-PROCEDURE FINDINGS: 1. Patent right basilic vein. POST-PROCEDURE FINDINGS: 1. Placement of 4 Gib[place]tarian single-lumen PICC. 2. Catheter length: 38 cm. 3. Catheter tip at cavoatrial junction. INTERVENTIONAL RADIOLOGIST: Jai Kelly M.D. (the attending was present for the entire procedure) ANESTHESIA: None. MEDICATION: Lidocaine 1% for local subcutaneous analgesia. COMPLICATIONS: None. RADIATION DOSE: Fluoroscopy Time: 39.2 seconds Cumulative Dose: 5.26 mGy PROCEDURE DESCRIPTION AND FINDINGS: The risks, benefits, alternatives and possible complications of the procedure were fully discussed; all questions were answered and informed consent was obtained. The patient was brought into the interventional suite and a pre-procedure 'time-out' was performed. The patient was placed on the fluoroscopy table in the supine position. The right upper extremity was prepped and draped in the usual sterile fashion. Maximum sterile barrier precautions were maintained throughout the entire procedure. Preliminary ultrasound images of the right upper extremity vasculature demonstrate patency of the right basilic vein. Following subcutaneous infiltration of 1% lidocaine for local analgesia, under ultrasound guidance, a 21-gauge needle was advanced into the right basilic vein with real-time visualization of needle entry. The ultrasound images were permanently recorded and submitted to the PACS. A 0.018 guidewire was advanced centrally to the cavoatrial junction. A 4.5 [place]tarian peel-away sheath was advanced over the guidewire. After obtaining length measurement, a 4 [place] single-lumen PICC was placed with the tip of the catheter at the cavoatrial junction. The total length of the catheter is 38 cm. The hub of the PICC was secured to the skin using a sterile adhesive bandage. The patient tolerated the procedure well without immediate post-procedure complications and was transferred back to the floor in stable condition. IMPRESSION: SUCCESSFUL INSERTION OF RIGHT UPPER EXTREMITY PICC. PICC OK TO USE.
== END 2017-10-19 16:20 | disposition home or self-care (01) ==
LOC: H.OPSURG 13:17
PROVIDERS: ATTEND Internal Medicine Pulmonary Disease
DX: N39.0 Urinary tract infection, site not specified (principal); Z88.0 Allergy status to penicillin
CPT/HCPCS: 36569; 76937; 77001; A4310; C1751

== ENCOUNTER 2017-10-25 23:19 | Observation (INO) | payer MEDICAID ==
[2017-10-25 23:19] VITALS: BMI 32.1
--- NOTE | 2017-10-26 00:12 | ED PDOC ---
HPI: Chest Pain Time Seen by Provider: 10/25/17 23:39 Chief Complaint (Nursing): Chest Pain Chief Complaint (Provider): chest pain History Per: Patient, Family History/Exam Limitations: no limitations Onset/Duration Of Symptoms: Hrs (1.5) Current Symptoms Are (Timing): Better Quality: Pressure Associated Symptoms: Dyspnea Additional History Per: Patient, Family Additional Complaint(s): 77 y/o female brought in by EMS for chest pain x 1.5 hours. DAughter states patient was sleeping when pain woke her up, described as midsternal chest "pressure". Daughter states patient was crying due to intensity of pain. Associated shortness of breath (patient on home oxygen 24h). Patient discharged from TCU today for urinary tract infection, pneumonia. Denies fever, cough, congestion, palpitations, abdominal pain, changes in bowel movements, leg pain/swelling. Patient given Nitro SL by , and Aspirin 324mg by EMS, states pain improved upon arrival. Past Medical History Reviewed: Historical Data, Nursing Documentation, Vital Signs Vital Signs: Last Vital Signs Temp 97.7 F 10/28/17 00:38 Pulse 73 10/28/17 00:38 Resp 16 10/28/17 00:38 BP 158/64 H 10/28/17 00:38 Pulse Ox 95 10/28/17 00:38 - Medical History PMH: Anemia, Anxiety, Arthritis, Asthma, Back Problems, Bronchitis, CAD, CHF, COPD, Dementia, Depression, Diabetes, Gastritis, HTN, Hypercholesterolemia, Hyperlipidemia, Hypothyroidism, Peripheral Edema, Pneumonia, Chronic Kidney Disease (mild renal insufficiecy.), Seizures Denies: HIV, Rheumatoid Arthritis - Surgical History Surgical History: CABG (x4), Cholecystectomy, Coronary Stent Denies: Pacemaker - Family History Family History: States: Unknown Family Hx - Home Medications Home Medications: Ambulatory Orders Medication Instructions Recorded Aspirin [Ecotrin] 81 mg PO DAILY 01/12/17 Carvedilol [Coreg] 3.125 mg PO DAILY 01/12/17 Levothyroxine [Synthroid] 100 mcg PO DAILY 01/12/17 Ranolazine [Ranexa] 1,000 mg PO BID 01/12/17 Atorvastatin [Lipitor] 40 mg PO HS 02/01/17 Furosemide [Lasix] 20 mg PO Q48H 03/17/17 ALPRAZolam [Xanax] 0.25 mg PO HS PRN tab 06/16/17 Docusate [Colace] 100 mg PO DAILY PRN 08/30/17 Gabapentin [Neurontin] 100 mg PO BID PRN 08/30/17 Nitroglycerin [Nitrostat] 1 tab SL PRN PRN 10/10/17 Albuterol/Ipratropium [Duoneb 3 3 ml INH RQID #0 neb 10/15/17 mg/0.5 mg (3 ml) UD] Bacitracin OINT 1 applic TOP BID tube 10/15/17 Insulin Lispro Mix 75/25 [HumaLog 15 units SC BID vial 10/15/17 MIX 75/25] Polyethylene Glycol/Polyvinyl 2 drop OU Q4 PRN bottle 10/15/17 [Artificial Tears] - Allergies Allergies/Adverse Reactions: Allergies Allergy/AdvReac Type Severity Reaction Status Date / Time kiwi Allergy Mild RASH Verified 10/18/17 18:48 morphine Allergy Mild RASH Verified 10/18/17 18:48 Penicillins Allergy Mild RASH Verified 10/18/17 18:48 pineapple Allergy Mild RASH Verified 10/18/17 18:48 watermelon Allergy Mild RASH Verified 10/18/17 18:48 RICHARDSON Risk Score for UA/NSTEMI - RICHARDSON Risk Score Age > 64: YES 3 or more CAD Risk Factors: YES Known CAD (Stenosis greater than 50%): YES Aspirin use in past 7 days: YES Severe Angina: NO EKG ST changes greater than 0.5mm: NO Positive Cardiac Marker: NO RICHARDSON Score: 4 Risk %: 20% Curb-65 Severity Score - CURB-65 Severity Score Confusion: No Bun >19mg/dl (>7mmol/L): Yes Respiratory Rate greater than/equal to 30: No Systolic BP <90 or Diastolic BP less than/equal 60mmHg: No Age >64: Yes Curb-65 Score: 2 Percentage 30-day mortality: 6.8% Review of Systems ROS Statement: Except As Marked, All Systems Reviewed And Found Negative Cardiovascular: Positive for: Chest Pain Respiratory: Positive for: Shortness of Breath Physical Exam - Reviewed Nursing Documentation Reviewed: Yes Vital Signs Reviewed: Yes - Physical Exam Appears: Positive for: Well, Non-toxic, No Acute Distress Head Exam: Positive for: ATRAUMATIC, NORMAL INSPECTION, NORMOCEPHALIC Skin: Positive for: Normal Color, Rash (skin breakdown under right breast) Eye Exam: Positive for: Normal appearance ENT: Positive for: Normal ENT Inspection Cardiovascular/Chest: Positive for: Regular Rate, Rhythm Respiratory: Positive for: Crackles Gastrointestinal/Abdominal: Positive for: Distended Back: Positive for: Normal Inspection Extremity: Positive for: Normal ROM Neurologic/Psych: Positive for: Alert, Oriented - Laboratory Results Result Diagrams: 10/27/17 09:00 10/27/17 09:00 - ECG ECG: Positive for: Viewed By Me (reviewed by ED attending) ECG Rhythm: Positive for: Sinus Rhythm O2 Sat by Pulse Oximetry: 98 Pulse Ox Interpretation: Normal - Radiology X-Ray: Viewed By Me X-Ray Interpretation: No Acute Disease - Progress ED Course And Treament: labs, ekg, chest xray CAse discussed with Dr. Oliver for placement in observation telemetry for chest pain, CHF. Recommends cardio consult with Dr. Sujit gibbs dose ordered Disposition - Clinical Impression Clinical Impression: Chest pain, CHF (congestive heart failure) - Patient ED Disposition Is Patient to be Admitted: Yes - Disposition Disposition Time: 02:00 Condition: FAIR
[2017-10-26 00:45] LABS: BASO # 0.1 K/uL (0.0-0.2); BASO % 1.4 % (0.0-2.0); EOS # 0.4 K/uL (0.0-0.7); EOS % 4.1 % (0.0-4.0); HEMOGLOBIN 8.4 g/dL (12.0-16.0); LYMPH # 1.6 K/uL (1.0-4.3); LYMPH % 17.9 % (20.0-40.0); MEAN CELL VOLUME 93.3 fl (81.0-99.0); MEAN CORPUSCULAR HEMOGLOBIN 30.3 pg (27.0-31.0); MEAN CORPUSCULAR HGB CONC 32.5 g/dL (33.0-37.0); MONO # 0.8 K/uL (0.0-0.8); MONO % 8.6 % (0.0-10.0); NEUT # 6.2 K/uL (1.8-7.0); RBC 2.77 Mil/uL (3.80-5.20); RED CELL DISTRIBUTION WIDTH 14.4 % (11.5-14.5); WHITE BLOOD COUNT 9.1 K/uL (4.8-10.8)
[2017-10-26 00:45] LABS: ABG ALLEN TEST YES; ARTERIAL BLOOD GAS HCO3 37.1 mmol/L (21-28); ARTERIAL BLOOD GAS O2 SAT 93.2 % (95-98); ARTERIAL BLOOD GAS PCO2 64 mm/Hg (35-45); ARTERIAL BLOOD GAS PH 7.44 (7.35-7.45); ARTERIAL BLOOD GAS PO2 52 mm/Hg (80-100); ARTERIAL BLOOD GAS TCO2 45.5 mmol/L (22-28)
[2017-10-26 01:05] LABS: ALB/GLOB RATIO 0.8 (1.0-2.1); ALBUMIN 2.9 g/dL (3.5-5.0); ALT/SGPT 26 U/L (9-52); AST/SGOT 26 U/L (14-36); B-TYPE NATRIURETIC PEPTIDE 1060 pg/ml (0-900); BLOOD UREA NITROGEN 25 mg/dl (7-17); CALCIUM 8.8 mg/dL (8.4-10.2); GFR AFRICAN-AMERICAN 52; GFR NON-AFRICAN AMERICAN 43
[2017-10-26] MEDS ORDERED: Levalbuterol 0.63 MG/3 ML Inhal Soln UD ONE (04:58)
[2017-10-26] MEDS ORDERED: Ipratropium 0.02% Inhal Soln (0.5 mg/2.5 ml) UD IH ONE (04:58)
[2017-10-26] MEDS: Levalbuterol 0.63 MG/3 ML Inhal Soln UD INH PRN (05:00)
[2017-10-26] MEDS: Ipratropium 0.02% Inhal Soln (0.5 mg/2.5 ml) UD IH SCH ×2 (05:05→21:31)
[2017-10-26 05:45] LABS: SQUAMOUS EPITHIAL 1 /hpf (0-5); URINE BILIRUBIN NEGATIVE (NEGATIVE); URINE BLOOD NEGATIVE (NEGATIVE); URINE CLARITY CLEAR (Clear); URINE COLOR AMBER (YELLOW); URINE GLUCOSE (UA) >=500 mg/dL (Normal); URINE LEUKOCYTE ESTERASE NEG Leu/uL (Negative); URINE NITRATE POSITIVE (NEGATIVE); URINE PROTEIN 30 mg/dL (NEGATIVE)
[2017-10-26 05:46] LABS: URINE HYALINE CAST 0-2 /hpf (0-2)
[2017-10-26 06:11] LABS: BASO # 0.1 K/uL (0.0-0.2); BASO % 0.8 % (0.0-2.0); EOS # 0.3 K/uL (0.0-0.7); HEMOGLOBIN 8.1 g/dL (12.0-16.0); LYMPH # 1.9 K/uL (1.0-4.3); LYMPH % 25.1 % (20.0-40.0); MEAN CELL VOLUME 93.1 fl (81.0-99.0); MEAN CORPUSCULAR HEMOGLOBIN 30.2 pg (27.0-31.0); MEAN CORPUSCULAR HGB CONC 32.4 g/dL (33.0-37.0); MEAN PLATELET VOLUME 8.1 fl (7.2-11.7); MONO # 0.5 K/uL (0.0-0.8); NEUT # 4.9 K/uL (1.8-7.0); NEUT % 63.1 % (50.0-75.0); RBC 2.7 Mil/uL (3.80-5.20); RED CELL DISTRIBUTION WIDTH 14.3 % (11.5-14.5); WHITE BLOOD COUNT 7.7 K/uL (4.8-10.8)
[2017-10-26] MEDS ORDERED: Insulin Regular 100 units/ml SC STA (06:20)
[2017-10-26] MEDS ORDERED: Nitroglycerin 2% Ointment Foilpak UD TOP ONE ×2 (06:25→18:50)
[2017-10-26] MEDS ORDERED: Insulin Regular 100 units/ml ONE (06:25)
[2017-10-26] MEDS: Nitroglycerin 2% Ointment Foilpak UD TOP SCH ×4 (06:30→23:56)
[2017-10-26 06:47] LABS: ALB/GLOB RATIO 0.8 (1.0-2.1); ALBUMIN 2.9 g/dL (3.5-5.0); CALCIUM 8.9 mg/dL (8.4-10.2)
--- NOTE | 2017-10-26 08:30 | CARD ---
APPROVED REPORT EKG Measurement Heart [id number] <Conclusion> Normal sinus rhythm Normal ECG
[2017-10-26] MEDS ORDERED: Insulin Regular 100 units/ml SC ONE (08:55)
[2017-10-26] MEDS ORDERED: Patient's Own Med (Ranolazine [Ranexa] 1,000 MG) PO SCH (09:00)
[2017-10-26] MEDS: Levothyroxine 100 MCG TAB PO SCH (09:08)
--- NOTE | 2017-10-26 11:06 | RAD ---
HISTORY: Chest pain. COMPARISON: 10/19/2017 FINDINGS: LUNGS: Resolved right lower lobe infiltrate PLEURA: Pleural effusion identified previously on the left is no longer apparent CARDIOVASCULAR: No radiographic findings to suggest acute or significant cardiovascular disease. Incidental Finding(s): Postoperative changes related to sternotomy. OSSEOUS STRUCTURES: No significant abnormalities. VISUALIZED UPPER ABDOMEN: Normal. OTHER FINDINGS: None. IMPRESSION: No active disease.
[2017-10-26] MEDS: Insulin Lispro Mix 75/25 100 units/ml (HumaLog) 10ml SC SCH ×2 (13:13→23:52)
--- NOTE | 2017-10-26 17:39 | CP.PCM.CON ---
History of Present Illness - History of Present Illness History of Present Illness: I was requested by Dr. Oliver to evaluate Mrs. Bg Crouch for chest pain. The patient is seen in the ER in the presence of her daughter who participated in the history. The patient was recently discharged yesterday from TCU yesterday after a 5 day hospitalization. While at home, she complained of mid- substernal chest pain this morning. Her administered 2 sublingual nitroglycerin with eventual resolution of the chest pain. The patient had a recent cardiac evaluation here at [facility] where she had a nuclear scan and a subsequent cardiac catheterization performed by Dr. Redi at [facility] ( I will obtain a copy of the results for the records). The patient has an extensive cardiac history including CAD/CABG, hypertension, diabetes mellitus, and hyperlipidemia. Review of Systems - Constitutional Constitutional: As Per HPI - EENT Eyes: As Per HPI Ears: As Per HPI Nose/Mouth/Throat: As Per HPI - Breasts Breasts: As Per HPI - Cardiovascular Cardiovascular: Chest Pain at Rest, Dyspnea - Gastrointestinal Gastrointestinal: As Per HPI, Bloating - Genitourinary Genitourinary: As Per HPI - Reproductive: Female Reproductive:Female: As Per HPI - Menstruation Menstruation: As Per HPI - Musculoskeletal Musculoskeletal: Back Pain - Integumentary Integumentary: As Per HPI Past Patient History - Infectious Disease Hx of Infectious Diseases: None - Tetanus Immunizations Tetanus Immunization: Unknown - Past Medical History & Family History Past Medical History?: Yes - Past Social History Smoking Status: Never Smoked - CARDIAC Hx Congestive Heart Failure: Yes Hx Hypercholesterolemia: Yes Hx Hypertension: Yes Hx Pacemaker: No Hx Peripheral Edema: Yes - PULMONARY Hx Asthma: Yes Hx Bronchitis: Yes Hx Chronic Obstructive Pulmonary Disease (COPD): Yes Hx Pneumonia: Yes - NEUROLOGICAL Hx Dementia: Yes Hx Seizures: Yes - HEENT Hx HEENT Problems: Yes Hx Blind: Yes (left eye) Other/Comment: Hard of hear R ear., left eye blind - RENAL Hx Chronic Kidney Disease: Yes (mild renal insufficiecy.) - ENDOCRINE/METABOLIC Hx Hypothyroidism: Yes - HEMATOLOGICAL/ONCOLOGICAL Hx Anemia: Yes Hx Human Immunodeficiency Virus (HIV): No - INTEGUMENTARY Hx Dermatological Problems: No - MUSCULOSKELETAL/RHEUMATOLOGICAL Hx Arthritis: Yes Hx Rheumatoid Arthritis: No - GASTROINTESTINAL Hx Gastritis: Yes - GENITOURINARY/GYNECOLOGICAL Hx Genitourinary Disorders: Yes Hx Incontinence: Yes Hx Urinary Tract Infection: Yes - PSYCHIATRIC Hx Anxiety: Yes Hx Depression: Yes - SURGICAL HISTORY Hx Cholecystectomy: Yes Hx Coronary Artery Bypass Graft: Yes (x4) Hx Coronary Stent: Yes - ANESTHESIA Hx Anesthesia: Yes Hx Anesthesia Reactions: No Hx Malignant Hyperthermia: No Meds Allergies/Adverse Reactions: Allergies Allergy/AdvReac Type Severity Reaction Status Date / Time kiwi Allergy Mild RASH Verified 10/18/17 18:48 morphine Allergy Mild RASH Verified 10/18/17 18:48 Penicillins Allergy Mild RASH Verified 10/18/17 18:48 pineapple Allergy Mild RASH Verified 10/18/17 18:48 watermelon Allergy Mild RASH Verified 10/18/17 18:48 - Medications Medications: Current Medications Alprazolam (Xanax) 0.25 mg PO HS PRN PRN Reason: Insomnia Stop: 11/02/17 03:56 Artificial Tears (Artificial Tears) 2 drop OU Q4 PRN PRN Reason: Dry eyes Aspirin (Aspirin) 325 mg PO DAILY [facility] Last Admin: 10/26/17 09:07 Dose: 325 mg Atorvastatin Calcium (Lipitor) 40 mg PO HS [facility] Bacitracin (Bacitracin Oint) 1 applic TOP BID [facility] Carvedilol (Coreg) 6.25 mg PO Q12 [facility] Docusate Sodium (Colace) 100 mg PO DAILY PRN PRN Reason: Constipation Furosemide (Lasix) 20 mg IVP DAILY [facility] Gabapentin (Neurontin) 100 mg PO BID PRN PRN Reason: Pain, moderate (4-7) Home Med (Ranolazine [Ranexa]) 1,000 mg PO BID [facility] Insulin Lispro Protam/Lispro Human (Humalog Mix 75/25) 15 units SC BID [facility] Last Admin: 10/26/17 13:13 Dose: Not Given Ipratropium [place] (Atrovent) 0.5 mg IH RQ6 [facility] Last Admin: 10/26/17 05:05 Dose: 0.5 mg Levalbuterol HCl (Xopenex) 0.63 mg INH RQ8 PRN PRN Reason: Shortness of Breath Last Admin: 10/26/17 05:00 Dose: 0.63 mg Levothyroxine Sodium (Synthroid) 100 mcg PO DAILY@0630 [facility] Last Admin: 10/26/17 09:08 Dose: 100 mcg Nitroglycerin (Nitrostat Sl Tab) 0.4 mg SL Q5MIN PRN PRN Reason: CHEST, ANGINAL DISCOMFORT Nitroglycerin (Nitro-Bid 2% Oint) 1 ea TOP Q6H [facility] Last Admin: 10/26/17 12:36 Dose: Not Given Physical Exam - Constitutional Appears: Non-toxic, No Acute Distress - Eye Exam Eye Exam: EOMI, PERRL - ENT Exam ENT Exam: Mucous Membranes Moist - Neck Exam Neck exam: Positive for: Normal Inspection - Respiratory Exam Respiratory Exam: Decreased Breath Sounds - Cardiovascular Exam Cardiovascular Exam: REGULAR RHYTHM, +S1, +S2, Systolic Murmur - GI/Abdominal Exam GI & Abdominal Exam: Normal Bowel Sounds - Rectal Exam Rectal Exam: Deferred - Extremities Exam Additional comments: left TMA. - Neurological Exam Neurological exam: Oriented x3 - Skin Skin Exam: Intact Results - Vital Signs Recent Vital Signs: Last Vital Signs Temp 97.4 F L 10/26/17 05:48 Pulse 65 10/26/17 12:36 Resp 19 10/26/17 08:00 BP 127/57 L 10/26/17 12:36 Pulse Ox 97 10/26/17 08:00 - Labs Result Diagrams: 10/26/17 05:45 10/26/17 05:45 Labs: Laboratory Results - last 24 hr 10/26/17 10/26/17 10/26/17 00:30 00:43 00:43 WBC 9.1 RBC 2.77 L Hgb 8.4 L Hct 25.8 L MCV 93.3 MCH 30.3 MCHC 32.5 L RDW 14.4 Plt Count 251 MPV 8.0 Neut % (Auto) 68.0 Lymph % (Auto) 17.9 L [place] % (Auto) 8.6 Eos % (Auto) 4.1 H Baso % (Auto) 1.4 Neut # 6.2 Lymph # 1.6 [place] # 0.8 Eos # 0.4 Baso # 0.1 pCO2 64 H pO2 52 L HCO3 37.1 H ABG pH 7.44 ABG Total CO2 45.5 H ABG O2 Saturation 93.2 L ABG Base Excess 16.0 H August Test Yes ABG Potassium 4.6 A-a O2 Difference 68.0 Sodium 135.0 135 Chloride 97.0 L 92 L Glucose 411 H* D Lactate 0.6 L FiO2 28.0 Crit Value Called To Miguel acosta pz Crit Value Called By 333 Crit Value Read Back Y Blood Gas Notified Time 45 Potassium 4.6 Carbon Dioxide 40 H* D Anion Gap 8 L BUN 25 H Creatinine 1.2 Est GFR ( Amer) 52 Est GFR (Non-Af Amer) 43 POC Glucose (mg/dL) Random Glucose 397 H Calcium 8.8 Total Bilirubin 1.0 AST 26 ALT 26 Alkaline Phosphatase 165 H D Troponin I < 0.0120 NT-Pro-B Natriuret Pep 1060 H Total Protein 6.4 Albumin 2.9 L Globulin 3.5 Albumin/Globulin Ratio 0.8 L Arterial Blood Potassium 4.6 Urine Color Urine Clarity Urine pH Ur Specific [place] Urine Protein Urine Glucose (UA) Urine Ketones Urine Blood Urine Nitrate Urine Bilirubin Urine Urobilinogen Ur Leukocyte Esterase Urine RBC (Auto) Urine Microscopic WBC Ur Squamous Epith Cells Hyaline Casts 10/26/17 10/26/17 10/26/17 05:35 05:45 05:45 WBC 7.7 RBC 2.70 L Hgb 8.1 L Hct 25.2 L MCV 93.1 MCH 30.2 MCHC 32.4 L RDW 14.3 Plt Count 239 MPV 8.1 Neut % (Auto) 63.1 Lymph % (Auto) 25.1 [place] % (Auto) 7.0 Eos % (Auto) 4.0 Baso % (Auto) 0.8 Neut # 4.9 Lymph # 1.9 [place] # 0.5 Eos # 0.3 Baso # 0.1 pCO2 pO2 HCO3 ABG pH ABG Total CO2 ABG O2 Saturation ABG Base Excess August Test ABG Potassium A-a O2 Difference Sodium 136 Chloride 92 L Glucose Lactate FiO2 Crit Value Called To Crit Value Called By Crit Value Read Back Blood Gas Notified Time Potassium 4.4 Carbon Dioxide 39 H Anion Gap 9 L BUN 26 H Creatinine 1.2 Est GFR ( Amer) 52 Est GFR (Non-Af Amer) 43 POC Glucose (mg/dL) Random Glucose 479 H* D Calcium 8.9 Total Bilirubin 0.9 AST 20 ALT 21 Alkaline Phosphatase 165 H Troponin I NT-Pro-B Natriuret Pep Total Protein 6.4 Albumin 2.9 L Globulin 3.5 Albumin/Globulin Ratio 0.8 L Arterial Blood Potassium Urine Color Sarah Urine Clarity Clear Urine pH 6.0 Ur Specific [place] 1.009 Urine Protein 30 Urine Glucose (UA) >=500 Urine Ketones Negative Urine Blood Negative Urine Nitrate Positive H Urine Bilirubin Negative Urine Urobilinogen 4.0 H Ur Leukocyte Esterase Neg Urine RBC (Auto) 1 Urine Microscopic WBC 1 Ur Squamous Epith Cells 1 Hyaline Casts 0-2 10/26/17 10/26/17 10/26/17 05:58 09:30 16:41 WBC RBC Hgb Hct MCV MCH MCHC RDW Plt Count MPV Neut % (Auto) Lymph % (Auto) [place] % (Auto) Eos % (Auto) Baso % (Auto) Neut # Lymph # [place] # Eos # Baso # pCO2 pO2 HCO3 ABG pH ABG Total CO2 ABG O2 Saturation ABG Base Excess August Test ABG Potassium A-a O2 Difference Sodium Chloride Glucose Lactate FiO2 Crit Value Called To Crit Value Called By Crit Value Read Back Blood Gas Notified Time Potassium Carbon Dioxide Anion Gap BUN Creatinine Est GFR ( Amer) Est GFR (Non-Af Amer) POC Glucose (mg/dL) 496 H* 233 H Random Glucose Calcium Total Bilirubin AST ALT Alkaline Phosphatase Troponin I < 0.0120 NT-Pro-B Natriuret Pep Total Protein Albumin Globulin Albumin/Globulin Ratio Arterial Blood Potassium Urine Color Urine Clarity Urine pH Ur Specific [place] Urine Protein Urine Glucose (UA) Urine Ketones Urine Blood Urine Nitrate Urine Bilirubin Urine Urobilinogen Ur Leukocyte Esterase Urine RBC (Auto) Urine Microscopic WBC Ur Squamous Epith Cells Hyaline Casts Assessment & Plan - Assessment and Plan (Free Text) Assessment: 1. Chest pain syndrome - atypical for ACS. 2. History of CAD s/p CABG and PCI. 3. Hypertension. 4. Diabetes mellitus. 5. Hyperlipidemia. Plan: 1. Serial cardiac enzymes. 2. Monitor hemoglobin. 3. Maximize medical therapy. 4. Will review recent cardiac cath. - Date & Time Date: 10/26/17 Time: 14:10
[2017-10-26] MEDS: Bacitracin OINT 15GM TOP SCH (18:51)
[2017-10-26] MEDS: Artificial Tears Opht Soln OU PRN (23:51)
[2017-10-27] MEDS: Ipratropium 0.02% Inhal Soln (0.5 mg/2.5 ml) UD IH SCH ×4 (02:35→19:20)
[2017-10-27] MEDS: Nitroglycerin 2% Ointment Foilpak UD TOP SCH ×4 (04:48→21:53)
[2017-10-27] MEDS: Artificial Tears Opht Soln OU PRN (06:54)
[2017-10-27] MEDS: Levothyroxine 100 MCG TAB PO SCH (07:10)
[2017-10-27] MEDS: Bacitracin OINT 15GM TOP SCH ×2 (09:38→16:55)
[2017-10-27] MEDS: Insulin Lispro Mix 75/25 100 units/ml (HumaLog) 10ml SC SCH ×2 (09:42→16:54)
[2017-10-27 09:45] LABS: BASO # 0.1 K/uL (0.0-0.2); BASO % 0.6 % (0.0-2.0); EOS # 0.4 K/uL (0.0-0.7); EOS % 4.5 % (0.0-4.0); HEMOGLOBIN 7.7 g/dL (12.0-16.0); LYMPH # 1.6 K/uL (1.0-4.3); LYMPH % 17.5 % (20.0-40.0); MEAN CELL VOLUME 92.8 fl (81.0-99.0); MEAN CORPUSCULAR HEMOGLOBIN 30.4 pg (27.0-31.0); MEAN CORPUSCULAR HGB CONC 32.8 g/dL (33.0-37.0); MEAN PLATELET VOLUME 8.1 fl (7.2-11.7); MONO # 0.6 K/uL (0.0-0.8); MONO % 6.7 % (0.0-10.0); NEUT # 6.6 K/uL (1.8-7.0); NEUT % 70.7 % (50.0-75.0); NRBC % 0.1 % (0.0-0.0); RBC 2.55 Mil/uL (3.80-5.20); RED CELL DISTRIBUTION WIDTH 14.6 % (11.5-14.5); WHITE BLOOD COUNT 9.4 K/uL (4.8-10.8)
[2017-10-27 10:03] LABS: PARTIAL THROMBOPLASTIN TIME 31.8 Seconds (25.6-37.1); PROTHROMBIN TIME 11.3 Seconds (9.8-13.1)
[2017-10-27 10:40] LABS: IRON 61 ug/dL (37-170)
[2017-10-27 10:49] LABS: % IRON SATURATION 32 % (20-55); TOTAL IRON BINDING CAPACITY 195 ug/dL (250-450)
--- NOTE | 2017-10-27 13:51 | CP.PCM.HP ---
History of Present Illness - History of Present Illness History of Present Illness: CC: Chest pain. 77 y/o F, Hx of HTN, CAD, COPD, CABG, brought by EMS to ER [facility], [place], to be evaluated for Chest pain, onset 1 hr [employer], As per , Pt had 2 Ntg s/l with some relief. Pt was discharged from [facility] TCU on 10/25/17 in the afternoon, there after at 23; 29 hrs, Pt returned to hospital c/o sudden onset of Mid-Substernal chest pain that woke her up from sleeping, pain was moderate intensity 6:10, non radiated, but associated to Dyspnea, also was given ASA by EMS while in the field. Worsening symptoms: While on evaluation: BS: 397 to 496, Hgb 8.4, RBC: 2.77 HCT : 25.8 pCO2 64, pO2 52 Aggravated factor: Poor historian Denied: Fever, chills, n/v/d, abdominal pain, syncope, dizziness, LOC, numbness , sick contact. CXR Shows: No active disease. EKG: Normal sinus rhythm. Present on Admission - Present on Admission Any Indicators Present on Admission: No Review of Systems - Constitutional Constitutional: Weakness (generalized) - EENT Eyes: Loss of Vision (L eye) Ears: Decreased Hearing (R ear) Nose/Mouth/Throat: Other (negative) - Cardiovascular Cardiovascular: Chest Pain, Chest Pain at Rest, Dyspnea - Respiratory Respiratory: Dyspnea - Gastrointestinal Gastrointestinal: Constipation (Hx.) - Genitourinary Genitourinary: Urinary Incontinence - Musculoskeletal Musculoskeletal: Arthralgias - Integumentary Integumentary: Other (negative) - Neurological Neurological: Confusion - Psychiatric Psychiatric: Anxiety - Endocrine Endocrine: Other (negative) - Hematologic/Lymphatic Hematologic: Other (anemia) Past Patient History - Infectious Disease Hx of Infectious Diseases: None - Tetanus Immunizations Tetanus Immunization: Unknown - Past Medical History & Family History Past Medical History?: Yes Pertinent Family History: Unknown - Past Social History Smoking Status: Never Smoked Alcohol: None Drugs: Denies Home Situation {Lives}: With Family - CARDIAC Hx Cardiac Disorders: Yes Hx Congestive Heart Failure: Yes Hx Hypercholesterolemia: Yes Hx Hypertension: Yes Hx Pacemaker: No Hx Peripheral Edema: Yes - PULMONARY Hx Respiratory Disorders: Yes Hx Asthma: Yes Hx Bronchitis: Yes Hx Chronic Obstructive Pulmonary Disease (COPD): Yes Hx Pneumonia: Yes - NEUROLOGICAL Hx Neurological Disorder: Yes Hx Dementia: Yes Hx Seizures: Yes - HEENT Hx HEENT Problems: Yes Hx Blind: Yes (left eye) Other/Comment: Hard of hear R ear., left eye blind - RENAL Hx Chronic Kidney Disease: Yes (mild renal insufficiecy.) - ENDOCRINE/METABOLIC Hx Endocrine Disorders: Yes Hx Hypothyroidism: Yes - HEMATOLOGICAL/ONCOLOGICAL Hx Blood Disorders: Yes Hx Anemia: Yes Hx Human Immunodeficiency Virus (HIV): No - INTEGUMENTARY Hx Dermatological Problems: No - MUSCULOSKELETAL/RHEUMATOLOGICAL Hx Musculoskeletal Disorders: Yes Hx Arthritis: Yes Hx Falls: No Hx Rheumatoid Arthritis: No - GASTROINTESTINAL Hx Gastrointestinal Disorders: Yes Hx Gastritis: Yes - GENITOURINARY/GYNECOLOGICAL Hx Genitourinary Disorders: Yes Hx Incontinence: Yes Hx Urinary Tract Infection: Yes - PSYCHIATRIC Hx Psychophysiologic Disorder: Yes Hx Anxiety: Yes Hx Depression: Yes Hx Substance Use: No - SURGICAL HISTORY Hx Surgeries: Yes Hx Cholecystectomy: Yes Hx Coronary Artery Bypass Graft: Yes (x4) Hx Coronary Stent: Yes - ANESTHESIA Hx Anesthesia: Yes Hx Anesthesia Reactions: No Hx Malignant Hyperthermia: No Meds Allergies/Adverse Reactions: Allergies Allergy/AdvReac Type Severity Reaction Status Date / Time kiwi Allergy Mild RASH Verified 10/18/17 18:48 morphine Allergy Mild RASH Verified 10/18/17 18:48 Penicillins Allergy Mild RASH Verified 10/18/17 18:48 pineapple Allergy Mild RASH Verified 10/18/17 18:48 watermelon Allergy Mild RASH Verified 10/18/17 18:48 Physical Exam - Constitutional Appears: Chronically Ill - Head Exam Head Exam: NORMAL INSPECTION - Eye Exam Eye Exam: PERRL (R eye, L eye blind) - ENT Exam ENT Exam: Normal Exam Additional comments: Hard of hearing R ear - Neck Exam Neck exam: Positive for: Normal Inspection - Respiratory Exam Respiratory Exam: Decreased Breath Sounds (at bases) - Cardiovascular Exam Cardiovascular Exam: REGULAR RHYTHM, Systolic Murmur (2/6 LSB) - GI/Abdominal Exam GI & Abdominal Exam: Normal Bowel Sounds, Soft - Extremities Exam Additional comments: L TMA - Back Exam Back exam: tenderness (MILD) - Neurological Exam Neurological exam: Alert Additional comments: Ox2, confused, follows commands, generalized weakness. - Psychiatric Exam Psychiatric exam: Anxious - Skin Skin Exam: Warm Additional comments: Excoriation under R breast. Results - Vital Signs Recent Vital Signs: Last Vital Signs Temp 97.4 F L 10/27/17 12:00 Pulse 71 10/27/17 12:00 Resp 18 10/27/17 12:00 BP 109/63 10/27/17 12:00 Pulse Ox 95 10/27/17 12:00 reviewed Cheryl - Labs Result Diagrams: 10/28/17 04:25 10/28/17 04:25 Labs: Laboratory Results - last 24 hr 10/26/17 10/26/17 10/26/17 16:41 17:10 23:03 WBC RBC Hgb Hct MCV MCH MCHC RDW Plt Count MPV Neut % (Auto) Lymph % (Auto) [place] % (Auto) Eos % (Auto) Baso % (Auto) Neut # (Auto) Lymph # (Auto) [place] # (Auto) Eos # (Auto) Baso # (Auto) Retic Count PT INR APTT Sodium Potassium Chloride Carbon Dioxide Anion Gap BUN Creatinine Est GFR ( Amer) Est GFR (Non-Af Amer) POC Glucose (mg/dL) 233 H 341 H Random Glucose Calcium Iron TIBC % Saturation Ferritin Troponin I < 0.0120 Vitamin B12 10/27/17 10/27/17 10/27/17 05:49 09:00 09:00 WBC 9.4 RBC 2.55 L Hgb 7.7 L Hct 23.6 L MCV 92.8 MCH 30.4 MCHC 32.8 L RDW 14.6 H Plt Count 250 MPV 8.1 Neut % (Auto) 70.7 Lymph % (Auto) 17.5 L [place] % (Auto) 6.7 Eos % (Auto) 4.5 H Baso % (Auto) 0.6 Neut # (Auto) 6.6 Lymph # (Auto) 1.6 [place] # (Auto) 0.6 Eos # (Auto) 0.4 Baso # (Auto) 0.1 Retic Count 3.0 H PT INR APTT Sodium 137 Potassium 4.1 Chloride 92 L Carbon Dioxide 42 H* Anion Gap 7 L BUN 25 H Creatinine 1.3 H Est GFR ( Amer) 48 Est GFR (Non-Af Amer) 40 POC Glucose (mg/dL) 197 H Random Glucose 237 H Calcium 9.0 Iron TIBC % Saturation Ferritin 326.0 H Troponin I Vitamin B12 467 10/27/17 10/27/17 10/27/17 09:00 09:00 10:50 WBC RBC Hgb Hct MCV MCH MCHC RDW Plt Count MPV Neut % (Auto) Lymph % (Auto) [place] % (Auto) Eos % (Auto) Baso % (Auto) Neut # (Auto) Lymph # (Auto) [place] # (Auto) Eos # (Auto) Baso # (Auto) Retic Count PT 11.3 INR 1.0 APTT 31.8 Sodium Potassium Chloride Carbon Dioxide Anion Gap BUN Creatinine Est GFR ( Amer) Est GFR (Non-Af Amer) POC Glucose (mg/dL) 306 H Random Glucose Calcium Iron 61 TIBC 195 L % Saturation 32 Ferritin Troponin I Vitamin B12 reviewed J.P. - EKG Data EKG comments: reviewed J.P. - Imaging and Cardiology Chest x-ray Status: Report reviewed by me (Cheryl) Assessment & Plan (1) Chest pain Status: Acute Priority: High (2) Type 2 diabetes mellitus with hyperglycemia Status: Chronic Priority: High (3) CAD (coronary artery disease) Status: Acute Priority: Medium (4) COPD (chronic obstructive pulmonary disease) Status: Chronic Priority: Medium (5) HTN (hypertension) Status: Acute (6) Hx of CABG Status: Chronic Priority: Medium (7) Osteoarthritis Status: Chronic Priority: Medium (8) Anxiety Status: Chronic Priority: Medium (9) Hypothyroidism Status: Chronic Priority: Medium (10) Chronic low back pain Status: Chronic Priority: Medium (11) Generalized weakness Status: Chronic Priority: High (12) Hypercholesterolemia Status: Chronic Priority: Low (13) Anemia Status: Acute - Assessment and Plan (Free Text) Plan: Pt was seen by Cardiology, Imp: CP Syndrome, Atypical for ACS. F/U Occult blood stool, continue Coreg, Lasix, Ntg s/l, Xopenex, Atrovent, Humalog Mix 75/ 25 and rest of Tx. Cardiology consult appreciated. GI consult and Wound care consult., transfuse 2 U PRBC , f/u CBC post transfusion - Date & Time Date: 10/27/17 Time: 10:20
[2017-10-28] MEDS: Ipratropium 0.02% Inhal Soln (0.5 mg/2.5 ml) UD IH SCH ×3 (01:00→14:22)
--- NOTE | 2017-10-28 02:56 | CON ---
DATE: 10/27/2017 REASON FOR CONSULTATION: Anemia. HISTORY OF PRESENT ILLNESS: This is a 77-year-old female with history as above and chest pain. Basically, she woke up from sleeping with some pressure, epigastric discomfort. The patient has a chronic history, also has shortness of breath for UTI. Denies any hematemesis or hematochezia. She is complaining of some constipation. Otherwise lying in bed comfortably, in no apparent distress. PAST MEDICAL HISTORY: As above. PAST SURGICAL HISTORY: As above. MEDICATIONS: Have been reviewed. REVIEW OF SYSTEMS: All other systems have been reviewed and negative apart from the HPI. PHYSICAL EXAMINATION: VITAL SIGNS: In the hospital are grossly unremarkable. GENERAL: A pleasant elderly-appearing female, lying in bed comfortably, in no apparent distress. HEENT: Head normocephalic, atraumatic. Eyes: Pupils are equally reactive to light bilaterally. No conjunctival pallor or icterus. NECK: Supple. Normal range of motion. No lymphadenopathy appreciated. LUNGS: Coarse breath sounds bilaterally. HEART: S1 and S2, regular rate and rhythm. No murmurs appreciated. ABDOMEN: Soft, nontender. Bowel sounds present. No rebound, no guarding. EXTREMITIES: Pulses present bilaterally. SKIN: Warm, dry and intact. NEUROLOGIC: A and O x3. LABORATORY DATA: Reviewed. WBC is 9.4, hemoglobin 11.7, hematocrit 33.2, platelet count is normal. INR 1.0. Blood sugar of 411, CO2 is 42. BNP is over 1000. Positive nitrites in the urine. ASSESSMENT AND PLAN: This is a 77-year-old female with congestive heart failure and now chest pain. From a GI standpoint, the anemia appears to be chronic, no active evidence of bleeding. I will discuss with them which can be done as an outpatient. Cardiac at this point. Thank you for the consult. Jeremie Casanova MD/ PhD cc:
[2017-10-28] MEDS: Nitroglycerin 2% Ointment Foilpak UD TOP SCH ×3 (05:30→18:20)
[2017-10-28 05:36] LABS: HEMOGLOBIN 10.2 g/dL (12.0-16.0); MEAN CELL VOLUME 91.9 fl (81.0-99.0); MEAN CORPUSCULAR HEMOGLOBIN 30.3 pg (27.0-31.0); RBC 3.36 Mil/uL (3.80-5.20); RED CELL DISTRIBUTION WIDTH 14.6 % (11.5-14.5); WHITE BLOOD COUNT 9.1 K/uL (4.8-10.8)
[2017-10-28 05:40] LABS: CALCIUM 8.9 mg/dL (8.4-10.2)
[2017-10-28] MEDS: Levothyroxine 100 MCG TAB PO SCH (06:14)
[2017-10-28] MEDS: Levalbuterol 0.63 MG/3 ML Inhal Soln UD INH PRN (07:57)
[2017-10-28] MEDS: Bacitracin OINT 15GM TOP SCH ×2 (09:34→09:35)
[2017-10-28] MEDS: Insulin Lispro Mix 75/25 100 units/ml (HumaLog) 10ml SC SCH ×2 (09:35→17:36)
--- NOTE | 2017-10-28 10:03 | CARD ---
APPROVED REPORT EKG Measurement Heart [id number] IL [id number] <Conclusion> Normal sinus rhythm Nonspecific T wave abnormality Abnormal ECG
[2017-10-28 12:02] LABS: ABG ALLEN TEST YES; ARTERIAL BLOOD GAS HCO3 36.9 mmol/L (21-28); ARTERIAL BLOOD GAS O2 CAPACITY 15.3 mL/dL (16-24); ARTERIAL BLOOD GAS O2 CONTENT 14.6 ML/dL (15-23); ARTERIAL BLOOD GAS O2 SAT 95.7 % (95-98); ARTERIAL BLOOD GAS PCO2 62 mm/Hg (35-45); ARTERIAL BLOOD GAS PH 7.44 (7.35-7.45); ARTERIAL BLOOD GAS PO2 83 mm/Hg (80-100)
--- NOTE | 2017-10-28 14:38 | PQF GENQUE ---
Dr. Oliver, Please specify the type and acuity of heart failure in your progress notes: if known 1. TYPE: Combined systolic and diastolic Heart failure with reduced ejection fraction and diastolic dysfunction Diastolic HFpEF Systolic HFrEF Left heart failure Right heart failure Right heart failure due to left heart failure High Output failure End stage heart failure Other (please specify) Clinically unable to determine Unknown 2. ACUITY: Acute Chronic Acute on chronic Other (please specify) Clinically unable to determine Unknown CXR: Impression: No active disease. Pro BNP:1060 ER: Clinical Impression :Chest pain, CHF (congestive heart failure) Admission order: Admitting dx: Chest Pain,CHF Coreg q 12 hrs., Lasix IV stat in the ER and Lasix IV daily H and P: Pt was discharged from [facility] on 10/25/17 in the afternoon, there after at 23;29 hrs, Pt returned to hospital c/o sudden onset of Mid-Substernal chest pain that woke her up from sleeping, pain was moderate intensity 6:10, non radiated, but associated to Dyspnea, also was given ASA by EMS while in the field. Worsening symptoms: While on evaluation: BS: 397 to 496, Hgb 8.4, RBC: 2.77 HCT : 25.8 pCO2 64, pO2 52 ROS:Respiratory: Dyspnea Hx Congestive Heart Failure: Yes Hx Hypercholesterolemia: Yes Hx Hypertension: Yes Assessment Plan : (1) Chest pain Status: Acute Priority: High (2) Type 2 diabetes mellitus with hyperglycemia Status: Chronic Priority: High (3) CAD (coronary artery disease) Status: Acute Priority: Medium (4) COPD (chronic obstructive pulmonary disease) Status: Chronic Priority: Medium (5) HTN (hypertension) Status: Acute (6) Hx of CABG Status: Chronic Priority: Medium (7) Osteoarthritis Status: Chronic Priority: Medium (8) Anxiety Status: Chronic Priority: Medium (9) Hypothyroidism Status: Chronic Priority: Medium (10) Chronic low back pain Status: Chronic Priority: Medium (11) Generalized weakness Status: Chronic Priority: High (12) Hypercholesterolemia Status: Chronic Priority: Low (13) Anemia Status: Acute Cardiology consult: Assessment: 1. Chest pain syndrome - atypical for ACS. 2. History of CAD s/p CABG and PCI. 3. Hypertension. 4. Diabetes mellitus. 5. Hyperlipidemia. Plan: 1. Serial cardiac enzymes. 2. Monitor hemoglobin. 3. Maximize medical therapy. 4. Will review recent cardiac cath. This form is a permanent part of the medical record Clarification of your documentation is requested to better reflect the severity of illness and intensity of treatment of your patient. Indicators present [] Specify: [] [] Specify: [] [] Specify: [] [] Specify: [] Location in the medical record that reflects the above clinical findings: [] Treatment Provided: [] PHYSICIAN'S RESPONSE Based on your medical judgment of the clinical indicators outlined above please clarify the following: [] Practitioner response [] If unable to determine, please check the box, sign and date. Present On Admission (POA) Indicator: [] Present at the time of admission [] Not present at the time of admission [] Clinically Undetermined In responding to this query, please exercise your independent professional judgment. The fact that a question is asked does not imply that any particular answer is desired or expected. Thank you for your clarification on this documentation. If you have any questions please call. * Thank you, Viji Lopez RN ext. #[phone] MTDD
[2017-10-28 16:05] VITALS: BP 136/66; PULSE 65; RESP 17; O2SAT 95
--- NOTE | 2017-10-28 16:19 | CP.PCM.PN ---
Objective - Vital Signs/Intake and Output Vital Signs (last 24 hours): Temp Pulse Resp BP Pulse Ox 96.7 F L 65 17 136/66 95 10/28/17 16:04 10/28/17 16:04 10/28/17 16:04 10/28/17 16:04 10/28/17 16:04 - Medications Medications: Current Medications Alprazolam (Xanax) 0.25 mg PO HS PRN PRN Reason: Insomnia Stop: 11/02/17 03:56 Last Admin: 10/28/17 00:52 Dose: 0.25 mg Artificial Tears (Artificial Tears) 2 drop OU Q4 PRN PRN Reason: Dry eyes Last Admin: 10/27/17 06:54 Dose: 2 drop Aspirin (Aspirin) 325 mg PO DAILY [facility] Last Admin: 10/28/17 09:40 Dose: 325 mg Atorvastatin Calcium (Lipitor) 40 mg PO HS [facility] Last Admin: 10/27/17 21:07 Dose: 40 mg Bacitracin (Bacitracin Oint) 1 applic TOP BID [facility] Last Admin: 10/28/17 09:35 Dose: 1 applic Carvedilol (Coreg) 6.25 mg PO Q12 [facility] Last Admin: 10/28/17 09:35 Dose: 6.25 mg Clotrimazole (Lotrimin 1% Cream) 1 applic TOP BID [facility] Docusate Sodium (Colace) 100 mg PO DAILY PRN PRN Reason: Constipation Last Admin: 10/27/17 16:56 Dose: 100 mg Furosemide (Lasix) 20 mg IVP DAILY [facility] Last Admin: 10/28/17 09:41 Dose: 20 mg Gabapentin (Neurontin) 100 mg PO BID PRN PRN Reason: Pain, moderate (4-7) Last Admin: 10/28/17 09:33 Dose: 100 mg Home Med (Ranolazine [Ranexa]) 1,000 mg PO BID [facility] Insulin Lispro Protam/Lispro Human (Humalog Mix 75/25) 15 units SC BID [facility] Last Admin: 10/28/17 09:35 Dose: 15 units Ipratropium [place] (Atrovent) 0.5 mg IH RQ6 [facility] Last Admin: 10/28/17 14:22 Dose: 0.5 mg Levalbuterol HCl (Xopenex) 0.63 mg INH RQ8 PRN PRN Reason: Shortness of Breath Last Admin: 10/28/17 07:57 Dose: 0.63 mg Levothyroxine Sodium (Synthroid) 100 mcg PO DAILY@0630 [facility] Last Admin: 10/28/17 06:14 Dose: 100 mcg Nitroglycerin (Nitrostat Sl Tab) 0.4 mg SL Q5MIN PRN PRN Reason: CHEST, ANGINAL DISCOMFORT Last Admin: 10/27/17 06:51 Dose: 0.4 mg Nitroglycerin (Nitro-Bid 2% Oint) 1 ea TOP Q6H [facility] Last Admin: 10/28/17 11:15 Dose: 1 ea Nystatin (Nystop Topical Powder) 1 applic TOP TID [facility] Last Admin: 10/28/17 13:16 Dose: Not Given - Labs Labs: 10/28/17 04:25 10/28/17 04:25 PT 11.3 Seconds (9.8-13.1) 10/27/17 09:00 INR 1.0 (0.9-1.2) 10/27/17 09:00 APTT 31.8 Seconds (25.6-37.1) 10/27/17 09:00 Assessment and Plan (1) Chest pain Status: Acute (2) Type 2 diabetes mellitus with hyperglycemia Status: Chronic (3) CAD (coronary artery disease) Status: Acute (4) COPD (chronic obstructive pulmonary disease) Status: Chronic (5) HTN (hypertension) Status: Acute (6) Hx of CABG Status: Chronic (7) Osteoarthritis Status: Chronic (8) Anxiety Status: Chronic (9) Hypothyroidism Status: Chronic (10) Chronic low back pain Status: Chronic (11) Generalized weakness Status: Chronic (12) Hypercholesterolemia Status: Chronic (13) Anemia Status: Acute
--- NOTE | 2017-10-28 17:04 | CP.PCM.DIS ---
Provider - Provider Date of Admission: 10/27/17 19:49 Attending physician: Sridhar Oliver MD Consults: Cardiology, Gastroenterology and Wound Care Time Spent in preparation of Discharge (in minutes): 35 Diagnosis - Discharge Diagnosis (1) Chest pain Status: Acute Priority: High (2) Type 2 diabetes mellitus with hyperglycemia Status: Chronic Priority: High (3) CAD (coronary artery disease) Status: Acute Priority: Medium (4) COPD (chronic obstructive pulmonary disease) Status: Chronic Priority: Medium (5) HTN (hypertension) Status: Chronic Priority: Medium (6) Hx of CABG Status: Chronic Priority: Medium (7) Osteoarthritis Status: Chronic Priority: Medium (8) Anxiety Status: Chronic Priority: Medium (9) Hypothyroidism Status: Chronic Priority: Medium (10) Chronic low back pain Status: Chronic Priority: Medium (11) Generalized weakness Status: Chronic Priority: High (12) Hypercholesterolemia Status: Chronic Priority: Low (13) Anemia Status: Acute Hospital Course - Lab Results Lab Results: Micro Results 10/26/17 05:35 Urine,Clean Catch Urine Culture - Final No Growth (<1,000 CFU/ML) Most Recent Lab Values WBC 9.1 K/uL (4.8-10.8) 10/28/17 04:25 RBC 3.36 Mil/uL (3.80-5.20) L 10/28/17 04:25 Hgb 10.2 g/dL (12.0-16.0) L D 10/28/17 04:25 Hct 30.9 % (34.0-47.0) L 10/28/17 04:25 MCV 91.9 fl (81.0-99.0) 10/28/17 04:25 MCH 30.3 pg (27.0-31.0) 10/28/17 04:25 MCHC 33.0 g/dL (33.0-37.0) 10/28/17 04:25 RDW 14.6 % (11.5-14.5) H 10/28/17 04:25 Plt Count 221 K/uL (130-400) 10/28/17 04:25 MPV 8.1 fl (7.2-11.7) 10/27/17 09:00 Neut % (Auto) 70.7 % (50.0-75.0) 10/27/17 09:00 Lymph % (Auto) 17.5 % (20.0-40.0) L 10/27/17 09:00 [place] % (Auto) 6.7 % (0.0-10.0) 10/27/17 09:00 Eos % (Auto) 4.5 % (0.0-4.0) H 10/27/17 09:00 Baso % (Auto) 0.6 % (0.0-2.0) 10/27/17 09:00 Neut # (Auto) 6.6 K/uL (1.8-7.0) 10/27/17 09:00 Lymph # (Auto) 1.6 K/uL (1.0-4.3) 10/27/17 09:00 [place] # (Auto) 0.6 K/uL (0.0-0.8) 10/27/17 09:00 Eos # (Auto) 0.4 K/uL (0.0-0.7) 10/27/17 09:00 Baso # (Auto) 0.1 K/uL (0.0-0.2) 10/27/17 09:00 Retic Count 3.0 % (0.5-1.5) H 10/27/17 09:00 PT 11.3 Seconds (9.8-13.1) 10/27/17 09:00 INR 1.0 (0.9-1.2) 10/27/17 09:00 APTT 31.8 Seconds (25.6-37.1) 10/27/17 09:00 pCO2 62 mm/Hg (35-45) H 10/28/17 11:50 pO2 83 mm/Hg (80-100) 10/28/17 11:50 HCO3 36.9 mmol/L (21-28) H 10/28/17 11:50 ABG pH 7.44 (7.35-7.45) 10/28/17 11:50 ABG Total CO2 44.0 mmol/L (22-28) H 10/28/17 11:50 ABG O2 Saturation 95.7 % (95-98) 10/28/17 11:50 ABG O2 Content 14.6 ML/dL (15-23) L 10/28/17 11:50 ABG Base Excess 15.4 mmol/L (-2.0-3.0) H 10/28/17 11:50 ABG Hemoglobin 11.0 g/dL (11.7-17.4) L 10/28/17 11:50 ABG Carboxyhemoglobin 1.1 % (0.5-1.5) 10/28/17 11:50 POC ABG HHb (Measured) 4.2 % (0.0-5.0) 10/28/17 11:50 ABG Methemoglobin 0.6 % (0.0-3.0) 10/28/17 11:50 ABG O2 Capacity 15.3 mL/dL (16-24) L 10/28/17 11:50 ABG Potassium 4.6 mmol/L (3.6-5.2) 10/26/17 00:30 August Test Yes 10/28/17 11:50 Sodium 135.0 mmol/L (132-148) 10/26/17 00:30 Chloride 97.0 mmol/L (98-107) L 10/26/17 00:30 Glucose 411 mg/dL (65-105) H* D 10/26/17 00:30 Lactate 0.6 mmol/L (0.7-2.1) L 10/26/17 00:30 A-a O2 Difference 39.0 mm/Hg 10/28/17 11:50 Hgb O2 Saturation 94.1 % (95.0-98.0) L 10/28/17 11:50 FiO2 28.0 % 10/28/17 11:50 Crit Value Called To Miguel catalan 10/26/17 00:30 Crit Value Called By Arian 10/26/17 00:30 Crit Value Read Back Y 10/26/17 00:30 Blood Gas Notified Time 45 10/26/17 00:30 Sodium 138 mmol/l (132-148) 10/28/17 04:25 Potassium 4.1 MMOL/L (3.6-5.0) 10/28/17 04:25 Chloride 93 mmol/L (98-107) L 10/28/17 04:25 Carbon Dioxide 41 mmol/L (22-30) H* 10/28/17 04:25 Anion Gap 8 (10-20) L 10/28/17 04:25 BUN 26 mg/dl (7-17) H 10/28/17 04:25 Creatinine 1.3 mg/dl (0.7-1.2) H 10/28/17 04:25 Est GFR ( Amer) 48 10/28/17 04:25 Est GFR (Non-Af Amer) 40 10/28/17 04:25 POC Glucose (mg/dL) 203 mg/dL (65-110) H 10/28/17 12:49 Random Glucose 213 mg/dL (65-105) H 10/28/17 04:25 Calcium 8.9 mg/dL (8.4-10.2) 10/28/17 04:25 Total Bilirubin 0.9 mg/dl (0.2-1.3) 10/26/17 05:45 Iron 61 ug/dL (37-170) 10/27/17 09:00 TIBC 195 ug/dL (250-450) L 10/27/17 09:00 % Saturation 32 % (20-55) 10/27/17 09:00 AST 20 U/L (14-36) 10/26/17 05:45 ALT 21 U/L (9-52) 10/26/17 05:45 Alkaline Phosphatase 165 U/L (38-126) H 10/26/17 05:45 Ferritin 326.0 ng/Ml (11.1-264.0) H 10/27/17 09:00 NT-Pro-B Natriuret Pep 1060 pg/ml (0-900) H 10/26/17 00:43 Total Protein 6.4 G/DL (6.3-8.2) 10/26/17 05:45 Troponin I < 0.0120 ng/mL (0.00-0.120) 10/26/17 17:10 Albumin 2.9 g/dL (3.5-5.0) L 10/26/17 05:45 Globulin 3.5 gm/dL (2.2-3.9) 10/26/17 05:45 Albumin/Globulin Ratio 0.8 (1.0-2.1) L 10/26/17 05:45 Vitamin B12 467 pg/mL (239-931) 10/27/17 09:00 Arterial Blood Potassium 4.6 mmol/L (3.6-5.2) 10/26/17 00:30 Urine Color Sarah (YELLOW) 10/26/17 05:35 Urine Clarity Clear (Clear) 10/26/17 05:35 Urine pH 6.0 (5.0-8.0) 10/26/17 05:35 Ur Specific [place] 1.009 (1.003-1.030) 10/26/17 05:35 Urine Protein 30 mg/dL (NEGATIVE) 10/26/17 05:35 Urine Glucose (UA) >=500 mg/dL (Normal) 10/26/17 05:35 Urine Ketones Negative mg/dL (NEGATIVE) 10/26/17 05:35 Urine Blood Negative (NEGATIVE) 10/26/17 05:35 Urine Nitrate Positive (NEGATIVE) H 10/26/17 05:35 Urine Bilirubin Negative (NEGATIVE) 10/26/17 05:35 Urine Urobilinogen 4.0 mg/dL (0.2-1.0) H 10/26/17 05:35 Ur Leukocyte Esterase Neg [place]/uL (Negative) 10/26/17 05:35 Urine RBC (Auto) 1 /hpf (0-3) 10/26/17 05:35 Urine Microscopic WBC 1 /hpf (0-5) 10/26/17 05:35 Ur Squamous Epith Cells 1 /hpf (0-5) 10/26/17 05:35 Hyaline Casts 0-2 /hpf (0-2) 10/26/17 05:35 Blood Type O POSITIVE 10/27/17 13:20 Antibody Screen Negative 10/27/17 13:20 Crossmatch See Detail 10/27/17 13:20 BBK History Checked Patient has bt 10/27/17 13:20 - Date & Time of H&P Date of H&P: 10/27/17 Time of H&P: 10:20 Discharge Exam - Head Exam Head Exam: NORMAL INSPECTION - Eye Exam Eye Exam: PERRL (R eye, L eye blind) - ENT Exam ENT Exam: Normal Exam Additional comments: Hard of hearing R ear - Neck Exam Neck exam: Normal Inspection - Respiratory Exam Respiratory Exam: Decreased Breath Sounds (at bases) - Cardiovascular Exam Cardiovascular Exam: REGULAR RHYTHM, Systolic Murmur (2/6 LSB) - GI/Abdominal Exam GI & Abdominal Exam: Normal Bowel Sounds, Soft - Extremities Exam Additional comments: L TMA - Back Exam Back exam: tenderness (mild) - Neurological Exam Neurological exam: Alert Additional comments: Ox2, confused, follows commands, generalized weakness. - Psychiatric Exam Psychiatric exam: Anxious - Skin Skin Exam: Warm Discharge Plan - Follow Up Plan Condition: FAIR Disposition: HOME/ ROUTINE Patient education suggested?: Yes Instructions: Heart Failure (DC) Additional Instructions: pt. cleared for discharge to home today by and pt. s/p 2 unit prbc, hgb 10.2 pt. will f/u with , Alejandrina and outpatient Referrals: Sridhar Oliver MD [Staff Provider] - Sridhar Beckett MD [Staff Provider] -
[2017-10-28] MEDS ORDERED: Patient's Own Med (Ranolazine [Ranexa] 1,000 MG) PO SCH (17:45)
[2017-10-28 18:47] VITALS: TEMP 97.8
--- NOTE | 2017-10-29 12:36 | CP.PCM.PN ---
Subjective - Date & Time of Evaluation Date of Evaluation: 10/28/17 Time of Evaluation: 17:30 - Subjective Subjective: doing well Objective - Vital Signs/Intake and Output Vital Signs (last 24 hours): Temp Pulse Resp BP Pulse Ox 97.8 F 65 17 136/66 95 10/28/17 16:04 10/28/17 16:04 10/28/17 16:04 10/28/17 16:04 10/28/17 16:04 - Labs Labs: 10/28/17 04:25 10/28/17 04:25 PT 11.3 Seconds (9.8-13.1) 10/27/17 09:00 INR 1.0 (0.9-1.2) 10/27/17 09:00 APTT 31.8 Seconds (25.6-37.1) 10/27/17 09:00 - Neck Exam Neck Exam: Normal Inspection - Respiratory Exam Respiratory Exam: NORMAL BREATHING PATTERN - Cardiovascular Exam Cardiovascular Exam: REGULAR RHYTHM - GI/Abdominal Exam GI & Abdominal Exam: Soft, Normal Bowel Sounds Assessment and Plan - Assessment and Plan (Free Text) Assessment: 77 yo female with anemia dc planning outpt egd/colonoscopy
== END 2017-10-28 17:45 | disposition home or self-care (01) ==
LOC: H.ER 23:19 → H.ERHOLD 10-26 01:36 → H.TEL 10-26 22:08 → INTOOBSV 10-27 19:49 → OBSVTOIN 10-27 19:49 → UNDODISIN 10-28 17:45
PROVIDERS: ADMIT Internal Medicine Pulmonary Disease; ATTEND Internal Medicine Pulmonary Disease
DX: R07.9 Chest pain, unspecified (principal); E11.65 Type 2 diabetes mellitus with hyperglycemia; I25.10 Atherosclerotic heart disease of native coronary artery without angina pectoris; J44.9 Chronic obstructive pulmonary disease, unspecified; I13.0 Hypertensive heart and chronic kidney disease with heart failure and stage 1 through stage 4 chronic kidney disease, or unspecified chronic kidney disease; I50.9 Heart failure, unspecified; N18.9 Chronic kidney disease, unspecified; Z88.5 Allergy status to narcotic agent; Z88.0 Allergy status to penicillin; Z91.018 Allergy to other foods; Z99.81 Dependence on supplemental oxygen; E78.00 Pure hypercholesterolemia, unspecified; E78.5 Hyperlipidemia, unspecified; E03.9 Hypothyroidism, unspecified; Z95.1 Presence of aortocoronary bypass graft; Z95.5 Presence of coronary angioplasty implant and graft; E11.22 Type 2 diabetes mellitus with diabetic chronic kidney disease; D64.9 Anemia, unspecified; G89.29 Other chronic pain; F41.9 Anxiety disorder, unspecified; K59.00 Constipation, unspecified; M19.90 Unspecified osteoarthritis, unspecified site; R53.1 Weakness; F03.90 Unspecified dementia, unspecified severity, without behavioral disturbance, psychotic disturbance, mood disturbance, and anxiety; F32.9 Major depressive disorder, single episode, unspecified; K29.70 Gastritis, unspecified, without bleeding
CPT/HCPCS: 36415; 36430; 71045; 80048; 80053; 81003; 82607; 82728; 82803; 82948; 83540; 83550; 83880; 84484; 85025; 85027; 85044; 85610; 85730; 86850; 86900; 86920; 87086; 93005; 94640; 96372; 96374; 99285; G0378; J1940; P9051

== ENCOUNTER 2017-10-30 09:48 | Inpatient (IN) | payer MEDICAID ==
[2017-10-30 09:58] VITALS: BMI 33.3
[2017-10-30] MEDS ORDERED: Albuterol-Ipratrop 3 mg / 0.5 (3 ml) UD IH STA (10:00)
[2017-10-30] MEDS ORDERED: Albuterol-Ipratrop 3 mg / 0.5 (3 ml) UD INH STA ×2 (10:00→10:04)
--- NOTE | 2017-10-30 10:01 | ED PDOC ---
HPI: General Adult Time Seen by Provider: 10/30/17 09:52 Chief Complaint (Nursing): Weakness/Neurological Deficit Chief Complaint (Provider): Weakness History Per: EMS, Family History/Exam Limitations: clinical condition Onset/Duration Of Symptoms: Days (2) Current Symptoms Are (Timing): Still Present Additional Complaint(s): Pt. has had weakness and decreased responsiveness for 2 days. Cough, nasal congestion, runny nose. Baseline does not move around or walk. Pt. was sent home from here 2 days ago and talking more. Was admitted then for chest pain. Was admitted few days before that for uti/anemia. Pt. not on antibiotics currently. Dr. Oliver is pcp. Past Medical History Vital Signs: Last Vital Signs Temp 100.4 F H 10/30/17 09:51 Pulse 68 10/30/17 11:00 Resp 19 10/30/17 11:00 BP 129/90 10/30/17 11:00 Pulse Ox 94 L 10/30/17 11:00 - Medical History PMH: Anemia, Anxiety, Arthritis, Asthma, Back Problems, Bronchitis, CAD, CHF, COPD, Dementia, Depression, Diabetes, Gastritis, HTN, Hypercholesterolemia, Hyperlipidemia, Hypothyroidism, Peripheral Edema, Pneumonia, Chronic Kidney Disease (mild renal insufficiecy.) Denies: HIV, Rheumatoid Arthritis - Surgical History Surgical History: CABG (x4), Cholecystectomy, Coronary Stent Denies: Pacemaker - Family History Family History: States: Unknown Family Hx - Living Arrangements Living Arrangements: With Family - Home Medications Home Medications: Ambulatory Orders Medication Instructions Recorded Aspirin [Ecotrin] 81 mg PO DAILY 01/12/17 Carvedilol [Coreg] 3.125 mg PO DAILY 01/12/17 Levothyroxine [Synthroid] 100 mcg PO DAILY 01/12/17 Ranolazine [Ranexa] 1,000 mg PO BID 01/12/17 Atorvastatin [Lipitor] 40 mg PO HS 02/01/17 Furosemide [Lasix] 20 mg PO Q48H 03/17/17 ALPRAZolam [Xanax] 0.25 mg PO HS PRN tab 06/16/17 Docusate [Colace] 100 mg PO DAILY PRN 08/30/17 Gabapentin [Neurontin] 100 mg PO BID PRN 08/30/17 Nitroglycerin [Nitrostat] 1 tab SL PRN PRN 10/10/17 Albuterol/Ipratropium [Duoneb 3 3 ml INH RQID #0 neb 10/15/17 mg/0.5 mg (3 ml) UD] Insulin Human NPH/Reg [HumuLIN 3 unit SC DAILY PRN 10/30/17 70/30 (NPH/Reg)] - Allergies Allergies/Adverse Reactions: Allergies Allergy/AdvReac Type Severity Reaction Status Date / Time kiwi Allergy Mild RASH Verified 10/18/17 18:48 morphine Allergy Mild RASH Verified 10/18/17 18:48 Penicillins Allergy Mild RASH Verified 10/18/17 18:48 pineapple Allergy Mild RASH Verified 10/18/17 18:48 watermelon Allergy Mild RASH Verified 10/18/17 18:48 Review of Systems Review Of Systems: ROS cannot be obtained secondary to pt's inabilty to answer questions. 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 Negative for: EOMI (not following commands) ENT: Positive for: Nasal Congestion Neck: Positive for: Painless ROM, Supple Cardiovascular/Chest: Positive for: Regular Rate, Rhythm. Negative for: Tachycardia Respiratory: Positive for: Decreased Breath Sounds, Other (coarse breath sounds b/l) Gastrointestinal/Abdominal: Positive for: Normal Exam, Bowel Sounds, Soft. Negative for: Tenderness Back: Positive for: Normal Inspection. Negative for: L CVA Tenderness, R CVA Tenderness Extremity: Positive for: Other (L toe amputations). Negative for: Tenderness, Pedal Edema Neurologic/Psych: Positive for: Other (decreased responsiveness; not following commands or speaking) - Laboratory Results Result Diagrams: 10/30/17 10:30 10/30/17 10:30 Interpretation Of Abn Labs: 2180 probnp; flu pos; - ECG ECG: Positive for: Interpreted By Me, Viewed By Me ECG Rhythm: Positive for: Normal QRS, Normal ST Segment, Sinus Rhythm O2 Sat by Pulse Oximetry: 90 Pulse Ox Interpretation: Abnormal - Radiology X-Ray: Read By Radiologist X-Ray Interpretation: No Acute Disease - Progress ED Course And Treament: 1200: Stable. More alert. Smiling. Pt. CO2 and BUN similar to old. Will txt chf and flu. Will admit. Meets sepsis criteria. 1212: Stable. Spoke with Dr. Oliver. Will admit tele. Will give further orders when pt. reaches floor. - Critical Care Total Time (In Min): 30 Documented Critical Care: Time excludes all time spent performint seperately billable procedures Disposition - Clinical Impression Clinical Impression: Sepsis, Influenza, CHF (congestive heart failure) - Patient ED Disposition Is Patient to be Admitted: Yes Counseled Patient/Family Regarding: Studies Performed, Diagnosis - Disposition Disposition Time: 12:03 Condition: SERIOUS - Pt Status Changed To: Hospital Disposition Of: Inpatient - Admit Certification Admit to Inpatient:: After my assessment, the patient will require hospitalization for at least two midnights. This is because of the severity of symptoms shown, intensity of services needed, and/or the medical risk in this patient being treated as an outpatient. - POA Present On Arrival: None
[2017-10-30] MEDS ORDERED: Albuterol-Ipratrop 3 mg / 0.5 (3 ml) UD ONE (10:34)
[2017-10-30] MEDS: Sodium Chloride 0.9% 500 ML IV SCH (10:35)
[2017-10-30 10:46] LABS: ABG ALLEN TEST YES; ARTERIAL BLOOD GAS HCO3 36.3 mmol/L (21-28); ARTERIAL BLOOD GAS O2 SAT 87.6 % (95-98); ARTERIAL BLOOD GAS PCO2 64 mm/Hg (35-45); ARTERIAL BLOOD GAS PH 7.43 (7.35-7.45); ARTERIAL BLOOD GAS PO2 50 mm/Hg (80-100); ARTERIAL BLOOD GAS TCO2 44.5 mmol/L (22-28)
[2017-10-30 10:49] LABS: BASO # 0.1 K/uL (0.0-0.2); BASO % 0.6 % (0.0-2.0); EOS # 0.1 K/uL (0.0-0.7); LYMPH # 0.9 K/uL (1.0-4.3); LYMPH % 9.5 % (20.0-40.0); MEAN CELL VOLUME 92.5 fl (81.0-99.0); MEAN CORPUSCULAR HEMOGLOBIN 30.5 pg (27.0-31.0); MEAN PLATELET VOLUME 8.1 fl (7.2-11.7); MONO # 0.7 K/uL (0.0-0.8); MONO % 7.3 % (0.0-10.0); NEUT # 7.6 K/uL (1.8-7.0); NEUT % 81.6 % (50.0-75.0); PLATELET COUNT 202 K/uL (130-400); RBC 3.59 Mil/uL (3.80-5.20); RED CELL DISTRIBUTION WIDTH 14.6 % (11.5-14.5); WHITE BLOOD COUNT 9.3 K/uL (4.8-10.8)
--- NOTE | 2017-10-30 11:09 | RAD ---
HISTORY: Sepsis Patient COMPARISON: Chest radiograph dated 10/26/2017. FINDINGS: LUNGS: Bibasilar atelectasis. Left midlung platelike atelectasis, unchanged. PLEURA: Questionable small bilateral pleural effusions. No pneumothorax apparent. CARDIOVASCULAR: Prior sternotomy with sternal wires and surgical clips redemonstrated. Atherosclerotic aortic calcifications. Cardiomediastinal silhouette stably prominent. OSSEOUS STRUCTURES: Unchanged. VISUALIZED UPPER ABDOMEN: Right upper quadrant surgical clips redemonstrated. OTHER FINDINGS: None. IMPRESSION: Bibasilar atelectasis and questionable small pleural effusions. No other significant interval change.
[2017-10-30 11:12] LABS: INR 1.1 (0.9-1.2); PARTIAL THROMBOPLASTIN TIME 31.4 Seconds (25.6-37.1); PROTHROMBIN TIME 12.3 Seconds (9.8-13.1)
[2017-10-30 11:13] LABS: B-TYPE NATRIURETIC PEPTIDE 2180 pg/ml (0-900)
[2017-10-30 11:26] LABS: ALB/GLOB RATIO 0.8 (1.0-2.1); ALT/SGPT 27 U/L (9-52); AST/SGOT 30 U/L (14-36); BLOOD UREA NITROGEN 23 mg/dl (7-17); CALCIUM 9.2 mg/dL (8.4-10.2); GFR AFRICAN-AMERICAN 52; GFR NON-AFRICAN AMERICAN 43; MAGNESIUM 2.2 MG/DL (1.6-2.3)
[2017-10-30] MEDS ORDERED: Aspirin 325 mg EC Tablets PO ONE (12:12)
[2017-10-30 13:12] LABS: URINE BILIRUBIN NEGATIVE (NEGATIVE); URINE BLOOD NEGATIVE (NEGATIVE); URINE CLARITY CLEAR (Clear); URINE COLOR YELLOW (YELLOW); URINE GLUCOSE (UA) NEG (Normal)
[2017-10-30 13:13] LABS: SQUAMOUS EPITHIAL 2 /hpf (0-5); URINE BACTERIA MOD (<OCC); URINE HYALINE CAST 1 /hpf (0-2); URINE LEUKOCYTE ESTERASE NEG Leu/uL (Negative); URINE NITRATE POSITIVE (NEGATIVE); URINE PROTEIN 100 mg/dL (NEGATIVE); URINE UROBILINOGEN 0.2 mg/dL (0.2-1.0)
[2017-10-30 14:02] LABS: EOSINOPHIL 1 % (0-7); LYMPHOCYTE 12 % (20-50); MONOCYTE 8 % (0-10); NEUTROPHIL 79 % (42-75); TOTAL CELLS COUNTED 100
[2017-10-30 14:10] LABS: PLATELET ESTIMATE NORMAL (NORMAL)
[2017-10-30 14:11] LABS: HYPOCHROMIC SLIGHT; TOXIC GRANULATION PRESENT
[2017-10-30] MEDS ORDERED: Ciprofloxacin 400mg/200ml D5W 400 MG/200 ML BAG IV STA (16:12)
[2017-10-30] MEDS ORDERED: Ciprofloxacin 400mg/200ml D5W 400 MG/200 ML BAG IVPB ONE (16:25)
--- NOTE | 2017-10-30 17:20 | CP.PCM.HP ---
History of Present Illness - History of Present Illness History of Present Illness: CC: Weakness/ Fever. 77 y/o F, Hx of CHF, CABG, COPD, brought by EMS to [facility] [place] for evaluation of increased weaknesses associated to fever (in ED TMAx 100.4 F), chills, and intermittent cough, non productive, non bloody and nasal congestion for 2 days [employer] with non relief. Worsening symptoms: + for Influenza A. Pt Lethargic with decreased responsiveness. Aggravated factor: Inability to answer questions. Pt has multiple chronic medical conditions, admitted several times this year mainly for CP and UTI, last discharge from [facility] in stable condition was on 10/28/17, Tx for Chest pain and others chronic Dx. As per family: No syncope, numbness, LOC, abdominal pain, n/v/d, urinary symptoms, sick contact. In ER, CXR showed: Bibasilar atelectasis, questionable small pleural effusion. Present on Admission - Present on Admission Any Indicators Present on Admission: No Review of Systems - Review of Systems Systems not reviewed;Unavailable: Acuity of Condition (Lehargic, inability to answer questions.) - Constitutional Constitutional: Weakness Past Patient History - Infectious Disease Hx of Infectious Diseases: None - Tetanus Immunizations Tetanus Immunization: Unknown - Past Medical History & Family History Past Medical History?: Yes Pertinent Family History: Unknown - Past Social History Smoking Status: Never Smoked Alcohol: None Drugs: Denies Home Situation {Lives}: With Family - CARDIAC Hx Cardiac Disorders: Yes Hx Congestive Heart Failure: Yes Hx Hypercholesterolemia: Yes Hx Hypertension: Yes Hx Pacemaker: No Hx Peripheral Edema: Yes - PULMONARY Hx Respiratory Disorders: Yes Hx Asthma: Yes Hx Bronchitis: Yes Hx Chronic Obstructive Pulmonary Disease (COPD): Yes Hx Pneumonia: Yes - NEUROLOGICAL Hx Neurological Disorder: Yes Hx Dementia: Yes - HEENT Hx HEENT Problems: Yes Hx Blind: Yes (left eye) Other/Comment: Hard of hear R ear., left eye blind - RENAL Hx Chronic Kidney Disease: Yes (mild renal insufficiecy.) - ENDOCRINE/METABOLIC Hx Endocrine Disorders: Yes Hx Hypothyroidism: Yes - HEMATOLOGICAL/ONCOLOGICAL Hx Blood Disorders: Yes Hx Anemia: Yes Hx Human Immunodeficiency Virus (HIV): No - INTEGUMENTARY Hx Dermatological Problems: No - MUSCULOSKELETAL/RHEUMATOLOGICAL Hx Musculoskeletal Disorders: Yes Hx Arthritis: Yes Hx Rheumatoid Arthritis: No - GASTROINTESTINAL Hx Gastrointestinal Disorders: Yes Hx Gastritis: Yes - GENITOURINARY/GYNECOLOGICAL Hx Genitourinary Disorders: Yes Hx Incontinence: Yes Hx Urinary Tract Infection: Yes - PSYCHIATRIC Hx Psychophysiologic Disorder: Yes Hx Anxiety: Yes Hx Depression: Yes - SURGICAL HISTORY Hx Surgeries: Yes Hx Cholecystectomy: Yes Hx Coronary Artery Bypass Graft: Yes (x4) Hx Coronary Stent: Yes - ANESTHESIA Hx Anesthesia: Yes Hx Anesthesia Reactions: No Hx Malignant Hyperthermia: No Meds Allergies/Adverse Reactions: Allergies Allergy/AdvReac Type Severity Reaction Status Date / Time kiwi Allergy Mild RASH Verified 10/18/17 18:48 morphine Allergy Mild RASH Verified 10/18/17 18:48 Penicillins Allergy Mild RASH Verified 10/18/17 18:48 pineapple Allergy Mild RASH Verified 10/18/17 18:48 watermelon Allergy Mild RASH Verified 10/18/17 18:48 Physical Exam - Constitutional Appears: Chronically Ill - Head Exam Head Exam: NORMAL INSPECTION - Eye Exam Eye Exam: PERRL - ENT Exam Additional comments: Hard of hearing R ear. - Neck Exam Neck exam: Positive for: Normal Inspection - Respiratory Exam Respiratory Exam: Decreased Breath Sounds (R eye, L eye blind) - Cardiovascular Exam Cardiovascular Exam: REGULAR RHYTHM, Systolic Murmur (2/6 LSB) - GI/Abdominal Exam GI & Abdominal Exam: Normal Bowel Sounds, Soft - Extremities Exam Additional comments: L TMA, 2+ piiting edema b/l LE - Back Exam Back exam: tenderness (mild) - Neurological Exam Additional comments: Lethargic, confused, generalized weakness. - Skin Skin Exam: Warm Results - Vital Signs Recent Vital Signs: Last Vital Signs Temp 98.7 F 10/30/17 12:08 Pulse 76 10/30/17 12:08 Resp 18 10/30/17 12:08 BP 136/60 10/30/17 12:12 Pulse Ox 90 L 10/30/17 12:14 reviewed Cheryl - Labs Result Diagrams: 10/30/17 10:30 10/30/17 10:30 Labs: Laboratory Results - last 24 hr 10/30/17 10/30/17 10/30/17 10:30 10:30 10:30 WBC 9.3 RBC 3.59 L Hgb 11.0 L Hct 33.2 L MCV 92.5 MCH 30.5 MCHC 33.0 RDW 14.6 H Plt Count 202 MPV 8.1 Neut % (Auto) 81.6 H Lymph % (Auto) 9.5 L Travis % (Auto) 7.3 Eos % (Auto) 1.0 Baso % (Auto) 0.6 Neut # (Auto) 7.6 H Lymph # (Auto) 0.9 L Travis # (Auto) 0.7 Eos # (Auto) 0.1 Baso # (Auto) 0.1 Neutrophils % (Manual) 79 H Lymphocytes % (Manual) 12 L Monocytes % (Manual) 8 Eosinophils % (Manual) 1 Toxic Granulation Present Platelet Estimate Normal Hypochromasia (manual) Slight PT 12.3 INR 1.1 APTT 31.4 pCO2 pO2 HCO3 ABG pH ABG Total CO2 ABG O2 Saturation ABG Base Excess August Test ABG Potassium A-a O2 Difference Glucose Lactate FiO2 Sodium 139 Potassium 4.6 Chloride 97 L Carbon Dioxide 40 H* Anion Gap 7 L BUN 23 H Creatinine 1.2 Est GFR ( Amer) 52 Est GFR (Non-Af Amer) 43 Random Glucose 181 H Calcium 9.2 Phosphorus 3.2 Magnesium 2.2 Total Bilirubin 0.7 AST 30 ALT 27 Alkaline Phosphatase 71 Troponin I < 0.0120 NT-Pro-B Natriuret Pep 2180 H Total Protein 6.8 Albumin 3.0 L Globulin 3.8 Albumin/Globulin Ratio 0.8 L Arterial Blood Potassium Urine Color Urine Clarity Urine pH Ur Specific Fine Urine Protein Urine Glucose (UA) Urine Ketones Urine Blood Urine Nitrate Urine Bilirubin Urine Urobilinogen Ur Leukocyte Esterase Urine RBC (Auto) Urine Microscopic WBC Ur Squamous Epith Cells Urine Bacteria Hyaline Casts Influenza Typ A,B (EIA) 10/30/17 10/30/17 10/30/17 10:30 10:33 12:20 WBC RBC Hgb Hct MCV MCH MCHC RDW Plt Count MPV Neut % (Auto) Lymph % (Auto) Travis % (Auto) Eos % (Auto) Baso % (Auto) Neut # (Auto) Lymph # (Auto) Travis # (Auto) Eos # (Auto) Baso # (Auto) Neutrophils % (Manual) Lymphocytes % (Manual) Monocytes % (Manual) Eosinophils % (Manual) Toxic Granulation Platelet Estimate Hypochromasia (manual) PT INR APTT pCO2 64 H pO2 50 L HCO3 36.3 H ABG pH 7.43 ABG Total CO2 44.5 H ABG O2 Saturation 87.6 L ABG Base Excess 15.0 H August Test Yes ABG Potassium 4.4 A-a O2 Difference 105.0 Glucose 188 H Lactate 0.7 FiO2 33.0 Sodium 137.0 Potassium Chloride 102.0 Carbon Dioxide Anion Gap BUN Creatinine Est GFR ( Amer) Est GFR (Non-Af Amer) Random Glucose Calcium Phosphorus Magnesium Total Bilirubin AST ALT Alkaline Phosphatase Troponin I NT-Pro-B Natriuret Pep Total Protein Albumin Globulin Albumin/Globulin Ratio Arterial Blood Potassium 4.4 Urine Color Yellow Urine Clarity Clear Urine pH 7.0 Ur Specific Fine >= 1.030 Urine Protein 100 Urine Glucose (UA) Neg Urine Ketones Negative Urine Blood Negative Urine Nitrate Positive H Urine Bilirubin Negative Urine Urobilinogen 0.2 Ur Leukocyte Esterase Neg Urine RBC (Auto) 2 Urine Microscopic WBC 1 Ur Squamous Epith Cells 2 Urine Bacteria Mod H Hyaline Casts 1 Influenza Typ A,B (EIA) Pos for influenza a H reviewed J.P. - Imaging and Cardiology Chest x-ray Status: Report reviewed by me (J.P.) Assessment & Plan (1) Influenza A Status: Acute Priority: High (2) COPD (chronic obstructive pulmonary disease) Status: Chronic Priority: Medium (3) CHF (congestive heart failure) Status: Chronic Priority: Medium (4) Generalized weakness Status: Chronic Priority: High (5) HTN (hypertension) Status: Chronic Priority: Medium (6) Diabetes mellitus Status: Chronic Priority: Medium (7) Hypothyroidism Status: Chronic Priority: Medium (8) Osteoarthritis Status: Chronic Priority: Medium (9) Hx of CABG Status: Chronic Priority: Medium (10) Hypercholesterolemia Status: Chronic Priority: Low - Assessment and Plan (Free Text) Plan: F/U EKG, Blood C-S, U C-S, continue NC 2 L/M, ABG stat, continue Cipro, Tamiflu , Coreg, Lasix, Duoneb, Lovenox and rest of medications, - Date & Time Date: 10/30/17 Time: 12:00
[2017-10-30 18:59] LABS: ABG ALLEN TEST YES; ARTERIAL BLOOD GAS HCO3 32.1 mmol/L (21-28); ARTERIAL BLOOD GAS O2 CAPACITY 15.2 mL/dL (16-24); ARTERIAL BLOOD GAS O2 CONTENT 13.1 ML/dL (15-23); ARTERIAL BLOOD GAS O2 SAT 86.3 % (95-98); ARTERIAL BLOOD GAS PCO2 50 mm/Hg (35-45); ARTERIAL BLOOD GAS PH 7.45 (7.35-7.45); ARTERIAL BLOOD GAS PO2 43 mm/Hg (80-100); ARTERIAL BLOOD GAS TCO2 36.3 mmol/L (22-28)
[2017-10-30] MEDS ORDERED: Insulin Lispro (humaLOG) 100 Units/ml Inj SC STA (21:48)
[2017-10-30 22:00] LABS: ABG ALLEN TEST YES; ARTERIAL BLOOD GAS HCO3 32.4 mmol/L (21-28); ARTERIAL BLOOD GAS HEMOGLOBIN 10.7 g/dL (11.7-17.4); ARTERIAL BLOOD GAS O2 CAPACITY 14.8 mL/dL (16-24); ARTERIAL BLOOD GAS O2 CONTENT 13.9 ML/dL (15-23); ARTERIAL BLOOD GAS O2 SAT 93.8 % (95-98); ARTERIAL BLOOD GAS PCO2 62 mm/Hg (35-45); ARTERIAL BLOOD GAS PH 7.38 (7.35-7.45); ARTERIAL BLOOD GAS PO2 63 mm/Hg (80-100); ARTERIAL BLOOD GAS TCO2 38.6 mmol/L (22-28)
[2017-10-30] MEDS: Insulin Lispro Mix 75/25 100 units/ml (HumaLog) 10ml SC SCH (23:00)
[2017-10-31 05:35] LABS: ABG ALLEN TEST YES; ARTERIAL BLOOD GAS HCO3 32.6 mmol/L (21-28); ARTERIAL BLOOD GAS O2 CAPACITY 15.4 mL/dL (16-24); ARTERIAL BLOOD GAS O2 SAT 97.3 % (95-98); ARTERIAL BLOOD GAS PCO2 59 mm/Hg (35-45); ARTERIAL BLOOD GAS PO2 100 mm/Hg (80-100); ARTERIAL BLOOD GAS TCO2 38.3 mmol/L (22-28)
--- NOTE | 2017-10-31 06:37 | CP.PCM.PCO ---
Physician Communication Note - Physician Communication Note Physician Communication Note: Patient found to be lethargic on 50% oxygen.
[2017-10-31] MEDS: Albuterol-Ipratrop 3 mg / 0.5 (3 ml) UD INH SCH ×4 (07:46→20:22)
[2017-10-31] MEDS ORDERED: Insulin Lispro (humaLOG) 100 Units/ml Inj SC ONE (08:15)
[2017-10-31] MEDS: Insulin Lispro Mix 75/25 100 units/ml (HumaLog) 10ml SC SCH ×4 (08:32→21:45)
[2017-10-31] MEDS: Levothyroxine 100 MCG TAB PO SCH (08:33)
[2017-10-31] MEDS: Enoxaparin 40 mg Syringe SC SCH (08:47)
[2017-10-31] MEDS ORDERED: Patient's Own Med (Ranolazine [Ranexa] 1,000 MG) PO SCH (09:00)
[2017-10-31] MEDS: Azithromycin 500 MG in Sodium Chloride 0.9% 250 ML IVPB SCH (09:55)
[2017-10-31] MEDS: Nitroglycerin 2% Ointment Foilpak UD TOP PRN (11:08)
--- NOTE | 2017-10-31 11:27 | CARD ---
APPROVED REPORT EKG Measurement Heart [id number] <Conclusion> Normal sinus rhythm Normal ECG
[2017-10-31] MEDS: Sodium Chloride 0.9% 500 ML IV SCH (12:00)
--- NOTE | 2017-10-31 19:30 | CP.PCM.PN ---
Subjective - Date & Time of Evaluation Date of Evaluation: 10/31/17 Time of Evaluation: 14:10 - Subjective Subjective: F/U Influenza A. COPD Pt awake, answer questions, Ox2, Pt's family at bed side. Objective - Vital Signs/Intake and Output Vital Signs (last 24 hours): Temp Pulse Resp BP Pulse Ox 97.8 F 69 20 126/54 L 98 10/31/17 15:58 10/31/17 15:58 10/31/17 15:58 10/31/17 15:58 10/31/17 15:58 - Medications Medications: Current Medications Acetaminophen (Tylenol 325 Mg Supp) 975 mg [place] ONCE PRN PRN Reason: Fever >100.4 F Last Admin: 10/30/17 10:35 Dose: 975 mg Acetaminophen (Tylenol 325mg Tab) 650 mg PO Q6 PRN PRN Reason: Pain, Mild (1-3) Last Admin: 10/31/17 10:25 Dose: 650 mg Albuterol/Ipratropium (Duoneb 3 Mg/0.5 Mg (3 Ml) Ud) 3 ml INH RQID [facility] Last Admin: 10/31/17 16:42 Dose: 3 ml Alprazolam (Xanax) 0.25 mg PO HS PRN PRN Reason: Insomnia Stop: 11/06/17 18:41 Aspirin (Ecotrin) 81 mg PO DAILY [facility] Last Admin: 10/31/17 08:34 Dose: 81 mg Atorvastatin Calcium (Lipitor) 40 mg PO HS [facility] Last Admin: 10/30/17 21:59 Dose: 40 mg Carvedilol (Coreg) 3.125 mg PO DAILY [facility] Last Admin: 10/31/17 08:34 Dose: 3.125 mg Docusate Sodium (Colace) 100 mg PO DAILY PRN PRN Reason: Constipation Enoxaparin Sodium (Lovenox) 40 mg SC DAILY [facility] PRN Reason: Protocol Last Admin: 10/31/17 08:47 Dose: 40 mg Furosemide (Lasix) 20 mg PO Q48H [facility] Last Admin: 10/30/17 20:29 Dose: 20 mg Gabapentin (Neurontin) 100 mg PO BID PRN PRN Reason: Pain, moderate (4-7) Home Med (Ranolazine [Ranexa]) 1,000 mg PO BID [facility] Sodium Chloride (Sodium Chloride 0.9%) 500 mls @ 150 mls/hr IV .Q3H20M [facility] Last Admin: 10/31/17 12:00 Dose: Not Given Azithromycin 500 mg/ Sodium (Chloride) 250 mls @ 250 mls/hr IVPB DAILY [facility] PRN Reason: Protocol Last Admin: 10/31/17 09:55 Dose: 250 mls/hr Insulin Lispro Protam/Lispro Human (Humalog Mix 75/25) 5 units SC ACHS [facility] Last Admin: 10/31/17 17:31 Dose: 5 units Levothyroxine Sodium (Synthroid) 100 mcg PO DAILY@0630 [facility] Last Admin: 10/31/17 08:33 Dose: 100 mcg Nitroglycerin (Nitro-Bid 2% Oint) 1 ea TOP PRN PRN PRN Reason: Other Last Admin: 10/31/17 11:08 Dose: 1 ea Nystatin (Nystop Topical Powder) 1 applic TOP TID [facility] Oseltamivir Phosphate (Tamiflu Cap) 75 mg PO BID [facility] PRN Reason: Protocol Last Admin: 10/31/17 16:23 Dose: 75 mg - Labs Labs: 10/30/17 10:30 10/30/17 10:30 PT 12.3 Seconds (9.8-13.1) 10/30/17 10:30 INR 1.1 (0.9-1.2) 10/30/17 10:30 APTT 31.4 Seconds (25.6-37.1) 10/30/17 10:30 - Constitutional Appears: Chronically Ill - Head Exam Head Exam: NORMAL INSPECTION - Eye Exam Eye Exam: PERRL (R eye, L eye blind) - ENT Exam Additional comments: Hard of hearing R ear. - Neck Exam Neck Exam: Normal Inspection - Respiratory Exam Respiratory Exam: Decreased Breath Sounds (at bases) - Cardiovascular Exam Cardiovascular Exam: REGULAR RHYTHM, Murmur (systolic 2/6 LSB) - GI/Abdominal Exam GI & Abdominal Exam: Soft, Normal Bowel Sounds - Extremities Exam Additional comments: L TMA. 2+ pitting edema L/E - Back Exam Back Exam: tenderness (mild) - Neurological Exam Neurological Exam: Awake Additional comments: Answer questions, follows commands, generalized weakness. - Psychiatric Exam Psychiatric exam: Anxious - Skin Skin Exam: Warm Assessment and Plan (1) Influenza A Status: Acute (2) COPD (chronic obstructive pulmonary disease) Status: Chronic (3) CHF (congestive heart failure) Status: Chronic (4) Generalized weakness Status: Chronic (5) HTN (hypertension) Status: Chronic (6) Diabetes mellitus Status: Chronic (7) Hypothyroidism Status: Chronic (8) Osteoarthritis Status: Chronic (9) Hx of CABG Status: Chronic (10) Hypercholesterolemia Status: Chronic - Assessment and Plan (Free Text) Plan: Continue Zithromax, Tamiflu, Duoneb and rest of Tx.
[2017-11-01] MEDS: Levothyroxine 100 MCG TAB PO SCH (06:36)
[2017-11-01] MEDS: Insulin Lispro Mix 75/25 100 units/ml (HumaLog) 10ml SC SCH ×4 (06:39→22:27)
[2017-11-01] MEDS: Albuterol-Ipratrop 3 mg / 0.5 (3 ml) UD INH SCH ×2 (07:46→11:24)
[2017-11-01] MEDS: Azithromycin 500 MG in Sodium Chloride 0.9% 250 ML IVPB SCH (09:17)
[2017-11-01] MEDS: Enoxaparin 40 mg Syringe SC SCH (09:18)
[2017-11-01 10:09] LABS: HEMOGLOBIN 10.1 g/dL (12.0-16.0); MEAN CELL VOLUME 94.1 fl (81.0-99.0); MEAN CORPUSCULAR HEMOGLOBIN 29.7 pg (27.0-31.0); MEAN CORPUSCULAR HGB CONC 31.5 g/dL (33.0-37.0); RBC 3.4 Mil/uL (3.80-5.20); RED CELL DISTRIBUTION WIDTH 15.6 % (11.5-14.5); WHITE BLOOD COUNT 5.9 K/uL (4.8-10.8)
[2017-11-01 10:29] LABS: CALCIUM 8.7 mg/dL (8.4-10.2)
--- NOTE | 2017-11-01 12:05 | PQF GENQUE ---
Dr. Oliver, In agreement with the dx. of Sepsis versus Sepsis ruled out? If in agreement etiology or type if known: versus etiology unknown OR: Unable to determine Temp:100.4->98.7->97.8 10/31: Temp low: :96.6 O2 sat.: 90->98-> 94->94->90 WBC:9.3->5.9 with a left shift Influenza Typ A,B:Pos for influenza A U/A: nitrate:positive: bacteria moderate Urine cult;neg Bld. Culture: prelim: no growth after 48 hrs. POC Glucose: 342->472--->500->438 Random glucose:181 CXR: Imp: Bibasilar atelectasis and questionable small pleural effusions. No other significant interval change. Nebs,IVF initially 150 ccs hr ,Cipro and Azithromycin IV ,TamifluInsulin O2 NC->Venti Mask O2-> BIPAP ER note :Pt. has had weakness and decreased responsiveness for 2 days. Cough, nasal congestion, runny nose. 1200: Stable. More alert. Smiling. Pt. CO2 and BUN similar to old. Will txt chf and flu. Will admit. Meets sepsis criteria Clinical Impression: Sepsis, Influenza, CHF --POA; none See the H and P in the EMR 10/31 Physician communication note: Patient found to be lethargic on 50% oxygen. ABG on 50% ventimask Ph 7.38/62/63/32 Patient changed to BIPAP I/P 14/6 with rate of 14 and FiO2 of 60% The patient began to become more arousable repeat ABG: pH7.40/59/100/38 This form is a permanent part of the medical record Clarification of your documentation is requested to better reflect the severity of illness and intensity of treatment of your patient. Indicators present [] Specify: [] [] Specify: [] [] Specify: [] [] Specify: [] Location in the medical record that reflects the above clinical findings: [] Treatment Provided: [] PHYSICIAN'S RESPONSE Based on your medical judgment of the clinical indicators outlined above please clarify the following: [] Practitioner response [] If unable to determine, please check the box, sign and date. Present On Admission (POA) Indicator: [] Present at the time of admission [] Not present at the time of admission [] Clinically Undetermined In responding to this query, please exercise your independent professional judgment. The fact that a question is asked does not imply that any particular answer is desired or expected. Thank you for your clarification on this documentation. If you have any questions please call. * Thank you, Viji Lopez RN ext. #[phone] MTDD
--- NOTE | 2017-11-01 12:08 | PQF GENQUE ---
Dr. Oliver, Please specify the type of Chronic heart failure in your progress notes:if known TYPE: Combined systolic and diastolic Heart failure with reduced ejection fraction and diastolic dysfunction Diastolic HFpEF Systolic HFrEF Left heart failure Right heart failure Right heart failure due to left heart failure High Output failure End stage heart failure Other (please specify) Clinically unable to determine Unknown Pro-BNP: 2180 CXR: Imp: Bibasilar atelectasis and questionable small pleural effusions. No other significant interval change Lasix IV once then PO Q48H, Coreg This form is a permanent part of the medical record Clarification of your documentation is requested to better reflect the severity of illness and intensity of treatment of your patient. Indicators present [] Specify: [] [] Specify: [] [] Specify: [] [] Specify: [] Location in the medical record that reflects the above clinical findings: [] Treatment Provided: [] PHYSICIAN'S RESPONSE Based on your medical judgment of the clinical indicators outlined above please clarify the following: [] Practitioner response [] If unable to determine, please check the box, sign and date. Present On Admission (POA) Indicator: [] Present at the time of admission [] Not present at the time of admission [] Clinically Undetermined In responding to this query, please exercise your independent professional judgment. The fact that a question is asked does not imply that any particular answer is desired or expected. Thank you for your clarification on this documentation. If you have any questions please call. * Thank you, Viji Lopez RN ext. #[phone] MTDD
--- NOTE | 2017-11-01 12:17 | PQF GENQUE ---
, Please specify type of COPD: Acute bronchitis with COPD Asthma with COPD With acute exacerbation With status asthmaticus Without status asthmaticus Bronchiectasis Chronic obstructive bronchitis Exacerbation of COPD Emphysema Other COPD (please specify) Clinically unable to determine Unknown 2/3: H and P: hx. of CHF, CABG, COPD, brought by EMS to [facility] for evaluation of increased weaknesses associated to fever (in ED TMAx 100.4 F), chills, and intermittent cough, non productive , non bloody and nasal congestion for 2 days [employer] with non relief. Worsening symptoms: + for Influenza A.; Lethargic with decreased responsiveness Assessment : (1) Influenza A Status: Acute (2) COPD (chronic obstructive pulmonary disease) Status: Chronic (3) CHF (congestive heart failure) Status: Chronic (4) Generalized weakness Status: Chronic etc. 2/4: Physician communication report: found to be lethargic on 50% O2. : ABG on 50% ventimask Ph 7.38/62/63/32 changed to BIPAP I/P 14/6 with rate of 14 and FiO2 of 60% began to become more arousable repeat ABG: pH7.40/59/100/38 O2 sat.: 90->98-> 94->94->90 CXR: Imp: Bibasilar atelectasis and questionable small pleural effusions. No other significant interval change. Nebs, Cipro and Azithromycin IV ,Tamiflu O2 NC->Venti Mask O2-> BIPAP This form is a permanent part of the medical record Clarification of your documentation is requested to better reflect the severity of illness and intensity of treatment of your patient. Indicators present [] Specify: [] [] Specify: [] [] Specify: [] [] Specify: [] Location in the medical record that reflects the above clinical findings: [] Treatment Provided: [] PHYSICIAN'S RESPONSE Based on your medical judgment of the clinical indicators outlined above please clarify the following: [] Practitioner response [] If unable to determine, please check the box, sign and date. Present On Admission (POA) Indicator: [] Present at the time of admission [] Not present at the time of admission [] Clinically Undetermined In responding to this query, please exercise your independent professional judgment. The fact that a question is asked does not imply that any particular answer is desired or expected. Thank you for your clarification on this documentation. If you have any questions please call. * Thank you, Viji Lopez RN ext. #[phone] MTDD
--- NOTE | 2017-11-01 15:33 | CP.PCM.PN ---
Subjective - Date & Time of Evaluation Date of Evaluation: 11/01/17 Time of Evaluation: 13:35 - Subjective Subjective: awake , oriented two, no Ad , Patient,s daughter at bedside Objective - Vital Signs/Intake and Output Vital Signs (last 24 hours): Temp Pulse Resp BP Pulse Ox 98.1 F 69 18 132/68 97 11/01/17 11:48 11/01/17 11:48 11/01/17 11:48 11/01/17 11:48 11/01/17 11:48 - Medications Medications: Current Medications Acetaminophen (Tylenol 325 Mg Supp) 975 mg [place] ONCE PRN PRN Reason: Fever >100.4 F Last Admin: 10/30/17 10:35 Dose: 975 mg Acetaminophen (Tylenol 325mg Tab) 650 mg PO Q6 PRN PRN Reason: Pain, Mild (1-3) Last Admin: 11/01/17 03:31 Dose: 650 mg Albuterol/Ipratropium (Duoneb 3 Mg/0.5 Mg (3 Ml) Ud) 3 ml INH RQID [facility] Last Admin: 11/01/17 11:24 Dose: 3 ml Alprazolam (Xanax) 0.25 mg PO HS PRN PRN Reason: Insomnia Stop: 11/06/17 18:41 Last Admin: 11/01/17 00:25 Dose: 0.25 mg Aspirin (Ecotrin) 81 mg PO DAILY [facility] Last Admin: 11/01/17 09:20 Dose: 81 mg Atorvastatin Calcium (Lipitor) 40 mg PO HS [facility] Last Admin: 10/31/17 21:44 Dose: 40 mg Carvedilol (Coreg) 3.125 mg PO DAILY [facility] Last Admin: 11/01/17 09:20 Dose: 3.125 mg Docusate Sodium (Colace) 100 mg PO DAILY PRN PRN Reason: Constipation Enoxaparin Sodium (Lovenox) 40 mg SC DAILY [facility] PRN Reason: Protocol Last Admin: 11/01/17 09:18 Dose: 40 mg Furosemide (Lasix) 20 mg PO Q48H [facility] Last Admin: 10/30/17 20:29 Dose: 20 mg Gabapentin (Neurontin) 100 mg PO BID PRN PRN Reason: Pain, moderate (4-7) Home Med (Ranolazine [Ranexa]) 1,000 mg PO BID [facility] Sodium Chloride (Sodium Chloride 0.9%) 500 mls @ 150 mls/hr IV .Q3H20M [facility] Last Admin: 10/31/17 12:00 Dose: Not Given Azithromycin 500 mg/ Sodium (Chloride) 250 mls @ 250 mls/hr IVPB DAILY [facility] PRN Reason: Protocol Last Admin: 11/01/17 09:17 Dose: 250 mls/hr Insulin Lispro Protam/Lispro Human (Humalog Mix 75/25) 5 units SC ACHS [facility] Last Admin: 11/01/17 11:50 Dose: 5 units Levothyroxine Sodium (Synthroid) 100 mcg PO DAILY@0630 [facility] Last Admin: 11/01/17 06:36 Dose: 100 mcg Nitroglycerin (Nitro-Bid 2% Oint) 1 ea TOP PRN PRN PRN Reason: Other Last Admin: 10/31/17 11:08 Dose: 1 ea Nystatin (Nystop Topical Powder) 1 applic TOP TID [facility] Last Admin: 11/01/17 09:19 Dose: 1 applic Oseltamivir Phosphate (Tamiflu Cap) 75 mg PO BID [facility] PRN Reason: Protocol Last Admin: 11/01/17 09:19 Dose: 75 mg Phenylephrine HCl (Preparation H Suppositories) 1 supp [place] BID [facility] - Labs Labs: 11/01/17 10:00 11/01/17 10:00 PT 12.3 Seconds (9.8-13.1) 10/30/17 10:30 INR 1.1 (0.9-1.2) 10/30/17 10:30 APTT 31.4 Seconds (25.6-37.1) 10/30/17 10:30 - Constitutional Appears: Chronically Ill - Head Exam Head Exam: NORMAL INSPECTION - Eye Exam Additional comments: blind L Eye - ENT Exam ENT Exam: Normal Exam - Neck Exam Neck Exam: Normal Inspection - Respiratory Exam Respiratory Exam: Decreased Breath Sounds (at bases) - Cardiovascular Exam Cardiovascular Exam: REGULAR RHYTHM - GI/Abdominal Exam GI & Abdominal Exam: Soft, Normal Bowel Sounds Additional comments: suprapubic tenderness - Extremities Exam Additional comments: L TMA - Neurological Exam Neurological Exam: Awake (O x 2 , no focal motor deficit , generalized weakness) - Psychiatric Exam Psychiatric exam: Anxious - Skin Skin Exam: Warm Assessment and Plan (1) Influenza A Status: Acute (2) COPD (chronic obstructive pulmonary disease) Status: Chronic (3) CHF (congestive heart failure) Status: Chronic (4) Generalized weakness Status: Chronic (5) HTN (hypertension) Status: Chronic (6) Diabetes mellitus Status: Chronic (7) Hypothyroidism Status: Chronic (8) Osteoarthritis Status: Chronic (9) Hx of CABG Status: Chronic (10) Hypercholesterolemia Status: Chronic - Assessment and Plan (Free Text) Plan: continue Tamiflu, Zithromax , DuoNeb and rest of treatment
--- NOTE | 2017-11-01 17:27 | CT ---
PROCEDURE: CT Chest without contrast HISTORY: CHF exacerbation, influenza COMPARISON: 10/13/2017. TECHNIQUE: Contiguous axial images were obtained through the chest without intravenous contrast enhancement. Sagittal and coronal reconstructions were performed. Radiation dose (DLP): 654.16 mGy-cm. This CT exam was performed using one or more of the following dose reduction techniques: Automated exposure control, adjustment of the mA and/or kV according to patient size, and/or use of iterative reconstruction technique. FINDINGS: LUNGS: Interval improvement left lower lobe infiltrates, Worsening consolidative changes with air bronchograms right lower lobe. MEDIASTINUM: Unremarkable thoracic aorta. No aneurysm. Cardiomegaly. No evidence of acute, significant cardiovascular disease. Main pulmonary artery unremarkable. No vascular congestion. No lymphadenopathy. PLEURA: No pleural fluid. No pneumothorax. BONES: No fracture. No destructive lesion. UPPER ABDOMEN: Grossly unremarkable. OTHER FINDINGS: None. IMPRESSION: Worsening right lower lobe infiltrates with air bronchograms likely pneumonia. Interval improvement left lower lobe infiltrate.
[2017-11-01] MEDS: Phenylephrine 0.25 % Supp PR SCH (18:18)
[2017-11-01] MEDS: Nitroglycerin 2% Ointment Foilpak UD TOP PRN (19:15)
[2017-11-02] MEDS: Levothyroxine 100 MCG TAB PO SCH (07:25)
[2017-11-02] MEDS: Insulin Lispro Mix 75/25 100 units/ml (HumaLog) 10ml SC SCH ×4 (07:28→21:41)
[2017-11-02] MEDS: Albuterol-Ipratrop 3 mg / 0.5 (3 ml) UD INH SCH ×6 (07:39→20:00)
[2017-11-02] MEDS: Enoxaparin 40 mg Syringe SC SCH (08:21)
[2017-11-02] MEDS: Phenylephrine 0.25 % Supp PR SCH ×3 (08:22→21:40)
[2017-11-02] MEDS: Azithromycin 500 MG in Sodium Chloride 0.9% 250 ML IVPB SCH (10:33)
[2017-11-02] MEDS: levoFLOXacin 500 mg in D5W 500 MG/100 ML BAG IVPB SCH (11:30)
[2017-11-02] MEDS: Nitroglycerin 2% Ointment Foilpak UD TOP PRN (18:49)
[2017-11-03] MEDS: Levothyroxine 100 MCG TAB PO SCH (06:20)
[2017-11-03 06:44] LABS: HEMOGLOBIN 9.9 g/dL (12.0-16.0); MEAN CELL VOLUME 93.5 fl (81.0-99.0); MEAN CORPUSCULAR HEMOGLOBIN 30.5 pg (27.0-31.0); MEAN CORPUSCULAR HGB CONC 32.6 g/dL (33.0-37.0); RBC 3.25 Mil/uL (3.80-5.20); RED CELL DISTRIBUTION WIDTH 15.2 % (11.5-14.5); WHITE BLOOD COUNT 3.9 K/uL (4.8-10.8)
[2017-11-03 07:06] LABS: BLOOD UREA NITROGEN 27 mg/dl (7-17); CALCIUM 8.5 mg/dL (8.4-10.2); GFR AFRICAN-AMERICAN > 60; GFR NON-AFRICAN AMERICAN 53
[2017-11-03] MEDS: Insulin Lispro Mix 75/25 100 units/ml (HumaLog) 10ml SC SCH ×4 (08:10→22:18)
[2017-11-03] MEDS: Enoxaparin 40 mg Syringe SC SCH (08:10)
[2017-11-03] MEDS: Albuterol-Ipratrop 3 mg / 0.5 (3 ml) UD INH SCH ×4 (08:20→19:24)
[2017-11-03] MEDS: Azithromycin 500 MG in Sodium Chloride 0.9% 250 ML IVPB SCH (08:29)
[2017-11-03] MEDS: levoFLOXacin 500 mg in D5W 500 MG/100 ML BAG IVPB SCH (08:32)
--- NOTE | 2017-11-03 10:10 | CP.PCM.PN ---
Subjective - Date & Time of Evaluation Date of Evaluation: 11/02/17 (This note is for 11/02/17.) Time of Evaluation: 15:15 - Subjective Subjective: F/U Influenza A Pt awake, talking with family at bedside, occasional dry cough, no SOB, no chest congestion. Objective - Vital Signs/Intake and Output Vital Signs (last 24 hours): Temp Pulse Resp BP Pulse Ox 97.4 F L 64 18 189/75 H 100 11/03/17 08:07 11/03/17 08:11 11/03/17 08:07 11/03/17 08:11 11/03/17 08:07 - Medications Medications: Current Medications Acetaminophen (Tylenol 325 Mg Supp) 975 mg [place] ONCE PRN PRN Reason: Fever >100.4 F Last Admin: 10/30/17 10:35 Dose: 975 mg Acetaminophen (Tylenol 325mg Tab) 650 mg PO Q6 PRN PRN Reason: Pain, Mild (1-3) Last Admin: 11/03/17 08:29 Dose: 650 mg Albuterol/Ipratropium (Duoneb 3 Mg/0.5 Mg (3 Ml) Ud) 3 ml INH RQID [facility] Last Admin: 11/03/17 08:20 Dose: 3 ml Alprazolam (Xanax) 0.25 mg PO HS PRN PRN Reason: Insomnia Stop: 11/06/17 18:41 Last Admin: 11/02/17 23:48 Dose: 0.25 mg Amlodipine Besylate (Norvasc) 5 mg PO DAILY [facility] Aspirin (Ecotrin) 81 mg PO DAILY [facility] Last Admin: 11/03/17 08:12 Dose: 81 mg Atorvastatin Calcium (Lipitor) 40 mg PO HS [facility] Last Admin: 11/02/17 21:40 Dose: 40 mg Carvedilol (Coreg) 3.125 mg PO BID [facility] Docusate Sodium (Colace) 100 mg PO DAILY PRN PRN Reason: Constipation Enoxaparin Sodium (Lovenox) 40 mg SC DAILY [facility] PRN Reason: Protocol Last Admin: 11/03/17 08:10 Dose: 40 mg Furosemide (Lasix) 20 mg PO Q48H [facility] Last Admin: 11/01/17 18:33 Dose: 20 mg Gabapentin (Neurontin) 100 mg PO BID PRN PRN Reason: Pain, moderate (4-7) Home Med (Ranolazine [Ranexa]) 1,000 mg PO BID [facility] Sodium Chloride (Sodium Chloride 0.9%) 500 mls @ 150 mls/hr IV .Q3H20M [facility] Last Admin: 10/31/17 12:00 Dose: Not Given Azithromycin 500 mg/ Sodium (Chloride) 250 mls @ 250 mls/hr IVPB DAILY [facility] PRN Reason: Protocol Last Admin: 11/03/17 08:29 Dose: 250 mls/hr Levofloxacin/Dextrose (Levaquin 500mg) 500 mg in 100 mls @ 100 mls/hr IVPB DAILY [facility] PRN Reason: Protocol Last Admin: 11/03/17 08:32 Dose: 100 mls/hr Insulin Lispro Protam/Lispro Human (Humalog Mix 75/25) 5 units SC ACHS [facility] Last Admin: 11/03/17 08:10 Dose: 5 units Levothyroxine Sodium (Synthroid) 100 mcg PO DAILY@0630 [facility] Last Admin: 11/03/17 06:20 Dose: 100 mcg Nitroglycerin (Nitro-Bid 2% Oint) 1 ea TOP PRN PRN PRN Reason: Other Last Admin: 11/02/17 18:49 Dose: 1 ea Nystatin (Nystop Topical Powder) 1 applic TOP TID [facility] Last Admin: 11/03/17 08:10 Dose: 1 applic Oseltamivir Phosphate (Tamiflu Cap) 75 mg PO BID [facility] PRN Reason: Protocol Last Admin: 11/03/17 08:11 Dose: 75 mg Phenylephrine HCl (Preparation H Suppositories) 1 supp GA BID [facility] Last Admin: 11/02/17 21:40 Dose: 1 supp - Labs Labs: 11/03/17 05:30 11/03/17 05:30 PT 12.3 Seconds (9.8-13.1) 10/30/17 10:30 INR 1.1 (0.9-1.2) 10/30/17 10:30 APTT 31.4 Seconds (25.6-37.1) 10/30/17 10:30 - Constitutional Appears: Chronically Ill - Head Exam Head Exam: NORMAL INSPECTION - Eye Exam Eye Exam: PERRL (R eye, bkind L eye) - ENT Exam ENT Exam: Normal Exam - Neck Exam Neck Exam: Normal Inspection - Respiratory Exam Respiratory Exam: Decreased Breath Sounds (at bases) - Cardiovascular Exam Cardiovascular Exam: REGULAR RHYTHM - GI/Abdominal Exam GI & Abdominal Exam: Soft, Normal Bowel Sounds Additional comments: Suprapubic tenderness. - Extremities Exam Additional comments: L TMA - Neurological Exam Neurological Exam: Awake Additional comments: Ox2, no focal motor deficit, generalized weakness. - Psychiatric Exam Psychiatric exam: Anxious - Skin Skin Exam: Warm Assessment and Plan (1) Influenza A Status: Acute (2) COPD (chronic obstructive pulmonary disease) Status: Chronic (3) CHF (congestive heart failure) Status: Chronic (4) Generalized weakness Status: Chronic (5) HTN (hypertension) Status: Chronic (6) Diabetes mellitus Status: Chronic (7) Hypothyroidism Status: Chronic (8) Osteoarthritis Status: Chronic (9) Hx of CABG Status: Chronic (10) Hypercholesterolemia Status: Chronic - Assessment and Plan (Free Text) Plan: Continue Zithromax. Levaquin , Tamiflu and rest of Tx.
[2017-11-03] MEDS: Phenylephrine 0.25 % Supp PR SCH ×2 (10:32→22:17)
--- NOTE | 2017-11-03 14:25 | CP.PCM.CON ---
History of Present Illness - History of Present Illness History of Present Illness: Pt. has had weakness and decreased responsiveness for 2 days. Cough, nasal congestion, runny nose. Baseline does not move around or walk. Pt. was sent home from here 2 days ago and talking more. Was admitted then for chest pain. Was admitted few days before that for uti/anemia. Pt. not on antibiotics currently. FOUND TO HAVE iNFLUENZA A, PROB PNEUUMONIA CULTURES SO FAR NEGATIVE Review of Systems - Review of Systems All systems: reviewed and no additional remarkable complaints except - Constitutional Constitutional: As Per HPI - EENT Eyes: absent: As Per HPI, Blind Spots, Blurred Vision, Change in Vision, Decreased Night Vision, Diplopia, Discharge, Dry Eye, Exophthalmos, Floaters, Irritation, Itchy Eyes, Loss of Peripheral Vision, Pain, Photophobia, Requires Corrective Lenses, Sees Flashes, Spots in Vision, Tunnel Vision, Other Visual Disturbances, Loss of Vision, Other Ears: absent: As Per HPI, Decreased Hearing, Ear Discharge, Ear Pain, Tinnitus, Abnormal Hearing, Disequilibrium, Dizziness, Other Nose/Mouth/Throat: absent: As Per HPI, Epistaxis, Nasal Congestion, Nasal Discharge, Nasal Obstruction, Nasal Trauma, Nose Pain, Post Nasal Drip, Sinus Pain, Sinus Pressure, Bleeding Gums, Change in Voice, Dental Pain, Dry Mouth, Dysphagia, Halitosis, Hoarsness, Lip Swelling, Mouth Lesions, Mouth Pain, Odynophagia, Sore Throat, Throat Swelling, Tongue Swelling, Facial Pain, Neck Pain, Neck Mass, Other - Breasts Breasts: absent: As Per HPI, Change in Shape, Mass, Pain, Nipple Discharge, Nipple Inversion, Skin Changes, Swelling, Other - Cardiovascular Cardiovascular: As Per HPI - Respiratory Respiratory: As Per HPI, Cough, Dyspnea - Gastrointestinal Gastrointestinal: absent: As Per HPI, Abdominal Pain, Belching, Bloating, Change in Bowel Habits, Change in Stool Character, Coffee Ground Emesis, Constipation, Cramping, Diarrhea, Dyspepsia, Dysphagia, Early Satiety, Excessive Flatus, Fecal Incontinence, Heartburn, Hematemesis, Hematochezia, Loose Stools, Melena, Nausea, Odynophagia, Temesmus, Vomiting, Other - Genitourinary Genitourinary: absent: As Per HPI, Change in Urinary Stream, Difficulty Urinating, Dysuria, Flank Pain, Hematuria, Pyuria, Nocturia, Urinary Incontinence, Urinary Frequency, Urinary Hesitance, Urinary Urgency, Voiding Freq/Small Amts, Freq UTI, Hx Renal/Bladder Calculi, Hx /Renal Surgery, Bladder Distension, Other - Reproductive: Female Reproductive:Female: absent: As Per HPI, Amenorrhea, Amenorrhea/ Control, Currently Menstual, Cycle <21 Days, Cycle >35 Days, Cycle Variable, Menses 1-7 Days, Menses >/= 8 Days, Menses Variable, Cycle > 4 Weeks Between, No Menses for 6 Months, Heavy Menses, Light Menses, Normal Menses, Spotting Between Cycles , S/P Hysterectomy, Menopausal, Post Menopausal, Premenarche, Abnormal Vaginal Bleeding, Dysmenorrhea, Dyspareunia, Genital Lesions, Genital Pruritis, Pelvic Pain, Prolapse Symptoms, Sexual Dysfunction, Vaginal Discharge, Vaginal Dryness , Vaginal Odor, Vaginal Pruritis, Other - Menstruation Menstruation: absent: As Per HPI, Amenorrhea, Amenorrhea/ Control, Currently Menstual, Cycle <21 Days, Cycle >35 Days, Cycle Variable, Menses 1-7 Days, Menses >/= 8 Days, Menses Variable, Cycle > 4 Weeks Between, No Menses for 6 Months, Heavy Menses, Light Menses, Normal Menses, Spotting Between Cycles , S/P Hysterectomy, Menopausal, Post Menopausal, Premenarche, Abnormal Vaginal Bleeding, Dysmenorrhea, Other - Musculoskeletal Musculoskeletal: absent: As Per HPI, Abnormal Gait, Arthralgias, Atrophy, Back Pain, Deformity, Joint Swelling, Limited Range of Motion, Loss of Height, Muscle Cramps, Muscle Weakness, Myalgias, Neck Pain, Numbness, Radiating Pain into Limb, Stiffness, Tingling, Other - Integumentary Integumentary: absent: As Per HPI, Acne, Alopecia, Bleeding Lesions, Change in Hair, Change in Nails, Change in Pigmentation, Changing Lesions, Dry Skin, Erythema, Furuncle, Hirsutism, Lesions, New Lesions, Non-Healing Lesions, Photosensitivity, Pruritus, Rash, Skin Pain, Skin Ulcer, Sores, Striae, Swelling , Unusual Bruising, Wounds, Jaundice, Other - Neurological Neurological: absent: As Per HPI, Abnormal Gait, Abnormal Hearing, Abnormal Movements, Abnormal Speech, Behavioral Changes, Burning Sensations, Confusion, Convulsions, Disequilibrium, Dizziness, Numbness, Focal Weakness, Frequent Falls , Headaches, Lack of Coordination, Loss of Vision, Memory Loss, Paresthesias, Radicular Pain, Restless Legs, Sensory Deficit, Syncope, Tingling, Tremor, Vertigo, Weakness, Other Visual Disturbances, Other - Psychiatric Psychiatric: absent: As Per HPI, Abnormal Sleep Pattern, Anhedonia, Anxiety, Auditory Hallucinations, Behavioral Changes, Change in Appetite, Change in Libido, Confusion, Depression, Difficulty Concentrating, Hallucinations, Homicidal Ideation, Hopelessness, Irritability, Memory Loss, Mood Swings, Panic Attacks, Paranoia, Suicidal Ideation, Visual Hallucinations, Tactile Hallucinations, Other - Endocrine Endocrine: absent: As Per HPI, Change in Body Appearance, Change in Libido, Cold Intolorance, Deepening of Voice, Excessive Sweating, Fatigue, Flushing, Heat Intolorance, Increase in Ring/Shoe/Hat Size, Palpitations, Polydipsia, Polyphagia, Polyuria, Other - Hematologic/Lymphatic Hematologic: absent: As Per HPI, Easy Bleeding, Easy Bruising, Lymphadenopathy, Other Past Patient History - Infectious Disease Hx of Infectious Diseases: None - Tetanus Immunizations Tetanus Immunization: Unknown - Past Medical History & Family History Past Medical History?: Yes - Past Social History Smoking Status: Never Smoked Alcohol: None Drugs: Denies Home Situation {Lives}: With Family - CARDIAC Hx Cardiac Disorders: Yes Hx Congestive Heart Failure: Yes Hx Hypercholesterolemia: Yes Hx Hypertension: Yes Hx Pacemaker: No Hx Peripheral Edema: Yes - PULMONARY Hx Respiratory Disorders: Yes Hx Asthma: Yes Hx Bronchitis: Yes Hx Chronic Obstructive Pulmonary Disease (COPD): Yes Hx Pneumonia: Yes - NEUROLOGICAL Hx Neurological Disorder: Yes Hx Dementia: Yes - HEENT Hx HEENT Problems: Yes Hx Blind: Yes (left eye) Other/Comment: Hard of hear R ear., left eye blind - RENAL Hx Chronic Kidney Disease: Yes (mild renal insufficiecy.) - ENDOCRINE/METABOLIC Hx Endocrine Disorders: Yes Hx Hypothyroidism: Yes - HEMATOLOGICAL/ONCOLOGICAL Hx Blood Disorders: Yes Hx Anemia: Yes Hx Human Immunodeficiency Virus (HIV): No - INTEGUMENTARY Hx Dermatological Problems: No - MUSCULOSKELETAL/RHEUMATOLOGICAL Hx Musculoskeletal Disorders: Yes Hx Arthritis: Yes Hx Rheumatoid Arthritis: No - GASTROINTESTINAL Hx Gastrointestinal Disorders: Yes Hx Gastritis: Yes - GENITOURINARY/GYNECOLOGICAL Hx Genitourinary Disorders: Yes Hx Incontinence: Yes Hx Urinary Tract Infection: Yes - PSYCHIATRIC Hx Psychophysiologic Disorder: Yes Hx Anxiety: Yes Hx Depression: Yes - SURGICAL HISTORY Hx Surgeries: Yes Hx Cholecystectomy: Yes Hx Coronary Artery Bypass Graft: Yes (x4) Hx Coronary Stent: Yes - ANESTHESIA Hx Anesthesia: Yes Hx Anesthesia Reactions: No Hx Malignant Hyperthermia: No Meds Allergies/Adverse Reactions: Allergies Allergy/AdvReac Type Severity Reaction Status Date / Time kiwi Allergy Mild RASH Verified 10/18/17 18:48 morphine Allergy Mild RASH Verified 10/18/17 18:48 Penicillins Allergy Mild RASH Verified 10/18/17 18:48 pineapple Allergy Mild RASH Verified 10/18/17 18:48 watermelon Allergy Mild RASH Verified 10/18/17 18:48 - Medications Medications: Current Medications Acetaminophen (Tylenol 325 Mg Supp) 975 mg [place] ONCE PRN PRN Reason: Fever >100.4 F Last Admin: 10/30/17 10:35 Dose: 975 mg Acetaminophen (Tylenol 325mg Tab) 650 mg PO Q6 PRN PRN Reason: Pain, Mild (1-3) Last Admin: 11/03/17 08:29 Dose: 650 mg Albuterol/Ipratropium (Duoneb 3 Mg/0.5 Mg (3 Ml) Ud) 3 ml INH RQID [facility] Last Admin: 11/03/17 11:03 Dose: 3 ml Alprazolam (Xanax) 0.25 mg PO HS PRN PRN Reason: Insomnia Stop: 11/06/17 18:41 Last Admin: 11/02/17 23:48 Dose: 0.25 mg Amlodipine Besylate (Norvasc) 5 mg PO DAILY [facility] Last Admin: 11/03/17 10:34 Dose: 5 mg Aspirin (Ecotrin) 81 mg PO DAILY [facility] Last Admin: 11/03/17 08:12 Dose: 81 mg Atorvastatin Calcium (Lipitor) 40 mg PO HS [facility] Last Admin: 11/02/17 21:40 Dose: 40 mg Carvedilol (Coreg) 3.125 mg PO BID [facility] Docusate Sodium (Colace) 100 mg PO DAILY PRN PRN Reason: Constipation Enoxaparin Sodium (Lovenox) 40 mg SC DAILY [facility] PRN Reason: Protocol Last Admin: 11/03/17 08:10 Dose: 40 mg Furosemide (Lasix) 20 mg PO Q48H [facility] Last Admin: 11/01/17 18:33 Dose: 20 mg Gabapentin (Neurontin) 100 mg PO BID PRN PRN Reason: Pain, moderate (4-7) Home Med (Ranolazine [Ranexa]) 1,000 mg PO BID [facility] Sodium Chloride (Sodium Chloride 0.9%) 500 mls @ 150 mls/hr IV .Q3H20M [facility] Last Admin: 10/31/17 12:00 Dose: Not Given Azithromycin 500 mg/ Sodium (Chloride) 250 mls @ 250 mls/hr IVPB DAILY [facility] PRN Reason: Protocol Last Admin: 11/03/17 08:29 Dose: 250 mls/hr Levofloxacin/Dextrose (Levaquin 500mg) 500 mg in 100 mls @ 100 mls/hr IVPB DAILY [facility] PRN Reason: Protocol Last Admin: 11/03/17 08:32 Dose: 100 mls/hr Insulin Lispro Protam/Lispro Human (Humalog Mix 75/25) 5 units SC ACHS [facility] Last Admin: 11/03/17 10:38 Dose: 5 units Levothyroxine Sodium (Synthroid) 100 mcg PO DAILY@0630 [facility] Last Admin: 11/03/17 06:20 Dose: 100 mcg Nitroglycerin (Nitro-Bid 2% Oint) 1 ea TOP PRN PRN PRN Reason: Other Last Admin: 11/02/17 18:49 Dose: 1 ea Nystatin (Nystop Topical Powder) 1 applic TOP TID [facility] Last Admin: 11/03/17 08:10 Dose: 1 applic Oseltamivir Phosphate (Tamiflu Cap) 75 mg PO BID [facility] PRN Reason: Protocol Last Admin: 11/03/17 08:11 Dose: 75 mg Phenylephrine HCl (Preparation H Suppositories) 1 supp TN BID [facility] Last Admin: 11/03/17 10:32 Dose: Not Given Physical Exam - Constitutional Appears: Confused, Cachectic, Chronically Ill - Head Exam Head Exam: ATRAUMATIC, NORMAL INSPECTION, NORMOCEPHALIC - Eye Exam Eye Exam: EOMI, PERRL. absent: Scleral icterus - ENT Exam ENT Exam: Mucous Membranes Dry, Normal External Ear Exam, Normal Oropharynx - Neck Exam Neck exam: Negative for: Lymphadenopathy, Thyromegaly - Respiratory Exam Respiratory Exam: Decreased Breath Sounds, Prolonged Expiratory Phase, Rhonchi - Cardiovascular Exam Cardiovascular Exam: REGULAR RHYTHM, +S1, +S2 - GI/Abdominal Exam GI & Abdominal Exam: Diminished Bowel Sounds, Distended, Soft. absent: Rebound , Rigid, Tenderness - Rectal Exam Rectal Exam: Deferred - Exam Exam: NORMAL INSPECTION - Extremities Exam Extremities exam: Positive for: pedal pulses present. Negative for: calf tenderness, pedal edema, tenderness - Back Exam Back exam: absent: CVA tenderness (L), CVA tenderness (R), paraspinal tenderness - Neurological Exam Neurological exam: Alert, CN II-XII Intact - Psychiatric Exam Psychiatric exam: Depressed - Skin Skin Exam: Dry Results - Vital Signs Recent Vital Signs: Last Vital Signs Temp 97.2 F L 11/03/17 12:18 Pulse 58 L 11/03/17 12:18 Resp 18 11/03/17 12:18 BP 164/76 H 11/03/17 12:18 Pulse Ox 98 11/03/17 12:18 - Labs Result Diagrams: 11/03/17 05:30 11/03/17 05:30 Labs: Laboratory Results - last 24 hr 11/02/17 11/02/17 11/02/17 14:49 16:33 21:14 WBC RBC Hgb Hct MCV MCH MCHC RDW Plt Count Sodium Potassium Chloride Carbon Dioxide Anion Gap BUN Creatinine Est GFR ( Amer) Est GFR (Non-Af Amer) POC Glucose (mg/dL) 253 H 215 H 236 H Random Glucose Calcium 11/03/17 11/03/17 11/03/17 05:30 05:30 05:33 WBC 3.9 L RBC 3.25 L Hgb 9.9 L Hct 30.4 L MCV 93.5 MCH 30.5 MCHC 32.6 L RDW 15.2 H Plt Count 156 Sodium 138 Potassium 4.8 Chloride 99 Carbon Dioxide 35 H Anion Gap 9 L BUN 27 H Creatinine 1.0 Est GFR ( Amer) > 60 Est GFR (Non-Af Amer) 53 POC Glucose (mg/dL) 278 H Random Glucose 289 H Calcium 8.5 11/03/17 10:36 WBC RBC Hgb Hct MCV MCH MCHC RDW Plt Count Sodium Potassium Chloride Carbon Dioxide Anion Gap BUN Creatinine Est GFR ( Amer) Est GFR (Non-Af Amer) POC Glucose (mg/dL) 321 H Random Glucose Calcium Assessment & Plan (1) Influenza A Status: Acute Priority: High (2) Sepsis Status: Acute (3) CHF (congestive heart failure) Status: Chronic Priority: Medium (4) CAD (coronary artery disease) Status: Acute Priority: Medium (5) Chr obstructive pulmonary disease w/ acute lower respiratory infxn Status: Acute (6) PNA (pneumonia) Status: Acute - Assessment and Plan (Free Text) Assessment: AWAIT CULTURES CONT IV ANTIBIOTICS AND BRONCHODILATORS
--- NOTE | 2017-11-03 16:43 | CP.PCM.PN ---
Subjective - Date & Time of Evaluation Date of Evaluation: 11/03/17 Time of Evaluation: 13:20 - Subjective Subjective: F/U Influenza A/ COPD Pt with no A/D, no SOB, no CP, family at bedside. Objective - Vital Signs/Intake and Output Vital Signs (last 24 hours): Temp Pulse Resp BP Pulse Ox 97.4 F L 62 20 151/62 H 96 11/03/17 15:23 11/03/17 15:23 11/03/17 15:23 11/03/17 15:23 11/03/17 15:23 - Medications Medications: Current Medications Acetaminophen (Tylenol 325 Mg Supp) 975 mg [place] ONCE PRN PRN Reason: Fever >100.4 F Last Admin: 10/30/17 10:35 Dose: 975 mg Acetaminophen (Tylenol 325mg Tab) 650 mg PO Q6 PRN PRN Reason: Pain, Mild (1-3) Last Admin: 11/03/17 08:29 Dose: 650 mg Albuterol/Ipratropium (Duoneb 3 Mg/0.5 Mg (3 Ml) Ud) 3 ml INH RQID [facility] Last Admin: 11/03/17 15:44 Dose: 3 ml Alprazolam (Xanax) 0.25 mg PO HS PRN PRN Reason: Insomnia Stop: 11/06/17 18:41 Last Admin: 11/02/17 23:48 Dose: 0.25 mg Amlodipine Besylate (Norvasc) 5 mg PO DAILY [facility] Last Admin: 11/03/17 10:34 Dose: 5 mg Aspirin (Ecotrin) 81 mg PO DAILY [facility] Last Admin: 11/03/17 08:12 Dose: 81 mg Atorvastatin Calcium (Lipitor) 40 mg PO HS [facility] Last Admin: 11/02/17 21:40 Dose: 40 mg Carvedilol (Coreg) 3.125 mg PO BID [facility] Docusate Sodium (Colace) 100 mg PO DAILY PRN PRN Reason: Constipation Enoxaparin Sodium (Lovenox) 40 mg SC DAILY [facility] PRN Reason: Protocol Last Admin: 11/03/17 08:10 Dose: 40 mg Furosemide (Lasix) 20 mg PO Q48H [facility] Last Admin: 11/01/17 18:33 Dose: 20 mg Gabapentin (Neurontin) 100 mg PO BID PRN PRN Reason: Pain, moderate (4-7) Home Med (Ranolazine [Ranexa]) 1,000 mg PO BID [facility] Sodium Chloride (Sodium Chloride 0.9%) 500 mls @ 150 mls/hr IV .Q3H20M [facility] Last Admin: 10/31/17 12:00 Dose: Not Given Azithromycin 500 mg/ Sodium (Chloride) 250 mls @ 250 mls/hr IVPB DAILY [facility] PRN Reason: Protocol Last Admin: 11/03/17 08:29 Dose: 250 mls/hr Levofloxacin/Dextrose (Levaquin 500mg) 500 mg in 100 mls @ 100 mls/hr IVPB DAILY [facility] PRN Reason: Protocol Last Admin: 11/03/17 08:32 Dose: 100 mls/hr Insulin Lispro Protam/Lispro Human (Humalog Mix 75/25) 5 units SC ACHS [facility] Last Admin: 11/03/17 10:38 Dose: 5 units Levothyroxine Sodium (Synthroid) 100 mcg PO DAILY@0630 [facility] Last Admin: 11/03/17 06:20 Dose: 100 mcg Nitroglycerin (Nitro-Bid 2% Oint) 1 ea TOP PRN PRN PRN Reason: Other Last Admin: 11/02/17 18:49 Dose: 1 ea Nystatin (Nystop Topical Powder) 1 applic TOP TID [facility] Last Admin: 11/03/17 08:10 Dose: 1 applic Oseltamivir Phosphate (Tamiflu Cap) 75 mg PO BID [facility] PRN Reason: Protocol Last Admin: 11/03/17 08:11 Dose: 75 mg Phenylephrine HCl (Preparation H Suppositories) 1 supp RI BID [facility] Last Admin: 11/03/17 10:32 Dose: Not Given - Labs Labs: 11/03/17 05:30 11/03/17 05:30 PT 12.3 Seconds (9.8-13.1) 10/30/17 10:30 INR 1.1 (0.9-1.2) 10/30/17 10:30 APTT 31.4 Seconds (25.6-37.1) 10/30/17 10:30 - Constitutional Appears: Chronically Ill - Head Exam Head Exam: NORMAL INSPECTION - Eye Exam Eye Exam: PERRL (R eye, L eye blind.) - ENT Exam Additional comments: Hard of hearing R ear - Neck Exam Neck Exam: Normal Inspection - Respiratory Exam Respiratory Exam: Decreased Breath Sounds (at bases) - Cardiovascular Exam Cardiovascular Exam: REGULAR RHYTHM - GI/Abdominal Exam GI & Abdominal Exam: Soft, Tenderness (suprapubic), Normal Bowel Sounds - Extremities Exam Additional comments: L TMA - Neurological Exam Neurological Exam: Awake Additional comments: Ox2, no focal motor deficit, generalized weakness. - Psychiatric Exam Psychiatric exam: Anxious - Skin Skin Exam: Warm Assessment and Plan (1) Influenza A Status: Acute (2) COPD (chronic obstructive pulmonary disease) Status: Chronic (3) CHF (congestive heart failure) Status: Chronic (4) Generalized weakness Status: Chronic (5) HTN (hypertension) Status: Chronic (6) Diabetes mellitus Status: Chronic (7) Hypothyroidism Status: Chronic (8) Osteoarthritis Status: Chronic (9) Hx of CABG Status: Chronic (10) Hypercholesterolemia Status: Chronic - Assessment and Plan (Free Text) Plan: Continue Levaquin, Zithromax, Tamiflu , Duoneb and rest of Tx.
[2017-11-03] MEDS ORDERED: Sodium Chloride 3% for Inhalation 4 ML VIAL.NEB IH PRN (19:18)
[2017-11-04] MEDS: Levothyroxine 100 MCG TAB PO SCH (06:45)
[2017-11-04] MEDS: Albuterol-Ipratrop 3 mg / 0.5 (3 ml) UD INH SCH ×4 (08:01→19:31)
[2017-11-04] MEDS: Azithromycin 500 MG in Sodium Chloride 0.9% 250 ML IVPB SCH (09:17)
[2017-11-04] MEDS: Enoxaparin 40 mg Syringe SC SCH ×2 (09:17→15:52)
[2017-11-04] MEDS: Insulin Lispro Mix 75/25 100 units/ml (HumaLog) 10ml SC SCH ×4 (09:18→22:22)
[2017-11-04] MEDS: levoFLOXacin 500 mg in D5W 500 MG/100 ML BAG IVPB SCH (09:19)
[2017-11-04] MEDS: Phenylephrine 0.25 % Supp PR SCH ×2 (09:26→17:39)
--- NOTE | 2017-11-04 12:24 | RAD ---
HISTORY: f/u pna COMPARISON: CT chest dated 11/01/2017. FINDINGS: LUNGS: Stable chronic prominence of the bilateral interstitial markings with superimposed pulmonary vascular congestion and bibasilar atelectasis. PLEURA: No pneumothorax apparent. CARDIOVASCULAR: Prior sternotomy with sternal wires and surgical clips redemonstrated. Atherosclerotic aortic calcifications. Cardiomediastinal silhouette stably enlarged. OSSEOUS STRUCTURES: Unchanged. VISUALIZED UPPER ABDOMEN: Right upper quadrant surgical clips redemonstrated. OTHER FINDINGS: None. IMPRESSION: Pulmonary vascular congestion and bibasilar atelectasis.
--- NOTE | 2017-11-04 15:35 | CP.PCM.PN ---
Subjective - Date & Time of Evaluation Date of Evaluation: 11/04/17 Time of Evaluation: 10:20 - Subjective Subjective: F/U Influenza A, COPD no AD , occasional dry cough , oriented x2 , Patient's family at bedside Objective - Vital Signs/Intake and Output Vital Signs (last 24 hours): Temp Pulse Resp BP Pulse Ox 98.2 F 59 L 18 143/69 95 11/04/17 12:49 11/04/17 12:49 11/04/17 12:49 11/04/17 12:49 11/04/17 12:49 - Medications Medications: Current Medications Acetaminophen (Tylenol 325 Mg Supp) 975 mg MN ONCE PRN PRN Reason: Fever >100.4 F Last Admin: 10/30/17 10:35 Dose: 975 mg Acetaminophen (Tylenol 325mg Tab) 650 mg PO Q6 PRN PRN Reason: Pain, Mild (1-3) Last Admin: 11/03/17 22:24 Dose: 650 mg Albuterol/Ipratropium (Duoneb 3 Mg/0.5 Mg (3 Ml) Ud) 3 ml INH RQID [facility] Last Admin: 11/04/17 15:31 Dose: 3 ml Alprazolam (Xanax) 0.25 mg PO HS PRN PRN Reason: Insomnia Stop: 11/06/17 18:41 Last Admin: 11/03/17 22:16 Dose: 0.25 mg Amlodipine Besylate (Norvasc) 5 mg PO DAILY [facility] Last Admin: 11/04/17 09:15 Dose: 5 mg Aspirin (Ecotrin) 81 mg PO DAILY [facility] Last Admin: 11/04/17 09:18 Dose: 81 mg Atorvastatin Calcium (Lipitor) 40 mg PO HS [facility] Last Admin: 11/03/17 22:15 Dose: 40 mg Carvedilol (Coreg) 3.125 mg PO BID [facility] Last Admin: 11/04/17 09:14 Dose: 3.125 mg Docusate Sodium (Colace) 100 mg PO DAILY PRN PRN Reason: Constipation Enoxaparin Sodium (Lovenox) 40 mg SC DAILY [facility] PRN Reason: Protocol Last Admin: 11/04/17 09:17 Dose: 40 mg Furosemide (Lasix) 20 mg PO Q48H [facility] Last Admin: 11/03/17 22:16 Dose: 20 mg Gabapentin (Neurontin) 100 mg PO BID PRN PRN Reason: Pain, moderate (4-7) Home Med (Ranolazine [Ranexa]) 1,000 mg PO BID [facility] Sodium Chloride (Sodium Chloride 0.9%) 500 mls @ 150 mls/hr IV .Q3H20M [facility] Last Admin: 10/31/17 12:00 Dose: Not Given Azithromycin 500 mg/ Sodium (Chloride) 250 mls @ 250 mls/hr IVPB DAILY [facility] PRN Reason: Protocol Last Admin: 11/04/17 09:17 Dose: 250 mls/hr Levofloxacin/Dextrose (Levaquin 500mg) 500 mg in 100 mls @ 100 mls/hr IVPB DAILY [facility] PRN Reason: Protocol Last Admin: 11/04/17 09:19 Dose: 100 mls/hr Insulin Lispro Protam/Lispro Human (Humalog Mix 75/25) 5 units SC ACHS [facility] Last Admin: 11/04/17 12:18 Dose: 5 units Levothyroxine Sodium (Synthroid) 100 mcg PO DAILY@0630 [facility] Last Admin: 11/04/17 06:45 Dose: 100 mcg Nitroglycerin (Nitro-Bid 2% Oint) 1 ea TOP PRN PRN PRN Reason: Other Last Admin: 11/02/17 18:49 Dose: 1 ea Nystatin (Nystop Topical Powder) 1 applic TOP TID [facility] Last Admin: 11/04/17 09:15 Dose: 1 applic Phenylephrine HCl (Preparation H Suppositories) 1 supp MN BID [facility] Last Admin: 11/04/17 09:26 Dose: 1 supp - Labs Labs: 11/03/17 05:30 11/03/17 05:30 PT 12.3 Seconds (9.8-13.1) 10/30/17 10:30 INR 1.1 (0.9-1.2) 10/30/17 10:30 APTT 31.4 Seconds (25.6-37.1) 10/30/17 10:30 - Constitutional Appears: Chronically Ill - Head Exam Head Exam: NORMAL INSPECTION - Eye Exam Eye Exam: PERRL (R eye, L eye blind) - ENT Exam Additional comments: Hard of hearing R ear - Neck Exam Neck Exam: Normal Inspection - Respiratory Exam Respiratory Exam: Decreased Breath Sounds (at bases) - Cardiovascular Exam Cardiovascular Exam: REGULAR RHYTHM - GI/Abdominal Exam GI & Abdominal Exam: Soft, Normal Bowel Sounds Additional comments: Suprapubic tenderness - Extremities Exam Additional comments: L TMA - Neurological Exam Neurological Exam: Awake Additional comments: Ox2, no focal motor deficit, generalized weakness. - Psychiatric Exam Psychiatric exam: Anxious - Skin Skin Exam: Warm Assessment and Plan (1) Influenza A Status: Acute (2) COPD (chronic obstructive pulmonary disease) Status: Chronic (3) CHF (congestive heart failure) Status: Chronic (4) Generalized weakness Status: Chronic (5) HTN (hypertension) Status: Chronic (6) Diabetes mellitus Status: Chronic (7) Hypothyroidism Status: Chronic (8) Osteoarthritis Status: Chronic (9) Hx of CABG Status: Chronic (10) Hypercholesterolemia Status: Chronic - Assessment and Plan (Free Text) Plan: continue Zithromax , Levaquin , Tamiflu treatment completed, blood , urine C-S negative , continue rest of treatment
[2017-11-05 05:37] LABS: HEMOGLOBIN 9.7 g/dL (12.0-16.0); MEAN CELL VOLUME 93.6 fl (81.0-99.0); MEAN CORPUSCULAR HEMOGLOBIN 30.2 pg (27.0-31.0); MEAN CORPUSCULAR HGB CONC 32.3 g/dL (33.0-37.0); RBC 3.2 Mil/uL (3.80-5.20); RED CELL DISTRIBUTION WIDTH 15.2 % (11.5-14.5); WHITE BLOOD COUNT 6.1 K/uL (4.8-10.8)
[2017-11-05] MEDS: Levothyroxine 100 MCG TAB PO SCH (06:07)
[2017-11-05 06:27] LABS: CALCIUM 9.1 mg/dL (8.4-10.2)
[2017-11-05] MEDS: Albuterol-Ipratrop 3 mg / 0.5 (3 ml) UD INH SCH ×3 (08:03→15:56)
[2017-11-05] MEDS: Insulin Lispro Mix 75/25 100 units/ml (HumaLog) 10ml SC SCH ×5 (09:12→17:05)
[2017-11-05] MEDS: Phenylephrine 0.25 % Supp PR SCH ×2 (09:14→17:01)
[2017-11-05] MEDS: Enoxaparin 40 mg Syringe SC SCH (09:14)
[2017-11-05] MEDS: Azithromycin 500 MG in Sodium Chloride 0.9% 250 ML IVPB SCH (09:26)
[2017-11-05] MEDS: levoFLOXacin 500 mg in D5W 500 MG/100 ML BAG IVPB SCH (12:18)
--- NOTE | 2017-11-05 14:00 | CP.PCM.PN ---
Subjective - Date & Time of Evaluation Date of Evaluation: 11/05/17 Time of Evaluation: 08:00 - Subjective Subjective: seen on rounds no new complaints Objective - Vital Signs/Intake and Output Vital Signs (last 24 hours): Temp Pulse Resp BP Pulse Ox 98.6 F 67 20 164/74 H 97 11/05/17 12:00 11/05/17 12:00 11/05/17 12:00 11/05/17 12:00 11/05/17 12:00 - Medications Medications: Current Medications Acetaminophen (Tylenol 325 Mg Supp) 975 mg [place] ONCE PRN PRN Reason: Fever >100.4 F Last Admin: 10/30/17 10:35 Dose: 975 mg Acetaminophen (Tylenol 325mg Tab) 650 mg PO Q6 PRN PRN Reason: Pain, Mild (1-3) Last Admin: 11/03/17 22:24 Dose: 650 mg Albuterol/Ipratropium (Duoneb 3 Mg/0.5 Mg (3 Ml) Ud) 3 ml INH RQID [facility] Last Admin: 11/05/17 12:28 Dose: 3 ml Alprazolam (Xanax) 0.25 mg PO HS PRN PRN Reason: Insomnia Stop: 11/06/17 18:41 Last Admin: 11/03/17 22:16 Dose: 0.25 mg Amlodipine Besylate (Norvasc) 5 mg PO DAILY [facility] Last Admin: 11/05/17 09:13 Dose: 5 mg Aspirin (Ecotrin) 81 mg PO DAILY [facility] Last Admin: 11/05/17 09:11 Dose: 81 mg Atorvastatin Calcium (Lipitor) 40 mg PO HS [facility] Last Admin: 11/04/17 22:21 Dose: 40 mg Carvedilol (Coreg) 3.125 mg PO BID [facility] Last Admin: 11/05/17 09:11 Dose: 3.125 mg Docusate Sodium (Colace) 100 mg PO DAILY PRN PRN Reason: Constipation Furosemide (Lasix) 20 mg PO Q48H [facility] Last Admin: 11/03/17 22:16 Dose: 20 mg Gabapentin (Neurontin) 100 mg PO BID PRN PRN Reason: Pain, moderate (4-7) Home Med (Ranolazine [Ranexa]) 1,000 mg PO BID [facility] Sodium Chloride (Sodium Chloride 0.9%) 500 mls @ 150 mls/hr IV .Q3H20M [facility] Last Admin: 10/31/17 12:00 Dose: Not Given Azithromycin 500 mg/ Sodium (Chloride) 250 mls @ 250 mls/hr IVPB DAILY [facility] PRN Reason: Protocol Last Admin: 11/05/17 09:26 Dose: 250 mls/hr Levofloxacin/Dextrose (Levaquin 500mg) 500 mg in 100 mls @ 100 mls/hr IVPB DAILY [facility] PRN Reason: Protocol Last Admin: 11/05/17 12:18 Dose: 100 mls/hr Insulin Lispro Protam/Lispro Human (Humalog Mix 75/25) 5 units SC ACHS [facility] Last Admin: 11/05/17 12:43 Dose: 5 units Levothyroxine Sodium (Synthroid) 100 mcg PO DAILY@0630 [facility] Last Admin: 11/05/17 06:07 Dose: 100 mcg Nitroglycerin (Nitro-Bid 2% Oint) 1 ea TOP PRN PRN PRN Reason: Other Last Admin: 11/02/17 18:49 Dose: 1 ea Nystatin (Nystop Topical Powder) 1 applic TOP TID [facility] Last Admin: 11/05/17 12:20 Dose: 1 applic Phenylephrine HCl (Preparation H Suppositories) 1 supp MA BID [facility] Last Admin: 11/05/17 09:14 Dose: 1 supp - Labs Labs: 11/05/17 05:00 11/05/17 05:00 PT 12.3 Seconds (9.8-13.1) 10/30/17 10:30 INR 1.1 (0.9-1.2) 10/30/17 10:30 APTT 31.4 Seconds (25.6-37.1) 10/30/17 10:30 - Constitutional Appears: Non-toxic - Head Exam Head Exam: NORMOCEPHALIC - Eye Exam Eye Exam: PERRL - ENT Exam ENT Exam: Mucous Membranes Dry - Neck Exam Neck Exam: absent: Lymphadenopathy - Respiratory Exam Respiratory Exam: Decreased Breath Sounds - Cardiovascular Exam Cardiovascular Exam: REGULAR RHYTHM - GI/Abdominal Exam GI & Abdominal Exam: Distended, Soft - Rectal Exam Rectal Exam: Deferred - Exam Exam: NORMAL INSPECTION Assessment and Plan (1) Influenza A Status: Acute (2) Sepsis Status: Acute (3) CHF (congestive heart failure) Status: Chronic (4) CAD (coronary artery disease) Status: Acute (5) Chr obstructive pulmonary disease w/ acute lower respiratory infxn Status: Acute (6) PNA (pneumonia) Status: Acute
--- NOTE | 2017-11-05 16:08 | CP.PCM.DIS ---
Provider - Provider Date of Admission: 10/30/17 12:15 Attending physician: Sridhar Oliver MD Diagnosis - Discharge Diagnosis (1) Influenza A Status: Acute Priority: High (2) COPD (chronic obstructive pulmonary disease) Status: Chronic Priority: Medium (3) CHF (congestive heart failure) Status: Chronic Priority: Medium (4) Generalized weakness Status: Chronic Priority: High (5) HTN (hypertension) Status: Chronic Priority: Medium (6) Diabetes mellitus Status: Chronic Priority: Medium (7) Hypothyroidism Status: Chronic Priority: Medium (8) Osteoarthritis Status: Chronic Priority: Medium (9) Hx of CABG Status: Chronic Priority: Medium (10) Hypercholesterolemia Status: Chronic Priority: Low Hospital Course - Lab Results Lab Results: Micro Results 11/03/17 06:50 Naris MRSA Culture (Admit) - Final MRSA NOT DETECTED 10/30/17 10:15 Blood Blood Culture - Final NO GROWTH AFTER 5 DAYS 10/30/17 10:15 Blood Gram Stain - Final TEST NOT PERFORMED 10/30/17 12:20 Urine Urine Culture - Final No Growth (<1,000 CFU/ML) Most Recent Lab Values WBC 6.1 K/uL (4.8-10.8) D 11/05/17 05:00 RBC 3.20 Mil/uL (3.80-5.20) L 11/05/17 05:00 Hgb 9.7 g/dL (12.0-16.0) L 11/05/17 05:00 Hct 30.0 % (34.0-47.0) L 11/05/17 05:00 MCV 93.6 fl (81.0-99.0) 11/05/17 05:00 MCH 30.2 pg (27.0-31.0) 11/05/17 05:00 MCHC 32.3 g/dL (33.0-37.0) L 11/05/17 05:00 RDW 15.2 % (11.5-14.5) H 11/05/17 05:00 Plt Count 177 K/uL (130-400) 11/05/17 05:00 MPV 8.1 fl (7.2-11.7) 10/30/17 10:30 Neut % (Auto) 81.6 % (50.0-75.0) H 10/30/17 10:30 Lymph % (Auto) 9.5 % (20.0-40.0) L 10/30/17 10:30 [place] % (Auto) 7.3 % (0.0-10.0) 10/30/17 10:30 Eos % (Auto) 1.0 % (0.0-4.0) 10/30/17 10:30 Baso % (Auto) 0.6 % (0.0-2.0) 10/30/17 10:30 Neut # (Auto) 7.6 K/uL (1.8-7.0) H 10/30/17 10:30 Lymph # (Auto) 0.9 K/uL (1.0-4.3) L 10/30/17 10:30 [place] # (Auto) 0.7 K/uL (0.0-0.8) 10/30/17 10:30 Eos # (Auto) 0.1 K/uL (0.0-0.7) 10/30/17 10:30 Baso # (Auto) 0.1 K/uL (0.0-0.2) 10/30/17 10:30 Neutrophils % (Manual) 79 % (42-75) H 10/30/17 10:30 Lymphocytes % (Manual) 12 % (20-50) L 10/30/17 10:30 Monocytes % (Manual) 8 % (0-10) 10/30/17 10:30 Eosinophils % (Manual) 1 % (0-7) 10/30/17 10:30 Toxic Granulation Present 10/30/17 10:30 Platelet Estimate Normal (NORMAL) 10/30/17 10:30 Hypochromasia (manual) Slight 10/30/17 10:30 PT 12.3 Seconds (9.8-13.1) 10/30/17 10:30 INR 1.1 (0.9-1.2) 10/30/17 10:30 APTT 31.4 Seconds (25.6-37.1) 10/30/17 10:30 pCO2 59 mm/Hg (35-45) H 10/31/17 05:32 pO2 100 mm/Hg (80-100) 10/31/17 05:32 HCO3 32.6 mmol/L (21-28) H 10/31/17 05:32 ABG pH 7.40 (7.35-7.45) 10/31/17 05:32 ABG Total CO2 38.3 mmol/L (22-28) H 10/31/17 05:32 ABG O2 Saturation 97.3 % (95-98) 10/31/17 05:32 ABG O2 Content 15.0 ML/dL (15-23) 10/31/17 05:32 ABG Base Excess 9.9 mmol/L (-2.0-3.0) H 10/31/17 05:32 ABG Hemoglobin 11.0 g/dL (11.7-17.4) L 10/31/17 05:32 ABG Carboxyhemoglobin 0.3 % (0.5-1.5) L 10/31/17 05:32 POC ABG HHb (Measured) 2.7 % (0.0-5.0) 10/31/17 05:32 ABG Methemoglobin 1.1 % (0.0-3.0) 10/31/17 05:32 ABG O2 Capacity 15.4 mL/dL (16-24) L 10/31/17 05:32 August Test Yes 10/31/17 05:32 ABG Potassium 4.4 mmol/L (3.6-5.2) 10/30/17 10:33 A-a O2 Difference 254.0 mm/Hg 10/31/17 05:32 Hgb O2 Saturation 95.8 % (95.0-98.0) 10/31/17 05:32 Sodium 137.0 mmol/L (132-148) 10/30/17 10:33 Chloride 102.0 mmol/L (98-107) 10/30/17 10:33 Glucose 188 mg/dL (65-105) H 10/30/17 10:33 Lactate 0.7 mmol/L (0.7-2.1) 10/30/17 10:33 Vent Mode Bipap 10/31/17 05:32 Mechanical Rate 14 10/31/17 05:32 FiO2 60.0 % 10/31/17 05:32 Inspiratory BiPAP 14 10/31/17 05:32 Expiratory BiPAP 6 10/31/17 05:32 Crit Value Called To Cony leigh 10/30/17 18:30 Crit Value Called By Rt 10/30/17 18:30 Crit Value Read Back Y 10/30/17 18:30 Blood Gas Notified Time 18510/30/17 18:30 Sodium 142 mmol/l (132-148) 11/05/17 05:00 Potassium 4.7 MMOL/L (3.6-5.0) 11/05/17 05:00 Chloride 101 mmol/L (98-107) 11/05/17 05:00 Carbon Dioxide 38 mmol/L (22-30) H 11/05/17 05:00 Anion Gap 8 (10-20) L 11/05/17 05:00 BUN 20 mg/dl (7-17) H 11/05/17 05:00 Creatinine 1.1 mg/dl (0.7-1.2) 11/05/17 05:00 Est GFR ( Amer) 58 11/05/17 05:00 Est GFR (Non-Af Amer) 48 11/05/17 05:00 POC Glucose (mg/dL) 224 mg/dL (65-110) H 11/05/17 11:21 Random Glucose 145 mg/dL (65-105) H 11/05/17 05:00 Calcium 9.1 mg/dL (8.4-10.2) 11/05/17 05:00 Phosphorus 3.2 mg/dl (2.5-4.5) 10/30/17 10:30 Magnesium 2.2 MG/DL (1.6-2.3) 10/30/17 10:30 Total Bilirubin 0.7 mg/dl (0.2-1.3) 10/30/17 10:30 AST 30 U/L (14-36) 10/30/17 10:30 ALT 27 U/L (9-52) 10/30/17 10:30 Alkaline Phosphatase 71 U/L (38-126) 10/30/17 10:30 Troponin I < 0.0120 ng/mL (0.00-0.120) 10/30/17 10:30 NT-Pro-B Natriuret Pep 2180 pg/ml (0-900) H 10/30/17 10:30 Total Protein 6.8 G/DL (6.3-8.2) 10/30/17 10:30 Albumin 3.0 g/dL (3.5-5.0) L 10/30/17 10:30 Globulin 3.8 gm/dL (2.2-3.9) 10/30/17 10:30 Albumin/Globulin Ratio 0.8 (1.0-2.1) L 10/30/17 10:30 Arterial Blood Potassium 4.4 mmol/L (3.6-5.2) 10/30/17 10:33 Urine Color Yellow (YELLOW) 10/30/17 12:20 Urine Clarity Clear (Clear) 10/30/17 12:20 Urine pH 7.0 (5.0-8.0) 10/30/17 12:20 Ur Specific [place] >= 1.030 (1.003-1.030) 10/30/17 12:20 Urine Protein 100 mg/dL (NEGATIVE) 10/30/17 12:20 Urine Glucose (UA) Neg mg/dL (Normal) 10/30/17 12:20 Urine Ketones Negative mg/dL (NEGATIVE) 10/30/17 12:20 Urine Blood Negative (NEGATIVE) 10/30/17 12:20 Urine Nitrate Positive (NEGATIVE) H 10/30/17 12:20 Urine Bilirubin Negative (NEGATIVE) 10/30/17 12:20 Urine Urobilinogen 0.2 mg/dL (0.2-1.0) 10/30/17 12:20 Ur Leukocyte Esterase Neg [place]/uL (Negative) 10/30/17 12:20 Urine RBC (Auto) 2 /hpf (0-3) 10/30/17 12:20 Urine Microscopic WBC 1 /hpf (0-5) 10/30/17 12:20 Ur Squamous Epith Cells 2 /hpf (0-5) 10/30/17 12:20 Urine Bacteria Mod (<OCC) H 10/30/17 12:20 Hyaline Casts 1 /hpf (0-2) 10/30/17 12:20 Influenza Typ A,B (EIA) Pos for influenza a (NEGATIVE) H 10/30/17 10:30 Discharge Exam - Head Exam Head Exam: NORMAL INSPECTION Discharge Plan - Discharge Medications Prescriptions: amLODIPine [Norvasc] 10 mg PO DAILY #30 tab Azithromycin [Zithromax] 500 mg PO DAILY #3 tablet - Follow Up Plan Condition: SERIOUS Disposition: HOME/ ROUTINE Instructions: Influenza (DC) Additional Instructions: follow up with in 7-10 days. Referrals: Mandi Tobin APN [Family Provider] - Sridhar Oliver MD [Staff Provider] -
[2017-11-05 16:11] VITALS: BP 142/74; PULSE 63
[2017-11-05 16:13] VITALS: RESP 16; TEMP 97.5; O2SAT 100
== END 2017-11-05 17:37 | disposition home health service (06) | DRG 584 ==
LOC: H.ER 09:48 → H.ERHOLD 12:15 → H.TEL 17:12
PROVIDERS: ADMIT Internal Medicine Pulmonary Disease; ATTEND Internal Medicine Pulmonary Disease
PROC: 3E0F73Z Introduction of Anti-inflammatory into Respiratory Tract, Via Natural or Artificial Opening (ICD-10-PCS; principal; 2017-10-30)
PROC: 5A09457 Assistance with Respiratory Ventilation, 24-96 Consecutive Hours, Continuous Positive Airway Pressure (ICD-10-PCS; 2017-10-30)
DX: A41.9 Sepsis, unspecified organism (principal); J10.00 Influenza due to other identified influenza virus with unspecified type of pneumonia; J18.9 Pneumonia, unspecified organism; I50.32 Chronic diastolic (congestive) heart failure; J44.0 Chronic obstructive pulmonary disease with (acute) lower respiratory infection; I11.0 Hypertensive heart disease with heart failure; N39.0 Urinary tract infection, site not specified; F03.90 Unspecified dementia, unspecified severity, without behavioral disturbance, psychotic disturbance, mood disturbance, and anxiety; J10.1 Influenza due to other identified influenza virus with other respiratory manifestations; D64.9 Anemia, unspecified; E11.9 Type 2 diabetes mellitus without complications; E03.9 Hypothyroidism, unspecified; E78.00 Pure hypercholesterolemia, unspecified; E78.5 Hyperlipidemia, unspecified; I25.10 Atherosclerotic heart disease of native coronary artery without angina pectoris; M19.90 Unspecified osteoarthritis, unspecified site; H54.62 Unqualified visual loss, left eye, normal vision right eye; Z95.1 Presence of aortocoronary bypass graft; Z95.5 Presence of coronary angioplasty implant and graft; Z87.01 Personal history of pneumonia (recurrent); Z87.440 Personal history of urinary (tract) infections; Z88.6 Allergy status to analgesic agent; Z88.0 Allergy status to penicillin; Z79.82 Long term (current) use of aspirin

== ENCOUNTER 2018-03-12 15:08 | Inpatient (IN) | payer MEDICAID ==
--- NOTE | 2018-03-12 15:27 | ED PDOC ---
HPI: Chest Pain Time Seen by Provider: 03/12/18 15:11 Chief Complaint (Nursing): Chest Pain Chief Complaint (Provider): Chest Pain History Per: Patient History/Exam Limitations: no limitations Onset/Duration Of Symptoms: Hrs (this morning) Current Symptoms Are (Timing): Still Present Additional Complaint(s): 77 year old female presents to the ED via EMS complaining of left sided chest pain radiating to left shoulder and arm onset earlier this morning. Patient denies fever, cough, and leg pain / swelling. PMD: Krys Mcguire Past Medical History Reviewed: Historical Data, Nursing Documentation, Vital Signs Vital Signs: Last Vital Signs Temp 98.3 F 03/12/18 15:10 Pulse 70 03/12/18 15:10 Resp 18 03/12/18 15:10 BP 161/70 H 03/12/18 15:10 Pulse Ox 98 03/12/18 15:30 - Medical History PMH: Anemia, Anxiety, Arthritis, Asthma, Back Problems, Bronchitis, CAD, CHF, COPD, Dementia, Depression, Diabetes, Gastritis, HTN, Hypercholesterolemia, Hyperlipidemia, Hypothyroidism, Peripheral Edema, Pneumonia, Chronic Kidney Disease (mild renal insufficiecy.), Seizures Denies: HIV, Rheumatoid Arthritis - Surgical History Surgical History: CABG (x4), Cholecystectomy, Coronary Stent Denies: Pacemaker - Family History Family History: States: Unknown Family Hx - Home Medications Home Medications: Ambulatory Orders Medication Instructions Recorded Aspirin [Ecotrin] 81 mg PO DAILY 01/12/17 Carvedilol [Coreg] 3.125 mg PO DAILY 01/12/17 Levothyroxine [Synthroid] 100 mcg PO DAILY 01/12/17 Ranolazine [Ranexa] 1,000 mg PO BID 01/12/17 Atorvastatin [Lipitor] 40 mg PO HS 02/01/17 ALPRAZolam [Xanax] 0.25 mg PO HS PRN tab 06/16/17 Docusate [Colace] 100 mg PO DAILY PRN 08/30/17 Nitroglycerin [Nitrostat] 1 tab SL PRN PRN 10/10/17 Insulin Human NPH/Reg [HumuLIN 3 unit SC DAILY PRN 10/30/17 70/30 (NPH/Reg)] amLODIPine [Norvasc] 10 mg PO DAILY #30 tab 11/05/17 Acetaminophen/Codeine 1 tab PO Q6 PRN 03/12/18 [Tylenol/Codeine 300 MG/30 MG] Ferrous Sulfate [Feosol] 325 mg PO DAILY 03/12/18 Furosemide [Lasix] 40 mg PO DAILY 03/12/18 Gabapentin [Neurontin] 100 mg PO BID 03/12/18 Insulin NPH Hum/Reg Insulin Hm 03/12/18 [Humulin 70/30 Kwikpen] Loratadine [Claritin] 10 mg PO DAILY 03/12/18 Phenazopyridine [Phenazopyridine 200 mg PO BID 03/12/18 HCl] - Allergies Allergies/Adverse Reactions: Allergies Allergy/AdvReac Type Severity Reaction Status Date / Time kiwi Allergy Mild RASH Verified 10/18/17 18:48 morphine Allergy Mild RASH Verified 10/18/17 18:48 Penicillins Allergy Mild RASH Verified 10/18/17 18:48 pineapple Allergy Mild RASH Verified 10/18/17 18:48 watermelon Allergy Mild RASH Verified 10/18/17 18:48 Review of Systems ROS Statement: Except As Marked, All Systems Reviewed And Found Negative Constitutional: Negative for: Fever Cardiovascular: Positive for: Chest Pain (left sided radiating to left shoulder and arm) Respiratory: Positive for: Shortness of Breath. Negative for: Cough Musculoskeletal: Negative for: Leg Pain (or swelling) Physical Exam - Reviewed Nursing Documentation Reviewed: Yes Vital Signs Reviewed: Yes - Physical Exam Appears: Positive for: No Acute Distress Head Exam: Positive for: ATRAUMATIC, NORMOCEPHALIC Skin: Positive for: Normal Color, Warm, Dry Eye Exam: Positive for: Normal appearance Neck: Positive for: Normal, Painless ROM, Supple Cardiovascular/Chest: Positive for: Regular Rate, Rhythm. Negative for: Murmur Respiratory: Positive for: Rales (at bases bilaterally). Negative for: Wheezing , Respiratory Distress Gastrointestinal/Abdominal: Positive for: Normal Exam, Soft. Negative for: Tenderness Back: Positive for: Normal Inspection Extremity: Positive for: Normal ROM. Negative for: Pedal Edema, Calf Tenderness Neurologic/Psych: Positive for: Alert (and awake), Oriented (x3). Negative for : Motor/Sensory Deficits - Laboratory Results Result Diagrams: 03/12/18 15:38 03/12/18 15:38 - ECG O2 Sat by Pulse Oximetry: 98 (RA) Pulse Ox Interpretation: Normal Medical Decision Making Medical Decision Making: Initial Impression: chest pain Time: 15:20 Initial Plan: --EKG --BNP --CMP --Urine dipstick --CBC with differential --Chest Portable XR --Aspirin 325mg PO Scribe Attestation: Documented by Mallorie Zhou, acting as a scribe for Deep De La Garza MD. Provider Scribe Attestation: All medical entries made by the Scribe were at my direction and personally dictated by me. I have reviewed the chart and agree that the record accurately reflects my personal performance of the history, physical exam, medical decision making, and the department course for this patient. I have also personally directed, reviewed, and agree with the discharge instructions and disposition. Disposition - Clinical Impression Clinical Impression: Chest pain - Patient ED Disposition Is Patient to be Admitted: Yes - Disposition Disposition Time: 16:53 Condition: FAIR Forms: [employer] (Frisian) - Pt Status Changed To: Hospital Disposition Of: Observation - POA Present On Arrival: None
--- NOTE | 2018-03-12 15:39 | RAD ---
HISTORY: cough COMPARISON: Chest radiograph dated 11/04/2017. FINDINGS: LUNGS: Stable chronic prominence of the bilateral interstitial markings. No focal consolidation. PLEURA: No significant pleural effusion identified, no pneumothorax apparent. CARDIOVASCULAR: Prior sternotomy with sternal wires and surgical clips redemonstrated. Atherosclerotic aortic calcifications. Cardiomediastinal silhouette stably enlarged. OSSEOUS STRUCTURES: Unchanged. VISUALIZED UPPER ABDOMEN: Right upper quadrant surgical clips redemonstrated. OTHER FINDINGS: None. IMPRESSION: Stable chronic prominence of the bilateral interstitial markings. No focal consolidation or pleural effusion.
[2018-03-12 15:57] LABS: BASO # 0.1 K/uL (0.0-0.2); BASO % 1.1 % (0.0-2.0); EOS # 0.4 K/uL (0.0-0.7); EOS % 5.9 % (0.0-4.0); HEMOGLOBIN 11.5 g/dL (12.0-16.0); LYMPH # 1.9 K/uL (1.0-4.3); LYMPH % 25.5 % (20.0-40.0); MEAN CORPUSCULAR HEMOGLOBIN 32.3 pg (27.0-31.0); MEAN CORPUSCULAR HGB CONC 33.6 g/dL (33.0-37.0); MEAN PLATELET VOLUME 8.8 fl (7.2-11.7); MONO # 0.6 K/uL (0.0-0.8); MONO % 8.1 % (0.0-10.0); NEUT # 4.3 K/uL (1.8-7.0); NEUT % 59.4 % (50.0-75.0); NRBC % 0.1 % (0.0-0.0); RBC 3.56 Mil/uL (3.80-5.20); RED CELL DISTRIBUTION WIDTH 13.8 % (11.5-14.5); WHITE BLOOD COUNT 7.3 K/uL (4.8-10.8)
[2018-03-12 16:05] LABS: ALB/GLOB RATIO 0.9 (1.0-2.1); ALBUMIN 3.4 g/dL (3.5-5.0); ALT/SGPT 29 U/L (9-52); AST/SGOT 28 U/L (14-36); BLOOD UREA NITROGEN 25 mg/dl (7-17); CALCIUM 9.2 mg/dL (8.4-10.2); GFR AFRICAN-AMERICAN 48; GFR NON-AFRICAN AMERICAN 40
[2018-03-12 16:08] LABS: MEAN CELL VOLUME 96.2 fl (81.0-99.0)
[2018-03-12 16:17] LABS: B-TYPE NATRIURETIC PEPTIDE 825 pg/ml (0-900)
[2018-03-12] MEDS ORDERED: Acetaminophen-Codeine 300/30 mg Tab PO PRN (20:24)
--- NOTE | 2018-03-12 20:26 | CP.PCM.HP ---
History of Present Illness - History of Present Illness History of Present Illness: CC: Chest pain. 77 y/o F, with PMHx of CABG, CHF, COPD, CKD, brought to ER [facility] [place] to be evaluated for Chest pain that began day [employer] but increased on DOA with no relief. Chest pain left sided, dull pain, pressure type, intermittent, moderate intensity 6:10, associated to mild SOB, no cough. Pain radiates to L shoulder and to L arm. Worsening symptoms: C/O of Abdominal pain suprapubic area for few days. Hx of chronic UTI. Pt denied: Fever, chills, n/v/d, palpitations, dizziness, LOC, numbness, sick contact, recent travel out of [place]. CXR: No focal consolidation or pleural effusion. Present on Admission - Present on Admission Any Indicators Present on Admission: No Review of Systems - Constitutional Constitutional: Weakness - EENT Eyes: Loss of Vision (L eye) Ears: Decreased Hearing (R ear) Nose/Mouth/Throat: Other (negative) - Cardiovascular Cardiovascular: Chest Pain, Radiating Pain - Respiratory Respiratory: Dyspnea - Gastrointestinal Gastrointestinal: Abdominal Pain - Genitourinary Genitourinary: Urinary Incontinence - Musculoskeletal Musculoskeletal: Arthralgias, Other (L shoulder,L arm pain) - Integumentary Integumentary: Other (negative) - Neurological Neurological: Confusion - Psychiatric Psychiatric: Anxiety - Endocrine Endocrine: Other (negative) - Hematologic/Lymphatic Hematologic: Other (anemia) Past Patient History - Infectious Disease Hx of Infectious Diseases: None - Tetanus Immunizations Tetanus Immunization: Unknown - Past Medical History & Family History Past Medical History?: Yes Pertinent Family History: Unknown - Past Social History Smoking Status: Never Smoked Alcohol: None Drugs: Denies Home Situation {Lives}: With Family - CARDIAC Hx Cardiac Disorders: Yes Hx Congestive Heart Failure: Yes Hx Hypercholesterolemia: Yes Hx Hypertension: Yes Hx Pacemaker: Yes Hx Peripheral Edema: Yes - PULMONARY Hx Respiratory Disorders: Yes Hx Asthma: Yes Hx Bronchitis: Yes Hx Chronic Obstructive Pulmonary Disease (COPD): Yes Hx Pneumonia: Yes - NEUROLOGICAL Hx Dementia: Yes Hx Seizures: Yes - HEENT Hx HEENT Problems: Yes Hx Blind: Yes (left eye) Other/Comment: Hard of hear R ear., left eye blind - RENAL Hx Chronic Kidney Disease: Yes (mild renal insufficiecy.) - ENDOCRINE/METABOLIC Hx Endocrine Disorders: Yes Hx Hypothyroidism: Yes - HEMATOLOGICAL/ONCOLOGICAL Hx Blood Disorders: Yes Hx Anemia: Yes Hx Human Immunodeficiency Virus (HIV): No - INTEGUMENTARY Hx Dermatological Problems: No - MUSCULOSKELETAL/RHEUMATOLOGICAL Hx Arthritis: Yes Hx Rheumatoid Arthritis: No - GASTROINTESTINAL Hx Gastrointestinal Disorders: Yes Hx Gastritis: Yes - GENITOURINARY/GYNECOLOGICAL Hx Genitourinary Disorders: Yes Hx Incontinence: Yes Hx Urinary Tract Infection: Yes - PSYCHIATRIC Hx Psychophysiologic Disorder: Yes Hx Anxiety: Yes Hx Depression: Yes - SURGICAL HISTORY Hx Surgeries: Yes Hx Cholecystectomy: Yes Hx Coronary Artery Bypass Graft: Yes (x4) Hx Coronary Stent: Yes - ANESTHESIA Hx Anesthesia: Yes Hx Anesthesia Reactions: No Hx Malignant Hyperthermia: No Meds Allergies/Adverse Reactions: Allergies Allergy/AdvReac Type Severity Reaction Status Date / Time kiwi Allergy Mild RASH Verified 10/18/17 18:48 morphine Allergy Mild RASH Verified 10/18/17 18:48 Penicillins Allergy Mild RASH Verified 10/18/17 18:48 pineapple Allergy Mild RASH Verified 10/18/17 18:48 watermelon Allergy Mild RASH Verified 10/18/17 18:48 Physical Exam - Constitutional Appears: No Acute Distress, Chronically Ill - Head Exam Head Exam: NORMAL INSPECTION - Eye Exam Eye Exam: PERRL Additional comments: R eye, L eye blind - ENT Exam Additional comments: Hard of hearing R ear - Neck Exam Neck exam: Positive for: Normal Inspection - Respiratory Exam Respiratory Exam: Decreased Breath Sounds (at bases) - Cardiovascular Exam Cardiovascular Exam: REGULAR RHYTHM, Systolic Murmur (2/6 LSB) - GI/Abdominal Exam GI & Abdominal Exam: Normal Bowel Sounds, Soft - Extremities Exam Additional comments: L TMA - Back Exam Back exam: tenderness - Psychiatric Exam Psychiatric exam: Anxious - Skin Skin Exam: Warm Results - Vital Signs Recent Vital Signs: Last Vital Signs Temp 98.5 F 03/12/18 19:16 Pulse 65 03/12/18 19:16 Resp 20 03/12/18 19:16 BP 187/74 H 03/12/18 19:16 Pulse Ox 100 03/12/18 19:16 reviewed Cheryl - Labs Result Diagrams: 03/13/18 06:20 03/13/18 06:20 Labs: Laboratory Results - last 24 hr 03/12/18 03/12/18 15:38 15:38 WBC 7.3 RBC 3.56 L Hgb 11.5 L Hct 34.2 MCV 96.2 D MCH 32.3 H MCHC 33.6 RDW 13.8 Plt Count 234 MPV 8.8 Neut % (Auto) 59.4 Lymph % (Auto) 25.5 Kaufman % (Auto) 8.1 Eos % (Auto) 5.9 H Baso % (Auto) 1.1 Neut # (Auto) 4.3 Lymph # (Auto) 1.9 Kaufman # (Auto) 0.6 Eos # (Auto) 0.4 Baso # (Auto) 0.1 Sodium 138 Potassium 5.1 H Chloride 100 Carbon Dioxide 30 Anion Gap 13 BUN 25 H Creatinine 1.3 H Est GFR ( Amer) 48 Est GFR (Non-Af Amer) 40 Random Glucose 200 H Calcium 9.2 Total Bilirubin 0.9 AST 28 ALT 29 Alkaline Phosphatase 95 Troponin I < 0.0120 NT-Pro-B Natriuret Pep 825 Total Protein 7.3 Albumin 3.4 L Globulin 3.9 Albumin/Globulin Ratio 0.9 L reviewed j.P. - Imaging and Cardiology Chest x-ray Status: Report reviewed by me (J.P.) Assessment & Plan (1) Chest pain Status: Acute Priority: High (2) Radiating pain Status: Acute Priority: High (3) COPD (chronic obstructive pulmonary disease) Status: Chronic Priority: Medium (4) Chronic lower urinary tract infection Status: Chronic Priority: High (5) CAD (coronary artery disease) Status: Acute Priority: Medium (6) Chronic low back pain Status: Chronic Priority: Medium (7) Diabetes mellitus Status: Chronic Priority: Medium (8) Generalized weakness Status: Chronic Priority: High (9) HTN (hypertension) Status: Chronic Priority: Medium (10) Hypercholesterolemia Status: Chronic Priority: Low (11) Hypothyroidism Status: Chronic Priority: Medium (12) Osteoarthritis Status: Chronic Priority: Medium (13) Hx of CABG Status: Chronic Priority: Medium - Assessment and Plan (Free Text) Plan: Echo, EKG, Coreg, NTG, ASA, Lasix, Lipitor, Tylenol with Co, Pirydium, Cardiology consult. - Date & Time Date: 03/12/18 Time: 19:00
[2018-03-12 22:34] VITALS: BMI 29.3
[2018-03-12] MEDS: Nitroglycerin 2% Ointment Foilpak UD TOP SCH (23:14)
[2018-03-13] MEDS: Nitroglycerin 2% Ointment Foilpak UD TOP SCH ×4 (04:34→21:50)
[2018-03-13] MEDS: Levothyroxine 100 MCG TAB PO SCH (05:34)
[2018-03-13 07:51] LABS: HEMOGLOBIN 11.5 g/dL (12.0-16.0); MEAN CELL VOLUME 96.6 fl (81.0-99.0); MEAN CORPUSCULAR HEMOGLOBIN 32.4 pg (27.0-31.0); MEAN CORPUSCULAR HGB CONC 33.6 g/dL (33.0-37.0); RBC 3.55 Mil/uL (3.80-5.20); RED CELL DISTRIBUTION WIDTH 13.8 % (11.5-14.5); WHITE BLOOD COUNT 6.4 K/uL (4.8-10.8)
[2018-03-13 08:06] LABS: ALB/GLOB RATIO 0.9 (1.0-2.1); ALBUMIN 3.2 g/dL (3.5-5.0); CALCIUM 9.4 mg/dL (8.4-10.2)
[2018-03-13 08:19] LABS: T4 8.63 ug/dl (5.5-11.0)
[2018-03-13] MEDS: Ranolazine 500 mg Extended Release Tablets PO SCH ×2 (09:26→17:25)
--- NOTE | 2018-03-13 13:50 | CP.PCM.PN ---
Subjective - Date & Time of Evaluation Date of Evaluation: 03/13/18 Time of Evaluation: 11:00 - Subjective Subjective: F/U Chest Pain lethargic, arousable Objective - Vital Signs/Intake and Output Vital Signs (last 24 hours): Temp Pulse Resp BP Pulse Ox 97.8 F 67 20 115/68 99 03/13/18 12:00 03/13/18 12:00 03/13/18 12:00 03/13/18 12:00 03/13/18 12:00 - Medications Medications: Current Medications Acetaminophen/Codeine Phosphate (Tylenol/Codeine 300 Mg/30 Mg) 1 tab PO Q6 PRN PRN Reason: Pain, severe (8-10) Alprazolam (Xanax) 0.25 mg PO HS PRN PRN Reason: Insomnia Stop: 03/19/18 20:25 Aspirin (Ecotrin) 81 mg PO DAILY [facility] Last Admin: 03/13/18 09:25 Dose: 81 mg Atorvastatin Calcium (Lipitor) 40 mg PO HS [facility] Last Admin: 03/12/18 23:28 Dose: 40 mg Carvedilol (Coreg) 3.125 mg PO DAILY [facility] Last Admin: 03/13/18 09:25 Dose: 3.125 mg Docusate Sodium (Colace) 100 mg PO DAILY PRN PRN Reason: Constipation Last Admin: 03/13/18 09:24 Dose: 100 mg Ferrous Sulfate (Feosol) 325 mg PO DAILY [facility] Last Admin: 03/13/18 09:25 Dose: 325 mg Furosemide (Lasix) 40 mg PO DAILY [facility] Last Admin: 03/13/18 09:25 Dose: 40 mg Gabapentin (Neurontin) 100 mg PO BID [facility] Last Admin: 03/13/18 09:25 Dose: 100 mg Levothyroxine Sodium (Synthroid) 100 mcg PO DAILY@0630 [facility] Last Admin: 03/13/18 05:34 Dose: 100 mcg Loratadine (Claritin) 10 mg PO DAILY [facility] Last Admin: 03/13/18 09:25 Dose: 10 mg Nitroglycerin (Nitro-Bid 2% Oint) 1 ea TOP Q6 [facility] Last Admin: 03/13/18 09:34 Dose: 1 ea Nitroglycerin (Nitrostat Sl Tab) 0.4 mg SL Q5MIN PRN PRN Reason: FOR CHEST, ANIGINAL DISCOMFORT Phenazopyridine HCl (Pyridium) 200 mg PO BID [facility] Last Admin: 03/13/18 09:26 Dose: 200 mg Ranolazine (Ranexa) 1,000 mg PO BID [facility] Last Admin: 03/13/18 09:26 Dose: 1,000 mg - Labs Labs: 03/13/18 06:20 03/13/18 06:20 - Constitutional Appears: Chronically Ill - Head Exam Head Exam: NORMAL INSPECTION - Eye Exam Eye Exam: PERRL - ENT Exam ENT Exam: Normal Exam - Neck Exam Neck Exam: Normal Inspection - Respiratory Exam Respiratory Exam: Decreased Breath Sounds (at bases) - Cardiovascular Exam Cardiovascular Exam: REGULAR RHYTHM, Murmur (2/6 LSB) - GI/Abdominal Exam GI & Abdominal Exam: Soft, Normal Bowel Sounds - Extremities Exam Extremities Exam: Pedal Edema Additional comments: LTMA - Neurological Exam Additional comments: lethargic arousable - Psychiatric Exam Additional comments: lethargic Assessment and Plan (1) Chest pain Status: Acute (2) Radiating pain Status: Acute (3) COPD (chronic obstructive pulmonary disease) Status: Chronic (4) Chronic lower urinary tract infection Status: Chronic (5) CAD (coronary artery disease) Status: Chronic (6) Chronic low back pain Status: Chronic (7) Diabetes mellitus Status: Chronic (8) Generalized weakness Status: Chronic (9) HTN (hypertension) Status: Chronic (10) Hypercholesterolemia Status: Chronic (11) Hypothyroidism Status: Chronic (12) Osteoarthritis Status: Chronic (13) Hx of CABG Status: Chronic (14) Change in mental status Status: Acute - Assessment and Plan (Free Text) Plan: f/u CT Head , CXR , EKG , continue rest of treatment
--- NOTE | 2018-03-13 13:51 | CP.PCM.PN ---
Objective - Vital Signs/Intake and Output Vital Signs (last 24 hours): Temp Pulse Resp BP Pulse Ox 97.8 F 67 20 115/68 99 03/13/18 12:00 03/13/18 12:00 03/13/18 12:00 03/13/18 12:00 03/13/18 12:00 - Medications Medications: Current Medications Acetaminophen/Codeine Phosphate (Tylenol/Codeine 300 Mg/30 Mg) 1 tab PO Q6 PRN PRN Reason: Pain, severe (8-10) Alprazolam (Xanax) 0.25 mg PO HS PRN PRN Reason: Insomnia Stop: 03/19/18 20:25 Aspirin (Ecotrin) 81 mg PO DAILY [facility] Last Admin: 03/13/18 09:25 Dose: 81 mg Atorvastatin Calcium (Lipitor) 40 mg PO HS [facility] Last Admin: 03/12/18 23:28 Dose: 40 mg Carvedilol (Coreg) 3.125 mg PO DAILY [facility] Last Admin: 03/13/18 09:25 Dose: 3.125 mg Docusate Sodium (Colace) 100 mg PO DAILY PRN PRN Reason: Constipation Last Admin: 03/13/18 09:24 Dose: 100 mg Ferrous Sulfate (Feosol) 325 mg PO DAILY [facility] Last Admin: 03/13/18 09:25 Dose: 325 mg Furosemide (Lasix) 40 mg PO DAILY [facility] Last Admin: 03/13/18 09:25 Dose: 40 mg Gabapentin (Neurontin) 100 mg PO BID [facility] Last Admin: 03/13/18 09:25 Dose: 100 mg Levothyroxine Sodium (Synthroid) 100 mcg PO DAILY@0630 [facility] Last Admin: 03/13/18 05:34 Dose: 100 mcg Loratadine (Claritin) 10 mg PO DAILY [facility] Last Admin: 03/13/18 09:25 Dose: 10 mg Nitroglycerin (Nitro-Bid 2% Oint) 1 ea TOP Q6 [facility] Last Admin: 03/13/18 09:34 Dose: 1 ea Nitroglycerin (Nitrostat Sl Tab) 0.4 mg SL Q5MIN PRN PRN Reason: FOR CHEST, ANIGINAL DISCOMFORT Phenazopyridine HCl (Pyridium) 200 mg PO BID [facility] Last Admin: 03/13/18 09:26 Dose: 200 mg Ranolazine (Ranexa) 1,000 mg PO BID [facility] Last Admin: 03/13/18 09:26 Dose: 1,000 mg - Labs Labs: 03/13/18 06:20 03/13/18 06:20 Assessment and Plan (1) Chest pain Status: Acute (2) Radiating pain Status: Acute (3) COPD (chronic obstructive pulmonary disease) Status: Chronic (4) Chronic lower urinary tract infection Status: Chronic (5) CAD (coronary artery disease) Status: Acute (6) Chronic low back pain Status: Chronic (7) Diabetes mellitus Status: Chronic (8) Generalized weakness Status: Chronic (9) HTN (hypertension) Status: Chronic (10) Hypercholesterolemia Status: Chronic (11) Hypothyroidism Status: Chronic (12) Osteoarthritis Status: Chronic (13) Hx of CABG Status: Chronic
[2018-03-13] MEDS ORDERED: REG SC PRN (14:25)
[2018-03-13] MEDS ORDERED: INSULIN HUMAN NPH SC PRN (14:25)
[2018-03-13] MEDS ORDERED: Lidocaine 5% Patch TD SCH (14:30)
[2018-03-13] MEDS ORDERED: Insulin NPH Human 100 Units/ml Inj SC PRN (15:00)
[2018-03-13] MEDS: Lidocaine 5% Patch TD SCH (17:14)
--- NOTE | 2018-03-13 20:21 | CP.PCM.CON ---
History of Present Illness - History of Present Illness History of Present Illness: ASKED TO SEE PT FOR CARDIAC CONSULT IN COVERAGE FOR DR LEDEZMA. 77 Y/O W MULTIPLE COMPLAINTS INCLUDING CHEST DISCOMFORT AND LEFT UE PAIN. PT IS CONFUSED AND UNABLE TO QUALIFY OR QUANTIFY. FAMILY AT BEDSIDE STATES THAT SHE GETS CP WHEN LAYING DOWN. THE MAJORITY OF THE HISTORY IS OBTAINED FROM CHART. PT HAS DM, HTN, DYSLIPIDEMIA, SIG PVD, HX OF CAD AND S/P CABG. STRESS PERFORMED IN AUG 2017 SHOWS REVERSIBLE DEFECTS IN INF AND INF LATERAL SEGMENTS. AFTER REVIEWING THE ECHO IMAGES PTS EF IS BORDERLINE LOW. PT IS ON ASA AND RANEXA. ADDITIONALLY PT HAS AN ELEVATED TSH, AND MILD PRERENAL STATE. Past Patient History - Infectious Disease Hx of Infectious Diseases: None - Tetanus Immunizations Tetanus Immunization: Unknown - Past Medical History & Family History Past Medical History?: Yes - Past Social History Smoking Status: Never Smoked Alcohol: None Drugs: Denies Home Situation {Lives}: With Family - CARDIAC Hx Cardiac Disorders: Yes Hx Congestive Heart Failure: Yes Hx Hypercholesterolemia: Yes Hx Hypertension: Yes Hx Pacemaker: Yes Hx Peripheral Edema: Yes - PULMONARY Hx Respiratory Disorders: Yes Hx Asthma: Yes Hx Bronchitis: Yes Hx Chronic Obstructive Pulmonary Disease (COPD): Yes Hx Pneumonia: Yes - NEUROLOGICAL Hx Dementia: Yes Hx Seizures: Yes - HEENT Hx HEENT Problems: Yes Hx Blind: Yes (left eye) Other/Comment: Hard of hear R ear., left eye blind - RENAL Hx Chronic Kidney Disease: Yes (mild renal insufficiecy.) - ENDOCRINE/METABOLIC Hx Endocrine Disorders: Yes Hx Hypothyroidism: Yes - HEMATOLOGICAL/ONCOLOGICAL Hx Blood Disorders: Yes Hx Anemia: Yes Hx Human Immunodeficiency Virus (HIV): No - INTEGUMENTARY Hx Dermatological Problems: No - MUSCULOSKELETAL/RHEUMATOLOGICAL Hx Arthritis: Yes Hx Rheumatoid Arthritis: No - GASTROINTESTINAL Hx Gastrointestinal Disorders: Yes Hx Gastritis: Yes - GENITOURINARY/GYNECOLOGICAL Hx Genitourinary Disorders: Yes Hx Incontinence: Yes Hx Urinary Tract Infection: Yes - PSYCHIATRIC Hx Psychophysiologic Disorder: Yes Hx Anxiety: Yes Hx Depression: Yes - SURGICAL HISTORY Hx Surgeries: Yes Hx Cholecystectomy: Yes Hx Coronary Artery Bypass Graft: Yes (x4) Hx Coronary Stent: Yes - ANESTHESIA Hx Anesthesia: Yes Hx Anesthesia Reactions: No Hx Malignant Hyperthermia: No Meds Allergies/Adverse Reactions: Allergies Allergy/AdvReac Type Severity Reaction Status Date / Time kiwi Allergy Mild RASH Verified 10/18/17 18:48 morphine Allergy Mild RASH Verified 10/18/17 18:48 Penicillins Allergy Mild RASH Verified 10/18/17 18:48 pineapple Allergy Mild RASH Verified 10/18/17 18:48 watermelon Allergy Mild RASH Verified 10/18/17 18:48 - Medications Medications: Current Medications Acetaminophen/Codeine Phosphate (Tylenol/Codeine 300 Mg/30 Mg) 1 tab PO Q6 PRN PRN Reason: Pain, severe (8-10) Alprazolam (Xanax) 0.25 mg PO HS PRN PRN Reason: Insomnia Stop: 03/19/18 20:25 Aspirin (Ecotrin) 81 mg PO DAILY [facility] Last Admin: 03/13/18 09:25 Dose: 81 mg Atorvastatin Calcium (Lipitor) 40 mg PO HS [facility] Last Admin: 03/12/18 23:28 Dose: 40 mg Carvedilol (Coreg) 3.125 mg PO DAILY [facility] Last Admin: 03/13/18 09:25 Dose: 3.125 mg Docusate Sodium (Colace) 100 mg PO DAILY PRN PRN Reason: Constipation Last Admin: 03/13/18 09:24 Dose: 100 mg Ferrous Sulfate (Feosol) 325 mg PO DAILY [facility] Last Admin: 03/13/18 09:25 Dose: 325 mg Furosemide (Lasix) 40 mg PO DAILY [facility] Last Admin: 03/13/18 09:25 Dose: 40 mg Gabapentin (Neurontin) 100 mg PO BID [facility] Last Admin: 03/13/18 17:19 Dose: 100 mg Insulin Human Regular (Humulin R) 0 units SC ACCU-CHECK [facility] PRN Reason: Protocol Levothyroxine Sodium (Synthroid) 100 mcg PO DAILY@0630 [facility] Last Admin: 03/13/18 05:34 Dose: 100 mcg Lidocaine (Lidoderm) 1 ea TD DAILY [facility] Last Admin: 03/13/18 17:14 Dose: 1 ea Loratadine (Claritin) 10 mg PO DAILY [facility] Last Admin: 03/13/18 09:25 Dose: 10 mg Nitroglycerin (Nitro-Bid 2% Oint) 1 ea TOP Q6 [facility] Last Admin: 03/13/18 16:24 Dose: 1 ea Nitroglycerin (Nitrostat Sl Tab) 0.4 mg SL Q5MIN PRN PRN Reason: FOR CHEST, ANIGINAL DISCOMFORT Phenazopyridine HCl (Pyridium) 200 mg PO BID [facility] Last Admin: 03/13/18 17:26 Dose: 200 mg Ranolazine (Ranexa) 1,000 mg PO BID [facility] Last Admin: 03/13/18 17:25 Dose: 1,000 mg Results - Vital Signs Recent Vital Signs: Last Vital Signs Temp 97.9 F 03/13/18 20:00 Pulse 9 L 03/13/18 20:00 Resp 20 03/13/18 20:00 BP 138/69 03/13/18 20:00 Pulse Ox 99 03/13/18 20:00 - Labs Result Diagrams: 03/13/18 06:20 03/13/18 06:20 Labs: Laboratory Results - last 24 hr 03/12/18 03/12/18 03/13/18 21:37 23:59 05:11 WBC RBC Hgb Hct MCV MCH MCHC RDW Plt Count Sodium Potassium Chloride Carbon Dioxide Anion Gap BUN Creatinine Est GFR ( Amer) Est GFR (Non-Af Amer) POC Glucose (mg/dL) 245 H 254 H Random Glucose Calcium Total Bilirubin AST ALT Alkaline Phosphatase Troponin I < 0.0120 Total Protein Albumin Globulin Albumin/Globulin Ratio Triglycerides Cholesterol LDL Cholesterol Direct HDL Cholesterol Thyroxine (T4) TSH 3rd Generation 03/13/18 03/13/18 03/13/18 06:20 06:20 06:20 WBC 6.4 RBC 3.55 L Hgb 11.5 L Hct 34.2 MCV 96.6 MCH 32.4 H MCHC 33.6 RDW 13.8 Plt Count 209 Sodium 139 Potassium 4.7 Chloride 98 Carbon Dioxide 34 H Anion Gap 12 BUN 26 H Creatinine 1.2 Est GFR ( Amer) 52 Est GFR (Non-Af Amer) 43 POC Glucose (mg/dL) Random Glucose 267 H Calcium 9.4 Total Bilirubin 0.7 AST 26 ALT 26 Alkaline Phosphatase 116 Troponin I < 0.0120 Total Protein 6.9 Albumin 3.2 L Globulin 3.7 Albumin/Globulin Ratio 0.9 L Triglycerides 150 H D Cholesterol 177 LDL Cholesterol Direct 89 HDL Cholesterol 37 Thyroxine (T4) 8.63 TSH 3rd Generation 8.94 H 03/13/18 03/13/18 11:17 15:54 WBC RBC Hgb Hct MCV MCH MCHC RDW Plt Count Sodium Potassium Chloride Carbon Dioxide Anion Gap BUN Creatinine Est GFR ( Amer) Est GFR (Non-Af Amer) POC Glucose (mg/dL) 359 H 356 H Random Glucose Calcium Total Bilirubin AST ALT Alkaline Phosphatase Troponin I Total Protein Albumin Globulin Albumin/Globulin Ratio Triglycerides Cholesterol LDL Cholesterol Direct HDL Cholesterol Thyroxine (T4) TSH 3rd Generation Assessment & Plan (1) Chest pain Status: Acute Priority: High (2) Diabetes mellitus with hyperglycemia Status: Acute Priority: High (3) PVD (peripheral vascular disease) Status: Acute (4) HTN (hypertension) Status: Chronic Priority: Medium (5) Hypercholesterolemia Status: Chronic Priority: Low (6) Hypothyroidism Status: Chronic Priority: Medium (7) Hx of CABG Status: Acute - Assessment and Plan (Free Text) Plan: I RECOMMEND ECHO AND POSSIBLE CARDIAC CATH. 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 ALSO RECOMMEND INCREASING SYNTHROID DOSE. WILL ORDER T4 AND T3. CONT ANTIPLTS. CONT TELE
[2018-03-13] MEDS ORDERED: Insulin NPH Human 100 Units/ml Inj SC SCH (22:00)
[2018-03-13] MEDS: Insulin Regular 100 units/ml SC SCH (22:02)
[2018-03-14] MEDS: Nitroglycerin 2% Ointment Foilpak UD TOP SCH ×4 (05:35→23:00)
[2018-03-14 06:19] LABS: T3 0.72 nmol/L (1.49-2.60)
[2018-03-14] MEDS: Levothyroxine 100 MCG TAB PO SCH (06:57)
[2018-03-14] MEDS: Insulin Regular 100 units/ml SC SCH ×4 (06:59→23:32)
[2018-03-14] MEDS: Lidocaine 5% Patch TD SCH (12:50)
[2018-03-14] MEDS: Ranolazine 500 mg Extended Release Tablets PO SCH ×2 (12:51→17:13)
--- NOTE | 2018-03-14 13:32 | RAD ---
HISTORY: Lethargy the the COMPARISON: Comparison chest dated 03/12/2018. FINDINGS: LUNGS: Mild bibasilar atelectasis and or infiltrates with small bilateral effusions. Central pulmonary vasculature is slightly increased. Rule out mild chronic compensated pulmonary edema/CHF PLEURA: No significant pleural effusion identified, no pneumothorax apparent. CARDIOVASCULAR: Sternotomy wires again noted. Cardiac silhouette stable. OSSEOUS STRUCTURES: No significant abnormalities. VISUALIZED UPPER ABDOMEN: Normal. OTHER FINDINGS: None. IMPRESSION: Mild bilateral lower lobe atelectasis and or infiltrate changes with small bilateral effusions. Central pulmonary vasculature is slightly increased. Rule out mild chronic compensated pulmonary edema/CHF
[2018-03-14 13:41] LABS: ABG ALLEN TEST YES; ARTERIAL BLOOD GAS HCO3 31.6 mmol/L (21-28); ARTERIAL BLOOD GAS HEMOGLOBIN 10.4 g/dL (11.7-17.4); ARTERIAL BLOOD GAS O2 CAPACITY 14.5 mL/dL (16-24); ARTERIAL BLOOD GAS O2 CONTENT 13.7 ML/dL (15-23); ARTERIAL BLOOD GAS O2 SAT 94.3 % (95-98); ARTERIAL BLOOD GAS PCO2 53 mm/Hg (35-45); ARTERIAL BLOOD GAS PH 7.42 (7.35-7.45); ARTERIAL BLOOD GAS PO2 79 mm/Hg (80-100)
--- NOTE | 2018-03-14 14:27 | CP.PCM.PN ---
Subjective - Date & Time of Evaluation Date of Evaluation: 03/14/18 Time of Evaluation: 12:30 - Subjective Subjective: F/U Chest pain awake, smiling , answer questions , Patient,s daughter and at bedside state that sometimes She goes with periods of letharginess and comes back , no SOB , no C/P Objective - Vital Signs/Intake and Output Vital Signs (last 24 hours): Temp Pulse Resp BP Pulse Ox 98.4 F 64 20 101/51 L 95 03/14/18 08:24 03/14/18 08:24 03/14/18 08:24 03/14/18 08:24 03/14/18 08:24 - Medications Medications: Current Medications Acetaminophen/Codeine Phosphate (Tylenol/Codeine 300 Mg/30 Mg) 1 tab PO Q6 PRN PRN Reason: Pain, severe (8-10) Alprazolam (Xanax) 0.25 mg PO HS PRN PRN Reason: Insomnia Stop: 03/19/18 20:25 Last Admin: 03/13/18 22:37 Dose: 0.25 mg Aspirin (Ecotrin) 81 mg PO DAILY [facility] Last Admin: 03/14/18 12:49 Dose: Not Given Atorvastatin Calcium (Lipitor) 40 mg PO HS [facility] Last Admin: 03/13/18 21:51 Dose: 40 mg Carvedilol (Coreg) 3.125 mg PO DAILY [facility] Last Admin: 03/14/18 12:48 Dose: Not Given Docusate Sodium (Colace) 100 mg PO DAILY PRN PRN Reason: Constipation Last Admin: 03/13/18 09:24 Dose: 100 mg Ferrous Sulfate (Feosol) 325 mg PO DAILY [facility] Last Admin: 03/14/18 12:49 Dose: Not Given Furosemide (Lasix) 40 mg PO DAILY [facility] Last Admin: 03/14/18 12:50 Dose: Not Given Gabapentin (Neurontin) 100 mg PO BID [facility] Last Admin: 03/14/18 12:50 Dose: Not Given Clindamycin Phosphate 600 mg/ (Sodium Chloride) 54 mls @ 54 mls/hr IVPB Q12 [facility] PRN Reason: Protocol Levofloxacin/Dextrose (Levaquin 500mg) 500 mg in 100 mls @ 100 mls/hr IVPB DAILY [facility] PRN Reason: Protocol Insulin Human Regular (Humulin R) 0 units SC ACCU-CHECK [facility] PRN Reason: Protocol Last Admin: 03/14/18 12:49 Dose: Not Given Levothyroxine Sodium (Synthroid) 100 mcg PO DAILY@0630 [facility] Last Admin: 03/14/18 06:57 Dose: 100 mcg Lidocaine (Lidoderm) 1 ea TD DAILY [facility] Last Admin: 03/14/18 12:50 Dose: Not Given Loratadine (Claritin) 10 mg PO DAILY [facility] Last Admin: 03/14/18 12:48 Dose: Not Given Nitroglycerin (Nitro-Bid 2% Oint) 1 ea TOP Q6 [facility] Last Admin: 03/14/18 12:50 Dose: Not Given Nitroglycerin (Nitrostat Sl Tab) 0.4 mg SL Q5MIN PRN PRN Reason: FOR CHEST, ANIGINAL DISCOMFORT Phenazopyridine HCl (Pyridium) 200 mg PO BID [facility] Last Admin: 03/14/18 12:50 Dose: Not Given Ranolazine (Ranexa) 1,000 mg PO BID [facility] Last Admin: 03/14/18 12:51 Dose: Not Given - Labs Labs: 03/13/18 06:20 03/14/18 04:20 - Constitutional Appears: Chronically Ill - Head Exam Head Exam: NORMAL INSPECTION - Eye Exam Eye Exam: PERRL Additional comments: R Eye blind - ENT Exam Additional comments: hard of hearing R Ear - Neck Exam Neck Exam: Normal Inspection - Respiratory Exam Respiratory Exam: Decreased Breath Sounds (at bases) - Cardiovascular Exam Cardiovascular Exam: REGULAR RHYTHM, Murmur (2/6 LSB) - GI/Abdominal Exam GI & Abdominal Exam: Soft, Normal Bowel Sounds - Extremities Exam Extremities Exam: Pedal Edema Additional comments: LTMA - Neurological Exam Neurological Exam: Alert Additional comments: answer questions, follows commands , generalized weakness - Psychiatric Exam Additional comments: calm - Skin Skin Exam: Warm Assessment and Plan (1) Chest pain Status: Acute (2) Radiating pain Status: Acute (3) COPD (chronic obstructive pulmonary disease) Status: Chronic (4) Pneumonia Status: Acute (5) Chronic lower urinary tract infection Status: Chronic (6) CAD (coronary artery disease) Status: Chronic (7) Chronic low back pain Status: Chronic (8) Diabetes mellitus Status: Chronic (9) Generalized weakness Status: Chronic (10) HTN (hypertension) Status: Chronic (11) Hypercholesterolemia Status: Chronic (12) Hypothyroidism Status: Chronic (13) Osteoarthritis Status: Chronic (14) Hx of CABG Status: Chronic - Assessment and Plan (Free Text) Plan: CXR PNA, CHF, add Giles Rosas, Cardiology consult appreciated, continue current treatment
[2018-03-14] MEDS: Clindamycin 600mg/50ml NS 600 MG/50 ML BAG IVPB SCH (20:44)
[2018-03-15] MEDS: Nitroglycerin 2% Ointment Foilpak UD TOP SCH ×4 (01:20→12:00)
[2018-03-15 05:55] LABS: CALCIUM 8.8 mg/dL (8.4-10.2)
[2018-03-15] MEDS: Levothyroxine 100 MCG TAB PO SCH (06:13)
[2018-03-15] MEDS: Insulin Regular 100 units/ml SC SCH ×4 (06:26→21:59)
--- NOTE | 2018-03-15 08:37 | CARD ---
APPROVED REPORT EXAM: Two-dimensional and M-mode echocardiogram with Doppler and color Doppler. Other Information Quality : GoodRhythm : NSR INDICATION Chest Pain 2D DIMENSIONS IVSd1.45 (0.7-1.1cm)LVDd3.85 (3.9-5.9cm) LVOT Diameter1.98 (1.8-2.4cm)PWd1.04 (0.7-1.1cm) IVSs1.50 (0.8-1.2cm)LVDs2.54 (2.5-4.0cm) FS (%) 34.1 %PWs1.37 (0.8-1.2cm) M-Mode DIMENSIONS Left Atrium (MM)4.32 (2.5-4.0cm)IVSd0.97 (0.7-1.1cm) Aortic Root2.94 (2.2-3.7cm)LVDd4.76 (4.0-5.6cm) Aortic Cusp Exc.1.47 (1.5-2.0cm)PWd0.91 (0.7-1.1cm) IVSs1.47 cmFS (%) 45 % LVDs2.62 (2.0-3.8cm)PWs1.56 cm Mitral Valve MV E Hopsierl68.2cm/sMV DECEL [id number] A Nroupgcg69.8cm/s MV ZNP01ckB/A ratio0.8MVA (PHT)2.35cm2 TDI Lateral E' Peak V3.18cm/sMedial E' Peak V3.42cm/sE/Lateral E'25.2 E/Medial E'23.5 Pulmonary Valve PV Peak Pjspibos01.5cm/s LEFT VENTRICLE The left ventricle is normal size. There is normal left ventricular wall thickness. The left ventricular function is normal. The left ventricular ejection fraction is within the normal range. There is normal LV segmental wall motion. Transmitral Doppler flow pattern is Grade I-abnormal relaxation pattern. RIGHT VENTRICLE The right ventricle is normal size. There is normal right ventricular wall thickness. The right ventricular systolic function is normal. ATRIA The left atrium size is normal. The right atrium size is normal. AORTIC VALVE The aortic valve is normal in structure. No aortic regurgitation is present. There is no aortic valvular stenosis. MITRAL VALVE The mitral valve is normal in structure. There is no evidence of mitral valve prolapse. There is no mitral valve stenosis. Mitral regurgitation is trace. TRICUSPID VALVE The tricuspid valve is normal in structure. There is no tricuspid valve regurgitation noted. PULMONIC VALVE The pulmonary valve is normal in structure. There is no pulmonic valvular regurgitation. GREAT VESSELS The aortic root is normal in size. The IVC is normal in size and collapses >50% with inspiration. PERICARDIAL EFFUSION The pericardium appears normal. <Conclusion> The left ventricle is normal size. There is normal left ventricular wall thickness. There is normal LV segmental wall motion. The left ventricular function is normal. The left ventricular ejection fraction is within the normal range. Transmitral Doppler flow pattern is Grade I-abnormal relaxation pattern.
[2018-03-15] MEDS ORDERED: levoFLOXacin 500 mg in D5W 500 MG/100 ML BAG IVPB SCH (09:00)
[2018-03-15] MEDS: Ranolazine 500 mg Extended Release Tablets PO SCH ×2 (09:34→18:24)
[2018-03-15] MEDS: Clindamycin 600mg/50ml NS 600 MG/50 ML BAG IVPB SCH ×2 (09:35→21:58)
[2018-03-15] MEDS: Lidocaine 5% Patch TD SCH (09:35)
--- NOTE | 2018-03-15 11:28 | CT ---
PROCEDURE: CT HEAD WITHOUT CONTRAST. HISTORY: lathargy COMPARISON: None available. TECHNIQUE: Axial computed tomography images were obtained through the head/brain without intravenous contrast. Radiation dose: Total exam DLP = 752.75 mGy-cm. This CT exam was performed using one or more of the following dose reduction techniques: Automated exposure control, adjustment of the mA and/or kV according to patient size, and/or use of iterative reconstruction technique. FINDINGS: HEMORRHAGE: No intracranial hemorrhage. BRAIN: No mass effect or edema. Moderate chronic periventricular white matter lucency with patchy and confluent deep/ subcortical white matter lucency, consistent with chronic microvascular ischemic change. No evidence of acute infarct. No change from 10/13/2017. Small old bilateral basal ganglia lacunar infarcts. VENTRICLES: Unremarkable. No hydrocephalus. CALVARIUM: Unremarkable. PARANASAL SINUSES: Minimal chronic bilateral maxillary sinusitis. MASTOID AIR CELLS: Unremarkable as visualized. No inflammatory changes. OTHER FINDINGS: None. IMPRESSION: No intracranial mass, hemorrhage or evidence of acute infarct. Chronic microvascular ischemic change. Minimal chronic bilateral maxillary sinusitis. Preliminary interpretation of this examination was reported by [facility] at 8:11 p.m. on 03/14/2018. There is concurrence of this report with the preliminary interpretation.
[2018-03-15] MEDS ORDERED: Levothyroxine 125 MCG TAB PO SCH (11:30)
--- NOTE | 2018-03-15 13:49 | PCM.RRT ---
<Igor Reidgarrick - Last Filed: 03/15/18 15:30> UROLOGY SURGEON Nurse Assessment - Situation Location: 406-1 UROLOGY SURGEON Reason for Call: Change in Mental Status UROLOGY SURGEON Called By: RN - IV IV Inserted during UROLOGY SURGEON?: No - Ventilator Settings Peak Flow: 150 - Stat Labs Ordered UROLOGY SURGEON Stat Labs Ordered: CBC, BMP, PT/PTT, TROPONIN, LACTIC ACID, ABG I.Reason for UROLOGY SURGEON - A) Acute Change in Patient: Subjective: UROLOGY SURGEON was called by RN for 77 y/o F, with PMHx of CABG, CHF, COPD, CKD, who was admitted for evaluation and treatment of chest pain for AMS and weakness. As per RN, patient was responsive this morning and stopped responding all the sudden with noticeable weakness and aphasia. Upon arrival, VS were reviewed; stable, patient seemed lethargic, minimally responsive, patient was able to follow commands but right side weakness was appreciated. As per family patient was verbally responsive this morning and c/o headache. Stroke protocol was called for the patient, patient was send for STAT CT head w/ Cont, STAT Stroke protocol labs were ordered, consult for neurology Dr. Hill was ordered. Dr. Oliver was informed. WIll follow up labs and CT. - Constitutional Appears: Confused - Head Head Exam: NORMAL INSPECTION - Respiratory Exam Respiratory Exam: Decreased Breath Sounds - Cardiovascular Exam Cardiovascular Exam: REGULAR RHYTHM - GI/Abdominal Exam GI & Abdominal Exam: Soft, Normal Bowel Sounds - Extremities Exam Additional comments: L TMA Plan - Assessment of Findings&Treatment Plan UROLOGY SURGEON was called for AMS and weakness for 77 y/o F, with PMHx of CABG, CHF, COPD, CKD, who was admitted for evaluation and treatment of chest pain - R/o metabolic encephalopathy vs stroke <Nydia Claudio - Last Filed: 03/15/18 16:45> NIHSS Stroke Scale - Date/Time Evaluation Performed Date Performed: 03/15/18 Time Performed: 13:41 When Was NIHSS Performed: Baseline - How Severe is the Stroke Level of Consciousness: 1=Drowsy LOC to Questions: 0=Both comments correct LOC to commands: 0=Obeys both correctly Best Gaze: 0=Normal Visual: 0=No visual loss Facial: 0=Normal Motor Arm - Left: 1=Drift noted before 10 sec Motor Arm - Right: 1=Drift noted before 10 sec Motor Leg - Left: 2=Falls before 5 sec Motor Leg - Right: 2=Falls before 5 sec Limb Ataxia: 0=Absent Sensory: 1=Mild to moderate loss Best Language: 1=Mild to moderate aphasia Dysarthia: 1=Mild to moderate slurring Extinction & Inattention (Neglect): 0=Normal, no object Score: 10 Attending/Attestation - Attestation I have personally seen and examined this patient.: Yes I have fully participated in the care of the patient.: Yes I have reviewed all pertinent clinical information, including history, physical exam and plan: Yes Notes (Text): Responded to the UROLOGY SURGEON with the Residents UROLOGY SURGEON was called bec of [facility]. Pt was awake and had breakfast this am however the pt was suddenly noted to be unresponsive. 77 y/o female with hx of CVA with some residual left hemiparesis, CAD, DM, CKD , CHF, admitted for Pneumonia. Pt seen and examined- when I got to her room , the pt was awake , oriented to person and place however her speech was very soft , slightly slurred and she had difficulty finding words She states that she was having some left sided numbness. On Exam pt was able to follow simple commands and answered questions appropriately Noted weakness on bothe UE and LE however left greater than right Code Stroke called -CT of head done: spoke with Dr Mukherjee- no acute findings, old infarcts -Code Stroke order set - labs , imaging, consults -NPO -Bedside Swallow eval by RN -ASA, statin -Glucose 178 -Neurology consulted - Dr Suh, case discussed -Pt's PMD- Dr Oliver notified of event.
--- NOTE | 2018-03-15 14:20 | CT ---
PROCEDURE: CT HEAD WITHOUT CONTRAST. HISTORY: HEAD CUSTODIAN COMPARISON: 03/14/2018 TECHNIQUE: Axial computed tomography images were obtained through the head/brain without intravenous contrast. Radiation dose: Total exam DLP = 848.35 mGy-cm. This CT exam was performed using one or more of the following dose reduction techniques: Automated exposure control, adjustment of the mA and/or kV according to patient size, and/or use of iterative reconstruction technique. FINDINGS: HEMORRHAGE: No intracranial hemorrhage. BRAIN: No mass effect or edema. Minimal atrophy. Moderate periventricular white matter lucency with patchy and confluent deep and subcortical white matter lucency, consistent with microvascular white matter ischemic change. No evidence of acute infarct. VENTRICLES: Unremarkable. No hydrocephalus. CALVARIUM: Unremarkable. PARANASAL SINUSES: Minimal chronic bilateral maxillary sinusitis. MASTOID AIR CELLS: Unremarkable as visualized. No inflammatory changes. OTHER FINDINGS: None. IMPRESSION: No intracranial hemorrhage or evidence of acute infarct. Chronic white matter ischemic change. No change from 03/14/2018. The results of this examination were discussed by telephone with Dr. Claudio at 2:08 p.m. on 03/05/2018
[2018-03-15 14:34] LABS: BASO % 0.7 % (0.0-2.0); EOS # 0.4 K/uL (0.0-0.7); EOS % 6.9 % (0.0-4.0); HEMOGLOBIN 10.3 g/dL (12.0-16.0); LYMPH # 1.9 K/uL (1.0-4.3); LYMPH % 31.8 % (20.0-40.0); MEAN CELL VOLUME 97.1 fl (81.0-99.0); MEAN CORPUSCULAR HEMOGLOBIN 31.8 pg (27.0-31.0); MEAN CORPUSCULAR HGB CONC 32.8 g/dL (33.0-37.0); MEAN PLATELET VOLUME 8.6 fl (7.2-11.7); MONO # 0.6 K/uL (0.0-0.8); NEUT % 50.6 % (50.0-75.0); RBC 3.24 Mil/uL (3.80-5.20); RED CELL DISTRIBUTION WIDTH 13.9 % (11.5-14.5); WHITE BLOOD COUNT 5.9 K/uL (4.8-10.8)
[2018-03-15 14:53] LABS: ALB/GLOB RATIO 0.9 (1.0-2.1); ALBUMIN 3.2 g/dL (3.5-5.0); ALT/SGPT 23 U/L (9-52); AST/SGOT 22 U/L (14-36); BLOOD UREA NITROGEN 39 mg/dl (7-17); GFR AFRICAN-AMERICAN 27; GFR NON-AFRICAN AMERICAN 23; HDL CHOLESTEROL 32 MG/DL (30-70); PROTHROMBIN TIME 10.8 Seconds (9.8-13.1)
[2018-03-15 14:54] LABS: PARTIAL THROMBOPLASTIN TIME 31.3 Seconds (25.6-37.1)
[2018-03-15] MEDS: Sodium Chloride 0.9% 1,000 ML IV SCH (14:55)
[2018-03-15 14:57] LABS: LDL CHOLESTEROL 52 mg/dL (0-129)
--- NOTE | 2018-03-15 14:59 | CP.PCM.PN ---
Subjective - Date & Time of Evaluation Date of Evaluation: 03/15/18 Time of Evaluation: 11:20 - Subjective Subjective: F/U CP s/p HABITAT MANAGEMENT COORDINATOR , Patient became unresponsive , Had CT Head today 03-15 awake , no change when compared with previous CT on 03-14 , awake , answer questions slowly , follows commands Objective - Vital Signs/Intake and Output Vital Signs (last 24 hours): Temp Pulse Resp BP Pulse Ox 98.0 F 60 16 138/79 98 03/15/18 13:46 03/15/18 13:46 03/15/18 13:46 03/15/18 13:46 03/15/18 13:46 - Medications Medications: Current Medications Acetaminophen/Codeine Phosphate (Tylenol/Codeine 300 Mg/30 Mg) 1 tab PO Q6 PRN PRN Reason: Pain, severe (8-10) Aspirin (Ecotrin) 81 mg PO DAILY [facility] Last Admin: 03/15/18 09:33 Dose: 81 mg Atorvastatin Calcium (Lipitor) 40 mg PO HS [facility] Last Admin: 03/14/18 21:01 Dose: 40 mg Carvedilol (Coreg) 3.125 mg PO DAILY [facility] Last Admin: 03/15/18 09:36 Dose: 3.125 mg Docusate Sodium (Colace) 100 mg PO DAILY PRN PRN Reason: Constipation Last Admin: 03/13/18 09:24 Dose: 100 mg Ferrous Sulfate (Feosol) 325 mg PO DAILY [facility] Last Admin: 03/15/18 09:33 Dose: 325 mg Furosemide (Lasix) 40 mg PO DAILY [facility] Last Admin: 03/15/18 09:34 Dose: 40 mg Gabapentin (Neurontin) 100 mg PO BID [facility] Last Admin: 03/15/18 09:33 Dose: 100 mg Heparin Sodium (Porcine) (Heparin) 5,000 units SC Q12 [facility] PRN Reason: Protocol Clindamycin Phosphate (Cleocin In Normal Saline) 600 mg in 50 mls @ 50 mls/hr IVPB Q12 [facility] PRN Reason: Protocol Last Admin: 03/15/18 09:35 Dose: 50 mls/hr Levofloxacin/Dextrose (Levaquin 500mg) 500 mg in 100 mls @ 100 mls/hr IVPB DAILY [facility] PRN Reason: Protocol Last Admin: 03/15/18 09:37 Dose: 100 mls/hr Sodium Chloride (Sodium Chloride 0.9%) 1,000 mls @ 100 mls/hr IV .Q10H [facility] Last Admin: 03/15/18 14:55 Dose: 100 mls/hr Insulin Human Regular (Humulin R) 0 units SC ACCU-CHECK [facility] PRN Reason: Protocol Last Admin: 03/15/18 12:00 Dose: Not Given Levothyroxine Sodium (Synthroid) 125 mcg PO DAILY@0630 [facility] Lidocaine (Lidoderm) 1 ea TD DAILY [facility] Last Admin: 03/15/18 09:35 Dose: 1 ea Loratadine (Claritin) 10 mg PO DAILY [facility] Last Admin: 03/15/18 09:35 Dose: 10 mg Nitroglycerin (Nitrostat Sl Tab) 0.4 mg SL Q5MIN PRN PRN Reason: FOR CHEST, ANIGINAL DISCOMFORT Ranolazine (Ranexa) 1,000 mg PO BID [facility] Last Admin: 03/15/18 09:34 Dose: 1,000 mg - Labs Labs: 03/15/18 14:06 03/15/18 14:06 PT 10.8 Seconds (9.8-13.1) 03/15/18 14:06 INR 1.0 (0.9-1.2) 03/15/18 14:06 APTT 31.3 Seconds (25.6-37.1) 03/15/18 14:06 - Constitutional Appears: No Acute Distress, Chronically Ill - Head Exam Head Exam: NORMAL INSPECTION - Eye Exam Eye Exam: PERRL Additional comments: R eye, L eye blind - ENT Exam Additional comments: hard of hear R side - Neck Exam Neck Exam: Normal Inspection - Respiratory Exam Respiratory Exam: Decreased Breath Sounds (at bases) - Cardiovascular Exam Cardiovascular Exam: REGULAR RHYTHM, Murmur (systolic 2/6 LSB) - GI/Abdominal Exam GI & Abdominal Exam: Soft, Normal Bowel Sounds - Extremities Exam Additional comments: L TMA - Back Exam Back Exam: tenderness - Neurological Exam Neurological Exam: Awake Additional comments: awake , follows commands , generalized weakness - Psychiatric Exam Psychiatric exam: Anxious - Skin Skin Exam: Warm Assessment and Plan (1) Chest pain Status: Acute (2) Radiating pain Status: Acute (3) COPD (chronic obstructive pulmonary disease) Status: Chronic (4) Chronic lower urinary tract infection Status: Chronic (5) CAD (coronary artery disease) Status: Acute (6) Pneumonia Status: Acute (7) Chronic low back pain Status: Chronic (8) Diabetes mellitus Status: Chronic (9) Generalized weakness Status: Chronic (10) HTN (hypertension) Status: Chronic (11) Hypothyroidism Status: Chronic (12) Hypercholesterolemia Status: Chronic (13) Osteoarthritis Status: Chronic (14) Hx of CABG Status: Chronic - Assessment and Plan (Free Text) Plan: AMS improved , no Acute CVA, CXR PNA improved , f/u Cardiology , continue Clinda , Levaquin , Ranexa , Lasix , Insulin and rest of treatment
--- NOTE | 2018-03-15 15:14 | RAD ---
HISTORY: Code Stroke COMPARISON: 03/14/2018 FINDINGS: LUNGS: Improved aeration of the lungs particularly at the lung bases. PLEURA: No significant pleural effusion identified, no pneumothorax apparent. CARDIOVASCULAR: No radiographic findings to suggest acute or significant cardiovascular disease. No radiographic findings to suggest acute or significant cardiovascular disease. Incidental Finding(s): Postoperative changes related to sternotomy. OSSEOUS STRUCTURES: No significant abnormalities. VISUALIZED UPPER ABDOMEN: Normal. OTHER FINDINGS: None. IMPRESSION: Interval improvement in lower lobe infiltrates.
--- NOTE | 2018-03-15 16:59 | US ---
PROCEDURE: Duplex ultrasound of the carotid and vertebral arteries. HISTORY: cva COMPARISON: 08/30/2017 TECHNIQUE: Grayscale and duplex Doppler evaluation of the cervical carotid and vertebral arteries were performed. The common carotid, carotid bifurcations and cervical ICA and proximal ECA were evaluated. The vertebral arteries were evaluated for gross patency and direction. FINDINGS: RIGHT CAROTID ARTERIES: Common Carotid Artery: Intimal thickening is present Maximal flow velocity of 80.7 cm/s. Carotid Bifurcation: Normal. Internal Carotid Artery:Heterogeneous plaque formation. Maximal flow velocity of 120.5 cm/s. External Carotid Artery (proximal branches): Normal. Maximal flow velocity of 72.9 cm/s. ICA/CCA Ratio: 2.0 LEFT CAROTID ARTERIES: Common Carotid Artery: Intimal thickening is present Maximal flow velocity of 109.7 cm/s. Carotid Bifurcation: Normal. Internal Carotid Artery:Heterogeneous plaque formation. Maximal flow velocity of 106.4 cm/s. External Carotid Artery (proximal branches): Normal. Maximal flow velocity of 116.1 cm/s. ICA/CCA Ratio: 1.0 VERTEBRAL ARTERIES: Right Vertebral Artery: Patent. Antegrade flow. Left Vertebral Artery: Patent. Antegrade flow. OTHER FINDINGS: None. IMPRESSION: Right ICA degree of stenosis: Less than 50% Left ICA degree of stenosis: Less than 50% Decrease in flow velocities right internal carotid artery and both external carotid arteries compared to prior studies. Reference Internal Carotid Artery (ICA) Peak Systolic Velocity (PSV) for above: 1. Less than 50% stenosis less than 125 cm/s peak systolic velocity 2. 50-69% stenosis 125-230cm/s peak systolic velocity 3. Greater than 70% but less than near occlusion greater than 230 cm/s peak systolic velocity
--- NOTE | 2018-03-15 18:58 | CP.PCM.PN ---
Subjective - Date & Time of Evaluation Date of Evaluation: 03/15/18 Time of Evaluation: 18:55 Objective - Vital Signs/Intake and Output Vital Signs (last 24 hours): Temp Pulse Resp BP Pulse Ox 97.7 F 66 18 129/72 98 03/15/18 16:31 03/15/18 16:31 03/15/18 16:31 03/15/18 16:31 03/15/18 16:31 Intake and Output: 03/15/18 03/15/18 06:59 18:59 Intake Total 1360 Balance 1360 - Medications Medications: Current Medications Acetaminophen/Codeine Phosphate (Tylenol/Codeine 300 Mg/30 Mg) 1 tab PO Q6 PRN PRN Reason: Pain, severe (8-10) Aspirin (Ecotrin) 81 mg PO DAILY [facility] Last Admin: 03/15/18 09:33 Dose: 81 mg Atorvastatin Calcium (Lipitor) 40 mg PO HS [facility] Last Admin: 03/14/18 21:01 Dose: 40 mg Carvedilol (Coreg) 3.125 mg PO DAILY [facility] Last Admin: 03/15/18 09:36 Dose: 3.125 mg Docusate Sodium (Colace) 100 mg PO DAILY PRN PRN Reason: Constipation Last Admin: 03/13/18 09:24 Dose: 100 mg Ferrous Sulfate (Feosol) 325 mg PO DAILY [facility] Last Admin: 03/15/18 09:33 Dose: 325 mg Furosemide (Lasix) 40 mg PO DAILY [facility] Last Admin: 03/15/18 09:34 Dose: 40 mg Gabapentin (Neurontin) 100 mg PO BID [facility] Last Admin: 03/15/18 18:24 Dose: 100 mg Heparin Sodium (Porcine) (Heparin) 5,000 units SC Q12 [facility] PRN Reason: Protocol Clindamycin Phosphate (Cleocin In Normal Saline) 600 mg in 50 mls @ 50 mls/hr IVPB Q12 [facility] PRN Reason: Protocol Last Admin: 03/15/18 09:35 Dose: 50 mls/hr Sodium Chloride (Sodium Chloride 0.9%) 1,000 mls @ 100 mls/hr IV .Q10H [facility] Last Admin: 03/15/18 14:55 Dose: 100 mls/hr Levofloxacin/Dextrose (Levaquin 250mg) 250 mg in 50 mls @ 50 mls/hr IVPB Q48H [facility] Insulin Human Regular (Humulin R) 0 units SC ACCU-CHECK [facility] PRN Reason: Protocol Last Admin: 03/15/18 17:53 Dose: Not Given Levothyroxine Sodium (Synthroid) 125 mcg PO DAILY@0630 [facility] Lidocaine (Lidoderm) 1 ea TD DAILY [facility] Last Admin: 03/15/18 09:35 Dose: 1 ea Loratadine (Claritin) 10 mg PO DAILY [facility] Last Admin: 03/15/18 09:35 Dose: 10 mg Nitroglycerin (Nitrostat Sl Tab) 0.4 mg SL Q5MIN PRN PRN Reason: FOR CHEST, ANIGINAL DISCOMFORT Ranolazine (Ranexa) 1,000 mg PO BID [facility] Last Admin: 03/15/18 18:24 Dose: 1,000 mg - Labs Labs: 03/15/18 14:06 03/15/18 14:06 PT 10.8 Seconds (9.8-13.1) 03/15/18 14:06 INR 1.0 (0.9-1.2) 03/15/18 14:06 APTT 31.3 Seconds (25.6-37.1) 03/15/18 14:06 Assessment and Plan (1) Chest pain Status: Acute (2) Diabetes mellitus with hyperglycemia Status: Acute (3) PVD (peripheral vascular disease) Status: Acute (4) HTN (hypertension) Status: Chronic (5) Hypercholesterolemia Status: Chronic (6) Hypothyroidism Status: Chronic (7) Hx of CABG Status: Acute - Assessment and Plan (Free Text) Plan: maximo soliman spoke with her outpt extension course counselor. st finding is chronic. she did have cath and grafts were patent. bp and hr controlled echo nml ef
[2018-03-16] MEDS: Sodium Chloride 0.9% 1,000 ML IV SCH ×3 (00:49→13:19)
[2018-03-16] MEDS: Levothyroxine 125 MCG TAB PO SCH (05:56)
[2018-03-16] MEDS: Insulin Regular 100 units/ml SC SCH ×4 (08:46→22:36)
[2018-03-16] MEDS: Lidocaine 5% Patch TD SCH (08:50)
[2018-03-16] MEDS: Clindamycin 600mg/50ml NS 600 MG/50 ML BAG IVPB SCH ×2 (08:58→22:27)
[2018-03-16] MEDS: Ranolazine 500 mg Extended Release Tablets PO SCH ×2 (09:01→18:48)
--- NOTE | 2018-03-16 09:38 | CARD ---
APPROVED REPORT EKG Measurement Heart [id number] [place] [id number] <Conclusion> Normal sinus rhythm Normal ECG
[2018-03-16] MEDS: Albuterol-Ipratrop 3 mg / 0.5 (3 ml) UD INH SCH ×3 (12:43→19:06)
[2018-03-16 13:53] LABS: CALCIUM 8.5 mg/dL (8.4-10.2)
--- NOTE | 2018-03-16 15:44 | CP.PCM.PN ---
Subjective - Date & Time of Evaluation Date of Evaluation: 03/16/18 Time of Evaluation: 11:00 - Subjective Subjective: Awake , no AD , answer questions slowly , Patient's daughter at bedside Objective - Vital Signs/Intake and Output Vital Signs (last 24 hours): Temp Pulse Resp BP Pulse Ox 97.4 F L 67 18 121/76 94 L 03/16/18 12:24 03/16/18 12:24 03/16/18 12:24 03/16/18 12:24 03/16/18 12:24 - Medications Medications: Current Medications Albuterol/Ipratropium (Duoneb 3 Mg/0.5 Mg (3 Ml) Ud) 3 ml INH RQ6 [facility] Last Admin: 03/16/18 12:43 Dose: 3 ml Aspirin (Ecotrin) 81 mg PO DAILY [facility] Last Admin: 03/16/18 09:00 Dose: 81 mg Atorvastatin Calcium (Lipitor) 40 mg PO HS [facility] Last Admin: 03/15/18 22:00 Dose: 40 mg Carvedilol (Coreg) 3.125 mg PO DAILY [facility] Last Admin: 03/16/18 09:01 Dose: 3.125 mg Clotrimazole (Lotrimin 1% Cream) 1 applic TOP BID [facility] Docusate Sodium (Colace) 100 mg PO DAILY PRN PRN Reason: Constipation Last Admin: 03/13/18 09:24 Dose: 100 mg Ferrous Sulfate (Feosol) 325 mg PO DAILY [facility] Last Admin: 03/16/18 09:00 Dose: 325 mg Furosemide (Lasix) 40 mg PO DAILY [facility] Last Admin: 03/16/18 11:38 Dose: Not Given Gabapentin (Neurontin) 100 mg PO BID [facility] Last Admin: 03/16/18 08:59 Dose: 100 mg Heparin Sodium (Porcine) (Heparin) 5,000 units SC Q12 [facility] PRN Reason: Protocol Last Admin: 03/16/18 08:48 Dose: 5,000 units Clindamycin Phosphate (Cleocin In Normal Saline) 600 mg in 50 mls @ 50 mls/hr IVPB Q12 [facility] PRN Reason: Protocol Last Admin: 03/16/18 08:58 Dose: 50 mls/hr Levofloxacin/Dextrose (Levaquin 250mg) 250 mg in 50 mls @ 50 mls/hr IVPB Q48H [facility] Sodium Chloride (Sodium Chloride 0.9%) 1,000 mls @ 50 mls/hr IV .Q20H [facility] Stop: 03/17/18 11:36 Last Admin: 03/16/18 13:19 Dose: 50 mls/hr Insulin Human Regular (Humulin R) 0 units SC ACCU-CHECK [facility] PRN Reason: Protocol Last Admin: 03/16/18 13:18 Dose: 4 units Levothyroxine Sodium (Synthroid) 125 mcg PO DAILY@0630 [facility] Last Admin: 03/16/18 05:56 Dose: 125 mcg Lidocaine (Lidoderm) 1 ea TD DAILY [facility] Last Admin: 03/16/18 08:50 Dose: 1 ea Loratadine (Claritin) 10 mg PO DAILY [facility] Last Admin: 03/16/18 08:59 Dose: 10 mg Nitroglycerin (Nitrostat Sl Tab) 0.4 mg SL Q5MIN PRN PRN Reason: FOR CHEST, ANIGINAL DISCOMFORT Ranolazine (Ranexa) 1,000 mg PO BID [facility] Last Admin: 03/16/18 09:01 Dose: 1,000 mg - Labs Labs: 03/15/18 14:06 03/16/18 12:52 PT 10.8 Seconds (9.8-13.1) 03/15/18 14:06 INR 1.0 (0.9-1.2) 03/15/18 14:06 APTT 31.3 Seconds (25.6-37.1) 03/15/18 14:06 - Constitutional Appears: No Acute Distress, Chronically Ill - Head Exam Head Exam: NORMAL INSPECTION - Eye Exam Additional comments: sluggish reaction - Neck Exam Neck Exam: Normal Inspection - Respiratory Exam Respiratory Exam: Decreased Breath Sounds (at bases), Rhonchi (few at bases) - Cardiovascular Exam Cardiovascular Exam: REGULAR RHYTHM, Murmur (systolic 2/6 LSB) - GI/Abdominal Exam GI & Abdominal Exam: Soft, Normal Bowel Sounds - Extremities Exam Additional comments: L chest wall , L shoulder tenderness , L TMA - Back Exam Back Exam: tenderness (mild) - Neurological Exam Additional comments: awake , Ox2 , answer questions slowly , follows commands , no focal motor deficit , generalized weakness - Skin Skin Exam: Warm Assessment and Plan (1) Change in mental status Assessment & Plan: Patient is back to her baseline , MRI of the Brain no Acute or subacute infarct , age related neurodegenerative changes Status: Resolved (2) Pneumonia Assessment & Plan: on Levaquin , Clinda IV . DuoNeb Status: Acute (3) Chest pain Status: Acute (4) Radiating pain Assessment & Plan: musculo-skeletal Status: Acute (5) COPD (chronic obstructive pulmonary disease) Assessment & Plan: stable Status: Chronic (6) Chronic lower urinary tract infection Status: Chronic (7) CAD (coronary artery disease) Assessment & Plan: stable Status: Chronic (8) Chronic low back pain Status: Chronic (9) Diabetes mellitus Assessment & Plan: stable Status: Chronic (10) Generalized weakness Status: Chronic (11) HTN (hypertension) Status: Chronic (12) Hypercholesterolemia Status: Chronic (13) Hypothyroidism Status: Chronic (14) Osteoarthritis Status: Chronic (15) Hx of CABG Status: Chronic
--- NOTE | 2018-03-16 16:14 | CP.PCM.PN ---
Subjective - Date & Time of Evaluation Date of Evaluation: 03/16/18 Time of Evaluation: 17:00 - Subjective Subjective: PTS VSS. LABS REVIEWED. COMPLAINTS CHRONIC. ECHO REVIEWED. CONT CURRENT CARDIAC MEDS. Objective - Vital Signs/Intake and Output Vital Signs (last 24 hours): Temp Pulse Resp BP Pulse Ox 97.4 F L 67 18 121/76 94 L 03/16/18 12:24 03/16/18 12:24 03/16/18 12:24 03/16/18 12:24 03/16/18 12:24 Intake and Output: 03/16/18 03/16/18 06:59 18:59 Intake Total 290 Balance 290 - Medications Medications: Current Medications Albuterol/Ipratropium (Duoneb 3 Mg/0.5 Mg (3 Ml) Ud) 3 ml INH RQ6 [facility] Last Admin: 03/16/18 12:43 Dose: 3 ml Aspirin (Ecotrin) 81 mg PO DAILY [facility] Last Admin: 03/16/18 09:00 Dose: 81 mg Atorvastatin Calcium (Lipitor) 40 mg PO HS [facility] Last Admin: 03/15/18 22:00 Dose: 40 mg Carvedilol (Coreg) 3.125 mg PO DAILY [facility] Last Admin: 03/16/18 09:01 Dose: 3.125 mg Clotrimazole (Lotrimin 1% Cream) 1 applic TOP BID [facility] Docusate Sodium (Colace) 100 mg PO DAILY PRN PRN Reason: Constipation Last Admin: 03/13/18 09:24 Dose: 100 mg Ferrous Sulfate (Feosol) 325 mg PO DAILY [facility] Last Admin: 03/16/18 09:00 Dose: 325 mg Furosemide (Lasix) 40 mg PO DAILY [facility] Last Admin: 03/16/18 11:38 Dose: Not Given Gabapentin (Neurontin) 100 mg PO BID [facility] Last Admin: 03/16/18 08:59 Dose: 100 mg Heparin Sodium (Porcine) (Heparin) 5,000 units SC Q12 [facility] PRN Reason: Protocol Last Admin: 03/16/18 08:48 Dose: 5,000 units Clindamycin Phosphate (Cleocin In Normal Saline) 600 mg in 50 mls @ 50 mls/hr IVPB Q12 [facility] PRN Reason: Protocol Last Admin: 03/16/18 08:58 Dose: 50 mls/hr Levofloxacin/Dextrose (Levaquin 250mg) 250 mg in 50 mls @ 50 mls/hr IVPB Q48H [facility] Sodium Chloride (Sodium Chloride 0.9%) 1,000 mls @ 50 mls/hr IV .Q20H [facility] Stop: 03/17/18 11:36 Last Admin: 03/16/18 13:19 Dose: 50 mls/hr Insulin Human Regular (Humulin R) 0 units SC ACCU-CHECK [facility] PRN Reason: Protocol Last Admin: 03/16/18 13:18 Dose: 4 units Levothyroxine Sodium (Synthroid) 125 mcg PO DAILY@0630 [facility] Last Admin: 03/16/18 05:56 Dose: 125 mcg Lidocaine (Lidoderm) 1 ea TD DAILY [facility] Last Admin: 03/16/18 08:50 Dose: 1 ea Loratadine (Claritin) 10 mg PO DAILY [facility] Last Admin: 03/16/18 08:59 Dose: 10 mg Nitroglycerin (Nitrostat Sl Tab) 0.4 mg SL Q5MIN PRN PRN Reason: FOR CHEST, ANIGINAL DISCOMFORT Ranolazine (Ranexa) 1,000 mg PO BID [facility] Last Admin: 03/16/18 09:01 Dose: 1,000 mg - Labs Labs: 03/15/18 14:06 03/16/18 12:52 PT 10.8 Seconds (9.8-13.1) 03/15/18 14:06 INR 1.0 (0.9-1.2) 03/15/18 14:06 APTT 31.3 Seconds (25.6-37.1) 03/15/18 14:06 Assessment and Plan (1) Chest pain Status: Acute (2) Diabetes mellitus with hyperglycemia Status: Acute (3) PVD (peripheral vascular disease) Status: Acute (4) HTN (hypertension) Status: Chronic (5) Hypercholesterolemia Status: Chronic (6) Hypothyroidism Status: Chronic (7) Hx of CABG Status: Acute
[2018-03-16] MEDS ORDERED: Sodium Chloride 0.45% 1,000 ML IV SCH (16:15)
--- NOTE | 2018-03-16 19:40 | CP.PCM.CON ---
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 She recovered normally and is now resting comfortably in bed. She is able to follow commands, and does not have a recollection of the events of yesterday. 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 PMH/PSH: CABG, CHF, COPD, CKD FH/SH: All: morphine, penicillins. on exam: Exam shows in brief right arm weakness. exam conducted in sri [place]ankan. PERRL. CN 2-12 normal. Speech fluent. no dysarthria or aphasia. Only weakness noted is in her right upper limb which is 3/5. She is also weak in her legs bilterally. +1 dtr ul and ll bl. Toes downgoing. No clonus. Past Patient History - Infectious Disease Hx of Infectious Diseases: None - Tetanus Immunizations Tetanus Immunization: Unknown - Past Medical History & Family History Past Medical History?: Yes - Past Social History Smoking Status: Never Smoked Alcohol: None Drugs: Denies Home Situation {Lives}: With Family - CARDIAC Hx Cardiac Disorders: Yes Hx Congestive Heart Failure: Yes Hx Hypercholesterolemia: Yes Hx Hypertension: Yes Hx Pacemaker: Yes Hx Peripheral Edema: Yes - PULMONARY Hx Respiratory Disorders: Yes Hx Asthma: Yes Hx Bronchitis: Yes Hx Chronic Obstructive Pulmonary Disease (COPD): Yes Hx Pneumonia: Yes - NEUROLOGICAL Hx Dementia: Yes Hx Seizures: Yes - HEENT Hx HEENT Problems: Yes Hx Blind: Yes (left eye) Other/Comment: Hard of hear R ear., left eye blind - RENAL Hx Chronic Kidney Disease: Yes (mild renal insufficiecy.) - ENDOCRINE/METABOLIC Hx Endocrine Disorders: Yes Hx Hypothyroidism: Yes - HEMATOLOGICAL/ONCOLOGICAL Hx Blood Disorders: Yes Hx Anemia: Yes Hx Human Immunodeficiency Virus (HIV): No - INTEGUMENTARY Hx Dermatological Problems: No - MUSCULOSKELETAL/RHEUMATOLOGICAL Hx Arthritis: Yes Hx Rheumatoid Arthritis: No - GASTROINTESTINAL Hx Gastrointestinal Disorders: Yes Hx Gastritis: Yes - GENITOURINARY/GYNECOLOGICAL Hx Genitourinary Disorders: Yes Hx Incontinence: Yes Hx Urinary Tract Infection: Yes - PSYCHIATRIC Hx Psychophysiologic Disorder: Yes Hx Anxiety: Yes Hx Depression: Yes - SURGICAL HISTORY Hx Surgeries: Yes Hx Cholecystectomy: Yes Hx Coronary Artery Bypass Graft: Yes (x4) Hx Coronary Stent: Yes - ANESTHESIA Hx Anesthesia: Yes Hx Anesthesia Reactions: No Hx Malignant Hyperthermia: No Meds Allergies/Adverse Reactions: Allergies Allergy/AdvReac Type Severity Reaction Status Date / Time kiwi Allergy Mild RASH Verified 10/18/17 18:48 morphine Allergy Mild RASH Verified 10/18/17 18:48 Penicillins Allergy Mild RASH Verified 10/18/17 18:48 pineapple Allergy Mild RASH Verified 10/18/17 18:48 watermelon Allergy Mild RASH Verified 10/18/17 18:48 - Medications Medications: Current Medications Aspirin (Ecotrin) 81 mg PO DAILY [facility] Last Admin: 03/16/18 09:00 Dose: 81 mg Atorvastatin Calcium (Lipitor) 40 mg PO HS [facility] Last Admin: 03/15/18 22:00 Dose: 40 mg Carvedilol (Coreg) 3.125 mg PO DAILY [facility] Last Admin: 03/16/18 09:01 Dose: 3.125 mg Docusate Sodium (Colace) 100 mg PO DAILY PRN PRN Reason: Constipation Last Admin: 03/13/18 09:24 Dose: 100 mg Ferrous Sulfate (Feosol) 325 mg PO DAILY [facility] Last Admin: 03/16/18 09:00 Dose: 325 mg Furosemide (Lasix) 40 mg PO DAILY [facility] Last Admin: 03/15/18 09:34 Dose: 40 mg Gabapentin (Neurontin) 100 mg PO BID [facility] Last Admin: 03/16/18 08:59 Dose: 100 mg Heparin Sodium (Porcine) (Heparin) 5,000 units SC Q12 [facility] PRN Reason: Protocol Last Admin: 03/16/18 08:48 Dose: 5,000 units Clindamycin Phosphate (Cleocin In Normal Saline) 600 mg in 50 mls @ 50 mls/hr IVPB Q12 [facility] PRN Reason: Protocol Last Admin: 03/16/18 08:58 Dose: 50 mls/hr Sodium Chloride (Sodium Chloride 0.9%) 1,000 mls @ 100 mls/hr IV .Q10H [facility] Last Admin: 03/16/18 10:40 Dose: 100 mls/hr Levofloxacin/Dextrose (Levaquin 250mg) 250 mg in 50 mls @ 50 mls/hr IVPB Q48H [facility] Insulin Human Regular (Humulin R) 0 units SC ACCU-CHECK [facility] PRN Reason: Protocol Last Admin: 03/16/18 08:46 Dose: 4 units Levothyroxine Sodium (Synthroid) 125 mcg PO DAILY@0630 [facility] Last Admin: 03/16/18 05:56 Dose: 125 mcg Lidocaine (Lidoderm) 1 ea TD DAILY [facility] Last Admin: 03/16/18 08:50 Dose: 1 ea Loratadine (Claritin) 10 mg PO DAILY [facility] Last Admin: 03/16/18 08:59 Dose: 10 mg Nitroglycerin (Nitrostat Sl Tab) 0.4 mg SL Q5MIN PRN PRN Reason: FOR CHEST, ANIGINAL DISCOMFORT Ranolazine (Ranexa) 1,000 mg PO BID [facility] Last Admin: 03/16/18 09:01 Dose: 1,000 mg Results - Vital Signs Recent Vital Signs: Last Vital Signs Temp 97.5 F L 03/16/18 08:09 Pulse 68 03/16/18 10:50 Resp 18 03/16/18 08:09 BP 143/73 03/16/18 09:01 Pulse Ox 100 03/16/18 10:50 - Labs Result Diagrams: 03/15/18 14:06 03/16/18 12:52 Labs: Laboratory Results - last 24 hr 03/15/18 03/15/18 03/15/18 11:53 13:28 14:06 WBC 5.9 RBC 3.24 L Hgb 10.3 L Hct 31.5 L MCV 97.1 MCH 31.8 H MCHC 32.8 L RDW 13.9 Plt Count 201 MPV 8.6 Neut % (Auto) 50.6 Lymph % (Auto) 31.8 Spencer % (Auto) 10.0 Eos % (Auto) 6.9 H Baso % (Auto) 0.7 Neut # (Auto) 3.0 Lymph # (Auto) 1.9 Spencer # (Auto) 0.6 Eos # (Auto) 0.4 Baso # (Auto) 0.0 PT INR APTT Sodium Potassium Chloride Carbon Dioxide Anion Gap BUN Creatinine Est GFR ( Amer) Est GFR (Non-Af Amer) POC Glucose (mg/dL) 172 H 166 H Random Glucose Hemoglobin A1c Calcium Total Bilirubin AST ALT Alkaline Phosphatase Troponin I Total Protein Albumin Globulin Albumin/Globulin Ratio Triglycerides Cholesterol LDL Cholesterol Direct HDL Cholesterol Blood Type Antibody Screen [facility] History Checked 03/15/18 03/15/18 03/15/18 14:06 14:06 14:06 WBC RBC Hgb Hct MCV MCH MCHC RDW Plt Count MPV Neut % (Auto) Lymph % (Auto) Spencer % (Auto) Eos % (Auto) Baso % (Auto) Neut # (Auto) Lymph # (Auto) Spencer # (Auto) Eos # (Auto) Baso # (Auto) PT 10.8 INR 1.0 APTT 31.3 Sodium 137 Potassium 4.6 Chloride 99 Carbon Dioxide 33 H Anion Gap 10 BUN 39 H Creatinine 2.1 H Est GFR ( Amer) 27 Est GFR (Non-Af Amer) 23 POC Glucose (mg/dL) Random Glucose 169 H Hemoglobin A1c 6.3 Calcium 9.0 Total Bilirubin 0.8 AST 22 ALT 23 Alkaline Phosphatase 73 Troponin I < 0.0120 Total Protein 6.9 Albumin 3.2 L Globulin 3.7 Albumin/Globulin Ratio 0.9 L Triglycerides 141 Cholesterol 138 LDL Cholesterol Direct 52 HDL Cholesterol 32 Blood Type Antibody Screen BBK History Checked 03/15/18 03/15/18 03/15/18 14:06 16:16 21:31 WBC RBC Hgb Hct MCV MCH MCHC RDW Plt Count MPV Neut % (Auto) Lymph % (Auto) Spencer % (Auto) Eos % (Auto) Baso % (Auto) Neut # (Auto) Lymph # (Auto) Spencer # (Auto) Eos # (Auto) Baso # (Auto) PT INR APTT Sodium Potassium Chloride Carbon Dioxide Anion Gap BUN Creatinine Est GFR ( Amer) Est GFR (Non-Af Amer) POC Glucose (mg/dL) 172 H 309 H Random Glucose Hemoglobin A1c Calcium Total Bilirubin AST ALT Alkaline Phosphatase Troponin I Total Protein Albumin Globulin Albumin/Globulin Ratio Triglycerides Cholesterol LDL Cholesterol Direct HDL Cholesterol Blood Type O POSITIVE Antibody Screen Negative BBK History Checked Patient has bt 03/16/18 05:50 WBC RBC Hgb Hct MCV MCH MCHC RDW Plt Count MPV Neut % (Auto) Lymph % (Auto) Spencer % (Auto) Eos % (Auto) Baso % (Auto) Neut # (Auto) Lymph # (Auto) Spencer # (Auto) Eos # (Auto) Baso # (Auto) PT INR APTT Sodium Potassium Chloride Carbon Dioxide Anion Gap BUN Creatinine Est GFR ( Amer) Est GFR (Non-Af Amer) POC Glucose (mg/dL) 229 H Random Glucose Hemoglobin A1c Calcium Total Bilirubin AST ALT Alkaline Phosphatase Troponin I Total Protein Albumin Globulin Albumin/Globulin Ratio Triglycerides Cholesterol LDL Cholesterol Direct HDL Cholesterol Blood Type Antibody Screen BBK History Checked - Imaging and Cardiology MRI - head Status: Image reviewed by me, Report reviewed by me (MRI brain is normal with no stroke, or hemorrhage or tumor. ) Assessment & Plan - Assessment and Plan (Free Text) Assessment: 77 yr old woman with period of unresponsiveness yesterday that may have been TIA or seizures. Plan: 1. MRI brain 2. EEG Thank you dr. matthews
--- NOTE | 2018-03-16 19:58 | MRI ---
PROCEDURE: MRI BRAIN WITHOUT CONTRAST HISTORY: cva COMPARISON: Noncontrast head CT 03/15/2018. TECHNIQUE: Multiplanar, multisequence MR images of the brain were obtained without intravenous contrast enhancement. FINDINGS: HEMORRHAGE: None DWI: No evidence of an acute or early subacute infarction. BRAIN PARENCHYMA: Good corticomedullary differentiation is seen. Solitary right and 2 left frontal chronic lacune infarcts are identified. Proportional, diffuse expansion of the ventriculosulcal and cisternal spaces is appreciated with white matter signal changes compatible with diffuse cerebral atrophy and chronic microangiopathy. No suspicious extra-axial fluid collection is identified and the midline brain anatomy appears grossly nonfocal as imaged. There is no mass effect throughout. VENTRICLES: Unremarkable. No hydrocephalus. CRANIUM: Unremarkable. ORBITS: Grossly unremarkable. PARANASAL SINUSES/MASTOIDS: Multifocal sinus mucosal inflammatory changes are identified diffusely with limited sinusitis at the bilateral sphenoid sinuses. Bilateral mastoid effusions identified. VASCULAR SYSTEM: Skull base flow voids intact. 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
[2018-03-17] MEDS: Albuterol-Ipratrop 3 mg / 0.5 (3 ml) UD INH SCH ×4 (01:12→19:40)
[2018-03-17] MEDS: Levothyroxine 125 MCG TAB PO SCH (05:43)
[2018-03-17] MEDS: Ranolazine 500 mg Extended Release Tablets PO SCH ×2 (08:38→16:50)
[2018-03-17] MEDS: Sodium Chloride 0.9% 1,000 ML IV SCH (08:39)
[2018-03-17] MEDS: Clindamycin 600mg/50ml NS 600 MG/50 ML BAG IVPB SCH ×2 (08:40→21:17)
[2018-03-17] MEDS: Insulin Regular 100 units/ml SC SCH ×4 (08:41→23:00)
[2018-03-17] MEDS: levoFLOXacin 250 mg in D5W 250 MG/50 ML BAG IVPB SCH (08:42)
[2018-03-17] MEDS: Lidocaine 5% Patch TD SCH (08:43)
--- NOTE | 2018-03-17 11:00 | CP.PCM.PN ---
Subjective - Date & Time of Evaluation Date of Evaluation: 03/17/18 Time of Evaluation: 10:56 - Subjective Subjective: Ms. Pederson was seen and examined at the bedside. She is awake, able to state place, person but not time. She denies any headache, dizziness, lightheadedness , but claims of abdominal pain since this morning. Her appetite is poor this am , but according to her daughter, she eats food from home.She is able to follow simple commands. MRI of the brain showed age-appropriate related neuro- degenerative changes without acute or subacute brain infarction. There was no untoward events overnight. Objective - Vital Signs/Intake and Output Vital Signs (last 24 hours): Temp Pulse Resp BP Pulse Ox 99.1 F 72 20 131/57 L 96 03/17/18 08:00 03/17/18 08:37 03/17/18 08:00 03/17/18 08:38 03/17/18 08:00 - Medications Medications: Current Medications Albuterol/Ipratropium (Duoneb 3 Mg/0.5 Mg (3 Ml) Ud) 3 ml INH RQ6 [facility] Last Admin: 03/17/18 07:34 Dose: 3 ml Aspirin (Ecotrin) 81 mg PO DAILY [facility] Last Admin: 03/17/18 08:36 Dose: 81 mg Atorvastatin Calcium (Lipitor) 40 mg PO HS [facility] Last Admin: 03/16/18 22:27 Dose: 40 mg Carvedilol (Coreg) 3.125 mg PO DAILY [facility] Last Admin: 03/17/18 08:37 Dose: 3.125 mg Clotrimazole (Lotrimin 1% Cream) 1 applic TOP BID [facility] Last Admin: 03/17/18 08:44 Dose: 1 applic Docusate Sodium (Colace) 100 mg PO DAILY PRN PRN Reason: Constipation Last Admin: 03/13/18 09:24 Dose: 100 mg Ferrous Sulfate (Feosol) 325 mg PO DAILY [facility] Last Admin: 03/17/18 08:36 Dose: 325 mg Furosemide (Lasix) 40 mg PO DAILY [facility] Last Admin: 03/17/18 08:38 Dose: 40 mg Gabapentin (Neurontin) 100 mg PO BID PRN PRN Reason: Leg cramps Heparin Sodium (Porcine) (Heparin) 5,000 units SC Q12 [facility] PRN Reason: Protocol Last Admin: 03/17/18 08:41 Dose: 5,000 units Clindamycin Phosphate (Cleocin In Normal Saline) 600 mg in 50 mls @ 50 mls/hr IVPB Q12 [facility] PRN Reason: Protocol Last Admin: 03/17/18 08:40 Dose: 50 mls/hr Levofloxacin/Dextrose (Levaquin 250mg) 250 mg in 50 mls @ 50 mls/hr IVPB Q48H [facility] Last Admin: 03/17/18 08:42 Dose: 50 mls/hr Sodium Chloride (Sodium Chloride 0.9%) 1,000 mls @ 50 mls/hr IV .Q20H [facility] Stop: 03/17/18 11:36 Last Admin: 03/17/18 08:39 Dose: 50 mls/hr Sodium Chloride (Sodium Chloride 0.45%) 1,000 mls @ 50 mls/hr IV .Q20H [facility] Stop: 03/17/18 12:14 Last Admin: 03/16/18 17:17 Dose: 50 mls/hr Insulin Human Regular (Humulin R) 0 units SC ACCU-CHECK [facility] PRN Reason: Protocol Last Admin: 03/17/18 08:41 Dose: 2 units Levothyroxine Sodium (Synthroid) 125 mcg PO DAILY@0630 [facility] Last Admin: 03/17/18 05:43 Dose: 125 mcg Lidocaine (Lidoderm) 1 ea TD DAILY [facility] Last Admin: 03/17/18 08:43 Dose: 1 ea Loratadine (Claritin) 10 mg PO DAILY [facility] Last Admin: 03/17/18 08:36 Dose: 10 mg Nitroglycerin (Nitrostat Sl Tab) 0.4 mg SL Q5MIN PRN PRN Reason: FOR CHEST, ANIGINAL DISCOMFORT Ranolazine (Ranexa) 1,000 mg PO BID [facility] Last Admin: 03/17/18 08:38 Dose: 1,000 mg - Labs Labs: 03/15/18 14:06 03/16/18 12:52 PT 10.8 Seconds (9.8-13.1) 03/15/18 14:06 INR 1.0 (0.9-1.2) 03/15/18 14:06 APTT 31.3 Seconds (25.6-37.1) 03/15/18 14:06 - Constitutional Appears: No Acute Distress - Head Exam Head Exam: NORMAL INSPECTION - Neurological Exam Neurological Exam: Alert, Awake Neuro motor strength exam: Left Upper Extremity: 3, Right Upper Extremity: 3, Left Lower Extremity: 2/1, Right Lower Extremity: 2/1 Additional comments: awake, alert, follows simple commands, sensation is intact. Assessment and Plan (1) Seizure Assessment & Plan: Case is discussed with Dr. Suh, continue all current medical regimen. Pending EEG, Recommend hydration, increase PO intake, keep head of bed elevated at east 30 degrees. Status: Acute
--- NOTE | 2018-03-17 16:49 | CP.PCM.PN ---
Subjective - Date & Time of Evaluation Date of Evaluation: 03/17/18 Time of Evaluation: 11:30 - Subjective Subjective: F/U Chest pain awake , answer questions slowly , A O x2 , no AD , no SOB , no C/P Objective - Vital Signs/Intake and Output Vital Signs (last 24 hours): Temp Pulse Resp BP Pulse Ox 98.4 F 70 18 127/70 98 03/17/18 16:30 03/17/18 16:30 03/17/18 16:30 03/17/18 16:30 03/17/18 16:30 - Medications Medications: Current Medications Albuterol/Ipratropium (Duoneb 3 Mg/0.5 Mg (3 Ml) Ud) 3 ml INH RQ6 [facility] Last Admin: 03/17/18 13:41 Dose: 3 ml Aspirin (Ecotrin) 81 mg PO DAILY [facility] Last Admin: 03/17/18 08:36 Dose: 81 mg Atorvastatin Calcium (Lipitor) 40 mg PO HS [facility] Last Admin: 03/16/18 22:27 Dose: 40 mg Carvedilol (Coreg) 3.125 mg PO DAILY [facility] Last Admin: 03/17/18 08:37 Dose: 3.125 mg Clotrimazole (Lotrimin 1% Cream) 1 applic TOP BID [facility] Last Admin: 03/17/18 08:44 Dose: 1 applic Docusate Sodium (Colace) 100 mg PO DAILY PRN PRN Reason: Constipation Last Admin: 03/13/18 09:24 Dose: 100 mg Ferrous Sulfate (Feosol) 325 mg PO DAILY [facility] Last Admin: 03/17/18 08:36 Dose: 325 mg Furosemide (Lasix) 40 mg PO DAILY [facility] Last Admin: 03/17/18 08:38 Dose: 40 mg Gabapentin (Neurontin) 100 mg PO BID PRN PRN Reason: Leg cramps Heparin Sodium (Porcine) (Heparin) 5,000 units SC Q12 [facility] PRN Reason: Protocol Last Admin: 03/17/18 08:41 Dose: 5,000 units Clindamycin Phosphate (Cleocin In Normal Saline) 600 mg in 50 mls @ 50 mls/hr IVPB Q12 [facility] PRN Reason: Protocol Last Admin: 03/17/18 08:40 Dose: 50 mls/hr Levofloxacin/Dextrose (Levaquin 250mg) 250 mg in 50 mls @ 50 mls/hr IVPB Q48H [facility] Last Admin: 03/17/18 08:42 Dose: 50 mls/hr Insulin Human Regular (Humulin R) 0 units SC ACCU-CHECK [facility] PRN Reason: Protocol Last Admin: 03/17/18 12:55 Dose: 4 units Levothyroxine Sodium (Synthroid) 125 mcg PO DAILY@0630 [facility] Last Admin: 03/17/18 05:43 Dose: 125 mcg Lidocaine (Lidoderm) 1 ea TD DAILY [facility] Last Admin: 03/17/18 08:43 Dose: 1 ea Loratadine (Claritin) 10 mg PO DAILY [facility] Last Admin: 03/17/18 08:36 Dose: 10 mg Nitroglycerin (Nitrostat Sl Tab) 0.4 mg SL Q5MIN PRN PRN Reason: FOR CHEST, ANIGINAL DISCOMFORT Ranolazine (Ranexa) 1,000 mg PO BID [facility] Last Admin: 03/17/18 08:38 Dose: 1,000 mg - Labs Labs: 03/15/18 14:06 03/16/18 12:52 PT 10.8 Seconds (9.8-13.1) 03/15/18 14:06 INR 1.0 (0.9-1.2) 03/15/18 14:06 APTT 31.3 Seconds (25.6-37.1) 03/15/18 14:06 - Constitutional Appears: Chronically Ill - Head Exam Head Exam: NORMAL INSPECTION - Eye Exam Eye Exam: PERRL - ENT Exam ENT Exam: Normal Exam - Neck Exam Neck Exam: Normal Inspection - Respiratory Exam Respiratory Exam: Chest Wall Tenderness (LSB), Decreased Breath Sounds (at bases), Rales (few crackles at bases) - Cardiovascular Exam Cardiovascular Exam: REGULAR RHYTHM - GI/Abdominal Exam GI & Abdominal Exam: Soft, Normal Bowel Sounds - Extremities Exam Additional comments: LTMA - Back Exam Back Exam: tenderness - Neurological Exam Neurological Exam: Alert (Ox2), Awake Additional comments: follows commands answer quesions slowly , no focal motoe deficit - Psychiatric Exam Psychiatric exam: Normal Affect - Skin Skin Exam: Warm Assessment and Plan (1) Change in mental status Assessment & Plan: resolved Patient is back ed her baseline Status: Acute (2) Seizure Assessment & Plan: new onset , MRI negative for acute infarct ,f/u with Neurologist for treatment Status: Acute (3) Pneumonia Assessment & Plan: on Clinda , Levaquin , DuoNeb Status: Acute (4) Chest pain Assessment & Plan: musculo skeletal Status: Acute (5) Radiating pain Status: Acute (6) COPD (chronic obstructive pulmonary disease) Status: Chronic (7) Chronic lower urinary tract infection Status: Chronic (8) CAD (coronary artery disease) Status: Chronic (9) Chronic low back pain Status: Chronic (10) Diabetes mellitus Status: Chronic (11) Generalized weakness Status: Chronic (12) HTN (hypertension) Status: Chronic (13) Hypercholesterolemia Status: Chronic (14) Hypothyroidism Status: Chronic (15) Osteoarthritis Status: Chronic (16) Hx of CABG Status: Chronic - Assessment and Plan (Free Text) Plan: as per Dx, f/u with Neurologist for Tx of Seizures
[2018-03-18] MEDS: Albuterol-Ipratrop 3 mg / 0.5 (3 ml) UD INH SCH ×4 (01:43→19:33)
[2018-03-18] MEDS: Levothyroxine 125 MCG TAB PO SCH (06:05)
[2018-03-18] MEDS: Insulin Regular 100 units/ml SC SCH ×4 (08:52→22:31)
[2018-03-18] MEDS: Lidocaine 5% Patch TD SCH (08:54)
[2018-03-18] MEDS: Ranolazine 500 mg Extended Release Tablets PO SCH ×2 (08:55→16:40)
[2018-03-18] MEDS: Clindamycin 600mg/50ml NS 600 MG/50 ML BAG IVPB SCH ×2 (08:57→21:07)
--- NOTE | 2018-03-18 10:12 | CP.PCM.PN ---
Subjective - Date & Time of Evaluation Date of Evaluation: 03/18/18 Time of Evaluation: 10:10 - Subjective Subjective: Ms. Pederson was seen and examined at the bedside. She is awake, but unable to state place, person but not time. She denies any headache, dizziness, lightheadedness. Her appetite remains poor able to eat minimally at breakfast, however, able to follow simple commands. There was no untoward events overnight. Objective - Vital Signs/Intake and Output Vital Signs (last 24 hours): Temp Pulse Resp BP Pulse Ox 97.9 F 70 18 150/73 99 03/18/18 08:00 03/18/18 08:56 03/18/18 08:00 03/18/18 08:56 03/18/18 08:00 - Medications Medications: Current Medications Albuterol/Ipratropium (Duoneb 3 Mg/0.5 Mg (3 Ml) Ud) 3 ml INH RQ6 [facility] Last Admin: 03/18/18 07:43 Dose: 3 ml Alprazolam (Xanax) 0.25 mg PO HS PRN PRN Reason: Insomnia Stop: 03/25/18 09:40 Aspirin (Ecotrin) 81 mg PO DAILY [facility] Last Admin: 03/18/18 08:53 Dose: 81 mg Atorvastatin Calcium (Lipitor) 40 mg PO HS [facility] Last Admin: 03/17/18 21:18 Dose: 40 mg Carvedilol (Coreg) 3.125 mg PO DAILY [facility] Last Admin: 03/18/18 08:56 Dose: 3.125 mg Clotrimazole (Lotrimin 1% Cream) 1 applic TOP BID [facility] Last Admin: 03/18/18 08:53 Dose: 1 applic Docusate Sodium (Colace) 100 mg PO DAILY PRN PRN Reason: Constipation Last Admin: 03/13/18 09:24 Dose: 100 mg Ferrous Sulfate (Feosol) 325 mg PO DAILY [facility] Last Admin: 03/18/18 08:56 Dose: 325 mg Furosemide (Lasix) 40 mg PO DAILY [facility] Last Admin: 03/18/18 08:55 Dose: 40 mg Gabapentin (Neurontin) 100 mg PO BID PRN PRN Reason: Leg cramps Heparin Sodium (Porcine) (Heparin) 5,000 units SC Q12 [facility] PRN Reason: Protocol Last Admin: 06/22/18 08:51 Dose: 5,000 units Clindamycin Phosphate (Cleocin In Normal Saline) 600 mg in 50 mls @ 50 mls/hr IVPB Q12 [facility] PRN Reason: Protocol Last Admin: 03/18/18 08:57 Dose: 50 mls/hr Levofloxacin/Dextrose (Levaquin 250mg) 250 mg in 50 mls @ 50 mls/hr IVPB Q48H [facility] Last Admin: 03/17/18 08:42 Dose: 50 mls/hr Insulin Human Regular (Humulin R) 0 units SC ACCU-CHECK [facility] PRN Reason: Protocol Last Admin: 03/18/18 08:52 Dose: 2 units Levothyroxine Sodium (Synthroid) 125 mcg PO DAILY@0630 [facility] Last Admin: 03/18/18 06:05 Dose: 125 mcg Lidocaine (Lidoderm) 1 ea TD DAILY [facility] Last Admin: 03/18/18 08:54 Dose: 1 ea Loratadine (Claritin) 10 mg PO DAILY [facility] Last Admin: 03/18/18 08:57 Dose: 10 mg Nitroglycerin (Nitrostat Sl Tab) 0.4 mg SL Q5MIN PRN PRN Reason: FOR CHEST, ANIGINAL DISCOMFORT Ranolazine (Ranexa) 1,000 mg PO BID [facility] Last Admin: 03/18/18 08:55 Dose: 1,000 mg - Labs Labs: 03/15/18 14:06 03/16/18 12:52 PT 10.8 Seconds (9.8-13.1) 03/15/18 14:06 INR 1.0 (0.9-1.2) 03/15/18 14:06 APTT 31.3 Seconds (25.6-37.1) 03/15/18 14:06 - Constitutional Appears: No Acute Distress - Head Exam Head Exam: NORMAL INSPECTION - Neurological Exam Neurological Exam: Awake Neuro motor strength exam: Left Upper Extremity: 4, Right Upper Extremity: 4, Left Lower Extremity: 3, Right Lower Extremity: 3 Additional comments: awake, with episode of confusion, follows commands, sensation is intact. Assessment and Plan (1) Seizure Assessment & Plan: Case is discussed with Dr. Suh, continue all current medical regimen. Pending EEG, Recommend hydration, increase PO intake, keep head of bed elevated at east 30 degrees. Status: Acute
[2018-03-18 12:38] LABS: HEMOGLOBIN 9.9 g/dL (12.0-16.0); MEAN CELL VOLUME 95.8 fl (81.0-99.0); MEAN CORPUSCULAR HEMOGLOBIN 32.9 pg (27.0-31.0); MEAN CORPUSCULAR HGB CONC 34.3 g/dL (33.0-37.0); RBC 3.01 Mil/uL (3.80-5.20); RED CELL DISTRIBUTION WIDTH 13.3 % (11.5-14.5); WHITE BLOOD COUNT 5.8 K/uL (4.8-10.8)
--- NOTE | 2018-03-18 13:24 | RAD ---
HISTORY: pneumonia COMPARISON: Chest radiograph dated 03/15/2018 TECHNIQUE: Chest PA and lateral FINDINGS: LUNGS: Stable chronic prominence of the bilateral interstitial markings. Similar bibasilar atelectasis/infiltrates. PLEURA: No significant pleural effusion identified. No pneumothorax apparent. CARDIOVASCULAR: Prior sternotomy with sternal wires and surgical clips redemonstrated. Atherosclerotic aortic calcifications. Cardiomediastinal silhouette stably enlarged. OSSEOUS STRUCTURES: Unchanged. VISUALIZED UPPER ABDOMEN: Right upper quadrant surgical clips. OTHER FINDINGS: None. IMPRESSION: Similar bibasilar atelectasis/infiltrates.
--- NOTE | 2018-03-18 15:29 | CP.PCM.PN ---
Objective - Vital Signs/Intake and Output Vital Signs (last 24 hours): Temp Pulse Resp BP Pulse Ox 97.6 F 75 18 153/74 H 100 03/18/18 12:15 03/18/18 12:15 03/18/18 12:15 03/18/18 12:15 03/18/18 12:15 - Medications Medications: Current Medications Albuterol/Ipratropium (Duoneb 3 Mg/0.5 Mg (3 Ml) Ud) 3 ml INH RQ6 [facility] Last Admin: 03/18/18 13:36 Dose: 3 ml Alprazolam (Xanax) 0.25 mg PO HS PRN PRN Reason: Insomnia Stop: 03/25/18 09:40 Aspirin (Ecotrin) 81 mg PO DAILY [facility] Last Admin: 03/18/18 08:53 Dose: 81 mg Atorvastatin Calcium (Lipitor) 40 mg PO HS [facility] Last Admin: 03/17/18 21:18 Dose: 40 mg Carvedilol (Coreg) 3.125 mg PO DAILY [facility] Last Admin: 03/18/18 08:56 Dose: 3.125 mg Clotrimazole (Lotrimin 1% Cream) 1 applic TOP BID [facility] Last Admin: 03/18/18 08:53 Dose: 1 applic Docusate Sodium (Colace) 100 mg PO DAILY PRN PRN Reason: Constipation Last Admin: 03/13/18 09:24 Dose: 100 mg Ferrous Sulfate (Feosol) 325 mg PO DAILY [facility] Last Admin: 03/18/18 08:56 Dose: 325 mg Furosemide (Lasix) 40 mg PO DAILY [facility] Last Admin: 03/18/18 08:55 Dose: 40 mg Gabapentin (Neurontin) 100 mg PO BID PRN PRN Reason: Leg cramps Heparin Sodium (Porcine) (Heparin) 5,000 units SC Q12 [facility] PRN Reason: Protocol Last Admin: 03/18/18 08:51 Dose: 5,000 units Clindamycin Phosphate (Cleocin In Normal Saline) 600 mg in 50 mls @ 50 mls/hr IVPB Q12 [facility] PRN Reason: Protocol Last Admin: 03/18/18 08:57 Dose: 50 mls/hr Levofloxacin/Dextrose (Levaquin 250mg) 250 mg in 50 mls @ 50 mls/hr IVPB Q48H [facility] Last Admin: 03/17/18 08:42 Dose: 50 mls/hr Insulin Human Regular (Humulin R) 0 units SC ACCU-CHECK [facility] PRN Reason: Protocol Last Admin: 03/18/18 12:13 Dose: Not Given Levothyroxine Sodium (Synthroid) 125 mcg PO DAILY@0630 [facility] Last Admin: 03/18/18 06:05 Dose: 125 mcg Lidocaine (Lidoderm) 1 ea TD DAILY [facility] Last Admin: 03/18/18 08:54 Dose: 1 ea Loratadine (Claritin) 10 mg PO DAILY [facility] Last Admin: 03/18/18 08:57 Dose: 10 mg Nitroglycerin (Nitrostat Sl Tab) 0.4 mg SL Q5MIN PRN PRN Reason: FOR CHEST, ANIGINAL DISCOMFORT Ranolazine (Ranexa) 1,000 mg PO BID [facility] Last Admin: 03/18/18 08:55 Dose: 1,000 mg - Labs Labs: 03/18/18 12:34 03/18/18 12:34 PT 10.8 Seconds (9.8-13.1) 03/15/18 14:06 INR 1.0 (0.9-1.2) 03/15/18 14:06 APTT 31.3 Seconds (25.6-37.1) 03/15/18 14:06 Assessment and Plan (1) Chest pain Status: Acute (2) Diabetes mellitus with hyperglycemia Status: Acute (3) PVD (peripheral vascular disease) Status: Acute (4) HTN (hypertension) Status: Chronic (5) Hypercholesterolemia Status: Chronic (6) Hypothyroidism Status: Chronic (7) Hx of CABG Status: Acute
--- NOTE | 2018-03-18 18:54 | CP.PCM.PN ---
Subjective - Date & Time of Evaluation Date of Evaluation: 03/18/18 Time of Evaluation: 11:30 - Subjective Subjective: F/U Chest pain no AD, no SOB , no Cough , no C/P Objective - Vital Signs/Intake and Output Vital Signs (last 24 hours): Temp Pulse Resp BP Pulse Ox 98 F 73 18 124/72 97 03/18/18 16:33 03/18/18 16:33 03/18/18 16:33 03/18/18 16:33 03/18/18 16:33 Intake and Output: 03/18/18 03/18/18 06:59 18:59 Intake Total 820 Balance 820 - Medications Medications: Current Medications Albuterol/Ipratropium (Duoneb 3 Mg/0.5 Mg (3 Ml) Ud) 3 ml INH RQ6 [facility] Last Admin: 03/18/18 13:36 Dose: 3 ml Alprazolam (Xanax) 0.25 mg PO HS PRN PRN Reason: Insomnia Stop: 03/25/18 09:40 Aspirin (Ecotrin) 81 mg PO DAILY [facility] Last Admin: 03/18/18 08:53 Dose: 81 mg Atorvastatin Calcium (Lipitor) 40 mg PO HS [facility] Last Admin: 03/17/18 21:18 Dose: 40 mg Carvedilol (Coreg) 3.125 mg PO DAILY [facility] Last Admin: 03/18/18 08:56 Dose: 3.125 mg Clotrimazole (Lotrimin 1% Cream) 1 applic TOP BID [facility] Last Admin: 03/18/18 16:39 Dose: 1 applic Docusate Sodium (Colace) 100 mg PO DAILY PRN PRN Reason: Constipation Last Admin: 03/13/18 09:24 Dose: 100 mg Ferrous Sulfate (Feosol) 325 mg PO DAILY [facility] Last Admin: 03/18/18 08:56 Dose: 325 mg Furosemide (Lasix) 40 mg PO DAILY [facility] Last Admin: 03/18/18 08:55 Dose: 40 mg Gabapentin (Neurontin) 100 mg PO BID PRN PRN Reason: Leg cramps Heparin Sodium (Porcine) (Heparin) 5,000 units SC Q12 [facility] PRN Reason: Protocol Last Admin: 03/18/18 08:51 Dose: 5,000 units Clindamycin Phosphate (Cleocin In Normal Saline) 600 mg in 50 mls @ 50 mls/hr IVPB Q12 [facility] PRN Reason: Protocol Last Admin: 03/18/18 08:57 Dose: 50 mls/hr Levofloxacin/Dextrose (Levaquin 250mg) 250 mg in 50 mls @ 50 mls/hr IVPB Q48H [facility] Last Admin: 03/17/18 08:42 Dose: 50 mls/hr Insulin Human Regular (Humulin R) 0 units SC ACCU-CHECK [facility] PRN Reason: Protocol Last Admin: 03/18/18 16:39 Dose: 4 units Levothyroxine Sodium (Synthroid) 125 mcg PO DAILY@0630 [facility] Last Admin: 03/18/18 06:05 Dose: 125 mcg Lidocaine (Lidoderm) 1 ea TD DAILY [facility] Last Admin: 03/18/18 08:54 Dose: 1 ea Loratadine (Claritin) 10 mg PO DAILY [facility] Last Admin: 03/18/18 08:57 Dose: 10 mg Nitroglycerin (Nitrostat Sl Tab) 0.4 mg SL Q5MIN PRN PRN Reason: FOR CHEST, ANIGINAL DISCOMFORT Ranolazine (Ranexa) 1,000 mg PO BID [facility] Last Admin: 03/18/18 16:40 Dose: 1,000 mg - Labs Labs: 03/18/18 12:34 03/18/18 12:34 PT 10.8 Seconds (9.8-13.1) 03/15/18 14:06 INR 1.0 (0.9-1.2) 03/15/18 14:06 APTT 31.3 Seconds (25.6-37.1) 03/15/18 14:06 - Constitutional Appears: Chronically Ill - Head Exam Head Exam: NORMOCEPHALIC - ENT Exam ENT Exam: Normal Exam - Neck Exam Neck Exam: Normal Inspection - Respiratory Exam Respiratory Exam: Decreased Breath Sounds (at bases) Additional comments: LSB tenderness - Cardiovascular Exam Cardiovascular Exam: REGULAR RHYTHM - GI/Abdominal Exam GI & Abdominal Exam: Soft, Normal Bowel Sounds - Extremities Exam Extremities Exam: Tenderness (L shoulder) Additional comments: L TMA - Back Exam Back Exam: tenderness - Neurological Exam Neurological Exam: Alert (alert , O x 2) Additional comments: generalized weakness , no focal motor deficit - Psychiatric Exam Psychiatric exam: Anxious - Skin Skin Exam: Warm Assessment and Plan (1) Change in mental status Status: Acute (2) Pneumonia Status: Acute (3) Chest pain Status: Acute (4) Radiating pain Status: Acute (5) COPD (chronic obstructive pulmonary disease) Status: Chronic (6) Chronic lower urinary tract infection Status: Chronic (7) CAD (coronary artery disease) Status: Chronic (8) Chronic low back pain Status: Chronic (9) Diabetes mellitus Status: Chronic (10) Generalized weakness Status: Chronic (11) HTN (hypertension) Status: Chronic (12) Hypercholesterolemia Status: Chronic (13) Hypothyroidism Status: Chronic (14) Osteoarthritis Status: Chronic (15) Hx of CABG Status: Chronic (16) Seizure Assessment & Plan: pending EEG report Status: Acute - Assessment and Plan (Free Text) Plan: CXR no Change , PNA improving slowly , continue Lavaquin , Cleocin , Duoneb, Chest pain musculo skeletal , non cardiac ,Cardiac f/u appreciated , change in mental status resolved , no CVA , Seizure Dx pending EEG
[2018-03-19] MEDS: Albuterol-Ipratrop 3 mg / 0.5 (3 ml) UD INH SCH ×4 (01:05→19:39)
[2018-03-19] MEDS: Levothyroxine 125 MCG TAB PO SCH (06:32)
[2018-03-19] MEDS: Ranolazine 500 mg Extended Release Tablets PO SCH ×2 (08:47→17:54)
[2018-03-19] MEDS: Lidocaine 5% Patch TD SCH (08:48)
[2018-03-19] MEDS: Insulin Regular 100 units/ml SC SCH ×4 (08:49→23:56)
[2018-03-19] MEDS: levoFLOXacin 250 mg in D5W 250 MG/50 ML BAG IVPB SCH (08:50)
[2018-03-19] MEDS: Clindamycin 600mg/50ml NS 600 MG/50 ML BAG IVPB SCH ×2 (08:50→21:23)
--- NOTE | 2018-03-19 12:53 | CP.PCM.PN ---
Subjective - Date & Time of Evaluation Date of Evaluation: 03/19/18 Time of Evaluation: 09:30 - Subjective Subjective: Afebrile still confused according to family - not her baseline Pt denies Cp has sl cough no abd pain Objective - Vital Signs/Intake and Output Vital Signs (last 24 hours): Temp Pulse Resp BP Pulse Ox 98.4 F 73 20 164/73 H 96 03/19/18 12:19 03/19/18 12:19 03/19/18 12:19 03/19/18 12:19 03/19/18 12:19 - Medications Medications: Current Medications Albuterol/Ipratropium (Duoneb 3 Mg/0.5 Mg (3 Ml) Ud) 3 ml INH RQ6 [facility] Last Admin: 03/19/18 08:12 Dose: 3 ml Alprazolam (Xanax) 0.25 mg PO HS PRN PRN Reason: Insomnia Stop: 03/25/18 09:40 Aspirin (Ecotrin) 81 mg PO DAILY [facility] Last Admin: 03/19/18 08:47 Dose: 81 mg Atorvastatin Calcium (Lipitor) 40 mg PO HS [facility] Last Admin: 03/18/18 21:08 Dose: 40 mg Carvedilol (Coreg) 3.125 mg PO Q12 [facility] Clotrimazole (Lotrimin 1% Cream) 1 applic TOP BID [facility] Last Admin: 03/19/18 08:48 Dose: 1 applic Docusate Sodium (Colace) 100 mg PO DAILY PRN PRN Reason: Constipation Last Admin: 03/13/18 09:24 Dose: 100 mg Ferrous Sulfate (Feosol) 325 mg PO DAILY [facility] Last Admin: 03/19/18 08:51 Dose: 325 mg Furosemide (Lasix) 40 mg PO DAILY [facility] Last Admin: 03/19/18 08:47 Dose: 40 mg Gabapentin (Neurontin) 100 mg PO BID PRN PRN Reason: Leg cramps Heparin Sodium (Porcine) (Heparin) 5,000 units SC Q12 [facility] PRN Reason: Protocol Last Admin: 03/19/18 08:51 Dose: 5,000 units Clindamycin Phosphate (Cleocin In Normal Saline) 600 mg in 50 mls @ 50 mls/hr IVPB Q12 [facility] PRN Reason: Protocol Last Admin: 03/19/18 08:50 Dose: 50 mls/hr Levofloxacin/Dextrose (Levaquin 250mg) 250 mg in 50 mls @ 50 mls/hr IVPB Q48H [facility] Last Admin: 03/19/18 08:50 Dose: 50 mls/hr Insulin Human Regular (Humulin R) 0 units SC ACCU-CHECK [facility] PRN Reason: Protocol Last Admin: 03/19/18 08:49 Dose: 6 units Levothyroxine Sodium (Synthroid) 125 mcg PO DAILY@0630 [facility] Last Admin: 03/19/18 06:32 Dose: 125 mcg Lidocaine (Lidoderm) 1 ea TD DAILY [facility] Last Admin: 03/19/18 08:48 Dose: Not Given Loratadine (Claritin) 10 mg PO DAILY [facility] Last Admin: 03/19/18 08:47 Dose: 10 mg Nitroglycerin (Nitrostat Sl Tab) 0.4 mg SL Q5MIN PRN PRN Reason: FOR CHEST, ANIGINAL DISCOMFORT Ranolazine (Ranexa) 1,000 mg PO BID [facility] Last Admin: 03/19/18 08:47 Dose: 1,000 mg - Labs Labs: 03/18/18 12:34 03/18/18 12:34 PT 10.8 Seconds (9.8-13.1) 03/15/18 14:06 INR 1.0 (0.9-1.2) 03/15/18 14:06 APTT 31.3 Seconds (25.6-37.1) 03/15/18 14:06 - Constitutional Appears: No Acute Distress, Chronically Ill - Head Exam Head Exam: NORMAL INSPECTION, NORMOCEPHALIC - Eye Exam Eye Exam: EOMI, Normal appearance Additional comments: left eye poor vision - ENT Exam ENT Exam: Mucous Membranes Moist, Normal External Ear Exam - Neck Exam Neck Exam: Full ROM. absent: Meningismus - Respiratory Exam Respiratory Exam: Rhonchi, NORMAL BREATHING PATTERN. absent: Respiratory Distress - Cardiovascular Exam Cardiovascular Exam: REGULAR RHYTHM, +S1, +S2 - GI/Abdominal Exam GI & Abdominal Exam: Soft, Normal Bowel Sounds. absent: Tenderness - Extremities Exam Extremities Exam: Normal Capillary Refill, Pedal Edema. absent: Full ROM - Back Exam Back Exam: absent: CVA tenderness (L), CVA tenderness (R) - Neurological Exam Neurological Exam: Alert, Awake Additional comments: oriented to person - Psychiatric Exam Psychiatric exam: Flat Affect - Skin Skin Exam: Dry, Normal Color, Warm Assessment and Plan (1) Pneumonia Status: Acute (2) Change in mental status Status: Acute (3) CVA (cerebral vascular accident) Status: Chronic (4) CAD (coronary artery disease) Status: Chronic (5) Hypothyroidism Status: Chronic (6) Acute kidney injury superimposed on chronic kidney disease Status: Acute (7) COPD (chronic obstructive pulmonary disease) Status: Chronic - Assessment and Plan (Free Text) Assessment: 77 y/o lady with hx of CAD s/p CABG, COPD, CHF, CVA, Hypothyroidism, DM, CKD stage III, was brought in bec of chest pain and AMS - found to have Pneumonia. (1) Pneumonia Status: Acute cont Cleocin and Levaquin (2) Change in mental status ? Metabolic Encephalopathy Status: Acute Neurology consulted (3) CVA (cerebral vascular accident) Status: Chronic Acute CVA ruled out - MRI : neg acute cont ASA, Statin Neurology consulted (4) CAD (coronary artery disease) Hx of CABG ACS ruled out Status: Chronic Trop x 3 negative Cardio consulted cont ASA, Statin, BB , and Ranexa (5) Hypothyroidism Status: Chronic cont Levothyroxine (6) Acute kidney injury superimposed on chronic kidney disease Stage III Status: Acute (7) COPD (chronic obstructive pulmonary disease). chronic Status: Chronic Duoneb prn 8. DM type II with Hyperglycemia Accucheck ACHS start low dose Glucotrol 9. DVT proph Heparin
[2018-03-20] MEDS: Albuterol-Ipratrop 3 mg / 0.5 (3 ml) UD INH SCH ×4 (01:14→19:16)
[2018-03-20] MEDS: Levothyroxine 125 MCG TAB PO SCH (05:59)
[2018-03-20] MEDS: Insulin Regular 100 units/ml SC SCH ×4 (06:00→22:03)
[2018-03-20 07:24] LABS: HEMOGLOBIN 9.9 g/dL (12.0-16.0); MEAN CELL VOLUME 95.7 fl (81.0-99.0); MEAN CORPUSCULAR HGB CONC 34.5 g/dL (33.0-37.0); RED CELL DISTRIBUTION WIDTH 13.5 % (11.5-14.5); WHITE BLOOD COUNT 5.4 K/uL (4.8-10.8)
[2018-03-20 07:25] LABS: CALCIUM 8.7 mg/dL (8.4-10.2)
--- NOTE | 2018-03-20 08:15 | CP.PCM.PN ---
Subjective - Date & Time of Evaluation Date of Evaluation: 03/20/18 Time of Evaluation: 08:15 - Subjective Subjective: Ms. Pederson was seen and examined at the bedside. She is asleep. According to patient family who stays at the bedside at all times, the patient has been unable to sleeep and was confused last night. The family member is requesting to let patient sleep this am, to help with her confusion. There was no untoward events overnight. Objective - Vital Signs/Intake and Output Vital Signs (last 24 hours): Temp Pulse Resp BP Pulse Ox 98.4 F 67 18 146/68 93 L 03/20/18 08:11 03/20/18 08:11 03/20/18 08:11 03/20/18 08:11 03/20/18 08:11 - Medications Medications: Current Medications Albuterol/Ipratropium (Duoneb 3 Mg/0.5 Mg (3 Ml) Ud) 3 ml INH RQ6 [facility] Last Admin: 03/20/18 07:39 Dose: Not Given Alprazolam (Xanax) 0.25 mg PO HS PRN PRN Reason: Insomnia Stop: 03/25/18 09:40 Last Admin: 03/19/18 21:47 Dose: 0.25 mg Aspirin (Ecotrin) 81 mg PO DAILY [facility] Last Admin: 03/19/18 08:47 Dose: 81 mg Atorvastatin Calcium (Lipitor) 40 mg PO HS [facility] Last Admin: 03/19/18 21:24 Dose: 40 mg Carvedilol (Coreg) 3.125 mg PO Q12 [facility] Last Admin: 03/19/18 21:24 Dose: 3.125 mg Clotrimazole (Lotrimin 1% Cream) 1 applic TOP BID [facility] Last Admin: 03/19/18 17:53 Dose: Not Given Docusate Sodium (Colace) 100 mg PO DAILY PRN PRN Reason: Constipation Last Admin: 03/13/18 09:24 Dose: 100 mg Ferrous Sulfate (Feosol) 325 mg PO DAILY [facility] Last Admin: 03/19/18 08:51 Dose: 325 mg Furosemide (Lasix) 40 mg PO DAILY [facility] Last Admin: 03/19/18 08:47 Dose: 40 mg Gabapentin (Neurontin) 100 mg PO BID PRN PRN Reason: Leg cramps Glipizide (Glucotrol) 2.5 mg PO ACB [facility] Heparin Sodium (Porcine) (Heparin) 5,000 units SC Q12 [facility] PRN Reason: Protocol Last Admin: 03/19/18 21:24 Dose: 5,000 units Hydralazine HCl (Apresoline) 10 mg PO TID [facility] Last Admin: 03/19/18 17:46 Dose: 10 mg Clindamycin Phosphate (Cleocin In Normal Saline) 600 mg in 50 mls @ 50 mls/hr IVPB Q12 [facility] PRN Reason: Protocol Last Admin: 03/19/18 21:23 Dose: 50 mls/hr Levofloxacin/Dextrose (Levaquin 250mg) 250 mg in 50 mls @ 50 mls/hr IVPB Q48H [facility] Last Admin: 03/19/18 08:50 Dose: 50 mls/hr Insulin Human Regular (Humulin R) 0 units SC ACCU-CHECK [facility] PRN Reason: Protocol Last Admin: 03/20/18 06:00 Dose: Not Given Levothyroxine Sodium (Synthroid) 125 mcg PO DAILY@0630 [facility] Last Admin: 03/20/18 05:59 Dose: 125 mcg Lidocaine (Lidoderm) 1 ea TD DAILY [facility] Last Admin: 03/19/18 08:48 Dose: Not Given Loratadine (Claritin) 10 mg PO DAILY [facility] Last Admin: 03/19/18 08:47 Dose: 10 mg Nitroglycerin (Nitrostat Sl Tab) 0.4 mg SL Q5MIN PRN PRN Reason: FOR CHEST, ANIGINAL DISCOMFORT Ranolazine (Ranexa) 1,000 mg PO BID [facility] Last Admin: 03/19/18 17:54 Dose: 1,000 mg - Labs Labs: 03/20/18 07:00 03/20/18 07:00 PT 10.8 Seconds (9.8-13.1) 03/15/18 14:06 INR 1.0 (0.9-1.2) 03/15/18 14:06 APTT 31.3 Seconds (25.6-37.1) 03/15/18 14:06 - Constitutional Appears: No Acute Distress - Head Exam Head Exam: NORMAL INSPECTION - Neurological Exam Additional comments: unable to do ROS due to patient sleeping and family member request to let patient sleep. Assessment and Plan (1) Seizure Assessment & Plan: Case discussed with Dr. Suh, continue all current medical regimen. Pending EEG results but will start the patient on depakote 500 mg PO Q 12 to alleviate some confusion and if seizure is present. Recommend hydration, keep head of bed elevated at least 30 degrees, treat any lectrolyte abnormalities. Status: Acute
[2018-03-20] MEDS: Ranolazine 500 mg Extended Release Tablets PO SCH ×2 (08:27→16:21)
[2018-03-20] MEDS: Lidocaine 5% Patch TD SCH (08:29)
[2018-03-20] MEDS: Clindamycin 600mg/50ml NS 600 MG/50 ML BAG IVPB SCH ×2 (08:34→21:19)
[2018-03-20] MEDS ORDERED: Valproic Acid 250 mg/5 ml Oral Syrup (60 ml) PO SCH (09:00)
--- NOTE | 2018-03-20 10:20 | CP.PCM.PN ---
Subjective - Date & Time of Evaluation Date of Evaluation: 03/20/18 Time of Evaluation: 09:45 - Subjective Subjective: Afebrile still confused according to family - not her baseline Insomnia + Cough Pt denies Cp no abd pain Family requesting that she not be given more than 3 units of Insulin bec at home she gets Hypoglycemia when she gets more than 3 units- I will change ZRegular Insulin to Moderate protocol Objective - Vital Signs/Intake and Output Vital Signs (last 24 hours): Temp Pulse Resp BP Pulse Ox 98.4 F 67 18 146/68 93 L 03/20/18 08:11 03/20/18 08:28 03/20/18 08:11 03/20/18 08:28 03/20/18 08:11 - Medications Medications: Current Medications Albuterol/Ipratropium (Duoneb 3 Mg/0.5 Mg (3 Ml) Ud) 3 ml INH RQ6 [facility] Last Admin: 03/20/18 07:39 Dose: Not Given Alprazolam (Xanax) 0.25 mg PO HS PRN PRN Reason: Insomnia Stop: 03/25/18 09:40 Last Admin: 03/19/18 21:47 Dose: 0.25 mg Aspirin (Ecotrin) 81 mg PO DAILY [facility] Last Admin: 03/20/18 08:28 Dose: 81 mg Atorvastatin Calcium (Lipitor) 40 mg PO HS [facility] Last Admin: 03/19/18 21:24 Dose: 40 mg Carvedilol (Coreg) 3.125 mg PO Q12 [facility] Last Admin: 03/20/18 08:28 Dose: 3.125 mg Clotrimazole (Lotrimin 1% Cream) 1 applic TOP BID [facility] Last Admin: 03/20/18 08:27 Dose: 1 applic Docusate Sodium (Colace) 100 mg PO DAILY PRN PRN Reason: Constipation Last Admin: 03/13/18 09:24 Dose: 100 mg Ferrous Sulfate (Feosol) 325 mg PO DAILY [facility] Last Admin: 03/20/18 08:27 Dose: 325 mg Furosemide (Lasix) 40 mg PO DAILY [facility] Last Admin: 03/20/18 08:28 Dose: 40 mg Gabapentin (Neurontin) 100 mg PO BID PRN PRN Reason: Leg cramps Glipizide (Glucotrol) 2.5 mg PO ACB [facility] Last Admin: 03/20/18 08:29 Dose: 2.5 mg Heparin Sodium (Porcine) (Heparin) 5,000 units SC Q12 [facility] PRN Reason: Protocol Last Admin: 03/20/18 08:27 Dose: 5,000 units Hydralazine HCl (Apresoline) 10 mg PO TID [facility] Last Admin: 03/20/18 08:26 Dose: 10 mg Clindamycin Phosphate (Cleocin In Normal Saline) 600 mg in 50 mls @ 50 mls/hr IVPB Q12 [facility] PRN Reason: Protocol Last Admin: 03/20/18 08:34 Dose: 50 mls/hr Levofloxacin/Dextrose (Levaquin 250mg) 250 mg in 50 mls @ 50 mls/hr IVPB Q48H [facility] Last Admin: 03/19/18 08:50 Dose: 50 mls/hr Insulin Human Regular (Humulin R) 0 units SC ACCU-CHECK [facility] PRN Reason: Protocol Last Admin: 03/20/18 06:00 Dose: Not Given Levothyroxine Sodium (Synthroid) 125 mcg PO DAILY@0630 [facility] Last Admin: 03/20/18 05:59 Dose: 125 mcg Lidocaine (Lidoderm) 1 ea TD DAILY [facility] Last Admin: 03/20/18 08:29 Dose: 1 ea Loratadine (Claritin) 10 mg PO DAILY [facility] Last Admin: 03/20/18 08:29 Dose: 10 mg Nitroglycerin (Nitrostat Sl Tab) 0.4 mg SL Q5MIN PRN PRN Reason: FOR CHEST, ANIGINAL DISCOMFORT Ranolazine (Ranexa) 1,000 mg PO BID [facility] Last Admin: 03/20/18 08:27 Dose: 1,000 mg Valproate Sodium (Depakene Oral Syrup) 500 mg PO Q12 [facility] - Labs Labs: 03/20/18 07:00 03/20/18 07:00 PT 10.8 Seconds (9.8-13.1) 03/15/18 14:06 INR 1.0 (0.9-1.2) 03/15/18 14:06 APTT 31.3 Seconds (25.6-37.1) 03/15/18 14:06 - Constitutional Appears: No Acute Distress, Chronically Ill - Head Exam Head Exam: NORMAL INSPECTION, NORMOCEPHALIC - Eye Exam Eye Exam: EOMI, Normal appearance Additional comments: left eye poor vision - ENT Exam ENT Exam: Mucous Membranes Moist, Normal External Ear Exam - Neck Exam Neck Exam: Full ROM. absent: Meningismus - Respiratory Exam Respiratory Exam: Rhonchi, NORMAL BREATHING PATTERN. absent: Respiratory Distress - Cardiovascular Exam Cardiovascular Exam: REGULAR RHYTHM, +S1, +S2 - GI/Abdominal Exam GI & Abdominal Exam: Soft, Normal Bowel Sounds. absent: Tenderness - Extremities Exam Extremities Exam: Normal Capillary Refill, Pedal Edema. absent: Full ROM left TMA - Back Exam Back Exam: absent: CVA tenderness (L), CVA tenderness (R) - Neurological Exam Neurological Exam: Alert, Awake Additional comments: oriented to person and place MMT: R>L - Psychiatric Exam Psychiatric exam: Flat Affect - Skin Skin Exam: Dry, Normal Color, Warm Assessment and Plan (1) Pneumonia Status: Acute (2) Change in mental status Status: Acute (3) CVA (cerebral vascular accident) Status: Chronic (4) CAD (coronary artery disease) Status: Chronic (5) Hypothyroidism Status: Chronic (6) Acute kidney injury superimposed on chronic kidney disease Status: Acute (7) COPD (chronic obstructive pulmonary disease) Status: Chronic - Assessment and Plan (Free Text) Assessment: 77 y/o lady with hx of CAD s/p CABG, COPD, CHF, CVA, Hypothyroidism, DM, CKD stage III, was brought in bec of chest pain and AMS - found to have Pneumonia. (1) Pneumonia Status: Acute cont Cleocin and Levaquin rpt CXR in am (2) Change in mental status ? Metabolic Encephalopathy Status: Acute Neurology consulted Depakot started EEG pending (3) Hx CVA (cerebral vascular accident) , Acute CVA ruled out Status: Chronic Acute CVA ruled out - MRI : neg acute cont ASA, Statin Neurology consulted (4) CAD (coronary artery disease) Hx of CABG ACS ruled out Status: Chronic Trop x 3 negative Cardio consulted cont ASA, Statin, BB , and Ranexa (5) Hypothyroidism Status: Chronic cont Levothyroxine (6) Acute kidney injury superimposed on chronic kidney disease Stage III Status: Acute monitor closely Crea (7) COPD (chronic obstructive pulmonary disease),chronic Status: Chronic Duoneb prn 8. DM type II with Hyperglycemia Accucheck ACHS start low dose Glucotrol accucheck - change to Moderate coverage- family refuses tight control 9. DVT proph Heparin
[2018-03-20] MEDS: Valproic Acid 250 mg/5 ml UD Cup PO SCH ×3 (10:27→21:27)
[2018-03-21] MEDS: Albuterol-Ipratrop 3 mg / 0.5 (3 ml) UD INH SCH ×4 (01:00→19:27)
[2018-03-21] MEDS: Levothyroxine 125 MCG TAB PO SCH (06:46)
[2018-03-21] MEDS: Insulin Regular 100 units/ml SC SCH ×4 (06:47→23:36)
[2018-03-21] MEDS: Ranolazine 500 mg Extended Release Tablets PO SCH ×2 (08:51→18:18)
[2018-03-21] MEDS: Lidocaine 5% Patch TD SCH (08:52)
[2018-03-21] MEDS: Valproic Acid 250 mg/5 ml UD Cup PO SCH ×2 (08:54→23:35)
[2018-03-21] MEDS: levoFLOXacin 250 mg in D5W 250 MG/50 ML BAG IVPB SCH (08:56)
[2018-03-21] MEDS: Clindamycin 600mg/50ml NS 600 MG/50 ML BAG IVPB SCH ×2 (08:56→23:35)
--- NOTE | 2018-03-21 09:47 | CP.PCM.PN ---
Subjective - Date & Time of Evaluation Date of Evaluation: 03/21/18 Time of Evaluation: 09:45 - Subjective Subjective: Ms. Bg Crouch was seen and examined at the bedside. She is more awake, denies any headache, blurred vision, follows simple commands such as raising her extremities with her lower extremities weaker. There was no untoward events overnight. Objective - Vital Signs/Intake and Output Vital Signs (last 24 hours): Temp Pulse Resp BP Pulse Ox 98.2 F 70 18 147/61 100 03/21/18 07:57 03/21/18 08:53 03/21/18 07:57 03/21/18 08:53 03/21/18 07:57 - Medications Medications: Current Medications Albuterol/Ipratropium (Duoneb 3 Mg/0.5 Mg (3 Ml) Ud) 3 ml INH RQ6 [facility] Last Admin: 03/21/18 07:33 Dose: 3 ml Aspirin (Ecotrin) 81 mg PO DAILY [facility] Last Admin: 03/21/18 08:50 Dose: 81 mg Atorvastatin Calcium (Lipitor) 40 mg PO HS [facility] Last Admin: 03/20/18 21:19 Dose: 40 mg Carvedilol (Coreg) 3.125 mg PO Q12 [facility] Last Admin: 03/21/18 08:53 Dose: 3.125 mg Clotrimazole (Lotrimin 1% Cream) 1 applic TOP BID [facility] Last Admin: 03/21/18 08:51 Dose: 1 applic Docusate Sodium (Colace) 100 mg PO DAILY PRN PRN Reason: Constipation Last Admin: 03/13/18 09:24 Dose: 100 mg Ferrous Sulfate (Feosol) 325 mg PO DAILY [facility] Last Admin: 03/21/18 08:51 Dose: 325 mg Furosemide (Lasix) 40 mg PO DAILY [facility] Last Admin: 03/21/18 08:53 Dose: Not Given Gabapentin (Neurontin) 100 mg PO BID PRN PRN Reason: Leg cramps Glipizide (Glucotrol) 2.5 mg PO ACB [facility] Last Admin: 03/21/18 08:47 Dose: Not Given Heparin Sodium (Porcine) (Heparin) 5,000 units SC Q12 [facility] PRN Reason: Protocol Last Admin: 03/21/18 08:53 Dose: 5,000 units Hydralazine HCl (Apresoline) 10 mg PO TID [facility] Last Admin: 03/21/18 08:49 Dose: 10 mg Clindamycin Phosphate (Cleocin In Normal Saline) 600 mg in 50 mls @ 50 mls/hr IVPB Q12 [facility] PRN Reason: Protocol Last Admin: 03/21/18 08:56 Dose: 50 mls/hr Levofloxacin/Dextrose (Levaquin 250mg) 250 mg in 50 mls @ 50 mls/hr IVPB Q48H [facility] Last Admin: 03/21/18 08:56 Dose: 50 mls/hr Insulin Human Regular (Humulin R) 0 units SC ACCU-CHECK [facility] PRN Reason: Protocol Last Admin: 03/21/18 06:47 Dose: 4 units Levothyroxine Sodium (Synthroid) 125 mcg PO DAILY@0630 [facility] Last Admin: 03/21/18 06:46 Dose: 125 mcg Lidocaine (Lidoderm) 1 ea TD DAILY [facility] Last Admin: 03/21/18 08:52 Dose: 1 ea Loratadine (Claritin) 10 mg PO DAILY [facility] Last Admin: 03/21/18 08:52 Dose: 10 mg Nitroglycerin (Nitrostat Sl Tab) 0.4 mg SL Q5MIN PRN PRN Reason: FOR CHEST, ANIGINAL DISCOMFORT Ranolazine (Ranexa) 1,000 mg PO BID [facility] Last Admin: 03/21/18 08:51 Dose: 1,000 mg Valproate Sodium (Depakene Oral Soln) 500 mg PO Q12 [facility] Last Admin: 03/21/18 08:54 Dose: 500 mg - Labs Labs: 03/20/18 07:00 03/20/18 07:00 PT 10.8 Seconds (9.8-13.1) 03/15/18 14:06 INR 1.0 (0.9-1.2) 03/15/18 14:06 APTT 31.3 Seconds (25.6-37.1) 03/15/18 14:06 - Constitutional Appears: No Acute Distress - Head Exam Head Exam: NORMAL INSPECTION - Neurological Exam Neurological Exam: Awake Neuro motor strength exam: Left Upper Extremity: 3, Right Upper Extremity: 3, Left Lower Extremity: 2/1, Right Lower Extremity: 2/1 Additional comments: neurological unchanged from previous examination. Assessment and Plan (1) Seizure Assessment & Plan: Case discussed with Dr. Hill, continue all current medical, physical, and occupational therapies. Recommend hydration, keep head of bed elevated at least 30 degrees. If the patient will be discharge to follow up with Dr. Hill/ Vikash to follow up with her valproic level and dose, at [address] [facility] [address] [place] [address], [id number] tel. [phone]. Status: Acute
--- NOTE | 2018-03-21 12:42 | CP.PCM.PN ---
Subjective - Date & Time of Evaluation Date of Evaluation: 03/21/18 - Subjective Subjective: F/U Chest pain alert , smiling , no AD , answer questions , Patient with no AD , no cough , no SOB , Patient's family at bedside Objective - Vital Signs/Intake and Output Vital Signs (last 24 hours): Temp Pulse Resp BP Pulse Ox 97.9 F 66 18 122/63 95 03/21/18 12:00 03/21/18 12:00 03/21/18 12:00 03/21/18 12:00 03/21/18 12:00 - Medications Medications: Current Medications Albuterol/Ipratropium (Duoneb 3 Mg/0.5 Mg (3 Ml) Ud) 3 ml INH RQ6 [facility] Last Admin: 03/21/18 07:33 Dose: 3 ml Aspirin (Ecotrin) 81 mg PO DAILY [facility] Last Admin: 03/21/18 08:50 Dose: 81 mg Atorvastatin Calcium (Lipitor) 40 mg PO HS [facility] Last Admin: 03/20/18 21:19 Dose: 40 mg Carvedilol (Coreg) 3.125 mg PO Q12 [facility] Last Admin: 03/21/18 08:53 Dose: 3.125 mg Clotrimazole (Lotrimin 1% Cream) 1 applic TOP BID [facility] Last Admin: 03/21/18 08:51 Dose: 1 applic Docusate Sodium (Colace) 100 mg PO DAILY PRN PRN Reason: Constipation Last Admin: 03/13/18 09:24 Dose: 100 mg Ferrous Sulfate (Feosol) 325 mg PO DAILY [facility] Last Admin: 03/21/18 08:51 Dose: 325 mg Furosemide (Lasix) 40 mg PO DAILY [facility] Last Admin: 03/21/18 08:53 Dose: Not Given Gabapentin (Neurontin) 100 mg PO BID PRN PRN Reason: Leg cramps Glipizide (Glucotrol) 2.5 mg PO ACB [facility] Last Admin: 03/21/18 08:47 Dose: Not Given Heparin Sodium (Porcine) (Heparin) 5,000 units SC Q12 [facility] PRN Reason: Protocol Last Admin: 03/21/18 08:53 Dose: 5,000 units Hydralazine HCl (Apresoline) 10 mg PO TID [facility] Last Admin: 03/21/18 08:49 Dose: 10 mg Clindamycin Phosphate (Cleocin In Normal Saline) 600 mg in 50 mls @ 50 mls/hr IVPB Q12 [facility] PRN Reason: Protocol Last Admin: 03/21/18 08:56 Dose: 50 mls/hr Insulin Human Regular (Humulin R) 0 units SC ACCU-CHECK [facility] PRN Reason: Protocol Last Admin: 03/21/18 06:47 Dose: 4 units Levofloxacin (Levaquin) 250 mg PO Q48H [facility] Levothyroxine Sodium (Synthroid) 125 mcg PO DAILY@0630 [facility] Last Admin: 03/21/18 06:46 Dose: 125 mcg Lidocaine (Lidoderm) 1 ea TD DAILY [facility] Last Admin: 03/21/18 08:52 Dose: 1 ea Loratadine (Claritin) 10 mg PO DAILY [facility] Last Admin: 03/21/18 08:52 Dose: 10 mg Nitroglycerin (Nitrostat Sl Tab) 0.4 mg SL Q5MIN PRN PRN Reason: FOR CHEST, ANIGINAL DISCOMFORT Ranolazine (Ranexa) 1,000 mg PO BID [facility] Last Admin: 03/21/18 08:51 Dose: 1,000 mg Valproate Sodium (Depakene Oral Soln) 500 mg PO Q12 [facility] Last Admin: 03/21/18 08:54 Dose: 500 mg - Labs Labs: 03/20/18 07:00 03/20/18 07:00 PT 10.8 Seconds (9.8-13.1) 03/15/18 14:06 INR 1.0 (0.9-1.2) 03/15/18 14:06 APTT 31.3 Seconds (25.6-37.1) 03/15/18 14:06 - Constitutional Appears: No Acute Distress, Chronically Ill - Eye Exam Pupil Exam: PERRL ( R Eye , L Eye blind) - ENT Exam Additional comments: hard of hearing - Neck Exam Neck Exam: Normal Inspection - Respiratory Exam Respiratory Exam: Decreased Breath Sounds (at bases) - Cardiovascular Exam Cardiovascular Exam: REGULAR RHYTHM, Murmur (2/6 LSB) - GI/Abdominal Exam GI & Abdominal Exam: Soft, Normal Bowel Sounds - Extremities Exam Additional comments: L TMA - Back Exam Back Exam: tenderness - Neurological Exam Neurological Exam: Alert (alert, oriented x2) Additional comments: generalized weakness, no focal motor deficit - Psychiatric Exam Psychiatric exam: Normal Mood - Skin Skin Exam: Warm Assessment and Plan (1) Change in mental status Status: Acute (2) Pneumonia Status: Acute (3) Chest pain Status: Acute (4) Radiating pain Status: Acute (5) COPD (chronic obstructive pulmonary disease) Status: Chronic (6) Chronic lower urinary tract infection Status: Chronic (7) CAD (coronary artery disease) Status: Chronic (8) Chronic low back pain Status: Chronic (9) Diabetes mellitus Status: Chronic (10) Generalized weakness Status: Chronic (11) HTN (hypertension) Status: Chronic (12) Hypercholesterolemia Status: Chronic (13) Hypothyroidism Status: Chronic (14) Osteoarthritis Status: Chronic (15) Hx of CABG Status: Chronic (16) Seizure Status: Acute (17) CKD (chronic kidney disease) Status: Acute (18) CKD (chronic kidney disease) Status: Acute - Assessment and Plan (Free Text) Plan: PNAQ improved, continue Clinda, Levaquin , DuoNeb , f/u CXR today , change in mental status resolved , patient is back on her baseline, pending EEG report , Patient was started on Depakote for Dx of Seizure
--- NOTE | 2018-03-21 15:01 | RAD ---
HISTORY: Follow-up pneumonia COMPARISON: 03/18/2018 TECHNIQUE: Standard protocol for this study/examination. FINDINGS: LUNGS: Improved inspiratory effort. Improved aeration of both lower lobes and left upper lobe. PLEURA: No significant pleural effusion identified. No pneumothorax apparent. CARDIOVASCULAR: No radiographic findings to suggest acute or significant cardiovascular disease. Incidental Finding(s): Postoperative changes related to sternotomy. OSSEOUS STRUCTURES: No significant abnormalities. VISUALIZED UPPER ABDOMEN: Normal. OTHER FINDINGS: None. IMPRESSION: Interval improvement without complete resolution of bilateral multifocal infiltrates
[2018-03-21 19:56] VITALS: RESP 18
[2018-03-22] MEDS: Albuterol-Ipratrop 3 mg / 0.5 (3 ml) UD INH SCH ×3 (01:00→13:21)
[2018-03-22] MEDS: Levothyroxine 125 MCG TAB PO SCH (07:25)
[2018-03-22] MEDS: Insulin Regular 100 units/ml SC SCH ×2 (07:29→12:36)
[2018-03-22] MEDS: Lidocaine 5% Patch TD SCH (09:02)
[2018-03-22] MEDS: Valproic Acid 250 mg/5 ml UD Cup PO SCH (09:05)
[2018-03-22] MEDS: Ranolazine 500 mg Extended Release Tablets PO SCH (09:06)
[2018-03-22] MEDS: Clindamycin 600mg/50ml NS 600 MG/50 ML BAG IVPB SCH (09:12)
[2018-03-22 12:28] VITALS: BP 146/64; PULSE 65; TEMP 97.8; O2SAT 100
--- NOTE | 2018-03-22 14:17 | CP.PCM.PN ---
Subjective - Date & Time of Evaluation Date of Evaluation: 03/22/18 Objective - Vital Signs/Intake and Output Vital Signs (last 24 hours): Temp Pulse Resp BP Pulse Ox 97.8 F 65 18 146/64 100 03/22/18 12:28 03/22/18 12:36 03/22/18 12:28 03/22/18 12:36 03/22/18 12:28 - Medications Medications: Current Medications Albuterol/Ipratropium (Duoneb 3 Mg/0.5 Mg (3 Ml) Ud) 3 ml INH RQ6 [facility] Last Admin: 03/22/18 13:21 Dose: 3 ml Aspirin (Ecotrin) 81 mg PO DAILY [facility] Last Admin: 03/22/18 09:04 Dose: 81 mg Atorvastatin Calcium (Lipitor) 40 mg PO HS [facility] Last Admin: 03/21/18 23:37 Dose: 40 mg Carvedilol (Coreg) 3.125 mg PO Q12 [facility] Last Admin: 03/22/18 09:05 Dose: 3.125 mg Clotrimazole (Lotrimin 1% Cream) 1 applic TOP BID [facility] Last Admin: 03/22/18 09:02 Dose: 1 applic Docusate Sodium (Colace) 100 mg PO DAILY PRN PRN Reason: Constipation Last Admin: 03/13/18 09:24 Dose: 100 mg Ferrous Sulfate (Feosol) 325 mg PO DAILY [facility] Last Admin: 03/22/18 09:04 Dose: 325 mg Furosemide (Lasix) 40 mg PO DAILY [facility] Last Admin: 03/22/18 09:06 Dose: 40 mg Gabapentin (Neurontin) 100 mg PO BID PRN PRN Reason: Leg cramps Glipizide (Glucotrol) 2.5 mg PO ACB [facility] Last Admin: 03/22/18 09:04 Dose: 2.5 mg Heparin Sodium (Porcine) (Heparin) 5,000 units SC Q12 [facility] PRN Reason: Protocol Last Admin: 03/22/18 09:03 Dose: 5,000 units Hydralazine HCl (Apresoline) 10 mg PO TID [facility] Last Admin: 03/22/18 12:36 Dose: 10 mg Clindamycin Phosphate (Cleocin In Normal Saline) 600 mg in 50 mls @ 50 mls/hr IVPB Q12 [facility] PRN Reason: Protocol Last Admin: 03/22/18 09:12 Dose: 50 mls/hr Insulin Human Regular (Humulin R) 0 units SC ACCU-CHECK [facility] PRN Reason: Protocol Last Admin: 03/22/18 12:36 Dose: 3 units Levofloxacin (Levaquin) 250 mg PO Q48H [facility] Levothyroxine Sodium (Synthroid) 125 mcg PO DAILY@0630 [facility] Last Admin: 03/22/18 07:25 Dose: 125 mcg Lidocaine (Lidoderm) 1 ea TD DAILY [facility] Last Admin: 03/22/18 09:02 Dose: 1 ea Loratadine (Claritin) 10 mg PO DAILY [facility] Last Admin: 03/22/18 09:06 Dose: 10 mg Nitroglycerin (Nitrostat Sl Tab) 0.4 mg SL Q5MIN PRN PRN Reason: FOR CHEST, ANIGINAL DISCOMFORT Ranolazine (Ranexa) 1,000 mg PO BID [facility] Last Admin: 03/22/18 09:06 Dose: 1,000 mg Valproate Sodium (Depakene Oral Soln) 500 mg PO Q12 [facility] Last Admin: 03/22/18 09:05 Dose: 500 mg - Labs Labs: 03/20/18 07:00 03/20/18 07:00 PT 10.8 Seconds (9.8-13.1) 03/15/18 14:06 INR 1.0 (0.9-1.2) 03/15/18 14:06 APTT 31.3 Seconds (25.6-37.1) 03/15/18 14:06 Assessment and Plan (1) Change in mental status Status: Acute (2) Pneumonia Status: Acute (3) Chest pain Status: Acute (4) Radiating pain Status: Acute (5) COPD (chronic obstructive pulmonary disease) Status: Chronic (6) Chronic lower urinary tract infection Status: Chronic (7) CAD (coronary artery disease) Status: Chronic (8) Chronic low back pain Status: Chronic (9) Diabetes mellitus Status: Chronic (10) Generalized weakness Status: Chronic (11) HTN (hypertension) Status: Chronic (12) Hypercholesterolemia Status: Chronic (13) Hypothyroidism Status: Chronic (14) Osteoarthritis Status: Chronic (15) Hx of CABG Status: Chronic (16) Seizure Status: Acute (17) CKD (chronic kidney disease) Status: Acute (18) CKD (chronic kidney disease) Status: Acute
--- NOTE | 2018-03-22 14:49 | CP.PCM.DIS ---
Provider - Provider Date of Admission: 03/14/18 14:12 Attending physician: Sridhar Oliver MD Consults: Stroke Team, Cardiology and Wound Care. Time Spent in preparation of Discharge (in minutes): 30 Diagnosis - Discharge Diagnosis (1) Change in mental status Status: Acute (2) Pneumonia Status: Acute (3) Chest pain Status: Acute Priority: High (4) Radiating pain Status: Acute Priority: High (5) COPD (chronic obstructive pulmonary disease) Status: Chronic Priority: Medium (6) Chronic lower urinary tract infection Status: Chronic Priority: High (7) CAD (coronary artery disease) Status: Chronic Priority: Medium (8) Chronic low back pain Status: Chronic Priority: Medium (9) Diabetes mellitus Status: Chronic Priority: Medium (10) Generalized weakness Status: Chronic Priority: High (11) HTN (hypertension) Status: Chronic Priority: Medium (12) Hypercholesterolemia Status: Chronic Priority: Low (13) Hypothyroidism Status: Chronic Priority: Medium (14) Osteoarthritis Status: Chronic Priority: Medium (15) Hx of CABG Status: Chronic Priority: Medium (16) Seizure Status: Acute (17) CKD (chronic kidney disease) Status: Acute (18) CKD (chronic kidney disease) Status: Acute Hospital Course - Lab Results Lab Results: Most Recent Lab Values WBC 5.4 K/uL (4.8-10.8) 03/20/18 07:00 RBC 3.00 Mil/uL (3.80-5.20) L 03/20/18 07:00 Hgb 9.9 g/dL (12.0-16.0) L 03/20/18 07:00 Hct 28.7 % (34.0-47.0) L 03/20/18 07:00 MCV 95.7 fl (81.0-99.0) 03/20/18 07:00 MCH 33.0 pg (27.0-31.0) H 03/20/18 07:00 MCHC 34.5 g/dL (33.0-37.0) 03/20/18 07:00 RDW 13.5 % (11.5-14.5) 03/20/18 07:00 Plt Count 195 K/uL (130-400) 03/20/18 07:00 MPV 8.6 fl (7.2-11.7) 03/15/18 14:06 Neut % (Auto) 50.6 % (50.0-75.0) 03/15/18 14:06 Lymph % (Auto) 31.8 % (20.0-40.0) 03/15/18 14:06 [place] % (Auto) 10.0 % (0.0-10.0) 03/15/18 14:06 Eos % (Auto) 6.9 % (0.0-4.0) H 03/15/18 14:06 Baso % (Auto) 0.7 % (0.0-2.0) 03/15/18 14:06 Neut # (Auto) 3.0 K/uL (1.8-7.0) 03/15/18 14:06 Lymph # (Auto) 1.9 K/uL (1.0-4.3) 03/15/18 14:06 [place] # (Auto) 0.6 K/uL (0.0-0.8) 03/15/18 14:06 Eos # (Auto) 0.4 K/uL (0.0-0.7) 03/15/18 14:06 Baso # (Auto) 0.0 K/uL (0.0-0.2) 03/15/18 14:06 PT 10.8 Seconds (9.8-13.1) 03/15/18 14:06 INR 1.0 (0.9-1.2) 03/15/18 14:06 APTT 31.3 Seconds (25.6-37.1) 03/15/18 14:06 pCO2 53 mm/Hg (35-45) H 03/14/18 12:35 pO2 79 mm/Hg (80-100) L 03/14/18 12:35 HCO3 31.6 mmol/L (21-28) H 03/14/18 12:35 ABG pH 7.42 (7.35-7.45) 03/14/18 12:35 ABG Total CO2 36.0 mmol/L (22-28) H 03/14/18 12:35 ABG O2 Saturation 94.3 % (95-98) L 03/14/18 12:35 ABG O2 Content 13.7 ML/dL (15-23) L 03/14/18 12:35 ABG Base Excess 8.6 mmol/L (-2.0-3.0) H 03/14/18 12:35 ABG Hemoglobin 10.4 g/dL (11.7-17.4) L 03/14/18 12:35 ABG Carboxyhemoglobin 0 % (0.5-1.5) L 03/14/18 12:35 POC ABG HHb (Measured) 5.6 % (0.0-5.0) H 03/14/18 12:35 ABG Methemoglobin 1.3 % (0.0-3.0) 03/14/18 12:35 ABG O2 Capacity 14.5 mL/dL (16-24) L 03/14/18 12:35 August Test Yes 03/14/18 12:35 A-a O2 Difference 69.0 mm/Hg 03/14/18 12:35 Hgb O2 Saturation 93.1 % (95.0-98.0) L 03/14/18 12:35 FiO2 30.0 % 03/14/18 12:35 Blood Gas Comments 2l/m nc,rr 03/14/18 12:35 Sodium 139 mmol/l (132-148) 03/20/18 07:00 Potassium 4.6 MMOL/L (3.6-5.0) 03/20/18 07:00 Chloride 100 mmol/L (98-107) 03/20/18 07:00 Carbon Dioxide 35 mmol/L (22-30) H 03/20/18 07:00 Anion Gap 9 (10-20) L 03/20/18 07:00 BUN 25 mg/dl (7-17) H 03/20/18 07:00 Creatinine 1.6 mg/dl (0.7-1.2) H 03/20/18 07:00 Est GFR ( Amer) 38 03/20/18 07:00 Est GFR (Non-Af Amer) 31 03/20/18 07:00 POC Glucose (mg/dL) 242 mg/dL (65-110) H 03/22/18 11:28 Random Glucose 186 mg/dL (65-105) H 03/20/18 07:00 Hemoglobin A1c 6.3 % (4.2-6.5) 03/15/18 14:06 Calcium 8.7 mg/dL (8.4-10.2) 03/20/18 07:00 Magnesium 1.9 MG/DL (1.6-2.3) 03/14/18 04:20 Total Bilirubin 0.8 mg/dl (0.2-1.3) 03/15/18 14:06 AST 22 U/L (14-36) 03/15/18 14:06 ALT 23 U/L (9-52) 03/15/18 14:06 Alkaline Phosphatase 73 U/L (38-126) 03/15/18 14:06 Troponin I < 0.0120 ng/mL (0.00-0.120) 03/15/18 14:06 NT-Pro-B Natriuret Pep 825 pg/ml (0-900) 03/12/18 15:38 Total Protein 6.9 G/DL (6.3-8.2) 03/15/18 14:06 Albumin 3.2 g/dL (3.5-5.0) L 03/15/18 14:06 Globulin 3.7 gm/dL (2.2-3.9) 03/15/18 14:06 Albumin/Globulin Ratio 0.9 (1.0-2.1) L 03/15/18 14:06 Triglycerides 141 mg/DL (0-149) 03/15/18 14:06 Cholesterol 138 mg/dL (0-199) 03/15/18 14:06 LDL Cholesterol Direct 52 mg/dL (0-129) 03/15/18 14:06 HDL Cholesterol 32 MG/DL (30-70) 03/15/18 14:06 Free T4 0.96 ng/dL (0.78-2.19) 03/14/18 04:20 Thyroxine (T4) 8.63 ug/dl (5.5-11.0) 03/13/18 06:20 Total T3 0.720 nmol/L (1.49-2.60) L 03/14/18 04:20 TSH 3rd Generation 8.94 mIU/ML (0.46-4.68) H 03/13/18 06:20 Blood Type O POSITIVE 03/15/18 14:06 Antibody Screen Negative 03/15/18 14:06 BBK History Checked Patient has bt 03/15/18 14:06 - Date & Time of H&P Date of H&P: 06/16/18 Time of H&P: 19:00 Discharge Exam - Head Exam Head Exam: NORMAL INSPECTION - Eye Exam Eye Exam: PERRL (R eye, L eye blind) - ENT Exam Additional comments: Hard of hearing - Neck Exam Neck exam: Normal Inspection - Respiratory Exam Respiratory Exam: Decreased Breath Sounds (at bases) - Cardiovascular Exam Cardiovascular Exam: REGULAR RHYTHM Additional comments: Murmur 2/6 LSB - GI/Abdominal Exam GI & Abdominal Exam: Normal Bowel Sounds, Soft - Extremities Exam Additional comments: L TMA - Back Exam Back exam: tenderness - Neurological Exam Neurological exam: Alert Additional comments: Oriented x 2, generalized weakness, no focal motor deficit - Psychiatric Exam Psychiatric exam: Normal Mood - Skin Skin Exam: Warm Discharge Plan - Discharge Medications Prescriptions: hydrALAZINE [Apresoline] 10 mg PO TID #9 tab levoFLOXacin [Levaquin] 250 mg PO Q48H #5 tab - Follow Up Plan Condition: FAIR Disposition: DISCHARGED TO HOME CARE Instructions: Pneumonia, Adult (DC) Additional Instructions: wednesdaymarch 28 @ 3:30pm with Dr. Oliver Referrals: Sridhar Oliver MD [Family Provider] -
== END 2018-03-22 15:55 | disposition home health service (06) | DRG 541 ==
LOC: H.ER 15:08 → H.ERHOLD 16:51 → H.TEL 18:47 → OBSVTOIN 03-14 14:12
PROVIDERS: ADMIT Internal Medicine Pulmonary Disease; ATTEND Internal Medicine Pulmonary Disease
DX: J18.9 Pneumonia, unspecified organism (principal); N17.9 Acute kidney failure, unspecified; N39.0 Urinary tract infection, site not specified; N18.3 Chronic kidney disease, stage 3 (moderate); J44.0 Chronic obstructive pulmonary disease with (acute) lower respiratory infection; I13.0 Hypertensive heart and chronic kidney disease with heart failure and stage 1 through stage 4 chronic kidney disease, or unspecified chronic kidney disease; I50.9 Heart failure, unspecified; R56.9 Unspecified convulsions; E11.65 Type 2 diabetes mellitus with hyperglycemia; E11.22 Type 2 diabetes mellitus with diabetic chronic kidney disease; F03.90 Unspecified dementia, unspecified severity, without behavioral disturbance, psychotic disturbance, mood disturbance, and anxiety; R07.89 Other chest pain; I25.10 Atherosclerotic heart disease of native coronary artery without angina pectoris; E03.9 Hypothyroidism, unspecified; E78.5 Hyperlipidemia, unspecified; E78.00 Pure hypercholesterolemia, unspecified; G89.29 Other chronic pain; M54.5 Low back pain; F41.9 Anxiety disorder, unspecified; K29.70 Gastritis, unspecified, without bleeding; M19.90 Unspecified osteoarthritis, unspecified site; H54.62 Unqualified visual loss, left eye, normal vision right eye; Z88.6 Allergy status to analgesic agent; Z95.0 Presence of cardiac pacemaker; Z95.1 Presence of aortocoronary bypass graft; Z95.5 Presence of coronary angioplasty implant and graft; Z79.82 Long term (current) use of aspirin; Z87.01 Personal history of pneumonia (recurrent); Z87.440 Personal history of urinary (tract) infections; Z88.0 Allergy status to penicillin

== ENCOUNTER 2018-04-19 21:49 | Observation (INO) | payer MEDICAID ==
[2018-04-19 21:50] VITALS: BMI 29.3
--- NOTE | 2018-04-19 22:45 | ED PDOC ---
HPI: Chest Pain Time Seen by Provider: 04/19/18 22:05 Chief Complaint (Nursing): Headache Chief Complaint (Provider): Headache History Per: Family History/Exam Limitations: clinical condition (dementia) Onset/Duration Of Symptoms: Hrs (x2) Current Symptoms Are (Timing): Still Present Additional Complaint(s): 77 year old female with pmHx of dementia, CHF, COPD, DM, HTN and hypothyroidism, arrives to the emergency department with family for an evaluation of acute chest pain associated with bilateral arm pain ongoing for the last 2 hours. Family reports that patient had trouble raising her arms, appeared confused then given nitroglycerin by her , which provided some alleviation. No reports of vomiting or difficulty breathing. Of note, patient was recently hospitalized for pneumonia and currently bed bound as baseline. PMD: Dr. Sridhar Oliver Past Medical History Reviewed: Historical Data, Nursing Documentation, Vital Signs Vital Signs: Last Vital Signs Temp 97.8 F 04/20/18 19:30 Pulse 71 04/20/18 19:30 Resp 20 04/20/18 19:30 BP 130/73 04/20/18 19:30 Pulse Ox 96 04/20/18 19:30 - Medical History PMH: Anemia, Anxiety, Arthritis, Asthma, Back Problems, Bronchitis, CAD, CHF, COPD, Dementia, Depression, Diabetes, Gastritis, HTN, Hypercholesterolemia, Hyperlipidemia, Hypothyroidism, Peripheral Edema, Pneumonia, Chronic Kidney Disease (mild renal insufficiecy.), Seizures Denies: HIV, Rheumatoid Arthritis - Surgical History Surgical History: CABG (x4), Cholecystectomy, Coronary Stent, Pacemaker - Family History Family History: States: Unknown Family Hx - Social History Current smoker - smoking cessation education provided: No Alcohol: None Drugs: Denies - Home Medications Home Medications: Ambulatory Orders Medication Instructions Recorded Aspirin [Ecotrin] 81 mg PO DAILY 01/12/17 Carvedilol [Coreg] 3.125 mg PO BID 01/12/17 Ranolazine [Ranexa] 1,000 mg PO BID 01/12/17 Atorvastatin [Lipitor] 40 mg PO DAILY 02/01/17 Docusate [Colace] 100 mg PO DAILY PRN 08/30/17 amLODIPine [Norvasc] 10 mg PO DAILY #30 tab 11/05/17 Acetaminophen/Codeine 1 tab PO Q6 PRN 03/12/18 [Tylenol/Codeine 300 MG/30 MG] Ferrous Sulfate [Feosol] 325 mg PO DAILY 03/12/18 Furosemide [Lasix] 20 mg PO QOTHERDAY 03/12/18 Gabapentin [Neurontin] 100 mg PO BID 03/12/18 Loratadine [Claritin] 10 mg PO DAILY 03/12/18 Phenazopyridine [Pyridium] 200 mg PO BID 03/12/18 ALPRAZolam [Xanax] 0.25 mg PO BID 04/20/18 Calcium Carbonate/Vitamin D3 1 tab PO TID 04/20/18 [Calcium 600 + Vit D 400 Softgl] - Allergies Allergies/Adverse Reactions: Allergies Allergy/AdvReac Type Severity Reaction Status Date / Time kiwi Allergy Mild RASH Verified 04/19/18 21:53 morphine Allergy Mild RASH Verified 04/19/18 21:53 Penicillins Allergy Mild RASH Verified 04/19/18 21:53 pineapple Allergy Mild RASH Verified 04/19/18 21:53 watermelon Allergy Mild RASH Verified 04/19/18 21:53 Review of Systems ROS Statement: Except As Marked, All Systems Reviewed And Found Negative Cardiovascular: Positive for: Chest Pain Respiratory: Negative for: Shortness of Breath Gastrointestinal: Negative for: Vomiting Musculoskeletal: Positive for: Arm Pain (bilateral) Neurological: Positive for: Confusion (baseline) Physical Exam - Reviewed Nursing Documentation Reviewed: Yes Vital Signs Reviewed: Yes - Physical Exam Appears: Positive for: No Acute Distress Head Exam: Positive for: ATRAUMATIC, NORMAL INSPECTION, NORMOCEPHALIC Skin: Positive for: Normal Color Eye Exam: Positive for: Other ENT: Positive for: Normal ENT Inspection Neck: Positive for: Normal Cardiovascular/Chest: Positive for: Regular Rate, Rhythm, Chest Non Tender Respiratory: Positive for: Normal Breath Sounds. Negative for: Wheezing, Respiratory Distress Gastrointestinal/Abdominal: Positive for: Normal Exam, Soft. Negative for: Tenderness Extremity: Positive for: Normal ROM (upper/lower). Negative for: Pedal Edema ( bilateral) Neurologic/Psych: Positive for: Alert, Oriented (to person only - baseline) - Laboratory Results Result Diagrams: 04/19/18 22:58 04/19/18 22:58 - ECG O2 Sat by Pulse Oximetry: 98 (RA) Pulse Ox Interpretation: Normal Medical Decision Making Medical Decision Making: Initial Impression: 77 y/o female with chest pain Initial Plan: * EKG * BNP * CMP * CPK * Lact acid * Magnesium * TSH * Troponin I * Urine dipstick * CBC * PTT * PT * CXR * Accucheck * Art Taylor B Time: 2213 --Accucheck: 266 23:40 -Labs reviewed and showed no clinical significant abnormalities. Case discussed with Dr. Oliver and patient placed in chest pain observation. Diagnosis chest pain, condition stable. Scribe Attestation: Documented by Nicolette Giraldo, acting as a scribe for Mukul Reyes MD. Provider Scribe Attestation: All medical record entries made by the Scribe were at my direction and personally dictated by me. I have reviewed the chart and agree that the record accurately reflects my personal performance of the history, physical exam, medical decision making, and the department course for this patient. I have also personally directed, reviewed, and agree with the discharge instructions and disposition. Disposition - Clinical Impression Clinical Impression: Chest pain, UTI (urinary tract infection) - Disposition Disposition Time: 23:40 Condition: FAIR
[2018-04-19 23:19] LABS: BASO # 0.1 K/uL (0.0-0.2); BASO % 1.1 % (0.0-2.0); EOS # 0.3 K/uL (0.0-0.7); HEMOGLOBIN 11.2 g/dL (12.0-16.0); LYMPH # 2.2 K/uL (1.0-4.3); LYMPH % 33.8 % (20.0-40.0); MEAN CELL VOLUME 95.4 fl (81.0-99.0); MEAN CORPUSCULAR HEMOGLOBIN 32.2 pg (27.0-31.0); MEAN CORPUSCULAR HGB CONC 33.8 g/dL (33.0-37.0); MEAN PLATELET VOLUME 8.9 fl (7.2-11.7); MONO # 0.5 K/uL (0.0-0.8); MONO % 7.9 % (0.0-10.0); NEUT # 3.5 K/uL (1.8-7.0); NEUT % 52.2 % (50.0-75.0); PROTHROMBIN TIME 11.4 Seconds (9.8-13.1); RBC 3.49 Mil/uL (3.80-5.20); RED CELL DISTRIBUTION WIDTH 13.4 % (11.5-14.5); WHITE BLOOD COUNT 6.6 K/uL (4.8-10.8)
[2018-04-19 23:20] LABS: PARTIAL THROMBOPLASTIN TIME 31.5 Seconds (25.6-37.1)
[2018-04-19 23:27] LABS: ALB/GLOB RATIO 0.9 (1.0-2.1); ALBUMIN 3.1 g/dL (3.5-5.0); ALT/SGPT 29 U/L (9-52); AST/SGOT 26 U/L (14-36); BLOOD UREA NITROGEN 21 mg/dl (7-17); CALCIUM 9.2 mg/dL (8.4-10.2); GFR AFRICAN-AMERICAN 44; GFR NON-AFRICAN AMERICAN 36
[2018-04-19 23:39] LABS: B-TYPE NATRIURETIC PEPTIDE 485 pg/ml (0-900)
[2018-04-20 00:22] LABS: SQUAMOUS EPITHIAL 2 /hpf (0-5); URINE BACTERIA MANY (<OCC); URINE BILIRUBIN NEGATIVE (NEGATIVE); URINE BLOOD SMALL (NEGATIVE); URINE CLARITY TURBID (Clear); URINE COLOR AMBER (YELLOW); URINE GLUCOSE (UA) >=500 mg/dL (Normal); URINE LEUKOCYTE ESTERASE LARGE Leu/uL (Negative); URINE PROTEIN 100 mg/dL (NEGATIVE); URINE UROBILINOGEN 0.2-1.0 mg/dL (0.2-1.0); WBC CLUMPS MANY /hpf
[2018-04-20] MEDS ORDERED: Ciprofloxacin 400mg/200ml D5W 400 MG/200 ML BAG IV STA (00:28)
[2018-04-20] MEDS ORDERED: Sod Polystyrene Sulf 15 gm/60 ml Susp PO STA (00:30)
[2018-04-20] MEDS ORDERED: Ciprofloxacin 400mg/200ml D5W 400 MG/200 ML BAG IVPB ONE (01:26)
[2018-04-20] MEDS ORDERED: Sod Polystyrene Sulf 15 gm/60 ml Susp ONE (01:27)
--- NOTE | 2018-04-20 09:07 | RAD ---
Date of service: 04/19/2018 HISTORY: chest pain COMPARISON: Chest radiographs 03/21/2018. FINDINGS: LUNGS: No acute pulmonary disease appreciated bilaterally. Patchy density right base has now resolved. Fibrotic changes remain at the inferior left lung zone. PLEURA: No significant pleural effusion identified, no pneumothorax apparent. CARDIOVASCULAR: Stable cardiac silhouette. No pulmonary vascular congestion. OSSEOUS STRUCTURES: Sternotomy wires unchanged. VISUALIZED UPPER ABDOMEN: Normal. OTHER FINDINGS: None. IMPRESSION: No acute interval cardiopulmonary disease appreciable. Patchy density right base resolved. Left basilar fibrotic changes are stable.
[2018-04-20] MEDS ORDERED: Insulin Lispro Mix 75/25 100 units/ml (HumaLog) 10ml SC SCH (11:30)
[2018-04-20] MEDS ORDERED: Acetaminophen-Codeine 300/30 mg Tab PO PRN (12:31)
--- NOTE | 2018-04-20 13:24 | CARD ---
APPROVED REPORT Date of service: 04/19/2018 EKG Measurement Heart [id number] <Conclusion> Sinus bradycardia Otherwise normal ECG
[2018-04-20] MEDS: Ciprofloxacin 200mg/100ml D5W 100 ML IVPB SCH ×2 (13:56→21:30)
[2018-04-20] MEDS: Enoxaparin 40 mg Syringe SC SCH (13:59)
[2018-04-20] MEDS: Calcium-Vit D 500 mg-200 Units Tab UD PO SCH ×2 (14:00→17:16)
[2018-04-20] MEDS ORDERED: Dextrose 50% SYRINGE Inj (50 ml) IV PRN (17:09)
[2018-04-20] MEDS ORDERED: Glucagon Recombinant 1 mg Inj IM PRN (17:09)
--- NOTE | 2018-04-20 17:14 | CP.PCM.HP ---
History of Present Illness - History of Present Illness History of Present Illness: CC: Headache.Worsening symptom: 77 y/po F, Multiple chronic PMHx, including CHF, COPD, Hx.CABG, HTN, brought to [facility], [place] by EMS to be evaluated for Acute onset of Headache, that was sharp, aching type, moderate intensity 6:10, non radiating pain, but associated to Chest pain, B/L arms pain unable to raise to raising her hands x 2 Hrs [employer]. Pt had Ntg at home by her with some relief. Worsening symptom: AMS, Pt with significant Hx for Dementia, found with confusion above her normal base line. Abnormal U/A. Aggravated factor: Poor historian, unable to ambulate. As per family; No fever, chills, n/v/d, abdominal pain, syncope, LOC, numbness , sick contact. CXR: Sinus Bradycardia. CXR: No acute pulmonary disease.. Patchy density in R base resolved. Patient was [facility] Aug 2017 for Syncope , Chest pain , STT anterior wall/ LAD territory ischemia, Patient was transferred to [facility] and had Cardiac Cath , recommendation continue conservative treatment Present on Admission - Present on Admission Any Indicators Present on Admission: No Review of Systems - Constitutional Constitutional: Weakness - EENT Eyes: Loss of Vision (L eye) Ears: Decreased Hearing (R ear) Nose/Mouth/Throat: Other (negative) - Cardiovascular Cardiovascular: Chest Pain, Dyspnea - Respiratory Respiratory: Dyspnea - Gastrointestinal Gastrointestinal: Constipation - Genitourinary Genitourinary: Urinary Incontinence - Musculoskeletal Musculoskeletal: Arthralgias - Integumentary Integumentary: Other (negative) - Neurological Neurological: Confusion - Psychiatric Psychiatric: Anxiety - Endocrine Endocrine: Other (negative) - Hematologic/Lymphatic Hematologic: Other (anemia) Past Patient History - Infectious Disease Hx of Infectious Diseases: None - Tetanus Immunizations Tetanus Immunization: Unknown - Past Medical History & Family History Past Medical History?: Yes Pertinent Family History: Unknown - Past Social History Smoking Status: Never Smoked Alcohol: None Drugs: Denies Home Situation {Lives}: With Family - CARDIAC Hx Cardiac Disorders: Yes Hx Congestive Heart Failure: Yes Hx Hypercholesterolemia: Yes Hx Hypertension: Yes Hx Pacemaker: Yes Hx Peripheral Edema: Yes - PULMONARY Hx Respiratory Disorders: Yes Hx Asthma: Yes Hx Bronchitis: Yes Hx Chronic Obstructive Pulmonary Disease (COPD): Yes Hx Pneumonia: Yes - NEUROLOGICAL Hx Neurological Disorder: Yes Hx Dementia: Yes Hx Seizures: Yes - HEENT Hx HEENT Problems: Yes Hx Blind: Yes (left eye) Other/Comment: Hard of hear R ear., left eye blind - RENAL Hx Chronic Kidney Disease: Yes (mild renal insufficiecy.) - ENDOCRINE/METABOLIC Hx Hypothyroidism: Yes - HEMATOLOGICAL/ONCOLOGICAL Hx Blood Disorders: Yes Hx AIDS: No Hx Anemia: Yes Hx Human Immunodeficiency Virus (HIV): No - INTEGUMENTARY Hx Dermatological Problems: No - MUSCULOSKELETAL/RHEUMATOLOGICAL Hx Musculoskeletal Disorders: Yes Hx Arthritis: Yes Hx Back Pain: Yes Hx Falls: No Hx Rheumatoid Arthritis: No - GASTROINTESTINAL Hx Gastrointestinal Disorders: Yes Hx Gastritis: Yes - GENITOURINARY/GYNECOLOGICAL Hx Genitourinary Disorders: Yes Hx Incontinence: Yes Hx Urinary Tract Infection: Yes - PSYCHIATRIC Hx Psychophysiologic Disorder: Yes Hx Anxiety: Yes Hx Depression: Yes Hx Substance Use: No - SURGICAL HISTORY Hx Surgeries: Yes Hx Cholecystectomy: Yes Hx Coronary Artery Bypass Graft: Yes (x4) Hx Coronary Stent: Yes - ANESTHESIA Hx Anesthesia: Yes Hx Anesthesia Reactions: No Hx Malignant Hyperthermia: No Meds Allergies/Adverse Reactions: Allergies Allergy/AdvReac Type Severity Reaction Status Date / Time kiwi Allergy Mild RASH Verified 04/19/18 21:53 morphine Allergy Mild RASH Verified 04/19/18 21:53 Penicillins Allergy Mild RASH Verified 04/19/18 21:53 pineapple Allergy Mild RASH Verified 04/19/18 21:53 watermelon Allergy Mild RASH Verified 04/19/18 21:53 Physical Exam - Constitutional Appears: Chronically Ill - Head Exam Head Exam: NORMAL INSPECTION - Eye Exam Eye Exam: PERRL (R eye, L eye blind) - ENT Exam Additional comments: Hard of hearing R side - Neck Exam Neck exam: Positive for: Normal Inspection - Respiratory Exam Respiratory Exam: Decreased Breath Sounds (at bases) - Cardiovascular Exam Cardiovascular Exam: REGULAR RHYTHM, Systolic Murmur (2/6LSB) - GI/Abdominal Exam GI & Abdominal Exam: Normal Bowel Sounds, Soft - Extremities Exam Extremities exam: Positive for: tenderness (R L knee) Additional comments: L TMA - Back Exam Back exam: tenderness (mild) - Neurological Exam Neurological exam: Alert Additional comments: Confused, follows commands, generalized weakness - Psychiatric Exam Psychiatric exam: Anxious - Skin Skin Exam: Warm Results - Vital Signs Recent Vital Signs: Last Vital Signs Temp 97.7 F 04/20/18 17:00 Pulse 77 04/20/18 17:00 Resp 20 04/20/18 17:00 BP 177/75 H 04/20/18 17:00 Pulse Ox 100 04/20/18 17:00 - Labs Result Diagrams: 04/19/18 22:58 04/19/18 22:58 Labs: Laboratory Results - last 24 hr 04/19/18 04/19/18 04/19/18 21:52 22:58 22:58 WBC 6.6 RBC 3.49 L Hgb 11.2 L Hct 33.3 L MCV 95.4 MCH 32.2 H MCHC 33.8 RDW 13.4 Plt Count 154 MPV 8.9 Neut % (Auto) 52.2 Lymph % (Auto) 33.8 Sac % (Auto) 7.9 Eos % (Auto) 5.0 H Baso % (Auto) 1.1 Neut # (Auto) 3.5 Lymph # (Auto) 2.2 Sac # (Auto) 0.5 Eos # (Auto) 0.3 Baso # (Auto) 0.1 PT INR APTT Sodium 136 Potassium 5.5 H Chloride 100 Carbon Dioxide 31 H Anion Gap 11 BUN 21 H Creatinine 1.4 H Est GFR ( Amer) 44 Est GFR (Non-Af Amer) 36 POC Glucose (mg/dL) 266 H Random Glucose 269 H Lactic Acid Calcium 9.2 Magnesium 2.1 Total Bilirubin 0.4 AST 26 ALT 29 Alkaline Phosphatase 122 Total Creatine Kinase 134 Troponin I < 0.0120 NT-Pro-B Natriuret Pep 485 Total Protein 6.5 Albumin 3.1 L Globulin 3.4 Albumin/Globulin Ratio 0.9 L TSH 3rd Generation 15.70 H Urine Color Urine Clarity Urine pH Ur Specific [place] Urine Protein Urine Glucose (UA) Urine Ketones Urine Blood Urine Nitrate Urine Bilirubin Urine Urobilinogen Ur Leukocyte Esterase Urine RBC (Auto) Urine WBC Clumps (Auto) Urine Microscopic WBC Ur Squamous Epith Cells Urine Bacteria Influenza Typ A,B (EIA) 04/19/18 04/19/18 04/19/18 22:58 22:58 22:58 WBC RBC Hgb Hct MCV MCH MCHC RDW Plt Count MPV Neut % (Auto) Lymph % (Auto) Sac % (Auto) Eos % (Auto) Baso % (Auto) Neut # (Auto) Lymph # (Auto) Sac # (Auto) Eos # (Auto) Baso # (Auto) PT 11.4 INR 1.0 APTT 31.5 Sodium Potassium Chloride Carbon Dioxide Anion Gap BUN Creatinine Est GFR ( Amer) Est GFR (Non-Af Amer) POC Glucose (mg/dL) Random Glucose Lactic Acid 1.0 Calcium Magnesium Total Bilirubin AST ALT Alkaline Phosphatase Total Creatine Kinase Troponin I NT-Pro-B Natriuret Pep Total Protein Albumin Globulin Albumin/Globulin Ratio TSH 3rd Generation Urine Color Urine Clarity Urine pH Ur Specific [place] Urine Protein Urine Glucose (UA) Urine Ketones Urine Blood Urine Nitrate Urine Bilirubin Urine Urobilinogen Ur Leukocyte Esterase Urine RBC (Auto) Urine WBC Clumps (Auto) Urine Microscopic WBC Ur Squamous Epith Cells Urine Bacteria Influenza Typ A,B (EIA) Negative for flu a/b 04/20/18 04/20/18 04/20/18 00:10 07:34 12:29 WBC RBC Hgb Hct MCV MCH MCHC RDW Plt Count MPV Neut % (Auto) Lymph % (Auto) Sac % (Auto) Eos % (Auto) Baso % (Auto) Neut # (Auto) Lymph # (Auto) Sac # (Auto) Eos # (Auto) Baso # (Auto) PT INR APTT Sodium Potassium Chloride Carbon Dioxide Anion Gap BUN Creatinine Est GFR ( Amer) Est GFR (Non-Af Amer) POC Glucose (mg/dL) 227 H 343 H Random Glucose Lactic Acid Calcium Magnesium Total Bilirubin AST ALT Alkaline Phosphatase Total Creatine Kinase Troponin I NT-Pro-B Natriuret Pep Total Protein Albumin Globulin Albumin/Globulin Ratio TSH 3rd Generation Urine Color Sarah Urine Clarity Turbid Urine pH 5.0 Ur Specific [place] 1.012 Urine Protein 100 Urine Glucose (UA) >=500 Urine Ketones Negative Urine Blood Small Urine Nitrate Negative Urine Bilirubin Negative Urine Urobilinogen 0.2-1.0 Ur Leukocyte Esterase Large Urine RBC (Auto) 9 H Urine WBC Clumps (Auto) Many H Urine Microscopic WBC 630 H Ur Squamous Epith Cells 2 Urine Bacteria Many H Influenza Typ A,B (EIA) 04/20/18 14:34 WBC RBC Hgb Hct MCV MCH MCHC RDW Plt Count MPV Neut % (Auto) Lymph % (Auto) Sac % (Auto) Eos % (Auto) Baso % (Auto) Neut # (Auto) Lymph # (Auto) Sac # (Auto) Eos # (Auto) Baso # (Auto) PT INR APTT Sodium Potassium Chloride Carbon Dioxide Anion Gap BUN Creatinine Est GFR ( Amer) Est GFR (Non-Af Amer) POC Glucose (mg/dL) Random Glucose Lactic Acid Calcium Magnesium Total Bilirubin AST ALT Alkaline Phosphatase Total Creatine Kinase Troponin I < 0.0120 NT-Pro-B Natriuret Pep Total Protein Albumin Globulin Albumin/Globulin Ratio TSH 3rd Generation Urine Color Urine Clarity Urine pH Ur Specific [place] Urine Protein Urine Glucose (UA) Urine Ketones Urine Blood Urine Nitrate Urine Bilirubin Urine Urobilinogen Ur Leukocyte Esterase Urine RBC (Auto) Urine WBC Clumps (Auto) Urine Microscopic WBC Ur Squamous Epith Cells Urine Bacteria Influenza Typ A,B (EIA) Assessment & Plan (1) Chest pain Status: Acute (2) CAD (coronary artery disease) Status: Chronic (3) H/O heart artery stent Status: Acute (4) Hx of CABG Status: Acute (5) HTN (hypertension) Status: Acute (6) Diabetes mellitus Status: Acute (7) Hyperglycemia Status: Acute (8) PVD (peripheral vascular disease) Status: Chronic (9) DM neuropathy, type II diabetes mellitus Status: Chronic (10) DM retinopathy Status: Chronic (11) UTI (urinary tract infection) Status: Acute (12) CKD (chronic kidney disease) Status: Acute (13) High cholesterol Status: Chronic (14) Osteoarthritis Status: Chronic - Assessment and Plan (Free Text) Plan: f/u Cardiac consult , Cipro,f /u Urine C-S. BS and BP control
[2018-04-20] MEDS: Patient's Own Med (Ranolazine [Ranexa] 1,000 MG) PO SCH (17:17)
[2018-04-20] MEDS: Insulin Lispro Mix 75/25 100 units/ml (HumaLog) 10ml SC SCH (17:19)
--- NOTE | 2018-04-20 20:03 | CP.PCM.CON ---
History of Present Illness - History of Present Illness History of Present Illness: Patient is a 77 year old female with a history of HTN DM who presents with UTI. the patient complained of chest pain. There was no association with movement. The patient denies chest pain currently. Review of Systems - Constitutional Constitutional: absent: As Per HPI, Anorexia, Chills, Daytime Sleepiness, Excessive Sweating, Fatigue, Fever, Frequent Falls, Headache, Increased Appetite , Lethargy, Malaise, Night Sweats, Snoring, Sleep Apnea, Weight Gain, Weight Loss, Weakness, Other - EENT Eyes: absent: As Per HPI, Blind Spots, Blurred Vision, Change in Vision, Decreased Night Vision, Diplopia, Discharge, Dry Eye, Exophthalmos, Floaters, Irritation, Itchy Eyes, Loss of Peripheral Vision, Pain, Photophobia, Requires Corrective Lenses, Sees Flashes, Spots in Vision, Tunnel Vision, Other Visual Disturbances, Loss of Vision, Other Ears: absent: As Per HPI, Decreased Hearing, Ear Discharge, Ear Pain, Tinnitus, Abnormal Hearing, Disequilibrium, Dizziness, Other Nose/Mouth/Throat: absent: As Per HPI, Epistaxis, Nasal Congestion, Nasal Discharge, Nasal Obstruction, Nasal Trauma, Nose Pain, Post Nasal Drip, Sinus Pain, Sinus Pressure, Bleeding Gums, Change in Voice, Dental Pain, Dry Mouth, Dysphagia, Halitosis, Hoarsness, Lip Swelling, Mouth Lesions, Mouth Pain, Odynophagia, Sore Throat, Throat Swelling, Tongue Swelling, Facial Pain, Neck Pain, Neck Mass, Other - Breasts Breasts: absent: As Per HPI, Change in Shape, Mass, Pain, Nipple Discharge, Nipple Inversion, Skin Changes, Swelling, Other - Cardiovascular Cardiovascular: Chest Pain - Respiratory Respiratory: absent: As Per HPI, Cough, Dyspnea, Hemoptysis, Dyspnea on Exertion , Wheezing, Snoring, Stridor, Pain on Inspiration, Chest Congestion, Excessive Mucous Production, Change in Mucous Color, Pain with Coughing, Other - Gastrointestinal Gastrointestinal: absent: As Per HPI, Abdominal Pain, Belching, Bloating, Change in Bowel Habits, Change in Stool Character, Coffee Ground Emesis, Constipation, Cramping, Diarrhea, Dyspepsia, Dysphagia, Early Satiety, Excessive Flatus, Fecal Incontinence, Heartburn, Hematemesis, Hematochezia, Loose Stools, Melena, Nausea, Odynophagia, Temesmus, Vomiting, Other - Genitourinary Genitourinary: Urinary Frequency - Musculoskeletal Musculoskeletal: absent: As Per HPI, Abnormal Gait, Arthralgias, Atrophy, Back Pain, Deformity, Joint Swelling, Limited Range of Motion, Loss of Height, Muscle Cramps, Muscle Weakness, Myalgias, Neck Pain, Numbness, Radiating Pain into Limb, Stiffness, Tingling, Other - Integumentary Integumentary: absent: As Per HPI, Acne, Alopecia, Bleeding Lesions, Change in Hair, Change in Nails, Change in Pigmentation, Changing Lesions, Dry Skin, Erythema, Furuncle, Hirsutism, Lesions, New Lesions, Non-Healing Lesions, Photosensitivity, Pruritus, Rash, Skin Pain, Skin Ulcer, Sores, Striae, Swelling , Unusual Bruising, Wounds, Jaundice, Other - Neurological Neurological: absent: As Per HPI, Abnormal Gait, Abnormal Hearing, Abnormal Movements, Abnormal Speech, Behavioral Changes, Burning Sensations, Confusion, Convulsions, Disequilibrium, Dizziness, Numbness, Focal Weakness, Frequent Falls , Headaches, Lack of Coordination, Loss of Vision, Memory Loss, Paresthesias, Radicular Pain, Restless Legs, Sensory Deficit, Syncope, Tingling, Tremor, Vertigo, Weakness, Other Visual Disturbances, Other - Psychiatric Psychiatric: absent: As Per HPI, Abnormal Sleep Pattern, Anhedonia, Anxiety, Auditory Hallucinations, Behavioral Changes, Change in Appetite, Change in Libido, Confusion, Depression, Difficulty Concentrating, Hallucinations, Homicidal Ideation, Hopelessness, Irritability, Memory Loss, Mood Swings, Panic Attacks, Paranoia, Suicidal Ideation, Visual Hallucinations, Tactile Hallucinations, Other - Endocrine Endocrine: absent: As Per HPI, Change in Body Appearance, Change in Libido, Cold Intolorance, Deepening of Voice, Excessive Sweating, Fatigue, Flushing, Heat Intolorance, Increase in Ring/Shoe/Hat Size, Palpitations, Polydipsia, Polyphagia, Polyuria, Other - Hematologic/Lymphatic Hematologic: absent: As Per HPI, Easy Bleeding, Easy Bruising, Lymphadenopathy, Other Past Patient History - Infectious Disease Hx of Infectious Diseases: None - Tetanus Immunizations Tetanus Immunization: Unknown - Past Medical History & Family History Past Medical History?: Yes - Past Social History Smoking Status: Never Smoked - CARDIAC Hx Cardiac Disorders: Yes Hx Congestive Heart Failure: Yes Hx Hypercholesterolemia: Yes Hx Hypertension: Yes Hx Pacemaker: Yes Hx Peripheral Edema: Yes - PULMONARY Hx Respiratory Disorders: Yes Hx Asthma: Yes Hx Bronchitis: Yes Hx Chronic Obstructive Pulmonary Disease (COPD): Yes Hx Pneumonia: Yes - NEUROLOGICAL Hx Neurological Disorder: Yes Hx Dementia: Yes Hx Seizures: Yes - HEENT Hx HEENT Problems: Yes Hx Blind: Yes (left eye) Other/Comment: Hard of hear R ear., left eye blind - RENAL Hx Chronic Kidney Disease: Yes (mild renal insufficiecy.) - ENDOCRINE/METABOLIC Hx Hypothyroidism: Yes - HEMATOLOGICAL/ONCOLOGICAL Hx Blood Disorders: Yes Hx AIDS: No Hx Anemia: Yes Hx Human Immunodeficiency Virus (HIV): No - INTEGUMENTARY Hx Dermatological Problems: No - MUSCULOSKELETAL/RHEUMATOLOGICAL Hx Musculoskeletal Disorders: Yes Hx Arthritis: Yes Hx Back Pain: Yes Hx Falls: No Hx Rheumatoid Arthritis: No - GASTROINTESTINAL Hx Gastrointestinal Disorders: Yes Hx Gastritis: Yes - GENITOURINARY/GYNECOLOGICAL Hx Genitourinary Disorders: Yes Hx Incontinence: Yes Hx Urinary Tract Infection: Yes - PSYCHIATRIC Hx Psychophysiologic Disorder: Yes Hx Anxiety: Yes Hx Depression: Yes Hx Substance Use: No - SURGICAL HISTORY Hx Surgeries: Yes Hx Cholecystectomy: Yes Hx Coronary Artery Bypass Graft: Yes (x4) Hx Coronary Stent: Yes - ANESTHESIA Hx Anesthesia: Yes Hx Anesthesia Reactions: No Hx Malignant Hyperthermia: No Meds Allergies/Adverse Reactions: Allergies Allergy/AdvReac Type Severity Reaction Status Date / Time kiwi Allergy Mild RASH Verified 04/19/18 21:53 morphine Allergy Mild RASH Verified 04/19/18 21:53 Penicillins Allergy Mild RASH Verified 04/19/18 21:53 pineapple Allergy Mild RASH Verified 04/19/18 21:53 watermelon Allergy Mild RASH Verified 04/19/18 21:53 - Medications Medications: Current Medications Acetaminophen/Codeine Phosphate (Tylenol/Codeine 300 Mg/30 Mg) 1 tab PO Q6 PRN PRN Reason: Pain, severe (8-10) Alprazolam (Xanax) 0.25 mg PO BID [facility] Stop: 04/27/18 17:01 Last Admin: 04/20/18 17:23 Dose: 0.25 mg Amlodipine Besylate (Norvasc) 10 mg PO DAILY [facility] Last Admin: 04/20/18 13:59 Dose: 10 mg Aspirin (Ecotrin) 81 mg PO DAILY [facility] Last Admin: 04/20/18 14:02 Dose: 81 mg Atorvastatin Calcium (Lipitor) 40 mg PO DAILY [facility] Last Admin: 04/20/18 13:58 Dose: 40 mg Calcium/Vitamin D (Oyster Shell Calcium/Vitamin D 500 Mg-200 Iu) 1 tab PO TID [facility] Last Admin: 04/20/18 17:16 Dose: 1 tab Carvedilol (Coreg) 3.125 mg PO BID [facility] Last Admin: 04/20/18 17:17 Dose: 3.125 mg Dextrose (Dextrose 50% Inj) 0 ml IV STAT PRN; Protocol PRN Reason: Hypoglycemia Protocol Dextrose (Glutose 15) 0 gm PO ONCE PRN; Protocol PRN Reason: Hypoglycemia Protocol Docusate Sodium (Colace) 100 mg PO DAILY PRN PRN Reason: Constipation Enoxaparin Sodium (Lovenox) 40 mg SC DAILY [facility] PRN Reason: Protocol Last Admin: 04/20/18 13:59 Dose: 40 mg Ferrous Sulfate (Feosol) 325 mg PO DAILY [facility] Last Admin: 04/20/18 13:58 Dose: 325 mg Furosemide (Lasix) 20 mg PO QOTHERDAY [facility] Gabapentin (Neurontin) 100 mg PO BID [facility] Last Admin: 04/20/18 17:16 Dose: 100 mg Glucagon (Glucagen Diagnostic Kit) 0 mg IM STAT PRN; Protocol PRN Reason: Hypoglycemia Protocol Home Med (Ranolazine [Ranexa]) 1,000 mg PO BID [facility] Last Admin: 04/20/18 17:17 Dose: 1,000 mg Ciprofloxacin (Cipro 200mg/100ml D5w) 100 mls @ 100 mls/hr IVPB Q12 [facility] PRN Reason: Protocol Last Admin: 04/20/18 13:56 Dose: Not Given Insulin Lispro Protam/Lispro Human (Humalog Mix 75/25) 0 units SC BID [facility] PRN Reason: Protocol Last Admin: 04/20/18 17:19 Dose: 3 units Loratadine (Claritin) 10 mg PO DAILY [facility] Last Admin: 04/20/18 13:57 Dose: 10 mg Phenazopyridine HCl (Pyridium) 200 mg PO BID [facility] Last Admin: 04/20/18 17:15 Dose: 200 mg Physical Exam - Constitutional Appears: Non-toxic - Head Exam Head Exam: NORMAL INSPECTION - ENT Exam ENT Exam: Mucous Membranes Moist - Neck Exam Neck exam: Positive for: Lymphadenopathy - Respiratory Exam Respiratory Exam: NORMAL BREATHING PATTERN - Cardiovascular Exam Cardiovascular Exam: REGULAR RHYTHM - GI/Abdominal Exam GI & Abdominal Exam: Normal Bowel Sounds - Rectal Exam Rectal Exam: Deferred - Extremities Exam Extremities exam: Positive for: pedal edema - Back Exam Back exam: NORMAL INSPECTION - Neurological Exam Neurological exam: Alert, Oriented x3 - Psychiatric Exam Psychiatric exam: Normal Affect - Skin Skin Exam: Normal Color Results - Vital Signs Recent Vital Signs: Last Vital Signs Temp 97.8 F 04/20/18 19:30 Pulse 71 04/20/18 19:30 Resp 20 04/20/18 19:30 BP 130/73 04/20/18 19:30 Pulse Ox 96 04/20/18 19:30 - Labs Result Diagrams: 04/19/18 22:58 04/19/18 22:58 Labs: Laboratory Results - last 24 hr 04/19/18 04/19/18 04/19/18 21:52 22:58 22:58 WBC 6.6 RBC 3.49 L Hgb 11.2 L Hct 33.3 L MCV 95.4 MCH 32.2 H MCHC 33.8 RDW 13.4 Plt Count 154 MPV 8.9 Neut % (Auto) 52.2 Lymph % (Auto) 33.8 [place] % (Auto) 7.9 Eos % (Auto) 5.0 H Baso % (Auto) 1.1 Neut # (Auto) 3.5 Lymph # (Auto) 2.2 [place] # (Auto) 0.5 Eos # (Auto) 0.3 Baso # (Auto) 0.1 PT INR APTT Sodium 136 Potassium 5.5 H Chloride 100 Carbon Dioxide 31 H Anion Gap 11 BUN 21 H Creatinine 1.4 H Est GFR ( Amer) 44 Est GFR (Non-Af Amer) 36 POC Glucose (mg/dL) 266 H Random Glucose 269 H Lactic Acid Calcium 9.2 Magnesium 2.1 Total Bilirubin 0.4 AST 26 ALT 29 Alkaline Phosphatase 122 Total Creatine Kinase 134 Troponin I < 0.0120 NT-Pro-B Natriuret Pep 485 Total Protein 6.5 Albumin 3.1 L Globulin 3.4 Albumin/Globulin Ratio 0.9 L TSH 3rd Generation 15.70 H Urine Color Urine Clarity Urine pH Ur Specific [place] Urine Protein Urine Glucose (UA) Urine Ketones Urine Blood Urine Nitrate Urine Bilirubin Urine Urobilinogen Ur Leukocyte Esterase Urine RBC (Auto) Urine WBC Clumps (Auto) Urine Microscopic WBC Ur Squamous Epith Cells Urine Bacteria Influenza Typ A,B (EIA) 04/19/18 04/19/18 04/19/18 22:58 22:58 22:58 WBC RBC Hgb Hct MCV MCH MCHC RDW Plt Count MPV Neut % (Auto) Lymph % (Auto) [place] % (Auto) Eos % (Auto) Baso % (Auto) Neut # (Auto) Lymph # (Auto) [place] # (Auto) Eos # (Auto) Baso # (Auto) PT 11.4 INR 1.0 APTT 31.5 Sodium Potassium Chloride Carbon Dioxide Anion Gap BUN Creatinine Est GFR ( Amer) Est GFR (Non-Af Amer) POC Glucose (mg/dL) Random Glucose Lactic Acid 1.0 Calcium Magnesium Total Bilirubin AST ALT Alkaline Phosphatase Total Creatine Kinase Troponin I NT-Pro-B Natriuret Pep Total Protein Albumin Globulin Albumin/Globulin Ratio TSH 3rd Generation Urine Color Urine Clarity Urine pH Ur Specific [place] Urine Protein Urine Glucose (UA) Urine Ketones Urine Blood Urine Nitrate Urine Bilirubin Urine Urobilinogen Ur Leukocyte Esterase Urine RBC (Auto) Urine WBC Clumps (Auto) Urine Microscopic WBC Ur Squamous Epith Cells Urine Bacteria Influenza Typ A,B (EIA) Negative for flu a/b 04/20/18 04/20/18 04/20/18 00:10 07:34 12:29 WBC RBC Hgb Hct MCV MCH MCHC RDW Plt Count MPV Neut % (Auto) Lymph % (Auto) [place] % (Auto) Eos % (Auto) Baso % (Auto) Neut # (Auto) Lymph # (Auto) [place] # (Auto) Eos # (Auto) Baso # (Auto) PT INR APTT Sodium Potassium Chloride Carbon Dioxide Anion Gap BUN Creatinine Est GFR ( Amer) Est GFR (Non-Af Amer) POC Glucose (mg/dL) 227 H 343 H Random Glucose Lactic Acid Calcium Magnesium Total Bilirubin AST ALT Alkaline Phosphatase Total Creatine Kinase Troponin I NT-Pro-B Natriuret Pep Total Protein Albumin Globulin Albumin/Globulin Ratio TSH 3rd Generation Urine Color Sarah Urine Clarity Turbid Urine pH 5.0 Ur Specific [place] 1.012 Urine Protein 100 Urine Glucose (UA) >=500 Urine Ketones Negative Urine Blood Small Urine Nitrate Negative Urine Bilirubin Negative Urine Urobilinogen 0.2-1.0 Ur Leukocyte Esterase Large Urine RBC (Auto) 9 H Urine WBC Clumps (Auto) Many H Urine Microscopic WBC 630 H Ur Squamous Epith Cells 2 Urine Bacteria Many H Influenza Typ A,B (EIA) 04/20/18 14:34 WBC RBC Hgb Hct MCV MCH MCHC RDW Plt Count MPV Neut % (Auto) Lymph % (Auto) [place] % (Auto) Eos % (Auto) Baso % (Auto) Neut # (Auto) Lymph # (Auto) [place] # (Auto) Eos # (Auto) Baso # (Auto) PT INR APTT Sodium Potassium Chloride Carbon Dioxide Anion Gap BUN Creatinine Est GFR ( Amer) Est GFR (Non-Af Amer) POC Glucose (mg/dL) Random Glucose Lactic Acid Calcium Magnesium Total Bilirubin AST ALT Alkaline Phosphatase Total Creatine Kinase Troponin I < 0.0120 NT-Pro-B Natriuret Pep Total Protein Albumin Globulin Albumin/Globulin Ratio TSH 3rd Generation Urine Color Urine Clarity Urine pH Ur Specific [place] Urine Protein Urine Glucose (UA) Urine Ketones Urine Blood Urine Nitrate Urine Bilirubin Urine Urobilinogen Ur Leukocyte Esterase Urine RBC (Auto) Urine WBC Clumps (Auto) Urine Microscopic WBC Ur Squamous Epith Cells Urine Bacteria Influenza Typ A,B (EIA) - EKG Data EKG Interpreted by: Myself Assessment & Plan (1) Chest pain Assessment and Plan: no currnt chest pain. cardaic enzymes are negative. continue medical therapy. outpatient follow up Status: Acute Priority: High (2) HTN (hypertension) Assessment and Plan: blood pressure control Status: Chronic Priority: Medium (3) Hypercholesterolemia Status: Chronic Priority: Low
[2018-04-21] MEDS: Insulin Lispro Mix 75/25 100 units/ml (HumaLog) 10ml SC SCH (09:00)
[2018-04-21] MEDS: Ciprofloxacin 200mg/100ml D5W 100 ML IVPB SCH (09:00)
[2018-04-21] MEDS: Patient's Own Med (Ranolazine [Ranexa] 1,000 MG) PO SCH (09:45)
[2018-04-21] MEDS: Calcium-Vit D 500 mg-200 Units Tab UD PO SCH (09:45)
[2018-04-21] MEDS: Enoxaparin 40 mg Syringe SC SCH (09:45)
[2018-04-21 10:12] LABS: HEMOGLOBIN 11.6 g/dL (12.0-16.0); MEAN CELL VOLUME 94.7 fl (81.0-99.0); MEAN CORPUSCULAR HEMOGLOBIN 32.2 pg (27.0-31.0); RBC 3.6 Mil/uL (3.80-5.20); RED CELL DISTRIBUTION WIDTH 13.6 % (11.5-14.5); WHITE BLOOD COUNT 6.8 K/uL (4.8-10.8)
[2018-04-21 10:23] LABS: CALCIUM 9.6 mg/dL (8.4-10.2)
--- NOTE | 2018-04-21 11:45 | CT ---
Date of service: 04/21/2018 PROCEDURE: CT Chest without contrast HISTORY: SOB COMPARISON: Noncontrast chest CT 11/01/2017. TECHNIQUE: Contiguous axial images were obtained through the chest without intravenous contrast enhancement. Sagittal and coronal reconstructions were performed. Radiation dose (DLP): 446.84 mGy-cm. This CT exam was performed using one or more of the following dose reduction techniques: Automated exposure control, adjustment of the mA and/or kV according to patient size, and/or use of iterative reconstruction technique. FINDINGS: LUNGS: Limited bilateral basilar dependent atelectasis is reiterated though somewhat diminished in the interval linear limited underlying fibrotic changes likely present greater the left and right once again. No definite acute infiltrate bilaterally. Limited atelectasis abutting the superior portion left major fissure is favored over thickening of the fissure. MEDIASTINUM: Unremarkable thoracic aorta. No aneurysm. Cardiomegaly appears stable. Multifocal coronary artery calcifications are reiterated Main pulmonary artery unremarkable. No vascular congestion. No interval significant lymphadenopathy. Sternotomy wires again noted. PLEURA: No pleural fluid. No pneumothorax. BONES: No fracture. No destructive lesion. UPPER ABDOMEN: Prior cholecystectomy reiterated as well as vascular calcifications. OTHER FINDINGS: None. IMPRESSION: 1. Limited bibasilar dependent atelectasis identified, likely also affecting dependent portion of left upper lobe as well. No definitive infiltrates bilaterally. Underlying bilateral basilar fibrosis, left greater than right. 2. Stable cardiomegaly. No pleural or pericardial effusion. 3. Incidental prior cholecystectomy again evident.
[2018-04-21 16:08] VITALS: BP 111/70; PULSE 75; RESP 20; TEMP 97.5; O2SAT 99
--- NOTE | 2018-04-21 16:19 | CP.PCM.PN ---
Objective - Vital Signs/Intake and Output Vital Signs (last 24 hours): Temp Pulse Resp BP Pulse Ox 97.5 F L 75 20 111/70 99 04/21/18 16:08 04/21/18 16:08 04/21/18 16:08 04/21/18 16:08 04/21/18 16:08 - Medications Medications: Current Medications Acetaminophen/Codeine Phosphate (Tylenol/Codeine 300 Mg/30 Mg) 1 tab PO Q6 PRN PRN Reason: Pain, severe (8-10) Alprazolam (Xanax) 0.25 mg PO BID [facility] Stop: 04/27/18 17:01 Last Admin: 04/21/18 10:12 Dose: 0.25 mg Amlodipine Besylate (Norvasc) 10 mg PO DAILY [facility] Last Admin: 04/21/18 09:45 Dose: 10 mg Aspirin (Ecotrin) 81 mg PO DAILY [facility] Last Admin: 04/21/18 09:59 Dose: 81 mg Atorvastatin Calcium (Lipitor) 40 mg PO DAILY [facility] Last Admin: 04/21/18 09:45 Dose: 40 mg Calcium/Vitamin D (Oyster Shell Calcium/Vitamin D 500 Mg-200 Iu) 1 tab PO TID [facility] Last Admin: 04/21/18 09:45 Dose: 1 tab Carvedilol (Coreg) 3.125 mg PO BID [facility] Last Admin: 04/21/18 09:59 Dose: 3.125 mg Dextrose (Dextrose 50% Inj) 0 ml IV STAT PRN; Protocol PRN Reason: Hypoglycemia Protocol Dextrose (Glutose 15) 0 gm PO ONCE PRN; Protocol PRN Reason: Hypoglycemia Protocol Docusate Sodium (Colace) 100 mg PO DAILY PRN PRN Reason: Constipation Enoxaparin Sodium (Lovenox) 40 mg SC DAILY [facility] PRN Reason: Protocol Last Admin: 04/21/18 09:45 Dose: 40 mg Ferrous Sulfate (Feosol) 325 mg PO DAILY [facility] Last Admin: 04/21/18 09:59 Dose: 325 mg Furosemide (Lasix) 20 mg PO QOTHERDAY [facility] Gabapentin (Neurontin) 100 mg PO BID [facility] Last Admin: 04/21/18 09:45 Dose: Not Given Glucagon (Glucagen Diagnostic Kit) 0 mg IM STAT PRN; Protocol PRN Reason: Hypoglycemia Protocol Home Med (Ranolazine [Ranexa]) 1,000 mg PO BID [facility] Last Admin: 04/21/18 09:45 Dose: 1,000 mg Ciprofloxacin (Cipro 200mg/100ml D5w) 100 mls @ 100 mls/hr IVPB Q12 [facility] PRN Reason: Protocol Last Admin: 04/21/18 09:00 Dose: 100 mls/hr Insulin Lispro Protam/Lispro Human (Humalog Mix 75/25) 0 units SC BID [facility] PRN Reason: Protocol Last Admin: 04/21/18 09:00 Dose: Not Given Loratadine (Claritin) 10 mg PO DAILY [facility] Last Admin: 04/21/18 09:58 Dose: 10 mg Phenazopyridine HCl (Pyridium) 200 mg PO BID [facility] Last Admin: 04/21/18 09:45 Dose: 200 mg - Labs Labs: 04/21/18 10:00 04/21/18 10:00 PT 11.4 Seconds (9.8-13.1) 04/19/18 22:58 INR 1.0 (0.9-1.2) 04/19/18 22:58 APTT 31.5 Seconds (25.6-37.1) 04/19/18 22:58 Assessment and Plan (1) Chest pain Status: Acute (2) CAD (coronary artery disease) Status: Chronic (3) H/O heart artery stent Status: Acute (4) Hx of CABG Status: Acute (5) HTN (hypertension) Status: Acute (6) Diabetes mellitus Status: Acute (7) Hyperglycemia Status: Acute (8) PVD (peripheral vascular disease) Status: Chronic (9) DM neuropathy, type II diabetes mellitus Status: Chronic (10) DM retinopathy Status: Chronic (11) UTI (urinary tract infection) Status: Acute (12) CKD (chronic kidney disease) Status: Acute (13) High cholesterol Status: Chronic (14) Osteoarthritis Status: Chronic
--- NOTE | 2018-04-21 18:34 | CP.PCM.DIS ---
Provider - Provider Date of Admission: 04/19/18 23:34 Attending physician: Sridhar Oliver MD Diagnosis - Discharge Diagnosis (1) Chest pain Status: Acute (2) CAD (coronary artery disease) Status: Chronic (3) H/O heart artery stent Status: Acute (4) Hx of CABG Status: Acute (5) HTN (hypertension) Status: Acute (6) Diabetes mellitus Status: Acute (7) Hyperglycemia Status: Acute (8) PVD (peripheral vascular disease) Status: Chronic (9) DM neuropathy, type II diabetes mellitus Status: Chronic (10) DM retinopathy Status: Chronic (11) UTI (urinary tract infection) Status: Acute (12) CKD (chronic kidney disease) Status: Acute (13) High cholesterol Status: Chronic (14) Osteoarthritis Status: Chronic Hospital Course - Lab Results Lab Results: Micro Results 04/20/18 00:10 Urine,Clean Catch Urine Culture - Preliminary Gram Negative Luis Most Recent Lab Values WBC 6.8 K/uL (4.8-10.8) 04/21/18 10:00 RBC 3.60 Mil/uL (3.80-5.20) L 04/21/18 10:00 Hgb 11.6 g/dL (12.0-16.0) L 04/21/18 10:00 Hct 34.1 % (34.0-47.0) 04/21/18 10:00 MCV 94.7 fl (81.0-99.0) 04/21/18 10:00 MCH 32.2 pg (27.0-31.0) H 04/21/18 10:00 MCHC 34.0 g/dL (33.0-37.0) 04/21/18 10:00 RDW 13.6 % (11.5-14.5) 04/21/18 10:00 Plt Count 162 K/uL (130-400) 04/21/18 10:00 MPV 8.9 fl (7.2-11.7) 04/19/18 22:58 Neut % (Auto) 52.2 % (50.0-75.0) 04/19/18 22:58 Lymph % (Auto) 33.8 % (20.0-40.0) 04/19/18 22:58 [place] % (Auto) 7.9 % (0.0-10.0) 04/19/18 22:58 Eos % (Auto) 5.0 % (0.0-4.0) H 04/19/18 22:58 Baso % (Auto) 1.1 % (0.0-2.0) 04/19/18 22:58 Neut # (Auto) 3.5 K/uL (1.8-7.0) 04/19/18 22:58 Lymph # (Auto) 2.2 K/uL (1.0-4.3) 04/19/18 22:58 [place] # (Auto) 0.5 K/uL (0.0-0.8) 04/19/18 22:58 Eos # (Auto) 0.3 K/uL (0.0-0.7) 04/19/18 22:58 Baso # (Auto) 0.1 K/uL (0.0-0.2) 04/19/18 22:58 PT 11.4 Seconds (9.8-13.1) 04/19/18 22:58 INR 1.0 (0.9-1.2) 04/19/18 22:58 APTT 31.5 Seconds (25.6-37.1) 04/19/18 22:58 Sodium 139 mmol/l (132-148) 04/21/18 10:00 Potassium 4.6 MMOL/L (3.6-5.0) 04/21/18 10:00 Chloride 99 mmol/L (98-107) 04/21/18 10:00 Carbon Dioxide 35 mmol/L (22-30) H 04/21/18 10:00 Anion Gap 10 (10-20) 04/21/18 10:00 BUN 18 mg/dl (7-17) H 04/21/18 10:00 Creatinine 1.3 mg/dl (0.7-1.2) H 04/21/18 10:00 Est GFR ( Amer) 48 04/21/18 10:00 Est GFR (Non-Af Amer) 40 04/21/18 10:00 POC Glucose (mg/dL) 150 mg/dL (65-110) H 04/21/18 05:30 Random Glucose 243 mg/dL (65-105) H 04/21/18 10:00 Lactic Acid 1.0 MMOL/L (0.7-2.1) 04/19/18 22:58 Calcium 9.6 mg/dL (8.4-10.2) 04/21/18 10:00 Magnesium 2.1 MG/DL (1.6-2.3) 04/19/18 22:58 Total Bilirubin 0.4 mg/dl (0.2-1.3) 04/19/18 22:58 AST 26 U/L (14-36) 04/19/18 22:58 ALT 29 U/L (9-52) 04/19/18 22:58 Alkaline Phosphatase 122 U/L (38-126) 04/19/18 22:58 Total Creatine Kinase 134 U/L (30-135) 04/19/18 22:58 Troponin I < 0.0120 ng/mL (0.00-0.120) 04/20/18 22:30 NT-Pro-B Natriuret Pep 485 pg/ml (0-900) 04/19/18 22:58 Total Protein 6.5 G/DL (6.3-8.2) 04/19/18 22:58 Albumin 3.1 g/dL (3.5-5.0) L 04/19/18 22:58 Globulin 3.4 gm/dL (2.2-3.9) 04/19/18 22:58 Albumin/Globulin Ratio 0.9 (1.0-2.1) L 04/19/18 22:58 TSH 3rd Generation 15.70 mIU/ML (0.46-4.68) H 04/19/18 22:58 Urine Color Sarah (YELLOW) 04/20/18 00:10 Urine Clarity Turbid (Clear) 04/20/18 00:10 Urine pH 5.0 (5.0-8.0) 04/20/18 00:10 Ur Specific [place] 1.012 (1.003-1.030) 04/20/18 00:10 Urine Protein 100 mg/dL (NEGATIVE) 04/20/18 00:10 Urine Glucose (UA) >=500 mg/dL (Normal) 04/20/18 00:10 Urine Ketones Negative mg/dL (NEGATIVE) 04/20/18 00:10 Urine Blood Small (NEGATIVE) 04/20/18 00:10 Urine Nitrate Negative (NEGATIVE) 04/20/18 00:10 Urine Bilirubin Negative (NEGATIVE) 04/20/18 00:10 Urine Urobilinogen 0.2-1.0 mg/dL (0.2-1.0) 04/20/18 00:10 Ur Leukocyte Esterase Large [place]/uL (Negative) 04/20/18 00:10 Urine RBC (Auto) 9 /hpf (0-3) H 04/20/18 00:10 Urine WBC Clumps (Auto) Many /hpf (NONE) H 04/20/18 00:10 Urine Microscopic WBC 630 /hpf (0-5) H 04/20/18 00:10 Ur Squamous Epith Cells 2 /hpf (0-5) 04/20/18 00:10 Urine Bacteria Many (<OCC) H 04/20/18 00:10 Influenza Typ A,B (EIA) Negative for flu a/b (NEGATIVE) 04/19/18 22:58 Discharge Exam - Head Exam Head Exam: NORMAL INSPECTION Discharge Plan - Discharge Medications Prescriptions: Ciprofloxacin [Cipro] 500 mg PO Q12 #14 tab - Follow Up Plan Condition: FAIR Disposition: HOME/ ROUTINE Instructions: Urinary Tract Infection, Adult (DC) Additional Instructions: follow up with in 1 week Referrals: Sridhar Oliver MD [Family Provider] -
--- NOTE | 2018-04-22 15:07 | CP.PCM.PCO ---
Physician Communication Note - Physician Communication Note Physician Communication Note: Was called by lab patient had ESBL+ UCX. Dr. Oliver informed by Kathryn
== END 2018-04-21 16:40 | disposition home or self-care (01) ==
LOC: H.ER 21:49 → H.ERHOLD 23:34 → H.TEL 04-20 12:05
PROVIDERS: ADMIT Internal Medicine Pulmonary Disease; ATTEND Internal Medicine Pulmonary Disease
DX: N39.0 Urinary tract infection, site not specified (principal); B96.1 Klebsiella pneumoniae [K. pneumoniae] as the cause of diseases classified elsewhere; R07.9 Chest pain, unspecified; E11.65 Type 2 diabetes mellitus with hyperglycemia; E11.51 Type 2 diabetes mellitus with diabetic peripheral angiopathy without gangrene; E11.40 Type 2 diabetes mellitus with diabetic neuropathy, unspecified; E11.22 Type 2 diabetes mellitus with diabetic chronic kidney disease; E11.319 Type 2 diabetes mellitus with unspecified diabetic retinopathy without macular edema; E78.5 Hyperlipidemia, unspecified; E03.9 Hypothyroidism, unspecified; E78.00 Pure hypercholesterolemia, unspecified; F03.90 Unspecified dementia, unspecified severity, without behavioral disturbance, psychotic disturbance, mood disturbance, and anxiety; I13.0 Hypertensive heart and chronic kidney disease with heart failure and stage 1 through stage 4 chronic kidney disease, or unspecified chronic kidney disease; I25.10 Atherosclerotic heart disease of native coronary artery without angina pectoris; N18.9 Chronic kidney disease, unspecified; J44.9 Chronic obstructive pulmonary disease, unspecified; M19.90 Unspecified osteoarthritis, unspecified site; I50.9 Heart failure, unspecified; H54.62 Unqualified visual loss, left eye, normal vision right eye; F41.9 Anxiety disorder, unspecified; Z95.1 Presence of aortocoronary bypass graft; Z95.5 Presence of coronary angioplasty implant and graft; Z95.0 Presence of cardiac pacemaker; Z87.01 Personal history of pneumonia (recurrent); Z87.440 Personal history of urinary (tract) infections; Z74.01 Bed confinement status; Z79.82 Long term (current) use of aspirin; Z88.6 Allergy status to analgesic agent; Z88.0 Allergy status to penicillin
CPT/HCPCS: 36415; 71045; 71250; 80048; 80053; 81003; 82550; 82948; 83605; 83735; 83880; 84443; 84484; 85025; 85027; 85610; 85730; 87086; 87804; 92526; 92610; 93005; 97163; 99285; G0378; G8978; G8979; G8996; G8997; G8998; J0744; J1650

== ENCOUNTER 2018-04-22 16:32 | Inpatient (IN) | payer MEDICAID ==
[2018-04-22 16:32] VITALS: BMI 29.3
[2018-04-22] MEDS ORDERED: Gentamicin 80 mg/2mL Inj. IVPB STA (17:07)
--- NOTE | 2018-04-22 17:19 | ED PDOC ---
HPI: Female Pain Time Seen by Provider: 04/22/18 16:45 Chief Complaint (Nursing): Abnormal Labs Chief Complaint (Provider): dysuria and abdominal pain History Per: Patient History/Exam Limitations: no limitations Onset/Duration Of Symptoms: Days Current Symptoms Are (Timing): Still Present Associated Symptoms: Urinary Symptoms (dysuria). denies: Fever, Chills, Nausea , Vomiting, Diarrhea, Other (SOB) Additional Complaint(s): Jennifer Crouch is a 77 year old female, with a past medical history of HTN, CAD, CHF, CABG, coronary stents, hypercholesterolemia, and diabetes, who was told to come to the emergency department due to abnormal labs. Patient states she was in the hospital for several days and was discharged yesterday with Rx for cipro but was told to come back today due to abnormal labs. Patient is currently complaining of dysuria and lower abdominal pain. Patient has still not taken her cipro. She denies any fever, chills, nausea, vomit, diarrhea or shortness of breath. No further medical complaints. PMD: Sridhar Oliver Past Medical History Reviewed: Historical Data, Nursing Documentation, Vital Signs Vital Signs: Last Vital Signs Temp 98.4 F 04/22/18 16:35 Pulse 76 04/22/18 16:35 Resp 18 04/22/18 16:35 BP 146/60 04/22/18 16:35 Pulse Ox 99 04/22/18 16:35 - Medical History PMH: Anemia, Anxiety, Arthritis, Asthma, Back Problems, Bronchitis, CAD, CHF, COPD, Dementia, Depression, Diabetes, Gastritis, HTN, Hypercholesterolemia, Hyperlipidemia, Hypothyroidism, Peripheral Edema, Pneumonia, Chronic Kidney Disease (mild renal insufficiecy.), Seizures Denies: HIV, Rheumatoid Arthritis - Surgical History Surgical History: CABG (x4), Cholecystectomy, Coronary Stent, Pacemaker - Family History Family History: States: Unknown Family Hx - Home Medications Home Medications: Ambulatory Orders Medication Instructions Recorded Aspirin [Ecotrin] 81 mg PO DAILY 01/12/17 Carvedilol [Coreg] 3.125 mg PO DAILY 01/12/17 Ranolazine [Ranexa] 1,000 mg PO BID 01/12/17 Atorvastatin [Lipitor] 40 mg PO HS 02/01/17 Docusate [Colace] 100 mg PO DAILY 08/30/17 amLODIPine [Norvasc] 10 mg PO DAILY #30 tab 11/05/17 Acetaminophen/Codeine 1 tab PO Q6 PRN 03/12/18 [Tylenol/Codeine 300 MG/30 MG] Ferrous Sulfate [Feosol] 325 mg PO DAILY 03/12/18 Furosemide [Lasix] 20 mg PO QOTHERDAY 03/12/18 Gabapentin [Neurontin] 100 mg PO BID PRN 03/12/18 Loratadine [Claritin] 10 mg PO DAILY 03/12/18 Phenazopyridine [Pyridium] 200 mg PO BID PRN 03/12/18 ALPRAZolam [Xanax] 0.25 mg PO BID PRN 04/20/18 Ciprofloxacin [Cipro] 500 mg PO Q12 #14 tab 04/21/18 - Allergies Allergies/Adverse Reactions: Allergies Allergy/AdvReac Type Severity Reaction Status Date / Time kiwi Allergy Mild RASH Verified 04/19/18 21:53 morphine Allergy Mild RASH Verified 04/19/18 21:53 Penicillins Allergy Mild RASH Verified 04/19/18 21:53 pineapple Allergy Mild RASH Verified 04/19/18 21:53 watermelon Allergy Mild RASH Verified 04/19/18 21:53 Review of Systems ROS Statement: Except As Marked, All Systems Reviewed And Found Negative Constitutional: Negative for: Fever, Chills Respiratory: Negative for: Shortness of Breath Gastrointestinal: Positive for: Abdominal Pain (lower ). Negative for: Nausea, Vomiting, Diarrhea Genitourinary Female: Positive for: Dysuria Physical Exam - Reviewed Nursing Documentation Reviewed: Yes Vital Signs Reviewed: Yes - Physical Exam Appears: Positive for: No Acute Distress Head Exam: Positive for: ATRAUMATIC, NORMAL INSPECTION, NORMOCEPHALIC Skin: Positive for: Normal Color, Warm, Dry Eye Exam: Positive for: Normal appearance, EOMI, PERRL Neck: Positive for: Painless ROM, Supple Cardiovascular/Chest: Positive for: Regular Rate, Rhythm. Negative for: Murmur Respiratory: Positive for: Normal Breath Sounds. Negative for: Respiratory Distress Gastrointestinal/Abdominal: Positive for: Tenderness (suprapubic and lower quadrant). Negative for: Guarding, Rebound Extremity: Positive for: Normal ROM (upper and lower extremities). Negative for : Deformity, Swelling Neurologic/Psych: Positive for: Alert, Oriented. Negative for: Motor/Sensory Deficits - Laboratory Results Result Diagrams: 04/22/18 17:30 04/22/18 17:30 - ECG O2 Sat by Pulse Oximetry: 99 (RA) Pulse Ox Interpretation: Normal Medical Decision Making Medical Decision Making: Time: 16:45 Initial Impression: UTI, abnormal labs Initial Plan: --VBG --EKG --CMP --Magnesium --Phosphorus --CBC w/ differential --PTT --PT --Chest portable [RAD] --Lactated Ringers 1,000 ml IV --Blood culture --Urine culture --Urinalysis --Reevaluation 18:18 CXR FINDINGS: LUNGS: No active pulmonary disease. PLEURA: No significant pleural effusion identified, no pneumothorax apparent. CARDIOVASCULAR: No radiographic findings to suggest acute or significant cardiovascular disease. Incidental Finding(s): Postoperative changes related to sternotomy. OSSEOUS STRUCTURES: No significant abnormalities. VISUALIZED UPPER ABDOMEN: Normal. OTHER FINDINGS: None. IMPRESSION: No active disease. No significant interval change compared to the prior examination(s). ----- Scribe Attestation: Documented by Ashkan Reilly, acting as a scribe for Klarissa Hong MD. Provider Scribe Attestation: All medical record entries made by the Scribe were at my direction and personally dictated by me. I have reviewed the chart and agree that the record accurately reflects my personal performance of the history, physical exam, medical decision making, and the department course for this patient. I have also personally directed, reviewed, and agree with the discharge instructions and disposition. Disposition - Clinical Impression Clinical Impression: UTI due to Klebsiella species - Patient ED Disposition Is Patient to be Admitted: Yes Doctor Will See Patient In The: Hospital - Disposition Disposition: Transfer of Care Disposition Time: 19:00 Condition: FAIR Forms: [employer] ([place]) - Pt Status Changed To: Hospital Disposition Of: Inpatient - Admit Certification Admit to Inpatient:: After my assessment, the patient will require hospitalization for at least two midnights. This is because of the severity of symptoms shown, intensity of services needed, and/or the medical risk in this patient being treated as an outpatient. - POA Present On Arrival: None
[2018-04-22] MEDS ORDERED: SODIUM CHLORIDE 0.9% IVPB ONE (17:30)
[2018-04-22] MEDS ORDERED: GENTAMICIN IVPB ONE (17:30)
[2018-04-22 17:44] LABS: VENOUS BLOOD GAS BASE EXCESS 13.1 mmol/L (0.0-2.0); VENOUS BLOOD GAS PCO2 71 mmHg (40-60); VENOUS BLOOD GAS PO2 38 mm/Hg (30-55); VENOUS BLOOD PH 7.37 (7.32-7.43)
[2018-04-22 17:55] LABS: BASO # 0.1 K/uL (0.0-0.2); BASO % 1.1 % (0.0-2.0); EOS # 0.3 K/uL (0.0-0.7); EOS % 4.1 % (0.0-4.0); HEMOGLOBIN 10.9 g/dL (12.0-16.0); LYMPH % 31.4 % (20.0-40.0); MEAN CELL VOLUME 95.4 fl (81.0-99.0); MEAN CORPUSCULAR HEMOGLOBIN 31.5 pg (27.0-31.0); MEAN PLATELET VOLUME 8.9 fl (7.2-11.7); MONO # 0.6 K/uL (0.0-0.8); MONO % 8.9 % (0.0-10.0); NEUT # 3.4 K/uL (1.8-7.0); NEUT % 54.5 % (50.0-75.0); NRBC % 0.1 % (0.0-0.0); RBC 3.45 Mil/uL (3.80-5.20); RED CELL DISTRIBUTION WIDTH 13.3 % (11.5-14.5); WHITE BLOOD COUNT 6.2 K/uL (4.8-10.8)
[2018-04-22 18:16] LABS: PARTIAL THROMBOPLASTIN TIME 32.1 Seconds (25.6-37.1); PROTHROMBIN TIME 10.6 Seconds (9.8-13.1)
[2018-04-22 18:24] LABS: ALB/GLOB RATIO 0.9 (1.0-2.1); ALBUMIN 3.2 g/dL (3.5-5.0); CALCIUM 9.2 mg/dL (8.4-10.2)
--- NOTE | 2018-04-22 18:30 | RAD ---
Date of service: 04/22/2018 HISTORY: Sepsis Patient COMPARISON: 04/19/2018. Single-view chest. 04/21/2018 CT thorax FINDINGS: LUNGS: No active pulmonary disease. PLEURA: No significant pleural effusion identified, no pneumothorax apparent. CARDIOVASCULAR: No radiographic findings to suggest acute or significant cardiovascular disease. Incidental Finding(s): Postoperative changes related to sternotomy. OSSEOUS STRUCTURES: No significant abnormalities. VISUALIZED UPPER ABDOMEN: Normal. OTHER FINDINGS: None. IMPRESSION: No active disease. No significant interval change compared to the prior examination(s).
[2018-04-22 18:31] LABS: URINE BACTERIA MANY (<OCC); URINE BILIRUBIN NEGATIVE (NEGATIVE); URINE BLOOD MODERATE (NEGATIVE); URINE CLARITY TURBID (Clear); URINE COLOR AMBER (YELLOW); URINE GLUCOSE (UA) NEG (Normal); URINE LEUKOCYTE ESTERASE LARGE Leu/uL (Negative); URINE PROTEIN 30 mg/dL (NEGATIVE); URINE UROBILINOGEN 0.2-1.0 mg/dL (0.2-1.0); WBC CLUMPS MANY /hpf
--- NOTE | 2018-04-22 20:28 | CP.PCM.PN ---
Subjective - Date & Time of Evaluation Date of Evaluation: 04/22/18 Time of Evaluation: 20:27 - Subjective Subjective: i d note patient c esbl + klebsella allergic to pcn will rx renal adjusted dose of gentamicin Objective - Vital Signs/Intake and Output Vital Signs (last 24 hours): Temp Pulse Resp BP Pulse Ox 98.4 F 87 19 157/85 H 99 04/22/18 16:35 04/22/18 19:11 04/22/18 19:11 04/22/18 19:11 04/22/18 19:40 - Labs Labs: 04/22/18 17:30 04/22/18 17:30 PT 10.6 Seconds (9.8-13.1) 04/22/18 17:30 INR 1.0 (0.9-1.2) 04/22/18 17:30 APTT 32.1 Seconds (25.6-37.1) 04/22/18 17:30
[2018-04-22 20:59] LABS: VENOUS BLOOD GAS BASE EXCESS 11.1 mmol/L (0.0-2.0); VENOUS BLOOD GAS PCO2 67 mmHg (40-60); VENOUS BLOOD GAS PO2 48 mm/Hg (30-55); VENOUS BLOOD PH 7.37 (7.32-7.43)
[2018-04-22] MEDS ORDERED: Acetaminophen-Codeine 300/30 mg Tab PO PRN (23:40)
[2018-04-23] MEDS: Sodium Chloride 0.45% 1,000 ML IV SCH ×2 (00:14→17:47)
[2018-04-23] MEDS ORDERED: Insulin Lispro Mix 75/25 100 units/ml (HumaLog) 10ml SC ONE (08:15)
[2018-04-23] MEDS ORDERED: Patient's Own Med (Ranolazine [Ranexa] 1,000 MG) PO SCH (09:00)
[2018-04-23] MEDS ORDERED: Insulin Regular 100 units/ml SC STA (12:47)
--- NOTE | 2018-04-23 14:48 | CARD ---
APPROVED REPORT Date of service: 04/22/2018 EKG Measurement Heart [id number] PA 186P [id number] <Conclusion> Sinus rhythm with fusion complexes Nonspecific T wave abnormality Abnormal ECG
[2018-04-23] MEDS: Insulin Regular 100 units/ml SC SCH ×3 (17:31→22:21)
[2018-04-23] MEDS: Ranolazine 500 mg Extended Release Tablets PO SCH ×2 (17:47→18:49)
--- NOTE | 2018-04-23 17:57 | CP.PCM.HP ---
History of Present Illness - History of Present Illness History of Present Illness: CC: Abnormal Labs result. 77 y/o F, multiple chronic medical conditions, including multiple admissions for UTI, was called by [facility] to return to hospital after been discharged on 04/21 and after be found with positive U C-S ( Klebsiella Pneumoniae on 04/21/18). Pt with no relief of symptom. Worsening symptoms: Pain when urine. Aggravated factor: Pt did not f/u with Rx of Cipro on discharge ( 04/21/18). Pt denied: Fever, chills, n/v/d, abdominal pain, CP, palpitations, SOB, cough, sick contact. EKG: Sinus rhythm with fusion complexes, nonspecific T wave abnormality. CXR: No active disease. Present on Admission - Present on Admission Any Indicators Present on Admission: No Review of Systems - Constitutional Constitutional: Weakness - EENT Eyes: Loss of Vision (L eye) Ears: Decreased Hearing (R ear) Nose/Mouth/Throat: Other (negtive) - Cardiovascular Cardiovascular: Other (negative) - Respiratory Respiratory: Other (negative) - Gastrointestinal Gastrointestinal: Constipation - Genitourinary Genitourinary: Dysuria, Freq UTI - Musculoskeletal Musculoskeletal: Arthralgias - Integumentary Integumentary: Other (negative) - Neurological Neurological: Confusion, Weakness - Psychiatric Psychiatric: Anxiety - Endocrine Endocrine: Other (negative) - Hematologic/Lymphatic Hematologic: Other (anemia) Past Patient History - Infectious Disease Hx of Infectious Diseases: None - Tetanus Immunizations Tetanus Immunization: Unknown - Past Medical History & Family History Past Medical History?: Yes Pertinent Family History: unknown - Past Social History Smoking Status: Never Smoked Alcohol: None Drugs: Denies Home Situation {Lives}: With Family - CARDIAC Hx Cardiac Disorders: Yes Hx Congestive Heart Failure: Yes Hx Hypercholesterolemia: Yes Hx Hypertension: Yes Hx Pacemaker: Yes Hx Peripheral Edema: Yes - PULMONARY Hx Respiratory Disorders: Yes Hx Asthma: Yes Hx Bronchitis: Yes Hx Chronic Obstructive Pulmonary Disease (COPD): Yes Hx Pneumonia: Yes - NEUROLOGICAL Hx Neurological Disorder: Yes Hx Dementia: Yes Hx Seizures: Yes - HEENT Hx HEENT Problems: Yes Hx Blind: Yes (left eye) Other/Comment: Hard of hear R ear., left eye blind - RENAL Hx Chronic Kidney Disease: Yes (mild renal insufficiecy.) - ENDOCRINE/METABOLIC Hx Endocrine Disorders: Yes Hx Diabetes Mellitus Type 2: Yes Hx Hypothyroidism: Yes - HEMATOLOGICAL/ONCOLOGICAL Hx Blood Disorders: Yes Hx AIDS: No Hx Anemia: Yes Hx Human Immunodeficiency Virus (HIV): No - INTEGUMENTARY Hx Dermatological Problems: No - MUSCULOSKELETAL/RHEUMATOLOGICAL Hx Musculoskeletal Disorders: Yes Hx Arthritis: Yes Hx Back Pain: Yes Hx Falls: No Hx Rheumatoid Arthritis: No - GASTROINTESTINAL Hx Gastrointestinal Disorders: Yes Hx Gastritis: Yes - GENITOURINARY/GYNECOLOGICAL Hx Genitourinary Disorders: Yes Hx Incontinence: Yes Hx Urinary Tract Infection: Yes - PSYCHIATRIC Hx Psychophysiologic Disorder: Yes Hx Anxiety: Yes Hx Depression: Yes Hx Substance Use: No - SURGICAL HISTORY Hx Surgeries: Yes Hx Cholecystectomy: Yes Hx Coronary Artery Bypass Graft: Yes (x4) Hx Coronary Stent: Yes - ANESTHESIA Hx Anesthesia: Yes Hx Anesthesia Reactions: No Hx Malignant Hyperthermia: No Meds Home Medications: Home Medication List Medication Instructions Recorded Confirmed Type Gentamicin 60mg/50ml NS 120 mg IV DAILY 13 Days #13 bag 04/25/18 Rx Allergies/Adverse Reactions: Allergies Allergy/AdvReac Type Severity Reaction Status Date / Time kiwi Allergy Mild RASH Verified 04/19/18 21:53 morphine Allergy Mild RASH Verified 04/19/18 21:53 Penicillins Allergy Mild RASH Verified 04/19/18 21:53 pineapple Allergy Mild RASH Verified 04/19/18 21:53 watermelon Allergy Mild RASH Verified 04/19/18 21:53 Physical Exam - Constitutional Appears: Chronically Ill - Head Exam Head Exam: NORMAL INSPECTION - Eye Exam Eye Exam: PERRL (R eye, left eye blind) - ENT Exam Additional comments: Hard of hearing by R side - Neck Exam Neck exam: Positive for: Normal Inspection - Respiratory Exam Respiratory Exam: NORMAL BREATHING PATTERN - Cardiovascular Exam Cardiovascular Exam: REGULAR RHYTHM, Systolic Murmur (2/6 LSB) - GI/Abdominal Exam GI & Abdominal Exam: Normal Bowel Sounds, Soft - Extremities Exam Extremities exam: Positive for: tenderness (R-L knees) Additional comments: L TMA - Back Exam Back exam: tenderness (mild) - Neurological Exam Neurological exam: Alert Additional comments: O x2, confused, - Psychiatric Exam Psychiatric exam: Anxious - Skin Skin Exam: Warm Results - Vital Signs Recent Vital Signs: Last Vital Signs Temp 98.2 F 04/23/18 16:59 Pulse 66 04/23/18 16:59 Resp 20 04/23/18 16:59 BP 135/74 04/23/18 16:59 Pulse Ox 97 04/23/18 16:59 reviewed Cheryl - Labs Result Diagrams: 04/25/18 05:45 04/25/18 05:45 Labs: Laboratory Results - last 24 hr 04/22/18 04/22/18 04/22/18 17:30 17:30 18:08 PT 10.6 INR 1.0 APTT 32.1 pO2 VBG pH VBG pCO2 VBG HCO3 VBG Total CO2 VBG O2 Sat (Calc) VBG Base Excess VBG Potassium Glucose Lactate FiO2 Blood Gas Comments Crit Value Called To Crit Value Called By Crit Value Read Back Blood Gas Notified Time Sodium 140 Potassium 4.6 Chloride 99 Carbon Dioxide 34 H Anion Gap 12 BUN 22 H Creatinine 1.5 H Est GFR ( Amer) 41 Est GFR (Non-Af Amer) 33 POC Glucose (mg/dL) Random Glucose 183 H Calcium 9.2 Phosphorus 2.7 Magnesium 1.8 Total Bilirubin 0.4 AST 21 ALT 18 Alkaline Phosphatase 125 Total Protein 6.7 Albumin 3.2 L Globulin 3.5 Albumin/Globulin Ratio 0.9 L Venous Blood Potassium Urine Color Sarah Urine Clarity Turbid Urine pH 6.0 Ur Specific Rudolph 1.006 Urine Protein 30 Urine Glucose (UA) Neg Urine Ketones Negative Urine Blood Moderate Urine Nitrate Positive H Urine Bilirubin Negative Urine Urobilinogen 0.2-1.0 Ur Leukocyte Esterase Large Urine RBC (Auto) 119 H Urine WBC Clumps (Auto) Many H Urine Microscopic WBC 2447 H Urine Bacteria Many H 04/22/18 04/23/18 04/23/18 20:13 06:13 11:39 PT INR APTT pO2 48 VBG pH 7.37 VBG pCO2 67 H* VBG HCO3 33.3 VBG Total CO2 40.8 H VBG O2 Sat (Calc) 86.5 H VBG Base Excess 11.1 H VBG Potassium 4.3 Glucose 201 H Lactate 0.9 FiO2 21.0 Blood Gas Comments Vbg Crit Value Called To Dr. enoch ashraf Crit Value Called By Viji Crit Value Read Back Y Blood Gas Notified Time 2058 Sodium 139.0 Potassium Chloride 104.0 Carbon Dioxide Anion Gap BUN Creatinine Est GFR ( Amer) Est GFR (Non-Af Amer) POC Glucose (mg/dL) 265 H 326 H Random Glucose Calcium Phosphorus Magnesium Total Bilirubin AST ALT Alkaline Phosphatase Total Protein Albumin Globulin Albumin/Globulin Ratio Venous Blood Potassium 4.3 Urine Color Urine Clarity Urine pH Ur Specific Rudolph Urine Protein Urine Glucose (UA) Urine Ketones Urine Blood Urine Nitrate Urine Bilirubin Urine Urobilinogen Ur Leukocyte Esterase Urine RBC (Auto) Urine WBC Clumps (Auto) Urine Microscopic WBC Urine Bacteria 04/23/18 04/23/18 14:59 16:06 PT INR APTT pO2 VBG pH VBG pCO2 VBG HCO3 VBG Total CO2 VBG O2 Sat (Calc) VBG Base Excess VBG Potassium Glucose Lactate FiO2 Blood Gas Comments Crit Value Called To Crit Value Called By Crit Value Read Back Blood Gas Notified Time Sodium Potassium Chloride Carbon Dioxide Anion Gap BUN Creatinine Est GFR ( Amer) Est GFR (Non-Af Amer) POC Glucose (mg/dL) 354 H 349 H Random Glucose Calcium Phosphorus Magnesium Total Bilirubin AST ALT Alkaline Phosphatase Total Protein Albumin Globulin Albumin/Globulin Ratio Venous Blood Potassium Urine Color Urine Clarity Urine pH Ur Specific Rudolph Urine Protein Urine Glucose (UA) Urine Ketones Urine Blood Urine Nitrate Urine Bilirubin Urine Urobilinogen Ur Leukocyte Esterase Urine RBC (Auto) Urine WBC Clumps (Auto) Urine Microscopic WBC Urine Bacteria reviewed J.P. - EKG Data EKG comments: reviewed J.P. Assessment & Plan (1) UTI due to Klebsiella species Status: Acute Priority: High (2) Diabetes mellitus with hyperglycemia Status: Acute Priority: High (3) HTN (hypertension) Status: Chronic Priority: Medium (4) Hx of CABG Status: Chronic Priority: Medium (5) PVD (peripheral vascular disease) Status: Chronic Priority: Medium (6) Osteoarthritis Status: Chronic Priority: Medium (7) CKD (chronic kidney disease) Status: Acute Comment: stage III - Assessment and Plan (Free Text) Plan: Gentamicin, Piridium, Coreg, ASA, Humalin , Lipitor and rest of Tx. ID consult appreciated. - Date & Time Date: 04/23/18 Time: 12:00
[2018-04-23] MEDS: Gentamicin 60mg/50ml NS 60 MG/50 ML BAG IVPB SCH (21:45)
[2018-04-24] MEDS: Insulin Regular 100 units/ml SC SCH ×4 (06:33→22:27)
[2018-04-24] MEDS: VIT D PO SCH (08:35)
[2018-04-24] MEDS: CALCIUM PO SCH (08:35)
[2018-04-24] MEDS: Gentamicin 60mg/50ml NS 60 MG/50 ML BAG IVPB SCH ×2 (08:38→22:26)
[2018-04-24] MEDS: Ranolazine 500 mg Extended Release Tablets PO SCH ×2 (08:39→16:49)
--- NOTE | 2018-04-24 13:31 | CP.PCM.PN ---
Subjective - Date & Time of Evaluation Date of Evaluation: 04/24/18 Time of Evaluation: 11:15 - Subjective Subjective: F/U UTI Objective - Vital Signs/Intake and Output Vital Signs (last 24 hours): Temp Pulse Resp BP Pulse Ox 97.8 F 63 18 135/64 97 04/24/18 10:00 04/24/18 10:00 04/24/18 10:00 04/24/18 10:00 04/24/18 10:00 - Medications Medications: Current Medications Acetaminophen/Codeine Phosphate (Tylenol/Codeine 300 Mg/30 Mg) 1 tab PO Q6 PRN PRN Reason: Pain, severe (8-10) Last Admin: 04/23/18 19:55 Dose: 1 tab Alprazolam (Xanax) 0.25 mg PO BID PRN PRN Reason: Anxiety Stop: 04/29/18 23:41 Last Admin: 04/23/18 00:14 Dose: 0.25 mg Amlodipine Besylate (Norvasc) 10 mg PO DAILY [facility] Last Admin: 04/24/18 08:39 Dose: 10 mg Aspirin (Ecotrin) 81 mg PO DAILY [facility] Last Admin: 04/24/18 08:38 Dose: 81 mg Atorvastatin Calcium (Lipitor) 40 mg PO [facility] Carvedilol (Coreg) 3.125 mg PO DAILY [facility] Last Admin: 04/24/18 08:38 Dose: 3.125 mg Docusate Sodium (Colace) 100 mg PO DAILY [facility] Last Admin: 04/24/18 08:37 Dose: 100 mg Ferrous Sulfate (Feosol) 325 mg PO DAILY [facility] Last Admin: 04/24/18 08:38 Dose: 325 mg Furosemide (Lasix) 20 mg PO QOTHERDAY [facility] Last Admin: 04/24/18 08:39 Dose: 20 mg Gabapentin (Neurontin) 100 mg PO BID PRN PRN Reason: Nerve pain/neuropathy Home Med (Calcium Carbonate/Vitamin D3 [Calcium 600 + Vit D Tablet]) 600 mg PO DAILY [facility] Last Admin: 04/24/18 08:35 Dose: 600 mg Gentamicin Sulfate/Sodium Chloride (Gentamicin 60mg/50ml Ns) 60 mg in 50 mls @ 50 mls/hr IVPB Q12 EVA PRN Reason: Protocol Last Admin: 04/24/18 08:38 Dose: 50 mls/hr Insulin Human Regular (Humulin R) 0 units SC [facility] PRN Reason: Protocol Last Admin: 04/24/18 11:47 Dose: 3 u Loratadine (Claritin) 10 mg PO DAILY [facility] Last Admin: 04/24/18 08:37 Dose: 10 mg Phenazopyridine HCl (Pyridium) 200 mg PO BID PRN PRN Reason: Dysuria Ranolazine (Ranexa) 500 mg PO BID [facility] Last Admin: 04/24/18 08:39 Dose: 500 mg - Labs Labs: 04/22/18 17:30 04/22/18 17:30 PT 10.6 Seconds (9.8-13.1) 04/22/18 17:30 INR 1.0 (0.9-1.2) 04/22/18 17:30 APTT 32.1 Seconds (25.6-37.1) 04/22/18 17:30 - Constitutional Appears: No Acute Distress, Chronically Ill - Head Exam Head Exam: NORMAL INSPECTION - Eye Exam Eye Exam: PERRL (R eye, L eye blimd) - ENT Exam Additional comments: Hard of hearing R side - Neck Exam Neck Exam: Normal Inspection - Respiratory Exam Respiratory Exam: NORMAL BREATHING PATTERN - Cardiovascular Exam Cardiovascular Exam: REGULAR RHYTHM, Murmur (2/6 LSB) - GI/Abdominal Exam GI & Abdominal Exam: Soft, Normal Bowel Sounds - Extremities Exam Extremities Exam: Tenderness (R-L knees) Additional comments: L TMA - Back Exam Back Exam: tenderness (mild) - Neurological Exam Neurological Exam: Alert Additional comments: Ox2, confused - Psychiatric Exam Psychiatric exam: Anxious - Skin Skin Exam: Warm Assessment and Plan (1) UTI due to Klebsiella species Status: Acute (2) Diabetes mellitus with hyperglycemia Status: Acute (3) HTN (hypertension) Status: Chronic (4) Hx of CABG Status: Chronic (5) PVD (peripheral vascular disease) Status: Chronic (6) Osteoarthritis Status: Chronic
[2018-04-24 17:23] VITALS: O2SAT 98
[2018-04-24 23:37] VITALS: RESP 18
[2018-04-25 06:34] LABS: HEMOGLOBIN 10.2 g/dL (12.0-16.0); MEAN CELL VOLUME 93.9 fl (81.0-99.0); MEAN CORPUSCULAR HEMOGLOBIN 33.2 pg (27.0-31.0); MEAN CORPUSCULAR HGB CONC 35.4 g/dL (33.0-37.0); RBC 3.07 Mil/uL (3.80-5.20); RED CELL DISTRIBUTION WIDTH 13.4 % (11.5-14.5); WHITE BLOOD COUNT 5.7 K/uL (4.8-10.8)
[2018-04-25] MEDS: Insulin Regular 100 units/ml SC SCH ×2 (06:52→14:13)
[2018-04-25 07:32] LABS: ALB/GLOB RATIO 0.8 (1.0-2.1); ALBUMIN 2.8 g/dL (3.5-5.0)
[2018-04-25] MEDS: Ranolazine 500 mg Extended Release Tablets PO SCH (09:26)
[2018-04-25] MEDS: VIT D PO SCH (09:27)
[2018-04-25] MEDS: CALCIUM PO SCH (09:27)
[2018-04-25] MEDS: Gentamicin 60mg/50ml NS 60 MG/50 ML BAG IVPB SCH (09:28)
[2018-04-25] MEDS ORDERED: Lidocaine Hydrochloride 5 ML INJ ONE (12:30)
[2018-04-25 13:45] VITALS: BP 142/80; PULSE 72; TEMP 98.2
--- NOTE | 2018-04-25 13:56 | PCM.SURG1 ---
Surgeon's Initial Post Op Note - Surgeon's Notes Surgeon: Donnie Calderon MD Salesperson Burial Plots: NONE Type of Anesthesia: Local Pre-Operative Diagnosis: Poor venous access Operative Findings: US showed patent right basilic vein Post-Operative Diagnosis: Poor venous access Operation Performed: Single lumen picc right arm, 35 cm. Tip is in the SVC. Specimen/Specimens Removed: NONE Estimated Blood Loss: EBL {In ML}: 2 Blood Products Given: N/A Drains Used: No Drains Post-Op Condition: Fair Date of Surgery/Procedure: 04/25/18 Time of Surgery/Procedure: 13:50
--- NOTE | 2018-04-25 15:05 | CP.PCM.PCO ---
Assessment/Plan - Assessment/Plan Assessment (Free Text): Pt stable, seen and cleared for d/c home by Dr. Oliver. Per Dr. Hutchison, pt to continue IV Gentamicin 120mg QD x 10-14 days. Rx given to CM and home abx arranged. Spoke to pt's daughter Chela who states her brother will be administering abx to the pt at home. Rep from home infusion company met with pt' s son at bedside. Home abx to begin tomorrow. Patient, pt's son and RN aware of plan.
--- NOTE | 2018-04-26 11:31 | VASCULAR ---
PROCEDURE: Date of procedure: 04/25/2018 Procedure: 1. Placement of a right arm PICC with ultrasound and fluoroscopic guidance, CPT 09067 2. PICC tip confirmation with spot radiograph and is in the superior vena cava Medications: 2cc 1 percent lidocaine Total Fluoro time: 8 seconds Radiation: 0.76 MGy EBL: 2 cc HISTORY: Poor venous access TECHNIQUE: Following informed consent and procedure time-out, the patient was placed supine on the interventional table and the right arm prepped and draped in the usual sterile fashion. Ultrasound showed a patent and compressible right basilic vein. After the skin was anesthetized with lidocaine, the basilic vein was accessed with micro micropuncture technique using ultrasound guidance. A guidewire was then advanced under fluoroscopic guidance into the superior vena cava. An image documenting ultrasound guidance for vascular access was permanently saved. The length of the single-lumen 4 Malay PICC was trimmed to 35 centimeters and advanced through a peel-away sheath. The PICC was position with tip of PICC confirm a spot radiograph the superior vena cava. The PICC was secured to the patient's skin. The PICC was flushed. A biopatch and sterile dressing was applied. IMPRESSION: Placement of a single-lumen 4 Malay PICC trimmed to 35 centimeters via right basilic vein. The tip of the PICC is confirmed with spot radiograph and is in the superior vena cava.
--- NOTE | 2018-04-27 14:01 | PQF ---
PROVIDER RESPONSE TEXT: CKD (chronic kidney disease) Status: Chronic Comment: stage III REVIEWER QUERY TEXT: Kidney Disease, Chronic CKD Stage Chronic Kidney Disease (CKD) is documented in the Medical Record. Please specify the disease stage ( includes probable or suspected) Such as: -- Chronic kidney disease Stage 1 -- Chronic kidney disease Stage 2 -- Chronic kidney disease Stage 3 -- Chronic kidney disease Stage 4 -- Chronic kidney disease Stage 5 -- Chronic kidney disease Stage 5, requiring dialysis -- End Stage Renal Disease -- Other, please specify Stages are defined by the [employer] as follows: CKD Stage I GFR >= 90 ml / min per 1.73 m2 and persistent albuminuria CKD Stage 2 GFR between 60 and 89 with persistent albuminuria CKD Stage 3 GFR between 30 and 59 CKD Stage 4 GFR between 15 and 29 CKD Stage 5 GFR between <15 or End Stage Renal Disease The patient's Clinical Indicators include: BUN : 22, 24 Creatinine: 1.5, 1.3 GFR: 33, 40 Query created by: Vilma Sanon on 04/25/2018 9:26 AM Electronically signed by: Sridhar Oliver MD 04/27/2018 1:57 PM
--- NOTE | 2018-05-10 12:12 | CP.PCM.DIS ---
Provider - Provider Date of Admission: 04/22/18 19:43 Attending physician: Sridhar Oliver MD Time Spent in preparation of Discharge (in minutes): 30 Diagnosis - Discharge Diagnosis (1) UTI due to Klebsiella species Status: Acute Priority: High (2) Diabetes mellitus with hyperglycemia Status: Acute Priority: High (3) HTN (hypertension) Status: Chronic Priority: Medium (4) Hx of CABG Status: Chronic Priority: Medium (5) PVD (peripheral vascular disease) Status: Chronic Priority: Medium (6) Osteoarthritis Status: Chronic Priority: Medium (7) CKD (chronic kidney disease) Status: Acute (8) Chronic diastolic (congestive) heart failure Status: Acute Comment: non Acute Hospital Course - Lab Results Lab Results: Micro Results 04/22/18 17:45 Blood Blood Culture - Final NO GROWTH AFTER 5 DAYS 04/22/18 17:45 Blood Gram Stain - Final TEST NOT PERFORMED 04/22/18 17:30 Blood Blood Culture - Final NO GROWTH AFTER 5 DAYS 04/22/18 17:30 Blood Gram Stain - Final TEST NOT PERFORMED 04/22/18 18:08 Urine,Catheterized Urine Culture - Final Klebsiella Pneumoniae Ssp Pneu Most Recent Lab Values WBC 5.7 K/uL (4.8-10.8) 04/25/18 05:45 RBC 3.07 Mil/uL (3.80-5.20) L 04/25/18 05:45 Hgb 10.2 g/dL (12.0-16.0) L 04/25/18 05:45 Hct 28.8 % (34.0-47.0) L 04/25/18 05:45 MCV 93.9 fl (81.0-99.0) 04/25/18 05:45 MCH 33.2 pg (27.0-31.0) H 04/25/18 05:45 MCHC 35.4 g/dL (33.0-37.0) 04/25/18 05:45 RDW 13.4 % (11.5-14.5) 04/25/18 05:45 Plt Count 148 K/uL (130-400) 04/25/18 05:45 MPV 8.9 fl (7.2-11.7) 04/22/18 17:30 Neut % (Auto) 54.5 % (50.0-75.0) 04/22/18 17:30 Lymph % (Auto) 31.4 % (20.0-40.0) 04/22/18 17:30 [place] % (Auto) 8.9 % (0.0-10.0) 04/22/18 17:30 Eos % (Auto) 4.1 % (0.0-4.0) H 04/22/18 17:30 Baso % (Auto) 1.1 % (0.0-2.0) 04/22/18 17:30 Neut # (Auto) 3.4 K/uL (1.8-7.0) 04/22/18 17:30 Lymph # (Auto) 2.0 K/uL (1.0-4.3) 04/22/18 17:30 [place] # (Auto) 0.6 K/uL (0.0-0.8) 04/22/18 17:30 Eos # (Auto) 0.3 K/uL (0.0-0.7) 04/22/18 17:30 Baso # (Auto) 0.1 K/uL (0.0-0.2) 04/22/18 17:30 PT 10.6 Seconds (9.8-13.1) 04/22/18 17:30 INR 1.0 (0.9-1.2) 04/22/18 17:30 APTT 32.1 Seconds (25.6-37.1) 04/22/18 17:30 pO2 48 mm/Hg (30-55) 04/22/18 20:13 VBG pH 7.37 (7.32-7.43) 04/22/18 20:13 VBG pCO2 67 mmHg (40-60) H* 04/22/18 20:13 VBG HCO3 33.3 mmol/L 04/22/18 20:13 VBG Total CO2 40.8 mmol/L (22-28) H 04/22/18 20:13 VBG O2 Sat (Calc) 86.5 % (40-65) H 04/22/18 20:13 VBG Base Excess 11.1 mmol/L (0.0-2.0) H 04/22/18 20:13 VBG Potassium 4.3 mmol/L (3.6-5.2) 04/22/18 20:13 Sodium 139.0 mmol/L (132-148) 04/22/18 20:13 Chloride 104.0 mmol/L (98-107) 04/22/18 20:13 Glucose 201 mg/dL (65-105) H 04/22/18 20:13 Lactate 0.9 mmol/L (0.7-2.1) 04/22/18 20:13 FiO2 21.0 % 04/22/18 20:13 Blood Gas Comments Vbg 04/22/18 20:13 Crit Value Called To Dr. enoch ashraf 04/22/18 20:13 Crit Value Called By Viji 04/22/18 20:13 Crit Value Read Back Y 04/22/18 20:13 Blood Gas Notified Time 205804/22/18 20:13 Sodium 142 mmol/l (132-148) 04/25/18 05:45 Potassium 4.6 MMOL/L (3.6-5.0) 04/25/18 05:45 Chloride 104 mmol/L (98-107) 04/25/18 05:45 Carbon Dioxide 35 mmol/L (22-30) H 04/25/18 05:45 Anion Gap 8 (10-20) L 04/25/18 05:45 BUN 24 mg/dl (7-17) H 04/25/18 05:45 Creatinine 1.3 mg/dl (0.7-1.2) H 04/25/18 05:45 Est GFR ( Amer) 48 04/25/18 05:45 Est GFR (Non-Af Amer) 40 04/25/18 05:45 POC Glucose (mg/dL) 293 mg/dL (65-110) H 04/25/18 10:55 Random Glucose 193 mg/dL (65-105) H 04/25/18 05:45 Calcium 9.0 mg/dL (8.4-10.2) 04/25/18 05:45 Phosphorus 2.7 mg/dl (2.5-4.5) 04/22/18 17:30 Magnesium 1.8 MG/DL (1.6-2.3) 04/22/18 17:30 Total Bilirubin 0.4 mg/dl (0.2-1.3) 04/25/18 05:45 AST 22 U/L (14-36) 04/25/18 05:45 ALT 16 U/L (9-52) 04/25/18 05:45 Alkaline Phosphatase 81 U/L (38-126) 04/25/18 05:45 Total Protein 6.0 G/DL (6.3-8.2) L 04/25/18 05:45 Albumin 2.8 g/dL (3.5-5.0) L 04/25/18 05:45 Globulin 3.3 gm/dL (2.2-3.9) 04/25/18 05:45 Albumin/Globulin Ratio 0.8 (1.0-2.1) L 04/25/18 05:45 Venous Blood Potassium 4.3 mmol/L (3.6-5.2) 04/22/18 20:13 Urine Color Sarah (YELLOW) 04/22/18 18:08 Urine Clarity Turbid (Clear) 04/22/18 18:08 Urine pH 6.0 (5.0-8.0) 04/22/18 18:08 Ur Specific [place] 1.006 (1.003-1.030) 04/22/18 18:08 Urine Protein 30 mg/dL (NEGATIVE) 04/22/18 18:08 Urine Glucose (UA) Neg mg/dL (Normal) 04/22/18 18:08 Urine Ketones Negative mg/dL (NEGATIVE) 04/22/18 18:08 Urine Blood Moderate (NEGATIVE) 04/22/18 18:08 Urine Nitrate Positive (NEGATIVE) H 04/22/18 18:08 Urine Bilirubin Negative (NEGATIVE) 04/22/18 18:08 Urine Urobilinogen 0.2-1.0 mg/dL (0.2-1.0) 04/22/18 18:08 Ur Leukocyte Esterase [place]/uL (Negative) 04/22/18 18:08 Urine RBC (Auto) 119 /hpf (0-3) H 04/22/18 18:08 Urine WBC Clumps (Auto) Many /hpf (NONE) H 04/22/18 18:08 Urine Microscopic WBC 2447 /hpf (0-5) H 04/22/18 18:08 Urine Bacteria Many (<OCC) H 04/22/18 18:08 - Date & Time of H&P Date of H&P: 04/23/18 Time of H&P: 12:00 Discharge Exam - Head Exam Head Exam: NORMAL INSPECTION Discharge Plan - Discharge Medications Prescriptions: Gentamicin 60mg/50ml NS 120 mg IV DAILY 13 Days #13 bag - Follow Up Plan Condition: FAIR Disposition: HOME/ ROUTINE Patient education suggested?: Yes Instructions: Urinary Tract Infection, Adult (DC) Additional Instructions: follow up with Dr Oliver in 1 week homecare services [phone] Referrals: Lele Hutchison MD [Medical Doctor] - Sridhar Oliver MD [Family Provider] -
--- NOTE | 2018-05-11 13:35 | PQF ---
PROVIDER RESPONSE TEXT: Acute on chronic diastolic REVIEWER QUERY TEXT: CHF Acuity and Type Congestive Heart Failure is documented in the Medical Record. Please document the TYPE and ACUITY .[place] ch as: Type: -- Systolic -- Diastolic -- Combined -- Other, please specify Acuity: -- Acute -- Chronic -- Acute on chronic -- Other, please specify The patient's Clinical Indicators include: Patient with a history of CHF is admitted for UTI Klebsiella species. ECHO report 03/12/18: EF Normal, Grade I abnormal relaxation pattern. Medication: Lasix, Coreg Query created by: Vilma Sanon on 04/29/2018 6:11 AM Electronically signed by: Sridhar Oliver MD 05/11/2018 1:32 PM
--- NOTE | 2018-05-12 13:41 | CP.PCM.PN ---
Subjective - Subjective Subjective: Clarification: Chronic Diastoloc CHF, no Acute Objective - Vital Signs/Intake and Output Vital Signs (last 24 hours): Temp Pulse Resp BP Pulse Ox 98.2 F 72 18 142/80 98 04/25/18 13:44 04/25/18 13:44 04/25/18 08:01 04/25/18 13:44 04/25/18 08:01 - Labs Labs: 04/25/18 05:45 04/25/18 05:45 PT 10.6 Seconds (9.8-13.1) 04/22/18 17:30 INR 1.0 (0.9-1.2) 04/22/18 17:30 APTT 32.1 Seconds (25.6-37.1) 04/22/18 17:30 Assessment and Plan (1) UTI due to Klebsiella species Status: Acute (2) Diabetes mellitus with hyperglycemia Status: Acute (3) HTN (hypertension) Status: Chronic (4) Hx of CABG Status: Chronic (5) PVD (peripheral vascular disease) Status: Chronic (6) Osteoarthritis Status: Chronic (7) CKD (chronic kidney disease) Status: Acute
== END 2018-04-25 16:20 | disposition home or self-care (01) | DRG 569 ==
LOC: H.ER 16:32 → H.ERHOLD 19:43 → H.MEDSURG1 22:50
PROVIDERS: ADMIT Internal Medicine Pulmonary Disease; ATTEND Internal Medicine Pulmonary Disease
PROC: 02HV33Z Insertion of Infusion Device into Superior Vena Cava, Percutaneous Approach (ICD-10-PCS; principal; 2018-04-25)
DX: N39.0 Urinary tract infection, site not specified (principal); I50.32 Chronic diastolic (congestive) heart failure; B96.1 Klebsiella pneumoniae [K. pneumoniae] as the cause of diseases classified elsewhere; E11.22 Type 2 diabetes mellitus with diabetic chronic kidney disease; F03.90 Unspecified dementia, unspecified severity, without behavioral disturbance, psychotic disturbance, mood disturbance, and anxiety; I13.0 Hypertensive heart and chronic kidney disease with heart failure and stage 1 through stage 4 chronic kidney disease, or unspecified chronic kidney disease; I50.9 Heart failure, unspecified; E11.51 Type 2 diabetes mellitus with diabetic peripheral angiopathy without gangrene; J44.9 Chronic obstructive pulmonary disease, unspecified; N18.3 Chronic kidney disease, stage 3 (moderate); E11.65 Type 2 diabetes mellitus with hyperglycemia; Z88.5 Allergy status to narcotic agent; Z88.0 Allergy status to penicillin; Z91.018 Allergy to other foods; E78.00 Pure hypercholesterolemia, unspecified; E78.5 Hyperlipidemia, unspecified; I25.10 Atherosclerotic heart disease of native coronary artery without angina pectoris; Z95.1 Presence of aortocoronary bypass graft; Z95.5 Presence of coronary angioplasty implant and graft; Z95.0 Presence of cardiac pacemaker; H91.91 Unspecified hearing loss, right ear; K29.70 Gastritis, unspecified, without bleeding; F32.9 Major depressive disorder, single episode, unspecified; E03.9 Hypothyroidism, unspecified; H54.62 Unqualified visual loss, left eye, normal vision right eye; M19.90 Unspecified osteoarthritis, unspecified site

== ENCOUNTER 2018-05-24 20:15 | Observation (INO) | payer MEDICAID ==
[2018-05-24 20:15] VITALS: BMI 29.3
[2018-05-24] MEDS ORDERED: Nitroglycerin 2% Ointment Foilpak UD TOP STA (21:00)
[2018-05-24] MEDS ORDERED: Nitroglycerin 2% Ointment Foilpak UD TOP ONE (21:05)
--- NOTE | 2018-05-24 21:15 | ED PDOC ---
HPI: Chest Pain Time Seen by Provider: 05/24/18 20:28 Chief Complaint (Nursing): Abdominal Pain Chief Complaint (Provider): Chest pain, shortness of breath History Per: Patient History/Exam Limitations: no limitations Current Symptoms Are (Timing): Still Present Additional Complaint(s): 78yo female, with history of CHF, COPD, artirits, and recently treated inpatient for klebsiella UTI, comes to ER with complaints of chest pain and shortness of breath. Patient states the pain is sub-sternal. Patient accompanied by her daughter who provides most of the history and states patient had elevated blood pressure yesterday, with systolic > 200. Otherwise, no fever , chills, headache, weakness, vomiting. No other complaints. PMD: Sridhar Oliver Past Medical History Reviewed: Historical Data, Nursing Documentation, Vital Signs Vital Signs: Last Vital Signs Temp 100.2 F H 05/24/18 23:09 Pulse 85 05/24/18 23:09 Resp 20 05/24/18 23:09 BP 123/47 L 05/24/18 23:09 Pulse Ox 95 05/25/18 01:16 - Medical History PMH: Anemia, Anxiety, Arthritis, Asthma, Back Problems, Bronchitis, CAD, CHF, COPD, Dementia, Depression, Diabetes, Gastritis, HTN, Hypercholesterolemia, Hyperlipidemia, Hypothyroidism, Peripheral Edema, Pneumonia, Chronic Kidney Disease (mild renal insufficiecy.), Seizures Denies: HIV, Rheumatoid Arthritis - Surgical History Surgical History: CABG (x4), Cholecystectomy, Coronary Stent, Pacemaker - Family History Family History: States: Unknown Family Hx - Living Arrangements Living Arrangements: With Family - Home Medications Home Medications: Ambulatory Orders Medication Instructions Recorded Aspirin [Ecotrin] 81 mg PO DAILY 01/12/17 Carvedilol [Coreg] 3.125 mg PO DAILY 01/12/17 Ranolazine [Ranexa] 1,000 mg PO BID 01/12/17 Atorvastatin [Lipitor] 40 mg PO HS 02/01/17 Docusate [Colace] 100 mg PO DAILY 08/30/17 amLODIPine [Norvasc] 10 mg PO DAILY #30 tab 11/05/17 Acetaminophen/Codeine 1 tab PO Q6 PRN 03/12/18 [Tylenol/Codeine 300 MG/30 MG] Ferrous Sulfate [Feosol] 325 mg PO DAILY 03/12/18 Furosemide [Lasix] 20 mg PO QOTHERDAY 03/12/18 Gabapentin [Neurontin] 100 mg PO BID PRN 03/12/18 Loratadine [Claritin] 10 mg PO DAILY 03/12/18 Phenazopyridine [Pyridium] 200 mg PO BID PRN 03/12/18 ALPRAZolam [Xanax] 0.25 mg PO BID PRN 04/20/18 Calcium Carbonate/Vitamin D3 600 mg PO DAILY 04/23/18 [Calcium 600 + Vit D Tablet] Gentamicin 60mg/50ml NS 120 mg IV DAILY 13 Days #13 bag 04/25/18 - Allergies Allergies/Adverse Reactions: Allergies Allergy/AdvReac Type Severity Reaction Status Date / Time kiwi Allergy Mild RASH Verified 04/19/18 21:53 morphine Allergy Mild RASH Verified 04/19/18 21:53 Penicillins Allergy Mild RASH Verified 04/19/18 21:53 pineapple Allergy Mild RASH Verified 04/19/18 21:53 watermelon Allergy Mild RASH Verified 04/19/18 21:53 Review of Systems ROS Statement: Except As Marked, All Systems Reviewed And Found Negative Constitutional: Negative for: Fever, Chills Cardiovascular: Positive for: Chest Pain Respiratory: Positive for: Shortness of Breath Gastrointestinal: Negative for: Vomiting, Abdominal Pain Neurological: Negative for: Weakness Physical Exam - Reviewed Nursing Documentation Reviewed: Yes Vital Signs Reviewed: Yes - Physical Exam Appears: Positive for: Non-toxic Head Exam: Positive for: ATRAUMATIC, NORMAL INSPECTION, NORMOCEPHALIC Skin: Positive for: Normal Color, Warm Eye Exam: Positive for: EOMI (right), PERRL (right), Other (left eye prosthesis) Neck: Positive for: Normal, Supple Cardiovascular/Chest: Positive for: Regular Rate, Rhythm, Chest Non Tender, JVD (+ 1) Respiratory: Positive for: Rales (bibasilar rales). Negative for: Respiratory Distress Gastrointestinal/Abdominal: Positive for: Normal Exam, Soft. Negative for: Tenderness Back: Positive for: Normal Inspection Extremity: Positive for: Normal ROM. Negative for: Pedal Edema Neurologic/Psych: Positive for: Alert, Oriented. Negative for: Motor/Sensory Deficits - Laboratory Results Result Diagrams: 05/24/18 21:01 05/24/18 21:01 - ECG O2 Sat by Pulse Oximetry: 95 (RA) Pulse Ox Interpretation: Normal Medical Decision Making Medical Decision Making: Impression: 78yo female with chest pain, shortness of breath, in setting of known CHF Plan: -- Labs -- EKG -- Chest x-ray -- Lasix 40mg IV -- Zofran 4mg IV -- Pepcid 20mg IV -- NTG 1 Application -- Urinalysis Scribe Attestation: Documented by Danica Santos, acting as a scribe for Mukul Reyes MD. Provider Scribe Attestation: All medical record entries made by the Scribe were at my direction and personally dictated by me. I have reviewed the chart and agree that the record accurately reflects my personal performance of the history, physical exam, medical decision making, and the department course for this patient. I have also personally directed, reviewed, and agree with the discharge instructions and disposition. Time: 0100 -- Labs reviewed and show no abnormality with the exception of an elevated BNP. Patient will be hospitalized for observation for CHF. Patient admitted under Dr. Oliver's service. Scribe Attestation: Documented by Dustin Henry acting as a scribe for Mukul Reyes MD. Provider Scribe Attestation: All medical record entries made by the Scribe were at my direction and personally dictated by me. I have reviewed the chart and agree that the record accurately reflects my personal performance of the medical decision making for this patient. I have also personally directed, reviewed, and agree with the discharge instructions and disposition. Disposition - Clinical Impression Clinical Impression: CHF (congestive heart failure) - Patient ED Disposition Is Patient to be Admitted: Yes Discussed With : Sridhar Oliver Doctor Will See Patient In The: Hospital - Disposition Disposition Time: 01:00 Condition: FAIR - Pt Status Changed To: Hospital Disposition Of: Observation
[2018-05-24 21:20] LABS: ALBUMIN 3.9 g/dL (3.5-5.0); ALT/SGPT 24 U/L (9-52); AST/SGOT 27 U/L (14-36); BLOOD UREA NITROGEN 23 mg/dl (7-17); CALCIUM 9.5 mg/dL (8.4-10.2); GFR NON-AFRICAN AMERICAN 25
[2018-05-24 21:32] LABS: BASO # 0.1 K/uL (0.0-0.2); BASO % 0.4 % (0.0-2.0); EOS # 0.2 K/uL (0.0-0.7); EOS % 1.4 % (0.0-4.0); HEMOGLOBIN 11.5 g/dL (12.0-16.0); LYMPH # 2.2 K/uL (1.0-4.3); LYMPH % 13.2 % (20.0-40.0); MEAN CELL VOLUME 94.8 fl (81.0-99.0); MEAN CORPUSCULAR HEMOGLOBIN 31.2 pg (27.0-31.0); MEAN CORPUSCULAR HGB CONC 32.9 g/dL (33.0-37.0); MEAN PLATELET VOLUME 8.1 fl (7.2-11.7); MONO # 0.9 K/uL (0.0-0.8); MONO % 5.4 % (0.0-10.0); NEUT # 13.5 K/uL (1.8-7.0); NEUT % 79.6 % (50.0-75.0); RBC 3.69 Mil/uL (3.80-5.20); RED CELL DISTRIBUTION WIDTH 14.1 % (11.5-14.5)
[2018-05-24 21:33] LABS: PROTHROMBIN TIME 10.9 Seconds (9.8-13.1)
[2018-05-24 21:35] LABS: PARTIAL THROMBOPLASTIN TIME 33.9 Seconds (25.6-37.1)
[2018-05-25 08:36] LABS: BASO # 0.1 K/uL (0.0-0.2); EOS # 0.2 K/uL (0.0-0.7); EOS % 1.7 % (0.0-4.0); HEMOGLOBIN 10.7 g/dL (12.0-16.0); LYMPH # 2.8 K/uL (1.0-4.3); LYMPH % 22.4 % (20.0-40.0); MEAN CELL VOLUME 94.7 fl (81.0-99.0); MEAN CORPUSCULAR HEMOGLOBIN 32.3 pg (27.0-31.0); MEAN CORPUSCULAR HGB CONC 34.1 g/dL (33.0-37.0); MONO # 0.8 K/uL (0.0-0.8); MONO % 6.5 % (0.0-10.0); NEUT # 8.6 K/uL (1.8-7.0); NEUT % 68.4 % (50.0-75.0); RBC 3.32 Mil/uL (3.80-5.20); RED CELL DISTRIBUTION WIDTH 13.9 % (11.5-14.5); WHITE BLOOD COUNT 12.6 K/uL (4.8-10.8)
[2018-05-25 08:54] LABS: ALB/GLOB RATIO 0.8 (1.0-2.1); ALBUMIN 3.2 g/dL (3.5-5.0); CALCIUM 9.3 mg/dL (8.4-10.2)
--- NOTE | 2018-05-25 08:54 | RAD ---
Date of service: 05/24/2018 HISTORY: sob COMPARISON: 04/22/2018 FINDINGS: LUNGS: No consolidation. Linear discoid atelectatic changes left mid to lower lung zone and left lung base-not significantly changed. Phenomena of linear fibrosis is also compatible with this. PLEURA: No significant pleural effusion identified, no pneumothorax apparent. CARDIOVASCULAR: Mild cardiomegaly-similar. Interval increased pulmonary venous congestion. Midline sternotomy wires intact and similar in appearance OSSEOUS STRUCTURES: No significant abnormalities. VISUALIZED UPPER ABDOMEN: Right upper quadrant post cholecystectomy status. OTHER FINDINGS: None. IMPRESSION: Interval increased pulmonary venous congestion. Mild cardiomegaly. Similar left mid and left lung base discoid atelectasis and/or linear scarring/fibrosis
--- NOTE | 2018-05-25 09:31 | CARD ---
APPROVED REPORT Date of service: 05/25/2018 EKG Measurement Heart [id number] <Conclusion> Normal sinus rhythm poor R wave progression prolonged QT Abnormal ECG
[2018-05-25 09:53] LABS: T4 7.07 ug/dl (5.5-11.0)
--- NOTE | 2018-05-25 10:11 | CARD ---
APPROVED REPORT Date of service: 05/24/2018 <Conclusion> Normal sinus rhythm Left axis deviation Abnormal ECG
[2018-05-25 10:40] LABS: SQUAMOUS EPITHIAL 1 /hpf (0-5); URINE BILIRUBIN NEGATIVE (NEGATIVE); URINE BLOOD NEGATIVE (NEGATIVE); URINE CLARITY SLIGHTY-CLOUDY (Clear); URINE COLOR YELLOW (YELLOW); URINE GLUCOSE (UA) NEG (Normal); URINE LEUKOCYTE ESTERASE SMALL Leu/uL (Negative); URINE PROTEIN 100 mg/dL (NEGATIVE); URINE UROBILINOGEN 0.2-1.0 mg/dL (0.2-1.0)
[2018-05-25] MEDS ORDERED: INSULIN ASPART PROTAMINE SC PRN (12:46)
[2018-05-25] MEDS ORDERED: Acetaminophen-Codeine 300/30 mg Tab PO PRN (12:46)
[2018-05-25] MEDS ORDERED: INSULIN ASPART SC PRN (12:46)
--- NOTE | 2018-05-25 13:22 | CP.PCM.HP ---
History of Present Illness - History of Present Illness History of Present Illness: CC: Chest pain. 78 y/o F, with multiple chronic medical conditions likely CHF, Hx CABG, PPM, COPD, HTN, UTI, Dementia, brought to [facility] via EMS, on 05/24/18 for evaluation of moderate Chest pain, sub-sternal, non radiated but associated to SOB on DOA with no relief. Worsening symptoms: As per daughter, on day [employer] BP systolic > 200. In the ER Tmax 100.3F, BP 177/82, HR 92. Also c/o of generalized mild and chronic abdominal pain, intensity 4:10, Pt with extensive Hx of UTI. Aggravated factor: Poor historian. Unable to ambulate. Pt denied: Fever, chills, headache, n/v/d, syncope, LOC, numbness, sick contact , recent travel out of [facility]. EKG shows; Normal sinus rhythm, poor R wave progression, prolonged QT. CXR: Increased venous congestion, mild cardiomegaly. Similar L mid and left lung base discoid atelectasis and or linear scarring/fibrosis. Present on Admission - Present on Admission Any Indicators Present on Admission: No Review of Systems - Constitutional Constitutional: Weakness - EENT Eyes: Loss of Vision (L eye) Ears: Decreased Hearing (R ear) Nose/Mouth/Throat: Nasal Congestion - Cardiovascular Cardiovascular: Chest Pain, Leg Edema, Rapid Heart Rate - Respiratory Respiratory: Dyspnea - Gastrointestinal Gastrointestinal: Constipation - Genitourinary Genitourinary: Urinary Incontinence - Musculoskeletal Musculoskeletal: Arthralgias, Back Pain - Integumentary Integumentary: Other (negative) - Neurological Neurological: Memory Loss (mild), Other Visual Disturbances (blind L eye) - Psychiatric Psychiatric: Anxiety - Endocrine Endocrine: Other (negative) - Hematologic/Lymphatic Hematologic: Other (anemia) Past Patient History - Infectious Disease Hx of Infectious Diseases: None - Tetanus Immunizations Tetanus Immunization: Unknown - Past Medical History & Family History Past Medical History?: Yes Pertinent Family History: Unknown - Past Social History Smoking Status: Never Smoked Alcohol: None Drugs: Denies Home Situation {Lives}: With Family - CARDIAC Hx Cardiac Disorders: Yes Hx Congestive Heart Failure: Yes Hx Hypercholesterolemia: Yes Hx Hypertension: Yes Hx Pacemaker: Yes Hx Peripheral Edema: Yes - PULMONARY Hx Respiratory Disorders: Yes Hx Asthma: Yes Hx Bronchitis: Yes Hx Chronic Obstructive Pulmonary Disease (COPD): Yes Hx Pneumonia: Yes - NEUROLOGICAL Hx Neurological Disorder: Yes Hx Dementia: Yes Hx Seizures: Yes - HEENT Hx HEENT Problems: Yes Hx Blind: Yes (left eye) Other/Comment: Hard of hear R ear., left eye blind - RENAL Hx Chronic Kidney Disease: Yes (mild renal insufficiecy.) - ENDOCRINE/METABOLIC Hx Endocrine Disorders: Yes Hx Hypothyroidism: Yes - HEMATOLOGICAL/ONCOLOGICAL Hx Blood Disorders: Yes Hx Anemia: Yes Hx Human Immunodeficiency Virus (HIV): No - INTEGUMENTARY Hx Dermatological Problems: No - MUSCULOSKELETAL/RHEUMATOLOGICAL Hx Musculoskeletal Disorders: Yes Hx Arthritis: Yes Hx Rheumatoid Arthritis: No - GASTROINTESTINAL Hx Gastrointestinal Disorders: Yes Hx Gastritis: Yes - GENITOURINARY/GYNECOLOGICAL Hx Genitourinary Disorders: Yes Hx Incontinence: Yes Hx Urinary Tract Infection: Yes - PSYCHIATRIC Hx Psychophysiologic Disorder: Yes Hx Anxiety: Yes Hx Depression: Yes - SURGICAL HISTORY Hx Surgeries: Yes Hx Cholecystectomy: Yes Hx Coronary Artery Bypass Graft: Yes (x4) Hx Coronary Stent: Yes - ANESTHESIA Hx Anesthesia: Yes Hx Anesthesia Reactions: No Hx Malignant Hyperthermia: No Meds Allergies/Adverse Reactions: Allergies Allergy/AdvReac Type Severity Reaction Status Date / Time kiwi Allergy Mild RASH Verified 04/19/18 21:53 morphine Allergy Mild RASH Verified 04/19/18 21:53 Penicillins Allergy Mild RASH Verified 04/19/18 21:53 pineapple Allergy Mild RASH Verified 04/19/18 21:53 watermelon Allergy Mild RASH Verified 04/19/18 21:53 Physical Exam - Constitutional Appears: No Acute Distress, Chronically Ill - Head Exam Head Exam: NORMAL INSPECTION - Eye Exam Eye Exam: PERRL (R eye, L eye blind) - ENT Exam Additional comments: d of hearing R - Neck Exam Neck exam: Positive for: Normal Inspection - Respiratory Exam Respiratory Exam: Decreased Breath Sounds - Cardiovascular Exam Cardiovascular Exam: REGULAR RHYTHM - GI/Abdominal Exam GI & Abdominal Exam: Hypoactive Bowel Sounds, Soft - Extremities Exam Extremities exam: Positive for: tenderness (R-L knee) Additional comments: L TMA - Back Exam Back exam: tenderness (mild) - Neurological Exam Neurological exam: Alert Additional comments: Ox2, forgetful follows commands, generalized weakness. - Psychiatric Exam Psychiatric exam: Anxious - Skin Skin Exam: Normal Color, Warm Results - Vital Signs Recent Vital Signs: Last Vital Signs Temp 97.6 F 05/25/18 10:25 Pulse 76 05/25/18 10:25 Resp 20 05/25/18 10:25 BP 148/63 05/25/18 10:25 Pulse Ox 98 05/25/18 10:25 rafy Luna - Labs Result Diagrams: 05/25/18 08:23 05/25/18 08:23 Labs: Laboratory Results - last 24 hr 05/24/18 05/24/18 05/24/18 21:01 21:01 21:01 WBC 17.0 H D RBC 3.69 L Hgb 11.5 L Hct 34.9 MCV 94.8 MCH 31.2 H MCHC 32.9 L RDW 14.1 Plt Count 255 D MPV 8.1 Neut % (Auto) 79.6 H Lymph % (Auto) 13.2 L [place] % (Auto) 5.4 Eos % (Auto) 1.4 Baso % (Auto) 0.4 Neut # (Auto) 13.5 H Lymph # (Auto) 2.2 [place] # (Auto) 0.9 H Eos # (Auto) 0.2 Baso # (Auto) 0.1 PT 10.9 INR 1.0 APTT 33.9 Sodium 140 Potassium 4.2 Chloride 103 Carbon Dioxide 31 H Anion Gap 10 BUN 23 H Creatinine 1.9 H Est GFR ( Amer) 31 Est GFR (Non-Af Amer) 25 POC Glucose (mg/dL) Random Glucose 64 L Hemoglobin A1c Calcium 9.5 Phosphorus Magnesium Total Bilirubin 0.5 AST 27 ALT 24 Alkaline Phosphatase 80 Troponin I < 0.0120 NT-Pro-B Natriuret Pep Total Protein 7.8 Albumin 3.9 Globulin 4.0 H Albumin/Globulin Ratio 1.0 Triglycerides Cholesterol LDL Cholesterol Direct HDL Cholesterol Thyroxine (T4) TSH 3rd Generation Urine Color Urine Clarity Urine pH Ur Specific [place] Urine Protein Urine Glucose (UA) Urine Ketones Urine Blood Urine Nitrate Urine Bilirubin Urine Urobilinogen Ur Leukocyte Esterase Urine Microscopic WBC Ur Squamous Epith Cells 05/24/18 05/24/18 05/24/18 21:11 21:46 22:00 WBC RBC Hgb Hct MCV MCH MCHC RDW Plt Count MPV Neut % (Auto) Lymph % (Auto) [place] % (Auto) Eos % (Auto) Baso % (Auto) Neut # (Auto) Lymph # (Auto) [place] # (Auto) Eos # (Auto) Baso # (Auto) PT INR APTT Sodium Potassium Chloride Carbon Dioxide Anion Gap BUN Creatinine Est GFR ( Amer) Est GFR (Non-Af Amer) POC Glucose (mg/dL) 60 L 90 Random Glucose Hemoglobin A1c Calcium Phosphorus Magnesium Total Bilirubin AST ALT Alkaline Phosphatase Troponin I NT-Pro-B Natriuret Pep 901 H Total Protein Albumin Globulin Albumin/Globulin Ratio Triglycerides Cholesterol LDL Cholesterol Direct HDL Cholesterol Thyroxine (T4) TSH 3rd Generation Urine Color Urine Clarity Urine pH Ur Specific [place] Urine Protein Urine Glucose (UA) Urine Ketones Urine Blood Urine Nitrate Urine Bilirubin Urine Urobilinogen Ur Leukocyte Esterase Urine Microscopic WBC Ur Squamous Epith Cells 05/25/18 05/25/18 05/25/18 08:23 08:23 08:23 WBC 12.6 H RBC 3.32 L Hgb 10.7 L Hct 31.5 L MCV 94.7 MCH 32.3 H MCHC 34.1 RDW 13.9 Plt Count 216 MPV 8.0 Neut % (Auto) 68.4 Lymph % (Auto) 22.4 [place] % (Auto) 6.5 Eos % (Auto) 1.7 Baso % (Auto) 1.0 Neut # (Auto) 8.6 H Lymph # (Auto) 2.8 [place] # (Auto) 0.8 Eos # (Auto) 0.2 Baso # (Auto) 0.1 PT INR APTT Sodium 139 Potassium 4.4 Chloride 102 Carbon Dioxide 32 H Anion Gap 9 L BUN 23 H Creatinine 2.0 H Est GFR ( Amer) 29 Est GFR (Non-Af Amer) 24 POC Glucose (mg/dL) Random Glucose 123 H Hemoglobin A1c 7.3 H Calcium 9.3 Phosphorus 3.5 Magnesium 1.9 Total Bilirubin 0.5 AST 20 ALT 24 Alkaline Phosphatase 69 Troponin I NT-Pro-B Natriuret Pep 1380 H Total Protein 7.0 Albumin 3.2 L Globulin 3.8 Albumin/Globulin Ratio 0.8 L Triglycerides 144 Cholesterol 183 LDL Cholesterol Direct 84 HDL Cholesterol 40 Thyroxine (T4) 7.07 TSH 3rd Generation 15.30 H Urine Color Urine Clarity Urine pH Ur Specific [place] Urine Protein Urine Glucose (UA) Urine Ketones Urine Blood Urine Nitrate Urine Bilirubin Urine Urobilinogen Ur Leukocyte Esterase Urine Microscopic WBC Ur Squamous Epith Cells 05/25/18 10:27 WBC RBC Hgb Hct MCV MCH MCHC RDW Plt Count MPV Neut % (Auto) Lymph % (Auto) [place] % (Auto) Eos % (Auto) Baso % (Auto) Neut # (Auto) Lymph # (Auto) [place] # (Auto) Eos # (Auto) Baso # (Auto) PT INR APTT Sodium Potassium Chloride Carbon Dioxide Anion Gap BUN Creatinine Est GFR ( Amer) Est GFR (Non-Af Amer) POC Glucose (mg/dL) Random Glucose Hemoglobin A1c Calcium Phosphorus Magnesium Total Bilirubin AST ALT Alkaline Phosphatase Troponin I NT-Pro-B Natriuret Pep Total Protein Albumin Globulin Albumin/Globulin Ratio Triglycerides Cholesterol LDL Cholesterol Direct HDL Cholesterol Thyroxine (T4) TSH 3rd Generation Urine Color Yellow Urine Clarity Slighty-cloudy Urine pH 5.0 Ur Specific [place] 1.011 Urine Protein 100 Urine Glucose (UA) Neg Urine Ketones Negative Urine Blood Negative Urine Nitrate Negative Urine Bilirubin Negative Urine Urobilinogen 0.2-1.0 Ur Leukocyte Esterase Small Urine Microscopic WBC 9 H Ur Squamous Epith Cells 1 reviewed J.P. - EKG Data EKG comments: reviewed J.P. - Imaging and Cardiology Chest x-ray Status: Report reviewed by me (J.P.) Assessment & Plan (1) Chest pain Status: Acute (2) Diabetes mellitus with hyperglycemia Status: Acute Priority: High (3) HTN (hypertension) Status: Chronic Priority: High (4) Generalized weakness Status: Chronic Priority: High (5) CAD (coronary artery disease) Status: Chronic Priority: Medium (6) Hx of CABG Status: Chronic Priority: Medium - Assessment and Plan (Free Text) Plan: F/U Blood C-S, U C-S. Continue NC 2 L/M, ASA, Lasix, Coreg, Lipitor, Insulin, Pyridium, Neurontin, Xanax and rest of Tx. Cardiology consult. - Date & Time Date: 05/25/18 Time: 13:30
--- NOTE | 2018-05-25 18:17 | CP.PCM.CON ---
History of Present Illness - History of Present Illness History of Present Illness: I was asked to see patient by Dr Oliver. Routine chemistry tutor is DR Reid. Patient is a 78 year old female with HTN, hypercholesteriolemia bed bound who presents with nausea and chest pain. The patient is a poor historian and cannot give adequate history. She states she has no chest pain. Review of Systems - Review of Systems Systems not reviewed;Unavailable: Dementia Past Patient History - Infectious Disease Hx of Infectious Diseases: None - Tetanus Immunizations Tetanus Immunization: Unknown - Past Medical History & Family History Past Medical History?: Yes - Past Social History Smoking Status: Never Smoked - CARDIAC Hx Congestive Heart Failure: Yes Hx Hypercholesterolemia: Yes Hx Hypertension: Yes Hx Pacemaker: Yes Hx Peripheral Edema: Yes - PULMONARY Hx Asthma: Yes Hx Bronchitis: Yes Hx Chronic Obstructive Pulmonary Disease (COPD): Yes Hx Pneumonia: Yes - NEUROLOGICAL Hx Dementia: Yes Hx Seizures: Yes - HEENT Hx HEENT Problems: Yes Hx Blind: Yes (left eye) Other/Comment: Hard of hear R ear., left eye blind - RENAL Hx Chronic Kidney Disease: Yes (mild renal insufficiecy.) - ENDOCRINE/METABOLIC Hx Hypothyroidism: Yes - HEMATOLOGICAL/ONCOLOGICAL Hx Anemia: Yes Hx Human Immunodeficiency Virus (HIV): No - INTEGUMENTARY Hx Dermatological Problems: No - MUSCULOSKELETAL/RHEUMATOLOGICAL Hx Arthritis: Yes Hx Falls: No Hx Rheumatoid Arthritis: No - GASTROINTESTINAL Hx Gastritis: Yes - GENITOURINARY/GYNECOLOGICAL Hx Genitourinary Disorders: Yes Hx Incontinence: Yes Hx Urinary Tract Infection: Yes - PSYCHIATRIC Hx Anxiety: Yes Hx Depression: Yes Hx Substance Use: No - SURGICAL HISTORY Hx Cholecystectomy: Yes Hx Coronary Artery Bypass Graft: Yes (x4) Hx Coronary Stent: Yes - ANESTHESIA Hx Anesthesia: Yes Hx Anesthesia Reactions: No Hx Malignant Hyperthermia: No Meds Allergies/Adverse Reactions: Allergies Allergy/AdvReac Type Severity Reaction Status Date / Time kiwi Allergy Mild RASH Verified 04/19/18 21:53 morphine Allergy Mild RASH Verified 04/19/18 21:53 Penicillins Allergy Mild RASH Verified 04/19/18 21:53 pineapple Allergy Mild RASH Verified 04/19/18 21:53 watermelon Allergy Mild RASH Verified 04/19/18 21:53 - Medications Medications: Current Medications Acetaminophen/Codeine Phosphate (Tylenol/Codeine 300 Mg/30 Mg) 1 tab PO Q6 PRN PRN Reason: Pain, severe (8-10) Alprazolam (Xanax) 0.25 mg PO BID PRN PRN Reason: Anxiety Stop: 06/01/18 12:47 Aspirin (Ecotrin) 81 mg PO DAILY [facility] Last Admin: 05/25/18 15:09 Dose: 81 mg Atorvastatin Calcium (Lipitor) 40 mg PO [facility] Carvedilol (Coreg) 3.125 mg PO DAILY [facility] Last Admin: 05/25/18 15:08 Dose: 3.125 mg Docusate Sodium (Colace) 100 mg PO DAILY [facility] Last Admin: 05/25/18 15:08 Dose: 100 mg Ferrous Sulfate (Feosol) 325 mg PO DAILY [facility] Last Admin: 05/25/18 15:09 Dose: 325 mg Furosemide (Lasix) 40 mg IVP DAILY [facility] Last Admin: 05/25/18 15:08 Dose: 40 mg Gabapentin (Neurontin) 100 mg PO BID PRN PRN Reason: Nerve pain/neuropathy Last Admin: 05/25/18 15:04 Dose: 100 mg Home Med (Calcium Carbonate/Vitamin D3 [Calcium 600 + Vit D Tablet]) 600 mg PO DAILY [facility] Home Med (Insulin Aspar/Insulin N 70/30 [Novolog Mix 70/30-U/Ml 3ml]) 100 unit SC PRN PRN PRN Reason: Serum glucose Home Med (Ranolazine [Ranexa]) 1,000 mg PO BID [facility] Insulin Lispro Protam/Lispro Human (Humalog Mix 75/25) 0 units SC [facility] PRN Reason: Protocol Lactulose (Enulose) 30 gm PO DAILY PRN PRN Reason: Constipation Loratadine (Claritin) 10 mg PO DAILY [facility] Last Admin: 05/25/18 15:04 Dose: 10 mg Phenazopyridine HCl (Pyridium) 200 mg PO BID PRN PRN Reason: Dysuria Last Admin: 05/25/18 15:04 Dose: 200 mg Physical Exam - Constitutional Appears: Non-toxic - Head Exam Head Exam: NORMAL INSPECTION - Eye Exam Eye Exam: Normal appearance - ENT Exam ENT Exam: Mucous Membranes Moist - Neck Exam Neck exam: Positive for: Full Rom - Respiratory Exam Respiratory Exam: Decreased Breath Sounds - Cardiovascular Exam Cardiovascular Exam: REGULAR RHYTHM - GI/Abdominal Exam GI & Abdominal Exam: Normal Bowel Sounds - Rectal Exam Rectal Exam: Deferred - Extremities Exam Extremities exam: Negative for: pedal edema - Back Exam Back exam: NORMAL INSPECTION - Neurological Exam Neurological exam: Alert - Psychiatric Exam Psychiatric exam: Normal Affect - Skin Skin Exam: Normal Color Results - Vital Signs Recent Vital Signs: Last Vital Signs Temp 98.1 F 05/25/18 15:51 Pulse 87 05/25/18 15:51 Resp 20 05/25/18 15:51 BP 145/79 05/25/18 15:51 Pulse Ox 90 L 05/25/18 15:51 - Labs Result Diagrams: 05/25/18 08:23 05/25/18 08:23 Labs: Laboratory Results - last 24 hr 05/24/18 05/24/18 05/24/18 21:01 21:01 21:01 WBC 17.0 H D RBC 3.69 L Hgb 11.5 L Hct 34.9 MCV 94.8 MCH 31.2 H MCHC 32.9 L RDW 14.1 Plt Count 255 D MPV 8.1 Neut % (Auto) 79.6 H Lymph % (Auto) 13.2 L [place] % (Auto) 5.4 Eos % (Auto) 1.4 Baso % (Auto) 0.4 Neut # (Auto) 13.5 H Lymph # (Auto) 2.2 [place] # (Auto) 0.9 H Eos # (Auto) 0.2 Baso # (Auto) 0.1 PT 10.9 INR 1.0 APTT 33.9 Sodium 140 Potassium 4.2 Chloride 103 Carbon Dioxide 31 H Anion Gap 10 BUN 23 H Creatinine 1.9 H Est GFR ( Amer) 31 Est GFR (Non-Af Amer) 25 POC Glucose (mg/dL) Random Glucose 64 L Hemoglobin A1c Calcium 9.5 Phosphorus Magnesium Total Bilirubin 0.5 AST 27 ALT 24 Alkaline Phosphatase 80 Troponin I < 0.0120 NT-Pro-B Natriuret Pep Total Protein 7.8 Albumin 3.9 Globulin 4.0 H Albumin/Globulin Ratio 1.0 Triglycerides Cholesterol LDL Cholesterol Direct HDL Cholesterol Thyroxine (T4) TSH 3rd Generation Urine Color Urine Clarity Urine pH Ur Specific [place] Urine Protein Urine Glucose (UA) Urine Ketones Urine Blood Urine Nitrate Urine Bilirubin Urine Urobilinogen Ur Leukocyte Esterase Urine Microscopic WBC Ur Squamous Epith Cells 05/24/18 05/24/18 05/24/18 21:11 21:46 22:00 WBC RBC Hgb Hct MCV MCH MCHC RDW Plt Count MPV Neut % (Auto) Lymph % (Auto) [place] % (Auto) Eos % (Auto) Baso % (Auto) Neut # (Auto) Lymph # (Auto) [place] # (Auto) Eos # (Auto) Baso # (Auto) PT INR APTT Sodium Potassium Chloride Carbon Dioxide Anion Gap BUN Creatinine Est GFR ( Amer) Est GFR (Non-Af Amer) POC Glucose (mg/dL) 60 L 90 Random Glucose Hemoglobin A1c Calcium Phosphorus Magnesium Total Bilirubin AST ALT Alkaline Phosphatase Troponin I NT-Pro-B Natriuret Pep 901 H Total Protein Albumin Globulin Albumin/Globulin Ratio Triglycerides Cholesterol LDL Cholesterol Direct HDL Cholesterol Thyroxine (T4) TSH 3rd Generation Urine Color Urine Clarity Urine pH Ur Specific [place] Urine Protein Urine Glucose (UA) Urine Ketones Urine Blood Urine Nitrate Urine Bilirubin Urine Urobilinogen Ur Leukocyte Esterase Urine Microscopic WBC Ur Squamous Epith Cells 05/25/18 05/25/18 05/25/18 08:23 08:23 08:23 WBC 12.6 H RBC 3.32 L Hgb 10.7 L Hct 31.5 L MCV 94.7 MCH 32.3 H MCHC 34.1 RDW 13.9 Plt Count 216 MPV 8.0 Neut % (Auto) 68.4 Lymph % (Auto) 22.4 [place] % (Auto) 6.5 Eos % (Auto) 1.7 Baso % (Auto) 1.0 Neut # (Auto) 8.6 H Lymph # (Auto) 2.8 [place] # (Auto) 0.8 Eos # (Auto) 0.2 Baso # (Auto) 0.1 PT INR APTT Sodium 139 Potassium 4.4 Chloride 102 Carbon Dioxide 32 H Anion Gap 9 L BUN 23 H Creatinine 2.0 H Est GFR ( Amer) 29 Est GFR (Non-Af Amer) 24 POC Glucose (mg/dL) Random Glucose 123 H Hemoglobin A1c 7.3 H Calcium 9.3 Phosphorus 3.5 Magnesium 1.9 Total Bilirubin 0.5 AST 20 ALT 24 Alkaline Phosphatase 69 Troponin I NT-Pro-B Natriuret Pep 1380 H Total Protein 7.0 Albumin 3.2 L Globulin 3.8 Albumin/Globulin Ratio 0.8 L Triglycerides 144 Cholesterol 183 LDL Cholesterol Direct 84 HDL Cholesterol 40 Thyroxine (T4) 7.07 TSH 3rd Generation 15.30 H Urine Color Urine Clarity Urine pH Ur Specific [place] Urine Protein Urine Glucose (UA) Urine Ketones Urine Blood Urine Nitrate Urine Bilirubin Urine Urobilinogen Ur Leukocyte Esterase Urine Microscopic WBC Ur Squamous Epith Cells 05/25/18 05/25/18 05/25/18 10:27 15:30 16:29 WBC RBC Hgb Hct MCV MCH MCHC RDW Plt Count MPV Neut % (Auto) Lymph % (Auto) [place] % (Auto) Eos % (Auto) Baso % (Auto) Neut # (Auto) Lymph # (Auto) [place] # (Auto) Eos # (Auto) Baso # (Auto) PT INR APTT Sodium Potassium Chloride Carbon Dioxide Anion Gap BUN Creatinine Est GFR ( Amer) Est GFR (Non-Af Amer) POC Glucose (mg/dL) 366 H Random Glucose Hemoglobin A1c Calcium Phosphorus Magnesium Total Bilirubin AST ALT Alkaline Phosphatase Troponin I < 0.0120 NT-Pro-B Natriuret Pep Total Protein Albumin Globulin Albumin/Globulin Ratio Triglycerides Cholesterol LDL Cholesterol Direct HDL Cholesterol Thyroxine (T4) TSH 3rd Generation Urine Color Yellow Urine Clarity Slighty-cloudy Urine pH 5.0 Ur Specific [place] 1.011 Urine Protein 100 Urine Glucose (UA) Neg Urine Ketones Negative Urine Blood Negative Urine Nitrate Negative Urine Bilirubin Negative Urine Urobilinogen 0.2-1.0 Ur Leukocyte Esterase Small Urine Microscopic WBC 9 H Ur Squamous Epith Cells 1 - EKG Data EKG Interpreted by: Myself Assessment & Plan (1) Chest pain, atypical Assessment and Plan: patient does not have active chest pain. recommend medical therapy and blood pressure control. Status: Acute Priority: High (2) HTN (hypertension) Assessment and Plan: medical therapy Status: Acute
[2018-05-26 06:12] LABS: HEMOGLOBIN 10.4 g/dL (12.0-16.0); MEAN CORPUSCULAR HEMOGLOBIN 31.8 pg (27.0-31.0); MEAN CORPUSCULAR HGB CONC 33.5 g/dL (33.0-37.0); RBC 3.27 Mil/uL (3.80-5.20); RED CELL DISTRIBUTION WIDTH 14.1 % (11.5-14.5); WHITE BLOOD COUNT 8.1 K/uL (4.8-10.8)
[2018-05-26 06:19] LABS: CALCIUM 9.2 mg/dL (8.4-10.2)
[2018-05-26 08:19] VITALS: RESP 20
[2018-05-26] MEDS ORDERED: Calcium-Vit D 500 mg-200 Units Tab UD PO SCH (09:00)
[2018-05-26] MEDS: Ranolazine 500 mg Extended Release Tablets PO SCH ×2 (10:04→16:47)
[2018-05-26] MEDS ORDERED: Lactulose 10 gm/15 ml Syrup PO PRN (11:45)
[2018-05-26] MEDS: Insulin Lispro Mix 75/25 100 units/ml (HumaLog) 10ml SC SCH ×3 (12:30→16:50)
[2018-05-26] MEDS ORDERED: Insulin Lispro (humaLOG) 100 Units/ml Inj SC ONE ×2 (14:30→16:18)
--- NOTE | 2018-05-26 17:32 | CP.PCM.PN ---
Objective - Vital Signs/Intake and Output Vital Signs (last 24 hours): Temp Pulse Resp BP Pulse Ox 98.1 F 71 20 167/76 H 99 05/26/18 16:02 05/26/18 16:02 05/26/18 16:02 05/26/18 16:02 05/26/18 16:02 - Medications Medications: Current Medications Acetaminophen/Codeine Phosphate (Tylenol/Codeine 300 Mg/30 Mg) 1 tab PO Q6 PRN PRN Reason: Pain, severe (8-10) Last Admin: 05/26/18 10:09 Dose: 1 tab Alprazolam (Xanax) 0.25 mg PO BID PRN PRN Reason: Anxiety Stop: 06/01/18 12:47 Aspirin (Ecotrin) 81 mg PO DAILY [facility] Last Admin: 05/26/18 10:01 Dose: 81 mg Atorvastatin Calcium (Lipitor) 40 mg PO HS [facility] Last Admin: 05/25/18 21:23 Dose: 40 mg Calcium/Vitamin D (Oyster Shell Calcium/Vitamin D 500 Mg-200 Iu) 1 tab PO DAILY [facility] Last Admin: 05/26/18 10:25 Dose: 1 tab Carvedilol (Coreg) 3.125 mg PO DAILY [facility] Last Admin: 05/26/18 10:00 Dose: 3.125 mg Docusate Sodium (Colace) 100 mg PO DAILY [facility] Last Admin: 05/26/18 10:00 Dose: 100 mg Ferrous Sulfate (Feosol) 325 mg PO DAILY [facility] Last Admin: 05/26/18 10:01 Dose: 325 mg Furosemide (Lasix) 40 mg IVP DAILY [facility] Last Admin: 05/26/18 10:02 Dose: 40 mg Gabapentin (Neurontin) 100 mg PO BID PRN PRN Reason: Nerve pain/neuropathy Last Admin: 05/25/18 15:04 Dose: 100 mg Insulin Lispro Protam/Lispro Human (Humalog Mix 75/25) 0 units SC [facility] PRN Reason: Protocol Last Admin: 05/26/18 16:50 Dose: 8 units Lactulose (Enulose) 30 gm PO DAILY PRN PRN Reason: Constipation Loratadine (Claritin) 10 mg PO DAILY [facility] Last Admin: 05/26/18 09:59 Dose: 10 mg Phenazopyridine HCl (Pyridium) 200 mg PO BID PRN PRN Reason: Dysuria Last Admin: 05/25/18 15:04 Dose: 200 mg Ranolazine (Ranexa) 1,000 mg PO BID [facility] Last Admin: 05/26/18 16:47 Dose: 1,000 mg - Labs Labs: 05/26/18 05:30 05/26/18 05:30 PT 10.9 Seconds (9.8-13.1) 05/24/18 21:01 INR 1.0 05/24/18 21:01 APTT 33.9 Seconds (25.6-37.1) 05/24/18 21:01 Assessment and Plan (1) Chest pain Status: Acute (2) Diabetes mellitus with hyperglycemia Status: Acute (3) HTN (hypertension) Status: Chronic (4) Generalized weakness Status: Chronic (5) CAD (coronary artery disease) Status: Chronic (6) Hx of CABG Status: Chronic
--- NOTE | 2018-05-26 17:48 | CP.PCM.DIS ---
Provider - Provider Date of Admission: 05/24/18 23:28 Attending physician: Sridhar Oliver MD Diagnosis - Discharge Diagnosis (1) Chest pain Status: Acute (2) Diabetes mellitus with hyperglycemia Status: Acute Priority: High (3) HTN (hypertension) Status: Chronic Priority: High (4) Generalized weakness Status: Chronic Priority: High (5) CAD (coronary artery disease) Status: Chronic Priority: Medium (6) Hx of CABG Status: Chronic Priority: Medium Hospital Course - Lab Results Lab Results: Micro Results 05/24/18 21:01 Blood-Venous Blood Culture - Preliminary NO GROWTH AFTER 24 HOURS 05/24/18 21:01 Blood-Venous Blood Culture - Preliminary NO GROWTH AFTER 24 HOURS Most Recent Lab Values WBC 8.1 K/uL (4.8-10.8) 05/26/18 05:30 RBC 3.27 Mil/uL (3.80-5.20) L 05/26/18 05:30 Hgb 10.4 g/dL (12.0-16.0) L 05/26/18 05:30 Hct 31.0 % (34.0-47.0) L 05/26/18 05:30 MCV 95.0 fl (81.0-99.0) 05/26/18 05:30 MCH 31.8 pg (27.0-31.0) H 05/26/18 05:30 MCHC 33.5 g/dL (33.0-37.0) 05/26/18 05:30 RDW 14.1 % (11.5-14.5) 05/26/18 05:30 Plt Count 212 K/uL (130-400) 05/26/18 05:30 MPV 8.0 fl (7.2-11.7) 05/25/18 08:23 Neut % (Auto) 68.4 % (50.0-75.0) 05/25/18 08:23 Lymph % (Auto) 22.4 % (20.0-40.0) 05/25/18 08:23 [place] % (Auto) 6.5 % (0.0-10.0) 05/25/18 08:23 Eos % (Auto) 1.7 % (0.0-4.0) 05/25/18 08:23 Baso % (Auto) 1.0 % (0.0-2.0) 05/25/18 08:23 Neut # (Auto) 8.6 K/uL (1.8-7.0) H 05/25/18 08:23 Lymph # (Auto) 2.8 K/uL (1.0-4.3) 05/25/18 08:23 [place] # (Auto) 0.8 K/uL (0.0-0.8) 05/25/18 08: Eos # (Auto) 0.2 K/uL (0.0-0.7) 05/25/18 08:23 Baso # (Auto) 0.1 K/uL (0.0-0.2) 05/25/18 08: PT 10.9 Seconds (9.8-13.1) 05/24/18 21:01 INR 1.0 05/24/18 21:01 APTT 33.9 Seconds (25.6-37.1) 05/24/18 21:01 Sodium 140 mmol/l (132-148) 05/26/18 05:30 Potassium 4.4 MMOL/L (3.6-5.0) 05/26/18 05:30 Chloride 100 mmol/L (98-107) 05/26/18 05:30 Carbon Dioxide 33 mmol/L (22-30) H 05/26/18 05:30 Anion Gap 11 (10-20) 05/26/18 05:30 BUN 26 mg/dl (7-17) H 05/26/18 05:30 Creatinine 2.2 mg/dl (0.7-1.2) H 05/26/18 05:30 Est GFR ( Amer) 26 05/26/18 05:30 Est GFR (Non-Af Amer) 21 05/26/18 05:30 POC Glucose (mg/dL) 393 mg/dL (65-110) H 05/26/18 15:45 Random Glucose 261 mg/dL (65-105) H 05/26/18 05:30 Hemoglobin A1c 7.3 % (4.2-6.5) H 05/25/18 08:23 Calcium 9.2 mg/dL (8.4-10.2) 05/26/18 05:30 Phosphorus 3.5 mg/dl (2.5-4.5) 05/25/18 08:23 Magnesium 1.9 MG/DL (1.6-2.3) 05/25/18 08:23 Total Bilirubin 0.5 mg/dl (0.2-1.3) 05/25/18 08:23 AST 20 U/L (14-36) 05/25/18 08:23 ALT 24 U/L (9-52) 05/25/18 08:23 Alkaline Phosphatase 69 U/L (38-126) 05/25/18 08:23 Troponin I < 0.0120 ng/mL (0.00-0.120) 05/25/18 21:00 NT-Pro-B Natriuret Pep 1380 pg/ml (0-900) H 05/25/18 08:23 Total Protein 7.0 G/DL (6.3-8.2) 05/25/18 08:23 Albumin 3.2 g/dL (3.5-5.0) L 05/25/18 08:23 Globulin 3.8 gm/dL (2.2-3.9) 05/25/18 08:23 Albumin/Globulin Ratio 0.8 (1.0-2.1) L 05/25/18 08:23 Triglycerides 144 mg/DL (0-149) 05/25/18 08:23 Cholesterol 183 mg/dL (0-199) 05/25/18 08:23 LDL Cholesterol Direct 84 mg/dL (0-129) 05/25/18 08:23 HDL Cholesterol 40 MG/DL (30-70) 05/25/18 08:23 Thyroxine (T4) 7.07 ug/dl (5.5-11.0) 05/25/18 08:23 TSH 3rd Generation 15.30 mIU/ML (0.46-4.68) H 05/25/18 08:23 Urine Color Yellow (YELLOW) 05/25/18 10:27 Urine Clarity Slighty-cloudy (Clear) 05/25/18 10:27 Urine pH 5.0 (5.0-8.0) 05/25/18 10:27 Ur Specific [place] 1.011 (1.003-1.030) 05/25/18 10:27 Urine Protein 100 mg/dL (NEGATIVE) 05/25/18 10:27 Urine Glucose (UA) Neg mg/dL (Normal) 05/25/18 10:27 Urine Ketones Negative mg/dL (NEGATIVE) 05/25/18 10:27 Urine Blood Negative (NEGATIVE) 05/25/18 10:27 Urine Nitrate Negative (NEGATIVE) 05/25/18 10:27 Urine Bilirubin Negative (NEGATIVE) 05/25/18 10:27 Urine Urobilinogen 0.2-1.0 mg/dL (0.2-1.0) 05/25/18 10:27 Ur Leukocyte Esterase Small [place]/uL (Negative) 05/25/18 10:27 Urine Microscopic WBC 9 /hpf (0-5) H 05/25/18 10:27 Ur Squamous Epith Cells 1 /hpf (0-5) 05/25/18 10:27 Discharge Exam - Head Exam Head Exam: NORMAL INSPECTION Discharge Plan - Follow Up Plan Condition: FAIR Disposition: HOME/ ROUTINE Instructions: Heart Failure, Adult (DC), Chest Pain (DC), Heart Disease in Women (DC), Heart Failure (DC), Heart Failure (GEN), Pacemaker (DC), Pacemaker ( GEN), Pulmonary Edema (DC), Pulmonary Edema (GEN), Ascites (DC), Ascites (GEN) Additional Instructions: follow up with Dr. Napoles on june 01 at 11am Referrals: Sridhar Oliver MD [Family Provider] - Lucita Napoles MD [Staff Provider] -
[2018-05-26 20:46] VITALS: BP 150/90; PULSE 85; TEMP 97.1; O2SAT 98
== END 2018-05-26 20:50 | disposition home or self-care (01) ==
LOC: H.ER 20:15 → H.ERHOLD 23:28 → H.TEL 05-25 10:02
PROVIDERS: ADMIT Internal Medicine Pulmonary Disease; ATTEND Internal Medicine Pulmonary Disease
DX: R07.89 Other chest pain (principal); I13.0 Hypertensive heart and chronic kidney disease with heart failure and stage 1 through stage 4 chronic kidney disease, or unspecified chronic kidney disease; I50.9 Heart failure, unspecified; I25.10 Atherosclerotic heart disease of native coronary artery without angina pectoris; N18.9 Chronic kidney disease, unspecified; J44.9 Chronic obstructive pulmonary disease, unspecified; F03.90 Unspecified dementia, unspecified severity, without behavioral disturbance, psychotic disturbance, mood disturbance, and anxiety; G89.29 Other chronic pain; E11.22 Type 2 diabetes mellitus with diabetic chronic kidney disease; E11.65 Type 2 diabetes mellitus with hyperglycemia; E03.9 Hypothyroidism, unspecified; E78.5 Hyperlipidemia, unspecified; E78.00 Pure hypercholesterolemia, unspecified; H54.62 Unqualified visual loss, left eye, normal vision right eye; Z74.01 Bed confinement status; Z87.01 Personal history of pneumonia (recurrent); Z87.440 Personal history of urinary (tract) infections; Z95.0 Presence of cardiac pacemaker; Z95.1 Presence of aortocoronary bypass graft; Z95.5 Presence of coronary angioplasty implant and graft; Z79.82 Long term (current) use of aspirin; F41.9 Anxiety disorder, unspecified; M19.90 Unspecified osteoarthritis, unspecified site; Z88.6 Allergy status to analgesic agent; Z88.0 Allergy status to penicillin; R07.9 Chest pain, unspecified

== ENCOUNTER 2018-06-11 16:02 | Inpatient (IN) | payer MEDICAID ==
[2018-06-11 16:02] VITALS: BMI 29.3
[2018-06-11 17:07] LABS: VENOUS BLOOD GAS BASE EXCESS 10.1 mmol/L (0.0-2.0); VENOUS BLOOD GAS PCO2 59 mmHg (40-60); VENOUS BLOOD GAS PO2 59 mm/Hg (30-55)
[2018-06-11 17:13] LABS: BASO # 0.1 K/uL (0.0-0.2); BASO % 0.5 % (0.0-2.0); EOS # 0.2 K/uL (0.0-0.7); EOS % 1.4 % (0.0-4.0); HEMOGLOBIN 10.1 g/dL (12.0-16.0); LYMPH # 1.5 K/uL (1.0-4.3); LYMPH % 13.8 % (20.0-40.0); MEAN CELL VOLUME 95.9 fl (81.0-99.0); MEAN CORPUSCULAR HEMOGLOBIN 31.8 pg (27.0-31.0); MEAN CORPUSCULAR HGB CONC 33.2 g/dL (33.0-37.0); MEAN PLATELET VOLUME 8.9 fl (7.2-11.7); MONO # 0.7 K/uL (0.0-0.8); MONO % 6.7 % (0.0-10.0); NEUT # 8.5 K/uL (1.8-7.0); NEUT % 77.6 % (50.0-75.0); RBC 3.17 Mil/uL (3.80-5.20); RED CELL DISTRIBUTION WIDTH 14.5 % (11.5-14.5); WHITE BLOOD COUNT 10.9 K/uL (4.8-10.8)
--- NOTE | 2018-06-11 17:15 | RAD ---
Date of service: 06/11/2018 HISTORY: Dyspnea, admission COMPARISON: 05/24/2018 FINDINGS: LUNGS: Mild diffuse interstitial change is once again appreciated with areas of mild scarring in the left upper lobe and lower lung matthew. Mild increase in subsegmental atelectasis or volume loss is seen at the lung bases. Vasculature may also be mildly congested. PLEURA: No definite effusion. No pneumothorax. CARDIOVASCULAR: Heart is enlarged. There is evidence of prior median sternotomy. Mild vascular congestion is not excluded. OSSEOUS STRUCTURES: No significant abnormalities. VISUALIZED UPPER ABDOMEN: Normal. OTHER FINDINGS: None. IMPRESSION: Possible mild vascular congestion. Mild increase in bibasilar volume loss. Underlying interstitial change and scarring.
[2018-06-11 17:19] LABS: PROTHROMBIN TIME 11.5 Seconds (9.8-13.1)
[2018-06-11 17:21] LABS: PARTIAL THROMBOPLASTIN TIME 32.4 Seconds (25.6-37.1)
[2018-06-11 17:33] LABS: B-TYPE NATRIURETIC PEPTIDE 1040 pg/ml (0-900)
[2018-06-11 17:40] LABS: ALB/GLOB RATIO 0.9 (1.0-2.1); ALBUMIN 3.2 g/dL (3.5-5.0); ALT/SGPT 25 U/L (9-52); AST/SGOT 22 U/L (14-36); BLOOD UREA NITROGEN 39 mg/dl (7-17); GFR NON-AFRICAN AMERICAN 21; LIPASE 13 U/L (23-300)
--- NOTE | 2018-06-11 18:28 | ED PDOC ---
HPI: Chest Pain Time Seen by Provider: 06/11/18 16:40 Chief Complaint (Nursing): Shortness Of Breath Chief Complaint (Provider): Chest Pain History Per: Patient, Family, Grocery Clerk ([id number]) History/Exam Limitations: physical impairment (hearing difficulties) Onset/Duration Of Symptoms: Days (x1) Current Symptoms Are (Timing): Still Present Additional Complaint(s): 78 year old female presenting for evaluation of chest pain x1 day. HPI is limited secondary to hearing difficulties of patient and her . Son in room is deaf and speaks in sign language. Patient is presenting with chest pain since 0800 and says she noticed some difficulty breathing. Attempts to get further information unsuccessful due to patient's hearing difficulty with arts and sciences dean. Patient follows up with Dr. Oliver and has been in this hospital multiple times in the past. reports patient has a past medical history significant for open heart surgery, diabetes, hypertension, cholecystectomy, and "bladder problems". All report patient's compliance with medications: Aspirin, Coreg, Ranexa, Lipitor, Colace, Feosol, Lasix, Neurontin. Patient states she lives at home with and son and receives help from her 2 daughters who live nearby. Patient denies any recent illness. Unable to obtain rest of HPI. PMD Dr. Oliver Past Medical History Reviewed: Historical Data, Nursing Documentation, Vital Signs Vital Signs: Last Vital Signs Temp 98.5 F 06/11/18 21:25 Pulse 69 06/11/18 22:40 Resp 18 06/11/18 22:40 BP 141/61 06/11/18 22:40 Pulse Ox 86 L 06/11/18 22:50 - Medical History PMH: Anemia, Anxiety, Arthritis, Asthma, Back Problems, Bronchitis, CAD, CHF, COPD, Dementia, Depression, Diabetes, Gastritis, HTN, Hypercholesterolemia, Hyperlipidemia, Hypothyroidism, Peripheral Edema, Pneumonia, Chronic Kidney Disease (mild renal insufficiecy.), Seizures Denies: HIV, Rheumatoid Arthritis - Surgical History Surgical History: CABG (x4), Cholecystectomy, Coronary Stent, Pacemaker - Family History Family History: States: Unknown Family Hx - Living Arrangements Living Arrangements: With Family (at home with and son; receives help from 2 daughters who live nearby) - Home Medications Home Medications: Ambulatory Orders Medication Instructions Recorded Aspirin [Ecotrin] 81 mg PO DAILY 04/18/17 Carvedilol [Coreg] 3.125 mg PO DAILY 01/12/17 Ranolazine [Ranexa] 1,000 mg PO BID 01/12/17 Atorvastatin [Lipitor] 40 mg PO HS 02/01/17 Acetaminophen/Codeine 1 tab PO Q6 PRN 03/12/18 [Tylenol/Codeine 300 MG/30 MG] Ferrous Sulfate [Feosol] 325 mg PO DAILY 03/12/18 Furosemide [Lasix] 20 mg PO QOTHERDAY 03/12/18 Gabapentin [Neurontin] 100 mg PO BID PRN 03/12/18 Loratadine [Claritin] 10 mg PO DAILY 03/12/18 Phenazopyridine [Pyridium] 200 mg PO BID PRN 03/12/18 ALPRAZolam [Xanax] 0.25 mg PO BID PRN 04/20/18 Calcium Carbonate/Vitamin D3 600 mg PO DAILY 04/23/18 [Calcium 600 + Vit D Tablet] Insulin Aspar/Insulin N 70/30 100 unit SC PRN PRN 05/25/18 [Novolog Mix 70/30-U/ml 3Ml] Insulin Lispro Mix 75/25 [HumaLog 0 units SC AC vial 05/26/18 MIX 75/25] - Allergies Allergies/Adverse Reactions: Allergies Allergy/AdvReac Type Severity Reaction Status Date / Time kiwi Allergy Mild RASH Verified 06/11/18 16:06 morphine Allergy Mild RASH Verified 06/11/18 16:06 Penicillins Allergy Mild RASH Verified 06/11/18 16:06 pineapple Allergy Mild RASH Verified 06/11/18 16:06 watermelon Allergy Mild RASH Verified 06/11/18 16:06 Review of Systems ROS Statement: Except As Marked, All Systems Reviewed And Found Negative Cardiovascular: Positive for: Chest Pain Respiratory: Positive for: Other (difficulty breathing) Physical Exam - Reviewed Nursing Documentation Reviewed: Yes Vital Signs Reviewed: Yes - Physical Exam Appears: Positive for: Non-toxic, No Acute Distress Head Exam: Positive for: ATRAUMATIC, NORMAL INSPECTION, NORMOCEPHALIC Skin: Positive for: Normal Color, Warm. Negative for: Rash Eye Exam: Positive for: EOMI, Normal appearance, PERRL ENT: Positive for: Normal ENT Inspection Neck: Positive for: Normal, Painless ROM, Supple Cardiovascular/Chest: Positive for: Regular Rate, Rhythm. Negative for: Murmur Respiratory: Positive for: Decreased Breath Sounds (unclear because patient was not taking deep breaths; otherwise lungs clear) Gastrointestinal/Abdominal: Positive for: Normal Exam, Soft. Negative for: Tenderness Back: Positive for: Normal Inspection. Negative for: L CVA Tenderness, R CVA Tenderness, Vertebral Tenderness Extremity: Positive for: Swelling (mild swelling of extremities (unable to determine if acute or chronic)) Neurologic/Psych: Positive for: Alert, Oriented (person and place) - Laboratory Results Result Diagrams: 06/11/18 16:58 06/11/18 16:58 - ECG O2 Sat by Pulse Oximetry: 86 (RA) Pulse Ox Interpretation: Abnormal Medical Decision Making Medical Decision Making: Plan: Workup for acute chest pain and shortness of breath. Patient with normal vitals at this time and is in no acute distress. Will order labs, EKG, CXR, and will call Dr. Oliver and reassess patient. [id number] CXR FINDINGS: LUNGS: Mild diffuse interstitial change is once again appreciated with areas of mild scarring in the left upper lobe and lower lung matthew. Mild increase in subsegmental atelectasis or volume loss is seen at the lung bases. Vasculature may also be mildly congested. PLEURA: No definite effusion. No pneumothorax. CARDIOVASCULAR: Heart is enlarged. There is evidence of prior median sternotomy. Mild vascular congestion is not excluded. OSSEOUS STRUCTURES: No significant abnormalities. VISUALIZED UPPER ABDOMEN: Normal. OTHER FINDINGS: None. IMPRESSION: Possible mild vascular congestion. Mild increase in bibasilar volume loss. Underlying interstitial change and scarring. 2005 Pt with stable vitals without medications. Slight infiltrates on CXR. Lungs clear. Case discussed with Dr. Oliver. Patient will be admitted to med/surg under his service for mild CHF. ----- Scribe Attestation: Documented by Jose Kent, acting as a scribe for Starla Loza MD. Provider Scribe Attestation: All medical record entries made by the Scribe were at my direction and personally dictated by me. I have reviewed the chart and agree that the record accurately reflects my personal performance of the history, physical exam, medical decision making, and the department course for this patient. I have also personally directed, reviewed, and agree with the discharge instructions and disposition. Disposition - Clinical Impression Clinical Impression: COPD (chronic obstructive pulmonary disease), Chronic diastolic (congestive) heart failure - Patient ED Disposition Is Patient to be Admitted: Yes - Disposition Disposition Time: 20:05 Condition: GUARDED - Pt Status Changed To: Hospital Disposition Of: Inpatient - Admit Certification Admit to Inpatient:: After my assessment, the patient will require hospitalization for at least two midnights. This is because of the severity of symptoms shown, intensity of services needed, and/or the medical risk in this patient being treated as an outpatient.
[2018-06-12] MEDS ORDERED: Acetaminophen-Codeine 300/30 mg Tab PO PRN (00:07)
[2018-06-12 06:18] LABS: HEMOGLOBIN 10.5 g/dL (12.0-16.0); MEAN CELL VOLUME 95.8 fl (81.0-99.0); MEAN CORPUSCULAR HEMOGLOBIN 32.1 pg (27.0-31.0); MEAN CORPUSCULAR HGB CONC 33.5 g/dL (33.0-37.0); RBC 3.27 Mil/uL (3.80-5.20); RED CELL DISTRIBUTION WIDTH 14.2 % (11.5-14.5); WHITE BLOOD COUNT 9.9 K/uL (4.8-10.8)
[2018-06-12 06:28] LABS: ALB/GLOB RATIO 0.9 (1.0-2.1); ALBUMIN 3.2 g/dL (3.5-5.0); CALCIUM 9.3 mg/dL (8.4-10.2)
[2018-06-12 06:40] LABS: T4 6.48 ug/dl (5.5-11.0)
--- NOTE | 2018-06-12 08:05 | CARD ---
APPROVED REPORT Date of service: 06/11/2018 <Conclusion> Normal sinus rhythm with sinus arrhythmia Normal ECG
[2018-06-12] MEDS ORDERED: VITAMIN D3 PO SCH (09:00)
[2018-06-12] MEDS ORDERED: CALCIUM CARBONATE PO SCH (09:00)
[2018-06-12] MEDS: Patient's Own Med (Ranolazine [Ranexa] 1,000 MG) PO SCH ×2 (09:15→18:07)
[2018-06-12] MEDS: Calcium-Vit D 500 mg-200 Units Tab UD PO SCH (09:16)
--- NOTE | 2018-06-12 13:42 | CP.PCM.CON ---
History of Present Illness - History of Present Illness History of Present Illness: I was asked to evaluate patient by dr Oliver. Patient is a 78 year old female with PMH HTN, hypercholesterolemia CAD, CHF who presents with chest pain. The patient states symptoms began in her shoulder. She had sme radiation to the chest. She does not ambulate and is mainly bed bound. Review of Systems - Review of Systems Systems not reviewed;Unavailable: Dementia Past Patient History - Infectious Disease Hx of Infectious Diseases: None - Tetanus Immunizations Tetanus Immunization: Unknown - Past Medical History & Family History Past Medical History?: Yes - Past Social History Smoking Status: Never Smoked - CARDIAC Hx Congestive Heart Failure: Yes Hx Hypercholesterolemia: Yes Hx Hypertension: Yes Hx Pacemaker: Yes Hx Peripheral Edema: Yes - PULMONARY Hx Asthma: Yes Hx Bronchitis: Yes Hx Chronic Obstructive Pulmonary Disease (COPD): Yes Hx Pneumonia: Yes - NEUROLOGICAL Hx Dementia: Yes Hx Seizures: Yes - HEENT Hx HEENT Problems: Yes Hx Blind: Yes (left eye) Other/Comment: Hard of hear R ear., left eye blind - RENAL Hx Chronic Kidney Disease: Yes (mild renal insufficiecy.) - ENDOCRINE/METABOLIC Hx Hypothyroidism: Yes - HEMATOLOGICAL/ONCOLOGICAL Hx Anemia: Yes Hx Human Immunodeficiency Virus (HIV): No - INTEGUMENTARY Hx Dermatological Problems: No - MUSCULOSKELETAL/RHEUMATOLOGICAL Hx Arthritis: Yes Hx Rheumatoid Arthritis: No - GASTROINTESTINAL Hx Gastritis: Yes - GENITOURINARY/GYNECOLOGICAL Hx Genitourinary Disorders: Yes Hx Incontinence: Yes Hx Urinary Tract Infection: Yes - PSYCHIATRIC Hx Anxiety: Yes Hx Depression: Yes - SURGICAL HISTORY Hx Cholecystectomy: Yes Hx Coronary Artery Bypass Graft: Yes (x4) Hx Coronary Stent: Yes - ANESTHESIA Hx Anesthesia: Yes Hx Anesthesia Reactions: No Hx Malignant Hyperthermia: No Meds Allergies/Adverse Reactions: Allergies Allergy/AdvReac Type Severity Reaction Status Date / Time kiwi Allergy Mild RASH Verified 06/11/18 16:06 morphine Allergy Mild RASH Verified 06/11/18 16:06 Penicillins Allergy Mild RASH Verified 06/11/18 16:06 pineapple Allergy Mild RASH Verified 06/11/18 16:06 watermelon Allergy Mild RASH Verified 06/11/18 16:06 - Medications Medications: Current Medications Acetaminophen/Codeine Phosphate (Tylenol/Codeine 300 Mg/30 Mg) 1 tab PO Q6 PRN PRN Reason: Pain, severe (8-10) Alprazolam (Xanax) 0.25 mg PO BID PRN PRN Reason: Anxiety Stop: 06/18/18 23:33 Last Admin: 06/11/18 23:40 Dose: 0.25 mg Aspirin (Ecotrin) 81 mg PO DAILY [facility] Last Admin: 06/12/18 09:16 Dose: 81 mg Atorvastatin Calcium (Lipitor) 40 mg PO [facility] Calcium/Vitamin D (Oyster Shell Calcium/Vitamin D 500 Mg-200 Iu) 1 tab PO DAILY [facility] Last Admin: 06/12/18 09:16 Dose: 1 tab Carvedilol (Coreg) 3.125 mg PO DAILY [facility] Last Admin: 06/12/18 09:20 Dose: 3.125 mg Ferrous Sulfate (Feosol) 325 mg PO DAILY [facility] Last Admin: 06/12/18 09:16 Dose: 325 mg Furosemide (Lasix) 20 mg PO QOTHERDAY [facility] Last Admin: 06/12/18 09:18 Dose: 20 mg Gabapentin (Neurontin) 100 mg PO BID PRN PRN Reason: Nerve pain/neuropathy Home Med (Ranolazine [Ranexa]) 1,000 mg PO BID [facility] Last Admin: 06/12/18 09:15 Dose: 1,000 mg Insulin Lispro Protam/Lispro Human (Humalog Mix 75/25) 5 units SC BID PRN PRN Reason: see comments Loratadine (Claritin) 10 mg PO DAILY [facility] Last Admin: 06/12/18 09:16 Dose: 10 mg Phenazopyridine HCl (Pyridium) 200 mg PO BID PRN PRN Reason: Dysuria Last Admin: 06/12/18 09:16 Dose: 200 mg Physical Exam - Constitutional Appears: Non-toxic - Head Exam Head Exam: NORMAL INSPECTION - Eye Exam Eye Exam: Normal appearance - ENT Exam ENT Exam: Mucous Membranes Moist - Neck Exam Neck exam: Positive for: Full Rom - Respiratory Exam Respiratory Exam: NORMAL BREATHING PATTERN - Cardiovascular Exam Cardiovascular Exam: REGULAR RHYTHM - GI/Abdominal Exam GI & Abdominal Exam: Normal Bowel Sounds - Rectal Exam Rectal Exam: Deferred - Extremities Exam Extremities exam: Negative for: pedal edema - Back Exam Back exam: NORMAL INSPECTION - Neurological Exam Neurological exam: Alert, Oriented x3 - Psychiatric Exam Psychiatric exam: Normal Affect - Skin Skin Exam: Normal Color Results - Vital Signs Recent Vital Signs: Last Vital Signs Temp 97.6 F 06/12/18 07:52 Pulse 77 06/12/18 09:20 Resp 19 06/12/18 07:52 BP 165/85 H 06/12/18 09:20 Pulse Ox 100 06/12/18 07:52 - Labs Result Diagrams: 06/12/18 04:24 06/12/18 04:24 Labs: Laboratory Results - last 24 hr 06/11/18 06/11/18 06/11/18 16:15 16:55 16:58 WBC RBC Hgb Hct MCV MCH MCHC RDW Plt Count MPV Neut % (Auto) Lymph % (Auto) [place] % (Auto) Eos % (Auto) Baso % (Auto) Neut # (Auto) Lymph # (Auto) [place] # (Auto) Eos # (Auto) Baso # (Auto) PT INR APTT pO2 59 H VBG pH 7.40 VBG pCO2 59 VBG HCO3 32.7 VBG Total CO2 38.3 H VBG O2 Sat (Calc) 94.0 H VBG Base Excess 10.1 H VBG Potassium 4.7 Sodium 136.0 139 Chloride 106.0 101 Glucose 314 H Lactate 1.3 FiO2 21.0 Potassium 4.9 Carbon Dioxide 31 H Anion Gap 12 BUN 39 H Creatinine 2.2 H Est GFR ( Amer) 26 Est GFR (Non-Af Amer) 21 POC Glucose (mg/dL) 326 H Random Glucose 309 H Calcium 9.0 Total Bilirubin 0.3 AST 22 ALT 25 Alkaline Phosphatase 112 Troponin I < 0.0120 NT-Pro-B Natriuret Pep 1040 H Total Protein 6.7 Albumin 3.2 L Globulin 3.5 Albumin/Globulin Ratio 0.9 L Triglycerides Cholesterol LDL Cholesterol Direct HDL Cholesterol Lipase 13 L Thyroxine (T4) TSH 3rd Generation Venous Blood Potassium 4.7 Blood Type Antibody Screen BBK History Checked 06/11/18 06/11/18 06/11/18 16:58 16:58 16:58 WBC 10.9 H RBC 3.17 L Hgb 10.1 L Hct 30.3 L MCV 95.9 MCH 31.8 H MCHC 33.2 RDW 14.5 Plt Count 196 MPV 8.9 Neut % (Auto) 77.6 H Lymph % (Auto) 13.8 L [place] % (Auto) 6.7 Eos % (Auto) 1.4 Baso % (Auto) 0.5 Neut # (Auto) 8.5 H Lymph # (Auto) 1.5 [place] # (Auto) 0.7 Eos # (Auto) 0.2 Baso # (Auto) 0.1 PT 11.5 INR 1.0 APTT 32.4 pO2 VBG pH VBG pCO2 VBG HCO3 VBG Total CO2 VBG O2 Sat (Calc) VBG Base Excess VBG Potassium Sodium Chloride Glucose Lactate FiO2 Potassium Carbon Dioxide Anion Gap BUN Creatinine Est GFR ( Amer) Est GFR (Non-Af Amer) POC Glucose (mg/dL) Random Glucose Calcium Total Bilirubin AST ALT Alkaline Phosphatase Troponin I NT-Pro-B Natriuret Pep Total Protein Albumin Globulin Albumin/Globulin Ratio Triglycerides Cholesterol LDL Cholesterol Direct HDL Cholesterol Lipase Thyroxine (T4) TSH 3rd Generation Venous Blood Potassium Blood Type Cancelled Antibody Screen Cancelled BBK History Checked Cancelled 06/12/18 06/12/18 06/12/18 00:30 04:24 04:24 WBC 9.9 RBC 3.27 L Hgb 10.5 L Hct 31.3 L MCV 95.8 MCH 32.1 H MCHC 33.5 RDW 14.2 Plt Count 196 MPV Neut % (Auto) Lymph % (Auto) [place] % (Auto) Eos % (Auto) Baso % (Auto) Neut # (Auto) Lymph # (Auto) [place] # (Auto) Eos # (Auto) Baso # (Auto) PT INR APTT pO2 VBG pH VBG pCO2 VBG HCO3 VBG Total CO2 VBG O2 Sat (Calc) VBG Base Excess VBG Potassium Sodium 140 Chloride 101 Glucose Lactate FiO2 Potassium 4.6 Carbon Dioxide 37 H Anion Gap 7 L BUN 36 H Creatinine 2.2 H Est GFR ( Amer) 26 Est GFR (Non-Af Amer) 21 POC Glucose (mg/dL) Random Glucose 165 H Calcium 9.3 Total Bilirubin 0.3 AST 27 ALT 27 Alkaline Phosphatase 77 Troponin I < 0.0120 NT-Pro-B Natriuret Pep 994 H Total Protein 6.9 Albumin 3.2 L Globulin 3.7 Albumin/Globulin Ratio 0.9 L Triglycerides 136 Cholesterol 169 LDL Cholesterol Direct 70 HDL Cholesterol 41 Lipase Thyroxine (T4) 6.48 TSH 3rd Generation 11.80 H Venous Blood Potassium Blood Type Antibody Screen BBK History Checked 06/12/18 06/12/18 06/12/18 05:40 09:00 09:04 WBC RBC Hgb Hct MCV MCH MCHC RDW Plt Count MPV Neut % (Auto) Lymph % (Auto) [place] % (Auto) Eos % (Auto) Baso % (Auto) Neut # (Auto) Lymph # (Auto) [place] # (Auto) Eos # (Auto) Baso # (Auto) PT INR APTT pO2 VBG pH VBG pCO2 VBG HCO3 VBG Total CO2 VBG O2 Sat (Calc) VBG Base Excess VBG Potassium Sodium Chloride Glucose Lactate FiO2 Potassium Carbon Dioxide Anion Gap BUN Creatinine Est GFR ( Amer) Est GFR (Non-Af Amer) POC Glucose (mg/dL) 172 H 213 H Random Glucose Calcium Total Bilirubin AST ALT Alkaline Phosphatase Troponin I < 0.0120 NT-Pro-B Natriuret Pep Total Protein Albumin Globulin Albumin/Globulin Ratio Triglycerides Cholesterol LDL Cholesterol Direct HDL Cholesterol Lipase Thyroxine (T4) TSH 3rd Generation Venous Blood Potassium Blood Type Antibody Screen BBK History Checked 06/12/18 11:00 WBC RBC Hgb Hct MCV MCH MCHC RDW Plt Count MPV Neut % (Auto) Lymph % (Auto) [place] % (Auto) Eos % (Auto) Baso % (Auto) Neut # (Auto) Lymph # (Auto) [place] # (Auto) Eos # (Auto) Baso # (Auto) PT INR APTT pO2 VBG pH VBG pCO2 VBG HCO3 VBG Total CO2 VBG O2 Sat (Calc) VBG Base Excess VBG Potassium Sodium Chloride Glucose Lactate FiO2 Potassium Carbon Dioxide Anion Gap BUN Creatinine Est GFR ( Amer) Est GFR (Non-Af Amer) POC Glucose (mg/dL) 344 H Random Glucose Calcium Total Bilirubin AST ALT Alkaline Phosphatase Troponin I NT-Pro-B Natriuret Pep Total Protein Albumin Globulin Albumin/Globulin Ratio Triglycerides Cholesterol LDL Cholesterol Direct HDL Cholesterol Lipase Thyroxine (T4) TSH 3rd Generation Venous Blood Potassium Blood Type Antibody Screen BBK History Checked - EKG Data EKG Interpreted by: Myself EKG shows normal: Sinus rhythm Assessment & Plan (1) Chest pain Assessment and Plan: unclear etiology. patient appears comfortable. cardiac enzymes are negative. recommend conservative therapy and avoidance of invasive procedures. Status: Acute Priority: High (2) CAD (coronary artery disease) Assessment and Plan: statin thaerapy. ASA. Status: Chronic Priority: Medium (3) CHF (congestive heart failure) Assessment and Plan: appears euvolemic. chronic diastolic function. Status: Chronic Priority: High (4) HTN (hypertension) Assessment and Plan: increase Coreg Status: Chronic Priority: Medium
--- NOTE | 2018-06-12 15:56 | CP.PCM.HP ---
History of Present Illness - History of Present Illness History of Present Illness: CC: Chest pain. 78 y/o F, PMHx COPD, CHF, CABG, PPM, frequent admissions for UTI, Dementia, [facility] for moderate Chest pain, sub sternal non radiated, associated to difficulty breathing from day [employer], increased on DOA with no relief. Hx as per family on arrival to ER. Worsening symptoms: Abnormal U/A result, + for infection. Aggravated factor: Poor historian. Movements. No Fever, chills, headache, n/v/d, abdominal pain, syncope, LOC, numbness, sick contact, recent travel out of [facility] [[email or web address] CXR: Possible mild vascular congestion, mild increase in bibasilar volumes loss. EKG: Normal sinus rhythm with sinus arrhythmia. Present on Admission - Present on Admission Any Indicators Present on Admission: No Review of Systems - Constitutional Constitutional: Weakness - EENT Eyes: Loss of Vision (L eye) Ears: Decreased Hearing (R ear) Nose/Mouth/Throat: Nasal Congestion - Cardiovascular Cardiovascular: Chest Pain - Respiratory Respiratory: Dyspnea - Gastrointestinal Gastrointestinal: Other (negative) - Genitourinary Genitourinary: Urinary Incontinence, Freq UTI - Musculoskeletal Musculoskeletal: Arthralgias, Back Pain - Neurological Neurological: Memory Loss (mild) - Psychiatric Psychiatric: Anxiety - Endocrine Endocrine: Other (negative) - Hematologic/Lymphatic Hematologic: Other (negative) Past Patient History - Infectious Disease Hx of Infectious Diseases: None - Tetanus Immunizations Tetanus Immunization: Unknown - Past Medical History & Family History Past Medical History?: Yes Pertinent Family History: Unknown - Past Social History Smoking Status: Never Smoked Alcohol: None Drugs: Denies Home Situation {Lives}: With Family - CARDIAC Hx Cardiac Disorders: Yes Hx Congestive Heart Failure: Yes Hx Hypercholesterolemia: Yes Hx Hypertension: Yes Hx Pacemaker: Yes Hx Peripheral Edema: Yes - PULMONARY Hx Respiratory Disorders: Yes Hx Asthma: Yes Hx Bronchitis: Yes Hx Chronic Obstructive Pulmonary Disease (COPD): Yes Hx Pneumonia: Yes - NEUROLOGICAL Hx Neurological Disorder: Yes Hx Dementia: Yes Hx Seizures: Yes - HEENT Hx HEENT Problems: Yes Hx Blind: Yes (left eye) Other/Comment: Hard of hear R ear., left eye blind - RENAL Hx Chronic Kidney Disease: Yes (mild renal insufficiecy.) - ENDOCRINE/METABOLIC Hx Endocrine Disorders: Yes Hx Hypothyroidism: Yes - HEMATOLOGICAL/ONCOLOGICAL Hx Blood Disorders: Yes Hx Anemia: Yes Hx Human Immunodeficiency Virus (HIV): No - INTEGUMENTARY Hx Dermatological Problems: No - MUSCULOSKELETAL/RHEUMATOLOGICAL Hx Musculoskeletal Disorders: Yes Hx Arthritis: Yes Hx Back Pain: Yes Hx Rheumatoid Arthritis: No - GASTROINTESTINAL Hx Gastrointestinal Disorders: Yes Hx Gastritis: Yes - GENITOURINARY/GYNECOLOGICAL Hx Genitourinary Disorders: Yes Hx Incontinence: Yes Hx Urinary Tract Infection: Yes - PSYCHIATRIC Hx Psychophysiologic Disorder: Yes Hx Anxiety: Yes Hx Depression: Yes - SURGICAL HISTORY Hx Surgeries: Yes Hx Amputation: Yes (TMA left) Hx Cholecystectomy: Yes Hx Coronary Artery Bypass Graft: Yes (x4) Hx Coronary Stent: Yes - ANESTHESIA Hx Anesthesia: Yes Hx Anesthesia Reactions: No Hx Malignant Hyperthermia: No Meds Allergies/Adverse Reactions: Allergies Allergy/AdvReac Type Severity Reaction Status Date / Time kiwi Allergy Mild RASH Verified 06/11/18 16:06 morphine Allergy Mild RASH Verified 06/11/18 16:06 Penicillins Allergy Mild RASH Verified 06/11/18 16:06 pineapple Allergy Mild RASH Verified 06/11/18 16:06 watermelon Allergy Mild RASH Verified 06/11/18 16:06 Physical Exam - Constitutional Appears: Chronically Ill - Head Exam Head Exam: NORMAL INSPECTION - Eye Exam Eye Exam: PERRL (R eye, L eye blind) - ENT Exam Additional comments: Hard of hearing R - Neck Exam Neck exam: Positive for: Normal Inspection - Respiratory Exam Respiratory Exam: Decreased Breath Sounds - Cardiovascular Exam Cardiovascular Exam: REGULAR RHYTHM - GI/Abdominal Exam GI & Abdominal Exam: Normal Bowel Sounds, Soft - Extremities Exam Extremities exam: Positive for: tenderness (R-L knee) Additional comments: L TMA - Back Exam Back exam: tenderness (mild) - Neurological Exam Additional comments: Awake, Ox2, forgetful, follows commands, generalized weakness. - Psychiatric Exam Psychiatric exam: Anxious - Skin Skin Exam: Warm Results - Vital Signs Recent Vital Signs: Last Vital Signs Temp 97.6 F 06/12/18 07:52 Pulse 77 06/12/18 09:20 Resp 19 06/12/18 07:52 BP 165/85 H 06/12/18 09:20 Pulse Ox 100 06/12/18 07:52 reviewed Cheryl - Labs Result Diagrams: 06/12/18 04:24 06/12/18 04:24 Labs: Laboratory Results - last 24 hr 06/11/18 06/11/18 06/11/18 16:15 16:55 16:58 WBC RBC Hgb Hct MCV MCH MCHC RDW Plt Count MPV Neut % (Auto) Lymph % (Auto) [place] % (Auto) Eos % (Auto) Baso % (Auto) Neut # (Auto) Lymph # (Auto) [place] # (Auto) Eos # (Auto) Baso # (Auto) PT INR APTT pO2 59 H VBG pH 7.40 VBG pCO2 59 VBG HCO3 32.7 VBG Total CO2 38.3 H VBG O2 Sat (Calc) 94.0 H VBG Base Excess 10.1 H VBG Potassium 4.7 Sodium 136.0 139 Chloride 106.0 101 Glucose 314 H Lactate 1.3 FiO2 21.0 Potassium 4.9 Carbon Dioxide 31 H Anion Gap 12 BUN 39 H Creatinine 2.2 H Est GFR ( Amer) 26 Est GFR (Non-Af Amer) 21 POC Glucose (mg/dL) 326 H Random Glucose 309 H Calcium 9.0 Total Bilirubin 0.3 AST 22 ALT 25 Alkaline Phosphatase 112 Troponin I < 0.0120 NT-Pro-B Natriuret Pep 1040 H Total Protein 6.7 Albumin 3.2 L Globulin 3.5 Albumin/Globulin Ratio 0.9 L Triglycerides Cholesterol LDL Cholesterol Direct HDL Cholesterol Lipase 13 L Thyroxine (T4) TSH 3rd Generation Venous Blood Potassium 4.7 Blood Type Antibody Screen BBK History Checked 06/11/18 06/11/18 06/11/18 16:58 16:58 16:58 WBC 10.9 H RBC 3.17 L Hgb 10.1 L Hct 30.3 L MCV 95.9 MCH 31.8 H MCHC 33.2 RDW 14.5 Plt Count 196 MPV 8.9 Neut % (Auto) 77.6 H Lymph % (Auto) 13.8 L [place] % (Auto) 6.7 Eos % (Auto) 1.4 Baso % (Auto) 0.5 Neut # (Auto) 8.5 H Lymph # (Auto) 1.5 [place] # (Auto) 0.7 Eos # (Auto) 0.2 Baso # (Auto) 0.1 PT 11.5 INR 1.0 APTT 32.4 pO2 VBG pH VBG pCO2 VBG HCO3 VBG Total CO2 VBG O2 Sat (Calc) VBG Base Excess VBG Potassium Sodium Chloride Glucose Lactate FiO2 Potassium Carbon Dioxide Anion Gap BUN Creatinine Est GFR ( Amer) Est GFR (Non-Af Amer) POC Glucose (mg/dL) Random Glucose Calcium Total Bilirubin AST ALT Alkaline Phosphatase Troponin I NT-Pro-B Natriuret Pep Total Protein Albumin Globulin Albumin/Globulin Ratio Triglycerides Cholesterol LDL Cholesterol Direct HDL Cholesterol Lipase Thyroxine (T4) TSH 3rd Generation Venous Blood Potassium Blood Type Cancelled Antibody Screen Cancelled BBK History Checked Cancelled 06/12/18 06/12/18 06/12/18 00:30 04:24 04:24 WBC 9.9 RBC 3.27 L Hgb 10.5 L Hct 31.3 L MCV 95.8 MCH 32.1 H MCHC 33.5 RDW 14.2 Plt Count 196 MPV Neut % (Auto) Lymph % (Auto) [place] % (Auto) Eos % (Auto) Baso % (Auto) Neut # (Auto) Lymph # (Auto) [place] # (Auto) Eos # (Auto) Baso # (Auto) PT INR APTT pO2 VBG pH VBG pCO2 VBG HCO3 VBG Total CO2 VBG O2 Sat (Calc) VBG Base Excess VBG Potassium Sodium 140 Chloride 101 Glucose Lactate FiO2 Potassium 4.6 Carbon Dioxide 37 H Anion Gap 7 L BUN 36 H Creatinine 2.2 H Est GFR ( Amer) 26 Est GFR (Non-Af Amer) 21 POC Glucose (mg/dL) Random Glucose 165 H Calcium 9.3 Total Bilirubin 0.3 AST 27 ALT 27 Alkaline Phosphatase 77 Troponin I < 0.0120 NT-Pro-B Natriuret Pep 994 H Total Protein 6.9 Albumin 3.2 L Globulin 3.7 Albumin/Globulin Ratio 0.9 L Triglycerides 136 Cholesterol 169 LDL Cholesterol Direct 70 HDL Cholesterol 41 Lipase Thyroxine (T4) 6.48 TSH 3rd Generation 11.80 H Venous Blood Potassium Blood Type Antibody Screen BBK History Checked 06/12/18 06/12/18 06/12/18 05:40 09:00 09:04 WBC RBC Hgb Hct MCV MCH MCHC RDW Plt Count MPV Neut % (Auto) Lymph % (Auto) [place] % (Auto) Eos % (Auto) Baso % (Auto) Neut # (Auto) Lymph # (Auto) [place] # (Auto) Eos # (Auto) Baso # (Auto) PT INR APTT pO2 VBG pH VBG pCO2 VBG HCO3 VBG Total CO2 VBG O2 Sat (Calc) VBG Base Excess VBG Potassium Sodium Chloride Glucose Lactate FiO2 Potassium Carbon Dioxide Anion Gap BUN Creatinine Est GFR ( Amer) Est GFR (Non-Af Amer) POC Glucose (mg/dL) 172 H 213 H Random Glucose Calcium Total Bilirubin AST ALT Alkaline Phosphatase Troponin I < 0.0120 NT-Pro-B Natriuret Pep Total Protein Albumin Globulin Albumin/Globulin Ratio Triglycerides Cholesterol LDL Cholesterol Direct HDL Cholesterol Lipase Thyroxine (T4) TSH 3rd Generation Venous Blood Potassium Blood Type Antibody Screen BBK History Checked 06/12/18 06/12/18 11:00 15:34 WBC RBC Hgb Hct MCV MCH MCHC RDW Plt Count MPV Neut % (Auto) Lymph % (Auto) [place] % (Auto) Eos % (Auto) Baso % (Auto) Neut # (Auto) Lymph # (Auto) [place] # (Auto) Eos # (Auto) Baso # (Auto) PT INR APTT pO2 VBG pH VBG pCO2 VBG HCO3 VBG Total CO2 VBG O2 Sat (Calc) VBG Base Excess VBG Potassium Sodium Chloride Glucose Lactate FiO2 Potassium Carbon Dioxide Anion Gap BUN Creatinine Est GFR ( Amer) Est GFR (Non-Af Amer) POC Glucose (mg/dL) 344 H 465 H* Random Glucose Calcium Total Bilirubin AST ALT Alkaline Phosphatase Troponin I NT-Pro-B Natriuret Pep Total Protein Albumin Globulin Albumin/Globulin Ratio Triglycerides Cholesterol LDL Cholesterol Direct HDL Cholesterol Lipase Thyroxine (T4) TSH 3rd Generation Venous Blood Potassium Blood Type Antibody Screen BBK History Checked reviewed J.P. - EKG Data EKG comments: reviewed J.P. - Imaging and Cardiology Chest x-ray Status: Report reviewed by me (J.P.) Assessment & Plan (1) Chest pain, atypical Status: Acute Priority: High (2) UTI (urinary tract infection) Status: Acute Priority: High (3) Type 2 diabetes mellitus with hyperglycemia Status: Chronic Priority: High (4) CHF (congestive heart failure) Status: Chronic Priority: Medium (5) HTN (hypertension) Status: Chronic Priority: Medium (6) COPD (chronic obstructive pulmonary disease) Status: Chronic Priority: Medium (7) Generalized weakness Status: Chronic Priority: High (8) High cholesterol Status: Chronic Priority: Medium (9) Hx of CABG Status: Chronic Priority: Medium - Assessment and Plan (Free Text) Plan: F/U U C-S, Continue NC 2 L/M, Add Gentamicin, continue Coreg, Ecotrin, Pyridium , lasix, Lipitor, Cardiology consult appreciated, OT eval. - Date & Time Date: 06/12/18 Time: 12:00
[2018-06-12] MEDS: Insulin Lispro Mix 75/25 100 units/ml (HumaLog) 10ml SC PRN (18:04)
[2018-06-12 19:55] LABS: SQUAMOUS EPITHIAL 1 /hpf (0-5); URINE BACTERIA MOD (<OCC); URINE BILIRUBIN NEGATIVE (NEGATIVE); URINE CLARITY CLOUDY (Clear); URINE COLOR AMBER (YELLOW); URINE GLUCOSE (UA) 150 mg/dL (Normal); URINE LEUKOCYTE ESTERASE LARGE Leu/uL (Negative); URINE PROTEIN 30 mg/dL (NEGATIVE); URINE UROBILINOGEN 0.2-1.0 mg/dL (0.2-1.0)
[2018-06-12 19:56] LABS: URINE BLOOD SMALL (NEGATIVE)
--- NOTE | 2018-06-13 09:20 | PCM.RRT ---
<Patricia Jose - Last Filed: 06/13/18 10:19> BOOK CANVASSER Nurse Assessment - Situation BOOK CANVASSER Responder Arrival Time: 09:00 Location: 2 BOOK CANVASSER Reason for Call: Change in Mental Status BOOK CANVASSER Called By: RN - IV IV Inserted during BOOK CANVASSER?: No - Respiratory Oxygen Delivery Method: Nasal Cannula Received Nebulizer Treatments: No Was the Patient Ventilated with Bag/Mask 100% O2?: No Secretions Suctioned?: No Was the Patient Intubated?: No Was the Patient Placed on a Ventilator?: No - Ventilator Settings Peak Flow: 150 - Medication Medications Administered During BOOK CANVASSER: None - Diagnostic Test Ordered EKG: Yes Chest X-Ray: Yes CT Scan: Yes - Stat Labs Ordered BOOK CANVASSER Stat Labs Ordered: CBC, PT/PTT, TROPONIN BOOK CANVASSER Other Labs Ordered: Lipid, CMP, HgA1c, Stroke team consult (Dr. Hill), EKG CPR started during BOOK CANVASSER?: No - Vital Signs Vital Signs: 9:00 BP: 93/59 ; HR: 60 ; T:97.6; O2 sat: 98% on 2 L NC - [place] Coma Scale Coma Scale Eye Opening: No response Coma Scale Motor: Movement to pain stimulus Coma Scale Verbal: No response Coma Scale Total: 7 - Time BOOK CANVASSER Ended Time BOOK CANVASSER Ended: 09:15 - Recommendations BOOK CANVASSER Level of Care Recommendations: Transfer to Telemetry (bed 403-1) Notifications: Attending Physician I.Reason for BOOK CANVASSER - A) Acute Change in Patient: (Select all that apply): Staff member or family is worried about patient, Acute change in mental status Subjective: 78 y/o F, PMHx COPD, CHF, CABG, PPM, frequent admissions for UTI, Dementia, and previous history of stroke admitted for CHF found to be lethargic and AMS. Unable to interview patient as she is lethargic. Daughter and son are in the room and they state that they saw her weak this morning around 8:50. They called the nurse and the Nurse called an BOOK CANVASSER due to lethargy and AMS. 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 Glucose was 330. at 9:01 a.m. Stroke consult appreciated- Dr. Hill BOOK CANVASSER End Time 9:20 Condition at the end of BOOK CANVASSER: Patient was immediately sent to CT head without contrast. BOOK CANVASSER Repeat VS BP 120/57 T: 97.6 HR: 62 BOOK CANVASSER team leader/research psychologist: Dr. Claudio BOOK CANVASSER Residents: Dr. Elijah Victoria PGY3, Dr. Nicanor Vidal PGY2, Dr. Erasmo Saez PGY 1, Dr. Patricia Jose, PGY1. - Neurological Status (Select all that apply): Lethargic, Weakness Other (Please specify): Right arm weakness - Respiratory Oxygen Delivery Method: Nasal Cannula @L/min (2 L NC) Oxygen Flow Rate: 2 - Constitutional Appears: No Acute Distress Additional Comments: Lethargic - Head Head Exam: NORMAL INSPECTION - Respiratory Exam Respiratory Exam: NORMAL BREATHING PATTERN. absent: Rales, Rhonchi, Wheezes - Cardiovascular Exam Cardiovascular Exam: +S1, +S2 Additional comments: Decreased heart sounds. - Neurological Exam Neurological Exam: absent: Alert, Awake Additional exam: Lethargic, unresponsive, unable to protrude tongue or respond to verbal commands. Plan - Assessment of Findings&Treatment Plan 1. Unresponsiveness, lethargy 78 y/o F, PMHx COPD, CHF, CABG, PPM, frequent admissions for UTI, Dementia, admitted because of CHF found to be lethargic and AMS by daughter, son and RN. Given previous UTI admissions positive for Klebsiella, Urine culture was ordered. Patient was transferred to telemetry- 403-1. - Labs sent - F/U CT scan of head- w/o contrast - Urine culture sent via straight cath <Nydia Claudio - Last Filed: 06/13/18 17:54> BOOK CANVASSER Nurse Assessment - Vital Signs Vital Signs: Rapid Response Vital Sign Blood Pressure 120/57 Pulse Rate 62 Respiratory Rate 18 Temperature 97.6 F Oxygen Saturation 95 - Vital Signs at end of BOOK CANVASSER Vital Signs at end of BOOK CANVASSER: Rapid Response End Vital Sign Blood Pressure 130/75 Pulse Rate 62 Respiratory Rate 18 Temperature 97.6 F O2 Sat by Pulse Oximetry 95 Attending/Attestation - Attestation I have personally seen and examined this patient.: Yes I have fully participated in the care of the patient.: Yes I have reviewed all pertinent clinical information, including history, physical exam and plan: Yes Notes (Text): Code Stroke called bec of unresponsiveness AMS prob sec to Toxic Metabolic Enceph - CT of head : no acute change, previosu Lacunar infarct - UA shows pyuria, leukoest - likely UTI - Glucose 300s - pt's sxs resolved and she is back to her baseline after a few minutes. - Pt transferred to Telemetry for monitoring -Pt's PMD Dr Oliver informed of event - Dr Hill Neuro consulted- case discussed - rec EEG
--- NOTE | 2018-06-13 09:28 | CT ---
Date of service: 06/13/2018 PROCEDURE: CT HEAD WITHOUT CONTRAST. HISTORY: altered mental status COMPARISON: Noncontrast head CT 03/15/2018. TECHNIQUE: Axial computed tomography images were obtained through the head/brain without intravenous contrast. Radiation dose: Total exam DLP = 1721.11 mGy-cm. This CT exam was performed using one or more of the following dose reduction techniques: Automated exposure control, adjustment of the mA and/or kV according to patient size, and/or use of iterative reconstruction technique. FINDINGS: HEMORRHAGE: No intracranial hemorrhage. BRAIN: Stable limited diffuse cerebral atrophy chronic microangiopathy is reiterated with a chronic lacune at the left external capsule anteriorly. No definite acute cortical edema appreciated throughout. Posterior fossa contents appear stable as well. VENTRICLES: Unremarkable. No hydrocephalus. CALVARIUM: Unremarkable. PARANASAL SINUSES: Unremarkable as visualized. No significant inflammatory changes. MASTOID AIR CELLS: Unremarkable as visualized. No inflammatory changes. OTHER FINDINGS: None. IMPRESSION: Stable limited age related neuro degenerative change identified as discussed above including left external capsule chronic lacune. Follow-up CT or MRI are available as clinically warranted. No definite acute intracranial findings. Findings discussed with Dr. Se Mejia with written down and read back verification 06/13/2018 9:24 a.m..
[2018-06-13 10:01] LABS: ABG ALLEN TEST YES; ARTERIAL BLOOD GAS HCO3 33.9 mmol/L (21-28); ARTERIAL BLOOD GAS HEMOGLOBIN 10.6 g/dL (11.7-17.4); ARTERIAL BLOOD GAS O2 CAPACITY 14.9 mL/dL (16-24); ARTERIAL BLOOD GAS O2 CONTENT 14.5 ML/dL (15-23); ARTERIAL BLOOD GAS O2 SAT 97.6 % (95-98); ARTERIAL BLOOD GAS PCO2 55 mm/Hg (35-45); ARTERIAL BLOOD GAS PH 7.44 (7.35-7.45); ARTERIAL BLOOD GAS PO2 100 mm/Hg (80-100); ARTERIAL BLOOD GAS TCO2 39.1 mmol/L (22-28)
[2018-06-13] MEDS ORDERED: Ciprofloxacin 200mg/100ml D5W 100 ML IVPB ONE (10:30)
[2018-06-13] MEDS: Calcium-Vit D 500 mg-200 Units Tab UD PO SCH ×2 (10:30→13:27)
[2018-06-13 10:33] LABS: HEMOGLOBIN 9.9 g/dL (12.0-16.0); MEAN CELL VOLUME 94.7 fl (81.0-99.0); MEAN CORPUSCULAR HEMOGLOBIN 32.2 pg (27.0-31.0); RBC 3.09 Mil/uL (3.80-5.20); RED CELL DISTRIBUTION WIDTH 14.1 % (11.5-14.5); WHITE BLOOD COUNT 7.7 K/uL (4.8-10.8)
[2018-06-13] MEDS: Patient's Own Med (Ranolazine [Ranexa] 1,000 MG) PO SCH ×4 (10:40→17:48)
[2018-06-13 10:41] LABS: INR 1.1; PROTHROMBIN TIME 11.8 Seconds (9.8-13.1)
[2018-06-13 10:43] LABS: PARTIAL THROMBOPLASTIN TIME 30.2 Seconds (25.6-37.1)
[2018-06-13 10:57] LABS: LDL CHOLESTEROL 65 mg/dL (0-129)
[2018-06-13 11:00] LABS: ALB/GLOB RATIO 0.8 (1.0-2.1); ALBUMIN 3.2 g/dL (3.5-5.0); ALT/SGPT 35 U/L (9-52); AST/SGOT 23 U/L (14-36); BLOOD UREA NITROGEN 41 mg/dl (7-17); CALCIUM 9.4 mg/dL (8.4-10.2); GFR NON-AFRICAN AMERICAN 19; HDL CHOLESTEROL 38 MG/DL (30-70)
--- NOTE | 2018-06-13 11:00 | RAD ---
Date of service: 06/13/2018 HISTORY: Code Stroke COMPARISON: Portable chest 06/11/2018. FINDINGS: LUNGS: Interval linear atelectasis reduced at the left base with limited patchy density remaining at right lung base. PLEURA: No significant pleural effusion identified, no pneumothorax apparent. CARDIOVASCULAR: Normal. OSSEOUS STRUCTURES: No significant abnormalities. VISUALIZED UPPER ABDOMEN: Normal. OTHER FINDINGS: None. IMPRESSION: Improving aeration left base with diminishing linear atelectasis although limited patchy infiltrate is again seen at the right lung base. Continued clinical and radiographic monitor advised.
[2018-06-13] MEDS ORDERED: Albuterol-Ipratrop 3 mg / 0.5 (3 ml) UD ONE (11:03)
--- NOTE | 2018-06-13 12:04 | CARD ---
APPROVED REPORT Date of service: 06/13/2018 <Conclusion> Sinus rhythm with fusion complexes Otherwise normal ECG
[2018-06-13] MEDS: Insulin Lispro Mix 75/25 100 units/ml (HumaLog) 10ml SC PRN (13:24)
--- NOTE | 2018-06-13 13:43 | CP.PCM.CON ---
History of Present Illness - History of Present Illness History of Present Illness: Neurology Consultation Note: Mrs. Bg Crouch is an 78-year-old woman with a past medical history of COPD , CHF, CABG, PPM, frequent admissions for UTI, Dementia, who was initially brought in for chest pain and this morning she was found to be confused/ encephalopathic. Non-contrast CT scan of the head showed a chronic left external capsule lacunar stroke, but no acute findings. Labs were consistent with UTI. Shortly after, the patient was back to baseline. Review of Systems - Review of Systems All systems: reviewed and no additional remarkable complaints except Past Patient History - Infectious Disease Hx of Infectious Diseases: None - Tetanus Immunizations Tetanus Immunization: Unknown - Past Medical History & Family History Past Medical History?: Yes - Past Social History Smoking Status: Never Smoked Alcohol: None Drugs: Denies Home Situation {Lives}: With Family - CARDIAC Hx Cardiac Disorders: Yes Hx Congestive Heart Failure: Yes Hx Hypercholesterolemia: Yes Hx Hypertension: Yes Hx Pacemaker: Yes Hx Peripheral Edema: Yes - PULMONARY Hx Respiratory Disorders: Yes Hx Asthma: Yes Hx Bronchitis: Yes Hx Chronic Obstructive Pulmonary Disease (COPD): Yes Hx Pneumonia: Yes - NEUROLOGICAL Hx Neurological Disorder: Yes Hx Dementia: Yes Hx Seizures: Yes - HEENT Hx HEENT Problems: Yes Hx Blind: Yes (left eye) Other/Comment: Hard of hear R ear., left eye blind - RENAL Hx Chronic Kidney Disease: Yes (mild renal insufficiecy.) - ENDOCRINE/METABOLIC Hx Endocrine Disorders: Yes Hx Hypothyroidism: Yes - HEMATOLOGICAL/ONCOLOGICAL Hx Blood Disorders: Yes Hx Anemia: Yes Hx Human Immunodeficiency Virus (HIV): No - INTEGUMENTARY Hx Dermatological Problems: No - MUSCULOSKELETAL/RHEUMATOLOGICAL Hx Musculoskeletal Disorders: Yes Hx Arthritis: Yes Hx Back Pain: Yes Hx Rheumatoid Arthritis: No - GASTROINTESTINAL Hx Gastrointestinal Disorders: Yes Hx Gastritis: Yes - GENITOURINARY/GYNECOLOGICAL Hx Genitourinary Disorders: Yes Hx Incontinence: Yes Hx Urinary Tract Infection: Yes - PSYCHIATRIC Hx Psychophysiologic Disorder: Yes Hx Anxiety: Yes Hx Depression: Yes - SURGICAL HISTORY Hx Surgeries: Yes Hx Amputation: Yes (TMA left) Hx Cholecystectomy: Yes Hx Coronary Artery Bypass Graft: Yes (x4) Hx Coronary Stent: Yes - ANESTHESIA Hx Anesthesia: Yes Hx Anesthesia Reactions: No Hx Malignant Hyperthermia: No Meds Allergies/Adverse Reactions: Allergies Allergy/AdvReac Type Severity Reaction Status Date / Time kiwi Allergy Mild RASH Verified 06/11/18 16:06 morphine Allergy Mild RASH Verified 06/11/18 16:06 Penicillins Allergy Mild RASH Verified 06/11/18 16:06 pineapple Allergy Mild RASH Verified 06/11/18 16:06 watermelon Allergy Mild RASH Verified 06/11/18 16:06 - Medications Medications: Current Medications Acetaminophen/Codeine Phosphate (Tylenol/Codeine 300 Mg/30 Mg) 1 tab PO Q6 PRN PRN Reason: Pain, severe (8-10) Alprazolam (Xanax) 0.25 mg PO BID PRN PRN Reason: Anxiety Stop: 06/18/18 23:33 Last Admin: 06/11/18 23:40 Dose: 0.25 mg Aspirin (Ecotrin) 81 mg PO DAILY [facility] Last Admin: 06/13/18 13:25 Dose: 81 mg Atorvastatin Calcium (Lipitor) 40 mg PO HS [facility] Last Admin: 06/12/18 21:46 Dose: 40 mg Calcium/Vitamin D (Oyster Shell Calcium/Vitamin D 500 Mg-200 Iu) 1 tab PO DAILY [facility] Last Admin: 06/13/18 13:27 Dose: 1 tab Carvedilol (Coreg) 12.5 mg PO Q12 [facility] Last Admin: 06/12/18 21:46 Dose: 12.5 mg Ferrous Sulfate (Feosol) 325 mg PO DAILY [facility] Last Admin: 06/13/18 13:25 Dose: 325 mg Furosemide (Lasix) 20 mg PO QOTHERDAY [facility] Last Admin: 06/12/18 09:18 Dose: 20 mg Gabapentin (Neurontin) 100 mg PO BID PRN PRN Reason: Nerve pain/neuropathy Home Med (Ranolazine [Ranexa]) 1,000 mg PO BID [facility] Last Admin: 06/13/18 13:27 Dose: 1,000 mg Sodium Chloride (Sodium Chloride 0.9%) 1,000 mls @ 100 mls/hr IV .Q10H [facility] Insulin Lispro Protam/Lispro Human (Humalog Mix 75/25) 5 units SC BID PRN PRN Reason: see comments Last Admin: 06/13/18 13:24 Dose: 5 units Loratadine (Claritin) 10 mg PO DAILY [facility] Last Admin: 06/13/18 13:25 Dose: 10 mg Physical Exam - Neurological Exam Neurological exam: Alert, CN II-XII Intact, Normal Gait, Oriented x3, Reflexes Normal Results - Vital Signs Recent Vital Signs: Last Vital Signs Temp 98.1 F 06/13/18 07:50 Pulse 59 L 06/13/18 07:50 Resp 18 06/13/18 07:50 BP 100/62 06/13/18 07:50 Pulse Ox 98 06/13/18 07:50 - Labs Result Diagrams: 06/13/18 10:22 06/13/18 10:22 Labs: Laboratory Results - last 24 hr 06/12/18 06/12/18 06/12/18 15:34 17:08 18:01 WBC RBC Hgb Hct MCV MCH MCHC RDW Plt Count PT INR APTT pCO2 pO2 HCO3 ABG pH ABG Total CO2 ABG O2 Saturation ABG O2 Content ABG Base Excess ABG Hemoglobin ABG Carboxyhemoglobin POC ABG HHb (Measured) ABG Methemoglobin ABG O2 Capacity August Test A-a O2 Difference Hgb O2 Saturation FiO2 Sodium Potassium Chloride Carbon Dioxide Anion Gap BUN Creatinine Est GFR ( Amer) Est GFR (Non-Af Amer) POC Glucose (mg/dL) 465 H* 393 H Random Glucose Calcium Total Bilirubin AST ALT Alkaline Phosphatase Troponin I < 0.0120 Total Protein Albumin Globulin Albumin/Globulin Ratio Triglycerides Cholesterol LDL Cholesterol Direct HDL Cholesterol TSH 3rd Generation Urine Color Urine Clarity Urine pH Ur Specific [place] Urine Protein Urine Glucose (UA) Urine Ketones Urine Blood Urine Nitrate Urine Bilirubin Urine Urobilinogen Ur Leukocyte Esterase Urine RBC (Auto) Urine Microscopic WBC Ur Squamous Epith Cells Urine Bacteria Blood Type Antibody Screen BBK History Checked 06/12/18 06/12/18 06/13/18 19:35 21:09 05:32 WBC RBC Hgb Hct MCV MCH MCHC RDW Plt Count PT INR APTT pCO2 pO2 HCO3 ABG pH ABG Total CO2 ABG O2 Saturation ABG O2 Content ABG Base Excess ABG Hemoglobin ABG Carboxyhemoglobin POC ABG HHb (Measured) ABG Methemoglobin ABG O2 Capacity August Test A-a O2 Difference Hgb O2 Saturation FiO2 Sodium Potassium Chloride Carbon Dioxide Anion Gap BUN Creatinine Est GFR ( Amer) Est GFR (Non-Af Amer) POC Glucose (mg/dL) 358 H 288 H Random Glucose Calcium Total Bilirubin AST ALT Alkaline Phosphatase Troponin I Total Protein Albumin Globulin Albumin/Globulin Ratio Triglycerides Cholesterol LDL Cholesterol Direct HDL Cholesterol TSH 3rd Generation Urine Color [place] Urine Clarity Cloudy Urine pH 5.0 Ur Specific [place] 1.010 Urine Protein 30 Urine Glucose (UA) 150 Urine Ketones Negative Urine Blood Small Urine Nitrate Positive H Urine Bilirubin Negative Urine Urobilinogen 0.2-1.0 Ur Leukocyte Esterase Large Urine RBC (Auto) 6 H Urine Microscopic WBC 25 H Ur Squamous Epith Cells 1 Urine Bacteria Mod H Blood Type Antibody Screen BBK History Checked 06/13/18 06/13/18 06/13/18 08:57 09:55 10:22 WBC 7.7 RBC 3.09 L Hgb 9.9 L Hct 29.2 L MCV 94.7 MCH 32.2 H MCHC 34.0 RDW 14.1 Plt Count 189 PT INR APTT pCO2 55 H pO2 100 HCO3 33.9 H ABG pH 7.44 ABG Total CO2 39.1 H ABG O2 Saturation 97.6 ABG O2 Content 14.5 L ABG Base Excess 11.5 H ABG Hemoglobin 10.6 L ABG Carboxyhemoglobin 0.5 POC ABG HHb (Measured) 2.4 ABG Methemoglobin 0.9 ABG O2 Capacity 14.9 L August Test Yes A-a O2 Difference 31.0 Hgb O2 Saturation 96.1 FiO2 28.0 Sodium Potassium Chloride Carbon Dioxide Anion Gap BUN Creatinine Est GFR ( Amer) Est GFR (Non-Af Amer) POC Glucose (mg/dL) 327 H Random Glucose Calcium Total Bilirubin AST ALT Alkaline Phosphatase Troponin I Total Protein Albumin Globulin Albumin/Globulin Ratio Triglycerides Cholesterol LDL Cholesterol Direct HDL Cholesterol TSH 3rd Generation Urine Color Urine Clarity Urine pH Ur Specific [place] Urine Protein Urine Glucose (UA) Urine Ketones Urine Blood Urine Nitrate Urine Bilirubin Urine Urobilinogen Ur Leukocyte Esterase Urine RBC (Auto) Urine Microscopic WBC Ur Squamous Epith Cells Urine Bacteria Blood Type Antibody Screen BBK History Checked 06/13/18 06/13/18 06/13/18 10:22 10:22 10:33 WBC RBC Hgb Hct MCV MCH MCHC RDW Plt Count PT 11.8 INR 1.1 APTT 30.2 pCO2 pO2 HCO3 ABG pH ABG Total CO2 ABG O2 Saturation ABG O2 Content ABG Base Excess ABG Hemoglobin ABG Carboxyhemoglobin POC ABG HHb (Measured) ABG Methemoglobin ABG O2 Capacity August Test A-a O2 Difference Hgb O2 Saturation FiO2 Sodium 139 Potassium 4.7 Chloride 96 L Carbon Dioxide 34 H Anion Gap 14 BUN 41 H Creatinine 2.4 H Est GFR ( Amer) 24 Est GFR (Non-Af Amer) 19 POC Glucose (mg/dL) Random Glucose 262 H Calcium 9.4 Total Bilirubin 0.4 AST 23 ALT 35 Alkaline Phosphatase 69 Troponin I < 0.0120 Total Protein 6.9 Albumin 3.2 L Globulin 3.8 Albumin/Globulin Ratio 0.8 L Triglycerides 171 H D Cholesterol 160 LDL Cholesterol Direct 65 HDL Cholesterol 38 TSH 3rd Generation 33.40 H Urine Color Urine Clarity Urine pH Ur Specific [place] Urine Protein Urine Glucose (UA) Urine Ketones Urine Blood Urine Nitrate Urine Bilirubin Urine Urobilinogen Ur Leukocyte Esterase Urine RBC (Auto) Urine Microscopic WBC Ur Squamous Epith Cells Urine Bacteria Blood Type O POSITIVE Antibody Screen Negative BBK History Checked Patient has bt 06/13/18 11:43 WBC RBC Hgb Hct MCV MCH MCHC RDW Plt Count PT INR APTT pCO2 pO2 HCO3 ABG pH ABG Total CO2 ABG O2 Saturation ABG O2 Content ABG Base Excess ABG Hemoglobin ABG Carboxyhemoglobin POC ABG HHb (Measured) ABG Methemoglobin ABG O2 Capacity August Test A-a O2 Difference Hgb O2 Saturation FiO2 Sodium Potassium Chloride Carbon Dioxide Anion Gap BUN Creatinine Est GFR ( Amer) Est GFR (Non-Af Amer) POC Glucose (mg/dL) 266 H Random Glucose Calcium Total Bilirubin AST ALT Alkaline Phosphatase Troponin I Total Protein Albumin Globulin Albumin/Globulin Ratio Triglycerides Cholesterol LDL Cholesterol Direct HDL Cholesterol TSH 3rd Generation Urine Color Urine Clarity Urine pH Ur Specific [place] Urine Protein Urine Glucose (UA) Urine Ketones Urine Blood Urine Nitrate Urine Bilirubin Urine Urobilinogen Ur Leukocyte Esterase Urine RBC (Auto) Urine Microscopic WBC Ur Squamous Epith Cells Urine Bacteria Blood Type Antibody Screen BBK History Checked Assessment & Plan (1) Toxic metabolic encephalopathy Assessment and Plan: Likely due to UTI. However, the acute change in mental status is concerning for possible seizure with post-ictal state. I recommend obtaining an EEG for further evaluation. Otherwise, continue conservative management and treat underlying infection. Thank you. Status: Acute
[2018-06-13] MEDS: Sodium Chloride 0.9% 1,000 ML IV SCH (17:51)
--- NOTE | 2018-06-13 20:34 | CP.PCM.PN ---
Subjective - Date & Time of Evaluation Date of Evaluation: 06/13/18 - Subjective Subjective: F/U CP/ UTI Pt awake, talking with at best side, in her base line as prior to [employer] Objective - Vital Signs/Intake and Output Vital Signs (last 24 hours): Temp Pulse Resp BP Pulse Ox 97.5 F L 130 H 20 123/66 96 06/13/18 20:19 06/13/18 20:19 06/13/18 20:19 06/13/18 20:19 06/13/18 20:19 - Medications Medications: Current Medications Acetaminophen/Codeine Phosphate (Tylenol/Codeine 300 Mg/30 Mg) 1 tab PO Q6 PRN PRN Reason: Pain, severe (8-10) Alprazolam (Xanax) 0.25 mg PO BID PRN PRN Reason: Anxiety Stop: 06/18/18 23:33 Last Admin: 06/11/18 23:40 Dose: 0.25 mg Aspirin (Ecotrin) 81 mg PO DAILY [facility] Last Admin: 06/13/18 13:25 Dose: 81 mg Atorvastatin Calcium (Lipitor) 40 mg PO HS [facility] Last Admin: 06/12/18 21:46 Dose: 40 mg Calcium/Vitamin D (Oyster Shell Calcium/Vitamin D 500 Mg-200 Iu) 1 tab PO DAILY [facility] Last Admin: 06/13/18 13:27 Dose: 1 tab Carvedilol (Coreg) 12.5 mg PO Q12 [facility] Last Admin: 06/13/18 13:43 Dose: Not Given Ferrous Sulfate (Feosol) 325 mg PO DAILY [facility] Last Admin: 06/13/18 13:25 Dose: 325 mg Furosemide (Lasix) 20 mg PO QOTHERDAY [facility] Last Admin: 06/12/18 09:18 Dose: 20 mg Gabapentin (Neurontin) 100 mg PO BID PRN PRN Reason: Nerve pain/neuropathy Home Med (Ranolazine [Ranexa]) 1,000 mg PO BID [facility] Last Admin: 06/13/18 17:48 Dose: Not Given Sodium Chloride (Sodium Chloride 0.9%) 1,000 mls @ 100 mls/hr IV .Q10H [facility] Last Admin: 06/13/18 17:51 Dose: 100 mls/hr Insulin Lispro Protam/Lispro Human (Humalog Mix 75/25) 5 units SC BID PRN PRN Reason: see comments Last Admin: 06/13/18 13:24 Dose: 5 units Loratadine (Claritin) 10 mg PO DAILY [facility] Last Admin: 06/13/18 13:25 Dose: 10 mg - Labs Labs: 06/13/18 10:22 06/13/18 10:22 PT 11.8 Seconds (9.8-13.1) 06/13/18 10:22 INR 1.1 06/13/18 10:22 APTT 30.2 Seconds (25.6-37.1) 06/13/18 10:22 - Constitutional Appears: No Acute Distress - Head Exam Head Exam: NORMAL INSPECTION - Eye Exam Eye Exam: PERRL (R eye , L eye blind) - ENT Exam Additional comments: Hard of hearing R ear - Neck Exam Neck Exam: Normal Inspection - Respiratory Exam Respiratory Exam: Decreased Breath Sounds - Cardiovascular Exam Cardiovascular Exam: REGULAR RHYTHM - GI/Abdominal Exam GI & Abdominal Exam: Soft, Normal Bowel Sounds - Extremities Exam Extremities Exam: Tenderness (R-L knee) Additional comments: TMA - Back Exam Back Exam: tenderness (mild) - Neurological Exam Neurological Exam: Awake Additional comments: Forgetful, follows commands, generalized weakness - Psychiatric Exam Psychiatric exam: Anxious - Skin Skin Exam: Warm Assessment and Plan (1) Chest pain, atypical Status: Acute (2) UTI (urinary tract infection) Status: Acute (3) Type 2 diabetes mellitus with hyperglycemia Status: Chronic (4) CHF (congestive heart failure) Status: Chronic (5) HTN (hypertension) Status: Chronic (6) COPD (chronic obstructive pulmonary disease) Status: Chronic (7) Generalized weakness Status: Chronic (8) High cholesterol Status: Chronic (9) Hx of CABG Status: Chronic - Assessment and Plan (Free Text) Plan: Discussed with Neurology to have EEG, continue current Tx.
--- NOTE | 2018-06-13 22:35 | CARD ---
APPROVED REPORT Date of service: 06/13/2018 <Conclusion> Normal sinus rhythm Normal ECG
[2018-06-14] MEDS: Sodium Chloride 0.9% 1,000 ML IV SCH (04:47)
[2018-06-14] MEDS: Calcium-Vit D 500 mg-200 Units Tab UD PO SCH (09:23)
[2018-06-14] MEDS: Insulin Lispro Mix 75/25 100 units/ml (HumaLog) 10ml SC PRN ×3 (09:23→21:39)
[2018-06-14] MEDS: Patient's Own Med (Ranolazine [Ranexa] 1,000 MG) PO SCH ×2 (09:23→16:30)
--- NOTE | 2018-06-14 18:38 | CP.PCM.PN ---
Subjective - Date & Time of Evaluation Date of Evaluation: 06/14/18 - Subjective Subjective: F/U CP/ UTI Pt c/o of pain in L shoulder, awake, answering question, family at bedside Objective - Vital Signs/Intake and Output Vital Signs (last 24 hours): Temp Pulse Resp BP Pulse Ox 97.6 F 65 20 122/68 99 06/14/18 15:47 06/14/18 15:47 06/14/18 15:47 06/14/18 15:47 06/14/18 15:47 - Medications Medications: Current Medications Acetaminophen/Codeine Phosphate (Tylenol/Codeine 300 Mg/30 Mg) 1 tab PO Q6 PRN PRN Reason: Pain, severe (8-10) Alprazolam (Xanax) 0.25 mg PO BID PRN PRN Reason: Anxiety Stop: 06/18/18 23:33 Last Admin: 06/13/18 23:43 Dose: 0.25 mg Aspirin (Ecotrin) 81 mg PO DAILY [facility] Last Admin: 06/14/18 09:22 Dose: 81 mg Atorvastatin Calcium (Lipitor) 40 mg PO HS [facility] Last Admin: 06/13/18 22:22 Dose: 40 mg Calcium/Vitamin D (Oyster Shell Calcium/Vitamin D 500 Mg-200 Iu) 1 tab PO DAILY [facility] Last Admin: 06/14/18 09:23 Dose: 1 tab Carvedilol (Coreg) 12.5 mg PO Q12 [facility] Last Admin: 06/14/18 09:22 Dose: 12.5 mg Ferrous Sulfate (Feosol) 325 mg PO DAILY [facility] Last Admin: 06/14/18 09:22 Dose: 325 mg Furosemide (Lasix) 20 mg PO QOTHERDAY [facility] Last Admin: 06/14/18 09:22 Dose: 20 mg Gabapentin (Neurontin) 100 mg PO BID PRN PRN Reason: Nerve pain/neuropathy Home Med (Ranolazine [Ranexa]) 1,000 mg PO BID [facility] Last Admin: 06/14/18 16:30 Dose: 1,000 mg Insulin Lispro Protam/Lispro Human (Humalog Mix 75/25) 5 units SC BID PRN PRN Reason: see comments Last Admin: 06/14/18 16:30 Dose: 5 units Loratadine (Claritin) 10 mg PO DAILY [facility] Last Admin: 06/14/18 09:22 Dose: 10 mg - Labs Labs: 06/13/18 10:22 06/13/18 10:22 PT 11.8 Seconds (9.8-13.1) 06/13/18 10:22 INR 1.1 06/13/18 10:22 APTT 30.2 Seconds (25.6-37.1) 06/13/18 10:22 - Constitutional Appears: Chronically Ill - Head Exam Head Exam: NORMAL INSPECTION - Eye Exam Eye Exam: PERRL (R eye, L eye blind) - ENT Exam Additional comments: Hard of hearing R ear - Neck Exam Neck Exam: Normal Inspection - Respiratory Exam Respiratory Exam: Decreased Breath Sounds - Cardiovascular Exam Cardiovascular Exam: REGULAR RHYTHM - GI/Abdominal Exam GI & Abdominal Exam: Soft, Normal Bowel Sounds - Extremities Exam Extremities Exam: Tenderness (R-L knee) Additional comments: L TMA. Decreased ROM L shoulder. - Back Exam Back Exam: tenderness (mild) - Neurological Exam Neurological Exam: Awake Additional comments: Ox2, forgetful, follows commands, generalized weakness. - Psychiatric Exam Psychiatric exam: Anxious - Skin Skin Exam: Warm Assessment and Plan (1) Chest pain, atypical Status: Acute (2) UTI (urinary tract infection) Status: Acute (3) Type 2 diabetes mellitus with hyperglycemia Status: Chronic (4) CHF (congestive heart failure) Status: Chronic (5) HTN (hypertension) Status: Chronic (6) COPD (chronic obstructive pulmonary disease) Status: Chronic (7) Generalized weakness Status: Chronic (8) High cholesterol Status: Chronic (9) Hx of CABG Status: Chronic - Assessment and Plan (Free Text) Plan: F/U EEG result, Pain Management consult for L shoulder pain, might need steroid inj.
--- NOTE | 2018-06-15 07:58 | CP.PCM.PN ---
Subjective - Date & Time of Evaluation Date of Evaluation: 06/15/18 Time of Evaluation: 08:00 - Subjective Subjective: 78 yo woman well known to me is referred for pain management of her shoulder pain. I had spoken with the patient's daughter about administering intra- articular shoulder injection to help with her shoulder pain as an outpatient. During admission, there is a possibility of gleno-humeral joint injection under fluroscope. However, her blood sugar is elevated on this admission, in the high 200's to 300 's. In light of UTI and recent AMS, I am not sure if injection with cortisone would worsen the clinical picture. Objective - Vital Signs/Intake and Output Vital Signs (last 24 hours): Temp Pulse Resp BP Pulse Ox 97.6 F 56 L 18 137/72 98 06/15/18 04:39 06/15/18 04:39 06/15/18 04:39 06/15/18 04:39 06/15/18 04:39 Intake and Output: 06/15/18 06/15/18 06:59 18:59 Output Total 1200 Balance -1200 - Medications Medications: Current Medications Acetaminophen/Codeine Phosphate (Tylenol/Codeine 300 Mg/30 Mg) 1 tab PO Q6 PRN PRN Reason: Pain, severe (8-10) Aspirin (Ecotrin) 81 mg PO DAILY [facility] Last Admin: 06/14/18 09:22 Dose: 81 mg Atorvastatin Calcium (Lipitor) 40 mg PO HS [facility] Last Admin: 06/14/18 22:00 Dose: 40 mg Calcium/Vitamin D (Oyster Shell Calcium/Vitamin D 500 Mg-200 Iu) 1 tab PO DAILY [facility] Last Admin: 06/14/18 09:23 Dose: 1 tab Carvedilol (Coreg) 12.5 mg PO Q12 [facility] Last Admin: 06/14/18 21:38 Dose: 12.5 mg Ferrous Sulfate (Feosol) 325 mg PO DAILY [facility] Last Admin: 06/14/18 09:22 Dose: 325 mg Furosemide (Lasix) 20 mg PO QOTHERDAY [facility] Last Admin: 06/14/18 09:22 Dose: 20 mg Gabapentin (Neurontin) 100 mg PO BID PRN PRN Reason: Nerve pain/neuropathy Home Med (Ranolazine [Ranexa]) 1,000 mg PO BID [facility] Last Admin: 06/14/18 16:30 Dose: 1,000 mg Insulin Lispro Protam/Lispro Human (Humalog Mix 75/25) 5 units SC BID PRN PRN Reason: see comments Last Admin: 06/14/18 21:39 Dose: 5 units Loratadine (Claritin) 10 mg PO DAILY [facility] Last Admin: 06/14/18 09:22 Dose: 10 mg - Labs Labs: 06/13/18 10:22 06/13/18 10:22 PT 11.8 Seconds (9.8-13.1) 06/13/18 10:22 INR 1.1 06/13/18 10:22 APTT 30.2 Seconds (25.6-37.1) 06/13/18 10:22 Assessment and Plan (1) Toxic metabolic encephalopathy Assessment & Plan: 78 yo woman w/ chronic left shoulder pain from severe OA and likely rotator cuff tear. Patient has had moderate relief from cortisone injection as an outpatient. However, given her current clinical picture, cortisone injection may not be prudent. - please re-consult when the blood sugar is below 200 and her mentation is at baseline - would administer injection prior to discharge Status: Acute
[2018-06-15 08:12] VITALS: O2SAT 100
[2018-06-15] MEDS: Patient's Own Med (Ranolazine [Ranexa] 1,000 MG) PO SCH (09:31)
[2018-06-15] MEDS: Calcium-Vit D 500 mg-200 Units Tab UD PO SCH (09:31)
[2018-06-15] MEDS: HUMULIN SC SCH ×2 (10:34→16:14)
--- NOTE | 2018-06-15 11:34 | PQF ---
PROVIDER RESPONSE TEXT: CKD stage 4 REVIEWER QUERY TEXT: Kidney Disease, Chronic CKD Stage Chronic Kidney Disease (CKD) is documented in the Medical Record. Please specify the disease stage ( includes probable or suspected) Such as: -- Chronic kidney disease Stage 1 -- Chronic kidney disease Stage 2 -- Chronic kidney disease Stage 3 -- Chronic kidney disease Stage 4 -- Chronic kidney disease Stage 5 -- Chronic kidney disease Stage 5, requiring dialysis -- End Stage Renal Disease -- Other, please specify Stages are defined by the [employer] as follows: CKD Stage I GFR >= 90 ml / min per 1.73 m2 and persistent albuminuria CKD Stage 2 GFR between 60 and 89 with persistent albuminuria CKD Stage 3 GFR between 30 and 59 CKD Stage 4 GFR between 15 and 29 CKD Stage 5 GFR between <15 or End Stage Renal Disease The patient's Clinical Indicators include: BUN 39, 36, 41 Creatinine 2.2, 2.2, 2.4 GFR 21, 21, 19 Query created by: Vilma Sanon on 06/15/2018 10:09 AM Electronically signed by: Sridhar Oliver MD 06/15/2018 11:31 AM
--- NOTE | 2018-06-15 12:22 | CP.PCM.PN ---
Objective - Vital Signs/Intake and Output Vital Signs (last 24 hours): Temp Pulse Resp BP Pulse Ox 97.4 F L 60 20 119/55 L 100 06/15/18 08:12 06/15/18 09:30 06/15/18 08:12 06/15/18 09:30 06/15/18 08:12 Intake and Output: 06/15/18 06/15/18 06:59 18:59 Output Total 1200 Balance -1200 - Medications Medications: Current Medications Acetaminophen/Codeine Phosphate (Tylenol/Codeine 300 Mg/30 Mg) 1 tab PO Q6 PRN PRN Reason: Pain, severe (8-10) Aspirin (Ecotrin) 81 mg PO DAILY [facility] Last Admin: 06/15/18 09:30 Dose: 81 mg Atorvastatin Calcium (Lipitor) 40 mg PO HS [facility] Last Admin: 06/14/18 22:00 Dose: 40 mg Calcium/Vitamin D (Oyster Shell Calcium/Vitamin D 500 Mg-200 Iu) 1 tab PO DAILY [facility] Last Admin: 06/15/18 09:31 Dose: 1 tab Carvedilol (Coreg) 12.5 mg PO Q12 [facility] Last Admin: 06/15/18 09:30 Dose: 12.5 mg Ferrous Sulfate (Feosol) 325 mg PO DAILY [facility] Last Admin: 06/15/18 09:31 Dose: 325 mg Furosemide (Lasix) 20 mg PO QOTHERDAY [facility] Last Admin: 06/14/18 09:22 Dose: 20 mg Gabapentin (Neurontin) 100 mg PO BID PRN PRN Reason: Nerve pain/neuropathy Home Med (Ranolazine [Ranexa]) 1,000 mg PO BID [facility] Last Admin: 06/15/18 09:31 Dose: 1,000 mg Home Med (Patient's Own Medication) 0 unit SC ACHS [facility] PRN Reason: Protocol Last Admin: 06/15/18 10:34 Dose: 1 unit Loratadine (Claritin) 10 mg PO DAILY [facility] Last Admin: 06/15/18 09:29 Dose: 10 mg - Labs Labs: 06/13/18 10:22 06/13/18 10:22 PT 11.8 Seconds (9.8-13.1) 06/13/18 10:22 INR 1.1 06/13/18 10:22 APTT 30.2 Seconds (25.6-37.1) 06/13/18 10:22 Assessment and Plan (1) Chest pain, atypical Status: Acute (2) UTI (urinary tract infection) Status: Acute (3) Type 2 diabetes mellitus with hyperglycemia Status: Chronic (4) CHF (congestive heart failure) Status: Chronic (5) HTN (hypertension) Status: Chronic (6) COPD (chronic obstructive pulmonary disease) Status: Chronic (7) Generalized weakness Status: Chronic (8) High cholesterol Status: Chronic (9) Hx of CABG Status: Chronic
[2018-06-15] MEDS ORDERED: Sodium Chloride 0.9% 500 ML IV ONE (13:55)
[2018-06-15 15:38] VITALS: BP 152/67; PULSE 58; RESP 20; TEMP 97.6
--- NOTE | 2018-06-15 16:47 | CP.PCM.DIS ---
Provider - Provider Date of Admission: 06/11/18 20:07 Attending physician: Sridhar Oliver MD Consults: Stroke team. Cardiology-Dr. Napoles Neurology-Dr. Hill Time Spent in preparation of Discharge (in minutes): 35 Diagnosis - Discharge Diagnosis (1) Chest pain, atypical Status: Acute Priority: High (2) UTI (urinary tract infection) Status: Acute Priority: High (3) Type 2 diabetes mellitus with hyperglycemia Status: Chronic Priority: High (4) CHF (congestive heart failure) Status: Chronic Priority: Medium (5) HTN (hypertension) Status: Chronic Priority: Medium (6) COPD (chronic obstructive pulmonary disease) Status: Chronic Priority: Medium (7) Generalized weakness Status: Chronic Priority: High (8) High cholesterol Status: Chronic Priority: Medium (9) Hx of CABG Status: Chronic Priority: Medium Hospital Course - Lab Results Lab Results: Most Recent Lab Values WBC 7.7 K/uL (4.8-10.8) 06/13/18 10:22 RBC 3.09 Mil/uL (3.80-5.20) L 06/13/18 10:22 Hgb 9.9 g/dL (12.0-16.0) L 06/13/18 10:22 Hct 29.2 % (34.0-47.0) L 06/13/18 10:22 MCV 94.7 fl (81.0-99.0) 06/13/18 10:22 MCH 32.2 pg (27.0-31.0) H 06/13/18 10:22 MCHC 34.0 g/dL (33.0-37.0) 06/13/18 10:22 RDW 14.1 % (11.5-14.5) 06/13/18 10:22 Plt Count 189 K/uL (130-400) 06/13/18 10:22 MPV 8.9 fl (7.2-11.7) 06/11/18 16:58 Neut % (Auto) 77.6 % (50.0-75.0) H 06/11/18 16:58 Lymph % (Auto) 13.8 % (20.0-40.0) L 06/11/18 16:58 [place] % (Auto) 6.7 % (0.0-10.0) 06/11/18 16:58 Eos % (Auto) 1.4 % (0.0-4.0) 06/11/18 16:58 Baso % (Auto) 0.5 % (0.0-2.0) 06/11/18 16:58 Neut # (Auto) 8.5 K/uL (1.8-7.0) H 06/11/18 16:58 Lymph # (Auto) 1.5 K/uL (1.0-4.3) 06/11/18 16:58 [place] # (Auto) 0.7 K/uL (0.0-0.8) 06/11/18 16:58 Eos # (Auto) 0.2 K/uL (0.0-0.7) 06/11/18 16:58 Baso # (Auto) 0.1 K/uL (0.0-0.2) 06/11/18 16:58 PT 11.8 Seconds (9.8-13.1) 06/13/18 10:22 INR 1.1 06/13/18 10:22 APTT 30.2 Seconds (25.6-37.1) 06/13/18 10:22 pCO2 55 mm/Hg (35-45) H 06/13/18 09:55 pO2 100 mm/Hg (80-100) 06/13/18 09:55 HCO3 33.9 mmol/L (21-28) H 06/13/18 09:55 ABG pH 7.44 (7.35-7.45) 06/13/18 09:55 ABG Total CO2 39.1 mmol/L (22-28) H 06/13/18 09:55 ABG O2 Saturation 97.6 % (95-98) 06/13/18 09:55 ABG O2 Content 14.5 ML/dL (15-23) L 06/13/18 09:55 ABG Base Excess 11.5 mmol/L (-2.0-3.0) H 06/13/18 09:55 ABG Hemoglobin 10.6 g/dL (11.7-17.4) L 06/13/18 09:55 ABG Carboxyhemoglobin 0.5 % (0.5-1.5) 06/13/18 09:55 POC ABG HHb (Measured) 2.4 % (0.0-5.0) 06/13/18 09:55 ABG Methemoglobin 0.9 % (0.0-3.0) 06/13/18 09:55 ABG O2 Capacity 14.9 mL/dL (16-24) L 06/13/18 09:55 August Test Yes 06/13/18 09:55 VBG pH 7.40 (7.32-7.43) 06/11/18 16:55 VBG pCO2 59 mmHg (40-60) 06/11/18 16:55 VBG HCO3 32.7 mmol/L 06/11/18 16:55 VBG Total CO2 38.3 mmol/L (22-28) H 06/11/18 16:55 VBG O2 Sat (Calc) 94.0 % (40-65) H 06/11/18 16:55 VBG Base Excess 10.1 mmol/L (0.0-2.0) H 06/11/18 16:55 VBG Potassium 4.7 mmol/L (3.6-5.2) 06/11/18 16:55 A-a O2 Difference 31.0 mm/Hg 06/13/18 09:55 Hgb O2 Saturation 96.1 % (95.0-98.0) 06/13/18 09:55 Sodium 136.0 mmol/L (132-148) 06/11/18 16:55 Chloride 106.0 mmol/L (98-107) 06/11/18 16:55 Glucose 314 mg/dL (65-105) H 06/11/18 16:55 Lactate 1.3 mmol/L (0.7-2.1) 06/11/18 16:55 FiO2 28.0 % 06/13/18 09:55 Sodium 139 mmol/l (132-148) 06/13/18 10:22 Potassium 4.7 MMOL/L (3.6-5.0) 06/13/18 10:22 Chloride 96 mmol/L (98-107) L 06/13/18 10:22 Carbon Dioxide 34 mmol/L (22-30) H 06/13/18 10:22 Anion Gap 14 (10-20) 06/13/18 10:22 BUN 41 mg/dl (7-17) H 06/13/18 10:22 Creatinine 2.4 mg/dl (0.7-1.2) H 06/13/18 10:22 Est GFR ( Amer) 24 06/13/18 10:22 Est GFR (Non-Af Amer) 19 06/13/18 10:22 POC Glucose (mg/dL) 321 mg/dL (65-110) H 06/15/18 15:55 Random Glucose 262 mg/dL (65-105) H 06/13/18 10:22 Calcium 9.4 mg/dL (8.4-10.2) 06/13/18 10:22 Total Bilirubin 0.4 mg/dl (0.2-1.3) 06/13/18 10:22 AST 23 U/L (14-36) 06/13/18 10:22 ALT 35 U/L (9-52) 06/13/18 10:22 Alkaline Phosphatase 69 U/L (38-126) 06/13/18 10:22 Troponin I < 0.0120 ng/mL (0.00-0.120) 06/13/18 10:22 NT-Pro-B Natriuret Pep 994 pg/ml (0-900) H 06/12/18 04:24 Total Protein 6.9 G/DL (6.3-8.2) 06/13/18 10:22 Albumin 3.2 g/dL (3.5-5.0) L 06/13/18 10:22 Globulin 3.8 gm/dL (2.2-3.9) 06/13/18 10:22 Albumin/Globulin Ratio 0.8 (1.0-2.1) L 06/13/18 10:22 Triglycerides 171 mg/DL (0-149) H D 06/13/18 10:22 Cholesterol 160 mg/dL (0-199) 06/13/18 10:22 LDL Cholesterol Direct 65 mg/dL (0-129) 06/13/18 10:22 HDL Cholesterol 38 MG/DL (30-70) 06/13/18 10:22 Lipase 13 U/L (23-300) L 06/11/18 16:58 Thyroxine (T4) 6.48 ug/dl (5.5-11.0) 06/12/18 04:24 TSH 3rd Generation 33.40 mIU/ML (0.46-4.68) H 06/13/18 10:22 Venous Blood Potassium 4.7 mmol/L (3.6-5.2) 06/11/18 16:55 Urine Color Sarah (YELLOW) 06/12/18 19:35 Urine Clarity Cloudy (Clear) 06/12/18 19:35 Urine pH 5.0 (5.0-8.0) 06/12/18 19:35 Ur Specific [place] 1.010 (1.003-1.030) 06/12/18 19:35 Urine Protein 30 mg/dL (NEGATIVE) 06/12/18 19:35 Urine Glucose (UA) 150 mg/dL (Normal) 06/12/18 19:35 Urine Ketones Negative mg/dL (NEGATIVE) 06/12/18 19:35 Urine Blood Small (NEGATIVE) 06/12/18 19:35 Urine Nitrate Positive (NEGATIVE) H 06/12/18 19:35 Urine Bilirubin Negative (NEGATIVE) 06/12/18 19:35 Urine Urobilinogen 0.2-1.0 mg/dL (0.2-1.0) 06/12/18 19:35 Ur Leukocyte Esterase Large [place]/uL (Negative) 06/12/18 19:35 Urine RBC (Auto) 6 /hpf (0-3) H 06/12/18 19:35 Urine Microscopic WBC 25 /hpf (0-5) H 06/12/18 19:35 Ur Squamous Epith Cells 1 /hpf (0-5) 06/12/18 19:35 Urine Bacteria Mod (<OCC) H 06/12/18 19:35 Blood Type O POSITIVE 06/13/18 10:33 Antibody Screen Negative 06/13/18 10:33 BBK History Checked Patient has bt 06/13/18 10:33 - Date & Time of H&P Date of H&P: 06/12/18 Time of H&P: 12:00 Discharge Exam - Head Exam Head Exam: NORMAL INSPECTION - Eye Exam Eye Exam: PERRL (R eye, L eye blind) - ENT Exam Additional comments: Hard of hearing R ear - Neck Exam Neck exam: Normal Inspection - Respiratory Exam Respiratory Exam: Decreased Breath Sounds - Cardiovascular Exam Cardiovascular Exam: REGULAR RHYTHM - GI/Abdominal Exam GI & Abdominal Exam: Normal Bowel Sounds, Soft - Extremities Exam Extremities exam: normal inspection (R/L knee) Additional comments: L TMA, decreased ROM L shoulder - Back Exam Back exam: tenderness (mild) - Neurological Exam Additional comments: Awake, Ox2, forgetful, follows commands, generalized weakness - Psychiatric Exam Psychiatric exam: Anxious - Skin Skin Exam: Warm Discharge Plan - Follow Up Plan Condition: GUARDED Disposition: HOME/ ROUTINE Patient education suggested?: Yes Instructions: Heart Failure, Adult (DC), Urinary Tract Infection, Adult (DC), Exacerbation of COPD (DC) Additional Instructions: will visit pt at home in 1 week Referrals: Sridhar Oliver MD [Family Provider] -
== END 2018-06-15 16:25 | disposition home or self-care (01) | DRG 543 ==
LOC: H.ER 16:02 → H.ERHOLD 20:07 → H.MEDSURG1 22:45 → H.TEL 06-13 09:24
PROVIDERS: ADMIT Internal Medicine Pulmonary Disease; ATTEND Internal Medicine Pulmonary Disease
DX: R07.89 Other chest pain (principal); I50.32 Chronic diastolic (congestive) heart failure; G92 Toxic encephalopathy; I13.0 Hypertensive heart and chronic kidney disease with heart failure and stage 1 through stage 4 chronic kidney disease, or unspecified chronic kidney disease; N18.4 Chronic kidney disease, stage 4 (severe); N39.0 Urinary tract infection, site not specified; E11.65 Type 2 diabetes mellitus with hyperglycemia; J44.9 Chronic obstructive pulmonary disease, unspecified; N18.3 Chronic kidney disease, stage 3 (moderate); E11.22 Type 2 diabetes mellitus with diabetic chronic kidney disease; F03.90 Unspecified dementia, unspecified severity, without behavioral disturbance, psychotic disturbance, mood disturbance, and anxiety; R56.9 Unspecified convulsions; E03.9 Hypothyroidism, unspecified; I25.10 Atherosclerotic heart disease of native coronary artery without angina pectoris; E78.5 Hyperlipidemia, unspecified; M19.012 Primary osteoarthritis, left shoulder; E78.00 Pure hypercholesterolemia, unspecified; H54.62 Unqualified visual loss, left eye, normal vision right eye; F41.9 Anxiety disorder, unspecified; K29.70 Gastritis, unspecified, without bleeding; Z95.0 Presence of cardiac pacemaker; Z95.1 Presence of aortocoronary bypass graft; Z95.5 Presence of coronary angioplasty implant and graft; Z87.440 Personal history of urinary (tract) infections; Z87.01 Personal history of pneumonia (recurrent); Z79.82 Long term (current) use of aspirin

== ENCOUNTER 2018-07-10 20:54 | Inpatient (IN) | payer MEDICAID ==
[2018-07-10 20:54] VITALS: BMI 29.3
--- NOTE | 2018-07-10 21:48 | ED PDOC ---
HPI: Chest Pain Time Seen by Provider: 07/10/18 21:05 Chief Complaint (Nursing): Chest Pain Chief Complaint (Provider): Chest Pain History Per: Family (daughter) History/Exam Limitations: no limitations Onset/Duration Of Symptoms: Days Current Symptoms Are (Timing): Still Present Quality: "Pain" Additional Complaint(s): 78 year old female with PMHx of CAD, CABG, CHF, HTN and diabetes was brought to the ER via EMS for an episode of chest pain and possibly UTI. Patient is a poor historian and history was obtained by the daughter. Daughter states, since yesterday morning patient has been confused and had a tactile fever but no temperature was taken. 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 PMD: Sridhar Oliver Past Medical History Reviewed: Historical Data, Nursing Documentation, Vital Signs Vital Signs: Last Vital Signs Temp 99.2 F 07/10/18 20:57 Pulse 78 07/10/18 21:20 Resp 18 07/10/18 20:57 BP 144/71 07/10/18 21:20 Pulse Ox 100 07/10/18 21:20 - Medical History PMH: Anemia, Anxiety, Arthritis, Asthma, Back Problems, Bronchitis, CAD, CHF, COPD, Dementia, Depression, Diabetes, Gastritis, HTN, Hypercholesterolemia, Hyperlipidemia, Hypothyroidism, Peripheral Edema, Pneumonia, Chronic Kidney Disease (mild renal insufficiecy.), Seizures Denies: HIV, Rheumatoid Arthritis - Surgical History Surgical History: CABG (x4), Cholecystectomy, Coronary Stent, Pacemaker - Family History Family History: States: Unknown Family Hx - Social History Current smoker - smoking cessation education provided: No Alcohol: None Drugs: Denies - Home Medications Home Medications: Ambulatory Orders Medication Instructions Recorded Aspirin [Ecotrin] 81 mg PO DAILY 01/12/17 Carvedilol [Coreg] 3.125 mg PO DAILY 01/12/17 Ranolazine [Ranexa] 1,000 mg PO BID 01/12/17 Atorvastatin [Lipitor] 40 mg PO HS 02/01/17 Acetaminophen/Codeine 1 tab PO Q6 PRN 03/12/18 [Tylenol/Codeine 300 MG/30 MG] Ferrous Sulfate [Feosol] 325 mg PO DAILY 03/12/18 Furosemide [Lasix] 20 mg PO QOTHERDAY 03/12/18 Gabapentin [Neurontin] 100 mg PO BID PRN 03/12/18 Loratadine [Claritin] 10 mg PO DAILY 03/12/18 Phenazopyridine [Pyridium] 200 mg PO BID PRN 03/12/18 ALPRAZolam [Xanax] 0.25 mg PO BID PRN 04/20/18 Calcium Carbonate/Vitamin D3 600 mg PO DAILY 04/23/18 [Calcium 600 + Vit D Tablet] Insulin Aspar/Insulin N 70/30 100 unit SC PRN PRN 05/25/18 [Novolog Mix 70/30-U/ml 3Ml] Insulin Lispro Mix 75/25 [HumaLog 5 units SC BID PRN 06/12/18 MIX 75/25] - Allergies Allergies/Adverse Reactions: Allergies Allergy/AdvReac Type Severity Reaction Status Date / Time kiwi Allergy Mild RASH Verified 07/10/18 21:01 morphine Allergy Mild RASH Verified 07/10/18 21:01 Penicillins Allergy Mild RASH Verified 07/10/18 21:01 pineapple Allergy Mild RASH Verified 07/10/18 21:01 watermelon Allergy Mild RASH Verified 07/10/18 21:01 Review of Systems Review Of Systems: ROS cannot be obtained secondary to pt's inabilty to answer questions. Physical Exam - Reviewed Nursing Documentation Reviewed: Yes Vital Signs Reviewed: Yes - Physical Exam Appears: Positive for: Non-toxic, No Acute Distress. Negative for: Well (Positively clinically ill appearing ) Head Exam: Positive for: ATRAUMATIC, NORMAL INSPECTION, NORMOCEPHALIC Skin: Positive for: Normal Color, Warm, Dry. Negative for: Rash Eye Exam: Positive for: Normal appearance Neurologic/Psych: Positive for: Alert. Negative for: Oriented - Laboratory Results Result Diagrams: 07/10/18 21:59 07/10/18 21:59 - ECG O2 Sat by Pulse Oximetry: 100 (RA) Pulse Ox Interpretation: Normal Medical Decision Making Medical Decision Making: Time: 2115 A/p: 78 year old female with PMHx of cardiac history presents with resolved chest pain and UTI. Will evaluate patient for cardiac etiology as well as sepsis for possible UTI. 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 Oliver who agrees with admission --Blood cultures were drawn prior to ABx administration --Will watch for allergy to cefepime given PNC allergy Scribe Attestation: Documented by, Ken Dumont acting as a scribe for Raz Castellanos MD Provider Scribe Attestation: All medical record entries made by the Scribe were at my direction and personally dictated by me. I have reviewed the chart and agree that the record accurately reflects my personal performance of the history, physical exam, medical decision making, and the department course for this patient. I have also personally directed, reviewed, and agree with the discharge instructions and disposition. Disposition - Clinical Impression Clinical Impression: Chest pain, UTI (urinary tract infection) - Patient ED Disposition Is Patient to be Admitted: Yes - Disposition Disposition Time: 00:00 Condition: FAIR Forms: Wurl (Pashto)
[2018-07-10 22:10] LABS: VENOUS BLOOD GAS BASE EXCESS 6.5 mmol/L (0.0-2.0); VENOUS BLOOD GAS PCO2 62 mmHg (40-60); VENOUS BLOOD GAS PO2 43 mm/Hg (30-55); VENOUS BLOOD PH 7.35 (7.32-7.43)
[2018-07-10 22:26] LABS: BASO # 0.1 K/uL (0.0-0.2); BASO % 0.7 % (0.0-2.0); EOS # 0.2 K/uL (0.0-0.7); EOS % 2.2 % (0.0-4.0); HEMOGLOBIN 10.9 g/dL (12.0-16.0); LYMPH % 12.2 % (20.0-40.0); MEAN CORPUSCULAR HEMOGLOBIN 32.8 pg (27.0-31.0); MEAN CORPUSCULAR HGB CONC 34.1 g/dL (33.0-37.0); MEAN PLATELET VOLUME 8.8 fl (7.2-11.7); MONO # 0.5 K/uL (0.0-0.8); MONO % 5.7 % (0.0-10.0); NEUT # 6.4 K/uL (1.8-7.0); NEUT % 79.2 % (50.0-75.0); RBC 3.31 Mil/uL (3.80-5.20); RED CELL DISTRIBUTION WIDTH 14.4 % (11.5-14.5); WHITE BLOOD COUNT 8.1 K/uL (4.8-10.8)
[2018-07-10 22:37] LABS: BLOOD UREA NITROGEN 32 mg/dl (7-17); CALCIUM 9.3 mg/dL (8.4-10.2); GFR NON-AFRICAN AMERICAN 31
[2018-07-10 22:45] LABS: B-TYPE NATRIURETIC PEPTIDE 986 pg/ml (0-900)
[2018-07-10 22:47] LABS: PROTHROMBIN TIME 11.4 Seconds (9.8-13.1)
[2018-07-10 22:49] LABS: PARTIAL THROMBOPLASTIN TIME 32.1 Seconds (25.6-37.1)
[2018-07-11 00:14] LABS: SQUAMOUS EPITHIAL 1 /hpf (0-5); URINE BACTERIA FEW (<OCC); URINE BILIRUBIN NEGATIVE (NEGATIVE); URINE BLOOD NEGATIVE (NEGATIVE); URINE CLARITY TURBID (Clear); URINE COLOR AMBER (YELLOW); URINE GLUCOSE (UA) NEG (Normal); URINE LEUKOCYTE ESTERASE LARGE Leu/uL (Negative); URINE PROTEIN >=500 mg/dL (NEGATIVE); URINE UROBILINOGEN 0.2-1.0 mg/dL (0.2-1.0); WBC CLUMPS MANY /hpf
[2018-07-11] MEDS ORDERED: Cefepime 1 GM in Sodium Chloride 0.9% 100 ML IVPB STA (00:30)
[2018-07-11] MEDS ORDERED: Vancomycin 1 g Inj ONE (01:13)
[2018-07-11 09:31] LABS: MEAN CELL VOLUME 95.6 fl (81.0-99.0); MEAN CORPUSCULAR HGB CONC 33.5 g/dL (33.0-37.0); RBC 3.13 Mil/uL (3.80-5.20); RED CELL DISTRIBUTION WIDTH 14.2 % (11.5-14.5); WHITE BLOOD COUNT 5.8 K/uL (4.8-10.8)
[2018-07-11 09:50] LABS: ALB/GLOB RATIO 0.9 (1.0-2.1); ALBUMIN 3.1 g/dL (3.5-5.0); ALT/SGPT 34 U/L (9-52); AST/SGOT 36 U/L (14-36); BLOOD UREA NITROGEN 32 mg/dl (7-17); CALCIUM 8.9 mg/dL (8.4-10.2); GFR NON-AFRICAN AMERICAN 31; HDL CHOLESTEROL 35 MG/DL (30-70)
[2018-07-11 09:57] LABS: LDL CHOLESTEROL 58 mg/dL (0-129)
[2018-07-11 10:01] LABS: T4 9.22 ug/dl (5.5-11.0)
[2018-07-11] MEDS: HUMALIN SC SCH ×2 (10:10→17:02)
--- NOTE | 2018-07-11 10:32 | RAD ---
Date of service: 07/10/2018 PROCEDURE: CHEST RADIOGRAPH, 1 VIEW HISTORY: cp COMPARISON: Portable chest 06/13/2018. FINDINGS: LUNGS: Improved inspiratory volume identified. Limited fibrosis or linear atelectasis identified at the left base. No definite alveolitis appreciated bilaterally. PLEURA: No pneumothorax or pleural fluid seen. CARDIOVASCULAR: Normal. OSSEOUS STRUCTURES: Sternotomy wires reiterated. Surgical clips again noted right upper quadrant abdomen. VISUALIZED UPPER ABDOMEN: Normal. OTHER FINDINGS: None. IMPRESSION: Linear atelectasis or fibrosis noted left base with remaining lung matthew clear. Improved inspiratory volume appreciated bilaterally. No acute infiltrate or cardiovascular changes.
--- NOTE | 2018-07-11 12:35 | CP.PCM.CON ---
History of Present Illness - History of Present Illness History of Present Illness: Neurology Consultation Note: Mr. Bg Crouch is an 78-year-old woman, who was referred to me by Dr. Oliver, with a past medical history of CAD, CABG, CHF, HTN and diabetes was brought to the ER via EMS for an episode of chest pain and was found to be confused. Labs were concerning for UTI and dehydration. She takes Xanax at home. Neurology was consulted for confusion. When I saw the patient, she was still quite confused and had some abnormal movements that were rhythmic on the left side. Review of Systems - Review of Systems Systems not reviewed;Unavailable: Altered Mental Status - Constitutional Constitutional: As Per HPI Past Patient History - Infectious Disease Hx of Infectious Diseases: None - Tetanus Immunizations Tetanus Immunization: Unknown - Past Medical History & Family History Past Medical History?: Yes - Past Social History Smoking Status: Never Smoked - CARDIAC Hx Cardiac Disorders: Yes Hx Congestive Heart Failure: Yes Hx Hypercholesterolemia: Yes Hx Hypertension: Yes Hx Pacemaker: No Hx Peripheral Edema: Yes - PULMONARY Hx Respiratory Disorders: Yes Hx Asthma: Yes Hx Bronchitis: Yes Hx Chronic Obstructive Pulmonary Disease (COPD): Yes Hx Pneumonia: Yes - NEUROLOGICAL Hx Neurological Disorder: Yes Hx Dementia: Yes Hx Seizures: Yes - HEENT Hx HEENT Problems: Yes Hx Blind: Yes (left eye) Hx Difficulty Chewing: Yes (dentures) Other/Comment: Hard of hear R ear., left eye blind - RENAL Hx Chronic Kidney Disease: Yes (mild renal insufficiecy.) - ENDOCRINE/METABOLIC Hx Endocrine Disorders: Yes Hx Diabetes Mellitus Type 2: Yes Hx Hypothyroidism: Yes - HEMATOLOGICAL/ONCOLOGICAL Hx Blood Disorders: Yes Hx AIDS: No Hx Anemia: Yes Hx Human Immunodeficiency Virus (HIV): No - INTEGUMENTARY Hx Dermatological Problems: No - MUSCULOSKELETAL/RHEUMATOLOGICAL Hx Musculoskeletal Disorders: Yes Hx Back Pain: Yes Hx Falls: No - GASTROINTESTINAL Hx Gastrointestinal Disorders: Yes Hx Gastritis: Yes - GENITOURINARY/GYNECOLOGICAL Hx Genitourinary Disorders: Yes Hx Incontinence: Yes Hx Urinary Tract Infection: Yes - PSYCHIATRIC Hx Psychophysiologic Disorder: No Hx Substance Use: No - SURGICAL HISTORY Hx Surgeries: Yes Hx Cholecystectomy: Yes Hx Coronary Artery Bypass Graft: Yes (x4) Hx Coronary Stent: Yes - ANESTHESIA Hx Anesthesia: Yes Hx Anesthesia Reactions: No Hx Malignant Hyperthermia: No Meds Allergies/Adverse Reactions: Allergies Allergy/AdvReac Type Severity Reaction Status Date / Time kiwi Allergy Mild RASH Verified 07/10/18 21:01 morphine Allergy Mild RASH Verified 07/10/18 21:01 Penicillins Allergy Mild RASH Verified 07/10/18 21:01 pineapple Allergy Mild RASH Verified 07/10/18 21:01 watermelon Allergy Mild RASH Verified 07/10/18 21:01 - Medications Medications: Current Medications Alprazolam (Xanax) 0.25 mg PO Q12 PRN PRN Reason: Anxiety Stop: 07/18/18 08:59 Aspirin (Aspirin Chewable) 81 mg PO DAILY [facility] Last Admin: 07/11/18 10:08 Dose: 81 mg Atorvastatin Calcium (Lipitor) 40 mg PO HS [facility] Carvedilol (Coreg) 3.125 mg PO Q12 [facility] Last Admin: 07/11/18 10:08 Dose: 3.125 mg Ferrous Sulfate (Feosol) 325 mg PO DAILY [facility] Last Admin: 07/11/18 10:08 Dose: 325 mg Home Med (Patient's Own Medication) 20 unit SC ACBD [facility] Last Admin: 07/11/18 10:10 Dose: 20 unit Phenazopyridine HCl (Pyridium) 200 mg PO TID [facility] Ranolazine (Ranexa) 1,000 mg PO BID [facility] Physical Exam - Constitutional Appears: Well - Head Exam Head Exam: ATRAUMATIC, NORMAL INSPECTION, NORMOCEPHALIC - Eye Exam Eye Exam: EOMI, Normal appearance, PERRL - ENT Exam ENT Exam: Mucous Membranes Moist, Normal Exam - Neck Exam Neck exam: Positive for: Normal Inspection - Respiratory Exam Respiratory Exam: Clear to Auscultation Bilateral, NORMAL BREATHING PATTERN - Cardiovascular Exam Cardiovascular Exam: REGULAR RHYTHM, +S1, +S2 - GI/Abdominal Exam GI & Abdominal Exam: Normal Bowel Sounds, Soft. absent: Tenderness - Rectal Exam Rectal Exam: Deferred - Neurological Exam Neurological exam: Altered, CN II-XII Intact, Reflexes Normal Additional comments: Confused about place, and time, oriented to self, but not verbalizing very well. Left upper extremity was weaker and had occasional rhythmic movements. Moves all extremities, sensation is intact - Psychiatric Exam Psychiatric exam: Flat Affect, Normal Affect - Skin Skin Exam: Dry, Intact, Normal Color, Warm Results - Vital Signs Recent Vital Signs: Last Vital Signs Temp 97.9 F 07/11/18 12:12 Pulse 65 07/11/18 12:12 Resp 18 07/11/18 12:12 BP 110/58 L 07/11/18 12:12 Pulse Ox 96 07/11/18 12:12 - Labs Result Diagrams: 07/11/18 09:00 07/11/18 09:00 Labs: Laboratory Results - last 24 hr 07/10/18 07/10/18 07/10/18 21:59 21:59 21:59 WBC 8.1 RBC 3.31 L Hgb 10.9 L Hct 31.8 L MCV 96.0 MCH 32.8 H MCHC 34.1 RDW 14.4 Plt Count 211 MPV 8.8 Neut % (Auto) 79.2 H Lymph % (Auto) 12.2 L [place] % (Auto) 5.7 Eos % (Auto) 2.2 Baso % (Auto) 0.7 Neut # (Auto) 6.4 Lymph # (Auto) 1.0 [place] # (Auto) 0.5 Eos # (Auto) 0.2 Baso # (Auto) 0.1 PT 11.4 INR 1.0 APTT 32.1 pO2 VBG pH VBG pCO2 VBG HCO3 VBG Total CO2 VBG O2 Sat (Calc) VBG Base Excess VBG Potassium Glucose Lactate FiO2 Sodium 141 Potassium 5.1 H Chloride 104 Carbon Dioxide 33 H Anion Gap 9 L BUN 32 H Creatinine 1.6 H Est GFR ( Amer) 38 Est GFR (Non-Af Amer) 31 POC Glucose (mg/dL) Random Glucose 198 H Calcium 9.3 Total Bilirubin AST ALT Alkaline Phosphatase Troponin I < 0.0120 NT-Pro-B Natriuret Pep 986 H Total Protein Albumin Globulin Albumin/Globulin Ratio Triglycerides Cholesterol LDL Cholesterol Direct HDL Cholesterol Thyroxine (T4) TSH 3rd Generation Venous Blood Potassium Urine Color Urine Clarity Urine pH Ur Specific [place] Urine Protein Urine Glucose (UA) Urine Ketones Urine Blood Urine Nitrate Urine Bilirubin Urine Urobilinogen Ur Leukocyte Esterase Urine RBC (Auto) Urine WBC Clumps (Auto) Urine Microscopic WBC Ur Squamous Epith Cells Urine Bacteria 07/10/18 07/11/18 07/11/18 22:07 00:01 05:20 WBC RBC Hgb Hct MCV MCH MCHC RDW Plt Count MPV Neut % (Auto) Lymph % (Auto) [place] % (Auto) Eos % (Auto) Baso % (Auto) Neut # (Auto) Lymph # (Auto) [place] # (Auto) Eos # (Auto) Baso # (Auto) PT INR APTT pO2 43 VBG pH 7.35 VBG pCO2 62 H VBG HCO3 29.4 VBG Total CO2 36.1 H VBG O2 Sat (Calc) 82.3 H VBG Base Excess 6.5 H VBG Potassium 5.2 Glucose 205 H Lactate 0.8 FiO2 21.0 Sodium 139.0 Potassium Chloride 104.0 Carbon Dioxide Anion Gap BUN Creatinine Est GFR ( Amer) Est GFR (Non-Af Amer) POC Glucose (mg/dL) 256 H Random Glucose Calcium Total Bilirubin AST ALT Alkaline Phosphatase Troponin I NT-Pro-B Natriuret Pep Total Protein Albumin Globulin Albumin/Globulin Ratio Triglycerides Cholesterol LDL Cholesterol Direct HDL Cholesterol Thyroxine (T4) TSH 3rd Generation Venous Blood Potassium 5.2 Urine Color Sarah Urine Clarity Turbid Urine pH 6.0 Ur Specific [place] 1.016 Urine Protein >=500 Urine Glucose (UA) Neg Urine Ketones Negative Urine Blood Negative Urine Nitrate Negative Urine Bilirubin Negative Urine Urobilinogen 0.2-1.0 Ur Leukocyte Esterase Large Urine RBC (Auto) 33 H Urine WBC Clumps (Auto) Many H Urine Microscopic WBC 1430 H Ur Squamous Epith Cells 1 Urine Bacteria Few H 07/11/18 07/11/18 09:00 09:00 WBC 5.8 RBC 3.13 L Hgb 10.0 L Hct 29.9 L MCV 95.6 MCH 32.0 H MCHC 33.5 RDW 14.2 Plt Count 198 MPV Neut % (Auto) Lymph % (Auto) [place] % (Auto) Eos % (Auto) Baso % (Auto) Neut # (Auto) Lymph # (Auto) [place] # (Auto) Eos # (Auto) Baso # (Auto) PT INR APTT pO2 VBG pH VBG pCO2 VBG HCO3 VBG Total CO2 VBG O2 Sat (Calc) VBG Base Excess VBG Potassium Glucose Lactate FiO2 Sodium 142 Potassium 4.9 Chloride 108 H Carbon Dioxide 31 H Anion Gap 8 L BUN 32 H Creatinine 1.6 H Est GFR ( Amer) 38 Est GFR (Non-Af Amer) 31 POC Glucose (mg/dL) Random Glucose 234 H Calcium 8.9 Total Bilirubin 0.3 AST 36 D ALT 34 Alkaline Phosphatase 92 Troponin I < 0.0120 NT-Pro-B Natriuret Pep Total Protein 6.7 Albumin 3.1 L Globulin 3.6 Albumin/Globulin Ratio 0.9 L Triglycerides 149 Cholesterol 139 LDL Cholesterol Direct 58 HDL Cholesterol 35 Thyroxine (T4) 9.22 TSH 3rd Generation 3.17 Venous Blood Potassium Urine Color Urine Clarity Urine pH Ur Specific [place] Urine Protein Urine Glucose (UA) Urine Ketones Urine Blood Urine Nitrate Urine Bilirubin Urine Urobilinogen Ur Leukocyte Esterase Urine RBC (Auto) Urine WBC Clumps (Auto) Urine Microscopic WBC Ur Squamous Epith Cells Urine Bacteria Assessment & Plan (1) Toxic metabolic encephalopathy Assessment and Plan: Likely due to a mixture of infection, medications and dehydration with kidney injury. Please treat the underlying causes and re-consult if the patient continues to be confused or there is concern for a primary MONUMENTAL STONEMASON cause. Will evaluate for possible complex partial seizures as well with an EEG. Thank you for this consultation. Status: Acute
--- NOTE | 2018-07-11 14:43 | CARD ---
APPROVED REPORT Date of service: 07/11/2018 EKG Measurement Heart [id number] <Conclusion> Normal sinus rhythm Left axis deviation Otherwise normal ECG
--- NOTE | 2018-07-11 15:00 | CARD ---
APPROVED REPORT Date of service: 07/10/2018 EKG Measurement Heart [id number] <Conclusion> Sinus rhythm with fusion complexes Otherwise normal ECG
[2018-07-11] MEDS: Ranolazine 500 mg Extended Release Tablets PO SCH (17:03)
--- NOTE | 2018-07-11 17:51 | CP.PCM.HP ---
History of Present Illness - History of Present Illness History of Present Illness: CC: Chest pain. 78 y/o F, with multiple chronic medical conditions, including Dementia, Hx. CABG, PPM, COPD, HTN, with multiple admissions for UTI, Chest pain. Pt was brought to ER [facility], via EMS for evaluation of Chest pain, onset day [employer]OS[employer]LET[employer] PHYSIC[employer]. As per family; Chest pain was described as midsternal, tightness type, intermittent, moderate to severe intensity 8:10, non radiated, associated to tactile fever while at home, also lethargic with mental alteration. Pt had 1 1/2 Ntg in the ER with relief. Worsening symptoms: Found with recurrent UTI on lab. Aggravated symptom: Poor historian. No: Syncope, numbness, n/v/d, sick contact, recent travel out of [facility]. CXR: No infiltrates. EKG: Sinus rhythm with fusion complexes. Present on Admission - Present on Admission Any Indicators Present on Admission: No Review of Systems - Review of Systems Systems not reviewed;Unavailable: Acuity of Condition, Altered Mental Status Past Patient History - Infectious Disease Hx of Infectious Diseases: None - Tetanus Immunizations Tetanus Immunization: Unknown - Past Medical History & Family History Past Medical History?: Yes Pertinent Family History: Unknown - Past Social History Smoking Status: Never Smoked Alcohol: None Drugs: Denies Home Situation {Lives}: With Family - CARDIAC Hx Cardiac Disorders: Yes Hx Congestive Heart Failure: Yes Hx Hypercholesterolemia: Yes Hx Hypertension: Yes Hx Pacemaker: No Hx Peripheral Edema: Yes - PULMONARY Hx Respiratory Disorders: Yes Hx Asthma: Yes Hx Bronchitis: Yes Hx Chronic Obstructive Pulmonary Disease (COPD): Yes Hx Pneumonia: Yes - NEUROLOGICAL Hx Neurological Disorder: Yes Hx Dementia: Yes Hx Seizures: Yes - HEENT Hx HEENT Problems: Yes Hx Blind: Yes (left eye) Hx Difficulty Chewing: Yes (dentures) Other/Comment: Hard of hear R ear., left eye blind - RENAL Hx Chronic Kidney Disease: Yes (mild renal insufficiecy.) - ENDOCRINE/METABOLIC Hx Endocrine Disorders: Yes Hx Diabetes Mellitus Type 2: Yes Hx Hypothyroidism: Yes - HEMATOLOGICAL/ONCOLOGICAL Hx Blood Disorders: Yes Hx AIDS: No Hx Anemia: Yes Hx Human Immunodeficiency Virus (HIV): No - INTEGUMENTARY Hx Dermatological Problems: No - MUSCULOSKELETAL/RHEUMATOLOGICAL Hx Musculoskeletal Disorders: Yes Hx Back Pain: Yes Hx Falls: No - GASTROINTESTINAL Hx Gastrointestinal Disorders: Yes Hx Gastritis: Yes - GENITOURINARY/GYNECOLOGICAL Hx Genitourinary Disorders: Yes Hx Incontinence: Yes Hx Urinary Tract Infection: Yes - PSYCHIATRIC Hx Psychophysiologic Disorder: No Hx Substance Use: No - SURGICAL HISTORY Hx Surgeries: Yes Hx Cholecystectomy: Yes Hx Coronary Artery Bypass Graft: Yes (x4) Hx Coronary Stent: Yes - ANESTHESIA Hx Anesthesia: Yes Hx Anesthesia Reactions: No Hx Malignant Hyperthermia: No Meds Allergies/Adverse Reactions: Allergies Allergy/AdvReac Type Severity Reaction Status Date / Time kiwi Allergy Mild RASH Verified 07/10/18 21:01 morphine Allergy Mild RASH Verified 07/10/18 21:01 Penicillins Allergy Mild RASH Verified 07/10/18 21:01 pineapple Allergy Mild RASH Verified 07/10/18 21:01 watermelon Allergy Mild RASH Verified 07/10/18 21:01 Physical Exam - Constitutional Appears: Confused, Chronically Ill - Head Exam Head Exam: NORMAL INSPECTION - Eye Exam Eye Exam: PERRL (R eye, L eye blind) - ENT Exam Additional comments: Hard of hearing R side - Neck Exam Neck exam: Positive for: Normal Inspection - Respiratory Exam Respiratory Exam: NORMAL BREATHING PATTERN - Cardiovascular Exam Cardiovascular Exam: REGULAR RHYTHM - GI/Abdominal Exam GI & Abdominal Exam: Normal Bowel Sounds, Soft - Extremities Exam Extremities exam: Positive for: tenderness (R-L knee) Additional comments: L TMA - Back Exam Back exam: tenderness (mild) - Neurological Exam Neurological exam: Altered, CN II-XII Intact Additional comments: Confused, forgetful, LUE with some occasional rhythmic, generalized weakness. - Psychiatric Exam Psychiatric exam: Anxious - Skin Skin Exam: Normal Color, Warm Results - Vital Signs Recent Vital Signs: Last Vital Signs Temp 97.6 F 07/11/18 16:08 Pulse 74 07/11/18 16:08 Resp 20 07/11/18 16:08 BP 156/81 H 07/11/18 16:08 Pulse Ox 96 07/11/18 16:08 reviewed Cheryl - Labs Result Diagrams: 07/15/18 05:00 07/15/18 07:47 Labs: Laboratory Results - last 24 hr 07/10/18 07/10/18 07/10/18 21:59 21:59 21:59 WBC 8.1 RBC 3.31 L Hgb 10.9 L Hct 31.8 L MCV 96.0 MCH 32.8 H MCHC 34.1 RDW 14.4 Plt Count 211 MPV 8.8 Neut % (Auto) 79.2 H Lymph % (Auto) 12.2 L [place] % (Auto) 5.7 Eos % (Auto) 2.2 Baso % (Auto) 0.7 Neut # (Auto) 6.4 Lymph # (Auto) 1.0 [place] # (Auto) 0.5 Eos # (Auto) 0.2 Baso # (Auto) 0.1 PT 11.4 INR 1.0 APTT 32.1 pO2 VBG pH VBG pCO2 VBG HCO3 VBG Total CO2 VBG O2 Sat (Calc) VBG Base Excess VBG Potassium Glucose Lactate FiO2 Sodium 141 Potassium 5.1 H Chloride 104 Carbon Dioxide 33 H Anion Gap 9 L BUN 32 H Creatinine 1.6 H Est GFR ( Amer) 38 Est GFR (Non-Af Amer) 31 POC Glucose (mg/dL) Random Glucose 198 H Calcium 9.3 Total Bilirubin AST ALT Alkaline Phosphatase Troponin I < 0.0120 NT-Pro-B Natriuret Pep 986 H Total Protein Albumin Globulin Albumin/Globulin Ratio Triglycerides Cholesterol LDL Cholesterol Direct HDL Cholesterol Thyroxine (T4) TSH 3rd Generation Venous Blood Potassium Urine Color Urine Clarity Urine pH Ur Specific [place] Urine Protein Urine Glucose (UA) Urine Ketones Urine Blood Urine Nitrate Urine Bilirubin Urine Urobilinogen Ur Leukocyte Esterase Urine RBC (Auto) Urine WBC Clumps (Auto) Urine Microscopic WBC Ur Squamous Epith Cells Urine Bacteria 07/10/18 07/11/18 07/11/18 22:07 00:01 05:20 WBC RBC Hgb Hct MCV MCH MCHC RDW Plt Count MPV Neut % (Auto) Lymph % (Auto) [place] % (Auto) Eos % (Auto) Baso % (Auto) Neut # (Auto) Lymph # (Auto) [place] # (Auto) Eos # (Auto) Baso # (Auto) PT INR APTT pO2 43 VBG pH 7.35 VBG pCO2 62 H VBG HCO3 29.4 VBG Total CO2 36.1 H VBG O2 Sat (Calc) 82.3 H VBG Base Excess 6.5 H VBG Potassium 5.2 Glucose 205 H Lactate 0.8 FiO2 21.0 Sodium 139.0 Potassium Chloride 104.0 Carbon Dioxide Anion Gap BUN Creatinine Est GFR ( Amer) Est GFR (Non-Af Amer) POC Glucose (mg/dL) 256 H Random Glucose Calcium Total Bilirubin AST ALT Alkaline Phosphatase Troponin I NT-Pro-B Natriuret Pep Total Protein Albumin Globulin Albumin/Globulin Ratio Triglycerides Cholesterol LDL Cholesterol Direct HDL Cholesterol Thyroxine (T4) TSH 3rd Generation Venous Blood Potassium 5.2 Urine Color Sarah Urine Clarity Turbid Urine pH 6.0 Ur Specific [place] 1.016 Urine Protein >=500 Urine Glucose (UA) Neg Urine Ketones Negative Urine Blood Negative Urine Nitrate Negative Urine Bilirubin Negative Urine Urobilinogen 0.2-1.0 Ur Leukocyte Esterase Large Urine RBC (Auto) 33 H Urine WBC Clumps (Auto) Many H Urine Microscopic WBC 1430 H Ur Squamous Epith Cells 1 Urine Bacteria Few H 07/11/18 07/11/18 07/11/18 09:00 09:00 11:03 WBC 5.8 RBC 3.13 L Hgb 10.0 L Hct 29.9 L MCV 95.6 MCH 32.0 H MCHC 33.5 RDW 14.2 Plt Count 198 MPV Neut % (Auto) Lymph % (Auto) [place] % (Auto) Eos % (Auto) Baso % (Auto) Neut # (Auto) Lymph # (Auto) [place] # (Auto) Eos # (Auto) Baso # (Auto) PT INR APTT pO2 VBG pH VBG pCO2 VBG HCO3 VBG Total CO2 VBG O2 Sat (Calc) VBG Base Excess VBG Potassium Glucose Lactate FiO2 Sodium 142 Potassium 4.9 Chloride 108 H Carbon Dioxide 31 H Anion Gap 8 L BUN 32 H Creatinine 1.6 H Est GFR ( Amer) 38 Est GFR (Non-Af Amer) 31 POC Glucose (mg/dL) 395 H Random Glucose 234 H Calcium 8.9 Total Bilirubin 0.3 AST 36 D ALT 34 Alkaline Phosphatase 92 Troponin I < 0.0120 NT-Pro-B Natriuret Pep Total Protein 6.7 Albumin 3.1 L Globulin 3.6 Albumin/Globulin Ratio 0.9 L Triglycerides 149 Cholesterol 139 LDL Cholesterol Direct 58 HDL Cholesterol 35 Thyroxine (T4) 9.22 TSH 3rd Generation 3.17 Venous Blood Potassium Urine Color Urine Clarity Urine pH Ur Specific [place] Urine Protein Urine Glucose (UA) Urine Ketones Urine Blood Urine Nitrate Urine Bilirubin Urine Urobilinogen Ur Leukocyte Esterase Urine RBC (Auto) Urine WBC Clumps (Auto) Urine Microscopic WBC Ur Squamous Epith Cells Urine Bacteria 07/11/18 07/11/18 15:58 16:23 WBC RBC Hgb Hct MCV MCH MCHC RDW Plt Count MPV Neut % (Auto) Lymph % (Auto) [place] % (Auto) Eos % (Auto) Baso % (Auto) Neut # (Auto) Lymph # (Auto) [place] # (Auto) Eos # (Auto) Baso # (Auto) PT INR APTT pO2 VBG pH VBG pCO2 VBG HCO3 VBG Total CO2 VBG O2 Sat (Calc) VBG Base Excess VBG Potassium Glucose Lactate FiO2 Sodium Potassium Chloride Carbon Dioxide Anion Gap BUN Creatinine Est GFR ( Amer) Est GFR (Non-Af Amer) POC Glucose (mg/dL) 338 H Random Glucose Calcium Total Bilirubin AST ALT Alkaline Phosphatase Troponin I < 0.0120 NT-Pro-B Natriuret Pep Total Protein Albumin Globulin Albumin/Globulin Ratio Triglycerides Cholesterol LDL Cholesterol Direct HDL Cholesterol Thyroxine (T4) TSH 3rd Generation Venous Blood Potassium Urine Color Urine Clarity Urine pH Ur Specific [place] Urine Protein Urine Glucose (UA) Urine Ketones Urine Blood Urine Nitrate Urine Bilirubin Urine Urobilinogen Ur Leukocyte Esterase Urine RBC (Auto) Urine WBC Clumps (Auto) Urine Microscopic WBC Ur Squamous Epith Cells Urine Bacteria reviewed J.P. - EKG Data EKG comments: reviewed J.P. - Imaging and Cardiology Chest x-ray Status: Report reviewed by me (J.P.) Assessment & Plan (1) Chest pain Status: Acute Priority: High (2) UTI (urinary tract infection) Status: Acute Priority: High (3) Type 2 diabetes mellitus with hyperglycemia Status: Chronic Priority: High (4) CKD (chronic kidney disease) Status: Chronic Priority: High (5) HTN (hypertension) Status: Chronic Priority: Medium (6) CAD (coronary artery disease) Status: Chronic Priority: Medium (7) Hx of CABG Status: Chronic Priority: Medium (8) Hypercholesterolemia Status: Chronic Priority: Low (9) Chronic low back pain Status: Chronic Priority: Medium (10) Generalized weakness Status: Chronic Priority: High (11) Anxiety Status: Chronic Priority: High (12) Toxic metabolic encephalopathy Status: Acute - Assessment and Plan (Free Text) Plan: Blood C-S, U C-S, EGG, continue ASA, Coreg, Pyridium, Humalin and rest of Tx. Neurology consult appreciated. Cardiology consult. PT,OT eval. Critical care time: 45 min. - Date & Time Date: 07/11/18 Time: 13:45
--- NOTE | 2018-07-11 20:56 | CP.PCM.CON ---
History of Present Illness - History of Present Illness History of Present Illness: I was asked to see patient by Dr Oliver. The patient was seen on 07/11/18 at 1645 Patient is a 78 year old female with remote history of CAD who presents with altered mental status. The patient cannot give adequate history. By report she had chest pain although the patient is comfortable now. Review of Systems - Review of Systems Systems not reviewed;Unavailable: Altered Mental Status Past Patient History - Infectious Disease Hx of Infectious Diseases: None - Tetanus Immunizations Tetanus Immunization: Unknown - Past Medical History & Family History Past Medical History?: Yes - Past Social History Smoking Status: Never Smoked Alcohol: None Drugs: Denies Home Situation {Lives}: With Family - CARDIAC Hx Cardiac Disorders: Yes Hx Congestive Heart Failure: Yes Hx Hypercholesterolemia: Yes Hx Hypertension: Yes Hx Pacemaker: No Hx Peripheral Edema: Yes - PULMONARY Hx Respiratory Disorders: Yes Hx Asthma: Yes Hx Bronchitis: Yes Hx Chronic Obstructive Pulmonary Disease (COPD): Yes Hx Pneumonia: Yes - NEUROLOGICAL Hx Neurological Disorder: Yes Hx Dementia: Yes Hx Seizures: Yes - HEENT Hx HEENT Problems: Yes Hx Blind: Yes (left eye) Hx Difficulty Chewing: Yes (dentures) Other/Comment: Hard of hear R ear., left eye blind - RENAL Hx Chronic Kidney Disease: Yes (mild renal insufficiecy.) - ENDOCRINE/METABOLIC Hx Endocrine Disorders: Yes Hx Diabetes Mellitus Type 2: Yes Hx Hypothyroidism: Yes - HEMATOLOGICAL/ONCOLOGICAL Hx Blood Disorders: Yes Hx AIDS: No Hx Anemia: Yes Hx Human Immunodeficiency Virus (HIV): No - INTEGUMENTARY Hx Dermatological Problems: No - MUSCULOSKELETAL/RHEUMATOLOGICAL Hx Musculoskeletal Disorders: Yes Hx Back Pain: Yes Hx Falls: No - GASTROINTESTINAL Hx Gastrointestinal Disorders: Yes Hx Gastritis: Yes - GENITOURINARY/GYNECOLOGICAL Hx Genitourinary Disorders: Yes Hx Incontinence: Yes Hx Urinary Tract Infection: Yes - PSYCHIATRIC Hx Psychophysiologic Disorder: No Hx Substance Use: No - SURGICAL HISTORY Hx Surgeries: Yes Hx Cholecystectomy: Yes Hx Coronary Artery Bypass Graft: Yes (x4) Hx Coronary Stent: Yes - ANESTHESIA Hx Anesthesia: Yes Hx Anesthesia Reactions: No Hx Malignant Hyperthermia: No Meds Allergies/Adverse Reactions: Allergies Allergy/AdvReac Type Severity Reaction Status Date / Time kiwi Allergy Mild RASH Verified 07/10/18 21:01 morphine Allergy Mild RASH Verified 07/10/18 21:01 Penicillins Allergy Mild RASH Verified 07/10/18 21:01 pineapple Allergy Mild RASH Verified 07/10/18 21:01 watermelon Allergy Mild RASH Verified 07/10/18 21:01 - Medications Medications: Current Medications Alprazolam (Xanax) 0.25 mg PO Q12 PRN PRN Reason: Anxiety Stop: 07/18/18 08:59 Aspirin (Aspirin Chewable) 81 mg PO DAILY [facility] Last Admin: 07/11/18 10:08 Dose: 81 mg Atorvastatin Calcium (Lipitor) 40 mg PO HS [facility] Carvedilol (Coreg) 3.125 mg PO Q12 [facility] Last Admin: 07/11/18 10:08 Dose: 3.125 mg Ferrous Sulfate (Feosol) 325 mg PO DAILY [facility] Last Admin: 07/11/18 10:08 Dose: 325 mg Home Med (Patient's Own Medication) 10 unit SC ACBD [facility] Insulin Human Regular (Humulin R) 0 units SC ACCU-CHECK [facility]; Protocol Phenazopyridine HCl (Pyridium) 200 mg PO TID [facility] Last Admin: 07/11/18 17:02 Dose: 200 mg Ranolazine (Ranexa) 1,000 mg PO BID [facility] Last Admin: 07/11/18 17:03 Dose: 1,000 mg Physical Exam - Constitutional Appears: Chronically Ill - Head Exam Head Exam: NORMAL INSPECTION - Eye Exam Eye Exam: Normal appearance - ENT Exam ENT Exam: Mucous Membranes Moist - Neck Exam Neck exam: Positive for: Full Rom. Negative for: Lymphadenopathy, Thyromegaly - Respiratory Exam Respiratory Exam: Decreased Breath Sounds. absent: Rales - Cardiovascular Exam Cardiovascular Exam: REGULAR RHYTHM - GI/Abdominal Exam GI & Abdominal Exam: Normal Bowel Sounds - Rectal Exam Rectal Exam: Deferred - Extremities Exam Extremities exam: Negative for: pedal edema - Back Exam Back exam: NORMAL INSPECTION - Neurological Exam Neurological exam: Alert - Skin Skin Exam: Normal Color Results - Vital Signs Recent Vital Signs: Last Vital Signs Temp 98.7 F 07/11/18 19:25 Pulse 71 07/11/18 19:25 Resp 20 07/11/18 19:25 BP 111/69 07/11/18 19:25 Pulse Ox 96 07/11/18 19:25 - Labs Result Diagrams: 07/11/18 09:00 07/11/18 09:00 Labs: Laboratory Results - last 24 hr 07/10/18 07/10/18 07/10/18 21:59 21:59 21:59 WBC 8.1 RBC 3.31 L Hgb 10.9 L Hct 31.8 L MCV 96.0 MCH 32.8 H MCHC 34.1 RDW 14.4 Plt Count 211 MPV 8.8 Neut % (Auto) 79.2 H Lymph % (Auto) 12.2 L Morrison % (Auto) 5.7 Eos % (Auto) 2.2 Baso % (Auto) 0.7 Neut # (Auto) 6.4 Lymph # (Auto) 1.0 Morrison # (Auto) 0.5 Eos # (Auto) 0.2 Baso # (Auto) 0.1 PT 11.4 INR 1.0 APTT 32.1 pO2 VBG pH VBG pCO2 VBG HCO3 VBG Total CO2 VBG O2 Sat (Calc) VBG Base Excess VBG Potassium Glucose Lactate FiO2 Sodium 141 Potassium 5.1 H Chloride 104 Carbon Dioxide 33 H Anion Gap 9 L BUN 32 H Creatinine 1.6 H Est GFR ( Amer) 38 Est GFR (Non-Af Amer) 31 POC Glucose (mg/dL) Random Glucose 198 H Calcium 9.3 Total Bilirubin AST ALT Alkaline Phosphatase Troponin I < 0.0120 NT-Pro-B Natriuret Pep 986 H Total Protein Albumin Globulin Albumin/Globulin Ratio Triglycerides Cholesterol LDL Cholesterol Direct HDL Cholesterol Thyroxine (T4) TSH 3rd Generation Venous Blood Potassium Urine Color Urine Clarity Urine pH Ur Specific Buhl Urine Protein Urine Glucose (UA) Urine Ketones Urine Blood Urine Nitrate Urine Bilirubin Urine Urobilinogen Ur Leukocyte Esterase Urine RBC (Auto) Urine WBC Clumps (Auto) Urine Microscopic WBC Ur Squamous Epith Cells Urine Bacteria 07/10/18 07/11/18 07/11/18 22:07 00:01 05:20 WBC RBC Hgb Hct MCV MCH MCHC RDW Plt Count MPV Neut % (Auto) Lymph % (Auto) Morrison % (Auto) Eos % (Auto) Baso % (Auto) Neut # (Auto) Lymph # (Auto) Morrison # (Auto) Eos # (Auto) Baso # (Auto) PT INR APTT pO2 43 VBG pH 7.35 VBG pCO2 62 H VBG HCO3 29.4 VBG Total CO2 36.1 H VBG O2 Sat (Calc) 82.3 H VBG Base Excess 6.5 H VBG Potassium 5.2 Glucose 205 H Lactate 0.8 FiO2 21.0 Sodium 139.0 Potassium Chloride 104.0 Carbon Dioxide Anion Gap BUN Creatinine Est GFR ( Amer) Est GFR (Non-Af Amer) POC Glucose (mg/dL) 256 H Random Glucose Calcium Total Bilirubin AST ALT Alkaline Phosphatase Troponin I NT-Pro-B Natriuret Pep Total Protein Albumin Globulin Albumin/Globulin Ratio Triglycerides Cholesterol LDL Cholesterol Direct HDL Cholesterol Thyroxine (T4) TSH 3rd Generation Venous Blood Potassium 5.2 Urine Color Sarah Urine Clarity Turbid Urine pH 6.0 Ur Specific Buhl 1.016 Urine Protein >=500 Urine Glucose (UA) Neg Urine Ketones Negative Urine Blood Negative Urine Nitrate Negative Urine Bilirubin Negative Urine Urobilinogen 0.2-1.0 Ur Leukocyte Esterase Large Urine RBC (Auto) 33 H Urine WBC Clumps (Auto) Many H Urine Microscopic WBC 1430 H Ur Squamous Epith Cells 1 Urine Bacteria Few H 07/11/18 07/11/18 07/11/18 09:00 09:00 11:03 WBC 5.8 RBC 3.13 L Hgb 10.0 L Hct 29.9 L MCV 95.6 MCH 32.0 H MCHC 33.5 RDW 14.2 Plt Count 198 MPV Neut % (Auto) Lymph % (Auto) Morrison % (Auto) Eos % (Auto) Baso % (Auto) Neut # (Auto) Lymph # (Auto) Morrison # (Auto) Eos # (Auto) Baso # (Auto) PT INR APTT pO2 VBG pH VBG pCO2 VBG HCO3 VBG Total CO2 VBG O2 Sat (Calc) VBG Base Excess VBG Potassium Glucose Lactate FiO2 Sodium 142 Potassium 4.9 Chloride 108 H Carbon Dioxide 31 H Anion Gap 8 L BUN 32 H Creatinine 1.6 H Est GFR ( Amer) 38 Est GFR (Non-Af Amer) 31 POC Glucose (mg/dL) 395 H Random Glucose 234 H Calcium 8.9 Total Bilirubin 0.3 AST 36 D ALT 34 Alkaline Phosphatase 92 Troponin I < 0.0120 NT-Pro-B Natriuret Pep Total Protein 6.7 Albumin 3.1 L Globulin 3.6 Albumin/Globulin Ratio 0.9 L Triglycerides 149 Cholesterol 139 LDL Cholesterol Direct 58 HDL Cholesterol 35 Thyroxine (T4) 9.22 TSH 3rd Generation 3.17 Venous Blood Potassium Urine Color Urine Clarity Urine pH Ur Specific Buhl Urine Protein Urine Glucose (UA) Urine Ketones Urine Blood Urine Nitrate Urine Bilirubin Urine Urobilinogen Ur Leukocyte Esterase Urine RBC (Auto) Urine WBC Clumps (Auto) Urine Microscopic WBC Ur Squamous Epith Cells Urine Bacteria 07/11/18 07/11/18 15:58 16:23 WBC RBC Hgb Hct MCV MCH MCHC RDW Plt Count MPV Neut % (Auto) Lymph % (Auto) Morrison % (Auto) Eos % (Auto) Baso % (Auto) Neut # (Auto) Lymph # (Auto) Morrison # (Auto) Eos # (Auto) Baso # (Auto) PT INR APTT pO2 VBG pH VBG pCO2 VBG HCO3 VBG Total CO2 VBG O2 Sat (Calc) VBG Base Excess VBG Potassium Glucose Lactate FiO2 Sodium Potassium Chloride Carbon Dioxide Anion Gap BUN Creatinine Est GFR ( Amer) Est GFR (Non-Af Amer) POC Glucose (mg/dL) 338 H Random Glucose Calcium Total Bilirubin AST ALT Alkaline Phosphatase Troponin I < 0.0120 NT-Pro-B Natriuret Pep Total Protein Albumin Globulin Albumin/Globulin Ratio Triglycerides Cholesterol LDL Cholesterol Direct HDL Cholesterol Thyroxine (T4) TSH 3rd Generation Venous Blood Potassium Urine Color Urine Clarity Urine pH Ur Specific Buhl Urine Protein Urine Glucose (UA) Urine Ketones Urine Blood Urine Nitrate Urine Bilirubin Urine Urobilinogen Ur Leukocyte Esterase Urine RBC (Auto) Urine WBC Clumps (Auto) Urine Microscopic WBC Ur Squamous Epith Cells Urine Bacteria - EKG Data EKG shows normal: Sinus rhythm Assessment & Plan (1) Chronic chest pain Assessment and Plan: recommend conservative therapy. Status: Acute (2) CAD (coronary artery disease) Assessment and Plan: medical therapy with antiplatelet Status: Chronic Priority: Medium (3) HTN (hypertension) Assessment and Plan: blood pressure control Status: Chronic Priority: Medium
[2018-07-11] MEDS: Insulin Regular 100 units/ml SC SCH (23:00)
[2018-07-12] MEDS: Insulin Regular 100 units/ml SC SCH ×4 (06:14→23:03)
[2018-07-12] MEDS: HUMALIN SC SCH ×2 (07:30→17:01)
--- NOTE | 2018-07-12 09:35 | CP.PCM.CON ---
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 renal consult is requested for evaluation of increased bun/cr. pt's base line s.cr is between 1.3-2.2. pt is a poor historian, chart reviewed and histoy obtained from review of chart, pt is not in acute distress Review of Systems - Constitutional Constitutional: As Per HPI - EENT Eyes: As Per HPI Ears: As Per HPI Nose/Mouth/Throat: As Per HPI - Breasts Breasts: As Per HPI - Cardiovascular Cardiovascular: As Per HPI - Respiratory Respiratory: As Per HPI - Gastrointestinal Gastrointestinal: As Per HPI - Genitourinary Genitourinary: As Per HPI - Musculoskeletal Musculoskeletal: As Per HPI - Integumentary Integumentary: As Per HPI - Neurological Neurological: As Per HPI - Endocrine Endocrine: As Per HPI - Hematologic/Lymphatic Hematologic: As Per HPI Past Patient History - Infectious Disease Hx of Infectious Diseases: None - Tetanus Immunizations Tetanus Immunization: Unknown - Past Medical History & Family History Past Medical History?: Yes - Past Social History Smoking Status: Never Smoked Alcohol: None Drugs: Denies Home Situation {Lives}: With Family - CARDIAC Hx Cardiac Disorders: Yes Hx Congestive Heart Failure: Yes Hx Hypercholesterolemia: Yes Hx Hypertension: Yes Hx Pacemaker: No Hx Peripheral Edema: Yes - PULMONARY Hx Respiratory Disorders: Yes Hx Asthma: Yes Hx Bronchitis: Yes Hx Chronic Obstructive Pulmonary Disease (COPD): Yes Hx Pneumonia: Yes - NEUROLOGICAL Hx Neurological Disorder: Yes Hx Dementia: Yes Hx Seizures: Yes - HEENT Hx HEENT Problems: Yes Hx Blind: Yes (left eye) Hx Difficulty Chewing: Yes (dentures) Other/Comment: Hard of hear R ear., left eye blind - RENAL Hx Chronic Kidney Disease: Yes (mild renal insufficiecy.) - ENDOCRINE/METABOLIC Hx Endocrine Disorders: Yes Hx Diabetes Mellitus Type 2: Yes Hx Hypothyroidism: Yes - HEMATOLOGICAL/ONCOLOGICAL Hx Blood Disorders: Yes Hx AIDS: No Hx Anemia: Yes Hx Human Immunodeficiency Virus (HIV): No - INTEGUMENTARY Hx Dermatological Problems: No - MUSCULOSKELETAL/RHEUMATOLOGICAL Hx Musculoskeletal Disorders: Yes Hx Back Pain: Yes Hx Falls: No - GASTROINTESTINAL Hx Gastrointestinal Disorders: Yes Hx Gastritis: Yes - GENITOURINARY/GYNECOLOGICAL Hx Genitourinary Disorders: Yes Hx Incontinence: Yes Hx Urinary Tract Infection: Yes - PSYCHIATRIC Hx Psychophysiologic Disorder: No Hx Substance Use: No - SURGICAL HISTORY Hx Surgeries: Yes Hx Cholecystectomy: Yes Hx Coronary Artery Bypass Graft: Yes (x4) Hx Coronary Stent: Yes - ANESTHESIA Hx Anesthesia: Yes Hx Anesthesia Reactions: No Hx Malignant Hyperthermia: No Meds Allergies/Adverse Reactions: Allergies Allergy/AdvReac Type Severity Reaction Status Date / Time kiwi Allergy Mild RASH Verified 07/10/18 21:01 morphine Allergy Mild RASH Verified 07/10/18 21:01 Penicillins Allergy Mild RASH Verified 07/10/18 21:01 pineapple Allergy Mild RASH Verified 07/10/18 21:01 watermelon Allergy Mild RASH Verified 07/10/18 21:01 - Medications Medications: Current Medications Alprazolam (Xanax) 0.25 mg PO Q12 PRN PRN Reason: Anxiety Stop: 07/18/18 08:59 Aspirin (Aspirin Chewable) 81 mg PO DAILY [facility] Last Admin: 07/11/18 10:08 Dose: 81 mg Atorvastatin Calcium (Lipitor) 40 mg PO HS [facility] Last Admin: 07/11/18 21:51 Dose: 40 mg Carvedilol (Coreg) 3.125 mg PO Q12 [facility] Last Admin: 07/11/18 21:00 Dose: Not Given Ferrous Sulfate (Feosol) 325 mg PO DAILY [facility] Last Admin: 07/11/18 10:08 Dose: 325 mg Home Med (Patient's Own Medication) 10 unit SC ACBD [facility] Insulin Human Regular (Humulin R) 0 units SC ACCU-CHECK [facility]; Protocol Last Admin: 07/12/18 06:14 Dose: Not Given Phenazopyridine HCl (Pyridium) 200 mg PO TID [facility] Last Admin: 07/11/18 17:02 Dose: 200 mg Ranolazine (Ranexa) 1,000 mg PO BID [facility] Last Admin: 07/11/18 17:03 Dose: 1,000 mg Physical Exam - Constitutional Appears: No Acute Distress - Head Exam Head Exam: ATRAUMATIC, NORMAL INSPECTION, NORMOCEPHALIC - Eye Exam Eye Exam: EOMI, Normal appearance, PERRL Pupil Exam: NORMAL ACCOMODATION Additional comments: left eye is prosthesis - ENT Exam ENT Exam: Mucous Membranes Moist - Respiratory Exam Respiratory Exam: Clear to Auscultation Bilateral, NORMAL BREATHING PATTERN - Cardiovascular Exam Cardiovascular Exam: REGULAR RHYTHM, +S1, +S2 - GI/Abdominal Exam GI & Abdominal Exam: Normal Bowel Sounds, Soft - Rectal Exam Rectal Exam: Deferred - Neurological Exam Additional comments: alert, awake, oriented x2 Results - Vital Signs Recent Vital Signs: Last Vital Signs Temp 98.5 F 07/12/18 08:07 Pulse 78 07/12/18 08:07 Resp 18 07/12/18 08:07 BP 169/71 H 07/12/18 08:07 Pulse Ox 97 07/12/18 08:07 - Labs Result Diagrams: 07/11/18 09:00 07/11/18 09:00 Labs: Laboratory Results - last 24 hr 07/11/18 07/11/18 07/11/18 09:00 09:00 11:03 WBC 5.8 RBC 3.13 L Hgb 10.0 L Hct 29.9 L MCV 95.6 MCH 32.0 H MCHC 33.5 RDW 14.2 Plt Count 198 Sodium 142 Potassium 4.9 Chloride 108 H Carbon Dioxide 31 H Anion Gap 8 L BUN 32 H Creatinine 1.6 H Est GFR ( Amer) 38 Est GFR (Non-Af Amer) 31 POC Glucose (mg/dL) 395 H Random Glucose 234 H Calcium 8.9 Total Bilirubin 0.3 AST 36 D ALT 34 Alkaline Phosphatase 92 Troponin I < 0.0120 Total Protein 6.7 Albumin 3.1 L Globulin 3.6 Albumin/Globulin Ratio 0.9 L Triglycerides 149 Cholesterol 139 LDL Cholesterol Direct 58 HDL Cholesterol 35 Thyroxine (T4) 9.22 TSH 3rd Generation 3.17 07/11/18 07/11/18 07/11/18 15:58 16:23 22:24 WBC RBC Hgb Hct MCV MCH MCHC RDW Plt Count Sodium Potassium Chloride Carbon Dioxide Anion Gap BUN Creatinine Est GFR ( Amer) Est GFR (Non-Af Amer) POC Glucose (mg/dL) 338 H 95 Random Glucose Calcium Total Bilirubin AST ALT Alkaline Phosphatase Troponin I < 0.0120 Total Protein Albumin Globulin Albumin/Globulin Ratio Triglycerides Cholesterol LDL Cholesterol Direct HDL Cholesterol Thyroxine (T4) TSH 3rd Generation 07/12/18 00:03 WBC RBC Hgb Hct MCV MCH MCHC RDW Plt Count Sodium Potassium Chloride Carbon Dioxide Anion Gap BUN Creatinine Est GFR ( Amer) Est GFR (Non-Af Amer) POC Glucose (mg/dL) 88 Random Glucose Calcium Total Bilirubin AST ALT Alkaline Phosphatase Troponin I Total Protein Albumin Globulin Albumin/Globulin Ratio Triglycerides Cholesterol LDL Cholesterol Direct HDL Cholesterol Thyroxine (T4) TSH 3rd Generation Assessment & Plan - Assessment and Plan (Free Text) Assessment: 78yo female with htn, copd, cad, s/p[ cabg, s/p multiple stents, dm, cva, s/p left TMA, s/p cornel, left eye prosthesis, dementia, recurrent uti's, chest pain was 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 renal failure, is most likely ckd sec to HTN 2. R/o UTI 3. chest pain , r/o ACS check urine c/s, gentle iv hydration, check urine lytes, osm, cr
[2018-07-12] MEDS: Ranolazine 500 mg Extended Release Tablets PO SCH ×2 (09:50→17:02)
[2018-07-12] MEDS ORDERED: Sodium Chloride 0.45% 1,000 ML IV SCH (11:45)
--- NOTE | 2018-07-12 13:09 | CP.PCM.PN ---
Subjective - Date & Time of Evaluation Date of Evaluation: 07/12/18 Objective - Vital Signs/Intake and Output Vital Signs (last 24 hours): Temp Pulse Resp BP Pulse Ox 99 F 67 18 127/73 96 07/12/18 12:31 07/12/18 12:31 07/12/18 12:31 07/12/18 12:31 07/12/18 12:31 - Medications Medications: Current Medications Alprazolam (Xanax) 0.25 mg PO Q12 PRN PRN Reason: Anxiety Stop: 07/18/18 08:59 Aspirin (Aspirin Chewable) 81 mg PO DAILY [facility] Last Admin: 07/12/18 09:46 Dose: 81 mg Atorvastatin Calcium (Lipitor) 40 mg PO HS [facility] Last Admin: 07/11/18 21:51 Dose: 40 mg Carvedilol (Coreg) 3.125 mg PO Q12 [facility] Last Admin: 07/12/18 09:46 Dose: 3.125 mg Ferrous Sulfate (Feosol) 325 mg PO DAILY [facility] Last Admin: 07/12/18 09:46 Dose: 325 mg Home Med (Patient's Own Medication) 10 unit SC ACBD [facility] Last Admin: 07/12/18 07:30 Dose: Not Given Sodium Chloride (Sodium Chloride 0.45%) 1,000 mls @ 45 mls/hr IV .[id number] [facility] Stop: 07/13/18 11:39 Last Admin: 07/12/18 13:07 Dose: 45 mls/hr Insulin Human Regular (Humulin R) 0 units SC ACCU-CHECK [facility]; Protocol Last Admin: 07/12/18 12:00 Dose: Not Given Phenazopyridine HCl (Pyridium) 200 mg PO TID [facility] Last Admin: 07/12/18 13:08 Dose: 200 mg Ranolazine (Ranexa) 1,000 mg PO BID [facility] Last Admin: 07/12/18 09:50 Dose: 1,000 mg - Labs Labs: 07/11/18 09:00 07/11/18 09:00 PT 11.4 Seconds (9.8-13.1) 07/10/18 21:59 INR 1.0 07/10/18 21:59 APTT 32.1 Seconds (25.6-37.1) 07/10/18 21:59 - Constitutional Appears: Confused, Chronically Ill - Head Exam Head Exam: NORMAL INSPECTION - Eye Exam Eye Exam: PERRL (R eye, L eye blind) - ENT Exam Additional comments: Hard of hearing on R side - Neck Exam Neck Exam: Normal Inspection - Respiratory Exam Respiratory Exam: NORMAL BREATHING PATTERN - Cardiovascular Exam Cardiovascular Exam: REGULAR RHYTHM - GI/Abdominal Exam GI & Abdominal Exam: Soft, Normal Bowel Sounds - Extremities Exam Extremities Exam: Tenderness (R-L knee) Additional comments: L TMA - Back Exam Back Exam: tenderness (mild) - Neurological Exam Neurological Exam: Alert, CN II-XII Intact Additional comments: Confused, forgetful, LUE with some occasional rhythmic , generalized weakness. - Psychiatric Exam Psychiatric exam: Anxious - Skin Skin Exam: Normal Color, Warm Assessment and Plan (1) Chest pain Status: Acute (2) UTI (urinary tract infection) Status: Acute (3) Type 2 diabetes mellitus with hyperglycemia Status: Chronic (4) CKD (chronic kidney disease) Status: Chronic (5) HTN (hypertension) Status: Chronic (6) CAD (coronary artery disease) Status: Chronic (7) Hx of CABG Status: Chronic (8) Hypercholesterolemia Status: Chronic (9) Chronic low back pain Status: Chronic (10) Generalized weakness Status: Chronic (11) Anxiety Status: Chronic (12) Toxic metabolic encephalopathy Status: Acute
--- NOTE | 2018-07-12 16:41 | PCM.EEG ---
Electroencephalogram Report - Electroencephalogram Report Procedure Date: 07/11/18 Condition of Recording: Awake, Drowsy Medication: ASA, Alprazolam, carvedilol Interpretation: Technical Information: This was a 21 -channel EEG, 1-channel EKG routine EEG performed using an [employer] machine. Electrodes were applied using the 10/20 international placement system. EEG Detail: During active states, there was no evidence of posterior dominant rhythm , the EEG showed a diffuse monotnous 4 to 5 hz activity that showed some reactivity with stimulation. , Sleep not seen There were frequent bilateral sharp waves with triphasic morphology seen that were mainly bi frontal. Hyperventilation was not performed. Photic stimulation was performed and there were no changes on the record. Interictal activity; none Focal abnormality; none Impression: Impression: This is an abnormal EEG record that demonstrate the presence of a mild to moderate non specific diffuse disturbance of cortical activity, this is keeping with a diffuse fontana matter dysfunction, these findings re not specific. However given the presence of triphasic sharps, the main differential diagnosis is a toxic metabolic encephalopahty. Clinically correlation is required.
--- NOTE | 2018-07-12 17:12 | CP.PCM.DIS ---
Provider - Provider Date of Admission: 07/11/18 00:31 Attending physician: Sridhar Oliver MD Diagnosis - Discharge Diagnosis (1) Chest pain Status: Acute Priority: High (2) UTI (urinary tract infection) Status: Acute Priority: High (3) Type 2 diabetes mellitus with hyperglycemia Status: Chronic Priority: High (4) CKD (chronic kidney disease) Status: Chronic Priority: High (5) HTN (hypertension) Status: Chronic Priority: Medium (6) CAD (coronary artery disease) Status: Chronic Priority: Medium (7) Hx of CABG Status: Chronic Priority: Medium (8) Hypercholesterolemia Status: Chronic Priority: Low (9) Chronic low back pain Status: Chronic Priority: Medium (10) Generalized weakness Status: Chronic Priority: High (11) Anxiety Status: Chronic Priority: High (12) Toxic metabolic encephalopathy Status: Acute Hospital Course - Lab Results Lab Results: Micro Results 07/11/18 16:33 Blood Blood Culture - Preliminary NO GROWTH AFTER 24 HOURS 07/11/18 16:23 Blood Blood Culture - Preliminary NO GROWTH AFTER 24 HOURS 07/11/18 01:20 Blood Blood Culture - Preliminary NO GROWTH AFTER 24 HOURS 07/11/18 00:56 Blood Blood Culture - Preliminary NO GROWTH AFTER 24 HOURS Most Recent Lab Values WBC 5.8 K/uL (4.8-10.8) 07/11/18 09:00 RBC 3.13 Mil/uL (3.80-5.20) L 07/11/18 09:00 Hgb 10.0 g/dL (12.0-16.0) L 07/11/18 09:00 Hct 29.9 % (34.0-47.0) L 07/11/18 09:00 MCV 95.6 fl (81.0-99.0) 07/11/18 09:00 MCH 32.0 pg (27.0-31.0) H 07/11/18 09:00 MCHC 33.5 g/dL (33.0-37.0) 07/11/18 09:00 RDW 14.2 % (11.5-14.5) 07/11/18 09:00 Plt Count 198 K/uL (130-400) 07/11/18 09:00 MPV 8.8 fl (7.2-11.7) 07/10/18 21:59 Neut % (Auto) 79.2 % (50.0-75.0) H 07/10/18 21:59 Lymph % (Auto) 12.2 % (20.0-40.0) L 07/10/18 21:59 [place] % (Auto) 5.7 % (0.0-10.0) 07/10/18 21:59 Eos % (Auto) 2.2 % (0.0-4.0) 07/10/18 21:59 Baso % (Auto) 0.7 % (0.0-2.0) 07/10/18 21:59 Neut # (Auto) 6.4 K/uL (1.8-7.0) 07/10/18 21:59 Lymph # (Auto) 1.0 K/uL (1.0-4.3) 07/10/18 21:59 [place] # (Auto) 0.5 K/uL (0.0-0.8) 07/10/18 21:59 Eos # (Auto) 0.2 K/uL (0.0-0.7) 07/10/18 21:59 Baso # (Auto) 0.1 K/uL (0.0-0.2) 07/10/18 21:59 PT 11.4 Seconds (9.8-13.1) 07/10/18 21:59 INR 1.0 07/10/18 21:59 APTT 32.1 Seconds (25.6-37.1) 07/10/18 21:59 pO2 43 mm/Hg (30-55) 07/10/18 22:07 VBG pH 7.35 (7.32-7.43) 07/10/18 22:07 VBG pCO2 62 mmHg (40-60) H 07/10/18 22:07 VBG HCO3 29.4 mmol/L 07/10/18 22:07 VBG Total CO2 36.1 mmol/L (22-28) H 07/10/18 22:07 VBG O2 Sat (Calc) 82.3 % (40-65) H 07/10/18 22:07 VBG Base Excess 6.5 mmol/L (0.0-2.0) H 07/10/18 22:07 VBG Potassium 5.2 mmol/L (3.6-5.2) 07/10/18 22:07 Sodium 139.0 mmol/L (132-148) 07/10/18 22:07 Chloride 104.0 mmol/L (98-107) 07/10/18 22:07 Glucose 205 mg/dL (65-105) H 07/10/18 22:07 Lactate 0.8 mmol/L (0.7-2.1) 07/10/18 22:07 FiO2 21.0 % 07/10/18 22:07 Sodium 142 mmol/l (132-148) 07/11/18 09:00 Potassium 4.9 MMOL/L (3.6-5.0) 07/11/18 09:00 Chloride 108 mmol/L (98-107) H 07/11/18 09:00 Carbon Dioxide 31 mmol/L (22-30) H 07/11/18 09:00 Anion Gap 8 (10-20) L 07/11/18 09:00 BUN 32 mg/dl (7-17) H 07/11/18 09:00 Creatinine 1.6 mg/dl (0.7-1.2) H 07/11/18 09:00 Est GFR ( Amer) 38 07/11/18 09:00 Est GFR (Non-Af Amer) 31 07/11/18 09:00 POC Glucose (mg/dL) 273 mg/dL (65-110) H 07/12/18 16:04 Random Glucose 234 mg/dL (65-105) H 07/11/18 09:00 Calcium 8.9 mg/dL (8.4-10.2) 07/11/18 09:00 Total Bilirubin 0.3 mg/dl (0.2-1.3) 07/11/18 09:00 AST 36 U/L (14-36) D 07/11/18 09:00 ALT 34 U/L (9-52) 07/11/18 09:00 Alkaline Phosphatase 92 U/L (38-126) 07/11/18 09:00 Troponin I < 0.0120 ng/mL (0.00-0.120) 07/11/18 16:23 NT-Pro-B Natriuret Pep 986 pg/ml (0-900) H 07/10/18 21:59 Total Protein 6.7 G/DL (6.3-8.2) 07/11/18 09:00 Albumin 3.1 g/dL (3.5-5.0) L 07/11/18 09:00 Globulin 3.6 gm/dL (2.2-3.9) 07/11/18 09:00 Albumin/Globulin Ratio 0.9 (1.0-2.1) L 07/11/18 09:00 Triglycerides 149 mg/DL (0-149) 07/11/18 09:00 Cholesterol 139 mg/dL (0-199) 07/11/18 09:00 LDL Cholesterol Direct 58 mg/dL (0-129) 07/11/18 09:00 HDL Cholesterol 35 MG/DL (30-70) 07/11/18 09:00 Thyroxine (T4) 9.22 ug/dl (5.5-11.0) 07/11/18 09:00 TSH 3rd Generation 3.17 mIU/ML (0.46-4.68) 07/11/18 09:00 Venous Blood Potassium 5.2 mmol/L (3.6-5.2) 07/10/18 22:07 Urine Color Sarah (YELLOW) 07/11/18 00:01 Urine Clarity Turbid (Clear) 07/11/18 00:01 Urine pH 6.0 (5.0-8.0) 07/11/18 00:01 Ur Specific [place] 1.016 (1.003-1.030) 07/11/18 00:01 Urine Protein >=500 mg/dL (NEGATIVE) 07/11/18 00:01 Urine Glucose (UA) Neg mg/dL (Normal) 07/11/18 00:01 Urine Ketones Negative mg/dL (NEGATIVE) 07/11/18 00:01 Urine Blood Negative (NEGATIVE) 07/11/18 00:01 Urine Nitrate Negative (NEGATIVE) 07/11/18 00:01 Urine Bilirubin Negative (NEGATIVE) 07/11/18 00:01 Urine Urobilinogen 0.2-1.0 mg/dL (0.2-1.0) 07/11/18 00:01 Ur Leukocyte Esterase Large [place]/uL (Negative) 07/11/18 00:01 Urine RBC (Auto) 33 /hpf (0-3) H 07/11/18 00:01 Urine WBC Clumps (Auto) Many /hpf (NONE) H 07/11/18 00:01 Urine Microscopic WBC 1430 /hpf (0-5) H 07/11/18 00:01 Ur Squamous Epith Cells 1 /hpf (0-5) 07/11/18 00:01 Urine Bacteria Few (<OCC) H 07/11/18 00:01 Discharge Exam - Head Exam Head Exam: NORMAL INSPECTION Discharge Plan - Follow Up Plan Condition: FAIR Disposition: HOME/ ROUTINE
--- NOTE | 2018-07-12 20:24 | CP.PCM.PN ---
Subjective - Date & Time of Evaluation Date of Evaluation: 07/12/18 Time of Evaluation: 11:35 - Subjective Subjective: F/U CP Pt awake, no A/D, no CP. Objective - Vital Signs/Intake and Output Vital Signs (last 24 hours): Temp Pulse Resp BP Pulse Ox 98.3 F 76 18 119/60 97 07/12/18 19:51 07/12/18 19:51 07/12/18 19:51 07/12/18 19:51 07/12/18 19:51 - Medications Medications: Current Medications Alprazolam (Xanax) 0.25 mg PO Q12 PRN PRN Reason: Anxiety Stop: 07/18/18 08:59 Aspirin (Aspirin Chewable) 81 mg PO DAILY [facility] Last Admin: 07/12/18 09:46 Dose: 81 mg Atorvastatin Calcium (Lipitor) 40 mg PO HS [facility] Last Admin: 07/11/18 21:51 Dose: 40 mg Carvedilol (Coreg) 3.125 mg PO Q12 [facility] Last Admin: 07/12/18 09:46 Dose: 3.125 mg Ferrous Sulfate (Feosol) 325 mg PO DAILY [facility] Last Admin: 07/12/18 09:46 Dose: 325 mg Home Med (Patient's Own Medication) 10 unit SC ACBD [facility] Last Admin: 07/12/18 17:01 Dose: Not Given Sodium Chloride (Sodium Chloride 0.45%) 1,000 mls @ 45 mls/hr IV .[id number] [facility] Stop: 07/13/18 11:39 Last Admin: 07/12/18 13:07 Dose: 45 mls/hr Insulin Human Regular (Humulin R) 0 units SC ACCU-CHECK [facility]; Protocol Last Admin: 07/12/18 18:24 Dose: 2 units Phenazopyridine HCl (Pyridium) 200 mg PO TID [facility] Last Admin: 07/12/18 17:01 Dose: 200 mg Ranolazine (Ranexa) 1,000 mg PO BID [facility] Last Admin: 07/12/18 17:02 Dose: 1,000 mg - Labs Labs: 07/11/18 09:00 07/11/18 09:00 PT 11.4 Seconds (9.8-13.1) 07/10/18 21:59 INR 1.0 07/10/18 21:59 APTT 32.1 Seconds (25.6-37.1) 07/10/18 21:59 - Constitutional Appears: Confused - Head Exam Head Exam: NORMAL INSPECTION - Eye Exam Eye Exam: PERRL (R eye, L eye blind) - ENT Exam Additional comments: Hard of hearing R side - Neck Exam Neck Exam: Normal Inspection - Respiratory Exam Respiratory Exam: NORMAL BREATHING PATTERN - Cardiovascular Exam Cardiovascular Exam: REGULAR RHYTHM - GI/Abdominal Exam GI & Abdominal Exam: Soft, Normal Bowel Sounds - Extremities Exam Extremities Exam: Tenderness (R-L knee) Additional comments: L TMA - Back Exam Back Exam: tenderness (mild) - Neurological Exam Neurological Exam: Alert, CN II-XII Intact Additional comments: Confused, forgetful, LUE some occasional rhythmic. generalized weakness. - Psychiatric Exam Psychiatric exam: Anxious - Skin Skin Exam: Normal Color, Warm Assessment and Plan (1) Chest pain Status: Acute (2) UTI (urinary tract infection) Status: Acute (3) Type 2 diabetes mellitus with hyperglycemia Status: Chronic (4) CKD (chronic kidney disease) Status: Chronic (5) HTN (hypertension) Status: Chronic (6) CAD (coronary artery disease) Status: Chronic (7) Hx of CABG Status: Chronic (8) Hypercholesterolemia Status: Chronic (9) Chronic low back pain Status: Chronic (10) Generalized weakness Status: Chronic (11) Anxiety Status: Chronic (12) Toxic metabolic encephalopathy Status: Acute - Assessment and Plan (Free Text) Plan: Continue Pyridium, Ranexa, Coreg, ASA, Lipitor, Humalin and rest of Tx. Critical care time: 32 min.
[2018-07-13 05:37] LABS: CALCIUM 8.7 mg/dL (8.4-10.2)
[2018-07-13] MEDS: Insulin Regular 100 units/ml SC SCH ×5 (06:30→23:36)
[2018-07-13] MEDS ORDERED: Dextrose 50% SYRINGE Inj (50 ml) IVP ONE (07:19)
[2018-07-13] MEDS ORDERED: Insulin Regular 100 units/ml SC ONE (07:20)
[2018-07-13] MEDS ORDERED: Calcium Gluconate 4.65 mEq/10 ml Inj IV ONE (07:21)
[2018-07-13] MEDS ORDERED: Sodium Chloride 0.9% 1,000 ML IV SCH ×3 (07:30→14:45)
[2018-07-13] MEDS ORDERED: Chlorhexidine Gluconate 1 APPL/PKT TP ONE (07:40)
[2018-07-13] MEDS ORDERED: Povidone Iodine Topical 10% Sol ONE (07:45)
--- NOTE | 2018-07-13 08:08 | PCM.PROC ---
Procedures Attestation:: I certify that I have explained the specified Operation(s) or Procedure(s), risks, benefits and reasonable alternatives to the Patient and/or other person responsible. The opportunity was given to ask questions and all questions answered - Intubation Time Out Performed: No Sedative: None Laryngoscope: Pattie ET Tube Size: 7.5 ET Tube Uncuffed: No ET Tube Secured Locarion: Teeth ET Tube Placement Confirmation: Visualized Passing Through Cords, Breath Sounds Equal Bilaterally, Confirmation w/Capnometry Patient Tolerated Procedure: Well Procedure Immediate Complications: None
[2018-07-13 08:46] LABS: ABG ALLEN TEST YES; ARTERIAL BLOOD GAS HCO3 28.8 mmol/L (21-28); ARTERIAL BLOOD GAS PCO2 41 mm/Hg (35-45); ARTERIAL BLOOD GAS PH 7.46 (7.35-7.45); ARTERIAL BLOOD GAS PO2 382 mm/Hg (80-100); ARTERIAL BLOOD GAS TCO2 30.5 mmol/L (22-28)
[2018-07-13 08:48] LABS: BASO % 0.2 % (0.0-2.0); EOS # 0.1 K/uL (0.0-0.7); EOS % 0.5 % (0.0-4.0); HEMOGLOBIN 8.7 g/dL (12.0-16.0); LYMPH # 0.7 K/uL (1.0-4.3); LYMPH % 5.8 % (20.0-40.0); MEAN CELL VOLUME 97.3 fl (81.0-99.0); MEAN CORPUSCULAR HEMOGLOBIN 32.7 pg (27.0-31.0); MEAN CORPUSCULAR HGB CONC 33.6 g/dL (33.0-37.0); MEAN PLATELET VOLUME 8.7 fl (7.2-11.7); MONO # 0.6 K/uL (0.0-0.8); MONO % 5.1 % (0.0-10.0); NEUT # 10.2 K/uL (1.8-7.0); NEUT % 88.4 % (50.0-75.0); PLATELET COUNT 157 K/uL (130-400); RBC 2.66 Mil/uL (3.80-5.20); RED CELL DISTRIBUTION WIDTH 14.1 % (11.5-14.5); WHITE BLOOD COUNT 11.5 K/uL (4.8-10.8)
[2018-07-13 08:52] LABS: HEMOGLOBIN 9.2 g/dL (12.0-16.0); MEAN CELL VOLUME 97.4 fl (81.0-99.0); MEAN CORPUSCULAR HEMOGLOBIN 32.4 pg (27.0-31.0); RBC 2.83 Mil/uL (3.80-5.20); WHITE BLOOD COUNT 14.8 K/uL (4.8-10.8)
[2018-07-13 08:53] LABS: MEAN CORPUSCULAR HGB CONC 33.3 g/dL (33.0-37.0); RED CELL DISTRIBUTION WIDTH 14.4 % (11.5-14.5)
--- NOTE | 2018-07-13 08:57 | CP.CCUPN ---
CCU Subjective - Physician Review Subjective (Free Text): Makayla TUCKER Note: Code called after patient found unresponsive by Nurse at 7:08 AM, had been seen 5 minutes earlier by Nurse in [facility]. Telemetry showed progressive bradycardia down to HR 30s associated with absent pulses. CPR/ACLS started immediately, high quality chest compressions ensured and maintained. Atropine 0.5mg IVP given in succession, with marginal effect with HR up to the 40s manifest by intermittent sinus activity with wide QRS complexes. Very brief period of asystole noted and treated with Epinephrine 1 mg x 1. Review of labs this AM showed K=5.4 and treatment for hyperkalemia rendered with IV CA Gluconate, D50W, Humulin Insulin and IV NaBicarbonate. Rhythm and ROSC restored to a wide QRS complex SVT at 130 with palpable carotid pulses. Patient subsequently orally intubated by Dr. Hay (Code truck driver teamster) and noted copious yellowish fluid and secretions aspirated via ETT from lung. TLC placed via R femoral vein by Resident Dr. Estrella (Code truck driver teamster). Patient is comatose post resuscitation, discussed with family members: daughter and son ( via Sign-interpretation for the hearing-impaired as provided by the patients daughter). Further history by daughter reveals that patient admitted for chest discomfort yesterday and vomited 3 times overnight, and last episode resulted in mild difficulty in breathing. Patient placed on MV support, AC 12, 500ml TV and 100% oxygen, ABG pending, approx. 1000ml NSS given as fluid challenge. BP 127/74, HR 82 in sinus rhythm at time of transfer to ICU post-Code from 4N. Will start Therapeutic Hypothermia.
[2018-07-13 09:18] LABS: BANDS 6 % (0-2); BASOPHIL 1 % (0-2); LYMPHOCYTE 4 % (20-50); MONOCYTE 3 % (0-10); NEUTROPHIL 86 % (42-75); TOTAL CELLS COUNTED 100
[2018-07-13 09:20] LABS: PLATELET ESTIMATE NORMAL (NORMAL)
[2018-07-13 09:24] LABS: ALB/GLOB RATIO 0.8 (1.0-2.1); ALBUMIN 2.8 g/dL (3.5-5.0); ALT/SGPT 218 U/L (9-52); AST/SGOT 381 U/L (14-36); BLOOD UREA NITROGEN 32 mg/dl (7-17); CALCIUM 9.8 mg/dL (8.4-10.2); GFR NON-AFRICAN AMERICAN 27
--- NOTE | 2018-07-13 09:25 | PCM.PROC ---
Procedures Attestation:: I certify that I have explained the specified Operation(s) or Procedure(s), risks, benefits and reasonable alternatives to the Patient and/or other person responsible. The opportunity was given to ask questions and all questions answered - Central Line Placement Right Femoral Triple Lumen Catheter Aseptic technique was employed throughout the procedure: Hand Hygiene done prior to procedure, Full sterile barriers (mask, hair cover, sterile gown, sterile gloves), Full body sterile drape, Chloraprep Antiseptic: 2 minute prep for Femoral CVP Time Out Performed: No Pt. Placed on Pulse Ox Monitor: Yes Central Line Prep: Chlorhexidine-Alcohol Combination Ultrasound Used for Placement: Yes Central Line Lumen Inserted: triple Central Line Length: 20 cm Post Procedure: Sutured in Place, Good Blood Return, All Ports Aspirated, Flushed, Capped, Sterile Dressing Applied Secured by: Suture Post procedure dressing: Clear vapor permeable, Chlorhexidine disc (Biopatch) Post Procedure X-Ray: No Patient Tolerated Procedure: Well Immediate Complications: None
[2018-07-13 10:41] LABS: INR 1.1; PROTHROMBIN TIME 12.3 Seconds (9.8-13.1)
[2018-07-13 10:44] LABS: PARTIAL THROMBOPLASTIN TIME 31.2 Seconds (25.6-37.1)
--- NOTE | 2018-07-13 10:50 | RAD ---
Date of service: 07/13/2018 HISTORY: unresponsive,PEA COMPARISON: 07/10/2018. FINDINGS: Endotracheal tube terminates 1.5 cm proximal to the fly. The nasogastric tube terminates at the GE junction. LUNGS: The lungs are well inflated. There is linear atelectasis/scarring in the lower lobes. No focal consolidation. PLEURA: No pleural effusions or pneumothorax. CARDIOVASCULAR: The heart is normal in size. Atherosclerotic aortic arch calcifications are present. Status post CABG. OSSEOUS STRUCTURES: Within normal limits for the patient's age. VISUALIZED UPPER ABDOMEN: Normal. OTHER FINDINGS: None. IMPRESSION: No acute findings. Endotracheal tube terminates 1.5 cm proximal to the fly. The nasogastric tube terminates at the GE junction.
[2018-07-13] MEDS ORDERED: Acetaminophen 650mg/20.3ml solution UD NG PRN (11:03)
[2018-07-13] MEDS: Ranolazine 500 mg Extended Release Tablets PO SCH (11:23)
[2018-07-13] MEDS: Piperacillin/Tazobact 3.375 GM in Sodium Chloride 0.9% 100 ML IVPB SCH ×3 (11:24→22:12)
--- NOTE | 2018-07-13 11:41 | CARD ---
APPROVED REPORT Date of service: 07/13/2018 EKG Measurement Heart [id number] <Conclusion> Possible ventricular tachycardia. Cannot rule out anterolateral infarct, possibly acute ACUTE UT / STEMI Abnormal ECG
[2018-07-13] MEDS ORDERED: Propofol 10 mg/ml 1,000 MG/100 ML VIAL ONE (12:18)
--- NOTE | 2018-07-13 12:24 | CP.CCUPN ---
CCU Subjective - Physician Review Subjective (Free Text): 78 F with h/o DM II, HTN, CKD, CVA, admitted yesterday to Telemetry for ACS, initial Trops were negative. Family reports multiple episodes overnight of vomiting, and found unresponsive and pulseless associated with bradycardia no telemetry monitoring. Code Blue resuscitation performed and AROSC achieved after approx. 35 minutes. Orally intubated now on MV, SBP 120-130s, HR tachycardic at the time of ROSC, now down to 80s in sinus rhythm with PVCs. She is comatose and presently undergoing TTM. Family members at the bedside, report she is following some simple commands, but this has not been consistently and reliably demonstrated by medical staff. Other vitals and I/O's reviewed. No fever spikes last 24H, approx. 4900 ml urine output overnight. Breathing 12 / 12 on AC mode. SPo2 100% on 100% oxygen ROS: No other pertinent negs or positives on 10+ system review- unobtainable due to coma Drug Allergies: Morphine, Pen, Home meds: Xanax, ASA, Lipitor, Coreg, Aspar insulin, Lispro insulin, Synthroid, Claritin, Ranexa PMSFH: All other Nursing and physician documentation reviewed to date; no new pertinent info noted relevant to current medical problems. EXAM- HEENT: no icterus, no gaze preference, Pupil 3 mm and nonreactive on R, artificial eye on L +gag on ETT suctioning. NECK: No JVD visible, supple, carotids equal upstroke bilat/no bruit CHEST: clear bilateral BS , no wheezes audible HEART: regular, distant, tachy S1S2, no rubs ABD: softly and nontender, no guarding, no organomegaly, BS hypoactive. Cellulitic area over R sided abdominal wall persists with erythema and increased warmth. EXT: +1 edema, no calf tenderness or palpable cords, distal pulses intact and symmetrical. R femoral vein TLC. TMA on Left. NEURO: minimal tone, minor withdrawal of limbs to deep pain. SKIN: no rashes, warm and dry LABS: WBC= 11.5 HGB= 8.7 PLTs= 157K Coags: normal 7.46/41/282 Lactate= 1.9 Na= 158 K= 5.1 CL= 103 HCO3= 31 BUN/Cr= 32/1.8 BS= 366 Phos 4.2 Mag 2.3 CXR: ETT position OK above fly, minor Left hilar interstitial changes, no gross consolidation (my interp) EKG: (yesterday) Sinus 68/min with LAD, compared to post_Code showing sinus tachy 109/min with wide QRS, and ST elevation changes inferiorly and anteroriorly. IMPRESSION / MAJOR PROBLEMS NOW: 1. S/p Resuscitation from PEA / Timoteo-Arrest, 2 AMI/ ischemic cardiomyopathy 2. Acute Hypoxemic Resp Failure 2 Vomiting an Aspiration pneumonitis 3. Post resuscitation Anoxic Encephalopathy 4. Hyperkalemia and CKD 5. Uncontrolled DM II 6. Acute on Chronic disease Anemia: no evidence of GI Blood or acute blood los s. PLAN: 1. TTM for now at 32-36C over next 24H. Keep MAP above 80 during this time, presently self-maintained now without need for vasopressors yet. IVFs and fluid challenges ongoing. 2. MV support, lower fio2 to 50%, follow serial Lactates. 3. Sputum Cx, empiric abx coverage for the Lung, as well as coverage for E. Coli in urine. 4. Repeat serial EKGs / Trops, ECHO. Discussed with Interventional Cardio. 5. Neurology eval as per PMD. 6. Watch K levels, may need Kayexalate. 7. No Advance Directives, remains full Code status. Time spent with this patient did not overlap with any other provider's medical or critical care time. Additionally the code selected for the services rendered in this note includes the time spent: talking to the patients family, assoc iated physicians and reviewing hospital data/results not listed here which extended to a total of 50 minutes of critical care.
[2018-07-13] MEDS: Propofol 10 mg/ml 1,000 MG/100 ML VIAL IV SCH (12:31)
--- NOTE | 2018-07-13 13:39 | CP.PCM.CON ---
History of Present Illness - History of Present Illness History of Present Illness: Consultation for evaluation of chest pain and MS changes HPI: Jennifer is a 78-year-old female with history of dementia hypertension CAD status post CABG in 2007 at [facility] who was admitted for evaluation of symptoms of mental status changes accompanied with intermittent bouts of chest pain. Patient's family requested me to evaluate the patient she was last seen by me in August she is followed by her regular radiography technician Dr. Beckett who was partner Dr. Tony had done the cardiac catheterization back on September 03 at [facility] which showed patent MASSEY to LAD and patent SVG graft to PLV lumbee vessels were diffusely diseased. Overnight she was noted to have recurrent bouts of emesis became bradycardic and unresponsive requiring CPR and intubation and was transferred over to the ICU her troponin and today's lab work is essentially shows is unremarkable he is intubated nonresponsive and now on low-dose of Levophed. Pt had bradycardic arrest and PEA with ROSC after 35 mins. EKG done last night shows V-tach not reported though. Review of Systems - Review of Systems Systems not reviewed;Unavailable: Acuity of Condition - Constitutional Constitutional: As Per HPI - EENT Eyes: As Per HPI Ears: As Per HPI - Breasts Breasts: As Per HPI - Cardiovascular Cardiovascular: As Per HPI - Respiratory Respiratory: As Per HPI - Gastrointestinal Gastrointestinal: As Per HPI - Genitourinary Genitourinary: As Per HPI - Reproductive: Female Reproductive:Female: As Per HPI - Menstruation Menstruation: As Per HPI - Musculoskeletal Musculoskeletal: As Per HPI - Integumentary Integumentary: As Per HPI - Neurological Neurological: As Per HPI - Psychiatric Psychiatric: As Per HPI - Endocrine Endocrine: As Per HPI - Hematologic/Lymphatic Hematologic: As Per HPI Past Patient History - Infectious Disease Hx of Infectious Diseases: None - Tetanus Immunizations Tetanus Immunization: Unknown - Past Medical History & Family History Past Medical History?: Yes - Past Social History Smoking Status: Never Smoked Alcohol: None Drugs: Denies Home Situation {Lives}: With Family - CARDIAC Hx Cardiac Disorders: Yes Hx Congestive Heart Failure: Yes Hx Hypercholesterolemia: Yes Hx Hypertension: Yes Hx Pacemaker: No Hx Peripheral Edema: Yes - PULMONARY Hx Respiratory Disorders: Yes Hx Asthma: Yes Hx Bronchitis: Yes Hx Chronic Obstructive Pulmonary Disease (COPD): Yes Hx Pneumonia: Yes - NEUROLOGICAL Hx Neurological Disorder: Yes Hx Dementia: Yes Hx Seizures: Yes - HEENT Hx HEENT Problems: Yes Hx Blind: Yes (left eye) Hx Difficulty Chewing: Yes (dentures) Other/Comment: Hard of hear R ear., left eye blind - RENAL Hx Chronic Kidney Disease: Yes (mild renal insufficiecy.) - ENDOCRINE/METABOLIC Hx Endocrine Disorders: Yes Hx Diabetes Mellitus Type 2: Yes Hx Hypothyroidism: Yes - HEMATOLOGICAL/ONCOLOGICAL Hx Blood Disorders: Yes Hx AIDS: No Hx Anemia: Yes Hx Human Immunodeficiency Virus (HIV): No - INTEGUMENTARY Hx Dermatological Problems: No - MUSCULOSKELETAL/RHEUMATOLOGICAL Hx Musculoskeletal Disorders: Yes Hx Back Pain: Yes Hx Falls: No - GASTROINTESTINAL Hx Gastrointestinal Disorders: Yes Hx Gastritis: Yes - GENITOURINARY/GYNECOLOGICAL Hx Genitourinary Disorders: Yes Hx Incontinence: Yes Hx Urinary Tract Infection: Yes - PSYCHIATRIC Hx Psychophysiologic Disorder: No Hx Substance Use: No - SURGICAL HISTORY Hx Surgeries: Yes Hx Cholecystectomy: Yes Hx Coronary Artery Bypass Graft: Yes (x4) Hx Coronary Stent: Yes - ANESTHESIA Hx Anesthesia: Yes Hx Anesthesia Reactions: No Hx Malignant Hyperthermia: No Meds Allergies/Adverse Reactions: Allergies Allergy/AdvReac Type Severity Reaction Status Date / Time kiwi Allergy Mild RASH Verified 07/10/18 21:01 morphine Allergy Mild RASH Verified 07/10/18 21:01 Penicillins Allergy Mild RASH Verified 07/10/18 21:01 pineapple Allergy Mild RASH Verified 07/10/18 21:01 watermelon Allergy Mild RASH Verified 07/10/18 21:01 - Medications Medications: Current Medications Acetaminophen (Tylenol 650mg/20.3ml Solution Ud) 975 mg NG Q6 PRN PRN Reason: Rigors Alprazolam (Xanax) 0.25 mg PO Q12 PRN PRN Reason: Anxiety Stop: 07/18/18 08:59 Aspirin (Aspirin Chewable) 81 mg NG DAILY [facility] Atorvastatin Calcium (Lipitor) 40 mg PO HS [facility] Last Admin: 07/12/18 21:23 Dose: 40 mg Carvedilol (Coreg) 3.125 mg PO Q12 [facility] Last Admin: 07/13/18 11:20 Dose: Not Given Ferrous Sulfate (Feosol) 325 mg PO DAILY [facility] Last Admin: 07/13/18 11:20 Dose: Not Given Home Med (Patient's Own Medication) 10 unit SC ACBD [facility] Last Admin: 07/12/18 17:01 Dose: Not Given Piperacillin Sod/Tazobactam (Sod 3.375 gm/ Sodium Chloride) 100 mls @ 100 mls/hr IVPB Q6 [facility]; Protocol Last Admin: 07/13/18 11:24 Dose: 100 mls/hr Propofol (Diprivan) 1,000 mg in 100 mls @ 2.545 mls/hr IV .Q24H [facility]; Protocol Stop: 07/14/18 12:16 Last Admin: 07/13/18 12:31 Dose: 5 mcg/kg/min, 2.545 mls/hr Sodium Chloride (Sodium Chloride 0.9%) 1,000 mls @ 100 mls/hr IV .Q10H [facility] Stop: 07/14/18 12:40 Insulin Human Regular (Humulin R) 0 units SC ACCU-CHECK [facility]; Protocol Last Admin: 07/13/18 11:21 Dose: 4 units Ondansetron HCl (Zofran Inj) 4 mg IVP Q4 PRN PRN Reason: Nausea/Vomiting Last Admin: 07/12/18 23:31 Dose: 4 mg Pantoprazole Sodium (Protonix Inj) 40 mg IVP DAILY [facility] Last Admin: 07/13/18 12:34 Dose: 40 mg Phenazopyridine HCl (Pyridium) 200 mg PO TID [facility] Last Admin: 07/13/18 11:23 Dose: Not Given Ranolazine (Ranexa) 1,000 mg PO BID [facility] Last Admin: 07/13/18 11:23 Dose: Not Given Physical Exam - Constitutional Appears: Toxic - Head Exam Head Exam: ATRAUMATIC, NORMOCEPHALIC - Eye Exam Pupil Exam: Unequal - ENT Exam ENT Exam: Mucous Membranes Dry, Normal Oropharynx Additional comments: ETT in place - Neck Exam Neck exam: Positive for: Normal Inspection - Respiratory Exam Respiratory Exam: Rales, Rhonchi - Cardiovascular Exam Cardiovascular Exam: REGULAR RHYTHM, +S1, +S2, Systolic Murmur - GI/Abdominal Exam GI & Abdominal Exam: Soft Results - Vital Signs Recent Vital Signs: Last Vital Signs Temp 94.7 F L 07/13/18 12:00 Pulse 80 07/13/18 12:00 Resp 47 H 07/13/18 12:00 BP 115/74 07/13/18 12:00 Pulse Ox 100 07/13/18 12:00 - Labs Result Diagrams: 07/13/18 08:45 07/13/18 08:45 Labs: Laboratory Results - last 24 hr 07/12/18 07/12/18 07/13/18 16:04 21:27 04:20 WBC 14.8 H D RBC 2.83 L Hgb 9.2 L Hct 27.6 L MCV 97.4 MCH 32.4 H MCHC 33.3 RDW 14.4 Plt Count 161 MPV Neut % (Auto) Lymph % (Auto) [place] % (Auto) Eos % (Auto) Baso % (Auto) Neut # (Auto) Lymph # (Auto) [place] # (Auto) Eos # (Auto) Baso # (Auto) Neutrophils % (Manual) Band Neutrophils % Lymphocytes % (Manual) Monocytes % (Manual) Basophils % (Manual) Platelet Estimate PT INR APTT pCO2 pO2 HCO3 ABG pH ABG Total CO2 ABG O2 Saturation ABG Base Excess August Test ABG Potassium A-a O2 Difference Glucose Lactate Vent Mode Mechanical Rate FiO2 Tidal Volume PEEP Sodium Potassium Chloride Carbon Dioxide Anion Gap BUN Creatinine Est GFR ( Amer) Est GFR (Non-Af Amer) POC Glucose (mg/dL) 273 H 196 H Random Glucose Calcium Phosphorus Magnesium Total Bilirubin AST ALT Alkaline Phosphatase Troponin I Total Protein Albumin Globulin Albumin/Globulin Ratio Arterial Blood Potassium 07/13/18 07/13/18 07/13/18 04:20 04:49 07:17 WBC RBC Hgb Hct MCV MCH MCHC RDW Plt Count MPV Neut % (Auto) Lymph % (Auto) [place] % (Auto) Eos % (Auto) Baso % (Auto) Neut # (Auto) Lymph # (Auto) [place] # (Auto) Eos # (Auto) Baso # (Auto) Neutrophils % (Manual) Band Neutrophils % Lymphocytes % (Manual) Monocytes % (Manual) Basophils % (Manual) Platelet Estimate PT INR APTT pCO2 pO2 HCO3 ABG pH ABG Total CO2 ABG O2 Saturation ABG Base Excess August Test ABG Potassium A-a O2 Difference Glucose Lactate Vent Mode Mechanical Rate FiO2 Tidal Volume PEEP Sodium 137 Potassium 5.4 H Chloride 103 Carbon Dioxide 30 Anion Gap 9 L BUN 33 H Creatinine 1.8 H Est GFR ( Amer) 33 Est GFR (Non-Af Amer) 27 POC Glucose (mg/dL) 195 H 238 H Random Glucose 165 H Calcium 8.7 Phosphorus Magnesium Total Bilirubin AST ALT Alkaline Phosphatase Troponin I Total Protein Albumin Globulin Albumin/Globulin Ratio Arterial Blood Potassium 07/13/18 07/13/18 07/13/18 08:42 08:45 08:45 WBC 11.5 H D RBC 2.66 L Hgb 8.7 L Hct 25.9 L MCV 97.3 MCH 32.7 H MCHC 33.6 RDW 14.1 Plt Count 157 MPV 8.7 Neut % (Auto) 88.4 H Lymph % (Auto) 5.8 L [place] % (Auto) 5.1 Eos % (Auto) 0.5 Baso % (Auto) 0.2 Neut # (Auto) 10.2 H Lymph # (Auto) 0.7 L [place] # (Auto) 0.6 Eos # (Auto) 0.1 Baso # (Auto) 0.0 Neutrophils % (Manual) 86 H Band Neutrophils % 6 H Lymphocytes % (Manual) 4 L Monocytes % (Manual) 3 Basophils % (Manual) 1 Platelet Estimate Normal PT INR APTT pCO2 41 pO2 382 H HCO3 28.8 H ABG pH 7.46 H ABG Total CO2 30.5 H ABG O2 Saturation 97.0 ABG Base Excess 4.9 H August Test Yes ABG Potassium 5.1 A-a O2 Difference 280.0 Glucose 397 H Lactate 1.9 Vent Mode Prvc/ac Mechanical Rate 12 FiO2 100.0 Tidal Volume 500 PEEP 5 Sodium 135.0 138 Potassium 5.1 H Chloride 106.0 103 Carbon Dioxide 31 H Anion Gap 9 L BUN 32 H Creatinine 1.8 H Est GFR ( Amer) 33 Est GFR (Non-Af Amer) 27 POC Glucose (mg/dL) Random Glucose 366 H Calcium 9.8 Phosphorus 4.2 Magnesium 2.3 Total Bilirubin 0.6 AST 381 H D ALT 218 H D Alkaline Phosphatase 92 Troponin I < 0.0120 Total Protein 6.1 L Albumin 2.8 L Globulin 3.3 Albumin/Globulin Ratio 0.8 L Arterial Blood Potassium 5.1 07/13/18 10:24 WBC RBC Hgb Hct MCV MCH MCHC RDW Plt Count MPV Neut % (Auto) Lymph % (Auto) [place] % (Auto) Eos % (Auto) Baso % (Auto) Neut # (Auto) Lymph # (Auto) [place] # (Auto) Eos # (Auto) Baso # (Auto) Neutrophils % (Manual) Band Neutrophils % Lymphocytes % (Manual) Monocytes % (Manual) Basophils % (Manual) Platelet Estimate PT 12.3 INR 1.1 APTT 31.2 pCO2 pO2 HCO3 ABG pH ABG Total CO2 ABG O2 Saturation ABG Base Excess August Test ABG Potassium A-a O2 Difference Glucose Lactate Vent Mode Mechanical Rate FiO2 Tidal Volume PEEP Sodium Potassium Chloride Carbon Dioxide Anion Gap BUN Creatinine Est GFR ( Amer) Est GFR (Non-Af Amer) POC Glucose (mg/dL) Random Glucose Calcium Phosphorus Magnesium Total Bilirubin AST ALT Alkaline Phosphatase Troponin I Total Protein Albumin Globulin Albumin/Globulin Ratio Arterial Blood Potassium Assessment & Plan (1) Cardiac arrest Assessment and Plan: s/p bradycardic/PEA arrest ? cardiac etiology vs aspiration causing hypoxemia EKG last night shows slow V-tach hemodynamic support with pressors for BP Status: Acute (2) Shock Assessment and Plan: cont levophed stat echo Status: Acute (3) CAD (coronary artery disease) of artery bypass graft Assessment and Plan: cont asa bb on hold due to shock elevated LFT's - hold statins cycle cardiac enzymes x 3 Status: Acute (4) Acute kidney injury superimposed on chronic kidney disease Status: Acute (5) Aspiration pneumonia Status: Acute (6) Change in mental status Status: Acute (7) CAD (coronary artery disease) Status: Chronic Priority: Medium
[2018-07-13] MEDS: Sodium Chloride 0.9% 1,000 ML IV SCH (14:10)
--- NOTE | 2018-07-13 16:27 | CP.PCM.PN ---
Subjective - Date & Time of Evaluation Date of Evaluation: 07/13/18 Time of Evaluation: 11:20 - Subjective Subjective: S/P Cardiac Arrest. Pt intubated, unresponsive. As per nurse, Pt reported with multiple episodes of vomiting last night, today at 7:08 was found unresponsive, pulseless associated to bradycardia, code Blue was performed and Pt was orally intubated. Objective - Vital Signs/Intake and Output Vital Signs (last 24 hours): Temp Pulse Resp BP Pulse Ox 88.5 F L 71 29 H 158/78 H 100 07/13/18 16:00 07/13/18 16:00 07/13/18 15:21 07/13/18 16:00 07/13/18 16:00 Intake and Output: 07/13/18 07/13/18 06:59 18:59 Intake Total 1100 Output Total 445 Balance 655 - Medications Medications: Current Medications Acetaminophen (Tylenol 650mg/20.3ml Solution Ud) 975 mg NG Q6 PRN PRN Reason: Rigors Alprazolam (Xanax) 0.25 mg PO Q12 PRN PRN Reason: Anxiety Stop: 07/18/18 08:59 Aspirin (Aspirin Chewable) 81 mg NG DAILY [facility] Atorvastatin Calcium (Lipitor) 40 mg PO HS [facility] Last Admin: 07/12/18 21:23 Dose: 40 mg Carvedilol (Coreg) 3.125 mg PO Q12 [facility] Last Admin: 07/13/18 11:20 Dose: Not Given Ferrous Sulfate (Feosol) 325 mg PO DAILY [facility] Last Admin: 07/13/18 11:20 Dose: Not Given Home Med (Patient's Own Medication) 10 unit SC ACBD [facility] Last Admin: 07/12/18 17:01 Dose: Not Given Piperacillin Sod/Tazobactam (Sod 3.375 gm/ Sodium Chloride) 100 mls @ 100 ml s/hr IVPB Q6 [facility]; Protocol Last Admin: 07/13/18 11:24 Dose: 100 mls/hr Propofol (Diprivan) 1,000 mg in 100 mls @ 2.545 mls/hr IV .Q24H [facility]; Protocol Stop: 07/14/18 12:16 Last Admin: 07/13/18 12:31 Dose: 5 mcg/kg/min, 2.545 mls/hr Sodium Chloride (Sodium Chloride 0.9%) 1,000 mls @ 100 mls/hr IV .Q10H [facility] Stop: 07/14/18 12:40 Last Admin: 07/13/18 14:10 Dose: 100 mls/hr Insulin Human Regular (Humulin R) 0 units SC ACCU-CHECK [facility]; Protocol Last Admin: 07/13/18 11:21 Dose: 4 units Ondansetron HCl (Zofran Inj) 4 mg IVP Q4 PRN PRN Reason: Nausea/Vomiting Last Admin: 07/12/18 23:31 Dose: 4 mg Pantoprazole Sodium (Protonix Inj) 40 mg IVP DAILY [facility] Last Admin: 07/13/18 12:34 Dose: 40 mg Phenazopyridine HCl (Pyridium) 200 mg PO TID [facility] Last Admin: 07/13/18 11:23 Dose: Not Given Ranolazine (Ranexa) 1,000 mg PO BID [facility] Last Admin: 07/13/18 11:23 Dose: Not Given - Labs Labs: 07/13/18 08:45 07/13/18 08:45 PT 12.3 Seconds (9.8-13.1) 07/13/18 10:24 INR 1.1 07/13/18 10:24 APTT 31.2 Seconds (25.6-37.1) 07/13/18 10:24 - Constitutional Appears: Other (Intubated/sedated) - Head Exam Head Exam: NORMAL INSPECTION - Eye Exam Additional comments: Right pupil non reactive. 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 - ENT Exam Additional comments: Intubated - Neck Exam Neck Exam: Normal Inspection - Respiratory Exam Respiratory Exam: Decreased Breath Sounds (at bases), Rhonchi - Cardiovascular Exam Cardiovascular Exam: REGULAR RHYTHM, Murmur (systolic) - GI/Abdominal Exam GI & Abdominal Exam: Soft - Extremities Exam Extremities Exam: Tenderness Additional comments: Edema b/l hands. L TMA - Neurological Exam Additional comments: Intubated, sedated - Psychiatric Exam Additional comments: Sedated - Skin Skin Exam: Pallor Assessment and Plan (1) Respiratory failure Status: Acute (2) Cardiac arrest Status: Acute (3) Shock Status: Acute (4) Chest pain Status: Acute (5) Toxic metabolic encephalopathy Status: Acute (6) UTI (urinary tract infection) Status: Acute (7) Type 2 diabetes mellitus with hyperglycemia Status: Chronic (8) CKD (chronic kidney disease) Status: Chronic (9) HTN (hypertension) Status: Chronic (10) CAD (coronary artery disease) Status: Chronic (11) Hx of CABG Status: Chronic (12) Hypercholesterolemia Status: Chronic (13) Chronic low back pain Status: Chronic (14) Generalized weakness Status: Chronic (15) Anxiety Status: Chronic (16) Elevated troponin Status: Acute - Assessment and Plan (Free Text) Plan: Continue respiratory support, propofil, Coreg, Zosyn, Pyridium, Inusulin, Sodium Chl and rest of Tx. Intensive care unit time: 45 minutes.
[2018-07-13 16:55] LABS: VENOUS BLOOD GAS BASE EXCESS 3.2 mmol/L (0.0-2.0); VENOUS BLOOD GAS PCO2 60 mmHg (40-60); VENOUS BLOOD GAS PO2 26 mm/Hg (30-55); VENOUS BLOOD PH 7.32 (7.32-7.43)
[2018-07-13 17:17] LABS: MEAN CELL VOLUME 96.4 fl (81.0-99.0); MEAN CORPUSCULAR HEMOGLOBIN 31.9 pg (27.0-31.0); MEAN CORPUSCULAR HGB CONC 33.1 g/dL (33.0-37.0); RBC 2.82 Mil/uL (3.80-5.20); RED CELL DISTRIBUTION WIDTH 14.4 % (11.5-14.5); WHITE BLOOD COUNT 11.4 K/uL (4.8-10.8)
[2018-07-13 17:28] LABS: ALB/GLOB RATIO 0.8 (1.0-2.1); ALBUMIN 2.7 g/dL (3.5-5.0); CALCIUM 8.8 mg/dL (8.4-10.2)
[2018-07-13 17:39] LABS: TROPONIN I 0.114 ng/mL (0.00-0.120)
[2018-07-13 17:44] LABS: INR 1.1; PROTHROMBIN TIME 12.5 Seconds (9.8-13.1)
[2018-07-13 17:47] LABS: PARTIAL THROMBOPLASTIN TIME 31.5 Seconds (25.6-37.1)
--- NOTE | 2018-07-13 18:06 | CP.PCM.PN ---
Subjective - Date & Time of Evaluation Date of Evaluation: 07/13/18 Time of Evaluation: 18:00 - Subjective Subjective: Dr Su's note reviewed. He was requested by family to resume care. will sign off. Objective - Vital Signs/Intake and Output Vital Signs (last 24 hours): Temp Pulse Resp BP Pulse Ox 92.5 F L 73 22 117/65 100 07/13/18 17:00 07/13/18 17:00 07/13/18 17:00 07/13/18 17:00 07/13/18 17:00 Intake and Output: 07/13/18 07/13/18 06:59 18:59 Intake Total 2329 Output Total 460 Balance 1869 - Medications Medications: Current Medications Acetaminophen (Tylenol 650mg/20.3ml Solution Ud) 975 mg NG Q6 PRN PRN Reason: Rigors Alprazolam (Xanax) 0.25 mg PO Q12 PRN PRN Reason: Anxiety Stop: 07/18/18 08:59 Aspirin (Aspirin Chewable) 81 mg NG DAILY [facility] Atorvastatin Calcium (Lipitor) 40 mg PO HS [facility] Last Admin: 07/12/18 21:23 Dose: 40 mg Carvedilol (Coreg) 3.125 mg PO Q12 [facility] Last Admin: 07/13/18 11:20 Dose: Not Given Ferrous Sulfate (Feosol) 325 mg PO DAILY [facility] Last Admin: 07/13/18 11:20 Dose: Not Given Home Med (Patient's Own Medication) 10 unit SC ACBD [facility] Last Admin: 07/12/18 17:01 Dose: Not Given Piperacillin Sod/Tazobactam (Sod 3.375 gm/ Sodium Chloride) 100 mls @ 100 mls/hr IVPB Q6 [facility]; Protocol Last Admin: 07/13/18 16:50 Dose: 100 mls/hr Propofol (Diprivan) 1,000 mg in 100 mls @ 2.545 mls/hr IV .Q24H [facility]; Protocol Stop: 07/14/18 12:16 Last Admin: 07/13/18 12:31 Dose: 5 mcg/kg/min, 2.545 mls/hr Sodium Chloride (Sodium Chloride 0.9%) 1,000 mls @ 100 mls/hr IV .Q10H [facility] Stop: 07/14/18 12:40 Last Admin: 07/13/18 14:10 Dose: 100 mls/hr Norepinephrine Bitartrate 4 mg (/ Dextrose) 254 mls @ 9.53 mls/hr IV .Q24H [facility]; Protocol Last Titration: 07/13/18 17:31 Dose: 0 mcg/min, 0 mls/hr Insulin Human Regular (Humulin R) 0 units SC ACCU-CHECK [facility]; Protocol Last Admin: 07/13/18 17:34 Dose: 4 units Insulin Human Regular (Humulin R) 0 units SC ACCU-CHECK [facility]; Protocol Ondansetron HCl (Zofran Inj) 4 mg IVP Q4 PRN PRN Reason: Nausea/Vomiting Last Admin: 07/12/18 23:31 Dose: 4 mg Pantoprazole Sodium (Protonix Inj) 40 mg IVP DAILY [facility] Last Admin: 07/13/18 12:34 Dose: 40 mg Phenazopyridine HCl (Pyridium) 200 mg PO TID [facility] Last Admin: 07/13/18 11:23 Dose: Not Given Ranolazine (Ranexa) 1,000 mg PO BID [facility] Last Admin: 07/13/18 11:23 Dose: Not Given - Labs Labs: 07/13/18 17:10 07/13/18 17:10 PT 12.5 Seconds (9.8-13.1) 07/13/18 17:10 INR 1.1 07/13/18 17:10 APTT 31.5 Seconds (25.6-37.1) 07/13/18 17:10 Assessment and Plan (1) Chronic chest pain Status: Acute (2) CAD (coronary artery disease) Status: Chronic (3) HTN (hypertension) Status: Chronic
[2018-07-13 23:03] LABS: HEMOGLOBIN 9.1 g/dL (12.0-16.0); INR 1.1; MEAN CELL VOLUME 95.9 fl (81.0-99.0); MEAN CORPUSCULAR HEMOGLOBIN 31.7 pg (27.0-31.0); PROTHROMBIN TIME 12.2 Seconds (9.8-13.1); RBC 2.86 Mil/uL (3.80-5.20); RED CELL DISTRIBUTION WIDTH 14.1 % (11.5-14.5); WHITE BLOOD COUNT 11.3 K/uL (4.8-10.8)
[2018-07-13 23:06] LABS: PARTIAL THROMBOPLASTIN TIME 30.6 Seconds (25.6-37.1)
[2018-07-13 23:29] LABS: TROPONIN I 2.41 ng/mL (0.00-0.120)
[2018-07-13 23:31] LABS: ABG ALLEN TEST YES; ARTERIAL BLOOD GAS HCO3 28.1 mmol/L (21-28); ARTERIAL BLOOD GAS O2 SAT 96.6 % (95-98); ARTERIAL BLOOD GAS PCO2 37 mm/Hg (35-45); ARTERIAL BLOOD GAS PH 7.48 (7.35-7.45); ARTERIAL BLOOD GAS PO2 147 mm/Hg (80-100); ARTERIAL BLOOD GAS TCO2 28.7 mmol/L (22-28)
[2018-07-13 23:49] LABS: ALB/GLOB RATIO 0.9 (1.0-2.1); ALBUMIN 2.9 g/dL (3.5-5.0)
[2018-07-14 05:30] LABS: ABG ALLEN TEST YES; ARTERIAL BLOOD GAS HCO3 25.8 mmol/L (21-28); ARTERIAL BLOOD GAS O2 SAT 96.1 % (95-98); ARTERIAL BLOOD GAS PCO2 41 mm/Hg (35-45); ARTERIAL BLOOD GAS PH 7.41 (7.35-7.45); ARTERIAL BLOOD GAS PO2 118 mm/Hg (80-100); ARTERIAL BLOOD GAS TCO2 27.3 mmol/L (22-28)
[2018-07-14 05:36] LABS: INR 1.1; PROTHROMBIN TIME 12.5 Seconds (9.8-13.1)
[2018-07-14 05:39] LABS: PARTIAL THROMBOPLASTIN TIME 29.9 Seconds (25.6-37.1)
[2018-07-14 05:40] LABS: BASO % 0.1 % (0.0-2.0); EOS # 0.1 K/uL (0.0-0.7); EOS % 0.6 % (0.0-4.0); HEMOGLOBIN 8.9 g/dL (12.0-16.0); LYMPH # 0.9 K/uL (1.0-4.3); LYMPH % 10.5 % (20.0-40.0); MEAN CELL VOLUME 95.2 fl (81.0-99.0); MEAN CORPUSCULAR HGB CONC 33.6 g/dL (33.0-37.0); MEAN PLATELET VOLUME 8.9 fl (7.2-11.7); MONO # 0.6 K/uL (0.0-0.8); MONO % 6.3 % (0.0-10.0); NEUT # 7.3 K/uL (1.8-7.0); NEUT % 82.5 % (50.0-75.0); RBC 2.79 Mil/uL (3.80-5.20); RED CELL DISTRIBUTION WIDTH 14.3 % (11.5-14.5); WHITE BLOOD COUNT 8.8 K/uL (4.8-10.8)
[2018-07-14 06:17] LABS: ALB/GLOB RATIO 0.8 (1.0-2.1); ALBUMIN 2.7 g/dL (3.5-5.0); CALCIUM 8.8 mg/dL (8.4-10.2); TROPONIN I 48.4 ng/mL (0.00-0.120)
[2018-07-14] MEDS: Propofol 10 mg/ml 1,000 MG/100 ML VIAL IV SCH (07:00)
[2018-07-14] MEDS: Sodium Chloride 0.9% 1,000 ML IV SCH ×2 (08:30→18:27)
--- NOTE | 2018-07-14 09:51 | RAD ---
Date of service: 07/14/2018 HISTORY: intubated COMPARISON: 07/13/2018 FINDINGS: LUNGS: Minimal subsegmental atelectasis at right base. No acute infiltrate. PLEURA: No significant pleural effusion identified, no pneumothorax apparent. CARDIOVASCULAR: Minimal atherosclerotic calcification noted at the aortic arch. Normal heart size. Sternotomy wires. ET tube and NG tube unchanged in position. OSSEOUS STRUCTURES: No significant abnormalities. VISUALIZED UPPER ABDOMEN: Normal. OTHER FINDINGS: None. IMPRESSION: No active disease.
--- NOTE | 2018-07-14 09:53 | CP.PCM.PN ---
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 renal consult is requested for evaluation of increased bun/cr. pt's base line s.cr is between 1.3-2.2. pt is a poor historian, chart reviewed and history obtained from review of chart. s/p cardiac arrest, on ventilator, in icu Objective - Vital Signs/Intake and Output Vital Signs (last 24 hours): Temp Pulse Resp BP Pulse Ox 92.6 F L 60 60 H 139/58 L 98 07/14/18 09:00 07/14/18 09:00 07/14/18 09:00 07/14/18 09:00 07/14/18 09:00 Intake and Output: 07/14/18 07/14/18 06:59 18:59 Intake Total 1140 670 Output Total 100 Balance 1040 670 - Medications Medications: Current Medications Acetaminophen (Tylenol 650mg/20.3ml Solution Ud) 975 mg NG Q6 PRN PRN Reason: Rigors Alprazolam (Xanax) 0.25 mg PO Q12 PRN PRN Reason: Anxiety Stop: 07/18/18 08:59 Aspirin (Aspirin Chewable) 81 mg NG DAILY [facility] Last Admin: 07/14/18 09:31 Dose: 81 mg Atorvastatin Calcium (Lipitor) 40 mg PO HS [facility] Last Admin: 07/12/18 21:23 Dose: 40 mg Carvedilol (Coreg) 3.125 mg PO Q12 [facility] Last Admin: 07/13/18 11:20 Dose: Not Given Ferrous Sulfate (Feosol) 325 mg PO DAILY [facility] Last Admin: 07/13/18 11:20 Dose: Not Given Home Med (Patient's Own Medication) 10 unit SC ACBD [facility] Last Admin: 07/12/18 17:01 Dose: Not Given Propofol (Diprivan) 1,000 mg in 100 mls @ 2.545 mls/hr IV .Q24H [facility]; Protocol Stop: 07/14/18 12:16 Last Titration: 07/14/18 08:39 Dose: 15 mcg/kg/min, 7.634 mls/hr Sodium Chloride (Sodium Chloride 0.9%) 1,000 mls @ 100 mls/hr IV .Q10H [facility] Stop: 07/14/18 12:40 Last Admin: 07/14/18 08:30 Dose: 100 mls/hr Norepinephrine Bitartrate 4 mg (/ Dextrose) 254 mls @ 9.53 mls/hr IV .Q24H [facility]; Protocol Last Titration: 07/14/18 08:46 Dose: 0 mcg/min, 0 mls/hr Piperacillin Sod/Tazobactam (Sod 2.25 gm/ Sodium Chloride) 100 mls @ 100 mls/hr IVPB Q6 [facility]; Protocol Last Admin: 07/14/18 09:30 Dose: 100 mls/hr Insulin Human Regular (Humulin R) 0 units SC ACCU-CHECK [facility]; Protocol Last Admin: 07/13/18 22:49 Dose: Not Given Insulin Human Regular (Humulin R) 0 units SC ACCU-CHECK [facility]; Protocol Last Admin: 07/13/18 23:36 Dose: Not Given Ondansetron HCl (Zofran Inj) 4 mg IVP Q4 PRN PRN Reason: Nausea/Vomiting Last Admin: 07/12/18 23:31 Dose: 4 mg Pantoprazole Sodium (Protonix Inj) 40 mg IVP DAILY [facility] Last Admin: 07/14/18 09:31 Dose: 40 mg Phenazopyridine HCl (Pyridium) 200 mg PO TID [facility] Last Admin: 07/13/18 11:23 Dose: Not Given Ranolazine (Ranexa) 1,000 mg PO BID [facility] Last Admin: 07/13/18 11:23 Dose: Not Given - Labs Labs: 07/14/18 04:45 07/14/18 04:45 PT 12.5 Seconds (9.8-13.1) 07/14/18 04:45 INR 1.1 07/14/18 04:45 APTT 29.9 Seconds (25.6-37.1) 07/14/18 04:45 - Constitutional Appears: Non-toxic - Head Exam Head Exam: ATRAUMATIC, NORMAL INSPECTION, NORMOCEPHALIC - Eye Exam Eye Exam: Normal appearance Additional comments: left eye prosthesis - Respiratory Exam Respiratory Exam: Clear to Ausculation Bilateral, NORMAL BREATHING PATTERN Additional comments: on vent - Cardiovascular Exam Cardiovascular Exam: REGULAR RHYTHM, +S1, +S2 - Rectal Exam Rectal Exam: Deferred - Neurological Exam Additional comments: on vent , not responding to verbal stimuli Assessment and Plan - Assessment and Plan (Free Text) Assessment: 78yo female with htn, copd, cad, s/p[ cabg, s/p multiple stents, dm, cva, s/p left TMA, s/p cornel, left eye prosthesis, dementia, recurrent uti's, chest pain 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 renal failure, is most likely ckd sec to HTN 2. R/o UTI 3. chest pain , r/o ACS 4. s/p cardiac arrest, sec to ? Aspiration c/w vent support prognosis iv very poor
--- NOTE | 2018-07-14 10:47 | CP.CCUPN ---
<Salomon Hart - Last Filed: 07/14/18 15:31> CCU Subjective - Physician Review Subjective (Free Text): Patient is an 78 y/o female with pmhx of DMII, HTN, CKD, CVA admitted with complaints of chest pain, who was found on the floors unresponsive without a pulse after vomiting episode. AROSC was acheived, patient was intubated, and transferred to ICU where she is now undergoing therapeutic hypothermia. Overnight events:Temp maintained at 33-34C with cooling blankets. S: Pt seen and examined in the am. Family at bedside. Pt is still unresponsive. Family's questions asked and answered. CCU Objective - Vital Signs / Intake & Output Vital Signs (Last 4 hours): Vital Signs Temp Pulse Resp BP Pulse Ox 07/14/18 09:00 92.6 F L 60 60 H 139/58 L 98 07/14/18 08:00 92.6 F L 62 22 180/79 H 100 07/14/18 07:00 92.0 F L 60 22 149/77 98 Intake and Output (Last 8hrs): Intake & Output 07/13/18 07/14/18 07/14/18 22:59 06:59 14:59 Intake Total 2559 810 870 Output Total 40 90 Balance 2519 720 870 Weight 187 lb Intake: IV 2459 710 870 Intake, Piggyback 100 100 Output: Urine 40 90 Urethral (Méndez) 40 90 - Physical Exam Physical Exam Limitations: Positive for: Altered Mental Status (GCS 4) Pupils: Positive for: PERRL Extroacular Muscles: Positive for: Gaze Palsy Mouth: Positive for: Moist Mucous Membranes Pharnyx: Positive for: Other (+GAG) Neck: Negative for: JVD Respiratory/Chest: Positive for: Clear to Auscultation. Negative for: Respiratory Distress, Rales, Rhonchi Cardiovascular: Positive for: Peripheal Pulses Present, Tachycardic Abdomen: Positive for: Normal Bowel Sounds. Negative for: Distention Upper Extremity: Positive for: Edema, NORMAL PULSES. Negative for: Cyanosis Lower Extremity: Positive for: Edema, NORMAL PULSES, Other (+TLD R. Femoral) Skin: Positive for: Pale Psychiatric: Negative for: Alert - Medications Active Medications: Active Medications Generic Name Dose Route Start Last Admin Trade Name Freq PRN Reason Stop Dose Admin Acetaminophen 975 mg 07/13/18 11:03 Tylenol 650mg/20.3ml Solution Ud NG Q6 PRN Rigors Alprazolam 0.25 mg 07/11/18 08:58 Xanax PO 07/18/18 08:59 Q12 PRN Anxiety Aspirin 81 mg 07/14/18 09:00 07/14/18 09:31 Aspirin Chewable NG 81 mg DAILY EVA Administration Atorvastatin Calcium 40 mg 07/11/18 22:00 07/12/18 21:23 Lipitor PO 40 mg HS EVA Administration Carvedilol 3.125 mg 07/11/18 09:15 07/13/18 11:20 Coreg PO Not Given Q12 EVA Ferrous Sulfate 325 mg 07/11/18 09:00 07/13/18 11:20 Feosol PO Not Given DAILY [facility] Home Med 10 unit 07/12/18 07:30 07/12/18 17:01 Patient's Own Medication SC Not Given ACBD EVA Propofol 1,000 mg in 100 mls @ 2.545 mls/hr 07/13/18 12:30 07/14/18 08:39 Diprivan IV 07/14/18 12:16 15 mcg/kg/min .Q24H EVA 7.634 mls/hr Titration Protocol 5 MCG/KG/MIN Sodium Chloride 1,000 mls @ 100 mls/hr 07/13/18 12:45 07/14/18 08:30 Sodium Chloride 0.9% IV 07/14/18 12:40 100 mls/hr .Q10H EVA Administration Norepinephrine Bitartrate 4 mg 254 mls @ 9.53 mls/hr 07/13/18 14:00 07/14/18 08:46 / Dextrose IV 0 mcg/min .Q24H EVA 0 mls/hr Titration Protocol 2.5 MCG/MIN Piperacillin Sod/Tazobactam 100 mls @ 100 mls/hr 07/13/18 22:45 07/14/18 09:30 Sod 2.25 gm/ Sodium Chloride IVPB 100 mls/hr Q6 EVA Administration Protocol Insulin Human Regular 0 units 07/13/18 23:00 07/13/18 23:36 Humulin R SC Not Given ACCU-CHECK EVA Protocol Ondansetron HCl 4 mg 07/12/18 23:11 07/12/18 23:31 Zofran Inj IVP 4 mg Q4 PRN Administration Nausea/Vomiting Pantoprazole Sodium 40 mg 07/13/18 12:30 07/14/18 09:31 Protonix Inj IVP 40 mg DAILY EVA Administration Phenazopyridine HCl 200 mg 07/11/18 13:00 07/13/18 11:23 Pyridium PO Not Given TID EVA Ranolazine 1,000 mg 07/11/18 17:00 07/13/18 11:23 Ranexa PO Not Given BID EVA - Patient Studies Lab Studies: Microbiology Studies 07/11/18 01:20 Blood Culture - Preliminary Blood NO GROWTH AFTER 3 DAYS 07/11/18 00:56 Blood Culture - Preliminary Blood NO GROWTH AFTER 3 DAYS 07/13/18 17:10 Gram Stain - Final Sputum 07/11/18 16:23 Blood Culture - Preliminary Blood NO GROWTH AFTER 48 HOURS 07/11/18 16:33 Blood Culture - Preliminary Blood NO GROWTH AFTER 48 HOURS 07/11/18 00:01 Urine Culture - Final Urine,Catheterized Escherichia Coli Lab Studies 07/14/18 07/14/18 07/14/18 Range/Units 04:45 04:45 04:45 WBC 8.8 (4.8-10.8) K/uL RBC 2.79 L (3.80-5.20) Mil/uL Hgb 8.9 L (12.0-16.0) g/dL Hct 26.6 L (34.0-47.0) % MCV 95.2 (81.0-99.0) fl MCH 32.0 H (27.0-31.0) pg MCHC 33.6 (33.0-37.0) g/dL RDW 14.3 (11.5-14.5) % Plt Count 156 (130-400) K/uL MPV 8.9 (7.2-11.7) fl Neut % (Auto) 82.5 H (50.0-75.0) % Lymph % (Auto) 10.5 L (20.0-40.0) % Gosper % (Auto) 6.3 (0.0-10.0) % Eos % (Auto) 0.6 (0.0-4.0) % Baso % (Auto) 0.1 (0.0-2.0) % Neut # (Auto) 7.3 H (1.8-7.0) K/uL Lymph # (Auto) 0.9 L (1.0-4.3) K/uL Gos[place] # (Auto) 0.6 (0.0-0.8) K/uL Eos # (Auto) 0.1 (0.0-0.7) K/uL Baso # (Auto) 0.0 (0.0-0.2) K/uL PT 12.5 (9.8-13.1) Seconds INR 1.1 APTT 29.9 (25.6-37.1) Seconds pCO2 (35-45) mm/Hg pO2 (30-55) mm/Hg HCO3 (21-28) mmol/L ABG pH (7.35-7.45) ABG Total CO2 (22-28) mmol/L ABG O2 Saturation (95-98) % ABG Base Excess (-2.0-3.0) mmol/L August Test ABG Potassium (3.6-5.2) mmol/L VBG pH (7.32-7.43) VBG pCO2 (40-60) mmHg VBG HCO3 mmol/L VBG Total CO2 (22-28) mmol/L VBG O2 Sat (Calc) (40-65) % VBG Base Excess (0.0-2.0) mmol/L VBG Potassium (3.6-5.2) mmol/L A-a O2 Difference mm/Hg Sodium 139 (132-148) mmol/L Chloride 105 (98-107) mmol/L Glucose (65-105) mg/dL Lactate (0.7-2.1) mmol/L Vent Mode Mechanical Rate FiO2 % Tidal Volume PEEP Potassium 4.9 (3.6-5.0) MMOL/L Carbon Dioxide 29 (22-30) mmol/L Anion Gap 10 (10-20) BUN 35 H (7-17) mg/dl Creatinine 2.0 H (0.7-1.2) mg/dl Est GFR ( Amer) 29 Est GFR (Non-Af Amer) 24 Random Glucose 193 H (65-105) mg/dL Calcium 8.8 (8.4-10.2) mg/dL Phosphorus 2.7 (2.5-4.5) mg/dl Magnesium 2.1 (1.6-2.3) MG/DL Total Bilirubin 0.8 (0.2-1.3) mg/dl Direct Bilirubin 0.0 (0.0-0.4) mg/ml AST 365 H (14-36) U/L ALT 156 H D (9-52) U/L Alkaline Phosphatase 84 (38-126) U/L Lactate Dehydrogenase (313-618) U/L Troponin I 48.4000 H* (0.00-0.120) ng/mL Total Protein 6.2 L (6.3-8.2) G/DL Albumin 2.7 L (3.5-5.0) g/dL Globulin 3.4 (2.2-3.9) gm/dL Albumin/Globulin Ratio 0.8 L (1.0-2.1) Arterial Blood Potassium (3.6-5.2) mmol/L Venous Blood Potassium (3.6-5.2) mmol/L 07/14/18 07/13/18 07/13/18 Range/Units 04:00 23:21 23:11 WBC (4.8-10.8) K/uL RBC (3.80-5.20) Mil/uL Hgb (12.0-16.0) g/dL Hct (34.0-47.0) % MCV (81.0-99.0) fl MCH (27.0-31.0) pg MCHC (33.0-37.0) g/dL RDW (11.5-14.5) % Plt Count (130-400) K/uL MPV (7.2-11.7) fl Neut % (Auto) (50.0-75.0) % Lymph % (Auto) (20.0-40.0) % Gosper % (Auto) (0.0-10.0) % Eos % (Auto) (0.0-4.0) % Baso % (Auto) (0.0-2.0) % Neut # (Auto) (1.8-7.0) K/uL Lymph # (Auto) (1.0-4.3) K/uL Gosper # (Auto) (0.0-0.8) K/uL Eos # (Auto) (0.0-0.7) K/uL Baso # (Auto) (0.0-0.2) K/uL PT (9.8-13.1) Seconds INR APTT (25.6-37.1) Seconds pCO2 41 37 (35-45) mm/Hg pO2 118 H 147 H (30-55) mm/Hg HCO3 25.8 28.1 H (21-28) mmol/L ABG pH 7.41 7.48 H (7.35-7.45) ABG Total CO2 27.3 28.7 H (22-28) mmol/L ABG O2 Saturation 96.1 96.6 (95-98) % ABG Base Excess 1.2 4.0 H (-2.0-3.0) mmol/L August Test Yes Yes ABG Potassium 4.8 4.7 (3.6-5.2) mmol/L VBG pH (7.32-7.43) VBG pCO2 (40-60) mmHg VBG HCO3 mmol/L VBG Total CO2 (22-28) mmol/L VBG O2 Sat (Calc) (40-65) % VBG Base Excess (0.0-2.0) mmol/L VBG Potassium (3.6-5.2) mmol/L A-a O2 Difference 116.0 163.0 mm/Hg Sodium 137.0 137.0 (132-148) mmol/L Chloride 109.0 H 109.0 H (98-107) mmol/L Glucose 205 H 225 H (65-105) mg/dL Lactate 1.1 1.2 (0.7-2.1) mmol/L Vent Mode A/c A/c Mechanical Rate 12 12 FiO2 40.0 50.0 % Tidal Volume 500 500 PEEP 5 5 Potassium (3.6-5.0) MMOL/L Carbon Dioxide (22-30) mmol/L Anion Gap (10-20) BUN (7-17) mg/dl Creatinine (0.7-1.2) mg/dl Est GFR ( Amer) Est GFR (Non-Af Amer) Random Glucose (65-105) mg/dL Calcium (8.4-10.2) mg/dL Phosphorus (2.5-4.5) mg/dl Magnesium (1.6-2.3) MG/DL Total Bilirubin 0.6 (0.2-1.3) mg/dl Direct Bilirubin 0.0 (0.0-0.4) mg/ml AST 405 H (14-36) U/L ALT 230 H D (9-52) U/L Alkaline Phosphatase 90 (38-126) U/L Lactate Dehydrogenase (313-618) U/L Troponin I (0.00-0.120) ng/mL Total Protein 6.1 L (6.3-8.2) G/DL Albumin 2.9 L (3.5-5.0) g/dL Globulin 3.3 (2.2-3.9) gm/dL Albumin/Globulin Ratio 0.9 L (1.0-2.1) Arterial Blood Potassium 4.8 4.7 (3.6-5.2) mmol/L Venous Blood Potassium (3.6-5.2) mmol/L 07/13/18 07/13/18 07/13/18 Range/Units 22:40 22:40 22:40 WBC 11.3 H (4.8-10.8) K/uL RBC 2.86 L (3.80-5.20) Mil/uL Hgb 9.1 L (12.0-16.0) g/dL Hct 27.4 L (34.0-47.0) % MCV 95.9 (81.0-99.0) fl MCH 31.7 H (27.0-31.0) pg MCHC 33.0 (33.0-37.0) g/dL RDW 14.1 (11.5-14.5) % Plt Count 163 (130-400) K/uL MPV (7.2-11.7) fl Neut % (Auto) (50.0-75.0) % Lymph % (Auto) (20.0-40.0) % Gosper % (Auto) (0.0-10.0) % Eos % (Auto) (0.0-4.0) % Baso % (Auto) (0.0-2.0) % Neut # (Auto) (1.8-7.0) K/uL Lymph # (Auto) (1.0-4.3) K/uL Gosper # (Auto) (0.0-0.8) K/uL Eos # (Auto) (0.0-0.7) K/uL Baso # (Auto) (0.0-0.2) K/uL PT 12.2 (9.8-13.1) Seconds INR 1.1 APTT 30.6 (25.6-37.1) Seconds pCO2 (35-45) mm/Hg pO2 (30-55) mm/Hg HCO3 (21-28) mmol/L ABG pH (7.35-7.45) ABG Total CO2 (22-28) mmol/L ABG O2 Saturation (95-98) % ABG Base Excess (-2.0-3.0) mmol/L August Test ABG Potassium (3.6-5.2) mmol/L VBG pH (7.32-7.43) VBG pCO2 (40-60) mmHg VBG HCO3 mmol/L VBG Total CO2 (22-28) mmol/L VBG O2 Sat (Calc) (40-65) % VBG Base Excess (0.0-2.0) mmol/L VBG Potassium (3.6-5.2) mmol/L A-a O2 Difference mm/Hg Sodium 139 (132-148) mmol/L Chloride 104 (98-107) mmol/L Glucose (65-105) mg/dL Lactate (0.7-2.1) mmol/L Vent Mode Mechanical Rate FiO2 % Tidal Volume PEEP Potassium 5.0 (3.6-5.0) MMOL/L Carbon Dioxide 31 H (22-30) mmol/L Anion Gap 9 L (10-20) BUN 35 H (7-17) mg/dl Creatinine 1.9 H (0.7-1.2) mg/dl Est GFR ( Amer) 31 Est GFR (Non-Af Amer) 25 Random Glucose 223 H (65-105) mg/dL Calcium 9.0 (8.4-10.2) mg/dL Phosphorus 3.1 (2.5-4.5) mg/dl Magnesium 2.2 (1.6-2.3) MG/DL Total Bilirubin (0.2-1.3) mg/dl Direct Bilirubin (0.0-0.4) mg/ml AST (14-36) U/L ALT (9-52) U/L Alkaline Phosphatase (38-126) U/L Lactate Dehydrogenase (313-618) U/L Troponin I 2.4100 H* (0.00-0.120) ng/mL Total Protein (6.3-8.2) G/DL Albumin (3.5-5.0) g/dL Globulin (2.2-3.9) gm/dL Albumin/Globulin Ratio (1.0-2.1) Arterial Blood Potassium (3.6-5.2) mmol/L Venous Blood Potassium (3.6-5.2) mmol/L 07/13/18 07/13/18 07/13/18 Range/Units 17:10 17:10 17:10 WBC 11.4 H (4.8-10.8) K/uL RBC 2.82 L (3.80-5.20) Mil/uL Hgb 9.0 L (12.0-16.0) g/dL Hct 27.2 L (34.0-47.0) % MCV 96.4 (81.0-99.0) fl MCH 31.9 H (27.0-31.0) pg MCHC 33.1 (33.0-37.0) g/dL RDW 14.4 (11.5-14.5) % Plt Count 161 (130-400) K/uL MPV (7.2-11.7) fl Neut % (Auto) (50.0-75.0) % Lymph % (Auto) (20.0-40.0) % Gosper % (Auto) (0.0-10.0) % Eos % (Auto) (0.0-4.0) % Baso % (Auto) (0.0-2.0) % Neut # (Auto) (1.8-7.0) K/uL Lymph # (Auto) (1.0-4.3) K/uL [place]per # (Auto) (0.0-0.8) K/uL Eos # (Auto) (0.0-0.7) K/uL Baso # (Auto) (0.0-0.2) K/uL PT 12.5 (9.8-13.1) Seconds INR 1.1 APTT 31.5 (25.6-37.1) Seconds pCO2 (35-45) mm/Hg pO2 (30-55) mm/Hg HCO3 (21-28) mmol/L ABG pH (7.35-7.45) ABG Total CO2 (22-28) mmol/L ABG O2 Saturation (95-98) % ABG Base Excess (-2.0-3.0) mmol/L August Test ABG Potassium (3.6-5.2) mmol/L VBG pH (7.32-7.43) VBG pCO2 (40-60) mmHg VBG HCO3 mmol/L VBG Total CO2 (22-28) mmol/L VBG O2 Sat (Calc) (40-65) % VBG Base Excess (0.0-2.0) mmol/L VBG Potassium (3.6-5.2) mmol/L A-a O2 Difference mm/Hg Sodium 139 (132-148) mmol/L Chloride 105 (98-107) mmol/L Glucose (65-105) mg/dL Lactate (0.7-2.1) mmol/L Vent Mode Mechanical Rate FiO2 % Tidal Volume PEEP Potassium 5.1 H (3.6-5.0) MMOL/L Carbon Dioxide 31 H (22-30) mmol/L Anion Gap 8 L (10-20) BUN 33 H (7-17) mg/dl Creatinine 1.7 H (0.7-1.2) mg/dl Est GFR ( Amer) 35 Est GFR (Non-Af Amer) 29 Random Glucose 312 H (65-105) mg/dL Calcium 8.8 (8.4-10.2) mg/dL Phosphorus (2.5-4.5) mg/dl Magnesium 2.1 (1.6-2.3) MG/DL Total Bilirubin 0.7 (0.2-1.3) mg/dl Direct Bilirubin 0.0 (0.0-0.4) mg/ml AST 396 H (14-36) U/L ALT 183 H (9-52) U/L Alkaline Phosphatase 90 (38-126) U/L Lactate Dehydrogenase 1960 H (313-618) U/L Troponin I 0.1140 (0.00-0.120) ng/mL Total Protein 6.0 L (6.3-8.2) G/DL Albumin 2.7 L (3.5-5.0) g/dL Globulin 3.3 (2.2-3.9) gm/dL Albumin/Globulin Ratio 0.8 L (1.0-2.1) Arterial Blood Potassium (3.6-5.2) mmol/L Venous Blood Potassium (3.6-5.2) mmol/L 07/13/18 07/13/18 Range/Units 17:10 16:50 WBC (4.8-10.8) K/uL RBC (3.80-5.20) Mil/uL Hgb (12.0-16.0) g/dL Hct (34.0-47.0) % MCV (81.0-99.0) fl MCH (27.0-31.0) pg MCHC (33.0-37.0) g/dL RDW (11.5-14.5) % Plt Count (130-400) K/uL MPV (7.2-11.7) fl Neut % (Auto) (50.0-75.0) % Lymph % (Auto) (20.0-40.0) % Gos[place] % (Auto) (0.0-10.0) % Eos % (Auto) (0.0-4.0) % Baso % (Auto) (0.0-2.0) % Neut # (Auto) (1.8-7.0) K/uL Lymph # (Auto) (1.0-4.3) K/uL [place]per # (Auto) (0.0-0.8) K/uL Eos # (Auto) (0.0-0.7) K/uL Baso # (Auto) (0.0-0.2) K/uL PT (9.8-13.1) Seconds INR APTT (25.6-37.1) Seconds pCO2 (35-45) mm/Hg pO2 26 L (30-55) mm/Hg HCO3 (21-28) mmol/L ABG pH (7.35-7.45) ABG Total CO2 (22-28) mmol/L ABG O2 Saturation (95-98) % ABG Base Excess (-2.0-3.0) mmol/L August Test ABG Potassium (3.6-5.2) mmol/L VBG pH 7.32 (7.32-7.43) VBG pCO2 60 (40-60) mmHg VBG HCO3 25.9 mmol/L VBG Total CO2 32.7 H (22-28) mmol/L VBG O2 Sat (Calc) 60.2 (40-65) % VBG Base Excess 3.2 H (0.0-2.0) mmol/L VBG Potassium 5.2 (3.6-5.2) mmol/L A-a O2 Difference mm/Hg Sodium 137.0 (132-148) mmol/L Chloride 108.0 H (98-107) mmol/L Glucose 341 H (65-105) mg/dL Lactate 1.8 (0.7-2.1) mmol/L Vent Mode Mechanical Rate FiO2 50.0 % Tidal Volume PEEP 5 Potassium (3.6-5.0) MMOL/L Carbon Dioxide (22-30) mmol/L Anion Gap (10-20) BUN (7-17) mg/dl Creatinine (0.7-1.2) mg/dl Est GFR ( Amer) Est GFR (Non-Af Amer) Random Glucose (65-105) mg/dL Calcium (8.4-10.2) mg/dL Phosphorus (2.5-4.5) mg/dl Magnesium (1.6-2.3) MG/DL Total Bilirubin (0.2-1.3) mg/dl Direct Bilirubin (0.0-0.4) mg/ml AST (14-36) U/L ALT (9-52) U/L Alkaline Phosphatase (38-126) U/L Lactate Dehydrogenase (313-618) U/L Troponin I 0.1160 (0.00-0.120) ng/mL Total Protein (6.3-8.2) G/DL Albumin (3.5-5.0) g/dL Globulin (2.2-3.9) gm/dL Albumin/Globulin Ratio (1.0-2.1) Arterial Blood Potassium (3.6-5.2) mmol/L Venous Blood Potassium 5.2 (3.6-5.2) mmol/L Laboratory Results - last 24 hr 07/13/18 07/13/18 07/13/18 16:50 17:10 17:10 WBC 11.4 H RBC 2.82 L Hgb 9.0 L Hct 27.2 L MCV 96.4 MCH 31.9 H MCHC 33.1 RDW 14.4 Plt Count 161 MPV Neut % (Auto) Lymph % (Auto) Gosper % (Auto) Eos % (Auto) Baso % (Auto) Neut # (Auto) Lymph # (Auto) [place]per # (Auto) Eos # (Auto) Baso # (Auto) PT INR APTT pCO2 pO2 26 L HCO3 ABG pH ABG Total CO2 ABG O2 Saturation ABG Base Excess August Test ABG Potassium VBG pH 7.32 VBG pCO2 60 VBG HCO3 25.9 VBG Total CO2 32.7 H VBG O2 Sat (Calc) 60.2 VBG Base Excess 3.2 H VBG Potassium 5.2 A-a O2 Difference Sodium 137.0 Chloride 108.0 H Glucose 341 H Lactate 1.8 Vent Mode Mechanical Rate FiO2 50.0 Tidal Volume PEEP 5 Potassium Carbon Dioxide Anion Gap BUN Creatinine Est GFR ( Amer) Est GFR (Non-Af Amer) Random Glucose Calcium Phosphorus Magnesium Total Bilirubin Direct Bilirubin AST ALT Alkaline Phosphatase Lactate Dehydrogenase Troponin I 0.1160 Total Protein Albumin Globulin Albumin/Globulin Ratio Arterial Blood Potassium Venous Blood Potassium 5.2 07/13/18 07/13/18 07/13/18 17:10 17:10 22:40 WBC RBC Hgb Hct MCV MCH MCHC RDW Plt Count MPV Neut % (Auto) Lymph % (Auto) [place]per % (Auto) Eos % (Auto) Baso % (Auto) Neut # (Auto) Lymph # (Auto) [place]per # (Auto) Eos # (Auto) Baso # (Auto) PT 12.5 INR 1.1 APTT 31.5 pCO2 pO2 HCO3 ABG pH ABG Total CO2 ABG O2 Saturation ABG Base Excess August Test ABG Potassium VBG pH VBG pCO2 VBG HCO3 VBG Total CO2 VBG O2 Sat (Calc) VBG Base Excess VBG Potassium A-a O2 Difference Sodium 139 139 Chloride 105 104 Glucose Lactate Vent Mode Mechanical Rate FiO2 Tidal Volume PEEP Potassium 5.1 H 5.0 Carbon Dioxide 31 H 31 H Anion Gap 8 L 9 L BUN 33 H 35 H Creatinine 1.7 H 1.9 H Est GFR ( Amer) 35 31 Est GFR (Non-Af Amer) 29 25 Random Glucose 312 H 223 H Calcium 8.8 9.0 Phosphorus 3.1 Magnesium 2.1 2.2 Total Bilirubin 0.7 Direct Bilirubin 0.0 AST 396 H ALT 183 H Alkaline Phosphatase 90 Lactate Dehydrogenase 1960 H Troponin I 0.1140 2.4100 H* Total Protein 6.0 L Albumin 2.7 L Globulin 3.3 Albumin/Globulin Ratio 0.8 L Arterial Blood Potassium Venous Blood Potassium 07/13/18 07/13/18 07/13/18 22:40 22:40 23:11 WBC 11.3 H RBC 2.86 L Hgb 9.1 L Hct 27.4 L MCV 95.9 MCH 31.7 H MCHC 33.0 RDW 14.1 Plt Count 163 MPV Neut % (Auto) Lymph % (Auto) [place] % (Auto) Eos % (Auto) Baso % (Auto) Neut # (Auto) Lymph # (Auto) [place] # (Auto) Eos # (Auto) Baso # (Auto) PT 12.2 INR 1.1 APTT 30.6 pCO2 pO2 HCO3 ABG pH ABG Total CO2 ABG O2 Saturation ABG Base Excess August Test ABG Potassium VBG pH VBG pCO2 VBG HCO3 VBG Total CO2 VBG O2 Sat (Calc) VBG Base Excess VBG Potassium A-a O2 Difference Sodium Chloride Glucose Lactate Vent Mode Mechanical Rate FiO2 Tidal Volume PEEP Potassium Carbon Dioxide Anion Gap BUN Creatinine Est GFR ( Amer) Est GFR (Non-Af Amer) Random Glucose Calcium Phosphorus Magnesium Total Bilirubin 0.6 Direct Bilirubin 0.0 AST 405 H ALT 230 H D Alkaline Phosphatase 90 Lactate Dehydrogenase Troponin I Total Protein 6.1 L Albumin 2.9 L Globulin 3.3 Albumin/Globulin Ratio 0.9 L Arterial Blood Potassium Venous Blood Potassium 07/13/18 07/14/18 07/14/18 23:21 04:00 04:45 WBC 8.8 RBC 2.79 L Hgb 8.9 L Hct 26.6 L MCV 95.2 MCH 32.0 H MCHC 33.6 RDW 14.3 Plt Count 156 MPV 8.9 Neut % (Auto) 82.5 H Lymph % (Auto) 10.5 L [place] % (Auto) 6.3 Eos % (Auto) 0.6 Baso % (Auto) 0.1 Neut # (Auto) 7.3 H Lymph # (Auto) 0.9 L [place] # (Auto) 0.6 Eos # (Auto) 0.1 Baso # (Auto) 0.0 PT INR APTT pCO2 37 41 pO2 147 H 118 H HCO3 28.1 H 25.8 ABG pH 7.48 H 7.41 ABG Total CO2 28.7 H 27.3 ABG O2 Saturation 96.6 96.1 ABG Base Excess 4.0 H 1.2 August Test Yes Yes ABG Potassium 4.7 4.8 VBG pH VBG pCO2 VBG HCO3 VBG Total CO2 VBG O2 Sat (Calc) VBG Base Excess VBG Potassium A-a O2 Difference 163.0 116.0 Sodium 137.0 137.0 Chloride 109.0 H 109.0 H Glucose 225 H 205 H Lactate 1.2 1.1 Vent Mode A/c A/c Mechanical Rate 12 12 FiO2 50.0 40.0 Tidal Volume 500 500 PEEP 5 5 Potassium Carbon Dioxide Anion Gap BUN Creatinine Est GFR ( Amer) Est GFR (Non-Af Amer) Random Glucose Calcium Phosphorus Magnesium Total Bilirubin Direct Bilirubin AST ALT Alkaline Phosphatase Lactate Dehydrogenase Troponin I Total Protein Albumin Globulin Albumin/Globulin Ratio Arterial Blood Potassium 4.7 4.8 Venous Blood Potassium 07/14/18 07/14/18 04:45 04:45 WBC RBC Hgb Hct MCV MCH MCHC RDW Plt Count MPV Neut % (Auto) Lymph % (Auto) [place] % (Auto) Eos % (Auto) Baso % (Auto) Neut # (Auto) Lymph # (Auto) [place] # (Auto) Eos # (Auto) Baso # (Auto) PT 12.5 INR 1.1 APTT 29.9 pCO2 pO2 HCO3 ABG pH ABG Total CO2 ABG O2 Saturation ABG Base Excess August Test ABG Potassium VBG pH VBG pCO2 VBG HCO3 VBG Total CO2 VBG O2 Sat (Calc) VBG Base Excess VBG Potassium A-a O2 Difference Sodium 139 Chloride 105 Glucose Lactate Vent Mode Mechanical Rate FiO2 Tidal Volume PEEP Potassium 4.9 Carbon Dioxide 29 Anion Gap 10 BUN 35 H Creatinine 2.0 H Est GFR ( Amer) 29 Est GFR (Non-Af Amer) 24 Random Glucose 193 H Calcium 8.8 Phosphorus 2.7 Magnesium 2.1 Total Bilirubin 0.8 Direct Bilirubin 0.0 AST 365 H ALT 156 H D Alkaline Phosphatase 84 Lactate Dehydrogenase Troponin I 48.4000 H* Total Protein 6.2 L Albumin 2.7 L Globulin 3.4 Albumin/Globulin Ratio 0.8 L Arterial Blood Potassium Venous Blood Potassium Fingerstick Blood Sugar Results: 242 Critical Care Progress Note - Nutrition Nutrition: Nutrition Category Date Time Status Consistent Carbohydrate [DIET] Diets 07/12/18 Lunch Active Assessment/Plan - Assessment and Plan (Free Text) Assessment: Patient is an 78 y/o female with pmhx of DMII, HTN, CKD, CVA admitted with complaints of chest pain, who was found on the floors unresponsive without a pulse after vomiting episode. AROSC was acheived, patient was intubated, and transferred to ICU where she is now undergoing therapeutic hypothermia. #AMS -GCS 4, no change -May be secondary to anoxic encephalopathy -Will continue to monitor w/ frequent neuro checks #S/P Cardiac Resuscitation -C/W post cardiac arrest care- Therapeutic Hypothermia, optimize ventilation, optimize glucose control, Serial labs -C/W Mechanical Ventilation for respiratory support #Troponemia -May be NSTEMI vs Myocardial Contusion secondary to CPR -Cardiology aware, Dr. Napoles, will trend Troponin and EKG -Medical management for now, ASA thru NG tube #UTI -UCx + for E.Coli sens to Zosyn -C/W ABX #HTN -Normotensive -all po meds held #DMII -Controlled -Moderate coverage scale -Accuchecks -D5 fluids #Hyperkalemia -repleted -f/u BMP #PPI for GI Ulcer PPX #SCD for DVT ppx for now, will start anticoagulant when at normal temp Full Code Discussed case with Dr. Salazar <Duran Salazar - Last Filed: 07/14/18 18:10> CCU Subjective - Physician Review Subjective (Free Text): Attestation: Patient seen and examined at the bedside with Resident Dr. Charles Hart; and I agree with her outline of plans and management documented below as discussed on AM rounds reflecting my review of all applicable clinical data, and participation in the care of the patient throughout the day in ICU; today, July 14, 2018. Time spent with this patient did not overlap with any other provider's medical or critical care time. Additionally the code selected for the services rendered in this note includes the time spent: talking to the patients family, associated physicians and reviewing hospital data/results not listed here which extended to a total of 40 minutes of critical care. Discussed current clinical condition with patients daughter Chela. Patient at 34C and presently in the re-warming phase, on Propofol drip. Hemodynamics have not been problematic and IV Vasopressors were stopped this AM, and ensured MAP levels have been at or above 80 mmHg. Will maintain Neurochecks, seizure precautions, and HOB elevation post warming and watch for and to avoid any fevers that may arise. Prognostication cannot be done until after re-warming and 72H after ROSC. Aware that daughter may want to withdrawal patient from MV support, if she shows no signs of awakening or [employer] LENS improvement. At the 34-35C level of the re-warming phase, patient opened eyes and followed simple commands in [place] to grasp hands bilaterally. She is off Propofol.
[2018-07-14] MEDS ORDERED: Sodium Chloride 0.9% 1,000 ML IV SCH (11:26)
[2018-07-14] MEDS: Insulin Regular 100 units/ml SC SCH ×3 (12:00→22:26)
[2018-07-14 12:27] LABS: HEMOGLOBIN 8.4 g/dL (12.0-16.0); MEAN CORPUSCULAR HEMOGLOBIN 31.9 pg (27.0-31.0); MEAN CORPUSCULAR HGB CONC 33.6 g/dL (33.0-37.0); RBC 2.63 Mil/uL (3.80-5.20); RED CELL DISTRIBUTION WIDTH 14.1 % (11.5-14.5); WHITE BLOOD COUNT 7.6 K/uL (4.8-10.8)
[2018-07-14 12:30] LABS: INR 1.1; PROTHROMBIN TIME 12.8 Seconds (9.8-13.1)
[2018-07-14 12:32] LABS: PARTIAL THROMBOPLASTIN TIME 29.9 Seconds (25.6-37.1)
[2018-07-14 12:35] LABS: ALB/GLOB RATIO 0.8 (1.0-2.1); ALBUMIN 2.5 g/dL (3.5-5.0); CALCIUM 8.5 mg/dL (8.4-10.2)
[2018-07-14 12:58] LABS: TROPONIN I 61.1 ng/mL (0.00-0.120)
--- NOTE | 2018-07-14 16:30 | CP.PCM.PN ---
Subjective - Date & Time of Evaluation Date of Evaluation: 07/14/18 Time of Evaluation: 13:00 - Subjective Subjective: F/U Respiratory Failure. Pt intubated, unresponsive, family at bedside. Objective - Vital Signs/Intake and Output Vital Signs (last 24 hours): Temp Pulse Resp BP Pulse Ox 94.0 F L 66 17 126/52 L 100 07/14/18 15:00 07/14/18 15:00 07/14/18 15:00 07/14/18 15:00 07/14/18 15:00 Intake and Output: 07/14/18 07/14/18 06:59 18:59 Intake Total 1140 3270 Output Total 100 Balance 1040 3270 - Medications Medications: Current Medications Acetaminophen (Tylenol 650mg/20.3ml Solution Ud) 975 mg NG Q6 PRN PRN Reason: Rigors Alprazolam (Xanax) 0.25 mg PO Q12 PRN PRN Reason: Anxiety Stop: 07/18/18 08:59 Aspirin (Aspirin Chewable) 81 mg NG DAILY [facility] Last Admin: 07/14/18 09:31 Dose: 81 mg Atorvastatin Calcium (Lipitor) 40 mg PO HS [facility] Last Admin: 07/12/18 21:23 Dose: 40 mg Carvedilol (Coreg) 3.125 mg PO Q12 [facility] Last Admin: 07/13/18 11:20 Dose: Not Given Ferrous Sulfate (Feosol) 325 mg PO DAILY [facility] Last Admin: 07/13/18 11:20 Dose: Not Given Home Med (Patient's Own Medication) 10 unit SC ACBD [facility] Last Admin: 07/12/18 17:01 Dose: Not Given Norepinephrine Bitartrate 4 mg (/ Dextrose) 254 mls @ 9.53 mls/hr IV .Q24H [facility]; Protocol Last Titration: 07/14/18 08:46 Dose: 0 mcg/min, 0 mls/hr Piperacillin Sod/Tazobactam (Sod 2.25 gm/ Sodium Chloride) 100 mls @ 100 mls/hr IVPB Q6 [facility]; Protocol Last Admin: 07/14/18 09:30 Dose: 100 mls/hr Insulin Human Regular (Humulin R) 0 units SC ACCU-CHECK [facility]; Protocol Last Admin: 07/13/18 23:36 Dose: Not Given Ondansetron HCl (Zofran Inj) 4 mg IVP Q4 PRN PRN Reason: Nausea/Vomiting Last Admin: 07/12/18 23:31 Dose: 4 mg Pantoprazole Sodium (Protonix Inj) 40 mg IVP DAILY [facility] Last Admin: 07/14/18 09:31 Dose: 40 mg Phenazopyridine HCl (Pyridium) 200 mg PO TID [facility] Last Admin: 07/13/18 11:23 Dose: Not Given Ranolazine (Ranexa) 1,000 mg PO BID [facility] Last Admin: 07/13/18 11:23 Dose: Not Given - Labs Labs: 07/14/18 12:18 07/14/18 12:18 PT 12.8 Seconds (9.8-13.1) 07/14/18 12:18 INR 1.1 07/14/18 12:18 APTT 29.9 Seconds (25.6-37.1) 07/14/18 12:18 - Constitutional Appears: Chronically Ill, Other (Intubated) - Head Exam Head Exam: NORMAL INSPECTION - Eye Exam Additional comments: sluggish reaction on R eye. 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 - ENT Exam Additional comments: Intubated. Hard of hearing R side. - Neck Exam Neck Exam: Normal Inspection - Respiratory Exam Respiratory Exam: Decreased Breath Sounds (at bases), Rhonchi - Cardiovascular Exam Cardiovascular Exam: REGULAR RHYTHM, Murmur (systolic) - GI/Abdominal Exam GI & Abdominal Exam: Soft - Extremities Exam Additional comments: Edema extremities, L TMA - Neurological Exam Additional comments: Intubated, unresponsive. - Psychiatric Exam Additional comments: Sedated - Skin Skin Exam: Warm Assessment and Plan (1) Respiratory failure Status: Acute (2) Cardiac arrest Status: Acute (3) Elevated troponin Status: Acute (4) Toxic metabolic encephalopathy Status: Acute (5) Chest pain Status: Acute (6) UTI (urinary tract infection) Status: Acute (7) Type 2 diabetes mellitus with hyperglycemia Status: Chronic (8) CKD (chronic kidney disease) Status: Chronic (9) HTN (hypertension) Status: Chronic (10) CAD (coronary artery disease) Status: Chronic (11) Hx of CABG Status: Chronic (12) Hypercholesterolemia Status: Chronic (13) Chronic low back pain Status: Chronic (14) Generalized weakness Status: Chronic (15) Anxiety Status: Chronic - Assessment and Plan (Free Text) Plan: Continue mechanical ventilator support, Diprivan, ASA, Coreg, Detroxe, Protonic, Sodium Chl and rest of Tx. Critical care time: 33 min.
--- NOTE | 2018-07-14 16:59 | CARD ---
APPROVED REPORT Date of service: 07/14/2018 EKG Measurement Heart [id number] <Conclusion> Sinus bradycardia Nonspecific ST and T wave abnormality Abnormal ECG
[2018-07-14] MEDS ORDERED: Propofol 10 mg/ml 1,000 MG/100 ML VIAL IV SCH (22:15)
[2018-07-15] MEDS: Sodium Chloride 0.9% 1,000 ML IV SCH (01:25)
[2018-07-15 05:20] LABS: ABG ALLEN TEST YES; ARTERIAL BLOOD GAS HCO3 18.6 mmol/L (21-28); ARTERIAL BLOOD GAS HEMOGLOBIN 7.5 g/dL (11.7-17.4); ARTERIAL BLOOD GAS O2 CAPACITY 10.8 mL/dL (16-24); ARTERIAL BLOOD GAS O2 CONTENT 10.6 ML/dL (15-23); ARTERIAL BLOOD GAS O2 SAT 97.7 % (95-98); ARTERIAL BLOOD GAS PCO2 27 mm/Hg (35-45); ARTERIAL BLOOD GAS PH 7.38 (7.35-7.45); ARTERIAL BLOOD GAS PO2 145 mm/Hg (80-100); ARTERIAL BLOOD GAS TCO2 16.8 mmol/L (22-28)
[2018-07-15 05:53] LABS: HEMOGLOBIN 7.5 g/dL (12.0-16.0); MEAN CELL VOLUME 96.4 fl (81.0-99.0); MEAN CORPUSCULAR HEMOGLOBIN 31.8 pg (27.0-31.0); MEAN CORPUSCULAR HGB CONC 32.9 g/dL (33.0-37.0); RBC 2.35 Mil/uL (3.80-5.20); RED CELL DISTRIBUTION WIDTH 14.5 % (11.5-14.5); WHITE BLOOD COUNT 6.8 K/uL (4.8-10.8)
[2018-07-15 06:42] LABS: ALB/GLOB RATIO 0.8 (1.0-2.1); ALBUMIN 2.3 g/dL (3.5-5.0); CALCIUM 8.2 mg/dL (8.4-10.2)
--- NOTE | 2018-07-15 07:49 | RAD ---
Date of service: 07/15/2018 PROCEDURE: CHEST RADIOGRAPH, 1 VIEW HISTORY: intubated, post code blue COMPARISON: Portable chest 07/14/2018. FINDINGS: LUNGS: Endotracheal tube does not appear significantly changed in position with nasogastric tube again identified entering into the abdomen. Likely atelectasis persists at the right base with left hemidiaphragm obscured suggesting the same. Interval left basilar infiltrate not completely excluded. Limited linear atelectasis left perihilar region. PLEURA: No right pleural effusion or pneumothorax bilaterally. Small pleural effusion may be developing obscuring the left costophrenic sulcus. CARDIOVASCULAR: Cardiac size remains normal. No definite pulmonary vascular congestion. Calcific atherosclerotic changes are seen related to the thoracic aorta. OSSEOUS STRUCTURES: Sternotomy wires reiterated. VISUALIZED UPPER ABDOMEN: Surgical clips reiterated right upper quadrant abdomen. OTHER FINDINGS: None. IMPRESSION: Distal right basilar atelectasis with likely atelectasis now obscuring left hemidiaphragm. Underlying infiltrate not excluded here. Trace left pleural effusion suspected. Stable appearing endotracheal and nasogastric tubes.
[2018-07-15] MEDS: Insulin Regular 100 units/ml SC SCH ×3 (11:09→23:31)
--- NOTE | 2018-07-15 11:47 | CP.CCUPN ---
Addendum entered and electronically signed by Salomon Hart MD 07/15/18 16:37: S/P transfusion of 1 unit PRBC for Hg 7.5 Addendum entered and electronically signed by Salomon Hart MD 07/15/18 16:31: After extubation, pt complained of sharp chest pain, was relieved after Nitroglycerin paste and Morphine. Original Note: <Salomon Hart - Last Filed: 07/15/18 15:12> CCU Subjective - Physician Review Subjective (Free Text): Patient is an 78 y/o female with pmhx of DMII, HTN, CKD, CVA admitted with complaints of chest pain, who was found on the floors unresponsive without a pulse after vomiting episode. AROSC was acheived, patient was intubated, and transferred to ICU where she is now undergoing therapeutic hypothermia. Overnight events: Spiked fever of 100.3, given Tylenol. Cooling blankets placed in the morning to avoid fevers. S: Pt seen and examined in the am. Family at bedside. Pt is awake, eyes open, following commands. Spontaneous breathing trials completed with patient on CPAP for ~2 hours and no signs of respiratory distress. Successfully extubated. CCU Objective - Vital Signs / Intake & Output Vital Signs (Last 4 hours): Vital Signs Temp Pulse Resp BP Pulse Ox 07/15/18 11:16 98.9 F 79 21 134/68 07/15/18 10:55 99.0 F 79 25 H 132/66 07/15/18 09:43 101/86 07/15/18 08:00 100.1 F H 80 15 119/61 100 Intake and Output (Last 8hrs): Intake & Output 07/14/18 07/15/18 07/15/18 22:59 06:59 14:59 Intake Total 1700 1320 400 Output Total 300 350 Balance 1400 970 400 Intake: IV 1500 1220 300 Intake, Piggyback 200 100 100 Blood Product 0 Red Blood Cells Cpd As1 0 Lr Unit [id number] Output: Urine 300 350 Urethral (Méndez) 300 350 - Physical Exam Physical Exam Limitations: Negative for: Altered Mental Status Pupils: Positive for: PERRL Extroacular Muscles: Positive for: EOMI Conjunctiva: Positive for: Normal Mouth: Positive for: Moist Mucous Membranes Pharnyx: Positive for: Other Neck: Negative for: JVD Respiratory/Chest: Positive for: Clear to Auscultation. Negative for: Respiratory Distress, Rales, Rhonchi Cardiovascular: Positive for: Peripheal Pulses Present, Tachycardic Abdomen: Positive for: Normal Bowel Sounds. Negative for: Distention Upper Extremity: Positive for: Edema, NORMAL PULSES. Negative for: Cyanosis Lower Extremity: Positive for: Edema, NORMAL PULSES, Other (+TLD R. Femoral) Skin: Positive for: Pale Psychiatric: Negative for: Alert - Medications Active Medications: Active Medications Generic Name Dose Route Start Last Admin Trade Name Freq PRN Reason Stop Dose Admin Acetaminophen 975 mg 07/13/18 11:03 07/15/18 04:33 Tylenol 650mg/20.3ml Solution Ud NG 975 mg Q6 PRN Administration Rigors Alprazolam 0.25 mg 07/11/18 08:58 Xanax PO 07/18/18 08:59 Q12 PRN Anxiety Aspirin 81 mg 07/14/18 09:00 07/15/18 08:03 Aspirin Chewable NG 81 mg DAILY EVA Administration Atorvastatin Calcium 40 mg 07/11/18 22:00 07/12/18 21:23 Lipitor PO 40 mg HS EVA Administration Carvedilol 3.125 mg 07/11/18 09:15 07/13/18 11:20 Coreg PO Not Given Q12 EVA Ferrous Sulfate 325 mg 07/11/18 09:00 07/13/18 11:20 Feosol PO Not Given DAILY EVA Home Med 10 unit 07/12/18 07:30 07/12/18 17:01 Patient's Own Medication SC Not Given ACBD EVA Piperacillin Sod/Tazobactam 100 mls @ 100 mls/hr 07/13/18 22:45 07/15/18 10:00 Sod 2.25 gm/ Sodium Chloride IVPB 100 mls/hr Q6 EVA Administration Protocol Sodium Chloride 1,000 mls @ 150 mls/hr 07/14/18 18:15 07/15/18 01:25 Sodium Chloride 0.9% IV 07/15/18 18:12 150 mls/hr .[id number] EVA Administration Propofol 1,000 mg in 100 mls @ 2.545 mls/hr 07/14/18 22:15 07/15/18 09:59 Diprivan IV 07/15/18 22:04 0 mcg/kg/min .Q24H EVA 0 mls/hr Titration Protocol 5 MCG/KG/MIN Insulin Human Regular 0 units 07/13/18 23:00 07/15/18 11:09 Humulin R SC 6 units ACCU-CHECK EVA Administration Protocol Nitroglycerin 1 ea 07/15/18 16:00 Nitro-Bid 2% Oint TOP Q6 EVA Ondansetron HCl 4 mg 07/12/18 23:11 07/12/18 23:31 Zofran Inj IVP 4 mg Q4 PRN Administration Nausea/Vomiting Pantoprazole Sodium 40 mg 07/13/18 12:30 07/15/18 09:43 Protonix Inj IVP 40 mg DAILY EVA Administration Phenazopyridine HCl 200 mg 07/11/18 13:00 07/13/18 11:23 Pyridium PO Not Given TID EVA Ranolazine 1,000 mg 07/11/18 17:00 07/13/18 11:23 Ranexa PO Not Given BID [facility] - Patient Studies Lab Studies: Microbiology Studies 07/14/18 02:17 Blood Culture - Preliminary Blood-Thru Central Line NO GROWTH AFTER 24 HOURS 07/14/18 02:00 Blood Culture - Preliminary Blood-Thru Central Line NO GROWTH AFTER 24 HOURS 07/11/18 01:20 Blood Culture - Preliminary Blood NO GROWTH AFTER 4 DAYS 07/11/18 00:56 Blood Culture - Preliminary Blood NO GROWTH AFTER 4 DAYS 07/11/18 16:23 Blood Culture - Preliminary Blood NO GROWTH AFTER 3 DAYS 07/11/18 16:33 Blood Culture - Preliminary Blood NO GROWTH AFTER 3 DAYS Lab Studies 07/15/18 07/15/18 07/15/18 Range/Units 08:37 07:47 07:47 WBC (4.8-10.8) K/uL RBC (3.80-5.20) Mil/uL Hgb (12.0-16.0) g/dL Hct (34.0-47.0) % MCV (81.0-99.0) fl MCH (27.0-31.0) pg MCHC (33.0-37.0) g/dL RDW (11.5-14.5) % Plt Count (130-400) K/uL PT (9.8-13.1) Seconds INR APTT (25.6-37.1) Seconds pCO2 (35-45) mm/Hg pO2 (80-100) mm/Hg HCO3 (21-28) mmol/L ABG pH (7.35-7.45) ABG Total CO2 (22-28) mmol/L ABG O2 Saturation (95-98) % ABG O2 Content (15-23) ML/dL ABG Base Excess (-2.0-3.0) mmol/L ABG Hemoglobin (11.7-17.4) g/dL ABG Carboxyhemoglobin (0.5-1.5) % POC ABG HHb (Measured) (0.0-5.0) % ABG Methemoglobin (0.0-3.0) % ABG O2 Capacity (16-24) mL/dL August Test A-a O2 Difference mm/Hg Hgb O2 Saturation (95.0-98.0) % Vent Mode Mechanical Rate FiO2 % Tidal Volume PEEP Sodium 141 (132-148) mmol/l Potassium 4.5 (3.6-5.0) MMOL/L Chloride 114 H (98-107) mmol/L Carbon Dioxide 19 L (22-30) mmol/L Anion Gap 13 (10-20) BUN 31 H (7-17) mg/dl Creatinine 2.0 H (0.7-1.2) mg/dl Est GFR ( Amer) 29 Est GFR (Non-Af Amer) 24 POC Glucose (mg/dL) (65-110) mg/dL Random Glucose 224 H (65-105) mg/dL Lactic Acid 1.0 (0.7-2.1) MMOL/L Calcium 8.0 L (8.4-10.2) mg/dL Magnesium (1.6-2.3) MG/DL Total Bilirubin (0.2-1.3) mg/dl Direct Bilirubin (0.0-0.4) mg/ml AST (14-36) U/L ALT (9-52) U/L Alkaline Phosphatase (38-126) U/L Troponin I (0.00-0.120) ng/mL Total Protein (6.3-8.2) G/DL Albumin (3.5-5.0) g/dL Globulin (2.2-3.9) gm/dL Albumin/Globulin Ratio (1.0-2.1) Blood Type O POSITIVE Antibody Screen Negative Crossmatch See Detail BBK History Checked Patient has bt 07/15/18 07/15/18 07/15/18 Range/Units 05:05 05:00 05:00 WBC 6.8 (4.8-10.8) K/uL RBC 2.35 L (3.80-5.20) Mil/uL Hgb 7.5 L (12.0-16.0) g/dL Hct 22.7 L (34.0-47.0) % MCV 96.4 (81.0-99.0) fl MCH 31.8 H (27.0-31.0) pg MCHC 32.9 L (33.0-37.0) g/dL RDW 14.5 (11.5-14.5) % Plt Count 138 (130-400) K/uL PT (9.8-13.1) Seconds INR APTT (25.6-37.1) Seconds pCO2 27 L (35-45) mm/Hg pO2 145 H (80-100) mm/Hg HCO3 18.6 L (21-28) mmol/L ABG pH 7.38 (7.35-7.45) ABG Total CO2 16.8 L (22-28) mmol/L ABG O2 Saturation 97.7 (95-98) % ABG O2 Content 10.6 L (15-23) ML/dL ABG Base Excess -8.2 L (-2.0-3.0) mmol/L ABG Hemoglobin 7.5 L (11.7-17.4) g/dL ABG Carboxyhemoglobin 0 L (0.5-1.5) % POC ABG HHb (Measured) 2.3 (0.0-5.0) % ABG Methemoglobin 0.0 (0.0-3.0) % ABG O2 Capacity 10.8 L (16-24) mL/dL August Test Yes A-a O2 Difference 106.0 mm/Hg Hgb O2 Saturation 97.7 (95.0-98.0) % Vent Mode A/c Mechanical Rate 12 FiO2 40.0 % Tidal Volume 500 PEEP 5 Sodium 142 (132-148) mmol/l Potassium 4.6 (3.6-5.0) MMOL/L Chloride 114 H (98-107) mmol/L Carbon Dioxide 19 L (22-30) mmol/L Anion Gap 14 (10-20) BUN 31 H (7-17) mg/dl Creatinine 2.0 H (0.7-1.2) mg/dl Est GFR ( Amer) 29 Est GFR (Non-Af Amer) 24 POC Glucose (mg/dL) (65-110) mg/dL Random Glucose 168 H (65-105) mg/dL Lactic Acid (0.7-2.1) MMOL/L Calcium 8.2 L (8.4-10.2) mg/dL Magnesium 2.0 (1.6-2.3) MG/DL Total Bilirubin 0.5 (0.2-1.3) mg/dl Direct Bilirubin (0.0-0.4) mg/ml AST 197 H D (14-36) U/L ALT 104 H D (9-52) U/L Alkaline Phosphatase 70 (38-126) U/L Troponin I (0.00-0.120) ng/mL Total Protein 5.3 L (6.3-8.2) G/DL Albumin 2.3 L (3.5-5.0) g/dL Globulin 3.0 (2.2-3.9) gm/dL Albumin/Globulin Ratio 0.8 L (1.0-2.1) Blood Type Antibody Screen Crossmatch BBK History Checked 07/14/18 07/14/18 07/14/18 Range/Units 21:55 16:02 12:18 WBC (4.8-10.8) K/uL RBC (3.80-5.20) Mil/uL Hgb (12.0-16.0) g/dL Hct (34.0-47.0) % MCV (81.0-99.0) fl MCH (27.0-31.0) pg MCHC (33.0-37.0) g/dL RDW (11.5-14.5) % Plt Count (130-400) K/uL PT (9.8-13.1) Seconds INR APTT (25.6-37.1) Seconds pCO2 (35-45) mm/Hg pO2 (80-100) mm/Hg HCO3 (21-28) mmol/L ABG pH (7.35-7.45) ABG Total CO2 (22-28) mmol/L ABG O2 Saturation (95-98) % ABG O2 Content (15-23) ML/dL ABG Base Excess (-2.0-3.0) mmol/L ABG Hemoglobin (11.7-17.4) g/dL ABG Carboxyhemoglobin (0.5-1.5) % POC ABG HHb (Measured) (0.0-5.0) % ABG Methemoglobin (0.0-3.0) % ABG O2 Capacity (16-24) mL/dL August Test A-a O2 Difference mm/Hg Hgb O2 Saturation (95.0-98.0) % Vent Mode Mechanical Rate FiO2 % Tidal Volume PEEP Sodium (132-148) mmol/l Potassium (3.6-5.0) MMOL/L Chloride (98-107) mmol/L Carbon Dioxide (22-30) mmol/L Anion Gap (10-20) BUN (7-17) mg/dl Creatinine (0.7-1.2) mg/dl Est GFR ( Amer) Est GFR (Non-Af Amer) POC Glucose (mg/dL) 177 H 165 H (65-110) mg/dL Random Glucose (65-105) mg/dL Lactic Acid 1.0 (0.7-2.1) MMOL/L Calcium (8.4-10.2) mg/dL Magnesium (1.6-2.3) MG/DL Total Bilirubin (0.2-1.3) mg/dl Direct Bilirubin (0.0-0.4) mg/ml AST (14-36) U/L ALT (9-52) U/L Alkaline Phosphatase (38-126) U/L Troponin I (0.00-0.120) ng/mL Total Protein (6.3-8.2) G/DL Albumin (3.5-5.0) g/dL Globulin (2.2-3.9) gm/dL Albumin/Globulin Ratio (1.0-2.1) Blood Type Antibody Screen Crossmatch BBK History Checked 07/14/18 07/14/18 07/14/18 Range/Units 12:18 12:18 12:18 WBC 7.6 (4.8-10.8) K/uL RBC 2.63 L (3.80-5.20) Mil/uL Hgb 8.4 L (12.0-16.0) g/dL Hct 25.0 L (34.0-47.0) % MCV 95.0 (81.0-99.0) fl MCH 31.9 H (27.0-31.0) pg MCHC 33.6 (33.0-37.0) g/dL RDW 14.1 (11.5-14.5) % Plt Count 136 (130-400) K/uL PT 12.8 (9.8-13.1) Seconds INR 1.1 APTT 29.9 (25.6-37.1) Seconds pCO2 (35-45) mm/Hg pO2 (80-100) mm/Hg HCO3 (21-28) mmol/L ABG pH (7.35-7.45) ABG Total CO2 (22-28) mmol/L ABG O2 Saturation (95-98) % ABG O2 Content (15-23) ML/dL ABG Base Excess (-2.0-3.0) mmol/L ABG Hemoglobin (11.7-17.4) g/dL ABG Carboxyhemoglobin (0.5-1.5) % POC ABG HHb (Measured) (0.0-5.0) % ABG Methemoglobin (0.0-3.0) % ABG O2 Capacity (16-24) mL/dL August Test A-a O2 Difference mm/Hg Hgb O2 Saturation (95.0-98.0) % Vent Mode Mechanical Rate FiO2 % Tidal Volume PEEP Sodium 139 (132-148) mmol/l Potassium 4.7 (3.6-5.0) MMOL/L Chloride 106 (98-107) mmol/L Carbon Dioxide 29 (22-30) mmol/L Anion Gap 9 L (10-20) BUN 35 H (7-17) mg/dl Creatinine 1.9 H (0.7-1.2) mg/dl Est GFR ( Amer) 31 Est GFR (Non-Af Amer) 25 POC Glucose (mg/dL) (65-110) mg/dL Random Glucose 174 H (65-105) mg/dL Lactic Acid (0.7-2.1) MMOL/L Calcium 8.5 (8.4-10.2) mg/dL Magnesium 2.1 (1.6-2.3) MG/DL Total Bilirubin 0.6 (0.2-1.3) mg/dl Direct Bilirubin 0.0 (0.0-0.4) mg/ml AST 312 H (14-36) U/L ALT 137 H (9-52) U/L Alkaline Phosphatase 73 (38-126) U/L Troponin I 61.1000 H* (0.00-0.120) ng/mL Total Protein 5.7 L (6.3-8.2) G/DL Albumin 2.5 L (3.5-5.0) g/dL Globulin 3.2 (2.2-3.9) gm/dL Albumin/Globulin Ratio 0.8 L (1.0-2.1) Blood Type Antibody Screen Crossmatch BBK History Checked 07/14/18 07/14/18 07/13/18 Range/Units 11:07 05:12 20:56 WBC (4.8-10.8) K/uL RBC (3.80-5.20) Mil/uL Hgb (12.0-16.0) g/dL Hct (34.0-47.0) % MCV (81.0-99.0) fl MCH (27.0-31.0) pg MCHC (33.0-37.0) g/dL RDW (11.5-14.5) % Plt Count (130-400) K/uL PT (9.8-13.1) Seconds INR APTT (25.6-37.1) Seconds pCO2 (35-45) mm/Hg pO2 (80-100) mm/Hg HCO3 (21-28) mmol/L ABG pH (7.35-7.45) ABG Total CO2 (22-28) mmol/L ABG O2 Saturation (95-98) % ABG O2 Content (15-23) ML/dL ABG Base Excess (-2.0-3.0) mmol/L ABG Hemoglobin (11.7-17.4) g/dL ABG Carboxyhemoglobin (0.5-1.5) % POC ABG HHb (Measured) (0.0-5.0) % ABG Methemoglobin (0.0-3.0) % ABG O2 Capacity (16-24) mL/dL August Test A-a O2 Difference mm/Hg Hgb O2 Saturation (95.0-98.0) % Vent Mode Mechanical Rate FiO2 % Tidal Volume PEEP Sodium (132-148) mmol/l Potassium (3.6-5.0) MMOL/L Chloride (98-107) mmol/L Carbon Dioxide (22-30) mmol/L Anion Gap (10-20) BUN (7-17) mg/dl Creatinine (0.7-1.2) mg/dl Est GFR ( Amer) Est GFR (Non-Af Amer) POC Glucose (mg/dL) 186 H 242 H 232 H (65-110) mg/dL Random Glucose (65-105) mg/dL Lactic Acid (0.7-2.1) MMOL/L Calcium (8.4-10.2) mg/dL Magnesium (1.6-2.3) MG/DL Total Bilirubin (0.2-1.3) mg/dl Direct Bilirubin (0.0-0.4) mg/ml AST (14-36) U/L ALT (9-52) U/L Alkaline Phosphatase (38-126) U/L Troponin I (0.00-0.120) ng/mL Total Protein (6.3-8.2) G/DL Albumin (3.5-5.0) g/dL Globulin (2.2-3.9) gm/dL Albumin/Globulin Ratio (1.0-2.1) Blood Type Antibody Screen Crossmatch BBK History Checked 07/13/18 07/13/18 Range/Units 16:25 11:15 WBC (4.8-10.8) K/uL RBC (3.80-5.20) Mil/uL Hgb (12.0-16.0) g/dL Hct (34.0-47.0) % MCV (81.0-99.0) fl MCH (27.0-31.0) pg MCHC (33.0-37.0) g/dL RDW (11.5-14.5) % Plt Count (130-400) K/uL PT (9.8-13.1) Seconds INR APTT (25.6-37.1) Seconds pCO2 (35-45) mm/Hg pO2 (80-100) mm/Hg HCO3 (21-28) mmol/L ABG pH (7.35-7.45) ABG Total CO2 (22-28) mmol/L ABG O2 Saturation (95-98) % ABG O2 Content (15-23) ML/dL ABG Base Excess (-2.0-3.0) mmol/L ABG Hemoglobin (11.7-17.4) g/dL ABG Carboxyhemoglobin (0.5-1.5) % POC ABG HHb (Measured) (0.0-5.0) % ABG Methemoglobin (0.0-3.0) % ABG O2 Capacity (16-24) mL/dL August Test A-a O2 Difference mm/Hg Hgb O2 Saturation (95.0-98.0) % Vent Mode Mechanical Rate FiO2 % Tidal Volume PEEP Sodium (132-148) mmol/l Potassium (3.6-5.0) MMOL/L Chloride (98-107) mmol/L Carbon Dioxide (22-30) mmol/L Anion Gap (10-20) BUN (7-17) mg/dl Creatinine (0.7-1.2) mg/dl Est GFR ( Amer) Est GFR (Non-Af Amer) POC Glucose (mg/dL) 340 H 349 H (65-110) mg/dL Random Glucose (65-105) mg/dL Lactic Acid (0.7-2.1) MMOL/L Calcium (8.4-10.2) mg/dL Magnesium (1.6-2.3) MG/DL Total Bilirubin (0.2-1.3) mg/dl Direct Bilirubin (0.0-0.4) mg/ml AST (14-36) U/L ALT (9-52) U/L Alkaline Phosphatase (38-126) U/L Troponin I (0.00-0.120) ng/mL Total Protein (6.3-8.2) G/DL Albumin (3.5-5.0) g/dL Globulin (2.2-3.9) gm/dL Albumin/Globulin Ratio (1.0-2.1) Blood Type Antibody Screen Crossmatch BBK History Checked Laboratory Results - last 24 hr 07/13/18 07/13/18 07/13/18 11:15 16:25 20:56 WBC RBC Hgb Hct MCV MCH MCHC RDW Plt Count PT INR APTT pCO2 pO2 HCO3 ABG pH ABG Total CO2 ABG O2 Saturation ABG O2 Content ABG Base Excess ABG Hemoglobin ABG Carboxyhemoglobin POC ABG HHb (Measured) ABG Methemoglobin ABG O2 Capacity August Test A-a O2 Difference Hgb O2 Saturation Vent Mode Mechanical Rate FiO2 Tidal Volume PEEP Sodium Potassium Chloride Carbon Dioxide Anion Gap BUN Creatinine Est GFR ( Amer) Est GFR (Non-Af Amer) POC Glucose (mg/dL) 349 H 340 H 232 H Random Glucose Lactic Acid Calcium Magnesium Total Bilirubin Direct Bilirubin AST ALT Alkaline Phosphatase Troponin I Total Protein Albumin Globulin Albumin/Globulin Ratio Blood Type Antibody Screen Crossmatch BBK History Checked 07/14/18 07/14/18 07/14/18 05:12 11:07 12:18 WBC 7.6 RBC 2.63 L Hgb 8.4 L Hct 25.0 L MCV 95.0 MCH 31.9 H MCHC 33.6 RDW 14.1 Plt Count 136 PT INR APTT pCO2 pO2 HCO3 ABG pH ABG Total CO2 ABG O2 Saturation ABG O2 Content ABG Base Excess ABG Hemoglobin ABG Carboxyhemoglobin POC ABG HHb (Measured) ABG Methemoglobin ABG O2 Capacity August Test A-a O2 Difference Hgb O2 Saturation Vent Mode Mechanical Rate FiO2 Tidal Volume PEEP Sodium Potassium Chloride Carbon Dioxide Anion Gap BUN Creatinine Est GFR ( Amer) Est GFR (Non-Af Amer) POC Glucose (mg/dL) 242 H 186 H Random Glucose Lactic Acid Calcium Magnesium Total Bilirubin Direct Bilirubin AST ALT Alkaline Phosphatase Troponin I Total Protein Albumin Globulin Albumin/Globulin Ratio Blood Type Antibody Screen Crossmatch BBK History Checked 07/14/18 07/14/18 07/14/18 12:18 12:18 12:18 WBC RBC Hgb Hct MCV MCH MCHC RDW Plt Count PT 12.8 INR 1.1 APTT 29.9 pCO2 pO2 HCO3 ABG pH ABG Total CO2 ABG O2 Saturation ABG O2 Content ABG Base Excess ABG Hemoglobin ABG Carboxyhemoglobin POC ABG HHb (Measured) ABG Methemoglobin ABG O2 Capacity August Test A-a O2 Difference Hgb O2 Saturation Vent Mode Mechanical Rate FiO2 Tidal Volume PEEP Sodium 139 Potassium 4.7 Chloride 106 Carbon Dioxide 29 Anion Gap 9 L BUN 35 H Creatinine 1.9 H Est GFR ( Amer) 31 Est GFR (Non-Af Amer) 25 POC Glucose (mg/dL) Random Glucose 174 H Lactic Acid 1.0 Calcium 8.5 Magnesium 2.1 Total Bilirubin 0.6 Direct Bilirubin 0.0 AST 312 H ALT 137 H Alkaline Phosphatase 73 Troponin I 61.1000 H* Total Protein 5.7 L Albumin 2.5 L Globulin 3.2 Albumin/Globulin Ratio 0.8 L Blood Type Antibody Screen Crossmatch BBK History Checked 07/14/18 07/14/18 07/15/18 16:02 21:55 05:00 WBC 6.8 RBC 2.35 L Hgb 7.5 L Hct 22.7 L MCV 96.4 MCH 31.8 H MCHC 32.9 L RDW 14.5 Plt Count 138 PT INR APTT pCO2 pO2 HCO3 ABG pH ABG Total CO2 ABG O2 Saturation ABG O2 Content ABG Base Excess ABG Hemoglobin ABG Carboxyhemoglobin POC ABG HHb (Measured) ABG Methemoglobin ABG O2 Capacity August Test A-a O2 Difference Hgb O2 Saturation Vent Mode Mechanical Rate FiO2 Tidal Volume PEEP Sodium Potassium Chloride Carbon Dioxide Anion Gap BUN Creatinine Est GFR ( Amer) Est GFR (Non-Af Amer) POC Glucose (mg/dL) 165 H 177 H Random Glucose Lactic Acid Calcium Magnesium Total Bilirubin Direct Bilirubin AST ALT Alkaline Phosphatase Troponin I Total Protein Albumin Globulin Albumin/Globulin Ratio Blood Type Antibody Screen Crossmatch BBK History Checked 07/15/18 07/15/18 07/15/18 05:00 05:05 07:47 WBC RBC Hgb Hct MCV MCH MCHC RDW Plt Count PT INR APTT pCO2 27 L pO2 145 H HCO3 18.6 L ABG pH 7.38 ABG Total CO2 16.8 L ABG O2 Saturation 97.7 ABG O2 Content 10.6 L ABG Base Excess -8.2 L ABG Hemoglobin 7.5 L ABG Carboxyhemoglobin 0 L POC ABG HHb (Measured) 2.3 ABG Methemoglobin 0.0 ABG O2 Capacity 10.8 L August Test Yes A-a O2 Difference 106.0 Hgb O2 Saturation 97.7 Vent Mode A/c Mechanical Rate 12 FiO2 40.0 Tidal Volume 500 PEEP 5 Sodium 142 141 Potassium 4.6 4.5 Chloride 114 H 114 H Carbon Dioxide 19 L 19 L Anion Gap 14 13 BUN 31 H 31 H Creatinine 2.0 H 2.0 H Est GFR ( Amer) 29 29 Est GFR (Non-Af Amer) 24 24 POC Glucose (mg/dL) Random Glucose 168 H 224 H Lactic Acid Calcium 8.2 L 8.0 L Magnesium 2.0 Total Bilirubin 0.5 Direct Bilirubin AST 197 H D ALT 104 H D Alkaline Phosphatase 70 Troponin I Total Protein 5.3 L Albumin 2.3 L Globulin 3.0 Albumin/Globulin Ratio 0.8 L Blood Type Antibody Screen Crossmatch BBK History Checked 07/15/18 07/15/18 07:47 08:37 WBC RBC Hgb Hct MCV MCH MCHC RDW Plt Count PT INR APTT pCO2 pO2 HCO3 ABG pH ABG Total CO2 ABG O2 Saturation ABG O2 Content ABG Base Excess ABG Hemoglobin ABG Carboxyhemoglobin POC ABG HHb (Measured) ABG Methemoglobin ABG O2 Capacity August Test A-a O2 Difference Hgb O2 Saturation Vent Mode Mechanical Rate FiO2 Tidal Volume PEEP Sodium Potassium Chloride Carbon Dioxide Anion Gap BUN Creatinine Est GFR ( Amer) Est GFR (Non-Af Amer) POC Glucose (mg/dL) Random Glucose Lactic Acid 1.0 Calcium Magnesium Total Bilirubin Direct Bilirubin AST ALT Alkaline Phosphatase Troponin I Total Protein Albumin Globulin Albumin/Globulin Ratio Blood Type O POSITIVE Antibody Screen Negative Crossmatch See Detail BBK History Checked Patient has bt Fingerstick Blood Sugar Results: 251 Critical Care Progress Note - Nutrition Nutrition: Nutrition Category Date Time Status NPO Diet [DIET] Diets 07/14/18 Breakfast Active Assessment/Plan - Assessment and Plan (Free Text) Assessment: Patient is an 78 y/o female with pmhx of DMII, HTN, CKD, CVA admitted with complaints of chest pain, who was found on the floors unresponsive without a pulse after vomiting episode. AROSC was acheived, pt was intubated and placed on mechanical ventilation,and post cardiac arrest theraputic cooling completed. Today, pt is awake and alert and passed spontaneous breathing trials so she was extubated successfully. #AMS -Resolved -GCS 15, [id number] #S/P Cardiac Resuscitation -C/W post cardiac arrest care- Therapeutic Hypothermia completed, rewarmed to normal temperature #Mechanical ventilation -Extubated today in light of improving mental status and passing spontaneous breathing trials #Troponemia -Troponin 2.4>48>>61 -May be NSTEMI vs Myocardial Contusion secondary to CPR -Cardiology aware, Dr. Napoles, will trend Troponin and EKG -Medical management for now #UTI -UCx + for E.Coli sens to Zosyn -C/W ABX #HTN -Normotensive -all po meds held #DMII -Controlled -Moderate coverage scale -Accuchecks -D5 fluids #GI PPx- PPI #DVT ppx- Lovenox and SCD Full Code Discussed case with Dr. Salazar <Duran Salazar - Last Filed: 07/15/18 17:28> CCU Subjective - Physician Review Subjective (Free Text): Attestation: Patient seen and examined at the bedside with Resident Dr. Charles Hart; and I agree with her outline of plans and management documented below as discussed on AM rounds reflecting my review of all applicable clinical data, and participation in the care of the patient throughout the day in ICU; today, July 15, 2018.
[2018-07-15] MEDS ORDERED: Nitroglycerin 2% 15 INCH/30 GM TUBE TOP STA (12:10)
[2018-07-15] MEDS ORDERED: Nitroglycerin 2% Ointment Foilpak UD TOP ONE (12:12)
--- NOTE | 2018-07-15 12:14 | PCM.PROC ---
Procedures Attestation:: I certify that I have explained the specified Operation(s) or Procedure(s), risks, benefits and reasonable alternatives to the Patient and/or other person responsible. The opportunity was given to ask questions and all questions answered - Extubation Clinical Parameters: Hemodynamically Stable, Intact Cough/Gag Reflex, Spontaneous Respirations, Acceptable Vent Settings (FIO2<50%, PEEP<8, PaO2>75, pH>7.25) Weaning Criteria Met: Yes General Weaning Approaches: Pressure Support Ventilation (PSV) Weaning Patient Condition: Patient has been successfully extubated and assessed Oxygen Therapy: O2 via Venti Mask Patient Tolerated Procedure: Well Additional Comments: Off Propofol since 8AM. has been awake and appropriately responsive and following simple commands, able to lift head of the bed, and trying to mouthe words. Decision made to extubate and ETT removed as well as OGT, without difficulty.
[2018-07-15] MEDS ORDERED: Nitroglycerin 2% Ointment Foilpak UD TOP STA (12:40)
--- NOTE | 2018-07-15 13:35 | RAD ---
Date of service: 07/15/2018 HISTORY: post extubation COMPARISON: 07/15/2018 FINDINGS: LUNGS: Chronic interstitial changes PLEURA: No significant pleural effusion identified, no pneumothorax apparent. CARDIOVASCULAR: Mild aortic calcification Normal. OSSEOUS STRUCTURES: Sternal wires VISUALIZED UPPER ABDOMEN: Normal. OTHER FINDINGS: None. IMPRESSION: No active disease.
--- NOTE | 2018-07-15 14:21 | CP.PCM.PN ---
Subjective - Date & Time of Evaluation Date of Evaluation: 07/15/18 - Subjective Subjective: F/U Acute Respiratory Failure. extubated, open eyes to verbal stimuli Objective - Vital Signs/Intake and Output Vital Signs (last 24 hours): Temp Pulse Resp BP Pulse Ox 98.7 F 91 H 23 116/62 97 07/15/18 12:01 07/15/18 12:59 07/15/18 12:01 07/15/18 12:59 07/15/18 12:00 Intake and Output: 07/15/18 07/15/18 06:59 18:59 Intake Total 2020 460 Output Total 350 Balance 1670 460 - Medications Medications: Current Medications Acetaminophen (Tylenol 650mg/20.3ml Solution Ud) 975 mg NG Q6 PRN PRN Reason: Rigors Last Admin: 07/15/18 04:33 Dose: 975 mg Alprazolam (Xanax) 0.25 mg PO Q12 PRN PRN Reason: Anxiety Stop: 07/18/18 08:59 Aspirin (Aspirin Chewable) 81 mg NG DAILY [facility] Last Admin: 07/15/18 08:03 Dose: 81 mg Atorvastatin Calcium (Lipitor) 40 mg PO HS [facility] Last Admin: 07/12/18 21:23 Dose: 40 mg Carvedilol (Coreg) 3.125 mg PO Q12 [facility] Last Admin: 07/13/18 11:20 Dose: Not Given Ferrous Sulfate (Feosol) 325 mg PO DAILY [facility] Last Admin: 07/13/18 11:20 Dose: Not Given Home Med (Patient's Own Medication) 10 unit SC ACBD [facility] Last Admin: 07/12/18 17:01 Dose: Not Given Piperacillin Sod/Tazobactam (Sod 2.25 gm/ Sodium Chloride) 100 mls @ 100 mls/hr IVPB Q6 [facility]; Protocol Last Admin: 07/15/18 10:00 Dose: 100 mls/hr Sodium Chloride (Sodium Chloride 0.9%) 1,000 mls @ 150 mls/hr IV .Q6H40M [facility] Stop: 07/15/18 18:12 Last Admin: 07/15/18 01:25 Dose: 150 mls/hr Propofol (Diprivan) 1,000 mg in 100 mls @ 2.545 mls/hr IV .Q24H [facility]; Protocol Stop: 07/15/18 22:04 Last Titration: 07/15/18 09:59 Dose: 0 mcg/kg/min, 0 mls/hr Insulin Human Regular (Humulin R) 0 units SC ACCU-CHECK [facility]; Protocol Last Admin: 07/15/18 11:09 Dose: 6 units Nitroglycerin (Nitro-Bid 2% Oint) 1 ea TOP Q6 [facility] Ondansetron HCl (Zofran Inj) 4 mg IVP Q4 PRN PRN Reason: Nausea/Vomiting Last Admin: 07/12/18 23:31 Dose: 4 mg Pantoprazole Sodium (Protonix Inj) 40 mg IVP DAILY [facility] Last Admin: 07/15/18 09:43 Dose: 40 mg Phenazopyridine HCl (Pyridium) 200 mg PO TID [facility] Last Admin: 07/13/18 11:23 Dose: Not Given Ranolazine (Ranexa) 1,000 mg PO BID [facility] Last Admin: 07/13/18 11:23 Dose: Not Given - Labs Labs: 07/15/18 05:00 07/15/18 07:47 PT 12.8 Seconds (9.8-13.1) 07/14/18 12:18 INR 1.1 07/14/18 12:18 APTT 29.9 Seconds (25.6-37.1) 07/14/18 12:18 - Constitutional Appears: Chronically Ill - Head Exam Head Exam: NORMAL INSPECTION - Eye Exam Additional comments: Sluggish reaction on R eye. Prosthetic eye in left.. - ENT Exam Additional comments: Extubated, placed on Ventimask FIO2 40% - Respiratory Exam Respiratory Exam: Decreased Breath Sounds (t bases), Rhonchi - Cardiovascular Exam Cardiovascular Exam: REGULAR RHYTHM, Murmur (systolic) - GI/Abdominal Exam GI & Abdominal Exam: Soft - Extremities Exam Additional comments: Edema. L TMA. - Neurological Exam Neurological Exam: Awake Additional comments: Open eyes when calling by her name, Able to squeeze hands on commands, response to verbal stimuli - Psychiatric Exam Additional comments: calm, sedated - Skin Skin Exam: Warm Assessment and Plan (1) Respiratory failure Status: Acute (2) Cardiac arrest Status: Acute (3) Toxic metabolic encephalopathy Status: Acute (4) Elevated troponin Assessment & Plan: NSTMI Status: Acute (5) Chest pain Status: Acute (6) UTI (urinary tract infection) Status: Acute (7) Type 2 diabetes mellitus with hyperglycemia Status: Chronic (8) CKD (chronic kidney disease) Status: Chronic (9) HTN (hypertension) Status: Chronic (10) CAD (coronary artery disease) Status: Chronic (11) Hx of CABG Status: Chronic (12) Hypercholesterolemia Status: Chronic (13) Chronic low back pain Status: Chronic (14) Generalized weakness Status: Chronic (15) Anxiety Status: Chronic - Assessment and Plan (Free Text) Plan: Pt extubated, placed on Ventimask FIO2 40%, Hgb 7.5, transfused 1st unit PRBC, continue Zosyn and rest of Tx. Intensive care unit time: 40 minutes.
[2018-07-15] MEDS ORDERED: Chlorhexidine Gluconate 1 APPL/PKT TP ONE (14:50)
[2018-07-15 14:54] LABS: CALCIUM 8.3 mg/dL (8.4-10.2)
[2018-07-15] MEDS: Nitroglycerin 2% Ointment Foilpak UD TOP SCH ×2 (15:37→21:19)
--- NOTE | 2018-07-15 17:28 | CP.PCM.PN ---
Subjective - Date & Time of Evaluation Date of Evaluation: 07/15/18 Time of Evaluation: 17:27 - Subjective Subjective: extubated Objective - Vital Signs/Intake and Output Vital Signs (last 24 hours): Temp Pulse Resp BP Pulse Ox 97.7 F 87 18 117/67 93 L 07/15/18 16:24 07/15/18 16:24 07/15/18 16:24 07/15/18 16:24 07/15/18 14:00 Intake and Output: 07/15/18 07/15/18 06:59 18:59 Intake Total 2020 1210 Output Total 350 Balance 1670 1210 - Medications Medications: Current Medications Acetaminophen (Tylenol 650mg/20.3ml Solution Ud) 975 mg NG Q6 PRN PRN Reason: Rigors Last Admin: 07/15/18 04:33 Dose: 975 mg Albuterol/Ipratropium (Duoneb 3 Mg/0.5 Mg (3 Ml) Ud) 3 ml INH RQ6 [facility] Alprazolam (Xanax) 0.25 mg PO Q12 PRN PRN Reason: Anxiety Stop: 07/18/18 08:59 Aspirin (Aspirin Chewable) 81 mg NG DAILY [facility] Last Admin: 07/15/18 08:03 Dose: 81 mg Atorvastatin Calcium (Lipitor) 40 mg PO HS [facility] Last Admin: 07/12/18 21:23 Dose: 40 mg Carvedilol (Coreg) 3.125 mg PO Q12 [facility] Last Admin: 07/13/18 11:20 Dose: Not Given Enoxaparin Sodium (Lovenox) 80 mg SC DAILY [facility]; Protocol Ferrous Sulfate (Feosol) 325 mg PO DAILY [facility] Last Admin: 07/13/18 11:20 Dose: Not Given Home Med (Patient's Own Medication) 10 unit SC ACBD [facility] Last Admin: 07/12/18 17:01 Dose: Not Given Piperacillin Sod/Tazobactam (Sod 2.25 gm/ Sodium Chloride) 100 mls @ 100 mls/hr IVPB Q6 [facility]; Protocol Last Admin: 07/15/18 15:33 Dose: 100 mls/hr Propofol (Diprivan) 1,000 mg in 100 mls @ 2.545 mls/hr IV .Q24H [facility]; Protocol Stop: 07/15/18 22:04 Last Titration: 07/15/18 09:59 Dose: 0 mcg/kg/min, 0 mls/hr Insulin Human Regular (Humulin R) 0 units SC ACCU-CHECK [facility]; Protocol Last Admin: 07/15/18 11:09 Dose: 6 units Nitroglycerin (Nitro-Bid 2% Oint) 1 ea TOP Q6 [facility] Last Admin: 07/15/18 15:37 Dose: 1 ea Ondansetron HCl (Zofran Inj) 4 mg IVP Q4 PRN PRN Reason: Nausea/Vomiting Last Admin: 07/12/18 23:31 Dose: 4 mg Pantoprazole Sodium (Protonix Inj) 40 mg IVP DAILY [facility] Last Admin: 07/15/18 09:43 Dose: 40 mg Phenazopyridine HCl (Pyridium) 200 mg PO TID [facility] Last Admin: 07/13/18 11:23 Dose: Not Given Ranolazine (Ranexa) 1,000 mg PO BID [facility] Last Admin: 07/13/18 11:23 Dose: Not Given - Labs Labs: 07/15/18 05:00 07/15/18 14:00 PT 12.8 Seconds (9.8-13.1) 07/14/18 12:18 INR 1.1 07/14/18 12:18 APTT 29.9 Seconds (25.6-37.1) 07/14/18 12:18 - Constitutional Appears: Well - Head Exam Head Exam: ATRAUMATIC, NORMAL INSPECTION, NORMOCEPHALIC - Eye Exam Eye Exam: EOMI, Normal appearance, PERRL Pupil Exam: NORMAL ACCOMODATION, PERRL - ENT Exam ENT Exam: Mucous Membranes Moist, Normal Exam - Neck Exam Neck Exam: Full ROM, Normal Inspection. absent: Lymphadenopathy - Respiratory Exam Respiratory Exam: Clear to Ausculation Bilateral, NORMAL BREATHING PATTERN - Cardiovascular Exam Cardiovascular Exam: REGULAR RHYTHM, +S1, +S2. absent: Murmur - GI/Abdominal Exam GI & Abdominal Exam: Soft, Normal Bowel Sounds. absent: Tenderness - Extremities Exam Extremities Exam: Full ROM, Normal Capillary Refill, Normal Inspection. absent: Joint Swelling, Pedal Edema - Back Exam Back Exam: NORMAL INSPECTION - Neurological Exam Neurological Exam: Alert, Awake, CN II-XII Intact, Normal Gait, Oriented x3 - Psychiatric Exam Psychiatric exam: Normal Affect, Normal Mood - Skin Skin Exam: Dry, Intact, Normal Color, Warm Assessment and Plan (1) Cardiac arrest Status: Acute (2) Shock Status: Acute (3) CAD (coronary artery disease) of artery bypass graft Status: Acute (4) Acute kidney injury superimposed on chronic kidney disease Status: Acute (5) Aspiration pneumonia Status: Acute (6) Change in mental status Status: Acute (7) CAD (coronary artery disease) Status: Chronic
[2018-07-15] MEDS ORDERED: Albuterol-Ipratrop 3 mg / 0.5 (3 ml) UD INH STA (17:31)
[2018-07-15] MEDS: Enoxaparin 80 mg Syringe SC SCH (18:29)
[2018-07-15] MEDS: Albuterol-Ipratrop 3 mg / 0.5 (3 ml) UD INH SCH (19:39)
[2018-07-16] MEDS: Albuterol-Ipratrop 3 mg / 0.5 (3 ml) UD INH SCH ×4 (01:06→19:11)
[2018-07-16] MEDS: Nitroglycerin 2% Ointment Foilpak UD TOP SCH ×4 (03:47→22:16)
[2018-07-16 06:40] LABS: HEMOGLOBIN 10.9 g/dL (12.0-16.0); MEAN CORPUSCULAR HEMOGLOBIN 30.6 pg (27.0-31.0); MEAN CORPUSCULAR HGB CONC 33.3 g/dL (33.0-37.0); RBC 3.56 Mil/uL (3.80-5.20); RED CELL DISTRIBUTION WIDTH 16.9 % (11.5-14.5)
[2018-07-16 06:51] LABS: CALCIUM 8.5 mg/dL (8.4-10.2)
[2018-07-16] MEDS: Insulin Regular 100 units/ml SC SCH ×4 (08:35→23:06)
[2018-07-16] MEDS: Enoxaparin 80 mg Syringe SC SCH (08:36)
[2018-07-16] MEDS ORDERED: Enoxaparin 30 mg Syringe SC SCH (09:00)
[2018-07-16] MEDS ORDERED: Dextrose 5%/0.45% NS 1,000 ML IV SCH (13:45)
--- NOTE | 2018-07-16 14:35 | CP.PCM.PN ---
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 renal consult is requested for evaluation of increased bun/cr. pt's base line s.cr is between 1.3-2.2. pt is a poor historian, chart reviewed and history obtained from review of chart. s/p cardiac arrest, s/p extubation, following commands, back to her baseline, c/o feeling thirsty Objective - Vital Signs/Intake and Output Vital Signs (last 24 hours): Temp Pulse Resp BP Pulse Ox 98.6 F 84 16 113/54 L 96 07/16/18 12:00 07/16/18 14:00 07/16/18 14:00 07/16/18 12:00 07/16/18 14:00 Intake and Output: 07/16/18 07/16/18 06:59 18:59 Intake Total 200 140 Output Total 1900 Balance -1700 140 - Medications Medications: Current Medications Acetaminophen (Tylenol 650mg/20.3ml Solution Ud) 975 mg NG Q6 PRN PRN Reason: Rigors Last Admin: 07/15/18 04:33 Dose: 975 mg Albuterol/Ipratropium (Duoneb 3 Mg/0.5 Mg (3 Ml) Ud) 3 ml INH RQ6 [facility] Last Admin: 07/16/18 13:08 Dose: 3 ml Alprazolam (Xanax) 0.25 mg PO Q12 PRN PRN Reason: Anxiety Stop: 07/18/18 08:59 Aspirin (Aspirin Chewable) 81 mg NG DAILY [facility] Last Admin: 07/16/18 10:26 Dose: Not Given Atorvastatin Calcium (Lipitor) 40 mg PO HS [facility] Last Admin: 07/12/18 21:23 Dose: 40 mg Carvedilol (Coreg) 3.125 mg PO Q12 [facility] Last Admin: 07/13/18 11:20 Dose: Not Given Enoxaparin Sodium (Lovenox) 80 mg SC DAILY [facility]; Protocol Last Admin: 07/16/18 08:36 Dose: 80 mg Ferrous Sulfate (Feosol) 325 mg PO DAILY [facility] Last Admin: 07/13/18 11:20 Dose: Not Given Home Med (Patient's Own Medication) 10 unit SC ACBD [facility] Last Admin: 07/12/18 17:01 Dose: Not Given Piperacillin Sod/Tazobactam (Sod 2.25 gm/ Sodium Chloride) 100 mls @ 100 mls/hr IVPB Q6 [facility]; Protocol Last Admin: 07/16/18 09:19 Dose: 100 mls/hr Dextrose/Sodium Chloride (Dextrose 5%/0.45% Ns 1000 Ml) 1,000 mls @ 60 mls/hr IV .[id number] [facility] Stop: 07/17/18 13:35 Last Admin: 07/16/18 13:41 Dose: 60 mls/hr Insulin Human Regular (Humulin R) 0 units SC ACCU-CHECK [facility]; Protocol Last Admin: 07/16/18 11:42 Dose: Not Given Nitroglycerin (Nitro-Bid 2% Oint) 1 ea TOP Q6 [facility] Last Admin: 07/16/18 10:32 Dose: 1 ea Ondansetron HCl (Zofran Inj) 4 mg IVP Q4 PRN PRN Reason: Nausea/Vomiting Last Admin: 07/12/18 23:31 Dose: 4 mg Pantoprazole Sodium (Protonix Inj) 40 mg IVP DAILY [facility] Last Admin: 07/16/18 08:36 Dose: 40 mg Phenazopyridine HCl (Pyridium) 200 mg PO TID [facility] Last Admin: 07/13/18 11:23 Dose: Not Given Ranolazine (Ranexa) 1,000 mg PO BID [facility] Last Admin: 07/13/18 11:23 Dose: Not Given - Labs Labs: 07/16/18 05:30 07/16/18 05:30 PT 12.8 Seconds (9.8-13.1) 07/14/18 12:18 INR 1.1 07/14/18 12:18 APTT 29.9 Seconds (25.6-37.1) 07/14/18 12:18 - Constitutional Appears: Well, Non-toxic, No Acute Distress - Head Exam Head Exam: ATRAUMATIC, NORMOCEPHALIC - Eye Exam Eye Exam: EOMI, Normal appearance Pupil Exam: NORMAL ACCOMODATION Additional comments: left eye is blind, with prosthesis - ENT Exam ENT Exam: Mucous Membranes Dry - Neck Exam Neck Exam: Full ROM, Normal Inspection - Cardiovascular Exam Cardiovascular Exam: REGULAR RHYTHM, +S1, +S2 - GI/Abdominal Exam GI & Abdominal Exam: Soft, Normal Bowel Sounds - Rectal Exam Rectal Exam: Deferred - Neurological Exam Neurological Exam: Alert, Awake Additional comments: oriented x2 - Skin Skin Exam: Normal Color, Warm Assessment and Plan - Assessment and Plan (Free Text) Assessment: 78yo female with htn, copd, cad, s/p[ cabg, s/p multiple stents, dm, cva, s/p left TMA, s/p cornel, left eye prosthesis, dementia, recurrent uti's, chest 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 renal failure, is most likely ckd sec to HTN 2. R/o UTI 3. chest pain , r/o ACS 4. s/p cardiac arrest, sec to ? Aspiration renal function is stable follow up with cardiology
--- NOTE | 2018-07-16 16:51 | CP.PCM.PN ---
Subjective - Date & Time of Evaluation Date of Evaluation: 07/16/18 - Subjective Subjective: F/U Respiratory Failure Awake, eyes open, answer questions, confused but able to call me by my name Objective - Vital Signs/Intake and Output Vital Signs (last 24 hours): Temp Pulse Resp BP Pulse Ox 97.9 F 77 21 110/57 L 96 07/16/18 16:00 07/16/18 16:00 07/16/18 15:30 07/16/18 16:00 07/16/18 16:00 Intake and Output: 07/16/18 07/16/18 06:59 18:59 Intake Total 200 140 Output Total 1900 Balance -1700 140 - Medications Medications: Current Medications Acetaminophen (Tylenol 650mg/20.3ml Solution Ud) 975 mg NG Q6 PRN PRN Reason: Rigors Last Admin: 07/15/18 04:33 Dose: 975 mg Albuterol/Ipratropium (Duoneb 3 Mg/0.5 Mg (3 Ml) Ud) 3 ml INH RQ6 [facility] Last Admin: 07/16/18 13:08 Dose: 3 ml Alprazolam (Xanax) 0.25 mg PO Q12 PRN PRN Reason: Anxiety Stop: 07/18/18 08:59 Aspirin (Aspirin Chewable) 81 mg NG DAILY [facility] Last Admin: 07/16/18 10:26 Dose: Not Given Atorvastatin Calcium (Lipitor) 40 mg PO HS [facility] Last Admin: 07/12/18 21:23 Dose: 40 mg Carvedilol (Coreg) 3.125 mg PO Q12 [facility] Last Admin: 07/13/18 11:20 Dose: Not Given Enoxaparin Sodium (Lovenox) 80 mg SC DAILY [facility]; Protocol Last Admin: 07/16/18 08:36 Dose: 80 mg Ferrous Sulfate (Feosol) 325 mg PO DAILY [facility] Last Admin: 07/13/18 11:20 Dose: Not Given Home Med (Patient's Own Medication) 10 unit SC ACBD [facility] Last Admin: 07/12/18 17:01 Dose: Not Given Piperacillin Sod/Tazobactam (Sod 2.25 gm/ Sodium Chloride) 100 mls @ 100 mls/hr IVPB Q6 [facility]; Protocol Last Admin: 07/16/18 15:43 Dose: 100 mls/hr Dextrose/Sodium Chloride (Dextrose 5%/0.45% Ns 1000 Ml) 1,000 mls @ 60 mls/hr IV .[id number] [facility] Stop: 07/17/18 13:35 Last Admin: 07/16/18 13:41 Dose: 60 mls/hr Insulin Human Regular (Humulin R) 0 units SC ACCU-CHECK [facility]; Protocol Last Admin: 07/16/18 11:42 Dose: Not Given Nitroglycerin (Nitro-Bid 2% Oint) 1 ea TOP Q6 [facility] Last Admin: 07/16/18 15:46 Dose: 1 ea Ondansetron HCl (Zofran Inj) 4 mg IVP Q4 PRN PRN Reason: Nausea/Vomiting Last Admin: 07/12/18 23:31 Dose: 4 mg Pantoprazole Sodium (Protonix Inj) 40 mg IVP DAILY [facility] Last Admin: 07/16/18 08:36 Dose: 40 mg Phenazopyridine HCl (Pyridium) 200 mg PO TID [facility] Last Admin: 07/13/18 11:23 Dose: Not Given Ranolazine (Ranexa) 1,000 mg PO BID [facility] Last Admin: 07/13/18 11:23 Dose: Not Given - Labs Labs: 07/16/18 05:30 07/16/18 05:30 PT 12.8 Seconds (9.8-13.1) 07/14/18 12:18 INR 1.1 07/14/18 12:18 APTT 29.9 Seconds (25.6-37.1) 07/14/18 12:18 - Constitutional Appears: Chronically Ill - Head Exam Head Exam: NORMAL INSPECTION - Eye Exam Eye Exam: PERRL (R eye, prosthetic L eye) - ENT Exam ENT Exam: Normal Exam - Neck Exam Neck Exam: Normal Inspection - Respiratory Exam Respiratory Exam: Decreased Breath Sounds (at bases), Rhonchi (scattered) - Cardiovascular Exam Cardiovascular Exam: REGULAR RHYTHM, Murmur (systolic) - GI/Abdominal Exam GI & Abdominal Exam: Soft, Normal Bowel Sounds - Extremities Exam Additional comments: Edema upper extremities. L TMA - Neurological Exam Neurological Exam: Awake Additional comments: Confused, slow mentation, generalized weakness. - Psychiatric Exam Additional comments: Calm. - Skin Skin Exam: Warm Assessment and Plan (1) Respiratory failure Status: Acute (2) Cardiac arrest Status: Acute (3) Elevated troponin Assessment & Plan: NSTMI Status: Acute (4) Toxic metabolic encephalopathy Status: Acute (5) UTI (urinary tract infection) Status: Acute (6) Chest pain Status: Acute (7) Type 2 diabetes mellitus with hyperglycemia Status: Chronic (8) CKD (chronic kidney disease) Status: Chronic (9) HTN (hypertension) Status: Chronic (10) CAD (coronary artery disease) Status: Chronic (11) Hx of CABG Status: Chronic (12) Hypercholesterolemia Status: Chronic (13) Chronic low back pain Status: Chronic (14) Generalized weakness Status: Chronic (15) Anxiety Status: Chronic - Assessment and Plan (Free Text) Plan: Continue Zosyn, Lovenox, Duoneb, Ntg, Lipitor and rest of Tx. Critical care time: 38 min.
[2018-07-16] MEDS ORDERED: Chlorhexidine Gluconate 1 APPL/PKT TP ONE (22:16)
[2018-07-17] MEDS: Albuterol-Ipratrop 3 mg / 0.5 (3 ml) UD INH SCH ×3 (01:06→19:07)
[2018-07-17] MEDS: Nitroglycerin 2% Ointment Foilpak UD TOP SCH ×4 (03:04→21:36)
[2018-07-17 06:24] LABS: HEMOGLOBIN 10.3 g/dL (12.0-16.0); MEAN CELL VOLUME 92.7 fl (81.0-99.0); MEAN CORPUSCULAR HEMOGLOBIN 30.9 pg (27.0-31.0); MEAN CORPUSCULAR HGB CONC 33.4 g/dL (33.0-37.0); RBC 3.34 Mil/uL (3.80-5.20); RED CELL DISTRIBUTION WIDTH 17.2 % (11.5-14.5); WHITE BLOOD COUNT 8.4 K/uL (4.8-10.8)
[2018-07-17 06:28] LABS: CALCIUM 8.5 mg/dL (8.4-10.2)
--- NOTE | 2018-07-17 07:56 | CP.CCUPN ---
CCU Subjective - Physician Review Events Since Last Encounter (Free Text): Patient awake, on O2 supplement, no distress, no fever, no vomiting, no pressors, events reviewed CCU Objective - Vital Signs / Intake & Output Vital Signs (Last 4 hours): Vital Signs Pulse Resp BP Pulse Ox 07/17/18 06:00 72 21 108/53 L 96 07/17/18 05:14 26 H 07/17/18 04:00 76 22 122/56 L 94 L Intake and Output (Last 8hrs): Intake & Output 07/16/18 07/17/18 07/17/18 22:59 06:59 14:59 Intake Total 560 480 Output Total 550 300 Balance 10 180 Weight 187 lb Intake: IV 360 480 Intake, Piggyback 200 Output: Urine 550 300 Urethral (Méndez) 550 300 - Physical Exam Head: Positive for: Atraumatic, Normocephalic Pupils: Positive for: PERRL Conjunctiva: Positive for: Normal Mouth: Positive for: Moist Mucous Membranes Nose (Internal): Positive for: Normal Inspection Neck: Positive for: Normal Range of Motion. Negative for: JVD Respiratory/Chest: Positive for: Clear to Auscultation. Negative for: Respiratory Distress, Rales, Rhonchi Cardiovascular: Positive for: Regular Rate and Rhythm, Peripheal Pulses Present Abdomen: Positive for: Normal Bowel Sounds. Negative for: Distention Upper Extremity: Positive for: Edema, NORMAL PULSES. Negative for: Cyanosis Lower Extremity: Positive for: Edema, NORMAL PULSES Skin: Positive for: Pale Psychiatric: Positive for: Alert - Medications Active Medications: Active Medications Generic Name Dose Route Start Last Admin Trade Name Freq PRN Reason Stop Dose Admin Acetaminophen 975 mg 07/13/18 11:03 07/15/18 04:33 Tylenol 650mg/20.3ml Solution Ud NG 975 mg Q6 PRN Administration Rigors Acetaminophen 650 mg 07/16/18 22:10 07/16/18 22:19 Tylenol 650 Mg Supp [place] 650 mg Q4 PRN Administration Fever >100.4 F Albuterol/Ipratropium 3 ml 07/15/18 20:00 07/17/18 07:41 Duoneb 3 Mg/0.5 Mg (3 Ml) Ud INH 3 ml RQ6 [facility] Administration Alprazolam 0.25 mg 07/11/18 08:58 Xanax PO 07/18/18 08:59 Q12 PRN Anxiety Aspirin 81 mg 07/14/18 09:00 07/16/18 10:26 Aspirin Chewable NG Not Given DAILY [facility] Atorvastatin Calcium 40 mg 07/11/18 22:00 07/12/18 21:23 Lipitor PO 40 mg HS [facility] Administration Carvedilol 3.125 mg 07/11/18 09:15 07/13/18 11:20 Coreg PO Not Given Q12 [facility] Enoxaparin Sodium 80 mg 07/15/18 17:00 07/16/18 08:36 Lovenox SC 80 mg DAILY [facility] Administration Protocol Ferrous Sulfate 325 mg 07/11/18 09:00 07/13/18 11:20 Feosol PO Not Given DAILY [facility] Home Med 10 unit 07/12/18 07:30 07/12/18 17:01 Patient's Own Medication SC Not Given ACBD [facility] Dextrose/Sodium Chloride 1,000 mls @ 60 mls/hr 07/16/18 13:45 07/16/18 13:41 Dextrose 5%/0.45% Ns 1000 Ml IV 07/17/18 13:35 60 mls/hr .[id number] [facility] Administration Piperacillin Sod/Tazobactam 100 mls @ 100 mls/hr 07/17/18 04:00 07/17/18 03:21 Sod 2.25 gm/ Sodium Chloride IVPB 100 mls/hr Q6 [facility] Administration Protocol Insulin Human Regular 0 units 07/13/18 23:00 07/16/18 23:06 Humulin R SC Not Given ACCU-CHECK [facility] Protocol Nitroglycerin 1 ea 07/15/18 16:00 07/17/18 03:04 Nitro-Bid 2% Oint TOP Not Given Q6 [facility] Ondansetron HCl 4 mg 07/12/18 23:11 07/12/18 23:31 Zofran Inj IVP 4 mg Q4 PRN Administration Nausea/Vomiting Pantoprazole Sodium 40 mg 07/13/18 12:30 07/16/18 08:36 Protonix Inj IVP 40 mg DAILY [facility] Administration Phenazopyridine HCl 200 mg 07/11/18 13:00 07/13/18 11:23 Pyridium PO Not Given TID [facility] Ranolazine 1,000 mg 07/11/18 17:00 07/13/18 11:23 Ranexa PO Not Given BID [facility] - Patient Studies Lab Studies: Microbiology Studies 07/14/18 02:17 Blood Culture - Preliminary Blood-Thru Central Line NO GROWTH AFTER 3 DAYS 07/14/18 02:00 Blood Culture - Preliminary Blood-Thru Central Line NO GROWTH AFTER 3 DAYS 07/11/18 16:33 Blood Culture - Final Blood NO GROWTH AFTER 5 DAYS Gram Stain - Final TEST NOT PERFORMED 07/11/18 16:23 Blood Culture - Final Blood NO GROWTH AFTER 5 DAYS Gram Stain - Final TEST NOT PERFORMED Lab Studies 07/17/18 07/17/18 Range/Units 05:30 05:30 WBC 8.4 (4.8-10.8) K/uL RBC 3.34 L (3.80-5.20) Mil/uL Hgb 10.3 L (12.0-16.0) g/dL Hct 31.0 L (34.0-47.0) % MCV 92.7 (81.0-99.0) fl MCH 30.9 (27.0-31.0) pg MCHC 33.4 (33.0-37.0) g/dL RDW 17.2 H (11.5-14.5) % Plt Count 174 (130-400) K/uL Sodium 145 (132-148) mmol/l Potassium 3.7 (3.6-5.0) MMOL/L Chloride 116 H (98-107) mmol/L Carbon Dioxide 25 (22-30) mmol/L Anion Gap 8 L (10-20) BUN 34 H (7-17) mg/dl Creatinine 2.1 H (0.7-1.2) mg/dl Est GFR ( Amer) 27 Est GFR (Non-Af Amer) 23 Random Glucose 219 H (65-105) mg/dL Calcium 8.5 (8.4-10.2) mg/dL Laboratory Results - last 24 hr 07/17/18 07/17/18 05:30 05:30 WBC 8.4 RBC 3.34 L Hgb 10.3 L Hct 31.0 L MCV 92.7 MCH 30.9 MCHC 33.4 RDW 17.2 H Plt Count 174 Sodium 145 Potassium 3.7 Chloride 116 H Carbon Dioxide 25 Anion Gap 8 L BUN 34 H Creatinine 2.1 H Est GFR ( Amer) 27 Est GFR (Non-Af Amer) 23 Random Glucose 219 H Calcium 8.5 Fingerstick Blood Sugar Results: 178 Critical Care Progress Note - Nutrition Nutrition: Nutrition Category Date Time Status NPO Diet [DIET] Diets 07/14/18 Breakfast Active Assessment/Plan - Assessment and Plan (Free Text) Assessment: A/P Respiratory insufficiency, s/p cardiac arrest, ? aspiration pneumonia, NSTEMI, UTI, DM, h/o HTN, CVA, CKD - Continue meds - Pulmonary toilets - O2 supplement - Cardiology follow up - Neurology follow up - Renal follow up - DVT prophylaxis
[2018-07-17] MEDS: Enoxaparin 80 mg Syringe SC SCH (09:03)
[2018-07-17] MEDS: Insulin Regular 100 units/ml SC SCH ×4 (09:31→23:00)
--- NOTE | 2018-07-17 15:51 | CP.PCM.PN ---
Subjective - Date & Time of Evaluation Date of Evaluation: 07/17/18 - Subjective Subjective: F/U Respiratory failure open eyes to verbal, tactil stimuli, able to talk few words slowly, confused Objective - Vital Signs/Intake and Output Vital Signs (last 24 hours): Temp Pulse Resp BP Pulse Ox 98.7 F 70 21 106/57 L 96 07/17/18 08:00 07/17/18 10:00 07/17/18 15:40 07/17/18 10:00 07/17/18 10:00 Intake and Output: 07/17/18 07/17/18 06:59 18:59 Intake Total 700 Output Total 300 Balance 400 - Medications Medications: Current Medications Acetaminophen (Tylenol 650mg/20.3ml Solution Ud) 975 mg NG Q6 PRN PRN Reason: Rigors Last Admin: 07/15/18 04:33 Dose: 975 mg Acetaminophen (Tylenol 650 Mg Supp) 650 mg [place] Q4 PRN PRN Reason: Fever >100.4 F Last Admin: 07/16/18 22:19 Dose: 650 mg Albuterol/Ipratropium (Duoneb 3 Mg/0.5 Mg (3 Ml) Ud) 3 ml INH RQ6 [facility] Last Admin: 07/17/18 07:41 Dose: 3 ml Alprazolam (Xanax) 0.25 mg PO Q12 PRN PRN Reason: Anxiety Stop: 07/18/18 08:59 Aspirin (Aspirin Chewable) 81 mg NG DAILY [facility] Last Admin: 07/17/18 09:32 Dose: Not Given Atorvastatin Calcium (Lipitor) 40 mg PO HS [facility] Last Admin: 07/12/18 21:23 Dose: 40 mg Carvedilol (Coreg) 3.125 mg PO Q12 [facility] Last Admin: 07/13/18 11:20 Dose: Not Given Enoxaparin Sodium (Lovenox) 80 mg SC DAILY [facility]; Protocol Last Admin: 07/17/18 09:03 Dose: 80 mg Ferrous Sulfate (Feosol) 325 mg PO DAILY [facility] Last Admin: 07/13/18 11:20 Dose: Not Given Home Med (Patient's Own Medication) 10 unit SC ACBD [facility] Last Admin: 07/12/18 17:01 Dose: Not Given Piperacillin Sod/Tazobactam (Sod 2.25 gm/ Sodium Chloride) 100 mls @ 100 mls/hr IVPB Q6 [facility]; Protocol Last Admin: 07/17/18 09:03 Dose: 100 mls/hr Insulin Human Regular (Humulin R) 0 units SC ACCU-CHECK [facility]; Protocol Last Admin: 07/17/18 13:51 Dose: Not Given Nitroglycerin (Nitro-Bid 2% Oint) 1 ea TOP Q6 [facility] Last Admin: 07/17/18 09:01 Dose: Not Given Ondansetron HCl (Zofran Inj) 4 mg IVP Q4 PRN PRN Reason: Nausea/Vomiting Last Admin: 07/12/18 23:31 Dose: 4 mg Pantoprazole Sodium (Protonix Inj) 40 mg IVP DAILY [facility] Last Admin: 07/17/18 09:03 Dose: 40 mg Phenazopyridine HCl (Pyridium) 200 mg PO TID [facility] Last Admin: 07/13/18 11:23 Dose: Not Given Ranolazine (Ranexa) 1,000 mg PO BID [facility] Last Admin: 07/13/18 11:23 Dose: Not Given - Labs Labs: 07/17/18 05:30 07/17/18 05:30 PT 12.8 Seconds (9.8-13.1) 07/14/18 12:18 INR 1.1 07/14/18 12:18 APTT 29.9 Seconds (25.6-37.1) 07/14/18 12:18 - Constitutional Appears: Chronically Ill - Head Exam Head Exam: NORMAL INSPECTION - Eye Exam Eye Exam: PERRL (R eye, Prosthetic L eye) - ENT Exam ENT Exam: Normal Exam - Neck Exam Neck Exam: Normal Inspection - Respiratory Exam Respiratory Exam: Decreased Breath Sounds (at bases), Rhonchi - Cardiovascular Exam Cardiovascular Exam: REGULAR RHYTHM, Murmur (systolic) - GI/Abdominal Exam GI & Abdominal Exam: Soft, Normal Bowel Sounds - Extremities Exam Additional comments: Edema U/E > L/E, L TMA - Neurological Exam Neurological Exam: Awake Additional comments: Confused, slow mentation, generalized weakness. - Psychiatric Exam Additional comments: confused - Skin Skin Exam: Warm Assessment and Plan (1) Respiratory failure Status: Acute (2) Cardiac arrest Status: Acute (3) Elevated troponin Assessment & Plan: NSTMI Status: Acute (4) Toxic metabolic encephalopathy Status: Acute (5) Chest pain Status: Acute (6) UTI (urinary tract infection) Status: Acute (7) Type 2 diabetes mellitus with hyperglycemia Status: Chronic (8) CKD (chronic kidney disease) Status: Chronic (9) HTN (hypertension) Status: Chronic (10) CAD (coronary artery disease) Status: Chronic (11) Hx of CABG Status: Chronic (12) Hypercholesterolemia Status: Chronic (13) Chronic low back pain Status: Chronic (14) Generalized weakness Status: Chronic (15) Anxiety Status: Chronic - Assessment and Plan (Free Text) Plan: DNR, DNI, , on high flow O2, continue NTG, Ranexa, Zosyn and rest of treatment Critical care time: 35 min.
[2018-07-18] MEDS: Albuterol-Ipratrop 3 mg / 0.5 (3 ml) UD INH SCH ×4 (02:25→19:21)
[2018-07-18] MEDS: Nitroglycerin 2% Ointment Foilpak UD TOP SCH ×5 (04:00→23:16)
[2018-07-18] MEDS ORDERED: Albuterol-Ipratrop 3 mg / 0.5 (3 ml) UD INH STA (05:16)
--- NOTE | 2018-07-18 05:48 | CARD ---
APPROVED REPORT Date of service: 07/15/2018 EKG Measurement Heart [id number] <Conclusion> Sinus rhythm with 1st degree AV block Left axis deviation Low voltage QRS Inferior infarct, age undetermined Possible Anterolateral infarct, age undetermined Abnormal ECG
[2018-07-18] MEDS: Insulin Regular 100 units/ml SC SCH ×4 (06:05→23:16)
[2018-07-18] MEDS: Enoxaparin 80 mg Syringe SC SCH (09:33)
--- NOTE | 2018-07-18 10:43 | CP.PCM.PN ---
Objective - Vital Signs/Intake and Output Vital Signs (last 24 hours): Temp Pulse Resp BP Pulse Ox 98.8 F 78 22 124/65 96 07/18/18 08:00 07/18/18 09:51 07/18/18 08:00 07/18/18 09:51 07/18/18 06:00 Intake and Output: 07/18/18 07/18/18 06:59 18:59 Intake Total 920 Output Total 200 Balance 720 - Medications Medications: Current Medications Acetaminophen (Tylenol 650mg/20.3ml Solution Ud) 975 mg NG Q6 PRN PRN Reason: Rigors Last Admin: 07/15/18 04:33 Dose: 975 mg Acetaminophen (Tylenol 650 Mg Supp) 650 mg [place] Q4 PRN PRN Reason: Fever >100.4 F Last Admin: 07/16/18 22:19 Dose: 650 mg Albuterol/Ipratropium (Duoneb 3 Mg/0.5 Mg (3 Ml) Ud) 3 ml INH RQ6 [facility] Last Admin: 07/18/18 07:41 Dose: 3 ml Aspirin (Aspirin Chewable) 81 mg NG DAILY [facility] Last Admin: 07/18/18 09:32 Dose: Not Given Atorvastatin Calcium (Lipitor) 40 mg PO HS [facility] Last Admin: 07/12/18 21:23 Dose: 40 mg Carvedilol (Coreg) 3.125 mg PO Q12 [facility] Last Admin: 07/13/18 11:20 Dose: Not Given Enoxaparin Sodium (Lovenox) 80 mg SC DAILY [facility]; Protocol Last Admin: 07/18/18 09:33 Dose: 80 mg Ferrous Sulfate (Feosol) 325 mg PO DAILY [facility] Last Admin: 07/13/18 11:20 Dose: Not Given Home Med (Patient's Own Medication) 10 unit SC ACBD [facility] Last Admin: 07/12/18 17:01 Dose: Not Given Piperacillin Sod/Tazobactam (Sod 2.25 gm/ Sodium Chloride) 100 mls @ 100 mls/hr IVPB Q6 [facility]; Protocol Last Admin: 07/18/18 09:34 Dose: 100 mls/hr Insulin Human Regular (Humulin R) 0 units SC ACCU-CHECK [facility]; Protocol Last Admin: 07/18/18 06:05 Dose: Not Given Nitroglycerin (Nitro-Bid 2% Oint) 1 ea TOP Q6 [facility] Last Admin: 07/18/18 09:51 Dose: 1 ea Ondansetron HCl (Zofran Inj) 4 mg IVP Q4 PRN PRN Reason: Nausea/Vomiting Last Admin: 07/12/18 23:31 Dose: 4 mg Pantoprazole Sodium (Protonix Inj) 40 mg IVP DAILY [facility] Last Admin: 07/18/18 09:33 Dose: 40 mg Phenazopyridine HCl (Pyridium) 200 mg PO TID [facility] Last Admin: 07/13/18 11:23 Dose: Not Given Ranolazine (Ranexa) 1,000 mg PO BID [facility] Last Admin: 07/13/18 11:23 Dose: Not Given Sennosides (Senokot Tab) 8.6 mg PO BID [facility] - Labs Labs: 07/17/18 05:30 07/17/18 05:30 PT 12.8 Seconds (9.8-13.1) 07/14/18 12:18 INR 1.1 07/14/18 12:18 APTT 29.9 Seconds (25.6-37.1) 07/14/18 12:18 Assessment and Plan (1) Cardiac arrest Status: Acute (2) Shock Status: Acute (3) CAD (coronary artery disease) of artery bypass graft Status: Acute (4) Acute kidney injury superimposed on chronic kidney disease Status: Acute (5) Aspiration pneumonia Status: Acute (6) Change in mental status Status: Acute (7) CAD (coronary artery disease) Status: Chronic
--- NOTE | 2018-07-18 12:34 | CARD ---
APPROVED REPORT Date of service: 07/13/2018 EXAM: Two-dimensional and M-mode echocardiogram with Doppler and color Doppler. Other Information Quality : FairRhythm : NSR Technically limited study due to Limited Study INDICATION Chest Pain POST CODE BLUE Mitral Valve E/A ratio0.0 TDI E/Lateral E'0.0E/Medial E'0.0 LEFT VENTRICLE The left ventricle is normal size. There is mild to moderate concentric left ventricular hypertrophy. Left ventricle systolic function is moderately impaired. The Ejection Fraction is 30-35%. LVEF is 30-35%. Significant regional wall motion abnormalities noted. Transmitral Doppler flow pattern is Grade II-pseudonormal filling dynamics. RIGHT VENTRICLE The right ventricle is mildly dilated. The right ventricle is borderline hypertrophied. The right ventricular systolic function is normal. ATRIA The left atrium is borderline dilated. The right atrium size is normal. AORTIC VALVE The aortic valve is mildly thickened but opens well. No aortic regurgitation is present. There is no aortic valvular stenosis. There is no aortic valvular vegetation. MITRAL VALVE The mitral valve is thickened but opens well. There is no evidence of mitral valve prolapse. There is no mitral valve stenosis. Mitral regurgitation is mild to moderate. TRICUSPID VALVE The tricuspid valve is normal in structure. There is trace to mild tricuspid regurgitation. There is no tricuspid valve prolapse or vegetation. There is no tricuspid valve stenosis. PULMONIC VALVE The pulmonic valve is not well visualized. There is no pulmonic valvular regurgitation. There is no pulmonic valvular stenosis. GREAT VESSELS The aortic root is normal in size. The IVC is normal in size and collapses >50% with inspiration. PERICARDIAL EFFUSION The pericardium appears normal. There is no pleural effusion. <Conclusion> Left ventricle systolic function is moderately impaired. The Ejection Fraction is 30-35%. LVEF is 30-35%. Significant regional wall motion abnormalities noted. Transmitral Doppler flow pattern is Grade II-pseudonormal filling dynamics. Mitral regurgitation is mild to moderate.
--- NOTE | 2018-07-18 12:40 | CP.PCM.PN ---
Subjective - Date & Time of Evaluation Date of Evaluation: 07/18/18 Time of Evaluation: 12:40 - Subjective Subjective: pt is alert, awake, following simple commands, no sob, no cp, Objective - Vital Signs/Intake and Output Vital Signs (last 24 hours): Temp Pulse Resp BP Pulse Ox 98.8 F 78 22 124/65 96 07/18/18 08:00 07/18/18 09:51 07/18/18 08:00 07/18/18 09:51 07/18/18 06:00 Intake and Output: 07/18/18 07/18/18 06:59 18:59 Intake Total 920 Output Total 200 Balance 720 - Medications Medications: Current Medications Acetaminophen (Tylenol 650mg/20.3ml Solution Ud) 975 mg NG Q6 PRN PRN Reason: Rigors Last Admin: 07/15/18 04:33 Dose: 975 mg Acetaminophen (Tylenol 650 Mg Supp) 650 mg [place] Q4 PRN PRN Reason: Fever >100.4 F Last Admin: 07/16/18 22:19 Dose: 650 mg Albuterol/Ipratropium (Duoneb 3 Mg/0.5 Mg (3 Ml) Ud) 3 ml INH RQ6 [facility] Last Admin: 07/18/18 07:41 Dose: 3 ml Aspirin (Aspirin Chewable) 81 mg NG DAILY [facility] Last Admin: 07/18/18 09:32 Dose: Not Given Atorvastatin Calcium (Lipitor) 40 mg PO HS [facility] Last Admin: 07/12/18 21:23 Dose: 40 mg Carvedilol (Coreg) 3.125 mg PO Q12 [facility] Last Admin: 07/13/18 11:20 Dose: Not Given Enoxaparin Sodium (Lovenox) 80 mg SC DAILY [facility]; Protocol Last Admin: 07/18/18 09:33 Dose: 80 mg Ferrous Sulfate (Feosol) 325 mg PO DAILY [facility] Last Admin: 07/13/18 11:20 Dose: Not Given Home Med (Patient's Own Medication) 10 unit SC ACBD [facility] Last Admin: 07/12/18 17:01 Dose: Not Given Piperacillin Sod/Tazobactam (Sod 2.25 gm/ Sodium Chloride) 100 mls @ 100 mls/hr IVPB Q6 [facility]; Protocol Last Admin: 07/18/18 09:34 Dose: 100 mls/hr Insulin Human Regular (Humulin R) 0 units SC ACCU-CHECK [facility]; Protocol Last Admin: 07/18/18 12:34 Dose: 2 units Nitroglycerin (Nitro-Bid 2% Oint) 1 ea TOP Q6 [facility] Last Admin: 07/18/18 09:51 Dose: 1 ea Ondansetron HCl (Zofran Inj) 4 mg IVP Q4 PRN PRN Reason: Nausea/Vomiting Last Admin: 07/12/18 23:31 Dose: 4 mg Pantoprazole Sodium (Protonix Inj) 40 mg IVP DAILY [facility] Last Admin: 07/18/18 09:33 Dose: 40 mg Phenazopyridine HCl (Pyridium) 200 mg PO TID [facility] Last Admin: 07/13/18 11:23 Dose: Not Given Ranolazine (Ranexa) 1,000 mg PO BID [facility] Last Admin: 07/13/18 11:23 Dose: Not Given Sennosides (Senokot Tab) 8.6 mg PO BID [facility] - Labs Labs: 07/17/18 05:30 07/17/18 05:30 PT 12.8 Seconds (9.8-13.1) 07/14/18 12:18 INR 1.1 07/14/18 12:18 APTT 29.9 Seconds (25.6-37.1) 07/14/18 12:18 - Constitutional Appears: Well, No Acute Distress - Head Exam Head Exam: ATRAUMATIC, NORMAL INSPECTION, NORMOCEPHALIC - Eye Exam Eye Exam: EOMI, Normal appearance Pupil Exam: NORMAL ACCOMODATION Additional comments: rt eye is normal, left eye is prosthesis - ENT Exam ENT Exam: Mucous Membranes Moist - Neck Exam Neck Exam: Full ROM, Normal Inspection - Respiratory Exam Respiratory Exam: Clear to Ausculation Bilateral, NORMAL BREATHING PATTERN - GI/Abdominal Exam GI & Abdominal Exam: Soft, Normal Bowel Sounds - Rectal Exam Rectal Exam: Deferred - Extremities Exam Additional comments: no edema - Neurological Exam Neurological Exam: Alert, Awake Additional comments: oriented x2 - Skin Skin Exam: Normal Color, Warm Assessment and Plan - Assessment and Plan (Free Text) Assessment: 78yo female with htn, copd, cad, s/p[ cabg, s/p multiple stents, dm, cva, s/p left TMA, s/p cornel, left eye prosthesis, dementia, recurrent uti's, chest pain was admitted with chest pain [employer] again 1. renal failure, is most likely ckd sec to HTN 2. R/o UTI 3. chest pain , r/o ACS 4. s/p cardiac arrest, sec to ? Aspiration renal function is stable follow up with cardiology
--- NOTE | 2018-07-18 18:00 | CP.PCM.PN ---
Subjective - Date & Time of Evaluation Date of Evaluation: 07/18/18 - Subjective Subjective: F/U Respiratory Failure Pt awake, confused, with slow mentation. Objective - Vital Signs/Intake and Output Vital Signs (last 24 hours): Temp Pulse Resp BP Pulse Ox 98.7 F 76 22 125/72 97 07/18/18 16:00 07/18/18 17:16 07/18/18 16:02 07/18/18 17:16 07/18/18 16:00 Intake and Output: 07/18/18 07/18/18 06:59 18:59 Intake Total 920 Output Total 200 Balance 720 - Medications Medications: Current Medications Acetaminophen (Tylenol 650mg/20.3ml Solution Ud) 975 mg NG Q6 PRN PRN Reason: Rigors Last Admin: 07/15/18 04:33 Dose: 975 mg Acetaminophen (Tylenol 650 Mg Supp) 650 mg [place] Q4 PRN PRN Reason: Fever >100.4 F Last Admin: 07/16/18 22:19 Dose: 650 mg Albuterol/Ipratropium (Duoneb 3 Mg/0.5 Mg (3 Ml) Ud) 3 ml INH RQ6 [facility] Last Admin: 07/18/18 13:25 Dose: 3 ml Aspirin (Aspirin Chewable) 81 mg NG DAILY [facility] Last Admin: 07/18/18 09:32 Dose: Not Given Atorvastatin Calcium (Lipitor) 40 mg PO HS [facility] Last Admin: 07/12/18 21:23 Dose: 40 mg Carvedilol (Coreg) 3.125 mg PO Q12 [facility] Last Admin: 07/13/18 11:20 Dose: Not Given Ferrous Sulfate (Feosol) 325 mg PO DAILY [facility] Last Admin: 07/13/18 11:20 Dose: Not Given Home Med (Patient's Own Medication) 10 unit SC ACBD [facility] Last Admin: 07/12/18 17:01 Dose: Not Given Piperacillin Sod/Tazobactam (Sod 2.25 gm/ Sodium Chloride) 100 mls @ 100 mls/hr IVPB Q6 [facility]; Protocol Last Admin: 07/18/18 17:08 Dose: 100 mls/hr Insulin Human Regular (Humulin R) 0 units SC ACCU-CHECK [facility]; Protocol Last Admin: 07/18/18 17:11 Dose: Not Given Nitroglycerin (Nitro-Bid 2% Oint) 1 ea TOP Q6 [facility] Last Admin: 07/18/18 17:16 Dose: 1 ea Nystatin (Nystop Topical Powder) 1 applic TOP TID [facility] Last Admin: 07/18/18 17:08 Dose: 1 applic Ondansetron HCl (Zofran Inj) 4 mg IVP Q4 PRN PRN Reason: Nausea/Vomiting Last Admin: 07/12/18 23:31 Dose: 4 mg Pantoprazole Sodium (Protonix Inj) 40 mg IVP DAILY [facility] Last Admin: 07/18/18 09:33 Dose: 40 mg Phenazopyridine HCl (Pyridium) 200 mg PO TID [facility] Last Admin: 07/13/18 11:23 Dose: Not Given Ranolazine (Ranexa) 1,000 mg PO BID [facility] Last Admin: 07/13/18 11:23 Dose: Not Given Sennosides (Senokot Tab) 8.6 mg PO BID [facility] Last Admin: 07/18/18 17:11 Dose: 8.6 mg - Labs Labs: 07/17/18 05:30 07/17/18 05:30 PT 12.8 Seconds (9.8-13.1) 07/14/18 12:18 INR 1.1 07/14/18 12:18 APTT 29.9 Seconds (25.6-37.1) 07/14/18 12:18 - Constitutional Appears: Confused, Chronically Ill - Head Exam Head Exam: NORMAL INSPECTION - Eye Exam Eye Exam: PERRL (R eye, L eye blind) - ENT Exam ENT Exam: Normal Exam - Neck Exam Neck Exam: Normal Inspection - Respiratory Exam Respiratory Exam: Decreased Breath Sounds (at bases), Rhonchi - Cardiovascular Exam Cardiovascular Exam: REGULAR RHYTHM, Murmur (systolic) - GI/Abdominal Exam GI & Abdominal Exam: Soft - Extremities Exam Additional comments: Edema U/E > L/E, L TMA - Neurological Exam Neurological Exam: Awake Additional comments: Confused, eyes open, slow mentation, generalized weakness. - Skin Skin Exam: Warm Assessment and Plan (1) Respiratory failure Status: Acute (2) Cardiac arrest Status: Acute (3) Elevated troponin Assessment & Plan: NSTMI Status: Acute (4) Toxic metabolic encephalopathy Status: Acute (5) Chest pain Status: Acute (6) UTI (urinary tract infection) Status: Acute (7) Type 2 diabetes mellitus with hyperglycemia Status: Chronic (8) CKD (chronic kidney disease) Status: Chronic (9) HTN (hypertension) Status: Chronic (10) CAD (coronary artery disease) Status: Chronic (11) Hx of CABG Status: Chronic (12) Hypercholesterolemia Status: Chronic (13) Chronic low back pain Status: Chronic (14) Generalized weakness Status: Chronic (15) Anxiety Status: Chronic - Assessment and Plan (Free Text) Plan: Continue Mi [place]. Pt seen by Cardiology Dr Su regarding Cardiac Cath, but family refused. Critical care time: 37 min.
[2018-07-18] MEDS ORDERED: Acetaminophen 650mg/20.3ml solution UD PEG PRN (22:01)
[2018-07-19] MEDS: Albuterol-Ipratrop 3 mg / 0.5 (3 ml) UD INH SCH ×4 (01:55→19:20)
[2018-07-19] MEDS: Nitroglycerin 2% Ointment Foilpak UD TOP SCH ×4 (04:16→22:04)
[2018-07-19 06:04] LABS: HEMOGLOBIN 10.5 g/dL (12.0-16.0); MEAN CELL VOLUME 93.9 fl (81.0-99.0); MEAN CORPUSCULAR HEMOGLOBIN 31.3 pg (27.0-31.0); MEAN CORPUSCULAR HGB CONC 33.4 g/dL (33.0-37.0); RBC 3.34 Mil/uL (3.80-5.20); RED CELL DISTRIBUTION WIDTH 17.2 % (11.5-14.5); WHITE BLOOD COUNT 8.8 K/uL (4.8-10.8)
[2018-07-19] MEDS: Insulin Regular 100 units/ml SC SCH ×4 (06:18→23:47)
[2018-07-19 06:46] LABS: CALCIUM 8.8 mg/dL (8.4-10.2)
[2018-07-19] MEDS ORDERED: Sodium Chloride 0.45% 1,000 ML IV SCH (13:00)
--- NOTE | 2018-07-19 13:28 | RAD ---
Date of service: 07/19/2018 HISTORY: R/O PULMONARY EDEMA/PNA/PLEURAL EFFUSION COMPARISON: 07/15/2018 FINDINGS: LUNGS: Bilateral basilar and left perihilar opacity. Technically limited PLEURA: Examination. Bilateral small pleural effusion. No pneumothorax. CARDIOVASCULAR: Normal heart size. Sternotomy wires. Likely CABG. New nasogastric tube extends to upper abdomen. OSSEOUS STRUCTURES: No significant abnormalities. VISUALIZED UPPER ABDOMEN: Normal. OTHER FINDINGS: None. IMPRESSION: Bilateral basilar and left perihilar opacities. Possible pneumonia versus pulmonary edema. Bilateral pleural effusion. Nasogastric tube in grossly appropriate position.
--- NOTE | 2018-07-19 15:01 | CP.PCM.PN ---
Subjective - Date & Time of Evaluation Date of Evaluation: 07/19/18 Time of Evaluation: 11:00 - Subjective Subjective: F/U Respiratory Failure. Pt lethargic, eyes closed, non arousable. Objective - Vital Signs/Intake and Output Vital Signs (last 24 hours): Temp Pulse Resp BP Pulse Ox 98.4 F 77 25 H 111/55 L 95 07/19/18 12:00 07/19/18 12:00 07/19/18 12:18 07/19/18 12:00 07/19/18 12:00 Intake and Output: 07/19/18 07/19/18 06:59 18:59 Intake Total 700 160 Balance 700 160 - Medications Medications: Current Medications Acetaminophen (Tylenol 650mg/20.3ml Solution Ud) 975 mg NG Q6 PRN PRN Reason: Rigors Last Admin: 07/15/18 04:33 Dose: 975 mg Acetaminophen (Tylenol 650 Mg Supp) 650 mg [place] Q4 PRN PRN Reason: Fever >100.4 F Last Admin: 07/16/18 22:19 Dose: 650 mg Acetaminophen (Tylenol 650mg/20.3ml Solution Ud) 650 mg PEG Q6 PRN PRN Reason: Pain, Mild (1-3) Albuterol/Ipratropium (Duoneb 3 Mg/0.5 Mg (3 Ml) Ud) 3 ml INH RQ6 [facility] Last Admin: 07/19/18 13:35 Dose: 3 ml Aspirin (Aspirin Chewable) 81 mg NG DAILY [facility] Last Admin: 07/19/18 09:13 Dose: 81 mg Atorvastatin Calcium (Lipitor) 40 mg PO HS [facility] Last Admin: 07/12/18 21:23 Dose: 40 mg Carvedilol (Coreg) 3.125 mg PO Q12 [facility] Last Admin: 07/13/18 11:20 Dose: Not Given Ferrous Sulfate (Feosol) 325 mg PO DAILY [facility] Last Admin: 07/13/18 11:20 Dose: Not Given Home Med (Patient's Own Medication) 10 unit SC ACBD [facility] Last Admin: 07/12/18 17:01 Dose: Not Given Home Med (Patient's Own Medication) 1 unit TOP BID [facility] Piperacillin Sod/Tazobactam (Sod 2.25 gm/ Sodium Chloride) 100 mls @ 100 mls/hr IVPB Q6 [facility]; Protocol Last Admin: 07/19/18 09:15 Dose: 100 mls/hr Sodium Chloride (Sodium Chloride 0.45%) 1,000 mls @ 60 mls/hr IV .[id number] [facility] Stop: 07/20/18 13:00 Insulin Human Regular (Humulin R) 0 units SC ACCU-CHECK [facility]; Protocol Last Admin: 07/19/18 12:22 Dose: 12 units Nitroglycerin (Nitro-Bid 2% Oint) 1 ea TOP Q6 [facility] Last Admin: 07/19/18 09:18 Dose: 1 ea Nystatin (Nystop Topical Powder) 1 applic TOP TID [facility] Last Admin: 07/19/18 09:14 Dose: 1 applic Ondansetron HCl (Zofran Inj) 4 mg IVP Q4 PRN PRN Reason: Nausea/Vomiting Last Admin: 07/12/18 23:31 Dose: 4 mg Pantoprazole Sodium (Protonix Inj) 40 mg IVP DAILY [facility] Last Admin: 07/19/18 09:14 Dose: 40 mg Phenazopyridine HCl (Pyridium) 200 mg PO TID [facility] Last Admin: 07/13/18 11:23 Dose: Not Given Ranolazine (Ranexa) 1,000 mg PO BID [facility] Last Admin: 07/13/18 11:23 Dose: Not Given Sennosides (Senokot Tab) 8.6 mg PO BID [facility] Last Admin: 07/19/18 09:14 Dose: 8.6 mg - Labs Labs: 07/19/18 04:30 07/19/18 04:30 PT 12.8 Seconds (9.8-13.1) 07/14/18 12:18 INR 1.1 07/14/18 12:18 APTT 29.9 Seconds (25.6-37.1) 07/14/18 12:18 - Constitutional Appears: Chronically Ill - Head Exam Head Exam: NORMAL INSPECTION - Eye Exam Eye Exam: PERRL (r EYE. l EYE BLIND) - ENT Exam Additional comments: Hard of hearing R side. - Neck Exam Neck Exam: Normal Inspection - Respiratory Exam Respiratory Exam: Decreased Breath Sounds (at bases), Rhonchi - Cardiovascular Exam Cardiovascular Exam: REGULAR RHYTHM, Murmur (systolic) - GI/Abdominal Exam GI & Abdominal Exam: Soft, Normal Bowel Sounds - Extremities Exam Additional comments: Edema U/E > L/E, L TMA - Neurological Exam Additional comments: Lethargic, slow mentation, generalized weakness. - Skin Skin Exam: Warm Assessment and Plan (1) Respiratory failure Status: Acute (2) Cardiac arrest Status: Acute (3) Elevated troponin Status: Acute (4) Toxic metabolic encephalopathy Status: Acute (5) Chest pain Status: Acute (6) UTI (urinary tract infection) Status: Acute (7) Type 2 diabetes mellitus with hyperglycemia Status: Chronic (8) CKD (chronic kidney disease) Status: Chronic (9) HTN (hypertension) Status: Chronic (10) CAD (coronary artery disease) Status: Chronic (11) Hx of CABG Status: Chronic (12) Hypercholesterolemia Status: Chronic (13) Chronic low back pain Status: Chronic (14) Generalized weakness Status: Chronic (15) Anxiety Status: Chronic - Assessment and Plan (Free Text) Plan: Continue NC, Zosyn, Duoneb, ASA, Humalin R and rest of Tx.
[2018-07-19] MEDS: LOTRISONE CREAM TOP SCH (16:16)
[2018-07-19] MEDS ORDERED: Insulin Regular 100 units/ml SC STA (18:17)
--- NOTE | 2018-07-19 20:13 | CP.PCM.PN ---
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 renal consult is requested for evaluation of increased bun/cr. pt's base line s.cr is between 1.3-2.2. pt is a poor historian, chart reviewed and history obtained from review of chart. s/p cardiac arrest, s/p extubation s/p ngt placement , on ngt feeding, sleepy today Objective - Vital Signs/Intake and Output Vital Signs (last 24 hours): Temp Pulse Resp BP Pulse Ox 96.5 F L 74 21 112/54 L 93 L 07/19/18 16:00 07/19/18 18:00 07/19/18 19:17 07/19/18 18:00 07/19/18 18:00 Intake and Output: 07/19/18 07/20/18 18:59 06:59 Intake Total 1020 Balance 1020 - Medications Medications: Current Medications Acetaminophen (Tylenol 650mg/20.3ml Solution Ud) 975 mg NG Q6 PRN PRN Reason: Rigors Last Admin: 07/15/18 04:33 Dose: 975 mg Acetaminophen (Tylenol 650 Mg Supp) [address] Q4 PRN PRN Reason: Fever >100.4 F Last Admin: 07/16/18 22:19 Dose: 650 mg Acetaminophen (Tylenol 650mg/20.3ml Solution Ud) 650 mg PEG Q6 PRN PRN Reason: Pain, Mild (1-3) Albuterol/Ipratropium (Duoneb 3 Mg/0.5 Mg (3 Ml) Ud) 3 ml INH RQ6 [facility] Last Admin: 07/19/18 19:20 Dose: 3 ml Aspirin (Aspirin Chewable) 81 mg NG DAILY [facility] Last Admin: 07/19/18 09:13 Dose: 81 mg Atorvastatin Calcium (Lipitor) 40 mg PO HS [facility] Last Admin: 07/12/18 21:23 Dose: 40 mg Carvedilol (Coreg) 3.125 mg PO Q12 [facility] Last Admin: 07/13/18 11:20 Dose: Not Given Ferrous Sulfate (Feosol) 325 mg PO DAILY [facility] Last Admin: 07/13/18 11:20 Dose: Not Given Home Med (Patient's Own Medication) 10 unit SC ACBD [facility] Last Admin: 07/12/18 17:01 Dose: Not Given Home Med (Patient's Own Medication) 1 unit TOP BID [facility] Last Admin: 07/19/18 16:16 Dose: 1 unit Piperacillin Sod/Tazobactam (Sod 2.25 gm/ Sodium Chloride) 100 mls @ 100 mls/hr IVPB Q6 [facility]; Protocol Last Admin: 07/19/18 16:17 Dose: 100 mls/hr Sodium Chloride (Sodium Chloride 0.45%) 1,000 mls @ 60 mls/hr IV .[id number] [facility] Stop: 07/20/18 13:00 Last Admin: 07/19/18 13:05 Dose: 60 mls/hr Insulin Human Regular (Humulin R) 0 units SC ACCU-CHECK [facility]; Protocol Last Admin: 07/19/18 16:14 Dose: 10 units Nitroglycerin (Nitro-Bid 2% Oint) 1 ea TOP Q6 [facility] Last Admin: 07/19/18 16:20 Dose: 1 ea Nystatin (Nystop Topical Powder) 1 applic TOP TID [facility] Last Admin: 07/19/18 16:16 Dose: 1 applic Ondansetron HCl (Zofran Inj) 4 mg IVP Q4 PRN PRN Reason: Nausea/Vomiting Last Admin: 07/12/18 23:31 Dose: 4 mg Pantoprazole Sodium (Protonix Inj) 40 mg IVP DAILY [facility] Last Admin: 07/19/18 09:14 Dose: 40 mg Phenazopyridine HCl (Pyridium) 200 mg PO TID [facility] Last Admin: 07/13/18 11:23 Dose: Not Given Ranolazine (Ranexa) 1,000 mg PO BID [facility] Last Admin: 07/13/18 11:23 Dose: Not Given Sennosides (Senokot Tab) 8.6 mg PO BID [facility] Last Admin: 07/19/18 16:16 Dose: 8.6 mg - Labs Labs: 07/19/18 04:30 07/19/18 04:30 PT 12.8 Seconds (9.8-13.1) 07/14/18 12:18 INR 1.1 07/14/18 12:18 APTT 29.9 Seconds (25.6-37.1) 07/14/18 12:18 - Constitutional Appears: Non-toxic, No Acute Distress - Head Exam Head Exam: ATRAUMATIC, NORMOCEPHALIC - Eye Exam Eye Exam: EOMI, Normal appearance Additional comments: conj:pink, left eye is blind - ENT Exam ENT Exam: Mucous Membranes Moist - Neck Exam Neck Exam: Full ROM, Normal Inspection - Respiratory Exam Respiratory Exam: Clear to Ausculation Bilateral, NORMAL BREATHING PATTERN - Cardiovascular Exam Cardiovascular Exam: REGULAR RHYTHM, +S1, +S2 - GI/Abdominal Exam GI & Abdominal Exam: Soft, Normal Bowel Sounds - Extremities Exam Extremities Exam: Pedal Edema - Neurological Exam Additional comments: sleepy, arousable Assessment and Plan - Assessment and Plan (Free Text) Assessment: 78yo female with htn, copd, cad, s/p cabg, s/p multiple stents, dm, cva, s/p left TMA, s/p cornel, left eye prosthesis, dementia, recurrent uti's, chest pain, 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 renal failure, is most likely ckd sec to HTN 2. R/o UTI 3. chest pain , r/o ACS 4. s/p cardiac arrest, sec to ? Aspiration 5.Hypokalemia renal function is slightly worse supplement K+, check mg level follow up with cardiology over all prognosis is guarded
[2018-07-19] MEDS ORDERED: Potassium Chloride 20 mEq/15 ml LIQ UD NG ONE (23:58)
[2018-07-20] MEDS: Albuterol-Ipratrop 3 mg / 0.5 (3 ml) UD INH SCH ×3 (01:12→13:24)
[2018-07-20] MEDS ORDERED: Albuterol-Ipratrop 3 mg / 0.5 (3 ml) UD ONE (04:46)
[2018-07-20] MEDS ORDERED: Albuterol-Ipratrop 3 mg / 0.5 (3 ml) UD INH STA (04:47)
[2018-07-20] MEDS: Nitroglycerin 2% Ointment Foilpak UD TOP SCH ×3 (05:00→16:08)
[2018-07-20 05:58] LABS: HEMOGLOBIN 11.2 g/dL (12.0-16.0); MEAN CELL VOLUME 94.5 fl (81.0-99.0); MEAN CORPUSCULAR HEMOGLOBIN 31.2 pg (27.0-31.0); MEAN CORPUSCULAR HGB CONC 33.1 g/dL (33.0-37.0); RBC 3.58 Mil/uL (3.80-5.20); RED CELL DISTRIBUTION WIDTH 17.3 % (11.5-14.5); WHITE BLOOD COUNT 8.6 K/uL (4.8-10.8)
[2018-07-20 06:05] LABS: CALCIUM 9.1 mg/dL (8.4-10.2)
[2018-07-20] MEDS: LOTRISONE CREAM TOP SCH ×2 (09:27→17:03)
[2018-07-20] MEDS: Insulin Regular 100 units/ml SC SCH ×5 (09:28→16:57)
--- NOTE | 2018-07-20 14:22 | CP.CCUPN ---
<Salomon Hart - Last Filed: 07/20/18 16:25> CCU Subjective - Physician Review Subjective (Free Text): Patient is an 78 y/o female with pmhx of DMII, HTN, CKD, CVA admitted with complaints of chest pain s/p cardiac arrest, now obtunded, minimally responsive. DNR/DNI Overnight desaturated to 81% and was placed on High Flow O2. S: Pt seen and examined in the am. Family at bedside. Eyes open, responds to deep sternal rub. 07/20/18 16:11 CCU Objective - Vital Signs / Intake & Output Vital Signs (Last 4 hours): Vital Signs Temp Pulse Resp Pulse Ox 07/20/18 12:00 97.6 F 99 H 40 H 100 07/20/18 11:14 20 Intake and Output (Last 8hrs): Intake & Output 07/19/18 07/20/18 07/20/18 22:59 06:59 14:59 Intake Total 620 110 406 Balance 620 110 406 Weight 187 lb Intake: IV 420 60 6 Intake, Piggyback 100 Tube Feeding 200 200 Free Water Flush 50 100 Other: # Voids Urethral (Méndez) 1 1 # Bowel Movements 1 - Physical Exam Physical Exam Limitations: Positive for: Altered Mental Status (obtunded, minimally responsive to painful stimulus) Head: Positive for: Atraumatic, Normocephalic Pupils: Positive for: PERRL, Other (+pupillary reflex) Extroacular Muscles: Positive for: EOMI Conjunctiva: Positive for: Normal Mouth: Positive for: Moist Mucous Membranes Pharnyx: Positive for: Other Nose (Internal): Positive for: Normal Inspection Neck: Positive for: Normal Range of Motion. Negative for: JVD Respiratory/Chest: Positive for: Clear to Auscultation. Negative for: Respiratory Distress, Rales, Rhonchi Cardiovascular: Positive for: Regular Rate and Rhythm, Peripheal Pulses Present Abdomen: Positive for: Normal Bowel Sounds. Negative for: Distention Upper Extremity: Positive for: Edema, NORMAL PULSES. Negative for: Cyanosis Lower Extremity: Positive for: Edema, NORMAL PULSES Skin: Positive for: Pale Psychiatric: Positive for: Alert - Medications Active Medications: Active Medications Generic Name Dose Route Start Last Admin Trade Name Freq PRN Reason Stop Dose Admin Acetaminophen 975 mg 07/13/18 11:03 07/15/18 04:33 Tylenol 650mg/20.3ml Solution Ud NG 975 mg Q6 PRN Administration Rigors Acetaminophen 650 mg 07/16/18 22:10 07/16/18 22:19 Tylenol 650 Mg Supp MI 650 mg Q4 PRN Administration Fever >100.4 F Acetaminophen 650 mg 07/18/18 22:01 Tylenol 650mg/20.3ml Solution Ud PEG Q6 PRN Pain, Mild (1-3) Albuterol/Ipratropium 3 ml 07/15/18 20:00 07/20/18 13:24 Duoneb 3 Mg/0.5 Mg (3 Ml) Ud INH 3 ml RQ6 [facility] Administration Aspirin 81 mg 07/14/18 09:00 07/20/18 09:32 Aspirin Chewable NG 81 mg DAILY [facility] Administration Atorvastatin Calcium 40 mg 07/11/18 22:00 07/12/18 21:23 Lipitor PO 40 mg HS [facility] Administration Carvedilol 3.125 mg 07/11/18 09:15 07/13/18 11:20 Coreg PO Not Given Q12 [facility] Ferrous Sulfate 325 mg 07/11/18 09:00 07/13/18 11:20 Feosol PO Not Given DAILY [facility] Home Med 10 unit 07/12/18 07:30 07/12/18 17:01 Patient's Own Medication SC Not Given ACBD [facility] Home Med 1 unit 07/19/18 17:00 07/20/18 09:27 Patient's Own Medication TOP 1 unit BID [facility] Administration Piperacillin Sod/Tazobactam 100 mls @ 100 mls/hr 07/17/18 04:00 07/20/18 09:33 Sod 2.25 gm/ Sodium Chloride IVPB 100 mls/hr Q6 [facility] Administration Protocol Insulin Human Regular 0 units 07/13/18 23:00 07/20/18 09:29 Humulin R SC 6 units ACCU-CHECK [facility] Administration Protocol Nitroglycerin 1 ea 07/15/18 16:00 07/20/18 13:06 Nitro-Bid 2% Oint TOP Not Given Q6 [facility] Nystatin 1 applic 07/18/18 17:00 07/20/18 13:07 Nystop Topical Powder TOP Not Given TID [facility] Ondansetron HCl 4 mg 07/12/18 23:11 07/12/18 23:31 Zofran Inj IVP 4 mg Q4 PRN Administration Nausea/Vomiting Phenazopyridine HCl 200 mg 07/11/18 13:00 07/13/18 11:23 Pyridium PO Not Given TID [facility] Ranolazine 1,000 mg 07/11/18 17:00 07/13/18 11:23 Ranexa PO Not Given BID [facility] Sennosides 8.6 mg 07/18/18 09:30 07/20/18 09:33 Senokot Tab PO 8.6 mg BID [facility] Administration - Patient Studies Lab Studies: Lab Studies 07/20/18 07/20/18 07/20/18 Range/Units 12:06 04:51 04:20 WBC (4.8-10.8) K/uL RBC (3.80-5.20) Mil/uL Hgb (12.0-16.0) g/dL Hct (34.0-47.0) % MCV (81.0-99.0) fl MCH (27.0-31.0) pg MCHC (33.0-37.0) g/dL RDW (11.5-14.5) % Plt Count (130-400) K/uL Sodium 147 (132-148) mmol/l Potassium 3.9 (3.6-5.0) MMOL/L Chloride 117 H (98-107) mmol/L Carbon Dioxide 25 (22-30) mmol/L Anion Gap 9 L (10-20) BUN 42 H (7-17) mg/dl Creatinine 2.9 H (0.7-1.2) mg/dl Est GFR ( Amer) 19 Est GFR (Non-Af Amer) 16 POC Glucose (mg/dL) 337 H 275 H (65-110) mg/dL Random Glucose 276 H (65-105) mg/dL Calcium 9.1 (8.4-10.2) mg/dL 07/20/18 07/20/18 07/19/18 Range/Units 04:20 03:11 20:55 WBC 8.6 (4.8-10.8) K/uL RBC 3.58 L (3.80-5.20) Mil/uL Hgb 11.2 L (12.0-16.0) g/dL Hct 33.8 L (34.0-47.0) % MCV 94.5 (81.0-99.0) fl MCH 31.2 H (27.0-31.0) pg MCHC 33.1 (33.0-37.0) g/dL RDW 17.3 H (11.5-14.5) % Plt Count 237 (130-400) K/uL Sodium (132-148) mmol/l Potassium (3.6-5.0) MMOL/L Chloride (98-107) mmol/L Carbon Dioxide (22-30) mmol/L Anion Gap (10-20) BUN (7-17) mg/dl Creatinine (0.7-1.2) mg/dl Est GFR ( Amer) Est GFR (Non-Af Amer) POC Glucose (mg/dL) 287 H 336 H (65-110) mg/dL Random Glucose (65-105) mg/dL Calcium (8.4-10.2) mg/dL 07/19/18 07/19/18 07/19/18 Range/Units 18:09 16:09 13:46 WBC (4.8-10.8) K/uL RBC (3.80-5.20) Mil/uL Hgb (12.0-16.0) g/dL Hct (34.0-47.0) % MCV (81.0-99.0) fl MCH (27.0-31.0) pg MCHC (33.0-37.0) g/dL RDW (11.5-14.5) % Plt Count (130-400) K/uL Sodium (132-148) mmol/l Potassium (3.6-5.0) MMOL/L Chloride (98-107) mmol/L Carbon Dioxide (22-30) mmol/L Anion Gap (10-20) BUN (7-17) mg/dl Creatinine (0.7-1.2) mg/dl Est GFR ( Amer) Est GFR (Non-Af Amer) POC Glucose (mg/dL) 353 H 406 H* 451 H* (65-110) mg/dL Random Glucose (65-105) mg/dL Calcium (8.4-10.2) mg/dL 07/19/18 Range/Units 11:45 WBC (4.8-10.8) K/uL RBC (3.80-5.20) Mil/uL Hgb (12.0-16.0) g/dL Hct (34.0-47.0) % MCV (81.0-99.0) fl MCH (27.0-31.0) pg MCHC (33.0-37.0) g/dL RDW (11.5-14.5) % Plt Count (130-400) K/uL Sodium (132-148) mmol/l Potassium (3.6-5.0) MMOL/L Chloride (98-107) mmol/L Carbon Dioxide (22-30) mmol/L Anion Gap (10-20) BUN (7-17) mg/dl Creatinine (0.7-1.2) mg/dl Est GFR ( Amer) Est GFR (Non-Af Amer) POC Glucose (mg/dL) 461 H* (65-110) mg/dL Random Glucose (65-105) mg/dL Calcium (8.4-10.2) mg/dL Laboratory Results - last 24 hr 07/19/18 07/19/18 07/19/18 11:45 13:46 16:09 WBC RBC Hgb Hct MCV MCH MCHC RDW Plt Count Sodium Potassium Chloride Carbon Dioxide Anion Gap BUN Creatinine Est GFR ( Amer) Est GFR (Non-Af Amer) POC Glucose (mg/dL) 461 H* 451 H* 406 H* Random Glucose Calcium 07/19/18 07/19/18 07/20/18 18:09 20:55 03:11 WBC RBC Hgb Hct MCV MCH MCHC RDW Plt Count Sodium Potassium Chloride Carbon Dioxide Anion Gap BUN Creatinine Est GFR ( Amer) Est GFR (Non-Af Amer) POC Glucose (mg/dL) 353 H 336 H 287 H Random Glucose Calcium 07/20/18 07/20/18 07/20/18 04:20 04:20 04:51 WBC 8.6 RBC 3.58 L Hgb 11.2 L Hct 33.8 L MCV 94.5 MCH 31.2 H MCHC 33.1 RDW 17.3 H Plt Count 237 Sodium 147 Potassium 3.9 Chloride 117 H Carbon Dioxide 25 Anion Gap 9 L BUN 42 H Creatinine 2.9 H Est GFR ( Amer) 19 Est GFR (Non-Af Amer) 16 POC Glucose (mg/dL) 275 H Random Glucose 276 H Calcium 9.1 07/20/18 12:06 WBC RBC Hgb Hct MCV MCH MCHC RDW Plt Count Sodium Potassium Chloride Carbon Dioxide Anion Gap BUN Creatinine Est GFR ( Amer) Est GFR (Non-Af Amer) POC Glucose (mg/dL) 337 H Random Glucose Calcium Fingerstick Blood Sugar Results: 276 Critical Care Progress Note - Nutrition Nutrition: Nutrition Category Date Time Status NPO Diet [DIET] Diets 07/14/18 Breakfast Active Assessment/Plan - Assessment and Plan (Free Text) Assessment: Patient is an 78 y/o female with pmhx of DMII, HTN, CKD, CVA admitted with complaints of chest pain s/p cardiac arrest, now obtunded, minimally responsive. Poor prognosis. DNR/DNI #AMS -GCS 6 -No improvement -Etiology unknown, may be 2/2 to hypoxic ischemic encephalopathy post cardiac arrest #S/P Cardiac Resuscitation -Hemodynamically stable -Acute on chronic CHF. S/P Lasix 80IV -Echo (07/13): EF 30-35%, moderately impaired LV function -Advised by Tube Mounter, Dr. Su, not to start pt on ionotropic agents #Acute on CKD -Likely prerenal. Renal hypoperfusion due to low cardiac output #Hypoxic respiratory failure -Likely 2/2 to pulmonary venous congestion as evident by Cxray findings from 07/19 -Saturating 99-100% on High flow O2 #UTI -UCx + for E.Coli sens to Zosyn -C/W ABX #HTN -Normotensive -all po meds held #DMII -Controlled -Moderate coverage scale -Accuchecks -D5 fluids #GI PPx- PPI #DVT ppx- Lovenox and SCD DNR/DNI <Duran Salazar - Last Filed: 07/20/18 18:03> CCU Subjective - Physician Review Subjective (Free Text): Attestation: Patient seen and examined at the bedside with Resident Dr. Charles Hart; and I agree with her outline of plans and management documented below as discussed on AM rounds reflecting my review of all applicable clinical data, and participation in the care of the patient throughout the day in ICU; today, July 20, 2018.
[2018-07-20 15:26] VITALS: O2SAT 99
[2018-07-20 16:08] VITALS: BP 95/49; TEMP 97.4
[2018-07-20 16:09] VITALS: PULSE 90
[2018-07-20 16:21] VITALS: RESP 24
--- NOTE | 2018-07-20 16:28 | CP.PCM.PN ---
Subjective - Date & Time of Evaluation Date of Evaluation: 07/20/18 Time of Evaluation: 12:00 - Subjective Subjective: F/U Acute Respiratory Failure, S/P Cardiac Arrest. Status: DNR/DNI. eyes open,minimal response to tactil stimuli, Patient, family at bedside Objective - Vital Signs/Intake and Output Vital Signs (last 24 hours): Temp Pulse Resp BP Pulse Ox 97.4 F L 90 24 95/49 L 99 07/20/18 16:00 07/20/18 16:08 07/20/18 15:50 07/20/18 16:08 07/20/18 16:00 Intake and Output: 07/20/18 07/20/18 06:59 18:59 Intake Total 290 706 Balance 290 706 - Medications Medications: Current Medications Acetaminophen (Tylenol 650mg/20.3ml Solution Ud) 975 mg NG Q6 PRN PRN Reason: Rigors Last Admin: 07/15/18 04:33 Dose: 975 mg Acetaminophen (Tylenol 650 Mg Supp) 650 mg HI Q4 PRN PRN Reason: Fever >100.4 F Last Admin: 07/16/18 22:19 Dose: 650 mg Acetaminophen (Tylenol 650mg/20.3ml Solution Ud) 650 mg PEG Q6 PRN PRN Reason: Pain, Mild (1-3) Albuterol/Ipratropium (Duoneb 3 Mg/0.5 Mg (3 Ml) Ud) 3 ml INH RQ6 [facility] Last Admin: 07/20/18 13:24 Dose: 3 ml Aspirin (Aspirin Chewable) 81 mg NG DAILY [facility] Last Admin: 07/20/18 09:32 Dose: 81 mg Atorvastatin Calcium (Lipitor) 40 mg PO HS [facility] Last Admin: 07/12/18 21:23 Dose: 40 mg Carvedilol (Coreg) 3.125 mg PO Q12 [facility] Last Admin: 07/13/18 11:20 Dose: Not Given Ferrous Sulfate (Feosol) 325 mg PO DAILY [facility] Last Admin: 07/13/18 11:20 Dose: Not Given Home Med (Patient's Own Medication) 10 unit SC ACBD [facility] Last Admin: 07/12/18 17:01 Dose: Not Given Home Med (Patient's Own Medication) 1 unit TOP BID [facility] Last Admin: 07/20/18 09:27 Dose: 1 unit Piperacillin Sod/Tazobactam (Sod 2.25 gm/ Sodium Chloride) 100 mls @ 100 mls/hr IVPB Q6 [facility]; Protocol Last Admin: 07/20/18 09:33 Dose: 100 mls/hr Insulin Human Regular (Humulin R) 0 units SC ACCU-CHECK [facility]; Protocol Last Admin: 07/20/18 09:29 Dose: 6 units Nitroglycerin (Nitro-Bid 2% Oint) 1 ea TOP Q6 [facility] Last Admin: 07/20/18 16:08 Dose: Not Given Nystatin (Nystop Topical Powder) 1 applic TOP TID [facility] Last Admin: 07/20/18 13:07 Dose: Not Given Ondansetron HCl (Zofran Inj) 4 mg IVP Q4 PRN PRN Reason: Nausea/Vomiting Last Admin: 07/12/18 23:31 Dose: 4 mg Phenazopyridine HCl (Pyridium) 200 mg PO TID [facility] Last Admin: 07/13/18 11:23 Dose: Not Given Ranolazine (Ranexa) 1,000 mg PO BID [facility] Last Admin: 07/13/18 11:23 Dose: Not Given Sennosides (Senokot Tab) 8.6 mg PO BID [facility] Last Admin: 07/20/18 09:33 Dose: 8.6 mg - Labs Labs: 07/20/18 04:20 07/20/18 04:20 PT 12.8 Seconds (9.8-13.1) 07/14/18 12:18 INR 1.1 07/14/18 12:18 APTT 29.9 Seconds (25.6-37.1) 07/14/18 12:18 - Constitutional Appears: Chronically Ill - Head Exam Head Exam: NORMAL INSPECTION - Eye Exam Additional comments: L ete prosthesis, R pupil slugish response to light - ENT Exam ENT Exam: Mucous Membranes Dry Additional comments: high flow O2 - Neck Exam Neck Exam: Normal Inspection - Respiratory Exam Respiratory Exam: Decreased Breath Sounds (at bases, scattered ronchi) - Cardiovascular Exam Cardiovascular Exam: REGULAR RHYTHM - GI/Abdominal Exam GI & Abdominal Exam: Soft, Normal Bowel Sounds - Extremities Exam Additional comments: edema U/E > L/E , L TMA - Neurological Exam Additional comments: eyes open, minimal response to tactil stimuli - Skin Skin Exam: Warm Assessment and Plan (1) Respiratory failure Status: Acute (2) Cardiac arrest Status: Acute (3) Elevated troponin Assessment & Plan: NSTMI Status: Acute (4) Toxic metabolic encephalopathy Assessment & Plan: Hypoxic Status: Acute (5) Chest pain Status: Acute (6) UTI (urinary tract infection) Status: Acute (7) Type 2 diabetes mellitus with hyperglycemia Status: Chronic (8) CKD (chronic kidney disease) Status: Chronic (9) HTN (hypertension) Status: Chronic (10) CAD (coronary artery disease) Status: Chronic (11) Hx of CABG Status: Chronic (12) Hypercholesterolemia Status: Chronic (13) Chronic low back pain Status: Chronic (14) Generalized weakness Status: Chronic (15) Anxiety Status: Chronic - Assessment and Plan (Free Text) Plan: low O2 sat, on high flow O2, prognosis poor, discussed with Patient's family, DNR, DNI
--- NOTE | 2018-07-20 18:08 | CP.PCM.PRO ---
Pronouncement of Note - Clinical Findings Physical Exam: No Response Verbal/Painful Stimuli, Absent Peripheral Puls es{Carotid & Femoral}, Absent Heart & Breath Sounds, No Pupillary Light Reflex, No Corneal Reflex, Pupils Fixed & Dilated, Absence of Vital Signs - Pronouncement Time Time of Pronouncement of : 17:36 - Notifications Pronouncement Notifications: Family Notified, Atending Notified Substance Abuse Clinician Notified: No - Autopsy Autopsy Requested: No [place] [id number]
--- NOTE | 2018-07-27 12:55 | PQF ---
PROVIDER RESPONSE TEXT: NSTEMI ,and Acute on Chronic Systolic CHF , Cardiogenic Shock due to NSTEMI, CAD REVIEWER QUERY TEXT: Documentation Clarification Your help is requested in clarifying the following clinical documentation, if you can please further specify in the medical record and discharge summary cause or source of pt's chest pain. The patient's Clinical Indicators include: History and Physical "Pt was brought to ER [facility] via ems for evaluation of chest pain." Query created by: Gabby Carrasco on 07/21/2018 4:42 PM Electronically signed by: Sridhar Oliver MD 07/27/2018 12:52 PM
--- NOTE | 2018-07-27 12:56 | PQF ---
PROVIDER RESPONSE TEXT: Ckd stage 4 Cardio Jose REVIEWER QUERY TEXT: Kidney Disease, Chronic CKD Stage Chronic Kidney Disease (CKD) is documented in the Medical Record. Please specify the disease stage ( includes probable or suspected) Such as: -- Chronic kidney disease Stage 1 -- Chronic kidney disease Stage 2 -- Chronic kidney disease Stage 3 -- Chronic kidney disease Stage 4 -- Chronic kidney disease Stage 5 -- Chronic kidney disease Stage 5, requiring dialysis -- End Stage Renal Disease -- Other, please specify BUN: 32->32->33->32->33->35->35->35->31->31 Creatinine: 1.6->1.6->1.8->1.8->1.7->1.9->2.0->1.9->2.0->2.0 Est GFR (Afri/Amer); 38->38->33->33-.35->31->29->31->29-.29 Est GFR (non-Af Amer):31->31->27->27->29->25->24->25->24->24 H and P: hx. 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 Assess: 1 Chest pain Status: Acute 2. UTI Status: Acute 3. Type 2 DM with hyperglycemia : Chronic 4 CKD : Chronic 5 HTN : Chronic 6 CAD : Chronic 7 Hx of CABG Status: Chronic etc. 07/14 Renal progress note: renal failure, is most likely ckd sec to HTN 2. R/o UTI 3. chest pain , r/o ACS 4. s/p cardiac arrest, sec to ? Aspiration Stages are defined by the [employer] as follows: CKD Stage I GFR >= 90 ml / min per 1.73 m2 and persistent albuminuria CKD Stage 2 GFR between 60 and 89 with persistent albuminuria CKD Stage 3 GFR between 30 and 59 CKD Stage 4 GFR between 15 and 29 CKD Stage 5 GFR between <15 or End Stage Renal Disease The patient's Clinical Indicators include: xx Query created by: Viji Lopez on 07/15/2018 10:47 AM Electronically signed by: Sridhar Oliver MD 07/27/2018 12:52 PM
== END 2018-07-20 21:30 | DRG 569 ==
LOC: H.ER 20:54 → H.ERHOLD 07-11 00:31 → H.TEL 07-11 02:42 → OBSVTOIN 07-12 20:28 → H.ICU/CCU 07-13 08:18
PROVIDERS: ADMIT Internal Medicine Pulmonary Disease; ATTEND Internal Medicine Pulmonary Disease
PROC: 0BH17EZ Insertion of Endotracheal Airway into Trachea, Via Natural or Artificial Opening (ICD-10-PCS; principal; 2018-07-13)
PROC: 5A1945Z Respiratory Ventilation, 24-96 Consecutive Hours (ICD-10-PCS; 2018-07-13)
PROC: 06HM33Z Insertion of Infusion Device into Right Femoral Vein, Percutaneous Approach (ICD-10-PCS; 2018-07-13)
PROC: 5A12012 Performance of Cardiac Output, Single, Manual (ICD-10-PCS; 2018-07-13)
PROC: 30233N1 Transfusion of Nonautologous Red Blood Cells into Peripheral Vein, Percutaneous Approach (ICD-10-PCS; 2018-07-15)
DX: N39.0 Urinary tract infection, site not specified (principal); G92 Toxic encephalopathy; N17.9 Acute kidney failure, unspecified; J69.0 Pneumonitis due to inhalation of food and vomit; J96.01 Acute respiratory failure with hypoxia; G93.1 Anoxic brain damage, not elsewhere classified; I21.4 Non-ST elevation (NSTEMI) myocardial infarction; I50.23 Acute on chronic systolic (congestive) heart failure; E11.22 Type 2 diabetes mellitus with diabetic chronic kidney disease; E11.65 Type 2 diabetes mellitus with hyperglycemia; I13.0 Hypertensive heart and chronic kidney disease with heart failure and stage 1 through stage 4 chronic kidney disease, or unspecified chronic kidney disease; F03.90 Unspecified dementia, unspecified severity, without behavioral disturbance, psychotic disturbance, mood disturbance, and anxiety; J44.9 Chronic obstructive pulmonary disease, unspecified; I46.9 Cardiac arrest, cause unspecified; I47.2 Ventricular tachycardia; E87.5 Hyperkalemia; E87.6 Hypokalemia; R57.0 Cardiogenic shock; N18.4 Chronic kidney disease, stage 4 (severe); R07.89 Other chest pain; Z95.5 Presence of coronary angioplasty implant and graft; I25.810 Atherosclerosis of coronary artery bypass graft(s) without angina pectoris; Z88.0 Allergy status to penicillin; Z91.018 Allergy to other foods; E78.00 Pure hypercholesterolemia, unspecified; K29.70 Gastritis, unspecified, without bleeding; F32.9 Major depressive disorder, single episode, unspecified; E78.5 Hyperlipidemia, unspecified; E03.9 Hypothyroidism, unspecified; Z95.0 Presence of cardiac pacemaker; G89.29 Other chronic pain; F41.9 Anxiety disorder, unspecified; E86.0 Dehydration; D63.8 Anemia in other chronic diseases classified elsewhere; Z86.73 Personal history of transient ischemic attack (TIA), and cerebral infarction without residual deficits; B96.20 Unspecified Escherichia coli [E. coli] as the cause of diseases classified elsewhere; Z66 Do not resuscitate; H54.62 Unqualified visual loss, left eye, normal vision right eye